=== PATIENT | female | born 1960 | race Caucasian/White ===

== ENCOUNTER 2020-07-04 00:05 | Emergency (ER) | payer OTHER ==
[2020-07-04 00:21] VITALS: BP 130/71
[2020-07-04] MEDS ORDERED: LIDOCAINE 1% 2 ML VIAL MC ONE (01:27)
[2020-07-04] MEDS ORDERED: cefTRIAXone 1 GM VIAL IM STA (01:27)
--- NOTE | 2020-07-04 01:41 | ED Physician Documentation ---
PD HPI URI - Stated complaint Stated Complaint: BACK PX/COUGH - Chief complaint Chief Complaint: Heent - History obtained from History obtained from: Patient, Family - History of Present Illness Timing - onset: How many days ago (10) Timing duration: Days (10) Timing details: Gradual onset, Still present Associated symptoms: Dry cough, Chest pain. No: Fever, Dyspnea Contributing factors: No: Sick contact Improves by: Rest Worsened by: Activity, Breathing, Position Similar symptoms before: Has not had sx before Recently seen: Not recently seen - Additional information Additional information: Previously well 60-year-old female with a history of Crohn's disease with an ileostomy in place has developed a cough for the past 10 days. She has now developed some pain in her right scapular area that is much worse with coughing and has led to some spasm of the area where she has had pain for hours. She does not feel particularly ill by her description. She states that she is been hydrating adequately, as soon as she developed the muscle spasm, she began hydrating. Review of Systems Constitutional: denies: Fever, Chills Eyes: denies: Decreased vision Ears: denies: Ear pain Nose: denies: Congestion Throat: reports: Sore throat Cardiac: reports: Chest pain / pressure. denies: Palpitations, Pedal edema, Calf pain Respiratory: reports: Cough. 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 : None HEENT: None Psych: None Musculoskeletal: None Derm: None - Past Surgical History Past Surgical History: Yes General: Bowel surgery /FLOWER PLANTER: section Derm: Other - Present Medications Home Medications: Ambulatory Orders Medication Instructions Recorded Confirmed Ascorbic Acid/Multivit-Min 1 packet PO DAILY 03/30/16 03/30/16 [Emergen-C Immune Plus Packet] Hydrocodone/Acetaminophen [[place] 1 each PO Q6H PRN #20 tablet 04/28/16 5-325 Tablet] Ondansetron HCl [Zofran] 4 mg PO Q6H PRN #20 tablet 04/28/16 Azithromycin [Zithromax] 250 mg PO DAILY #6 tablet 07/04/20 - Allergies Allergies/Adverse Reactions: Allergies Allergy/AdvReac Type Severity Reaction Status Date / Time Penicillins Allergy Anaphylaxis Verified 07/04/20 00:21 - Social History Does the pt smoke?: No Smoking Status: Never smoker Does the pt drink ETOH?: Yes Does the pt have substance abuse?: No - Immunizations Immunizations are current?: No Immunizations: TDAP >10years/unknown - POLST Patient has POLST: No PD ED PE NORMAL - Vitals Vital signs reviewed: Yes (Normal) - General General: Alert and oriented X 3, No acute distress, Well developed/nourished - HEENT HEENT: Atraumatic, PERRL, EOMI, Ears normal, Moist mucous membranes, Other (Petechiae to the soft palate) - Neck Neck: Supple, no meningeal sign, No bony TTP - Cardiac Cardiac: RRR, No murmur - Respiratory Respiratory: No respiratory distress, Clear bilaterally - Abdomen Abdomen: Soft, Non tender, Other (There is an ostomy in place and no tenderness to the abdomen) - Back Back: No CVA TTP, No spinal TTP - Derm Derm: Normal color, Warm and dry - Extremities Extremities: No deformity, No edema - Neuro Neuro: Alert and oriented X 3, material checker 2-12 intact, No motor deficit, No sensory deficit, Normal speech Eye Opening: Spontaneous Motor: Obeys Commands Verbal: Oriented GCS Score: 15 - Psych Psych: Normal mood, Normal affect Results - Vitals Vitals: Vital Signs - 24 hr 07/04/20 07/04/20 07/04/20 00:19 01:07 01:15 Temperature 37.5 C Heart Rate 95 Respiratory 17 17 16 Rate Blood Pressure 130/71 O2 Saturation 97 07/04/20 02:07 Temperature Heart Rate Respiratory 16 Rate Blood Pressure O2 Saturation Oxygen O2 Source Room air - Rads (name of study) 2 view chest Radiology: Prelim report reviewed (Impression: Dense consolidation right middle lobe consistent with pneumonia.), EMP read indepedently, See rad report PD MEDICAL DECISION MAKING - ED course Complexity details: reviewed old records, reviewed results, re-evaluated patient, considered differential, d/w patient, d/w family ED course: 60-year-old female with history of Crohn's has pneumonia in the right middle lobe and has pain in her back as well. Her lung exam did not indicate the extent of consolidation seen on the x-ray. She is administered Rocephin 1 g IM and we will place her on a course of azithromycin. She is instructed to return to the emergency department if she has worsening of her symptoms. She will otherwise follow-up with her primary care doctor in the coming week for interval history.She is sent home with a prepack of Vicodin for exacerbation of pain in the rhomboid area.She is not currently in pain. Departure - Departure Disposition: 01 Home, Self Care Clinical Impression: Rhomboid muscle pain Pneumonia Qualifiers: Pneumonia type: due to unspecified organism Laterality: right Lung location: middle lobe of lung Qualified Code(s): J18.9 - Pneumonia, unspecified organism Condition: Stable Instructions: ED Spasm Back No Trauma, ED Pneumonia Adult Follow-Up: Amy Yancey ARNP [Primary Care Provider] - Prescriptions: Azithromycin [Zithromax] 250 mg PO DAILY #6 tablet Discharge Date/Time: 07/04/20 02:24
[2020-07-04] MEDS ORDERED: HYDROcod/ACET 5/325 Prepack 4 PO STA (01:46)
--- NOTE | 2020-07-04 07:51 | XRAY Report ---
PROCEDURE: Chest 2 View X-Ray INDICATIONS: cough right sided chest pain TECHNIQUE: 2 view(s) of the chest. COMPARISON: None. FINDINGS: Surgical changes and devices: None. Lungs and pleura: No definite pleural effusions or pneumothorax. Lungs are abnormal with the relati vely dense pneumonia right lower lobe. The right hemidiaphragm appears elevated, versus subpulmonic p leural effusion.. Mediastinum: Mediastinal contours are normal. Heart size is normal. Bones and chest wall: No suspicious bony abnormalities. Soft tissues appear unremarkable. IMPRESSION: Dense right lower lobe pneumonia with either elevation of the right hemidiaphragm or a s ubpulmonic right pleural effusion. CT scanning could be utilized to assess for pleural effusion as co uld decubitus plain films (right and left side down). CT scanning would provide a more accurate asses sment. Reviewed by: Gilbert Amaya MD on 07/04/2020 7:50 AM PDT Approved by: Gilbert Amaya MD on 07/04/2020 7:50 AM PDT Station ID: [id number]
== END 2020-07-04 02:24 | disposition home or self-care (01) ==
LOC: ED 00:05
DX: J18.9 Pneumonia, unspecified organism (principal); M79.18 Myalgia, other site; Z87.19 Personal history of other diseases of the digestive system; Z93.2 Ileostomy status
CPT/HCPCS: 71046; 96372; 99283; 99284

== ENCOUNTER 2020-07-10 15:05 | Outpatient (CLI) | payer OTHER ==
--- NOTE | 2020-07-10 16:08 | XRAY Report ---
PROCEDURE: Chest 2 View X-Ray INDICATIONS: DYSPNEA, UNSPECIFIED TECHNIQUE: 2 view(s) of the chest. COMPARISON: None. FINDINGS: Surgical changes and devices: None. Lungs and pleura: There has been a significant interval worsening in appearance of the chest. An area of dense airspace consolidation at the anterior right lower lung has become cavitary with secondary air-fluid level within the cavity. This is best seen on the lateral view. Additional alveolar infiltr ation is seen elsewhere within the right lung to a mild degree, and there is elevation of the right h emidiaphragm.. Mediastinum: Mediastinal contours are normal. Heart size is normal. Bones and chest wall: No suspicious bony abnormalities. Soft tissues appear unremarkable. IMPRESSION: Cavitary mass or pneumonia anterior right lower lung, with air fluid level within, worri some for representing a possible cavitary malignancy. Contrast-enhanced CT scanning is recommended at this time. Reviewed by: Gilbert Amaya MD on 07/10/2020 4:07 PM PDT Approved by: Gilbert Amaya MD on 07/10/2020 4:07 PM PDT Station ID: [id number]
== END 2020-07-10 15:06 | disposition home or self-care (01) ==
LOC: DI.S 15:05
PROVIDERS: ATTEND Physician Assistant
DX: R91.8 Other nonspecific abnormal finding of lung field (principal)
CPT/HCPCS: 71046

== ENCOUNTER 2020-07-10 17:21 | Emergency (ER) | payer OTHER ==
--- NOTE | 2020-07-10 17:51 | ED Physician Documentation ---
PD HPI DYSPNEA - Stated complaint Stated Complaint: SOA - Chief complaint Chief Complaint: Resp - History obtained from History obtained from: Patient - Additional information Additional information: 60-year-old woman, never a smoker. She had been having some cough and shortness of breath and was seen here a week ago. Diagnosed with pneumonia and given Zithromax. She was getting better on the Zithromax, which stopped a few days ago and now has worse shortness of breath and cough. She is feeling kind of out of it. She also notes about a 5 pound weight loss. 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 Derm: Other - Present Medications Home Medications: Ambulatory Orders Medication Instructions Recorded Confirmed Ascorbic Acid/Multivit-Min 1 packet PO DAILY 03/30/16 03/30/16 [Emergen-C Immune Plus Packet] Hydrocodone/Acetaminophen [[place] 1 each PO Q6H PRN #20 tablet 04/28/16 5-325 Tablet] Ondansetron HCl [Zofran] 4 mg PO Q6H PRN #20 tablet 04/28/16 Azithromycin [Zithromax] 250 mg PO DAILY #6 tablet 07/04/20 - Allergies Allergies/Adverse Reactions: Allergies Allergy/AdvReac Type Severity Reaction Status Date / Time Penicillins Allergy Anaphylaxis Verified 07/04/20 00:21 - Social History Does the pt smoke?: No Smoking Status: Never smoker Does the pt drink ETOH?: Yes Does the pt have substance abuse?: No - Immunizations Immunizations are current?: No Immunizations: TDAP >10years/unknown - POLST Patient has POLST: No PD ED PE NORMAL - Vitals Vital signs reviewed: Yes - General General: Alert and oriented X 3, No acute distress - HEENT HEENT: PERRL, EOMI - Neck Neck: Supple, no meningeal sign, No bony TTP - Cardiac Cardiac: RRR, No murmur - Respiratory Respiratory: No respiratory distress, Other (Crackles and Diminished at the right base) - Abdomen Abdomen: Soft, Non tender - Derm Derm: No rash - Neuro Neuro: Alert and oriented X 3, Normal speech Results - Vitals Vitals: Vital Signs - 24 hr 07/10/20 07/10/20 07/10/20 17:26 18:18 19:00 Temperature 36.3 C L Heart Rate 78 82 82 Respiratory 22 20 16 Rate Blood Pressure 85/54 L 85/74 L O2 Saturation 98 97 94 07/10/20 07/10/20 07/10/20 19:30 19:41 20:15 Temperature 36.3 C L Heart Rate 81 79 72 Respiratory 17 15 16 Rate Blood Pressure 104/64 100/58 L O2 Saturation 96 95 96 07/10/20 07/10/20 21:16 21:23 Temperature 37.4 C 37.4 C Heart Rate 84 84 Respiratory 17 17 Rate Blood Pressure 101/61 101/61 O2 Saturation 96 96 Oxygen O2 Source Room air - Labs Labs: Laboratory Tests 07/10/20 07/10/20 07/10/20 17:49 17:49 17:49 WBC 22.6 H RBC 3.59 L Hgb 9.6 L Hct 30.3 L MCV 84.4 MCH 26.7 L MCHC 31.7 L RDW 16.6 H Plt Count 501 H MPV 8.6 Neut # (Auto) Not Reportable Lymph # (Auto) Not Reportable [place] # (Auto) Not Reportable Eos # (Auto) Not Reportable Baso # (Auto) Not Reportable Absolute Nucleated RBC Not Reportable Total Counted 100 Band Neuts % (Manual) 19 H Reactive Lymphs % (Man) 1 Abnorm Lymph % (Manual) 0 Nucleated RBC % Not Reportable Neutrophils # (Manual) 21.2 H Lymphocytes # (Manual) 0.5 L Monocytes # (Manual) 0.7 Eosinophils # (Manual) 0.2 Basophils # (Manual) 0.0 Differential Comment MANUAL DIFFERENTIAL Platelet Estimate INCREASED (>450,000) Platelet Morphology NORMAL APPEARANCE RBC Morph Micro Appear NORMAL APPEARANCE Sodium 140 Potassium 3.7 Chloride 105 Carbon Dioxide 17 L Anion Gap 18.0 H BUN 13 Creatinine 0.8 Estimated GFR (MDRD) 73 L Glucose 82 Lactic Acid 0.7 Calcium 9.1 Total Bilirubin 0.4 AST 17 ALT 22 Alkaline Phosphatase 364 H Total Protein 7.1 Albumin 2.4 L Globulin 4.7 H Albumin/Globulin Ratio 0.5 L Lipase 15 L - Rads (name of study) Ct Chest Radiology: EMP read contemporaneously (Gas containing empyema of the right anterior and mid lower lung with associated pneumonia and negative). Sendy and abdominal bowel containing parastomal hernia.) PD MEDICAL DECISION MAKING - ED course ED course: Chart reViewed, she had a subsequent outpatient chest x-ray done today, ordered I presume in follow-up by her primary care physician. This demonstrated a cavitary mass or pneumonia in the anterior right lower lung with an air-fluid level within worrisome for a possible cavitary malignancy and CT was recommended and subsequently ordered. Blood pressure was on the low side and sepsis time of onset as per orders (1830), normal lactate was noted. Administered large volume IV fluids 30 mils per kilo and broad-spectrum IV antibiotics including cefepime, Flagyl, vancomycin. CT results as shown and will need transfer to a facility capable of thoracic surgery consultation and [facility] was called at approximately 7:25 PM for same. Working with Dr Coco Berrios at [facility], could not do an inpatient to inpatient transfer without a rapid COVID test which I do not have available to me and we a greed it would be reasonable to trial an ER to ER transport such that rapid COVID testing could be done at [facility]. Accepted by Dr. Ruiz to [facility] at 9:25 PM and cobras were completed. - Sepsis Event Current Stage of Sepsis: Sepsis Initial Hypotension: SBP less than 90 mmHg Possible source of Sepsis: Pulmonary Mental/Cognitive Status: Alert/Oriented X3, Normal for patient Capillary refill: Less than 2 seconds Peripheral Pulse Strength: 3+ Normal Peripheral Pulse Location: Radial Departure - Departure Disposition: 02 Transfer Acute Care Hosp Clinical Impression: Empyema lung Pneumonia Qualifiers: Pneumonia type: due to unspecified organism Laterality: right Lung location: lower lobe of lung Qualified Code(s): J18.9 - Pneumonia, unspecified organism Sepsis Qualifiers: Sepsis type: sepsis due to unspecified organism Sepsis acute organ dysfunction status: without acute organ dysfunction Qualified Code(s): A41.9 - Sepsis, unspecified organism Condition: Serious
[2020-07-10] MEDS ORDERED: IOVERSOL 320 100 ML VIAL IVP ONE ×2 (17:58→18:46)
[2020-07-10 18:01] LABS: BASOPHILS % (AUTO) 0.7 %; MEAN CORPUSCULAR VOLUME 84.4 fL (81.0-99.0); MEAN PLATELET VOLUME 8.6 fL (7.9-10.8)
[2020-07-10 18:08] LABS: EOSINOPHILS % (AUTO) 1.6 %; HGB - HEMOGLOBIN 9.6 g/dL (12.0-16.0); LYMPHOCYTES % (AUTO) 3.2 %; MEAN CORPUSCULAR HEMOGLOBIN 26.7 pg (27.0-31.0); MEAN CORPUSCULAR HGB CONC 31.7 g/dL (32.0-36.0); MONOCYTES % (AUTO) 3.4 %; NEUTROPHILS % (AUTO) 84.9 %; PLT - PLATELET COUNT 501 10^3/uL (130-450); RED BLOOD COUNT 3.59 10^6/uL (4.20-5.40); RED CELL DISTRIBUTION WIDTH 16.6 % (12.0-15.0); WHITE BLOOD COUNT 22.6 x10^3/uL (4.8-10.8)
[2020-07-10 18:14] LABS: ALBUMIN 2.4 g/dL (3.2-5.5); ALBUMIN/GLOBULIN RATIO 0.5 (1.0-2.2); BILIRUBIN,TOTAL 0.4 mg/dL (0.2-1.0); CALCIUM 9.1 mg/dL (8.5-10.3); CREATININE 0.8 mg/dL (0.4-1.0); TOTAL PROTEIN 7.1 g/dL (6.7-8.2)
[2020-07-10 18:18] LABS: ABNORMAL LYMPHS % (MANUAL) 0 %
[2020-07-10] MEDS ORDERED: metroNIDAZOLE 500 MG/100 ML 500 MG/100 ML BAG IV STA (18:24)
[2020-07-10] MEDS ORDERED: LACTATED RINGERS IV STA (18:24)
[2020-07-10] MEDS ORDERED: CEFEPIME 2 GM in SODIUM CHLORIDE 0.9% MINIBAG 100 ML IV STA (18:24)
[2020-07-10 18:45] LABS: BAND NEUTROPHILS % (MANUAL) 19 %; EOSINOPHILS # (MANUAL) 0.2 10^3/uL (0-0.7); LYMPHOCYTES # (MANUAL) 0.5 10^3/uL (1.5-3.5); LYMPHOCYTES % (MANUAL) 1 %; MONOCYTES # (MANUAL) 0.7 10^3/uL (0.0-1.0)
[2020-07-10 18:46] LABS: DIFFERENTIAL COMMENT MANUAL DIFFERENTIAL; PLATELET ESTIMATE, MANUAL INCREASED (>450,000) (NORMAL); PLATELET MORPHOLOGY NORMAL APPEARANCE (NORMAL); RBC MORPHOLOGY (MULTIPLE) NORMAL APPEARANCE (NORMAL)
[2020-07-10] MEDS ORDERED: VANCOMYCIN INJ 1 GM in SODIUM CHLORIDE 0.9% 500 ML IV STA (18:51)
--- NOTE | 2020-07-10 19:09 | CT Report ---
PROCEDURE: CHEST W INDICATIONS: abd cxr CONTRAST: IV CONTRAST: Optiray 320 ml: 100 PO CONTRAST: *NO PO CONTRAST TECHNIQUE: After the administration of intravenous contrast, 5 mm thick sections acquired from the pulmonary api lupe to the posterior costophrenic angles. 7 mm thick coronal MIP reformats were acquired. For radia tion dose reduction, the following was used: automated exposure control, adjustment of mA and/or kV according to patient size. COMPARISON: None. FINDINGS: Image quality: Excellent. Lungs and pleura: There is a peripherally enhancing, loculated pleural fluid collection anteriorly in the right mid and lower lung as well as fluid distending the right major fissure. There are numerous foci of gas within this fluid collection. There is associated consolidation of the right middle lobe and patchy alveolar opacity in the right lower lobe. A small amount of pleural fluid is present post eriorly and medially in the right hemithorax. Trace atelectasis at the extreme left lung base. Left l dennys is otherwise clear. Mediastinum: Heart size is normal. No pericardial effusion. There is subcarinal and right hilar ryan nopathy. Thoracic aorta and central pulmonary arteries are normal in size. Esophagus is normal in c aliber. No hiatal hernia. Bones and chest wall: No suspicious bony lesions. No vertebral body compression fractures. No axil ezequiel or supraclavicular adenopathy by size criteria. Thyroid gland is normal. Abdomen: Visualized upper abdomen demonstrates possible, partially visualized right abdominal parast omal hernia containing bowel. Upper abdominal organs are otherwise normal. IMPRESSION: 1. There is a loculated, gas containing empyema in the right anterior mid and lower lung with associa pedro pneumonia. 2. Reactive mediastinal and right hilar adenopathy. 3. Partially imaged possible right abdominal bowel containing parastomal hernia. Correlate clinically Reviewed by: Tasha Kirk MD on 07/10/2020 7:08 PM PDT Approved by: Tasha Kirk MD on 07/10/2020 7:08 PM PDT Station ID: [id number]
[2020-07-10] MEDS ORDERED: VANCOMYCIN 1 GM VIAL ONE (19:33)
[2020-07-10] MEDS ORDERED: ACETAMINOPHEN 325 MG TABLET PO STA (21:40)
[2020-07-10 22:56] VITALS: BP 110/67
== END 2020-07-10 22:57 | disposition short-term general hospital (02) ==
LOC: ED 17:21
DX: J43.9 Emphysema, unspecified (principal); J18.9 Pneumonia, unspecified organism; A41.9 Sepsis, unspecified organism; K43.5 Parastomal hernia without obstruction or gangrene; R91.8 Other nonspecific abnormal finding of lung field
CPT/HCPCS: 36415; 71046; 71260; 80053; 83605; 83690; 85025; 87040; 96365; 96366; 96375; 99285; A9270; J3370; J7120; Q9967

== ENCOUNTER 2021-12-09 13:50 | Outpatient (CLI) | payer OTHER ==
[2021-12-09] MEDS ORDERED: IOVERSOL 320 100 ML VIAL IVP ONE ×2 (14:12→15:39)
[2021-12-09] MEDS ORDERED: IOPAMIDOL-300 50 ML VIAL ONE (14:12)
[2021-12-09 14:22] LABS: CREATININE 0.6 mg/dL (0.4-1.0)
[2021-12-09] MEDS ORDERED: IOPAMIDOL-300 50 ML VIAL PO ONE (15:39)
--- NOTE | 2021-12-09 19:04 | CT Report ---
PROCEDURE: CT abdomen and pelvis with contrast INDICATIONS: Stomal pain TECHNIQUE: After the administration of intravenous contrast, 5 mm thick sections acquired from the diaphragms to the symphysis. 5 mm thick coronal and sagittal reformats were acquired. For radiation dose reducti on, the following was used: automated exposure control, adjustment of mA and/or kV according to karen ent size. COMPARISON: 04/28/2016 FINDINGS: Image quality: Excellent. ABDOMEN: Lung bases: Lung bases are clear. Heart size is normal. Right middle lobe linear atelectasis or sca rring is a new from 2016. Solid organs: Liver is diffusely decreased attenuation reflecting fatty infiltration. Interpretation pancreas noted as well. Gallbladder unremarkable Biliary system is non dilated. Hodgson creas enhances normally. No adrenal nodules. Kidneys demonstrate normal size and enhancement, witho ut hydronephrosis. Peritoneum and bowel: There is a right lower quadrant ileostomy present with parastomal hernia contai pascale bowel. Bowel just proximal to the ostomy shows bowel wall thickening, similar to prior exam. No evidence of abscess or obstruction. There is been a prior colectomy. Rectal stump unremarkable. Nodes and vessels: No retroperitoneal or mesenteric adenopathy by size criteria. Aorta and inferior vena cava are normal in size. Miscellaneous: No ventral hernias. PELVIS: Genitourinary: Bladder wall thickness is normal. Miscellaneous: No inguinal hernias or adenopathy. Bones: No suspicious bony lesions. No vertebral body compression fractures. IMPRESSION: 1. Right parastomal hernia, increased in size in prior exam. The bowel wall thickening of the distalm ost bowel in the hernia sac may reflect enteritis. No abscess or obstruction. 2. Colectomy. Rectal stump unchanged 3. Hepatic and pancreatic fatty infiltration Reviewed by: Jermaine Bishop MD on 12/09/2021 6:03 PM AKST Approved by: Jermaine Bishop MD on 12/09/2021 6:03 PM AKST Station ID: [id number]
== END 2021-12-09 13:51 | disposition home or self-care (01) ==
LOC: DI 13:50
PROVIDERS: ATTEND Registered Nurse
DX: K43.5 Parastomal hernia without obstruction or gangrene (principal); K76.0 Fatty (change of) liver, not elsewhere classified; K90.3 Pancreatic steatorrhea; Z90.49 Acquired absence of other specified parts of digestive tract
CPT/HCPCS: 36415; 74177; 82565; Q9967

== ENCOUNTER 2022-01-01 18:42 | Emergency (ER) | payer OTHER ==
[2022-01-01] MEDS ORDERED: HYDROmorphone 1 MG/ML CARPUJECT IVP STA ×2 (19:06→22:11)
[2022-01-01] MEDS ORDERED: ONDANSETRON 4 MG/2 ML VIAL IVP STA (19:06)
[2022-01-01] MEDS ORDERED: SODIUM CHLORIDE 0.9% 1,000 ML IV STA (19:06)
--- NOTE | 2022-01-01 19:07 | ED Physician Documentation ---
PD HPI ABD PAIN - Stated complaint Stated Complaint: N/V/D - Chief complaint Chief Complaint: Abd Pain - History obtained from History obtained from: Patient - Additional information Additional information: 61-year-old woman with longstanding history of Crohn's, initial ileostomy at the age of 13 and has had some reconstructive surgeries and also since. She has a known internal hernia based on a CT done last month and was actually scheduled to see a surgeon in [place] this week for evaluation but yesterday morning developed severe abdominal cramping and pain associated with vomiting a nd increased ileostomy output. No fevers. Pain is severe. No blood in the vomit. Review of Systems Ten Systems: 10 systems reviewed and negative Constitutional: reports: Reviewed and negative Eyes: reports: Reviewed and negative Nose: reports: Reviewed and negative Throat: reports: Reviewed and negative Cardiac: reports: Reviewed and negative PD PAST MEDICAL HISTORY - Past Medical History Cardiovascular: None Respiratory: None Neuro: None Endocrine/Autoimmune: None GI: Crohn's disease [place] ALDERMAN: None : None HEENT: None Psych: None Musculoskeletal: None Derm: None - Past Surgical History Past Surgical History: Yes General: Bowel surgery /CITY ALDERMAN: section Derm: Other - Present Medications Home Medications: Ambulatory Orders Medication Instructions Recorded Confirmed Ascorbic Acid/Multivit-Min 1 packet PO DAILY 03/30/16 03/30/16 [Emergen-C Immune Plus Packet] Hydrocodone/Acetaminophen [[place] 1 each PO Q6H PRN #20 tablet 04/28/16 5-325 Tablet] ondansetron HCL [Zofran] 4 mg PO Q6H PRN #20 tablet 04/28/16 Azithromycin [Zithromax] 250 mg PO DAILY #6 tablet 07/04/20 - Allergies Allergies/Adverse Reactions: Allergies Allergy/AdvReac Type Severity Reaction Status Date / Time Penicillins Allergy Anaphylaxis Verified 01/01/22 18:51 - Social History Does the pt smoke?: No Smoking Status: Never smoker Does the pt drink ETOH?: Yes Does the pt have substance abuse?: No - Immunizations Immunizations are current?: No Immunizations: TDAP >10years/unknown - POLST Patient has POLST: No PD ED PE NORMAL - Vitals Vital signs reviewed: Yes - General General: Alert and oriented X 3, Other (She appears uncomfortable due to pain, she is of short stature and generally thin.) - HEENT HEENT: PERRL, EOMI - Neck Neck: Supple, no meningeal sign, No bony TTP - Cardiac Cardiac: RRR, No murmur - Respiratory Respiratory: No respiratory distress, Clear bilaterally - Abdomen Abdomen: Other (Extensive abdominal healed incisions with right-sided ileostomy. Absent bowel tones and mild distended. Moderate diffuse tenderness without surgical signs.) - Derm Derm: Normal color, Warm and dry - Extremities Extremities: No edema, No calf tenderness / cord - Neuro Neuro: Alert and oriented X 3, Normal speech Results - Vitals Vitals: Vital Signs - 24 hr 01/01/22 01/01/22 01/01/22 18:46 19:23 20:26 Temperature 36.3 C L Heart Rate 91 73 Respiratory 20 18 16 Rate Blood Pressure 161/103 H 120/70 137/86 H O2 Saturation 99 98 95 01/01/22 01/02/22 22:00 00:49 Temperature Heart Rate 79 86 Respiratory 18 18 Rate Blood Pressure 157/75 H 99/66 O2 Saturation 96 97 Oxygen O2 Source Room air - Labs Labs: Laboratory Tests 01/01/22 01/01/22 01/01/22 19:21 19:21 19:21 WBC 5.8 RBC 4.26 Hgb 13.2 Hct 38.8 MCV 91.1 MCH 31.0 MCHC 34.0 RDW 13.4 Plt Count 289 MPV 8.9 Neut # (Auto) Not Reportable Lymph # (Auto) Not Reportable [place] # (Auto) Not Reportable Eos # (Auto) Not Reportable Baso # (Auto) Not Reportable Absolute Nucleated RBC Not Reportable Total Counted 100 Band Neuts % (Manual) 66 H Abnorm Lymph % (Manual) 0 Metamyelocytes % 1 H Nucleated RBC % Not Reportable Neutrophils # (Manual) 5.3 Lymphocytes # (Manual) 0.1 L Monocytes # (Manual) 0.3 Eosinophils # (Manual) 0.1 Basophils # (Manual) 0.0 Differential Comment MANUAL DIFFERENTIAL Platelet Estimate NORMAL (130-450,000) Platelet Morphology NORMAL APPEARANCE RBC Morph Micro Appear NORMAL APPEARANCE Sodium 137 Potassium 3.6 Chloride 98 L Carbon Dioxide 25 Anion Gap 14.0 H BUN 16 Creatinine 0.5 Estimated GFR (MDRD) 125 Glucose 134 H Lactic Acid 0.8 Calcium 9.0 Total Bilirubin 1.3 H AST 34 ALT 38 Alkaline Phosphatase 97 Total Protein 7.2 Albumin 3.8 Globulin 3.4 Albumin/Globulin Ratio 1.1 Lipase 21 L SARS-CoV-2 (PCR) 01/01/22 21:10 WBC RBC Hgb Hct MCV MCH MCHC RDW Plt Count MPV Neut # (Auto) Lymph # (Auto) [place] # (Auto) Eos # (Auto) Baso # (Auto) Absolute Nucleated RBC Total Counted Band Neuts % (Manual) Abnorm Lymph % (Manual) Metamyelocytes % Nucleated RBC % Neutrophils # (Manual) Lymphocytes # (Manual) Monocytes # (Manual) Eosinophils # (Manual) Basophils # (Manual) Differential Comment Platelet Estimate Platelet Morphology RBC Morph Micro Appear Sodium Potassium Chloride Carbon Dioxide Anion Gap BUN Creatinine Estimated GFR (MDRD) Glucose Lactic Acid Calcium Total Bilirubin AST ALT Alkaline Phosphatase Total Protein Albumin Globulin Albumin/Globulin Ratio Lipase SARS-CoV-2 (PCR) NOT DETECTED PD MEDICAL DECISION MAKING - ED course ED course: 61-year-old woman with Crohn's status post remote ileostomy has a known hernia and now presents with severe abdominal pain starting yesterday with vomiting. She was sent over for CT and on my "wet read" it looks like the peristomal hernia is incarcerated with a subsequent bowel obstruction. Labs are notable for a white count of 5.8 but with 66% bands. Generally otherwise unremarkable. I spoke with our on-call surgeon but noting that our operating room is closed due to staffing shortage is and he agrees she probably needs transfer. An NG tube was ordered. Noted and discussed her white count which is normal but significant bandemia with Dr. Gutierrez, would hold off on antibiotics per him for now. She was unable to tolerate NG tube placement I spoke with Dr. Arnoldo Patel at [place] who said that [facility] was fine from a insurance/network standpoint, and sounds like they may have an open bed. I spoke with Dr. Rodriguez, on-call general surgeon in [facility], she will see the patient but given the CT read, which formally does not necessarily show a bowel obstruction, defers to medicine for admission. Care to overnight EDMD at shift change pending acceptance for xfer. Departure - Departure Disposition: 02 Transfer Acute Care Hosp Clinical Impression: Acute Crohn's disease, Vomiting Condition: Serious Discharge Date/Time: 01/02/22 01:48
[2022-01-01] MEDS ORDERED: IOVERSOL 320 100 ML VIAL IVP ONE ×2 (19:27→20:56)
[2022-01-01] MEDS ORDERED: IOVERSOL 320 50 ML VIAL ONE (19:27)
[2022-01-01 19:33] LABS: BASOPHILS % (AUTO) 0.7 %; EOSINOPHILS % (AUTO) 0.3 %; HCT - HEMATOCRIT 38.8 % (37.0-47.0); HGB - HEMOGLOBIN 13.2 g/dL (12.0-16.0); LYMPHOCYTES % (AUTO) 3.3 %; MEAN CORPUSCULAR VOLUME 91.1 fL (81.0-99.0); MEAN PLATELET VOLUME 8.9 fL (7.9-10.8); MONOCYTES % (AUTO) 7.8 %; NEUTROPHILS % (AUTO) 87.6 %; PLT - PLATELET COUNT 289 10^3/uL (130-450); RED BLOOD COUNT 4.26 10^6/uL (4.20-5.40); RED CELL DISTRIBUTION WIDTH 13.4 % (12.0-15.0); WHITE BLOOD COUNT 5.8 x10^3/uL (4.8-10.8)
[2022-01-01 19:36] LABS: ABNORMAL LYMPHS % (MANUAL) 0 %
[2022-01-01 19:40] LABS: ALBUMIN 3.8 g/dL (3.2-5.5); ALBUMIN/GLOBULIN RATIO 1.1 (1.0-2.2); BILIRUBIN,TOTAL 1.3 mg/dL (0.2-1.0); CREATININE 0.5 mg/dL (0.4-1.0); POTASSIUM 3.6 mmol/L (3.5-5.0); TOTAL PROTEIN 7.2 g/dL (6.7-8.2)
[2022-01-01 20:09] LABS: BAND NEUTROPHILS % (MANUAL) 66 %; DIFFERENTIAL COMMENT MANUAL DIFFERENTIAL; EOSINOPHILS # (MANUAL) 0.1 10^3/uL (0-0.7); LYMPHOCYTES # (MANUAL) 0.1 10^3/uL (1.5-3.5); LYMPHOCYTES % (MANUAL) 2 %; METAMYELOCYTES % (MANUAL) 1 %; MONOCYTES # (MANUAL) 0.3 10^3/uL (0.0-1.0); NEUTROPHILS # (MANUAL) 5.3 10^3/uL (1.5-6.6); PLATELET ESTIMATE, MANUAL NORMAL (130-450,000) (NORMAL); PLATELET MORPHOLOGY NORMAL APPEARANCE (NORMAL); RBC MORPHOLOGY (MULTIPLE) NORMAL APPEARANCE (NORMAL)
[2022-01-01] MEDS ORDERED: METOCLOPRAMIDE 10 MG/2 ML VIAL IVP STA (20:28)
[2022-01-01] MEDS ORDERED: PROCHLORPERAZINE 10 MG/2 ML VIAL IVP STA (20:55)
[2022-01-01] MEDS ORDERED: IOVERSOL 320 50 ML VIAL PO ONE (20:57)
--- NOTE | 2022-01-01 21:14 | CT Report ---
PROCEDURE: Abdomen/Pelvis W INDICATIONS: IV an PO, abd pain, crohns, CONTRAST: IV CONTRAST: Optiray 320 ml: 100 PO CONTRAST: Optiray 320 ml50 TECHNIQUE: After the administration of contrast, 5 mm thick sections acquired from the diaphragms to the sym physis. 5 mm thick coronal and sagittal reformats were acquired. For radiation dose reduction, the following was used: automated exposure control, adjustment of mA and/or kV according to patient size . COMPARISON: Prior CT abdomen/pelvis 12/09/2021 and 04/28/2016. FINDINGS: Image quality: Excellent. ABDOMEN: Lung bases: Lung bases are clear. Heart size is normal. There is a [id number] sized hiatal hernia with esophageal oral contrast present to a greater degree than is generally seen. Solid organs: Liver and spleen are normal in size and enhancement. Gallbladder appears normal Bili mackenzie system is non dilated. Pancreas enhances normally. No adrenal nodules. Kidneys demonstrate nor mal size and enhancement, without hydronephrosis. Peritoneum and bowel: Bowel loops demonstrate normal wall thickness and caliber over much of the abd omen and pelvis, and there is a right potentially a manifestation of mild Crohn's disease involving t he distal small bowel to the skin surface.. No free fluid or air. Nodes and vessels: No retroperitoneal or mesenteric adenopathy by size criteria. Aorta and inferior vena cava are normal in size. Miscellaneous: No ventral hernias. PELVIS: Genitourinary: Bladder wall thickness is normal. Miscellaneous: No inguinal hernias or adenopathy. Mild small bowel fluid prominence is present exte nding from the abdomen into the pelvis. Bones: No suspicious bony lesions. No vertebral body compression fractures. IMPRESSION: 1. Mild to moderate hiatal hernia. Oral contrast within the esophagus is somewhat greater than is gen erally seen. This can reflect reflux, or poor antegrade flow of ingested oral material into the small bowel. 2. The small bowel appears somewhat prominent in its fluid content, and is mildly prominent in overal l caliber, measuring up to 2.9-3.1 cm in maximal axial dimension. At the right mid abdomen there is a bowel ostomy site which demonstrates distal mural thickening of the bowel, presumably small bowel, i ndicating potential for Crohn's disease active inflammation in that distal segment of the bowel in th is clinical circumstance. A mechanical obstruction at this time is not seen. No sign of bowel perfora tion. No abscess or fistula seen. Reviewed by: Gilbert Amaya MD on 01/01/2022 9:13 PM PST Approved by: Gilbert Amaya MD on 01/01/2022 9:13 PM PST Station ID: [id number]
--- NOTE | 2022-01-01 22:39 | ED Physician Documentation ---
ED Addendum - Addendum Addendum: [id number]: Juni CEDENO called back. [facility] does not have any medical beds available. It is agreed that the patient still requires admission although does not appear she needs emergent surgical intervention. Juni will continue to call other facilities. 01/01/22 22:38 01/01/22 23:47 Patient has been accepted to [facility] by Dr. Sabas Lomeli. Patient is agreeable to transfer to this facility. Her pain and nausea have improved. She does have mild tenderness on exam to her right abdomen. 01/02/22 01:32 Transport here for patient. Patient appears stable for Transport to [place].
[2022-01-02 00:50] VITALS: BP 99/66
== END 2022-01-02 01:48 | disposition short-term general hospital (02) ==
LOC: ED 18:42
DX: K46.0 Unspecified abdominal hernia with obstruction, without gangrene (principal); K50.90 Crohn's disease, unspecified, without complications
CPT/HCPCS: 36415; 74177; 80053; 83605; 83690; 85025; 87635; 96361; 96374; 96375; 99284; 99285; J1170; J2765; Q9967

== ENCOUNTER 2022-02-21 14:48 | Outpatient (CLI) | payer OTHER ==
[2022-02-23 09:42] LABS: HEPATITIS B SURFACE ANTIGEN NON-REACTIVE (NON-REACTIVE)
== END 2022-02-21 14:49 | disposition home or self-care (01) ==
LOC: LAB.S 14:48
PROVIDERS: ATTEND Internal Medicine Gastroenterology
DX: K50.00 Crohn's disease of small intestine without complications (principal)
CPT/HCPCS: 36415; 81335; 81599; 86317; 86480; 86704; 87340

== ENCOUNTER 2022-02-22 14:49 | Outpatient (CLI) | payer OTHER ==
--- NOTE | 2022-02-22 19:27 | XRAY Report ---
PROCEDURE: Chest 2 View X-Ray INDICATIONS: COUGH TECHNIQUE: 2 view(s) of the chest. COMPARISON: Prior chest radiograph dated 07/10/2020. FINDINGS: Surgical changes and devices: None. Lungs and pleura: No pleural effusions or pneumothorax. Lungs are clear. Elevation right hemidiaphr agm. Mediastinum: Mediastinal contours are normal. Heart size is normal. Bones and chest wall: No suspicious bony abnormalities. Soft tissues appear unremarkable. IMPRESSION: Chronic elevation right hemidiaphragm; otherwise no acute cardiopulmonary disease. Reviewed by: AUGUSTINE Noel on 02/22/2022 7:25 PM PDT Approved by: Vidhya Zelaya MD on 02/22/2022 7:25 PM PDT Station ID: [id number]
== END 2022-02-22 14:50 | disposition home or self-care (01) ==
LOC: DI.S 14:49
PROVIDERS: ATTEND Physician Assistant
DX: R05.9 Cough, unspecified (principal); J98.6 Disorders of diaphragm

== ENCOUNTER 2022-02-22 14:51 | Outpatient (CLI) | payer OTHER ==
[2022-02-25 13:36] LABS: NIL 0.04 IU/mL; TB2-NIL <0.00 IU/mL
== END 2022-02-22 14:52 | disposition home or self-care (01) ==
LOC: LAB.S 14:51
PROVIDERS: ATTEND Physician Assistant
DX: K50.00 Crohn's disease of small intestine without complications (principal)
CPT/HCPCS: 36415; 86480

== ENCOUNTER 2022-03-07 13:27 | Outpatient (CLI) | payer OTHER | END 2022-03-07 13:28 | disposition home or self-care (01) | LOC: LAB 13:27 | PROVIDERS: ATTEND Internal Medicine Gastroenterology | DX: K50.00 Crohn's disease of small intestine without complications (principal) | CPT/HCPCS: 81599; 82657 ==

== ENCOUNTER 2022-07-07 11:16 | Outpatient (CLI) | payer OTHER ==
[2022-07-07 15:34] LABS: BASOPHILS # (AUTO) 0.1 10^3/uL (0.0-0.1); BASOPHILS % (AUTO) 1.4 %; EOSINOPHILS # (AUTO) 0.1 10^3/uL (0.0-0.7); EOSINOPHILS % (AUTO) 1.2 %; HCT - HEMATOCRIT 39.4 % (37.0-47.0); HGB - HEMOGLOBIN 13.2 g/dL (12.0-16.0); LYMPHOCYTES # (AUTO) 1.1 10^3/uL (1.5-3.5); LYMPHOCYTES % (AUTO) 23.3 %; MEAN CORPUSCULAR HEMOGLOBIN 31.1 pg (27.0-31.0); MEAN CORPUSCULAR HGB CONC 33.5 g/dL (32.0-36.0); MEAN CORPUSCULAR VOLUME 92.7 fL (81.0-99.0); MONOCYTES # (AUTO) 0.3 10^3/uL (0.0-1.0); MONOCYTES % (AUTO) 6.2 %; NEUTROPHILS # (AUTO) 3.3 10^3/uL (1.5-6.6); NEUTROPHILS % (AUTO) 67.7 %; PLT - PLATELET COUNT 318 10^3/uL (130-450); RED BLOOD COUNT 4.25 10^6/uL (4.20-5.40); WHITE BLOOD COUNT 4.8 x10^3/uL (4.8-10.8)
[2022-07-07 17:08] LABS: ALBUMIN 4.1 g/dL (3.2-5.5); ALBUMIN/GLOBULIN RATIO 1.2 (1.0-2.2); ALKALINE PHOSPHATASE 74 IU/L (42-121); ALT ALANINE AMINOTRANSFERASE 24 IU/L (10-60); AST ASPARTATE AMINOTRANSFERASE 23 IU/L (10-42); BILIRUBIN,TOTAL 0.5 mg/dL (0.2-1.0); BUN - BLOOD UREA NITROGEN 17 mg/dL (6-20); CALCIUM 10.6 mg/dL (8.5-10.3); CARBON DIOXIDE - CO2 22 mmol/L (21-32); CHLORIDE 105 mmol/L (101-111); CREATININE 0.8 mg/dL (0.4-1.0); GFR - MDRD 73 (>89); GLUCOSE 103 mg/dL (70-100); POTASSIUM 4.3 mmol/L (3.5-5.0); SODIUM 139 mmol/L (135-145); TOTAL PROTEIN 7.4 g/dL (6.7-8.2)
[2022-07-07 17:09] LABS: CRP - C-REACTIVE PROTEIN < 1.0 mg/dL (0-1.0)
== END 2022-07-07 11:17 | disposition home or self-care (01) ==
LOC: LAB.S 11:16
PROVIDERS: ATTEND Internal Medicine Gastroenterology
DX: K50.00 Crohn's disease of small intestine without complications (principal)
CPT/HCPCS: 36415; 80053; 85025; 86140

== ENCOUNTER 2022-08-21 16:29 | Emergency (ER) | payer OTHER ==
[2022-08-21] MEDS ORDERED: ONDANSETRON 4 MG/2 ML VIAL IVP STA (16:53)
[2022-08-21] MEDS ORDERED: MORPHINE 2 MG/ML CARPUJECT IVP STA (16:53)
--- NOTE | 2022-08-21 16:57 | ED Physician Documentation ---
PD HPI ABD PAIN - Stated complaint Stated Complaint: ABD PX/NAUSEA/VOMITING/COLD - Chief complaint Chief Complaint: Abd Pain - History obtained from History obtained from: Patient, Family - History of Present Illness Quality: Cramping, Aching, Pain Location: All over / everywhere Associated symptoms: Nausea, Vomiting. No: Fever, Melena, Hematochezia, Dysuria - Additional information Additional information: 62-year-old female presents to the emergency department complaining of abdominal pain and vomiting today. She has a longstanding history of Crohn's disease. Has a history of an ileostomy since age 13. She states that she had an infusion for her Crohn's disease yesterday and then began vomiting today. No fevers but has felt chilled. No change in her ileostomy output. She does have a known parastomal hernia. She states that it feels like her intestines are "twisting". She is also on azathioprine and dicyclomine at home. No cough, congestion. She states the last time she was on steroids for her Crohn's disease was about a month ago. Nothing makes it better or worse. 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 : None HEENT: None Psych: None Musculoskeletal: None Derm: None - Past Surgical History Past Surgical History: Yes General: Bowel surgery /CLOTHING AND TEXTILES TEACHER: section Derm: Other - Present Medications Home Medications: Ambulatory Orders Medication Instructions Recorded Confirmed Ascorbic Acid/Multivit-Min 1 packet PO DAILY 03/30/16 03/30/16 [Emergen-C Immune Plus Packet] Hydrocodone/Acetaminophen [[place]mes 1 each PO Q6H PRN #20 tablet 04/28/16 5-325 Tablet] ondansetron HCL [Zofran] 4 mg PO Q6H PRN #20 tablet 04/28/16 Azithromycin [Zithromax] 250 mg PO DAILY #6 tablet 07/04/20 Ondansetron Odt [Zofran] 4 mg TL Q6H PRN #10 tablet 08/21/22 Oxycodone HCl [Roxicodone] 5 - 10 mg PO Q6H PRN #14 tablet 08/21/22 predniSONE [Deltasone] 10 mg PO [id number] #42 tab 08/21/22 - Allergies Allergies/Adverse Reactions: Allergies Allergy/AdvReac Type Severity Reaction Status Date / Time Penicillins Allergy Anaphylaxis Verified 08/21/22 16:41 - Social History Does the pt smoke?: No Smoking Status: Never smoker Does the pt drink ETOH?: Yes Does the pt have substance abuse?: No - Immunizations Immunizations are current?: No Immunizations: TDAP >10years/unknown - POLST Patient has POLST: No PD ED PE NORMAL - Vitals Vital signs reviewed: Yes - General General: Alert and oriented X 3, No acute distress - HEENT HEENT: Moist mucous membranes - Neck Neck: Supple, no meningeal sign - Cardiac Cardiac: RRR, Strong equal pulses - Respiratory Respiratory: No respiratory distress, Clear bilaterally - Abdomen Abdomen: Soft, Non distended, Other (Mild diffuse tenderness without peritoneal sign. Ileostomy in the right lower quadrant) - Derm Derm: Warm and dry - Extremities Extremities: No edema - Neuro Neuro: Alert and oriented X 3 - Psych Psych: Normal mood, Normal affect Results - Vitals Vitals: Vital Signs - 24 hr 08/21/22 08/21/22 08/21/22 16:41 17:33 18:52 Temperature 36.4 C L Heart Rate 72 56 L 78 Respiratory 24 14 18 Rate Blood Pressure 153/102 H 106/68 129/86 H O2 Saturation 97 99 100 08/21/22 19:37 Temperature Heart Rate 79 Respiratory 16 Rate Blood Pressure 148/83 H O2 Saturation 100 Oxygen O2 Source Room air - Labs Labs: Laboratory Tests 08/21/22 08/21/22 08/21/22 16:54 16:54 17:26 WBC 7.3 RBC 4.06 L Hgb 12.5 Hct 37.5 MCV 92.4 MCH 30.8 MCHC 33.3 RDW 13.3 Plt Count 314 MPV 9.0 Neut # (Auto) 6.3 Lymph # (Auto) 0.4 L [place] # (Auto) 0.4 Eos # (Auto) 0.1 Baso # (Auto) 0.1 Absolute Nucleated RBC 0.00 Nucleated RBC % 0.0 Sodium 135 Potassium 3.5 Chloride 101 Carbon Dioxide 23 Anion Gap 11.0 BUN 13 Creatinine 0.6 Estimated GFR (MDRD) 101 Glucose 99 Calcium 9.2 Total Bilirubin 0.5 AST 27 ALT 29 Alkaline Phosphatase 70 Total Protein 6.9 Albumin 3.7 Globulin 3.2 Albumin/Globulin Ratio 1.2 Lipase 24 Urine Color YELLOW Urine Clarity CLEAR Urine pH 5.5 Ur Specific [place] >=1.030 H Urine Protein NEGATIVE Urine Glucose (UA) NEGATIVE Urine Ketones NEGATIVE Urine Occult Blood NEGATIVE Urine Nitrite NEGATIVE Urine Bilirubin NEGATIVE Urine Urobilinogen 0.2 (NORMAL) Ur Leukocyte Esterase NEGATIVE Ur Microscopic Review NOT INDICATED Urine Culture Comments NOT INDICATED - Rads (name of study) CT abdomen pelvis Radiology: Final report received, EMP read contemporaneously, See rad report PD MEDICAL DECISION MAKING - ED course Complexity details: reviewed results, re-evaluated patient, considered differential, d/w patient, d/w family ED course: CT abdomen pelvis does appear to have bowel wall thickening in the parastomal hernia, but no signs of obstruction. Patient feels better after pain medications, antiemetics. Tolerating p.o. without difficulty. Given Solu- Medrol as well. We will treat as a Crohn's flare. Will place on steroids for home as well as pain medication and nausea medication. We will have her follow- up with her doctor for further care. Patient is well-appearing, nontoxic. Patient counseled regarding signs and symptoms for which I believe and urgent re-evaluation would be necessary. Patient with good understanding of and agreement to plan and is comfortable going home at this time This document was made in part using voice recognition software. While efforts are made to proofread this document, sound alike and grammatical errors may occur. Departure - Departure Disposition: 01 Home, Self Care Clinical Impression: Crohn's disease Qualifiers: Gastrointestinal tract location: unspecified location Digestive disease complication type: unspecified complication Qualified Code(s): K50.919 - Crohn's disease, unspecified, with unspecified complications Condition: Good Instructions: ED Inflam Bowel Disease Crohn Follow-Up: Amy Yancey ARNP [Primary Care Provider] - Within 1 week Prescriptions: predniSONE [Deltasone] 10 mg PO [id number] #42 tab Oxycodone HCl [Roxicodone] 5 - 10 mg PO Q6H PRN #14 tablet PRN Reason: Pain Ondansetron Odt [Zofran] 4 mg TL Q6H PRN #10 tablet PRN Reason: Nausea / Vomiting Comments: Your prescriptions were sent to [facility] in [place]. Please follow-up with your doctor for further care. Please return if you worsen. Make sure you are drinking plenty of fluids. Take all steroids until gone. Please follow-up with your doctor to discuss your Crohn's flare. Your CT scan results are below. I am prescribing a short course of narcotic pain medication for you. These are potentially dangerous and addictive medications that should be used carefully. These medications may constipate you. Take an pzuf-fbm-majzdme stool softener (docusate) twice daily with plenty of water while taking these medications. If you go 24 hours without a bowel movement, take [id number] miralax, per package instructions. Do not drink or drive while taking these medications. If you received narcotic or sedating medications while in the emergency department, do not drive for 24 hours. Store this medication in a safe, secure place and out of reach of children. It is a violation of federal law to give or sell this medication to another person or to use in a manner other than prescribed. The ED will not refill narcotic prescriptions, including prescriptions lost or stolen. To dispose of unwanted medications: 1. [facility] [address] in [place] has a medication drop box. They accept prescription medications (in pill form) Monday through Monday 9:00 a.m. to 5:00 p.m. 2. The [facility] [employer] accepts prescription medications (in pill form only) for disposal year round. Call for more information. 3. Contact the [facility] for the next [facility] sponsored prescription drug collection event. , [phone], or [phone]; ABDOMEN: Lung bases: Lung bases are clear. Heart size is normal. Eventration of the right hemidiaphragm. Solid organs: Liver and spleen are normal in size and enhancement. Gallbladder is unremarkable. Biliary system is non dilated. Diffuse fatty atrophy of the pancreas. No adrenal nodules. Kidneys demonstrate normal size and enhancement, without hydronephrosis. Peritoneum and bowel: Again noted is the presence of an ileostomy. The loop of ileum which travels through the abdominal wall defect to the stoma is more abnormal than on the previous study, with diffuse wall thickening, most notably as it enters the stoma. Small bowel is otherwise unremarkable. Subtotal colectomy. Nodes and vessels: No retroperitoneal or mesenteric adenopathy by size criteria. Aorta and inferior vena cava are normal in size. Miscellaneous: No ventral hernias. PELVIS: Genitourinary: Bladder wall thickness is normal. Miscellaneous: No inguinal hernias or adenopathy. Bones: No suspicious bony lesions. No vertebral body compression fractures. IMPRESSION: 1. Remote subtotal colectomy and ileostomy. 2. The loop of ileum which has herniated through the ileostomy defect in the abdominal wall has increased abnormal appearance compared to previously. This may simply be secondary to Crohn's involvement with this segment of bowel. The remainder of the small bowel is unremarkable Discharge Date/Time: 08/21/22 19:39
[2022-08-21 17:14] LABS: ALBUMIN 3.7 g/dL (3.2-5.5); ALBUMIN/GLOBULIN RATIO 1.2 (1.0-2.2); BILIRUBIN,TOTAL 0.5 mg/dL (0.2-1.0); CALCIUM 9.2 mg/dL (8.5-10.3); CREATININE 0.6 mg/dL (0.4-1.0); POTASSIUM 3.5 mmol/L (3.5-5.0); TOTAL PROTEIN 6.9 g/dL (6.7-8.2)
[2022-08-21 17:18] LABS: BASOPHILS # (AUTO) 0.1 10^3/uL (0.0-0.1); BASOPHILS % (AUTO) 0.7 %; EOSINOPHILS # (AUTO) 0.1 10^3/uL (0.0-0.7); EOSINOPHILS % (AUTO) 0.8 %; HCT - HEMATOCRIT 37.5 % (37.0-47.0); HGB - HEMOGLOBIN 12.5 g/dL (12.0-16.0); LYMPHOCYTES # (AUTO) 0.4 10^3/uL (1.5-3.5); LYMPHOCYTES % (AUTO) 5.9 %; MEAN CORPUSCULAR HEMOGLOBIN 30.8 pg (27.0-31.0); MEAN CORPUSCULAR HGB CONC 33.3 g/dL (32.0-36.0); MEAN CORPUSCULAR VOLUME 92.4 fL (81.0-99.0); MONOCYTES # (AUTO) 0.4 10^3/uL (0.0-1.0); NEUTROPHILS # (AUTO) 6.3 10^3/uL (1.5-6.6); NEUTROPHILS % (AUTO) 86.2 %; PLT - PLATELET COUNT 314 10^3/uL (130-450); RED BLOOD COUNT 4.06 10^6/uL (4.20-5.40); RED CELL DISTRIBUTION WIDTH 13.3 % (12.0-15.0); WHITE BLOOD COUNT 7.3 x10^3/uL (4.8-10.8)
[2022-08-21 17:40] LABS: BILIRUBIN,URINE NEGATIVE (NEGATIVE); GLUCOSE, URINE (UA) NEGATIVE (NEGATIVE); KETONES,URINE (UA) NEGATIVE (NEGATIVE); LEUKOCYTE ESTERASE, URINE NEGATIVE (NEGATIVE); NITRITE,URINE NEGATIVE (NEGATIVE); OCCULT BLOOD,URINE NEGATIVE (NEGATIVE); PH,URINE 5.5 PH (5.0-7.5); PROTEIN,URINE NEGATIVE (NEGATIVE); UROBILINOGEN,URINE 0.2 (NORMAL) E.U./dL (NORMAL)
[2022-08-21 17:45] LABS: CLARITY,URINE CLEAR (CLEAR)
[2022-08-21] MEDS ORDERED: iohexoL-300 100 ML VIAL ONE (17:54)
[2022-08-21] MEDS ORDERED: iohexoL-300 100 ML VIAL IVP ONE (18:19)
--- NOTE | 2022-08-21 18:31 | CT Report ---
PROCEDURE: ABDOMEN/PELVIS W INDICATIONS: diffuse abd pain, vomiting, h/o crohn's, ileostomy CONTRAST: 90ml omni 300 TECHNIQUE: After the administration of intravenous contrast, 5 mm thick sections acquired from the diaphragms to the symphysis. 5 mm thick coronal and sagittal reformats were acquired. For radiation dose reducti on, the following was used: automated exposure control, adjustment of mA and/or kV according to karen ent size. COMPARISON: 01/01/2022 FINDINGS: Image quality: Excellent. ABDOMEN: Lung bases: Lung bases are clear. Heart size is normal. Eventration of the right hemidiaphragm. Solid organs: Liver and spleen are normal in size and enhancement. Gallbladder is unremarkable. Bi liary system is non dilated. Diffuse fatty atrophy of the pancreas. No adrenal nodules. Kidneys demo nstrate normal size and enhancement, without hydronephrosis. Peritoneum and bowel: Again noted is the presence of an ileostomy. The loop of ileum which travels th rough the abdominal wall defect to the stoma is more abnormal than on the previous study, with diffus e wall thickening, most notably as it enters the stoma. Small bowel is otherwise unremarkable. Subtot al colectomy. Nodes and vessels: No retroperitoneal or mesenteric adenopathy by size criteria. Aorta and inferior vena cava are normal in size. Miscellaneous: No ventral hernias. PELVIS: Genitourinary: Bladder wall thickness is normal. Miscellaneous: No inguinal hernias or adenopathy. Bones: No suspicious bony lesions. No vertebral body compression fractures. IMPRESSION: 1. Remote subtotal colectomy and ileostomy. 2. The loop of ileum which has herniated through the ileostomy defect in the abdominal wall has incre ased abnormal appearance compared to previously. This may simply be secondary to Crohn's involvement with this segment of bowel. The remainder of the small bowel is unremarkable. Reviewed by: Jose Chavez MD on 08/21/2022 6:30 PM PDT Approved by: Jose Chavez MD on 08/21/2022 6:30 PM PDT Station ID: [id number]
[2022-08-21] MEDS ORDERED: methylPREDNISolone SUCCINATE 125 MG/2 ML VIAL IVP STA (18:35)
[2022-08-21] MEDS ORDERED: oxyCODONE/ACET 5/325 Prepack 4 PO STA (19:21)
[2022-08-21] MEDS ORDERED: ONDANSETRON ODT 4 MG Prepack 2 TL PRN (19:21)
[2022-08-21 19:39] VITALS: BP 148/83
== END 2022-08-21 19:39 | disposition home or self-care (01) ==
LOC: ED 16:29
DX: K43.5 Parastomal hernia without obstruction or gangrene (principal); K50.919 Crohn's disease, unspecified, with unspecified complications
CPT/HCPCS: 36415; 74177; 80053; 81003; 83690; 85025; 96374; 96375; 99284; Q9967; 81001; 87086

== ENCOUNTER 2023-01-06 08:47 | Emergency (ER) | payer OTHER ==
--- OUTSIDE RECORDS SUMMARY | 2023-01-06 09:09 | EXTERNAL MEDICAL SUMMARY RPT | Continuity of Care Document ---
:1960 Author Organization [facility] Address [address] [place] [address] Phone Care Team Providers Name Role Phone Unavailable Unavailable Unavailable Kervin Benedict, Nanci Unavailable Unavailable Allergies No information. Encounters No information. Functional Status No information. Immunizations No information. Medications date description facility 2022-10-24 00:00 [email or web address] [facility] 2022-10-25 00:00 dicyclomine [facility] 2022-10-24 00:00 azithromycin [facility] 2022-10-24 00:00 azathioprine [facility] 2022-10-25 00:00 azathioprine [facility] 2022-10-24 00:00 [id number] [facility] 2022-10-24 00:00 azathioprine [facility] 2022-10-25 00:00 azathioprine [facility] 2022-10-24 00:00 hydrocortisone [facility] 2022-10-25 00:00 hydrocortisone [facility] 2022-10-24 00:00 azithromycin [facility] 2022-10-24 00:00 [id number] [facility] 2022-10-24 00:00 hydrocortisone [facility] 2022-10-25 00:00 hydrocortisone [facility] 2022-10-24 00:00 dicyclomine [facility] 2022-10-25 00:00 dicyclomine [facility] 2022-10-24 00:00 azithromycin [facility] 2022-10-24 00:00 azithromycin [facility] 2022-10-24 00:00 hydrocortisone [facility] 2022-10-25 00:00 hydrocortisone [facility] 2022-10-24 00:00 dicyclomine [facility] 2022-10-25 00:00 dicyclomine [facility] 2022-10-24 00:00 [id number]-ih [facility] 2022-10-24 00:00 azathioprine [facility] 2022-10-25 00:00 azathioprine [facility] 2022-10-24 00:00 pygdaczg-syxpsgilw-ae [facility] [place] 2022-10-24 00:00 hydrocortisone [facility] 2022-10-25 00:00 hydrocortisone [facility] 2022-10-24 00:00 dicyclomine [facility] [place] 2022-10-25 00:00 dicyclomine [facility] [place] 2022-10-24 00:00 azathioprine [facility] [place] 2022-10-25 00:00 azathioprine [facility] [place] Problems date description facility 2022-10-24 00:00 Acute suppurative otitis media [facility] 2022-10-24 00:00 Acute otitis externa [facility] 2022-10-24 00:00 Acute swimmers' ear Walk[facility]In Clinic [facility] C beatrice 2022-10-24 00:00 Acute suppurative otitis media [facility] Care & without spontaneous rupture of ear [facility] [place] 2022-10-24 00:00 Unspecified acute noninfective [facility] Primary Care & otitis externa, right ear [facility] 2022-10-24 00:00 Acute suppurative otitis media [facility] & without spontaneous rupture of ear [facility] [place] drum, right ear Procedures date description facility 2022-10-24 00:00 Visit Code Hold [facility] Results/Labs No information. Social History date description facility 2022-10-24 00:00 Never smoker [facility] [place] Vital Signs date measurement value units 2022-10-24 00:00 BMI 20.07 kg/m2 2022-10-24 00:00 BP_diastolic 80 mmHg 2022-10-24 00:00 BP_systolic 165 mmHg 2022-10-24 00:00 heart_rate 68 /min 2022-10-24 00:00 height_metric 149.86 cm 2022-10-24 00:00 height_standard 59 in 2022-10-24 00:00 respiration_rate 14 /min 2022-10-24 00:00 temperature_metric 36.44 C 2022-10-24 00:00 temperature_standard 97.6 F 2022-10-24 00:00 weight_metric 44.91 kg 2022-10-24 00:00 weight_standard 99 lb
--- NOTE | 2023-01-06 09:14 | ED Physician Documentation ---
PD HPI NVD - Stated complaint Stated Complaint: COLD CHILLS/VOMITING - Chief complaint Chief Complaint: Abd Pain - History obtained from History obtained from: Patient - History of Present Illness Timing - onset: Last night (The patient had onset of nausea and vomiting repetitively last evening/last night that has continued into today. She has a feeling of abdominal bloating. She is 10 days post laparoscopic [facility] ileostomy hernia repair. No fevers.), Yesterday Timing - duration: Hours (12) Timing - details: Abrupt onset, Still present Associated symptoms: Abdominal pain (generalized with some bloating. She states was having normal ileostomy output post-op until last night, with much less out overnight.), Loss of appetite. No: Fever Contributing factors: No: Sick contact, Recent antibiotics Recently seen: Surgery (12/27 for hernia repair around ileostomy, done lap aroscopically.) Review of Systems Constitutional: denies: Fever, Chills Nose: denies: Rhinorrhea / runny nose, Congestion Throat: denies: Sore throat Respiratory: denies: Cough GI: reports: Abdominal Pain, Abdominal Swelling, Nausea, Vomiting. 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 : None HEENT: None Psych: None Musculoskeletal: None Derm: None - Past Surgical History Past Surgical History: Yes General: Bowel surgery /ENVIRONMENTAL ENGINEER SCIENTIST: section Derm: Other - Present Medications Home Medications: Ambulatory Orders Medication Instructions Recorded Confirmed Ascorbic Acid/Multivit-Min 1 packet PO DAILY 03/30/16 03/30/16 [Emergen-C Immune Plus Packet] Hydrocodone/Acetaminophen [[place] 1 each PO Q6H PRN #20 tablet 04/28/16 5-325 Tablet] ondansetron HCL [Zofran] 4 mg PO Q6H PRN #20 tablet 04/28/16 Azithromycin [Zithromax] 250 mg PO DAILY #6 tablet 07/04/20 Ondansetron Odt [Zofran] 4 mg TL Q6H PRN #10 tablet 08/21/22 Oxycodone HCl [Roxicodone] 5 - 10 mg PO Q6H PRN #14 tablet 08/21/22 predniSONE [Deltasone] 10 mg PO [id number] #42 tab 10/23/22 - Allergies Allergies/Adverse Reactions: Allergies Allergy/AdvReac Type Severity Reaction Status Date / Time Penicillins Allergy Anaphylaxis Verified 01/06/23 08:57 - Social History Does the pt smoke?: No Smoking Status: Never smoker Does the pt drink ETOH?: Yes Does the pt have substance abuse?: No - Immunizations Immunizations are current?: No Immunizations: TDAP >10years/unknown - POLST Patient has POLST: No PD ED PE NORMAL - Vitals Vital signs reviewed: Yes - General General: Alert and oriented X 3, Other (She appears uncomfortable with abdominal pain and holding an emesis bag with nausea.). No: Well developed/nourished (frail appearing) - Neck Neck: Supple, no meningeal sign, No adenopathy - Cardiac Cardiac: RRR, No murmur - Respiratory Respiratory: Clear bilaterally - Abdomen Abdomen: Other (She has a ileostomy bag right of center in the abdomen. No output in it right now but she states she changed it just 1 or 2 hours ago. There had been small amount in there. Tender with distention in the lower half of the abdomen in particular.) - Derm Derm: Normal color, Warm and dry - Extremities Extremities: No calf tenderness / cord - Neuro Neuro: Alert and oriented X 3, No motor deficit, Normal speech Results - Vitals Vitals: Vital Signs - 24 hr 01/06/23 01/06/23 01/06/23 08:54 08:57 10:30 Temperature 36.6 C Heart Rate 111 H 84 91 Respiratory 17 16 16 Rate Blood Pressure 164/99 H 171/102 H 138/88 H O2 Saturation 100 100 100 If not protocol 2 : Oxygen Flow, liters/minute 01/06/23 01/06/23 12:00 13:15 Temperature Heart Rate 86 84 Respiratory 16 16 Rate Blood Pressure 158/106 H 152/101 H O2 Saturation 100 100 If not protocol 2 2 : Oxygen Flow, liters/minute Oxygen O2 Source Nasal cannula - Labs Labs: Laboratory Tests 01/06/23 01/06/23 09:05 09:05 WBC 8.9 RBC 4.37 Hgb 14.2 Hct 41.1 MCV 94.1 MCH 32.5 H MCHC 34.5 RDW 12.3 Plt Count 528 H MPV 9.1 Neut # (Auto) 7.5 H Lymph # (Auto) 0.5 L [place] # (Auto) 0.6 Eos # (Auto) 0.0 Baso # (Auto) 0.1 Absolute Nucleated RBC 0.00 Nucleated RBC % 0.0 Sodium 137 Potassium 4.5 Chloride 97 L Carbon Dioxide 25 Anion Gap 15.0 H BUN 19 Creatinine 0.6 Estimated GFR (MDRD) 101 Glucose 150 H Calcium 9.6 Magnesium 1.4 L Total Bilirubin 1.0 AST 22 ALT 19 Alkaline Phosphatase 90 Total Protein 7.0 Albumin 3.5 Globulin 3.5 Albumin/Globulin Ratio 1.0 Lipase 30 - Rads (name of study) abd/pelvic cT Relevant Findings:: Prelim report reviewed, EMP independent interpretation of test (ostomy is noted. there is larger amount of stool just inward of the ostomy. general distended small bowel loops and scattered a/f levels c/w obstru ction. ), See rad report PD Medical Decision Making - ED course Complexity details: reviewed results, considered differential (Abrupt onset nausea and vomiting with abdominal pain and distention last night. Consider flareup of her Crohn's versus viral gastroenteritis versus postoperative ileus or bowel obstruction.), d/w patient, d/w personal consultant (s/w her surgeon at [facility], who would like to care for the patient and will talk with their transfer center to arrange transfer. ) Reviewed Lab Results: CT showing what looks like SBO versus ileus. Clinically this would be SBO. She is still distended and tender on recheck after meds. But not vomiting. Presume she will need fluids/meds/time to try to resolve. though it does appear somewhat tight near the ostomy opening. Consider if mechanical obstruction from tightness/edema around the surgical site. Drug Therapy Requiring Monitoring for Toxicity: The patient had an IV started and was given IV Zofran fluids and morphine to help with her symptoms. Departure - Departure Disposition: 02 Transfer Acute Care Hosp Clinical Impression: Status post laparoscopic hernia repair, Small bowel obstruction, Acute vomiting, Abdominal pain, Crohn's disease Condition: Stable Discharge Date/Time: 01/06/23 13:17
[2023-01-06] MEDS ORDERED: SODIUM CHLORIDE 0.9% 1,000 ML IV STA (09:22)
[2023-01-06] MEDS ORDERED: ONDANSETRON 4 MG/2 ML VIAL IVP STA (09:22)
[2023-01-06] MEDS ORDERED: MORPHINE 10 MG/ML VIAL IVP STA (09:22)
[2023-01-06 09:28] LABS: BASOPHILS # (AUTO) 0.1 10^3/uL (0.0-0.1); EOSINOPHILS % (AUTO) 0.2 %; HCT - HEMATOCRIT 41.1 % (37.0-47.0); HGB - HEMOGLOBIN 14.2 g/dL (12.0-16.0); LYMPHOCYTES # (AUTO) 0.5 10^3/uL (1.5-3.5); MEAN CORPUSCULAR HEMOGLOBIN 32.5 pg (27.0-31.0); MEAN CORPUSCULAR HGB CONC 34.5 g/dL (32.0-36.0); MEAN CORPUSCULAR VOLUME 94.1 fL (81.0-99.0); MEAN PLATELET VOLUME 9.1 fL (7.9-10.8); MONOCYTES # (AUTO) 0.6 10^3/uL (0.0-1.0); MONOCYTES % (AUTO) 6.7 %; NEUTROPHILS # (AUTO) 7.5 10^3/uL (1.5-6.6); NEUTROPHILS % (AUTO) 84.4 %; PLT - PLATELET COUNT 528 10^3/uL (130-450); RED BLOOD COUNT 4.37 10^6/uL (4.20-5.40); RED CELL DISTRIBUTION WIDTH 12.3 % (12.0-15.0); WHITE BLOOD COUNT 8.9 x10^3/uL (4.8-10.8)
[2023-01-06 09:48] LABS: ALBUMIN 3.5 g/dL (3.2-5.5); CALCIUM 9.6 mg/dL (8.5-10.3); CREATININE 0.6 mg/dL (0.4-1.0); MAGNESIUM 1.4 mg/dL (1.7-2.8)
[2023-01-06 09:49] LABS: POTASSIUM 4.5 mmol/L (3.5-5.0)
[2023-01-06] MEDS ORDERED: iohexoL-300 100 ML VIAL ONE (09:56)
[2023-01-06] MEDS ORDERED: iohexoL-300 100 ML VIAL IVP ONE (10:39)
--- NOTE | 2023-01-06 10:52 | CT Report ---
PROCEDURE: ABDOMEN/PELVIS W INDICATIONS: recent abd surgeryy 12/27, bloated and vomiting 1 d CONTRAST: 100ml omni 300 100ml TECHNIQUE: After the administration of intravenous contrast, 5 mm thick sections acquired from the diaphragms to the symphysis. 5 mm thick coronal and sagittal reformats were acquired. For radiation dose reducti on, the following was used: automated exposure control, adjustment of mA and/or kV according to karen ent size. COMPARISON: CT abdomen and pelvis, 08/21/2022, 01/01/2022 and 12/09/2021. FINDINGS: Image quality: Excellent. ABDOMEN: Lung bases: Right hemidiaphragmatic elevation. There is discoid atelectasis in right middle lobe and lower lobe. Heart size is normal. There is a moderate-sized hiatal hernia. Solid organs: Liver and spleen are normal in size and enhancement. Gallbladder is normal Biliary s ystem is non dilated. Pancreas enhances normally. No adrenal nodules. Kidneys demonstrate normal s ize and enhancement, without hydronephrosis. Peritoneum and bowel: There are postsurgical changes related to total colectomy. There is a ileostom y in the right lower quadrant. There is parastomal hernia with ileal loops within the ostomy site, un changed from the last exam. Mild focal narrowing and thickening are noted just proximal to the ostomy . Bowel loops dilated measuring up to 3.5 cm. There is mildly increased mucosal thickening at the di stal ileum. Jejunal loops are nondilated. Stomach is nondilated. No free fluid or air. Nodes and vessels: No retroperitoneal or mesenteric adenopathy by size criteria. Aorta and inferior vena cava are normal in size. Miscellaneous: No ventral hernias. PELVIS: Genitourinary: Bladder wall thickness is normal. Miscellaneous: No inguinal hernias or adenopathy. Bones: No suspicious bony lesions. No vertebral body compression fractures. IMPRESSION: 1. Total colectomy and right sided ileostomy. There is peristomal hernia, unchanged from the last exa m. There is focal narrowing and mild thickening as to small bowel entering the ostomy site. Small bow el loops are mildly dilated just behind the ileostomy measuring up to 3.5 cm. There is slight increas ed enhancement after small bowel mucosa. Stomach and proximal small bowel are nondilated. The CT find ings may represent partial small bowel obstruction or ileus. 2. Moderate sized hiatal hernia. 3. Right hemidiaphragm elevation and right basilar atelectasis. Reviewed by: Monae Gonzales MD on 01/06/2023 10:51 AM [facility] Approved by: Monae Gonzales MD on 01/06/2023 10:51 AM [facility] Station ID: [id number]
[2023-01-06] MEDS ORDERED: LACTATED RINGERS 1,000 ML IV STA (12:24)
[2023-01-06 13:16] VITALS: BP 152/101
== END 2023-01-06 13:17 | disposition short-term general hospital (02) ==
LOC: ED 08:47
DX: K56.609 Unspecified intestinal obstruction, unspecified as to partial versus complete obstruction (principal); R11.10 Vomiting, unspecified; Z98.890 Other specified postprocedural states; K50.90 Crohn's disease, unspecified, without complications
CPT/HCPCS: 36415; 74177; 80053; 83690; 83735; 85025; 96374; 99285; J7120; Q9967

== ENCOUNTER 2023-01-06 13:15 | Outpatient (CLI) | payer OTHER | END 2023-01-06 13:16 | disposition short-term general hospital (02) | LOC: EMS 13:15 | PROVIDERS: ATTEND Emergency Medicine | DX: K91.30 Postprocedural intestinal obstruction, unspecified as to partial versus complete (principal) | CPT/HCPCS: A0425; A0426 ==

== ENCOUNTER 2023-01-20 18:22 | Emergency (ER) | payer SELFPAY ==
[2023-01-20 18:48] LABS: BASOPHILS # (AUTO) 0.1 10^3/uL (0.0-0.1); BASOPHILS % (AUTO) 2.2 %; EOSINOPHILS # (AUTO) 0.4 10^3/uL (0.0-0.7); EOSINOPHILS % (AUTO) 10.6 %; HCT - HEMATOCRIT 36.7 % (37.0-47.0); HGB - HEMOGLOBIN 11.9 g/dL (12.0-16.0); LYMPHOCYTES # (AUTO) 0.6 10^3/uL (1.5-3.5); LYMPHOCYTES % (AUTO) 15.2 %; MEAN CORPUSCULAR HEMOGLOBIN 32.1 pg (27.0-31.0); MEAN CORPUSCULAR HGB CONC 32.4 g/dL (32.0-36.0); MEAN CORPUSCULAR VOLUME 98.9 fL (81.0-99.0); MEAN PLATELET VOLUME 8.8 fL (7.9-10.8); MONOCYTES # (AUTO) 0.3 10^3/uL (0.0-1.0); MONOCYTES % (AUTO) 6.9 %; NEUTROPHILS # (AUTO) 2.6 10^3/uL (1.5-6.6); NEUTROPHILS % (AUTO) 64.9 %; PLT - PLATELET COUNT 346 10^3/uL (130-450); RED BLOOD COUNT 3.71 10^6/uL (4.20-5.40); RED CELL DISTRIBUTION WIDTH 12.5 % (12.0-15.0); WHITE BLOOD COUNT 4.1 x10^3/uL (4.8-10.8)
--- OUTSIDE RECORDS SUMMARY | 2023-01-20 18:56 | EXTERNAL MEDICAL SUMMARY RPT | Continuity of Care Document ---
:1960 Author Organization [facility] Address [address] [place] [address] Phone Care Team Providers Name Role Phone Unavailable Unavailable Unavailable Nanci Galeana Pa-C Unavailable Unavailable Allergies No information. Encounters No [...] [facility] 2022-10-24 00:00 [id number] [facility] [...] [facility] 2022-10-24 00:00 [id number] [facility] [...] [facility] 2022-10-24 00:00 [id number]-is [facility] [place] 2022-10-24 00:00 azathioprine [facility] [place] 2022-10-25 00:00 azathioprine [facility] [place] 2022-10-24 00:00 [id number]-[id number] [facility] [...] [facility] [place] 2022-10-25 00:00 azathioprine [facility] [place] Problems date description facility 2022-10-24 00:00 Acute suppurative otitis media [facility] 2022-10-24 00:00 Acute otitis externa [facility] 2022-10-24 00:00 Acute swimmers' ear Walk-In Clinic [facility] Services C [...] 2022-10-24 00:00 Visit Code Hold [facility] [place] Results/Labs No information. Social History date description facility 2022-10-24 00:00 Never smoker Walk[facility] Clinic [facility] [place] [...]
[2023-01-20 18:59] LABS: ALBUMIN 3.6 g/dL (3.2-5.5); BILIRUBIN,TOTAL 0.3 mg/dL (0.2-1.0); CALCIUM 9.5 mg/dL (8.5-10.3); CREATININE 0.8 mg/dL (0.4-1.0); POTASSIUM 4.1 mmol/L (3.5-5.0); TOTAL PROTEIN 7.2 g/dL (6.7-8.2)
[2023-01-20] MEDS ORDERED: HYDROmorphone 1 MG/ML CARPUJECT IVP STA ×2 (19:36→23:30)
--- NOTE | 2023-01-20 19:41 | ED Physician Documentation ---
PD HPI ABD PAIN - Stated complaint Stated Complaint: ABD PX - Chief complaint Chief Complaint: Abd Pain - History obtained from History obtained from: Patient - Additional information Additional information: 63-year-old woman diagnosed with Crohn's in her early teens and had a colectomy with ileostomy at that time. About a month ago had a parastomal hernia repair at [place]. 3 days ago developed left-sided abdominal pain with slightly decreased ileostomy output but noting that her appetite is down. It is not associate with fevers or nausea. No blood in her ostomy. She was seen at the walk-in clinic and referred here for further evaluation and treatment. 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 : None HEENT: None Psych: None Musculoskeletal: None Derm: None - Past Surgical History Past Surgical History: Yes General: Bowel surgery /AIRCRAFT MECHANIC ELECTRICAL AND RADIO: section Derm: Other - Present Medications Home Medications: Ambulatory Orders Medication Instructions Recorded Confirmed Ascorbic Acid/Multivit-Min 1 packet PO DAILY 03/30/16 03/30/16 [Emergen-C Immune Plus Packet] Hydrocodone/Acetaminophen [[place] 1 each PO Q6H PRN #20 tablet 04/28/16 5-325 Tablet] ondansetron HCL [Zofran] 4 mg PO Q6H PRN #20 tablet 04/28/16 Azithromycin [Zithromax] 250 mg PO DAILY #6 tablet 07/04/20 Ondansetron Odt [Zofran] 4 mg TL Q6H PRN #10 tablet 08/21/22 Oxycodone HCl [Roxicodone] 5 - 10 mg PO Q6H PRN #14 tablet 08/21/22 predniSONE [Deltasone] 10 mg PO [id number] #42 tab 08/21/22 Ciprofloxacin HCl [Cipro] 500 mg PO BID #14 tablet 01/20/23 - Allergies Allergies/Adverse Reactions: Allergies Allergy/AdvReac Type Severity Reaction Status Date / Time Penicillins Allergy Anaphylaxis Verified 01/20/23 18:50 - Social History Does the pt smoke?: No Smoking Status: Never smoker Does the pt drink ETOH?: Yes Does the pt have substance abuse?: No - Immunizations Immunizations are current?: No Immunizations: TDAP >10years/unknown - POLST Patient has POLST: No PD ED PE NORMAL - Vitals Vital signs reviewed: Yes - General General: Alert and oriented X 3, No acute distress - HEENT HEENT: PERRL, EOMI - Neck Neck: Supple, no meningeal sign, No bony TTP - Cardiac Cardiac: RRR, No murmur - Respiratory Respiratory: No respiratory distress, Clear bilaterally - Abdomen Abdomen: Other (She has an ileostomy in the right lower quadrant. In that area she is nontender. Diffusely she has diminished but not absent bowel sounds with mild left-sided abdominal tenderness but no surgical signs.) - Neuro Neuro: Alert and oriented X 3, Normal speech - Psych Psych: Normal mood, Normal affect Results - Vitals Vitals: Vital Signs - 24 hr 01/20/23 01/20/23 01/20/23 18:42 20:48 22:00 Temperature 36.5 C Heart Rate 66 64 56 L Respiratory 18 14 14 Rate Blood Pressure 173/98 H 142/93 H 162/85 H O2 Saturation 99 96 99 01/20/23 01/21/23 23:09 00:40 Temperature 37.0 C Heart Rate 61 59 L Respiratory 15 16 Rate Blood Pressure 121/101 H 122/86 H O2 Saturation 97 100 Oxygen O2 Source Room air - Labs Labs: Laboratory Tests 01/20/23 01/20/23 01/20/23 18:39 18:39 19:45 WBC 4.1 L RBC 3.71 L Hgb 11.9 L Hct 36.7 L MCV 98.9 MCH 32.1 H MCHC 32.4 RDW 12.5 Plt Count 346 MPV 8.8 Neut # (Auto) 2.6 Lymph # (Auto) 0.6 L [place] # (Auto) 0.3 Eos # (Auto) 0.4 Baso # (Auto) 0.1 Absolute Nucleated RBC 0.00 Nucleated RBC % 0.0 Sodium 140 Potassium 4.1 Chloride 107 Carbon Dioxide 24 Anion Gap 9.0 BUN 11 Creatinine 0.8 Estimated GFR (MDRD) 72 L Glucose 83 Calcium 9.5 Total Bilirubin 0.3 AST 18 ALT 21 Alkaline Phosphatase 82 Total Protein 7.2 Albumin 3.6 Globulin 3.6 Albumin/Globulin Ratio 1.0 Lipase 30 Urine Color YELLOW Urine Clarity HAZY Urine pH 6.0 Ur Specific [place] 1.020 Urine Protein NEGATIVE Urine Glucose (UA) NEGATIVE Urine Ketones NEGATIVE Urine Occult Blood TRACE-INTA Urine Nitrite NEGATIVE Urine Bilirubin NEGATIVE Urine Urobilinogen 0.2 (NORMAL) Ur Leukocyte Esterase SMALL H Urine RBC 0-5 Urine WBC 6-10 H Ur Squamous Epith Cells FEW Squamous Urine Bacteria Few Ur Microscopic Review INDICATED Urine Culture Comments INDICATED Procedures - General procedure General procedure: She was difficult for IV access, couple of the nurses that are very experienced to tried and failed. I personally placed a long 22-gauge IV in the right cephalic vein after ChloraPrep which priscilla and flushed well. PD Medical Decision Making - ED course ED course: Care to Dr Schroeder at [facility] pending diagnostic testing. Departure - Departure Disposition: Home, Self Care Clinical Impression: Urinary tract infection Condition: Stable Instructions: ED UTI Cystitis Female Follow-Up: Amy Yancey ARNP [Primary Care Provider] - Prescriptions: Ciprofloxacin HCl [Cipro] 500 mg PO BID #14 tablet Comments: Ana M, today we did not find abnormalities on your CT scan to account for the left-sided abdominal pain. We did find evidence of infection in the urine specimen we obtained. Urine is being cultured. Today we have started treatment with Cipro and I have E scribed additional medication to the [facility] in [place]. The expectation is improvement in your pain over the next several days. If you have worsening of the pain or new symptoms follow-up with your primary care doctor, here, or with your surgeon. Discharge Date/Time: 01/21/23 00:44
[2023-01-20 19:52] LABS: BILIRUBIN,URINE NEGATIVE (NEGATIVE); GLUCOSE, URINE (UA) NEGATIVE (NEGATIVE); KETONES,URINE (UA) NEGATIVE (NEGATIVE); LEUKOCYTE ESTERASE, URINE SMALL (NEGATIVE); NITRITE,URINE NEGATIVE (NEGATIVE); OCCULT BLOOD,URINE TRACE-INTA (NEGATIVE); PROTEIN,URINE NEGATIVE (NEGATIVE); UROBILINOGEN,URINE 0.2 (NORMAL) E.U./dL (NORMAL)
[2023-01-20 19:54] LABS: CLARITY,URINE HAZY (CLEAR)
[2023-01-20] MEDS ORDERED: DIATR MEGLU/DIATRIZOATE SODIUM 120 ML BOTTLE ONE (20:06)
[2023-01-20 20:08] LABS: BACTERIA,URINE Few /HPF (None Seen); RBC,URINE 0-5 /HPF (0-5); SQUAMOUS EPITHELIAL CELL,UR FEW Squamous (<= Few)
[2023-01-20] MEDS ORDERED: DIATRIZOATE MEGLU/DIATRIZO SOD 30 ML BOTTLE PO ONE (21:04)
[2023-01-20] MEDS ORDERED: iohexoL-300 100 ML VIAL ONE (21:14)
[2023-01-20] MEDS ORDERED: iohexoL-300 100 ML VIAL IVP ONE (21:53)
--- NOTE | 2023-01-20 22:53 | CT Report ---
PROCEDURE: ABDOMEN/PELVIS W INDICATIONS: IV and p.o., left abdominal pain, multiple CONTRAST: 100 ML OMNI 300 TECHNIQUE: After the administration of oral and intravenous contrast, 5 mm thick sections acquired from the diap hragms to the symphysis. 5 mm thick coronal and sagittal reformats were acquired. For radiation dos e reduction, the following was used: automated exposure control, adjustment of mA and/or kV accordin g to patient size. COMPARISON: CT abdomen pelvis 01/06/2023, 08/21/2022, 01/01/2022. FINDINGS: Image quality: Excellent. Lung bases:There is mild atelectasis and scarring the lung bases. Heart: Heart is normal in size. There is a small hiatal hernia. ABDOMEN: Liver: No mass lesion. Gallbladder: Within normal limits without calcified gallstones. Biliary ducts: No biliary ductal dilatation. Pancreas:There is severe fatty atrophy of the pancreas. No discrete pancreatic mass or pancreatic du ct dilatation. Spleen: Normal in size. Adrenal Glands: No adrenal nodules. Kidneys and Ureters: No hydronephrosis. Stomach and Bowel:Postsurgical changes are redemonstrated status post colectomy with a right lower q uadrant ileostomy. A rectal stump is also redemonstrated within the pelvis. Stomach and small bowel l oops are normal in overall caliber. There is mild segmental wall thickening at the ileostomy suggesti ve of a mild enteritis. Peritoneum:Small enhancing intracranial free fluid is redemonstrated within the pelvis. No free air. Ventral Wall: No hernia. Abdominal Nodes: No retroperitoneal or mesenteric adenopathy by size criteria. Vessels: Aorta and inferior vena cava are normal in size. PELVIS: Pelvic Organs:Uterus is not well seen and is likely surgically absent. Bladder: Unremarkable. Pelvic Nodes: No enlarged lymph nodes. Miscellaneous: No inguinal hernias. Bones: Visualized osseous structures demonstrate no suspicious lesions. IMPRESSION: 1. Postsurgical changes redemonstrated status post subtotal colectomy with a right lower quadrant ile ostomy. Mild segmental wall thickening of the small bowel distally at the ileostomy site is suggestiv e of a mild enteritis. 2. No evidence of bowel obstruction. Reviewed by: Vance Calderon MD on 01/20/2023 10:52 PM PDT Approved by: Vance Calderon MD on 01/20/2023 10:52 PM PDT Station ID: [id number]
--- NOTE | 2023-01-20 23:10 | ED Physician Documentation ---
ED Addendum - Addendum Addendum: 01/20/23 23:08 63-year-old female with a history of Crohn's disease has left-sided abdominal pain 2 weeks after surgery on her stoma. A CT scan was without evidence of abnormality to explain left-sided abdominal pain. The patient does have urinalysis demonstrating evidence of pathologic infection. She does not have specific symptoms with the exception of the pain. On exam her pain is in the left upper quadrant. We have elected to treat the urinary tract infection. She is treated with Cipro 500 twice daily for 1 week. Impression: Urinary tract infection disposition: Dispositioned to home under the care of her with follow-up with her primary Lucian Stokes
[2023-01-20] MEDS ORDERED: CIPROFLOXACIN 250 MG TABLET PO STA (23:30)
[2023-01-20] MEDS ORDERED: HYDROmorphone 1 MG/ML CARPUJECT IM STA (23:49)
[2023-01-21] MEDS ORDERED: HYDROmorphone 1 MG/ML CARPUJECT ONE (00:15)
[2023-01-21] MEDS ORDERED: CIPROFLOXACIN 250 MG TABLET ONE (00:16)
[2023-01-21 00:45] VITALS: BP 122/86
== END 2023-01-21 00:44 | disposition home or self-care (01) ==
LOC: ED 18:22
DX: N39.0 Urinary tract infection, site not specified (principal); K50.90 Crohn's disease, unspecified, without complications; Z88.0 Allergy status to penicillin
CPT/HCPCS: 36415; 74177; 80053; 81001; 83690; 85025; 87086; 96372; 96374; 99283; 99284; A9270; J1170; Q9963; Q9967; 81003

== ENCOUNTER 2023-06-29 19:49 | Inpatient (IN) | payer OTHER ==
[2023-06-29] MEDS ORDERED: SODIUM CHLORIDE 0.9% 1,000 ML IV STA ×2 (20:12→23:52)
[2023-06-29 20:15] LABS: BASOPHILS # (AUTO) 0.1 10^3/uL (0.0-0.1); BASOPHILS % (AUTO) 1.9 %; EOSINOPHILS # (AUTO) 0.1 10^3/uL (0.0-0.7); EOSINOPHILS % (AUTO) 1.3 %; HCT - HEMATOCRIT 37.8 % (37.0-47.0); LYMPHOCYTES # (AUTO) 0.6 10^3/uL (1.5-3.5); LYMPHOCYTES % (AUTO) 16.1 %; MEAN CORPUSCULAR HGB CONC 31.7 g/dL (32.0-36.0); MEAN CORPUSCULAR VOLUME 94.5 fL (81.0-99.0); MEAN PLATELET VOLUME 8.9 fL (7.9-10.8); MONOCYTES # (AUTO) 0.2 10^3/uL (0.0-1.0); MONOCYTES % (AUTO) 6.3 %; NEUTROPHILS # (AUTO) 2.8 10^3/uL (1.5-6.6); NEUTROPHILS % (AUTO) 74.1 %; PLT - PLATELET COUNT 300 10^3/uL (130-450); RED CELL DISTRIBUTION WIDTH 13.2 % (12.0-15.0); WHITE BLOOD COUNT 3.8 x10^3/uL (4.8-10.8)
[2023-06-29] MEDS ORDERED: HYDROmorphone 1 MG/ML CARPUJECT IVP STA ×3 (20:18→23:36)
[2023-06-29] MEDS ORDERED: MIN OIL/DIMETHICON/COCONUT OIL 92 GM TUBE TOP STA (20:22)
--- NOTE | 2023-06-29 20:22 | ED Physician Documentation ---
History of Present Illness - Stated complaint Stated Complaint: DIARRHEA/NAUSEA - Chief complaint Chief Complaint: Abd Pain - Additonal information Additional information: 63-year-old female who has a longstanding history of Crohn's with a diverting ileostomy that she has had since she was 13 presents the emergency department for evaluation of 3 days diarrhea. She typically reports that her ileostomy puts out soft stool and she changes it 3-4 times a day. Over the last 3 days she has had such copious leaking that the skin around her stoma and on her abdomen has become inflamed. No fevers. Nonbloody output. No vomiting. No recent antibiotics. no travel. In order to manage the Crohn's she gets Inflectra infusions every 8 weeks. Last infusion 6 weeks ago. Followed by GI at [place]. Review of Systems Constitutional: denies: Fever Cardiac: reports: Reviewed and negative Respiratory: reports: Reviewed and negative GI: reports: Abdominal Pain, Diarrhea. 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: section Derm: Other - Present Medications Home Medications: Ambulatory Orders Medication Instructions Recorded Confirmed Ascorbic Acid/Multivit-Min 1 packet PO DAILY 03/30/16 03/30/16 [Emergen-C Immune Plus Packet] Hydrocodone/Acetaminophen [[place] 1 each PO Q6H PRN #20 tablet 04/28/16 5-325 Tablet] ondansetron HCL [Zofran] 4 mg PO Q6H PRN #20 tablet 04/28/16 Azithromycin [Zithromax] 250 mg PO DAILY #6 tablet 07/04/20 Ondansetron Odt [Zofran] 4 mg TL Q6H PRN #10 tablet 08/21/22 Oxycodone HCl [Roxicodone] 5 - 10 mg PO Q6H PRN #14 tablet 08/21/22 predniSONE [Deltasone] 10 mg PO [id number] #42 tab 08/21/22 Ciprofloxacin HCl [Cipro] 500 mg PO BID #14 tablet 01/20/23 - Allergies Allergies/Adverse Reactions: Allergies Allergy/AdvReac Type Severity Reaction Status Date / Time Penicillins Allergy Anaphylaxis Verified 06/29/23 19:52 - Social History Does the pt smoke?: No Smoking Status: Never smoker Does the pt drink ETOH?: Yes Does the pt have substance abuse?: No - Immunizations Immunizations are current?: No Immunizations: TDAP >10years/unknown - POLST Patient has POLST: No PD ED PE NORMAL - General General: Alert and oriented X 3, No acute distress, Well developed/nourished - HEENT HEENT: Atraumatic - Neck Neck: Supple, no meningeal sign - Cardiac Cardiac: RRR, No murmur - Respiratory Respiratory: No respiratory distress, Clear bilaterally - Abdomen Abdomen: No: Other (Large left vertical incision extending from the symphysis pubis up to the rib cage well-healed. Ileostomy right mid abdomen with copious yellow output. Mild tenderness to palpation without guarding or rebound. What was the issue) Results - Vitals Vitals: Vital Signs - 24 hr 06/29/23 19:52 Temperature 36.5 C Heart Rate 78 Respiratory 16 Rate Blood Pressure 150/84 H O2 Saturation 96 Oxygen O2 Source Room air - Labs Labs: Laboratory Tests 06/29/23 06/29/23 06/29/23 20:08 20:08 20:48 WBC 3.8 L RBC 4.00 L Hgb 12.0 Hct 37.8 MCV 94.5 MCH 30.0 MCHC 31.7 L RDW 13.2 Plt Count 300 MPV 8.9 Neut # (Auto) 2.8 Lymph # (Auto) 0.6 L [place] # (Auto) 0.2 Eos # (Auto) 0.1 Baso # (Auto) 0.1 Absolute Nucleated RBC 0.00 Nucleated RBC % 0.0 Sodium 139 Potassium 4.0 Chloride 105 Carbon Dioxide 23 Anion Gap 11.0 BUN 14 Creatinine 0.7 Estimated GFR (MDRD) 85 L Glucose 121 H Calcium 9.6 Total Bilirubin 0.2 AST 24 ALT 25 Alkaline Phosphatase 99 Total Protein 6.9 Albumin 3.8 Globulin 3.1 Albumin/Globulin Ratio 1.2 Lipase 19 Urine Color YELLOW Urine Clarity CLEAR Urine pH 5.0 Ur Specific [place] <=1.005 Urine Protein NEGATIVE Urine Glucose (UA) NEGATIVE Urine Ketones NEGATIVE Urine Occult Blood TRACE-INTA Urine Nitrite NEGATIVE Urine Bilirubin NEGATIVE Urine Urobilinogen 0.2 (NORMAL) Ur Leukocyte Esterase TRACE H Urine RBC 0-5 Urine WBC 0-3 Ur Squamous Epith Cells FEW Squamous Urine Bacteria Rare Ur Microscopic Review INDICATED Urine Culture Comments INDICATED PD Medical Decision Making - ED course Complexity details: reviewed results, re-evaluated patient, considered differential, d/w patient ED course: 63-year-old female who has a history of Crohn's disorder with a diverting ileostomy when she was 13 years of age presents emergency department for evaluation of 3 days copious watery diarrhea. She has found that the ostomy is now leaking causing a rash around her abdomen. She is also reporting some left- sided abdominal pain and cramping. No fevers or vomiting. No bloody output. No recent antibiotics, travel or hospitalizations. Presentation the emergency department she does appear rather well. No fevers, tachycardia or hypotension. Abdominal exam reveals extensive scarring on the abdomen. Ileostomy stoma is pink. There is surrounding dermatitis and rash from leaking of stool. Output was yellow in color. Did obtain CBC, electrolytes and urinalysis. Per my interpretation no acute worrisome abnormalities or significant electrolyte derangement. No urinary tract infection. C. difficile and stool culture are pending. However given the history of colitis as well as previous small bowel obstruction she will be sent to the CT scanner for further evaluation and management. I have initially prescribed the patient a milligram of Dilaudid as well as a liter of IV fluid. On reevaluation her pain was improved. Patient will be signed out to my nighttime colleague to follow-up on CT results and formal disposition pending. Departure - Departure Forms: PCP List
[2023-06-29 20:30] LABS: ALBUMIN 3.8 g/dL (3.2-5.5); ALBUMIN/GLOBULIN RATIO 1.2 (1.0-2.2); BILIRUBIN,TOTAL 0.2 mg/dL (0.2-1.0); CALCIUM 9.6 mg/dL (8.5-10.3); CREATININE 0.7 mg/dL (0.6-1.3); TOTAL PROTEIN 6.9 g/dL (6.4-8.9)
[2023-06-29 20:54] LABS: BILIRUBIN,URINE NEGATIVE (NEGATIVE); GLUCOSE, URINE (UA) NEGATIVE (NEGATIVE); KETONES,URINE (UA) NEGATIVE (NEGATIVE); LEUKOCYTE ESTERASE, URINE TRACE (NEGATIVE); NITRITE,URINE NEGATIVE (NEGATIVE); OCCULT BLOOD,URINE TRACE-INTA (NEGATIVE); PROTEIN,URINE NEGATIVE (NEGATIVE); UROBILINOGEN,URINE 0.2 (NORMAL) E.U./dL (NORMAL)
[2023-06-29 20:55] LABS: CLARITY,URINE CLEAR (CLEAR)
[2023-06-29 21:06] LABS: BACTERIA,URINE Rare /HPF (None Seen); RBC,URINE 0-5 /HPF (0-5); SQUAMOUS EPITHELIAL CELL,UR FEW Squamous (<= Few); WBC,URINE 0-3 /HPF (0-5)
--- NOTE | 2023-06-29 22:58 | ED Physician Documentation ---
ED Addendum - Addendum Addendum: 06/29/23 22:57 No changes during my shift, the patient is signed out to Dr. Roca pending CT scan, C. difficile results and reevaluation.
--- NOTE | 2023-06-29 23:19 | ED Physician Documentation ---
ED Addendum - Addendum Addendum: 06/29/23 23:18 Patient endorsed to me by Dr. Otto awaiting C. difficile and CT results. Briefly, patient has longstanding history of Crohn's disease with ileostomy and presents with increased ileostomy output of watery diarrhea for the past 3 days without any blood. Patient is well-appearing here in the emergency department and has benign blood work. Her urine showed positive leukocyte esterase however she is asymptomatic therefore this is asymptomatic and will not be treated as UTI. CT report states patient has enteric hyperemia concerning for crohns flare. I suspect possible superimposed viral enteritis. Patient is requiring multiple doses of IV pain medicine (third dose of 1mg dilaudid provided at 11:50pm) and also had large volume nonbloody emesis when I went to discuss her CT results. Therefore plan to admit telehealth. Impression 1. nausea and vomiting 2. intractable abdominal pain 3. diarrhea 4. crohns flare 06/29/23 23:52 Disposition admit Condition fair 06/29/23 23:56 Note patient declined IV decadron, stating she is already taking 40mg daily prednisone.
--- NOTE | 2023-06-29 23:26 | CT Report ---
PROCEDURE: ABDOMEN/PELVIS W INDICATIONS: diarrhea; Diverting ileostomy. History of Crohn's CONTRAST: 100mL Omni 300 TECHNIQUE: After the administration of intravenous contrast, 5 mm thick sections acquired from the diaphragms to the symphysis. 5 mm thick coronal and sagittal reformats were acquired. For radiation dose reducti on, the following was used: automated exposure control, adjustment of mA and/or kV according to karen ent size. COMPARISON: CT 01/20/2023 FINDINGS: Image quality: Excellent. Lung bases and heart: Small hiatal hernia with perceived mucosal hyperemia. Reflux within the lower e sophagus. Liver: No solid mass. Gallbladder and biliary tree: No radiopaque stones or wall thickening. No biliary dilation. No intrah epatic biliary dilation to suggest PSC. Spleen: No splenomegaly. Pancreas: No pancreatic ductal dilation. Adrenals: No adrenal nodule. Kidneys and ureters: No hydronephrosis. No renal cystic lesion which requires follow up. No solid mas s. Bowel and peritoneum: Prior colectomy with right lower quadrant ileostomy. There is perceived hyperem ia and enhancement with wall stratification of the loops of bowel within the parastomal hernia of the right lower quadrant. Lymph nodes: No central or retroperitoneal adenopathy. Vessels: No infrarenal aortic aneurysm. PELVIS Reproductive organs: Unremarkable. Bladder: No abnormal wall thickening, accounting for underdistension. Pelvic lymph nodes: No pelvic adenopathy by size criteria. Bones: No aggressive osseous abnormality. No avascular necrosis of the femoral heads. No sacroiliitis . Other: No significant ventral or inguinal hernia. 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 There is perceived hyperenhancement of the bowel with a parastomal hernia with wall thickening , as well as hyperemia and thickening of the distal esophagus. Findings are concerning for acute exac erbation of Crohn's disease. Reviewed by: Tommy Diaz on 06/29/2023 11:24 PM PDT Approved by: Tommy Diaz on 06/29/2023 11:24 PM PDT Station ID: [id number]
[2023-06-29] MEDS ORDERED: DEXAMETHASONE 10 MG/ML VIAL IVP STA (23:51)
[2023-06-29] MEDS ORDERED: ONDANSETRON 4 MG/2 ML VIAL IVP STA (23:52)
[2023-06-29] MEDS ORDERED: ONDANSETRON 4 MG/2 ML VIAL IVP PRN (23:59)
[2023-06-29] MEDS ORDERED: ACETAMINOPHEN 325 MG TABLET PO PRN (23:59)
[2023-06-30] MEDS ORDERED: PANTOPRAZOLE 40 MG VIAL IV STA (00:03)
--- NOTE | 2023-06-30 00:29 | HISTORY & PHYSICAL EXAMINATION ---
History and Physical - History and Physical Chief Complaint: - Abdominal pain, nausea, vomiting, and diarrhea. History of Present Illness: - Age/Sex: 63-year-old female. - Duration of Symptoms: Last 4 days with progressive worsening. - Previous Medical History: Crohn's disease, ileostomy in the past. - Symptoms: Increased ileostomy output, chills (no fever), no shortness of breath, chest pain, lower extremity edema, or dysuria. - Medication Taken: 40 mg of prednisone orally this morning. - Treatment: Immunotherapy every 8 weeks. - Exclusions: No hematemesis, melena, or hematochezia. - Alcohol: Occasionally drinks wine. - Smoking: None. - Family Medical History: No inflammatory bowel disease or GI cancers. - Weight: No recent weight loss. Past Medical History: - Crohn's disease. Review of Systems: - A 12-point review system was conducted. Results were negative except as per the history of the present illness. Past Surgical History: - Ileostomy and . Allergies: - Reviewed. Home Medications: - Reviewed. Social History: - Alcohol: Occasionally drinks wine. - Smoking and Drugs: No history of smoking or illicit drug use. Family History: - No history of inflammatory bowel disease or GI cancers. Physical Examination: - Vital Signs: Reviewed. - Head: Atraumatic, normocephalic. - Eyes: Pupils round, react to light and accommodation. - Neck: No JVD observed. - Cardiovascular System: Regular rate and rhythm. - Respiratory System: Equal air entry bilaterally. - Abdomen: Mild periumbilical tenderness, Right lower quadrant ileostomy present with edematous skin around it, no rebound or guarding. - Extremities: No clubbing, cyanosis, or edema. - Central Nervous System: No focal deficits; patient alert and oriented to time, place, and person. - Musculoskeletal: No calf tenderness. Labs: - Reviewed. CT Scan (Abdomen & Pelvis): - Reviewed. Assessment: 1. Gastroenteritisexacerbation of Crohn's disease. 2. Dehydration. 3. Abdominal pain. Plan: - Admit to [facility] for the following: - IV Ringer lactate infusion. - Continue Dilaudid as needed for pain. - IV Protonix 40 mg now. - Zofran as needed. - Daily Solu-Medrol IV. - C. difficile test ordered; monitor results. - Check procalcitonin and CRP levels. - Monitor daily input and output. CODE STATUS: - Full code. Consultation Duration: - 60 minutes. Telemedicine Details: - Conducted using a bedside telemedicine audiovisual cart. - Location: [place], [place] (provider) and [facility] on [place], [place] (patient). - Consent: Verbal consent taken from the patient. - Assistance: Bedside nurse assisted in patient examination.
[2023-06-30] MEDS: LACTATED RINGERS 1,000 ML IV SCH ×2 (00:53→11:09)
[2023-06-30] MEDS: SODIUM CHLORIDE FLUSH 0.9% 10 ML SYRINGE IVP SCH ×3 (01:05→16:11)
[2023-06-30] MEDS ORDERED: iohexoL-300 100 ML VIAL IVP ONE (02:42)
[2023-06-30] MEDS: HYDROmorphone 0.5 MG/0.5 ML SYRINGE IVP PRN ×3 (05:18→19:56)
[2023-06-30] MEDS: methylPREDNISolone SUCCINATE 40 MG/ML VIAL IVP SCH (08:18)
--- NOTE | 2023-06-30 11:25 | PHARMACY PROGRESS NOTE ---
- Best Possible Medication History Admit Date and Time: 06/29/23 9437 Processed by: Pharmacy Medication History completed: Yes Patient Interview: Completed Secondary Source(s): Pharmacy records, Insurance records PATIENT RECENTLY PRESCRIBED PREDNISONE AND HAS NOT BEGAN TAKING BECAUSE SHE DOES NOT LIKE THE SIDE EFFECTS As the person ultimately responsible for medication therapy, providers are able to order a medication from an existing home medication list in [facility] via the "Reconcile Routine" prior to Confirmation of that medication by direct support specialist. Such practice is discouraged except when the physician, in their clinical judgment, deems that a medical need exists for a medication without regard to previous use.
--- NOTE | 2023-06-30 16:12 | PROVIDER PROGRESS NOTE ---
Assessment/Plan - Problem List (1) Crohn's colitis Assessment/Plan: She has loose stool, not liquidy today Plan: We will keep her on Ceftriaxone and Flagyl empirically and will continue the IV steroid started by admitting [facility] telemedicine doctor We will advance her diet as tolerated I reviewed this plan with the patient today (2) Bacteriuria Assessment/Plan: Patient had several days of diarrhea. Her UA was not very remarkable with very few WBC and she did not describe dysuria However her UA was abnormal and "culture was indicated". The culture is growing strep Plan: This is probably contaminant but empiric antibiotic that covers strep should cover this organism, as it was not tested for sensitivity Cont ceftriaxone - Current Meds Current Meds: Current Medications Generic Name Dose Route Start Last Admin Trade Name Freq PRN Reason Stop Dose Admin Hydromorphone HCl 0.5 mg 06/29/23 23:59 06/30/23 13:16 Hydromorphone 0.5 Mg/0.5 Ml Syringe IVP 0.5 mg Q3H PRN Administration Pain 8 to 10 Lactated Ringer's 1,000 mls @ 100 mls/hr 06/29/23 23:45 06/30/23 11:09 Lr IV 100 mls/hr .Q10H FRANK Administration Methylprednisolone 40 mg 06/30/23 09:00 06/30/23 08:18 Methylprednisolone Succinate 40 Mg/Ml Vial IVP 40 mg DAILY FRANK Administration Ondansetron HCl 4 mg 06/29/23 23:59 06/30/23 05:18 Ondansetron 4 Mg/2 Ml Vial IVP 4 mg Q6HR PRN Administration Nausea / Vomiting Sodium Chloride 10 ml 06/30/23 01:00 06/30/23 05:18 Sodium Chloride Flush 0.9% 10 Ml Syringe IVP 10 ml 0100,0900,1700 FRANK Administration - Lab Result Fish Bone Diagrams: 06/29/23 20:08 06/29/23 20:08 - Additional Planning My Orders: My Active Orders 06/30/23 Lunch DIET [Soft (Low Fiber) Diet] [DIET] 06/30/23 17:00 Ciprofloxacin/D5W 400 mg/200 ml q12h Ciprofloxacin 400 mg/200 ml [Cipro 400 mg/200 ml] 400 mg in 200 ml IV Q12H metroNIDAZOLE/NS 500 mg/100 mL Q8H metroNIDAZOLE 500 MG/100 ML [Flagyl 500 mg/100 ml] 500 mg in 100 ml IV Q8H 07/01/23 05:00 BMP - BASIC METABOLIC PANEL [CHEM] DAILYLAB CBC - COMP BLD CT W/AUTO DIFF [HEME] DAILYLAB VITAMIN B12 [CHEM] DAILYLAB VITAMIN D 25-HYDROXY [REFLAB] DAILYLAB Subjective - Subjective Patient Reports: Feeling Better (Her stools are not as liquidy she reports.) Objective Vital Signs: Vital Signs - 24 hr 06/29/23 06/29/23 06/29/23 19:52 21:39 23:45 Temperature 36.5 C Heart Rate 78 61 63 Heart Rate [ Brachial] Respiratory 16 16 16 Rate Blood Pressure 150/84 H 157/84 H Blood Pressure [Left Brachial artery] Blood Pressure [Right Brachial artery] O2 Saturation 96 94 95 06/30/23 06/30/23 06/30/23 00:45 05:09 08:44 Temperature 35.2 C L 35.6 C L 36.3 C L Heart Rate Heart Rate [ 57 L 56 L 60 Brachial] Respiratory 16 18 20 Rate Blood Pressure Blood Pressure 162/88 H [Left Brachial artery] Blood Pressure 150/89 H 130/73 167/87 H [Right Brachial artery] O2 Saturation 99 100 98 06/30/23 12:18 Temperature 36.4 C L Heart Rate Heart Rate [ 71 Brachial] Respiratory 18 Rate Blood Pressure Blood Pressure [Left Brachial artery] Blood Pressure 153/94 H [Right Brachial artery] O2 Saturation 97 Oxygen O2 Source Room air I&O (Last 24 Hrs): Intake and Output Totals x24h 06/28/23 06/29/23 06/30/23 23:59 23:59 23:59 Intake Total 1000 1905 Output Total 450 Balance 1000 1455 General: Alert, Oriented x3 HEENT: Mucous membr. moist/pink Neck: Supple Cardiovascular: Regular rate Respiratory: No respiratory distress Abdomen: Soft, No tenderness Extremities: No clubbing, No edema, No tenderness/swelling - Results Results: Laboratory Results WBC 3.8 x10^3/uL (4.8-10.8) L 06/29/23 20:08 RBC 4.00 10^6/uL (4.20-5.40) L 06/29/23 20:08 Hgb 12.0 g/dL (12.0-16.0) 06/29/23 20:08 Hct 37.8 % (37.0-47.0) 06/29/23 20:08 MCV 94.5 fL (81.0-99.0) 06/29/23 20:08 MCH 30.0 pg (27.0-31.0) 06/29/23 20:08 MCHC 31.7 g/dL (32.0-36.0) L 06/29/23 20:08 RDW 13.2 % (12.0-15.0) 06/29/23 20:08 Plt Count 300 10^3/uL (130-450) 06/29/23 20:08 MPV 8.9 fL (7.9-10.8) 06/29/23 20:08 Neut # (Auto) 2.8 10^3/uL (1.5-6.6) 06/29/23 20:08 Lymph # (Auto) 0.6 10^3/uL (1.5-3.5) L 06/29/23 20:08 [place] # (Auto) 0.2 10^3/uL (0.0-1.0) 06/29/23 20:08 Eos # (Auto) 0.1 10^3/uL (0.0-0.7) 06/29/23 20:08 Baso # (Auto) 0.1 10^3/uL (0.0-0.1) 06/29/23 20:08 Absolute Nucleated RBC 0.00 x10^3/uL 06/29/23 20:08 Nucleated RBC % 0.0 /100WBC 06/29/23 20:08 Sodium 139 mmol/L (135-145) 06/29/23 20:08 Potassium 4.0 mmol/L (3.5-4.5) 06/29/23 20:08 Chloride 105 mmol/L (101-111) 06/29/23 20:08 Carbon Dioxide 23 mmol/L (21-32) 06/29/23 20:08 Anion Gap 11.0 (6-13) 06/29/23 20:08 BUN 14 mg/dL (6-20) 06/29/23 20:08 Creatinine 0.7 mg/dL (0.6-1.3) 06/29/23 20:08 Estimated GFR (MDRD) 85 (>89) L 06/29/23 20:08 Glucose 121 mg/dL (74-104) H 06/29/23 20:08 Calcium 9.6 mg/dL (8.5-10.3) 06/29/23 20:08 Total Bilirubin 0.2 mg/dL (0.2-1.0) 06/29/23 20:08 AST 24 IU/L (10-42) 06/29/23 20:08 ALT 25 IU/L (10-60) 06/29/23 20:08 Alkaline Phosphatase 99 IU/L (42-121) 06/29/23 20:08 C-React Prot High Sens 2.42 mg/L 06/29/23 20:08 Total Protein 6.9 g/dL (6.4-8.9) 06/29/23 20:08 Albumin 3.8 g/dL (3.2-5.5) 06/29/23 20:08 Globulin 3.1 g/dL (2.1-4.2) 06/29/23 20:08 Albumin/Globulin Ratio 1.2 (1.0-2.2) 06/29/23 20:08 Lipase 19 U/L (11-82) 06/29/23 20:08 Urine Color YELLOW 06/29/23 20:48 Urine Clarity CLEAR (CLEAR) 06/29/23 20:48 Urine pH 5.0 PH (5.0-7.5) 06/29/23 20:48 Ur Specific [place] <=1.005 (1.002-1.030) 06/29/23 20:48 Urine Protein NEGATIVE mg/dL (NEGATIVE) 06/29/23 20:48 Urine Glucose (UA) NEGATIVE mg/dL (NEGATIVE) 06/29/23 20:48 Urine Ketones NEGATIVE mg/dL (NEGATIVE) 06/29/23 20:48 Urine Occult Blood TRACE-INTA (NEGATIVE) 06/29/23 20:48 Urine Nitrite NEGATIVE (NEGATIVE) 06/29/23 20:48 Urine Bilirubin NEGATIVE (NEGATIVE) 06/29/23 20:48 Urine Urobilinogen 0.2 (NORMAL) E.U./dL (NORMAL) 06/29/23 20:48 Ur Leukocyte Esterase TRACE (NEGATIVE) H 06/29/23 20:48 Urine RBC 0-5 /HPF (0-5) 06/29/23 20:48 Urine WBC 0-3 /HPF (0-5) 06/29/23 20:48 Ur Squamous Epith Cells FEW Squamous (<= Few) 06/29/23 20:48 Urine Bacteria Rare /HPF (None Seen) 06/29/23 20:48 Ur Microscopic Review INDICATED 06/29/23 20:48 Urine Culture Comments INDICATED 06/29/23 20:48 Stl C. diff Tox B Gene NEGATIVE (NEGATIVE) 06/29/23 21:10
[2023-06-30] MEDS: cefTRIAXone 1 GM in SODIUM CHLORIDE 0.9% MINIBAG 100 ML IV SCH (16:35)
[2023-06-30] MEDS ORDERED: CIPROFLOXACIN 400 MG/200 ML 400 MG/200 ML BAG IV SCH (17:00)
[2023-06-30] MEDS: metroNIDAZOLE 500 MG/100 ML 500 MG/100 ML BAG IV SCH (17:12)
[2023-06-30] MEDS: SODIUM CHLORIDE FLUSH 0.9% 10 ML SYRINGE IVP PRN ×3 (17:12→19:56)
[2023-06-30] MEDS: HYDROcod/ACETAM 5/325 MG TABLET PO PRN (19:04)
[2023-07-01] MEDS: HYDROcod/ACETAM 5/325 MG TABLET PO PRN ×5 (00:02→20:57)
[2023-07-01] MEDS: SODIUM CHLORIDE FLUSH 0.9% 10 ML SYRINGE IVP SCH ×3 (00:03→17:02)
[2023-07-01] MEDS ORDERED: diphenhydrAMINE INJ 50 MG/ML VIAL IVP PRN (00:43)
[2023-07-01] MEDS: metroNIDAZOLE 500 MG/100 ML 500 MG/100 ML BAG IV SCH ×3 (01:02→17:02)
[2023-07-01] MEDS: LACTATED RINGERS 1,000 ML IV SCH ×3 (01:02→13:01)
[2023-07-01] MEDS: cefTRIAXone 1 GM in SODIUM CHLORIDE 0.9% MINIBAG 100 ML IV SCH (09:08)
[2023-07-01] MEDS: methylPREDNISolone SUCCINATE 40 MG/ML VIAL IVP SCH (09:08)
[2023-07-01 10:56] LABS: EOSINOPHILS % (AUTO) 0.7 %; HCT - HEMATOCRIT 32.7 % (37.0-47.0); HGB - HEMOGLOBIN 10.6 g/dL (12.0-16.0); LYMPHOCYTES # (AUTO) 0.5 10^3/uL (1.5-3.5); LYMPHOCYTES % (AUTO) 13.2 %; MEAN CORPUSCULAR HEMOGLOBIN 30.3 pg (27.0-31.0); MEAN CORPUSCULAR HGB CONC 32.4 g/dL (32.0-36.0); MEAN CORPUSCULAR VOLUME 93.4 fL (81.0-99.0); MEAN PLATELET VOLUME 8.9 fL (7.9-10.8); MONOCYTES # (AUTO) 0.2 10^3/uL (0.0-1.0); MONOCYTES % (AUTO) 4.9 %; NEUTROPHILS # (AUTO) 3.3 10^3/uL (1.5-6.6); NEUTROPHILS % (AUTO) 79.7 %; PLT - PLATELET COUNT 254 10^3/uL (130-450); RED CELL DISTRIBUTION WIDTH 13.5 % (12.0-15.0); WHITE BLOOD COUNT 4.1 x10^3/uL (4.8-10.8)
[2023-07-01 11:09] LABS: CALCIUM 8.7 mg/dL (8.5-10.3); CREATININE 0.6 mg/dL (0.6-1.3); POTASSIUM 3.2 mmol/L (3.5-4.5)
--- NOTE | 2023-07-01 12:07 | PROVIDER PROGRESS NOTE ---
Assessment/Plan - Problem List (1) Crohn's colitis Assessment/Plan: She had another large loose stool today. She does admit to having cranping. With the at bedside, she admitted she does not use the oral prednisone the way she is supposed to because "she does not like steroids". Her last po Prednisone use was this past Spring. She is on the IV infusions of immunosuppressants, these initially were every 4 weeks then every 6 weeks, and now are every 8 weeks but states she gets breakthrough diarrhea in the seventh and eighth weeks currently. Her pain is controlled here with the [place] that I started yesterday Plan: We will keep her on Flagyl empirically and will continue the IV steroid started by admitting night telemedicine doctor. Will stop Ceftriaxone and add Cipro We will advance her diet as tolerated I reviewed this plan with the patient and her at bedside, today (2) Group B streptococcal UTI Assessment/Plan: Patient had several days of diarrhea. Her UA was not very remarkable with very few WBC and she did not describe dysuria, but had pelvic discomfort/cramping Her UA was abnormal and culture was indicated. The culture is growing Beta hemolytic Strep. It is not riutinely tested for sensitivity Plan: Cont empiric antibiotic that covers strep, iv ceftriaxone - Current Meds Current Meds: Current Medications Generic Name Dose Route Start Last Admin Trade Name Freq PRN Reason Stop Dose Admin Hydrocodone Bitart/Acetaminophen 1 tab 06/30/23 18:33 07/01/23 09:11 Hydrocod/Acetam 5/325 Mg Tablet PO 1 tab Q4HR PRN Administration Moderate Pain (Level 4-6) Diphenhydramine HCl 25 mg 07/01/23 00:43 07/01/23 00:57 Diphenhydramine Inj 50 Mg/Ml Vial IVP 25 mg Q6H PRN Administration Allergy Symptoms Hydromorphone HCl 0.5 mg 06/29/23 23:59 06/30/23 19:56 Hydromorphone 0.5 Mg/0.5 Ml Syringe IVP 0.5 mg Q3H PRN Administration Pain 8 to 10 Lactated Ringer's 1,000 mls @ 100 mls/hr 06/29/23 23:45 07/01/23 11:40 Lr IV Not Given .Q10H FRANK Metronidazole 500 mg in 100 mls @ 100 mls/hr 06/30/23 17:00 07/01/23 10:45 Flagyl 500 Mg/100 Ml IV Infused Q8H FRANK Infusion Ceftriaxone Sodium 1 gm/ 100 mls @ 200 mls/hr 06/30/23 16:13 07/01/23 09:45 Sodium Chloride IV Infused DAILY FRANK Infusion Methylprednisolone 40 mg 06/30/23 09:00 07/01/23 09:08 Methylprednisolone Succinate 40 Mg/Ml Vial IVP 40 mg DAILY FRANK Administration Ondansetron HCl 4 mg 06/29/23 23:59 06/30/23 05:18 Ondansetron 4 Mg/2 Ml Vial IVP 4 mg Q6HR PRN Administration Nausea / Vomiting Sodium Chloride 10 ml 06/29/23 23:59 06/30/23 19:56 Sodium Chloride Flush 0.9% 10 Ml Syringe IVP 10 ml PRN PRN Administration NEEDED PER PROVIDER ORDERS Sodium Chloride 10 ml 06/30/23 01:00 07/01/23 09:09 Sodium Chloride Flush 0.9% 10 Ml Syringe IVP 10 ml 0100,0900,1700 FRANK Administration - Lab Result [place] Diagrams: 07/01/23 10:50 07/01/23 10:50 - Additional Planning My Orders: My Active Orders 06/30/23 16:13 cefTRIAXone [Rocephin] 1 gm Sodium Chloride 0.9% Minibag [Normal Saline 0.9% Minibag] 100 ml IV DAILY 06/30/23 17:00 metroNIDAZOLE 500 MG/100 ML [Flagyl 500 mg/100 ml] 500 mg in 100 ml IV Q8H 06/30/23 18:33 HYDROcod/ACETAM 5/325 [[place] 5/325] 1 tab PO Q4HR PRN 07/01/23 10:50 VITAMIN D 25-HYDROXY [REFLAB] DAILYLAB 07/01/23 Lunch DIET [Soft (Low Fiber) Diet] [DIET] Subjective - Subjective Patient Reports: Feeling Better (Decreased stool output through her colostomy since yesterday. Has an appetite) Objective Vital Signs: Vital Signs - 24 hr 06/30/23 06/30/23 06/30/23 12:18 16:24 20:40 Temperature 36.4 C L 36.2 C L 36.1 C L Heart Rate [ 71 81 67 Brachial] Respiratory 18 18 16 Rate Blood Pressure 154/96 H 126/94 H [Left Brachial artery] Blood Pressure 153/94 H [Right Brachial artery] O2 Saturation 97 100 100 07/01/23 07/01/23 07/01/23 01:00 05:43 09:00 Temperature 36.4 C L 36.3 C L 36.0 C L Heart Rate [ 59 L 51 L 64 Brachial] Respiratory 16 16 16 Rate Blood Pressure 139/79 H 142/71 H [Left Brachial artery] Blood Pressure 143/78 H [Right Brachial artery] O2 Saturation 100 99 100 Oxygen O2 Source Room air I&O (Last 24 Hrs): Intake and Output Totals x24h 06/29/23 06/30/23 07/01/23 23:59 23:59 23:59 Intake Total 1000 3728.333 1370.000 Output Total 450 Balance 1000 3278.333 1370.000 General: Alert, Oriented x3 HEENT: Mucous membr. moist/pink, Other (Appears very fatigued) Neck: Supple, No JVD Neuro: Alert, Non Focal Cardiovascular: Regular rate, No murmurs Respiratory: No respiratory distress Abdomen: Normal bowel sounds, Soft, No tenderness Extremities: No clubbing, No edema, No tenderness/swelling - Results Results: Laboratory Results WBC 4.1 x10^3/uL (4.8-10.8) L 07/01/23 10:50 RBC 3.50 10^6/uL (4.20-5.40) L 07/01/23 10:50 Hgb 10.6 g/dL (12.0-16.0) L 07/01/23 10:50 Hct 32.7 % (37.0-47.0) L 07/01/23 10:50 MCV 93.4 fL (81.0-99.0) 07/01/23 10:50 MCH 30.3 pg (27.0-31.0) 07/01/23 10:50 MCHC 32.4 g/dL (32.0-36.0) 07/01/23 10:50 RDW 13.5 % (12.0-15.0) 07/01/23 10:50 Plt Count 254 10^3/uL (130-450) 07/01/23 10:50 MPV 8.9 fL (7.9-10.8) 07/01/23 10:50 Neut # (Auto) 3.3 10^3/uL (1.5-6.6) 07/01/23 10:50 Lymph # (Auto) 0.5 10^3/uL (1.5-3.5) L 07/01/23 10:50 [place] # (Auto) 0.2 10^3/uL (0.0-1.0) 07/01/23 10:50 Eos # (Auto) 0.0 10^3/uL (0.0-0.7) 07/01/23 10:50 Baso # (Auto) 0.0 10^3/uL (0.0-0.1) 07/01/23 10:50 Absolute Nucleated RBC 0.00 x10^3/uL 07/01/23 10:50 Nucleated RBC % 0.0 /100WBC 07/01/23 10:50 Sodium 137 mmol/L (135-145) 07/01/23 10:50 Potassium 3.2 mmol/L (3.5-4.5) L 07/01/23 10:50 Chloride 105 mmol/L (101-111) 07/01/23 10:50 Carbon Dioxide 25 mmol/L (21-32) 07/01/23 10:50 Anion Gap 7.0 (6-13) 07/01/23 10:50 BUN 7 mg/dL (6-20) 07/01/23 10:50 Creatinine 0.6 mg/dL (0.6-1.3) 07/01/23 10:50 Estimated GFR (MDRD) 101 (>89) 07/01/23 10:50 Glucose 169 mg/dL (74-104) H 07/01/23 10:50 Calcium 8.7 mg/dL (8.5-10.3) 07/01/23 10:50 Total Bilirubin 0.2 mg/dL (0.2-1.0) 06/29/23 20:08 AST 24 IU/L (10-42) 06/29/23 20:08 ALT 25 IU/L (10-60) 06/29/23 20:08 Alkaline Phosphatase 99 IU/L (42-121) 06/29/23 20:08 C-React Prot High Sens 2.42 mg/L 06/29/23 20:08 Total Protein 6.9 g/dL (6.4-8.9) 06/29/23 20:08 Albumin 3.8 g/dL (3.2-5.5) 06/29/23 20:08 Globulin 3.1 g/dL (2.1-4.2) 06/29/23 20:08 Albumin/Globulin Ratio 1.2 (1.0-2.2) 06/29/23 20:08 Lipase 19 U/L (11-82) 06/29/23 20:08 Vitamin B12 744 pg/mL (180-914) 07/01/23 10:50 Urine Color YELLOW 06/29/23 20:48 Urine Clarity CLEAR (CLEAR) 06/29/23 20:48 Urine pH 5.0 PH (5.0-7.5) 06/29/23 20:48 Ur Specific [place] <=1.005 (1.002-1.030) 06/29/23 20:48 Urine Protein NEGATIVE mg/dL (NEGATIVE) 06/29/23 20:48 Urine Glucose (UA) NEGATIVE mg/dL (NEGATIVE) 06/29/23 20:48 Urine Ketones NEGATIVE mg/dL (NEGATIVE) 06/29/23 20:48 Urine Occult Blood TRACE-INTA (NEGATIVE) 06/29/23 20:48 Urine Nitrite NEGATIVE (NEGATIVE) 06/29/23 20:48 Urine Bilirubin NEGATIVE (NEGATIVE) 06/29/23 20:48 Urine Urobilinogen 0.2 (NORMAL) E.U./dL (NORMAL) 06/29/23 20:48 Ur Leukocyte Esterase TRACE (NEGATIVE) H 06/29/23 20:48 Urine RBC 0-5 /HPF (0-5) 06/29/23 20:48 Urine WBC 0-3 /HPF (0-5) 06/29/23 20:48 Ur Squamous Epith Cells FEW Squamous (<= Few) 06/29/23 20:48 Urine Bacteria Rare /HPF (None Seen) 06/29/23 20:48 Ur Microscopic Review INDICATED 06/29/23 20:48 Urine Culture Comments INDICATED 06/29/23 20:48 Stl C. diff Tox B Gene NEGATIVE (NEGATIVE) 06/29/23 21:10
[2023-07-01] MEDS: HYDROmorphone 0.5 MG/0.5 ML SYRINGE IVP PRN (16:12)
[2023-07-01] MEDS: POTASSIUM CHLOR 10 MEQ/100 ML 10 MEQ/100 ML BAG IV SCH ×3 (19:23→21:30)
[2023-07-01] MEDS: diphenhydrAMINE INJ 50 MG/ML VIAL IVP PRN (20:58)
[2023-07-01] MEDS ORDERED: ZOLPIDEM 5 MG TABLET PO PRN (23:31)
[2023-07-02] MEDS: metroNIDAZOLE 500 MG/100 ML 500 MG/100 ML BAG IV SCH ×3 (00:05→17:29)
[2023-07-02] MEDS: LACTATED RINGERS 1,000 ML IV SCH (00:05)
[2023-07-02] MEDS: SODIUM CHLORIDE FLUSH 0.9% 10 ML SYRINGE IVP SCH ×3 (00:05→17:30)
[2023-07-02] MEDS: HYDROcod/ACETAM 5/325 MG TABLET PO PRN ×4 (01:02→22:32)
[2023-07-02 06:27] LABS: CALCIUM 9.2 mg/dL (8.5-10.3); CREATININE 0.6 mg/dL (0.6-1.3); POTASSIUM 3.8 mmol/L (3.5-4.5)
[2023-07-02] MEDS: methylPREDNISolone SUCCINATE 40 MG/ML VIAL IVP SCH (09:30)
[2023-07-02] MEDS: cefTRIAXone 1 GM in SODIUM CHLORIDE 0.9% MINIBAG 100 ML IV SCH (10:48)
[2023-07-02 11:02] LABS: BASOPHILS % (AUTO) 1.1 %; EOSINOPHILS % (AUTO) 0.5 %; HCT - HEMATOCRIT 35.7 % (37.0-47.0); HGB - HEMOGLOBIN 11.5 g/dL (12.0-16.0); LYMPHOCYTES # (AUTO) 0.9 10^3/uL (1.5-3.5); LYMPHOCYTES % (AUTO) 24.6 %; MEAN CORPUSCULAR HEMOGLOBIN 29.9 pg (27.0-31.0); MEAN CORPUSCULAR HGB CONC 32.2 g/dL (32.0-36.0); MEAN PLATELET VOLUME 8.9 fL (7.9-10.8); MONOCYTES # (AUTO) 0.3 10^3/uL (0.0-1.0); MONOCYTES % (AUTO) 7.6 %; NEUTROPHILS # (AUTO) 2.4 10^3/uL (1.5-6.6); NEUTROPHILS % (AUTO) 65.7 %; PLT - PLATELET COUNT 284 10^3/uL (130-450); RED BLOOD COUNT 3.84 10^6/uL (4.20-5.40); RED CELL DISTRIBUTION WIDTH 13.7 % (12.0-15.0); WHITE BLOOD COUNT 3.7 x10^3/uL (4.8-10.8)
--- NOTE | 2023-07-02 14:39 | PROVIDER PROGRESS NOTE ---
Assessment/Plan - Problem List (1) Crohn's colitis Assessment/Plan: She had another large loose stool today. She does admit to having mild cramping. Today there is leaking around the colostomy bag and she thinks it is because of IV fluid Yesterday with the at bedside, she admitted she does not use the oral prednisone the way she is supposed to because "she does not like steroids". Her last po Prednisone use was this past Spring. She is on the IV infusions of immunosuppressants, these initially were every 4 weeks then every 6 weeks, and now are every 8 weeks but stated she gets breakthrough diarrhea in the seventh and eighth weeks currently. Her pain is controlled here with the [place] that I started Plan: I will stop her IV fluids We will cont to advance her diet as tolerated. We will keep her on Cipro and Flagyl empirically and the IV steroids If she only has 1 diarrheal BM per day, I will transition her IV antibiotics to oral antibiotics and anticipate discharge soon I reviewed this plan with the patient and her at bedside, today (2) Low vitamin D level Assessment/Plan: Vitamin D level came back at 15 (normal is 30 and above). This is probably due to poor absorption from her having had colon surgery and has a colostomy Plan: We will give vitamin D replacement (3) Group B streptococcal UTI Assessment/Plan: Patient had several days of diarrhea. Her UA had few WBC and she did not descri be dysuria, but had pelvic discomfort/cramping Her UA was abnormal and culture was indicated. The culture is growing Beta hemolytic Strep, which is not routinely tested for sensitivities Plan: Cont empiric antibiotic that covers strep, iv Cipro (4) HTN Assessment/Plan: The patient has reported insomnia the past 2 nights. She and I thought it was from being woken up through the middle of the night. The first night she got Benadryl, last night she got Benadryl and Ambien. Today she told me she was "too sleepy with Ambien". For the last 2 days when awake she feels anxious and jittery. She requests that her steroid dose be decreased. Today her blood pressure has risen to 187/114 and the nurse confirmed that she does drink wine. Plan: I will decrease the Solu-Medrol from 40 mg daily to 20 mg daily Will order CIWA protocol and as needed Ativan iv. If giving iv Ativan does not improve the hypertension, will give IV Hydralazine push as needed Will stop Ambien - Current Meds Current Meds: Current Medications Generic Name Dose Route Start Last Admin Trade Name Freq PRN Reason Stop Dose Admin Hydrocodone Bitart/Acetaminophen 1 tab 06/30/23 18:33 07/02/23 10:24 Hydrocod/Acetam 5/325 Mg Tablet PO 1 tab Q4HR PRN Administration Moderate Pain (Level 4-6) Diphenhydramine HCl 25 mg 07/01/23 18:48 07/01/23 20:58 Diphenhydramine Inj 50 Mg/Ml Vial IVP 25 mg QPM PRN Administration Insomnia Hydromorphone HCl 0.5 mg 06/29/23 23:59 07/01/23 16:12 Hydromorphone 0.5 Mg/0.5 Ml Syringe IVP 0.5 mg Q3H PRN Administration Pain 8 to 10 Metronidazole 500 mg in 100 mls @ 100 mls/hr 06/30/23 17:00 07/02/23 12:11 Flagyl 500 Mg/100 Ml IV Infused Q8H FRANK Infusion Ceftriaxone Sodium 1 gm/ 100 mls @ 200 mls/hr 06/30/23 16:13 07/02/23 11:42 Sodium Chloride IV Infused DAILY FRANK Infusion Methylprednisolone 40 mg 06/30/23 09:00 07/02/23 09:30 Methylprednisolone Succinate 40 Mg/Ml Vial IVP 40 mg DAILY FRANK Administration Ondansetron HCl 4 mg 06/29/23 23:59 06/30/23 05:18 Ondansetron 4 Mg/2 Ml Vial IVP 4 mg Q6HR PRN Administration Nausea / Vomiting Sodium Chloride 10 ml 06/29/23 23:59 06/30/23 19:56 Sodium Chloride Flush 0.9% 10 Ml Syringe IVP 10 ml PRN PRN Administration NEEDED PER PROVIDER ORDERS Sodium Chloride 10 ml 06/30/23 01:00 07/02/23 10:47 Sodium Chloride Flush 0.9% 10 Ml Syringe IVP 10 ml 0100,0900,1700 FRANK Administration Zolpidem Tartrate 5 mg 07/01/23 23:31 07/02/23 00:03 Zolpidem 5 Mg Tablet PO 5 mg QPM PRN Administration Insomnia - Lab Result Fish Bone Diagrams: 07/02/23 10:40 07/02/23 05:45 - Additional Planning My Orders: My Active Orders 07/01/23 18:48 diphenhydrAMINE INJ [Benadryl Inj] 25 mg IVP QPM PRN 07/01/23 18:50 Vital Signs- Do Not Awaken For [RC] HS 07/02/23 Lunch DIET [Soft (Low Fiber) Diet] [DIET] Subjective - Subjective Patient Reports: Other (Feels jittery, has incomnia but "Ambien was too strong".) Objective Vital Signs: Vital Signs - 24 hr 07/01/23 07/01/23 07/01/23 15:56 17:53 18:54 Temperature 36.4 C L Heart Rate [ 56 L 65 66 Brachial] Respiratory 20 Rate Blood Pressure 191/99 H 173/90 H [Left Brachial artery] Blood Pressure 168/85 H 185/97 H [Right Brachial artery] O2 Saturation 97 07/02/23 07/02/23 00:24 08:25 Temperature 36.4 C L 35.7 C L Heart Rate [ 54 L 59 L Brachial] Respiratory 16 18 Rate Blood Pressure 159/77 H 171/94 H [Left Brachial artery] Blood Pressure [Right Brachial artery] O2 Saturation 96 99 Oxygen O2 Source Room air I&O (Last 24 Hrs): Intake and Output Totals x24h 06/30/23 07/01/23 07/02/23 23:59 23:59 23:59 Intake Total 3728.333 4516.667 645 Output Total 450 Balance 3278.333 4516.667 645 General: Alert, Oriented x3 HEENT: Mucous membr. moist/pink Neck: Supple, No JVD Neuro: Alert, Non Focal, Other (No tremor, no nystagmus) Cardiovascular: Regular rate Respiratory: No respiratory distress Abdomen: Soft, No tenderness, Other (R colostomy bag) Extremities: No clubbing, No edema, No tenderness/swelling - Results Results: Laboratory Results WBC 3.7 x10^3/uL (4.8-10.8) L 07/02/23 10:40 RBC 3.84 10^6/uL (4.20-5.40) L 07/02/23 10:40 Hgb 11.5 g/dL (12.0-16.0) L 07/02/23 10:40 Hct 35.7 % (37.0-47.0) L 07/02/23 10:40 MCV 93.0 fL (81.0-99.0) 07/02/23 10:40 MCH 29.9 pg (27.0-31.0) 07/02/23 10:40 MCHC 32.2 g/dL (32.0-36.0) 07/02/23 10:40 RDW 13.7 % (12.0-15.0) 07/02/23 10:40 Plt Count 284 10^3/uL (130-450) 07/02/23 10:40 MPV 8.9 fL (7.9-10.8) 07/02/23 10:40 Neut # (Auto) 2.4 10^3/uL (1.5-6.6) 07/02/23 10:40 Lymph # (Auto) 0.9 10^3/uL (1.5-3.5) L 07/02/23 10:40 [place] # (Auto) 0.3 10^3/uL (0.0-1.0) 07/02/23 10:40 Eos # (Auto) 0.0 10^3/uL (0.0-0.7) 07/02/23 10:40 Baso # (Auto) 0.0 10^3/uL (0.0-0.1) 07/02/23 10:40 Absolute Nucleated RBC 0.00 x10^3/uL 07/02/23 10:40 Nucleated RBC % 0.0 /100WBC 07/02/23 10:40 Sodium 141 mmol/L (135-145) 07/02/23 05:45 Potassium 3.8 mmol/L (3.5-4.5) 07/02/23 05:45 Chloride 109 mmol/L (101-111) 07/02/23 05:45 Carbon Dioxide 26 mmol/L (21-32) 07/02/23 05:45 Anion Gap 6.0 (6-13) 07/02/23 05:45 BUN 5 mg/dL (6-20) L 07/02/23 05:45 Creatinine 0.6 mg/dL (0.6-1.3) 07/02/23 05:45 Estimated GFR (MDRD) 101 (>89) 07/02/23 05:45 Glucose 84 mg/dL (74-104) 07/02/23 05:45 Calcium 9.2 mg/dL (8.5-10.3) 07/02/23 05:45 Total Bilirubin 0.2 mg/dL (0.2-1.0) 06/29/23 20:08 AST 24 IU/L (10-42) 06/29/23 20:08 ALT 25 IU/L (10-60) 06/29/23 20:08 Alkaline Phosphatase 99 IU/L (42-121) 06/29/23 20:08 C-React Prot High Sens 2.42 mg/L 06/29/23 20:08 Total Protein 6.9 g/dL (6.4-8.9) 06/29/23 20:08 Albumin 3.8 g/dL (3.2-5.5) 06/29/23 20:08 Globulin 3.1 g/dL (2.1-4.2) 06/29/23 20:08 Albumin/Globulin Ratio 1.2 (1.0-2.2) 06/29/23 20:08 Lipase 19 U/L (11-82) 06/29/23 20:08 Vitamin B12 744 pg/mL (180-914) 07/01/23 10:50 Vitamin D 25-Hydroxy 15.6 ng/mL (30.0-100.0) L 07/01/23 10:50 Urine Color YELLOW 06/29/23 20:48 Urine Clarity CLEAR (CLEAR) 06/29/23 20:48 Urine pH 5.0 PH (5.0-7.5) 06/29/23 20:48 Ur Specific [place] <=1.005 (1.002-1.030) 06/29/23 20:48 Urine Protein NEGATIVE mg/dL (NEGATIVE) 06/29/23 20:48 Urine Glucose (UA) NEGATIVE mg/dL (NEGATIVE) 06/29/23 20:48 Urine Ketones NEGATIVE mg/dL (NEGATIVE) 06/29/23 20:48 Urine Occult Blood TRACE-INTA (NEGATIVE) 06/29/23 20:48 Urine Nitrite NEGATIVE (NEGATIVE) 06/29/23 20:48 Urine Bilirubin NEGATIVE (NEGATIVE) 06/29/23 20:48 Urine Urobilinogen 0.2 (NORMAL) E.U./dL (NORMAL) 06/29/23 20:48 Ur Leukocyte Esterase TRACE (NEGATIVE) H 06/29/23 20:48 Urine RBC 0-5 /HPF (0-5) 06/29/23 20:48 Urine WBC 0-3 /HPF (0-5) 06/29/23 20:48 Ur Squamous Epith Cells FEW Squamous (<= Few) 06/29/23 20:48 Urine Bacteria Rare /HPF (None Seen) 06/29/23 20:48 Ur Microscopic Review INDICATED 06/29/23 20:48 Urine Culture Comments INDICATED 06/29/23 20:48 Stl C. diff Tox B Gene NEGATIVE (NEGATIVE) 06/29/23 21:10
[2023-07-02] MEDS ORDERED: LORazepam 2 MG/ML VIAL IVP PRN (16:44)
[2023-07-02] MEDS ORDERED: hydrALAZINE INJ 20 MG/ML VIAL IVP PRN (17:04)
[2023-07-02] MEDS: CHOLECALCIFEROL 400 UNIT TABLET PO SCH (17:30)
[2023-07-02] MEDS: diphenhydrAMINE INJ 50 MG/ML VIAL IVP PRN (22:32)
[2023-07-03] MEDS: metroNIDAZOLE 500 MG/100 ML 500 MG/100 ML BAG IV SCH ×2 (00:04→09:18)
[2023-07-03] MEDS: SODIUM CHLORIDE FLUSH 0.9% 10 ML SYRINGE IVP SCH ×2 (01:09→08:44)
[2023-07-03] MEDS: HYDROcod/ACETAM 5/325 MG TABLET PO PRN (03:26)
[2023-07-03 05:34] VITALS: O2SAT 95
[2023-07-03] MEDS: HYDROmorphone 0.5 MG/0.5 ML SYRINGE IVP PRN (05:51)
[2023-07-03 05:55] LABS: CALCIUM 9.1 mg/dL (8.5-10.3); CREATININE 0.6 mg/dL (0.6-1.3); POTASSIUM 3.5 mmol/L (3.5-4.5)
[2023-07-03 07:59] VITALS: BP 135/78
[2023-07-03] MEDS: CHOLECALCIFEROL 400 UNIT TABLET PO SCH (08:22)
[2023-07-03] MEDS: cefTRIAXone 1 GM in SODIUM CHLORIDE 0.9% MINIBAG 100 ML IV SCH (08:24)
[2023-07-03] MEDS ORDERED: methylPREDNISolone SUCCINATE 40 MG/ML VIAL IVP SCH (09:00)
--- NOTE | 2023-07-03 11:13 | Discharge Plan ---
Discharge Plan Problem Reviewed?: Yes Disposition: Home, Self Care Condition: Fair Prescriptions: Sulfamethox/Trimeth 800/160 [Bactrim Ds] 1 tablet PO BID 7 Days #14 tablet Ergocalciferol (Vitamin D2) [Drisdol] 1,250 mcg PO DAILY #30 cap metroNIDAZOLE [Flagyl] 250 mg PO TID #21 tablet Loperamide [Imodium] 2 mg PO TID PRN #15 cap PRN Reason: Diarrhea HYDROcod/ACETAM 5/325 [[place] 5/325] 1 tab PO Q8H PRN #8 tablet PRN Reason: Severe Pain (Level 7-10) Diet: Soft (Easily digestable, low fiber diet advised) Activity Restrictions: Activity as Tolerated Shower Restrictions: No Driving Restrictions: No Instruction Topics: Colitis Ulcerative Dc Health Concerns: You were hospitalized to treat a flareup of Crohn's colitis and a urinary tract infection. You received several days of IV antibiotics. We tested you for C. difficile and it is negative. Your diet was adjusted, to make it easily digestible. You are being discharged home today with prescriptions to take orally to keep treating the colitis and urinary tract infection. There is also a prescription for Imodium to help decrease the diarrhea. We also found you to be very vitamin D deficient, so a new prescription for vitamin D was also sent. You received IV steroids here. It is advised that you now take your 20 mg oral Prednisone steroid for the next 1 week, at least, then taper it down to off, decreasing the dose weekly, as you have done in the past. You may resume your other pre- hospital treatments. Remember to talk to your primary care provider or your [facility] Manager about the diarrhea that comes on weeks 7 and 8 before you get the Infliximab injections, every 8 weeks. Lastly, several tablets of [place] have been prescribed for you, to use for severe pain. You should see your primary care provider or [facility] Manager in the next several weeks for hospital follow-up visit. Plan of Treatment: As above. Care Goals: Improvement in symptoms and stabilization are the goals. Assessment: The patient understands and is agreeable with the plan. Additional Instructions or Follow Up instructions: If you have new or worsening symptoms, call your PCP or your [facility] Manager for advice, or come to the ER. No Smoking: If you smoke, Please STOP! Call for help. Follow-up with: Amy Yancey ARNP [Primary Care Provider] -
--- NOTE | 2023-07-03 11:24 | DISCHARGE SUMMARY ---
Discharge Summary Admit Date: 06/30/23 Discharge Date: 07/03/23 Discharging Provider: Dr Tejal Luis Primary Care Provider: BARBARA Yancey Condition at Discharge: Fair Discharge Disposition: 01 Home, Self Care - HPI History of Present Illness: Chief Complaint: - Abdominal pain, nausea, vomiting, and diarrhea. History of Present Illness: - Age/Sex: 63-year-old female. - Duration of Symptoms: Last 4 days with progressive worsening. - Previous Medical History: Crohn's disease, ileostomy in the past. - Symptoms: Increased ileostomy output, chills (no fever), no shortness of breath, chest pain, lower extremity edema, or dysuria. - Medication Taken: None, she has not been taking Prednisone for 3 mos. - Treatment: Immunotherapy every 8 weeks. - Exclusions: No hematemesis, melena, or hematochezia. - Alcohol: Occasionally drinks wine. - Smoking: None. - Family Medical History: No inflammatory bowel disease or GI cancers. - Weight: No recent weight loss. Exam remarkable for mild periumbilical tenderness, Right lower quadrant ileostomy present with edematous skin around it, no rebound or guarding. Labs remarkable for WBC 3.8, CT abd shows changes of colitis, U/A: (+) Leukocyte Esterase, and 0-3 WBC, and rare bacteria, cx indicated Patient will be admitted for managing a Crohn's disease flare and she probably also has a UTI from her work up. - HOSPITAL COURSE Hospital Course: (1) Crohn's colitis She had diarrhea leaking around the colostomy bag. We had her on clear liquids, iv hydration, and empiric IV Cipro and Flagyl. IV Solumedrol was also ordered. She admitted she does not use the oral prednisone the way she is supposed to because "she does not like steroids". Her last po Prednisone use was in the Spring. She described getting the IV infusions of immunosuppressants, these initially were every 4 weeks then every 6 weeks, and now are every 8 weeks but stated she gets breakthrough diarrhea in the seventh and eighth weeks currently. Her pain was controlled here with [place]. Eventually her diet was advanced and she was able to be discharged to take several more days of oral antibiotics. (2) Group B streptococcal UTI Her UA did have WBC, and she did not describe dysuria, but had pelvic discomfort/cramping. She likely got a UTI from several days of diarrhea. She was on empiric iv Cipro. The culture grew Beta hemolytic Strep, which is not rout inely tested for sensitivities. She was discharged home to take several days of po Bactrim. (3) HTN The patient had HTN on her last day and felt anxious and jittery and requested that her steroid dose be decreased. (4) Low vitamin D level Vitamin D level came back at 15 (normal is 30 and above). This was likely from poor absorption after colon surgery and colostomy. She was prescribed vitamin D3 suppl here and at discharge. - ALLERGIES Allergies/Adverse Reactions: Allergies Allergy/AdvReac Type Severity Reaction Status Date / Time Penicillins Allergy Anaphylaxis Verified 07/03/23 20:19 - MEDICATIONS Home Medications: Ambulatory Orders Medication Instructions Recorded Confirmed Infliximab-Dyyb [Inflectra] 100 mg IV ONCE 06/29/23 07/04/23 Acetaminophen [Tylenol] 650 mg PO Q4HR PRN tab 07/03/23 07/04/23 Ergocalciferol (Vitamin D2) 1,250 mcg PO DAILY #30 cap 07/03/23 07/04/23 [Drisdol] HYDROcod/ACETAM 5/325 [[place] 5/325] 1 tab PO Q8H PRN #8 tablet 07/03/23 07/04/23 Loperamide [Imodium] 2 mg PO TID PRN #15 cap 07/03/23 07/04/23 Sulfamethox/Trimeth 800/160 1 tablet PO BID 7 Days #14 tablet 07/03/23 07/04/23 [Bactrim Ds] metroNIDAZOLE [Flagyl] 250 mg PO TID #21 tablet 07/03/23 07/04/23 predniSONE [Deltasone] 20 mg PO DAILY #30 tab 07/03/23 07/04/23 LORazepam [Ativan] 1 mg PO DAILY PRN #5 tablet 07/06/23 Magnesium Oxide [Mag-Oxide] 200 mg PO DAILY #5 tablet 07/06/23 Thiamine [Vitamin B-1] 100 mg PO DAILY #30 tab 07/06/23 - PHYSICAL EXAM AT DISCHARGE General Appearance: positive: No acute distress, Alert, Other (Short female (4 foot 10), average weight) Eyes Bilateral: positive: Normal inspection, EOMI ENT: positive: ENT inspection nml, No signs of dehydration Neck: positive: Nml inspection, No JVD Respiratory: positive: No respiratory distress, Breath sounds nml Cardiovascular: positive: Regular rate & rhythm, No murmur Abdomen: positive: Non-tender, Nml bowel sounds, No distention, Other (colostomy bag R side) Skin: positive: Warm, Dry Extremities: positive: Non-tender, No pedal edema Neurologic/Psychiatric: positive: Oriented x3, Motor nml - LABS Result Diagrams: 07/02/23 10:40 07/03/23 05:38 - DIAGNOSTIC IMAGING Diagnostic Imaging Results: Final report reviewed - FOLLOW UP Follow Up: See PCP in 1 to 2 weeks for a hospital follow-up visit. - TIME SPENT Time Spent in Discharge (Minutes): 40
== END 2023-07-03 13:05 | disposition home or self-care (01) | DRG 386 ==
LOC: ED 19:49 → MS2 23:59
PROVIDERS: ADMIT Internal Medicine; ATTEND Internal Medicine
DX: K50.10 Crohn's disease of large intestine without complications (principal); N39.0 Urinary tract infection, site not specified; B95.1 Streptococcus, group B, as the cause of diseases classified elsewhere; I10 Essential (primary) hypertension; E55.9 Vitamin D deficiency, unspecified; E86.0 Dehydration; G47.00 Insomnia, unspecified; T42.6X5A Adverse effect of other antiepileptic and sedative-hypnotic drugs, initial encounter; Y92.239 Unspecified place in hospital as the place of occurrence of the external cause; R40.0 Somnolence; Z79.52 Long term (current) use of systemic steroids; Z88.0 Allergy status to penicillin; Z93.2 Ileostomy status
CPT/HCPCS: 36415; 74177; 80048; 80053; 81001; 82306; 82607; 83690; 85025; 86141; 87045; 87046; 87077; 87086; 87427; 87493; 96361; 96374; 96375; 96376; 99284; 99285; A6250; A9270; J1170; J1200; J2060; J7120; Q9967; 81003

== ENCOUNTER 2023-07-03 19:56 | Inpatient (IN) | payer OTHER ==
[2023-07-03 21:12] LABS: BASOPHILS % (AUTO) 0.3 %; HCT - HEMATOCRIT 39.6 % (37.0-47.0); HGB - HEMOGLOBIN 12.9 g/dL (12.0-16.0); LYMPHOCYTES # (AUTO) 0.8 10^3/uL (1.5-3.5); LYMPHOCYTES % (AUTO) 9.7 %; MEAN CORPUSCULAR HEMOGLOBIN 30.2 pg (27.0-31.0); MEAN CORPUSCULAR HGB CONC 32.6 g/dL (32.0-36.0); MEAN CORPUSCULAR VOLUME 92.7 fL (81.0-99.0); MEAN PLATELET VOLUME 8.9 fL (7.9-10.8); MONOCYTES # (AUTO) 0.4 10^3/uL (0.0-1.0); MONOCYTES % (AUTO) 4.9 %; NEUTROPHILS # (AUTO) 6.6 10^3/uL (1.5-6.6); NEUTROPHILS % (AUTO) 84.7 %; PLT - PLATELET COUNT 316 10^3/uL (130-450); RED BLOOD COUNT 4.27 10^6/uL (4.20-5.40); RED CELL DISTRIBUTION WIDTH 13.5 % (12.0-15.0); WHITE BLOOD COUNT 7.7 x10^3/uL (4.8-10.8)
[2023-07-03 21:26] LABS: ALBUMIN 4.2 g/dL (3.2-5.5); ALBUMIN/GLOBULIN RATIO 1.3 (1.0-2.2); BILIRUBIN,TOTAL 0.3 mg/dL (0.2-1.0); CALCIUM 9.4 mg/dL (8.5-10.3); CREATININE 0.7 mg/dL (0.4-1.0); MAGNESIUM 1.5 mg/dL (1.7-2.8); POTASSIUM 3.1 mmol/L (3.5-5.0); TOTAL PROTEIN 7.5 g/dL (6.7-8.2)
[2023-07-03] MEDS ORDERED: LORazepam 2 MG/ML VIAL IVP STA (22:00)
[2023-07-03] MEDS ORDERED: LORazepam 2 MG/ML VIAL ONE (22:06)
[2023-07-03 22:39] LABS: MUDS CUTOFF CONCENTRATIONS CUTOFF CONC BELOW:
[2023-07-03 22:39] LABS: VBG PH 7.418 (7.31-7.41)
[2023-07-03 22:40] LABS: BASOPHILS % (AUTO) 0.3 %; HCT - HEMATOCRIT 36.4 % (37.0-47.0); HGB - HEMOGLOBIN 11.9 g/dL (12.0-16.0); LYMPHOCYTES # (AUTO) 0.8 10^3/uL (1.5-3.5); LYMPHOCYTES % (AUTO) 12.4 %; MEAN CORPUSCULAR HEMOGLOBIN 30.2 pg (27.0-31.0); MEAN CORPUSCULAR HGB CONC 32.7 g/dL (32.0-36.0); MEAN CORPUSCULAR VOLUME 92.4 fL (81.0-99.0); MEAN PLATELET VOLUME 8.8 fL (7.9-10.8); MONOCYTES # (AUTO) 0.4 10^3/uL (0.0-1.0); NEUTROPHILS # (AUTO) 5.1 10^3/uL (1.5-6.6); NEUTROPHILS % (AUTO) 80.7 %; PLT - PLATELET COUNT 286 10^3/uL (130-450); RED BLOOD COUNT 3.94 10^6/uL (4.20-5.40); RED CELL DISTRIBUTION WIDTH 13.5 % (12.0-15.0); VBG HCO3 20.6 mmol/L (23-28); VBG OXYGEN SATURATION 97.7 % (60-80); VBG PCO2 32.7 mmHg (41-51); VBG TOTAL CO2 21.6 mmol/L (24-29); WHITE BLOOD COUNT 6.3 x10^3/uL (4.8-10.8)
[2023-07-03 22:48] LABS: INR 1.1 (0.8-1.2); PT - PROTHROMBIN TIME 11.7 secs (9.9-12.6)
[2023-07-03 22:51] LABS: AMPHETAMINE SCREEN,URINE NEGATIVE (NEGATIVE); BARBITURATE SCREEN,UR NEGATIVE (NEGATIVE); BENZODIAZEPINES SCREEN, URINE NEGATIVE (NEGATIVE); COCAINE SCREEN URINE NEGATIVE (NEGATIVE); METHADONE SCREEN, URINE NEGATIVE (NEGATIVE); METHAMPHETAMINES SCREEN, URINE NEGATIVE (NEGATIVE); OPIATE SCREEN, URINE POSITIVE (NEGATIVE); OXYCODONE SCREEN, URINE NEGATIVE (NEGATIVE); PROPOXYPHENE SCREEN, URINE NEGATIVE (NEGATIVE); THC CANNABINOID SCREEN, URINE NEGATIVE (NEGATIVE); TRICYCLIC ANTIDEPRESSANT,URINE NEGATIVE (NEGATIVE)
[2023-07-03 23:10] LABS: ACETAMINOPHEN 1.1 ug/mL; BUN - BLOOD UREA NITROGEN 7 mg/dL (6-20)
[2023-07-03 23:17] LABS: ALBUMIN 3.8 g/dL (3.2-5.5); ALBUMIN/GLOBULIN RATIO 1.2 (1.0-2.2); ALKALINE PHOSPHATASE 75 IU/L (42-121); ALT ALANINE AMINOTRANSFERASE 30 IU/L (10-60); AST ASPARTATE AMINOTRANSFERASE 35 IU/L (10-42); BILIRUBIN,TOTAL 0.3 mg/dL (0.2-1.0); CALCIUM 9.2 mg/dL (8.5-10.3); CARBON DIOXIDE - CO2 21 mmol/L (21-32); CHLORIDE 105 mmol/L (101-111); CREATININE 0.8 mg/dL (0.4-1.0); ETOH - ETHANOL < 10.0 mg/dL; GFR - MDRD 72 (>89); GLUCOSE 160 mg/dL (70-100); LIPASE 22 U/L (22-51); MAGNESIUM 1.7 mg/dL (1.7-2.8); POTASSIUM 2.8 mmol/L (3.5-5.0); SODIUM 140 mmol/L (135-145)
[2023-07-03 23:18] LABS: SALICYLATE < 1.5 mg/dL
--- NOTE | 2023-07-04 00:03 | CT Report ---
PROCEDURE: HEAD WO INDICATIONS: Seizure TECHNIQUE: Noncontrast 4.5 mm thick angled axial sections acquired from the foramen magnum to the vertex. For r adiation dose reduction, the following was used: automated exposure control, adjustment of mA and/or kV according to patient size. COMPARISON: None. FINDINGS: Image quality: Excellent. CSF spaces: Basal cisterns are patent. No extra-axial fluid collections. Ventricles are normal in size and shape. Brain: No intracranial hemorrhage, mass, or mass effect. [place]-white matter interface appears preser romeo. Skull and face: Calvarium and visualized facial bones are intact, without suspicious lesions. Sinuses: Visualized sinuses and mastoids are clear. IMPRESSION: 1. No acute intracranial abnormality. Reviewed by: Vance Calderon MD on 07/04/2023 12:02 AM PDT Approved by: Vance Calderon MD on 07/04/2023 12:02 AM PDT Station ID: [id number]
[2023-07-04] MEDS ORDERED: THIAMINE 100 MG TABLET PO STA (00:55)
[2023-07-04] MEDS ORDERED: oxyCODONE 5 MG TABLET PO STA (00:59)
--- NOTE | 2023-07-04 01:12 | ED Physician Documentation ---
History of Present Illness - Stated complaint Stated Complaint: MED REACTION - Chief complaint Chief Complaint: General - Additonal information Additional information: Presents to the emergency department with tremulousness, agitation, concern for medication reaction. Past medical significant for Crohn's disease. Recent hospitalization with discharge earlier today for Crohn's flare. Treated with prednisone, and discharged on loperamide, Bactrim, Flagyl, Vicodin. Review of past medical record patient was on a intermittent CIWA protocol for agitation and insomnia during her previous hospitalization. She and her endorse for every day drinking although they state "not that much" and "usually just a few beers and some wine". Denies any history of alcohol withdrawal in the past. Today at home had increasing agitation and tremulousness as well as racing heart. Stated that this happened shortly after she took all 4 of her medications. He denied any alcohol since discharge from the hospital. Denies any fever, chills, chest pain, shortness of breath. 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 : None HEENT: None Psych: None Musculoskeletal: None Derm: None - Past Surgical History Past Surgical History: Yes General: Bowel surgery /SEMICONDUCTOR WAFERS MARKER: section Derm: Other - Present Medications Home Medications: Ambulatory Orders Medication Instructions Recorded Confirmed Infliximab-Dyyb [Inflectra] 100 mg IV ONCE 06/29/23 06/29/23 Acetaminophen [Tylenol] 650 mg PO Q4HR PRN tab 07/03/23 Ergocalciferol (Vitamin D2) 1,250 mcg PO DAILY #30 cap 07/03/23 [Drisdol] HYDROcod/ACETAM 5/325 [[place] 5/325] 1 tab PO Q8H PRN #8 tablet 07/03/23 Loperamide [Imodium] 2 mg PO TID PRN #15 cap 07/03/23 Sulfamethox/Trimeth 800/160 1 tablet PO BID 7 Days #14 tablet 07/03/23 [Bactrim Ds] metroNIDAZOLE [Flagyl] 250 mg PO TID #21 tablet 07/03/23 predniSONE [Deltasone] 20 mg PO DAILY #30 tab 07/03/23 06/30/23 - Allergies Allergies/Adverse Reactions: Allergies Allergy/AdvReac Type Severity Reaction Status Date / Time Penicillins Allergy Anaphylaxis Verified 07/03/23 20:19 - Social History Does the pt smoke?: No Smoking Status: Never smoker Does the pt drink ETOH?: Yes Does the pt have substance abuse?: No - Immunizations Immunizations are current?: No Immunizations: TDAP >10years/unknown - POLST Patient has POLST: No PD ED PE NORMAL - Vitals Vital signs reviewed: Yes (Patient tachycardic, hypertensive) - General General: Alert and oriented X 3, Other (Patient diaphoretic, tremulous) - HEENT HEENT: Atraumatic, PERRL - Neck Neck: Supple, no meningeal sign, No bony TTP, No adenopathy, Thyroid normal, No JVD, No bruit, C-Spine cleared by NEXUS criteria - Cardiac Cardiac: RRR, No murmur, No gallop, No rub, Strong equal pulses - Respiratory Respiratory: No respiratory distress, Clear bilaterally - Abdomen Abdomen: Normal bowel sounds, Soft, Non tender, Other (Ostomy in place, light brown stool in ostomy bag) - Female Female : Deferred - Rectal Rectal: Deferred - Back Back: No CVA TTP - Derm Derm: Normal color - Extremities Extremities: No deformity - Neuro Neuro: Alert and oriented X 3, various exceptionalities teacher 2-12 intact, No motor deficit, No sensory deficit, Other (Tremulousness, tongue fasciculations.) Results - Vitals Vitals: Vital Signs - 24 hr 07/03/23 07/03/23 07/03/23 20:09 20:53 22:25 Temperature 36.6 C Heart Rate 125 H 79 93 Respiratory 15 16 19 Rate Blood Pressure 158/125 H 168/143 H O2 Saturation 99 98 98 07/03/23 07/03/23 07/04/23 22:46 23:38 00:50 Temperature Heart Rate 93 102 H 103 H Respiratory 16 18 20 Rate Blood Pressure 143/86 H 133/89 H 163/82 H O2 Saturation 97 95 96 07/04/23 07/04/23 01:42 02:00 Temperature Heart Rate 94 71 Respiratory 20 18 Rate Blood Pressure 180/102 H 135/90 H O2 Saturation 99 94 Oxygen O2 Source Room air - EKG (time done) 2023 EKG releavant findings:: EKG personally interpreted by author of this note. Relevant findings are: Sinus rhythm with rate 89 bpm. Normal axis. Normal MI, QRS intervals. Border line QTc at [address]-T wave abnormalities. 2235 EKG releavant findings:: EKG personally interpreted by author of this note. Relevant findings are: Sinus rhythm with rate 89 bpm. Normal axis. Normal MI, QRS intervals. QTc borderline at [address] segment elevations. Nonspecific ST-T wave abnormalities. - Labs Labs: Laboratory Tests 07/03/23 07/03/23 07/03/23 21:05 21:05 22:02 WBC 7.7 RBC 4.27 Hgb 12.9 Hct 39.6 MCV 92.7 MCH 30.2 MCHC 32.6 RDW 13.5 Plt Count 316 MPV 8.9 Neut # (Auto) 6.6 Lymph # (Auto) 0.8 L [place] # (Auto) 0.4 Eos # (Auto) 0.0 Baso # (Auto) 0.0 Absolute Nucleated RBC 0.00 Nucleated RBC % 0.0 PT INR VBG pH VBG pCO2 VBG pO2 VBG HCO3 VBG Total CO2 VBG O2 Saturation VBG Base Excess Sodium 138 Potassium 3.1 L Chloride 101 Carbon Dioxide 24 Anion Gap 13.0 BUN 8 Creatinine 0.7 Estimated GFR (MDRD) 85 L Glucose 138 H POC Whole Bld Glucose 139 H Lactic Acid Calcium 9.4 Magnesium 1.5 L Total Bilirubin 0.3 AST 30 ALT 31 Alkaline Phosphatase 79 Total Protein 7.5 Albumin 4.2 Globulin 3.3 Albumin/Globulin Ratio 1.3 Lipase 23 Salicylates Urine Opiates Screen Ur Oxycodone Screen Urine Methadone Screen Ur Propoxyphene Screen Acetaminophen Ur Barbiturates Screen Ur Tricyclics Screen Ur Phencyclidine Scrn Ur Amphetamine Screen U Methamphetamines Scrn U Benzodiazepines Scrn Urine Cocaine Screen U Cannabinoids Screen Ethyl Alcohol 07/03/23 07/03/23 07/03/23 22:22 22:31 22:31 WBC 6.3 RBC 3.94 L Hgb 11.9 L Hct 36.4 L MCV 92.4 MCH 30.2 MCHC 32.7 RDW 13.5 Plt Count 286 MPV 8.8 Neut # (Auto) 5.1 Lymph # (Auto) 0.8 L [place] # (Auto) 0.4 Eos # (Auto) 0.0 Baso # (Auto) 0.0 Absolute Nucleated RBC 0.00 Nucleated RBC % 0.0 PT 11.7 INR 1.1 VBG pH VBG pCO2 VBG pO2 VBG HCO3 VBG Total CO2 VBG O2 Saturation VBG Base Excess Sodium Potassium Chloride Carbon Dioxide Anion Gap BUN Creatinine Estimated GFR (MDRD) Glucose POC Whole Bld Glucose Lactic Acid Calcium Magnesium Total Bilirubin AST ALT Alkaline Phosphatase Total Protein Albumin Globulin Albumin/Globulin Ratio Lipase Salicylates Urine Opiates Screen POSITIVE H Ur Oxycodone Screen NEGATIVE Urine Methadone Screen NEGATIVE Ur Propoxyphene Screen NEGATIVE Acetaminophen Ur Barbiturates Screen NEGATIVE Ur Tricyclics Screen NEGATIVE Ur Phencyclidine Scrn NEGATIVE Ur Amphetamine Screen NEGATIVE U Methamphetamines Scrn NEGATIVE U Benzodiazepines Scrn NEGATIVE Urine Cocaine Screen NEGATIVE U Cannabinoids Screen NEGATIVE Ethyl Alcohol 07/03/23 07/03/23 07/03/23 22:31 22:31 22:31 WBC RBC Hgb Hct MCV MCH MCHC RDW Plt Count MPV Neut # (Auto) Lymph # (Auto) [place] # (Auto) Eos # (Auto) Baso # (Auto) Absolute Nucleated RBC Nucleated RBC % PT INR VBG pH 7.418 H VBG pCO2 32.7 L VBG pO2 107.0 H VBG HCO3 20.6 L VBG Total CO2 21.6 L VBG O2 Saturation 97.7 H VBG Base Excess -3.0 L Sodium 140 Potassium 2.8 L Chloride 105 Carbon Dioxide 21 Anion Gap 14.0 H BUN 7 Creatinine 0.8 Estimated GFR (MDRD) 72 L Glucose 160 H POC Whole Bld Glucose Lactic Acid 5.9 H* Calcium 9.2 Magnesium 1.7 Total Bilirubin 0.3 AST 35 ALT 30 Alkaline Phosphatase 75 Total Protein 7.0 Albumin 3.8 Globulin 3.2 Albumin/Globulin Ratio 1.2 Lipase 22 Salicylates < 1.5 Urine Opiates Screen Ur Oxycodone Screen Urine Methadone Screen Ur Propoxyphene Screen Acetaminophen 1.1 Ur Barbiturates Screen Ur Tricyclics Screen Ur Phencyclidine Scrn Ur Amphetamine Screen U Methamphetamines Scrn U Benzodiazepines Scrn Urine Cocaine Screen U Cannabinoids Screen Ethyl Alcohol < 10.0 PD Medical Decision Making - ED course Complexity details: reviewed old records, reviewed results, re-evaluated patient, considered differential, d/w patient, d/w family ED course: Patient 63-year-old female presenting to the emergency department with tremulousness, tachycardia, concern for medication reaction. Recently hospitalized for Crohn's colitis flare. Was discharged from the emergency department on Flagyl, Bactrim, Vicodin, loperamide. Additionally has history of daily drinking. No previous history of alcohol withdrawal. During her previous hospitalization she was on CIWA protocol for insomnia and agitation. Arrives to the emergency department today reporting that her symptoms began shortly after taking her medications however she denied any shortness of breath, wheeze, rash or lightheadedness that would typically be associated with an Allergic reaction. She had labs that were protocoled which were generally reassuring However during my interview with her she had notable tremulousness in her upper extremities, tongue fasciculations and had a clear tonic-clonic seizure event with tongue bite resulting in superficial laceration to the left side of her tongue and loss of bladder control. She was given 2 mg IM Ativan with slow but steady return back to baseline mentation. After this event I repeated lab work which demonstrated worsening slight hyponatremia and she was given potassium repletion in the emergency department. A CT of the head was obtained which was negative for bleed or mass effect. Further history from the patient as well as review of her records did demonstrate the findings concerning for developing alcohol withdrawal and she did have a CIWA protocol which was 10 or greater here in the emergency department. As needed orders for Ativan were given and she was given thiamine and folate repletion. Her care was discussed with the telemetry hospitalist service who graciously agreed to hospitalize for further evaluation and treatment. Addendum: The patient demonstrated some persistent and worsening agitation despite IV lorazepam in the emergency department. Was given 1 single 65 mg IM dose phenobarbital with significant improvement in symptoms. Departure - Departure Disposition: [address] [facility] DC/Xfer Clinical Impression: Alcohol withdrawal seizure Qualifiers: Complication of substance-induced condition: uncomplicated Qualified Code(s): F10.930 - Alcohol use, unspecified with withdrawal, uncomplicated
[2023-07-04] MEDS: LORazepam 2 MG/ML VIAL IVP PRN ×8 (01:14→22:59)
[2023-07-04] MEDS: POTASSIUM CHLOR 10 MEQ/100 ML 10 MEQ/100 ML BAG IV SCH ×6 (01:15→11:04)
[2023-07-04] MEDS ORDERED: PHENobarbital 65 MG/ML VIAL IM STA (01:48)
[2023-07-04] MEDS ORDERED: LOPERAMIDE 2 MG CAPSULE PO PRN (01:55)
--- NOTE | 2023-07-04 01:58 | HISTORY & PHYSICAL EXAMINATION ---
Chief Complaint - Chief Complaint Chief Complaint: Tremors History of Present Illness - Admitted From Admitted From:: ER - History Obtained From Records Reviewed: Yes History obtained from: Staff, chart Exam Limitations: Virtual exam, pt condition - History of Present Illness HPI Comment/Other: H&P was conducted via video remotely, using Access Cart. Patient is in [place]. Physician is in [place]. RN is at bedside. Unable to obtain history from pt d/t sedation. History obtained from staff, chart. 63 yo F with h/o Crohn's Dz s/p partial colectomy and Ileostomy placement, HTN and recent hospitalization for Crohn's Colitis and UTI presented to the ER for c/o 1 day h/o tremors. Pt was hospitalized at [facility] from 06/30-07/03/23 for Crohn's Colitis and UTI and discharged on Prednisone, Flagyl, Bactrim. During her hospitalization, she was also on CIWA protocol and receiving Ativan PRN d/t her alcohol history. Pt drinks 2 beers + 1 glass of wine/day prior to this hospitalization. No alcohol use s/p discharge. After pt was discharged home yesterday, she began to feel agitated and had tremors. No CP/SOB/cough/F/C. She thought she might be having a reaction to her medications. No rash. In the ER, BP 158/125, HR 125, K 2.8, LA 5.9, Glc 160, Hgb 1..9, UDS: opiate+ Pt had a witnessed tonic-clonic seizure in the ER. She was given Ativan 2 mg IM and seizure stopped. Pt was also given Phenobarbital, KCl 40 mEq IV in the ER. 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 : reports: None HEENT: reports: None Psych: reports: None Musculoskeletal: reports: None Derm: reports: None MRSA Hx?: No - Past Surgical History General: reports: Bowel surgery /TECHNICIAN HELPER INSTRUMENT: reports: section Derm: reports: Other - POLST Patient has POLST: No Meds/Allgy - Home Medications Home Medications: Ambulatory Orders Medication Instructions Recorded Confirmed Infliximab-Dyyb [Inflectra] 100 mg IV ONCE 06/29/23 06/29/23 Acetaminophen [Tylenol] 650 mg PO Q4HR PRN tab 07/03/23 Ergocalciferol (Vitamin D2) 1,250 mcg PO DAILY #30 cap 07/03/23 [Drisdol] HYDROcod/ACETAM 5/325 [[place] 5/325] 1 tab PO Q8H PRN #8 tablet 07/03/23 Loperamide [Imodium] 2 mg PO TID PRN #15 cap 07/03/23 Sulfamethox/Trimeth 800/160 1 tablet PO BID 7 Days #14 tablet 07/03/23 [Bactrim Ds] metroNIDAZOLE [Flagyl] 250 mg PO TID #21 tablet 07/03/23 predniSONE [Deltasone] 20 mg PO DAILY #30 tab 07/03/23 06/30/23 - Allergies Allergies/Adverse Reactions: Allergies Allergy/AdvReac Type Severity Reaction Status Date / Time Penicillins Allergy Anaphylaxis Verified 07/03/23 20:19 Review of Systems - All Other Systems All Other Systems: reports: Other (Unable to obtain d/t patient's clinical condition) Exam - Vital Signs Reviewed Vital Signs: Yes Vital Signs: Vital Signs x48h Temp Pulse Resp BP Pulse Ox 07/04/23 01:42 94 20 180/102 H 99 07/04/23 00:50 103 H 20 163/82 H 96 07/03/23 23:38 102 H 18 133/89 H 95 07/03/23 22:46 93 16 143/86 H 97 07/03/23 22:25 93 19 98 07/03/23 20:53 79 16 168/143 H 98 07/03/23 20:09 36.6 C 125 H 15 158/125 H 99 - Physical Exam General Appearance: positive: No acute distress, Other (Sedated) Eyes Bilateral: positive: No scleral icterus, Other (per ER Provider: PERRL, EOMI) Respiratory: positive: Other (Access cart stethoscope not working; per ER Provi vik: CTA B/L) Cardiovascular: positive: Other (Access cart stethoscope not working; per ER Provider: RR, Tachycardia, no murmurs) Abdomen: positive: Other ( per ER Provider: non-distended, NT, Soft) Extremities: positive: Nml appearance Neurologic/Psychiatric: positive: Other (Sedated, unable to do Neuro exam) Conclusion/Plan - Problem List (1) Alcohol withdrawal seizure Conclusion/Plan: Alcohol Withdrawals with Seizure Alcohol Dependence Agitation Tremors Tachycardia Elevated BP -during recent hospitalization, pt was on CIWA protocol and receiving Ativan PRN -BP 158/125, HR 125 -Pt had a witnessed tonic-clonic seizure in the ER. She was given Ativan 2 mg IM and seizure stopped. -Pt was also given Phenobarbital 65 mg IM in the ER. -admit to ICU -CIWA protocol ordered with Ativan PRN -SW consult ordered Crohn's Dz s/p partial colectomy and Ileostomy placement Crohn's Colitis Hypokalemia Lactic Acidosis Pt was hospitalized at [facility] from 06/30-07/03/23 for Crohn's Colitis and UTI and discharged on Prednisone, Flagyl, Bactrim. During her hospitalization, -K 2.8, LA 5.9 -Pt was also given KCl 40 mEq IV in the ER. -recheck LA in AM -supplement K PRN -continue home medications: Prednisone, Flagyl, Vicodin, Loperamide, Inflectra UTI -continue home medications: Bactrim -recheck U/A HTN -no home meds listed -Hydralazine PRN Hyperglycemia -Glc 160 -check Hgba1c -possibly d/t steroids VTE Prophylaxis: Hep SQ Code Status: Full Code ~Anupama Bush MD Hospitalist Qualifiers: Complication of substance-induced condition: uncomplicated Qualified Code(s ): F10.930 - Alcohol use, unspecified with withdrawal, uncomplicated; R56.9 - Unspecified convulsions - Lab Results Lab results reviewed: Yes Fish Bones: 07/03/23 22:31 07/03/23 22:31
[2023-07-04] MEDS ORDERED: SODIUM CHLORIDE FLUSH 0.9% 10 ML SYRINGE IVP PRN (02:00)
[2023-07-04] MEDS ORDERED: INFLIXIMAB DYYB 100 MG IV SCH (02:00)
[2023-07-04] MEDS ORDERED: ONDANSETRON 4 MG/2 ML VIAL IVP PRN (02:00)
[2023-07-04] MEDS ORDERED: MAGNESIUM SULFATE 2 GRAM 2 GM/50 ML BAG IV ONE (02:00)
[2023-07-04 02:49] LABS: INR 1.1 (0.8-1.2); PT - PROTHROMBIN TIME 11.7 secs (9.9-12.6)
[2023-07-04] MEDS: DEXTROSE 5%-0.9% NACL 1,000 ML IV SCH ×2 (03:25→14:21)
[2023-07-04] MEDS ORDERED: hydrALAZINE INJ 20 MG/ML VIAL IVP PRN (04:55)
[2023-07-04 05:42] LABS: CALCIUM, IONIZED 1.15 mmol/L (1.15-1.33); VBG PH 7.445 (7.31-7.41)
[2023-07-04] MEDS ORDERED: metroNIDAZOLE 250 MG TABLET PO SCH (06:00)
[2023-07-04 06:08] LABS: BILIRUBIN,URINE NEGATIVE (NEGATIVE); GLUCOSE, URINE (UA) NEGATIVE (NEGATIVE); KETONES,URINE (UA) NEGATIVE (NEGATIVE); LEUKOCYTE ESTERASE, URINE SMALL (NEGATIVE); NITRITE,URINE NEGATIVE (NEGATIVE); OCCULT BLOOD,URINE NEGATIVE (NEGATIVE); PROTEIN,URINE NEGATIVE (NEGATIVE); UROBILINOGEN,URINE 0.2 (NORMAL) E.U./dL (NORMAL)
[2023-07-04 06:13] LABS: BACTERIA,URINE Rare /HPF (None Seen); CLARITY,URINE CLEAR (CLEAR); RBC,URINE 0-5 /HPF (0-5); SQUAMOUS EPITHELIAL CELL,UR FEW Squamous (<= Few); WBC,URINE 0-3 /HPF (0-5)
[2023-07-04 07:56] LABS: BASOPHILS % (AUTO) 0.7 %; EOSINOPHILS % (AUTO) 0.7 %; HCT - HEMATOCRIT 34.1 % (37.0-47.0); LYMPHOCYTES % (AUTO) 16.8 %; MEAN CORPUSCULAR HEMOGLOBIN 30.1 pg (27.0-31.0); MEAN CORPUSCULAR HGB CONC 32.3 g/dL (32.0-36.0); MEAN CORPUSCULAR VOLUME 93.2 fL (81.0-99.0); MEAN PLATELET VOLUME 9.1 fL (7.9-10.8); MONOCYTES # (AUTO) 0.6 10^3/uL (0.0-1.0); MONOCYTES % (AUTO) 9.5 %; NEUTROPHILS # (AUTO) 4.2 10^3/uL (1.5-6.6); NEUTROPHILS % (AUTO) 71.8 %; PLT - PLATELET COUNT 263 10^3/uL (130-450); RED BLOOD COUNT 3.66 10^6/uL (4.20-5.40); RED CELL DISTRIBUTION WIDTH 13.6 % (12.0-15.0); WHITE BLOOD COUNT 5.8 x10^3/uL (4.8-10.8)
[2023-07-04 08:06] LABS: CALCIUM 8.7 mg/dL (8.5-10.3); CREATININE 0.7 mg/dL (0.6-1.3); POTASSIUM 3.6 mmol/L (3.5-4.5)
[2023-07-04] MEDS ORDERED: cefTRIAXone 1 GM in SODIUM CHLORIDE 0.9% MINIBAG 100 ML IV STA (08:41)
--- NOTE | 2023-07-04 08:48 | PROVIDER PROGRESS NOTE ---
Subjective - Subjective Subjective: She is asleep after getting iv Ativan 3 hours ago Objective - Vital Signs/Intake & Output Vital Signs: Vital Signs Pulse Resp BP Pulse Ox 07/04/23 08:00 63 10 L 107/70 93 07/04/23 07:00 66 18 94/68 95 07/04/23 06:00 69 11 L 142/86 H 96 07/04/23 05:35 65 10 L 125/75 93 Intake & Output: Intake & Output 07/01/23 07/02/23 07/03/23 07/04/23 23:59 23:59 23:59 23:59 Intake Total 895 Output Total 250 Balance 645 - Objective General Appearance: positive: Other (Asleep) Eyes Bilateral: positive: No lid inflammation Neck: positive: Nml inspection Respiratory: positive: No respiratory distress Cardiovascular: positive: Regular rate & rhythm Abdomen: positive: Other (colostomy bag) Skin: positive: Warm, Dry Extremities: positive: No pedal edema - Lab Results Fish Bones: 07/04/23 07:47 07/04/23 07:47 Other Labs: Lab Results x24hrs 07/04/23 07/04/23 07/04/23 Range/Units 07:47 07:47 07:47 WBC (4.8-10.8) x10^3/uL RBC (4.20-5.40) 10^6/uL Hgb (12.0-16.0) g/dL Hct (37.0-47.0) % MCV (81.0-99.0) fL MCH (27.0-31.0) pg MCHC (32.0-36.0) g/dL RDW (12.0-15.0) % Plt Count (130-450) 10^3/uL MPV (7.9-10.8) fL Neut # (Auto) (1.5-6.6) 10^3/uL Lymph # (Auto) (1.5-3.5) 10^3/uL Kendall # (Auto) (0.0-1.0) 10^3/uL Eos # (Auto) (0.0-0.7) 10^3/uL Baso # (Auto) (0.0-0.1) 10^3/uL Absolute Nucleated RBC x10^3/uL Nucleated RBC % /100WBC PT (9.9-12.6) secs INR (0.8-1.2) VBG pH (7.31-7.41) VBG pCO2 (41-51) mmHg VBG pO2 (25-47) mmHg VBG HCO3 (23-28) mmol/L VBG Total CO2 (24-29) mmol/L VBG O2 Saturation (60-80) % VBG Base Excess (-2 - +2) mmol/L Ionized Calcium (1.15-1.33) mmol/L Sodium 141 (135-145) mmol/L Potassium 3.6 (3.5-5.0) mmol/L Chloride 109 (101-111) mmol/L Carbon Dioxide 28 (21-32) mmol/L Anion Gap 4.0 L (6-13) BUN 6 (6-20) mg/dL Creatinine 0.7 (0.4-1.0) mg/dL Estimated GFR (MDRD) 85 L (>89) Glucose 99 (70-100) mg/dL POC Whole Bld Glucose (70 - 100) mg/dL Lactic Acid 1.2 (0.5-2.2) mmol/L Calcium 8.7 (8.5-10.3) mg/dL Phosphorus 3.1 (2.5-5.0) mg/dL Magnesium 2.0 (1.7-2.8) mg/dL Total Bilirubin (0.2-1.0) mg/dL AST (10-42) IU/L ALT (10-60) IU/L Alkaline Phosphatase (42-121) IU/L Total Protein (6.7-8.2) g/dL Albumin (3.2-5.5) g/dL Globulin (2.1-4.2) g/dL Albumin/Globulin Ratio (1.0-2.2) Lipase (22-51) U/L Urine Color Urine Clarity (CLEAR) Urine pH (5.0-7.5) PH Ur Specific Gar[place] (1.002-1.030) Urine Protein (NEGATIVE) mg/dL Urine Glucose (UA) (NEGATIVE) mg/dL Urine Ketones (NEGATIVE) mg/dL Urine Occult Blood (NEGATIVE) Urine Nitrite (NEGATIVE) Urine Bilirubin (NEGATIVE) Urine Urobilinogen (NORMAL) E.U./dL Ur Leukocyte Esterase (NEGATIVE) Urine RBC (0-5) /HPF Urine WBC (0-5) /HPF Ur Squamous Epith Cells (<= Few) Urine Bacteria (None Seen) /HPF Urine Culture Comments Nasal Screen MRSA (PCR) (NEGATIVE) Salicylates mg/dL Urine Opiates Screen (NEGATIVE) Ur Oxycodone Screen (NEGATIVE) Urine Methadone Screen (NEGATIVE) Ur Propoxyphene Screen (NEGATIVE) Acetaminophen ug/mL Ur Barbiturates Screen (NEGATIVE) Ur Tricyclics Screen (NEGATIVE) Ur Phencyclidine Scrn (NEGATIVE) Ur Amphetamine Screen (NEGATIVE) U Methamphetamines Scrn (NEGATIVE) U Benzodiazepines Scrn (NEGATIVE) Urine Cocaine Screen (NEGATIVE) U Cannabinoids Screen (NEGATIVE) Ethyl Alcohol mg/dL 07/04/23 07/04/23 07/04/23 Range/Units 07:47 05:55 04:26 WBC 5.8 (4.8-10.8) x10^3/uL RBC 3.66 L (4.20-5.40) 10^6/uL Hgb 11.0 L (12.0-16.0) g/dL Hct 34.1 L (37.0-47.0) % MCV 93.2 (81.0-99.0) fL MCH 30.1 (27.0-31.0) pg MCHC 32.3 (32.0-36.0) g/dL RDW 13.6 (12.0-15.0) % Plt Count 263 (130-450) 10^3/uL MPV 9.1 (7.9-10.8) fL Neut # (Auto) 4.2 (1.5-6.6) 10^3/uL Lymph # (Auto) 1.0 L (1.5-3.5) 10^3/uL Kendall # (Auto) 0.6 (0.0-1.0) 10^3/uL Eos # (Auto) 0.0 (0.0-0.7) 10^3/uL Baso # (Auto) 0.0 (0.0-0.1) 10^3/uL Absolute Nucleated RBC 0.00 x10^3/uL Nucleated RBC % 0.0 /100WBC PT (9.9-12.6) secs INR (0.8-1.2) VBG pH 7.445 H (7.31-7.41) VBG pCO2 (41-51) mmHg VBG pO2 (25-47) mmHg VBG HCO3 (23-28) mmol/L VBG Total CO2 (24-29) mmol/L VBG O2 Saturation (60-80) % VBG Base Excess (-2 - +2) mmol/L Ionized Calcium 1.15 (1.15-1.33) mmol/L Sodium (135-145) mmol/L Potassium (3.5-5.0) mmol/L Chloride (101-111) mmol/L Carbon Dioxide (21-32) mmol/L Anion Gap (6-13) BUN (6-20) mg/dL Creatinine (0.4-1.0) mg/dL Estimated GFR (MDRD) (>89) Glucose (70-100) mg/dL POC Whole Bld Glucose (70 - 100) mg/dL Lactic Acid (0.5-2.2) mmol/L Calcium (8.5-10.3) mg/dL Phosphorus (2.5-5.0) mg/dL Magnesium (1.7-2.8) mg/dL Total Bilirubin (0.2-1.0) mg/dL AST (10-42) IU/L ALT (10-60) IU/L Alkaline Phosphatase (42-121) IU/L Total Protein (6.7-8.2) g/dL Albumin (3.2-5.5) g/dL Globulin (2.1-4.2) g/dL Albumin/Globulin Ratio (1.0-2.2) Lipase (22-51) U/L Urine Color YELLOW Urine Clarity CLEAR (CLEAR) Urine pH 7.0 (5.0-7.5) PH Ur Specific Garland <=1.005 (1.002-1.030) Urine Protein NEGATIVE (NEGATIVE) mg/dL Urine Glucose (UA) NEGATIVE (NEGATIVE) mg/dL Urine Ketones NEGATIVE (NEGATIVE) mg/dL Urine Occult Blood NEGATIVE (NEGATIVE) Urine Nitrite NEGATIVE (NEGATIVE) Urine Bilirubin NEGATIVE (NEGATIVE) Urine Urobilinogen 0.2 (NORMAL) (NORMAL) E.U./dL Ur Leukocyte Esterase SMALL H (NEGATIVE) Urine RBC 0-5 (0-5) /HPF Urine WBC 0-3 (0-5) /HPF Ur Squamous Epith Cells FEW Squamous (<= Few) Urine Bacteria Rare (None Seen) /HPF Urine Culture Comments INDICATED Nasal Screen MRSA (PCR) (NEGATIVE) Salicylates mg/dL Urine Opiates Screen (NEGATIVE) Ur Oxycodone Screen (NEGATIVE) Urine Methadone Screen (NEGATIVE) Ur Propoxyphene Screen (NEGATIVE) Acetaminophen ug/mL Ur Barbiturates Screen (NEGATIVE) Ur Tricyclics Screen (NEGATIVE) Ur Phencyclidine Scrn (NEGATIVE) Ur Amphetamine Screen (NEGATIVE) U Methamphetamines Scrn (NEGATIVE) U Benzodiazepines Scrn (NEGATIVE) Urine Cocaine Screen (NEGATIVE) U Cannabinoids Screen (NEGATIVE) Ethyl Alcohol mg/dL 07/04/23 07/04/23 07/03/23 Range/Units 03:23 02:21 22:31 WBC (4.8-10.8) x10^3/uL RBC (4.20-5.40) 10^6/uL Hgb (12.0-16.0) g/dL Hct (37.0-47.0) % MCV (81.0-99.0) fL MCH (27.0-31.0) pg MCHC (32.0-36.0) g/dL RDW (12.0-15.0) % Plt Count (130-450) 10^3/uL MPV (7.9-10.8) fL Neut # (Auto) (1.5-6.6) 10^3/uL Lymph # (Auto) (1.5-3.5) 10^3/uL Kendall # (Auto) (0.0-1.0) 10^3/uL Eos # (Auto) (0.0-0.7) 10^3/uL Baso # (Auto) (0.0-0.1) 10^3/uL Absolute Nucleated RBC x10^3/uL Nucleated RBC % /100WBC PT 11.7 (9.9-12.6) secs INR 1.1 (0.8-1.2) VBG pH 7.418 H (7.31-7.41) VBG pCO2 32.7 L (41-51) mmHg VBG pO2 107.0 H (25-47) mmHg VBG HCO3 20.6 L (23-28) mmol/L VBG Total CO2 21.6 L (24-29) mmol/L VBG O2 Saturation 97.7 H (60-80) % VBG Base Excess -3.0 L (-2 - +2) mmol/L Ionized Calcium (1.15-1.33) mmol/L Sodium (135-145) mmol/L Potassium (3.5-5.0) mmol/L Chloride (101-111) mmol/L Carbon Dioxide (21-32) mmol/L Anion Gap (6-13) BUN (6-20) mg/dL Creatinine (0.4-1.0) mg/dL Estimated GFR (MDRD) (>89) Glucose (70-100) mg/dL POC Whole Bld Glucose (70 - 100) mg/dL Lactic Acid (0.5-2.2) mmol/L Calcium (8.5-10.3) mg/dL Phosphorus (2.5-5.0) mg/dL Magnesium (1.7-2.8) mg/dL Total Bilirubin (0.2-1.0) mg/dL AST (10-42) IU/L ALT (10-60) IU/L Alkaline Phosphatase (42-121) IU/L Total Protein (6.7-8.2) g/dL Albumin (3.2-5.5) g/dL Globulin (2.1-4.2) g/dL Albumin/Globulin Ratio (1.0-2.2) Lipase (22-51) U/L Urine Color Urine Clarity (CLEAR) Urine pH (5.0-7.5) PH Ur Specific Gar[place] (1.002-1.030) Urine Protein (NEGATIVE) mg/dL Urine Glucose (UA) (NEGATIVE) mg/dL Urine Ketones (NEGATIVE) mg/dL Urine Occult Blood (NEGATIVE) Urine Nitrite (NEGATIVE) Urine Bilirubin (NEGATIVE) Urine Urobilinogen (NORMAL) E.U./dL Ur Leukocyte Esterase (NEGATIVE) Urine RBC (0-5) /HPF Urine WBC (0-5) /HPF Ur Squamous Epith Cells (<= Few) Urine Bacteria (None Seen) /HPF Urine Culture Comments Nasal Screen MRSA (PCR) NEGATIVE (NEGATIVE) Salicylates mg/dL Urine Opiates Screen (NEGATIVE) Ur Oxycodone Screen (NEGATIVE) Urine Methadone Screen (NEGATIVE) Ur Propoxyphene Screen (NEGATIVE) Acetaminophen ug/mL Ur Barbiturates Screen (NEGATIVE) Ur Tricyclics Screen (NEGATIVE) Ur Phencyclidine Scrn (NEGATIVE) Ur Amphetamine Screen (NEGATIVE) U Methamphetamines Scrn (NEGATIVE) U Benzodiazepines Scrn (NEGATIVE) Urine Cocaine Screen (NEGATIVE) U Cannabinoids Screen (NEGATIVE) Ethyl Alcohol mg/dL 07/03/23 07/03/23 07/03/23 Range/Units 22:31 22:31 22:31 WBC (4.8-10.8) x10^3/uL RBC (4.20-5.40) 10^6/uL Hgb (12.0-16.0) g/dL Hct (37.0-47.0) % MCV (81.0-99.0) fL MCH (27.0-31.0) pg MCHC (32.0-36.0) g/dL RDW (12.0-15.0) % Plt Count (130-450) 10^3/uL MPV (7.9-10.8) fL Neut # (Auto) (1.5-6.6) 10^3/uL Lymph # (Auto) (1.5-3.5) 10^3/uL Kendall # (Auto) (0.0-1.0) 10^3/uL Eos # (Auto) (0.0-0.7) 10^3/uL Baso # (Auto) (0.0-0.1) 10^3/uL Absolute Nucleated RBC x10^3/uL Nucleated RBC % /100WBC PT 11.7 (9.9-12.6) secs INR 1.1 (0.8-1.2) VBG pH (7.31-7.41) VBG pCO2 (41-51) mmHg VBG pO2 (25-47) mmHg VBG HCO3 (23-28) mmol/L VBG Total CO2 (24-29) mmol/L VBG O2 Saturation (60-80) % VBG Base Excess (-2 - +2) mmol/L Ionized Calcium (1.15-1.33) mmol/L Sodium 140 (135-145) mmol/L Potassium 2.8 L (3.5-5.0) mmol/L Chloride 105 (101-111) mmol/L Carbon Dioxide 21 (21-32) mmol/L Anion Gap 14.0 H (6-13) BUN 7 (6-20) mg/dL Creatinine 0.8 (0.4-1.0) mg/dL Estimated GFR (MDRD) 72 L (>89) Glucose 160 H (70-100) mg/dL POC Whole Bld Glucose (70 - 100) mg/dL Lactic Acid 5.9 H* (0.5-2.2) mmol/L Calcium 9.2 (8.5-10.3) mg/dL Phosphorus (2.5-5.0) mg/dL Magnesium 1.7 (1.7-2.8) mg/dL Total Bilirubin 0.3 (0.2-1.0) mg/dL AST 35 (10-42) IU/L ALT 30 (10-60) IU/L Alkaline Phosphatase 75 (42-121) IU/L Total Protein 7.0 (6.7-8.2) g/dL Albumin 3.8 (3.2-5.5) g/dL Globulin 3.2 (2.1-4.2) g/dL Albumin/Globulin Ratio 1.2 (1.0-2.2) Lipase 22 (22-51) U/L Urine Color Urine Clarity (CLEAR) Urine pH (5.0-7.5) PH Ur Specific Gar[place] (1.002-1.030) Urine Protein (NEGATIVE) mg/dL Urine Glucose (UA) (NEGATIVE) mg/dL Urine Ketones (NEGATIVE) mg/dL Urine Occult Blood (NEGATIVE) Urine Nitrite (NEGATIVE) Urine Bilirubin (NEGATIVE) Urine Urobilinogen (NORMAL) E.U./dL Ur Leukocyte Esterase (NEGATIVE) Urine RBC (0-5) /HPF Urine WBC (0-5) /HPF Ur Squamous Epith Cells (<= Few) Urine Bacteria (None Seen) /HPF Urine Culture Comments Nasal Screen MRSA (PCR) (NEGATIVE) Salicylates < 1.5 mg/dL Urine Opiates Screen (NEGATIVE) Ur Oxycodone Screen (NEGATIVE) Urine Methadone Screen (NEGATIVE) Ur Propoxyphene Screen (NEGATIVE) Acetaminophen 1.1 ug/mL Ur Barbiturates Screen (NEGATIVE) Ur Tricyclics Screen (NEGATIVE) Ur Phencyclidine Scrn (NEGATIVE) Ur Amphetamine Screen (NEGATIVE) U Methamphetamines Scrn (NEGATIVE) U Benzodiazepines Scrn (NEGATIVE) Urine Cocaine Screen (NEGATIVE) U Cannabinoids Screen (NEGATIVE) Ethyl Alcohol < 10.0 mg/dL 07/03/23 07/03/23 07/03/23 Range/Units 22:31 22:22 22:02 WBC 6.3 (4.8-10.8) x10^3/uL RBC 3.94 L (4.20-5.40) 10^6/uL Hgb 11.9 L (12.0-16.0) g/dL Hct 36.4 L (37.0-47.0) % MCV 92.4 (81.0-99.0) fL MCH 30.2 (27.0-31.0) pg MCHC 32.7 (32.0-36.0) g/dL RDW 13.5 (12.0-15.0) % Plt Count 286 (130-450) 10^3/uL MPV 8.8 (7.9-10.8) fL Neut # (Auto) 5.1 (1.5-6.6) 10^3/uL Lymph # (Auto) 0.8 L (1.5-3.5) 10^3/uL Kendall # (Auto) 0.4 (0.0-1.0) 10^3/uL Eos # (Auto) 0.0 (0.0-0.7) 10^3/uL Baso # (Auto) 0.0 (0.0-0.1) 10^3/uL Absolute Nucleated RBC 0.00 x10^3/uL Nucleated RBC % 0.0 /100WBC PT (9.9-12.6) secs INR (0.8-1.2) VBG pH (7.31-7.41) VBG pCO2 (41-51) mmHg VBG pO2 (25-47) mmHg VBG HCO3 (23-28) mmol/L VBG Total CO2 (24-29) mmol/L VBG O2 Saturation (60-80) % VBG Base Excess (-2 - +2) mmol/L Ionized Calcium (1.15-1.33) mmol/L Sodium (135-145) mmol/L Potassium (3.5-5.0) mmol/L Chloride (101-111) mmol/L Carbon Dioxide (21-32) mmol/L Anion Gap (6-13) BUN (6-20) mg/dL Creatinine (0.4-1.0) mg/dL Estimated GFR (MDRD) (>89) Glucose (70-100) mg/dL POC Whole Bld Glucose 139 H (70 - 100) mg/dL Lactic Acid (0.5-2.2) mmol/L Calcium (8.5-10.3) mg/dL Phosphorus (2.5-5.0) mg/dL Magnesium (1.7-2.8) mg/dL Total Bilirubin (0.2-1.0) mg/dL AST (10-42) IU/L ALT (10-60) IU/L Alkaline Phosphatase (42-121) IU/L Total Protein (6.7-8.2) g/dL Albumin (3.2-5.5) g/dL Globulin (2.1-4.2) g/dL Albumin/Globulin Ratio (1.0-2.2) Lipase (22-51) U/L Urine Color Urine Clarity (CLEAR) Urine pH (5.0-7.5) PH Ur Specific [place] (1.002-1.030) Urine Protein (NEGATIVE) mg/dL Urine Glucose (UA) (NEGATIVE) mg/dL Urine Ketones (NEGATIVE) mg/dL Urine Occult Blood (NEGATIVE) Urine Nitrite (NEGATIVE) Urine Bilirubin (NEGATIVE) Urine Urobilinogen (NORMAL) E.U./dL Ur Leukocyte Esterase (NEGATIVE) Urine RBC (0-5) /HPF Urine WBC (0-5) /HPF Ur Squamous Epith Cells (<= Few) Urine Bacteria (None Seen) /HPF Urine Culture Comments Nasal Screen MRSA (PCR) (NEGATIVE) Salicylates mg/dL Urine Opiates Screen POSITIVE H (NEGATIVE) Ur Oxycodone Screen NEGATIVE (NEGATIVE) Urine Methadone Screen NEGATIVE (NEGATIVE) Ur Propoxyphene Screen NEGATIVE (NEGATIVE) Acetaminophen ug/mL Ur Barbiturates Screen NEGATIVE (NEGATIVE) Ur Tricyclics Screen NEGATIVE (NEGATIVE) Ur Phencyclidine Scrn NEGATIVE (NEGATIVE) Ur Amphetamine Screen NEGATIVE (NEGATIVE) U Methamphetamines Scrn NEGATIVE (NEGATIVE) U Benzodiazepines Scrn NEGATIVE (NEGATIVE) Urine Cocaine Screen NEGATIVE (NEGATIVE) U Cannabinoids Screen NEGATIVE (NEGATIVE) Ethyl Alcohol mg/dL 07/03/23 07/03/23 Range/Units 21:05 21:05 WBC 7.7 (4.8-10.8) x10^3/uL RBC 4.27 (4.20-5.40) 10^6/uL Hgb 12.9 (12.0-16.0) g/dL Hct 39.6 (37.0-47.0) % MCV 92.7 (81.0-99.0) fL MCH 30.2 (27.0-31.0) pg MCHC 32.6 (32.0-36.0) g/dL RDW 13.5 (12.0-15.0) % Plt Count 316 (130-450) 10^3/uL MPV 8.9 (7.9-10.8) fL Neut # (Auto) 6.6 (1.5-6.6) 10^3/uL Lymph # (Auto) 0.8 L (1.5-3.5) 10^3/uL Kendall # (Auto) 0.4 (0.0-1.0) 10^3/uL Eos # (Auto) 0.0 (0.0-0.7) 10^3/uL Baso # (Auto) 0.0 (0.0-0.1) 10^3/uL Absolute Nucleated RBC 0.00 x10^3/uL Nucleated RBC % 0.0 /100WBC PT (9.9-12.6) secs INR (0.8-1.2) VBG pH (7.31-7.41) VBG pCO2 (41-51) mmHg VBG pO2 (25-47) mmHg VBG HCO3 (23-28) mmol/L VBG Total CO2 (24-29) mmol/L VBG O2 Saturation (60-80) % VBG Base Excess (-2 - +2) mmol/L Ionized Calcium (1.15-1.33) mmol/L Sodium 138 (135-145) mmol/L Potassium 3.1 L (3.5-5.0) mmol/L Chloride 101 (101-111) mmol/L Carbon Dioxide 24 (21-32) mmol/L Anion Gap 13.0 (6-13) BUN 8 (6-20) mg/dL Creatinine 0.7 (0.4-1.0) mg/dL Estimated GFR (MDRD) 85 L (>89) Glucose 138 H (70-100) mg/dL POC Whole Bld Glucose (70 - 100) mg/dL Lactic Acid (0.5-2.2) mmol/L Calcium 9.4 (8.5-10.3) mg/dL Phosphorus (2.5-5.0) mg/dL Magnesium 1.5 L (1.7-2.8) mg/dL Total Bilirubin 0.3 (0.2-1.0) mg/dL AST 30 (10-42) IU/L ALT 31 (10-60) IU/L Alkaline Phosphatase 79 (42-121) IU/L Total Protein 7.5 (6.7-8.2) g/dL Albumin 4.2 (3.2-5.5) g/dL Globulin 3.3 (2.1-4.2) g/dL Albumin/Globulin Ratio 1.3 (1.0-2.2) Lipase 23 (22-51) U/L Urine Color Urine Clarity (CLEAR) Urine pH (5.0-7.5) PH Ur Specific [place] (1.002-1.030) Urine Protein (NEGATIVE) mg/dL Urine Glucose (UA) (NEGATIVE) mg/dL Urine Ketones (NEGATIVE) mg/dL Urine Occult Blood (NEGATIVE) Urine Nitrite (NEGATIVE) Urine Bilirubin (NEGATIVE) Urine Urobilinogen (NORMAL) E.U./dL Ur Leukocyte Esterase (NEGATIVE) Urine RBC (0-5) /HPF Urine WBC (0-5) /HPF Ur Squamous Epith Cells (<= Few) Urine Bacteria (None Seen) /HPF Urine Culture Comments Nasal Screen MRSA (PCR) (NEGATIVE) Salicylates mg/dL Urine Opiates Screen (NEGATIVE) Ur Oxycodone Screen (NEGATIVE) Urine Methadone Screen (NEGATIVE) Ur Propoxyphene Screen (NEGATIVE) Acetaminophen ug/mL Ur Barbiturates Screen (NEGATIVE) Ur Tricyclics Screen (NEGATIVE) Ur Phencyclidine Scrn (NEGATIVE) Ur Amphetamine Screen (NEGATIVE) U Methamphetamines Scrn (NEGATIVE) U Benzodiazepines Scrn (NEGATIVE) Urine Cocaine Screen (NEGATIVE) U Cannabinoids Screen (NEGATIVE) Ethyl Alcohol mg/dL Assessment/Plan - Problem List (1) Alcohol withdrawal seizure Impression: The patient was just discharged home yesterday afternoon then presented back yesterday at night with tremors. She had a witnessed seizure in the ER. She has been admitted to the ICU on a CIWA protocol. Plan: The patient is excessively sedated and cannot take p.o. meds today. I will change her po Prednisone to IV Solu-Medrol 20 mg iv, Flagyl p.o. 3 times daily to Flagyl IV every 8 hours, no TMP sulfa was ordered therefore today I will give iv Ceftriaxone for the UTI, she cannot take thiamine orally or folate orally, I will have her get a banana bag today w/ iv hydration. Continue CIWA protocol and prn Ativan dosing When she is alert and awake, I will have social work see her in consult regarding alcohol abuse. I suspect she was minimizing her report of alcohol intake during the last recent admission and during this ER presentation. Qualifiers: Complication of substance-induced condition: uncomplicated Qualified Code(s): F10.930 - Alcohol use, unspecified with withdrawal, uncomplicated; R56.9 - Unspecified convulsions (2) Crohn's colitis Impression: The patient was just discharged yesterday afternoon and was still to take several more days of oral antibiotics and oral prednisone for the Crohn's colitis flare. Plan: I will change everything to IV dosing today Her diet was supposed to be soft and easily digestible. Today she is too somnolent to take in solids, thus I will change her to a pured diet (3) Group B streptococcal UTI Impression: The patient was just discharged yesterday in order to take oral TMP sulfa for several days for the UTI Plan: I will change her po med to IV ceftriaxone today, restart p.o. antibiotic tomorrow
[2023-07-04] MEDS ORDERED: predniSONE 20 MG TABLET PO SCH (09:00)
[2023-07-04] MEDS ORDERED: ERGOCALCIFEROL 50,000 UNIT CAPSULE PO SCH (09:00)
[2023-07-04] MEDS ORDERED: FOLIC ACID 1 MG TABLET PO SCH (09:00)
[2023-07-04] MEDS ORDERED: THIAMINE 100 MG TABLET PO SCH (09:00)
[2023-07-04] MEDS ORDERED: MULTIVITAMIN 10 ML, THIAMINE INJ 100 MG, FOLIC ACID INJ 1 MG in SODIUM CHLORIDE 0.9% 1,... IV SCH (09:00)
[2023-07-04] MEDS: HEPARIN 5,000 UNIT/ML VIAL SUBQ SCH ×2 (09:14→20:42)
[2023-07-04] MEDS: FAMOTIDINE 20 MG/2 ML VIAL IVP SCH ×2 (09:14→20:35)
[2023-07-04] MEDS: SODIUM CHLORIDE FLUSH 0.9% 10 ML SYRINGE IVP SCH ×2 (09:17→16:19)
[2023-07-04 09:29] LABS: ALBUMIN 3.2 g/dL (3.2-5.5); ALBUMIN/GLOBULIN RATIO 1.5 (1.0-2.2); BILIRUBIN,TOTAL 0.3 mg/dL (0.2-1.0); CALCIUM 8.9 mg/dL (8.5-10.3); CREATININE 0.7 mg/dL (0.6-1.3); POTASSIUM 3.7 mmol/L (3.5-4.5); TOTAL PROTEIN 5.3 g/dL (6.4-8.9)
[2023-07-04] MEDS: metroNIDAZOLE 500 MG/100 ML 500 MG/100 ML BAG IV SCH ×2 (09:56→16:06)
[2023-07-04] MEDS: SULFAMETH/TRIMETH DS 800/160 MG TABLET PO SCH ×2 (10:00→21:54)
[2023-07-04] MEDS: PRENATAL VITAMIN TABLET PO SCH (10:00)
[2023-07-04 11:22] LABS: ESTIMATED AVERAGE GLUCOSE 105 mg/dL (70-100); HEMOGLOBIN A1c% 5.3 % (4.27-6.07)
[2023-07-04] MEDS ORDERED: methylPREDNISolone SUCCINATE 40 MG/ML VIAL IVP ONE (12:00)
--- NOTE | 2023-07-04 14:24 | PHARMACY PROGRESS NOTE ---
- Best Possible Medication History Admit Date and Time: 07/04/23 0201 Processed by: Pharmacy Medication History completed: Yes Patient Interview: Pt unable to participate Secondary Source(s): Prescription bottles, Pharmacy records, Insurance records As the person ultimately responsible for medication therapy, providers are able to order a medication from an existing home medication list in [facility] via the "Reconcile Routine" prior to Confirmation of that medication by postal support employee. Such practice is discouraged except when the physician, in their clinical judgment, deems that a medical need exists for a medication without regard to previous use.
[2023-07-05] MEDS: LORazepam 2 MG/ML VIAL IVP PRN (00:38)
[2023-07-05] MEDS: DEXTROSE 5%-0.9% NACL 1,000 ML IV SCH (02:21)
[2023-07-05] MEDS: SODIUM CHLORIDE FLUSH 0.9% 10 ML SYRINGE IVP SCH ×3 (02:22→17:15)
[2023-07-05] MEDS: PRENATAL VITAMIN TABLET PO SCH (09:00)
[2023-07-05] MEDS ORDERED: FOLIC ACID 1 MG TABLET PO SCH (09:00)
[2023-07-05] MEDS: metroNIDAZOLE 250 MG TABLET PO SCH ×3 (09:02→22:15)
[2023-07-05] MEDS: predniSONE 20 MG TABLET PO SCH (09:03)
[2023-07-05] MEDS: THIAMINE 100 MG TABLET PO SCH (09:05)
[2023-07-05] MEDS: SULFAMETH/TRIMETH DS 800/160 MG TABLET PO SCH ×2 (09:05→21:32)
[2023-07-05 09:39] LABS: BASOPHILS % (AUTO) 0.6 %; CALCIUM, IONIZED 1.14 mmol/L (1.15-1.33); EOSINOPHILS # (AUTO) 0.1 10^3/uL (0.0-0.7); EOSINOPHILS % (AUTO) 1.8 %; HCT - HEMATOCRIT 34.2 % (37.0-47.0); HGB - HEMOGLOBIN 10.9 g/dL (12.0-16.0); LYMPHOCYTES # (AUTO) 0.8 10^3/uL (1.5-3.5); LYMPHOCYTES % (AUTO) 22.8 %; MEAN CORPUSCULAR HEMOGLOBIN 29.6 pg (27.0-31.0); MEAN CORPUSCULAR HGB CONC 31.9 g/dL (32.0-36.0); MEAN CORPUSCULAR VOLUME 92.9 fL (81.0-99.0); MEAN PLATELET VOLUME 8.9 fL (7.9-10.8); MONOCYTES # (AUTO) 0.3 10^3/uL (0.0-1.0); NEUTROPHILS # (AUTO) 2.3 10^3/uL (1.5-6.6); NEUTROPHILS % (AUTO) 66.5 %; PLT - PLATELET COUNT 233 10^3/uL (130-450); RED BLOOD COUNT 3.68 10^6/uL (4.20-5.40); RED CELL DISTRIBUTION WIDTH 13.7 % (12.0-15.0); VBG PH 7.439 (7.31-7.41); WHITE BLOOD COUNT 3.4 x10^3/uL (4.8-10.8)
[2023-07-05 09:59] LABS: ALBUMIN 3.2 g/dL (3.2-5.5); ALBUMIN/GLOBULIN RATIO 1.5 (1.0-2.2); BILIRUBIN,TOTAL 0.3 mg/dL (0.2-1.0); CALCIUM 8.4 mg/dL (8.5-10.3); CREATININE 0.5 mg/dL (0.6-1.3); MAGNESIUM 1.6 mg/dL (1.7-2.3); PHOSPHORUS 2.5 mg/dL (2.5-5.0); TOTAL PROTEIN 5.4 g/dL (6.4-8.9)
[2023-07-05] MEDS: HEPARIN 5,000 UNIT/ML VIAL SUBQ SCH ×2 (10:05→20:57)
[2023-07-05] MEDS: FAMOTIDINE 20 MG/2 ML VIAL IVP SCH (10:07)
[2023-07-05] MEDS: HYDROcod/ACETAM 5/325 MG TABLET PO PRN ×2 (10:19→19:51)
[2023-07-05] MEDS: POTASSIUM CHLORIDE 20 MEQ TABLET PO SCH ×2 (11:18→14:15)
[2023-07-05] MEDS: MAGNESIUM OXIDE 400 MG TABLET PO SCH ×2 (11:18→17:15)
[2023-07-05] MEDS: ACETAMINOPHEN 325 MG TABLET PO PRN (15:24)
--- NOTE | 2023-07-05 16:07 | PROVIDER PROGRESS NOTE ---
Assessment/Plan - Problem List (1) Alcohol withdrawal seizure Qualifiers: Complication of substance-induced condition: uncomplicated Qualified Code(s): F10.930 - Alcohol use, unspecified with withdrawal, uncomplicated; R56.9 - Unspecified convulsions Assessment/Plan: The patient was just discharged home 2 days ago, then presented back later that night with tremors. Then she had a witnessed seizure in the ER. She was admitted to the ICU on a CIWA protocol. The patient was excessively sedated and I changed her po Prednisone to IV Solu- Medrol 20 mg iv, Flagyl p.o. 3 times daily to Flagyl IV every 8 hours, no TMP sulfa was ordered, instead I ordere iv Ceftriaxone for the UTI, and thiamine was in a banana bag w/ iv hydration. Plan: Today she is awake and able to swallow her breakfast. We will change IV meds back to p.o. Continue CIWA protocol and prn Ativan dosing Qualifiers: Complication of substance-induced condition: uncomplicated Qualified Code(s): F10.930 - Alcohol use, unspecified with withdrawal, uncomplicated; R56.9 - Unspecified convulsions (2) Alcohol abuse Today I asked the patient to be brutally honest with me and tell me how much alcohol she takes. Today she said she has 4 glasses of wine a day. Therefore, I suspect she was minimizing her amount of alcohol intake, when she and I spoke during the entire last recent admission, when I took care of her, since her answer was "some wine, about 4 times a week". Plan: Since she is alert and awake, I will have social work see her in consult today regarding alcohol abuse and offer resources. Continue with daily thiamine, changed from IV to p.o. today I discussed importance of decreasing or stopping alcohol use (3) Hypothermia Unclear etiology, but I am most concerned that this could be a sign of Addisonian disease from being off steroids Plan: I will order Amari logan for warming Watch for signs of sepsis, follow her WBC daily (4) Crohn's colitis Impression: The patient was just discharged 2 days ago and was still was to take several more days of oral antibiotics and oral prednisone for the Crohn's colitis flare. Yesterday, when hypersomnolent, I had her on IV dosing Today she is awake, somnolent, closing her eyes and midsentence but is tolerating soft solid food and denies any diarrhea whatsoever Plan: PO meds all resumed Resume diet of soft and easily digestible. (5) Group B streptococcal UTI Impression: The patient was just discharged 2 days ago and was to take oral TMP sulfa for several days for the UTI. Since she was hypersomnolent, I had her on IV ceftriaxone yesterday Plan: I will change her back to po antibiotic today - Current Meds Current Meds: Current Medications Generic Name Dose Route Start Last Admin Trade Name Freq PRN Reason Stop Dose Admin Acetaminophen 650 mg 07/04/23 01:55 07/05/23 15:24 Acetaminophen 325 Mg Tablet PO 650 mg Q4HR PRN Administration Pain 1 to 4, or Fever Hydrocodone Bitart/Acetaminophen 1 tab 07/04/23 01:55 07/05/23 10:19 Hydrocod/Acetam 5/325 Mg Tablet PO 1 tab Q8H PRN Administration Severe Pain (Level 7-10) Heparin Sodium (Porcine) 5,000 unit 07/04/23 09:00 07/05/23 10:05 Heparin 5,000 Unit/Ml Vial SUBQ 5,000 unit BID FRANK Administration Lorazepam 1 - 2 mg 07/04/23 00:54 07/04/23 15:32 Lorazepam 2 Mg/Ml Vial IVP 2 mg PRN PRN Administration Alcohol Withdrawal Lorazepam 2 mg 07/04/23 02:00 07/05/23 00:38 Lorazepam 2 Mg/Ml Vial IVP 2 mg Q30M PRN Administration CIWA >8 Protocol Magnesium Oxide 400 mg 07/05/23 11:00 07/05/23 11:18 Magnesium Oxide 400 Mg Tablet PO 07/05/23 17:01 400 mg Q6H FRANK Administration Protocol Metronidazole 250 mg 07/05/23 08:00 07/05/23 14:15 Metronidazole 250 Mg Tablet PO 250 mg TID FRANK Administration Prednisone 20 mg 07/05/23 09:00 07/05/23 09:03 Prednisone 20 Mg Tablet PO 20 mg DAILY FRANK Administration Multivit/Folic Acid/Iron 1 tab 07/04/23 09:00 07/05/23 09:00 Vitamin Tablet PO 1 tab DAILY FRANK Administration Sodium Chloride 10 ml 07/04/23 09:00 07/05/23 09:11 Sodium Chloride Flush 0.9% 10 Ml Syringe IVP 20 ml 0100,0900,1700 FRANK Administration Thiamine HCl 100 mg 07/05/23 09:00 07/05/23 09:05 Thiamine 100 Mg Tablet PO 100 mg DAILY FRANK Administration Trimethoprim/Sulfamethoxazole 1 tab 07/04/23 09:00 07/05/23 11:10 Sulfameth/Trimeth Ds 800/160 Mg Tablet PO 07/10/23 21:01 1 tab BID FRANK Administration - Lab Result Fish Bone Diagrams: 07/05/23 09:31 07/05/23 09:31 - Additional Planning My Orders: My Active Orders 07/05/23 08:00 metroNIDAZOLE [Flagyl] 250 mg PO TID 07/05/23 09:00 Thiamine [Vitamin B-1] 100 mg PO DAILY predniSONE [Deltasone] 20 mg PO DAILY 07/05/23 11:00 Magnesium Oxide [Mag Ox] 400 mg PO Q6H 07/05/23 11:08 Miscellaenous Nursing Order [RC] QSHIFT 07/05/23 Lunch DIET [Soft (Low Fiber) Diet] [DIET] Subjective - Subjective Patient Reports: Resting Comfortably (Able to speak to me without flight of ideas (like she was on the day of discharge 2 days ago), but her eyes are closing in midsentence) Objective Vital Signs: Vital Signs - 24 hr 07/04/23 07/04/23 07/04/23 17:00 18:00 19:00 Temperature 35.6 C L Heart Rate [ 57 L 57 L 56 L Monitoring electrodes] Respiratory 12 9 L 12 Rate Blood Pressure Blood Pressure 133/85 H 100/76 123/80 [Left Brachial artery] O2 Saturation 92 95 95 07/04/23 07/04/23 07/04/23 20:00 21:00 22:00 Temperature 35.5 C L Heart Rate [ 71 80 74 Monitoring electrodes] Respiratory 23 19 16 Rate Blood Pressure Blood Pressure 119/83 H 165/95 H 170/111 H [Left Brachial artery] O2 Saturation 100 94 96 07/04/23 07/04/23 07/04/23 22:10 22:45 23:00 Temperature 36.0 C L Heart Rate [ 98 Monitoring electrodes] Respiratory 22 Rate Blood Pressure 170/111 H 141/91 H Blood Pressure 133/91 H [Left Brachial artery] O2 Saturation 97 07/05/23 07/05/2323 00:00 01:00 02:00 Temperature Heart Rate [ 78 63 56 L Monitoring electrodes] Respiratory 13 10 L 18 Rate Blood Pressure Blood Pressure 133/91 H 119/67 94/73 [Left Brachial artery] O2 Saturation 97 93 94 07/05/23 07/05/23 07/05/23 03:00 04:00 05:00 Temperature Heart Rate [ 52 L 53 L 51 L Monitoring electrodes] Respiratory 17 11 L 9 L Rate Blood Pressure Blood Pressure 95/66 97/63 98/65 [Left Brachial artery] O2 Saturation 95 94 96 07/05/23 07/05/23 07/05/23 06:00 07:00 08:00 Temperature Heart Rate [ 52 L 72 84 Monitoring electrodes] Respiratory 9 L 16 25 H Rate Blood Pressure Blood Pressure 109/71 126/87 H 154/96 H [Left Brachial artery] O2 Saturation 99 100 98 07/05/23 07/05/23 07/05/23 09:00 10:00 11:00 Temperature 35.6 C L Heart Rate [ 70 66 78 Monitoring electrodes] Respiratory 15 14 16 Rate Blood Pressure Blood Pressure 145/89 H 152/90 H 150/101 H [Left Brachial artery] O2 Saturation 99 98 98 07/05/23 07/05/23 15:15 15:53 Temperature 35.4 C L 32.8 C L Heart Rate [ Monitoring electrodes] Respiratory Rate Blood Pressure Blood Pressure [Left Brachial artery] O2 Saturation Oxygen O2 Source Room air I&O (Last 24 Hrs): Intake and Output Totals x24h 07/03/23 07/04/23 07/05/23 23:59 23:59 23:59 Intake Total 3281.200 2125 Output Total 1730 850 Balance 4871.833 3945 General: Alert (But falls asleep in midsentence) HEENT: Mucous membr. moist/pink, Other (No nystagmus) Neck: Supple Neuro: Other (Lethargic) Cardiovascular: Regular rate Respiratory: No respiratory distress Abdomen: Soft Extremities: No clubbing, No edema, No tenderness/swelling - Results Results: Laboratory Results WBC 3.4 x10^3/uL (4.8-10.8) L 07/05/23 09:31 RBC 3.68 10^6/uL (4.20-5.40) L 07/05/23 09:31 Hgb 10.9 g/dL (12.0-16.0) L 07/05/23 09: Hct 34.2 % (37.0-47.0) L 07/05/23: MCV 92.9 fL (81.0-99.0) 07/05/23: MCH 29.6 pg (27.0-31.0) 07/05/23: MCHC 31.9 g/dL (32.0-36.0) L 07/05/23 09: RDW 13.7 % (12.0-15.0) 07/05/23 09: Plt Count 233 10^3/uL (130-450) 07/05/23: MPV 8.9 fL (7.9-10.8) 07/05/23 09: Neut # (Auto) 2.3 10^3/uL (1.5-6.6) 07/05/23: Lymph # (Auto) 0.8 10^3/uL (1.5-3.5) L 07/05/23 09: [place] # (Auto) 0.3 10^3/uL (0.0-1.0) 07/05/23: Eos # (Auto) 0.1 10^3/uL (0.0-0.7) 07/05/23 09: Baso # (Auto) 0.0 10^3/uL (0.0-0.1) 07/05/23: Absolute Nucleated RBC 0.00 x10^3/uL 07/05/23: Nucleated RBC % 0.0 /100WBC 07/05/23 09: PT 11.7 secs (9.9-12.6) 07/04/23 02:21 INR 1.1 (0.8-1.2) 07/04/23 02:21 VBG pH 7.439 (7.31-7.41) H 07/05/23 09:31 VBG pCO2 32.7 mmHg (41-51) L 07/03/23 22:31 VBG pO2 107.0 mmHg (25-47) H 07/03/23 22:31 VBG HCO3 20.6 mmol/L (23-28) L 07/03/23 22:31 VBG Total CO2 21.6 mmol/L (24-29) L 07/03/23 22:31 VBG O2 Saturation 97.7 % (60-80) H 07/03/23 22:31 VBG Base Excess -3.0 mmol/L (-2 - +2) L 07/03/23 22:31 Ionized Calcium 1.14 mmol/L (1.15-1.33) L 07/05/23 09:31 Sodium 142 mmol/L (135-145) 07/05/23 09:31 Potassium 3.0 mmol/L (3.5-4.5) L 07/05/23 09:31 Chloride 114 mmol/L (101-111) H 07/05/23 09:31 Carbon Dioxide 22 mmol/L (21-32) 07/05/23 09:31 Anion Gap 6.0 (6-13) 07/05/23 09:31 BUN 4 mg/dL (6-20) L 07/05/23 09:31 Creatinine 0.5 mg/dL (0.6-1.3) L 07/05/23 09:31 Estimated GFR (MDRD) 125 (>89) 07/05/23 09:31 Glucose 121 mg/dL (74-104) H 07/05/23 09:31 POC Whole Bld Glucose 139 mg/dL (70 - 100) H 07/03/23 22:02 Estimat Average Glucose 105 mg/dL (70-100) H 07/04/23 07:47 Hemoglobin A1c % 5.3 % (4.27-6.07) 07/04/23 07:47 Lactic Acid 1.2 mmol/L (0.5-2.2) 07/04/23 07:47 Calcium 8.4 mg/dL (8.5-10.3) L 07/05/23 09:31 Phosphorus 2.5 mg/dL (2.5-5.0) 07/05/23 09:31 Magnesium 1.6 mg/dL (1.7-2.3) L 07/05/23 09:31 Total Bilirubin 0.3 mg/dL (0.2-1.0) 07/05/23 09:31 AST 22 IU/L (10-42) 07/05/23 09:31 ALT 22 IU/L (10-60) 07/05/23 09:31 Alkaline Phosphatase 63 IU/L (42-121) 07/05/23 09:31 Total Protein 5.4 g/dL (6.4-8.9) L 07/05/23 09:31 Albumin 3.2 g/dL (3.2-5.5) 07/05/23 09:31 Globulin 2.2 g/dL (2.1-4.2) 07/05/23 09:31 Albumin/Globulin Ratio 1.5 (1.0-2.2) 07/05/23 09:31 Lipase 22 U/L (22-51) 07/03/23 22:31 Urine Color YELLOW 07/04/23 05:55 Urine Clarity CLEAR (CLEAR) 07/04/23 05:55 Urine pH 7.0 PH (5.0-7.5) 07/04/23 05:55 Ur Specific [place] <=1.005 (1.002-1.030) 07/04/23 05:55 Urine Protein NEGATIVE mg/dL (NEGATIVE) 07/04/23 05:55 Urine Glucose (UA) NEGATIVE mg/dL (NEGATIVE) 07/04/23 05:55 Urine Ketones NEGATIVE mg/dL (NEGATIVE) 07/04/23 05:55 Urine Occult Blood NEGATIVE (NEGATIVE) 07/04/23 05:55 Urine Nitrite NEGATIVE (NEGATIVE) 07/04/23 05:55 Urine Bilirubin NEGATIVE (NEGATIVE) 07/04/23 05:55 Urine Urobilinogen 0.2 (NORMAL) E.U./dL (NORMAL) 07/04/23 05:55 Ur Leukocyte Esterase SMALL (NEGATIVE) H 07/04/23 05:55 Urine RBC 0-5 /HPF (0-5) 07/04/23 05:55 Urine WBC 0-3 /HPF (0-5) 07/04/23 05:55 Ur Squamous Epith Cells FEW Squamous (<= Few) 07/04/23 05:55 Urine Bacteria Rare /HPF (None Seen) 07/04/23 05:55 Urine Culture Comments INDICATED 07/04/23 05:55 Nasal Screen MRSA (PCR) NEGATIVE (NEGATIVE) 07/04/23 03:23 Salicylates < 1.5 mg/dL 07/03/23 22:31 Urine Opiates Screen POSITIVE (NEGATIVE) H 07/03/23 22:22 Ur Oxycodone Screen NEGATIVE (NEGATIVE) 07/03/23 22:22 Urine Methadone Screen NEGATIVE (NEGATIVE) 07/03/23 22:22 Ur Propoxyphene Screen NEGATIVE (NEGATIVE) 07/03/23 22:22 Acetaminophen 1.1 ug/mL 07/03/23 22:31 Ur Barbiturates Screen NEGATIVE (NEGATIVE) 07/03/23 22:22 Ur Tricyclics Screen NEGATIVE (NEGATIVE) 07/03/23 22:22 Ur Phencyclidine Scrn NEGATIVE (NEGATIVE) 07/03/23 22:22 Ur Amphetamine Screen NEGATIVE (NEGATIVE) 07/03/23 22:22 U Methamphetamines Scrn NEGATIVE (NEGATIVE) 07/03/23 22:22 U Benzodiazepines Scrn NEGATIVE (NEGATIVE) 07/03/23 22:22 Urine Cocaine Screen NEGATIVE (NEGATIVE) 07/03/23 22:22 U Cannabinoids Screen NEGATIVE (NEGATIVE) 07/03/23 22:22 Ethyl Alcohol < 10.0 mg/dL 07/03/23 22:31
[2023-07-06] MEDS: ACETAMINOPHEN 325 MG TABLET PO PRN (00:20)
[2023-07-06] MEDS: SODIUM CHLORIDE FLUSH 0.9% 10 ML SYRINGE IVP SCH ×2 (00:20→08:25)
[2023-07-06] MEDS: metroNIDAZOLE 250 MG TABLET PO SCH (05:37)
[2023-07-06] MEDS: PRENATAL VITAMIN TABLET PO SCH (08:25)
[2023-07-06] MEDS: predniSONE 20 MG TABLET PO SCH (08:25)
[2023-07-06] MEDS: HEPARIN 5,000 UNIT/ML VIAL SUBQ SCH (08:25)
[2023-07-06] MEDS: SULFAMETH/TRIMETH DS 800/160 MG TABLET PO SCH (08:25)
[2023-07-06] MEDS: THIAMINE 100 MG TABLET PO SCH (08:25)
[2023-07-06 09:29] LABS: ALBUMIN 3.6 g/dL (3.2-5.5)
[2023-07-06 09:37] VITALS: BP 166/92; O2SAT 95
[2023-07-06 09:37] LABS: POTASSIUM 3.7 mmol/L (3.5-4.5)
[2023-07-06 09:59] LABS: BASOPHILS % (AUTO) 0.9 %; EOSINOPHILS % (AUTO) 0.9 %; HCT - HEMATOCRIT 38.1 % (37.0-47.0); HGB - HEMOGLOBIN 12.1 g/dL (12.0-16.0); LYMPHOCYTES % (AUTO) 22.7 %; MEAN CORPUSCULAR HEMOGLOBIN 29.6 pg (27.0-31.0); MEAN CORPUSCULAR HGB CONC 31.8 g/dL (32.0-36.0); MEAN CORPUSCULAR VOLUME 93.2 fL (81.0-99.0); MEAN PLATELET VOLUME 9.1 fL (7.9-10.8); MONOCYTES # (AUTO) 0.3 10^3/uL (0.0-1.0); NEUTROPHILS % (AUTO) 67.8 %; PLT - PLATELET COUNT 294 10^3/uL (130-450); RED BLOOD COUNT 4.09 10^6/uL (4.20-5.40); RED CELL DISTRIBUTION WIDTH 13.7 % (12.0-15.0); WHITE BLOOD COUNT 4.4 x10^3/uL (4.8-10.8)
[2023-07-06 12:30] LABS: ALBUMIN/GLOBULIN RATIO 1.3 (1.0-2.2); BILIRUBIN,TOTAL 0.3 mg/dL (0.2-1.0); CALCIUM 9.4 mg/dL (8.5-10.3); CREATININE 0.7 mg/dL (0.6-1.3); TOTAL PROTEIN 6.3 g/dL (6.4-8.9)
--- NOTE | 2023-07-06 12:58 | Discharge Plan ---
Discharge Plan Problem Reviewed?: Yes Disposition: Home, Self Care Condition: Fair Prescriptions: LORazepam [Ativan] 1 mg PO DAILY PRN #5 tablet PRN Reason: As Needed Per Provider Orders Magnesium Oxide [Mag-Oxide] 200 mg PO DAILY #5 tablet Thiamine [Vitamin B-1] 100 mg PO DAILY #30 tab Diet: Soft Activity Restrictions: Activity as Tolerated Shower Restrictions: No Driving Restrictions: Yes (No driving if you are dizzy or sleepy) Instruction Topics: Withdrawal Alcohol What Expect, ED Seizure Alcohol Withdrawal, ED Withdrawal Alcohol Health Concerns: You were hospitalized because you went through DTs and had an alcohol withdrawal seizure. This means that your alcohol use is too much. This is dangerous for you and could add to liver damage. It is advised that you decrease your alcohol intake or stop it. You required Lorazepam medicine given here to safely get through the alcohol withdrawal. Several tablets of Lorazepam are prescribed for you to use at home, if you feel like you are going through tremors (DTs). Also you are low in magnesium and thiamine and new prescriptions for those have also been sent to your [facility] in [place]. You were also seen by our social science teacher who gave you resources for stopping excessive alcohol intake. While you were here, you were also treated for the recent colitis and urinary tract infection. As you go home, you only have 4 more days of antibiotics to take, which were previously prescribed for the colitis and urinary tract infection. Also remember to restart your prednisone 20 mg daily with a tapering schedule down, that you were given previously. Please see your primary care provider in the next 1 to 2 weeks for hospital follow-up visit for all these issues. Plan of Treatment: As above. Care Goals: Improvement in symptoms and stabilization are the goals. Assessment: The patient understands and is agreeable with the plan. Additional Instructions or Follow Up instructions: If you have new or worsening symptoms, call your PCP or your Stock Car Driver for advice, or come to the ER. No Smoking: If you smoke, Please STOP! Call for help. Follow-up with: Amy Yancey ARNP [Primary Care Provider] -
--- NOTE | 2023-07-06 13:37 | DISCHARGE SUMMARY ---
Discharge Summary Admit Date: 07/04/23 Discharge Date: 07/06/23 Discharging Provider: Tejal Luis MD Primary Care Provider: Amy Yancey NP Condition at Discharge: Fair Discharge Disposition: 01 Home, Self Care - HPI History of Present Illness: Unable to obtain history from pt d/t sedation. History obtained from staff, chart. 63 yo F with h/o Crohn's Dz s/p partial colectomy and Ileostomy placement, HTN and recent hospitalization for Crohn's Colitis and UTI presented to the ER for c/o 1 day h/o tremors. Pt was hospitalized at [facility] from 06/30-07/03/23 for Crohn's Colitis and UTI and discharged on Prednisone, Flagyl, Bactrim. During her hospitalization, she was also on CIME protocol and receiving Ativan PRN d/t her alcohol history. Pt drinks 2 beers + 1 glass of wine/day prior to this hospitalization. No alcohol use s/p discharge. After pt was discharged home yesterday, she began to feel agitated and had tremors. No CP/SOB/cough/F/C. She thought she might be having a reaction to her medications. No rash. In the ER, BP 158/125, HR 125, K 2.8, LA 5.9, Glc 160, Hgb 1..9, UDS: opiate+ Pt had a witnessed tonic-clonic seizure in the ER. She was given Ativan 2 mg IM and seizure stopped. Pt was also given Phenobarbital, KCl 40 mEq IV in the ER. - HOSPITAL COURSE Hospital Course: (1) Alcohol withdrawal seizure It had been 4 days of her recent inpatient stay, that she had not had any alcohol, and during that admission she did not disclose how much she really drank. She had a witnessed seizure in the ER, and was admitted to the ICU on a CIME protocol. She needed iv Ativan and a Banana bag. She was excessively sedated for a day. After going through withdrawal, then awakening, at discharge she was prescribed 4 tablets of Lorazepam. (2) Alcohol abuse She admitted to drinking 4 glasses of wine a day. Therefore, I suspect she was minimizing her amount of alcohol intake, when she and I spoke during the entire last recent admission, when I took care of her, since her answer then was "some wine, about 4 times a week". Our director of social work saw her in consult regarding alcohol abuse and to offer resources. She said she did not need any help. I discussed with her the importance of decreasing or stopping alcohol use. She was discharged with a prescription for daily Thiamine and Magnesium. (4) Crohn's colitis The patient was just discharged and was to take oral Flagyl for several days and resume Prednisone 20 mg daily for treating the colitis. While she was hypersomnolent, from getting Lorazepam, I had her on IV Solumedrol and IV Flagyl, then she was changed her back to po antibiotic and po Prednsone and she resumed a soft and easily digestible diet. Her diarrhea stopped while she was here during this admission. (5) Group B streptococcal UTI The patient was just discharged and was to take oral TMP sulfa for several days for treating the UTI. While she was hypersomnolent, from gettimng Lorazepam, I had her on IV ceftriaxone, then she was changed her back to po antibiotic - ALLERGIES Allergies/Adverse Reactions: Allergies Allergy/AdvReac Type Severity Reaction Status Date / Time Penicillins Allergy Anaphylaxis Verified 07/03/23 20:19 - MEDICATIONS Home Medications: Ambulatory Orders Medication Instructions Recorded Confirmed Infliximab-Dyyb [Inflectra] 100 mg IV ONCE 06/29/23 07/04/23 Acetaminophen [Tylenol] 650 mg PO Q4HR PRN tab 07/03/23 07/04/23 Ergocalciferol (Vitamin D2) 1,250 mcg PO DAILY #30 cap 07/03/23 07/04/23 [Drisdol] HYDROcod/ACETAM 5/325 [Lipan 5/325] 1 tab PO Q8H PRN #8 tablet 07/03/23 07/04/23 Loperamide [Imodium] 2 mg PO TID PRN #15 cap 07/03/23 07/04/23 Sulfamethox/Trimeth 800/160 1 tablet PO BID 7 Days #14 tablet 07/03/23 07/04/23 [Bactrim Ds] metroNIDAZOLE [Flagyl] 250 mg PO TID #21 tablet 07/03/23 07/04/23 predniSONE [Deltasone] 20 mg PO DAILY #30 tab 07/03/23 07/04/23 LORazepam [Ativan] 1 mg PO DAILY PRN #5 tablet 09/07/23 Magnesium Oxide [Mag-Oxide] 200 mg PO DAILY #5 tablet 07/06/23 Thiamine [Vitamin B-1] 100 mg PO DAILY #30 tab 07/06/23 - PHYSICAL EXAM AT DISCHARGE General Appearance: positive: No acute distress, Alert Eyes Bilateral: positive: Normal inspection, EOMI ENT: positive: ENT inspection nml, No signs of dehydration Neck: positive: Nml inspection, No JVD Respiratory: positive: No respiratory distress, Breath sounds nml Cardiovascular: positive: Regular rate & rhythm, No murmur Abdomen: positive: Non-tender, No distention, Other (colostomy bag on R) Skin: positive: Warm, Dry Extremities: positive: Non-tender, No pedal edema Neurologic/Psychiatric: positive: Oriented x3, Motor nml - LABS Result Diagrams: 07/06/23 09:55 07/06/23 09:11 - FOLLOW UP Follow Up: See PCP in 1 to 2 weeks for a hospital follow-up visit regarding the UTI and colitis admission and regarding this alcohol withdrawal admission. - TIME SPENT Time Spent in Discharge (Minutes): 40
== END 2023-07-06 14:23 | disposition home or self-care (01) | DRG 897 ==
LOC: ED 19:56 → ICU 07-04 02:01 → MS2 07-05 19:23
PROVIDERS: ADMIT Internal Medicine; ATTEND Internal Medicine
DX: F10.239 Alcohol dependence with withdrawal, unspecified (principal); K50.10 Crohn's disease of large intestine without complications; N39.0 Urinary tract infection, site not specified; E87.20 Acidosis, unspecified; I10 Essential (primary) hypertension; B95.1 Streptococcus, group B, as the cause of diseases classified elsewhere; E87.6 Hypokalemia; R40.0 Somnolence; R68.0 Hypothermia, not associated with low environmental temperature; R73.9 Hyperglycemia, unspecified; R94.31 Abnormal electrocardiogram [ECG] [EKG]; Z88.0 Allergy status to penicillin; Z90.49 Acquired absence of other specified parts of digestive tract; Z93.2 Ileostomy status
CPT/HCPCS: 36415; 70450; 80048; 80053; 80306; 80307; 80320; 80329; 81001; 82330; 82803; 83036; 83605; 83690; 83735; 84100; 84132; 85025; 85610; 87086; 87150; 93005; 96365; 96375; 96376; 99285; A9270; J2060; J3411; J7512

== ENCOUNTER 2023-08-17 13:45 | Outpatient (CLI) | payer OTHER ==
--- NOTE | 2023-08-17 19:40 | XRAY Report ---
PROCEDURE: Foot 3 View RT INDICATIONS: NODULE OF SKIN OF FOOT TECHNIQUE: 3 views of the foot were obtained. COMPARISON: None FINDINGS: Bones: No fractures or dislocations. No suspicious bony lesions. First interphalangeal joint as wel l as intratarsal degenerative changes Soft tissues: Unremarkable. No radiopaque foreign body. IMPRESSION: Osteoarthritic degenerative changes. Reviewed by: Jermaine Bishop MD on 08/17/2023 6:39 PM AKDT Approved by: Jermaine Bishop MD on 08/17/2023 6:39 PM AKDT Station ID: [id number]
== END 2023-08-17 13:46 | disposition home or self-care (01) ==
LOC: DI.S 13:45
PROVIDERS: ATTEND Registered Nurse
DX: R22.41 Localized swelling, mass and lump, right lower limb (principal); M19.071 Primary osteoarthritis, right ankle and foot

== ENCOUNTER 2023-08-22 08:55 | Emergency (ER) | payer OTHER ==
--- NOTE | 2023-08-22 09:40 | ED Physician Documentation ---
PD HPI URI - Stated complaint Stated Complaint: N/V NECK/BACK PX - Chief complaint Chief Complaint: General - History obtained from History obtained from: Patient - History of Present Illness Timing - onset: How many days ago (2) Timing duration: Days (2) Timing details: Gradual onset, Still present Associated symptoms: Fever, Chills, Nasal congestion, Dry cough, Other (back aching) Contributing factors: No: Sick contact Similar symptoms before: Has not had sx before Recently seen: Clinic (gets injections every 8 weeks for crohns.) Review of Systems Constitutional: reports: Fever, Chills Nose: reports: Rhinorrhea / runny nose Throat: denies: Sore throat Respiratory: reports: Cough GI: reports: Nausea, Diarrhea (states ostomy output is watery.). denies: Vomiting : denies: Dysuria Skin: denies: Rash, Lesions PD PAST MEDICAL HISTORY - Past Medical History Cardiovascular: None Respiratory: None Neuro: None Endocrine/Autoimmune: None GI: Crohn's disease PAYMENT ANALYST: None : None HEENT: None Psych: None Musculoskeletal: None Derm: None - Past Surgical History Past Surgical History: Yes General: Bowel surgery /PAYMENT ANALYST: section Derm: Other - Present Medications Home Medications: Ambulatory Orders Medication Instructions Recorded Confirmed HYDROcod/ACETAM 5/325 [Langlois 5/325] 1 ea PO Q6H PRN #12 tablet 08/22/23 08/23/23 Ondansetron Odt [Zofran] 4 mg TL Q6H PRN #10 tablet 08/22/23 08/23/23 - Allergies Allergies/Adverse Reactions: Allergies Allergy/AdvReac Type Severity Reaction Status Date / Time Penicillins Allergy Anaphylaxis Verified 08/23/23 00:41 - Social History Does the pt smoke?: No Smoking Status: Never smoker Does the pt drink ETOH?: Yes Does the pt have substance abuse?: No - Immunizations Immunizations are current?: No Immunizations: TDAP >10years/unknown - POLST Patient has POLST: No PD ED PE NORMAL - Vitals Vital signs reviewed: Yes (tachycardic initially) - General General: Alert and oriented X 3, Well developed/nourished - HEENT HEENT: Pharynx benign - Neck Neck: Supple, no meningeal sign, No adenopathy - Cardiac Cardiac: No murmur - Respiratory Respiratory: No respiratory distress, Clear bilaterally - Abdomen Abdomen: Normal bowel sounds, Soft, Non tender, Non distended - Derm Derm: Normal color, Warm and dry - Neuro Neuro: Alert and oriented X 3, No motor deficit, Normal speech Results - Vitals Vitals: Vital Signs - 24 hr 08/22/23 08/22/23 08/22/23 09:08 10:37 13:35 Temperature 37.1 C Heart Rate 114 H 96 98 Respiratory 20 18 18 Rate Blood Pressure 119/91 H 99/58 L 99/64 O2 Saturation 98 96 97 Oxygen O2 Source Room air - Labs Labs: Microbiology 08/22/23 11:21 Blood Culture - Preliminary Blood - Left Hand 08/22/23 11:05 Blood Culture (PCR) - Final Blood - Right Arm 08/22/23 11:30 Blood Culture - Preliminary Blood - Right Arm Laboratory Tests 08/22/23 08/22/23 08/22/23 09:35 10:20 10:20 WBC 5.5 RBC 4.32 Hgb 12.2 Hct 38.2 MCV 88.4 MCH 28.2 MCHC 31.9 L RDW 14.2 Plt Count 240 MPV 9.9 Neut # (Auto) RHIC SYSTEMS SAFETY ENGINEER Lymph # (Auto) RHIC SYSTEMS SAFETY ENGINEER Clay # (Auto) RHIC SYSTEMS SAFETY ENGINEER Eos # (Auto) RHIC SYSTEMS SAFETY ENGINEER Baso # (Auto) RHIC SYSTEMS SAFETY ENGINEER Absolute Nucleated RBC RHIC SYSTEMS SAFETY ENGINEER Total Counted 100 Band Neuts % (Manual) 46 H Abnorm Lymph % (Manual) 0 Metamyelocytes % 3 H Myelocytes % 3 H Nucleated RBC % RHIC SYSTEMS SAFETY ENGINEER Neutrophils # (Manual) 4.7 Lymphocytes # (Manual) 0.0 L Monocytes # (Manual) 0.2 Eosinophils # (Manual) 0.2 Basophils # (Manual) 0.1 Nucleated RBCs 1 Differential Comment MANUAL DIFFERENTIAL RBC Morph Micro Appear 2+ ANISOCYTOSIS Sodium 135 Potassium 5.7 H Chloride 108 Carbon Dioxide 20 L Anion Gap 7.0 BUN 18 Creatinine 1.1 Estimated GFR (MDRD) 50 L Glucose 100 Lactic Acid Calcium 9.3 Total Bilirubin 1.8 H AST 61 H ALT 76 H Alkaline Phosphatase 165 H Total Protein 6.3 L Albumin 3.6 Globulin 2.7 Albumin/Globulin Ratio 1.3 Lipase 15 Nasal Adenovirus (PCR) NOT DETECTED Nasal B. parapertussis DNA (PCR) NOT DETECTED Nasal Coronavir 229E PCR NOT DETECTED Nasal Coronavir HKU1 PCR NOT DETECTED Nasal Coronavir NL63 PCR NOT DETECTED Nasal Coronavir OC43 PCR NOT DETECTED Nasal Enterovir/Rhinovir PCR NOT DETECTED Nasal Influenza B PCR NOT DETECTED Nasal Influenza A PCR NOT DETECTED Nasal Parainfluen 1 PCR NOT DETECTED Nasal Parainfluen 2 PCR NOT DETECTED Nasal Parainfluen 3 PCR NOT DETECTED Nasal Parainfluen 4 PCR NOT DETECTED Nasal RSV (PCR) NOT DETECTED Nasal B.pertussis DNA PCR NOT DETECTED Nasal C.pneumoniae (PCR) NOT DETECTED Daniel Human Metapneumo PCR NOT DETECTED Nasal M.pneumoniae (PCR) NOT DETECTED Nasal SARS-CoV-2 (PCR) NOT DETECTED 08/22/23 11:30 WBC RBC Hgb Hct MCV MCH MCHC RDW Plt Count MPV Neut # (Auto) Lymph # (Auto) Clay # (Auto) Eos # (Auto) Baso # (Auto) Absolute Nucleated RBC Total Counted Band Neuts % (Manual) Abnorm Lymph % (Manual) Metamyelocytes % Myelocytes % Nucleated RBC % Neutrophils # (Manual) Lymphocytes # (Manual) Monocytes # (Manual) Eosinophils # (Manual) Basophils # (Manual) Nucleated RBCs Differential Comment RBC Morph Micro Appear Sodium Potassium Chloride Carbon Dioxide Anion Gap BUN Creatinine Estimated GFR (MDRD) Glucose Lactic Acid 1.5 Calcium Total Bilirubin AST ALT Alkaline Phosphatase Total Protein Albumin Globulin Albumin/Globulin Ratio Lipase Nasal Adenovirus (PCR) Nasal B. parapertussis DNA (PCR) Nasal Coronavir 229E PCR Nasal Coronavir HKU1 PCR Nasal Coronavir NL63 PCR Nasal Coronavir OC43 PCR Nasal Enterovir/Rhinovir PCR Nasal Influenza B PCR Nasal Influenza A PCR Nasal Parainfluen 1 PCR Nasal Parainfluen 2 PCR Nasal Parainfluen 3 PCR Nasal Parainfluen 4 PCR Nasal RSV (PCR) Nasal B.pertussis DNA PCR Nasal C.pneumoniae (PCR) Daniel Human Metapneumo PCR Nasal M.pneumoniae (PCR) Nasal SARS-CoV-2 (PCR) PD Medical Decision Making - ED course Complexity details: considered differential, d/w patient ED course: The patient presents with flulike symptoms with some sore throat and cough body aches and chills. She was having nausea with some vomiting but mostly decreased oral intake. She has a ileostomy from Crohn's and states the output was looser than usual. No noted blood. She does have a history of Crohn's and gets Humira injections every 2 months. History of alcohol use in the past but denies any in the last month. She had been admitted a month ago for alcohol withdrawal and states she had been sober since that time. The patient had a slightly low blood pressure initially at 98/48. Heart rate was mildly tachycardic. This did improve with IV fluids though her blood pressure is still on the lower side. Her viral respiratory panel is negative. Her white count is normal at 5.5 but does have a significant bandemia of 46%. In evaluating prior CBCs however it does look like she has a bandemia on all prior CBCs. She denies any history of blood dyscrasias. Her lactate is negative. LFTs are slightly elevated but comparable to prior levels. Kidney function is good. I did do blood cultures given that there was not an identified source of infection per se. She did not have any urinary symptoms and had not given a urine sample as yet. At this point the patient appears improved and is feeling well and would like to be discharged. I did have pause when I saw the differential on her CBC but him reassured that its pretty much consistent with all prior blood counts. She appears well and does not appear septic. I feel comfortable discharging at this point. She is to return if worsening again. Departure - Departure Disposition: Home, Self Care Clinical Impression: Nausea, Flu-like symptoms, Dehydration Condition: Stable Record reviewed to determine appropriate education?: Yes Follow-Up: Amy Yancey ARNP [Primary Care Provider] - Prescriptions: HYDROcod/ACETAM 5/325 [Langlois 5/325] 1 ea PO Q6H PRN #12 tablet PRN Reason: Pain Ondansetron Odt [Zofran] 4 mg TL Q6H PRN #10 tablet PRN Reason: Nausea / Vomiting Comments: Your viral PCR nose test is negative for COVID, flu, RSV and other several viruses. It does not include all viruses so he may still have a "flulike" illness going on. At this point there does not appear to be other localized infections. You did seem under hydrated and were given some IV fluids as well as medication to help with nausea. You do appear a bit better. Small frequent fluids through the day and food as tolerated. Ondansetron every 6 hours if needed for nausea. Tylenol 500 mg 4 times daily if needed for fevers or pains. Add pain medicine if needed. I would anticipate improvement over the next couple of days or so if this is a viral type illness. Recheck if not improved or if you have worsening general symptoms, repetitive vomiting, localized pains or other concerns. [email or web address] [place]. Forms: PCP List Discharge Date/Time: 08/22/23 13:36
[2023-08-22] MEDS ORDERED: ONDANSETRON 4 MG/2 ML VIAL IVP STA (09:53)
[2023-08-22] MEDS ORDERED: SODIUM CHLORIDE 0.9% 1,000 ML IV STA ×2 (09:53→11:04)
[2023-08-22] MEDS ORDERED: MORPHINE 2 MG/ML CARPUJECT IVP STA (09:53)
[2023-08-22] MEDS ORDERED: KETOROLAC 15 MG/ML VIAL IVP STA (09:53)
[2023-08-22 10:24] LABS: BASOPHILS % (AUTO) 0.4 %; EOSINOPHILS % (AUTO) 2.2 %; HCT - HEMATOCRIT 38.2 % (37.0-47.0); HGB - HEMOGLOBIN 12.2 g/dL (12.0-16.0); LYMPHOCYTES % (AUTO) 0.9 %; MEAN CORPUSCULAR HEMOGLOBIN 28.2 pg (27.0-31.0); MEAN CORPUSCULAR HGB CONC 31.9 g/dL (32.0-36.0); MEAN CORPUSCULAR VOLUME 88.4 fL (81.0-99.0); MEAN PLATELET VOLUME 9.9 fL (7.9-10.8); MONOCYTES % (AUTO) 1.7 %; NEUTROPHILS % (AUTO) 94.6 %; PLT - PLATELET COUNT 240 10^3/uL (130-450); RED BLOOD COUNT 4.32 10^6/uL (4.20-5.40); RED CELL DISTRIBUTION WIDTH 14.2 % (12.0-15.0); WHITE BLOOD COUNT 5.5 x10^3/uL (4.8-10.8)
[2023-08-22 10:31] LABS: ABNORMAL LYMPHS % (MANUAL) 0 %; LYMPHOCYTES % (MANUAL) 0 %
[2023-08-22 10:37] LABS: ALBUMIN 3.6 g/dL (3.2-5.5); ALBUMIN/GLOBULIN RATIO 1.3 (1.0-2.2); BILIRUBIN,TOTAL 1.8 mg/dL (0.2-1.0); CALCIUM 9.3 mg/dL (8.5-10.3); CREATININE 1.1 mg/dL (0.6-1.3); POTASSIUM 5.7 mmol/L (3.5-4.5); TOTAL PROTEIN 6.3 g/dL (6.4-8.9)
[2023-08-22 10:38] LABS: B. PARAPERTUSSIS- RESP PCR PAN NOT DETECTED; B. PERTUSSIS- RESP PCR PANEL NOT DETECTED; CORONAVIRUS 229E-RESP PCR NOT DETECTED; CORONAVIRUS HKU1-RESP PCR NOT DETECTED; CORONAVIRUS NL63-RESP PCR NOT DETECTED; CORONAVIRUS OC43-RESP PCR NOT DETECTED; HUMAN METAPNEUMOVIRUS NOT DETECTED; INFLUENZA A- RESP PCR PANEL NOT DETECTED; INFLUENZA B - RESP PCR PANEL NOT DETECTED; PARAINFLUENZA VIRUS 1 NOT DETECTED; PARAINFLUENZA VIRUS 2 NOT DETECTED; PARAINFLUENZA VIRUS 3 NOT DETECTED; PARAINFLUENZA VIRUS 4 NOT DETECTED; RHINOVIRUS/ENTEROVIRUS NOT DETECTED; RSV- RESP PCR PANEL NOT DETECTED; SARS-CoV-2 -RESP PCR PANEL NOT DETECTED
[2023-08-22 10:39] LABS: C. PNEUMONIAE- RESP PCR PANEL NOT DETECTED; M. PNEUMONIAE- RESP PCR PANEL NOT DETECTED
[2023-08-22 10:58] LABS: BAND NEUTROPHILS % (MANUAL) 46 %; BASOPHILS # (MANUAL) 0.1 10^3/uL (0-0.1); BASOPHILS % (MANUAL) 1 %; DIFFERENTIAL COMMENT MANUAL DIFFERENTIAL; EOSINOPHILS # (MANUAL) 0.2 10^3/uL (0-0.7); METAMYELOCYTES % (MANUAL) 3 %; MONOCYTES # (MANUAL) 0.2 10^3/uL (0.0-1.0); MYELOCYTES % (MANUAL) 3 %; NEUTROPHILS # (MANUAL) 4.7 10^3/uL (1.5-6.6); NUCLEATED RBC (MANUAL) 1 %; RBC MORPHOLOGY (MULTIPLE) 2+ ANISOCYTOSIS (NORMAL)
[2023-08-22 13:36] VITALS: BP 99/64; O2SAT 97
[2023-08-23] MEDS ORDERED: HYDROcod/ACETAM 10 MG/325 MG TABLET PO PRN (07:46)
[2023-08-23] MEDS ORDERED: SODIUM CHLORIDE FLUSH 0.9% 10 ML SYRINGE IVP PRN (07:46)
[2023-08-23] MEDS ORDERED: oxyCODONE 5 MG TABLET PO PRN (07:46)
[2023-08-23] MEDS ORDERED: PROCHLORPERAZINE 10 MG/2 ML VIAL IVP PRN (07:46)
[2023-08-23] MEDS ORDERED: ONDANSETRON 4 MG/2 ML VIAL IVP PRN (07:46)
[2023-08-23] MEDS ORDERED: ACETAMINOPHEN 325 MG TABLET PO PRN (07:46)
--- NOTE | 2023-08-23 07:51 | HISTORY & PHYSICAL EXAMINATION ---
Chief Complaint - Chief Complaint Chief Complaint: fever, chill, cough, unwell feeling History of Present Illness - History of Present Illness HPI Comment/Other: Please see H&P on the 08/23/2023 encounter This patient had two visits in the ED, one is on 08/22, second one is on 08/23 Patient was called for admission on the 08/23/2023 encounter All the orders and document from hospitalist service should all being placed under the 08/23/2023 encounter. 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
[2023-08-23] MEDS ORDERED: ENOXAPARIN 40 MG/0.4 ML SYRINGE SUBQ SCH (09:00)
[2023-08-23] MEDS ORDERED: SODIUM CHLORIDE FLUSH 0.9% 10 ML SYRINGE IVP SCH (09:00)
[2023-08-23] MEDS ORDERED: FAMOTIDINE 20 MG/2 ML VIAL IVP SCH (09:00)
[2023-08-24 05:14] LABS: EOSINOPHILS % (AUTO) 2.1 %; HCT - HEMATOCRIT 30.4 % (37.0-47.0); HGB - HEMOGLOBIN 10.1 g/dL (12.0-16.0); MEAN CORPUSCULAR HEMOGLOBIN 28.5 pg (27.0-31.0); MEAN CORPUSCULAR HGB CONC 33.2 g/dL (32.0-36.0); MEAN CORPUSCULAR VOLUME 85.9 fL (81.0-99.0); MEAN PLATELET VOLUME 11.1 fL (7.9-10.8); MONOCYTES % (AUTO) 1.2 %; NEUTROPHILS % (AUTO) 87.4 %; PLT - PLATELET COUNT 99 10^3/uL (130-450); RED BLOOD COUNT 3.54 10^6/uL (4.20-5.40); WHITE BLOOD COUNT 11.2 x10^3/uL (4.8-10.8)
[2023-08-24 05:24] LABS: ABNORMAL LYMPHS % (MANUAL) 0 %
[2023-08-24 06:38] LABS: BAND NEUTROPHILS % (MANUAL) 41 %; EOSINOPHILS # (MANUAL) 0.4 10^3/uL (0-0.7); LYMPHOCYTES # (MANUAL) 0.2 10^3/uL (1.5-3.5); LYMPHOCYTES % (MANUAL) 2 %; METAMYELOCYTES % (MANUAL) 2 %; MONOCYTES # (MANUAL) 0.1 10^3/uL (0.0-1.0); MYELOCYTES % (MANUAL) 2 %; RBC MORPHOLOGY (MULTIPLE) NORMAL APPEARANCE (NORMAL)
[2023-08-24 06:39] LABS: DIFFERENTIAL COMMENT MANUAL DIFFERENTIAL; PLATELET ESTIMATE, MANUAL DECREASED (<130,000) (NORMAL); WBC MORPHOLOGY (MULTIPLE) 1+ TOXIC GRANULATION (NORMAL)
== END 2023-08-22 13:36 | disposition home or self-care (01) ==
LOC: ED 08:55
DX: E86.0 Dehydration (principal); R11.2 Nausea with vomiting, unspecified; Z20.822 Contact with and (suspected) exposure to COVID-19
CPT/HCPCS: 36415; 80053; 83605; 83690; 85025; 87040; 87150; 87181; 87633; 96361; 96374; 96375; 99284

== ENCOUNTER 2023-08-23 00:21 | Inpatient (IN) | payer OTHER ==
[~2023-08-23 00:21] MED LIST: VANCOMYCIN INJ 500 MG in SODIUM CHLORIDE 0.9% 100ML 100 ML IV SCH
[2023-08-23] MEDS ORDERED: cefTRIAXone 2 GM in SODIUM CHLORIDE 0.9% MINIBAG 100 ML IV STA (00:31)
[2023-08-23] MEDS ORDERED: SODIUM CHLORIDE 0.9% 1,000 ML IV STA ×7 (00:31→04:51)
[2023-08-23] MEDS ORDERED: VANCOMYCIN INJ 1 GM in SODIUM CHLORIDE 0.9% 500 ML IV STA (00:34)
--- NOTE | 2023-08-23 00:48 | ED Physician Documentation ---
History of Present Illness - Stated complaint Stated Complaint: NAUSEA - Chief complaint Chief Complaint: General - History obtained from History obtained from: Patient, Family - Additonal information Additional information: The patient returns to the emergency department after being seen here less than 24 hours ago for fever and upper respiratory symptoms. She had a full laboratory work-up performed at that time, which showed a normal white blood cell count, negative chest x-ray, normal urinalysis, and normal lactic acid level. She was found to have bandemia comparable to previous CBCs. She was mildly hypotensive with a systolic blood pressure of 98 on arrival, but responded well to fluids and as above, had a normal lactic acid level. Her respiratory PCR panel was negative. Blood cultures had been drawn and sent, and I was notified that her blood cultures were positive for Staph aureus. I did have nursing staff call the patient and sending her back to the emergency department immediately. The patient states she has been nauseated all day but has not vomited. states he is concerned because she normally has a lot of energy and she is just been laying around. He feels that she has been deteriorating throughout the course of the day and night. She has seemed a little bit less mentally clear than usual, agitated and confused. The patient thinks she may might feel better, she says, but then cannot finish explaining why she might feel better. She does not know if she has had a fever at home because she has not been able to measure. No other complaints at this time. PD PAST MEDICAL HISTORY - Past Medical History Cardiovascular: None Respiratory: None Neuro: None Endocrine/Autoimmune: None GI: Crohn's disease CHEMICAL WEIGHER: None : None HEENT: None Psych: None Musculoskeletal: None Derm: None - Past Surgical History Past Surgical History: Yes General: Bowel surgery /CHEMICAL WEIGHER: section Derm: Other - Present Medications Home Medications: Ambulatory Orders Medication Instructions Recorded Confirmed HYDROcod/ACETAM 5/325 [[place] 5/325] 1 ea PO Q6H PRN #12 tablet 08/22/23 08/23/23 Ondansetron Odt [Zofran] 4 mg TL Q6H PRN #10 tablet 08/22/23 08/23/23 - Allergies Allergies/Adverse Reactions: Allergies Allergy/AdvReac Type Severity Reaction Status Date / Time Penicillins Allergy Anaphylaxis Verified 08/23/23 00:41 - Social History Does the pt smoke?: No Smoking Status: Never smoker Does the pt drink ETOH?: Yes Does the pt have substance abuse?: No - Immunizations Immunizations are current?: No Immunizations: TDAP >10years/unknown - POLST Patient has POLST: No PD ED PE NORMAL - Vitals Vital signs reviewed: Yes - General General: No acute distress, Well developed/nourished, Other (Somewhat drowsy, ill-appearing patient.) - HEENT HEENT: Atraumatic, PERRL, EOMI, Moist mucous membranes - Neck Neck: Supple, no meningeal sign - Cardiac Cardiac: No murmur, Other (Tachycardic rate regular rhythm no murmurs) - Respiratory Respiratory: No respiratory distress, Clear bilaterally - Abdomen Abdomen: Soft, Non distended, Other (Tender upper abdomen, no rebound or guarding.) - Derm Derm: No rash, Other (Cool hands, somewhat sluggish cap refill, with purplish discoloration of hands.) - Extremities Extremities: No deformity, No edema - Neuro Neuro: Other (Drowsy but arouses to answer questions, articulates clearly. No gross deficits.) - Psych Psych: Normal mood, Normal affect Results - Vitals Vitals: Vital Signs - 24 hr 08/23/23 08/23/23 08/23/23 00:36 00:45 01:02 Temperature 37.5 C Heart Rate 119 H 119 H 125 H Respiratory 21 21 21 Rate Blood Pressure 82/54 L 100/89 H 73/60 L O2 Saturation 100 99 97 08/23/23 08/23/23 08/23/23 01:30 01:36 01:45 Temperature Heart Rate 120 H 122 H 125 H Respiratory 19 20 21 Rate Blood Pressure 140/104 H 84/64 L 70/34 L O2 Saturation 99 98 08/23/23 08/23/23 08/23/23 01:53 01:56 01:58 Temperature Heart Rate 114 H 115 H 117 H Respiratory 18 23 23 Rate Blood Pressure 70/34 L 78/49 L 66/49 L O2 Saturation 100 99 99 08/23/23 08/23/23 08/23/23 02:00 02:10 02:40 Temperature 39.2 C H 38.8 C H Heart Rate 114 H 108 H 114 H Respiratory 23 15 21 Rate Blood Pressure 87/57 L 85/50 L 124/88 H O2 Saturation 97 92 100 08/23/23 08/23/23 08/23/23 03:03 03:13 03:20 Temperature Heart Rate 109 H 113 H Respiratory 18 24 Rate Blood Pressure 145/117 H 147/132 H 75/54 L O2 Saturation 91 L 08/23/23 08/23/23 08/23/23 03:23 03:26 03:28 Temperature Heart Rate 112 H 113 H 110 H Respiratory 18 23 16 Rate Blood Pressure 82/52 L 74/39 L 58/46 L O2 Saturation 92 90 L 91 L 08/23/23 08/23/23 08/23/23 03:30 03:33 03:35 Temperature Heart Rate 101 H 110 H 112 H Respiratory 19 26 H 25 H Rate Blood Pressure 90/60 74/64 L O2 Saturation 98 08/23/23 08/23/23 08/23/23 03:39 03:40 03:50 Temperature 36.5 C Heart Rate 114 H 105 H Respiratory 24 17 Rate Blood Pressure 103/74 118/87 H 83/53 L O2 Saturation 93 08/23/23 08/23/23 08/23/23 04:00 04:12 04:22 Temperature 36.3 C L Heart Rate 107 H 110 H 112 H Respiratory 20 20 29 H Rate Blood Pressure 73/57 L 104/80 113/73 O2 Saturation 95 100 95 08/23/23 08/23/23 08/23/23 04:43 04:52 05:05 Temperature 36.2 C L 36.2 C L Heart Rate 108 H 106 H 108 H Respiratory 24 24 24 Rate Blood Pressure 130/95 H 91/72 84/68 L O2 Saturation 98 98 99 08/23/23 08/23/23 08/23/23 05:11 05:20 05:26 Temperature Heart Rate 108 H 104 H 103 H Respiratory Rate Blood Pressure 88/48 L 53/37 L 72/60 L O2 Saturation 99 100 100 08/23/23 08/23/23 08/23/23 05:31 05:40 05:50 Temperature 36.1 C L 36.1 C L Heart Rate 105 H 103 H 101 H Respiratory 19 19 Rate Blood Pressure 84/65 L 88/65 L 92/72 O2 Saturation 100 99 100 08/23/23 08/23/23 08/23/23 06:00 06:11 06:14 Temperature Heart Rate 101 H 104 H 104 H Respiratory 19 21 18 Rate Blood Pressure 108/69 153/98 H O2 Saturation 99 98 08/23/23 08/23/23 08/23/23 06:20 06:34 06:40 Temperature Heart Rate 104 H 106 H Respiratory 24 24 Rate Blood Pressure 139/101 H 107/81 H 108/94 H O2 Saturation 99 100 08/23/23 08/23/23 08/23/23 06:50 07:00 07:10 Temperature 35.7 C L Heart Rate 102 H 100 102 H Respiratory 25 H 29 H 20 Rate Blood Pressure 88/57 L 75/53 L 95/58 L O2 Saturation 96 94 100 08/23/23 08/23/23 08/23/23 07:30 08:00 08:30 Temperature 35.7 C L 35.7 C L 35.8 C L Heart Rate 102 H 97 101 H Respiratory 17 19 15 Rate Blood Pressure 104/80 98/57 L 84/64 L O2 Saturation 100 96 98 08/23/23 08/23/23 08/23/23 09:00 09:30 10:00 Temperature 35.7 C L 35.8 C L 35.9 C L Heart Rate 104 H 101 H 102 H Respiratory 19 18 18 Rate Blood Pressure 87/64 L 86/57 L 92/64 O2 Saturation 97 96 99 08/23/23 10:30 Temperature 35.8 C L Heart Rate 98 Respiratory 18 Rate Blood Pressure 126/82 H O2 Saturation 99 Oxygen O2 Source Room air - EKG (time done) 0109 EKG releavant findings:: EKG personally interpreted by author of this note. Relevant findings are: Rate: Rate (enter#) (129) Rhythm: Sinus tachycardia Hollis: Normal Intervals: Normal AK QRS: LVH (consider) Ischemia: Normal ST segments Compare to prior EKG: Old EKG unavailable Computer interpretation: Agree with computer - Labs Labs: Laboratory Tests 08/23/23 08/23/23 08/23/23 00:45 00:45 01:18 WBC 4.1 L RBC 4.14 L Hgb 11.7 L Hct 37.1 MCV 89.6 MCH 28.3 MCHC 31.5 L RDW 14.3 Plt Count 216 MPV 10.0 Neut # (Auto) Not Reportable Lymph # (Auto) Not Reportable [place] # (Auto) Not Reportable Eos # (Auto) Not Reportable Baso # (Auto) Not Reportable Absolute Nucleated RBC Not Reportable Total Counted 100 Band Neuts % (Manual) 31 H Abnorm Lymph % (Manual) 0 Metamyelocytes % 2 H Myelocytes % Nucleated RBC % Not Reportable Neutrophils # (Manual) 3.5 Lymphocytes # (Manual) 0.2 L Monocytes # (Manual) 0.1 Eosinophils # (Manual) 0.2 Basophils # (Manual) 0.0 Differential Comment MANUAL DIFFERENTIAL WBC Morphology 1+ TOXIC GRANULATION Platelet Estimate NORMAL (130-450,000) Platelet Morphology NORMAL APPEARANCE RBC Morph Micro Appear NORMAL APPEARANCE Sodium 129 L Potassium 5.6 H Chloride 104 Carbon Dioxide 14 L Anion Gap 11.0 BUN 35 H Creatinine 2.8 H Estimated GFR (MDRD) 17 L Glucose 73 L Lactic Acid 3.5 H* Calcium 8.1 L Magnesium Total Bilirubin 2.6 H AST 51 H ALT 72 H Alkaline Phosphatase 126 H Total Protein 5.5 L Albumin 3.0 L Globulin 2.5 Albumin/Globulin Ratio 1.2 Lipase < 10 L Urine Color Urine Clarity Urine pH Ur Specific Stanton Urine Protein Urine Glucose (UA) Urine Ketones Urine Occult Blood Urine Nitrite Urine Bilirubin Urine Urobilinogen Ur Leukocyte Esterase Urine RBC Urine WBC Ur Squamous Epith Cells Urine Bacteria Urine Casts Ur Microscopic Review Urine Culture Comments 08/23/23 08/23/23 08/23/23 01:50 08:15 08:15 WBC RBC Hgb Hct MCV MCH MCHC RDW Plt Count MPV Neut # (Auto) Lymph # (Auto) [place] # (Auto) Eos # (Auto) Baso # (Auto) Absolute Nucleated RBC Total Counted Band Neuts % (Manual) Abnorm Lymph % (Manual) Metamyelocytes % Myelocytes % Nucleated RBC % Neutrophils # (Manual) Lymphocytes # (Manual) Monocytes # (Manual) Eosinophils # (Manual) Basophils # (Manual) Differential Comment WBC Morphology Platelet Estimate Platelet Morphology RBC Morph Micro Appear Sodium 134 L Potassium 4.6 H Chloride 116 H Carbon Dioxide 11 L* Anion Gap 7.0 BUN 31 H Creatinine 2.1 H Estimated GFR (MDRD) 24 L Glucose 68 L Lactic Acid 1.8 Calcium 5.9 L* Magnesium 0.7 L* Total Bilirubin AST ALT Alkaline Phosphatase Total Protein Albumin Globulin Albumin/Globulin Ratio Lipase Urine Color DARK YELLOW Urine Clarity HAZY Urine pH 5.5 Ur Specific Stanton 1.020 Urine Protein 30 H Urine Glucose (UA) NEGATIVE Urine Ketones NEGATIVE Urine Occult Blood NEGATIVE Urine Nitrite NEGATIVE Urine Bilirubin MODERATE H Urine Urobilinogen 0.2 (NORMAL) Ur Leukocyte Esterase NEGATIVE Urine RBC 0-5 Urine WBC 0-3 Ur Squamous Epith Cells FEW Squamous Urine Bacteria Rare Urine Casts 0-2 WBC Casts Ur Microscopic Review INDICATED Urine Culture Comments NOT INDICATED 08/23/23 08/23/23 08/23/23 08:15 09:30 09:30 WBC 1.9 L* 2.1 L RBC 3.57 L 3.70 L Hgb 10.2 L 10.6 L Hct 31.3 L 32.5 L MCV 87.7 87.8 MCH 28.6 28.6 MCHC 32.6 32.6 RDW 14.3 14.4 Plt Count 145 143 MPV 10.4 10.3 Neut # (Auto) Not Reportable Not Reportable Lymph # (Auto) Not Reportable Not Reportable [place] # (Auto) Not Reportable Not Reportable Eos # (Auto) Not Reportable Not Reportable Baso # (Auto) Not Reportable Not Reportable Absolute Nucleated RBC Not Reportable Not Reportable Total Counted 100 100 Band Neuts % (Manual) 24 H 31 H Abnorm Lymph % (Manual) 0 0 Metamyelocytes % 2 H 2 H Myelocytes % 8 H 2 H Nucleated RBC % Not Reportable Not Reportable Neutrophils # (Manual) 1.5 1.9 Lymphocytes # (Manual) 0.0 L 0.0 L Monocytes # (Manual) 0.1 0.0 Eosinophils # (Manual) 0.1 0.1 Basophils # (Manual) 0.0 0.0 Differential Comment MANUAL DIFFERENTIAL MANUAL DIFFERENTIAL WBC Morphology Platelet Estimate Platelet Morphology NORMAL APPEARANCE NORMAL APPEARANCE RBC Morph Micro Appear 2+ ANISOCYTOSIS 1+ ANISOCYTOSIS Sodium 134 L Potassium 4.7 H Chloride 115 H Carbon Dioxide 11 L* Anion Gap 8.0 BUN 32 H Creatinine 2.1 H Estimated GFR (MDRD) 24 L Glucose 64 L Lactic Acid Calcium 6.0 L* Magnesium 0.7 L* Total Bilirubin AST ALT Alkaline Phosphatase Total Protein Albumin Globulin Albumin/Globulin Ratio Lipase Urine Color Urine Clarity Urine pH Ur Specific Stanton Urine Protein Urine Glucose (UA) Urine Ketones Urine Occult Blood Urine Nitrite Urine Bilirubin Urine Urobilinogen Ur Leukocyte Esterase Urine RBC Urine WBC Ur Squamous Epith Cells Urine Bacteria Urine Casts Ur Microscopic Review Urine Culture Comments 08/23/23 09:30 WBC RBC Hgb Hct MCV MCH MCHC RDW Plt Count MPV Neut # (Auto) Lymph # (Auto) [place] # (Auto) Eos # (Auto) Baso # (Auto) Absolute Nucleated RBC Total Counted Band Neuts % (Manual) Abnorm Lymph % (Manual) Metamyelocytes % Myelocytes % Nucleated RBC % Neutrophils # (Manual) Lymphocytes # (Manual) Monocytes # (Manual) Eosinophils # (Manual) Basophils # (Manual) Differential Comment WBC Morphology Platelet Estimate Platelet Morphology RBC Morph Micro Appear Sodium Potassium Chloride Carbon Dioxide Anion Gap BUN Creatinine Estimated GFR (MDRD) Glucose Lactic Acid < 0.2 L Calcium Magnesium Total Bilirubin AST ALT Alkaline Phosphatase Total Protein Albumin Globulin Albumin/Globulin Ratio Lipase Urine Color Urine Clarity Urine pH Ur Specific Stanton Urine Protein Urine Glucose (UA) Urine Ketones Urine Occult Blood Urine Nitrite Urine Bilirubin Urine Urobilinogen Ur Leukocyte Esterase Urine RBC Urine WBC Ur Squamous Epith Cells Urine Bacteria Urine Casts Ur Microscopic Review Urine Culture Comments - Rads (name of study) CXR Relevant Findings:: Final report received, See rad report (No distinctly infect ious findings.) CT abd/pelvis Relevant Findings:: Final report received, See rad report (enteritis, bilateral perinephric stranding, nonspecific. No distinctly infectious findings.) Procedures - Central Line - Major Central Line Preparation: Unable to obtain consent, Sterile prep and drape Central line location: Right Femoral Central line type: Triple lumen Central line aftercare: Chlorhexidine disc placed, Secured, No complications, Pt tolerated well PD Medical Decision Making - ED course Complexity details: reviewed old records, reviewed results, re-evaluated patient, considered differential, d/w patient, d/w family ED course: The patient was evaluated immediately upon arrival in the emergency department. She was hypotensive with a systolic pressure in the low 80s and was tachycardic despite a normal temperature measured in triage. I was concerned about development of sepsis, given the patient's blood culture results from earlier. I immediately ordered Rocephin and vancomycin for the patient. Orders for repeat CBC, lactic acid level, and ER abdominal panel were also entered. The patient was started on a normal saline bolus, and ultimately, received 5 full liters in the emergency department. She was on liters 6 and 7 at the time of this dictation. Shortly after being brought to her room in the emergency dept, she was found to have developed a fever, with oral temperature of 39.3. She was given Tylenol and Toradol for this. The patient was found to have a slightly low white blood cell count at 4.1 (mildly decreased from yesterday's level), lactic acid level significantly elevated above her last level at 3.5, and kidney functions worsened since yesterday, with a BUN of 35 and a creatinine of 2.8. The patient had a Ocasio catheter placed and I did also place a triple-lumen catheter, secondary to the patient having extremely poor peripheral access. The patient was quite agitated and anxious upon arrival and was moving about quite a bit in the bed. Because of her persistent hypotension, I could not sedate her, and I was concerned that if I attempted a central line in the subclavian or Internal jugular veins, that the patient may end up with a pneumothorax due to the amount of movement. As such, I opted to place a femoral catheter instead. This was done as above without complication. The patient had highly fluctuating blood pressures with runs of normotensive readings and runs of hypotensive readings. She was started after a couple of liters of IV fluids Levophed, due to concern over persistent hypotension. This was titrated up and down throughout the patient's stay, depending on her blood pressures. Arterial line placement was attempted, but unsuccessful. CT scan of the abdomen and pelvis was obtained, secondary to the patient's elevated LFTs, abdominal pain, fever, and sepsis. This showed some stranding around the kidneys but no obstructing calculus. Bibasilar interstitial disease was noted., As were findings consistent with small bowel enteritis. Chest x-ray was unremarkable, as was the urinalysis. Once I got the work-up results back, I did place a consult for the telehospitalist for ICU admission at approximately 420 in the morning. I had not received a return call after 1 hour so we did call the telehospitalist service and were told that they had a high volume of patients and had relief coming in who would be giving a call back soon. However, I did not receive a call back until nearly an hour after that at just past 6:00. I discussed the case with Dr. Brower, who did acknowledge the pt's need of admission, but seemed to indicate that he would pass the admission off to the day hospitalist. As at this point in time, Dr. Brower has not written admission orders, but for now, I anticipate the patient will be admitted to the intensive care unit as planned. Overall, she has improved in her clinical appearance though she does still appear significantly ill. She has had very slow urine output with a total of 150 cc of dark yellow urine in her Ocasio since arrival. However, despite the aggressive fluid hydration she has received parenterally in the emergency department, she has not developed pulmonary edema, hypoxia, or rales on exam. She is not swelling and there is no urine in her bladder on scanning. We will continue to hydrate for now and patient will receive pressors as needed. She is signed out to Dr. aC at change of shift for further care in the emergency department until she is transferred to the ICU. - Critical Care Time(min): 150 Comments: Critical care time was necessary, due to high probability of imminent decline and , secondary to severe septic shock and S. aureus bacteremia. Time Includes: Direct patient care, Review records, Reassess patient, Document care, Coordinate care, Medical consult, Family consult for tx dec, See progress note Data interpretation: Labs, Pulse ox, CXR, Cardiac output, See progress note Procedures excluded from critical care time: Central IV, EKG Departure - Departure Disposition: 66 [facility] DC/Xfer Clinical Impression: Staphylococcus aureus bacteremia with sepsis Condition: Critical Discharge Date/Time: 08/23/23 12:07
[2023-08-23] MEDS ORDERED: ONDANSETRON 4 MG/2 ML VIAL IVP STA (00:53)
[2023-08-23] MEDS ORDERED: ACETAMINOPHEN 325 MG TABLET PO STA ×2 (00:53→07:34)
[2023-08-23] MEDS ORDERED: cefTRIAXone 2 GM VIAL ONE (00:53)
[2023-08-23] MEDS ORDERED: KETOROLAC 30 MG/ML VIAL IVP STA ×2 (00:55→04:33)
[2023-08-23 00:59] LABS: BASOPHILS % (AUTO) 0.7 %; EOSINOPHILS % (AUTO) 2.7 %; HCT - HEMATOCRIT 37.1 % (37.0-47.0); HGB - HEMOGLOBIN 11.7 g/dL (12.0-16.0); MEAN CORPUSCULAR HEMOGLOBIN 28.3 pg (27.0-31.0); MEAN CORPUSCULAR HGB CONC 31.5 g/dL (32.0-36.0); MEAN CORPUSCULAR VOLUME 89.6 fL (81.0-99.0); MONOCYTES % (AUTO) 4.6 %; PLT - PLATELET COUNT 216 10^3/uL (130-450); RED BLOOD COUNT 4.14 10^6/uL (4.20-5.40); RED CELL DISTRIBUTION WIDTH 14.3 % (12.0-15.0); WHITE BLOOD COUNT 4.1 x10^3/uL (4.8-10.8)
[2023-08-23 01:05] LABS: ABNORMAL LYMPHS % (MANUAL) 0 %
[2023-08-23] MEDS ORDERED: VANCOMYCIN 1 GM VIAL ONE (01:08)
[2023-08-23] MEDS ORDERED: ONDANSETRON 4 MG/2 ML VIAL ONE (01:09)
[2023-08-23 01:24] LABS: BAND NEUTROPHILS % (MANUAL) 31 %; DIFFERENTIAL COMMENT MANUAL DIFFERENTIAL; EOSINOPHILS # (MANUAL) 0.2 10^3/uL (0-0.7); LYMPHOCYTES # (MANUAL) 0.2 10^3/uL (1.5-3.5); LYMPHOCYTES % (MANUAL) 5 %; METAMYELOCYTES % (MANUAL) 2 %; MONOCYTES # (MANUAL) 0.1 10^3/uL (0.0-1.0); NEUTROPHILS # (MANUAL) 3.5 10^3/uL (1.5-6.6); PLATELET ESTIMATE, MANUAL NORMAL (130-450,000) (NORMAL); PLATELET MORPHOLOGY NORMAL APPEARANCE (NORMAL); RBC MORPHOLOGY (MULTIPLE) NORMAL APPEARANCE (NORMAL); WBC MORPHOLOGY (MULTIPLE) 1+ TOXIC GRANULATION (NORMAL)
[2023-08-23 01:36] LABS: ALBUMIN/GLOBULIN RATIO 1.2 (1.0-2.2); ALKALINE PHOSPHATASE 126 IU/L (42-121); ALT ALANINE AMINOTRANSFERASE 72 IU/L (10-60); AST ASPARTATE AMINOTRANSFERASE 51 IU/L (10-42); BILIRUBIN,TOTAL 2.6 mg/dL (0.2-1.0); BUN - BLOOD UREA NITROGEN 35 mg/dL (6-20); CALCIUM 8.1 mg/dL (8.5-10.3); CARBON DIOXIDE - CO2 14 mmol/L (21-32); CHLORIDE 104 mmol/L (101-111); CREATININE 2.8 mg/dL (0.6-1.3); GFR - MDRD 17 (>89); GLUCOSE 73 mg/dL (74-104); POTASSIUM 5.6 mmol/L (3.5-4.5); SODIUM 129 mmol/L (135-145); TOTAL PROTEIN 5.5 g/dL (6.4-8.9)
[2023-08-23 01:39] LABS: LIPASE < 10 U/L (11-82)
[2023-08-23 02:03] LABS: GLUCOSE, URINE (UA) NEGATIVE (NEGATIVE); KETONES,URINE (UA) NEGATIVE (NEGATIVE); LEUKOCYTE ESTERASE, URINE NEGATIVE (NEGATIVE); NITRITE,URINE NEGATIVE (NEGATIVE); OCCULT BLOOD,URINE NEGATIVE (NEGATIVE); PH,URINE 5.5 PH (5.0-7.5); PROTEIN,URINE 30 mg/dL (NEGATIVE); UROBILINOGEN,URINE 0.2 (NORMAL) E.U./dL (NORMAL)
[2023-08-23 02:14] LABS: BACTERIA,URINE Rare /HPF (None Seen); BILIRUBIN,URINE MODERATE (NEGATIVE); CLARITY,URINE HAZY (CLEAR); ICTOTEST,URINE POSITIVE; RBC,URINE 0-5 /HPF (0-5); SQUAMOUS EPITHELIAL CELL,UR FEW Squamous (<= Few); WBC,URINE 0-3 /HPF (0-5)
--- NOTE | 2023-08-23 02:18 | XRAY Report ---
PROCEDURE: Chest 1 View X-Ray INDICATIONS: chest pain TECHNIQUE: One view of the chest was acquired. COMPARISON: 02/22/2022 FINDINGS: Surgical changes and devices: Overlying monitoring wires. Lungs and pleura: Asymmetric right hemidiaphragm elevation. Diffuse thickening of the interstitial m arkings, chronic. There is probably compressive atelectasis in the right infrahilar region. No dense consolidation, significant effusion, or pneumothorax. Mediastinum: Mediastinal contours appear normal. Heart size is normal. Bones and chest wall: No suspicious bony lesions. Overlying soft tissues appear unremarkable. IMPRESSION: 1. Since the prior study, there is been worsening of the chronic right hemidiaphragm elevation. This may indicate underlying liver enlargement or possibly right hemidiaphragm paralysis. 2. There is likely right base atelectasis and underlying pneumonia cannot be entirely excluded. 3. Diffuse thickening of the interstitial markings is chronic and may indicate interstitial lung dise ase. Reviewed by: Tasha Kirk MD on 08/23/2023 2:17 AM PDT Approved by: Tasha Kirk MD on 08/23/2023 2:17 AM PDT Station ID: [id number]
[2023-08-23] MEDS: NOREPINEPHRINE/0.9 % NS 8 MG/250 ML BAG IV SCH ×3 (02:31→20:41)
[2023-08-23] MEDS ORDERED: fentaNYL 100 MCG/2 ML VIAL IVP STA ×2 (07:33→11:38)
[2023-08-23] MEDS ORDERED: DEXAMETHASONE 10 MG/ML VIAL IVP STA (07:35)
--- NOTE | 2023-08-23 07:45 | ED Physician Documentation ---
ED Addendum - Addendum Addendum: 08/23/23 07:[address] Cedeno the daytime hospitalist at 740. She had a small note from sound overnight physician that briefly stated patient and the ER on fluids and concern for sepsis. I gave report of the patient to the hospitalist and Dr. Cedeno will write orders. No orders have been written for admission as yet by the overnight providers.
[2023-08-23 08:23] LABS: BASOPHILS % (AUTO) 0.5 %; EOSINOPHILS % (AUTO) 4.3 %; HCT - HEMATOCRIT 31.3 % (37.0-47.0); HGB - HEMOGLOBIN 10.2 g/dL (12.0-16.0); LYMPHOCYTES % (AUTO) 2.7 %; MEAN CORPUSCULAR HEMOGLOBIN 28.6 pg (27.0-31.0); MEAN CORPUSCULAR HGB CONC 32.6 g/dL (32.0-36.0); MEAN CORPUSCULAR VOLUME 87.7 fL (81.0-99.0); MEAN PLATELET VOLUME 10.4 fL (7.9-10.8); MONOCYTES % (AUTO) 3.2 %; PLT - PLATELET COUNT 145 10^3/uL (130-450); RED BLOOD COUNT 3.57 10^6/uL (4.20-5.40); RED CELL DISTRIBUTION WIDTH 14.3 % (12.0-15.0)
[2023-08-23 08:32] LABS: WHITE BLOOD COUNT 1.9 x10^3/uL (4.8-10.8)
[2023-08-23 08:33] LABS: ABNORMAL LYMPHS % (MANUAL) 0 %
[2023-08-23 08:46] LABS: CALCIUM 5.9 mg/dL (8.5-10.3); CREATININE 2.1 mg/dL (0.6-1.3); MAGNESIUM 0.7 mg/dL (1.7-2.3); POTASSIUM 4.6 mmol/L (3.5-4.5)
[2023-08-23 08:56] LABS: BAND NEUTROPHILS % (MANUAL) 24 %; EOSINOPHILS # (MANUAL) 0.1 10^3/uL (0-0.7); LYMPHOCYTES % (MANUAL) 2 %; METAMYELOCYTES % (MANUAL) 2 %; MONOCYTES # (MANUAL) 0.1 10^3/uL (0.0-1.0); MYELOCYTES % (MANUAL) 8 %; NEUTROPHILS # (MANUAL) 1.5 10^3/uL (1.5-6.6)
[2023-08-23 08:57] LABS: DIFFERENTIAL COMMENT MANUAL DIFFERENTIAL; PLATELET MORPHOLOGY NORMAL APPEARANCE (NORMAL); RBC MORPHOLOGY (MULTIPLE) 2+ ANISOCYTOSIS (NORMAL)
[2023-08-23] MEDS ORDERED: MAGNESIUM SULFATE 2 GRAM 2 GM/50 ML BAG IV ONE ×3 (09:11→18:35)
[2023-08-23] MEDS ORDERED: CALCIUM GLUC 1,000MG/50ML-NACL 1,000 MG/50 ML BAG IV STA (09:11)
[2023-08-23 09:38] LABS: EOSINOPHILS % (AUTO) 7.7 %; HCT - HEMATOCRIT 32.5 % (37.0-47.0); HGB - HEMOGLOBIN 10.6 g/dL (12.0-16.0); LYMPHOCYTES % (AUTO) 2.9 %; MEAN CORPUSCULAR HEMOGLOBIN 28.6 pg (27.0-31.0); MEAN CORPUSCULAR HGB CONC 32.6 g/dL (32.0-36.0); MEAN CORPUSCULAR VOLUME 87.8 fL (81.0-99.0); MEAN PLATELET VOLUME 10.3 fL (7.9-10.8); MONOCYTES % (AUTO) 2.9 %; NEUTROPHILS % (AUTO) 74.9 %; PLT - PLATELET COUNT 143 10^3/uL (130-450); RED CELL DISTRIBUTION WIDTH 14.4 % (12.0-15.0); WHITE BLOOD COUNT 2.1 x10^3/uL (4.8-10.8)
[2023-08-23 09:41] LABS: ABNORMAL LYMPHS % (MANUAL) 0 %; LYMPHOCYTES % (MANUAL) 0 %
--- NOTE | 2023-08-23 09:43 | CT Report ---
PROCEDURE: ABDOMEN/PELVIS WO INDICATIONS: upper abd pain, sepsis,elev LFTs, US not available TECHNIQUE: A CT scan of the abdomen and pelvis was performed without the use of intravenous contrast. Images we re recorded and evaluated at appropriate window settings. Reformats: coronal and sagittal. For radiat ion dose reduction, the following was used: automated exposure control, adjustment of mA and/or kV ac cording to patient size. COMPARISON: CT abdomen and pelvis, 06/29/2023. CT chest, 07/10/2020 FINDINGS: Image quality: Excellent. Lung bases and heart: Bibasilar atelectasis. There is a 2.1 cm soft tissue density in the left breast (series 2 image 11), which was present on 07/10/2020 and appears unchanged in size. Liver: No solid mass. Gallbladder and biliary tree: No gallstones. No biliary dilation. Spleen: No splenomegaly. Pancreas: No pancreatic ductal dilation. Adrenals: No adrenal nodule. Kidneys and ureters: Mild perinephric stranding bilaterally. No hydronephrosis. No renal cystic lesio n which requires follow up. No solid mass. Bowel and peritoneum: Postsurgical changes with colectomy and a right lower quadrant ileostomy. Stoma ch is mildly distended with an air-fluid level. There is mild distention of proximal small intestine measure up to 2.9 cm in caliber. No transitional point to suggest small bowel obstruction. No patholo gic free fluid. Lymph nodes: No central or retroperitoneal adenopathy. Vessels: No infrarenal aortic aneurysm. PELVIS Reproductive organs: Unremarkable. Bladder: There is contracted with a Ocasio catheter. Pelvic lymph nodes: No pelvic adenopathy by size criteria. Bones: No aggressive osseous abnormality. Other: No significant ventral or inguinal hernia. IMPRESSION: 1. Mild perinephric stranding bilaterally. No renal stones or hydronephrosis. The CT findings nonspec ific. Please correlate with urinalysis. 2. Postsurgical changes with colectomy and a right lower quadrant ileostomy. Fluid-filled stomach and small intestine small bowel are noted. No findings to suggest bowel obstruction. Consider enteritis. 3. Bibasilar atelectasis. 4. A 2.1 cm soft tissue nodule in the left breast, unchanged since 07/10/2020. Recommend correlation w ith findings on breast exam and mammography. No significant discrepancy with the preliminary interpretation. Reviewed by: Monae Gonzales MD on 08/23/2023 9:42 AM PDT Approved by: Monae Gonzales MD on 08/23/2023 9:42 AM PDT Station ID: [id number]
[2023-08-23 10:03] LABS: BAND NEUTROPHILS % (MANUAL) 31 %; DIFFERENTIAL COMMENT MANUAL DIFFERENTIAL; EOSINOPHILS # (MANUAL) 0.1 10^3/uL (0-0.7); METAMYELOCYTES % (MANUAL) 2 %; MYELOCYTES % (MANUAL) 2 %; NEUTROPHILS # (MANUAL) 1.9 10^3/uL (1.5-6.6); PLATELET MORPHOLOGY NORMAL APPEARANCE (NORMAL); RBC MORPHOLOGY (MULTIPLE) 1+ ANISOCYTOSIS (NORMAL)
[2023-08-23 10:04] LABS: CREATININE 2.1 mg/dL (0.6-1.3); MAGNESIUM 0.7 mg/dL (1.7-2.3); POTASSIUM 4.7 mmol/L (3.5-4.5)
[2023-08-23] MEDS ORDERED: PROCHLORPERAZINE 10 MG/2 ML VIAL IVP PRN (10:53)
[2023-08-23] MEDS ORDERED: ONDANSETRON ODT 4 MG TABLET TL PRN (10:53)
[2023-08-23] MEDS ORDERED: DEXTROSE 10% 250 ML IV STA (11:34)
[2023-08-23] MEDS: ENOXAPARIN 40 MG/0.4 ML SYRINGE SUBQ SCH (11:38)
[2023-08-23] MEDS: FAMOTIDINE 20 MG/2 ML VIAL IVP SCH ×2 (11:38→20:59)
[2023-08-23] MEDS: SODIUM CHLORIDE FLUSH 0.9% 10 ML SYRINGE IVP PRN ×2 (12:40→17:40)
[2023-08-23 12:52] LABS: CALCIUM, IONIZED 1.01 mmol/L (1.15-1.33)
[2023-08-23 12:53] LABS: VBG PH 7.069 (7.31-7.41)
[2023-08-23] MEDS: FUROSEMIDE 40 MG/4 ML VIAL IVP SCH (12:58)
[2023-08-23 13:11] LABS: MAGNESIUM 1.4 mg/dL (1.7-2.3); PHOSPHORUS 3.6 mg/dL (2.5-5.0)
[2023-08-23 13:30] LABS: CALCIUM 6.5 mg/dL (8.5-10.3); CREATININE 2.1 mg/dL (0.6-1.3); POTASSIUM 4.3 mmol/L (3.5-4.5)
--- NOTE | 2023-08-23 13:32 | HISTORY & PHYSICAL EXAMINATION ---
Chief Complaint - Chief Complaint Chief Complaint: fever, chill, unwell feeling, cough History of Present Illness - Admitted From Admitted From:: Home - History Obtained From Records Reviewed: Yes History obtained from: patient and , ED sign out - History of Present Illness HPI Comment/Other: A 63 years old female with history of UC Humira. History of staph Monika bacteremia in 2014, presented to the ED with complaining of fever, chill and a cough. Patient was seen in the ER on 08/22/2023, had a fall laboratory work-up showed normal WBC, negative chest x-ray, normal urine analysis and a normal lactic acid level. With chronic bandemia similar to her baseline. She was hypotensive with systolic blood pressure of 98 on arrival, but improved well with IV fluid. Her respiratory PCR panel was negative blood culture was obtained. Patient was sent home after improvement of her blood pressure. Patient was called back back to the emergency room again on 08/23/2023 midnight due to positive blood culture report shows staph aureus on both blood samples. Patient reports she has been nauseated, but no vomiting. Also feels very weak, less coherent. Patient reports feeling cold and unwell, otherwise she reports she feels okay. Denies headache, chest pain, no abdominal pain no diarrhea or bloody stool. In the ED, patient is tachycardic with heart rate 110, blood pressure 86/56, afebrile, on room air. Blood pressure has no improvement on IV fluid, patient was put on Levophed for blood pressure support. Patient was started on IV Vanco in the ED. Labs shows significant with neutropenia WBC 2.1, anemic hemoglobin 10.6. Bands 31% as baseline. Platelet 143, bicarb 11, anion gap 8. BUN 32, creatinine 2.1. Glucose 64. Lactic acid was 3.5, improved to less than 0.2. Calcium 6, magnesium 0.7. Patient is admitted to ICU for further management History - Past Medical History Cardiovascular: reports: None Respiratory: reports: None Neuro: reports: None Endocrine/Autoimmune: reports: None GI: reports: Crohn's disease ACTING PROFESSOR: reports: None : reports: None HEENT: reports: None Psych: reports: None Musculoskeletal: reports: None Derm: reports: None MRSA Hx?: No - Past Surgical History General: reports: Bowel surgery /ACTING PROFESSOR: reports: section Derm: reports: Other - POLST Patient has POLST: No Meds/Allgy - Home Medications Home Medications: Ambulatory Orders Medication Instructions Recorded Confirmed HYDROcod/ACETAM 5/325 [Louisa 5/325] 1 ea PO Q6H PRN #12 tablet 08/22/23 08/23/23 Ondansetron Odt [Zofran] 4 mg TL Q6H PRN #10 tablet 08/22/23 08/23/23 - Allergies Allergies/Adverse Reactions: Allergies Allergy/AdvReac Type Severity Reaction Status Date / Time Penicillins Allergy Anaphylaxis Verified 08/23/23 00:41 Review of Systems - Constitutional Constitutional: reports: Fatigue, Fever, Chills, Malaise - Eyes Eyes: denies: Pain, Blurred vision, Vision loss - Ears, Nose & Throat Ears, Nose & Throat: denies: Nasal pain, Nasal discharge, Nasal obstruction, Sore throat - Cardiovascular Cariovascular: denies: Palpitations, Chest pain - Respiratory Respiratory: reports: Cough. denies: Wheezing, Hemoptysis, Orthopnea - Gastrointestinal Gastrointestinal: reports: Nausea. denies: Abdominal pain, Vomiting - Genitourinary Genitourinary: denies: Dysuria, Flank pain - Musculoskeletal Musculoskeletal: denies: Muscle pain, Joint pain - Neurological Neurological: reports: General weakness. denies: Focal weakness - Endocrine Endocrine: denies: Polyuria, Polydypsia, Polyphagia - Hematologic/Lymphatic Hematologic/Lymphatic: denies: Blood clots Prior Level of Functionality: Independent ADLs Exam - Vital Signs Reviewed Vital Signs: Yes Vital Signs: Vital Signs x48h Temp Pulse Resp BP Pulse Ox 08/23/23 11:00 35.8 C L 98 19 99/66 99 08/23/23 10:30 35.8 C L 98 18 126/82 H 99 08/23/23 10:00 35.9 C L 102 H 18 92/64 99 08/23/23 09:30 35.8 C L 101 H 18 86/57 L 96 08/23/23 09:00 35.7 C L 104 H 19 87/64 L 97 08/23/23 08:30 35.8 C L 101 H 15 84/64 L 98 08/23/23 08:00 35.7 C L 97 19 98/57 L 96 08/23/23 07:30 35.7 C L 102 H 17 104/80 100 08/23/23 07:10 35.7 C L 102 H 20 95/58 L 100 08/23/23 07:00 100 29 H 75/53 L 94 08/23/23 06:50 102 H 25 H 88/57 L 96 08/23/23 06:40 106 H 24 108/94 H 100 08/23/23 06:34 104 H 24 107/81 H 99 08/23/23 06:20 139/101 H 08/23/23 06:14 104 H 18 153/98 H 08/23/23 06:11 104 H 21 98 08/23/23 06:00 101 H 19 108/69 99 08/23/23 05:50 36.1 C L 101 H 19 92/72 100 08/23/23 05:40 36.1 C L 103 H 19 88/65 L 99 08/23/23 05:31 105 H 84/65 L 100 - Physical Exam General Appearance: positive: Alert, Mild distress, Other (Sign of fluid overload) Eyes Bilateral: positive: Other (Watery conjunctiva) ENT: positive: ENT inspection nml Neck: positive: Nml inspection, No JVD Respiratory: positive: Chest non-tender, No respiratory distress, Rales. negative: Wheezes Cardiovascular: positive: Regular rate & rhythm, No murmur Abdomen: positive: Non-tender, No distention Skin: positive: Other (Cold extremities). negative: Diaphoresis Extremities: positive: Full ROM Neurologic/Psychiatric: positive: Oriented x3 Sepsis Event Note (H) - Evaluation Current Stage of Sepsis: Septic shock Possible source of Sepsis: positive: Other Sepsis Associated Organ Dysfunction: Transient encephalopathy Conclusion/Plan - Problem List (1) Staphylococcus aureus bacteremia with sepsis Conclusion/Plan: Critical ICU level care Continue with IV vancomycin, pharmacy consult for dosing Continue with Levophed, weaning down if possible Correct electrolytes abnormality, correct metabolic acidosis Oxygen treatment as needed Monitoring volume status (2) Metabolic acidosis Conclusion/Plan: Severe, Venous pH 7.06, Bicarb 11, Anion gap 9 Continue correct septic shock Give bicarb drip 150 mEq Recheck pH in 4 hours (3) Disorder of electrolytes Conclusion/Plan: Severe next hypomagnesia, hypocalcemia On ICU protocol for electrolytes correction High risk for cardiac arrhythmia Telemetry monitoring (4) Fluid overload Conclusion/Plan: Weight gain of 15 pounds in the past 2 days, secondary to the received IV fluid for septic shock BNP 500s Now on pressor support, can give Lasix to remove the third space fluid overload Monitoring fluid status closely (5) Neutropenia Conclusion/Plan: Sign of severe sepsis Can related to chronic immune suppressant condition for using Humira for her UC Chronic bandemia High risk for severe infection, intractable bacteremia Continue aggressively treating septic shock Monitoring CBC (6) Anemia Conclusion/Plan: Chronic, worsening due to acute infection Hemoglobin 11 at time of admission, worsened to hemoglobin of 10, can be part of the dilutional status No indication for transfusion at this point If hemoglobin less than 8, will need blood transfusion - Lab Results Fish Bones: 08/23/23 09:30 08/23/23 09:30
[2023-08-23] MEDS ORDERED: CALCIUM GLUCONATE IN NS 0.9% 2,000 MG/100 ML BAG IV ONE ×2 (14:04→18:34)
[2023-08-23] MEDS: oxyCODONE 5 MG TABLET PO PRN ×2 (14:48→18:49)
[2023-08-23] MEDS: SODIUM BICARBONATE 150 MEQ in DEXTROSE 5% 1,000 ML IV SCH (15:33)
[2023-08-23 17:55] LABS: CALCIUM, IONIZED 1.09 mmol/L (1.15-1.33)
[2023-08-23 17:57] LABS: HCT - HEMATOCRIT 34.6 % (37.0-47.0); HGB - HEMOGLOBIN 11.3 g/dL (12.0-16.0); MEAN CORPUSCULAR HEMOGLOBIN 28.3 pg (27.0-31.0); MEAN CORPUSCULAR HGB CONC 32.7 g/dL (32.0-36.0); MEAN CORPUSCULAR VOLUME 86.7 fL (81.0-99.0); MEAN PLATELET VOLUME 10.4 fL (7.9-10.8); RED BLOOD COUNT 3.99 10^6/uL (4.20-5.40); RED CELL DISTRIBUTION WIDTH 14.2 % (12.0-15.0); VBG PH 7.136 (7.31-7.41)
[2023-08-23 18:09] LABS: CALCIUM 7.4 mg/dL (8.5-10.3); CREATININE 2.2 mg/dL (0.6-1.3); MAGNESIUM 1.6 mg/dL (1.7-2.3); POTASSIUM 4.2 mmol/L (3.5-4.5)
[2023-08-23] MEDS: MIN OIL/DIMETHICON/COCONUT OIL 92 GM TUBE TOP PRN ×2 (18:35→21:01)
[2023-08-23] MEDS: SODIUM CHLORIDE FLUSH 0.9% 10 ML SYRINGE IVP SCH ×3 (18:35→22:22)
[2023-08-23] MEDS ORDERED: FUROSEMIDE 40 MG/4 ML VIAL IVP ONE (19:00)
[2023-08-23] MEDS: ZINC OXIDE 20% OINT 30 GM TUBE TOP PRN (22:21)
[2023-08-23] MEDS: traZODone 50 MG TABLET PO PRN (22:21)
[2023-08-23] MEDS: BENZOCAINE/MENTHOL LOZENGE MM PRN (22:21)
[2023-08-24] MEDS: oxyCODONE 5 MG TABLET PO PRN ×4 (00:12→21:11)
[2023-08-24] MEDS ORDERED: VANCOMYCIN INJ 500 MG in SODIUM CHLORIDE 0.9% 100ML 100 ML IV SCH (02:00)
[2023-08-24] MEDS: SODIUM BICARBONATE 150 MEQ in DEXTROSE 5% 1,000 ML IV SCH ×2 (02:35→14:14)
[2023-08-24] MEDS: SODIUM CHLORIDE FLUSH 0.9% 10 ML SYRINGE IVP PRN ×3 (04:38→21:51)
[2023-08-24] MEDS: NOREPINEPHRINE/0.9 % NS 8 MG/250 ML BAG IV SCH ×2 (04:46→10:17)
[2023-08-24 05:46] LABS: CALCIUM 7.3 mg/dL (8.5-10.3); CREATININE 2.1 mg/dL (0.6-1.3); PHOSPHORUS 5.2 mg/dL (2.5-5.0); POTASSIUM 3.6 mmol/L (3.5-4.5)
[2023-08-24 05:58] LABS: CALCIUM, IONIZED 1.09 mmol/L (1.15-1.33)
[2023-08-24 06:04] LABS: VBG PH 7.179 (7.31-7.41)
[2023-08-24] MEDS ORDERED: CALCIUM GLUCONATE IN NS 0.9% 2,000 MG/100 ML BAG IV ONE (07:44)
--- NOTE | 2023-08-24 07:47 | PROVIDER PROGRESS NOTE ---
Subjective - Prog Note Date Prog Note Date: 08/24/23 - Subjective Pt reports feeling: Improved (Patient feels better, however she reports that she has a skin rash on her chest and on the back, it can be very itchy. Patient reports the rash was started after she was given antibiotics in the ED. Patient does have a penicillin allergy) Current Medications - Current Medications Current Medications: Active Medications Diphenhydramine HCl (Diphenhydramine Inj 50 Mg/Ml Vial) 25 mg IVP Q6H PRN PRN Reason: Allergy Symptoms Enoxaparin Sodium (Enoxaparin 40 Mg/0.4 Ml Syringe) 40 mg SUBQ DAILY [facility] Last Admin: 08/24/23 09:43 Dose: 40 mg Famotidine (Famotidine 20 Mg/2 Ml Vial) 20 mg IVP BID [facility] Last Admin: 08/24/23 09:26 Dose: 20 mg Furosemide (Furosemide 40 Mg/4 Ml Vial) 40 mg IVP DAILY [facility] Last Admin: 08/24/23 08:33 Dose: 40 mg Sodium Bicarbonate 150 meq/ (Dextrose) 1,150 mls @ 100 mls/hr IV .[id number] [facility] Last Admin: 08/24/23 14:14 Dose: 100 mls/hr Cefepime HCl 1 gm/ Sodium (Chloride) 100 mls @ 200 mls/hr IV TID [facility] Last Infusion: 08/24/23 15:00 Dose: Infused Norepinephrine Bitartrate 8 mg (/ Dextrose) 250 mls @ 15 mls/hr IV .[id number] [facility]; Protocol Ciprofloxacin (Cipro 400 Mg/200 Ml) 400 mg in 200 mls @ 200 mls/hr IV Q12H [facility] Mineral Oil (Min Oil/Dimethicon/Coconut Oil 92 Gm Tube) 1 applic TOP PRN PRN PRN Reason: Skin Care Last Admin: 08/23/23 21:01 Dose: 1 applic Multi-Ingredient Ointment (Zinc Oxide 20% Oint 30 Gm Tube) 1 applic TOP PRN PRN PRN Reason: Skin Care Last Admin: 08/23/23 22:21 Dose: 1 applic Ondansetron HCl (Ondansetron Odt 4 Mg Tablet) 4 mg TL Q6HR PRN PRN Reason: Nausea / Vomiting Oxycodone HCl (Oxycodone 5 Mg Tablet) 5 mg PO Q4HR PRN PRN Reason: Moderate Pain (Level 4-6) Last Admin: 08/24/23 08:29 Dose: 5 mg Potassium Chloride (Potassium Chloride 20 Meq Tablet) 20 meq PO DAILYWM [facility] Last Admin: 08/24/23 08:25 Dose: 20 meq Prochlorperazine Edisylate (Prochlorperazine 10 Mg/2 Ml Vial) 10 mg IVP Q6HR PRN PRN Reason: Nausea / Vomiting Last Admin: 08/23/23 22:21 Dose: 10 mg Sodium Chloride (Sodium Chloride Flush 0.9% 10 Ml Syringe) 10 ml IVP 0100,0900,1700 [facility] Last Admin: 08/24/23 17:15 Dose: 10 ml Sodium Chloride (Sodium Chloride Flush 0.9% 10 Ml Syringe) 10 ml IVP PRN PRN PRN Reason: NEEDED PER PROVIDER ORDERS Last Admin: 08/24/23 05:22 Dose: 10 ml Sodium Chloride (Sodium Chloride Flush 0.9% 10 Ml Syringe) 20 ml IVP PRN PRN PRN Reason: After Blood Draw Last Admin: 08/24/23 04:38 Dose: 30 ml Throat Lozenges (Benzocaine/Menthol Lozenge) 1 lozenge MM Q2HR PRN PRN Reason: Throat pain Last Admin: 08/23/23 22:21 Dose: 1 lozenge Trazodone HCl (Trazodone 50 Mg Tablet) 100 mg PO QPM PRN PRN Reason: Insomnia Last Admin: 08/23/23 22:21 Dose: 100 mg Objective - Vital Signs/Intake & Output Reviewed Vital Signs: Yes Vital Signs: Vital Signs Temp Pulse Resp BP Pulse Ox 08/24/23 07:00 36.7 C 91 10 L 91/60 95 08/24/23 06:00 36.7 C 96 8 L 93/61 97 08/24/23 05:30 36.6 C 90 8 L 105/74 97 08/24/23 05:00 36.6 C 101 H 18 119/76 100 08/24/23 04:00 36.6 C 91 14 91/66 97 Intake & Output: Intake & Output 08/21/23 08/22/23 08/23/23 08/24/23 23:59 23:59 23:59 23:59 Intake Total 9287.835 1255.104 Output Total 3458 564 Balance 5829.835 691.104 - Objective General Appearance: positive: Alert, Mild distress Eyes Bilateral: positive: PERRL, EOMI, Other (Watery conjunctiva) ENT: positive: ENT inspection nml Neck: positive: Nml inspection. negative: Stiff neck Respiratory: positive: Chest non-tender. negative: Wheezes, Rales, Rhonchi Cardiovascular: positive: Regular rate & rhythm Abdomen: positive: Non-tender, No distention Skin: positive: Skin rash (Diffused small red pimple-like rash on her chest and all over her back) Extremities: positive: Non-tender, No pedal edema, Other (mottled skin appears better than yesterday) Neurologic/Psychiatric: positive: CN's nml (2-12), Weakness - Lab Results Fish Bones: 08/23/23 17:47 08/24/23 12:00 Other Labs: Lab Results x24hrs 08/24/23 08/24/23 08/24/23 Range/Units 06:05 04:21 04:21 WBC (4.8-10.8) x10^3/uL RBC (4.20-5.40) 10^6/uL Hgb (12.0-16.0) g/dL Hct (37.0-47.0) % MCV (81.0-99.0) fL MCH (27.0-31.0) pg MCHC (32.0-36.0) g/dL RDW (12.0-15.0) % Plt Count (130-450) 10^3/uL MPV (7.9-10.8) fL Neut # (Auto) Lymph # (Auto) Sunflower # (Auto) Eos # (Auto) Baso # (Auto) Absolute Nucleated RBC Total Counted Band Neuts % (Manual) (0 - 10) % Abnorm Lymph % (Manual) % Metamyelocytes % ( - 0) % Myelocytes % ( - 0) % Nucleated RBC % Neutrophils # (Manual) (1.5-6.6) 10^3/uL Lymphocytes # (Manual) (1.5-3.5) 10^3/uL Monocytes # (Manual) (0.0-1.0) 10^3/uL Eosinophils # (Manual) (0-0.7) 10^3/uL Basophils # (Manual) (0-0.1) 10^3/uL Differential Comment Platelet Morphology (NORMAL) RBC Morph Micro Appear (NORMAL) VBG pH 7.179 L* (7.31-7.41) Ionized Calcium 1.09 L (1.15-1.33) mmol/L Sodium (135-145) mmol/L Potassium (3.5-4.5) mmol/L Chloride (101-111) mmol/L Carbon Dioxide (21-32) mmol/L Anion Gap (6-13) BUN (6-20) mg/dL Creatinine (0.6-1.3) mg/dL Estimated GFR (MDRD) (>89) Glucose (74-104) mg/dL POC Whole Bld Glucose 142 H (70 - 100) mg/dL Lactic Acid (0.5-2.2) mmol/L Calcium (8.5-10.3) mg/dL Phosphorus (2.5-5.0) mg/dL Magnesium (1.7-2.3) mg/dL B-Natriuretic Peptide (5-100) pg/mL Nasal Screen MRSA (PCR) (NEGATIVE) Last Dose Date 08/24/2023 Last Dose Time 0300 Vancomycin Peak 24.1 (20.0-40.0) ug/mL 08/24/23 08/23/23 08/23/23 Range/Units 04:21 23:57 20:39 WBC (4.8-10.8) x10^3/uL RBC (4.20-5.40) 10^6/uL Hgb (12.0-16.0) g/dL Hct (37.0-47.0) % MCV (81.0-99.0) fL MCH (27.0-31.0) pg MCHC (32.0-36.0) g/dL RDW (12.0-15.0) % Plt Count (130-450) 10^3/uL MPV (7.9-10.8) fL Neut # (Auto) Lymph # (Auto) Sunflower # (Auto) Eos # (Auto) Baso # (Auto) Absolute Nucleated RBC Total Counted Band Neuts % (Manual) (0 - 10) % Abnorm Lymph % (Manual) % Metamyelocytes % ( - 0) % Myelocytes % ( - 0) % Nucleated RBC % Neutrophils # (Manual) (1.5-6.6) 10^3/uL Lymphocytes # (Manual) (1.5-3.5) 10^3/uL Monocytes # (Manual) (0.0-1.0) 10^3/uL Eosinophils # (Manual) (0-0.7) 10^3/uL Basophils # (Manual) (0-0.1) 10^3/uL Differential Comment Platelet Morphology (NORMAL) RBC Morph Micro Appear (NORMAL) VBG pH (7.31-7.41) Ionized Calcium (1.15-1.33) mmol/L Sodium 137 (135-145) mmol/L Potassium 3.6 (3.5-4.5) mmol/L Chloride 110 (101-111) mmol/L Carbon Dioxide 16 L (21-32) mmol/L Anion Gap 11.0 (6-13) BUN 38 H (6-20) mg/dL Creatinine 2.1 H (0.6-1.3) mg/dL Estimated GFR (MDRD) 24 L (>89) Glucose 147 H (74-104) mg/dL POC Whole Bld Glucose 119 H 97 (70 - 100) mg/dL Lactic Acid (0.5-2.2) mmol/L Calcium 7.3 L (8.5-10.3) mg/dL Phosphorus 5.2 H (2.5-5.0) mg/dL Magnesium 2.0 (1.7-2.3) mg/dL B-Natriuretic Peptide (5-100) pg/mL Nasal Screen MRSA (PCR) (NEGATIVE) Last Dose Date Last Dose Time Vancomycin Peak (20.0-40.0) ug/mL 08/23/23 08/23/23 08/23/23 Range/Units 17:47 17:47 17:47 WBC 6.0 (4.8-10.8) x10^3/uL RBC 3.99 L (4.20-5.40) 10^6/uL Hgb 11.3 L (12.0-16.0) g/dL Hct 34.6 L (37.0-47.0) % MCV 86.7 (81.0-99.0) fL MCH 28.3 (27.0-31.0) pg MCHC 32.7 (32.0-36.0) g/dL RDW 14.2 (12.0-15.0) % Plt Count 140 (130-450) 10^3/uL MPV 10.4 (7.9-10.8) fL Neut # (Auto) Lymph # (Auto) Sunflower # (Auto) Eos # (Auto) Baso # (Auto) Absolute Nucleated RBC Total Counted Band Neuts % (Manual) (0 - 10) % Abnorm Lymph % (Manual) % Metamyelocytes % ( - 0) % Myelocytes % ( - 0) % Nucleated RBC % Neutrophils # (Manual) (1.5-6.6) 10^3/uL Lymphocytes # (Manual) (1.5-3.5) 10^3/uL Monocytes # (Manual) (0.0-1.0) 10^3/uL Eosinophils # (Manual) (0-0.7) 10^3/uL Basophils # (Manual) (0-0.1) 10^3/uL Differential Comment Platelet Morphology (NORMAL) RBC Morph Micro Appear (NORMAL) VBG pH 7.136 L* (7.31-7.41) Ionized Calcium 1.09 L (1.15-1.33) mmol/L Sodium 134 L (135-145) mmol/L Potassium 4.2 (3.5-4.5) mmol/L Chloride 112 H (101-111) mmol/L Carbon Dioxide 13 L (21-32) mmol/L Anion Gap 9.0 (6-13) BUN 34 H (6-20) mg/dL Creatinine 2.2 H (0.6-1.3) mg/dL Estimated GFR (MDRD) 23 L (>89) Glucose 104 (74-104) mg/dL POC Whole Bld Glucose (70 - 100) mg/dL Lactic Acid (0.5-2.2) mmol/L Calcium 7.4 L (8.5-10.3) mg/dL Phosphorus (2.5-5.0) mg/dL Magnesium 1.6 L (1.7-2.3) mg/dL B-Natriuretic Peptide (5-100) pg/mL Nasal Screen MRSA (PCR) (NEGATIVE) Last Dose Date Last Dose Time Vancomycin Peak (20.0-40.0) ug/mL 08/23/23 08/23/23 08/23/23 Range/Units 17:18 13:09 12:40 WBC (4.8-10.8) x10^3/uL RBC (4.20-5.40) 10^6/uL Hgb (12.0-16.0) g/dL Hct (37.0-47.0) % MCV (81.0-99.0) fL MCH (27.0-31.0) pg MCHC (32.0-36.0) g/dL RDW (12.0-15.0) % Plt Count (130-450) 10^3/uL MPV (7.9-10.8) fL Neut # (Auto) Lymph # (Auto) Sunflower # (Auto) Eos # (Auto) Baso # (Auto) Absolute Nucleated RBC Total Counted Band Neuts % (Manual) (0 - 10) % Abnorm Lymph % (Manual) % Metamyelocytes % ( - 0) % Myelocytes % ( - 0) % Nucleated RBC % Neutrophils # (Manual) (1.5-6.6) 10^3/uL Lymphocytes # (Manual) (1.5-3.5) 10^3/uL Monocytes # (Manual) (0.0-1.0) 10^3/uL Eosinophils # (Manual) (0-0.7) 10^3/uL Basophils # (Manual) (0-0.1) 10^3/uL Differential Comment Platelet Morphology (NORMAL) RBC Morph Micro Appear (NORMAL) VBG pH (7.31-7.41) Ionized Calcium (1.15-1.33) mmol/L Sodium 133 L (135-145) mmol/L Potassium 4.3 (3.5-4.5) mmol/L Chloride 114 H (101-111) mmol/L Carbon Dioxide 10 L* (21-32) mmol/L Anion Gap 9.0 (6-13) BUN 33 H (6-20) mg/dL Creatinine 2.1 H (0.6-1.3) mg/dL Estimated GFR (MDRD) 24 L (>89) Glucose 141 H (74-104) mg/dL POC Whole Bld Glucose 99 (70 - 100) mg/dL Lactic Acid (0.5-2.2) mmol/L Calcium 6.5 L* (8.5-10.3) mg/dL Phosphorus (2.5-5.0) mg/dL Magnesium (1.7-2.3) mg/dL B-Natriuretic Peptide 594 H (5-100) pg/mL Nasal Screen MRSA (PCR) (NEGATIVE) Last Dose Date Last Dose Time Vancomycin Peak (20.0-40.0) ug/mL 08/23/23 08/23/23 08/23/23 Range/Units 12:40 12:40 12:40 WBC (4.8-10.8) x10^3/uL RBC (4.20-5.40) 10^6/uL Hgb (12.0-16.0) g/dL Hct (37.0-47.0) % MCV (81.0-99.0) fL MCH (27.0-31.0) pg MCHC (32.0-36.0) g/dL RDW (12.0-15.0) % Plt Count (130-450) 10^3/uL MPV (7.9-10.8) fL Neut # (Auto) Lymph # (Auto) Sunflower # (Auto) Eos # (Auto) Baso # (Auto) Absolute Nucleated RBC Total Counted Band Neuts % (Manual) (0 - 10) % Abnorm Lymph % (Manual) % Metamyelocytes % ( - 0) % Myelocytes % ( - 0) % Nucleated RBC % Neutrophils # (Manual) (1.5-6.6) 10^3/uL Lymphocytes # (Manual) (1.5-3.5) 10^3/uL Monocytes # (Manual) (0.0-1.0) 10^3/uL Eosinophils # (Manual) (0-0.7) 10^3/uL Basophils # (Manual) (0-0.1) 10^3/uL Differential Comment Platelet Morphology (NORMAL) RBC Morph Micro Appear (NORMAL) VBG pH 7.069 L* (7.31-7.41) Ionized Calcium 1.01 L (1.15-1.33) mmol/L Sodium (135-145) mmol/L Potassium (3.5-4.5) mmol/L Chloride (101-111) mmol/L Carbon Dioxide (21-32) mmol/L Anion Gap (6-13) BUN (6-20) mg/dL Creatinine (0.6-1.3) mg/dL Estimated GFR (MDRD) (>89) Glucose (74-104) mg/dL POC Whole Bld Glucose (70 - 100) mg/dL Lactic Acid (0.5-2.2) mmol/L Calcium (8.5-10.3) mg/dL Phosphorus 3.6 (2.5-5.0) mg/dL Magnesium 1.4 L (1.7-2.3) mg/dL B-Natriuretic Peptide (5-100) pg/mL Nasal Screen MRSA (PCR) NEGATIVE (NEGATIVE) Last Dose Date Last Dose Time Vancomycin Peak (20.0-40.0) ug/mL 08/23/23 08/23/23 08/23/23 Range/Units 12:22 11:25 09:30 WBC (4.8-10.8) x10^3/uL RBC (4.20-5.40) 10^6/uL Hgb (12.0-16.0) g/dL Hct (37.0-47.0) % MCV (81.0-99.0) fL MCH (27.0-31.0) pg MCHC (32.0-36.0) g/dL RDW (12.0-15.0) % Plt Count (130-450) 10^3/uL MPV (7.9-10.8) fL Neut # (Auto) Lymph # (Auto) Sunflower # (Auto) Eos # (Auto) Baso # (Auto) Absolute Nucleated RBC Total Counted Band Neuts % (Manual) (0 - 10) % Abnorm Lymph % (Manual) % Metamyelocytes % ( - 0) % Myelocytes % ( - 0) % Nucleated RBC % Neutrophils # (Manual) (1.5-6.6) 10^3/uL Lymphocytes # (Manual) (1.5-3.5) 10^3/uL Monocytes # (Manual) (0.0-1.0) 10^3/uL Eosinophils # (Manual) (0-0.7) 10^3/uL Basophils # (Manual) (0-0.1) 10^3/uL Differential Comment Platelet Morphology (NORMAL) RBC Morph Micro Appear (NORMAL) VBG pH (7.31-7.41) Ionized Calcium (1.15-1.33) mmol/L Sodium (135-145) mmol/L Potassium (3.5-4.5) mmol/L Chloride (101-111) mmol/L Carbon Dioxide (21-32) mmol/L Anion Gap (6-13) BUN (6-20) mg/dL Creatinine (0.6-1.3) mg/dL Estimated GFR (MDRD) (>89) Glucose (74-104) mg/dL POC Whole Bld Glucose 157 H 55 L* (70 - 100) mg/dL Lactic Acid < 0.2 L (0.5-2.2) mmol/L Calcium (8.5-10.3) mg/dL Phosphorus (2.5-5.0) mg/dL Magnesium (1.7-2.3) mg/dL B-Natriuretic Peptide (5-100) pg/mL Nasal Screen MRSA (PCR) (NEGATIVE) Last Dose Date Last Dose Time Vancomycin Peak (20.0-40.0) ug/mL 08/23/23 08/23/23 08/23/23 Range/Units 09:30 09:30 08:15 WBC 2.1 L 1.9 L* (4.8-10.8) x10^3/uL RBC 3.70 L 3.57 L (4.20-5.40) 10^6/uL Hgb 10.6 L 10.2 L (12.0-16.0) g/dL Hct 32.5 L 31.3 L (37.0-47.0) % MCV 87.8 87.7 (81.0-99.0) fL MCH 28.6 28.6 (27.0-31.0) pg MCHC 32.6 32.6 (32.0-36.0) g/dL RDW 14.4 14.3 (12.0-15.0) % Plt Count 143 145 (130-450) 10^3/uL MPV 10.3 10.4 (7.9-10.8) fL Neut # (Auto) Not Reportable Not Reportable Lymph # (Auto) Not Reportable Not Reportable Sunflower # (Auto) Not Reportable Not Reportable Eos # (Auto) Not Reportable Not Reportable Baso # (Auto) Not Reportable Not Reportable Absolute Nucleated RBC Not Reportable Not Reportable Total Counted 100 100 Band Neuts % (Manual) 31 H 24 H (0 - 10) % Abnorm Lymph % (Manual) 0 0 % Metamyelocytes % 2 H 2 H ( - 0) % Myelocytes % 2 H 8 H ( - 0) % Nucleated RBC % Not Reportable Not Reportable Neutrophils # (Manual) 1.9 1.5 (1.5-6.6) 10^3/uL Lymphocytes # (Manual) 0.0 L 0.0 L (1.5-3.5) 10^3/uL Monocytes # (Manual) 0.0 0.1 (0.0-1.0) 10^3/uL Eosinophils # (Manual) 0.1 0.1 (0-0.7) 10^3/uL Basophils # (Manual) 0.0 0.0 (0-0.1) 10^3/uL Differential Comment MANUAL DIFFERENTIAL MANUAL DIFFERENTIAL Platelet Morphology NORMAL APPEARANCE NORMAL APPEARANCE (NORMAL) RBC Morph Micro Appear 1+ ANISOCYTOSIS 2+ ANISOCYTOSIS (NORMAL) VBG pH (7.31-7.41) Ionized Calcium (1.15-1.33) mmol/L Sodium 134 L (135-145) mmol/L Potassium 4.7 H (3.5-4.5) mmol/L Chloride 115 H (101-111) mmol/L Carbon Dioxide 11 L* (21-32) mmol/L Anion Gap 8.0 (6-13) BUN 32 H (6-20) mg/dL Creatinine 2.1 H (0.6-1.3) mg/dL Estimated GFR (MDRD) 24 L (>89) Glucose 64 L (74-104) mg/dL POC Whole Bld Glucose (70 - 100) mg/dL Lactic Acid (0.5-2.2) mmol/L Calcium 6.0 L* (8.5-10.3) mg/dL Phosphorus (2.5-5.0) mg/dL Magnesium 0.7 L* (1.7-2.3) mg/dL B-Natriuretic Peptide (5-100) pg/mL Nasal Screen MRSA (PCR) (NEGATIVE) Last Dose Date Last Dose Time Vancomycin Peak (20.0-40.0) ug/mL 08/23/23 08/23/23 Range/Units 08:15 08:15 WBC (4.8-10.8) x10^3/uL RBC (4.20-5.40) 10^6/uL Hgb (12.0-16.0) g/dL Hct (37.0-47.0) % MCV (81.0-99.0) fL MCH (27.0-31.0) pg MCHC (32.0-36.0) g/dL RDW (12.0-15.0) % Plt Count (130-450) 10^3/uL MPV (7.9-10.8) fL Neut # (Auto) Lymph # (Auto) Sunflower # (Auto) Eos # (Auto) Baso # (Auto) Absolute Nucleated RBC Total Counted Band Neuts % (Manual) (0 - 10) % Abnorm Lymph % (Manual) % Metamyelocytes % ( - 0) % Myelocytes % ( - 0) % Nucleated RBC % Neutrophils # (Manual) (1.5-6.6) 10^3/uL Lymphocytes # (Manual) (1.5-3.5) 10^3/uL Monocytes # (Manual) (0.0-1.0) 10^3/uL Eosinophils # (Manual) (0-0.7) 10^3/uL Basophils # (Manual) (0-0.1) 10^3/uL Differential Comment Platelet Morphology (NORMAL) RBC Morph Micro Appear (NORMAL) VBG pH (7.31-7.41) Ionized Calcium (1.15-1.33) mmol/L Sodium 134 L (135-145) mmol/L Potassium 4.6 H (3.5-4.5) mmol/L Chloride 116 H (101-111) mmol/L Carbon Dioxide 11 L* (21-32) mmol/L Anion Gap 7.0 (6-13) BUN 31 H (6-20) mg/dL Creatinine 2.1 H (0.6-1.3) mg/dL Estimated GFR (MDRD) 24 L (>89) Glucose 68 L (74-104) mg/dL POC Whole Bld Glucose (70 - 100) mg/dL Lactic Acid 1.8 (0.5-2.2) mmol/L Calcium 5.9 L* (8.5-10.3) mg/dL Phosphorus (2.5-5.0) mg/dL Magnesium 0.7 L* (1.7-2.3) mg/dL B-Natriuretic Peptide (5-100) pg/mL Nasal Screen MRSA (PCR) (NEGATIVE) Last Dose Date Last Dose Time Vancomycin Peak (20.0-40.0) ug/mL - Diagnostic Imaging Diagnostic Imaging Results: positive: Final report reviewed Sepsis Event Note (H) - Evaluation Current Stage of Sepsis: Septic shock Possible source of Sepsis: positive: Other Assessment/Plan - Problem List (1) Staphylococcus aureus bacteremia with sepsis Impression: Improving Appears to be MSSA bacteremia With skin rash after Vanco was given, discontinued vancomycin, switched to Cipro Due to immunosuppressant condition and need of high dose of Levophed, give cefepime to cover any possible gram-negative including Pseudomonas infection. Consider of 3 days of cefepime Continue effort of tapering down Levophed (2) Metabolic acidosis Impression: Improving, Bicarb 20 Following up with BMP and adjust bicarb drip (4) Fluid overload Impression: Improving Conjunctiva still watering, upper arms are still swollen but improved Continue with Lasix 40 mg daily Strict ins and O (5) Neutropenia Impression: Patient is a immune suppressed condition, at presentation WBC at 2K. Currently at 7K Continue with IV antibiotics monitoring CBC (6) Anemia Impression: Chronic, stable No sign of bleeding No indication for blood transfusion at this point (7) Drug rash Impression: Diffuse upper chest and back small red rash, patient reports itchy and after the vancomycin use Give Benadryl as needed for itching Switch antibiotics and monitoring clinically
[2023-08-24] MEDS: CEFEPIME 1 GM in SODIUM CHLORIDE 0.9% MINIBAG 100 ML IV SCH ×3 (08:02→21:51)
[2023-08-24] MEDS: POTASSIUM CHLORIDE 20 MEQ TABLET PO SCH (08:25)
[2023-08-24] MEDS: FUROSEMIDE 40 MG/4 ML VIAL IVP SCH (08:33)
[2023-08-24] MEDS: FAMOTIDINE 20 MG/2 ML VIAL IVP SCH ×2 (09:26→20:59)
[2023-08-24] MEDS: SODIUM CHLORIDE FLUSH 0.9% 10 ML SYRINGE IVP SCH ×2 (09:26→17:15)
[2023-08-24] MEDS: ENOXAPARIN 40 MG/0.4 ML SYRINGE SUBQ SCH (09:43)
--- NOTE | 2023-08-24 11:16 | PHARMACY PROGRESS NOTE ---
- Best Possible Medication History Admit Date and Time: 08/23/23 1053 Processed by: Pharmacy Medication History completed: Yes Patient Interview: Completed Secondary Source(s): Physician records, Pharmacy records, Insurance records, Previous admit records As the person ultimately responsible for medication therapy, providers are able to order a medication from an existing home medication list in [facility] via the "Reconcile Routine" prior to Confirmation of that medication by high school learning support teacher. Such practice is discouraged except when the physician, in their clinical judgment, deems that a medical need exists for a medication without regard to previous use.
[2023-08-24 12:11] LABS: VBG PH 7.27 (7.31-7.41)
[2023-08-24 12:12] LABS: CALCIUM, IONIZED 1.14 mmol/L (1.15-1.33)
[2023-08-24 12:19] LABS: CALCIUM 7.8 mg/dL (8.5-10.3); CREATININE 2.1 mg/dL (0.6-1.3); POTASSIUM 3.4 mmol/L (3.5-4.5)
[2023-08-24] MEDS ORDERED: POTASSIUM CHLOR 20 MEQ/100 ML 20 MEQ/100 ML BAG IV ONE (14:44)
[2023-08-24] MEDS: NORepinephrine 8 MG in DEXTROSE 5% 250ML IV SCH (18:49)
[2023-08-24 18:55] LABS: CALCIUM 7.7 mg/dL (8.5-10.3); POTASSIUM 3.6 mmol/L (3.5-4.5)
[2023-08-24] MEDS: MIN OIL/DIMETHICON/COCONUT OIL 92 GM TUBE TOP PRN (18:55)
[2023-08-24] MEDS: CIPROFLOXACIN 400 MG/200 ML 400 MG/200 ML BAG IV SCH (18:55)
[2023-08-24 18:56] LABS: CALCIUM, IONIZED 1.11 mmol/L (1.15-1.33); VBG PH 7.33 (7.31-7.41)
[2023-08-24] MEDS: diphenhydrAMINE INJ 50 MG/ML VIAL IVP PRN (18:57)
[2023-08-24] MEDS ORDERED: POTASSIUM CHLORIDE 20 MEQ TABLET PO ONE (20:31)
[2023-08-25] MEDS: SODIUM CHLORIDE FLUSH 0.9% 10 ML SYRINGE IVP SCH ×3 (00:14→18:48)
[2023-08-25] MEDS: diphenhydrAMINE INJ 50 MG/ML VIAL IVP PRN ×3 (01:15→08:55)
[2023-08-25] MEDS: oxyCODONE 5 MG TABLET PO PRN ×2 (01:19→14:33)
--- NOTE | 2023-08-25 04:22 | PROVIDER PROGRESS NOTE ---
Animal Impersonator Note - Animal Impersonator Note Animal Impersonator Note: Blood culture - Effie tropicalis Initiated on fluconazole, monitor closely for drug interactions (cipro). Avoid amphotericin given elevated creatinine. Continue to monitor closely, follow up lab for sensitivities.
[2023-08-25] MEDS: SODIUM CHLORIDE FLUSH 0.9% 10 ML SYRINGE IVP PRN ×3 (04:49→21:16)
[2023-08-25 04:56] LABS: CALCIUM, IONIZED 1.12 mmol/L (1.15-1.33); VBG PH 7.322 (7.31-7.41)
[2023-08-25 04:57] LABS: BASOPHILS % (AUTO) 0.1 %; EOSINOPHILS % (AUTO) 2.2 %; HCT - HEMATOCRIT 27.9 % (37.0-47.0); HGB - HEMOGLOBIN 9.6 g/dL (12.0-16.0); LYMPHOCYTES % (AUTO) 3.6 %; MEAN CORPUSCULAR HEMOGLOBIN 28.7 pg (27.0-31.0); MEAN CORPUSCULAR HGB CONC 34.4 g/dL (32.0-36.0); MEAN CORPUSCULAR VOLUME 83.5 fL (81.0-99.0); MEAN PLATELET VOLUME 12.4 fL (7.9-10.8); MONOCYTES % (AUTO) 3.2 %; NEUTROPHILS % (AUTO) 90.7 %; RED BLOOD COUNT 3.34 10^6/uL (4.20-5.40); RED CELL DISTRIBUTION WIDTH 14.2 % (12.0-15.0); WHITE BLOOD COUNT 11.1 x10^3/uL (4.8-10.8)
[2023-08-25 05:07] LABS: PLT - PLATELET COUNT 29 10^3/uL (130-450)
[2023-08-25 05:08] LABS: ABNORMAL LYMPHS % (MANUAL) 0 %; CALCIUM 7.9 mg/dL (8.5-10.3); MAGNESIUM 1.6 mg/dL (1.7-2.3); PHOSPHORUS 3.3 mg/dL (2.5-5.0); POTASSIUM 3.6 mmol/L (3.5-4.5)
[2023-08-25] MEDS ORDERED: MAGNESIUM OXIDE 400 MG TABLET PO ONE (05:25)
[2023-08-25] MEDS ORDERED: POTASSIUM CHLORIDE 20 MEQ TABLET PO ONE (05:25)
[2023-08-25 05:32] LABS: BAND NEUTROPHILS % (MANUAL) 19 %; DIFFERENTIAL COMMENT MANUAL DIFFERENTIAL; EOSINOPHILS # (MANUAL) 0.1 10^3/uL (0-0.7); LYMPHOCYTES # (MANUAL) 0.6 10^3/uL (1.5-3.5); LYMPHOCYTES % (MANUAL) 5 %; METAMYELOCYTES % (MANUAL) 2 %; MONOCYTES # (MANUAL) 0.1 10^3/uL (0.0-1.0); MYELOCYTES % (MANUAL) 1 %; PLATELET ESTIMATE, MANUAL DECREASED (<130,000) (NORMAL); RBC MORPHOLOGY (MULTIPLE) NORMAL APPEARANCE (NORMAL); WBC MORPHOLOGY (MULTIPLE) 1+ TOXIC GRANULATION (NORMAL)
[2023-08-25] MEDS: CEFEPIME 1 GM in SODIUM CHLORIDE 0.9% MINIBAG 100 ML IV SCH (05:48)
[2023-08-25] MEDS ORDERED: DEXTROSE 40% GEL 37.5 GM TUBE PO STA (06:35)
[2023-08-25] MEDS: ZINC OXIDE 20% OINT 30 GM TUBE TOP PRN (06:47)
[2023-08-25] MEDS: CIPROFLOXACIN 400 MG/200 ML 400 MG/200 ML BAG IV SCH ×2 (07:00→18:15)
--- NOTE | 2023-08-25 07:30 | PROVIDER PROGRESS NOTE ---
Subjective - Prog Note Date Prog Note Date: 08/25/23 - Subjective Pt reports feeling: Improved (However patient has drug-induced rash and drug- induced thrombocytopenia) Objective - Vital Signs/Intake & Output Vital Signs: Vital Signs Temp Pulse Resp BP Pulse Ox 08/25/23 07:00 35.8 C L 97 21 97/75 97 08/25/23 06:00 35.7 C L 84 14 96/72 98 08/25/23 05:00 35.6 C L 101 H 21 104/79 100 08/25/23 04:00 36.0 C L 85 15 101/66 98 Intake & Output: Intake & Output 08/22/23 08/23/23 08/24/23 08/25/23 23:59 23:59 23:59 23:59 Intake Total 9287.835 4647.437 340 Output Total 3458 2834 865 Balance 5829.835 1813.437 -525 - Lab Results Fish Bones: 08/25/23 11:00 08/25/23 15:00 Other Labs: Lab Results x24hrs 08/25/23 08/25/23 08/25/23 Range/Units 07:01 06:34 06:13 WBC (4.8-10.8) x10^3/uL RBC (4.20-5.40) 10^6/uL Hgb (12.0-16.0) g/dL Hct (37.0-47.0) % MCV (81.0-99.0) fL MCH (27.0-31.0) pg MCHC (32.0-36.0) g/dL RDW (12.0-15.0) % Plt Count (130-450) 10^3/uL MPV (7.9-10.8) fL Neut # (Auto) Lymph # (Auto) [place] # (Auto) Eos # (Auto) Baso # (Auto) Absolute Nucleated RBC Total Counted Band Neuts % (Manual) (0 - 10) % Abnorm Lymph % (Manual) % Metamyelocytes % ( - 0) % Myelocytes % ( - 0) % Nucleated RBC % Neutrophils # (Manual) (1.5-6.6) 10^3/uL Lymphocytes # (Manual) (1.5-3.5) 10^3/uL Monocytes # (Manual) (0.0-1.0) 10^3/uL Eosinophils # (Manual) (0-0.7) 10^3/uL Basophils # (Manual) (0-0.1) 10^3/uL Differential Comment WBC Morphology (NORMAL) Platelet Estimate (NORMAL) RBC Morph Micro Appear (NORMAL) VBG pH (7.31-7.41) Ionized Calcium (1.15-1.33) mmol/L Sodium (135-145) mmol/L Potassium (3.5-4.5) mmol/L Chloride (101-111) mmol/L Carbon Dioxide (21-32) mmol/L Anion Gap (6-13) BUN (6-20) mg/dL Creatinine (0.6-1.3) mg/dL Estimated GFR (MDRD) (>89) Glucose (74-104) mg/dL POC Whole Bld Glucose 62 L 60 L* 63 L (70 - 100) mg/dL Calcium (8.5-10.3) mg/dL Phosphorus (2.5-5.0) mg/dL Magnesium (1.7-2.3) mg/dL B-Natriuretic Peptide (5-100) pg/mL 08/25/23 08/25/23 08/25/23 Range/Units 04:45 04:45 04:45 WBC 11.1 H (4.8-10.8) x10^3/uL RBC 3.34 L (4.20-5.40) 10^6/uL Hgb 9.6 L (12.0-16.0) g/dL Hct 27.9 L (37.0-47.0) % MCV 83.5 (81.0-99.0) fL MCH 28.7 (27.0-31.0) pg MCHC 34.4 (32.0-36.0) g/dL RDW 14.2 (12.0-15.0) % Plt Count 29 L* (130-450) 10^3/uL MPV 12.4 H (7.9-10.8) fL Neut # (Auto) Not Reportable Lymph # (Auto) Not Reportable [place] # (Auto) Not Reportable Eos # (Auto) Not Reportable Baso # (Auto) Not Reportable Absolute Nucleated RBC Not Reportable Total Counted 100 Band Neuts % (Manual) 19 H (0 - 10) % Abnorm Lymph % (Manual) 0 % Metamyelocytes % 2 H ( - 0) % Myelocytes % 1 H ( - 0) % Nucleated RBC % Not Reportable Neutrophils # (Manual) 10.0 H (1.5-6.6) 10^3/uL Lymphocytes # (Manual) 0.6 L (1.5-3.5) 10^3/uL Monocytes # (Manual) 0.1 (0.0-1.0) 10^3/uL Eosinophils # (Manual) 0.1 (0-0.7) 10^3/uL Basophils # (Manual) 0.0 (0-0.1) 10^3/uL Differential Comment MANUAL DIFFERENTIAL WBC Morphology 1+ TOXIC GRANULATION (NORMAL) Platelet Estimate DECREASED (<130,000) (NORMAL) RBC Morph Micro Appear NORMAL APPEARANCE (NORMAL) VBG pH 7.322 (7.31-7.41) Ionized Calcium 1.12 L (1.15-1.33) mmol/L Sodium 138 (135-145) mmol/L Potassium 3.6 (3.5-4.5) mmol/L Chloride 108 (101-111) mmol/L Carbon Dioxide 23 (21-32) mmol/L Anion Gap 7.0 (6-13) BUN 42 H (6-20) mg/dL Creatinine 2.0 H (0.6-1.3) mg/dL Estimated GFR (MDRD) 25 L (>89) Glucose 72 L (74-104) mg/dL POC Whole Bld Glucose (70 - 100) mg/dL Calcium 7.9 L (8.5-10.3) mg/dL Phosphorus 3.3 (2.5-5.0) mg/dL Magnesium 1.6 L (1.7-2.3) mg/dL B-Natriuretic Peptide (5-100) pg/mL 08/24/23 08/24/23 08/24/23 Range/Units 23:59 18:40 18:20 WBC (4.8-10.8) x10^3/uL RBC (4.20-5.40) 10^6/uL Hgb (12.0-16.0) g/dL Hct (37.0-47.0) % MCV (81.0-99.0) fL MCH (27.0-31.0) pg MCHC (32.0-36.0) g/dL RDW (12.0-15.0) % Plt Count (130-450) 10^3/uL MPV (7.9-10.8) fL Neut # (Auto) Lymph # (Auto) [place] # (Auto) Eos # (Auto) Baso # (Auto) Absolute Nucleated RBC Total Counted Band Neuts % (Manual) (0 - 10) % Abnorm Lymph % (Manual) % Metamyelocytes % ( - 0) % Myelocytes % ( - 0) % Nucleated RBC % Neutrophils # (Manual) (1.5-6.6) 10^3/uL Lymphocytes # (Manual) (1.5-3.5) 10^3/uL Monocytes # (Manual) (0.0-1.0) 10^3/uL Eosinophils # (Manual) (0-0.7) 10^3/uL Basophils # (Manual) (0-0.1) 10^3/uL Differential Comment WBC Morphology (NORMAL) Platelet Estimate (NORMAL) RBC Morph Micro Appear (NORMAL) VBG pH 7.330 (7.31-7.41) Ionized Calcium 1.11 L (1.15-1.33) mmol/L Sodium 138 (135-145) mmol/L Potassium 3.6 (3.5-4.5) mmol/L Chloride 107 (101-111) mmol/L Carbon Dioxide 22 (21-32) mmol/L Anion Gap 9.0 (6-13) BUN 42 H (6-20) mg/dL Creatinine 2.0 H (0.6-1.3) mg/dL Estimated GFR (MDRD) 25 L (>89) Glucose 111 H (74-104) mg/dL POC Whole Bld Glucose 73 (70 - 100) mg/dL Calcium 7.7 L (8.5-10.3) mg/dL Phosphorus (2.5-5.0) mg/dL Magnesium (1.7-2.3) mg/dL B-Natriuretic Peptide (5-100) pg/mL 08/24/23 08/24/23 08/24/23 Range/Units 17:09 12:00 12:00 WBC (4.8-10.8) x10^3/uL RBC (4.20-5.40) 10^6/uL Hgb (12.0-16.0) g/dL Hct (37.0-47.0) % MCV (81.0-99.0) fL MCH (27.0-31.0) pg MCHC (32.0-36.0) g/dL RDW (12.0-15.0) % Plt Count (130-450) 10^3/uL MPV (7.9-10.8) fL Neut # (Auto) Lymph # (Auto) [place] # (Auto) Eos # (Auto) Baso # (Auto) Absolute Nucleated RBC Total Counted Band Neuts % (Manual) (0 - 10) % Abnorm Lymph % (Manual) % Metamyelocytes % ( - 0) % Myelocytes % ( - 0) % Nucleated RBC % Neutrophils # (Manual) (1.5-6.6) 10^3/uL Lymphocytes # (Manual) (1.5-3.5) 10^3/uL Monocytes # (Manual) (0.0-1.0) 10^3/uL Eosinophils # (Manual) (0-0.7) 10^3/uL Basophils # (Manual) (0-0.1) 10^3/uL Differential Comment WBC Morphology (NORMAL) Platelet Estimate (NORMAL) RBC Morph Micro Appear (NORMAL) VBG pH 7.270 L (7.31-7.41) Ionized Calcium 1.14 L (1.15-1.33) mmol/L Sodium 138 (135-145) mmol/L Potassium 3.4 L (3.5-4.5) mmol/L Chloride 108 (101-111) mmol/L Carbon Dioxide 20 L (21-32) mmol/L Anion Gap 10.0 (6-13) BUN 40 H (6-20) mg/dL Creatinine 2.1 H (0.6-1.3) mg/dL Estimated GFR (MDRD) 24 L (>89) Glucose 138 H (74-104) mg/dL POC Whole Bld Glucose 97 (70 - 100) mg/dL Calcium 7.8 L (8.5-10.3) mg/dL Phosphorus (2.5-5.0) mg/dL Magnesium (1.7-2.3) mg/dL B-Natriuretic Peptide (5-100) pg/mL 08/24/23 08/24/23 Range/Units 11:52 05:00 WBC (4.8-10.8) x10^3/uL RBC (4.20-5.40) 10^6/uL Hgb (12.0-16.0) g/dL Hct (37.0-47.0) % MCV (81.0-99.0) fL MCH (27.0-31.0) pg MCHC (32.0-36.0) g/dL RDW (12.0-15.0) % Plt Count (130-450) 10^3/uL MPV (7.9-10.8) fL Neut # (Auto) Lymph # (Auto) [place] # (Auto) Eos # (Auto) Baso # (Auto) Absolute Nucleated RBC Total Counted Band Neuts % (Manual) (0 - 10) % Abnorm Lymph % (Manual) % Metamyelocytes % ( - 0) % Myelocytes % ( - 0) % Nucleated RBC % Neutrophils # (Manual) (1.5-6.6) 10^3/uL Lymphocytes # (Manual) (1.5-3.5) 10^3/uL Monocytes # (Manual) (0.0-1.0) 10^3/uL Eosinophils # (Manual) (0-0.7) 10^3/uL Basophils # (Manual) (0-0.1) 10^3/uL Differential Comment WBC Morphology (NORMAL) Platelet Estimate (NORMAL) RBC Morph Micro Appear (NORMAL) VBG pH (7.31-7.41) Ionized Calcium (1.15-1.33) mmol/L Sodium (135-145) mmol/L Potassium (3.5-4.5) mmol/L Chloride (101-111) mmol/L Carbon Dioxide (21-32) mmol/L Anion Gap (6-13) BUN (6-20) mg/dL Creatinine (0.6-1.3) mg/dL Estimated GFR (MDRD) (>89) Glucose (74-104) mg/dL POC Whole Bld Glucose 84 (70 - 100) mg/dL Calcium (8.5-10.3) mg/dL Phosphorus (2.5-5.0) mg/dL Magnesium (1.7-2.3) mg/dL B-Natriuretic Peptide 557 H (5-100) pg/mL Sepsis Event Note (H) - Evaluation Current Stage of Sepsis: Septic shock Possible source of Sepsis: positive: Other Assessment/Plan - Problem List (1) Staphylococcus aureus bacteremia with sepsis Impression: Based on sensitivity and drug-induced thrombocytopenia and rash switched antibiotic to Cipro Shock status resolved, patient is off Levophed today around noon (2) Drug-induced immune thrombocytopenia Impression: Platelet went down to 29, confirmed repeat at 24. Patient platelet was 140 yesterday. Apparently this is a drug-induced immune thrombocytopenia. Gave dexamethasone 4 mg iv once Consulting with sock turner Dr. Flores, who agrees that DIIT is likely the cause, but recommends to rule out life threatening condition for example DIC Recommends to monitoring platelet counts twice a day, if <10, transfuse; if febrile, transfuse when <20 (3) Metabolic acidosis Impression: Resolved, pH 7.36 (4) Disorder of electrolytes Impression: Resolved (5) Fluid overload Impression: Improved, Lasix as needed (6) Neutropenia Impression: Was neutropenia at time of admission, Resolved (7) Anemia Impression: Stable, monitoring CBC (8) Drug rash Impression: Likely is due to vancomycin Give Benadryl and dexamethasone, improved
[2023-08-25 07:45] LABS: EOSINOPHILS % (AUTO) 1.9 %; HCT - HEMATOCRIT 27.9 % (37.0-47.0); HGB - HEMOGLOBIN 9.6 g/dL (12.0-16.0); MEAN CORPUSCULAR HEMOGLOBIN 28.7 pg (27.0-31.0); MEAN CORPUSCULAR HGB CONC 34.4 g/dL (32.0-36.0); MEAN CORPUSCULAR VOLUME 83.3 fL (81.0-99.0); MEAN PLATELET VOLUME 12.6 fL (7.9-10.8); MONOCYTES % (AUTO) 2.6 %; NEUTROPHILS % (AUTO) 93.2 %; RED BLOOD COUNT 3.35 10^6/uL (4.20-5.40); RED CELL DISTRIBUTION WIDTH 14.4 % (12.0-15.0); WHITE BLOOD COUNT 11.2 x10^3/uL (4.8-10.8)
[2023-08-25] MEDS: POTASSIUM CHLORIDE 20 MEQ TABLET PO SCH (07:50)
[2023-08-25 07:57] LABS: PLT - PLATELET COUNT 24 10^3/uL (130-450)
[2023-08-25 07:58] LABS: ABNORMAL LYMPHS % (MANUAL) 0 %
[2023-08-25 08:20] LABS: BAND NEUTROPHILS % (MANUAL) 7 %; EOSINOPHILS # (MANUAL) 0.1 10^3/uL (0-0.7); LYMPHOCYTES # (MANUAL) 0.4 10^3/uL (1.5-3.5); LYMPHOCYTES % (MANUAL) 2 %; METAMYELOCYTES % (MANUAL) 3 %; MONOCYTES # (MANUAL) 0.7 10^3/uL (0.0-1.0); NEUTROPHILS # (MANUAL) 9.6 10^3/uL (1.5-6.6); RBC MORPHOLOGY (MULTIPLE) 1+ ANISOCYTOSIS (NORMAL); REACTIVE LYMPHS % (MANUAL) 2 %
[2023-08-25 08:22] LABS: DIFFERENTIAL COMMENT MANUAL DIFFERENTIAL
[2023-08-25] MEDS ORDERED: DEXAMETHASONE 4 MG/ML VIAL IVP ONE (08:39)
[2023-08-25] MEDS: FAMOTIDINE 20 MG/2 ML VIAL IVP SCH ×2 (08:55→21:12)
[2023-08-25] MEDS: FUROSEMIDE 40 MG/4 ML VIAL IVP SCH (08:55)
[2023-08-25] MEDS ORDERED: AMPHOTERICIN B IV SCH (09:00)
[2023-08-25] MEDS ORDERED: FLUCONAZOLE 200 MG/100 ML 100 ML IV SCH (09:00)
[2023-08-25] MEDS ORDERED: DEXTROSE 5% IV SCH (09:00)
[2023-08-25] MEDS: BENZOCAINE/MENTHOL LOZENGE MM PRN (10:44)
[2023-08-25] MEDS: CHOLECALCIFEROL 5,000 UNIT CAPSULE PO SCH (10:44)
[2023-08-25 11:21] LABS: CALCIUM, IONIZED 1.12 mmol/L (1.15-1.33); VBG PH 7.353 (7.31-7.41)
[2023-08-25 11:31] LABS: BASOPHILS % (AUTO) 0.1 %; EOSINOPHILS % (AUTO) 1.6 %; HGB - HEMOGLOBIN 9.6 g/dL (12.0-16.0); LYMPHOCYTES % (AUTO) 2.5 %; MEAN CORPUSCULAR HEMOGLOBIN 28.7 pg (27.0-31.0); MEAN CORPUSCULAR HGB CONC 34.3 g/dL (32.0-36.0); MEAN CORPUSCULAR VOLUME 83.6 fL (81.0-99.0); MONOCYTES % (AUTO) 3.7 %; NEUTROPHILS % (AUTO) 91.5 %; RED BLOOD COUNT 3.35 10^6/uL (4.20-5.40); RED CELL DISTRIBUTION WIDTH 14.4 % (12.0-15.0); WHITE BLOOD COUNT 11.8 x10^3/uL (4.8-10.8)
[2023-08-25 11:34] LABS: PLT - PLATELET COUNT 20 10^3/uL (130-450)
[2023-08-25 11:35] LABS: ABNORMAL LYMPHS % (MANUAL) 0 %
[2023-08-25 11:36] LABS: CREATININE 1.8 mg/dL (0.6-1.3); POTASSIUM 3.7 mmol/L (3.5-4.5)
[2023-08-25] MEDS ORDERED: POTASSIUM CHLOR 20 MEQ/100 ML 20 MEQ/100 ML BAG IV ONE (11:46)
[2023-08-25 11:47] LABS: MAGNESIUM 1.6 mg/dL (1.7-2.3); PHOSPHORUS 2.9 mg/dL (2.5-5.0)
[2023-08-25 11:49] LABS: BAND NEUTROPHILS % (MANUAL) 6 %; DIFFERENTIAL COMMENT MANUAL DIFFERENTIAL; EOSINOPHILS # (MANUAL) 0.6 10^3/uL (0-0.7); LYMPHOCYTES # (MANUAL) 0.2 10^3/uL (1.5-3.5); LYMPHOCYTES % (MANUAL) 2 %; MONOCYTES # (MANUAL) 0.2 10^3/uL (0.0-1.0); NEUTROPHILS # (MANUAL) 10.7 10^3/uL (1.5-6.6); RBC MORPHOLOGY (MULTIPLE) 1+ ANISOCYTOSIS (NORMAL)
[2023-08-25] MEDS ORDERED: MAGNESIUM SULFATE 2 GRAM 2 GM/50 ML BAG IV ONE (12:03)
[2023-08-25 15:33] LABS: MAGNESIUM 2.2 mg/dL (1.7-2.3)
[2023-08-25] MEDS ORDERED: NOREPINEPHRINE/D5W 8 MG/250 ML BAG IV SCH (16:00)
[2023-08-25 18:40] LABS: BASOPHILS % (AUTO) 0.1 %; EOSINOPHILS % (AUTO) 0.5 %; HCT - HEMATOCRIT 28.8 % (37.0-47.0); HGB - HEMOGLOBIN 9.8 g/dL (12.0-16.0); LYMPHOCYTES % (AUTO) 6.6 %; MEAN CORPUSCULAR HEMOGLOBIN 28.3 pg (27.0-31.0); MEAN CORPUSCULAR VOLUME 83.2 fL (81.0-99.0); MONOCYTES % (AUTO) 2.5 %; NEUTROPHILS % (AUTO) 89.5 %; RED BLOOD COUNT 3.46 10^6/uL (4.20-5.40); RED CELL DISTRIBUTION WIDTH 14.4 % (12.0-15.0); WHITE BLOOD COUNT 11.8 x10^3/uL (4.8-10.8)
[2023-08-25 18:45] LABS: PT - PROTHROMBIN TIME 10.5 secs (9.9-12.6)
[2023-08-25 18:56] LABS: CALCIUM 8.2 mg/dL (8.5-10.3); CREATININE 1.7 mg/dL (0.6-1.3); POTASSIUM 4.3 mmol/L (3.5-4.5)
--- NOTE | 2023-08-25 18:59 | PROVIDER PROGRESS NOTE ---
Progress Note per microbiology lab, the PCR mechiane has error, needs calibriontion, the previous candidas positive report was an lab error. patient does not have bertha growth in his blood culture
[2023-08-25 19:01] LABS: PLT - PLATELET COUNT 16 10^3/uL (130-450)
[2023-08-25 19:03] LABS: ABNORMAL LYMPHS % (MANUAL) 0 %
[2023-08-25 19:15] LABS: BAND NEUTROPHILS % (MANUAL) 6 %; LYMPHOCYTES # (MANUAL) 0.6 10^3/uL (1.5-3.5); LYMPHOCYTES % (MANUAL) 5 %; MONOCYTES # (MANUAL) 0.4 10^3/uL (0.0-1.0); NEUTROPHILS # (MANUAL) 10.9 10^3/uL (1.5-6.6)
[2023-08-25 19:16] LABS: PLATELET ESTIMATE, MANUAL DECREASED (<130,000) (NORMAL); PLATELET MORPHOLOGY NORMAL APPEARANCE (NORMAL)
[2023-08-25 19:21] LABS: DIFFERENTIAL COMMENT MANUAL DIFFERENTIAL
[2023-08-25] MEDS: NORepinephrine 8 MG in DEXTROSE 5% 250ML IV SCH (19:29)
[2023-08-25] MEDS: traZODone 50 MG TABLET PO PRN (21:12)
[2023-08-26] MEDS: SODIUM CHLORIDE FLUSH 0.9% 10 ML SYRINGE IVP SCH ×2 (00:23→09:10)
[2023-08-26] MEDS: NORepinephrine 8 MG in DEXTROSE 5% 250ML IV SCH (02:41)
[2023-08-26] MEDS: SODIUM CHLORIDE FLUSH 0.9% 10 ML SYRINGE IVP PRN ×2 (04:32)
[2023-08-26 05:26] LABS: BASOPHILS % (AUTO) 0.1 %; EOSINOPHILS % (AUTO) 0.1 %; HCT - HEMATOCRIT 26.5 % (37.0-47.0); HGB - HEMOGLOBIN 9.1 g/dL (12.0-16.0); MEAN CORPUSCULAR HEMOGLOBIN 28.6 pg (27.0-31.0); MEAN CORPUSCULAR HGB CONC 34.3 g/dL (32.0-36.0); MEAN CORPUSCULAR VOLUME 83.3 fL (81.0-99.0); MONOCYTES % (AUTO) 3.4 %; NEUTROPHILS % (AUTO) 87.2 %; RED BLOOD COUNT 3.18 10^6/uL (4.20-5.40); RED CELL DISTRIBUTION WIDTH 14.4 % (12.0-15.0); WHITE BLOOD COUNT 13.8 x10^3/uL (4.8-10.8)
[2023-08-26] MEDS: CIPROFLOXACIN 400 MG/200 ML 400 MG/200 ML BAG IV SCH (05:51)
[2023-08-26 05:57] LABS: CALCIUM 7.9 mg/dL (8.5-10.3); CREATININE 1.4 mg/dL (0.6-1.3); MAGNESIUM 1.8 mg/dL (1.7-2.3); PHOSPHORUS 2.9 mg/dL (2.5-5.0); POTASSIUM 3.6 mmol/L (3.5-4.5)
[2023-08-26 06:20] LABS: VBG PH 7.306 (7.31-7.41)
[2023-08-26 06:21] LABS: CALCIUM, IONIZED 1.15 mmol/L (1.15-1.33)
[2023-08-26 06:52] LABS: PLT - PLATELET COUNT 11 10^3/uL (130-450)
[2023-08-26 06:55] LABS: ABNORMAL LYMPHS % (MANUAL) 0 %
[2023-08-26] MEDS ORDERED: DEXAMETHASONE 4 MG/ML VIAL IVP ONE (07:09)
[2023-08-26 07:21] LABS: BAND NEUTROPHILS % (MANUAL) 1 %; LYMPHOCYTES # (MANUAL) 2.6 10^3/uL (1.5-3.5); LYMPHOCYTES % (MANUAL) 1 %; MONOCYTES # (MANUAL) 0.6 10^3/uL (0.0-1.0); NEUTROPHILS # (MANUAL) 10.6 10^3/uL (1.5-6.6); REACTIVE LYMPHS % (MANUAL) 18 %
[2023-08-26 07:23] LABS: PLATELET ESTIMATE, MANUAL DECREASED (<130,000) (NORMAL); PLATELET MORPHOLOGY NORMAL APP (NORMAL); RBC MORPHOLOGY (MULTIPLE) NORMAL APPEARANCE (NORMAL)
[2023-08-26 07:24] LABS: WBC MORPHOLOGY (MULTIPLE) 2+ REACTIVE LYMPHS (NORMAL)
[2023-08-26 07:25] LABS: DIFFERENTIAL COMMENT MANUAL DIFFERENTIAL
[2023-08-26] MEDS: diphenhydrAMINE INJ 50 MG/ML VIAL IVP PRN (08:27)
[2023-08-26] MEDS ORDERED: FAMOTIDINE 20 MG TABLET PO SCH (09:00)
[2023-08-26] MEDS: MAGNESIUM OXIDE 400 MG TABLET PO SCH ×2 (09:09→14:37)
[2023-08-26] MEDS: CHOLECALCIFEROL 5,000 UNIT CAPSULE PO SCH (09:09)
[2023-08-26] MEDS: POTASSIUM CHLORIDE 20 MEQ TABLET PO ONE (09:10)
--- NOTE | 2023-08-26 09:11 | CT Report ---
PROCEDURE: Head W/O Stroke Protocol INDICATIONS: rule out intracranal hemorrhage, AMS, 11K platelet TECHNIQUE: Noncontrast 4.5 mm thick angled axial sections acquired from the foramen magnum to the vertex, with c oronal reformats. For radiation dose reduction, the following was used: automated exposure control, adjustment of mA and/or kV according to patient size. COMPARISON: None. FINDINGS: Note radiologist was not notified of stroke protocol. Image quality: Excellent. CSF spaces: Basal cisterns are patent. No extra-axial fluid collections. Ventricles are normal in size and shape. Brain: No midline shift. No intracranial masses or hemorrhage. Gilmore-white matter interface is norm al. Skull and face: Calvarium and visualized facial bones are intact, without suspicious lesions. Sinuses: Visualized sinuses and mastoids are clear. IMPRESSION: No intracranial hemorrhage or acute findings. This study fulfills neurological imaging criteria for inclusion or exclusion of acute stroke therapie s based on available published neurological imaging guidelines. Reviewed by: Will Schmid MD on 08/26/2023 8:09 AM VONNIE Approved by: Will Schmid MD on 08/26/2023 8:09 AM VONNIE Station ID: [id number]
--- NOTE | 2023-08-26 11:09 | DISCHARGE SUMMARY ---
"Discharge Summary Admit Date: 08/23/23 Discharge Date: 08/26/23 Discharging Provider: Nasim Cedeno Code Status: Attempt Resuscitation Condition at Discharge: Critical Discharge Disposition: 02 Transfer Acute Care Hosp Discharge Facility Name: [facility] - DIAGNOSES Admission Diagnoses: Septic shock, staph on rare bacteremia Neutropenia Anemia Discharge Diagnoses with Status of Each Condition: Drug induced thrombocytopenia, likely related to vancomycin versus cefepime use, critical condition, with mucous membrane bleeding, altered mental status Ruled out intracranial bleeding Need to rule out TTP Septic shock, shock status resolved Staph Monika bacteremia, improved, repeat culture on 08/24/2023 no growth to date - HPI History of Present Illness: 63 years old female with history of ulcerative colitis on Humira, ostomy bag in place, history of staph Monika bacteremia in 2014, Presented to the ED 08/22/2023 with fever chills and a cough. She had a fall lab work-up showed normal WBC, negative chest x-ray, normal urine analysis and a normal lactic acid. She has chronic bandemia similar to her baseline. She was hypotensive with systolic blood pressure of 98 on arrival, but improved well with IV fluid. Her respiratory PCR panel was negative, blood culture was obtai uriah. Patient was sent home after improvement of her blood pressure. Patient was called back from ED on 08/23/2023 midnight due to positive blood culture reports shows staph Monika on both blood samples. Patient reports she has been nauseated but no vomiting after she was discharged to the ED the day before. She felt very weak. Patient is admitted on 08/23/2023. Patient was tachycardic with heart rate 110, blood pressure 86/56, patient has low temperature of 35C, on room air. Blood pressure has no improvement on IV fluid, patient was put on Levophed for blood pressure support. Patient was started on IV Vanco in the ED. Labs show significant with neutropenia WBC 2.1, anemia hemoglobin 10.6. Bands 31% as baseline. Platelet 143, bicarb 11, anion gap 8. BUN 32, creatinine 2.1 glucose 64. Lactate acid was 3.5. Improved to less than 0.2 calcium 6 magnesium 0.7 and patient is admitted to ICU for further management. - CONSULTS | PROCEDURES Consultations: Hematology Dr. Flores - HOSPITAL COURSE Hospital Course: Patient was continue vancomycin after admission, cefepime was added 08/24 with concerning of neutropenia status skin rash was first noted noted on 08/24/2023, appears mostly upper chest and back, small red patient complains of itchy. Patient has history of penicillin allergy. With concerns of drug rash, vancomycin and cefepime was discontinued. Started on Cipro IV based on sensitivity. On 08/24/2023 night, patient blood culture reported positive with Effie's, patient was started on fluconazole IV. Received 1 dose. Then microbiology lab report equipment error, corrected report to no candidiasis growth. Fluconazole was discontinued right away on 08/25/2020 AM. Patient was able to weaned off from Levophed on 08/25/2023 At noon. However skin rash becomes more prominent down to her whole body. Also platelet was reported 29K critical. Repeat shows 24K. Gave Benadryl and dexamethasone 4 milligram IV once on 08/25/2023. Patient skin rash improved, states feels improved. Consulted with hematology Dr. Flores, who agrees that likely patient has reactive thrombocytopenia, it can be from the severe infection versus drug-induced. Recommend continue monitoring, transfuse platelet if patient is febrile or has sign of bleeding. Rule out DIC. On 08/26/2023, patient platelet down to 11 K, also with oral mucosal bleeding. Confused and altered. 4 mg dexamethasone was given once again on 08/26/2023. Stat CT head ruled out intracranial bleeding. 3 units of platelet has been ordered, await for being transported to [facility] which can be late in the day. So far patient hemoglobin 9.1. WBC went up to 13.8. Neutrophil 10.6, lymphocyte 2.6, eosinophils 0.0. LDH 449. Peripheral smear pending. INR 1.0, PT 10.5, fibrinogen 392. Creatinine 1.4 other electrolytes were within normal limits. With concerning life-threatening thrombocytopenia, it can be from other etiologies including TTP. Patient is transferred to higher level care. Patient Rashad has been updated at bedside, daughter were updated via phone. Families are very supportive, agrees with the transfer - ALLERGIES Allergies/Adverse Reactions: Allergies Allergy/AdvReac Type Severity Reaction Status Date / Time Penicillins Allergy Anaphylaxis Verified 08/23/23 00:41 vancomycin Allergy Rash Verified 08/25/23 07:42 - MEDICATIONS Home Medications: Ambulatory Orders Medication Instructions Recorded Confirmed HYDROcod/ACETAM 5/325 [[place] 5/325] 1 ea PO Q6H PRN #12 tablet 08/22/23 08/23/23 Ondansetron Odt [Zofran] 4 mg TL Q6H PRN #10 tablet 08/22/23 08/23/23 - PHYSICAL EXAM AT DISCHARGE General Appearance: positive: Alert, Other (Confused) ENT: positive: Other (Bleeding appears stopped still has residual blood staining cover her lips) Neck: positive: No JVD Cardiovascular: positive: Regular rate & rhythm Peripheral Pulses: positive: 2+ Abdomen: positive: No distention, Other (Ostomy bag in place) Extremities: positive: Other (Central line in right groin was placed on 08/23/2023) Physical Exam Other/Comments: Ocasio is in place, central line right femoral - LABS Result Diagrams: 08/26/23 04:30 08/26/23 04:30 - DIAGNOSTIC IMAGING Diagnostic Imaging Results: Final report reviewed Diagnostic Imaging Results Comments: CT head on 08/26/2023 no acute intracranial findings - SEPSIS Current Stage of Sepsis: Septic shock Possible source of Sepsis: Other - TIME SPENT Time Spent in Discharge (Minutes): 60"
--- NOTE | 2023-08-26 11:42 | Discharge Plan ---
Discharge Plan Problem Reviewed?: Yes Disposition: 02 Transfer Acute Care Hosp Condition: Critical Diet: Regular Activity Restrictions: Activity as Tolerated Shower Restrictions: Yes Driving Restrictions: Yes Weight Bearing: critical ill Health Concerns: needs higher level care Assessment: stable for transfer No Smoking: If you smoke, Please STOP! Call for help.
[2023-08-26] MEDS: oxyCODONE 5 MG TABLET PO PRN (12:23)
[2023-08-26] MEDS: POTASSIUM CHLORIDE 20 MEQ TABLET PO SCH (12:25)
[2023-08-26 13:38] LABS: HCT - HEMATOCRIT 26.2 % (37.0-47.0); MEAN CORPUSCULAR HEMOGLOBIN 28.4 pg (27.0-31.0); MEAN CORPUSCULAR HGB CONC 34.4 g/dL (32.0-36.0); MEAN CORPUSCULAR VOLUME 82.6 fL (81.0-99.0); MEAN PLATELET VOLUME 12.3 fL (7.9-10.8); RED BLOOD COUNT 3.17 10^6/uL (4.20-5.40); RED CELL DISTRIBUTION WIDTH 14.3 % (12.0-15.0); WHITE BLOOD COUNT 17.1 x10^3/uL (4.8-10.8)
[2023-08-26 14:30] VITALS: BP 104/80; O2SAT 97
== END 2023-08-26 14:15 | disposition short-term general hospital (02) | DRG 871 ==
LOC: ED 00:21 → ICU 10:53
PROVIDERS: ADMIT Internal Medicine; ATTEND Internal Medicine
PROC: 30233R1 Transfusion of Nonautologous Platelets into Peripheral Vein, Percutaneous Approach (ICD-10-PCS; principal; 2023-08-26)
DX: A41.01 Sepsis due to Methicillin susceptible Staphylococcus aureus (principal); R65.21 Severe sepsis with septic shock; E87.20 Acidosis, unspecified; J84.9 Interstitial pulmonary disease, unspecified; K51.90 Ulcerative colitis, unspecified, without complications; G93.40 Encephalopathy, unspecified; E83.42 Hypomagnesemia; E83.51 Hypocalcemia; E87.79 Other fluid overload; D70.9 Neutropenia, unspecified; D64.9 Anemia, unspecified; D69.59 Other secondary thrombocytopenia; L27.0 Generalized skin eruption due to drugs and medicaments taken internally; T36.8X5A Adverse effect of other systemic antibiotics, initial encounter; F41.9 Anxiety disorder, unspecified; R41.82 Altered mental status, unspecified; Z88.0 Allergy status to penicillin; K13.79 Other lesions of oral mucosa
CPT/HCPCS: 36415; 36556; 36620; 51702; 70450; 71045; 74176; 80048; 80053; 80202; 81001; 82330; 83605; 83615; 83690; 83735; 83880; 84100; 84132; 85025; 85027; 85384; 85610; 86850; 86900; 86901; 87040; 87150; 87181; 93005; 93306; 96361; 96365; 96366; 96368; 96375; 96376; 99285; A6250; A9270; J1200; J1650; J3370; J3490; P9037; 81003; 87086

== ENCOUNTER 2023-12-15 11:19 | Outpatient (CLI) | payer OTHER ==
[2023-12-15 11:27] LABS: BILIRUBIN,URINE NEGATIVE (NEGATIVE); GLUCOSE, URINE (UA) NEGATIVE (NEGATIVE); KETONES,URINE (UA) NEGATIVE (NEGATIVE); LEUKOCYTE ESTERASE, URINE NEGATIVE (NEGATIVE); NITRITE,URINE NEGATIVE (NEGATIVE); OCCULT BLOOD,URINE NEGATIVE (NEGATIVE); PROTEIN,URINE NEGATIVE (NEGATIVE); UROBILINOGEN,URINE 0.2 (NORMAL) E.U./dL (NORMAL)
[2023-12-15 11:41] LABS: BACTERIA,URINE None Seen /HPF (None Seen); CLARITY,URINE CLEAR (CLEAR); RBC,URINE None Seen /HPF (0-5); SQUAMOUS EPITHELIAL CELL,UR NONE SEEN (<= Few); WBC,URINE 0-3 /HPF (0-5)
== END 2023-12-15 11:20 | disposition home or self-care (01) ==
LOC: LAB 11:19
PROVIDERS: ATTEND Emergency Medicine
DX: R10.9 Unspecified abdominal pain (principal); R30.0 Dysuria
CPT/HCPCS: 81001; 87086

== ENCOUNTER 2023-12-16 04:24 | Observation (INO) | payer OTHER ==
--- NOTE | 2023-12-16 05:05 | ED Physician Documentation ---
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 He states it's been very difficult taking care of her and he's worried about her. Patient is AOX4 albeit with unusual affect and is not forthcoming with information. she was seen in walk in clinic and had negative u/a yesterday. Review of Systems Constitutional: reports: Other (decreased appetite). denies: Fever, Chills Cardiac: denies: Chest pain / pressure Respiratory: denies: Dyspnea GI: denies: Abdominal Pain, Nausea, Vomiting Neurologic: reports: Other (psychomotor agitation) Psychiatric: reports: Insomnia PD PAST MEDICAL HISTORY - Past Medical History Cardiovascular: None Respiratory: None Neuro: None Endocrine/Autoimmune: None GI: Crohn's disease UNIT RECEPTIONIST: None : None HEENT: None Psych: None Musculoskeletal: None Derm: None - Past Surgical History Past Surgical History: Yes General: Bowel surgery /UNIT RECEPTIONIST: section Derm: Other - Present Medications Home Medications: Ambulatory Orders Medication Instructions Recorded Confirmed Ondansetron Odt [Zofran] 4 mg TL Q6H PRN #10 tablet 08/22/23 12/16/23 Gabapentin [Neurontin] 300 mg PO DAILY PM 12/16/23 12/16/23 Losartan/Hydrochlorothiazide 100 mg PO DAILY 12/16/23 12/16/23 [Losartan-Hctz 100-12.5 mg Tab] QUEtiapine [SEROquel] 25 mg PO QPM #20 tablet 12/16/23 cephALEXin [Keflex] 500 mg PO Q6HR 12/16/23 12/16/23 hydrALAZINE [Apresoline] 10 mg PO BID 12/16/23 12/16/23 - Allergies Allergies/Adverse Reactions: Allergies Allergy/AdvReac Type Severity Reaction Status Date / Time Penicillins Allergy Anaphylaxis Verified 08/23/23 00:41 vancomycin Allergy Rash Verified 08/25/23 07:42 - Social History Does the pt smoke?: No Smoking Status: Never smoker Does the pt drink ETOH?: Yes Does the pt have substance abuse?: No - Immunizations Immunizations are current?: No Immunizations: TDAP >10years/unknown - POLST Patient has POLST: No PD ED PE NORMAL - Vitals Vital signs reviewed: Yes - General General: Alert and oriented X 3, No acute distress, Other (small body habitus. neck brace in place) - HEENT HEENT: Atraumatic, PERRL, EOMI - Neck Neck: Supple, no meningeal sign - Cardiac Cardiac: RRR - Respiratory Respiratory: No respiratory distress, Clear bilaterally - Abdomen Abdomen: Non tender, Non distended - Derm Derm: Normal color, Warm and dry Results - Vitals Vitals: Vital Signs - 24 hr 12/16/23 12/16/23 12/16/23 04:46 04:51 06:28 Temperature 36 C L Heart Rate 90 88 100 Respiratory 20 18 20 Rate Blood Pressure 174/100 H 168/99 H 146/118 H O2 Saturation 100 100 100 Oxygen O2 Source Room air - Labs Labs: Laboratory Tests 12/16/23 12/16/23 12/16/23 04:44 05:27 05:27 WBC 2.7 L RBC 3.55 L Hgb 10.9 L Hct 31.5 L MCV 88.7 MCH 30.7 MCHC 34.6 RDW 15.9 H Plt Count 323 MPV 9.0 Neut # (Auto) 1.9 Lymph # (Auto) 0.6 L [place] # (Auto) 0.2 Eos # (Auto) 0.0 Baso # (Auto) 0.0 Absolute Nucleated RBC 0.00 Nucleated RBC % 0.0 Manual Slide Review Indicated Platelet Estimate NORMAL (130-450,000) Platelet Morphology NORMAL APPEARANCE Sodium 122 L Potassium 4.2 Chloride 90 L Carbon Dioxide 21 Anion Gap 11.0 BUN 18 Creatinine 0.6 Estimated GFR (MDRD) 101 Glucose 90 POC Whole Bld Glucose 97 Calcium 11.0 H Magnesium 1.4 L Total Bilirubin 0.5 AST 47 H ALT 61 H Alkaline Phosphatase 214 H Ammonia Total Creatine Kinase 308 H Total Protein 7.9 Albumin 3.8 Globulin 4.1 Albumin/Globulin Ratio 0.9 L Lipase < 10 L TSH 3.79 Salicylates < 1.5 Urine Opiates Screen Ur Buprenorphine Scrn Ur Oxycodone Screen Urine Methadone Screen Acetaminophen 2.2 Ur Barbiturates Screen Ur Tricyclics Screen Ur Phencyclidine Scrn Ur Amphetamine Screen U Methamphetamines Scrn U Benzodiazepines Scrn Urine Cocaine Screen U Cannabinoids Screen Ur Drug Screen Comment Ethyl Alcohol < 10.0 12/16/23 12/16/23 12/16/23 05:27 05:56 06:53 WBC RBC Hgb Hct MCV MCH MCHC RDW Plt Count MPV Neut # (Auto) Lymph # (Auto) [place] # (Auto) Eos # (Auto) Baso # (Auto) Absolute Nucleated RBC Nucleated RBC % Manual Slide Review Platelet Estimate Platelet Morphology Sodium 124 L Potassium Chloride Carbon Dioxide Anion Gap BUN Creatinine Estimated GFR (MDRD) Glucose POC Whole Bld Glucose Calcium Magnesium Total Bilirubin AST ALT Alkaline Phosphatase Ammonia 24.6 Total Creatine Kinase Total Protein Albumin Globulin Albumin/Globulin Ratio Lipase TSH Salicylates Urine Opiates Screen NEGATIVE Ur Buprenorphine Scrn NEGATIVE Ur Oxycodone Screen NEGATIVE Urine Methadone Screen NEGATIVE Acetaminophen Ur Barbiturates Screen NEGATIVE Ur Tricyclics Screen NEGATIVE Ur Phencyclidine Scrn NEGATIVE Ur Amphetamine Screen NEGATIVE U Methamphetamines Scrn NEGATIVE U Benzodiazepines Scrn NEGATIVE Urine Cocaine Screen NEGATIVE U Cannabinoids Screen NEGATIVE Ur Drug Screen Comment CUTOFF CONC BELOW: Ethyl Alcohol PD Medical Decision Making - ED course ED course: 63yF with recent 4 month hospitalization p/w decreased appetite and insomnia X 1 week since discharge from hospital. Also with some psychomotor agitation/fidgeting behavior. Screening labs obtained including cbc, abdominal panel, ammonia, magnesium, ck, tsh, etoh, apap, asa, mudds screen. Patient's labwork was significant for hyponatremia with Na 122. This is new from previous labs and could explain her AMS. also with hb 10.9 which is stable from previous. ordered bolus 100cc of 3% saline in treatment of severe hyponatremia with AMS. d/w Dr. Wheeler, [facility] for admission. He will place the patient on list for admission and the day hospitalist will call back in AM. d/w Dr. Schroeder at 7am shift change. Departure - Departure Disposition: 66 [facility] DC/Xfer Clinical Impression: Psychomotor agitation, Insomnia, Decreased appetite, Hyponatremia, Altered mental status Condition: Serious Prescriptions: QUEtiapine [SEROquel] 25 mg PO QPM #20 tablet
[2023-12-16] MEDS: QUEtiapine 25 MG TABLET PO STA (05:36)
[2023-12-16 05:38] LABS: BASOPHILS % (AUTO) 0.4 %; EOSINOPHILS % (AUTO) 0.7 %; HCT - HEMATOCRIT 31.5 % (37.0-47.0); HGB - HEMOGLOBIN 10.9 g/dL (12.0-16.0); LYMPHOCYTES # (AUTO) 0.6 10^3/uL (1.5-3.5); LYMPHOCYTES % (AUTO) 22.7 %; MEAN CORPUSCULAR HEMOGLOBIN 30.7 pg (27.0-31.0); MEAN CORPUSCULAR HGB CONC 34.6 g/dL (32.0-36.0); MEAN CORPUSCULAR VOLUME 88.7 fL (81.0-99.0); MONOCYTES # (AUTO) 0.2 10^3/uL (0.0-1.0); MONOCYTES % (AUTO) 7.7 %; NEUTROPHILS # (AUTO) 1.9 10^3/uL (1.5-6.6); NEUTROPHILS % (AUTO) 68.1 %; PLT - PLATELET COUNT 323 10^3/uL (130-450); RED BLOOD COUNT 3.55 10^6/uL (4.20-5.40); RED CELL DISTRIBUTION WIDTH 15.9 % (12.0-15.0); WHITE BLOOD COUNT 2.7 x10^3/uL (4.8-10.8)
[2023-12-16 05:51] LABS: ACETAMINOPHEN 2.2 ug/mL; ALBUMIN 3.8 g/dL (3.2-5.5); ALBUMIN/GLOBULIN RATIO 0.9 (1.0-2.2); ALKALINE PHOSPHATASE 214 IU/L (42-121); ALT ALANINE AMINOTRANSFERASE 61 IU/L (10-60); AST ASPARTATE AMINOTRANSFERASE 47 IU/L (10-42); BILIRUBIN,TOTAL 0.5 mg/dL (0.2-1.0); BUN - BLOOD UREA NITROGEN 18 mg/dL (6-20); CARBON DIOXIDE - CO2 21 mmol/L (21-32); CHLORIDE 90 mmol/L (101-111); CK- CREATINE KINASE 308 IU/L (30-223); CREATININE 0.6 mg/dL (0.6-1.3); ETOH - ETHANOL < 10.0 mg/dL; GFR - MDRD 101 (>89); GLUCOSE 90 mg/dL (74-104); MAGNESIUM 1.4 mg/dL (1.7-2.3); POTASSIUM 4.2 mmol/L (3.5-4.5); SODIUM 122 mmol/L (135-145); TOTAL PROTEIN 7.9 g/dL (6.4-8.9)
[2023-12-16 05:53] LABS: LIPASE < 10 U/L (11-82)
[2023-12-16 05:54] LABS: SLIDE REVIEW? Indicated
[2023-12-16 05:57] LABS: SALICYLATE < 1.5 mg/dL
[2023-12-16 06:05] LABS: THYROID STIMULATING HORMONE 3.79 uIU/mL (0.34-5.60)
[2023-12-16 06:19] LABS: AMPHETAMINE SCREEN,URINE NEGATIVE (NEGATIVE); BARBITURATE SCREEN,UR NEGATIVE (NEGATIVE); BENZODIAZEPINES SCREEN, URINE NEGATIVE (NEGATIVE); BUPRENORPHINE SCREEN, URINE NEGATIVE (NEGATIVE); COCAINE SCREEN URINE NEGATIVE (NEGATIVE); METHADONE SCREEN, URINE NEGATIVE (NEGATIVE); METHAMPHETAMINES SCREEN, URINE NEGATIVE (NEGATIVE); OPIATE SCREEN, URINE NEGATIVE (NEGATIVE); OXYCODONE SCREEN, URINE NEGATIVE (NEGATIVE); THC CANNABINOID SCREEN, URINE NEGATIVE (NEGATIVE); TRICYCLIC ANTIDEPRESSANT,URINE NEGATIVE (NEGATIVE)
[2023-12-16] MEDS: SODIUM CHLORIDE 3% HYPERTONIC 100 ML IV SCH (06:20)
[2023-12-16 06:42] LABS: PLATELET MORPHOLOGY NORMAL APPEARANCE (NORMAL)
[2023-12-16 06:43] LABS: PLATELET ESTIMATE, MANUAL NORMAL (130-450,000) (NORMAL)
[2023-12-16] MEDS: ACETAMINOPHEN 325 MG TABLET PO STA (07:01)
[2023-12-16] MEDS: DEXAMETHASONE 10 MG/ML VIAL IVP STA (07:22)
[2023-12-16 07:50] LABS: THYROID STIMULATING HORMONE 3.67 uIU/mL (0.34-5.60)
[2023-12-16] MEDS: ONDANSETRON 4 MG/2 ML VIAL IVP STA (07:54)
[2023-12-16] MEDS: HYDROmorphone 1 MG/ML CARPUJECT IVP STA (07:55)
[2023-12-16] MEDS: SODIUM CHLORIDE 0.9% 1,000 ML IV STA (08:04)
--- NOTE | 2023-12-16 08:04 | ED Physician Documentation ---
ED Addendum - Addendum Addendum: 12/16/23 08:01 Ana M Wynn is left in my care at shift change awaiting admission to the hospital for hyponatremia and altered mental status. This morning I find the patient is akathetic appears to have some generalized pain and is requesting pain medication. Her indicates to me that she has had these episodes of akathisia prior to becoming comatose during prolonged hospitalizations and this was usually resolved with nutrition supported through an NG tube. The patient has a history of Crohn's disease she is found to be hyponatremic and has had prior doses of steroid over years. She is administered a dose of dexamethasone this morning for the potential of [place]'s causing her hyponatremia. I evaluated the patient at the bedside found her to have dry mucous membranes and she was very restless indicating she cannot stand the pain anymore. I evaluated the patient for volume depletion by interrogating the inferior vena cava with POCUS and found her to have a vessel of 1.2 cm indicating a deficit of 1 L. I felt compelled to replace this fluid. She is administered a liter of saline. She has been treated overnight with 2 boluses of hypertonic saline. We have administered 1/2 mg of Dilaudid and Zofran for pain control as well. 12/16/23 17:40 Impression: hyponatremia, altered LOC and dehydration. Plan : admission after treatment in the ED
[2023-12-16] MEDS ORDERED: MORPHINE 2 MG/ML CARPUJECT IVP PRN (11:03)
[2023-12-16] MEDS ORDERED: ONDANSETRON ODT 4 MG TABLET TL PRN (11:03)
[2023-12-16] MEDS ORDERED: ONDANSETRON 4 MG/2 ML VIAL IVP PRN (11:03)
[2023-12-16] MEDS ORDERED: SODIUM CHLORIDE FLUSH 0.9% 10 ML SYRINGE IVP PRN (11:03)
[2023-12-16] MEDS: SODIUM CHLORIDE 0.9% 1,000 ML IV SCH (12:16)
[2023-12-16] MEDS: SODIUM CHLORIDE FLUSH 0.9% 10 ML SYRINGE IVP SCH (12:17)
[2023-12-16] MEDS: ENOXAPARIN 40 MG/0.4 ML SYRINGE SUBQ SCH (12:25)
--- NOTE | 2023-12-16 13:23 | HISTORY & PHYSICAL EXAMINATION ---
Chief Complaint - Chief Complaint Chief Complaint: Hyponatremia, AMS, Insomnia. History of Present Illness - Admitted From Admitted From:: ER - History Obtained From Records Reviewed: ER records, [facility] History obtained from: Pt, Exam Limitations: None - History of Present Illness HPI Comment/Other: 63 YOF with a Hx of crohn's disease, colostomy bag, recent sepsis hospitalization in Jul 2023 presents with one week of decreased appetite, akathisia and insomnia. states pt is really picky with food and has not been eating very well for the past couple of days, thinks she may even suffer from an eating disorder. She has not slept for more than one hour the past couple of nights, has had a lot of akathisia. She wont stay still, has a lot of leg pain at night. indicates that she has had these episodes of akathisia prior to becoming comatose during prolonged hospitalizations and this was usually resolved with nutrition supported through NG tube feedings. is having a difficult time taking care of her at home. Most of the 's history is cursory and he feels that she is without major medical problems. He also downplays her history of alcohol abuse and she hasn't drank since 05/2023 after a seizure. With this episode there is no cough, sob, sore throat. Abd pain in the ER is not present now. No change in BM habits and denies urinary symptoms. Colostomy has been producing stool, no blood. In the ER today pt's blood work was found to show hyponatremia at 122, was given bolus 100cc of 3% saline in treatment and 1L of 0.9% saline fluid. She is administered a dose of dexamethasone this morning for the potential of [place]'s causing her hyponatremia. Pt was evaluated for volume depletion getting POCUS of inferior vena cava and found her to have a vessel of 1.2 cm indicating a deficit of 1 L per ER doc. She has also been given 1/2 mg of Dilaudid and Zofran for abd pain control as well. Pt was hospitalized in Jul for cervical spinal osteomyelitis, epidural abcess and sepsis 08/21 with Staph bacteremia, and then subsequent rehab. All took place over 4 months after blood cultures had tested positive for staph. She went from [facility] to [place] then from [facility] to [facility] since osteo and abcess progressed and had surgery there. Then went to SNF. DC delayed due to delirium requirng zyrexas. Discharged a week ago from [facility] in [place]. Has not had any fever, chills, N/V recently. History - Past Medical History Cardiovascular: reports: Hypertension (labile and meds dc'd after hypotension in hospital. now on losartan and amlodipine. ) Respiratory: reports: None. denies: Shortness of breath Neuro: reports: Peripheral neuropathy (thiamine def. ), Seizure disorder (w/alcohol withdrawal 2022. EEG 08/21 done for enceph w diffuse cerebral dysfunction), Other (warnicke's encephalopathy) Endocrine/Autoimmune: reports: None GI: reports: Chronic constipation, Crohn's disease (s/p colectomy and end ileostomy 1972, on humira x for while in hospital (last one 07/22). To connor Diaz MD 12/20 for next dose. 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 To see [facility] for urgent audiogram) Psych: reports: None Musculoskeletal: reports: None Derm: reports: None MRSA Hx?: Yes Other Past Medical History: alcohol abuse. chronic anemia, on ferrous sulfate and thiamine - Past Surgical History General: reports: Bowel surgery (colostomy bag ) /GENERAL DENTIST/OWNER: reports: section Derm: reports: Other - Family & Social History Family History Comment/Other: father prostate ca. mom alive, 93, has dementia. siblings with crohn's (2) Living arrangement: At home Living Situation: With spouse/s.o. Social History Notes: nonsmoker. chronic alcohol abuse until 05/2023. no recreational substances. now home w spouse in their own home - Substance History Use: Uses substance without health or social issues: NONE Use Issues: Other Abuse: Recurrent use of substance despite neg consequences: NONE Dependence: Experiences withdrawal or developed tolerances: NONE - POLST Patient has POLST: No POLST Status: Full Code Meds/Allgy - Home Medications Home Medications: Ambulatory Orders Medication Instructions Recorded Confirmed Ondansetron Odt [Zofran] 4 mg TL Q6H PRN #10 tablet 08/22/23 12/16/23 Ascorbic Acid [Vitamin C] 500 mg PO DAILY 12/16/23 12/16/23 Ferrous Sulfate [Feosol] 325 mg PO DAILY 12/16/23 12/16/23 Gabapentin [Neurontin] 300 mg PO DAILY PM 12/16/23 12/16/23 Losartan/Hydrochlorothiazide 0.5 tab PO BID 12/16/23 12/16/23 [Losartan-Hctz 100-12.5 mg Tab] QUEtiapine [SEROquel] 25 mg PO QPM #20 tablet 12/16/23 cephALEXin [Keflex] 500 mg PO Q6HR 12/16/23 12/16/23 hydrALAZINE [Apresoline] 10 mg PO BID 12/16/23 12/16/23 - Allergies Allergies/Adverse Reactions: Allergies Allergy/AdvReac Type Severity Reaction Status Date / Time Penicillins Allergy Anaphylaxis Verified 08/23/23 00:41 vancomycin Allergy Rash Verified 08/25/23 07:42 Review of Systems - Constitutional Constitutional: reports: Weakness, Poor appetite. denies: Fever, Chills - Eyes Eyes: denies: Blurred vision - Cardiovascular Cariovascular: denies: Chest pain - Respiratory Respiratory: denies: Cough, SOB at rest - Gastrointestinal Gastrointestinal: denies: Abdominal pain, Constipation, Nausea, Vomiting - Genitourinary Genitourinary: denies: Dysuria, Frequency, Urgency - Musculoskeletal Musculoskeletal: reports: Muscle pain (bilat legs) - Integumentary Integumentary: denies: Rash - Neurological Neurological: denies: Headache, Dizziness - Psychiatric Psychiatric: reports: Other (agitation). denies: Depression, Anxiety Prior Level of Functionality: walking with a walker. Right hand can now be used to feed herself. Left hand curled and not able to be used. Able to get up to BR w SBA using walker. Needs help w dressing. Exam - Vital Signs Reviewed Vital Signs: Yes Vital Signs: Vital Signs x48h Temp Pulse Pulse Resp BP BP Pulse Ox 12/16/23 11:52 36.3 C L 71 12 123/69 99 12/16/23 10:00 73 16 123/70 100 12/16/23 08:00 62 16 97/62 100 12/16/23 06:28 100 20 146/118 H 100 - Physical Exam General Appearance: positive: No acute distress Eyes Bilateral: positive: PERRL, EOMI. negative: Conjunctivae nml (mildly pale) ENT: positive: ENT inspection nml, Pharynx nml Neck: positive: Nml inspection Respiratory: positive: Chest non-tender, No respiratory distress, Breath sounds nml Cardiovascular: positive: Regular rate & rhythm, No murmur Peripheral Pulses: positive: 2+ Abdomen: positive: Non-tender, No organomegaly, No distention, Other (colostomy bag right abd) Back: negative: CVA tenderness (R), CVA tenderness (L) Skin: positive: Warm, Dry, Pallor. negative: Cyanosis Extremities: positive: Non-tender, No pedal edema, Other (Left hand curled and retracted at fingers.) Neurologic/Psychiatric: positive: Oriented x3, Motor nml (no fascicultions), Sensation nml, Mood/affect nml, Other (able to do conversation, cooperative, no agitation) Conclusion/Plan - Problem List (1) Hyponatremia Conclusion/Plan: Pt presented with insomnia, akathisea, decreased appetite. In ER pt had Na of 122, treated with 100cc bolus of 3% hypertonic X2 in the ER and 1L of nml 0.9% saline given as well. At this time seems to be less agitated. Plan: -1L of saline started. -Monitor NA levels and avoid quick increase. Check in 6 hours. -Nml diet. -Request records from [facility] from recent hospitalization. (2) Akathisia Conclusion/Plan: reports pt having akathisia for the past couple days, will not sit still, having difficult time sleeping at night. Pt had similar episodes during recent hospitalization that resolved with NG tube feedings. Pt today is not having any sx, is eating dinner comfortably. She states she has some deficits from recent neck infection that affect her ambulation, requires walker. (3) Decreased appetite Conclusion/Plan: Has not been wanting to eat for the past couple of days, and no clear reason as to why. No infection, no obstruction. thinks she may have a long standing eating disorder, she is having difficulty finding foods the pt will eat , she will nibble with food, yesterday for dinner pt was able to eat some soup. No N/V, fever, chills. Plan: -Order nml diet. -Monitor hyponatremia (see above). (4) Crohn disease Conclusion/Plan: Hx of crohns, has colostomy bag in place to RUQ, bag changed today by nurse. Abd exam is benign. Will reiterate need for connor Diaz MD for resuming her humira. Plan: -Monitor feedings and bag. Qualifiers: Gastrointestinal tract location: unspecified location (5) Chronic anemia Conclusion/Plan: from crohn's, from folate def, and we will continue thiamine and iron here. - Lab Results Lab results reviewed: Yes Fish Bones: 12/16/23 05:27 12/16/23 12:55 - Diagnostic Imaging Results Diagnostic Imaging Results: positive: Other (none done) Core Measures - Anticipated LOS I expect patient to be DC'd or transferred within 96 hours.: Yes - DVT/VTE - Prophylaxis VTE/DVT Prophylaxis med ordered at admit?: Yes
--- NOTE | 2023-12-16 14:39 | PHARMACY PROGRESS NOTE ---
- Best Possible Medication History Admit Date and Time: 12/16/23 1103 Processed by: Nursing Medications reviewed in ED?: Yes As the person ultimately responsible for medication therapy, providers are able to order a medication from an existing home medication list in [facility] via the "Reconcile Routine" prior to Confirmation of that medication by system support administrator. Such practice is discouraged except when the physician, in their clinical judgment, deems that a medical need exists for a medication without regard to previous use.
[2023-12-16] MEDS: oxyCODONE 5 MG TABLET PO PRN (16:55)
[2023-12-16] MEDS: GABAPENTIN 300 MG CAPSULE PO SCH (21:37)
[2023-12-16] MEDS: LOSARTAN 50 MG TABLET PO SCH (21:42)
[2023-12-16] MEDS: hydrALAZINE 10 MG TABLET PO SCH (21:42)
[2023-12-17 06:04] LABS: BASOPHILS % (AUTO) 0.5 %; EOSINOPHILS % (AUTO) 0.3 %; HCT - HEMATOCRIT 27.7 % (37.0-47.0); HGB - HEMOGLOBIN 8.8 g/dL (12.0-16.0); LYMPHOCYTES # (AUTO) 1.1 10^3/uL (1.5-3.5); LYMPHOCYTES % (AUTO) 26.4 %; MEAN CORPUSCULAR HEMOGLOBIN 30.3 pg (27.0-31.0); MEAN CORPUSCULAR HGB CONC 31.8 g/dL (32.0-36.0); MEAN CORPUSCULAR VOLUME 95.5 fL (81.0-99.0); MEAN PLATELET VOLUME 9.2 fL (7.9-10.8); MONOCYTES % (AUTO) 24.2 %; NEUTROPHILS # (AUTO) 1.9 10^3/uL (1.5-6.6); NEUTROPHILS % (AUTO) 48.3 %; PLT - PLATELET COUNT 279 10^3/uL (130-450); RED CELL DISTRIBUTION WIDTH 17.2 % (12.0-15.0)
[2023-12-17 06:40] LABS: ALBUMIN 3.1 g/dL (3.2-5.5); BILIRUBIN,TOTAL 0.3 mg/dL (0.2-1.0); CALCIUM 9.3 mg/dL (8.5-10.3); CREATININE 0.7 mg/dL (0.6-1.3); POTASSIUM 4.1 mmol/L (3.5-4.5); TOTAL PROTEIN 6.1 g/dL (6.4-8.9)
[2023-12-17] MEDS: FERROUS SULFATE 325 MG TABLET PO SCH (08:47)
[2023-12-17] MEDS: hydroCHLOROthiazide 12.5 MG CAPSULE PO SCH (08:47)
[2023-12-17 08:51] VITALS: BP 137/60; O2SAT 94
[2023-12-17] MEDS: ACETAMINOPHEN 325 MG TABLET PO PRN (09:49)
--- NOTE | 2023-12-17 10:32 | Discharge Plan ---
Discharge Plan Problem Reviewed?: Yes Disposition: Home, Self Care Condition: Fair Diet: Regular Activity Restrictions: Activity as Tolerated Shower Restrictions: No Driving Restrictions: No Health Concerns: You have had a very difficult year. You quit drinking in May and unfortunately had withdrawals resulting in seizures. Then in July you became very ill with a serious life-threatening infection that caused bone deterioration in your neck bones, renal failure, coma, and severe deterioration in your physical strength. You then went to a [facility] and have only been home a week. You are very picky about your diet. You and your think that you may have an eating disorder and that really interferes with your ability to eat well. Unfortunately that resulted in a low salt level in your bloodstream. That low salt level resulted in irritability, uncontrollable movement, insomnia, and some confusion. It was a very good thing you came to the emergency room and we were able to give you salt water into your veins to bring up the salt levels. You have now recovered. Plan of Treatment: Please see Diamante Yancey, your primary care provider, and follow-up to get blood work done to make sure that your salt level/sodium level stays normal. Please ask Ms Yancey to refer you to a therapist to discuss eating disorders. I am encouraging you to liberalize your salt intake. Although I respect your decision to not take too much caloric intake because you are afraid of overeating, do allow yourself to eat a normal amount of salt. Care Goals: You have only been home for a week. I think your current goal is to just enjoy being home with your , kids and grandkids. Continue to do therapy to get stronger. Please make sure you see a therapist to help you with your eating disorder. Assessment: Patient is alert, oriented to person place and time, no akathisia, normal speech patterns, lucid. Has been at the bedside is a strong advocate No Smoking: If you smoke, Please STOP! Call for help. Follow-up with: Amy Yancey ARNP [Primary Care Provider] -
--- NOTE | 2023-12-17 10:34 | DISCHARGE SUMMARY ---
Discharge Summary Admit Date: 12/16/23 Discharge Date: 12/17/23 Discharging Provider: Dr. Bobbi Awad Primary Care Provider: Diamante Yancey Code Status: Attempt Resuscitation Condition at Discharge: Fair Discharge Disposition: 01 Home, Self Care Discharge Facility Name: Home - DIAGNOSES Admission Diagnoses: Hyponatremia Conclusion: Pt presented with insomnia, akathisea, decreased appetite. Hyponatremic in the ER 122, treated with hypertonic solution, admitted for cont IV fluids and monito ring. Pt was able to eat full meals while admitted. Na now 139 after treatment. Pt is asymptomatic, no pain, SOB, N/V/D, A&O X3. Educated pt on consumption of NA at home, she has been avoiding salt due to concerns about negative health effects. This in combination with possible eating disorder has likely resulted in pt's hyponatremia. Akathisia Conclusion: reports pt having akathisia for the past couple days, will not sit still, having difficult time sleeping at night. Had similar episodes during recent hospitalization that resolved with NG tube feedings. She did not have any signs of akathisia while admitted, no restlessness or abnormal movements noted, slept well overnight, ate full meals. states she looks much improved now than how she presented. Feels comfortable taking her home. Decreased appetite Conclusion: Pt has not been wanting to eat for the past couple of days, no clear reason as to why. No signs of infection, no bowel changes, had abd pain in ER but none while admitted. thinks she may have a long standing eating disorder, pt exercises too much at home and does not consume enough calories, she is having difficulty finding foods she likes, per only nibbles at food. BMI here 19.6kg. Pt was able to eat full meals during stay, no N/V, abd pain. Feels that seeing a therapist will likely help with her eating disorder. Crohn disease Conclusion: Hx of crohns, has colostomy bag in place, bag changed here. Abd exam is benign. Will reiterate need for f/u w Joe CEDENO for resuming her humira. No complications with bag during stay. Chronic anemia Conclusion: Possibly from Crohn's disease, likely having folate deficiency, will continue thiamine and iron here. - HPI History of Present Illness: HPI Comment/Other: 63 YOF w/ Hx of crohn's, colostmy bag, recent hospitalization in jul 2023, with a couple days of decreased appetite, akathisia, insomnia was found to be hyponatremic in ER at 122, given bolus of hypertonic solution in ER and admitted for continuing IV fluids and monitoring. - HOSPITAL COURSE Hospital Course: Pt had a Na of 122 in ER, treated with 100cc bolus of 3% hypertonic solution X2 and 1L of nml 0.9% saline fluid. Continued IV fluids during admission. Na 12-17-23 is 139. Pt is asymptomatic during stay, no pain, SOB, N/V/D, A&O X3. Low sodium consumption and eating disorder likely contributing to hyponatremia. - ALLERGIES Allergies/Adverse Reactions: Allergies Allergy/AdvReac Type Severity Reaction Status Date / Time Penicillins Allergy Anaphylaxis Verified 08/23/23 00:41 vancomycin Allergy Rash Verified 08/25/23 07:42 - MEDICATIONS Home Medications: Ambulatory Orders Medication Instructions Recorded Confirmed Ondansetron Odt [Zofran Odt] 4 mg TL Q6H PRN #10 tablet 08/22/23 12/16/23 Ascorbic Acid [Vitamin C] 500 mg PO DAILY 12/16/23 12/16/23 Ferrous Sulfate [Feosol] 325 mg PO DAILY 12/16/23 12/16/23 Gabapentin [Neurontin] 300 mg PO DAILY PM 12/16/23 12/16/23 Losartan/Hydrochlorothiazide 0.5 tab PO BID 12/16/23 12/16/23 [Losartan-Hctz 100-12.5 mg Tab] cephALEXin [Keflex] 500 mg PO Q6HR 12/16/23 12/16/23 hydrALAZINE [Apresoline] 10 mg PO BID 12/16/23 12/16/23 - PHYSICAL EXAM AT DISCHARGE General Appearance: positive: No acute distress, Alert Eyes Bilateral: positive: EOMI ENT: positive: ENT inspection nml Neck: positive: Nml inspection Respiratory: positive: Chest non-tender, No respiratory distress, Breath sounds nml Cardiovascular: positive: Regular rate & rhythm, No murmur Peripheral Pulses: positive: 2+ Abdomen: positive: Non-tender, No organomegaly, No distention, Other (Colostomy bag in place ) Skin: positive: Color nml, Warm, Dry. negative: Cyanosis Extremities: positive: Non-tender, No pedal edema Neurologic/Psychiatric: positive: Oriented x3, Mood/affect nml - LABS Result Diagrams: 12/17/23 05:38 12/17/23 05:38 - SEPSIS Current Stage of Sepsis: Ruled out - TIME SPENT Time Spent in Discharge (Minutes): 45
[2023-12-17] MEDS ORDERED: MAGNESIUM OXIDE 400 MG TABLET PO SCH (11:00)
== END 2023-12-17 11:49 | disposition home or self-care (01) ==
LOC: ED 04:24 → MS2 11:03
PROVIDERS: ADMIT Specialist; ATTEND Specialist
DX: E87.1 Hypo-osmolality and hyponatremia (principal); G47.00 Insomnia, unspecified; R63.0 Anorexia; R45.1 Restlessness and agitation; K50.90 Crohn's disease, unspecified, without complications; E86.0 Dehydration; G25.71 Drug induced akathisia; T50.905A Adverse effect of unspecified drugs, medicaments and biological substances, initial encounter; I10 Essential (primary) hypertension; G62.9 Polyneuropathy, unspecified; M79.10 Myalgia, unspecified site; D63.8 Anemia in other chronic diseases classified elsewhere; D52.9 Folate deficiency anemia, unspecified; Z79.899 Other long term (current) drug therapy; Z80.42 Family history of malignant neoplasm of prostate; Z81.8 Family history of other mental and behavioral disorders; Z83.79 Family history of other diseases of the digestive system; Z90.49 Acquired absence of other specified parts of digestive tract; Z93.3 Colostomy status
CPT/HCPCS: 36415; 80053; 80143; 80179; 80306; 82077; 82140; 82310; 82533; 82550; 83690; 83735; 84295; 84443; 85025; 96361; 96372; 96374; 96375; 99285; A9270; G0378; J1170; J1650

== ENCOUNTER 2024-05-07 11:36 | Outpatient (CLI) | payer BC, OTHER ==
--- NOTE | 2024-05-07 18:22 | XRAY Report ---
PROCEDURE: Lumbar Spine 2-3V INDICATIONS: LUMBAR RADICULOPATHY TECHNIQUE: 3 views of the lumbar spine were acquired. COMPARISON: CT of abdomen and pelvis dated 08/23/2023. FINDINGS: Surgical change: None. Bones: 5 myb-yfo-asbewad vertebrae are present. There is 4 mm anterolisthesis of L4 on L5. No verteb ral body compression fractures. Degenerative endplate changes and bilateral facet arthrosis througho ut lower thoracic spine and lumbar spine is seen most notably at L5-S1 level. No suspicious bony lesi ons. Soft tissues: Overlying bowel gas pattern is normal. No suspicious soft tissue calcifications. IMPRESSION: Degenerative disc disease throughout visualized lower thoracic spine and lumbar spine. No acute compr ession fracture. 4 mm anterolisthesis of L5 on S1. Reviewed by: John Brown MD on 05/07/2024 6:20 PM PDT Approved by: John Brown MD on 05/07/2024 6:20 PM PDT Station ID: [id number]
== END 2024-05-07 11:37 | disposition home or self-care (01) ==
LOC: DI 11:36
DX: M51.16 Intervertebral disc disorders with radiculopathy, lumbar region (principal); M43.16 Spondylolisthesis, lumbar region

== ENCOUNTER 2024-05-12 22:03 | Inpatient (IN) | payer BC, OTHER ==
[2024-05-12 22:36] LABS: BASOPHILS % (AUTO) 0.5 %; EOSINOPHILS # (AUTO) 0.1 10^3/uL (0.0-0.7); EOSINOPHILS % (AUTO) 1.4 %; HCT - HEMATOCRIT 30.4 % (37.0-47.0); HGB - HEMOGLOBIN 10.8 g/dL (12.0-16.0); LYMPHOCYTES # (AUTO) 0.7 10^3/uL (1.5-3.5); LYMPHOCYTES % (AUTO) 12.2 %; MEAN CORPUSCULAR HEMOGLOBIN 29.4 pg (27.0-31.0); MEAN CORPUSCULAR HGB CONC 35.5 g/dL (32.0-36.0); MEAN CORPUSCULAR VOLUME 82.8 fL (81.0-99.0); MEAN PLATELET VOLUME 8.8 fL (7.9-10.8); MONOCYTES # (AUTO) 0.3 10^3/uL (0.0-1.0); MONOCYTES % (AUTO) 5.9 %; NEUTROPHILS # (AUTO) 4.4 10^3/uL (1.5-6.6); NEUTROPHILS % (AUTO) 79.8 %; PLT - PLATELET COUNT 201 10^3/uL (130-450); RED BLOOD COUNT 3.67 10^6/uL (4.20-5.40); RED CELL DISTRIBUTION WIDTH 11.4 % (12.0-15.0); WHITE BLOOD COUNT 5.6 x10^3/uL (4.8-10.8)
[2024-05-12 22:58] LABS: ALBUMIN 3.8 g/dL (3.2-5.5); ALBUMIN/GLOBULIN RATIO 1.3 (1.0-2.2); BILIRUBIN,TOTAL 0.3 mg/dL (0.2-1.0); CALCIUM 9.2 mg/dL (8.5-10.3); CREATININE 0.6 mg/dL (0.6-1.3); POTASSIUM 4.4 mmol/L (3.5-4.5); TOTAL PROTEIN 6.7 g/dL (6.4-8.9)
[2024-05-12] MEDS: SODIUM CHLORIDE 0.9% 1,000 ML IV STA (23:51)
--- NOTE | 2024-05-13 00:13 | ED Physician Documentation ---
History of Present Illness - Stated complaint Stated Complaint: AMS - Chief complaint Chief Complaint: General - History obtained from History obtained from: Family - Additonal information Additional information: The patient comes to the emergency department for chief complaint of altered mental status. The patient is accompanied by her who gives all the information as the patient is unable to even say her name. states that the patient has been becoming increasingly confused over the last several days but seem to get worse today. The patient has a history of staff aureus sepsis which resulted in a prolonged inpatient stay at [facility]. The patient went to rehab for a month afterward and has been home with her since. is sole caregiver. He states the patient ever since coming home does not have much of an appetite. He makes her pancake and 3 eggs every day and sometimes she eats and sometimes she does not. He states she is very picky and will only eat the pancake and eggs when she is hungry. He states that over the last few days, the patient has not really wanted to eat anything. She also has not been drinking much. The states that the patient came nearly back to her mental baseline after her prolonged ICU stay, but not entirely. It is hard to pin down exactly what changed after the ICU stay, however. The patient has been admitted previously for similar presentation in the setting of hyponatremia. She is not able to give any information. denies any falls. The patient was previously an alcoholic, but has not had any alcohol since returning home from her rehabilitation. PD PAST MEDICAL HISTORY - Past Medical History Past Medical History: Yes Cardiovascular: Hypertension Respiratory: None Neuro: Peripheral neuropathy, Seizure disorder, Other Endocrine/Autoimmune: None GI: Chronic constipation, Crohn's disease, Other STAPLE LASTER: None : None HEENT: Other Psych: None Musculoskeletal: None Derm: None - Past Surgical History Past Surgical History: Yes General: Bowel surgery /STAPLE LASTER: section Derm: Other - Present Medications Home Medications: Ambulatory Orders Medication Instructions Recorded Confirmed Ondansetron Odt [Zofran Odt] 4 mg TL Q6H PRN #10 tablet 08/22/23 12/16/23 Ascorbic Acid [Vitamin C] 500 mg PO DAILY 12/16/23 12/16/23 Ferrous Sulfate [Feosol] 325 mg PO DAILY 12/16/23 12/16/23 Gabapentin [Neurontin] 300 mg PO DAILY PM 12/16/23 12/16/23 Losartan/Hydrochlorothiazide 0.5 tab PO BID 12/16/23 12/16/23 [Losartan-Hctz 100-12.5 mg Tab] cephALEXin [Keflex] 500 mg PO Q6HR 12/16/23 12/16/23 hydrALAZINE [Apresoline] 10 mg PO BID 12/16/23 12/16/23 - Allergies Allergies/Adverse Reactions: Allergies Allergy/AdvReac Type Severity Reaction Status Date / Time Penicillins Allergy Anaphylaxis Verified 05/12/24 22:07 vancomycin Allergy Rash Verified 05/12/24 22:07 - Social History Does the pt smoke?: No Smoking Status: Never smoker Does the pt drink ETOH?: Yes Does the pt have substance abuse?: No - Immunizations Immunizations are current?: No Immunizations: TDAP >10years/unknown - POLST Patient has POLST: No POLST Status: Full Code PD ED PE NORMAL - Vitals Vital signs reviewed: Yes - General General: Well developed/nourished, Other (Awake, somewhat agitated but agreeable. Follows occasional commands.) - HEENT HEENT: Atraumatic, PERRL, EOMI, Moist mucous membranes - Neck Neck: Supple, no meningeal sign - Cardiac Cardiac: RRR, No murmur - Respiratory Respiratory: No respiratory distress, Clear bilaterally - Abdomen Abdomen: Soft, Non tender, Non distended - Derm Derm: Normal color, Warm and dry, No rash - Extremities Extremities: No deformity - Neuro Neuro: Other (Alert, no gross deficits except oriented x 0.) - Psych Psych: Normal mood, Normal affect Results - Vitals Vitals: Vital Signs - 24 hr 05/12/24 05/12/24 05/13/24 22:08 23:59 00:02 Temperature 36.8 C Heart Rate 64 76 73 Respiratory 16 16 18 Rate Blood Pressure 160/100 H 172/100 H O2 Saturation 100 96 97 05/13/24 00:44 Temperature Heart Rate 73 Respiratory 24 Rate Blood Pressure 154/100 H O2 Saturation 96 Oxygen O2 Source Room air - Labs Labs: Laboratory Tests 05/12/24 05/12/24 05/13/24 22:26 22:26 00:30 WBC 5.6 RBC 3.67 L Hgb 10.8 L Hct 30.4 L MCV 82.8 MCH 29.4 MCHC 35.5 RDW 11.4 L Plt Count 201 MPV 8.8 Neut # (Auto) 4.4 Lymph # (Auto) 0.7 L [place] # (Auto) 0.3 Eos # (Auto) 0.1 Baso # (Auto) 0.0 Absolute Nucleated RBC 0.00 Nucleated RBC % 0.0 Sodium 117 L* Potassium 4.4 Chloride 90 L Carbon Dioxide 21 Anion Gap 6.0 BUN 14 Creatinine 0.6 Estimated GFR (MDRD) 101 Glucose 100 Calcium 9.2 Total Bilirubin 0.3 AST 28 ALT 29 Alkaline Phosphatase 82 Total Protein 6.7 Albumin 3.8 Globulin 2.9 Albumin/Globulin Ratio 1.3 Lipase 16 Ethyl Alcohol < 10.0 PD Medical Decision Making - ED course Complexity details: reviewed old records, reviewed results, re-evaluated patient, considered differential, d/w family ED course: The patient was worked up with labs and treated with IV fluids. She was found to have a sodium of 117. Departure - Departure Disposition: 66 [facility] DC/Xfer Clinical Impression: Hyponatremia, Delirium Condition: Serious Forms: PCP List
[2024-05-13] MEDS: SODIUM CHLORIDE 3% HYPERTONIC 100 ML IV SCH (01:08)
[2024-05-13] MEDS: ONDANSETRON ODT 4 MG TABLET TL PRN (01:09)
[2024-05-13] MEDS: SODIUM CHLORIDE 0.9% 1,000 ML IV STA (01:13)
[2024-05-13] MEDS ORDERED: ONDANSETRON ODT 4 MG TABLET TL PRN (02:03)
[2024-05-13] MEDS ORDERED: ACETAMINOPHEN 325 MG TABLET PO PRN (02:03)
--- NOTE | 2024-05-13 02:28 | HISTORY & PHYSICAL EXAMINATION ---
Chief Complaint - Chief Complaint Chief Complaint: ams per History of Present Illness - History of Present Illness HPI Comment/Other: pt with ams over past several days without inciting factors. states pt has not been eating much at home. h/o same with hospitalization and has had prolonged hospitalization of several months d/t sepsis and had to be in rehab. no recent fevers reported. no falls. 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 mom alive, 93, has dementia. siblings with crohn's (2) Living Situation: With spouse/s.o. Social History Notes: nonsmoker. chronic alcohol abuse until 05/2023. no recreational substances. now home w spouse in their own home - Substance History Use: Uses substance without health or social issues: NONE - POLST Patient has POLST: No POLST Status: Full Code Meds/Allgy - Home Medications Home Medications: Ambulatory Orders Medication Instructions Recorded Confirmed Ondansetron Odt [Zofran Odt] 4 mg TL Q6H PRN #10 tablet 08/22/23 12/16/23 Ascorbic Acid [Vitamin C] 500 mg PO DAILY 12/16/23 12/16/23 Ferrous Sulfate [Feosol] 325 mg PO DAILY 12/16/23 12/16/23 Gabapentin [Neurontin] 300 mg PO DAILY PM 12/16/23 12/16/23 Losartan/Hydrochlorothiazide 0.5 tab PO BID 12/16/23 12/16/23 [Losartan-Hctz 100-12.5 mg Tab] cephALEXin [Keflex] 500 mg PO Q6HR 12/16/23 12/16/23 hydrALAZINE [Apresoline] 10 mg PO BID 12/16/23 12/16/23 - Allergies Allergies/Adverse Reactions: Allergies Allergy/AdvReac Type Severity Reaction Status Date / Time Penicillins Allergy Anaphylaxis Verified 05/12/24 22:07 vancomycin Allergy Rash Verified 05/12/24 22:07 Review of Systems - Other Findings Other Findings: unable to obtain d/t ams Exam - Vital Signs Vital Signs: Vital Signs x48h Temp Pulse Resp BP Pulse Ox 05/13/24 02:13 65 20 155/92 H 97 05/13/24 00:44 73 24 154/100 H 96 05/13/24 00:02 73 18 172/100 H 97 05/12/24 23:59 76 16 96 05/12/24 22:08 36.8 C 64 16 160/100 H 100 - Physical Exam Comments/Other: gen - awake, alert, disoriented, at bedside heent - eomi, nc/at heart - per ed charting lungs - per ed charting abd - per ed charting msk - no acute trauma neuro - disoriented, no focal deficits, restless Conclusion/Plan - Lab Results Fish Bones: 05/12/24 22:26 05/12/24 22:26 - Other Other Results/Comments: pt with - - toxic metabolic encephalopathy likely d/t hyponatremia (below) monitor Na levels UA pending no focal neuro deficits may need to consider head CT once pt is more calm (currently fidgety and restless) - hyponatremia with h/o same pt has had decreased po intake and is overall weak s/p dose of 3% saline monitor, avoid rapid correction aim for 4-6 mEq/L correction in 24 h - generalized weakness in setting of and d/t above fall precautions pt may need rehab eval f/u labs, neuro status further orders per clinical course
[2024-05-13 03:18] LABS: BASOPHILS % (AUTO) 0.4 %; EOSINOPHILS # (AUTO) 0.1 10^3/uL (0.0-0.7); EOSINOPHILS % (AUTO) 1.5 %; HCT - HEMATOCRIT 29.8 % (37.0-47.0); HGB - HEMOGLOBIN 10.1 g/dL (12.0-16.0); LYMPHOCYTES # (AUTO) 0.6 10^3/uL (1.5-3.5); LYMPHOCYTES % (AUTO) 11.3 %; MEAN CORPUSCULAR HEMOGLOBIN 28.2 pg (27.0-31.0); MEAN CORPUSCULAR HGB CONC 33.9 g/dL (32.0-36.0); MEAN CORPUSCULAR VOLUME 83.2 fL (81.0-99.0); MEAN PLATELET VOLUME 8.7 fL (7.9-10.8); MONOCYTES # (AUTO) 0.3 10^3/uL (0.0-1.0); MONOCYTES % (AUTO) 4.8 %; NEUTROPHILS # (AUTO) 4.3 10^3/uL (1.5-6.6); NEUTROPHILS % (AUTO) 81.8 %; PLT - PLATELET COUNT 204 10^3/uL (130-450); RED BLOOD COUNT 3.58 10^6/uL (4.20-5.40); RED CELL DISTRIBUTION WIDTH 11.3 % (12.0-15.0); WHITE BLOOD COUNT 5.2 x10^3/uL (4.8-10.8)
[2024-05-13] MEDS: oxyCODONE 5 MG TABLET PO PRN (03:33)
[2024-05-13] MEDS: SODIUM CHLORIDE FLUSH 0.9% 10 ML SYRINGE IVP PRN (03:34)
[2024-05-13 03:42] LABS: PHOSPHORUS 2.3 mg/dL (2.5-5.0)
[2024-05-13 03:43] LABS: CHOL/HDL RATIO 2.8 (<4.4); CHOLESTEROL 151 mg/dL; HDL CHOLESTEROL 54 mg/dL; LDL CHOLESTEROL,CALCULATED 44 mg/dL; LDL/HDL RATIO 0.8 (<4.4); TRIGLYCERIDES 264 mg/dL; VLDL CHOLESTEROL 53 mg/dL
[2024-05-13 03:58] LABS: CALCIUM, IONIZED 1.09 mmol/L (1.15-1.33); VBG PH 7.408 (7.31-7.41)
[2024-05-13 03:59] LABS: ALBUMIN 3.6 g/dL (3.2-5.5); ALBUMIN/GLOBULIN RATIO 1.3 (1.0-2.2); BILIRUBIN,TOTAL 0.4 mg/dL (0.2-1.0); CALCIUM 8.8 mg/dL (8.5-10.3); CREATININE 0.5 mg/dL (0.6-1.3); POTASSIUM 3.7 mmol/L (3.5-4.5); TOTAL PROTEIN 6.3 g/dL (6.4-8.9)
[2024-05-13 04:20] LABS: BILIRUBIN,URINE NEGATIVE (NEGATIVE); GLUCOSE, URINE (UA) NEGATIVE (NEGATIVE); KETONES,URINE (UA) TRACE mg/dL (NEGATIVE); LEUKOCYTE ESTERASE, URINE NEGATIVE (NEGATIVE); NITRITE,URINE NEGATIVE (NEGATIVE); OCCULT BLOOD,URINE NEGATIVE (NEGATIVE); PROTEIN,URINE NEGATIVE (NEGATIVE); UROBILINOGEN,URINE 0.2 (NORMAL) E.U./dL (NORMAL)
[2024-05-13 04:25] LABS: CLARITY,URINE CLEAR (CLEAR)
[2024-05-13] MEDS: MAGNESIUM SULFATE 2 GRAM 2 GM/50 ML BAG IV SCH (04:36)
[2024-05-13] MEDS: POTASSIUM CHLORIDE 20 MEQ TABLET PO ONE (04:36)
[2024-05-13] MEDS: NEUTRA-PHOS 250 MG TABLET PO SCH (04:36)
[2024-05-13] MEDS: MORPHINE 2 MG/ML CARPUJECT IVP PRN (04:37)
[2024-05-13] MEDS: HALOPERIDOL 5 MG/ML VIAL IVP ONE (06:08)
[2024-05-13] MEDS: oxyCODONE 5 MG TABLET PO STA (06:09)
[2024-05-13] MEDS: PANTOPRAZOLE 40 MG TABLET PO SCH (06:09)
[2024-05-13] MEDS: CALCIUM CARBONATE CHEW 500 MG TABLET PO SCH (07:04)
[2024-05-13] MEDS: LORazepam 2 MG/ML VIAL IVP PRN (07:53)
[2024-05-13] MEDS ORDERED: iohexoL-300 100 ML VIAL ONE (08:02)
[2024-05-13 08:18] LABS: ESTIMATED AVERAGE GLUCOSE 117 mg/dL (70-100); HEMOGLOBIN A1c% 5.7 % (4.27-6.07)
[2024-05-13] MEDS: HALOPERIDOL 5 MG/ML VIAL IM ONE (08:55)
--- NOTE | 2024-05-13 09:21 | XRAY Report ---
PROCEDURE: Chest 1V INDICATIONS: pna TECHNIQUE: One view of the chest was acquired. COMPARISON: 02/22/2022 FINDINGS: Surgical changes and devices: None. Lungs and pleura: No pleural effusions or pneumothorax. Lungs are clear. Stable elevation right h emidiaphragm with associated volume loss. Mediastinum: Mediastinal contours appear normal. Heart size is normal. Bones and chest wall: No suspicious bony lesions. Overlying soft tissues appear unremarkable. IMPRESSION: No acute cardiopulmonary process. Findings are concordant with preliminary interpretation provided by [facility]. Reviewed by: Tommy Diaz MD on 05/13/2024 8:20 AM VONNIE Approved by: Tommy Diaz MD on 05/13/2024 8:20 AM VONNIE Station ID: [id number]
[2024-05-13] MEDS: ASCORBIC ACID 500 MG TABLET PO SCH (10:30)
[2024-05-13] MEDS: hydrALAZINE 10 MG TABLET PO SCH (10:31)
[2024-05-13] MEDS: FERROUS SULFATE 325 MG TABLET PO SCH (10:31)
[2024-05-13] MEDS: SODIUM CHLORIDE FLUSH 0.9% 10 ML SYRINGE IVP SCH (10:31)
--- NOTE | 2024-05-13 11:13 | PHARMACY PROGRESS NOTE ---
- Best Possible Medication History Admit Date and Time: 05/13/24 0204 Processed by: Pharmacy Medications reviewed in ED?: No Medication History completed: Yes Patient Interview: Pt unable to participate Secondary Source(s): Prescription bottles, Spouse/Significant other (Patient's interviewed by pharmacy technician assistantWm), Insurance records As the person ultimately responsible for medication therapy, providers are able to order a medication from an existing home medication list in [facility] via the "Reconcile Routine" prior to Confirmation of that medication by client support consultant. Such practice is discouraged except when the physician, in their clinical judgment, deems that a medical need exists for a medication without regard to previous use.
--- NOTE | 2024-05-13 12:39 | PROVIDER PROGRESS NOTE ---
Assessment/Plan - Problem List (1) Acute metabolic encephalopathy Assessment/Plan: Unclear of etiology, however after speaking to appears to have had similar presentation in November of this year. Most likely relate to hyponatremia which is new vs new medication of methocarbamol vs opioid use. Ac cording to patient has had decreased po intake for the past several days, in addition having increased output from ostomy. Patient does have history of cervical osteomyelitis and epidural abscess. According to patient is not complaining of back pains, neck pains, in addition patient does not have elevated WBC and elevated temp. However with history will check CT head and CT spine, chest, abdomen and pelvis. Empirically started on levaquin, f/u cultures and trend temp. (2) Hyponatremia Assessment/Plan: Na 117 on admit, increased to 119, given bolus of hypertonic saline overnight, Na 129 approximately 15 hours later. No Uosm, Nathalie checked in ED. Patient started on DDAVP and free water. Will continue to monitor Na level later today and continue free water restriction. (3) Crohn disease Qualifiers: Gastrointestinal tract location: unspecified location (4) Chronic anemia Assessment/Plan: Most likely related to ACD from Crohn's disease. H/H has been stable from 1 year wo signs of GI bleed. Will check B12, folate and Fe studies, though do ubtful as anemia is normocytic. (5) Akathisia Assessment/Plan: Patient does have history of as documented in Nov 2023 visit. According to , symptoms resolved with NG tube and feedings however due to altered mental status will hold NG for now and f/u CT head. (6) Decreased appetite Assessment/Plan: Have confirmed with , similar presentation to that in Nov of this year. Most likely due to encephalopathy, will check CT head wo contrast. - Current Meds Current Meds: Current Medications Generic Name Dose Route Start Last Admin Trade Name Freq PRN Reason Stop Dose Admin Ascorbic Acid 500 mg 05/13/24 09:00 05/13/24 10:30 Ascorbic Acid 500 Mg Tablet PO Not Given DAILY FRANK Ferrous Sulfate 325 mg 05/13/24 09:00 05/13/24 10:31 Ferrous Sulfate 325 Mg Tablet PO Not Given DAILY FRANK Hydralazine HCl 10 mg 05/13/24 09:00 05/13/24 10:31 Hydralazine 10 Mg Tablet PO Not Given BID FRANK Lorazepam 0.5 mg 05/13/24 07:45 05/13/24 10:45 Lorazepam 2 Mg/Ml Vial IVP 0.5 mg Q2H PRN Administration Anxiety Morphine Sulfate 1 mg 05/13/24 02:03 05/13/24 10:10 Morphine 2 Mg/Ml Carpuject IVP 1 mg Q2HR PRN Administration Pain 8 to 10 Ondansetron HCl 4 mg 05/13/24 00:51 05/13/24 01:09 Ondansetron Odt 4 Mg Tablet TL 4 mg Q6H PRN Administration Nausea / Vomiting Oxycodone HCl 5 mg 05/13/24 02:03 05/13/24 03:33 Oxycodone 5 Mg Tablet PO 5 mg Q4HR PRN Administration Pain 5 to 7 Pantoprazole Sodium 40 mg 05/13/24 07:00 05/13/24 06:09 Pantoprazole 40 Mg Tablet PO 40 mg QDAC FRANK Administration Sodium Chloride 10 ml 05/13/24 09:00 05/13/24 10:31 Sodium Chloride Flush 0.9% 10 Ml Syringe IVP 10 ml 0100,0900,1700 FRANK Administration Sodium Chloride 10 ml 05/13/24 02:03 05/13/24 03:34 Sodium Chloride Flush 0.9% 10 Ml Syringe IVP 10 ml PRN PRN Administration NEEDED PER PROVIDER ORDERS - Lab Result Fish Bone Diagrams: 05/13/24 03:09 05/13/24 12:10 - Additional Planning Condition/Complexity: Improved Plan Discussed with:: Patient Time Spent: 31-60 minutes Objective Vital Signs: Vital Signs - 24 hr 05/12/24 05/12/24 05/13/24 22:08 23:59 00:02 Temperature 36.8 C Heart Rate 64 76 73 Heart Rate [ Monitoring electrodes] Respiratory 16 16 18 Rate Blood Pressure 160/100 H 172/100 H Blood Pressure [Right Brachial artery] O2 Saturation 100 96 97 05/13/24 05/13/24 05/13/24 00:44 02:13 02:52 Temperature Heart Rate 73 65 Heart Rate [ Monitoring electrodes] Respiratory 24 20 Rate Blood Pressure 154/100 H 155/92 H Blood Pressure 152/99 H [Right Brachial artery] O2 Saturation 96 97 05/13/24 05/13/24 05/13/24 03:56 04:00 05:00 Temperature 36.4 C L Heart Rate Heart Rate [ 63 63 62 Monitoring electrodes] Respiratory 18 19 21 Rate Blood Pressure Blood Pressure 154/104 H 166/99 H 175/112 H [Right Brachial artery] O2 Saturation 100 100 98 05/13/24 05/13/24 05/13/24 05:39 07:00 08:00 Temperature 35.9 C L Heart Rate Heart Rate [ 69 72 Monitoring electrodes] Respiratory 93 H 15 Rate Blood Pressure Blood Pressure 165/95 H 165/95 H 115/72 [Right Brachial artery] O2 Saturation 93 115 H 05/13/24 05/13/24 05/13/24 09:00 10:00 11:00 Temperature 36.2 C L 36.4 C L 36.4 C L Heart Rate Heart Rate [ 74 77 70 Monitoring electrodes] Respiratory 10 L 13 12 Rate Blood Pressure Blood Pressure 111/78 106/83 H 101/77 [Right Brachial artery] O2 Saturation 92 100 93 05/13/24 12:00 Temperature 36.2 C L Heart Rate Heart Rate [ 63 Monitoring electrodes] Respiratory 12 Rate Blood Pressure Blood Pressure 100/66 [Right Brachial artery] O2 Saturation 94 Oxygen O2 Source Room air I&O (Last 24 Hrs): Intake and Output Totals x24h 05/11/24 05/12/24 05/13/24 23:59 23:59 23:59 Intake Total 1350.000 Output Total 2560 Balance -1210 - Results Results: Laboratory Results WBC 5.2 x10^3/uL (4.8-10.8) 05/13/24 03:09 RBC 3.58 10^6/uL (4.20-5.40) L 05/13/24 03:09 Hgb 10.1 g/dL (12.0-16.0) L 05/13/24 03:09 Hct 29.8 % (37.0-47.0) L 05/13/24 03:09 MCV 83.2 fL (81.0-99.0) 05/13/24 03:09 MCH 28.2 pg (27.0-31.0) 05/13/24 03:09 MCHC 33.9 g/dL (32.0-36.0) 05/13/24 03:09 RDW 11.3 % (12.0-15.0) L 05/13/24 03:09 Plt Count 204 10^3/uL (130-450) 05/13/24 03:09 MPV 8.7 fL (7.9-10.8) 05/13/24 03:09 Neut # (Auto) 4.3 10^3/uL (1.5-6.6) 05/13/24 03:09 Lymph # (Auto) 0.6 10^3/uL (1.5-3.5) L 05/13/24 03:09 Lewis # (Auto) 0.3 10^3/uL (0.0-1.0) 05/13/24 03:09 Eos # (Auto) 0.1 10^3/uL (0.0-0.7) 05/13/24 03:09 Baso # (Auto) 0.0 10^3/uL (0.0-0.1) 05/13/24 03:09 Absolute Nucleated RBC 0.00 x10^3/uL 05/13/24 03:09 Nucleated RBC % 0.0 /100WBC 05/13/24 03:09 VBG pH 7.408 (7.31-7.41) 05/13/24 03:09 Ionized Calcium 1.09 mmol/L (1.15-1.33) L 05/13/24 03:09 Sodium 129 mmol/L (135-145) L 05/13/24 12:10 Potassium 3.7 mmol/L (3.5-4.5) 05/13/24 03:09 Chloride 91 mmol/L (101-111) L 05/13/24 03:09 Carbon Dioxide 21 mmol/L (21-32) 05/13/24 03:09 Anion Gap 7.0 (6-13) 05/13/24 03:09 BUN 11 mg/dL (6-20) 05/13/24 03:09 Creatinine 0.5 mg/dL (0.6-1.3) L 05/13/24 03:09 Estimated GFR (MDRD) 124 (>89) 05/13/24 03:09 Glucose 95 mg/dL (74-104) 05/13/24 03:09 Estimat Average Glucose 117 mg/dL (70-100) H 05/13/24 03:09 Hemoglobin A1c % 5.7 % (4.27-6.07) 05/13/24 03:09 Lactic Acid < 0.2 mmol/L (0.5-2.2) L 05/13/24 03:09 Calcium 8.8 mg/dL (8.5-10.3) 05/13/24 03:09 Phosphorus 2.3 mg/dL (2.5-5.0) L 05/13/24 03:09 Magnesium 1.0 mg/dL (1.7-2.3) L* 05/13/24 03:09 Total Bilirubin 0.4 mg/dL (0.2-1.0) 05/13/24 03:09 AST 25 IU/L (10-42) 05/13/24 03:09 ALT 25 IU/L (10-60) 05/13/24 03:09 Alkaline Phosphatase 76 IU/L (42-121) 05/13/24 03:09 Ammonia 32.6 umol/L (18-72) 05/13/24 03:09 Total Protein 6.3 g/dL (6.4-8.9) L 05/13/24 03:09 Albumin 3.6 g/dL (3.2-5.5) 05/13/24 03:09 Globulin 2.7 g/dL (2.1-4.2) 05/13/24 03:09 Albumin/Globulin Ratio 1.3 (1.0-2.2) 05/13/24 03:09 Triglycerides 264 mg/dL 05/13/24 03:09 Cholesterol 151 mg/dL (-200) 05/13/24 03:09 LDL Cholesterol, Calc 44 mg/dL (-129) 05/13/24 03:09 VLDL Cholesterol 53 mg/dL 05/13/24 03:09 HDL Cholesterol 54 mg/dL (60-) L 05/13/24 03:09 LDL/HDL Ratio 0.8 (<4.4) 05/13/24 03:09 Cholesterol/HDL Ratio 2.8 (<4.4) 05/13/24 03:09 Lipase 16 U/L (11-82) 05/12/24 22:26 Procalcitonin Immunoas < 0.05 ng/mL (<0.5) 05/13/24 03:09 TSH 4.90 uIU/mL (0.34-5.60) 05/13/24 03:09 Urine Color YELLOW 05/13/24 03:40 Urine Clarity CLEAR (CLEAR) 05/13/24 03:40 Urine pH 6.0 PH (5.0-7.5) 05/13/24 03:40 Ur Specific [place] 1.010 (1.002-1.030) 05/13/24 03:40 Urine Protein NEGATIVE mg/dL (NEGATIVE) 05/13/24 03:40 Urine Glucose (UA) NEGATIVE mg/dL (NEGATIVE) 05/13/24 03:40 Urine Ketones TRACE mg/dL (NEGATIVE) 05/13/24 03:40 Urine Occult Blood NEGATIVE (NEGATIVE) 05/13/24 03:40 Urine Nitrite NEGATIVE (NEGATIVE) 05/13/24 03:40 Urine Bilirubin NEGATIVE (NEGATIVE) 05/13/24 03:40 Urine Urobilinogen 0.2 (NORMAL) E.U./dL (NORMAL) 05/13/24 03:40 Ur Leukocyte Esterase NEGATIVE (NEGATIVE) 05/13/24 03:40 Ur Microscopic Review NOT INDICATED 05/13/24 03:40 Urine Culture Comments NOT INDICATED 05/13/24 03:40 Nasal Screen MRSA (PCR) NEGATIVE (NEGATIVE) 05/13/24 03:40 Ethyl Alcohol < 10.0 mg/dL 05/13/24 00:30 - Procedures Procedures: Procedures TRANSFUSE NONAUT PLATELETS IN PERIPH VEIN, PERC (08/23/23)
[2024-05-13] MEDS: DEXMEDETOMIDINE 400 MCG/100 ML 100 ML IV SCH (12:41)
[2024-05-13] MEDS: ENOXAPARIN 40 MG/0.4 ML SYRINGE SUBQ SCH (12:43)
[2024-05-13] MEDS: DEXTROSE 5% 1,000 ML IV SCH ×2 (12:48→21:35)
[2024-05-13] MEDS: DESMOPRESSIN 4 MCG/ML AMP IVP SCH (13:27)
[2024-05-13] MEDS: levoFLOXacin 750 MG/150 ML 750 MG/150 ML BAG IV SCH (15:27)
[2024-05-13] MEDS ORDERED: SODIUM CHLORIDE 0.9% 1,000 ML ONE (16:36)
[2024-05-13] MEDS: SODIUM CHLORIDE 0.9% 1,000 ML IV ONE (16:40)
[2024-05-13] MEDS ORDERED: HALOPERIDOL 5 MG/ML VIAL ONE (17:34)
[2024-05-13] MEDS: GABAPENTIN 100 MG CAPSULE PO SCH (17:47)
[2024-05-13 20:19] LABS: MAGNESIUM 1.8 mg/dL (1.7-2.3)
[2024-05-13 20:25] LABS: PHOSPHORUS 2.9 mg/dL (2.5-5.0)
[2024-05-13] MEDS ORDERED: ZINC OXIDE 20% OINT 30 GM TUBE TOP PRN (20:43)
[2024-05-13] MEDS: MAGNESIUM SULFATE 2 GRAM 2 GM/50 ML BAG IV ONE (21:28)
[2024-05-13] MEDS: HALOPERIDOL 5 MG/ML VIAL IM PRN (22:37)
[2024-05-14 06:03] LABS: CALCIUM, IONIZED 1.17 mmol/L (1.15-1.33); VBG PH 7.352 (7.31-7.41)
[2024-05-14 06:07] LABS: CALCIUM 8.3 mg/dL (8.5-10.3); CREATININE 0.5 mg/dL (0.6-1.3); PHOSPHORUS 2.1 mg/dL (2.5-5.0); POTASSIUM 3.3 mmol/L (3.5-4.5)
[2024-05-14 06:19] LABS: BASOPHILS % (AUTO) 0.5 %; HCT - HEMATOCRIT 21.6 % (37.0-47.0); HGB - HEMOGLOBIN 7.3 g/dL (12.0-16.0); MEAN CORPUSCULAR HEMOGLOBIN 28.6 pg (27.0-31.0); MEAN CORPUSCULAR HGB CONC 33.8 g/dL (32.0-36.0); MEAN CORPUSCULAR VOLUME 84.7 fL (81.0-99.0); MEAN PLATELET VOLUME 9.2 fL (7.9-10.8); MONOCYTES % (AUTO) 12.9 %; NEUTROPHILS % (AUTO) 74.6 %; PLT - PLATELET COUNT 155 10^3/uL (130-450); RED BLOOD COUNT 2.55 10^6/uL (4.20-5.40); RED CELL DISTRIBUTION WIDTH 11.6 % (12.0-15.0)
[2024-05-14 06:25] LABS: ABNORMAL LYMPHS % (MANUAL) 0 %
[2024-05-14] MEDS: MAGNESIUM SULFATE 2 GRAM 2 GM/50 ML BAG IV ONE (06:27)
[2024-05-14 06:45] LABS: BAND NEUTROPHILS % (MANUAL) 5 %; DIFFERENTIAL COMMENT MANUAL DIFFERENTIAL; LYMPHOCYTES # (MANUAL) 0.3 10^3/uL (1.5-3.5); LYMPHOCYTES % (MANUAL) 15 %; MONOCYTES # (MANUAL) 0.1 10^3/uL (0.0-1.0); NEUTROPHILS # (MANUAL) 1.6 10^3/uL (1.5-6.6); PLATELET ESTIMATE, MANUAL NORMAL (130-450,000) (NORMAL); RBC MORPHOLOGY (MULTIPLE) NORMAL APPEARANCE (NORMAL)
[2024-05-14 07:47] LABS: BASOPHILS % (AUTO) 0.4 %; EOSINOPHILS % (AUTO) 1.2 %; HCT - HEMATOCRIT 24.8 % (37.0-47.0); HGB - HEMOGLOBIN 8.5 g/dL (12.0-16.0); LYMPHOCYTES # (AUTO) 0.3 10^3/uL (1.5-3.5); LYMPHOCYTES % (AUTO) 11.3 %; MEAN CORPUSCULAR HEMOGLOBIN 29.4 pg (27.0-31.0); MEAN CORPUSCULAR HGB CONC 34.3 g/dL (32.0-36.0); MEAN CORPUSCULAR VOLUME 85.8 fL (81.0-99.0); MEAN PLATELET VOLUME 9.2 fL (7.9-10.8); MONOCYTES # (AUTO) 0.3 10^3/uL (0.0-1.0); MONOCYTES % (AUTO) 10.5 %; NEUTROPHILS % (AUTO) 76.6 %; PLT - PLATELET COUNT 149 10^3/uL (130-450); RED BLOOD COUNT 2.89 10^6/uL (4.20-5.40); RED CELL DISTRIBUTION WIDTH 11.9 % (12.0-15.0); WHITE BLOOD COUNT 2.6 x10^3/uL (4.8-10.8)
[2024-05-14 07:50] LABS: RBC MORPHOLOGY (MULTIPLE) 1+ ANISOCYTOSIS (NORMAL); SLIDE REVIEW? Indicated
[2024-05-14] MEDS: SODIUM PHOSPHATE 15 MMOL in SODIUM CHLORIDE 0.9% 250 ML IV ONE (09:06)
[2024-05-14] MEDS: POTASSIUM CHLOR 10 MEQ/100 ML 10 MEQ/100 ML BAG IV SCH (09:14)
--- NOTE | 2024-05-14 11:18 | PROVIDER PROGRESS NOTE ---
Assessment/Plan - Problem List (2) Hyponatremia Assessment/Plan: (1) Acute metabolic encephalopathy Assessment/Plan: Unclear of etiology, however after speaking to appears to have had similar presentation in November of this year. Today mentation is slightly improved however patient continues to want to get out of bed and requires a 1-1 sitter. Etiology most likely relate to hyponatremia but with improvement in Na patient continues to be confused. According to patient has had decreased po intake for the past several days, in addition having increased o utput from ostomy. Patient does have history of cervical osteomyelitis and epidural abscess but doubtful of infectious etiology as blood cultures have been negative, afebrile and WBC normal to low normal. According to patient is not complaining of back pains, neck pains, in addition patient does not have elevated WBC and elevated temp. However with history will check CT head and CT spine, chest, abdomen and pelvis. Continue empiric Levaquin and f/u cultures. Have placed a call for possible transfer to [facility]. Was informed that she is a [facility] patient and will have [facility] call when free. Also I have given out my cell phone for [facility] to call for possible transfer. (2) Hyponatremia Assessment/Plan: Na 119 on admit, increased to 129 after bolus of hypertonic saline overnight, given DDAVP and free water and this am Na 129. Continue free water restriction, trend Na (3) Crohn disease Qualifiers: Gastrointestinal tract location: unspecified location (4) Chronic anemia Assessment/Plan: Most likely related to ACD from Crohn's disease. H/H has been stable from 1 year wo signs of GI bleed. Will check B12, folate and Fe studies, though doubtful as anemia is normocytic. (5) Akathisia Assessment/Plan: Patient does have history of as documented in Nov 2023 visit. According to , symptoms resolved with NG tube and feedings however due to altered mental status will hold NG for now and f/u CT head. (6) Decreased appetite Assessment/Plan: Have confirmed with , similar presentation to that in Nov of this year. Most likely due to encephalopathy, will check CT head wo contrast. (3) Crohn disease Qualifiers: Gastrointestinal tract location: unspecified location - Current Meds Current Meds: Current Medications Generic Name Dose Route Start Last Admin Trade Name Freq PRN Reason Stop Dose Admin Ascorbic Acid 500 mg 05/13/24 09:00 05/14/24 08:59 Ascorbic Acid 500 Mg Tablet PO Not Given DAILY FRANK Desmopressin Acetate 2 mcg 05/13/24 13:00 05/14/24 05:23 Desmopressin 4 Mcg/Ml Amp IVP 2 mcg Q8H FRANK Administration Enoxaparin Sodium 40 mg 05/13/24 09:00 05/14/24 09:14 Enoxaparin 40 Mg/0.4 Ml Syringe SUBQ 40 mg DAILY FRANK Administration Ferrous Sulfate 325 mg 05/13/24 09:00 05/14/24 08:59 Ferrous Sulfate 325 Mg Tablet PO Not Given DAILY FRANK Haloperidol 5 mg 05/13/24 20:27 05/13/24 22:37 Haloperidol 5 Mg/Ml Vial IM 5 mg Q6H PRN Administration Agitation Hydralazine HCl 10 mg 05/13/24 09:00 05/14/24 08:59 Hydralazine 10 Mg Tablet PO Not Given BID FRANK Dexmedetomidine/Sodium Chloride 100 mls @ 2.5 mls/hr 05/13/24 13:00 05/14/24 08:30 Precedex Premix IV 0 mcg/kg/hr .Q40H FRANK 0 mls/hr Titration Protocol 0.2 MCG/KG/HR Levofloxacin 750 mg in 150 mls @ 100 mls/hr 05/13/24 15:00 05/13/24 17:00 Levaquin 750 Mg/150 Ml IV Infused Q24H FRANK Infusion Potassium Chloride 10 meq in 100 mls @ 100 mls/hr 05/14/24 08:00 05/14/24 10:12 Potassium Chloride IV 05/14/24 11:59 100 mls/hr Q1H FRANK Administration Protocol Sodium Phosphate 15 mmol/ 255 mls @ 63.75 mls/hr 05/14/24 10:00 05/14/24 09:06 Sodium Chloride IV 05/14/24 13:59 63.75 mls/hr ONCE ONE Administration Protocol Lorazepam 0.5 mg 05/13/24 07:45 05/14/24 03:25 Lorazepam 2 Mg/Ml Vial IVP 0.5 mg Q2H PRN Administration Anxiety Morphine Sulfate 1 mg 05/13/24 02:03 05/14/24 09:25 Morphine 2 Mg/Ml Carpuject IVP 1 mg Q2HR PRN Administration Pain 8 to 10 Pantoprazole Sodium 40 mg 05/13/24 07:00 05/14/24 06:19 Pantoprazole 40 Mg Tablet PO Not Given QDAC FRANK Sodium Chloride 10 ml 05/13/24 09:00 05/14/24 09:14 Sodium Chloride Flush 0.9% 10 Ml Syringe IVP 10 ml 0100,0900,1700 FRANK Administration Sodium Chloride 10 ml 05/13/24 02:03 05/13/24 03:34 Sodium Chloride Flush 0.9% 10 Ml Syringe IVP 10 ml PRN PRN Administration NEEDED PER PROVIDER ORDERS - Lab Result Fish Bone Diagrams: 05/14/24 07:41 05/14/24 05:33 - Additional Planning My Orders: My Active Orders 05/14/24 08:53 VITAMIN D 25-HYDROXY [REFLAB] Routine 05/15/24 16:00 BMP - BASIC METABOLIC PANEL [CHEM] Routine Objective Vital Signs: Vital Signs - 24 hr 05/13/24 05/13/24 05/13/24 12:00 13:00 14:00 Temperature 36.2 C L 35.7 C L 36.5 C Heart Rate [ 63 77 82 Monitoring electrodes] Respiratory 12 16 15 Rate Blood Pressure [Left Brachial artery] Blood Pressure [Right Ankle] Blood Pressure 100/66 97/67 100/50 L [Right Brachial artery] O2 Saturation 94 95 96 05/13/24 05/13/24 05/13/24 15:00 16:00 17:00 Temperature 36.7 C 37.0 C Heart Rate [ 79 75 91 Monitoring electrodes] Respiratory 12 16 18 Rate Blood Pressure [Left Brachial artery] Blood Pressure [Right Ankle] Blood Pressure 109/49 L 91/51 L 106/73 [Right Brachial artery] O2 Saturation 97 96 05/13/24 05/13/24 05/13/24 18:00 19:00 19:59 Temperature 36.8 C 36.6 C 37 C Heart Rate [ 65 67 69 Monitoring electrodes] Respiratory 10 L 9 L 9 L Rate Blood Pressure [Left Brachial artery] Blood Pressure 91/41 L [Right Ankle] Blood Pressure 114/75 [Right Brachial artery] O2 Saturation 94 95 98 05/13/24 05/13/24 05/13/24 20:59 21:05 21:49 Temperature 36 C L Heart Rate [ 56 L Monitoring electrodes] Respiratory 8 L Rate Blood Pressure 79/58 L 75/49 L 79/58 L [Left Brachial artery] Blood Pressure [Right Ankle] Blood Pressure [Right Brachial artery] O2 Saturation 97 05/13/24 05/13/24 05/13/24 21:59 22:32 23:00 Temperature 35.7 C L 36.3 C L Heart Rate [ 55 L 81 Monitoring electrodes] Respiratory 8 L 13 Rate Blood Pressure 74/42 L [Left Brachial artery] Blood Pressure [Right Ankle] Blood Pressure 121/90 H 135/70 H [Right Brachial artery] O2 Saturation 96 96 05/13/24 05/14/24 05/14/24 23:59 01:00 01:38 Temperature 36.2 C L 34.5 C L Heart Rate [ 64 53 L Monitoring electrodes] Respiratory 8 L 10 L Rate Blood Pressure [Left Brachial artery] Blood Pressure [Right Ankle] Blood Pressure 90/45 L 72/40 L 78/62 L [Right Brachial artery] O2 Saturation 96 97 05/14/24 05/14/24 05/14/24 02:00 02:59 04:00 Temperature 34.7 C L Heart Rate [ 50 L 70 49 L Monitoring electrodes] Respiratory 8 L 15 7 L Rate Blood Pressure [Left Brachial artery] Blood Pressure [Right Ankle] Blood Pressure 100/56 L 94/77 75/47 L [Right Brachial artery] O2 Saturation 97 96 96 05/14/24 05/14/24 05/14/24 04:59 05:16 06:00 Temperature 33.4 C L Heart Rate [ 48 L 54 L Monitoring electrodes] Respiratory 10 L 10 L Rate Blood Pressure [Left Brachial artery] Blood Pressure [Right Ankle] Blood Pressure 76/43 L 81/59 L 80/57 L [Right Brachial artery] O2 Saturation 96 95 05/14/24 05/14/24 05/14/24 06:58 08:00 09:00 Temperature 34.1 C L Heart Rate [ 51 L 52 L 72 Monitoring electrodes] Respiratory 8 L 12 16 Rate Blood Pressure 123/63 [Left Brachial artery] Blood Pressure [Right Ankle] Blood Pressure 91/48 L 112/60 [Right Brachial artery] O2 Saturation 96 94 99 05/14/24 10:00 Temperature Heart Rate [ 64 Monitoring electrodes] Respiratory 11 L Rate Blood Pressure 105/88 H [Left Brachial artery] Blood Pressure [Right Ankle] Blood Pressure [Right Brachial artery] O2 Saturation 98 Oxygen O2 Source Room air I&O (Last Hrs): Intake and Output Totals x24h 05/12/24 05/13/24 05/14/24 23:59 23:59 23:59 Intake Total 3272.521 1131.000 Output Total 4733 564 Balance -1460.479 567.000 - Results Results: Laboratory Results WBC 2.6 x10^3/uL (4.8-10.8) L 05/14/24 07:41 RBC 2.89 10^6/uL (4.20-5.40) L 05/14/24 07:41 Hgb 8.5 g/dL (12.0-16.0) L 05/14/24 07:41 Hct 24.8 % (37.0-47.0) L 05/14/24 07:41 MCV 85.8 fL (81.0-99.0) 05/14/24 07:41 MCH 29.4 pg (27.0-31.0) 05/14/24 07:41 MCHC 34.3 g/dL (32.0-36.0) 05/14/24 07:41 RDW 11.9 % (12.0-15.0) L 05/14/24 07:41 Plt Count 149 10^3/uL (130-450) 05/14/24 07:41 MPV 9.2 fL (7.9-10.8) 05/14/24 07:41 Neut # (Auto) 2.0 10^3/uL (1.5-6.6) 05/14/24 07:41 Lymph # (Auto) 0.3 10^3/uL (1.5-3.5) L 05/14/24 07:41 [place] # (Auto) 0.3 10^3/uL (0.0-1.0) 05/14/24 07:41 Eos # (Auto) 0.0 10^3/uL (0.0-0.7) 05/14/24 07:41 Baso # (Auto) 0.0 10^3/uL (0.0-0.1) 05/14/24 07:41 Absolute Nucleated RBC 0.00 x10^3/uL 05/14/24 07:41 Total Counted 100 05/14/24 05:33 Band Neuts % (Manual) 5 % (0-10) 05/14/24 05:33 Abnorm Lymph % (Manual) 0 % 05/14/24 05:33 Nucleated RBC % 0.0 /100WBC 05/14/24 07:41 Neutrophils # (Manual) 1.6 10^3/uL (1.5-6.6) 05/14/24 05:33 Lymphocytes # (Manual) 0.3 10^3/uL (1.5-3.5) L 05/14/24 05:33 Monocytes # (Manual) 0.1 10^3/uL (0.0-1.0) 05/14/24 05:33 Eosinophils # (Manual) 0.0 10^3/uL (0-0.7) 05/14/24 05:33 Basophils # (Manual) 0.0 10^3/uL (0-0.1) 05/14/24 05:33 Differential Comment MANUAL DIFFERENTIAL 05/14/24 05:33 Manual Slide Review Indicated 05/14/24 07:41 Platelet Estimate NORMAL (130-450,000) (NORMAL) 05/14/24 05:33 RBC Morph Micro Appear 1+ ANISOCYTOSIS (NORMAL) 05/14/24 07:41 VBG pH 7.352 (7.31-7.41) 05/14/24 05:33 Ionized Calcium 1.17 mmol/L (1.15-1.33) 05/14/24 05:33 Sodium 129 mmol/L (135-145) L 05/14/24 05:33 Potassium 3.3 mmol/L (3.5-4.5) L 05/14/24 05:33 Chloride 101 mmol/L (101-111) 05/14/24 05:33 Carbon Dioxide 24 mmol/L (21-32) 05/14/24 05:33 Anion Gap 4.0 (6-13) L 05/14/24 05:33 BUN 12 mg/dL (6-20) 05/14/24 05:33 Creatinine 0.5 mg/dL (0.6-1.3) L 05/14/24 05:33 Estimated GFR (MDRD) 124 (>89) 05/14/24 05:33 Glucose 102 mg/dL (74-104) 05/14/24 05:33 Estimat Average Glucose 117 mg/dL (70-100) H 05/13/24 03:09 Hemoglobin A1c % 5.7 % (4.27-6.07) 05/13/24 03:09 Lactic Acid < 0.2 mmol/L (0.5-2.2) L 05/13/24 03:09 Calcium 8.3 mg/dL (8.5-10.3) L 05/14/24 05:33 Phosphorus 2.1 mg/dL (2.5-5.0) L 05/14/24 05:33 Magnesium 2.0 mg/dL (1.7-2.3) 05/14/24 05:33 Total Bilirubin 0.4 mg/dL (0.2-1.0) 05/13/24 03:09 AST 25 IU/L (10-42) 05/13/24 03:09 ALT 25 IU/L (10-60) 05/13/24 03:09 Alkaline Phosphatase 76 IU/L (42-121) 05/13/24 03:09 Ammonia 32.6 umol/L (18-72) 05/13/24 03:09 Total Protein 6.3 g/dL (6.4-8.9) L 05/13/24 03:09 Albumin 3.6 g/dL (3.2-5.5) 05/13/24 03:09 Globulin 2.7 g/dL (2.1-4.2) 05/13/24 03:09 Albumin/Globulin Ratio 1.3 (1.0-2.2) 05/13/24 03:09 Triglycerides 264 mg/dL 05/13/24 03:09 Cholesterol 151 mg/dL (-200) 05/13/24 03:09 LDL Cholesterol, Calc 44 mg/dL (-129) 05/13/24 03:09 VLDL Cholesterol 53 mg/dL 05/13/24 03:09 HDL Cholesterol 54 mg/dL (60-) L 05/13/24 03:09 LDL/HDL Ratio 0.8 (<4.4) 05/13/24 03:09 Cholesterol/HDL Ratio 2.8 (<4.4) 05/13/24 03:09 Lipase 16 U/L (11-82) 05/12/24 22:26 Vitamin B12 354 pg/mL (180-914) 05/14/24 05:33 Folate 16.6 ng/mL (5.90 - >24.8) 05/14/24 05:33 Procalcitonin Immunoas < 0.05 ng/mL (<0.5) 05/13/24 03:09 TSH 4.90 uIU/mL (0.34-5.60) 05/13/24 03:09 Urine Color YELLOW 05/13/24 03:40 Urine Clarity CLEAR (CLEAR) 05/13/24 03:40 Urine pH 6.0 PH (5.0-7.5) 05/13/24 03:40 Ur Specific [place] 1.010 (1.002-1.030) 05/13/24 03:40 Urine Protein NEGATIVE mg/dL (NEGATIVE) 05/13/24 03:40 Urine Glucose (UA) NEGATIVE mg/dL (NEGATIVE) 05/13/24 03:40 Urine Ketones TRACE mg/dL (NEGATIVE) 05/13/24 03:40 Urine Occult Blood NEGATIVE (NEGATIVE) 05/13/24 03:40 Urine Nitrite NEGATIVE (NEGATIVE) 05/13/24 03:40 Urine Bilirubin NEGATIVE (NEGATIVE) 05/13/24 03:40 Urine Urobilinogen 0.2 (NORMAL) E.U./dL (NORMAL) 05/13/24 03:40 Ur Leukocyte Esterase NEGATIVE (NEGATIVE) 05/13/24 03:40 Ur Microscopic Review NOT INDICATED 05/13/24 03:40 Urine Culture Comments NOT INDICATED 05/13/24 03:40 Nasal Screen MRSA (PCR) NEGATIVE (NEGATIVE) 05/13/24 03:40 Ethyl Alcohol < 10.0 mg/dL 05/13/24 00:30 - Procedures Procedures: Procedures TRANSFUSE NONAUT PLATELETS IN PERIPH VEIN, PERC (08/23/23)
[2024-05-14] MEDS: KETOROLAC 30 MG/ML VIAL IVP PRN (14:49)
[2024-05-14 14:56] LABS: ALBUMIN 3.4 g/dL (3.2-5.5); ALBUMIN/GLOBULIN RATIO 1.4 (1.0-2.2); BILIRUBIN,TOTAL 0.3 mg/dL (0.2-1.0); CALCIUM 8.9 mg/dL (8.5-10.3); CREATININE 0.4 mg/dL (0.6-1.3); POTASSIUM 4.2 mmol/L (3.5-4.5); TOTAL PROTEIN 5.9 g/dL (6.4-8.9)
[2024-05-14] MEDS: cefTRIAXone 2 GM in SODIUM CHLORIDE 0.9% MINIBAG 100 ML IV SCH (16:07)
[2024-05-14] MEDS: LINEZOLID 600 MG/300 ML 600 MG/300 ML BAG IV SCH (16:18)
[2024-05-14] MEDS: ACYCLOVIR IV SCH (18:04)
[2024-05-14] MEDS: SODIUM CHLORIDE 0.9% IV SCH (18:04)
[2024-05-14] MEDS: THIAMINE INJ 500 MG in SODIUM CHLORIDE 0.9% 50 ML IV SCH (18:11)
[2024-05-14 20:38] VITALS: O2SAT 96
[2024-05-14] MEDS ORDERED: THIAMINE INJ 500 MG in SODIUM CHLORIDE 0.9% 50 ML IV SCH (22:00)
[2024-05-14 22:17] VITALS: BP 132/89
--- NOTE | 2024-05-15 07:05 | DISCHARGE SUMMARY ---
Discharge Summary Discharge Date: 05/14/24 Condition at Discharge: Serious Discharge Disposition: 02 Transfer Acute Care Hosp - DIAGNOSES Admission Diagnoses: acute metabolic enecphalopathy with delirium hyponatremia crohn's disease chornic anemia Discharge Diagnoses with Status of Each Condition: Hyponatremia Conclusion: Na 119 on admit, increased to 129 after bolus of hypertonic saline overnight, given DDAVP and free water. Na 129 at the time of transfer. Akathisia Conclusion: Uncertain of etiology, possibly due to medications. Patient unable to cooperate for any type of imaging. Needing restrains during hospitalization. Decreased appetite Conclusion: Pt has not been wanting to eat for the past couple of days, no clear reason as to why. No signs of infection, no bowel changes, had abd pain in ER but none while admitted. thinks she may have a long standing eating disorder, pt exercises too much at home and does not consume enough calories, she is having difficulty finding foods she likes, per only nibbles at food. BMI here 19.6kg. Pt was able to eat full meals during stay, no N/V, abd pain. Feels that seeing a therapist will likely help with her eating disorder. Crohn disease Conclusion: Hx of crohns, has colostomy bag in place. Stable, fu with GI to resume biologic when stable. Chronic anemia Conclusion: Possibly from Crohn's disease, H/H stable. - HPI History of Present Illness: pt with ams over past several days without inciting factors. states pt has not been eating much at home. h/o same with hospitalization and has had prolonged hospitalization of several months d/t sepsis and had to be in rehab. no recent fevers reported. no falls. - HOSPITAL COURSE Hospital Course: Patient initially admitted to the ICU due to hyponatremia and acute metabolic encephalopathy. Started on 3% hypertonic saline with improvement in Na however due to overcorrection given DDAVP and free water by hospitalist prior to seeing the patient. Na eventually remained stable at 129 however patient continued to have confusion and was unable to follow commands and kept trying to get out of bed. At times she was able to converse, state her name and state she was not having any headaches, neck stiffness. Low suspicion for infectious etiology as she remained afebrile, normal to low WBC, preliminary blood cultures had been negative. Empirically started on levaquin and switched to CFTX, linezolid and acyclovir for meningitis. Again no LP done and no imaging due to patient not being able to follow commands. Ultimately the patient was transfered out to [facility] due to lack of consultants and ICU at facility. - ALLERGIES Allergies/Adverse Reactions: Allergies Allergy/AdvReac Type Severity Reaction Status Date / Time Penicillins Allergy Anaphylaxis Verified 05/12/24 22:07 vancomycin Allergy Rash Verified 05/12/24 22:07 - MEDICATIONS Home Medications: Ambulatory Orders Medication Instructions Recorded Confirmed Ascorbic Acid [Vitamin C] 500 mg PO DAILY 12/16/23 05/13/24 Ferrous Sulfate [Feosol] 325 mg PO DAILY 12/16/23 05/13/24 Gabapentin [Neurontin] 300 mg PO 2200 12/16/23 05/13/24 Gabapentin [Neurontin] 100 mg PO 0600,1200,1800 05/13/24 05/13/24 Ibuprofen 400 mg PO DAILY PRN 05/13/24 05/13/24 methocarbamoL [Methocarbamol] 500 mg PO TID PRN 05/13/24 05/13/24 traMADol [Ultram] 50 mg PO DAILY PRN 05/13/24 05/13/24 - PHYSICAL EXAM AT DISCHARGE General Appearance: positive: Moderate distress Eyes Bilateral: positive: Normal inspection ENT: positive: ENT inspection nml Respiratory: positive: Chest non-tender, No respiratory distress Cardiovascular: positive: Regular rate & rhythm Abdomen: positive: Non-tender, Other (ostomy with stool) Extremities: positive: Non-tender Neurologic/Psychiatric: positive: Disoriented to person, Disoriented to place, Disoriented to time - LABS Result Diagrams: 05/14/24 07:41 05/14/24 14:31 - TIME SPENT Time Spent in Discharge (Minutes): 45
== END 2024-05-14 22:10 | disposition short-term general hospital (02) | DRG 640 ==
LOC: ED 22:03 → ICU 05-13 02:04
PROVIDERS: ADMIT Student in an Organized Health Care Education/Training Program; ATTEND Internal Medicine
DX: E87.1 Hypo-osmolality and hyponatremia (principal); G92.8 Other toxic encephalopathy; K50.90 Crohn's disease, unspecified, without complications; Z68.1 Body mass index [BMI] 19.9 or less, adult; G25.71 Drug induced akathisia; T50.915A Adverse effect of multiple unspecified drugs, medicaments and biological substances, initial encounter; D63.8 Anemia in other chronic diseases classified elsewhere; R63.0 Anorexia; R53.1 Weakness; I95.89 Other hypotension; Z78.1 Physical restraint status; T50.3X5A Adverse effect of electrolytic, caloric and water-balance agents, initial encounter; Y92.230 Patient room in hospital as the place of occurrence of the external cause; I10 Essential (primary) hypertension
CPT/HCPCS: 36415; 71045; 80048; 80053; 80061; 81003; 82077; 82140; 82306; 82330; 82607; 82746; 83036; 83605; 83690; 83735; 84100; 84132; 84145; 84295; 84443; 85025; 87040; 87150; A9270; J0133; J1650; J2020; J2060; J2597; Q0162; Q9967; 81001; 83721; 87086

== ENCOUNTER 2024-06-01 20:14 | Emergency (ER) | payer BC, OTHER ==
--- NOTE | 2024-06-01 20:31 | ED Physician Documentation ---
PD HPI DYSPNEA - Stated complaint Stated Complaint: BILAT LEG SWELLING - Chief complaint Chief Complaint: General - History obtained from History obtained from: Patient - History of Present Illness Timing - onset: How many days ago (has had increasing edema in both lower legs for past few days. No dyspnea, orthopnea, skin sores nor rash.) Timing - duration: Days Timing - details: Gradual onset, Still present Inciting event(s): Immobilization/travel (has been hospitalized for few weeks over the course of past couple months. Seen in office a week ago and Rx BP med of Losartan/HCTZ and noted edema start day or so after that. Has been less active and ambulatory at home as well.), Other. No: Out of meds Improved by: No: Sitting up Worsened by: No: Laying flat Associated symptoms: Bilateral edema. No: Wheezing Similar symptoms before: Has not had sx before Recently seen: Clinic (office about a week ago and started on losartan/HCTZ. previously had been on losartan in past few months.) Review of Systems Cardiac: reports: Pedal edema. 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 : None HEENT: Other Psych: None Musculoskeletal: None Derm: None - Past Surgical History Past Surgical History: Yes General: Bowel surgery /BREAKFAST AND ROOM ATTENDANT: section Derm: Other - Present Medications Home Medications: Ambulatory Orders Medication Instructions Recorded Confirmed Ascorbic Acid [Vitamin C] 500 mg PO DAILY 12/16/23 05/13/24 Ferrous Sulfate [Feosol] 325 mg PO DAILY 12/16/23 05/13/24 Gabapentin [Neurontin] 300 mg PO 2200 12/16/23 05/13/24 Gabapentin [Neurontin] 100 mg PO 0600,1200,1800 05/13/24 05/13/24 Ibuprofen 400 mg PO DAILY PRN 05/13/24 05/13/24 methocarbamoL [Methocarbamol] 500 mg PO TID PRN 05/13/24 05/13/24 traMADol [Ultram] 50 mg PO DAILY PRN 05/13/24 05/13/24 - Allergies Allergies/Adverse Reactions: Allergies Allergy/AdvReac Type Severity Reaction Status Date / Time Penicillins Allergy Anaphylaxis Verified 06/01/24 20:24 vancomycin Allergy Rash Verified 06/01/24 20:24 methocarbamol AdvReac Dizziness Verified 06/01/24 20:24 - Social History Does the pt smoke?: No Smoking Status: Never smoker Does the pt drink ETOH?: Yes Does the pt have substance abuse?: No - Immunizations Immunizations are current?: No Immunizations: TDAP >10years/unknown - POLST Patient has POLST: No POLST Status: Full Code PD ED PE NORMAL - Vitals Vital signs reviewed: Yes (normal sats. BP elevated initially) - General General: Alert and oriented X 3, No acute distress, Well developed/nourished - Neck Neck: Supple, no meningeal sign, No adenopathy, No JVD - Cardiac Cardiac: RRR, No murmur - Respiratory Respiratory: No respiratory distress, Clear bilaterally (no crackles nor wet sounds. ) - Abdomen Abdomen: Soft, Non tender - Derm Derm: Normal color, Warm and dry - Extremities Extremities: No calf tenderness / cord, Other (1-2+ edema in both lower legs, right slightly more, going up to the knees both sides. No calf tenderness. ) Results - Vitals Vitals: Oxygen O2 Source Room air - Labs Labs: Laboratory Tests 06/01/24 06/01/24 06/01/24 21:14 21:14 21:14 WBC 3.6 L RBC 2.99 L Hgb 8.5 L Hct 27.1 L MCV 90.6 MCH 28.4 MCHC 31.4 L RDW 14.7 Plt Count 343 MPV 8.8 Neut # (Auto) 2.4 Lymph # (Auto) 0.8 L [place] # (Auto) 0.3 Eos # (Auto) 0.1 Baso # (Auto) 0.1 Absolute Nucleated RBC 0.00 Nucleated RBC % 0.0 Sodium 131 L Potassium 4.5 Chloride 104 Carbon Dioxide 20 L Anion Gap 7.0 BUN 21 H Creatinine 0.6 Estimated GFR (MDRD) 101 Glucose 83 Calcium 9.9 Phosphorus 3.8 Magnesium 1.3 L Total Bilirubin 0.3 AST 27 ALT 30 Alkaline Phosphatase 75 B-Natriuretic Peptide 23 Total Protein 6.3 L Albumin 3.9 Globulin 2.4 Albumin/Globulin Ratio 1.6 Lipase 11 - Rads (name of study) duplex US legs Relevant Findings:: Prelim report reviewed (no DVTs. Bilateral small fluid collections periarticular c/w small Bakers cysts. ), EMP independent interp retation of test chest xray Relevant Findings:: Prelim report reviewed (no CHF; normal heart size. ), EMP independent interpretation of test PD Medical Decision Making - ED course Complexity details: reviewed results, considered differential (bilateral leg edema. Comorbidities and recent hospitalizations necessitate evaluation for heart failure, kidney failure, DVTs, anemia, elecrolyte problems in addition to just usual considerations of dependent edema and less leg muscle activity. ), d/w patient Reviewed Lab Results: renal function is good as is BNP. baseline anemia unchanged recently with Hgb 8.5. CXR clear and lung sounds, without signs of CHF/right heart failure. US showing no DVTs. Serum protein and albumin are normal (6.3 vs normal range starts 6.4 on protein). would not be c/w nephrotic syndrome (did not get UA). Presume is dependent edema and she has not been very active the past month or more. ENcouraged to do foot and lower leg exercises, up more for short walks, elevate legs, and compressive socks. BP elevated for EMS and intially here and has gone down to 171/99. She states BP was good in office recently at 140s ssytolic and was normal in recent hospitalization. Started med of Losartan /HCTZ a week ago. Would be unusual for these to cause edema (unlike calcium blockers for example), but still timing is coincidental. Can have her hold the new med. Script log from [email or web address] shows Amlodipine 5 mg daily Rx in February, but that was not in patient's bag of meds she brought with her. \This might have been suspect as a calcium di, but apparently is not taking it currently. Given the patient typically has good BP, even recently in office of 140s systolic per pt, I don't feel there will be a problem holding her BP med for a week or so to see how symptoms and trend do. Departure - Departure Disposition: 01 Home, Self Care Clinical Impression: Leg edema Condition: Stable Record reviewed to determine appropriate education?: Yes Comments: Your kidney function is good and your electrolytes are fairly normal. Your sodium is slightly low but much better than it was last week. Other electrolytes are good. No signs of heart failure based on x-ray and blood test. Your ultrasound did not show any signs of blood clots. At this point no obvious more serious cause for the swelling. It may be just a gravity effect and the return circulation may be slightly impaired. I would be sure to elevate and rest your legs often and try some compression socks or wraps. Given the starting of the blood pressure medicine just prior to the swelling, you could consider side effect of the blood pressure medicine. The losartan and hydrochlorothiazide is not a common medication to be causing swelling in the legs unlike some other classes of blood pressure medicine. However the timing is suspicious and so I would hold your losartan/HCTZ for now. If you are able to check your blood pressure at home daily or twice daily over the next week. Follow-up with your primary care as planned we could even call and talk to them on Monday to update on how you are doing. If your blood pressure more to be somewhat elevated, your primary may consider resuming the losartan without the hydrochlorothiazide and just see if it is that medication or not. It seems less likely since he had been on it just a few months ago but your metabolism may be changed. Tylenol if needed for pains. Continue your other usual medicines. Forms: PCP List Discharge Date/Time: 06/01/24 23:26
[2024-06-01 20:34] VITALS: O2SAT 100
[2024-06-01 21:19] LABS: BASOPHILS # (AUTO) 0.1 10^3/uL (0.0-0.1); BASOPHILS % (AUTO) 1.4 %; EOSINOPHILS # (AUTO) 0.1 10^3/uL (0.0-0.7); EOSINOPHILS % (AUTO) 3.6 %; HCT - HEMATOCRIT 27.1 % (37.0-47.0); HGB - HEMOGLOBIN 8.5 g/dL (12.0-16.0); LYMPHOCYTES # (AUTO) 0.8 10^3/uL (1.5-3.5); LYMPHOCYTES % (AUTO) 21.8 %; MEAN CORPUSCULAR HEMOGLOBIN 28.4 pg (27.0-31.0); MEAN CORPUSCULAR HGB CONC 31.4 g/dL (32.0-36.0); MEAN CORPUSCULAR VOLUME 90.6 fL (81.0-99.0); MEAN PLATELET VOLUME 8.8 fL (7.9-10.8); MONOCYTES # (AUTO) 0.3 10^3/uL (0.0-1.0); MONOCYTES % (AUTO) 6.9 %; NEUTROPHILS # (AUTO) 2.4 10^3/uL (1.5-6.6); PLT - PLATELET COUNT 343 10^3/uL (130-450); RED BLOOD COUNT 2.99 10^6/uL (4.20-5.40); RED CELL DISTRIBUTION WIDTH 14.7 % (12.0-15.0); WHITE BLOOD COUNT 3.6 x10^3/uL (4.8-10.8)
[2024-06-01 21:37] LABS: ALBUMIN 3.9 g/dL (3.2-5.5); ALBUMIN/GLOBULIN RATIO 1.6 (1.0-2.2); BILIRUBIN,TOTAL 0.3 mg/dL (0.2-1.0); CALCIUM 9.9 mg/dL (8.5-10.3); CREATININE 0.6 mg/dL (0.6-1.3); MAGNESIUM 1.3 mg/dL (1.7-2.3); PHOSPHORUS 3.8 mg/dL (2.5-5.0); POTASSIUM 4.5 mmol/L (3.5-4.5); TOTAL PROTEIN 6.3 g/dL (6.4-8.9)
--- NOTE | 2024-06-01 21:45 | XRAY Report ---
PROCEDURE: Chest 1V INDICATIONS: bilat leg edema TECHNIQUE: One view of the chest was acquired. COMPARISON: 05/13/2024 FINDINGS: Surgical changes and devices: None. Lungs and pleura: No pleural effusions or pneumothorax. Lungs are clear. Mediastinum: Mediastinal contours appear normal. Heart size is normal. Bones and chest wall: No suspicious bony lesions. Overlying soft tissues appear unremarkable. IMPRESSION: No acute cardiopulmonary findings Reviewed by: Jermaine Bishop MD on 06/01/2024 8:43 PM AKDT Approved by: Jermaine Bishop MD on 06/01/2024 8:43 PM AKDT Station ID: [id number]
--- NOTE | 2024-06-01 22:10 | Ultrasound Report ---
PROCEDURE: Duplex Ext Veins Bilateral INDICATIONS: recent hospitalization; klever lower edema TECHNIQUE: Real-time imaging, as well as color and pulse Doppler interrogation, were performed of the deep veins of both legs from the inguinal ligament to the popliteal fossa. Attempted visualization of the calf veins was performed. COMPARISON: None FINDINGS: The deep veins are normally compressible, and free of intraluminal thrombus. Color and pu lse Doppler demonstrate normal phasic intravascular flow. There is normal augmentation response to d istal compression maneuver. The study is limited by patient's inability to cooperate with the exam IMPRESSION: No deep venous thrombosis of the visualized lower extremities. 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
[2024-06-01 23:31] VITALS: BP 170/111
== END 2024-06-01 23:26 | disposition home or self-care (01) ==
LOC: ED 20:14
DX: R60.0 Localized edema (principal); I10 Essential (primary) hypertension; G62.9 Polyneuropathy, unspecified; K50.90 Crohn's disease, unspecified, without complications; Z79.899 Other long term (current) drug therapy
CPT/HCPCS: 36415; 80053; 83690; 83735; 83880; 84100; 85025; 93970; 99284

== ENCOUNTER 2024-06-06 19:40 | Emergency (ER) | payer BC ==
[2024-06-06 20:04] VITALS: O2SAT 99
--- NOTE | 2024-06-06 20:27 | ED Physician Documentation ---
History of Present Illness - Stated complaint Stated Complaint: LT HAND LAC - Chief complaint Chief Complaint: Laceration - Additonal information Additional information: Patient is a 64-year-old female who presents to the emergency department with abrasion to left distal index finger. Patient cut her hand on some scissors a few days ago. She is washed her hands today and thought she saw pus come out of it. Patient denies any fevers chills redness swelling no difficulty flexing her finger. She is left-handed. Patient has no history of immunocompromise. She is not on any steroids no history of diabetes. 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 : None HEENT: Other Psych: None Musculoskeletal: None Derm: None - Past Surgical History Past Surgical History: Yes General: Bowel surgery /ADMINISTRATIVE NURSING SUPERVISOR: section Derm: Other - Present Medications Home Medications: Ambulatory Orders Medication Instructions Recorded Confirmed Ascorbic Acid [Vitamin C] 500 mg PO DAILY 12/16/23 05/13/24 Ferrous Sulfate [Feosol] 325 mg PO DAILY 12/16/23 05/13/24 Gabapentin [Neurontin] 300 mg PO 2200 12/16/23 05/13/24 Gabapentin [Neurontin] 100 mg PO 0600,1200,1800 05/13/24 05/13/24 traMADol [Ultram] 50 mg PO DAILY PRN 05/13/24 05/13/24 Bacitracin Zinc Oint 1 applic TOP BID #1 each 06/06/24 - Allergies Allergies/Adverse Reactions: Allergies Allergy/AdvReac Type Severity Reaction Status Date / Time Penicillins Allergy Anaphylaxis Verified 06/06/24 19:54 vancomycin Allergy Rash Verified 06/06/24 19:54 methocarbamol AdvReac Dizziness Verified 06/06/24 19:54 - Social History Does the pt smoke?: No Smoking Status: Never smoker Does the pt drink ETOH?: Yes Does the pt have substance abuse?: No - Immunizations Immunizations are current?: No Immunizations: TDAP >10years/unknown - POLST Patient has POLST: No POLST Status: Full Code PD ED PE NORMAL - Vitals Vital signs reviewed: Yes - General General: Alert and oriented X 3 - HEENT HEENT: Atraumatic - Neck Neck: Supple, no meningeal sign - Cardiac Cardiac: RRR, No murmur, No gallop - Respiratory Respiratory: No respiratory distress, Clear bilaterally - Derm Derm: Other (Less than 1 mm abrasion noted to middle phalanx of left index finger. No active bleeding no swelling no discharge no erythema full range of motion and sensation intact to distal digit.) Results - Vitals Vitals: Oxygen O2 Source Room air PD Medical Decision Making - ED course Complexity details: reviewed results, re-evaluated patient ED course: Discussed with patient who presents to the emergency department with past medical history and symptoms as listed above presents with left index less than 1 mm abrasion to middle phalanx. Patient had concern for small amount of pus that was discharged when she was washing his today. She notes she cut her finger with scissors a few days ago. Discussed with patient no significant depth to wound wound appears to have been scabbed over less than 1 mm no acute intervention needed at this time. Patient can place topical antibiotic and will send bacitracin cream to her pharmacy for further treatment. Instructed patient to watch for any difficulty bending or flexing finger watch for any redness swelling fevers discharge. Patient understands and is agreeable with this plan. Departure - Departure Disposition: 01 Home, Self Care Clinical Impression: Abrasion of left index finger Condition: Good Prescriptions: Bacitracin Zinc Oint 1 applic TOP BID #1 each Comments: Your workup here was reassuring I have sent topical antibiotic to your pharmacy you need to watch for any worsening discharge any difficulty moving your finger any severe redness or streaking or along your finger return to the emergency department.Keep wound clean dry change dressing tomorrow. Forms: PCP List Discharge Date/Time: 06/06/24 20:39
[2024-06-06] MEDS: lidocaine 1% 20 ML MDV SUBQ ONE (20:31)
[2024-06-06] MEDS: BACITRACIN ZINC OINT 1 PACKET TOP STA (20:31)
[2024-06-06 20:46] VITALS: BP 191/90
== END 2024-06-06 20:39 | disposition home or self-care (01) ==
LOC: ED 19:40
DX: S60.411A Abrasion of left index finger, initial encounter (principal); W27.2XXA Contact with scissors, initial encounter; I10 Essential (primary) hypertension; K50.90 Crohn's disease, unspecified, without complications; G62.9 Polyneuropathy, unspecified; Z79.899 Other long term (current) drug therapy
CPT/HCPCS: 99283; A9270

== ENCOUNTER 2024-06-10 18:28 | Emergency (ER) | payer BC ==
--- NOTE | 2024-06-10 21:03 | ED Physician Documentation ---
History of Present Illness - Stated complaint Stated Complaint: HIGH BP/MATUTE - Chief complaint Chief Complaint: Neuro - History obtained from History obtained from: Patient - History of Present Illness Timing: How many years ago - Additonal information Additional information: HPI from patient. Patient's chief concern is "really high blood pressure" (per patient); she checks her BP on a daily basis and says her baseline is around 140's/80's but today was as high as 210/121. However, she then indicates she has had blood pressures above her baseline for few weeks for which she was recently prescribed losartan (this past ). She was admitted to [facility] 05/13/24 for AMS and hyponatremia. She says she increased her sodium intake since then, but that when she recently followed up with PCP, she was told (by PCP) that she was taking far too much sodium and advised to decrease her sodium intake. Patient also has several other c/o: BLE swelling and bilateral hand/finger swelling x few days, generalized headache x today, episode of chest pain this morning but resolved, generalized abdominal pain which she says feels like a Crohn's flare, episodic palpitations and dizziness x 1-2 days, back pain c/w her sciatica. PD PAST MEDICAL HISTORY - Past Medical History Cardiovascular: Hypertension Respiratory: None Neuro: Peripheral neuropathy, Seizure disorder, Other Endocrine/Autoimmune: None GI: Chronic constipation, Crohn's disease, Other QA INTERN: None : None HEENT: Other Psych: None Musculoskeletal: None Derm: None - Past Surgical History Past Surgical History: Yes General: Bowel surgery /QA INTERN: section Derm: Other - Present Medications Home Medications: Ambulatory Orders Medication Instructions Recorded Confirmed Ascorbic Acid [Vitamin C] 500 mg PO DAILY 12/16/23 05/13/24 Ferrous Sulfate [Feosol] 325 mg PO DAILY 12/16/23 05/13/24 Gabapentin [Neurontin] 300 mg PO 2200 12/16/23 05/13/24 Gabapentin [Neurontin] 100 mg PO 0600,1200,1800 05/13/24 05/13/24 traMADol [Ultram] 50 mg PO DAILY PRN 05/13/24 05/13/24 Bacitracin Zinc Oint 1 applic TOP BID #1 each 06/06/24 Furosemide [Lasix] 40 mg PO DAILY #5 tablet 06/11/24 - Allergies Allergies/Adverse Reactions: Allergies Allergy/AdvReac Type Severity Reaction Status Date / Time Penicillins Allergy Anaphylaxis Verified 06/10/24 18:37 vancomycin Allergy Rash Verified 06/10/24 18:37 methocarbamol AdvReac Dizziness Verified 06/10/24 18:37 - Social History Does the pt smoke?: No Smoking Status: Never smoker Does the pt drink ETOH?: Yes Does the pt have substance abuse?: No - Immunizations Immunizations are current?: No Immunizations: TDAP >10years/unknown - POLST Patient has POLST: No POLST Status: Full Code PD ED PE NORMAL - Vitals Vital signs reviewed: Yes - General General: Alert and oriented X 3, No acute distress, Well developed/nourished - Neck Neck: Supple, no meningeal sign - Cardiac Cardiac: RRR, No murmur - Respiratory Respiratory: No respiratory distress, Clear bilaterally - Abdomen Abdomen: Normal bowel sounds, Soft, Non tender ( ) - Derm Derm: Normal color, Warm and dry - Extremities Extremities: Other (mild (1+) bilateral foot/ankle pitting edema, no overt swelling of hands/fingers) - Neuro Neuro: Alert and oriented X 3 Eye Opening: Spontaneous Motor: Obeys Commands Verbal: Oriented GCS Score: 15 Results - Vitals Vitals: Oxygen O2 Source Room air - EKG (time done) No standard instances EKG releavant findings:: EKG personally interpreted by author of this note. Relevant findings are: Rate: Rate (enter#) (59) Rhythm: NSR [place]: LAD Intervals: Other (late R transition) QRS: LVH Ischemia: Normal ST segments - Labs Labs: Laboratory Tests 06/10/24 06/10/24 06/10/24 21:00 21:00 21:00 WBC 6.7 RBC 3.40 L Hgb 10.0 L Hct 30.6 L MCV 90.0 MCH 29.4 MCHC 32.7 RDW 15.7 H Plt Count 360 MPV 9.7 Neut # (Auto) 5.6 Lymph # (Auto) 0.9 L [place] # (Auto) 0.2 Eos # (Auto) 0.0 Baso # (Auto) 0.0 Absolute Nucleated RBC 0.00 Nucleated RBC % 0.0 Sodium 129 L Potassium 4.1 Chloride 100 L Carbon Dioxide 22 Anion Gap 7.0 BUN 18 Creatinine 0.6 Estimated GFR (MDRD) 101 Glucose 110 H Calcium 10.2 Total Bilirubin 0.2 AST 39 ALT 32 Alkaline Phosphatase 80 Troponin I High Sens 5.5 Total Protein 6.7 Albumin 3.8 Globulin 2.9 Albumin/Globulin Ratio 1.3 Lipase < 10 L TSH 3.30 - Rads (name of study) chest xray Relevant Findings:: Prelim report reviewed, See rad report PD Medical Decision Making - ED course Complexity details: reviewed old records, reviewed results, re-evaluated patient, considered differential, d/w patient ED course: Patient's chief concerns are HTN and symmetric extremity swelling. Mildly low hgb (10) on otherwise unremarkable cbc, mild hyponatremia (129) on otherwise unremarkable ER abdominal panel. Normal hs-cTn, normal TSH. Normal abdominal and neurologic exam. Given 50mg PO tramadol for her MATUTE and she subsequently reports good symptom relief with this. BPs during ED stay 160s-170s systolic, but without intervention diastolic BP improved from initial 110s down to 80s. No elements of HPI, exam, test results to support hypertensive crisis/emergency. She is given 40mg PO lasix with rx for 5 days (QD) 40mg Lasix; this is to help reduce the peripheral edema. Results d/w patient, return precautions reviewed, and advised to f/u with PCP next available appointment for follow-up/reevaluation Departure - Departure Disposition: 01 Home, Self Care Clinical Impression: Peripheral edema, Hyponatremia Condition: Good Instructions: ED Edema Legs Bilateral, ED Hyponatremia Prescriptions: Furosemide [Lasix] 40 mg PO DAILY #5 tablet Comments: I have electronically submitted a prescription for furosemide (diuretic, "water pill") to the right [facility] in [place]. I am only providing a 5-day course of this medication; hopefully this will take some of the swelling down from your hands and legs. Contact your primary care provider later this morning when the office opens to arrange for the next available appointment for reevaluation/follow-up. Discharge Date/Time: 06/11/24 02:33
[2024-06-10 21:08] LABS: BASOPHILS % (AUTO) 0.1 %; EOSINOPHILS % (AUTO) 0.1 %; HCT - HEMATOCRIT 30.6 % (37.0-47.0); LYMPHOCYTES # (AUTO) 0.9 10^3/uL (1.5-3.5); LYMPHOCYTES % (AUTO) 13.6 %; MEAN CORPUSCULAR HEMOGLOBIN 29.4 pg (27.0-31.0); MEAN CORPUSCULAR HGB CONC 32.7 g/dL (32.0-36.0); MEAN PLATELET VOLUME 9.7 fL (7.9-10.8); MONOCYTES # (AUTO) 0.2 10^3/uL (0.0-1.0); MONOCYTES % (AUTO) 3.6 %; NEUTROPHILS # (AUTO) 5.6 10^3/uL (1.5-6.6); NEUTROPHILS % (AUTO) 82.5 %; PLT - PLATELET COUNT 360 10^3/uL (130-450); RED CELL DISTRIBUTION WIDTH 15.7 % (12.0-15.0); WHITE BLOOD COUNT 6.7 x10^3/uL (4.8-10.8)
[2024-06-10 21:29] LABS: ALBUMIN 3.8 g/dL (3.2-5.5); ALBUMIN/GLOBULIN RATIO 1.3 (1.0-2.2); ALKALINE PHOSPHATASE 80 IU/L (42-121); ALT ALANINE AMINOTRANSFERASE 32 IU/L (10-60); AST ASPARTATE AMINOTRANSFERASE 39 IU/L (10-42); BILIRUBIN,TOTAL 0.2 mg/dL (0.2-1.0); BUN - BLOOD UREA NITROGEN 18 mg/dL (6-20); CALCIUM 10.2 mg/dL (8.5-10.3); CARBON DIOXIDE - CO2 22 mmol/L (21-32); CHLORIDE 100 mmol/L (101-111); CREATININE 0.6 mg/dL (0.6-1.3); GFR - MDRD 101 (>89); GLUCOSE 110 mg/dL (74-104); POTASSIUM 4.1 mmol/L (3.5-4.5); SODIUM 129 mmol/L (135-145); TOTAL PROTEIN 6.7 g/dL (6.4-8.9)
[2024-06-10 21:31] LABS: LIPASE < 10 U/L (11-82)
[2024-06-10 21:34] LABS: TROPONIN I HIGH SENSITIVITY 5.5 ng/L (2.3-14.8)
[2024-06-10] MEDS: traMADol 50 MG TABLET PO STA (21:40)
--- NOTE | 2024-06-10 21:54 | XRAY Report ---
PROCEDURE: Chest 1V INDICATIONS: Chest pain TECHNIQUE: One view of the chest was acquired. COMPARISON: 06/01/2024 FINDINGS: Surgical changes and devices: Surgical fusion of the cervicothoracic spine. Lungs and pleura: No pleural effusions or pneumothorax. Lungs are clear. Mediastinum: Mediastinal contours appear normal. Heart size is normal. Bones and chest wall: No suspicious bony lesions. Overlying soft tissues appear unremarkable. IMPRESSION: No acute cardiopulmonary process. Reviewed by: Tommy Diaz MD on 06/10/2024 9:52 PM PDT Approved by: Tommy Diaz MD on 06/10/2024 9:52 PM PDT Station ID: [id number]
[2024-06-11] MEDS: FUROSEMIDE 20 MG TABLET PO STA (02:22)
[2024-06-11 02:42] VITALS: BP 171/88; O2SAT 96
== END 2024-06-11 02:33 | disposition home or self-care (01) ==
LOC: ED 18:28
DX: R60.9 Edema, unspecified (principal); E87.1 Hypo-osmolality and hyponatremia; I10 Essential (primary) hypertension; G62.9 Polyneuropathy, unspecified; K50.90 Crohn's disease, unspecified, without complications; Z79.899 Other long term (current) drug therapy
CPT/HCPCS: 36415; 71045; 80053; 83690; 84443; 84484; 85025; 93005; 99284; A9270

== ENCOUNTER 2024-06-16 23:05 | Emergency (ER) | payer BC ==
[2024-06-17] MEDS: cloNIDine 0.1 MG TABLET PO STA (00:05)
[2024-06-17] MEDS: HYDROcod/ACETAM 5/325 MG TABLET PO STA (00:07)
[2024-06-17] MEDS: cloNIDine 0.2 MG PATCH TOP STA (00:25)
--- NOTE | 2024-06-17 00:51 | ED Physician Documentation ---
History of Present Illness - Stated complaint Stated Complaint: HIGH BP - Chief complaint Chief Complaint: Heent - History obtained from History obtained from: Patient, Family - Additonal information Additional information: The patient comes to the emergency department with chief complaint of "I was told to come here by my primary for my high blood pressure." The patient states that her blood pressure has been running high for "some time" but neither she nor her can be exactly clear on exactly how long that is. They think that it started sometime before the patient was admitted to the hospital in October of this year, maybe around June. However, the does not think that the patient was started on blood pressure medication until October. It is difficult to get a sense of how high the blood pressure has normally been running because the same question is answered differently at different times; however, as best as I can gather, the patient has had some fluctuating pressures with systolics that have gone close to or around 200 on and off since last June. However, the high readings seem to be more consistent over these last couple of months. The patient has seen her primary PA, who recently switched her from Lasix to spironolactone and losartan. These were started a few weeks ago and patient states she has not noticed much change in the blood pressure. She denies any chest pain, shortness of breath, or strokelike symptoms. She does get a headache and ringing in her ear sometimes. She states she called her primary today, and her primary told her to take an extra spironolactone go to the emergency department. She states that her primary did not set up a follow-up appointment with her. No other complaints at this time. 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: None : None HEENT: Other Psych: None Musculoskeletal: None Derm: None - Past Surgical History Past Surgical History: Yes General: Bowel surgery /J2EE ARCHITECT: section Derm: Other - Present Medications Home Medications: Ambulatory Orders Medication Instructions Recorded Confirmed Ascorbic Acid [Vitamin C] 500 mg PO DAILY 12/16/23 06/16/24 Gabapentin [Neurontin] 300 mg PO 2200 12/16/23 06/16/24 Gabapentin [Neurontin] 100 mg PO 0600,1200,1800 05/13/24 06/16/24 traMADol [Ultram] 50 mg PO DAILY PRN 05/13/24 06/16/24 Bacitracin Zinc Oint 1 applic TOP BID #1 each 06/06/24 06/16/24 Spironolactone [Aldactone] 25 mg PO DAILY 06/16/24 06/16/24 - Allergies Allergies/Adverse Reactions: Allergies Allergy/AdvReac Type Severity Reaction Status Date / Time Penicillins Allergy Anaphylaxis Verified 06/16/24 23:08 vancomycin Allergy Rash Verified 06/16/24 23:08 methocarbamol AdvReac Dizziness Verified 06/16/24 23:08 - Social History Does the pt smoke?: No Smoking Status: Never smoker Does the pt drink ETOH?: Yes Does the pt have substance abuse?: No - Immunizations Immunizations are current?: No Immunizations: TDAP >10years/unknown - POLST Patient has POLST: No POLST Status: Full Code PD ED PE NORMAL - Vitals Vital signs reviewed: Yes - General General: Alert and oriented X 3, No acute distress, Well developed/nourished - HEENT HEENT: Atraumatic, PERRL, EOMI, Moist mucous membranes - Neck Neck: Supple, no meningeal sign - Cardiac Cardiac: RRR, No murmur, Strong equal pulses - Respiratory Respiratory: No respiratory distress, Clear bilaterally - Abdomen Abdomen: Soft, Non tender, Non distended - Derm Derm: Normal color, Warm and dry, No rash - Extremities Extremities: No deformity, No edema - Neuro Neuro: Alert and oriented X 3, Other (Grossly intact) - Psych Psych: Normal mood, Normal affect Results - Vitals Vitals: Vital Signs - 24 hr 06/16/24 06/16/24 06/16/24 23:08 23:30 23:42 Temperature 36.8 C Heart Rate 76 77 58 L Respiratory 16 16 16 Rate Blood Pressure 200/100 H 210/109 H 197/80 H O2 Saturation 100 99 99 Oxygen O2 Source Room air PD Medical Decision Making - ED course Complexity details: reviewed old records, considered differential, d/w patient, d/w family ED course: The patient did not have any symptoms of endorgan damage and this was clearly a chronic problem which had been going on for some time. It did not seem that the patient's blood pressure had been very aggressively managed, at least based on the information that I could gather from the patient and her . I discussed with them that the patient is not in hypertensive emergency at this point in time. She does have systolics here in the ED that are ranging from around 192 around 200 with diastolics in the 80s. I discussed with the patient that this is an issue mainly of need for More aggressive blood pressure management on a chronic basis. I have given the patient a dose of clonidine here and the patient has also complained of her chronic left-sided sciatica hurting, so she has gotten a dose of Vicodin. I have advised the patient and her that we will not be able to fix her chronically elevated blood pressure in 1 night in the emergency department, and that the goal is to adjust the patient's blood pressure medications to try to work toward better control until she can see her primary again. I have advised her that she should call first thing in the morning to set up an appointment for follow-up. I will double both her losartan and her spironolactone. We have discussed the symptoms of hypertensive emergency which should prompt immediate return to the emergency department. Departure - Departure Disposition: 01 Home, Self Care Clinical Impression: Hypertension Qualifiers: Hypertension type: primary hypertension Qualified Code(s): I10 - Essential (primary) hypertension Condition: Stable Instructions: ED Hypertension Conf Out Of Control Comments: You are not having a high blood pressure emergency today, but your blood pressur e is out of control. It is very important that you work with your primary to more aggressively control your blood pressure. You are on the maximum dose of losartan, so you will need to discontinue that when as you have been. However, you can go up on your spironolactone and since you are taking 25 mg a day right now, we will have you go up to 50 mg each day instead of 25. You can take the 50 mg all at once at the same time of day that you have been taking the 25. Please call first thing in the morning to make an appointment with your primary for follow-up. We have given you some blood pressure medication here in the emergency department which will take effect in the coming hours, but really, this is a chronic management issue that needs to be handled by your primary. Please also continue your home pain medications and continue to work with your primary on adjustment of your pain medicines if necessary. Forms: PCP List
[2024-06-17 01:14] VITALS: BP 182/95; O2SAT 100
== END 2024-06-17 01:24 | disposition home or self-care (01) ==
LOC: ED 23:05
DX: I10 Essential (primary) hypertension (principal); Z79.899 Other long term (current) drug therapy
CPT/HCPCS: 99283; A9270

== ENCOUNTER 2024-06-24 03:16 | Outpatient (CLI) | payer BC | END 2024-06-24 21:52 | disposition critical access hospital (66) | LOC: EMS 03:16 | DX: R40.0 Somnolence (principal); T50.995A Adverse effect of other drugs, medicaments and biological substances, initial encounter | CPT/HCPCS: A0425; A0429 ==

== ENCOUNTER 2024-06-24 03:45 | Emergency (ER) | payer BC ==
[2024-06-24 04:04] LABS: BASOPHILS % (AUTO) 0.4 %; EOSINOPHILS # (AUTO) 0.1 10^3/uL (0.0-0.7); EOSINOPHILS % (AUTO) 1.7 %; HCT - HEMATOCRIT 31.6 % (37.0-47.0); HGB - HEMOGLOBIN 10.9 g/dL (12.0-16.0); LYMPHOCYTES # (AUTO) 0.4 10^3/uL (1.5-3.5); LYMPHOCYTES % (AUTO) 5.9 %; MEAN CORPUSCULAR HEMOGLOBIN 29.7 pg (27.0-31.0); MEAN CORPUSCULAR HGB CONC 34.5 g/dL (32.0-36.0); MEAN CORPUSCULAR VOLUME 86.1 fL (81.0-99.0); MEAN PLATELET VOLUME 8.7 fL (7.9-10.8); MONOCYTES # (AUTO) 0.6 10^3/uL (0.0-1.0); MONOCYTES % (AUTO) 7.9 %; NEUTROPHILS # (AUTO) 5.9 10^3/uL (1.5-6.6); NEUTROPHILS % (AUTO) 83.8 %; PLT - PLATELET COUNT 232 10^3/uL (130-450); RED BLOOD COUNT 3.67 10^6/uL (4.20-5.40); RED CELL DISTRIBUTION WIDTH 13.8 % (12.0-15.0); WHITE BLOOD COUNT 7.1 x10^3/uL (4.8-10.8)
[2024-06-24 04:30] LABS: ALBUMIN 3.7 g/dL (3.2-5.5); ALBUMIN/GLOBULIN RATIO 1.2 (1.0-2.2); BILIRUBIN,TOTAL 0.3 mg/dL (0.2-1.0); CALCIUM 9.5 mg/dL (8.5-10.3); CREATININE 0.7 mg/dL (0.6-1.3); POTASSIUM 4.2 mmol/L (3.5-4.5); TOTAL PROTEIN 6.7 g/dL (6.4-8.9)
--- NOTE | 2024-06-24 04:43 | ED Physician Documentation ---
History of Present Illness - Stated complaint Stated Complaint: AMS - Chief complaint Chief Complaint: General - History obtained from History obtained from: Family - Additonal information Additional information: HPI from EMS, patient's . The patient is exhibiting altered mental status to an extent that precludes obtaining any pertinent HPI/ROS. called 911 due to patient exhibiting altered mental status. says that patient was at her baseline mental status for most of the day yesterday, but gradually seemed more confused and agitated in the evening. He says she was tossing and turning while he was in bed trying to sleep. Eventually he realized that she was no longer in bed next to him. He went to check on where she was, finding her in another room, crouched on floor hunched over but not on ground. He found her to be very confused; he was gradually able to get her back into bed with much convincing and coaxing, but she continually has been getting back up, confused, and not following his instruction to stay in bed. He says she had similar confusion last month when she was admitted to [facility] for hyponatremia. No witnessed fall. 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 : None HEENT: Other Psych: None Musculoskeletal: None Derm: None - Past Surgical History Past Surgical History: Yes General: Bowel surgery /BIODIESEL PROCESS CONTROL TECHNICIAN: section Derm: Other - Present Medications Home Medications: Ambulatory Orders Medication Instructions Recorded Confirmed Ascorbic Acid [Vitamin C] 500 mg PO DAILY 12/16/23 06/24/24 Gabapentin [Neurontin] 300 mg PO 2200 12/16/23 06/24/24 Gabapentin [Neurontin] 100 mg PO 0600,1200,1800 05/13/24 06/24/24 traMADol [Ultram] 50 mg PO DAILY PRN 05/13/24 06/24/24 Spironolactone [Aldactone] 25 mg PO DAILY 06/16/24 06/24/24 Losartan Potassium 100 mg PO DAILY 06/24/24 06/24/24 amLODIPine [Norvasc] 5 mg PO DAILY 06/24/24 06/24/24 - Allergies Allergies/Adverse Reactions: Allergies Allergy/AdvReac Type Severity Reaction Status Date / Time Penicillins Allergy Anaphylaxis Verified 06/24/24 03:53 vancomycin Allergy Rash Verified 06/24/24 03:53 methocarbamol AdvReac Dizziness Verified 06/24/24 03:53 - Social History Does the pt smoke?: No Smoking Status: Never smoker Does the pt drink ETOH?: Yes Does the pt have substance abuse?: No - Immunizations Immunizations are current?: No Immunizations: TDAP >10years/unknown - POLST Patient has POLST: No POLST Status: Full Code PD ED PE NORMAL - Vitals Vital signs reviewed: Yes - General General: Well developed/nourished, Other (anxious, poor eye contact, fidgety and frequently requesting side rail down so she can get up. ) - HEENT HEENT: Atraumatic, PERRL, EOMI, Moist mucous membranes - Neck Neck: Supple, no meningeal sign - Cardiac Cardiac: RRR, No murmur - Respiratory Respiratory: No respiratory distress, Clear bilaterally - Abdomen Abdomen: Soft, Non tender, Other (colostomy bag with small amount firm stool ) - Neuro Eye Opening: Spontaneous Motor: Localizes to Pain Verbal: Confused GCS Score: 13 Results - Vitals Vitals: Vital Signs - 24 hr 06/24/24 06/24/24 06/24/24 03:53 04:33 05:46 Temperature 36.2 C L Heart Rate 84 79 76 Respiratory 16 18 18 Rate Blood Pressure 135/84 H 147/100 H 182/116 H O2 Saturation 99 99 99 06/24/24 06/24/24 06/24/24 07:00 09:00 11:00 Temperature Heart Rate 79 75 95 Respiratory 16 10 L 18 Rate Blood Pressure 127/90 H 122/89 H 128/92 H O2 Saturation 100 100 100 06/24/24 06/24/24 13:00 14:44 Temperature Heart Rate 83 80 Respiratory 16 18 Rate Blood Pressure 128/90 H 161/109 H O2 Saturation 100 100 Oxygen O2 Source Room air - Labs Labs: Laboratory Tests 06/24/24 06/24/24 06/24/24 04:00 04:00 04:01 WBC 7.1 RBC 3.67 L Hgb 10.9 L Hct 31.6 L MCV 86.1 MCH 29.7 MCHC 34.5 RDW 13.8 Plt Count 232 MPV 8.7 Neut # (Auto) 5.9 Lymph # (Auto) 0.4 L [place] # (Auto) 0.6 Eos # (Auto) 0.1 Baso # (Auto) 0.0 Absolute Nucleated RBC 0.00 Nucleated RBC % 0.0 Sodium 117 L* Potassium 4.2 Chloride 87 L Carbon Dioxide 22 Anion Gap 8.0 BUN 12 Creatinine 0.7 Estimated GFR (MDRD) 84 L Glucose 87 Calcium 9.5 Total Bilirubin 0.3 AST 24 ALT 28 Alkaline Phosphatase 86 Total Protein 6.7 Albumin 3.7 Globulin 3.0 Albumin/Globulin Ratio 1.2 Lipase 11 Urine Color Urine Clarity Urine pH Ur Specific [place] Urine Protein Urine Glucose (UA) Urine Ketones Urine Occult Blood Urine Nitrite Urine Bilirubin Urine Urobilinogen Ur Leukocyte Esterase Ur Microscopic Review Urine Culture Comments Urine Opiates Screen Ur Buprenorphine Scrn Ur Oxycodone Screen Urine Methadone Screen Ur Barbiturates Screen Ur Tricyclics Screen Ur Phencyclidine Scrn Ur Amphetamine Screen U Methamphetamines Scrn U Benzodiazepines Scrn Urine Cocaine Screen U Cannabinoids Screen Ur Drug Screen Comment Ethyl Alcohol < 10.0 06/24/24 06/24/24 06/24/24 04:29 04:29 12:00 WBC RBC Hgb Hct MCV MCH MCHC RDW Plt Count MPV Neut # (Auto) Lymph # (Auto) [place] # (Auto) Eos # (Auto) Baso # (Auto) Absolute Nucleated RBC Nucleated RBC % Sodium 119 L* Potassium 4.5 Chloride 89 L Carbon Dioxide 21 Anion Gap 9.0 BUN 10 Creatinine 0.5 L Estimated GFR (MDRD) 124 Glucose 85 Calcium 9.1 Total Bilirubin AST ALT Alkaline Phosphatase Total Protein Albumin Globulin Albumin/Globulin Ratio Lipase Urine Color YELLOW Urine Clarity CLEAR Urine pH 7.0 Ur Specific [place] 1.010 Urine Protein NEGATIVE Urine Glucose (UA) NEGATIVE Urine Ketones NEGATIVE Urine Occult Blood NEGATIVE Urine Nitrite NEGATIVE Urine Bilirubin NEGATIVE Urine Urobilinogen 0.2 (NORMAL) Ur Leukocyte Esterase NEGATIVE Ur Microscopic Review NOT INDICATED Urine Culture Comments NOT INDICATED Urine Opiates Screen NEGATIVE Ur Buprenorphine Scrn NEGATIVE Ur Oxycodone Screen NEGATIVE Urine Methadone Screen NEGATIVE Ur Barbiturates Screen NEGATIVE Ur Tricyclics Screen NEGATIVE Ur Phencyclidine Scrn NEGATIVE Ur Amphetamine Screen NEGATIVE U Methamphetamines Scrn NEGATIVE U Benzodiazepines Scrn NEGATIVE Urine Cocaine Screen NEGATIVE U Cannabinoids Screen NEGATIVE Ur Drug Screen Comment CUTOFF CONC BELOW: Ethyl Alcohol PD Medical Decision Making - ED course Complexity details: reviewed old records, reviewed results, re-evaluated patient, considered differential, d/w family ED course: Most relevant finding on blood test is hyponatremia (117); also noted is hypochloremia (87). Otherwise, unremarkable workup includes CBC (mildly low hemoglobin at 10.9). Normal urinalysis. I have ordered IV normal saline at 150 cc/h. I then discussed this [facility]. She requests further testing be undertaken before consideration for admission to [facility]; specifically, CT head, serum ethanol level, and urine drug screen. The serum ethanol level is undetectable and UDS negative for the drugs tested on this panel. Unsurprisingly, the patient would not lie still nearly long enough to accomplish the CT of unfortunately, not surprisingly the patient would not lie still nearly long enough to undertake the CT head. I subsequently spoke to [facility] last and he recommends considering transfer this patient to higher level of care, specifically hospital services including nephrology. On further review of her records, I do not see any record of CTH being undertaken on her previous inpatient stay last month (nor on the notes that I am able to access through [facility] from her stay at [facility]). Thus, we will endeavor to undertake CT head. Patient will likely require sedation for this. The care of this patient is turned over the oncoming ED physician (Dr. Huerta) at end of my shift, as workup is ongoing. Departure - Departure Disposition: 02 Transfer Acute Care Hosp Clinical Impression: Hyponatremia Condition: Stable Forms: PCP List Discharge Date/Time: 06/24/24 14:46
[2024-06-24 05:01] LABS: BILIRUBIN,URINE NEGATIVE (NEGATIVE); GLUCOSE, URINE (UA) NEGATIVE (NEGATIVE); KETONES,URINE (UA) NEGATIVE (NEGATIVE); LEUKOCYTE ESTERASE, URINE NEGATIVE (NEGATIVE); NITRITE,URINE NEGATIVE (NEGATIVE); OCCULT BLOOD,URINE NEGATIVE (NEGATIVE); PROTEIN,URINE NEGATIVE (NEGATIVE); UROBILINOGEN,URINE 0.2 (NORMAL) E.U./dL (NORMAL)
[2024-06-24 05:06] LABS: CLARITY,URINE CLEAR (CLEAR)
[2024-06-24] MEDS: SODIUM CHLORIDE 0.9% 1,000 ML IV STA (05:44)
[2024-06-24 06:39] LABS: AMPHETAMINE SCREEN,URINE NEGATIVE (NEGATIVE); BARBITURATE SCREEN,UR NEGATIVE (NEGATIVE); BENZODIAZEPINES SCREEN, URINE NEGATIVE (NEGATIVE); BUPRENORPHINE SCREEN, URINE NEGATIVE (NEGATIVE); COCAINE SCREEN URINE NEGATIVE (NEGATIVE); METHADONE SCREEN, URINE NEGATIVE (NEGATIVE); METHAMPHETAMINES SCREEN, URINE NEGATIVE (NEGATIVE); OPIATE SCREEN, URINE NEGATIVE (NEGATIVE); OXYCODONE SCREEN, URINE NEGATIVE (NEGATIVE); THC CANNABINOID SCREEN, URINE NEGATIVE (NEGATIVE); TRICYCLIC ANTIDEPRESSANT,URINE NEGATIVE (NEGATIVE)
--- NOTE | 2024-06-24 07:32 | ED Physician Documentation ---
ED Addendum - Addendum Addendum: 06/24/24 07:[address] Garvey at 7 AM shift change. Briefly 64-year-old woman with hyponatremia and altered mental status. He had presented the case to our hospitalist who recommends transfer as we do not have nephrology. The [facility] community [facility] is starting that search. 06/24/24 07:49 Seen and examined at the bedside. is with her. She is alert and oriented x 2. Slightly agitated. Currently moving around too much probably to get a CAT scan of the head so we will medicate for anxiety with Haldol to try to get that done. 06/24/24 09:32 Accepted at this time by Dr. Babin to [facility] who requests repeat BMP which is ordered. Disposition: Transferred to [facility] for higher level of care Condition: Stable Diagnosis: 1. Hyponatremia 2. Confusion 06/24/24 10:15 CT of the head independently viewed by me and final report received was normal. 06/24/24 11:53 Unfortunately due to a glitch in the EMR I discovered now that the BMP that I ordered 2 hours ago did not go through and have reordered it on paper as the EMR is down now. 06/24/24 12:51 On recheck at this time sodium up to 119 which is of course improved but not too rapidly.
[2024-06-24] MEDS: HALOPERIDOL 5 MG/ML VIAL IVP STA (08:13)
[2024-06-24] MEDS: LORazepam 2 MG/ML VIAL IVP STA (08:55)
[2024-06-24 09:07] VITALS: O2SAT 100
--- NOTE | 2024-06-24 09:56 | CT Report ---
PROCEDURE: Head WO INDICATIONS: AMS TECHNIQUE: Noncontrast 4.5 mm thick angled axial sections acquired from the foramen magnum to the vertex. For r adiation dose reduction, the following was used: automated exposure control, adjustment of mA and/or kV according to patient size. COMPARISON: 08/26/2023. FINDINGS: Image quality: Excellent. CSF spaces: Basal cisterns are patent. No extra-axial fluid collections. Ventricles are normal in size and shape. Brain: No midline shift. No intracranial masses or hemorrhage. [place]-white matter interface is norm al. Skull and face: Calvarium and visualized facial bones are intact, without suspicious lesions. Sinuses: Visualized sinuses and mastoids are clear. IMPRESSION: No acute intracranial pathology. Reviewed by: Jose Chavez MD on 06/24/2024 9:55 AM PDT Approved by: Jose Chavez MD on 06/24/2024 9:55 AM PDT Station ID: [id number]
[2024-06-24] MEDS ORDERED: LORazepam 2 MG/ML VIAL ONE (14:21)
[2024-06-24 14:50] VITALS: BP 161/109
[2024-06-24 15:38] LABS: CALCIUM 9.1 mg/dL (8.5-10.3); CREATININE 0.5 mg/dL (0.6-1.3); POTASSIUM 4.5 mmol/L (3.5-4.5)
== END 2024-06-24 14:46 | disposition short-term general hospital (02) ==
LOC: EDUNIT# → ED 03:45
DX: E87.1 Hypo-osmolality and hyponatremia (principal); I10 Essential (primary) hypertension; R41.0 Disorientation, unspecified; Z79.899 Other long term (current) drug therapy
CPT/HCPCS: 36415; 70450; 80048; 80053; 80306; 81003; 82077; 83690; 85025; 96374; 96375; 99285; J2060; 81001; 87086

== ENCOUNTER 2024-07-04 14:49 | Outpatient (CLI) | payer BC ==
[2024-07-04 15:08] LABS: BASOPHILS % (AUTO) 0.9 %; EOSINOPHILS # (AUTO) 0.1 10^3/uL (0.0-0.7); EOSINOPHILS % (AUTO) 2.2 %; HGB - HEMOGLOBIN 9.9 g/dL (12.0-16.0); LYMPHOCYTES # (AUTO) 0.8 10^3/uL (1.5-3.5); LYMPHOCYTES % (AUTO) 17.7 %; MEAN CORPUSCULAR HEMOGLOBIN 29.8 pg (27.0-31.0); MEAN CORPUSCULAR VOLUME 90.4 fL (81.0-99.0); MEAN PLATELET VOLUME 8.3 fL (7.9-10.8); MONOCYTES # (AUTO) 0.3 10^3/uL (0.0-1.0); MONOCYTES % (AUTO) 6.6 %; NEUTROPHILS # (AUTO) 3.3 10^3/uL (1.5-6.6); NEUTROPHILS % (AUTO) 72.2 %; PLT - PLATELET COUNT 348 10^3/uL (130-450); RED BLOOD COUNT 3.32 10^6/uL (4.20-5.40); RED CELL DISTRIBUTION WIDTH 14.4 % (12.0-15.0); WHITE BLOOD COUNT 4.5 x10^3/uL (4.8-10.8)
[2024-07-04 15:37] LABS: ALBUMIN 3.8 g/dL (3.2-5.5); ALBUMIN/GLOBULIN RATIO 1.3 (1.0-2.2); BILIRUBIN,TOTAL 0.3 mg/dL (0.2-1.0); CALCIUM 9.8 mg/dL (8.5-10.3); CREATININE 0.6 mg/dL (0.6-1.3); MAGNESIUM 1.4 mg/dL (1.7-2.3); PHOSPHORUS 3.5 mg/dL (2.5-5.0); POTASSIUM 4.5 mmol/L (3.5-4.5); TOTAL PROTEIN 6.8 g/dL (6.4-8.9)
[2024-07-04 15:43] LABS: FERRITIN 131.3 ng/mL (11.0-306.8)
== END 2024-07-04 14:50 | disposition home or self-care (01) ==
LOC: LAB 14:49
PROVIDERS: ATTEND Registered Nurse
DX: E87.1 Hypo-osmolality and hyponatremia (principal); D64.9 Anemia, unspecified
CPT/HCPCS: 36415; 80053; 82607; 82728; 82746; 83540; 83735; 84100; 84466; 85025

== ENCOUNTER 2024-07-10 09:30 | Outpatient (CLI) | payer BC ==
--- NOTE | 2024-07-10 11:32 | MRI Report ---
PROCEDURE: Lumbar Spine WO INDICATIONS: LUMBAR SPONDYLOSIS TECHNIQUE: Noncontrast sagittal T1 spin echo and T2 fast echo, sagittal STIR, axial T1 and T2 fast spin echo thr ough the lumbar spine. In cases with scoliosis, additional coronal T2 fast spin echo may be performe d. COMPARISON: Plain films dated 05/07/2024 FINDINGS: Image quality: Excellent. Alignment and Curvature: 5 lumbar type vertebral bodies are present by plain film. 3 mm of retrolisth esis of T11 on T12. 3 mm of anterolisthesis of L4 on L5. Bone Marrow: Marrow is of normal overall signal. No acute vertebral body compression fractures. Mo derate reactive signal within the endplates adjacent to the T11-T12 and L5-S1 intervertebral discs. M ild reactive signal throughout the remaining lumbar and lower thoracic endplates Spinal Cord: Conus medullaris terminates at the L1-L2 disc space level. Visualized cord demonstrate s normal signal and size. Paraspinous Soft Tissues: No paravertebral masses. T11-T12: Moderate disc height loss and desiccation. Mild diffuse disc bulge. Mild canal stenosis. Mil d bilateral foraminal stenosis. T12-L1: Mild disc desiccation and diffuse disc bulge. Minimal canal stenosis. No foraminal stenosis. L1-L2: Mild bilateral facet hypertrophy. No significant canal nor foraminal stenosis. L2-L3: Mild disc desiccation and diffuse disc bulge. Mild facet and ligament flavum hypertrophy. M ild canal stenosis. Mild bilateral foraminal stenosis. L3-L4: Mild disc desiccation and diffuse disc bulge. Mild facet and ligament flavum hypertrophy. Mi ld canal stenosis. Mild bilateral foraminal stenosis. L4-L5: Mild disc desiccation and diffuse disc bulge. Mild facet and ligament flavum hypertrophy. Mi ld canal stenosis. Mild bilateral foraminal stenosis. L5-S1: Moderate disc desiccation. Mild diffuse disc bulge. Mild bilateral facet hypertrophy. Mild c anal stenosis. Mild bilateral foraminal stenosis. IMPRESSION: 1. Multilevel degenerative disc and facet disease, in addition to epidural lipomatosis and ligamentum flavum hypertrophy. Next line 2. Mild multilevel canal and foraminal stenoses. No neural impingement. . Reviewed by: Leidy Yap MD on 07/10/2024 11:30 AM PDT Approved by: Leidy Yap MD on 07/10/2024 11:30 AM PDT Station ID: [id number]
== END 2024-07-10 09:31 | disposition home or self-care (01) ==
LOC: DI 09:30
PROVIDERS: ATTEND Registered Nurse
DX: M47.26 Other spondylosis with radiculopathy, lumbar region (principal); M51.34 Other intervertebral disc degeneration, thoracic region; M48.04 Spinal stenosis, thoracic region; M51.16 Intervertebral disc disorders with radiculopathy, lumbar region; M48.061 Spinal stenosis, lumbar region without neurogenic claudication; M51.17 Intervertebral disc disorders with radiculopathy, lumbosacral region; M48.07 Spinal stenosis, lumbosacral region; M46.04 Spinal enthesopathy, thoracic region; E88.2 Lipomatosis, not elsewhere classified

== ENCOUNTER 2024-10-19 19:47 | Inpatient (IN) ==
[2024-10-19 20:50] LABS: BASOPHILS % (AUTO) 0.6 %; EOSINOPHILS # (AUTO) 0.1 10^3/uL (0.0-0.7); EOSINOPHILS % (AUTO) 1.4 %; HCT - HEMATOCRIT 33.2 % (37.0-47.0); HGB - HEMOGLOBIN 10.9 g/dL (12.0-16.0); LYMPHOCYTES # (AUTO) 0.3 10^3/uL (1.5-3.5); MEAN CORPUSCULAR HEMOGLOBIN 29.9 pg (27.0-31.0); MEAN CORPUSCULAR HGB CONC 32.8 g/dL (32.0-36.0); MEAN PLATELET VOLUME 10.7 fL (7.9-10.8); MONOCYTES # (AUTO) 0.3 10^3/uL (0.0-1.0); MONOCYTES % (AUTO) 7.2 %; NEUTROPHILS # (AUTO) 2.8 10^3/uL (1.5-6.6); NEUTROPHILS % (AUTO) 81.5 %; NRBC ABSOLUTE COUNT (AUTO) 0.02 x10^3/uL; NUCLEATED RED BLOOD CELLS AUTO 0.6 /100WBC; PLT - PLATELET COUNT 106 10^3/uL (130-450); RED BLOOD COUNT 3.65 10^6/uL (4.20-5.40); RED CELL DISTRIBUTION WIDTH 14.6 % (12.0-15.0); WHITE BLOOD COUNT 3.5 x10^3/uL (4.8-10.8)
[2024-10-19 21:01] LABS: ALBUMIN 3.6 g/dL (3.2-5.5); ALBUMIN/GLOBULIN RATIO 1.2 (1.0-2.2); BILIRUBIN,TOTAL 0.3 mg/dL (0.2-1.0); CALCIUM 10.2 mg/dL (8.5-10.3); CREATININE 0.8 mg/dL (0.6-1.3); POTASSIUM 4.8 mmol/L (3.5-4.5); TOTAL PROTEIN 6.6 g/dL (6.4-8.9)
[2024-10-19 21:50] LABS: BILIRUBIN,URINE NEGATIVE (NEGATIVE); GLUCOSE, URINE (UA) NEGATIVE (NEGATIVE); KETONES,URINE (UA) NEGATIVE (NEGATIVE); LEUKOCYTE ESTERASE, URINE NEGATIVE (NEGATIVE); NITRITE,URINE NEGATIVE (NEGATIVE); OCCULT BLOOD,URINE NEGATIVE (NEGATIVE); PROTEIN,URINE NEGATIVE (NEGATIVE); UROBILINOGEN,URINE 0.2 (NORMAL) E.U./dL (NORMAL)
[2024-10-19 21:51] LABS: CLARITY,URINE CLEAR (CLEAR)
--- NOTE | 2024-10-19 21:56 | ED Physician Documentation ---
History of Present Illness Stated complaint Stated Complaint: UTI Chief complaint Chief Complaint: Neuro History obtained from History obtained from: Patient and Family (Spouse) History of Present Illness Timing: Prior to arrival Additonal information Additional information: Patient has ahistory of alcoholism in remission, and history of bactermia after being hospitalized one year ago. Ellie most recently was admitted for hyponatremia. yesenia was seen here yesterday with decreased activity and increased confusion. Spouse noted he was offered admission but he felt he could take care of pateint at home, however over the last day he is concerned cataeint has become more confused and worsening encephalopathy. ellie was diagnosed with a UTI about 3 dasy ago when symptoms started oshe was started on ciprofloxacin after being seen in [facility] e[facility] yesterday and has taken 2 doses but continues to have persistent symptoms. Meds/Allgy Home Medications Ambulatory Orders Medication Instructions Recorded Confirmed gabapentin 300 mg capsule 300 mg PO 2200 12/16/23 10/20/24 gabapentin 100 mg capsule 100 mg PO 0600,1200,1800 05/13/24 10/20/24 tramadol 50 mg tablet 50 mg PO DAILY PRN Pain 5-7 05/13/24 10/20/24 amlodipine 5 mg tablet 5 mg PO DAILY 06/24/24 10/20/24 magnesium 250 mg tablet 250 mg PO QDAY 08/26/24 10/20/24 ciprofloxacin HCl 500 mg tablet 500 mg PO BID #20 tabs 10/18/24 10/20/24 naproxen sodium 220 mg tablet 220 mg PO Q8H PRN pain 10/20/24 10/20/24 (Aleve) Allergies Allergies Allergy/AdvReac Type Severity Reaction Status Date / Time Penicillins Allergy Anaphylaxis Verified 10/19/24 20:08 vancomycin Allergy Rash Verified 10/19/24 20:08 methocarbamol AdvReac Dizziness Verified 10/19/24 20:08 PFS Surgical History Surgical History (Updated 10/20/24 @ 10:30 by Mirella Little MD) History of colostomy Social History Social History Smoking Status: Never smoker Second hand tobacco smoke exposure: No Do you dip or chew tobacco?: No Do you vape?: No Patient requests smoking cessation consult: No Initiate information on smoking cessation: No Living arrangement: At home Living Condition: With spouse/s.o. Relationship: Level: Assisted Home Mobility Equipment: Walker Do you feel safe in your home environment?: Yes Suffered physical, verbal, emotional, or financial abuse?: No History of Abuse: No ETOH Use: Other Frequency: Occasional Are you sexually active?: No POLST Patient has POLST: No POLST Status: Full Code Exam Constitutional normal general appearance HENMT normocephalic and head/scalp atraumatic Eyes PERRL, EOMs intact bilaterally and conjunctivae normal Neck/C-Spine visual inspection normal Lymph no lymphadenopathy noted Chest inspection of chest normal, palpation of chest normal and inspection of breasts normal Respiratory breath sounds equal bilaterally Genitourinary no CVA tenderness Back/Pelvis spine normal to inspection Extremities normal to inspection Skin skin color normal, no rash and no lesions Results Vitals Vitals: Vital Signs - 24 hr 10/22/24 00:08 10/22/24 03:28 10/22/24 04:07 Temperature 36.3 C L 36.4 C L Temperature Source Skin Skin Pulse Rate [Brachial] 66 63 Respiratory Rate 16 12 17 Blood Pressure [Brachial artery] 138/82 H Blood Pressure [Left Brachial artery] 91/67 159/90 H Blood Pressure [Right Brachial artery] O2 Saturation 99 98 O2 Source Room air Room air Sedation scale 2-Arouses with tactile 2-Arouses with tactile 10/22/24 08:43 10/22/24 10:00 Temperature 36.1 C L 36.2 C L Temperature Source Temporal Artery Scan Temporal Artery Scan Pulse Rate [Brachial] 51 L 53 L Respiratory Rate 16 16 Blood Pressure [Brachial artery] 112/61 Blood Pressure [Left Brachial artery] Blood Pressure [Right Brachial artery] 94/51 L O2 Saturation 98 97 O2 Source Room air Room air Sedation scale 1-Arouses easily 2-Arouses with tactile Oxygen O2 Source Room air Labs Labs: Microbiology 10/20/24 15:19 Blood Culture - Preliminary Blood - Left Hand NO GROWTH AFTER 2 DAYS 10/20/24 14:55 Blood Culture - Preliminary Blood - Left Hand NO GROWTH AFTER 2 DAYS Laboratory Tests 10/19/24 10/19/24 10/20/24 20:43 21:34 03:00 WBC 3.5 L RBC 3.65 L Hgb 10.9 L Hct 33.2 L MCV 91.0 MCH 29.9 MCHC 32.8 RDW 14.6 Plt Count 106 L MPV 10.7 Neut # (Auto) 2.8 Lymph # (Auto) 0.3 L [place] # (Auto) 0.3 Eos # (Auto) 0.1 Baso # (Auto) 0.0 Absolute Nucleated RBC 0.02 Band Neuts % (Manual) Abnorm Lymph % (Manual) Nucleated RBC % 0.6 Neutrophils # (Manual) Lymphocytes # (Manual) Monocytes # (Manual) Eosinophils # (Manual) Basophils # (Manual) Differential Comment WBC Morphology Platelet Estimate Platelet Morphology RBC Morph Micro Appear Sodium 142 Potassium 4.8 H Chloride 111 Carbon Dioxide 25 Anion Gap 6.0 BUN 27 H Creatinine 0.8 Estimated GFR (MDRD) 72 L Glucose 67 L POC Whole Bld Glucose 63 Estimat Average Glucose 105 H Hemoglobin A1c % 5.3 Calcium 10.2 Magnesium Iron TIBC % Saturation Transferrin Total Bilirubin 0.3 AST 35 ALT 34 Alkaline Phosphatase 114 Ammonia Troponin I High Sens Total Protein 6.6 Albumin 3.6 Globulin 3.0 Albumin/Globulin Ratio 1.2 Triglycerides 139 Cholesterol 162 LDL Cholesterol, Calc 62 VLDL Cholesterol 28 HDL Cholesterol 72 LDL/HDL Ratio 0.9 Cholesterol/HDL Ratio 2.3 TSH 12.03 H Free T4 Direct Thyroxine (T4) Free T3 pg/mL Total T3 Urine Color YELLOW Urine Clarity CLEAR Urine pH 6.0 Ur Specific [place] 1.020 Urine Protein NEGATIVE Urine Glucose (UA) NEGATIVE Urine Ketones NEGATIVE Urine Occult Blood NEGATIVE Urine Nitrite NEGATIVE Urine Bilirubin NEGATIVE Urine Urobilinogen 0.2 (NORMAL) Ur Leukocyte Esterase NEGATIVE Ur Microscopic Review NOT INDICATED Urine Culture Comments NOT INDICATED 10/20/24 10/20/24 10/20/24 03:23 03:33 03:48 WBC 2.9 L RBC 3.47 L Hgb 10.3 L Hct 31.2 L MCV 89.9 MCH 29.7 MCHC 33.0 RDW 14.6 Plt Count 99 L MPV 10.2 Neut # (Auto) 2.3 Lymph # (Auto) 0.3 L [place] # (Auto) 0.2 Eos # (Auto) 0.1 Baso # (Auto) 0.0 Absolute Nucleated RBC 0.00 Band Neuts % (Manual) Not Reportable Abnorm Lymph % (Manual) Not Reportable Nucleated RBC % 0.0 Neutrophils # (Manual) Not Reportable Lymphocytes # (Manual) Not Reportable Monocytes # (Manual) Not Reportable Eosinophils # (Manual) Not Reportable Basophils # (Manual) Not Reportable Differential Comment MANUAL=AUTO DIFF WBC Morphology 1+ TOXIC GRANULATION Platelet Estimate DECREASED (<130,000) Platelet Morphology NORMAL APPEARANCE RBC Morph Micro Appear NORMAL APPEARANCE Sodium 141 Potassium 4.9 H Chloride 111 Carbon Dioxide 26 Anion Gap 4.0 L BUN 24 H Creatinine 0.7 Estimated GFR (MDRD) 84 L Glucose 88 POC Whole Bld Glucose 68 124 Estimat Average Glucose Hemoglobin A1c % Calcium 9.9 Magnesium 1.9 Iron 117 TIBC 269 % Saturation 44 Transferrin 192 L Total Bilirubin 0.2 AST 28 ALT 30 Alkaline Phosphatase 99 Ammonia Troponin I High Sens 9.4 Total Protein 6.4 Albumin 3.4 Globulin 3.0 Albumin/Globulin Ratio 1.1 Triglycerides Cholesterol LDL Cholesterol, Calc VLDL Cholesterol HDL Cholesterol LDL/HDL Ratio Cholesterol/HDL Ratio TSH Free T4 Direct 0.97 Thyroxine (T4) 10.0 Free T3 pg/mL 2.82 Total T3 0.78 L Urine Color Urine Clarity Urine pH Ur Specific [place] Urine Protein Urine Glucose (UA) Urine Ketones Urine Occult Blood Urine Nitrite Urine Bilirubin Urine Urobilinogen Ur Leukocyte Esterase Ur Microscopic Review Urine Culture Comments 10/20/24 10/20/24 10/20/24 11:46 13:11 16:37 WBC RBC Hgb Hct MCV MCH MCHC RDW Plt Count MPV Neut # (Auto) Lymph # (Auto) [place] # (Auto) Eos # (Auto) Baso # (Auto) Absolute Nucleated RBC Band Neuts % (Manual) Abnorm Lymph % (Manual) Nucleated RBC % Neutrophils # (Manual) Lymphocytes # (Manual) Monocytes # (Manual) Eosinophils # (Manual) Basophils # (Manual) Differential Comment WBC Morphology Platelet Estimate Platelet Morphology RBC Morph Micro Appear Sodium 140 Potassium 4.5 Chloride 107 Carbon Dioxide 26 Anion Gap 7.0 BUN 22 H Creatinine 0.8 Estimated GFR (MDRD) 72 L Glucose 76 POC Whole Bld Glucose 113 105 Estimat Average Glucose Hemoglobin A1c % Calcium 8.7 Magnesium Iron TIBC % Saturation Transferrin Total Bilirubin AST ALT Alkaline Phosphatase Ammonia Troponin I High Sens Total Protein Albumin Globulin Albumin/Globulin Ratio Triglycerides Cholesterol LDL Cholesterol, Calc VLDL Cholesterol HDL Cholesterol LDL/HDL Ratio Cholesterol/HDL Ratio TSH Free T4 Direct Thyroxine (T4) Free T3 pg/mL Total T3 Urine Color Urine Clarity Urine pH Ur Specific [place] Urine Protein Urine Glucose (UA) Urine Ketones Urine Occult Blood Urine Nitrite Urine Bilirubin Urine Urobilinogen Ur Leukocyte Esterase Ur Microscopic Review Urine Culture Comments 10/20/24 10/20/24 10/21/24 20:55 23:44 01:57 WBC RBC Hgb Hct MCV MCH MCHC RDW Plt Count MPV Neut # (Auto) Lymph # (Auto) [place] # (Auto) Eos # (Auto) Baso # (Auto) Absolute Nucleated RBC Band Neuts % (Manual) Abnorm Lymph % (Manual) Nucleated RBC % Neutrophils # (Manual) Lymphocytes # (Manual) Monocytes # (Manual) Eosinophils # (Manual) Basophils # (Manual) Differential Comment WBC Morphology Platelet Estimate Platelet Morphology RBC Morph Micro Appear Sodium Potassium Chloride Carbon Dioxide Anion Gap BUN Creatinine Estimated GFR (MDRD) Glucose POC Whole Bld Glucose 96 79 101 Estimat Average Glucose Hemoglobin A1c % Calcium Magnesium Iron TIBC % Saturation Transferrin Total Bilirubin AST ALT Alkaline Phosphatase Ammonia Troponin I High Sens Total Protein Albumin Globulin Albumin/Globulin Ratio Triglycerides Cholesterol LDL Cholesterol, Calc VLDL Cholesterol HDL Cholesterol LDL/HDL Ratio Cholesterol/HDL Ratio TSH Free T4 Direct Thyroxine (T4) Free T3 pg/mL Total T3 Urine Color Urine Clarity Urine pH Ur Specific [place] Urine Protein Urine Glucose (UA) Urine Ketones Urine Occult Blood Urine Nitrite Urine Bilirubin Urine Urobilinogen Ur Leukocyte Esterase Ur Microscopic Review Urine Culture Comments 10/21/24 10/21/24 10/21/24 05:28 05:33 11:18 WBC 3.4 L RBC 3.24 L Hgb 9.5 L Hct 29.9 L MCV 92.3 MCH 29.3 MCHC 31.8 L RDW 14.8 Plt Count 99 L MPV 10.5 Neut # (Auto) Lymph # (Auto) [place] # (Auto) Eos # (Auto) Baso # (Auto) Absolute Nucleated RBC Band Neuts % (Manual) Abnorm Lymph % (Manual) Nucleated RBC % Neutrophils # (Manual) Lymphocytes # (Manual) Monocytes # (Manual) Eosinophils # (Manual) Basophils # (Manual) Differential Comment WBC Morphology Platelet Estimate Platelet Morphology RBC Morph Micro Appear Sodium 141 Potassium 5.0 H Chloride 113 H Carbon Dioxide 25 Anion Gap 3.0 L BUN 16 Creatinine 0.7 Estimated GFR (MDRD) 84 L Glucose 88 POC Whole Bld Glucose 87 87 Estimat Average Glucose Hemoglobin A1c % Calcium 9.2 Magnesium Iron TIBC % Saturation Transferrin Total Bilirubin AST ALT Alkaline Phosphatase Ammonia Troponin I High Sens Total Protein Albumin Globulin Albumin/Globulin Ratio Triglycerides Cholesterol LDL Cholesterol, Calc VLDL Cholesterol HDL Cholesterol LDL/HDL Ratio Cholesterol/HDL Ratio TSH Free T4 Direct Thyroxine (T4) Free T3 pg/mL Total T3 Urine Color Urine Clarity Urine pH Ur Specific [place] Urine Protein Urine Glucose (UA) Urine Ketones Urine Occult Blood Urine Nitrite Urine Bilirubin Urine Urobilinogen Ur Leukocyte Esterase Ur Microscopic Review Urine Culture Comments 10/21/24 10/21/24 10/21/24 12:52 15:19 16:54 WBC RBC Hgb Hct MCV MCH MCHC RDW Plt Count MPV Neut # (Auto) Lymph # (Auto) [place] # (Auto) Eos # (Auto) Baso # (Auto) Absolute Nucleated RBC Band Neuts % (Manual) Abnorm Lymph % (Manual) Nucleated RBC % Neutrophils # (Manual) Lymphocytes # (Manual) Monocytes # (Manual) Eosinophils # (Manual) Basophils # (Manual) Differential Comment WBC Morphology Platelet Estimate Platelet Morphology RBC Morph Micro Appear Sodium Potassium 4.8 H Chloride Carbon Dioxide Anion Gap BUN Creatinine Estimated GFR (MDRD) Glucose POC Whole Bld Glucose 128 83 Estimat Average Glucose Hemoglobin A1c % Calcium Magnesium Iron TIBC % Saturation Transferrin Total Bilirubin AST ALT Alkaline Phosphatase Ammonia Troponin I High Sens Total Protein Albumin Globulin Albumin/Globulin Ratio Triglycerides Cholesterol LDL Cholesterol, Calc VLDL Cholesterol HDL Cholesterol LDL/HDL Ratio Cholesterol/HDL Ratio TSH Free T4 Direct Thyroxine (T4) Free T3 pg/mL Total T3 Urine Color Urine Clarity Urine pH Ur Specific [place] Urine Protein Urine Glucose (UA) Urine Ketones Urine Occult Blood Urine Nitrite Urine Bilirubin Urine Urobilinogen Ur Leukocyte Esterase Ur Microscopic Review Urine Culture Comments 10/21/24 10/22/24 10/22/24 20:02 00:05 03:13 WBC RBC Hgb Hct MCV MCH MCHC RDW Plt Count MPV Neut # (Auto) Lymph # (Auto) [place] # (Auto) Eos # (Auto) Baso # (Auto) Absolute Nucleated RBC Band Neuts % (Manual) Abnorm Lymph % (Manual) Nucleated RBC % Neutrophils # (Manual) Lymphocytes # (Manual) Monocytes # (Manual) Eosinophils # (Manual) Basophils # (Manual) Differential Comment WBC Morphology Platelet Estimate Platelet Morphology RBC Morph Micro Appear Sodium Potassium Chloride Carbon Dioxide Anion Gap BUN Creatinine Estimated GFR (MDRD) Glucose POC Whole Bld Glucose 106 74 135 Estimat Average Glucose Hemoglobin A1c % Calcium Magnesium Iron TIBC % Saturation Transferrin Total Bilirubin AST ALT Alkaline Phosphatase Ammonia Troponin I High Sens Total Protein Albumin Globulin Albumin/Globulin Ratio Triglycerides Cholesterol LDL Cholesterol, Calc VLDL Cholesterol HDL Cholesterol LDL/HDL Ratio Cholesterol/HDL Ratio TSH Free T4 Direct Thyroxine (T4) Free T3 pg/mL Total T3 Urine Color Urine Clarity Urine pH Ur Specific [place] Urine Protein Urine Glucose (UA) Urine Ketones Urine Occult Blood Urine Nitrite Urine Bilirubin Urine Urobilinogen Ur Leukocyte Esterase Ur Microscopic Review Urine Culture Comments 10/22/24 10/22/24 10/22/24 05:17 05:55 07:38 WBC 6.0 RBC 3.41 L Hgb 9.9 L Hct 30.7 L MCV 90.0 MCH 29.0 MCHC 32.2 RDW 14.8 Plt Count 96 L MPV 10.8 Neut # (Auto) Lymph # (Auto) [place] # (Auto) Eos # (Auto) Baso # (Auto) Absolute Nucleated RBC Band Neuts % (Manual) Abnorm Lymph % (Manual) Nucleated RBC % Neutrophils # (Manual) Lymphocytes # (Manual) Monocytes # (Manual) Eosinophils # (Manual) Basophils # (Manual) Differential Comment WBC Morphology Platelet Estimate Platelet Morphology RBC Morph Micro Appear Sodium 140 Potassium 5.0 H Chloride 113 H Carbon Dioxide 26 Anion Gap 1.0 L BUN 16 Creatinine 0.7 Estimated GFR (MDRD) 84 L Glucose 86 POC Whole Bld Glucose 87 75 Estimat Average Glucose Hemoglobin A1c % Calcium 9.3 Magnesium 1.5 L Iron TIBC % Saturation Transferrin Total Bilirubin AST ALT Alkaline Phosphatase Ammonia Troponin I High Sens Total Protein Albumin Globulin Albumin/Globulin Ratio Triglycerides Cholesterol LDL Cholesterol, Calc VLDL Cholesterol HDL Cholesterol LDL/HDL Ratio Cholesterol/HDL Ratio TSH Free T4 Direct Thyroxine (T4) Free T3 pg/mL Total T3 Urine Color Urine Clarity Urine pH Ur Specific [place] Urine Protein Urine Glucose (UA) Urine Ketones Urine Occult Blood Urine Nitrite Urine Bilirubin Urine Urobilinogen Ur Leukocyte Esterase Ur Microscopic Review Urine Culture Comments 10/22/24 10/22/24 09:35 11:08 WBC RBC Hgb Hct MCV MCH MCHC RDW Plt Count MPV Neut # (Auto) Lymph # (Auto) [place] # (Auto) Eos # (Auto) Baso # (Auto) Absolute Nucleated RBC Band Neuts % (Manual) Abnorm Lymph % (Manual) Nucleated RBC % Neutrophils # (Manual) Lymphocytes # (Manual) Monocytes # (Manual) Eosinophils # (Manual) Basophils # (Manual) Differential Comment WBC Morphology Platelet Estimate Platelet Morphology RBC Morph Micro Appear Sodium Potassium Chloride Carbon Dioxide Anion Gap BUN Creatinine Estimated GFR (MDRD) Glucose POC Whole Bld Glucose 89 Estimat Average Glucose Hemoglobin A1c % Calcium Magnesium Iron TIBC % Saturation Transferrin Total Bilirubin AST ALT Alkaline Phosphatase Ammonia 22.8 Troponin I High Sens Total Protein Albumin Globulin Albumin/Globulin Ratio Triglycerides Cholesterol LDL Cholesterol, Calc VLDL Cholesterol HDL Cholesterol LDL/HDL Ratio Cholesterol/HDL Ratio TSH 10.59 H Free T4 Direct 0.95 Thyroxine (T4) Free T3 pg/mL Total T3 Urine Color Urine Clarity Urine pH Ur Specific [place] Urine Protein Urine Glucose (UA) Urine Ketones Urine Occult Blood Urine Nitrite Urine Bilirubin Urine Urobilinogen Ur Leukocyte Esterase Ur Microscopic Review Urine Culture Comments PD Medical Decision Making ED course Complexity details: reviewed old records ED course: Pateint is a 64 yo female with history of alcoholism, crohns wiht colostomy presents to the ED with for persistent encephalopathy. He notes she has been diagnosed with a UTI she was seen here yesterday but brought home on a new ABX for UTI but continues to have persistent symptoms. Vitals on arrival are stable Physical exam, pateint is A& O x 3 but per has been unable to perform normal activities of daily living. patient in no acute distress, normal cardiac and lung sounds on arrival. PLabs here in the ED did show mild hypoglycemia but pateint was given juice s hortly after and improved here in the ED. Urine is clear and labs other kaba are reassuring. No luekocytosis noted and pateint in no acute distress. Patient admitted for persistent encephalopathy she was hypoglycemic on arrival this improved after patient was able to eat and drink. Patient admitted to the hospitalist who is agreeable with this plan. Patient did take her ciprofloxacin this afternoon. Discharge Plan Discharge Patient Disposition: [facility] DC/Xfer Interventions: ED Admission Assessment Last Done: 10/20/24 01:25
[2024-10-19] MEDS ORDERED: MORPHINE 10 MG/ML VIAL IVP PRN (22:46)
[2024-10-19] MEDS ORDERED: ONDANSETRON 4 MG/2 ML VIAL IVP PRN (22:46)
[2024-10-19] MEDS ORDERED: BENZONATATE 100 MG CAPSULE PO PRN (22:46)
--- NOTE | 2024-10-19 22:51 | HISTORY & PHYSICAL EXAMINATION ---
Chief Complaint Chief Complaint Chief Complaint: ams, low blood sugar, weakness History of Present Illness History of Present Illness HPI Comment/Other: pt with waxing and waning confusion and weakness over past 3 days. no focal deficits. h/o etoh abuse in remission, along with sepsis / bacteremia from uti. was seen in clinic and given course of macrobid but presented to ed in last 24 hours with continued confusion / encephalopathy but declined admission. given rx for cipro. returns again as states pt is looking and feeling weaker. no chest pain, falls, seizures, n/v/d. pt denies flank pain but has some suprapubic discomfort. no dysuria or hematuria. Review of Systems Status of ROS: 10 or more systems reviewed and unremarkable except as noted in history and below PFSH Social History Social History Smoking Status: Never smoker Do you dip or chew tobacco?: No Do you vape?: No Patient requests smoking cessation consult: No Initiate information on smoking cessation: No Living arrangement: At home Living Condition: With spouse/s.o. Relationship: Spouse Level: Assisted Home Mobility Equipment: Walker and Wheelchair Do you feel safe in your home environment?: Yes Suffered physical, verbal, emotional, or financial abuse?: No History of Abuse: No ETOH Use: Other Frequency: Occasional Are you sexually active?: No POLST Patient has POLST: No POLST Status: Full Code Meds/Allgy Home Medications Ambulatory Orders Medication Instructions Recorded Confirmed ascorbic acid (vitamin C) 500 mg 500 mg PO DAILY 12/16/23 08/26/24 capsule gabapentin 300 mg capsule 300 mg PO 2200 12/16/23 08/26/24 gabapentin 100 mg capsule 100 mg PO 0600,1200,1800 05/13/24 08/26/24 tramadol 50 mg tablet 50 mg PO DAILY PRN Pain 5-7 05/13/24 08/26/24 amlodipine 5 mg tablet 5 mg PO DAILY 06/24/24 08/26/24 losartan 100 mg tablet 50 mg PO DAILY 08/26/24 08/26/24 magnesium 250 mg tablet 250 mg PO QDAY 08/26/24 08/26/24 polymyxin B sulfate 10,000 1 drp ophthalmic (eye) Q3H 7 days 08/26/24 08/26/24 unit-trimethoprim 1 mg/mL eye drops #10 mL ciprofloxacin HCl 500 mg tablet 500 mg PO BID #20 tabs 10/18/24 Allergies Allergies Allergy/AdvReac Type Severity Reaction Status Date / Time Penicillins Allergy Anaphylaxis Verified 10/19/24 20:08 vancomycin Allergy Rash Verified 10/19/24 20:08 methocarbamol AdvReac Dizziness Verified 10/19/24 20:08 Exam Constitutional normal general appearance and no apparent distress HENMT normocephalic, head/scalp atraumatic and hearing grossly normal bilaterally Eyes EOMs intact bilaterally Neck/C-Spine visual inspection normal Chest inspection of chest normal Respiratory no use of accessory muscles rest of details per ed charting Cardiovascular no edema rest of details per ed charting Gastrointestinal abdomen normal to inspection and nondistended Extremities normal to inspection Conclusion/Plan Problem List (1) Encephalopathy acute: Plan pt with - - toxic, metabolic encephalopathy no focal deficits waxing / waning, currently aaox3 likely d/t uti (below) with h/o bacteremia from same neuro checks, continue cipro, follow urine cultures - uti likely contributory to above h/o same with pyelonephritis + sepsis ua performed, with cultures pending continue cipro - elevated bun / uremia in setting of and contributory to above check renal us, continue IVF - hypoglycemia d/t decreased po intake in setting of above encourage po intake here, cardiac diet hypoglycemia protocol f/u labs, cultures, glucose levels, replete electrolytes further orders per clinical course Lab Results 10/19/24 20:43 10/19/24 20:43
[2024-10-19 23:09] LABS: CHOL/HDL RATIO 2.3 (<4.4); CHOLESTEROL 162 mg/dL; HDL CHOLESTEROL 72 mg/dL; LDL CHOLESTEROL,CALCULATED 62 mg/dL; LDL/HDL RATIO 0.9 (<4.4); TRIGLYCERIDES 139 mg/dL; VLDL CHOLESTEROL 28 mg/dL
[2024-10-19 23:19] LABS: THYROID STIMULATING HORMONE 12.03 uIU/mL (0.34-5.60)
[2024-10-20] MEDS: ACETAMINOPHEN 325 MG TABLET PO PRN (01:50)
[2024-10-20] MEDS: MELATONIN 3 MG TABLET PO PRN (01:50)
[2024-10-20] MEDS: LACTATED RINGERS 1,000 ML IV SCH (01:53)
--- NOTE | 2024-10-20 03:16 | PROVIDER PROGRESS NOTE ---
Production Counter Note Production Counter Note Production Counter Note: pt with fatigue + bradycardia with HR in 30s to 50s, likely d/t current presentation + hypoglycemia tsh noted to be >12, which would contribute to bradycardia and current symptoms of fatigue + ams prior tsh wnl will check full thyroid panel and iron panel am labs pending echo also ordered
--- NOTE | 2024-10-20 03:29 | PROVIDER PROGRESS NOTE ---
[employer] Salesperson Note [employer] Salesperson Note [employer] Sales[employer] Note: pt with continued hypoglycemia ivf changed to d5 1/2ns with kcl
[2024-10-20 03:42] LABS: BASOPHILS % (AUTO) 0.3 %; EOSINOPHILS # (AUTO) 0.1 10^3/uL (0.0-0.7); EOSINOPHILS % (AUTO) 2.1 %; HCT - HEMATOCRIT 31.2 % (37.0-47.0); HGB - HEMOGLOBIN 10.3 g/dL (12.0-16.0); LYMPHOCYTES # (AUTO) 0.3 10^3/uL (1.5-3.5); LYMPHOCYTES % (AUTO) 11.3 %; MEAN CORPUSCULAR HEMOGLOBIN 29.7 pg (27.0-31.0); MEAN CORPUSCULAR VOLUME 89.9 fL (81.0-99.0); MEAN PLATELET VOLUME 10.2 fL (7.9-10.8); MONOCYTES # (AUTO) 0.2 10^3/uL (0.0-1.0); MONOCYTES % (AUTO) 5.8 %; NEUTROPHILS # (AUTO) 2.3 10^3/uL (1.5-6.6); NEUTROPHILS % (AUTO) 79.8 %; PLT - PLATELET COUNT 99 10^3/uL (130-450); RED BLOOD COUNT 3.47 10^6/uL (4.20-5.40); RED CELL DISTRIBUTION WIDTH 14.6 % (12.0-15.0); WHITE BLOOD COUNT 2.9 x10^3/uL (4.8-10.8)
[2024-10-20] MEDS: D5.45NS W/20 MEQ KCL 1,000 ML IV SCH (03:45)
[2024-10-20 03:52] LABS: MAGNESIUM 1.9 mg/dL (1.7-2.3)
[2024-10-20 03:58] LABS: ALBUMIN 3.4 g/dL (3.2-5.5); ALBUMIN/GLOBULIN RATIO 1.1 (1.0-2.2); BILIRUBIN,TOTAL 0.2 mg/dL (0.2-1.0); CALCIUM 9.9 mg/dL (8.5-10.3); CREATININE 0.7 mg/dL (0.6-1.3); POTASSIUM 4.9 mmol/L (3.5-4.5); TOTAL PROTEIN 6.4 g/dL (6.4-8.9)
[2024-10-20 04:01] LABS: TROPONIN I HIGH SENSITIVITY 9.4 ng/L (2.3-14.8)
[2024-10-20 04:08] LABS: DIFFERENTIAL COMMENT MANUAL=AUTO DIFF; PLATELET ESTIMATE, MANUAL DECREASED (<130,000) (NORMAL); PLATELET MORPHOLOGY NORMAL APPEARANCE (NORMAL); RBC MORPHOLOGY (MULTIPLE) NORMAL APPEARANCE (NORMAL); WBC MORPHOLOGY (MULTIPLE) 1+ TOXIC GRANULATION (NORMAL)
[2024-10-20] MEDS: DEXTROSE 5%-0.45% NACL 1,000 ML IV SCH (04:56)
[2024-10-20] MEDS ORDERED: LACTATED RINGERS 1,000 ML IV SCH (05:00)
[2024-10-20] MEDS: GABAPENTIN 100 MG CAPSULE PO SCH (05:01)
[2024-10-20] MEDS ORDERED: POTASSIUM CHLOR 10 MEQ/100 ML 10 MEQ/100 ML BAG IV SCH (08:00)
[2024-10-20] MEDS ORDERED: amLODIPine 5 MG TABLET PO SCH (09:00)
[2024-10-20] MEDS ORDERED: CIPROFLOXACIN 250 MG TABLET PO SCH (09:00)
[2024-10-20] MEDS ORDERED: LOSARTAN 50 MG TABLET PO SCH (09:00)
[2024-10-20] MEDS: MAGNESIUM OXIDE 400 MG TABLET PO SCH (09:01)
[2024-10-20] MEDS: ENOXAPARIN 40 MG/0.4 ML SYRINGE SUBQ SCH (09:01)
[2024-10-20] MEDS: ASCORBIC ACID 500 MG TABLET PO SCH (09:01)
[2024-10-20] MEDS: cefTRIAXone 1 GM VIAL IVP SCH (09:01)
[2024-10-20] MEDS: LACTOBACILLUS RHAMNOSUS GG CAPSULE PO SCH (09:01)
--- NOTE | 2024-10-20 09:25 | PROVIDER PROGRESS NOTE ---
Subjective Subjective Subjective: Patient is a 64-year-old female with a history of ulcerative colitis on Humira, ostomy bag in place, MSSA bacteremia with sepsis and 07/2023, former alcohol use, currently in remission, who presents with altered mentation and weakness. Patient states that she was confused at home, and her got worried, and brought her in. ED documentation is reviewedshe was seen in clinic on Monday, and started on Macrobid. Despite that, she was becoming more weak and confused. She has been eating and drinking less at home. Her colostomy output has been largely the same. In the ED, she was found to be leukopenic with white count of 2.9, platelets were low at 99, potassium was mildly elevated at 4.9, sodium was 141. She was persistently hypoglycemic with sugars in the 60s. She was started on D5 normal saline overnight. UA was negative for leukocyte esterase, nitrites, etc. however, patient was taking antibiotics at home already, so this may be falsely sterilized. Urine culture was done at the clinic she went to on Monday, and this is not resulted yet. This morning, she is feeling much better. She is eating and drinking well. She is alert and oriented x 4. She has no focal deficits. She does endorse some dysuria still. Overnight, she was retaining urine, so they did place a Ocasio. Current Medications Current Medications Current Medications: Current Medications Generic Name Dose Route Start Last Admin Trade Name Freq PRN Reason Stop Dose Admin Acetaminophen 650 mg 10/19/24 22:46 10/20/24 01:50 Acetaminophen 325 Mg Tablet PO 650 mg Q6H PRN Administration pain, fever Ascorbic Acid 500 mg 10/20/24 09:00 10/20/24 09:01 Ascorbic Acid 500 Mg Tablet PO 500 mg DAILY FRANK Administration Benzonatate 100 mg 10/19/24 22:46 Benzonatate 100 Mg Capsule PO TID PRN Cough Ceftriaxone Sodium 1 gm 10/20/24 09:00 10/20/24 09:01 Ceftriaxone 1 Gm Vial IVP 1 gm DAILY FRANK Administration Enoxaparin Sodium 40 mg 10/20/24 09:00 10/20/24 09:01 Enoxaparin 40 Mg/0.4 Ml Syringe SUBQ 40 mg DAILY FRANK Administration Gabapentin 100 mg 10/20/24 06:00 10/20/24 05:01 Gabapentin 100 Mg Capsule PO 100 mg 0600,1200,1800 FRANK Administration Dextrose/Sodium Chloride 1,000 mls @ 75 mls/hr 10/20/24 05:00 10/20/24 04:56 D5.45ns IV 75 mls/hr .[id number] FRANK Administration Lactobacillus Rhamnosus 1 cap 10/20/24 09:00 10/20/24 09:01 Lactobacillus Rhamnosus Gg Capsule PO 1 cap DAILY FRANK Administration Magnesium Oxide 400 mg 10/20/24 08:00 10/20/24 09:01 Magnesium Oxide 400 Mg Tablet PO 400 mg DAILYWM FRANK Administration Melatonin 3 mg 10/19/24 22:46 10/20/24 01:50 Melatonin 3 Mg Tablet PO 3 mg QPM PRN Administration sleep Ondansetron HCl 4 mg 10/19/24 22:46 Ondansetron 4 Mg/2 Ml Vial IVP Q8H PRN Nausea / Vomiting Objective Vital Signs/Intake & Output Reviewed Vital Signs: Yes Vital Signs: Vital Signs x48h Temp Pulse Resp BP Pulse Ox 10/20/24 09:02 96.8 F L 50 L 16 110/68 97 10/20/24 05:52 96.6 F L 52 L 16 107/69 97 Intake & Output: Intake & Output 10/17/24 10/18/24 10/19/24 10/20/24 23:59 23:59 23:59 23:59 Intake Total 707 / 707 Output Total 550 / 550 Balance 157 / 157 Weight (kg) 41.73 kg 40 kg Objective General Appearance: positive No acute distress, Alert and Other (appears older than stated age, underweight) Eyes Bilateral: positive Normal inspection, PERRL, EOMI and Conjunctivae nml ENT: positive ENT inspection nml, Pharynx nml and No signs of dehydration Neck: positive Nml inspection, Thyroid nml and No JVD Respiratory: positive Chest non-tender, No respiratory distress and Breath sounds nml; negative Wheezes, Rales or Rhonchi Cardiovascular: positive Regular rate & rhythm, No murmur and Bradycardia; negative Systolic murmur Abdomen: positive Non-tender, No organomegaly and Other (ostomy bag in place; only 200cc of stool output ); negative Guarding, Hepatomegaly or Splenomegaly Back: positive Nml inspection; negative CVA tenderness (R) or CVA tenderness (L) Skin: positive Color nml, No rash, Warm and Dry Extremities: positive Non-tender, Full ROM, Nml appearance and No pedal edema Neurologic/Psychiatric: positive Oriented x3, Mood/affect nml and Other (slow to respond) Lab Results 10/20/24 03:33 10/20/24 03:33 Other Labs: Lab Results x24hrs 10/20/24 10/20/24 10/20/24 Range/Units 03:48 03:33 03:23 WBC 2.9 L (4.8-10.8) x10^3/uL RBC 3.47 L (4.20-5.40) 10^6/uL Hgb 10.3 L (12.0-16.0) g/dL Hct 31.2 L (37.0-47.0) % MCV 89.9 (81.0-99.0) fL MCH 29.7 (27.0-31.0) pg MCHC 33.0 (32.0-36.0) g/dL RDW 14.6 (12.0-15.0) % Plt Count 99 L (130-450) 10^3/uL MPV 10.2 (7.9-10.8) fL Neut # (Auto) 2.3 (1.5-6.6) 10^3/uL Lymph # (Auto) 0.3 L (1.5-3.5) 10^3/uL [place] # (Auto) 0.2 (0.0-1.0) 10^3/uL Eos # (Auto) 0.1 (0.0-0.7) 10^3/uL Baso # (Auto) 0.0 (0.0-0.1) 10^3/uL Absolute Nucleated RBC 0.00 x10^3/uL Band Neuts % (Manual) Not Reportable Abnorm Lymph % (Manual) Not Reportable Nucleated RBC % 0.0 /100WBC Neutrophils # (Manual) Not Reportable Lymphocytes # (Manual) Not Reportable Monocytes # (Manual) Not Reportable Eosinophils # (Manual) Not Reportable Basophils # (Manual) Not Reportable Differential Comment MANUAL=AUTO DIFF WBC Morphology 1+ TOXIC GRANULATION (NORMAL) Platelet Estimate DECREASED (<130,000) (NORMAL) Platelet Morphology NORMAL APPEARANCE (NORMAL) RBC Morph Micro Appear NORMAL APPEARANCE (NORMAL) Sodium 141 (135-145) mmol/L Potassium 4.9 H (3.5-4.5) mmol/L Chloride 111 (101-111) mmol/L Carbon Dioxide 26 (21-32) mmol/L Anion Gap 4.0 L (6-13) BUN 24 H (6-20) mg/dL Creatinine 0.7 (0.6-1.3) mg/dL Estimated GFR (MDRD) 84 L (>89) Glucose 88 (74-104) mg/dL POC Whole Bld Glucose 124 68 (70-100) mg/dL Calcium 9.9 (8.5-10.3) mg/dL Magnesium 1.9 (1.7-2.3) mg/dL Iron 117 (50-212) ug/dL TIBC 269 (250-450) ug/dL % Saturation 44 (20-50) % Transferrin 192 L (203-362) mg/dL Total Bilirubin 0.2 (0.2-1.0) mg/dL AST 28 (10-42) IU/L ALT 30 (10-60) IU/L Alkaline Phosphatase 99 (42-121) IU/L Troponin I High Sens 9.4 (2.3-14.8) ng/L Total Protein 6.4 (6.4-8.9) g/dL Albumin 3.4 (3.2-5.5) g/dL Globulin 3.0 (2.1-4.2) g/dL Albumin/Globulin Ratio 1.1 (1.0-2.2) Triglycerides mg/dL Cholesterol ( - 200) mg/dL LDL Cholesterol, Calc ( - 129) mg/dL VLDL Cholesterol mg/dL HDL Cholesterol (60 - ) mg/dL LDL/HDL Ratio (<4.4) Cholesterol/HDL Ratio (<4.4) TSH (0.34-5.60) uIU/mL Free T4 Direct 0.97 (0.58-1.64) ng/dL Thyroxine (T4) 10.0 (6.1-12.2) ug/dL Free T3 pg/mL 2.82 (2.5-3.9) pg/mL Total T3 0.78 L (0.87-1.78) ng/mL Urine Color Urine Clarity (CLEAR) Urine pH (5.0-7.5) PH Ur Specific [place] (1.002-1.030) Urine Protein (NEGATIVE) mg/dL Urine Glucose (UA) (NEGATIVE) mg/dL Urine Ketones (NEGATIVE) mg/dL Urine Occult Blood (NEGATIVE) Urine Nitrite (NEGATIVE) Urine Bilirubin (NEGATIVE) Urine Urobilinogen (NORMAL) E.U./dL Ur Leukocyte Esterase (NEGATIVE) Ur Microscopic Review Urine Culture Comments 10/20/24 10/19/24 10/19/24 Range/Units 03:00 21:34 20:43 WBC 3.5 L (4.8-10.8) x10^3/uL RBC 3.65 L (4.20-5.40) 10^6/uL Hgb 10.9 L (12.0-16.0) g/dL Hct 33.2 L (37.0-47.0) % MCV 91.0 (81.0-99.0) fL MCH 29.9 (27.0-31.0) pg MCHC 32.8 (32.0-36.0) g/dL RDW 14.6 (12.0-15.0) % Plt Count 106 L (130-450) 10^3/uL MPV 10.7 (7.9-10.8) fL Neut # (Auto) 2.8 (1.5-6.6) 10^3/uL Lymph # (Auto) 0.3 L (1.5-3.5) 10^3/uL [place] # (Auto) 0.3 (0.0-1.0) 10^3/uL Eos # (Auto) 0.1 (0.0-0.7) 10^3/uL Baso # (Auto) 0.0 (0.0-0.1) 10^3/uL Absolute Nucleated RBC 0.02 x10^3/uL Band Neuts % (Manual) Abnorm Lymph % (Manual) Nucleated RBC % 0.6 /100WBC Neutrophils # (Manual) Lymphocytes # (Manual) Monocytes # (Manual) Eosinophils # (Manual) Basophils # (Manual) Differential Comment WBC Morphology (NORMAL) Platelet Estimate (NORMAL) Platelet Morphology (NORMAL) RBC Morph Micro Appear (NORMAL) Sodium 142 (135-145) mmol/L Potassium 4.8 H (3.5-4.5) mmol/L Chloride 111 (101-111) mmol/L Carbon Dioxide 25 (21-32) mmol/L Anion Gap 6.0 (6-13) BUN 27 H (6-20) mg/dL Creatinine 0.8 (0.6-1.3) mg/dL Estimated GFR (MDRD) 72 L (>89) Glucose 67 L (74-104) mg/dL POC Whole Bld Glucose 63 (70-100) mg/dL Calcium 10.2 (8.5-10.3) mg/dL Magnesium (1.7-2.3) mg/dL Iron (50-212) ug/dL TIBC (250-450) ug/dL % Saturation (20-50) % Transferrin (203-362) mg/dL Total Bilirubin 0.3 (0.2-1.0) mg/dL AST 35 (10-42) IU/L ALT 34 (10-60) IU/L Alkaline Phosphatase 114 (42-121) IU/L Troponin I High Sens (2.3-14.8) ng/L Total Protein 6.6 (6.4-8.9) g/dL Albumin 3.6 (3.2-5.5) g/dL Globulin 3.0 (2.1-4.2) g/dL Albumin/Globulin Ratio 1.2 (1.0-2.2) Triglycerides 139 mg/dL Cholesterol 162 ( - 200) mg/dL LDL Cholesterol, Calc 62 ( - 129) mg/dL VLDL Cholesterol 28 mg/dL HDL Cholesterol 72 (60 - ) mg/dL LDL/HDL Ratio 0.9 (<4.4) Cholesterol/HDL Ratio 2.3 (<4.4) TSH 12.03 H (0.34-5.60) uIU/mL Free T4 Direct (0.58-1.64) ng/dL Thyroxine (T4) (6.1-12.2) ug/dL Free T3 pg/mL (2.5-3.9) pg/mL Total T3 (0.87-1.78) ng/mL Urine Color YELLOW Urine Clarity CLEAR (CLEAR) Urine pH 6.0 (5.0-7.5) PH Ur Specific [place] 1.020 (1.002-1.030) Urine Protein NEGATIVE (NEGATIVE) mg/dL Urine Glucose (UA) NEGATIVE (NEGATIVE) mg/dL Urine Ketones NEGATIVE (NEGATIVE) mg/dL Urine Occult Blood NEGATIVE (NEGATIVE) Urine Nitrite NEGATIVE (NEGATIVE) Urine Bilirubin NEGATIVE (NEGATIVE) Urine Urobilinogen 0.2 (NORMAL) (NORMAL) E.U./dL Ur Leukocyte Esterase NEGATIVE (NEGATIVE) Ur Microscopic Review NOT INDICATED Urine Culture Comments NOT INDICATED Diagnostic Imaging Diagnostic Imaging Results: positive Final report reviewed Assessment/Plan Problem List (1) Encephalopathy acute: Impression: Patient presented due to worsening confusion, lethargy. This is improvedcurrently she is alert and oriented x 4, responsive to commands, answering questions appropriately. Likely due to hypoglycemia as well as urinary tract infection. Outpatient, she was receiving Macrobid for it. Here, we switched her to Rocephin. Continue D5 fluids today, continue to monitor glucose closely. Patient is eating more; will likely DC this tomorrow. (2) UTI (urinary tract infection): Impression: Continue Rocephin. Qualifiers: Hematuria presence: without hematuria Urinary tract infection type: a cute cystitis Qualified Code(s): N30.00 - Acute cystitis without hematuria (3) Hypoglycemia: Impression: Continue D5 at this time. Patient is eating more, will likely try to wean this off by tomorrow. (4) Ulcerative colitis, chronic: Impression: Patient with ulcerative colitis on Humira per notes. Has a colostomy in place on the right side. Current output is minimal, 200 cc since shift change. Continue to monitor. Qualifiers: Digestive disease complication type: without complication Ulcerative colitis location: unspecified ulcerative colitis location Qualified Code(s): K 51.90 - Ulcerative colitis, unspecified, without complications (5) History of colostomy: Impression: Patient with ulcerative colitis on Humira per notes. Has a colostomy in place on the right side. Current output is minimal, 200 cc since shift change. Continue to monitor. (6) Thrombocytopenia: Impression: Likely due to direct bone marrow suppression in setting of former chronic alcohol use. No active bleeding noted, continue to monitor. (7) Alcohol use: Impression: Former history of chronic alcohol use. Currently in remission. Not actively drinking. Continue multivitamin, thiamine, folic acid. (8) Hypertension: Impression: On amlodipine and losartan at home. Currently borderline low blood pressures; will hold. Qualifiers: Hypertension type: primary hypertension Qualified Code(s): I10 - Essential (primary) hypertension
[2024-10-20 10:11] LABS: ESTIMATED AVERAGE GLUCOSE 105 mg/dL (70-100); HEMOGLOBIN A1c% 5.3 % (4.27-6.07)
[2024-10-20] MEDS: PRENATAL VITAMIN TABLET PO SCH (11:55)
[2024-10-20] MEDS: THIAMINE 100 MG TABLET PO SCH (11:55)
--- NOTE | 2024-10-20 12:26 | PHARMACY PROGRESS NOTE ---
Best Possible Medication History Admit Date and Time: 10/19/24 312108 Home Medications Medication Instructions Recorded Confirmed Type gabapentin 300 mg capsule 300 mg PO 2200 12/16/23 10/20/24 History gabapentin 100 mg capsule 100 mg PO 0600,1200,1800 05/13/24 10/20/24 History tramadol 50 mg tablet 50 mg PO DAILY PRN Pain 5-7 05/13/24 10/20/24 History amlodipine 5 mg tablet 5 mg PO DAILY 06/24/24 10/20/24 History magnesium 250 mg tablet 250 mg PO QDAY 08/26/24 10/20/24 History ciprofloxacin HCl 500 mg tablet 500 mg PO BID #20 tabs 10/18/24 10/20/24 Rx naproxen sodium 220 mg tablet 220 mg PO Q8H PRN pain 10/20/24 10/20/24 History (Amanda) Processed by: Pharmacy Medications reviewed in ED?: No Medication History completed: Yes Patient Interview: Pt unable to participate Secondary Source(s): Prescription bottles, Spouse/Significant other, Pharmacy records and Insurance records [facility] Statement: As the person ultimately responsible for medication therapy, providers are able to order a medication from an existing home medication list in [facility] via the "Reconcile Routine" prior to Confirmation of that medication by sales support assistant. Such practice is discouraged except when the physician, in their clinical judgment, deems that a medical need exists for a medication without regard to previous use.
[2024-10-20 13:49] LABS: CALCIUM 8.7 mg/dL (8.5-10.3); CREATININE 0.8 mg/dL (0.6-1.3); POTASSIUM 4.5 mmol/L (3.5-4.5)
--- NOTE | 2024-10-20 19:24 | Ultrasound Report ---
PROCEDURE: US Renal (Retroperitoneal) INDICATIONS: fortunato, elevated bun TECHNIQUE: Real-time scanning was performed of the retroperitoneal organs, with image documentation. COMPARISON: CT abdomen pelvis without contrast 08/23/2023 FINDINGS: Please note that the examination was truncated due to limited patient cooperation. Kidneys: Kidneys are normal in size. Right kidney measures 8.3 cm long; left kidney measures 8.0 cm long. Right renal cortical thickness is 0.5 cm; left renal cortical thickness is 0.8 cm. No solid masses, hydronephrosis, or nephrolithiasis. Bladder: Not imaged Miscellaneous: No free abdominal fluid. IMPRESSION: Bilateral renal atrophy without hydronephrosis or obstructive urolithiasis. Reviewed by: Marcio Wise MD on 10/20/2024 7:23 PM PST Approved by: Marcio Wise MD on 10/20/2024 7:23 PM PST Station ID: [id number]
[2024-10-21 05:54] LABS: HCT - HEMATOCRIT 29.9 % (37.0-47.0); HGB - HEMOGLOBIN 9.5 g/dL (12.0-16.0); MEAN CORPUSCULAR HEMOGLOBIN 29.3 pg (27.0-31.0); MEAN CORPUSCULAR HGB CONC 31.8 g/dL (32.0-36.0); MEAN CORPUSCULAR VOLUME 92.3 fL (81.0-99.0); MEAN PLATELET VOLUME 10.5 fL (7.9-10.8); RED BLOOD COUNT 3.24 10^6/uL (4.20-5.40); RED CELL DISTRIBUTION WIDTH 14.8 % (12.0-15.0); WHITE BLOOD COUNT 3.4 x10^3/uL (4.8-10.8)
[2024-10-21 06:05] LABS: CALCIUM 9.2 mg/dL (8.5-10.3); CREATININE 0.7 mg/dL (0.6-1.3)
--- NOTE | 2024-10-21 08:31 | PROVIDER PROGRESS NOTE ---
Subjective Subjective Subjective: Patient is a 64-year-old female with a history of Chrons disease previously on Humira, ostomy bag in place, MSSA bacteremia with sepsis in 07/2023, former alcohol use, currently in remission, who presents with altered mentation and weakness. Patient states that she was confused at home, and her got worried, and brought her in. ED documentation is reviewedshe was seen in clinic on Monday, and started on Macrobid. Despite that, she was becoming more weak and confused. She has been eating and drinking less at home. Her colostomy output has been largely the same. In the ED, she was found to be leukopenic with white count of 2.9, platelets were low at 99, potassium was mildly elevated at 4.9, sodium was 141. She was persistently hypoglycemic with sugars in the 60s. She was started on D5 normal saline overnight. UA was negative for leukocyte esterase, nitrites, etc. however, patient was taking antibiotics at home already, so this may be falsely sterilized. Urine culture was done at the clinic she went to on Monday, and this is not resulted yet. This morning, she is doing better. She is eating and drinking well. She is alert and oriented x 4. She is lethargic and tired though. She has not been able to get out of bed. She has no focal deficits. She does endorse some dysuria still. She was retaining urine, so they did place a Ocasio overnight. Current Medications Current Medications Current Medications: Current Medications Generic Name Dose Route Start Last Admin Trade Name Freq PRN Reason Stop Dose Admin Acetaminophen 650 mg 10/19/24 22:46 10/20/24 01:50 Acetaminophen 325 Mg Tablet PO 650 mg Q6H PRN Administration pain, fever Ascorbic Acid 500 mg 10/20/24 09:00 10/21/24 08:09 Ascorbic Acid 500 Mg Tablet PO 500 mg DAILY FRANK Administration Benzonatate 100 mg 10/19/24 22:46 Benzonatate 100 Mg Capsule PO TID PRN Cough Ceftriaxone Sodium 1 gm 10/20/24 09:00 10/21/24 08:09 Ceftriaxone 1 Gm Vial IVP 1 gm DAILY FRANK Administration Enoxaparin Sodium 40 mg 10/20/24 09:00 10/21/24 08:09 Enoxaparin 40 Mg/0.4 Ml Syringe SUBQ 40 mg DAILY FRANK Administration Gabapentin 100 mg 10/20/24 06:00 10/21/24 05:43 Gabapentin 100 Mg Capsule PO 100 mg 0600,1200,1800 FRANK Administration Lactobacillus Rhamnosus 1 cap 10/20/24 09:00 10/21/24 08:09 Lactobacillus Rhamnosus Gg Capsule PO 1 cap DAILY FRANK Administration Magnesium Oxide 400 mg 10/20/24 08:00 10/21/24 08:09 Magnesium Oxide 400 Mg Tablet PO 400 mg DAILYWM FRANK Administration Melatonin 3 mg 10/19/24 22:46 10/20/24 01:50 Melatonin 3 Mg Tablet PO 3 mg QPM PRN Administration sleep Ondansetron HCl 4 mg 10/19/24 22:46 Ondansetron 4 Mg/2 Ml Vial IVP Q8H PRN Nausea / Vomiting Multivit/Folic Acid/Iron 1 tab 10/20/24 11:00 10/21/24 08:09 Vitamin Tablet PO 1 tab DAILYWM FRANK Administration Thiamine HCl 100 mg 10/20/24 11:00 10/21/24 08:09 Thiamine 100 Mg Tablet PO 100 mg DAILY FRANK Administration Objective Vital Signs/Intake & Output Reviewed Vital Signs: Yes Vital Signs: Vital Signs x48h Temp Pulse Resp BP Pulse Ox 10/21/24 04:30 97.2 F L 58 L 16 116/75 97 Intake & Output: Intake & Output 10/18/24 10/19/24 10/20/24 10/21/24 23:59 23:59 23:59 23:59 Intake Total 2955 / 2955 340 / 340 Output Total 1875 / 1875 850 / 850 Balance 1080 / 1080 -510 / -510 Weight (kg) 41.73 kg 40 kg Objective General Appearance: positive No acute distress, Alert and Other (appears older than stated age, underweight) Eyes Bilateral: positive Normal inspection, PERRL, EOMI and Conjunctivae nml ENT: positive ENT inspection nml, Pharynx nml and No signs of dehydration Neck: positive Nml inspection, Thyroid nml and No JVD Respiratory: positive Chest non-tender, No respiratory distress and Breath sounds nml; negative Wheezes, Rales or Rhonchi Cardiovascular: positive Regular rate & rhythm, No murmur and Bradycardia; negative Systolic murmur Abdomen: positive Non-tender, No organomegaly and Other (ostomy bag in place; only 200cc of stool output ); negative Guarding, Hepatomegaly or Splenomegaly Back: positive Nml inspection; negative CVA tenderness (R) or CVA tenderness (L) Skin: positive Color nml, No rash, Warm and Dry Extremities: positive Non-tender, Full ROM, Nml appearance and No pedal edema Neurologic/Psychiatric: positive Oriented x3, Mood/affect nml and Other (slow to respond) Lab Results 10/21/24 05:33 10/21/24 05:33 Other Labs: Lab Results x24hrs 10/21/24 10/21/24 10/20/24 Range/Units 05:33 01:57 23:44 WBC 3.4 L (4.8-10.8) x10^3/uL RBC 3.24 L (4.20-5.40) 10^6/uL Hgb 9.5 L (12.0-16.0) g/dL Hct 29.9 L (37.0-47.0) % MCV 92.3 (81.0-99.0) fL MCH 29.3 (27.0-31.0) pg MCHC 31.8 L (32.0-36.0) g/dL RDW 14.8 (12.0-15.0) % Plt Count 99 L (130-450) 10^3/uL MPV 10.5 (7.9-10.8) fL Sodium 141 (135-145) mmol/L Potassium 5.0 H (3.5-4.5) mmol/L Chloride 113 H (101-111) mmol/L Carbon Dioxide 25 (21-32) mmol/L Anion Gap 3.0 L (6-13) BUN 16 (6-20) mg/dL Creatinine 0.7 (0.6-1.3) mg/dL Estimated GFR (MDRD) 84 L (>89) Glucose 88 (74-104) mg/dL POC Whole Bld Glucose 101 79 (70-100) mg/dL Estimat Average Glucose (70-100) mg/dL Hemoglobin A1c % (4.27-6.07) % Calcium 9.2 (8.5-10.3) mg/dL 10/20/24 10/20/24 10/20/24 Range/Units 20:55 16:37 13:11 WBC (4.8-10.8) x10^3/uL RBC (4.20-5.40) 10^6/uL Hgb (12.0-16.0) g/dL Hct (37.0-47.0) % MCV (81.0-99.0) fL MCH (27.0-31.0) pg MCHC (32.0-36.0) g/dL RDW (12.0-15.0) % Plt Count (130-450) 10^3/uL MPV (7.9-10.8) fL Sodium 140 (135-145) mmol/L Potassium 4.5 (3.5-4.5) mmol/L Chloride 107 (101-111) mmol/L Carbon Dioxide 26 (21-32) mmol/L Anion Gap 7.0 (6-13) BUN 22 H (6-20) mg/dL Creatinine 0.8 (0.6-1.3) mg/dL Estimated GFR (MDRD) 72 L (>89) Glucose 76 (74-104) mg/dL POC Whole Bld Glucose 96 105 (70-100) mg/dL Estimat Average Glucose (70-100) mg/dL Hemoglobin A1c % (4.27-6.07) % Calcium 8.7 (8.5-10.3) mg/dL 10/20/24 10/19/24 Range/Units 11:46 20:43 WBC (4.8-10.8) x10^3/uL RBC (4.20-5.40) 10^6/uL Hgb (12.0-16.0) g/dL Hct (37.0-47.0) % MCV (81.0-99.0) fL MCH (27.0-31.0) pg MCHC (32.0-36.0) g/dL RDW (12.0-15.0) % Plt Count (130-450) 10^3/uL MPV (7.9-10.8) fL Sodium (135-145) mmol/L Potassium (3.5-4.5) mmol/L Chloride (101-111) mmol/L Carbon Dioxide (21-32) mmol/L Anion Gap (6-13) BUN (6-20) mg/dL Creatinine (0.6-1.3) mg/dL Estimated GFR (MDRD) (>89) Glucose (74-104) mg/dL POC Whole Bld Glucose 113 (70-100) mg/dL Estimat Average Glucose 105 H (70-100) mg/dL Hemoglobin A1c % 5.3 (4.27-6.07) % Calcium (8.5-10.3) mg/dL Diagnostic Imaging Diagnostic Imaging Results: positive Final report reviewed Assessment/Plan Problem List (1) Encephalopathy acute: Impression: Patient presented due to worsening confusion, lethargy. This is improvedcurrently she is alert and oriented x 4, responsive to commands, answering questions appropriately. Remains lethargic and weak; may need rehab on discharge. PT/OT to evaluate tomorrow. Likely due to hypoglycemia as well as urinary tract infection. Outpatient, she was receiving Macrobid for it. Here, we switched her to Rocephin. Eating more today, hold D5 fluids today, continue to monitor glucose closely. (2) UTI (urinary tract infection): Impression: Continue Rocephin. Qualifiers: Hematuria presence: without hematuria Urinary tract infection type: a cute cystitis Qualified Code(s): N30.00 - Acute cystitis without hematuria (3) Hypoglycemia: Impression: Eating more today, hold D5 fluids today, continue to monitor glucose closely. (4) History of colostomy: Impression: Patient with Chron's. Required colostomy. Previously on Isabella. Has a colostomy in place on the right side. Current output is minimal. Continue to monitor. (5) Thrombocytopenia: Impression: Likely due to direct bone marrow suppression in setting of former chronic alcohol use. No active bleeding noted, continue to monitor. (6) Alcohol use: Impression: Former history of chronic alcohol use. Currently in remission. Not actively drinking. Continue multivitamin, thiamine, folic acid. (7) Hypertension: Impression: On amlodipine and losartan at home. Currently borderline low blood pressures; will hold. Qualifiers: Hypertension type: primary hypertension Qualified Code(s): I10 - Essential (primary) hypertension (8) Crohn's disease: Impression: Patient with Chron's. Required colostomy. Previously on Isabella. Has a colostomy in place on the right side. Current output is minimal. Continue to monitor. Qualifiers: Digestive disease complication type: unspecified complication G astrointestinal tract location: unspecified location Qualified Code(s): K50.919 - Crohn's disease, unspecified, with unspecified complications
[2024-10-21] MEDS: CHOLECALCIFEROL 25 MCG TABLET PO SCH (12:11)
--- NOTE | 2024-10-22 00:37 | PROVIDER PROGRESS NOTE ---
Engineering And Scientific Programmer Note Engineering And Scientific Programmer Note Engineering And Scientific Programmer Note: pt with weakness and ams blood sugar in 70s d50 amp now start d5-1/2ns @ 100/hr continue monitoring
[2024-10-22] MEDS: DEXTROSE 5%-0.45% NACL 1,000 ML IV SCH (00:56)
[2024-10-22] MEDS: DEXTROSE 50% ABBOJECT 25 GM/50 ML SYRINGE IVP ONE (00:57)
[2024-10-22 05:33] LABS: HCT - HEMATOCRIT 30.7 % (37.0-47.0); HGB - HEMOGLOBIN 9.9 g/dL (12.0-16.0); MEAN CORPUSCULAR HGB CONC 32.2 g/dL (32.0-36.0); MEAN PLATELET VOLUME 10.8 fL (7.9-10.8); RED BLOOD COUNT 3.41 10^6/uL (4.20-5.40); RED CELL DISTRIBUTION WIDTH 14.8 % (12.0-15.0)
[2024-10-22 05:47] LABS: MAGNESIUM 1.5 mg/dL (1.7-2.3)
[2024-10-22 05:52] LABS: CALCIUM 9.3 mg/dL (8.5-10.3); CREATININE 0.7 mg/dL (0.6-1.3)
[2024-10-22] MEDS ORDERED: MAGNESIUM SULFATE 1 GM in SODIUM CHLORIDE 0.9% 50 ML IV ONE (09:13)
--- NOTE | 2024-10-22 09:16 | PROVIDER PROGRESS NOTE ---
Subjective Prog Note Date Prog Note Date: 10/22/24 Prog Note Time: 09:15 Subjective Subjective: Patient is a 64-year-old female with a history of Chrons disease previously on Humira, ostomy bag in place, MSSA bacteremia with sepsis in 07/2023, former alcohol use, currently in remission, who presents with altered mentation and weakness. Patient states that she was confused at home, and her got worried, and brought her in. ED documentation is reviewedshe was seen in clinic on Monday, and started on Macrobid. Despite that, she was becoming more weak and confused. She has been eating and drinking less at home. Her colostomy output has been largely the same. In the ED, she was found to be leukopenic with white count of 2.9, platelets were low at 99, potassium was mildly elevated at 4.9, sodium was 141. She was persistently hypoglycemic with sugars in the 60s. She was started on D5 normal saline overnight. UA was negative for leukocyte esterase, nitrites, etc. however, patient was taking antibiotics at home already, so this may be falsely sterilized. Urine culture was done at the clinic she went to on Monday, and this is not resulted yet. This morning, she is doing better. She is eating and drinking well. She is alert and oriented x 4. She is lethargic and tired though. She has not been able to get out of bed. She has no focal deficits. She does endorse some dysuria still. She was retaining urine, so they did place a Ocasio overnight. 10/22/2024: Patient is quite lethargic But alert and oriented x 4.Patient has no complaints. at bedside who confirms Patient's weakness and confusion over the last few days Current Medications Current Medications Current Medications: Current Medications Generic Name Dose Route Start Last Admin Trade Name Freq PRN Reason Stop Dose Admin Acetaminophen 650 mg 10/19/24 22:46 10/20/24 01:50 Acetaminophen 325 Mg Tablet PO 650 mg Q6H PRN Administration pain, fever Ascorbic Acid 500 mg 10/20/24 09:00 10/21/24 08:09 Ascorbic Acid 500 Mg Tablet PO 500 mg DAILY FRANK Administration Benzonatate 100 mg 10/19/24 22:46 Benzonatate 100 Mg Capsule PO TID PRN Cough Ceftriaxone Sodium 1 gm 10/20/24 09:00 10/22/24 08:12 Ceftriaxone 1 Gm Vial IVP 1 gm DAILY FRANK Administration Cholecalciferol 50 mcg 10/21/24 10:00 10/21/24 12:11 Cholecalciferol 25 Mcg Tablet PO 50 mcg DAILY FRANK Administration Enoxaparin Sodium 40 mg 10/20/24 09:00 10/21/24 08:09 Enoxaparin 40 Mg/0.4 Ml Syringe SUBQ 40 mg DAILY FRANK Administration Gabapentin 100 mg 10/20/24 06:00 10/22/24 06:08 Gabapentin 100 Mg Capsule PO Not Given 0600,1200,1800 FRANK Dextrose/Sodium Chloride 1,000 mls @ 100 mls/hr 10/22/24 01:00 10/22/24 00:56 D5.45ns IV 100 mls/hr .Q10H FRANK Administration Magnesium Sulfate 1 gm/ Sodium 52 mls @ 54 mls/hr 10/22/24 09:13 Chloride IV 10/22/24 10:10 ONCE ONE Lactobacillus Rhamnosus 1 cap 10/20/24 09:00 10/21/24 08:09 Lactobacillus Rhamnosus Gg Capsule PO 1 cap DAILY FRANK Administration Magnesium Oxide 400 mg 10/20/24 08:00 10/21/24 08:09 Magnesium Oxide 400 Mg Tablet PO 400 mg DAILYWM FRANK Administration Melatonin 3 mg 10/19/24 22:46 10/20/24 01:50 Melatonin 3 Mg Tablet PO 3 mg QPM PRN Administration sleep Ondansetron HCl 4 mg 10/19/24 22:46 Ondansetron 4 Mg/2 Ml Vial IVP Q8H PRN Nausea / Vomiting Multivit/Folic Acid/Iron 1 tab 10/20/24 11:00 10/21/24 08:09 Vitamin Tablet PO 1 tab DAILYWM FRANK Administration Thiamine HCl 100 mg 10/20/24 11:00 10/21/24 08:09 Thiamine 100 Mg Tablet PO 100 mg DAILY FRANK Administration Objective Vital Signs/Intake & Output Vital Signs: Vital Signs x48h Temp Pulse Resp BP BP Pulse Ox 10/22/24 08:43 36.1 C L 51 L 16 112/61 98 10/22/24 04:07 17 159/90 H 10/22/24 03:28 36.4 C L 63 12 91/67 98 Intake & Output: Intake & Output 10/19/24 10/20/24 10/21/24 10/22/24 23:59 23:59 23:59 23:59 Intake Total 2955 / 2955 1700 / 1700 120 / 120 Output Total 1875 / 1875 1725 / 1725 900 / 900 Balance 1080 / 1080 -25 / -25 -780 / -780 Weight (kg) 41.73 kg 40 kg Objective General Appearance: positive No acute distress, Alert and Lethargic Eyes Bilateral: positive Normal inspection and PERRL ENT: positive ENT inspection nml Neck: positive Nml inspection and Trachea midline Respiratory: positive Chest non-tender and No respiratory distress Cardiovascular: positive Regular rate & rhythm and No murmur Skin: positive Color nml and No rash Extremities: positive Non-tender and Full ROM Neurologic/Psychiatric: positive Oriented x3 and CN's nml (2-12) Lab Results 10/22/24 05:17 10/22/24 05:17 Other Labs: Lab Results x24hrs 10/22/24 10/22/24 10/22/24 Range/Units 07:38 05:55 05:17 WBC 6.0 (4.8-10.8) x10^3/uL RBC 3.41 L (4.20-5.40) 10^6/uL Hgb 9.9 L (12.0-16.0) g/dL Hct 30.7 L (37.0-47.0) % MCV 90.0 (81.0-99.0) fL MCH 29.0 (27.0-31.0) pg MCHC 32.2 (32.0-36.0) g/dL RDW 14.8 (12.0-15.0) % Plt Count 96 L (130-450) 10^3/uL MPV 10.8 (7.9-10.8) fL Sodium 140 (135-145) mmol/L Potassium 5.0 H (3.5-4.5) mmol/L Chloride 113 H (101-111) mmol/L Carbon Dioxide 26 (21-32) mmol/L Anion Gap 1.0 L (6-13) BUN 16 (6-20) mg/dL Creatinine 0.7 (0.6-1.3) mg/dL Estimated GFR (MDRD) 84 L (>89) Glucose 86 (74-104) mg/dL POC Whole Bld Glucose 75 87 (70-100) mg/dL Calcium 9.3 (8.5-10.3) mg/dL Magnesium 1.5 L (1.7-2.3) mg/dL 10/22/24 10/22/24 10/21/24 Range/Units 03:13 00:05 20:02 WBC (4.8-10.8) x10^3/uL RBC (4.20-5.40) 10^6/uL Hgb (12.0-16.0) g/dL Hct (37.0-47.0) % MCV (81.0-99.0) fL MCH (27.0-31.0) pg MCHC (32.0-36.0) g/dL RDW (12.0-15.0) % Plt Count (130-450) 10^3/uL MPV (7.9-10.8) fL Sodium (135-145) mmol/L Potassium (3.5-4.5) mmol/L Chloride (101-111) mmol/L Carbon Dioxide (21-32) mmol/L Anion Gap (6-13) BUN (6-20) mg/dL Creatinine (0.6-1.3) mg/dL Estimated GFR (MDRD) (>89) Glucose (74-104) mg/dL POC Whole Bld Glucose 135 74 106 (70-100) mg/dL Calcium (8.5-10.3) mg/dL Magnesium (1.7-2.3) mg/dL 10/21/24 10/21/24 10/21/24 Range/Units 16:54 15:19 12:52 WBC (4.8-10.8) x10^3/uL RBC (4.20-5.40) 10^6/uL Hgb (12.0-16.0) g/dL Hct (37.0-47.0) % MCV (81.0-99.0) fL MCH (27.0-31.0) pg MCHC (32.0-36.0) g/dL RDW (12.0-15.0) % Plt Count (130-450) 10^3/uL MPV (7.9-10.8) fL Sodium (135-145) mmol/L Potassium 4.8 H (3.5-4.5) mmol/L Chloride (101-111) mmol/L Carbon Dioxide (21-32) mmol/L Anion Gap (6-13) BUN (6-20) mg/dL Creatinine (0.6-1.3) mg/dL Estimated GFR (MDRD) (>89) Glucose (74-104) mg/dL POC Whole Bld Glucose 83 128 (70-100) mg/dL Calcium (8.5-10.3) mg/dL Magnesium (1.7-2.3) mg/dL 10/21/24 10/21/24 Range/Units 11:18 05:28 WBC (4.8-10.8) x10^3/uL RBC (4.20-5.40) 10^6/uL Hgb (12.0-16.0) g/dL Hct (37.0-47.0) % MCV (81.0-99.0) fL MCH (27.0-31.0) pg MCHC (32.0-36.0) g/dL RDW (12.0-15.0) % Plt Count (130-450) 10^3/uL MPV (7.9-10.8) fL Sodium (135-145) mmol/L Potassium (3.5-4.5) mmol/L Chloride (101-111) mmol/L Carbon Dioxide (21-32) mmol/L Anion Gap (6-13) BUN (6-20) mg/dL Creatinine (0.6-1.3) mg/dL Estimated GFR (MDRD) (>89) Glucose (74-104) mg/dL POC Whole Bld Glucose 87 87 (70-100) mg/dL Calcium (8.5-10.3) mg/dL Magnesium (1.7-2.3) mg/dL Diagnostic Imaging Diagnostic Imaging Results: positive Final report reviewed Assessment/Plan Problem List (1) Encephalopathy acute: Impression: Etiology most likely multifactorial, including weakness, UTI, episode of hypoglycemia and poor nutritional absorption. Patient is now n.p.o. due to increased lethargy. CT on admission was negative for any acute brain pathology. Obtain ammonia level, TSH, follow resolution of UTI. (2) UTI (urinary tract infection): Impression: Continue Rocephin day 3/5 Qualifiers: Hematuria presence: without hematuria Urinary tract infection type: a cute cystitis Qualified Code(s): N30.00 - Acute cystitis without hematuria (3) Hypoglycemia: Impression: Resolved Continue D5 half-normal. Obtain dietitian consult due to patient's malabsorption secondary to Crohn's disease. Patient may need NG tube For nutritional support if patient continues to be NPO. (4) History of colostomy: Impression: Patient with Chron's. Required colostomy. Previously on Isabella. Has a colostomy in place on the right side. Current output is minimal. Continue to monitor. (5) Thrombocytopenia: Impression: Chronic, most likely secondary to History of alcohol use disorder and Chronic poor nutrition In the background of Crohn's disease. No active bleeding noted, continue to monitor. (6) Alcohol use: Impression: No current alcohol use, continue folic acid, multivitamin and thiamine (7) Hypertension: Impression: Hydralazine as needed for SBP greater than 160 Hold patient's p.o. Antihypertensive medications Qualifiers: Hypertension type: primary hypertension Qualified Code(s): I10 - Essential (primary) hypertension (8) Crohn's disease: Impression: Patient with Chron's. Required colostomy. Previously on Isabella. Has a colostomy in place on the right side. Current output is minimal. Continue to monitor. Patient is now n.p.o. in the background of malabsorption. Consider NG placement If n.p.o. for more than 2 days Qualifiers: Digestive disease complication type: unspecified complication G astrointestinal tract location: unspecified location Qualified Code(s): K50.919 - Crohn's disease, unspecified, with unspecified complications
[2024-10-22] MEDS: MAGNESIUM SULFATE 2 GRAM 2 GM/50 ML BAG IV ONE (09:59)
[2024-10-22 10:10] LABS: THYROID STIMULATING HORMONE 10.59 uIU/mL (0.34-5.60)
[2024-10-23 05:12] LABS: BASOPHILS % (AUTO) 0.3 %; EOSINOPHILS % (AUTO) 1.3 %; HCT - HEMATOCRIT 31.4 % (37.0-47.0); HGB - HEMOGLOBIN 10.6 g/dL (12.0-16.0); LYMPHOCYTES # (AUTO) 0.3 10^3/uL (1.5-3.5); LYMPHOCYTES % (AUTO) 10.8 %; MEAN CORPUSCULAR HEMOGLOBIN 29.7 pg (27.0-31.0); MEAN CORPUSCULAR HGB CONC 33.8 g/dL (32.0-36.0); MEAN PLATELET VOLUME 10.6 fL (7.9-10.8); MONOCYTES # (AUTO) 0.2 10^3/uL (0.0-1.0); MONOCYTES % (AUTO) 5.1 %; NEUTROPHILS # (AUTO) 2.6 10^3/uL (1.5-6.6); NEUTROPHILS % (AUTO) 81.9 %; PLT - PLATELET COUNT 111 10^3/uL (130-450); RED BLOOD COUNT 3.57 10^6/uL (4.20-5.40); RED CELL DISTRIBUTION WIDTH 14.5 % (12.0-15.0); WHITE BLOOD COUNT 3.2 x10^3/uL (4.8-10.8)
[2024-10-23 05:17] LABS: CALCIUM 9.3 mg/dL (8.5-10.3); CREATININE 0.6 mg/dL (0.6-1.3); POTASSIUM 4.7 mmol/L (3.5-4.5)
--- NOTE | 2024-10-23 08:52 | PROVIDER PROGRESS NOTE ---
Subjective Prog Note Date Prog Note Date: 10/23/24 Prog Note Time: 08:41 Subjective Subjective: Patient is a 64-year-old female with a history of Chrons disease previously on Humira, ostomy bag in place, MSSA bacteremia with sepsis in 07/2023, former alcohol use, currently in remission, who presents with altered mentation and weakness. Patient states that she was confused at home, and her got worried, and brought her in. ED documentation is reviewedshe was seen in clinic on Monday, and started on Macrobid. Despite that, she was becoming more weak and confused. She has been eating and drinking less at home. Her colostomy output has been largely the same. In the ED, she was found to be leukopenic with white count of 2.9, platelets were low at 99, potassium was mildly elevated at 4.9, sodium was 141. She was persistently hypoglycemic with sugars in the 60s. She was started on D5 normal saline overnight. UA was negative for leukocyte esterase, nitrites, etc. however, patient was taking antibiotics at home already, so this may be falsely sterilized. Urine culture was done at the clinic she went to on Monday, and this is not resulted yet. This morning, she is doing better. She is eating and drinking well. She is alert and oriented x 4. She is lethargic and tired though. She has not been able to get out of bed. She has no focal deficits. She does endorse some dysuria still. She was retaining urine, so they did place a Ocasio overnight. 10/22/2024: Patient is quite lethargic But alert and oriented x 4.Patient has no complaints. at bedside who confirms Patient's weakness and confusion over the last few days 10/23/2024: Patient is still very lethargic. But oriented and alert x 4 when waking up. Patient has no complaints. is at bedside who would like patient to be transferred for possible feeding tube placement vs some other nutritional support Current Medications Current Medications Current Medications: Current Medications Generic Name Dose Route Start Last Admin Trade Name Freq PRN Reason Stop Dose Admin Acetaminophen 650 mg 10/19/24 22:46 10/20/24 01:50 Acetaminophen 325 Mg Tablet PO 650 mg Q6H PRN Administration pain, fever Ascorbic Acid 500 mg 10/20/24 09:00 10/22/24 19:31 Ascorbic Acid 500 Mg Tablet PO Not Given DAILY [facility] Benzonatate 100 mg 10/19/24 22:46 Benzonatate 100 Mg Capsule PO TID PRN Cough Ceftriaxone Sodium 1 gm 10/20/24 09:00 10/22/24 08:12 Ceftriaxone 1 Gm Vial IVP 1 gm DAILY FRANK Administration Cholecalciferol 50 mcg 10/21/24 10:00 10/22/24 19:32 Cholecalciferol 25 Mcg Tablet PO Not Given DAILY [facility] Enoxaparin Sodium 40 mg 10/20/24 09:00 10/22/24 19:32 Enoxaparin 40 Mg/0.4 Ml Syringe SUBQ Not Given DAILY [facility] Gabapentin 100 mg 10/20/24 06:00 10/23/24 06:00 Gabapentin 100 Mg Capsule PO Not Given 0600,1200,1800 [facility] Dextrose/Sodium Chloride 1,000 mls @ 125 mls/hr 10/22/24 01:00 10/23/24 06:00 D5.45ns IV 100 mls/hr .Q8H FRANK Administration Lactobacillus Rhamnosus 1 cap 10/20/24 09:00 10/22/24 19:33 Lactobacillus Rhamnosus Gg Capsule PO Not Given DAILY [facility] Magnesium Oxide 400 mg 10/20/24 08:00 10/22/24 19:31 Magnesium Oxide 400 Mg Tablet PO Not Given DAILYWM [facility] Melatonin 3 mg 10/19/24 22:46 10/20/24 01:50 Melatonin 3 Mg Tablet PO 3 mg QPM PRN Administration sleep Ondansetron HCl 4 mg 10/19/24 22:46 Ondansetron 4 Mg/2 Ml Vial IVP Q8H PRN Nausea / Vomiting Multivit/Folic Acid/Iron 1 tab 10/20/24 11:00 10/22/24 19:31 Vitamin Tablet PO Not Given DAILYWM [facility] Thiamine HCl 100 mg 10/20/24 11:00 10/22/24 19:33 Thiamine 100 Mg Tablet PO Not Given DAILY [facility] Objective Vital Signs/Intake & Output Vital Signs: Vital Signs x48h Temp Pulse Resp BP Pulse Ox 10/23/24 06:02 36.1 C L 56 L 16 175/76 H 98 Intake & Output: Intake & Output 10/20/24 10/21/24 10/22/24 10/23/24 23:59 23:59 23:59 23:59 Intake Total 2955 / 2955 1700 / 1700 2170 / 2170 818 / 818 Output Total 1875 / 1875 1725 / 1725 2125 / 2125 1550 / 1550 Balance 1080 / 1080 -25 / -25 45 / 45 -732 / -732 Weight (kg) 40 kg Objective General Appearance: positive No acute distress, Alert and Lethargic Eyes Bilateral: positive Normal inspection and PERRL ENT: positive ENT inspection nml Neck: positive Nml inspection and Trachea midline Respiratory: positive Chest non-tender and No respiratory distress Cardiovascular: positive Regular rate & rhythm and No murmur Skin: positive Color nml and No rash Extremities: positive Non-tender and Full ROM Neurologic/Psychiatric: positive Oriented x3 and CN's nml (2-12) Lab Results 10/23/24 04:30 10/23/24 04:30 Other Labs: Lab Results x24hrs 10/23/24 10/23/24 10/23/24 Range/Units 05:50 04:30 03:26 WBC 3.2 L (4.8-10.8) x10^3/uL RBC 3.57 L (4.20-5.40) 10^6/uL Hgb 10.6 L (12.0-16.0) g/dL Hct 31.4 L (37.0-47.0) % MCV 88.0 (81.0-99.0) fL MCH 29.7 (27.0-31.0) pg MCHC 33.8 (32.0-36.0) g/dL RDW 14.5 (12.0-15.0) % Plt Count 111 L (130-450) 10^3/uL MPV 10.6 (7.9-10.8) fL Neut # (Auto) 2.6 (1.5-6.6) 10^3/uL Lymph # (Auto) 0.3 L (1.5-3.5) 10^3/uL [place] # (Auto) 0.2 (0.0-1.0) 10^3/uL Eos # (Auto) 0.0 (0.0-0.7) 10^3/uL Baso # (Auto) 0.0 (0.0-0.1) 10^3/uL Absolute Nucleated RBC 0.00 x10^3/uL Nucleated RBC % 0.0 /100WBC Sodium 138 (135-145) mmol/L Potassium 4.7 H (3.5-4.5) mmol/L Chloride 110 (101-111) mmol/L Carbon Dioxide 26 (21-32) mmol/L Anion Gap 2.0 L (6-13) BUN 11 (6-20) mg/dL Creatinine 0.6 (0.6-1.3) mg/dL Estimated GFR (MDRD) 101 (>89) Glucose 105 H (74-104) mg/dL POC Whole Bld Glucose 93 103 (70-100) mg/dL Calcium 9.3 (8.5-10.3) mg/dL Ammonia (18-72) umol/L TSH (0.34-5.60) uIU/mL Free T4 Direct (0.58-1.64) ng/dL 10/23/24 10/22/24 10/22/24 Range/Units 00:13 21:32 18:02 WBC (4.8-10.8) x10^3/uL RBC (4.20-5.40) 10^6/uL Hgb (12.0-16.0) g/dL Hct (37.0-47.0) % MCV (81.0-99.0) fL MCH (27.0-31.0) pg MCHC (32.0-36.0) g/dL RDW (12.0-15.0) % Plt Count (130-450) 10^3/uL MPV (7.9-10.8) fL Neut # (Auto) (1.5-6.6) 10^3/uL Lymph # (Auto) (1.5-3.5) 10^3/uL [place] # (Auto) (0.0-1.0) 10^3/uL Eos # (Auto) (0.0-0.7) 10^3/uL Baso # (Auto) (0.0-0.1) 10^3/uL Absolute Nucleated RBC x10^3/uL Nucleated RBC % /100WBC Sodium (135-145) mmol/L Potassium (3.5-4.5) mmol/L Chloride (101-111) mmol/L Carbon Dioxide (21-32) mmol/L Anion Gap (6-13) BUN (6-20) mg/dL Creatinine (0.6-1.3) mg/dL Estimated GFR (MDRD) (>89) Glucose (74-104) mg/dL POC Whole Bld Glucose 83 79 109 (70-100) mg/dL Calcium (8.5-10.3) mg/dL Ammonia (18-72) umol/L TSH (0.34-5.60) uIU/mL Free T4 Direct (0.58-1.64) ng/dL 10/22/24 10/22/24 10/22/24 Range/Units 14:56 11:08 09:35 WBC (4.8-10.8) x10^3/uL RBC (4.20-5.40) 10^6/uL Hgb (12.0-16.0) g/dL Hct (37.0-47.0) % MCV (81.0-99.0) fL MCH (27.0-31.0) pg MCHC (32.0-36.0) g/dL RDW (12.0-15.0) % Plt Count (130-450) 10^3/uL MPV (7.9-10.8) fL Neut # (Auto) (1.5-6.6) 10^3/uL Lymph # (Auto) (1.5-3.5) 10^3/uL [place] # (Auto) (0.0-1.0) 10^3/uL Eos # (Auto) (0.0-0.7) 10^3/uL Baso # (Auto) (0.0-0.1) 10^3/uL Absolute Nucleated RBC x10^3/uL Nucleated RBC % /100WBC Sodium (135-145) mmol/L Potassium (3.5-4.5) mmol/L Chloride (101-111) mmol/L Carbon Dioxide (21-32) mmol/L Anion Gap (6-13) BUN (6-20) mg/dL Creatinine (0.6-1.3) mg/dL Estimated GFR (MDRD) (>89) Glucose (74-104) mg/dL POC Whole Bld Glucose 98 89 (70-100) mg/dL Calcium (8.5-10.3) mg/dL Ammonia 22.8 (18-72) umol/L TSH 10.59 H (0.34-5.60) uIU/mL Free T4 Direct 0.95 (0.58-1.64) ng/dL Diagnostic Imaging Diagnostic Imaging Results: positive Final report reviewed Assessment/Plan Problem List (1) Encephalopathy acute: Impression: Resolved Etiology most likely multifactorial, including weakness, UTI, episode of hypoglycemia and poor nutritional absorption. CT on admission was negative for any acute brain pathology. ammonia level, TSH Are within normal limits. Start patient on low-dose antidepressant Citalopram. Consider psych consult for possible Undiagnosed depression. (2) UTI (urinary tract infection): Impression: Continue Rocephin day 4/5 Qualifiers: Hematuria presence: without hematuria Urinary tract infection type: a cute cystitis Qualified Code(s): N30.00 - Acute cystitis without hematuria (3) Hypoglycemia: Impression: Resolved Continue D5 half-normal. Obtain dietitian consult due to patient's malabsorption secondary to Crohn's disease Consulted surgery for recommendation for possible feeding tube placement. (4) History of colostomy: Impression: Patient with Crohn's disease Required colostomy. Previously on Isabella. Has a colostomy in place on the right side. Current output is minimal. Continue to monitor. (5) Thrombocytopenia: Impression: Chronic, most likely secondary to History of alcohol use disorder and Chronic poor nutrition In the background of Crohn's disease. No active bleeding noted, continue to monitor. (6) Alcohol use: Impression: No current alcohol use, continue folic acid, multivitamin and thiamine (7) Hypertension: Impression: Hydralazine as needed for SBP greater than 160 Hold patient's p.o. Antihypertensive medications Qualifiers: Hypertension type: primary hypertension Qualified Code(s): I10 - Essential (primary) hypertension (8) Crohn's disease: Impression: Patient with Chron's. Required colostomy. Previously on Isabella. Has a colostomy in place on the right side. Current output is minimal. Continue to monitor. Patient is now n.p.o. in the background of malabsorption. Consider NG placement If n.p.o. for more than 2 days Qualifiers: Digestive disease complication type: unspecified complication G astrointestinal tract location: unspecified location Qualified Code(s): K50.919 - Crohn's disease, unspecified, with unspecified complications (9) Weakness: Impression: Patient is quite lethargic But oriented x 4. Etiology is unclear at this time. But differential includes depression, nutritional deficit. Start patient on low-dose antidepressant, patient would probably benefit from psych consult. Patient has Difficult time eating which is worrisome in the background of Crohn's disease. Consulted surgery for possible feeding tube placement for chronic nutritional support. Ammonia level and T4 are within normal limits
[2024-10-23] MEDS: CITALOPRAM HYDROBROMIDE 20 MG TABLET PO SCH (10:35)
--- NOTE | 2024-10-23 10:57 | CONSULTATION NOTE ---
Chief Complaint Chief Complaint Chief Complaint: is concerned about her nutrition. he currently is not present History of Present Illness History Obtained From Records Reviewed: yes History obtained from: chart review and hospitalist Exam Limitations: she is not speaking much. does answer yes and no questions appropriately. History of Present Illness HPI Comment/Other: history of crohns and ileostomy since age 14. recently multiple hospitalizations for altered mental status. poor po and was asking about a feeding tube. Meds/Allgy Home Medications Ambulatory Orders Medication Instructions Recorded Confirmed gabapentin 300 mg capsule 300 mg PO 2200 12/16/23 10/20/24 gabapentin 100 mg capsule 100 mg PO 0600,1200,1800 05/13/24 10/20/24 tramadol 50 mg tablet 50 mg PO DAILY PRN Pain 5-7 05/13/24 10/20/24 amlodipine 5 mg tablet 5 mg PO DAILY 06/24/24 10/20/24 magnesium 250 mg tablet 250 mg PO QDAY 08/26/24 10/20/24 ciprofloxacin HCl 500 mg tablet 500 mg PO BID #20 tabs 10/18/24 10/20/24 naproxen sodium 220 mg tablet 220 mg PO Q8H PRN pain 10/20/24 10/20/24 (Aleve) Allergies Allergies Allergy/AdvReac Type Severity Reaction Status Date / Time Penicillins Allergy Anaphylaxis Verified 10/19/24 20:08 vancomycin Allergy Rash Verified 10/19/24 20:08 methocarbamol AdvReac Dizziness Verified 10/19/24 20:08 PFSH Surgical History Surgical History (Updated 10/20/24 @ 10:30 by Mirella Little MD) History of colostomy Social History Social History Smoking Status: Never smoker Second hand tobacco smoke exposure: No Do you dip or chew tobacco?: No Do you vape?: No Patient requests smoking cessation consult: No Initiate information on smoking cessation: No Living arrangement: At home Living Condition: With spouse/s.o. Relationship: Level: Assisted Home Mobility Equipment: Walker Do you feel safe in your home environment?: Yes Suffered physical, verbal, emotional, or financial abuse?: No History of Abuse: No ETOH Use: Other Frequency: Occasional Are you sexually active?: No POLST Patient has POLST: No POLST Status: Full Code Results Lab Results Lab results reviewed: Yes 10/23/24 04:30 10/23/24 04:30 Other Lab Results: Lab Results x24hrs 10/23/24 10/23/24 10/23/24 Range/Units 05:50 04:30 03:26 WBC 3.2 L (4.8-10.8) x10^3/uL RBC 3.57 L (4.20-5.40) 10^6/uL Hgb 10.6 L (12.0-16.0) g/dL Hct 31.4 L (37.0-47.0) % MCV 88.0 (81.0-99.0) fL MCH 29.7 (27.0-31.0) pg MCHC 33.8 (32.0-36.0) g/dL RDW 14.5 (12.0-15.0) % Plt Count 111 L (130-450) 10^3/uL MPV 10.6 (7.9-10.8) fL Neut # (Auto) 2.6 (1.5-6.6) 10^3/uL Lymph # (Auto) 0.3 L (1.5-3.5) 10^3/uL Frederick # (Auto) 0.2 (0.0-1.0) 10^3/uL Eos # (Auto) 0.0 (0.0-0.7) 10^3/uL Baso # (Auto) 0.0 (0.0-0.1) 10^3/uL Absolute Nucleated RBC 0.00 x10^3/uL Nucleated RBC % 0.0 /100WBC Sodium 138 (135-145) mmol/L Potassium 4.7 H (3.5-4.5) mmol/L Chloride 110 (101-111) mmol/L Carbon Dioxide 26 (21-32) mmol/L Anion Gap 2.0 L (6-13) BUN 11 (6-20) mg/dL Creatinine 0.6 (0.6-1.3) mg/dL Estimated GFR (MDRD) 101 (>89) Glucose 105 H (74-104) mg/dL POC Whole Bld Glucose 93 103 (70-100) mg/dL Calcium 9.3 (8.5-10.3) mg/dL Free T4 Direct (0.58-1.64) ng/dL 10/23/24 10/22/24 10/22/24 Range/Units 00:13 21:32 18:02 WBC (4.8-10.8) x10^3/uL RBC (4.20-5.40) 10^6/uL Hgb (12.0-16.0) g/dL Hct (37.0-47.0) % MCV (81.0-99.0) fL MCH (27.0-31.0) pg MCHC (32.0-36.0) g/dL RDW (12.0-15.0) % Plt Count (130-450) 10^3/uL MPV (7.9-10.8) fL Neut # (Auto) (1.5-6.6) 10^3/uL Lymph # (Auto) (1.5-3.5) 10^3/uL Frederick # (Auto) (0.0-1.0) 10^3/uL Eos # (Auto) (0.0-0.7) 10^3/uL Baso # (Auto) (0.0-0.1) 10^3/uL Absolute Nucleated RBC x10^3/uL Nucleated RBC % /100WBC Sodium (135-145) mmol/L Potassium (3.5-4.5) mmol/L Chloride (101-111) mmol/L Carbon Dioxide (21-32) mmol/L Anion Gap (6-13) BUN (6-20) mg/dL Creatinine (0.6-1.3) mg/dL Estimated GFR (MDRD) (>89) Glucose (74-104) mg/dL POC Whole Bld Glucose 83 79 109 (70-100) mg/dL Calcium (8.5-10.3) mg/dL Free T4 Direct (0.58-1.64) ng/dL 10/22/24 10/22/24 10/22/24 Range/Units 14:56 11:08 09:35 WBC (4.8-10.8) x10^3/uL RBC (4.20-5.40) 10^6/uL Hgb (12.0-16.0) g/dL Hct (37.0-47.0) % MCV (81.0-99.0) fL MCH (27.0-31.0) pg MCHC (32.0-36.0) g/dL RDW (12.0-15.0) % Plt Count (130-450) 10^3/uL MPV (7.9-10.8) fL Neut # (Auto) (1.5-6.6) 10^3/uL Lymph # (Auto) (1.5-3.5) 10^3/uL Frederick # (Auto) (0.0-1.0) 10^3/uL Eos # (Auto) (0.0-0.7) 10^3/uL Baso # (Auto) (0.0-0.1) 10^3/uL Absolute Nucleated RBC x10^3/uL Nucleated RBC % /100WBC Sodium (135-145) mmol/L Potassium (3.5-4.5) mmol/L Chloride (101-111) mmol/L Carbon Dioxide (21-32) mmol/L Anion Gap (6-13) BUN (6-20) mg/dL Creatinine (0.6-1.3) mg/dL Estimated GFR (MDRD) (>89) Glucose (74-104) mg/dL POC Whole Bld Glucose 98 89 (70-100) mg/dL Calcium (8.5-10.3) mg/dL Free T4 Direct 0.95 (0.58-1.64) ng/dL Diagnostic Imaging Results Diagnostic Imaging Results: positive Read independently Review of Systems Status of ROS: 10 or more systems reviewed and unremarkable except as noted in history and below Exam Constitutional normal general appearance and no apparent distress HENMT normocephalic and head/scalp atraumatic Eyes PERRL, EOMs intact bilaterally and no scleral icterus Neck/C-Spine trachea midline Respiratory normal respiratory effort Gastrointestinal nondistended she does not want to be examined at this time. I asked if it is ok I examine her belly and she said no. later I asked is it correct you do not want be to examine your belly and she said yes. Conclusion/Plan Problem List (1) Encephalopathy acute: (2) UTI (urinary tract infection): Qualifiers: Hematuria presence: without hematuria Urinary tract infection type: a cute cystitis Qualified Code(s): N30.00 - Acute cystitis without hematuria (3) Hypoglycemia: (4) History of colostomy: (5) Thrombocytopenia: (6) Alcohol use: (7) Hypertension: Qualifiers: Hypertension type: primary hypertension Qualified Code(s): I10 - Essential (primary) hypertension (8) Crohn's disease: Plan: history crohns and ileostomy since age 14. poor po and consult for feeding tube. by report history esophageal stricture. unfortunately no outside records or records from her crohns doctor are available. the last 3 ct scans are reviewed. ct scan 12/2022 small bowel thickening consistent with crohns without obstruction. ct scan 05/2023 distal esophageal thickening and acute crohns without obstruction. ct scan 07/2023 fluid filled stomach and small bowel without obstruction. 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 she is not a candidate for a peg tube if she has esophageal narrowing. [facility] does not offer minimally invasive feeding tube placement otherwise. she currently does not look malnourished or uncomfortable or dehydrated. recent albumin 3.4. recommend she have out patient work up at a hospital that can offer a higher level of care for poor gastric motility and possible feeding tube access. she may be a candidate for IR or laparoscopic gastric feeding tube, gastrojejunostomy tube, or jejunostomy tube which is not offered on [facility]. given her current health I do not recommend and I do not believe it is her best interest to have an open laparotomy with feeding tube placement at [facility]. Qualifiers: Digestive disease complication type: unspecified complication G astrointestinal tract location: unspecified location Qualified Code(s): K50.919 - Crohn's disease, unspecified, with unspecified complications (9) Weakness: Lab Results Lab results reviewed: Yes 10/23/24 04:30 10/23/24 04:30 Diagnostic Imaging Results Diagnostic Imaging Results: positive Read independently
--- NOTE | 2024-10-23 11:45 | PT Plan of Care ---
PT Inpatient Plan of Care DIAGNOSIS Diagnosis: AMS Diagnosis: UTI Referring Provider: Mirella Little Patient Status: Inpatient CHIEF COMPLAINT Chief Complaint: weakness, limited mobility Onset of Chief Complaint: WOMEN SPECIALIST MEDICAL/SURGICAL HISTORY Surgical History (Updated 10/20/24 @ 10:30 by Mirella Little MD) History of colostomy BALANCE/FUNCTIONAL RESULTS Sitting Balance: Good Standing Balance: Fair ASSESSMENT Assessment: Pt is a 64yo F referred for PT eval d/t limited mobility and fall risk. Pt admitted with AMS secondary to UTI. Lives at home with who is present but sleeping. Pt is primarily nonverbal during PT eval so home environment and PLOF unknown. Per chart review and SW report, pt was recently at SNF then dc'd home with HH therapy and had "graduated" to OPPT. Upon PT eval tod ay, pt is able to follow cueing and participates well but requires additional time to complete tasks and benefits from 1-2 step cueing. Pt responds to her own name and nods or states "yes" on 1-2 occasions but does not respond to orientation or more complex questions. Pt presents with confusion and lethargy but able to transfer with minAx1 and short distance amb with FWW and minAx2. Pt may benefit from PT in acute setting to address deficits and maximize functional indep. When medically clear, PT rec dc to SNF as pt appears unsafe for home mobility at this time. GOALS Improve supine to sit to:: Modified Independent Improve sit to stand to:: Modified Independent Improve sit to supine to:: Modified Independent Improve gait ability to:: Min A Advance Assistive Device to:: Front Wheeled Walker Increase distance walked to (in feet):: 50 PLAN Frequency: 1-2x/day Duration: Until goals are met DISCHARGE RECOMMENDATIONS Discharge Location: [facility] Facility Support/Services Needed: With assist DC Equipment Recommended: Front wheeled walker Transport Needs at Discharge: B.L.S Other: BLS d/t confusion. May tolerate [facility] van for short distance
[2024-10-24 05:36] LABS: BASOPHILS % (AUTO) 0.3 %; EOSINOPHILS # (AUTO) 0.1 10^3/uL (0.0-0.7); EOSINOPHILS % (AUTO) 1.6 %; HCT - HEMATOCRIT 31.3 % (37.0-47.0); HGB - HEMOGLOBIN 10.2 g/dL (12.0-16.0); LYMPHOCYTES # (AUTO) 0.3 10^3/uL (1.5-3.5); LYMPHOCYTES % (AUTO) 8.3 %; MEAN CORPUSCULAR HEMOGLOBIN 29.1 pg (27.0-31.0); MEAN CORPUSCULAR HGB CONC 32.6 g/dL (32.0-36.0); MEAN CORPUSCULAR VOLUME 89.4 fL (81.0-99.0); MEAN PLATELET VOLUME 10.4 fL (7.9-10.8); MONOCYTES # (AUTO) 0.2 10^3/uL (0.0-1.0); NEUTROPHILS # (AUTO) 3.2 10^3/uL (1.5-6.6); NEUTROPHILS % (AUTO) 83.3 %; PLT - PLATELET COUNT 115 10^3/uL (130-450); RED CELL DISTRIBUTION WIDTH 14.3 % (12.0-15.0); WHITE BLOOD COUNT 3.9 x10^3/uL (4.8-10.8)
[2024-10-24 05:49] LABS: CALCIUM 9.1 mg/dL (8.5-10.3); CREATININE 0.5 mg/dL (0.6-1.3); POTASSIUM 4.4 mmol/L (3.5-4.5)
--- NOTE | 2024-10-24 09:17 | PROVIDER PROGRESS NOTE ---
Subjective Prog Note Date Prog Note Date: 10/24/24 Prog Note Time: 09:06 Subjective Subjective: Patient is a 64-year-old female with a history of Chrons disease previously on Humira, ostomy bag in place, MSSA bacteremia with sepsis in 07/2023, former alcohol use, currently in remission, who presents with altered mentation and weakness. Patient states that she was confused at home, and her got worried, and brought her in. ED documentation is reviewedshe was seen in clinic on Monday, and started on Macrobid. Despite that, she was becoming more weak and confused. She has been eating and drinking less at home. Her colostomy output has been largely the same. In the ED, she was found to be leukopenic with white count of 2.9, platelets were low at 99, potassium was mildly elevated at 4.9, sodium was 141. She was persistently hypoglycemic with sugars in the 60s. She was started on D5 normal saline overnight. UA was negative for leukocyte esterase, nitrites, etc. however, patient was taking antibiotics at home already, so this may be falsely sterilized. Urine culture was done at the clinic she went to on Monday, and this is not resulted yet. This morning, she is doing better. She is eating and drinking well. She is alert and oriented x 4. She is lethargic and tired though. She has not been able to get out of bed. She has no focal deficits. She does endorse some dysuria still. She was retaining urine, so they did place a Ocasio overnight. 10/22/2024: Patient is quite lethargic But alert and oriented x 4.Patient has no complaints. at bedside who confirms Patient's weakness and confusion over the last few days 10/23/2024: Patient is still very lethargic. But oriented and alert x 4 when waking up. Patient has no complaints. is at bedside who would like patient to be transferred for possible feeding tube placement vs some other nutritional support 10/24/2024. Patient is much more interactive today. Patient states she has no complaints, no pain no distress.Patient refused oral medications yesterday. Current Medications Current Medications Current Medications: Current Medications Generic Name Dose Route Start Last Admin Trade Name Freq PRN Reason Stop Dose Admin Acetaminophen 650 mg 10/19/24 22:46 10/23/24 17:18 Acetaminophen 325 Mg Tablet PO 650 mg Q6H PRN Administration pain, fever Ascorbic Acid 500 mg 10/20/24 09:00 10/24/24 08:32 Ascorbic Acid 500 Mg Tablet PO 500 mg DAILY FRANK Administration Benzonatate 100 mg 10/19/24 22:46 Benzonatate 100 Mg Capsule PO TID PRN Cough Cholecalciferol 50 mcg 10/21/24 10:00 10/24/24 08:32 Cholecalciferol 25 Mcg Tablet PO 50 mcg DAILY FRANK Administration Citalopram Hydrobromide 20 mg 10/23/24 10:00 10/24/24 08:32 Citalopram Hydrobromide 20 Mg Tablet PO 20 mg DAILY FRANK Administration Enoxaparin Sodium 40 mg 10/20/24 09:00 10/24/24 08:31 Enoxaparin 40 Mg/0.4 Ml Syringe SUBQ 40 mg DAILY FRANK Administration Gabapentin 100 mg 10/20/24 06:00 10/24/24 06:16 Gabapentin 100 Mg Capsule PO Not Given 0600,1200,1800 [facility] Dextrose/Sodium Chloride 1,000 mls @ 125 mls/hr 10/22/24 01:00 10/24/24 09:00 D5.45ns IV Infused .Q8H FRANK Infusion Lactobacillus Rhamnosus 1 cap 10/20/24 09:00 10/24/24 08:32 Lactobacillus Rhamnosus Gg Capsule PO 1 cap DAILY FRANK Administration Magnesium Oxide 400 mg 10/20/24 08:00 10/24/24 08:32 Magnesium Oxide 400 Mg Tablet PO 400 mg DAILYWM FRANK Administration Melatonin 3 mg 10/19/24 22:46 10/20/24 01:50 Melatonin 3 Mg Tablet PO 3 mg QPM PRN Administration sleep Ondansetron HCl 4 mg 10/19/24 22:46 Ondansetron 4 Mg/2 Ml Vial IVP Q8H PRN Nausea / Vomiting Multivit/Folic Acid/Iron 1 tab 10/20/24 11:00 10/24/24 08:32 Vitamin Tablet PO 1 tab DAILYWM FRANK Administration Thiamine HCl 100 mg 10/20/24 11:00 10/24/24 08:32 Thiamine 100 Mg Tablet PO 100 mg DAILY FRANK Administration Objective Vital Signs/Intake & Output Vital Signs: Vital Signs x48h Temp Pulse Resp BP Pulse Ox O2 Flow Rate 10/24/24 08:01 36.2 C L 63 19 137/90 H 99 0 10/24/24 04:51 36.2 C L 65 20 160/86 H 98 Intake & Output: Intake & Output 10/21/24 10/22/24 10/23/24 10/24/24 23:59 23:59 23:59 23:59 Intake Total 1700 / 1700 2170 / 2170 1801 / 1801 2240 / 2240 Output Total 1725 / 1725 2125 / 2125 2750 / 2750 1750 / 1750 Balance - / 25 45 / 45 -949 / -949 490 / 490 Objective General Appearance: positive No acute distress, Alert and Lethargic Eyes Bilateral: positive Normal inspection and PERRL ENT: positive ENT inspection nml Neck: positive Nml inspection and Trachea midline Respiratory: positive Chest non-tender and No respiratory distress Cardiovascular: positive Regular rate & rhythm and No murmur Skin: positive Color nml and No rash Extremities: positive Non-tender and Full ROM Neurologic/Psychiatric: positive Oriented x3 and CN's nml (2-12) Lab Results 10/24/24 05:25 10/24/24 05:25 Other Labs: Lab Results x24hrs 10/24/24 10/24/24 10/24/24 Range/Units 08:36 05:53 05:25 WBC 3.9 L (4.8-10.8) x10^3/uL RBC 3.50 L (4.20-5.40) 10^6/uL Hgb 10.2 L (12.0-16.0) g/dL Hct 31.3 L (37.0-47.0) % MCV 89.4 (81.0-99.0) fL MCH 29.1 (27.0-31.0) pg MCHC 32.6 (32.0-36.0) g/dL RDW 14.3 (12.0-15.0) % Plt Count 115 L (130-450) 10^3/uL MPV 10.4 (7.9-10.8) fL Neut # (Auto) 3.2 (1.5-6.6) 10^3/uL Lymph # (Auto) 0.3 L (1.5-3.5) 10^3/uL Reagan # (Auto) 0.2 (0.0-1.0) 10^3/uL Eos # (Auto) 0.1 (0.0-0.7) 10^3/uL Baso # (Auto) 0.0 (0.0-0.1) 10^3/uL Absolute Nucleated RBC 0.00 x10^3/uL Nucleated RBC % 0.0 /100WBC Sodium 136 (135-145) mmol/L Potassium 4.4 (3.5-4.5) mmol/L Chloride 110 (101-111) mmol/L Carbon Dioxide 23 (21-32) mmol/L Anion Gap 3.0 L (6-13) BUN 15 (6-20) mg/dL Creatinine 0.5 L (0.6-1.3) mg/dL Estimated GFR (MDRD) 124 (>89) Glucose 109 H (74-104) mg/dL POC Whole Bld Glucose 149 103 (70-100) mg/dL Calcium 9.1 (8.5-10.3) mg/dL 10/24/24 10/23/24 10/23/24 Range/Units 03:29 23:44 20:50 WBC (4.8-10.8) x10^3/uL RBC (4.20-5.40) 10^6/uL Hgb (12.0-16.0) g/dL Hct (37.0-47.0) % MCV (81.0-99.0) fL MCH (27.0-31.0) pg MCHC (32.0-36.0) g/dL RDW (12.0-15.0) % Plt Count (130-450) 10^3/uL MPV (7.9-10.8) fL Neut # (Auto) (1.5-6.6) 10^3/uL Lymph # (Auto) (1.5-3.5) 10^3/uL Reagan # (Auto) (0.0-1.0) 10^3/uL Eos # (Auto) (0.0-0.7) 10^3/uL Baso # (Auto) (0.0-0.1) 10^3/uL Absolute Nucleated RBC x10^3/uL Nucleated RBC % /100WBC Sodium (135-145) mmol/L Potassium (3.5-4.5) mmol/L Chloride (101-111) mmol/L Carbon Dioxide (21-32) mmol/L Anion Gap (6-13) BUN (6-20) mg/dL Creatinine (0.6-1.3) mg/dL Estimated GFR (MDRD) (>89) Glucose (74-104) mg/dL POC Whole Bld Glucose 95 96 93 (70-100) mg/dL Calcium (8.5-10.3) mg/dL 10/23/24 10/23/24 10/23/24 Range/Units 17:58 14:53 11:40 WBC (4.8-10.8) x10^3/uL RBC (4.20-5.40) 10^6/uL Hgb (12.0-16.0) g/dL Hct (37.0-47.0) % MCV (81.0-99.0) fL MCH (27.0-31.0) pg MCHC (32.0-36.0) g/dL RDW (12.0-15.0) % Plt Count (130-450) 10^3/uL MPV (7.9-10.8) fL Neut # (Auto) (1.5-6.6) 10^3/uL Lymph # (Auto) (1.5-3.5) 10^3/uL Reagan # (Auto) (0.0-1.0) 10^3/uL Eos # (Auto) (0.0-0.7) 10^3/uL Baso # (Auto) (0.0-0.1) 10^3/uL Absolute Nucleated RBC x10^3/uL Nucleated RBC % /100WBC Sodium (135-145) mmol/L Potassium (3.5-4.5) mmol/L Chloride (101-111) mmol/L Carbon Dioxide (21-32) mmol/L Anion Gap (6-13) BUN (6-20) mg/dL Creatinine (0.6-1.3) mg/dL Estimated GFR (MDRD) (>89) Glucose (74-104) mg/dL POC Whole Bld Glucose 123 128 118 (70-100) mg/dL Calcium (8.5-10.3) mg/dL 10/23/24 Range/Units 08:44 WBC (4.8-10.8) x10^3/uL RBC (4.20-5.40) 10^6/uL Hgb (12.0-16.0) g/dL Hct (37.0-47.0) % MCV (81.0-99.0) fL MCH (27.0-31.0) pg MCHC (32.0-36.0) g/dL RDW (12.0-15.0) % Plt Count (130-450) 10^3/uL MPV (7.9-10.8) fL Neut # (Auto) (1.5-6.6) 10^3/uL Lymph # (Auto) (1.5-3.5) 10^3/uL Reagan # (Auto) (0.0-1.0) 10^3/uL Eos # (Auto) (0.0-0.7) 10^3/uL Baso # (Auto) (0.0-0.1) 10^3/uL Absolute Nucleated RBC x10^3/uL Nucleated RBC % /100WBC Sodium (135-145) mmol/L Potassium (3.5-4.5) mmol/L Chloride (101-111) mmol/L Carbon Dioxide (21-32) mmol/L Anion Gap (6-13) BUN (6-20) mg/dL Creatinine (0.6-1.3) mg/dL Estimated GFR (MDRD) (>89) Glucose (74-104) mg/dL POC Whole Bld Glucose 104 (70-100) mg/dL Calcium (8.5-10.3) mg/dL Diagnostic Imaging Diagnostic Imaging Results: positive Final report reviewed Assessment/Plan Problem List (1) Encephalopathy acute: Impression: Resolved Patient is oriented to x 4, today patient is more interactive. Etiology of her episodic encephalopathy includes depression, sepsis secondary UTI which has resolved, episodes of hypoglycemia) nutritional status. CT on admission was negative for any acute brain pathology. ammonia level, TSH Are within normal limits. Patient refused oral antidepressant Citalopram. Consider psych consult for possible Undiagnosed depression. (2) UTI (urinary tract infection): Impression: Continue Rocephin day 5/5 Stop Rocephin today Qualifiers: Hematuria presence: without hematuria Urinary tract infection type: a cute cystitis Qualified Code(s): N30.00 - Acute cystitis without hematuria (3) Hypoglycemia: Impression: Resolved Continue D5 half-normal. Obtain dietitian consult due to patient's malabsorption secondary to Crohn's disease Consulted surgery for recommendation for possible feeding tube placement. If feeding tube placement is required, surgery recommended that patient should be transferred to a hospital with GI expertise due to her Crohns flare ups. . (4) History of colostomy: Impression: Patient with Crohn's disease Required colostomy. Previously on Isabella. Has a colostomy in place on the right side. Current output is minimal. Continue to monitor. (5) Thrombocytopenia: Impression: Chronic, most likely secondary to History of alcohol use disorder and Chronic poor nutrition In the background of Crohn's disease. No active bleeding noted, continue to monitor. (6) Alcohol use: Impression: No current alcohol use, continue folic acid, multivitamin and thiamine (7) Hypertension: Impression: Hydralazine as needed for SBP greater than 160 Hold patient's p.o. Antihypertensive medications Qualifiers: Hypertension type: primary hypertension Qualified Code(s): I10 - Essential (primary) hypertension (8) Crohn's disease: Impression: Patient with Chron's. Required colostomy. Previously on Isabella. Has a colostomy in place on the right side. Current output is minimal. Continue to monitor. Patient back on normal Pured diet. Qualifiers: Digestive disease complication type: unspecified complication G astrointestinal tract location: unspecified location Qualified Code(s): K50.919 - Crohn's disease, unspecified, with unspecified complications (9) Weakness: Impression: Patient is quite lethargic But oriented x 4. Patient would benefit from aggressive PT OT. Pt recommends DC to SNF as patient appears unsafe for home PT at this time
[2024-10-24] MEDS: MAG HYDROX/AL HYDROX/SIMETH 30 ML UDC PO PRN (17:58)
[2024-10-24] MEDS ORDERED: ZINC OXIDE 20% OINT 30 GM TUBE TOP PRN (18:18)
[2024-10-25 05:57] LABS: BASOPHILS % (AUTO) 0.4 %; EOSINOPHILS % (AUTO) 2.7 %; HCT - HEMATOCRIT 27.1 % (37.0-47.0); HGB - HEMOGLOBIN 8.9 g/dL (12.0-16.0); LYMPHOCYTES % (AUTO) 14.8 %; MEAN CORPUSCULAR HEMOGLOBIN 29.6 pg (27.0-31.0); MEAN CORPUSCULAR HGB CONC 32.8 g/dL (32.0-36.0); MEAN PLATELET VOLUME 10.4 fL (7.9-10.8); MONOCYTES % (AUTO) 7.2 %; NEUTROPHILS % (AUTO) 74.5 %; PLT - PLATELET COUNT 111 10^3/uL (130-450); RED BLOOD COUNT 3.01 10^6/uL (4.20-5.40); RED CELL DISTRIBUTION WIDTH 14.3 % (12.0-15.0); WHITE BLOOD COUNT 2.6 x10^3/uL (4.8-10.8)
[2024-10-25 06:08] LABS: ABNORMAL LYMPHS % (MANUAL) 0 %; BAND NEUTROPHILS % (MANUAL) 0 %
[2024-10-25 06:18] LABS: CALCIUM 9.1 mg/dL (8.5-10.3); CREATININE 0.5 mg/dL (0.6-1.3); POTASSIUM 4.8 mmol/L (3.5-4.5)
[2024-10-25 06:25] LABS: BASOPHILS % (MANUAL) 1 %; DIFFERENTIAL COMMENT MANUAL DIFFERENTIAL; EOSINOPHILS # (MANUAL) 0.1 10^3/uL (0-0.7); LYMPHOCYTES # (MANUAL) 0.4 10^3/uL (1.5-3.5); LYMPHOCYTES % (MANUAL) 16 %; MONOCYTES # (MANUAL) 0.2 10^3/uL (0.0-1.0); PLATELET ESTIMATE, MANUAL DECREASED (<130,000) (NORMAL); PLATELET MORPHOLOGY NORMAL APPEARANCE (NORMAL); RBC MORPHOLOGY (MULTIPLE) NORMAL APPEARANCE (NORMAL)
--- NOTE | 2024-10-25 10:31 | PROVIDER PROGRESS NOTE ---
Subjective Prog Note Date Prog Note Date: 10/25/24 Prog Note Time: 10:30 Subjective Subjective: Patient is a 64-year-old female with a history of Chrons disease previously on Humira, ostomy bag in place, MSSA bacteremia with sepsis in 07/2023, former alcohol use, currently in remission, who presents with altered mentation and weakness. Patient states that she was confused at home, and her got worried, and brought her in. ED documentation is reviewedshe was seen in clinic on Monday, and started on Macrobid. Despite that, she was becoming more weak and confused. She has been eating and drinking less at home. Her colostomy output has been largely the same. In the ED, she was found to be leukopenic with white count of 2.9, platelets were low at 99, potassium was mildly elevated at 4.9, sodium was 141. She was persistently hypoglycemic with sugars in the 60s. She was started on D5 normal saline overnight. UA was negative for leukocyte esterase, nitrites, etc. however, patient was taking antibiotics at home already, so this may be falsely sterilized. Urine culture was done at the clinic she went to on Monday, and this is not resulted yet. This morning, she is doing better. She is eating and drinking well. She is alert and oriented x 4. She is lethargic and tired though. She has not been able to get out of bed. She has no focal deficits. She does endorse some dysuria still. She was retaining urine, so they did place a Ocasio overnight. 10/22/2024: Patient is quite lethargic But alert and oriented x 4.Patient has no complaints. at bedside who confirms Patient's weakness and confusion over the last few days 10/23/2024: Patient is still very lethargic. But oriented and alert x 4 when waking up. Patient has no complaints. is at bedside who would like patient to be transferred for possible feeding tube placement vs some other nutritional support 10/24/2024. Patient is much more interactive today. Patient states she has no complaints, no pain no distress.Patient refused oral medications yesterday. 10/25/2024:Patient is awake, states she feels fine, denies any pain. Pt states that she is taking part in PT and has been walking around. at bedside who would like patient to be discharged to a rehab facility Current Medications Current Medications Current Medications: Current Medications Generic Name Dose Route Start Last Admin Trade Name Freq PRN Reason Stop Dose Admin Acetaminophen 650 mg 10/19/24 22:46 10/25/24 07:18 Acetaminophen 325 Mg Tablet PO 650 mg Q6H PRN Administration pain, fever Al Hydroxide/Mg Hydroxide 30 ml 10/24/24 17:33 10/24/24 17:58 Mag Hydrox/Al Hydrox/Simeth 30 Ml Udc PO 30 ml Q4HR PRN Administration INDIGESTION Ascorbic Acid 500 mg 10/20/24 09:00 10/25/24 08:28 Ascorbic Acid 500 Mg Tablet PO 500 mg DAILY FRANK Administration Benzonatate 100 mg 10/19/24 22:46 Benzonatate 100 Mg Capsule PO TID PRN Cough Cholecalciferol 50 mcg 10/21/24 10:00 10/25/24 08:28 Cholecalciferol 25 Mcg Tablet PO 50 mcg DAILY FRANK Administration Citalopram Hydrobromide 20 mg 10/23/24 10:00 10/25/24 08:28 Citalopram Hydrobromide 20 Mg Tablet PO 20 mg DAILY FRANK Administration Enoxaparin Sodium 40 mg 10/20/24 09:00 10/25/24 08:29 Enoxaparin 40 Mg/0.4 Ml Syringe SUBQ 40 mg DAILY FRANK Administration Gabapentin 100 mg 10/20/24 06:00 10/25/24 07:03 Gabapentin 100 Mg Capsule PO Not Given 0600,1200,1800 FRANK Lactobacillus Rhamnosus 1 cap 10/20/24 09:00 10/25/24 08:31 Lactobacillus Rhamnosus Gg Capsule PO 1 cap DAILY FRANK Administration Magnesium Oxide 400 mg 10/20/24 08:00 10/25/24 08:28 Magnesium Oxide 400 Mg Tablet PO 400 mg DAILYWM FRANK Administration Melatonin 3 mg 10/19/24 22:46 10/20/24 01:50 Melatonin 3 Mg Tablet PO 3 mg QPM PRN Administration sleep Multi-Ingredient Ointment 1 applic 10/24/24 18:18 Zinc Oxide 20% Oint 30 Gm Tube TOP PRN PRN Skin Care Ondansetron HCl 4 mg 10/19/24 22:46 Ondansetron 4 Mg/2 Ml Vial IVP Q8H PRN Nausea / Vomiting Multivit/Folic Acid/Iron 1 tab 10/20/24 11:00 10/25/24 08:29 Vitamin Tablet PO 1 tab DAILYWM FRANK Administration Thiamine HCl 100 mg 10/20/24 11:00 10/25/24 08:29 Thiamine 100 Mg Tablet PO 100 mg DAILY FRANK Administration Objective Vital Signs/Intake & Output Vital Signs: Vital Signs x48h Temp Pulse Resp BP BP Pulse Ox 10/25/24 07:49 36.1 C L 43 L 18 119/75 96 10/25/24 05:50 36.4 C L 52 L 52 H 136/98 H 100 Intake & Output: Intake & Output 10/22/24 10/23/24 10/24/24 10/25/24 23:59 23:59 23:59 23:59 Intake Total 2170 / 2170 1801 / 1801 3315 / 3315 893 / 893 Output Total 2125 / 2125 2750 / 2750 3300 / 3300 1500 / 1500 Balance 45 / 45 -949 / -949 15 / 15 -607 / -607 Objective General Appearance: positive No acute distress, Alert and Lethargic Eyes Bilateral: positive Normal inspection and PERRL ENT: positive ENT inspection nml Neck: positive Nml inspection and Trachea midline Respiratory: positive Chest non-tender and No respiratory distress Cardiovascular: positive Regular rate & rhythm and No murmur Skin: positive Color nml and No rash Extremities: positive Non-tender and Full ROM Neurologic/Psychiatric: positive Oriented x3 and CN's nml (2-12) Lab Results 10/25/24 05:38 10/25/24 05:38 Other Labs: Lab Results x24hrs 10/25/24 10/25/24 10/25/24 Range/Units 09:05 06:12 05:38 WBC 2.6 L (4.8-10.8) x10^3/uL RBC 3.01 L (4.20-5.40) 10^6/uL Hgb 8.9 L (12.0-16.0) g/dL Hct 27.1 L (37.0-47.0) % MCV 90.0 (81.0-99.0) fL MCH 29.6 (27.0-31.0) pg MCHC 32.8 (32.0-36.0) g/dL RDW 14.3 (12.0-15.0) % Plt Count 111 L (130-450) 10^3/uL MPV 10.4 (7.9-10.8) fL Neut # (Auto) Not Reportable Lymph # (Auto) Not Reportable [place] # (Auto) Not Reportable Eos # (Auto) Not Reportable Baso # (Auto) Not Reportable Absolute Nucleated RBC Not Reportable Total Counted 100 Band Neuts % (Manual) 0 (0 - 10) % Abnorm Lymph % (Manual) 0 % Nucleated RBC % Not Reportable Neutrophils # (Manual) 2.0 (1.5-6.6) 10^3/uL Lymphocytes # (Manual) 0.4 L (1.5-3.5) 10^3/uL Monocytes # (Manual) 0.2 (0.0-1.0) 10^3/uL Eosinophils # (Manual) 0.1 (0-0.7) 10^3/uL Basophils # (Manual) 0.0 (0-0.1) 10^3/uL Differential Comment MANUAL DIFFERENTIAL Platelet Estimate DECREASED (<130,000) (NORMAL) Platelet Morphology NORMAL APPEARANCE (NORMAL) RBC Morph Micro Appear NORMAL APPEARANCE (NORMAL) Sodium 136 (135-145) mmol/L Potassium 4.8 H (3.5-4.5) mmol/L Chloride 110 (101-111) mmol/L Carbon Dioxide 23 (21-32) mmol/L Anion Gap 3.0 L (6-13) BUN 19 (6-20) mg/dL Creatinine 0.5 L (0.6-1.3) mg/dL Estimated GFR (MDRD) 124 (>89) Glucose 94 (74-104) mg/dL POC Whole Bld Glucose 139 82 (70-100) mg/dL Calcium 9.1 (8.5-10.3) mg/dL 10/25/24 10/25/24 10/24/24 Range/Units 03:02 00:41 21:04 WBC (4.8-10.8) x10^3/uL RBC (4.20-5.40) 10^6/uL Hgb (12.0-16.0) g/dL Hct (37.0-47.0) % MCV (81.0-99.0) fL MCH (27.0-31.0) pg MCHC (32.0-36.0) g/dL RDW (12.0-15.0) % Plt Count (130-450) 10^3/uL MPV (7.9-10.8) fL Neut # (Auto) Lymph # (Auto) [place] # (Auto) Eos # (Auto) Baso # (Auto) Absolute Nucleated RBC Total Counted Band Neuts % (Manual) (0 - 10) % Abnorm Lymph % (Manual) % Nucleated RBC % Neutrophils # (Manual) (1.5-6.6) 10^3/uL Lymphocytes # (Manual) (1.5-3.5) 10^3/uL Monocytes # (Manual) (0.0-1.0) 10^3/uL Eosinophils # (Manual) (0-0.7) 10^3/uL Basophils # (Manual) (0-0.1) 10^3/uL Differential Comment Platelet Estimate (NORMAL) Platelet Morphology (NORMAL) RBC Morph Micro Appear (NORMAL) Sodium (135-145) mmol/L Potassium (3.5-4.5) mmol/L Chloride (101-111) mmol/L Carbon Dioxide (21-32) mmol/L Anion Gap (6-13) BUN (6-20) mg/dL Creatinine (0.6-1.3) mg/dL Estimated GFR (MDRD) (>89) Glucose (74-104) mg/dL POC Whole Bld Glucose 83 98 103 (70-100) mg/dL Calcium (8.5-10.3) mg/dL 10/24/24 10/24/24 10/24/24 Range/Units 18:21 15:29 11:58 WBC (4.8-10.8) x10^3/uL RBC (4.20-5.40) 10^6/uL Hgb (12.0-16.0) g/dL Hct (37.0-47.0) % MCV (81.0-99.0) fL MCH (27.0-31.0) pg MCHC (32.0-36.0) g/dL RDW (12.0-15.0) % Plt Count (130-450) 10^3/uL MPV (7.9-10.8) fL Neut # (Auto) Lymph # (Auto) [place] # (Auto) Eos # (Auto) Baso # (Auto) Absolute Nucleated RBC Total Counted Band Neuts % (Manual) (0 - 10) % Abnorm Lymph % (Manual) % Nucleated RBC % Neutrophils # (Manual) (1.5-6.6) 10^3/uL Lymphocytes # (Manual) (1.5-3.5) 10^3/uL Monocytes # (Manual) (0.0-1.0) 10^3/uL Eosinophils # (Manual) (0-0.7) 10^3/uL Basophils # (Manual) (0-0.1) 10^3/uL Differential Comment Platelet Estimate (NORMAL) Platelet Morphology (NORMAL) RBC Morph Micro Appear (NORMAL) Sodium (135-145) mmol/L Potassium (3.5-4.5) mmol/L Chloride (101-111) mmol/L Carbon Dioxide (21-32) mmol/L Anion Gap (6-13) BUN (6-20) mg/dL Creatinine (0.6-1.3) mg/dL Estimated GFR (MDRD) (>89) Glucose (74-104) mg/dL POC Whole Bld Glucose 119 131 101 (70-100) mg/dL Calcium (8.5-10.3) mg/dL Diagnostic Imaging Diagnostic Imaging Results: positive Final report reviewed Assessment/Plan Problem List (1) Encephalopathy acute: Impression: Resolved Patient is oriented to x 4, today patient is more interactive. Etiology of her episodic encephalopathy includes depression, sepsis secondary UTI which has resolved, episodes of hypoglycemia) nutritional status. CT on admission was negative for any acute brain pathology. ammonia level, TSH Are within normal limits. Patient refused oral antidepressant Citalopram. Consider psych consult for possible Undiagnosed depression. (2) UTI (urinary tract infection): Impression: Patient completed full course of Rocephin for UTI. Ocasio catheter was removed on 10/24/2024, patient had episodes of urinary retention, straight cath as needed for volume greater than 400 mL. Qualifiers: Hematuria presence: without hematuria Urinary tract infection type: a cute cystitis Qualified Code(s): N30.00 - Acute cystitis without hematuria (3) Hypoglycemia: Impression: Resolved Discontinue D5 half-normal today, continue to monitor blood glucose. Consulted surgery for recommendation for possible feeding tube placement. If feeding tube placement is required, surgery recommended that patient should be transferred to a hospital with GI expertise due to her Crohns flare ups. . (4) History of colostomy: Impression: Patient with Crohn's disease Required colostomy. Previously on Isabella. Has a colostomy in place on the right side. Current output is minimal. Continue to monitor. (5) Thrombocytopenia: Impression: Chronic, most likely secondary to History of alcohol use disorder and Chronic poor nutrition In the background of Crohn's disease. No active bleeding noted, continue to monitor. (6) Alcohol use: Impression: No current alcohol use, continue folic acid, multivitamin and thiamine (7) Hypertension: Impression: Hydralazine as needed for SBP greater than 160 Hold patient's p.o. Antihypertensive medications Qualifiers: Hypertension type: primary hypertension Qualified Code(s): I10 - Essential (primary) hypertension (8) Crohn's disease: Impression: Patient with Chron's. Required colostomy. Previously on Isabella. Has a colostomy in place on the right side. Current output is minimal. Continue to monitor. Patient back on normal Pured diet. Qualifiers: Digestive disease complication type: unspecified complication G astrointestinal tract location: unspecified location Qualified Code(s): K50.919 - Crohn's disease, unspecified, with unspecified complications (9) Weakness: Impression: Patient is quite lethargic But oriented x 4. PT/OT has been working with her and she has been walking the halls lately. Pt recommends DC to SNF as patient appears unsafe for home PT at this time
[2024-10-25] MEDS ORDERED: SODIUM CHLORIDE FLUSH 0.9% 10 ML SYRINGE IVP PRN (17:22)
--- NOTE | 2024-10-26 00:41 | PROVIDER PROGRESS NOTE ---
Production Operations Inspector Note Production Operations Inspector Note Production Operations Inspector Note: Pending admission. Discussed with ER provider. Patient is clinically stable, presents with nausea/vomiting, family requests admission given recent hospitalization for sepsis/bacteremia. Noted recent ESBL UTI, patient with signs of pyelo on CT scan, ordered IV meropenem. Home med rec verification is pending.
[2024-10-26] MEDS: SODIUM CHLORIDE 0.9% 500 ML IV ONE (00:56)
[2024-10-26] MEDS: SODIUM CHLORIDE FLUSH 0.9% 10 ML SYRINGE IVP SCH (00:56)
--- NOTE | 2024-10-26 03:57 | PROVIDER PROGRESS NOTE ---
Tare Worker Note Tare Worker Note Tare Worker Note: pt drowsy and not taking much po blood sugar in 60s-80s will start d5lr @ 75/h continue monitoring
[2024-10-26] MEDS: DEXTROSE 5%-LACTATED RINGERS 1,000 ML IV SCH (04:14)
[2024-10-26 05:26] LABS: BASOPHILS % (AUTO) 0.3 %; EOSINOPHILS # (AUTO) 0.1 10^3/uL (0.0-0.7); EOSINOPHILS % (AUTO) 1.8 %; HCT - HEMATOCRIT 26.3 % (37.0-47.0); HGB - HEMOGLOBIN 8.5 g/dL (12.0-16.0); LYMPHOCYTES # (AUTO) 0.4 10^3/uL (1.5-3.5); LYMPHOCYTES % (AUTO) 12.2 %; MEAN CORPUSCULAR HEMOGLOBIN 29.2 pg (27.0-31.0); MEAN CORPUSCULAR HGB CONC 32.3 g/dL (32.0-36.0); MEAN CORPUSCULAR VOLUME 90.4 fL (81.0-99.0); MEAN PLATELET VOLUME 10.8 fL (7.9-10.8); MONOCYTES # (AUTO) 0.2 10^3/uL (0.0-1.0); MONOCYTES % (AUTO) 6.4 %; NEUTROPHILS # (AUTO) 2.6 10^3/uL (1.5-6.6); NEUTROPHILS % (AUTO) 78.7 %; PLT - PLATELET COUNT 116 10^3/uL (130-450); RED BLOOD COUNT 2.91 10^6/uL (4.20-5.40); RED CELL DISTRIBUTION WIDTH 14.5 % (12.0-15.0); WHITE BLOOD COUNT 3.3 x10^3/uL (4.8-10.8)
[2024-10-26 05:41] LABS: CALCIUM 9.3 mg/dL (8.5-10.3); CREATININE 0.6 mg/dL (0.6-1.3); POTASSIUM 5.2 mmol/L (3.5-4.5)
--- NOTE | 2024-10-26 08:23 | PROVIDER PROGRESS NOTE ---
Subjective Prog Note Date Prog Note Date: 10/26/24 Prog Note Time: 08:10 Subjective Subjective: Patient is a 64-year-old female with a history of Chrons disease previously on Humira, ostomy bag in place, MSSA bacteremia with sepsis in 07/2023, former alcohol use, currently in remission, who presents with altered mentation and weakness. Patient states that she was confused at home, and her got worried, and brought her in. ED documentation is reviewedshe was seen in clinic on Monday, and started on Macrobid. Despite that, she was becoming more weak and confused. She has been eating and drinking less at home. Her colostomy output has been largely the same. In the ED, she was found to be leukopenic with white count of 2.9, platelets were low at 99, potassium was mildly elevated at 4.9, sodium was 141. She was persistently hypoglycemic with sugars in the 60s. She was started on D5 normal saline overnight. UA was negative for leukocyte esterase, nitrites, etc. however, patient was taking antibiotics at home already, so this may be falsely sterilized. Urine culture was done at the clinic she went to on Monday, and this is not resulted yet. This morning, she is doing better. She is eating and drinking well. She is alert and oriented x 4. She is lethargic and tired though. She has not been able to get out of bed. She has no focal deficits. She does endorse some dysuria still. She was retaining urine, so they did place a Ocasio overnight. 10/22/2024: Patient is quite lethargic But alert and oriented x 4.Patient has no complaints. at bedside who confirms Patient's weakness and confusion over the last few days 10/23/2024: Patient is still very lethargic. But oriented and alert x 4 when waking up. Patient has no complaints. is at bedside who would like patient to be transferred for possible feeding tube placement vs some other nutritional support 10/24/2024. Patient is much more interactive today. Patient states she has no complaints, no pain no distress.Patient refused oral medications yesterday. 10/25/2024:Patient is awake, states she feels fine, denies any pain. Pt states that she is taking part in PT and has been walking around. at bedside who would like patient to be discharged to a rehab facility 10/26/2024: Today patient is quite lethargic, only answers in one-word syllables. Overnight patient had an Episode of border line low glucose of 67 and borderline low heart rate around 40. Patient remained asymptomatic during these episodes. Current Medications Current Medications Current Medications: Current Medications Generic Name Dose Route Start Last Admin Trade Name Freq PRN Reason Stop Dose Admin Acetaminophen 650 mg 10/19/24 22:46 10/25/24 07:18 Acetaminophen 325 Mg Tablet PO 650 mg Q6H PRN Administration pain, fever Al Hydroxide/Mg Hydroxide 30 ml 10/24/24 17:33 10/24/24 17:58 Mag Hydrox/Al Hydrox/Simeth 30 Ml Udc PO 30 ml Q4HR PRN Administration INDIGESTION Ascorbic Acid 500 mg 10/20/24 09:00 10/25/24 08:28 Ascorbic Acid 500 Mg Tablet PO 500 mg DAILY FRANK Administration Benzonatate 100 mg 10/19/24 22:46 Benzonatate 100 Mg Capsule PO TID PRN Cough Cholecalciferol 50 mcg 10/21/24 10:00 10/25/24 08:28 Cholecalciferol 25 Mcg Tablet PO 50 mcg DAILY FRANK Administration Citalopram Hydrobromide 20 mg 10/23/24 10:00 10/25/24 08:28 Citalopram Hydrobromide 20 Mg Tablet PO 20 mg DAILY FRANK Administration Enoxaparin Sodium 40 mg 10/20/24 09:00 10/25/24 08:29 Enoxaparin 40 Mg/0.4 Ml Syringe SUBQ 40 mg DAILY FRANK Administration Dextrose/Lactated Ringer's 1,000 mls @ 75 mls/hr 10/26/24 04:00 10/26/24 07:22 D5lr IV 0 mls/hr .[id number] FRANK Infusion Lactobacillus Rhamnosus 1 cap 10/20/24 09:00 10/25/24 08:31 Lactobacillus Rhamnosus Gg Capsule PO 1 cap DAILY FRANK Administration Magnesium Oxide 400 mg 10/20/24 08:00 10/25/24 08:28 Magnesium Oxide 400 Mg Tablet PO 400 mg DAILYWM FRANK Administration Melatonin 3 mg 10/19/24 22:46 10/20/24 01:50 Melatonin 3 Mg Tablet PO 3 mg QPM PRN Administration sleep Multi-Ingredient Ointment 1 applic 10/24/24 18:18 Zinc Oxide 20% Oint 30 Gm Tube TOP PRN PRN Skin Care Ondansetron HCl 4 mg 10/19/24 22:46 Ondansetron 4 Mg/2 Ml Vial IVP Q8H PRN Nausea / Vomiting Multivit/Folic Acid/Iron 1 tab 10/20/24 11:00 10/25/24 08:29 Vitamin Tablet PO 1 tab DAILYWM FRANK Administration Sodium Chloride 10 ml 10/26/24 01:00 10/26/24 00:56 Sodium Chloride Flush 0.9% 10 Ml Syringe IVP 10 ml 0100,0900,1700 FRANK Administration Sodium Chloride 10 ml 10/25/24 17:22 Sodium Chloride Flush 0.9% 10 Ml Syringe IVP PRN PRN Per Line Care protocol Sodium Zirconium Cyclosilicate 10 gm 10/26/24 09:00 Sodium Zirconium Cyclosilicate 5 Gm Packet PO 10/26/24 21:01 Q8HR FRANK Thiamine HCl 100 mg 10/20/24 11:00 10/25/24 08:29 Thiamine 100 Mg Tablet PO 100 mg DAILY FRANK Administration Objective Vital Signs/Intake & Output Vital Signs: Vital Signs x48h Temp Pulse Resp BP Pulse Ox 10/26/24 08:00 36.2 C L 46 L 14 125/69 98 Intake & Output: Intake & Output 10/23/24 10/24/24 10/25/24 10/26/24 23:59 23:59 23:59 23:59 Intake Total 1801 / 1801 3315 / 3315 1783 / 1783 1055 / 1055 Output Total 2750 / 2750 3300 / 3300 3125 / 3125 150 / 150 Balance -949 / -949 15 / 15 -1342 / -1342 905 / 905 Weight (kg) 38 kg Objective General Appearance: positive No acute distress, Alert and Lethargic Eyes Bilateral: positive Normal inspection and PERRL ENT: positive ENT inspection nml Neck: positive Nml inspection and Trachea midline Respiratory: positive Chest non-tender and No respiratory distress Cardiovascular: positive Regular rate & rhythm and No murmur Skin: positive Color nml and No rash Extremities: positive Non-tender and Full ROM Neurologic/Psychiatric: positive Oriented x3 and CN's nml (2-12) Lab Results 10/26/24 05:15 10/26/24 05:15 Other Labs: Lab Results x24hrs 10/26/24 10/26/24 10/26/24 Range/Units 05:59 05:15 04:33 WBC 3.3 L (4.8-10.8) x10^3/uL RBC 2.91 L (4.20-5.40) 10^6/uL Hgb 8.5 L (12.0-16.0) g/dL Hct 26.3 L (37.0-47.0) % MCV 90.4 (81.0-99.0) fL MCH 29.2 (27.0-31.0) pg MCHC 32.3 (32.0-36.0) g/dL RDW 14.5 (12.0-15.0) % Plt Count 116 L (130-450) 10^3/uL MPV 10.8 (7.9-10.8) fL Neut # (Auto) 2.6 (1.5-6.6) 10^3/uL Lymph # (Auto) 0.4 L (1.5-3.5) 10^3/uL Hawkins # (Auto) 0.2 (0.0-1.0) 10^3/uL Eos # (Auto) 0.1 (0.0-0.7) 10^3/uL Baso # (Auto) 0.0 (0.0-0.1) 10^3/uL Absolute Nucleated RBC 0.00 x10^3/uL Nucleated RBC % 0.0 /100WBC Sodium 132 L (135-145) mmol/L Potassium 5.2 H (3.5-4.5) mmol/L Chloride 108 (101-111) mmol/L Carbon Dioxide 21 (21-32) mmol/L Anion Gap 3.0 L (6-13) BUN 22 H (6-20) mg/dL Creatinine 0.6 (0.6-1.3) mg/dL Estimated GFR (MDRD) 101 (>89) Glucose 97 (74-104) mg/dL POC Whole Bld Glucose 115 89 (70-100) mg/dL Calcium 9.3 (8.5-10.3) mg/dL 10/26/24 10/26/24 10/25/24 Range/Units 04:02 03:13 23:46 WBC (4.8-10.8) x10^3/uL RBC (4.20-5.40) 10^6/uL Hgb (12.0-16.0) g/dL Hct (37.0-47.0) % MCV (81.0-99.0) fL MCH (27.0-31.0) pg MCHC (32.0-36.0) g/dL RDW (12.0-15.0) % Plt Count (130-450) 10^3/uL MPV (7.9-10.8) fL Neut # (Auto) (1.5-6.6) 10^3/uL Lymph # (Auto) (1.5-3.5) 10^3/uL Hawkins # (Auto) (0.0-1.0) 10^3/uL Eos # (Auto) (0.0-0.7) 10^3/uL Baso # (Auto) (0.0-0.1) 10^3/uL Absolute Nucleated RBC x10^3/uL Nucleated RBC % /100WBC Sodium (135-145) mmol/L Potassium (3.5-4.5) mmol/L Chloride (101-111) mmol/L Carbon Dioxide (21-32) mmol/L Anion Gap (6-13) BUN (6-20) mg/dL Creatinine (0.6-1.3) mg/dL Estimated GFR (MDRD) (>89) Glucose (74-104) mg/dL POC Whole Bld Glucose 70 67 88 (70-100) mg/dL Calcium (8.5-10.3) mg/dL 10/25/24 10/25/24 10/25/24 Range/Units 21:45 21:02 18:13 WBC (4.8-10.8) x10^3/uL RBC (4.20-5.40) 10^6/uL Hgb (12.0-16.0) g/dL Hct (37.0-47.0) % MCV (81.0-99.0) fL MCH (27.0-31.0) pg MCHC (32.0-36.0) g/dL RDW (12.0-15.0) % Plt Count (130-450) 10^3/uL MPV (7.9-10.8) fL Neut # (Auto) (1.5-6.6) 10^3/uL Lymph # (Auto) (1.5-3.5) 10^3/uL Hawkins # (Auto) (0.0-1.0) 10^3/uL Eos # (Auto) (0.0-0.7) 10^3/uL Baso # (Auto) (0.0-0.1) 10^3/uL Absolute Nucleated RBC x10^3/uL Nucleated RBC % /100WBC Sodium (135-145) mmol/L Potassium (3.5-4.5) mmol/L Chloride (101-111) mmol/L Carbon Dioxide (21-32) mmol/L Anion Gap (6-13) BUN (6-20) mg/dL Creatinine (0.6-1.3) mg/dL Estimated GFR (MDRD) (>89) Glucose (74-104) mg/dL POC Whole Bld Glucose 87 73 85 (70-100) mg/dL Calcium (8.5-10.3) mg/dL 10/25/24 10/25/24 10/25/24 Range/Units 14:31 11:32 09:05 WBC (4.8-10.8) x10^3/uL RBC (4.20-5.40) 10^6/uL Hgb (12.0-16.0) g/dL Hct (37.0-47.0) % MCV (81.0-99.0) fL MCH (27.0-31.0) pg MCHC (32.0-36.0) g/dL RDW (12.0-15.0) % Plt Count (130-450) 10^3/uL MPV (7.9-10.8) fL Neut # (Auto) (1.5-6.6) 10^3/uL Lymph # (Auto) (1.5-3.5) 10^3/uL Hawkins # (Auto) (0.0-1.0) 10^3/uL Eos # (Auto) (0.0-0.7) 10^3/uL Baso # (Auto) (0.0-0.1) 10^3/uL Absolute Nucleated RBC x10^3/uL Nucleated RBC % /100WBC Sodium (135-145) mmol/L Potassium (3.5-4.5) mmol/L Chloride (101-111) mmol/L Carbon Dioxide (21-32) mmol/L Anion Gap (6-13) BUN (6-20) mg/dL Creatinine (0.6-1.3) mg/dL Estimated GFR (MDRD) (>89) Glucose (74-104) mg/dL POC Whole Bld Glucose 81 101 139 (70-100) mg/dL Calcium (8.5-10.3) mg/dL Diagnostic Imaging Diagnostic Imaging Results: positive Final report reviewed Assessment/Plan Problem List (1) Encephalopathy acute: Impression: Resolved Pt's energy state and interactions are unpredicatable, it waxes and wanes. However, at any level pt is oriented and aware x 4. DC gabapentin due to increased drowsiness Continue citalopram. (2) UTI (urinary tract infection): Impression: resolved Patient completed full course of Rocephin for UTI. Ocasio catheter was removed on 10/24/2024, patient had episodes of urinary retention, straight cath as needed for volume greater than 400 mL. Qualifiers: Hematuria presence: without hematuria Urinary tract infection type: a cute cystitis Qualified Code(s): N30.00 - Acute cystitis without hematuria (3) Hypoglycemia: Impression: Resolved Discontinue D5 half-normal today, continue to monitor blood glucose. Pt has episodes of low blood glucose in the mid 60s. Pt is asymptomatic during these episodes. Consulted surgery for recommendation for possible feeding tube placement. If feeding tube placement is required, surgery recommended that patient should be transferred to a hospital with GI expertise due to her Crohns flare ups. . (4) History of colostomy: Impression: Patient with Crohn's disease Required colostomy. Previously on Isabella. Has a colostomy in place on the right side. Current output is minimal. Continue to monitor. (5) Thrombocytopenia: Impression: Chronic, most likely secondary to History of alcohol use disorder and Chronic poor nutrition In the background of Crohn's disease. No active bleeding noted, continue to monitor. (6) Alcohol use: Impression: No current alcohol use, continue folic acid, multivitamin and thiamine (7) Hypertension: Impression: Pt bp is well controlled. Sofar pt has not needed bp meds. Hydralazine as needed for SBP greater than 160 Hold patient's p.o. Antihypertensive medications Qualifiers: Hypertension type: primary hypertension Qualified Code(s): I10 - Essential (primary) hypertension (8) Crohn's disease: Impression: Patient with Chron's. Required colostomy. Previously on Isabella. Has a colostomy in place on the right side. Current output is minimal. Continue to monitor. Patient back on normal Pured diet. Qualifiers: Digestive disease complication type: unspecified complication G astrointestinal tract location: unspecified location Qualified Code(s): K50.919 - Crohn's disease, unspecified, with unspecified complications (9) Weakness: Impression: Patient is quite lethargic But oriented x 4. PT/OT has been working with her and she has been walking the halls lately. Pt recommends DC to SNF as patient appears unsafe for home PT at this time (10) Hyperkalemia: Impression: Patient's Crohn disease most likely contributes to her hypokalemia, currently states known to reduce absorption of sodium chloride and calcium while increased accretion of potassium. Lokelma every 8 hours x 3. Monitor potassium
[2024-10-26] MEDS: SODIUM ZIRCONIUM CYCLOSILICATE 5 GM PACKET PO SCH (08:32)
[2024-10-27 05:30] LABS: BASOPHILS % (AUTO) 0.3 %; EOSINOPHILS # (AUTO) 0.1 10^3/uL (0.0-0.7); EOSINOPHILS % (AUTO) 1.2 %; HCT - HEMATOCRIT 25.3 % (37.0-47.0); HGB - HEMOGLOBIN 8.2 g/dL (12.0-16.0); LYMPHOCYTES # (AUTO) 0.4 10^3/uL (1.5-3.5); LYMPHOCYTES % (AUTO) 5.1 %; MEAN CORPUSCULAR HEMOGLOBIN 29.3 pg (27.0-31.0); MEAN CORPUSCULAR HGB CONC 32.4 g/dL (32.0-36.0); MEAN CORPUSCULAR VOLUME 90.4 fL (81.0-99.0); MONOCYTES # (AUTO) 0.3 10^3/uL (0.0-1.0); MONOCYTES % (AUTO) 4.1 %; NEUTROPHILS # (AUTO) 6.6 10^3/uL (1.5-6.6); NEUTROPHILS % (AUTO) 88.8 %; PLT - PLATELET COUNT 123 10^3/uL (130-450); RED CELL DISTRIBUTION WIDTH 14.5 % (12.0-15.0); WHITE BLOOD COUNT 7.4 x10^3/uL (4.8-10.8)
[2024-10-27 06:21] LABS: CALCIUM 9.3 mg/dL (8.5-10.3); CREATININE 0.7 mg/dL (0.6-1.3)
[2024-10-27 07:32] VITALS: TEMP 97.9
[2024-10-27 09:39] VITALS: BP 127/85; O2SAT 98
--- NOTE | 2024-10-27 11:40 | Discharge Summary ---
"Discharge Summary Admit Date: 10/20/24 Discharge Date: 10/27/24 Discharging Provider: Dr. Meng Code Status: Attempt Resuscitation DIAGNOSES Admission Diagnoses: Metabolic encephalopathy UTI Hypoglycemia Uremia Discharge Diagnoses with Status of Each Condition: Metabolic encephalopathy: Resolved UTI: Treated with 5 days of Cipro, resolved Hypoglycemia: Patient now on a regular diet, still persistent episodes of Mild, asymptomatic hypoglycemia in the background of Crohn's disease. Uremia: Resolved Depression: Patient was started on low-dose citalopram to follow-up with primary care physician Hyperkalemia: Patient on low kalemia of as outpatient daily HPI History of Present Illness: Patient is a 64-year-old female with a history of Chrons disease previously on Humira, ostomy bag in place, MSSA bacteremia with sepsis in 07/2023, former alcohol use, currently in remission, who presents with altered mentation and weakness. Patient states that she was confused at home, and her got worried, and brought her in. ED documentation is reviewedshe was seen in clinic on Monday, and started on Macrobid. Despite that, she was becoming more weak and confused. She has been eating and drinking less at home. Her colostomy output has been largely the same. In the ED, she was found to be leukopenic with white count of 2.9, platelets were low at 99, potassium was mildly elevated at 4.9, sodium was 141. She was persistently hypoglycemic with sugars in the 60s. She was started on D5 normal saline overnight. UA was negative for leukocyte esterase, nitrites, etc. however, patient was taking antibiotics at home already, so this may be falsely sterilized. Urine culture was done at the clinic she went to on Monday, and this is not resulted yet. This morning, she is doing better. She is eating and drinking well. She is alert and oriented x 4. She is lethargic and tired though. She has not been able to get out of bed. She has no focal deficits. She does endorse some dysuria still. She was retaining urine, so they did place a Ocasio overnight. CONSULTS | PROCEDURES Consultations: Surgery HOSPITAL COURSE Hospital Course: 10/22/2024: Patient is quite lethargic But alert and oriented x 4.Patient has no complaints. at bedside who confirms Patient's weakness and confusion over the last few days 10/23/2024: Patient is still very lethargic. But oriented and alert x 4 when waking up. Patient has no complaints. is at bedside who would like patient to be transferred for possible feeding tube placement vs some other nutritional support 10/24/2024. Patient is much more interactive today. Patient states she has no complaints, no pain no distress.Patient refused oral medications yesterday. 10/25/2024:Patient is awake, states she feels fine, denies any pain. Pt states that she is taking part in PT and has been walking around. at bedside who would like patient to be discharged to a rehab facility 10/26/2024: Today patient is quite lethargic, only answers in one-word syllables. Overnight patient had an Episode of border line low glucose of 67 and borderline low heart rate around 40. Patient remained asymptomatic during these episodes. (1) Encephalopathy acute: Impression: Resolved Pt's energy state and interactions are unpredicatable, it waxes and wanes. However, at any level pt is oriented and aware x 4. DC gabapentin due to increased drowsiness Continue citalopram. (2) UTI (urinary tract infection): Impression: resolved Patient completed full course of Rocephin for UTI. Ocasio catheter was removed on 10/24/2024, patient had episodes of urinary retention, straight cath as needed for volume greater than 400 mL. (3) Hypoglycemia: Impression: Resolved Discontinue D5 half-normal today, continue to monitor blood glucose. Pt has episodes of low blood glucose in the mid 60s. Pt is asymptomatic during these episodes. Consulted surgery for recommendation for possible feeding tube placement. If feeding tube placement is required, surgery recommended that patient should be transferred to a hospital with GI expertise due to her Crohns flare ups. . (4) History of colostomy: Impression: Patient with Crohn's disease Required colostomy. Previously on Isabella. Has a colostomy in place on the right side. Current output is minimal. Continue to monitor. (5) Thrombocytopenia: Impression: Chronic, most likely secondary to History of alcohol use disorder and Chronic poor nutrition In the background of Crohn's disease. No active bleeding noted, continue to monitor. (6) Alcohol use: Impression: No current alcohol use, continue folic acid, multivitamin and thiamine (7) Hypertension: Impression: Pt bp is well controlled. Sofar pt has not needed bp meds. Hydralazine as needed for SBP greater than 160 Hold patient's p.o. Antihypertensive medications Amlodipine was restarted on 10/26/2024 (8) Crohn's disease: Impression: Patient with Chron's. Required colostomy. Previously on Isabella. Has a colostomy in place on the right side. Current output is minimal. Continue to monitor. Patient's diet was advanced to regular diet on 10/26/2024 patient tolerated diet well. (9) Weakness: Impression: Patient is quite lethargic But oriented x 4. PT/OT has been working with her and she has been walking the halls lately. Pt recommends DC to SNF as patient appears unsafe for home PT at this time (10) Hyperkalemia: Impression: Patient's Crohn disease most likely contributes to her hypokalemia, currently states known to reduce absorption of sodium chloride and calcium while increased accretion of potassium. Lokelma every 8 hours x 3. Monitor potassium ALLERGIES Allergies Allergy/AdvReac Type Severity Reaction Status Date / Time Penicillins Allergy Anaphylaxis Verified 10/19/24 20:08 vancomycin Allergy Rash Verified 10/19/24 20:08 methocarbamol AdvReac Dizziness Verified 10/19/24 20:08 MEDICATIONS Ambulatory Orders Medication Instructions Recorded Confirmed tramadol 50 mg tablet 50 mg PO DAILY PRN Pain 5-7 05/13/24 10/20/24 amlodipine 5 mg tablet 5 mg PO DAILY 06/24/24 10/20/24 magnesium 250 mg tablet 250 mg PO QDAY 08/26/24 10/20/24 naproxen sodium 220 mg tablet 220 mg PO Q8H PRN pain 10/20/24 10/20/24 (Aleve) citalopram 20 mg tablet 20 mg PO DAILY #60 tabs 10/27/24 sodium zirconium cyclosilicate 10 10 g PO DAILY #30 ea 10/27/24 gram oral powder packet (Lokelma) PHYSICAL EXAM AT DISCHARGE General Appearance: positive No acute distress and Alert ENT: positive ENT inspection nml Neck: positive Nml inspection and Trachea midline Respiratory: positive Chest non-tender and No respiratory distress Cardiovascular: positive Regular rate & rhythm and No murmur Abdomen: positive Non-tender, No organomegaly and Other (Colostomy present) Skin: positive Color nml and No rash Extremities: positive Non-tender and Full ROM Neurologic/Psychiatric: positive Oriented x3 and CN's nml (2-12) LABS 10/27/24 05:13 10/27/24 05:13 DIAGNOSTIC IMAGING Diagnostic Imaging Results: Final report reviewed FOLLOW UP Follow Up: Primary care physician with in 7 days TIME SPENT Time Spent in Discharge (Minutes): 30 Discharge Plan Discharge Patient Disposition: 06 Home Health Service Condition: Good Prescriptions: New citalopram 20 mg Tablet 20 mg PO DAILY Qty: 60 2RF Lokelma 10 gram powder in packet 10 g PO DAILY Qty: 30 2RF Continued tramadol 50 MG tablet 50 mg PO DAILY PRN (Reason: Pain 5-7) Patient Comments: take 1 tablet by mouth twice a day NEEDED FOR PAIN NOT TO EXCEED 100MG/DAY amlodipine 5 MG tablet 5 mg PO DAILY Patient Comments: take 1 tablet by mouth once daily naproxen sodium [Aleve] 220 mg tablet 220 mg PO Q8H PRN (Reason: pain) magnesium 250 mg tablet 250 mg PO QDAY Discontinued gabapentin 300 MG capsule 300 mg PO 2200 gabapentin 100 MG capsule 100 mg PO 0600,1200,1800 ciprofloxacin HCl 500 mg tablet 500 mg PO BID Qty: 20 0RF Activity Restrictions: Activity as Tolerated Diet: Regular Health Concerns: Please drink 1 glass of orange juice 3 times a day to prevent Low blood sugar Please take low kalemia once a day to prevent elevated potassium Continue with physical rehab Plan of Treatment: Please see your primary care physician within 1 week and obtain a chemistry panel to check for your potassium level. Please discuss with your primary care physician your new antidepressant medication citalopram Print Language: Libyan Patient Instructions: Potassium, Crohn Disease, Adjustment Disorder, Blood Sugar Low Ch Stand Alone Forms: PCP List"
== END 2024-10-27 12:01 | disposition home health service (06) | DRG 689 ==
LOC: MS2 19:47 → ED 19:47 → MS2 10-20 01:00
PROVIDERS: ADMIT Internal Medicine; ATTEND Internal Medicine
DX: Z93.3 Colostomy status; E87.5 Hyperkalemia; Z88.8 Allergy status to other drugs, medicaments and biological substances; Z88.1 Allergy status to other antibiotic agents; Z79.899 Other long term (current) drug therapy; F32.A Depression, unspecified; E16.2 Hypoglycemia, unspecified; N19 Unspecified kidney failure; K50.919 Crohn's disease, unspecified, with unspecified complications; G92.8 Other toxic encephalopathy; R33.9 Retention of urine, unspecified; Z88.0 Allergy status to penicillin; R30.0 Dysuria; F10.11 Alcohol abuse, in remission; D72.819 Decreased white blood cell count, unspecified; I10 Essential (primary) hypertension; Z91.148 Patient's other noncompliance with medication regimen for other reason; R53.1 Weakness; N30.00 Acute cystitis without hematuria; R00.1 Bradycardia, unspecified; D69.6 Thrombocytopenia, unspecified

== ENCOUNTER 2024-11-27 16:14 | Observation (INO) ==
[2024-11-27 20:00] LABS: BASOPHILS # (AUTO) 0.1 10^3/uL (0.0-0.1); BASOPHILS % (AUTO) 0.7 %; EOSINOPHILS % (AUTO) 0.5 %; HCT - HEMATOCRIT 26.8 % (37.0-47.0); HGB - HEMOGLOBIN 9.1 g/dL (12.0-16.0); LYMPHOCYTES # (AUTO) 0.2 10^3/uL (1.5-3.5); LYMPHOCYTES % (AUTO) 3.2 %; MEAN CORPUSCULAR HEMOGLOBIN 30.2 pg (27.0-31.0); MEAN PLATELET VOLUME 9.4 fL (7.9-10.8); MONOCYTES # (AUTO) 0.2 10^3/uL (0.0-1.0); MONOCYTES % (AUTO) 2.4 %; NEUTROPHILS % (AUTO) 92.9 %; NRBC ABSOLUTE COUNT (AUTO) 0.02 x10^3/uL; NUCLEATED RED BLOOD CELLS AUTO 0.3 /100WBC; PLT - PLATELET COUNT 140 10^3/uL (130-450); RED BLOOD COUNT 3.01 10^6/uL (4.20-5.40); RED CELL DISTRIBUTION WIDTH 16.3 % (12.0-15.0); WHITE BLOOD COUNT 7.6 x10^3/uL (4.8-10.8)
[2024-11-27 20:11] LABS: ALBUMIN 3.4 g/dL (3.2-5.5); ALBUMIN/GLOBULIN RATIO 1.1 (1.0-2.2); ALKALINE PHOSPHATASE 82 IU/L (42-121); ALT ALANINE AMINOTRANSFERASE 21 IU/L (10-60); AST ASPARTATE AMINOTRANSFERASE 25 IU/L (10-42); BILIRUBIN,TOTAL 0.3 mg/dL (0.2-1.0); BUN - BLOOD UREA NITROGEN 17 mg/dL (6-20); CALCIUM 9.3 mg/dL (8.5-10.3); CARBON DIOXIDE - CO2 23 mmol/L (21-32); CHLORIDE 99 mmol/L (101-111); CREATININE 0.5 mg/dL (0.6-1.3); ETOH - ETHANOL < 10.0 mg/dL; GFR - MDRD 124 (>89); GLUCOSE 67 mg/dL (74-104); LIPASE 110 U/L (11-82); POTASSIUM 4.3 mmol/L (3.5-4.5); SODIUM 128 mmol/L (135-145); TOTAL PROTEIN 6.4 g/dL (6.4-8.9)
--- NOTE | 2024-11-27 20:28 | ED Physician Documentation ---
History of Present Illness Stated complaint Stated Complaint: AMS Chief complaint Chief Complaint: Neuro History obtained from History obtained from: Patient and Family (spouse) Additonal information Additional information: 64yF presents with ams, found earlier today to have hyponatremia, worse than her usual but alert and oriented at that time. She was provided with normal saline and sent home but then had worsening confusion per and brought back in. they deny fever, pain, fnd, or other symptoms Meds/Allgy Home Medications Ambulatory Orders Medication Instructions Recorded Confirmed tramadol 50 mg tablet 50 mg PO DAILY PRN Pain 5-7 05/13/24 11/27/24 amlodipine 5 mg tablet 5 mg PO DAILY 06/24/24 11/27/24 magnesium 250 mg tablet 250 mg PO QDAY 08/26/24 11/27/24 naproxen sodium 220 mg tablet 220 mg PO Q8H PRN pain 10/20/24 11/27/24 (Aleve) citalopram 20 mg tablet 20 mg PO DAILY #60 tabs 10/27/24 11/27/24 sodium zirconium cyclosilicate 10 10 g PO DAILY #30 ea 10/27/24 11/27/24 gram oral powder packet (Lokelma) nystatin 100,000 unit/gram topical topical 11/27/24 cream Allergies Allergies Allergy/AdvReac Type Severity Reaction Status Date / Time Penicillins Allergy Anaphylaxis Verified 11/27/24 16:23 vancomycin Allergy Rash Verified 11/27/24 16:23 methocarbamol AdvReac Dizziness Verified 11/27/24 16:23 PFSH Surgical History Surgical History (Updated 10/20/24 @ 10:30 by Mirella Little MD) History of colostomy Social History Social History Smoking Status: Never smoker Second hand tobacco smoke exposure: No Do you dip or chew tobacco?: No Do you vape?: No Patient requests smoking cessation consult: No Initiate information on smoking cessation: No Living arrangement: At home Living Condition: With spouse/s.o. Relationship: Spouse Level: Assisted Home Mobility Equipment: Walker Do you feel safe in your home environment?: Yes Suffered physical, verbal, emotional, or financial abuse?: No History of Abuse: No ETOH Use: Other Frequency: Occasional Are you sexually active?: No POLST Patient has POLST: No POLST Status: Full Code Exam Constitutional normal general appearance, no apparent distress and average body habitus HENKS normocephalic, head/scalp atraumatic, hearing grossly normal bilaterally and oropharynx normal Eyes PERRL and EOMs intact bilaterally Neck/C-Spine visual inspection normal Chest inspection of chest normal Respiratory breath sounds equal bilaterally, normal respiratory effort and clear to auscultation bilaterally Cardiovascular normal heart rate noted and regular rhythm noted Gastrointestinal abdomen normal to inspection, abdomen soft to palpation and nontender to palpation Extremities normal to inspection and normal to palpation 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, speech normal, coordination normal and no pronator drift noted GCS 14 (confused speech) Psychiatry AOX2 (unable to accurately state week, month or year but can ID location and her name) Skin skin color normal Results Vitals Vitals: Vital Signs - 24 hr 11/27/24 11:00 11/27/24 16:23 11/27/24 18:45 Temperature 34.1 C L 35.8 C L Temperature Source Oral Temporal Artery Scan Pulse Rate 66 78 Respiratory Rate 14 16 Blood Pressure 159/94 H 168/59 H O2 Saturation 97 90 L O2 Source Room air Room air Room air Pain Intensity 0 0 11/27/24 19:31 Temperature 36.2 C L Temperature Source Temporal Artery Scan Pulse Rate 65 Respiratory Rate 21 Blood Pressure 144/100 H O2 Saturation 98 O2 Source Room air Pain Intensity 3 Oxygen O2 Source Room air Labs Labs: Laboratory Tests 11/27/24 19:53 WBC 7.6 RBC 3.01 L Hgb 9.1 L Hct 26.8 L MCV 89.0 MCH 30.2 MCHC 34.0 RDW 16.3 H Plt Count 140 MPV 9.4 Neut # (Auto) 7.0 H Lymph # (Auto) 0.2 L Rooks # (Auto) 0.2 Eos # (Auto) 0.0 Baso # (Auto) 0.1 Absolute Nucleated RBC 0.02 Nucleated RBC % 0.3 Sodium 128 L Potassium 4.3 Chloride 99 L Carbon Dioxide 23 Anion Gap 6.0 BUN 17 Creatinine 0.5 L Estimated GFR (MDRD) 124 Glucose 67 L Calcium 9.3 Total Bilirubin 0.3 AST 25 ALT 21 Alkaline Phosphatase 82 Total Protein 6.4 Albumin 3.4 Globulin 3.0 Albumin/Globulin Ratio 1.1 Lipase 110 H Ethyl Alcohol < 10.0 PD Medical Decision Making ED course ED course: 64yF p/w ams and hyponatremia, found to have this previously but worsening today . Sodium 128. mildly hypoglycemic as well. d5ns ordered. d/w hospitalist for admission. Discharge Plan Discharge Patient Disposition: 66 [facility] DC/Xfer Condition: Stable Clinical Impression: Acute hyponatremia, AMS (altered mental status) Prescriptions: No Action tramadol 50 MG tablet 50 mg PO DAILY PRN (Reason: Pain 5-7) Patient Comments: take 1 tablet by mouth twice a day NEEDED FOR PAIN NOT TO EXCEED 100MG/DAY amlodipine 5 MG tablet 5 mg PO DAILY Patient Comments: take 1 tablet by mouth once daily naproxen sodium [Aleve] 220 mg tablet 220 mg PO Q8H PRN (Reason: pain) citalopram 20 mg Tablet 20 mg PO DAILY Qty: 60 2RF Lokelma 10 gram powder in packet 10 g PO DAILY Qty: 30 2RF nystatin 100,000 unit/gram cream TOPICAL Patient Comments: apply to affected area twice a day for 2 to 3 weeks magnesium 250 mg tablet 250 mg PO QDAY Print Language: Thai Stand Alone Forms: PCP List
[2024-11-27 20:29] LABS: BILIRUBIN,URINE NEGATIVE (NEGATIVE); GLUCOSE, URINE (UA) NEGATIVE (NEGATIVE); KETONES,URINE (UA) NEGATIVE (NEGATIVE); LEUKOCYTE ESTERASE, URINE TRACE (NEGATIVE); NITRITE,URINE NEGATIVE (NEGATIVE); OCCULT BLOOD,URINE NEGATIVE (NEGATIVE); PROTEIN,URINE NEGATIVE (NEGATIVE); UROBILINOGEN,URINE 0.2 (NORMAL) E.U./dL (NORMAL)
[2024-11-27 20:36] LABS: CLARITY,URINE CLEAR (CLEAR)
[2024-11-27] MEDS: DEXTROSE 5%-0.9% NACL 1,000 ML IV STA (20:39)
[2024-11-27 20:43] LABS: AMPHETAMINE SCREEN,URINE NEGATIVE (NEGATIVE); BACTERIA,URINE Rare /HPF (None Seen); BARBITURATE SCREEN,UR NEGATIVE (NEGATIVE); BENZODIAZEPINES SCREEN, URINE NEGATIVE (NEGATIVE); BUPRENORPHINE SCREEN, URINE NEGATIVE (NEGATIVE); COCAINE SCREEN URINE NEGATIVE (NEGATIVE); METHADONE SCREEN, URINE NEGATIVE (NEGATIVE); METHAMPHETAMINES SCREEN, URINE NEGATIVE (NEGATIVE); OPIATE SCREEN, URINE NEGATIVE (NEGATIVE); OXYCODONE SCREEN, URINE NEGATIVE (NEGATIVE); RBC,URINE None Seen /HPF (0-5); SQUAMOUS EPITHELIAL CELL,UR RARE Squamous (<= Few); THC CANNABINOID SCREEN, URINE NEGATIVE (NEGATIVE); TRICYCLIC ANTIDEPRESSANT,URINE NEGATIVE (NEGATIVE); WBC,URINE 0-3 /HPF (0-5)
--- NOTE | 2024-11-27 20:50 | HISTORY & PHYSICAL EXAMINATION ---
Chief Complaint Chief Complaint Chief Complaint: Confusion History of Present Illness Admitted From Admitted From:: Home with asthma History Obtained From History obtained from: Patient interview, at bedside Exam Limitations: Patient is slow with responses History of Present Illness HPI Comment/Other: 64-year-old female with previous admissions for alcohol withdrawal, UTI who presents with confusion. She presented earlier today and was found to be hyponatremic. She was given normal saline and sent home. Her confusion worsen, so her brought her back and. Denies fever, chills, pain, dyspnea, urine/bowel abnormalities. In the ER, she was again noted to be hyponatremic. It went from 127 this morning to 128 tonight. UA was checked and found to be clear. Hospitalist was contacted for admission for acute hyponatremia causing altered mental status Meds/Allgy Home Medications Ambulatory Orders Medication Instructions Recorded Confirmed tramadol 50 mg tablet 50 mg PO DAILY PRN Pain 5-7 05/13/24 11/27/24 amlodipine 5 mg tablet 5 mg PO DAILY 06/24/24 11/27/24 magnesium 250 mg tablet 250 mg PO QDAY 08/26/24 11/27/24 naproxen sodium 220 mg tablet 220 mg PO Q8H PRN pain 10/20/24 11/27/24 (Aleve) citalopram 20 mg tablet 20 mg PO DAILY #60 tabs 10/27/24 11/27/24 sodium zirconium cyclosilicate 10 10 g PO DAILY #30 ea 10/27/24 11/27/24 gram oral powder packet (Lokelma) nystatin 100,000 unit/gram topical topical 11/27/24 cream Allergies Allergies Allergy/AdvReac Type Severity Reaction Status Date / Time Penicillins Allergy Anaphylaxis Verified 11/27/24 16:23 vancomycin Allergy Rash Verified 11/27/24 16:23 methocarbamol AdvReac Dizziness Verified 11/27/24 16:23 PFSH Surgical History Surgical History (Updated 10/20/24 @ 10:30 by Mirella Little MD) History of colostomy Social History Social History Smoking Status: Never smoker Second hand tobacco smoke exposure: No Do you dip or chew tobacco?: No Do you vape?: No Patient requests smoking cessation consult: No Initiate information on smoking cessation: No Living arrangement: At home Living Condition: With spouse/s.o. Relationship: Spouse Level: Assisted Home Mobility Equipment: Walker Do you feel safe in your home environment?: Yes Suffered physical, verbal, emotional, or financial abuse?: No History of Abuse: No ETOH Use: Other Frequency: Occasional Are you sexually active?: No POLST Patient has POLST: No POLST Status: Full Code Review of Systems Status of ROS: 10 or more systems reviewed and unremarkable except as noted in history and below Constitutional Denies: Fever or Chills Cardiovascular Reports: edema (Edema in her hands after fluid bolus); Denies: Irregular heart rate, chest pain, palpitations or shortness of breath with exertion Respiratory Denies: Shortness of breath or Cough Gastrointestinal Denies: Abdominal pain or Abdominal distention Genitourinary Denies: Painful urination Musculoskeletal Denies: Back pain Integumentary/Breast Denies: Rash Neurological Reports: General weakness and Confusion Exam Constitutional normal general appearance and no apparent distress HENMT normocephalic and head/scalp atraumatic Eyes PERRL Chest inspection of chest normal Respiratory breath sounds equal bilaterally Cardiovascular normal heart rate noted Gastrointestinal abdomen normal to inspection Ileostomy in place on right side Extremities Trace edema in both hands Neurology GCS 15 Psychiatry oriented x3 Responses are delayed, occasional slurring of speech Skin Redness with edema in hands Conclusion/Plan Problem List (1) Acute hyponatremia: Plan: reports that she has not been drinking EtOH since discharge, has decent oral intake Sodium chloride tablet 2 g twice daily Sodium checks every 4 hours Will be cautious with fluid repletion as she Has some peripheral edema after saline bolus earlier She has Celexa on her home med list, this could be a factor (2) Encephalopathy acute: Plan: Likely secondary to hyponatremia UA clear Denies alcohol use (3) Ulcerative colitis, chronic: Plan: Ileostomy in place No acute flare On Humira at home per chart review Qualifiers: Ulcerative colitis location: unspecified ulcerative colitis location D igestive disease complication type: without complication Qualified Code(s): K 51.90 - Ulcerative colitis, unspecified, without complications (4) Hypoglycemia: Plan: D50 IV once Glucose checks ACHS BMP in a.m. Plan Placed in observation Full code is her surrogate decision-maker Lab Results Lab results reviewed: Yes 11/27/24 19:53 11/27/24 19:53
[2024-11-27] MEDS: DEXTROSE 50% ABBOJECT 25 GM/50 ML SYRINGE IVP ONE (21:09)
[2024-11-27] MEDS: SODIUM CHLORIDE 1 GM TABLET PO SCH (21:26)
[2024-11-27] MEDS ORDERED: ONDANSETRON ODT 4 MG TABLET TL PRN (21:59)
[2024-11-27] MEDS ORDERED: SODIUM CHLORIDE FLUSH 0.9% 10 ML SYRINGE IVP PRN (21:59)
[2024-11-27] MEDS ORDERED: ONDANSETRON 4 MG/2 ML VIAL IVP PRN (21:59)
[2024-11-27] MEDS: ACETAMINOPHEN 325 MG TABLET PO PRN (23:53)
[2024-11-27] MEDS: SODIUM CHLORIDE FLUSH 0.9% 10 ML SYRINGE IVP SCH (23:53)
[2024-11-28 04:34] VITALS: TEMP 97.3; O2SAT 97
[2024-11-28 06:12] LABS: BASOPHILS % (AUTO) 0.5 %; EOSINOPHILS # (AUTO) 0.1 10^3/uL (0.0-0.7); EOSINOPHILS % (AUTO) 1.3 %; HCT - HEMATOCRIT 25.9 % (37.0-47.0); HGB - HEMOGLOBIN 8.6 g/dL (12.0-16.0); LYMPHOCYTES # (AUTO) 0.3 10^3/uL (1.5-3.5); LYMPHOCYTES % (AUTO) 5.4 %; MEAN CORPUSCULAR HGB CONC 33.2 g/dL (32.0-36.0); MEAN CORPUSCULAR VOLUME 90.2 fL (81.0-99.0); MEAN PLATELET VOLUME 9.9 fL (7.9-10.8); MONOCYTES # (AUTO) 0.2 10^3/uL (0.0-1.0); MONOCYTES % (AUTO) 4.3 %; NEUTROPHILS % (AUTO) 88.3 %; PLT - PLATELET COUNT 131 10^3/uL (130-450); RED BLOOD COUNT 2.87 10^6/uL (4.20-5.40); RED CELL DISTRIBUTION WIDTH 16.6 % (12.0-15.0); WHITE BLOOD COUNT 5.6 x10^3/uL (4.8-10.8)
[2024-11-28 06:18] LABS: CALCIUM 9.3 mg/dL (8.5-10.3); CREATININE 0.6 mg/dL (0.6-1.3)
[2024-11-28 08:16] VITALS: BP 108/65
[2024-11-28] MEDS: ENOXAPARIN 40 MG/0.4 ML SYRINGE SUBQ SCH (08:43)
--- NOTE | 2024-11-28 11:36 | Discharge Summary ---
Discharge Summary Admit Date: 11/27/24 Discharge Date: 11/28/24 Discharging Provider: Beto Price Primary Care Provider: Naye Reyes Code Status: Attempt Resuscitation DIAGNOSES Admission Diagnoses: Acute hyponatremia Acute metabolic encephalopathy History of chronic ulcerative colitis Hypoglycemia Discharge Diagnoses with Status of Each Condition: Acute hyponatremiaimproved, stable for DC Acute metabolic encephalopathyresolved History of chronic ulcerative colitischronic Hypoglycemiaresolved HPI History of Present Illness: 64-year-old female with previous admissions for alcohol withdrawal, UTI who presents with confusion. She presented earlier today and was found to be hyponatremic. She was given normal saline and sent home. Her confusion worsen, so her brought her back and. Denies fever, chills, pain, dyspnea, urine/bowel abnormalities. In the ER, she was again noted to be hyponatremic. It went from 127 this morning to 128 tonight. UA was checked and found to be clear. Hospitalist was contacted for admission for acute hyponatremia causing altered mental status HOSPITAL COURSE Hospital Course: She was held in observation and started on oral sodium replacement. Sodium was trended every 4 until he came above 130. This morning, her confusion has resolved, and her sodium is stable for discharge. She will follow-up with her primary care provider regarding ongoing management including SSRIs, which could be the cause of her hyponatremia. She was also given a written prescription for glucometer supplies. I instructed her to check her sugar before meals and nightly and to keep a log of these to present to her PCP ALLERGIES Allergies Allergy/AdvReac Type Severity Reaction Status Date / Time Penicillins Allergy Anaphylaxis Verified 11/27/24 16:23 vancomycin Allergy Rash Verified 11/27/24 16:23 methocarbamol AdvReac Dizziness Verified 11/27/24 16:23 MEDICATIONS Ambulatory Orders Medication Instructions Recorded Confirmed tramadol 50 mg tablet 50 mg PO DAILY PRN Pain 5-7 05/13/24 11/28/24 amlodipine 5 mg tablet 5 mg PO DAILY 06/24/24 11/28/24 magnesium 250 mg tablet 250 mg PO DAILY 08/26/24 11/28/24 naproxen sodium 220 mg tablet 220 mg PO Q8H PRN pain 10/20/24 11/28/24 (Aleve) sodium zirconium cyclosilicate 10 10 g PO DAILY #30 ea 10/27/24 11/28/24 gram oral powder packet (Lokelma) nystatin 100,000 unit/gram topical 1 applic topical BID 11/27/24 11/28/24 cream citalopram 10 mg tablet 10 mg PO DAILY 11/28/24 11/28/24 sodium chloride 1,000 mg soluble 2,000 mg (2 x 1,000 mg) PO BID 10 11/28/24 tablet days #40 tabs PHYSICAL EXAM AT DISCHARGE General Appearance: positive No acute distress and Alert Eyes Bilateral: positive Normal inspection and PERRL ENT: positive No signs of dehydration Neck: positive No JVD Respiratory: positive Breath sounds nml Cardiovascular: positive Regular rate & rhythm Peripheral Pulses: positive 2+ Abdomen: positive Non-tender Skin: positive Color nml Extremities: positive Non-tender Neurologic/Psychiatric: positive Oriented x3 LABS 11/28/24 05:25 11/28/24 09:00 FOLLOW UP Follow Up: With PCP TIME SPENT Time Spent in Discharge (Minutes): 35 Discharge Plan Discharge Patient Disposition: Home, Self Care Condition: Stable Medically Cleared Date:: 11/28/24 Prescriptions: New sodium chloride 1,000 mg Tablet,Soluble 2,000 mg PO BID 10 Days Qty: 40 0RF Continued tramadol 50 MG tablet 50 mg PO DAILY PRN (Reason: Pain 5-7) Patient Comments: take 1 tablet by mouth twice a day NEEDED FOR PAIN NOT TO EXCEED 100MG/DAY amlodipine 5 MG tablet 5 mg PO DAILY Patient Comments: take 1 tablet by mouth once daily naproxen sodium [Aleve] 220 mg tablet 220 mg PO Q8H PRN (Reason: pain) Lokelma 10 gram powder in packet 10 g PO DAILY Qty: 30 2RF nystatin 100,000 unit/gram cream 1 applic TOPICAL BID Patient Comments: apply to affected area twice a day for 2 to 3 weeks magnesium 250 mg tablet 250 mg PO DAILY No Action citalopram 10 mg tablet 10 mg PO DAILY Patient Comments: take 1 tablet by mouth once daily Diet: Regular Interventions: Discharge Last Done: 11/28/24 13:09 Discharge Checklist - Nursing Last Done: 11/28/24 13:09 Health Concerns: You came into the emergency department for confusion. You were initially given a dose of IV saline, and discharge. Your confusion did not resolve, so you came back and were Placed in observation overnight while I gave you salt pills and watch her sodium come back up to a safe range. Your mentation has improved greatly, and you are stable for discharge today. I would like for you to remain active within the house, and try to eat as much as possible. I would encourage you to make sure your food is well salted, and I am also sending you home with a 10-day supply of sodium chloride tablets for you to take twice daily. I would like for you to follow-up with your primary care provider within 1 to 2 weeks, and discuss with them whether or not your Celexa should be continued as it could be contributing to your low sodium levels. Print Language: German Patient Instructions: Hyponatremia Dc Stand Alone Forms: PCP List Follow-up Care: Amy Yancey ARNP [Primary Care Provider] -
--- NOTE | 2024-11-28 12:40 | PHARMACY PROGRESS NOTE ---
Best Possible Medication History Admit Date and Time: 11/27/242046 Home Medications Medication Instructions Recorded Confirmed Type tramadol 50 mg tablet 50 mg PO DAILY PRN Pain 5-7 05/13/24 11/28/24 History amlodipine 5 mg tablet 5 mg PO DAILY 06/24/24 11/28/24 History magnesium 250 mg tablet 250 mg PO DAILY 08/26/24 11/28/24 History naproxen sodium 220 mg tablet 220 mg PO Q8H PRN pain 10/20/24 11/28/24 History (Aleve) sodium zirconium cyclosilicate 10 10 g PO DAILY #30 ea 10/27/24 11/28/24 Rx gram oral powder packet (Lokelma) nystatin 100,000 unit/gram topical 1 applic topical BID 11/27/24 11/28/24 History cream citalopram 10 mg tablet 10 mg PO DAILY 11/28/24 11/28/24 History sodium chloride 1,000 mg soluble 2,000 mg (2 x 1,000 mg) PO BID 11/28/24 Rx tablet days #40 tabs Processed by: Pharmacy Medications reviewed in ED?: No Medication History completed: Yes Patient Interview: Completed (by compounding pharmacy technicianWm) Secondary Source(s): Insurance records [facility] Statement: As the person ultimately responsible for medication therapy, providers are able to order a medication from an existing home medication list in [facility] via the "Reconcile Routine" prior to Confirmation of that medication by product support engineer. Such practice is discouraged except when the physician, in their clinical judgment, deems that a medical need exists for a medication without regard to previous use.
== END 2024-11-28 12:55 | disposition home or self-care (01) ==
LOC: ED 16:14 → MS2 16:14
PROVIDERS: ADMIT Nurse Practitioner Acute Care; ATTEND Nurse Practitioner Acute Care
DX: K51.90 Ulcerative colitis, unspecified, without complications; E87.1 Hypo-osmolality and hyponatremia; E16.2 Hypoglycemia, unspecified; E86.0 Dehydration; Z93.2 Ileostomy status; G93.41 Metabolic encephalopathy

== ENCOUNTER 2025-01-08 12:58 | Observation (INO) ==
[2025-01-08 13:33] LABS: BASOPHILS % (AUTO) 0.1 %; EOSINOPHILS # (AUTO) 0.1 10^3/uL (0.0-0.7); EOSINOPHILS % (AUTO) 0.7 %; HCT - HEMATOCRIT 39.9 % (37.0-47.0); HGB - HEMOGLOBIN 13.8 g/dL (12.0-16.0); LYMPHOCYTES # (AUTO) 0.4 10^3/uL (1.5-3.5); LYMPHOCYTES % (AUTO) 4.1 %; MEAN CORPUSCULAR HEMOGLOBIN 29.4 pg (27.0-31.0); MEAN CORPUSCULAR HGB CONC 34.6 g/dL (32.0-36.0); MEAN CORPUSCULAR VOLUME 85.1 fL (81.0-99.0); MEAN PLATELET VOLUME 10.6 fL (7.9-10.8); MONOCYTES # (AUTO) 0.4 10^3/uL (0.0-1.0); MONOCYTES % (AUTO) 4.2 %; NEUTROPHILS % (AUTO) 90.5 %; PLT - PLATELET COUNT 89 10^3/uL (130-450); RED BLOOD COUNT 4.69 10^6/uL (4.20-5.40); RED CELL DISTRIBUTION WIDTH 13.7 % (12.0-15.0)
[2025-01-08 13:48] LABS: ALBUMIN 3.5 g/dL (3.2-5.5); ALBUMIN/GLOBULIN RATIO 1.2 (1.0-2.2); BILIRUBIN,TOTAL 0.3 mg/dL (0.2-1.0); CALCIUM 9.4 mg/dL (8.5-10.3); CREATININE 0.5 mg/dL (0.6-1.3); MAGNESIUM 1.3 mg/dL (1.7-2.3); POTASSIUM 4.6 mmol/L (3.5-4.5); TOTAL PROTEIN 6.5 g/dL (6.4-8.9)
[2025-01-08] MEDS: MAGNESIUM SULFATE 2 GRAM 2 GM/50 ML BAG IV ONE (14:58)
--- NOTE | 2025-01-08 15:52 | ED Physician Documentation ---
History of Present Illness Stated complaint Stated Complaint: CONFUSED Chief complaint Chief Complaint: Neuro History obtained from History obtained from: Patient and Family ( who is present and helps provide history) History of Present Illness Timing: Prior to arrival Additonal information Additional information: Patient is a 64-year-old female presenting to the emergency department with hypertension, hyperlipidemia, history of Crohn's, history of alcohol abuse. Patient presents to the ED with increased confusion has not been reports she has extensive health issues with recently having encephalopathy and UTI with bacteremia which she was hospitalized with at an outside facility since then she has been admitted for visiting the ER for recurrent episodes of confusion 6 times within the last 2 months. Patient has history of hyponatremia and hyperkalemia, with hypotension as well. Patient most recently was seen 3 days ago for hypotension and was discharged home. has been trying to monitor her blood sugars and blood pressures at home. Meds/Allgy Home Medications Ambulatory Orders Medication Instructions Recorded Confirmed amlodipine 5 mg tablet 5 mg PO DAILY 06/24/24 01/08/25 magnesium 250 mg tablet 250 mg PO DAILY 08/26/24 01/08/25 naproxen sodium 220 mg tablet 220 mg PO Q8H PRN pain 10/20/24 01/08/25 (Aleve) sodium zirconium cyclosilicate 10 10 g PO DAILY #30 ea 10/27/24 01/08/25 gram oral powder packet (Lokelma) citalopram 10 mg tablet 10 mg PO DAILY 11/28/24 01/08/25 sodium chloride 1,000 mg soluble 2,000 mg (2 x 1,000 mg) PO BID 10 11/28/24 01/08/25 tablet days #40 tabs carvedilol 6.25 mg tablet 6.25 mg PO BID 01/08/25 01/08/25 cholecalciferol (vitamin D3) 25 25 mcg PO DAILY 01/08/25 01/08/25 mcg (1,000 unit) capsule (Vitamin D3) levothyroxine 25 mcg tablet 25 mcg PO DAILY 01/08/25 01/08/25 thiamine mononitrate (vit B1) 100 100 mg PO DAILY 01/08/25 01/08/25 mg tablet Allergies Allergies Allergy/AdvReac Type Severity Reaction Status Date / Time Penicillins Allergy Anaphylaxis Verified 01/04/25 18:12 vancomycin Allergy Rash Verified 01/04/25 18:12 methocarbamol AdvReac Dizziness Verified 01/04/25 18:12 PFS Active Problems All Active Problems (Updated 01/08/25 @ 23:04 by Suzie Alejandra PA-C) Hypertension (Acute) Hyperkalemia (Acute) Crohn disease (Acute) Malabsorption (Acute) Witnessed seizure-like activity (Acute) AMS (altered mental status) (Acute) Hypoglycemia (Acute) Chronic hyponatremia (Acute) Dehydration (Acute) Chronic hyperkalemia (Acute) Depression (Acute) Hyperkalemia (Acute) Hypokalemia (Acute) Weakness (Acute) Alcohol use (Acute) Thrombocytopenia (Acute) UTI (urinary tract infection) (Acute) Acute conjunctivitis (Acute) Medical History Medical History (Updated 01/08/25 @ 23:04 by Suzie Alejandra PA-C) Hypoglycemia Ulcerative colitis, chronic Encephalopathy acute Surgical History Surgical History History of colostomy Social History Social History (Updated 01/08/25 @ 13:19 by Hao Bourne RN) Smoking Status: Never smoker Second hand tobacco smoke exposure: No Do you dip or chew tobacco?: No Do you vape?: No Patient requests smoking cessation consult: No Initiate information on smoking cessation: No Living arrangement: At home Living Condition: With spouse/s.o. Relationship: Spouse Level: Assisted Home Mobility Equipment: Walker Do you feel safe in your home environment?: Yes Suffered physical, verbal, emotional, or financial abuse?: No History of Abuse: No ETOH Use: Other Frequency: Occasional Substance Use: denies use Are you sexually active?: No POLST Patient has POLST: No POLST Status: Full Code Exam Constitutional normal general appearance HENMT normocephalic and head/scalp atraumatic Eyes PERRL, EOMs intact bilaterally and conjunctivae normal Neck/C-Spine visual inspection normal Lymph no lymphadenopathy noted Chest inspection of chest normal Respiratory breath sounds equal bilaterally, normal respiratory effort and clear to auscultation bilaterally Cardiovascular normal heart rate noted, regular rhythm noted and no gallop Back/Pelvis spine normal to inspection Extremities normal to inspection No significant pitting edema. Neurology Patient ANO x 2 on arrival according to this is abnormal she is usually ANO x 3 GCS 14 on arrival she is answering questions with clear speech no slurred speech ,m she has no focal motor deficits moving all extremities with strength intact in upper and lower extremities here in the ED. Skin skin color normal Results Vitals Vitals: Vital Signs - 24 hr 01/08/25 13:03 01/08/25 13:29 01/08/25 15:19 Temperature 35.8 C L Temperature Source Temporal Artery Scan Pulse Rate 74 62 59 L Respiratory Rate 18 17 20 Blood Pressure 185/117 H 159/103 H 120/76 O2 Saturation 98 98 97 O2 Source Room air Room air Room air Pain Intensity 0 0 6 01/08/25 16:11 01/08/25 16:23 01/08/25 18:00 Temperature Temperature Source Pulse Rate 60 Respiratory Rate 17 14 Blood Pressure O2 Saturation 96 O2 Source Room air Room air Pain Intensity 7 0 3 01/08/25 18:41 01/08/25 20:00 Temperature Temperature Source Pulse Rate 58 L 64 Respiratory Rate 19 19 Blood Pressure 136/90 H 153/99 H O2 Saturation 96 96 O2 Source Room air Room air Pain Intensity 4 0 Oxygen O2 Source Room air Labs Labs: Laboratory Tests 01/08/25 01/08/25 01/08/25 13:27 15:51 15:53 WBC 10.0 RBC 4.69 Hgb 13.8 Hct 39.9 MCV 85.1 MCH 29.4 MCHC 34.6 RDW 13.7 Plt Count 89 L MPV 10.6 Neut # (Auto) 9.0 H Lymph # (Auto) 0.4 L Rogers # (Auto) 0.4 Eos # (Auto) 0.1 Baso # (Auto) 0.0 Absolute Nucleated RBC 0.00 Nucleated RBC % 0.0 Sodium 131 L Potassium 4.6 H Chloride 101 Carbon Dioxide 26 Anion Gap 4.0 L BUN 25 H Creatinine 0.5 L Estimated GFR (MDRD) 124 Glucose 69 L POC Whole Bld Glucose 128 Calcium 9.4 Magnesium 1.3 L Total Bilirubin 0.3 AST 25 ALT 28 Alkaline Phosphatase 120 Total Protein 6.5 Albumin 3.5 Globulin 3.0 Albumin/Globulin Ratio 1.2 Urine Color Urine Clarity Urine pH Ur Specific [place] Urine Protein Urine Glucose (UA) Urine Ketones Urine Occult Blood Urine Nitrite Urine Bilirubin Urine Urobilinogen Ur Leukocyte Esterase Ur Microscopic Review Urine Culture Comments Ethyl Alcohol < 10.0 01/08/25 01/08/25 18:17 19:35 WBC RBC Hgb Hct MCV MCH MCHC RDW Plt Count MPV Neut # (Auto) Lymph # (Auto) Rogers # (Auto) Eos # (Auto) Baso # (Auto) Absolute Nucleated RBC Nucleated RBC % Sodium Potassium Chloride Carbon Dioxide Anion Gap BUN Creatinine Estimated GFR (MDRD) Glucose POC Whole Bld Glucose 92 Calcium Magnesium Total Bilirubin AST ALT Alkaline Phosphatase Total Protein Albumin Globulin Albumin/Globulin Ratio Urine Color YELLOW Urine Clarity CLEAR Urine pH 6.0 Ur Specific [place] 1.020 Urine Protein TRACE Urine Glucose (UA) NEGATIVE Urine Ketones NEGATIVE Urine Occult Blood NEGATIVE Urine Nitrite NEGATIVE Urine Bilirubin NEGATIVE Urine Urobilinogen 0.2 (NORMAL) Ur Leukocyte Esterase NEGATIVE Ur Microscopic Review NOT INDICATED Urine Culture Comments NOT INDICATED Ethyl Alcohol PD Medical Decision Making ED course Complexity details: reviewed old records and reviewed results ED course: Patient 64-year-old female well-known to the emergency department for occasional confusion usually associated with hypotension or hypoglycemia he has been seen here in the ED multiple times for this and discharged home. Today patient presents with similar symptoms she is ANO x 2 but confused to day date and situation. is a poor historian but reports they were not a grocery store when patient was unable to answer regular questions that he normally asks her. Her blood sugar on arrival was 67 she was given apple juice and it up trended to 128. Patient's blood sugar was checked every 4 hours and remained stable here in the ED while here in the emergency department CT head attempted to be obtained but patient was irritable and confused and trying to get off the CT scan bed. Patient does have a history of dementia but according to it has never been this severe and only change within the last [address] head: No acute intracranial pathology. Urine is negative and labs are otherwise reassuring no significant hyponatremia no significant hypokalemia or BENSON patient was eating and drinking continuously and blood sugar remained stable but she continues to be confused crying in the room questioning what is going on. does not feel comfortable taking patient home he notes this is not her baseline she has never been symptomatic like this. I discussed with the hospitalist Beto JIMENEZ who agrees to admit to the hospital for obs for persistent confusion. Patient and are agreeable with this plan. Discharge Plan Discharge Patient Disposition: 66 [facility] DC/Xfer Condition: Stable Clinical Impression: Hypoglycemia AMS (altered mental status) Qualifiers: Altered mental status type: delirium Qualified Code(s): R41.0 - Disorientation, unspecified Interventions: ED Admission Assessment Last Done: 01/08/25 21:54
[2025-01-08] MEDS: ACETAMINOPHEN 500 MG TABLET PO STA (16:11)
[2025-01-08] MEDS: hydrOXYzine PAMOATE 25 MG CAPSULE PO STA (17:52)
[2025-01-08 18:21] LABS: BILIRUBIN,URINE NEGATIVE (NEGATIVE); GLUCOSE, URINE (UA) NEGATIVE (NEGATIVE); KETONES,URINE (UA) NEGATIVE (NEGATIVE); LEUKOCYTE ESTERASE, URINE NEGATIVE (NEGATIVE); NITRITE,URINE NEGATIVE (NEGATIVE); OCCULT BLOOD,URINE NEGATIVE (NEGATIVE); PROTEIN,URINE TRACE mg/dL (NEGATIVE); UROBILINOGEN,URINE 0.2 (NORMAL) E.U./dL (NORMAL)
[2025-01-08 18:24] LABS: CLARITY,URINE CLEAR (CLEAR)
--- NOTE | 2025-01-08 18:41 | CT Report ---
PROCEDURE: CT Head WO INDICATIONS: ams TECHNIQUE: Noncontrast 4.5 mm thick angled axial sections acquired from the foramen magnum to the vertex. For r adiation dose reduction, the following was used: automated exposure control, adjustment of mA and/or kV according to patient size. COMPARISON: 12/26/2024. FINDINGS: Image quality: Excellent. CSF spaces: Basal cisterns are patent. No extra-axial fluid collections. Ventricles are normal in size and shape. Brain: No midline shift. No intracranial masses or hemorrhage. Gilmore-white matter interface is norm al. Skull and face: Calvarium and visualized facial bones are intact, without suspicious lesions. Sinuses: Visualized sinuses and mastoids are clear. IMPRESSION: No acute intracranial pathology. Reviewed by: Jose Chavez MD on 01/08/2025 6:06 PM PDT Approved by: Jose Chavez MD on 01/08/2025 6:06 PM PDT Station ID: [id number]
--- NOTE | 2025-01-08 20:28 | HISTORY & PHYSICAL EXAMINATION ---
Chief Complaint Chief Complaint Chief Complaint: Confusion History of Present Illness Admitted From Admitted From:: Home with History Obtained From History obtained from: Interview with patient and at bedside History of Present Illness HPI Comment/Other: 64-year-old female H significant for hypertension, hyperlipidemia, Crohn's, alcohol abuse, multiple ER presentations for confusion came in with increased confusion today. Has been reports that he helped her get into the bath but then she was so confused that he had to pick her up and get her back out to bring her into the ER. She has been admitted before for multiple electrolyte abnormalities and confusion. She has been to the ER for confusion 6 times within the past 2 months. In the ER, CT head was performed which was negative. Her sodium was 131. Creatinine at baseline. UA clear. She was noted to have a sugar of 69, which was repleted. She had some improvement in her mentation after this, but was still not at her baseline. Hospitalist was contacted for Observation for delirium Meds/Allgy Home Medications Ambulatory Orders Medication Instructions Recorded Confirmed amlodipine 5 mg tablet 5 mg PO DAILY 06/24/24 01/08/25 magnesium 250 mg tablet 250 mg PO DAILY 08/26/24 01/08/25 naproxen sodium 220 mg tablet 220 mg PO Q8H PRN pain 10/20/24 01/08/25 (Aleve) sodium zirconium cyclosilicate 10 10 g PO DAILY #30 ea 10/27/24 01/08/25 gram oral powder packet (Lokelma) citalopram 10 mg tablet 10 mg PO DAILY 11/28/24 01/08/25 sodium chloride 1,000 mg soluble 2,000 mg (2 x 1,000 mg) PO BID 10 11/28/24 01/08/25 tablet days #40 tabs carvedilol 6.25 mg tablet 6.25 mg PO BID 01/08/25 01/08/25 cholecalciferol (vitamin D3) 25 25 mcg PO DAILY 01/08/25 01/08/25 mcg (1,000 unit) capsule (Vitamin D3) levothyroxine 25 mcg tablet 25 mcg PO DAILY 01/08/25 01/08/25 thiamine mononitrate (vit B1) 100 100 mg PO DAILY 01/08/25 01/08/25 mg tablet Allergies Allergies Allergy/AdvReac Type Severity Reaction Status Date / Time Penicillins Allergy Anaphylaxis Verified 01/04/25 18:12 vancomycin Allergy Rash Verified 01/04/25 18:12 methocarbamol AdvReac Dizziness Verified 01/04/25 18:12 PFS Active Problems All Active Problems (Updated 01/08/25 @ 21:15 by Beto Price DNP) Hypertension (Acute) Hyperkalemia (Acute) Crohn disease (Acute) Malabsorption (Acute) Witnessed seizure-like activity (Acute) AMS (altered mental status) (Acute) Hypoglycemia (Acute) Chronic hyponatremia (Acute) Dehydration (Acute) Chronic hyperkalemia (Acute) Depression (Acute) Hyperkalemia (Acute) Hypokalemia (Acute) Weakness (Acute) Alcohol use (Acute) Thrombocytopenia (Acute) UTI (urinary tract infection) (Acute) Acute conjunctivitis (Acute) Medical History Medical History (Updated 01/08/25 @ 21:15 by Beto Price DNP) Hypoglycemia Ulcerative colitis, chronic Encephalopathy acute Surgical History Surgical History History of colostomy Social History Social History (Updated 01/08/25 @ 13:19 by Hao Bourne RN) Smoking Status: Never smoker Second hand tobacco smoke exposure: No Do you dip or chew tobacco?: No Do you vape?: No Patient requests smoking cessation consult: No Initiate information on smoking cessation: No Living arrangement: At home Living Condition: With spouse/s.o. Relationship: Spouse Level: Assisted Home Mobility Equipment: Walker Do you feel safe in your home environment?: Yes Suffered physical, verbal, emotional, or financial abuse?: No History of Abuse: No ETOH Use: Other Frequency: Occasional Substance Use: denies use Are you sexually active?: No POLST Patient has POLST: No POLST Status: Full Code Review of Systems Status of ROS: 10 or more systems reviewed and unremarkable except as noted in history and below Constitutional Denies: Fever or Chills Cardiovascular Denies: Irregular heart rate, chest pain, palpitations or shortness of breath with exertion Respiratory Denies: Shortness of breath or Cough Gastrointestinal Denies: Abdominal pain or Abdominal distention Genitourinary Denies: Painful urination Neurological Reports: Confusion; Denies: Headache or General weakness Exam Constitutional normal general appearance and no apparent distress HENMT head/scalp atraumatic Eyes PERRL Neck/C-Spine visual inspection normal Chest inspection of chest normal Respiratory breath sounds equal bilaterally Cardiovascular normal heart rate noted Gastrointestinal abdomen normal to inspection Genitourinary bladder normal to palpation Extremities normal to inspection Neurology GCS 15 Psychiatry orientation abnormal (disoriented to time) Skin skin color normal Conclusion/Plan Problem List (1) AMS (altered mental status): Plan: Her AMS improved somewhat with correction of her glucose but she is still disoriented to time which is not her baseline. She has had multiple presentations to the ER for altered mental status. I suspect she may have a developing dementia. CT head was performed and found to have no acute abnormality. I am bringing her in as observation for her delirium and if this does not resolve overnight then we will consider a more detailed workup including MRI. No lateralizing deficits, so stroke not likely. UA clear Qualifiers: Altered mental status type: delirium Qualified Code(s): R41.0 - Disorientation, unspecified (2) Hypertension: Plan: Continue home dose amlodipine 5 mg p.o. daily and carvedilol 6.25 mg p.o. twice daily (3) Hypoglycemia: Plan: This is improved, and patient has eaten solid food since her lowest glucose. BMP in a.m. Plan Placed in observation Full code Her is her surrogate decision-maker Lab Results Lab results reviewed: Yes 01/08/25 13:27 01/08/25 13:27 Diagnostic Imaging Results Diagnostic Imaging Results: positive Final report reviewed Diagnostic Imaging Results Comments: CT head Core Measures Anticipated LOS I expect patient to be DC'd or transferred within 96 hours.: Yes DVT/VTE - Prophylaxis VTE/DVT Device ordered at admit?: Yes
[2025-01-08] MEDS ORDERED: ONDANSETRON ODT 4 MG TABLET TL PRN (21:59)
[2025-01-08] MEDS ORDERED: ONDANSETRON 4 MG/2 ML VIAL IVP PRN (21:59)
[2025-01-08] MEDS ORDERED: ACETAMINOPHEN 325 MG TABLET PO PRN (21:59)
[2025-01-08] MEDS ORDERED: SODIUM CHLORIDE FLUSH 0.9% 10 ML SYRINGE IVP PRN (21:59)
[2025-01-08] MEDS: carvediloL 3.125 MG TABLET PO SCH (22:45)
[2025-01-08] MEDS: SODIUM CHLORIDE 1 GM TABLET PO SCH (22:45)
[2025-01-09] MEDS: SODIUM CHLORIDE FLUSH 0.9% 10 ML SYRINGE IVP SCH (01:07)
[2025-01-09 05:45] LABS: BASOPHILS % (AUTO) 0.3 %; EOSINOPHILS # (AUTO) 0.1 10^3/uL (0.0-0.7); EOSINOPHILS % (AUTO) 1.5 %; HCT - HEMATOCRIT 36.9 % (37.0-47.0); HGB - HEMOGLOBIN 13.3 g/dL (12.0-16.0); LYMPHOCYTES # (AUTO) 0.6 10^3/uL (1.5-3.5); LYMPHOCYTES % (AUTO) 9.8 %; MEAN CORPUSCULAR HEMOGLOBIN 30.9 pg (27.0-31.0); MEAN CORPUSCULAR VOLUME 85.8 fL (81.0-99.0); MEAN PLATELET VOLUME 10.9 fL (7.9-10.8); MONOCYTES # (AUTO) 0.3 10^3/uL (0.0-1.0); NEUTROPHILS % (AUTO) 83.2 %; PLT - PLATELET COUNT 88 10^3/uL (130-450)
[2025-01-09 05:55] LABS: CALCIUM 9.3 mg/dL (8.5-10.3); CREATININE 0.7 mg/dL (0.6-1.3); POTASSIUM 4.4 mmol/L (3.5-4.5)
[2025-01-09] MEDS: LEVOTHYROXINE 25 MCG TABLET PO SCH (06:42)
[2025-01-09 07:54] VITALS: O2SAT 95
[2025-01-09] MEDS ORDERED: SODIUM ZIRCONIUM CYCLOSILICATE PO SCH (09:00)
[2025-01-09] MEDS ORDERED: ENOXAPARIN 40 MG/0.4 ML SYRINGE SUBQ SCH (09:00)
[2025-01-09] MEDS ORDERED: CHOLECALCIFEROL PO SCH (09:00)
[2025-01-09] MEDS ORDERED: [UNRECOGNIZED DRUG - OTHER] PO SCH (09:00)
[2025-01-09] MEDS: THIAMINE 100 MG TABLET PO SCH (09:05)
[2025-01-09] MEDS: amLODIPine 5 MG TABLET PO SCH (09:05)
[2025-01-09] MEDS: MAGNESIUM OXIDE 400 MG TABLET PO SCH (09:05)
[2025-01-09] MEDS: CHOLECALCIFEROL 25 MCG TABLET PO SCH (09:06)
[2025-01-09] MEDS: CITALOPRAM 10 MG TABLET PO SCH (09:06)
[2025-01-09] MEDS: SODIUM ZIRCONIUM CYCLOSILICATE 5 GM PACKET PO SCH (09:06)
--- NOTE | 2025-01-09 12:23 | Discharge Summary ---
"Discharge Summary Admit Date: 01/08/25 Discharge Date: 01/09/25 Discharging Provider: Dr. Mirella Little Primary Care Provider: Unclear of name - but seeing her tomorrow Code Status: Attempt Resuscitation Discharge Facility Name: Home with Home [facility] DIAGNOSES Admission Diagnoses: Altered mental status Hypertension Hypoglycemia Discharge Diagnoses with Status of Each Condition: Acute metabolic encephalopathylikely due to hypoglycemia. Resolved. Patient eating on her own. Dietitian put on continuous glucose monitor for patient as well. Hypoglycemiaresolved, as outlined above. Hypertensioncontinue home Coreg and amlodipine. HPI History of Present Illness: Per Beto Price, PERSONNEL COORDINATOR: 64-year-old female PMH significant for hypertension, hyperlipidemia, Crohn's, alcohol abuse, multiple ER presentations for confusion came in with increased confusion today. Has been reports that he helped her get into the bath but then she was so confused that he had to pick her up and get her back out to bring her into the ER. She has been admitted before for multiple electrolyte abnormalities and confusion. She has been to the ER for confusion 6 times within the past 2 months. In the ER, CT head was performed which was negative. Her sodium was 131. Creatinine at baseline. UA clear. She was noted to have a sugar of 69, which was repleted. She had some improvement in her mentation after this, but was still not at her baseline. Hospitalist was contacted for Observation for delirium CONSULTS | PROCEDURES Consultations: Nutrition Procedures: Head CT HOSPITAL COURSE Hospital Course: Patient is a 64-year-old female with a history of Crohn's, former alcohol use who presents with altered mentation. She was found to be hypoglycemic. She received some glucose. She is encouraged to eat. This morning, she ate her whole breakfast herself. Dietitian also saw the patient, and was able to put the continuous glucose monitor on her. Her glucose levels have been stable. Patient and has been spoken with at length about next steps including following up with the primary care provider as well as a neurologist for further neurocognitive testing. Overall, patient is back at her baseline, and is deemed stable for discharge home. ALLERGIES Allergies Allergy/AdvReac Type Severity Reaction Status Date / Time Penicillins Allergy Anaphylaxis Verified 01/04/25 18:12 vancomycin Allergy Rash Verified 01/04/25 18:12 methocarbamol AdvReac Dizziness Verified 01/04/25 18:12 MEDICATIONS Ambulatory Orders Medication Instructions Recorded Confirmed amlodipine 5 mg tablet 5 mg PO DAILY 06/24/24 01/08/25 naproxen sodium 220 mg tablet 220 mg PO Q8H PRN pain 10/20/24 01/08/25 (Aleve) sodium zirconium cyclosilicate 10 10 g PO DAILY #30 ea 10/27/24 01/08/25 gram oral powder packet (Lokelma) carvedilol 6.25 mg tablet 3.125 mg PO BID 01/08/25 01/09/25 cholecalciferol (vitamin D3) 25 25 mcg PO DAILY 01/08/25 01/08/25 mcg (1,000 unit) capsule (Vitamin D3) levothyroxine 25 mcg tablet 25 mcg PO DAILY 01/08/25 01/08/25 thiamine mononitrate (vit B1) 100 100 mg PO DAILY 01/08/25 01/08/25 mg tablet sodium chloride 1,000 mg soluble 1,000 mg PO BID 01/09/25 01/09/25 tablet PHYSICAL EXAM AT DISCHARGE General Appearance: positive No acute distress and Alert; negative Anxious Eyes Bilateral: positive Normal inspection, PERRL and EOMI ENT: positive ENT inspection nml, Pharynx nml and No signs of dehydration Neck: positive Nml inspection, Thyroid nml and No JVD Respiratory: positive Chest non-tender, No respiratory distress and Breath sounds nml; negative Wheezes, Rales or Rhonchi Cardiovascular: positive Regular rate & rhythm, No murmur and No gallop Peripheral Pulses: positive 2+ Abdomen: positive Non-tender, No distention and Other (ostomy bag in place); negative Rebound, Hepatomegaly or Splenomegaly Back: positive Nml inspection; negative CVA tenderness (R) or CVA tenderness (L) Skin: positive Color nml, No rash, Warm and Dry Extremities: positive Non-tender, Full ROM and Nml appearance Neurologic/Psychiatric: positive Oriented x3, Motor nml and Mood/affect nml LABS 01/09/25 05:09 01/09/25 05:09 DIAGNOSTIC IMAGING Diagnostic Imaging Results: Final report reviewed FOLLOW UP Follow Up: Follow up with PCP on discharge. TIME SPENT Time Spent in Discharge (Minutes): 35 Discharge Plan Discharge Patient Disposition: 06 Home Health Service Condition: Stable Prescriptions: Continued amlodipine 5 MG tablet 5 mg PO DAILY Patient Comments: take 1 tablet by mouth once daily naproxen sodium [Aleve] 220 mg tablet 220 mg PO Q8H PRN (Reason: pain) Lokelma 10 gram powder in packet 10 g PO DAILY Qty: 30 2RF thiamine mononitrate (vit B1) 100 mg tablet 100 mg PO DAILY cholecalciferol (vitamin D3) [Vitamin D3] 25 mcg (1,000 unit) capsule 25 mcg PO DAILY carvedilol 6.25 mg tablet 3.125 mg PO BID Patient Comments: unsure on dose Rx Instructions: must administer with a meal/food levothyroxine 25 mcg tablet 25 mcg PO DAILY Patient Comments: take 1 tablet by mouth every morning ON AN EMPTY STOMACH *WAIT 1 ... (REFER TO PRESCRIPTION NOTES). sodium chloride 1,000 mg Tablet,Soluble 1,000 mg PO BID Diet: Regular Interventions: Discharge Last Done: 01/09/25 13:22 Discharge Checklist - Nursing Last Done: 01/09/25 13:25 Health Concerns: You came in because you are confused. You are found to have a low sodium of 131, which is resolved to 136 this morning. He also had a high potassium of 4.6, which is now 4.4 today. These are all within normal limits. Finally, your sugars were on the lower side. Our dietitian helped set up your continuous glucose monitor, which should alert you when your sugars are lower. At that time, please eat something or drink some juice. I am glad you have a primary care provider appointment tomorrow so you can follow-up very closely with the physician. Thank you for allowing us to take care of you, we are glad you are feeling better. Print Language: Kyrgyz Patient Instructions: Hypoglycemia Stand Alone Forms: PCP List Follow-up Care: GORDY NORRIS ARNP [Primary Care Provider] -"
--- NOTE | 2025-01-09 12:29 | PHARMACY PROGRESS NOTE ---
Best Possible Medication History Admit Date and Time: 01/08/252056 Home Medications Medication Instructions Recorded Confirmed Type amlodipine 5 mg tablet 5 mg PO DAILY 06/24/24 01/08/25 History naproxen sodium 220 mg tablet 220 mg PO Q8H PRN pain 10/20/24 01/08/25 History (Aleve) sodium zirconium cyclosilicate 10 10 g PO DAILY #30 ea 10/27/24 01/08/25 Rx gram oral powder packet (Lokelma) carvedilol 6.25 mg tablet 3.125 mg PO BID 01/08/25 01/09/25 History cholecalciferol (vitamin D3) 25 25 mcg PO DAILY 01/08/25 01/08/25 History mcg (1,000 unit) capsule (Vitamin D3) levothyroxine 25 mcg tablet 25 mcg PO DAILY 01/08/25 01/08/25 History thiamine mononitrate (vit B1) 100 100 mg PO DAILY 01/08/25 01/08/25 History mg tablet sodium chloride 1,000 mg soluble 1,000 mg PO BID 01/09/25 01/09/25 History tablet Processed by: Pharmacy Medications reviewed in ED?: No Medication History completed: Yes Patient Interview: Pt unable to participate Secondary Source(s): Spouse/Significant other, Pharmacy records and Insurance records [facility] Statement: As the person ultimately responsible for medication therapy, providers are able to order a medication from an existing home medication list in [facility] via the "Reconcile Routine" prior to Confirmation of that medication by print support specialist. Such practice is discouraged except when the physician, in their clinical judgment, deems that a medical need exists for a medication without regard to previous use.
[2025-01-09 12:43] VITALS: BP 124/72; TEMP 97.3
== END 2025-01-09 13:28 | disposition home health service (06) ==
LOC: ED 12:58 → MS2 12:58
PROVIDERS: ADMIT Nurse Practitioner Acute Care; ATTEND Nurse Practitioner Acute Care
DX: K50.90 Crohn's disease, unspecified, without complications; E87.1 Hypo-osmolality and hyponatremia; I10 Essential (primary) hypertension; F03.90 Unspecified dementia, unspecified severity, without behavioral disturbance, psychotic disturbance, mood disturbance, and anxiety; F10.11 Alcohol abuse, in remission; E16.2 Hypoglycemia, unspecified; E78.5 Hyperlipidemia, unspecified; G93.41 Metabolic encephalopathy

== ENCOUNTER 2025-01-20 14:57 | Inpatient (IN) ==
--- NOTE | 2025-01-20 15:07 | ED Physician Documentation ---
History of Present Illness Stated complaint Stated Complaint: GENERAL WEAKNESS Chief complaint Chief Complaint: Neuro History obtained from History obtained from: Patient and EMS Additonal information Additional information: This is a 65-year-old woman with history of ulcerative colitis on Humira with an ostomy in place. She has a history of alcoholism in remission, MSSA bacteremia, deconditioning, low sodium, and recurrent delirium with frequent hospital admissions for same. She reportedly went to the [place] [facility] today for abdominal pain and was noted to be altered so was referred here for further allie luation and treatment. For EMS her blood sugar was in the 1 teens, but she did have some significant episodes of bradycardia prehospital with heart rates down into the low 30s in A-fib. On arrival she is confused and unable to significantly participate in history. Her blood pressures were good prehospital without hypotension. With regard to the bradycardia, she is on carvedilol does have a history of hypothyroidism. She did vomit prior to arrival. [place] Coma Scale Assess Eye opening: Spontaneous Verbal response: Confused Motor response: Obeys Commands Total score: 14 Meds/Allgy Home Medications Ambulatory Orders Medication Instructions Recorded Confirmed amlodipine 5 mg tablet 5 mg PO DAILY 06/24/24 01/08/25 naproxen sodium 220 mg tablet 220 mg PO Q8H PRN pain 10/20/24 01/08/25 (Aleve) sodium zirconium cyclosilicate 10 10 g PO DAILY #30 ea 10/27/24 01/08/25 gram oral powder packet (Lokelma) carvedilol 6.25 mg tablet 3.125 mg PO BID 01/08/25 01/09/25 cholecalciferol (vitamin D3) 25 25 mcg PO DAILY 01/08/25 01/08/25 mcg (1,000 unit) capsule (Vitamin D3) levothyroxine 25 mcg tablet 25 mcg PO DAILY 01/08/25 01/08/25 thiamine mononitrate (vit B1) 100 100 mg PO DAILY 01/08/25 01/08/25 mg tablet sodium chloride 1,000 mg soluble 1,000 mg PO BID 01/09/25 01/09/25 tablet Allergies Allergies Allergy/AdvReac Type Severity Reaction Status Date / Time Penicillins Allergy Anaphylaxis Verified 01/20/25 15:17 vancomycin Allergy Rash Verified 01/20/25 15:17 methocarbamol AdvReac Dizziness Verified 01/20/25 15:17 PFSH Active Problems All Active Problems (Updated 01/20/25 @ 18:02 by Donn Huerta MD) Shock (Acute) Acute delirium (Acute) Acute hyperkalemia (Acute) Hypertension (Acute) Hyperkalemia (Acute) Crohn disease (Acute) Malabsorption (Acute) Witnessed seizure-like activity (Acute) Chronic hyponatremia (Acute) Dehydration (Acute) Chronic hyperkalemia (Acute) Depression (Acute) Hyperkalemia (Acute) Hypokalemia (Acute) Weakness (Acute) Alcohol use (Acute) Thrombocytopenia (Acute) UTI (urinary tract infection) (Acute) Acute conjunctivitis (Acute) Medical History Medical History (Updated 01/20/25 @ 18:02 by Donn Huerta MD) Hypoglycemia Ulcerative colitis, chronic Encephalopathy acute Surgical History Surgical History History of colostomy Social History Social History (Updated 01/08/25 @ 13:19 by Hao Bourne, RN) Smoking Status: Unknown if ever smoked Second hand tobacco smoke exposure: No Do you dip or chew tobacco?: No Do you vape?: No Patient requests smoking cessation consult: No Initiate information on smoking cessation: No Living arrangement: At home Living Condition: With spouse/s.o. Relationship: Level: Dependent Home Mobility Equipment: Walker Do you feel safe in your home environment?: Yes Suffered physical, verbal, emotional, or financial abuse?: No History of Abuse: No ETOH Use: Other Frequency: Occasional Substance Use: denies use Are you sexually active?: No POLST Patient has POLST: No POLST Status: Full Code Exam Constitutional She appears ill, altered. She can say her name but is otherwise disoriented. She has vomit on her chin. Respiratory breath sounds equal bilaterally, normal respiratory effort and clear to auscultation bilaterally Cardiovascular normal heart rate noted and regular rhythm noted Modest bradycardia but now in sinus rhythm on the monitor with rates of about 50, no murmur. Gastrointestinal Ostomy right side with normal appearing liquid stool in it. Does not seem to be tender. Neurology GCS calculation - Eye opening: Spontaneous Verbal response: Confused Motor response: Obeys Commands [place] Coma Scale total score: 14 Results Vitals Vitals: Vital Signs - 24 hr 01/20/25 15:17 01/20/25 15:21 01/20/25 15:37 Temperature 34.4 C L Temperature Source Axillary Pulse Rate 53 L 71 42 L Respiratory Rate 16 13 18 Blood Pressure 142/40 H 68/41 L 90/27 L O2 Saturation 95 97 97 O2 Source Room air Room air Room air Pain Intensity 3 01/20/25 16:05 01/20/25 16:30 01/20/25 16:45 Temperature Temperature Source Pulse Rate 46 L 73 75 Respiratory Rate 14 12 12 Blood Pressure 87/41 L 74/43 L 62/42 L O2 Saturation 96 95 96 O2 Source Room air Room air Room air Pain Intensity 7 0 01/20/25 17:00 01/20/25 17:15 01/20/25 17:30 Temperature Temperature Source Pulse Rate 71 73 76 Respiratory Rate 15 12 12 Blood Pressure 67/46 L 75/45 L 60/39 L O2 Saturation 98 96 96 O2 Source Room air Room air Room air Pain Intensity 0 0 0 Oxygen O2 Source Room air EKG (time done) 1533: EKG releavant findings:: EKG personally interpreted by author of this note. Relevant findings are: Sinus bradycardia with a rate of [address] elevation or depression. Labs Labs: Laboratory Tests 01/20/25 15:17 WBC 4.8 RBC 3.32 L Hgb 9.9 L Hct 29.5 L MCV 88.9 MCH 29.8 MCHC 33.6 RDW 14.6 Plt Count 82 L MPV 10.6 Neut # (Auto) Not Reportable Lymph # (Auto) Not Reportable Wilkinson # (Auto) Not Reportable Eos # (Auto) Not Reportable Baso # (Auto) Not Reportable Absolute Nucleated RBC Not Reportable Total Counted 100 Band Neuts % (Manual) 14 H Reactive Lymphs % (Man) 1 Abnorm Lymph % (Manual) 2 Metamyelocytes % 11 H Nucleated RBC % Not Reportable Neutrophils # (Manual) 3.3 Lymphocytes # (Manual) 0.4 L Monocytes # (Manual) 0.4 Eosinophils # (Manual) 0.1 Basophils # (Manual) 0.0 Differential Comment MANUAL DIFFERENTIAL Manual Slide Review Indicated Platelet Estimate DECREASED (<130,000) Platelet Morphology NORMAL APPEARANCE RBC Morph Micro Appear 1+ HYPOCHROMASIA VBG pH 7.320 VBG pCO2 29.5 L VBG pO2 44.8 VBG HCO3 15.4 L VBG Total CO2 16.3 L VBG O2 Saturation 77.0 VBG Base Excess -10.9 L Sodium 134 L Potassium 5.2 H Chloride 110 Carbon Dioxide 18 L Anion Gap 6.0 BUN 29 H Creatinine 0.9 Estimated GFR (MDRD) 63 L Glucose 100 Calcium 9.3 Magnesium 1.6 L Total Bilirubin 0.5 AST 39 ALT 60 Alkaline Phosphatase 125 H Total Protein 5.2 L Albumin 2.6 L Globulin 2.6 Albumin/Globulin Ratio 1.0 Lipase 30 TSH 7.08 H Free T4 Direct 0.82 Free T3 pg/mL 2.43 L Ethyl Alcohol < 10.0 Procedures Central Line - Major Central Line Preparation: Unable to obtain consent (She is delirious, I tried to call the with no answer immediately.), Time out completed, Ultrasound used and Sterile prep and drape Central line location: Right IJ Central line type: Triple lumen Central line aftercare: Chlorhexidine disc placed, Secured, Placement confirmed, No pneumothorax, No complications, Bundle checklist complete and Pt tolerated well PD Medical Decision Making ED course ED course: This is a 65-year-old medically complex woman who comes in with delirium. Seems to be kind of a recurrent process with unclear etiology. She is admitted several times a year for similar. She is hypothermic and during the course of her ED stay she became progressively hypotensive down to the 60/30 range despite crystalloid resuscitation. Workup demonstrates anemia on CBC but she has been in similar range in the past, venous blood gas was unremarkable. Chemistry panel notable for acidosis, low sodium, high potassium, none of which were alarming. CT of the head was negative. CT of the abdomen showed no acute findings. Given the progressive hypotension a central line was placed and she is started on Levophed with a septic workup and presumptive cefepime and vancomycin even though I do not have a particular source Or particular signs of sepsis per se. Spoke with KENNY Terrazas for admission to the ICU at 5:57 PM. I have ordered cefepime and vancomycin, she had a listed allergy to vancomycin which I discussed with the pharmacist and it just had a rash. At that point I felt it was probably safe to give vancomycin, that said I discussed it with the as the reaction was actually severe drug-induced thrombocytopenia. As such switched her to linezolid Critical Care Critical Care Provided: Yes Time(min): 45 Time Includes: Direct patient care, Review records, Reassess patient, Document care and Family consult for tx dec Data interpretation: Labs and Pulse ox Procedures included in critical care time: Peripheral IV Procedures excluded from critical care time: Central IV Discharge Plan Discharge Patient Disposition: 66 [facility] DC/Xfer Condition: Critical Clinical Impression: Acute delirium, Shock Prescriptions: No Action amlodipine 5 MG tablet 5 mg PO DAILY Patient Comments: take 1 tablet by mouth once daily naproxen sodium [Aleve] 220 mg tablet 220 mg PO Q8H PRN (Reason: pain) Lokelma 10 gram powder in packet 10 g PO DAILY Qty: 30 2RF thiamine mononitrate (vit B1) 100 mg tablet 100 mg PO DAILY cholecalciferol (vitamin D3) [Vitamin D3] 25 mcg (1,000 unit) capsule 25 mcg PO DAILY carvedilol 6.25 mg tablet 3.125 mg PO BID Patient Comments: unsure on dose Rx Instructions: must administer with a meal/food levothyroxine 25 mcg tablet 25 mcg PO DAILY Patient Comments: take 1 tablet by mouth every morning ON AN EMPTY STOMACH *WAIT 1 ... (REFER TO PRESCRIPTION NOTES). sodium chloride 1,000 mg Tablet,Soluble 1,000 mg PO BID Print Language: Lao
[2025-01-20] MEDS: SODIUM CHLORIDE 0.9% 1,000 ML IV STA ×2 (15:22→16:47)
[2025-01-20 15:27] LABS: VBG BASE EXCESS -10.9 mmol/L (-2 - +2); VBG PCO2 29.5 mmHg (41-51); VBG PO2 44.8 mmHg (25-47); VBG TOTAL CO2 16.3 mmol/L (24-29)
[2025-01-20 15:30] LABS: BASOPHILS % (AUTO) 0.8 %; EOSINOPHILS % (AUTO) 0.8 %; HCT - HEMATOCRIT 29.5 % (37.0-47.0); HGB - HEMOGLOBIN 9.9 g/dL (12.0-16.0); LYMPHOCYTES % (AUTO) 1.7 %; MEAN CORPUSCULAR HEMOGLOBIN 29.8 pg (27.0-31.0); MEAN CORPUSCULAR HGB CONC 33.6 g/dL (32.0-36.0); MEAN CORPUSCULAR VOLUME 88.9 fL (81.0-99.0); MEAN PLATELET VOLUME 10.6 fL (7.9-10.8); MONOCYTES % (AUTO) 3.5 %; NEUTROPHILS % (AUTO) 92.2 %; PLT - PLATELET COUNT 82 10^3/uL (130-450); RED BLOOD COUNT 3.32 10^6/uL (4.20-5.40); RED CELL DISTRIBUTION WIDTH 14.6 % (12.0-15.0); WHITE BLOOD COUNT 4.8 x10^3/uL (4.8-10.8)
[2025-01-20 15:37] LABS: SLIDE REVIEW? Indicated
[2025-01-20] MEDS ORDERED: iohexoL-300 100 ML VIAL ONE (15:42)
[2025-01-20 15:54] LABS: ALBUMIN 2.6 g/dL (3.2-5.5); ALKALINE PHOSPHATASE 125 IU/L (42-121); ALT ALANINE AMINOTRANSFERASE 60 IU/L (10-60); AST ASPARTATE AMINOTRANSFERASE 39 IU/L (10-42); BILIRUBIN,TOTAL 0.5 mg/dL (0.2-1.0); BUN - BLOOD UREA NITROGEN 29 mg/dL (6-20); CALCIUM 9.3 mg/dL (8.5-10.3); CARBON DIOXIDE - CO2 18 mmol/L (21-32); CHLORIDE 110 mmol/L (101-111); CREATININE 0.9 mg/dL (0.6-1.3); ETOH - ETHANOL < 10.0 mg/dL; GFR - MDRD 63 (>89); GLUCOSE 100 mg/dL (74-104); LIPASE 30 U/L (11-82); MAGNESIUM 1.6 mg/dL (1.7-2.3); POTASSIUM 5.2 mmol/L (3.5-4.5); SODIUM 134 mmol/L (135-145); THYROID STIMULATING HORMONE 7.08 uIU/mL (0.34-5.60); TOTAL PROTEIN 5.2 g/dL (6.4-8.9)
[2025-01-20 16:14] LABS: ABNORMAL LYMPHS % (MANUAL) 2 %; BAND NEUTROPHILS % (MANUAL) 14 %; BASOPHILS % (MANUAL) 1 %; EOSINOPHILS # (MANUAL) 0.1 10^3/uL (0-0.7); LYMPHOCYTES # (MANUAL) 0.4 10^3/uL (1.5-3.5); LYMPHOCYTES % (MANUAL) 5 %; METAMYELOCYTES % (MANUAL) 11 %; MONOCYTES # (MANUAL) 0.4 10^3/uL (0.0-1.0); NEUTROPHILS # (MANUAL) 3.3 10^3/uL (1.5-6.6); REACTIVE LYMPHS % (MANUAL) 1 %
[2025-01-20 16:17] LABS: DIFFERENTIAL COMMENT MANUAL DIFFERENTIAL; PLATELET ESTIMATE, MANUAL DECREASED (<130,000) (NORMAL); PLATELET MORPHOLOGY NORMAL APPEARANCE (NORMAL); RBC MORPHOLOGY (MULTIPLE) 1+ HYPOCHROMASIA (NORMAL)
[2025-01-20] MEDS: iohexoL-300 100 ML VIAL IVP ONE (16:26)
--- NOTE | 2025-01-20 16:37 | CT Report ---
PROCEDURE: CT Head WO INDICATIONS: ams TECHNIQUE: Noncontrast 4.5 mm thick angled axial sections acquired from the foramen magnum to the vertex. For r adiation dose reduction, the following was used: automated exposure control, adjustment of mA and/or kV according to patient size. COMPARISON: 01/08/2025 and 12/26/2024. FINDINGS: Image quality: Excellent. CSF spaces: Basal cisterns are patent. No extra-axial fluid collections. Ventricles are normal in size and shape. Brain: No midline shift. No intracranial masses or hemorrhage. Gilmore-white matter interface is norm al. Skull and face: Calvarium and visualized facial bones are intact, without suspicious lesions. Sinuses: Visualized sinuses and mastoids are clear. IMPRESSION: No acute intracranial pathology. If indicated, MRI of brain can be done for further evaluation. Reviewed by: John Brown MD on 01/20/2025 4:35 PM PDT Approved by: John Brown MD on 01/20/2025 4:35 PM PDT Station ID: [id number]
--- NOTE | 2025-01-20 17:11 | CT Report ---
PROCEDURE: CT Abdomen/Pelvis W INDICATIONS: IV only abd pain CONTRAST: 100 ML OMNI TECHNIQUE: After the administration of intravenous contrast, a CT scan of the abdomen and pelvis was performed. Images were recorded and evaluated at appropriate window settings. Reformats: coronal and sagittal. F or radiation dose reduction, the following was used: automated exposure control, adjustment of mA and /or kV according to patient size. COMPARISON: Renal ultrasound dated 10/20/2024. MRI lumbar spine dated 07/10/2024. CT of abdomen and p mona dated 08/23/2020. FINDINGS: Image quality: Diagnostic. Lower chest: Unremarkable. Liver: No solid mass. Gallbladder: No radiopaque stones or wall thickening. Biliary tree: No intrahepatic or extrahepatic dilation, accounting for age. Spleen: No splenomegaly. Pancreas: No pancreatic ductal dilation. Adrenals: No adrenal nodule. Kidneys and ureters: No hydronephrosis. No renal cystic lesion which requires follow up. No solid mas s. Stomach, bowel and peritoneum: Postsurgical changes are again seen with partial colectomy and right l ower quadrant ostomy unchanged from prior study. There is no bowel obstruction. No abnormal bowel wal l thickening or mesenteric fat stranding. No significant fecal burden. No abscess collection. No free fluid of free air. Lymph nodes: No central or retroperitoneal adenopathy. Vessels: No infrarenal aortic aneurysm. Patent portal vein. PELVIS Reproductive organs: Unremarkable. Bladder: No abnormal wall thickening. Pelvic lymph nodes: No pelvic adenopathy by size criteria. Bones: No aggressive osseous abnormality. Other: Right parastomal hernia is seen containing a segment of colon loop. No evidence of incarcerati on. No significant inguinal hernia. IMPRESSION: 1. No acute inflammatory process is seen in abdomen or pelvis. Postsurgical changes in right lower qu adrant. No evidence of bowel obstruction. No free fluid of free air. 2. No obstructing renal stones or hydronephrosis. 3. Right parastomal hernia containing a segment of colon lobe without evidence of incarceration. Reviewed by: John Brown MD on 01/20/2025 5:10 PM PDT Approved by: John Brown MD on 01/20/2025 5:10 PM PDT Station ID: [id number]
[2025-01-20] MEDS: NOREPINEPHRINE/0.9 % NS 8 MG/250 ML BAG IV SCH (18:18)
[2025-01-20] MEDS: CEFEPIME 2 GM VIAL IVP STA (18:24)
--- NOTE | 2025-01-20 18:28 | HISTORY & PHYSICAL EXAMINATION ---
Chief Complaint Chief Complaint Chief Complaint: AMS History of Present Illness Admitted From Admitted From:: Home History Obtained From Records Reviewed: past hospitalizations, including [place] chart. History obtained from: and record review. History of Present Illness HPI Comment/Other: 65-year-old female who presents to the emergency department with complaints of altered mental status. Apparently went in to see her primary care in [place] today and was told to come to the emergency department due to altered mental status. She has a history of ulcerative colitis and has an ostomy in place. Her noted for several days decreased ostomy output and abdominal swelling. She did have some episodes of nausea and vomiting but this is since resolved and she has had good ostomy output today. Recent admission to [facility] with transfer to [place] neuro ICU for delirium which resulted in seizure and intubation. I have been able to review the records and she was not discharged home on any antiseizure medication. Since that time she has had an admission with some hypoglycemia and it seems that she has frequent episodes of hypoglycemia at home. Her is trying to combat this with oral glucose which seems to work most of the time. Apparently, on the way to the hospital she had some episodes of bradycardia with heart rate into the low 30s with a rhythm of atrial fibrillation. Since she has been here she has had heart rates briefly into the high 40s but overall normal with some hypotension. Central line has been placed in the emergency department and as I am seeing her she is on Levophed. She has not had any hypoxia. Her denies any fever cold or cough at home. She is not having any pain or burning on urination according to her . She is unable to participate in history. For imaging she has had a chest x-ray which shows some mild pulmonary congestion but no focal infiltrate. A CT of her abdomen pelvis is essentially negative. Head CT also negative. Her urine does not show any signs of infection and her lactate is negative at 0.8. Meds/Allgy Home Medications Ambulatory Orders Medication Instructions Recorded Confirmed amlodipine 5 mg tablet 5 mg PO DAILY 06/24/24 01/08/25 naproxen sodium 220 mg tablet 220 mg PO Q8H PRN pain 10/20/24 01/08/25 (Aleve) sodium zirconium cyclosilicate 10 10 g PO DAILY #30 ea 10/27/24 01/08/25 gram oral powder packet (Lokelma) carvedilol 6.25 mg tablet 3.125 mg PO BID 01/08/25 01/09/25 cholecalciferol (vitamin D3) 25 25 mcg PO DAILY 01/08/25 01/08/25 mcg (1,000 unit) capsule (Vitamin D3) levothyroxine 25 mcg tablet 25 mcg PO DAILY 01/08/25 01/08/25 thiamine mononitrate (vit B1) 100 100 mg PO DAILY 01/08/25 01/08/25 mg tablet sodium chloride 1,000 mg soluble 1,000 mg PO BID 01/09/25 01/09/25 tablet Allergies Allergies Allergy/AdvReac Type Severity Reaction Status Date / Time Penicillins Allergy Anaphylaxis Verified 01/20/25 15:17 vancomycin Allergy Rash Verified 01/20/25 15:17 methocarbamol AdvReac Dizziness Verified 01/20/25 15:17 PFS Active Problems All Active Problems (Updated 01/20/25 @ 18:27 by KENNY Anderson) Hypoglycemia (Acute) Shock (Acute) Acute delirium (Acute) Acute hyperkalemia (Acute) Hypertension (Acute) Hyperkalemia (Acute) Crohn disease (Acute) Malabsorption (Acute) Witnessed seizure-like activity (Acute) Chronic hyponatremia (Acute) Dehydration (Acute) Chronic hyperkalemia (Acute) Depression (Acute) Hyperkalemia (Acute) Hypokalemia (Acute) Weakness (Acute) Alcohol use (Acute) Thrombocytopenia (Acute) UTI (urinary tract infection) (Acute) Acute conjunctivitis (Acute) Medical History Medical History (Updated 01/20/25 @ 18:27 by KENNY Anderson) Ulcerative colitis, chronic Encephalopathy acute Surgical History Surgical History History of colostomy Social History Social History (Updated 01/08/25 @ 13:19 by Hao Bourne RN) Smoking Status: Never smoker Second hand tobacco smoke exposure: No Do you dip or chew tobacco?: No Do you vape?: No Patient requests smoking cessation consult: No Initiate information on smoking cessation: No Living arrangement: At home Living Condition: With spouse/s.o. Relationship: Spouse Level: Independent Home Mobility Equipment: Wheeled walker Do you feel safe in your home environment?: Yes Suffered physical, verbal, emotional, or financial abuse?: No History of Abuse: No ETOH Use: Other Frequency: Occasional Substance Use: denies use Substance Use Details: Pt. used to be alcoholic but quit drinking 2 yrs. ago Are you sexually active?: No POLST Patient has POLST: No POLST Status: Full Code Review of Systems Status of ROS: unobtainable due to medical condition Prior Level of Functionality: Chronically ill, dependent on her for all care. Exam Constitutional appears chronically ill. Does not respond to me. Does mumble, her eyes are open HENMT normocephalic and head/scalp atraumatic mucous membranes dry Eyes conjunctivae normal, no scleral icterus and periorbital findings normal Neck/C-Spine visual inspection normal, trachea midline and cervical spine nontender Lymph no lymphadenopathy noted Chest inspection of chest normal Respiratory breath sounds equal bilaterally, normal respiratory effort, clear to auscultation bilaterally, no wheezes and no rales Cardiovascular normal heart rate noted and no murmur Gastrointestinal stoma at RUQ w large amount of stool in the bag. tenderness on the left side of the abdomen. multiple surgical scars. Genitourinary rivera placed while I was at bedside. intertriginous rash, but otherwise urine is clear and dilute Extremities right knee with bruising and abrasion. no joint effusion and non tender to palpation(no grimace). Neurology moves all extremities equally. eyes are open, unintelligible speech, does not follow commands, but localizes pain. Psychiatry unable to examine. not oriented. Skin skin color normal Sepsis Event Note (H) Evaluation Current Stage of Sepsis: Septic shock Possible source of Sepsis: positive Unknown Sepsis Criteria Sepsis Criteria: Recorded Temperature greater than 38.3C or Less than 36C, VICE PRESIDENT AND [employer]GER: altered consciousness (unrelated to primary neuro pathology) and MAP less than 65 mmHg Conclusion/Plan Problem List (1) Shock: Plan: Patient with hypothermia, admission temperature 33.4 C, hypoglycemic in the outpatient environment, and hypotensive with altered mental status. Infectious workup today is negative with blood cultures pending no elevated white blood cell count no evidence of urinary tract infection no evidence of pneumonia on chest x-ray. EKG today shows sinus bradycardia with a rate of 42. Last echocardiogram did done 3 months ago shows normal ventricular size and function normal valve structure and function and normal pulmonary pressures.I have requested troponin measurement. However with no EKG abnormalities aside from bradycardia I doubt this is cardiogenic shock. I believe this is likely septic shockBlood cultures are pending. She is being treated with empiric abx. allergy to vancomycin, therefore will receive Zyvox and cefepime. Discussed with Dr. Green in the emergency department decision was made to admit this patient to inpatient status for further workup of her delirium and shock and supportive treatment in the ICU with vasopressors fluids and electrolyte monitoring. (2) Acute delirium: Plan: Probably due to shock of unknown cause. Patient has recent history of seizure for which she was intubated and transferred to [facility] she was not discharged home on any antiepileptic medications. Her reports no recurrent seizures although he does report periods of delirium that has been increasing at home. She has a history of hypoglycemia. I am infusing dextrose containing fluids overnight. She is unable to take any p.o. at this time due to her mental status. I will request MRI of the brain in the morning. (3) Acute hyperkalemia: Plan: Potassium is 5.2 on admission. She received Lokelma 10 mg a day at home. I have ordered Lokelma this evening in the event that she can wake up and swallow. We will check potassium again this evening and if it continues to rise will treat with hyperkalemia protocol using insulin D50 and albuterol. (4) Crohn disease: Plan: Long history of Crohn's disease. This is causing her malabsorption issues with her hyperkalemia. Her stoma appears functional. Plan I have spent 90 minutes in the care of this patient today. This includes time [id number], review and ordering of diagnostic imaging and laboratory studies and consultation with other providers. Monitoring the patient's signs symptoms, evaluation of medication effectiveness and patient's response to treatment. Lab Results Lab results reviewed: Yes 01/20/25 15:17 01/20/25 15:17 Diagnostic Imaging Results Diagnostic Imaging Results: positive Final report reviewed EKG Results EKG Interpreted Independently: Yes Core Measures Anticipated LOS I expect patient to be DC'd or transferred within 96 hours.: Yes Issues Hospital Issues and Management Plan: sepsis of unknown origin and AMS. Supportive care, further dx and treatment. DVT/VTE - Prophylaxis VTE/DVT Device ordered at admit?: Yes VTE/DVT Prophylaxis med ordered at admit?: No Not Ordered - Medical Reason: Contraindicated (platelets 82k)
[2025-01-20] MEDS: VANCOMYCIN INJ 0.75 GM in SODIUM CHLORIDE 0.9% 250 ML IV STA (18:30)
--- NOTE | 2025-01-20 18:34 | XRAY Report ---
PROCEDURE: XR Chest for Line Placement INDICATIONS: rij cvc TECHNIQUE: One view of the chest was acquired. COMPARISON: 12/26/2024. FINDINGS: Surgical changes and devices: Postsurgical changes are seen in cervical spine. Right-sided internal jugular central venous catheter tip is in SVC.. Lungs and pleura: No pleural effusions or pneumothorax. Emphysematous changes are noted in bilateral lung wright. Increased interstitial lung markings are again seen. No definite focal infiltrate. Pulm onary vascular congestion. Mediastinum: Mediastinal contours appear normal. Heart size is enlarged. Bones and chest wall: No suspicious bony lesions. Overlying soft tissues appear unremarkable. IMPRESSION: Right internal jugular central venous catheter tip is in SVC. Mild pulmonary vascular con gestion and suggestion of mild pulmonary edema. No definite focal infiltrate. No gross pneumothorax. No significant pleural effusion. Reviewed by: John Brown MD on 01/20/2025 6:33 PM PDT Approved by: John Brown MD on 01/20/2025 6:33 PM PDT Station ID: [id number]
[2025-01-20 18:50] LABS: BILIRUBIN,URINE NEGATIVE (NEGATIVE); GLUCOSE, URINE (UA) NEGATIVE (NEGATIVE); KETONES,URINE (UA) NEGATIVE (NEGATIVE); LEUKOCYTE ESTERASE, URINE NEGATIVE (NEGATIVE); NITRITE,URINE NEGATIVE (NEGATIVE); OCCULT BLOOD,URINE NEGATIVE (NEGATIVE); PH,URINE 5.5 PH (5.0-7.5); PROTEIN,URINE TRACE mg/dL (NEGATIVE); UROBILINOGEN,URINE 0.2 (NORMAL) E.U./dL (NORMAL)
[2025-01-20] MEDS ORDERED: LINEZOLID 600 MG/300 ML 600 MG/300 ML BAG IV SCH (19:00)
[2025-01-20 19:03] LABS: CLARITY,URINE CLEAR (CLEAR)
[2025-01-20] MEDS: SODIUM ZIRCONIUM CYCLOSILICATE 5 GM PACKET PO SCH (19:23)
[2025-01-20] MEDS: DEXTROSE 5%-0.9% NACL 1,000 ML IV SCH (19:23)
[2025-01-20] MEDS: LINEZOLID 600 MG/300 ML 600 MG/300 ML BAG IV SCH (19:26)
[2025-01-20] MEDS: ACETAMINOPHEN 325 MG TABLET PO PRN (19:53)
[2025-01-20] MEDS: SODIUM CHLORIDE FLUSH 0.9% 10 ML SYRINGE IVP PRN (21:07)
[2025-01-20 21:38] LABS: TROPONIN I HIGH SENSITIVITY 11.5 ng/L (2.3-14.8)
[2025-01-20 21:49] LABS: CALCIUM 8.6 mg/dL (8.5-10.3); CREATININE 0.8 mg/dL (0.6-1.3); POTASSIUM 5.4 mmol/L (3.5-4.5)
[2025-01-20] MEDS: INSULIN REGULAR, HUMAN 300 UNIT/3 ML PEN IVP ONE (22:24)
[2025-01-20] MEDS: DEXTROSE 50% ABBOJECT 25 GM/50 ML SYRINGE IVP ONE (22:25)
[2025-01-20] MEDS: CONCENTRATED ALBUTEROL NEB 2.5 MG/0.5 ML INH STA (22:36)
[2025-01-21] MEDS: SODIUM CHLORIDE FLUSH 0.9% 10 ML SYRINGE IVP SCH (01:08)
[2025-01-21] MEDS: CEFEPIME 1 GM in SODIUM CHLORIDE 0.9% MINIBAG 100 ML IV SCH (02:03)
[2025-01-21 04:45] LABS: BASOPHILS % (AUTO) 1.1 %; EOSINOPHILS % (AUTO) 0.9 %; HCT - HEMATOCRIT 27.1 % (37.0-47.0); HGB - HEMOGLOBIN 9.1 g/dL (12.0-16.0); LYMPHOCYTES % (AUTO) 2.4 %; MEAN CORPUSCULAR HEMOGLOBIN 29.5 pg (27.0-31.0); MEAN CORPUSCULAR HGB CONC 33.6 g/dL (32.0-36.0); MEAN PLATELET VOLUME 10.4 fL (7.9-10.8); MONOCYTES % (AUTO) 4.2 %; NEUTROPHILS % (AUTO) 90.7 %; PLT - PLATELET COUNT 130 10^3/uL (130-450); RED BLOOD COUNT 3.08 10^6/uL (4.20-5.40); RED CELL DISTRIBUTION WIDTH 14.7 % (12.0-15.0); WHITE BLOOD COUNT 7.6 x10^3/uL (4.8-10.8)
[2025-01-21 04:57] LABS: ABNORMAL LYMPHS % (MANUAL) 0 %
[2025-01-21 04:59] LABS: CALCIUM 8.5 mg/dL (8.5-10.3); CREATININE 0.9 mg/dL (0.6-1.3); MAGNESIUM 1.5 mg/dL (1.7-2.3); POTASSIUM 4.9 mmol/L (3.5-4.5)
[2025-01-21 06:24] LABS: BAND NEUTROPHILS % (MANUAL) 58 %; DIFFERENTIAL COMMENT MANUAL DIFFERENTIAL; LYMPHOCYTES # (MANUAL) 0.2 10^3/uL (1.5-3.5); LYMPHOCYTES % (MANUAL) 2 %; MONOCYTES # (MANUAL) 0.3 10^3/uL (0.0-1.0); NEUTROPHILS # (MANUAL) 7.1 10^3/uL (1.5-6.6); PLATELET ESTIMATE, MANUAL NORMAL (130-450,000) (NORMAL); PLATELET MORPHOLOGY NORMAL APPEARANCE (NORMAL); RBC MORPHOLOGY (MULTIPLE) NORMAL APPEARANCE (NORMAL)
[2025-01-21] MEDS: SODIUM CHLORIDE 0.9% 1,000 ML IV ONE (08:56)
--- NOTE | 2025-01-21 12:15 | PHARMACY PROGRESS NOTE ---
Best Possible Medication History Admit Date and Time: 01/20/25 1840 Home Medications Medication Instructions Recorded Confirmed Type amlodipine 5 mg tablet 5 mg PO DAILY 06/24/24 01/21/25 History sodium zirconium cyclosilicate 10 10 g PO DAILY #30 ea 10/27/24 01/21/25 Rx gram oral powder packet (Lokelma) carvedilol 6.25 mg tablet 3.125 mg PO BID 01/08/25 01/21/25 History cholecalciferol (vitamin D3) 25 25 mcg PO DAILY 01/08/25 01/21/25 History mcg (1,000 unit) capsule (Vitamin D3) levothyroxine 25 mcg tablet 25 mcg PO DAILY 01/08/25 01/21/25 History thiamine mononitrate (vit B1) 100 100 mg PO DAILY 01/08/25 01/21/25 History mg tablet sodium chloride 1,000 mg soluble 1,000 mg PO BID 01/09/25 01/21/25 History tablet Processed by: Pharmacy Medications reviewed in ED?: No Medication History completed: Yes Patient Interview: Pt unable to participate Secondary Source(s): Written medication list, Other family member and Insurance records [facility] Statement: Pharmacist interview with at bedside, reviewed medication list, provided home med list, reviewed [employer] records. As the person ultimately responsible for medication therapy, providers are able to order a medication from an existing home medication list in [facility] via the "Reconcile Routine" prior to Confirmation of that medication by forestry support specialist. Such practice is discouraged except when the physician, in their clinical judgment, deems that a medical need exists for a medication without regard to previous use.
--- NOTE | 2025-01-21 12:23 | PROVIDER PROGRESS NOTE ---
Subjective Subjective Subjective: Patient is a 64-year-old female with a history of ulcerative colitis s/p ostomy bag in place, former alcohol use, currently in remission, who presents with altered mentation and weakness. Patient has had multiple visits for hyponatremia and hypoglycemia in the past. She was just admitted on 01/08 for altered mentation, and was found to be hypoglycemic. Continuous glucose monitor was placed, and patient's has been watching it diligently to ensure that he gives her snack every time she drops below 50. She has had similar episodes of confusionshe was also admitted on 11/27 for for hypoglycemia and hyponatremia. This morning, she does awaken to voice. She is able to open her eyes, and tell me she feels good. She then goes back to sleep. She is very lethargic. Per , Rashad, at bedside, she has been having decreased p.o. intake for the last few days. Just a couple days ago, she had some nausea, and episodes of emesis. Current Medications Current Medications Current Medications: Current Medications Generic Name Dose Route Start Last Admin Trade Name Freq PRN Reason Stop Dose Admin Acetaminophen 650 mg 01/20/25 18:58 01/20/25 19:53 Acetaminophen 325 Mg Tablet PO 650 mg Q4HR PRN Administration Pain 1 to 4, or Fever Norepinephrine/Sodium Chloride 8 mg in 250 mls @ 15 mls/hr 01/20/25 18:00 01/21/25 08:40 Levophed 8 Mg/250-0.9% Nacl IV 8 mcg/min .[id number] FRANK 15 mls/hr Titration Protocol 8 MCG/MIN Linezolid 600 mg in 300 mls @ 300 mls/hr 01/20/25 19:00 01/21/25 07:45 Zyvox 600 Mg/300 Ml IV Infused Q12H FRANK Infusion Dextrose/Sodium Chloride 1,000 mls @ 100 mls/hr 01/20/25 19:00 01/21/25 06:03 D5ns IV 100 mls/hr .Q10H FRANK Administration Cefepime HCl 1 gm/ Sodium 100 mls @ 200 mls/hr 01/21/25 02:00 01/21/25 12:11 Chloride IV Infused Q8H FRANK Infusion Ondansetron HCl 4 mg 01/20/25 18:58 Ondansetron 4 Mg/2 Ml Vial IVP Q6HR PRN Nausea / Vomiting Sodium Chloride 10 ml 01/20/25 18:58 01/21/25 04:08 Sodium Chloride Flush 0.9% 10 Ml Syringe IVP 10 ml PRN PRN Administration NEEDED PER PROVIDER ORDERS Sodium Chloride 10 ml 01/21/25 01:00 01/21/25 08:56 Sodium Chloride Flush 0.9% 10 Ml Syringe IVP 10 ml 0100,0900,1700 FRANK Administration Sodium Zirconium Cyclosilicate 10 gm 01/21/25 12:00 Sodium Zirconium Cyclosilicate 5 Gm Packet PO DAILY FRANK Objective Vital Signs/Intake & Output Reviewed Vital Signs: Yes Vital Signs: Vital Signs x48h Temp Pulse Resp BP BP Pulse Ox 01/21/25 12:00 97.2 F L 73 19 117/71 95 01/21/25 11:00 97.2 F L 65 16 97/53 L 97/53 L 98 01/21/25 10:00 61 11 L 83/46 L 97 01/21/25 09:00 70 7 L 106/57 L 96 01/21/25 08:00 98.4 F 60 12 97/50 L 98 01/21/25 07:08 70 114/47 L 01/21/25 07:00 62 10 L 97/48 L 97 01/21/25 06:00 99.0 F 65 12 103/52 L 98 01/21/25 05:00 98.8 F 64 13 99/60 97 Intake & Output: Intake & Output 01/18/25 01/19/25 01/20/25 01/21/25 23:59 23:59 23:59 23:59 Intake Total 2351 / 2351 2703 / 2703 Output Total 415 / 415 1185 / 1185 Balance 1936 / 193 1518 / 1518 Weight (kg) 45 kg Objective General Appearance: positive No acute distress, Lethargic and Other (appears older than stated age, underweight) Eyes Bilateral: positive Normal inspection, PERRL, EOMI and Conjunctivae nml ENT: positive ENT inspection nml, Pharynx nml and No signs of dehydration Neck: positive Nml inspection, Thyroid nml and No JVD Respiratory: positive Chest non-tender, No respiratory distress and Breath sounds nml; negative Wheezes, Rales or Rhonchi Cardiovascular: positive Regular rate & rhythm and No murmur; negative Systolic murmur Abdomen: positive Non-tender, No organomegaly and Other (ostomy bag in place; only 200cc of stool output ); negative Guarding, Hepatomegaly or Splenomegaly Back: positive Nml inspection; negative CVA tenderness (R) or CVA tenderness (L) Skin: positive Color nml, No rash, Warm and Dry Extremities: positive Non-tender, Full ROM, Nml appearance and No pedal edema Neurologic/Psychiatric: positive Mood/affect nml, Disoriented to person, Disoriented to place, Disoriented to time and Other (slow to respond) Lab Results 01/21/25 04:10 01/21/25 04:10 Other Labs: Lab Results x24hrs 01/21/25 01/21/25 01/20/25 Range/Units 08:44 04:10 21:10 WBC 7.6 (4.8-10.8) x10^3/uL RBC 3.08 L (4.20-5.40) 10^6/uL Hgb 9.1 L (12.0-16.0) g/dL Hct 27.1 L (37.0-47.0) % MCV 88.0 (81.0-99.0) fL MCH 29.5 (27.0-31.0) pg MCHC 33.6 (32.0-36.0) g/dL RDW 14.7 (12.0-15.0) % Plt Count 130 (130-450) 10^3/uL MPV 10.4 (7.9-10.8) fL Neut # (Auto) Not Reportable Lymph # (Auto) Not Reportable [place] # (Auto) Not Reportable Eos # (Auto) Not Reportable Baso # (Auto) Not Reportable Absolute Nucleated RBC Not Reportable Total Counted 100 Band Neuts % (Manual) 58 H (0 - 10) % Reactive Lymphs % (Man) % Abnorm Lymph % (Manual) 0 % Metamyelocytes % ( - 0) % Nucleated RBC % Not Reportable Neutrophils # (Manual) 7.1 H (1.5-6.6) 10^3/uL Lymphocytes # (Manual) 0.2 L (1.5-3.5) 10^3/uL Monocytes # (Manual) 0.3 (0.0-1.0) 10^3/uL Eosinophils # (Manual) 0.0 (0-0.7) 10^3/uL Basophils # (Manual) 0.0 (0-0.1) 10^3/uL Differential Comment MANUAL DIFFERENTIAL Manual Slide Review Platelet Estimate NORMAL (130-450,000) (NORMAL) Platelet Morphology NORMAL APPEARANCE (NORMAL) RBC Morph Micro Appear NORMAL APPEARANCE (NORMAL) VBG pH (7.31-7.41) VBG pCO2 (41-51) mmHg VBG pO2 (25-47) mmHg VBG HCO3 (23-28) mmol/L VBG Total CO2 (24-29) mmol/L VBG O2 Saturation (60-80) % VBG Base Excess (-2 - +2) mmol/L Sodium 135 131 L (135-145) mmol/L Potassium 4.9 H 5.4 H (3.5-4.5) mmol/L Chloride 112 H 108 (101-111) mmol/L Carbon Dioxide 18 L 18 L (21-32) mmol/L Anion Gap 5.0 L 5.0 L (6-13) BUN 24 H 26 H (6-20) mg/dL Creatinine 0.9 0.8 (0.6-1.3) mg/dL Estimated GFR (MDRD) 63 L 72 L (>89) Glucose 126 H 232 H (74-104) mg/dL POC Whole Bld Glucose 121 (70-100) mg/dL Lactic Acid (0.5-2.2) mmol/L Calcium 8.5 8.6 (8.5-10.3) mg/dL Magnesium 1.5 L (1.7-2.3) mg/dL Total Bilirubin (0.2-1.0) mg/dL AST (10-42) IU/L ALT (10-60) IU/L Alkaline Phosphatase (42-121) IU/L Troponin I High Sens 11.5 (2.3-14.8) ng/L Total Protein (6.4-8.9) g/dL Albumin (3.2-5.5) g/dL Globulin (2.1-4.2) g/dL Albumin/Globulin Ratio (1.0-2.2) Lipase (11-82) U/L TSH (0.34-5.60) uIU/mL Free T4 Direct (0.58-1.64) ng/dL Free T3 pg/mL (2.5-3.9) pg/mL Urine Color Urine Clarity (CLEAR) Urine pH (5.0-7.5) PH Ur Specific [place] (1.002-1.030) Urine Protein (NEGATIVE) mg/dL Urine Glucose (UA) (NEGATIVE) mg/dL Urine Ketones (NEGATIVE) mg/dL Urine Occult Blood (NEGATIVE) Urine Nitrite (NEGATIVE) Urine Bilirubin (NEGATIVE) Urine Urobilinogen (NORMAL) E.U./dL Ur Leukocyte Esterase (NEGATIVE) Ur Microscopic Review Urine Culture Comments Nasal Screen MRSA (PCR) (NEGATIVE) Ethyl Alcohol mg/dL 01/20/25 01/20/25 01/20/25 Range/Units 19:10 18:30 18:10 WBC (4.8-10.8) x10^3/uL RBC (4.20-5.40) 10^6/uL Hgb (12.0-16.0) g/dL Hct (37.0-47.0) % MCV (81.0-99.0) fL MCH (27.0-31.0) pg MCHC (32.0-36.0) g/dL RDW (12.0-15.0) % Plt Count (130-450) 10^3/uL MPV (7.9-10.8) fL Neut # (Auto) Lymph # (Auto) [place] # (Auto) Eos # (Auto) Baso # (Auto) Absolute Nucleated RBC Total Counted Band Neuts % (Manual) (0 - 10) % Reactive Lymphs % (Man) % Abnorm Lymph % (Manual) % Metamyelocytes % ( - 0) % Nucleated RBC % Neutrophils # (Manual) (1.5-6.6) 10^3/uL Lymphocytes # (Manual) (1.5-3.5) 10^3/uL Monocytes # (Manual) (0.0-1.0) 10^3/uL Eosinophils # (Manual) (0-0.7) 10^3/uL Basophils # (Manual) (0-0.1) 10^3/uL Differential Comment Manual Slide Review Platelet Estimate (NORMAL) Platelet Morphology (NORMAL) RBC Morph Micro Appear (NORMAL) VBG pH (7.31-7.41) VBG pCO2 (41-51) mmHg VBG pO2 (25-47) mmHg VBG HCO3 (23-28) mmol/L VBG Total CO2 (24-29) mmol/L VBG O2 Saturation (60-80) % VBG Base Excess (-2 - +2) mmol/L Sodium (135-145) mmol/L Potassium (3.5-4.5) mmol/L Chloride (101-111) mmol/L Carbon Dioxide (21-32) mmol/L Anion Gap (6-13) BUN (6-20) mg/dL Creatinine (0.6-1.3) mg/dL Estimated GFR (MDRD) (>89) Glucose (74-104) mg/dL POC Whole Bld Glucose (70-100) mg/dL Lactic Acid 0.8 (0.5-2.2) mmol/L Calcium (8.5-10.3) mg/dL Magnesium (1.7-2.3) mg/dL Total Bilirubin (0.2-1.0) mg/dL AST (10-42) IU/L ALT (10-60) IU/L Alkaline Phosphatase (42-121) IU/L Troponin I High Sens (2.3-14.8) ng/L Total Protein (6.4-8.9) g/dL Albumin (3.2-5.5) g/dL Globulin (2.1-4.2) g/dL Albumin/Globulin Ratio (1.0-2.2) Lipase (11-82) U/L TSH (0.34-5.60) uIU/mL Free T4 Direct (0.58-1.64) ng/dL Free T3 pg/mL (2.5-3.9) pg/mL Urine Color YELLOW Urine Clarity CLEAR (CLEAR) Urine pH 5.5 (5.0-7.5) PH Ur Specific [place] 1.015 (1.002-1.030) Urine Protein TRACE (NEGATIVE) mg/dL Urine Glucose (UA) NEGATIVE (NEGATIVE) mg/dL Urine Ketones NEGATIVE (NEGATIVE) mg/dL Urine Occult Blood NEGATIVE (NEGATIVE) Urine Nitrite NEGATIVE (NEGATIVE) Urine Bilirubin NEGATIVE (NEGATIVE) Urine Urobilinogen 0.2 (NORMAL) (NORMAL) E.U./dL Ur Leukocyte Esterase NEGATIVE (NEGATIVE) Ur Microscopic Review NOT INDICATED Urine Culture Comments NOT INDICATED Nasal Screen MRSA (PCR) NEGATIVE (NEGATIVE) Ethyl Alcohol mg/dL 01/20/25 Range/Units 15:17 WBC 4.8 (4.8-10.8) x10^3/uL RBC 3.32 L (4.20-5.40) 10^6/uL Hgb 9.9 L (12.0-16.0) g/dL Hct 29.5 L (37.0-47.0) % MCV 88.9 (81.0-99.0) fL MCH 29.8 (27.0-31.0) pg MCHC 33.6 (32.0-36.0) g/dL RDW 14.6 (12.0-15.0) % Plt Count 82 L (130-450) 10^3/uL MPV 10.6 (7.9-10.8) fL Neut # (Auto) Not Reportable Lymph # (Auto) Not Reportable [place] # (Auto) Not Reportable Eos # (Auto) Not Reportable Baso # (Auto) Not Reportable Absolute Nucleated RBC Not Reportable Total Counted 100 Band Neuts % (Manual) 14 H (0 - 10) % Reactive Lymphs % (Man) 1 % Abnorm Lymph % (Manual) 2 % Metamyelocytes % 11 H ( - 0) % Nucleated RBC % Not Reportable Neutrophils # (Manual) 3.3 (1.5-6.6) 10^3/uL Lymphocytes # (Manual) 0.4 L (1.5-3.5) 10^3/uL Monocytes # (Manual) 0.4 (0.0-1.0) 10^3/uL Eosinophils # (Manual) 0.1 (0-0.7) 10^3/uL Basophils # (Manual) 0.0 (0-0.1) 10^3/uL Differential Comment MANUAL DIFFERENTIAL Manual Slide Review Indicated Platelet Estimate DECREASED (<130,000) (NORMAL) Platelet Morphology NORMAL APPEARANCE (NORMAL) RBC Morph Micro Appear 1+ HYPOCHROMASIA (NORMAL) VBG pH 7.320 (7.31-7.41) VBG pCO2 29.5 L (41-51) mmHg VBG pO2 44.8 (25-47) mmHg VBG HCO3 15.4 L (23-28) mmol/L VBG Total CO2 16.3 L (24-29) mmol/L VBG O2 Saturation 77.0 (60-80) % VBG Base Excess -10.9 L (-2 - +2) mmol/L Sodium 134 L (135-145) mmol/L Potassium 5.2 H (3.5-4.5) mmol/L Chloride 110 (101-111) mmol/L Carbon Dioxide 18 L (21-32) mmol/L Anion Gap 6.0 (6-13) BUN 29 H (6-20) mg/dL Creatinine 0.9 (0.6-1.3) mg/dL Estimated GFR (MDRD) 63 L (>89) Glucose 100 (74-104) mg/dL POC Whole Bld Glucose (70-100) mg/dL Lactic Acid (0.5-2.2) mmol/L Calcium 9.3 (8.5-10.3) mg/dL Magnesium 1.6 L (1.7-2.3) mg/dL Total Bilirubin 0.5 (0.2-1.0) mg/dL AST 39 (10-42) IU/L ALT 60 (10-60) IU/L Alkaline Phosphatase 125 H (42-121) IU/L Troponin I High Sens (2.3-14.8) ng/L Total Protein 5.2 L (6.4-8.9) g/dL Albumin 2.6 L (3.2-5.5) g/dL Globulin 2.6 (2.1-4.2) g/dL Albumin/Globulin Ratio 1.0 (1.0-2.2) Lipase 30 (11-82) U/L TSH 7.08 H (0.34-5.60) uIU/mL Free T4 Direct 0.82 (0.58-1.64) ng/dL Free T3 pg/mL 2.43 L (2.5-3.9) pg/mL Urine Color Urine Clarity (CLEAR) Urine pH (5.0-7.5) PH Ur Specific [place] (1.002-1.030) Urine Protein (NEGATIVE) mg/dL Urine Glucose (UA) (NEGATIVE) mg/dL Urine Ketones (NEGATIVE) mg/dL Urine Occult Blood (NEGATIVE) Urine Nitrite (NEGATIVE) Urine Bilirubin (NEGATIVE) Urine Urobilinogen (NORMAL) E.U./dL Ur Leukocyte Esterase (NEGATIVE) Ur Microscopic Review Urine Culture Comments Nasal Screen MRSA (PCR) (NEGATIVE) Ethyl Alcohol < 10.0 mg/dL Diagnostic Imaging Diagnostic Imaging Results: positive Final report reviewed Sepsis Event Note (H) Evaluation Current Stage of Sepsis: Septic shock Possible source of Sepsis: positive Unknown Sepsis Criteria Sepsis Criteria: Recorded Temperature greater than 38.3C or Less than 36C, SNOWSP[employer] INSTRUCTOR: altered consciousness (unrelated to primary neuro pathology) and MAP less than 65 mmHg Assessment/Plan Problem List (1) Encephalopathy acute: Impression: Patient presented due to worsening confusion, lethargy. Likely due to hypoglycemia, hypovolemic shock due to decreased P.O. intake as well as repeated episodes of nausea/emesis at home. Abdomen/pelvis CT done on admission shows no acute inflammatory process, no bowel obstruction. 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 Likely hypovolemic shock in setting of decreased p.o. intake, as well as GI losses. Currently requiring Levophed to maintain MAPs greater than 65. Weaning down. Was started on linezolid, as well as cefepime to rule out any septic causes. Will DC at this time. White count within normal limits, patient is afebrile. Chest x-ray shows mild pulmonary vascular congestion, but no pneumonia. Abdomen/pelvis CT shows no signs of infection. Urine is negative for any infection as well. MRI brain ordered, pending. (2) Hypoglycemia: Impression: Continue D5 fluids at this time. (3) Shock: Impression: Likely hypovolemic shock due to GI losses and decreased P.O. intake. Continue IVF at this time. May require Dobhoff placement, tube feeds to supplement nutritional status in acute setting until patient is more alert. (4) Acute hyperkalemia: Impression: Chronic issue for patient; on Lokelma. Continued. (5) History of colostomy: Impression: Has a colostomy in place on the right side. Current output is minimal. Continue to monitor. (6) Hypertension: Impression: Was previously on amlodipine and losartan at home. Currently borderline low blood pressures; will hold at this time. Qualifiers: Hypertension type: primary hypertension Qualified Code(s): I10 - Essential (primary) hypertension (7) Ulcerative colitis, chronic: Impression: Stable, not in acute flare at this time. Qualifiers: Digestive disease complication type: without complication Ulcerative colitis location: unspecified ulcerative colitis location Qualified Code(s): K 51.90 - Ulcerative colitis, unspecified, without complications
[2025-01-21] MEDS: SODIUM ZIRCONIUM CYCLOSILICATE 5 GM PACKET PO SCH (12:52)
[2025-01-21] MEDS ORDERED: OLANZapine ODT 5 MG TABLET TL PRN (20:03)
[2025-01-22 04:48] LABS: BASOPHILS % (AUTO) 1.7 %; EOSINOPHILS % (AUTO) 5.9 %; HCT - HEMATOCRIT 23.3 % (37.0-47.0); HGB - HEMOGLOBIN 7.7 g/dL (12.0-16.0); LYMPHOCYTES % (AUTO) 8.4 %; MEAN CORPUSCULAR HEMOGLOBIN 29.4 pg (27.0-31.0); MEAN CORPUSCULAR VOLUME 88.9 fL (81.0-99.0); MEAN PLATELET VOLUME 9.6 fL (7.9-10.8); MONOCYTES % (AUTO) 7.7 %; PLT - PLATELET COUNT 95 10^3/uL (130-450); RED BLOOD COUNT 2.62 10^6/uL (4.20-5.40); RED CELL DISTRIBUTION WIDTH 15.3 % (12.0-15.0); WHITE BLOOD COUNT 2.9 x10^3/uL (4.8-10.8)
[2025-01-22 04:51] LABS: ABNORMAL LYMPHS % (MANUAL) 0 %
[2025-01-22 05:04] LABS: CALCIUM 8.6 mg/dL (8.5-10.3); CREATININE 0.7 mg/dL (0.6-1.3); MAGNESIUM 1.6 mg/dL (1.7-2.3); POTASSIUM 3.7 mmol/L (3.5-4.5)
[2025-01-22 06:31] LABS: BAND NEUTROPHILS % (MANUAL) 26 %; DIFFERENTIAL COMMENT MANUAL DIFFERENTIAL; EOSINOPHILS # (MANUAL) 0.2 10^3/uL (0-0.7); LYMPHOCYTES # (MANUAL) 0.5 10^3/uL (1.5-3.5); LYMPHOCYTES % (MANUAL) 18 %; METAMYELOCYTES % (MANUAL) 1 %; MONOCYTES # (MANUAL) 0.1 10^3/uL (0.0-1.0); MYELOCYTES % (MANUAL) 1 %; NEUTROPHILS # (MANUAL) 2.1 10^3/uL (1.5-6.6); PLATELET ESTIMATE, MANUAL DECREASED (<130,000) (NORMAL); PLATELET MORPHOLOGY NORMAL APPEARANCE (NORMAL); RBC MORPHOLOGY (MULTIPLE) NORMAL APPEARANCE (NORMAL); WBC MORPHOLOGY (MULTIPLE) 1+ TOXIC GRANULATION (NORMAL)
[2025-01-22] MEDS: POTASSIUM CHLORIDE 20 MEQ TABLET PO ONE (08:35)
[2025-01-22] MEDS: MAGNESIUM OXIDE 400 MG TABLET PO ONE ×2 (08:35→17:41)
[2025-01-22] MEDS: NEUTRA-PHOS 250 MG TABLET PO SCH (08:35)
--- NOTE | 2025-01-22 11:26 | MRI Report ---
PROCEDURE: MRI Brain WO INDICATIONS: encephalopathy TECHNIQUE: Multiplanar multisequential MR images of the brain were obtained without contrast COMPARISON: MR brain 10/18/2024, 01/20/2025 FINDINGS: CSF Spaces: Basal cisterns are patent. No extra-axial fluid collections. Ventricles are normal in size and shape. Brain: No intracranial masses or hemorrhage. [place]/white matter interface is normal. Brainstem appe ars normal. Diffusion-weighted images shows no evidence of acute infarct. Normal intravascular flow voids are present. Minimal right frontal white matter chronic ischemic change Skull and face: Calvarium has normal marrow signal. Orbits appear normal. Sinuses: Sinuses and mastoids are clear. IMPRESSION: Mild white matter chronic ischemic change without acute infarct, hemorrhage or mass lesion Reviewed by: Jermaine Bishop MD on 01/22/2025 10:25 AM VONNIE Approved by: Jermaine Bishop MD on 01/22/2025 10:25 AM VONNIE Station ID: [id number]
[2025-01-22] MEDS: DEXTROSE 5%-LACTATED RINGERS 1,000 ML IV SCH (11:28)
[2025-01-22] MEDS: LEVOTHYROXINE 25 MCG TABLET PO SCH (12:05)
[2025-01-22] MEDS: CHOLECALCIFEROL 25 MCG TABLET PO SCH (12:05)
[2025-01-22] MEDS: INSULIN LISPRO 300 UNIT/3 ML PEN SUBQ SCH (12:05)
--- NOTE | 2025-01-22 13:43 | PROVIDER PROGRESS NOTE ---
Subjective Prog Note Date Prog Note Date: 01/22/25 Subjective Pt reports feeling: Improved Current Medications Current Medications Current Medications: Current Medications Generic Name Dose Route Start Last Admin Trade Name Freq PRN Reason Stop Dose Admin Acetaminophen 650 mg 01/20/25 18:58 01/22/25 08:35 Acetaminophen 325 Mg Tablet PO 650 mg Q4HR PRN Administration Pain 1 to 4, or Fever Carboxymethylcellulose 1 drops 01/21/25 21:03 Carboxymethylcellulose Ophth Drops EACHEYE PRN PRN Dry Eye Cholecalciferol 25 mcg 01/22/25 12:00 01/22/25 12:05 Cholecalciferol 25 Mcg Tablet PO 25 mcg DAILY FRANK Administration Norepinephrine/Sodium Chloride 8 mg in 250 mls @ 15 mls/hr 01/20/25 18:00 01/22/25 11:54 Levophed 8 Mg/250-0.9% Nacl IV 0 mcg/min .[id number] FRANK 0 mls/hr Titration Protocol 8 MCG/MIN Dextrose/Lactated Ringer's 1,000 mls @ 75 mls/hr 01/22/25 12:00 01/22/25 11:28 D5lr IV 75 mls/hr .[id number] FRANK Administration Insulin Human Lispro 1 - 5 unit 01/22/25 12:00 01/22/25 12:05 Insulin Lispro 300 Unit/3 Ml Pen SUBQ Not Given 0800,1200,1700,2100 [facility] Protocol Levothyroxine Sodium 25 mcg 01/22/25 12:00 01/22/25 12:05 Levothyroxine 25 Mcg Tablet PO 25 mcg QDAC FRANK Administration Olanzapine 2.5 mg 01/21/25 20:03 Olanzapine Odt 5 Mg Tablet TL HS PRN Agitation Ondansetron HCl 4 mg 01/20/25 18:58 Ondansetron 4 Mg/2 Ml Vial IVP Q6HR PRN Nausea / Vomiting Sodium Chloride 10 ml 01/20/25 18:58 01/21/25 04:08 Sodium Chloride Flush 0.9% 10 Ml Syringe IVP 10 ml PRN PRN Administration NEEDED PER PROVIDER ORDERS Sodium Chloride 10 ml 01/21/25 01:00 01/22/25 08:36 Sodium Chloride Flush 0.9% 10 Ml Syringe IVP 10 ml 0100,0900,1700 FRANK Administration Sodium Zirconium Cyclosilicate 10 gm 01/21/25 12:00 01/22/25 08:36 Sodium Zirconium Cyclosilicate 5 Gm Packet PO Not Given DAILY [facility] Thiamine HCl 100 mg 01/23/25 09:00 Thiamine 100 Mg Tablet PO DAILY [facility] Objective Vital Signs/Intake & Output Reviewed Vital Signs: Yes Vital Signs: Vital Signs x48h Temp Pulse Resp BP Pulse Ox 01/22/25 13:00 34.7 C L 64 13 114/67 97 01/22/25 12:25 35.0 C L 64 17 116/60 96 01/22/25 11:15 91/57 L 01/22/25 11:00 34.9 C L 53 L 10 L 76/44 L 98 01/22/25 10:00 34.9 C L 66 14 111/65 94 01/22/25 09:00 73 13 100/69 95 01/22/25 08:00 36.6 C 77 18 119/59 L 97 01/22/25 07:00 36.8 C 83 12 128/68 97 01/22/25 06:00 36.5 C 79 10 L 112/63 96 Intake & Output: Intake & Output 01/19/25 01/20/25 01/21/25 01/22/25 23:59 23:59 23:59 23:59 Intake Total 2351 / 2351 4940 / 4940 2529 / 2529 Output Total 415 / 415 2640 / 2640 1128 / 1128 Balance 1936 / 193 2300 / 2300 1401 / 1401 Weight (kg) 45 kg 44 kg Objective General Appearance: positive No acute distress, Lethargic and Other (appears older than stated age, underweight) Eyes Bilateral: positive Normal inspection, PERRL, EOMI and Conjunctivae nml ENT: positive ENT inspection nml, Pharynx nml and No signs of dehydration Neck: positive Nml inspection, Thyroid nml and No JVD Respiratory: positive Chest non-tender, No respiratory distress and Breath sounds nml; negative Wheezes, Rales or Rhonchi Cardiovascular: positive Regular rate & rhythm, No murmur and Other (Has episodes of bradycardia when she sleeps); negative Systolic murmur Abdomen: positive Non-tender, No organomegaly and Other (ostomy bag in place; only 200cc of stool output ); negative Guarding, Hepatomegaly or Splenomegaly Back: positive Nml inspection Skin: positive Color nml, No rash, Warm and Dry Extremities: positive Non-tender, Full ROM, Nml appearance and No pedal edema Neurologic/Psychiatric: positive Oriented x3, Mood/affect nml and Other (slow to respond) Lab Results 01/22/25 04:20 01/22/25 04:20 Other Labs: Lab Results x24hrs 01/22/25 01/22/25 01/22/25 Range/Units 11:52 08:24 04:20 WBC 2.9 L (4.8-10.8) x10^3/uL RBC 2.62 L (4.20-5.40) 10^6/uL Hgb 7.7 L (12.0-16.0) g/dL Hct 23.3 L (37.0-47.0) % MCV 88.9 (81.0-99.0) fL MCH 29.4 (27.0-31.0) pg MCHC 33.0 (32.0-36.0) g/dL RDW 15.3 H (12.0-15.0) % Plt Count 95 L (130-450) 10^3/uL MPV 9.6 (7.9-10.8) fL Neut # (Auto) Not Reportable Lymph # (Auto) Not Reportable Caldwell # (Auto) Not Reportable Eos # (Auto) Not Reportable Baso # (Auto) Not Reportable Absolute Nucleated RBC Not Reportable Total Counted 100 Band Neuts % (Manual) 26 H (0 - 10) % Abnorm Lymph % (Manual) 0 % Metamyelocytes % 1 H ( - 0) % Myelocytes % 1 H ( - 0) % Nucleated RBC % Not Reportable Neutrophils # (Manual) 2.1 (1.5-6.6) 10^3/uL Lymphocytes # (Manual) 0.5 L (1.5-3.5) 10^3/uL Monocytes # (Manual) 0.1 (0.0-1.0) 10^3/uL Eosinophils # (Manual) 0.2 (0-0.7) 10^3/uL Basophils # (Manual) 0.0 (0-0.1) 10^3/uL Differential Comment MANUAL DIFFERENTIAL WBC Morphology 1+ TOXIC GRANULATION (NORMAL) Platelet Estimate DECREASED (<130,000) (NORMAL) Platelet Morphology NORMAL APPEARANCE (NORMAL) RBC Morph Micro Appear NORMAL APPEARANCE (NORMAL) Sodium 141 (135-145) mmol/L Potassium 3.7 (3.5-4.5) mmol/L Chloride 118 H (101-111) mmol/L Carbon Dioxide 19 L (21-32) mmol/L Anion Gap 4.0 L (6-13) BUN 16 (6-20) mg/dL Creatinine 0.7 (0.6-1.3) mg/dL Estimated GFR (MDRD) 84 L (>89) Glucose 72 L (74-104) mg/dL POC Whole Bld Glucose 73 80 (70-100) mg/dL Calcium 8.6 (8.5-10.3) mg/dL Phosphorus 2.0 L (2.5-5.0) mg/dL Magnesium 1.6 L (1.7-2.3) mg/dL Prealbumin 14 L (17-34) mg/dL 03/25/25 Range/Units 15:30 WBC (4.8-10.8) x10^3/uL RBC (4.20-5.40) 10^6/uL Hgb (12.0-16.0) g/dL Hct (37.0-47.0) % MCV (81.0-99.0) fL MCH (27.0-31.0) pg MCHC (32.0-36.0) g/dL RDW (12.0-15.0) % Plt Count (130-450) 10^3/uL MPV (7.9-10.8) fL Neut # (Auto) Lymph # (Auto) Caldwell # (Auto) Eos # (Auto) Baso # (Auto) Absolute Nucleated RBC Total Counted Band Neuts % (Manual) (0 - 10) % Abnorm Lymph % (Manual) % Metamyelocytes % ( - 0) % Myelocytes % ( - 0) % Nucleated RBC % Neutrophils # (Manual) (1.5-6.6) 10^3/uL Lymphocytes # (Manual) (1.5-3.5) 10^3/uL Monocytes # (Manual) (0.0-1.0) 10^3/uL Eosinophils # (Manual) (0-0.7) 10^3/uL Basophils # (Manual) (0-0.1) 10^3/uL Differential Comment WBC Morphology (NORMAL) Platelet Estimate (NORMAL) Platelet Morphology (NORMAL) RBC Morph Micro Appear (NORMAL) Sodium (135-145) mmol/L Potassium (3.5-4.5) mmol/L Chloride (101-111) mmol/L Carbon Dioxide (21-32) mmol/L Anion Gap (6-13) BUN (6-20) mg/dL Creatinine (0.6-1.3) mg/dL Estimated GFR (MDRD) (>89) Glucose (74-104) mg/dL POC Whole Bld Glucose 111 (70-100) mg/dL Calcium (8.5-10.3) mg/dL Phosphorus (2.5-5.0) mg/dL Magnesium (1.7-2.3) mg/dL Prealbumin (17-34) mg/dL Sepsis Event Note (H) Evaluation Current Stage of Sepsis: Septic shock Possible source of Sepsis: positive Unknown Sepsis Criteria Sepsis Criteria: Recorded Temperature greater than 38.3C or Less than 36C, [employer]: altered consciousness (unrelated to primary neuro pathology) and MAP less than 65 mmHg Assessment/Plan Problem List (1) Encephalopathy acute: Impression: Patient presented due to worsening confusion, lethargy. Likely due to hypoglycemia, hypovolemic shock due to decreased P.O. intake as well as repeated episodes of nausea/emesis at home. Abdomen/pelvis CT done on admission shows no acute inflammatory process, no bowel obstruction. 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 Likely hypovolemic shock in setting of decreased p.o. intake, as well as GI losses. Currently requiring Levophed to maintain MAPs greater than 65. Weaning down. Was started on linezolid, as well as cefepime to rule out any septic causes. Will DC at this time. White count within normal limits, patient is afebrile. Chest x-ray shows mild pulmonary vascular congestion, but no pneumonia. Abdomen/pelvis CT shows no signs of infection. Urine is negative for any infection as well. 01/22/2025: MRI brain with no acute changes. She continues to require low doses of Levophed, is off intermittently. I believe this is still hypovolemia. I have changed her fluids to D5 LR to combat her rising chloride level and to help with her NAGMA. Her reported to nursing staff that he is home with severe diarrhea, so I ordered a stool PCR panel (2) Hypoglycemia: Impression: Hypoglycemia has improved somewhat but is still volatile. Glucose was 72 on a.m. labs. I am continuing IV fluids with dextrose as described above (3) Shock: Impression: Likely hypovolemic shock due to GI losses and decreased P.O. intake. Continue IVF at this time. Her mentation improved before Dobbhoff could be placed. Encouraging p.o. intake. I am continuing Levophed. If she does not wean off of Levophed by tomorrow, will start midodrine (4) Acute hyperkalemia: Impression: Potassium 3.7 today (5) History of colostomy: Impression: Right-sided colostomy. Nursing reports change in color/consistency today as well as reporting diarrhea. I have ordered a stool panel (6) Hypertension: Impression: I am continuing to hold her amlodipine and losartan as she is on Levophed now Qualifiers: Hypertension type: primary hypertension Qualified Code(s): I10 - Essential (primary) hypertension (7) Ulcerative colitis, chronic: Impression: Stable, not in acute flare at this time. Qualifiers: Ulcerative colitis location: unspecified ulcerative colitis location D igestive disease complication type: without complication Qualified Code(s): K 51.90 - Ulcerative colitis, unspecified, without complications
[2025-01-22 15:51] LABS: MAGNESIUM 1.5 mg/dL (1.7-2.3)
[2025-01-22 15:56] LABS: PHOSPHORUS 2.5 mg/dL (2.5-5.0)
[2025-01-22] MEDS: ONDANSETRON 4 MG/2 ML VIAL IVP PRN (17:41)
[2025-01-22] MEDS: DICYCLOMINE 10 MG CAPSULE PO STA (18:38)
[2025-01-22] MEDS: CARBOXYMETHYLCELLULOSE OPHTH DROPS EACHEYE PRN (20:01)
[2025-01-22] MEDS: MAG HYDROX/AL HYDROX/SIMETH 30 ML UDC PO PRN (20:26)
[2025-01-22] MEDS: DICYCLOMINE 10 MG CAPSULE PO PRN (20:26)
[2025-01-22] MEDS: ZINC OXIDE 20% OINT 30 GM TUBE TOP SCH (20:27)
[2025-01-22] MEDS ORDERED: PROMETHAZINE 25 MG TABLET PO PRN (20:34)
[2025-01-22] MEDS ORDERED: SODIUM CHLORIDE 1 GM TABLET PO SCH (21:00)
[2025-01-22] MEDS: traMADol 50 MG TABLET PO PRN (22:15)
[2025-01-22] MEDS: MELATONIN 3 MG TABLET PO SCH (22:16)
[2025-01-23] MEDS: MAGNESIUM SULFATE 2 GRAM 2 GM/50 ML BAG IV SCH (00:19)
[2025-01-23 04:38] LABS: BASOPHILS % (AUTO) 1.5 %; EOSINOPHILS % (AUTO) 4.4 %; HCT - HEMATOCRIT 21.2 % (37.0-47.0); LYMPHOCYTES % (AUTO) 12.3 %; MEAN CORPUSCULAR HEMOGLOBIN 29.8 pg (27.0-31.0); MEAN CORPUSCULAR VOLUME 90.2 fL (81.0-99.0); MEAN PLATELET VOLUME 9.9 fL (7.9-10.8); NEUTROPHILS % (AUTO) 75.6 %; PLT - PLATELET COUNT 87 10^3/uL (130-450); RED BLOOD COUNT 2.35 10^6/uL (4.20-5.40); RED CELL DISTRIBUTION WIDTH 15.6 % (12.0-15.0); WHITE BLOOD COUNT 3.4 x10^3/uL (4.8-10.8)
[2025-01-23 04:43] LABS: ABNORMAL LYMPHS % (MANUAL) 0 %
[2025-01-23 04:51] LABS: MAGNESIUM 3.3 mg/dL (1.7-2.3)
[2025-01-23 04:55] LABS: CALCIUM, IONIZED 1.34 mmol/L (1.09-1.30); VBG PH 7.351 (7.31-7.41)
[2025-01-23 04:56] LABS: CALCIUM 8.7 mg/dL (8.5-10.3); CREATININE 0.8 mg/dL (0.6-1.3); POTASSIUM 3.7 mmol/L (3.5-4.5)
[2025-01-23 05:33] LABS: BAND NEUTROPHILS % (MANUAL) 14 %; DIFFERENTIAL COMMENT MANUAL DIFFERENTIAL; EOSINOPHILS # (MANUAL) 0.2 10^3/uL (0-0.7); LYMPHOCYTES # (MANUAL) 0.4 10^3/uL (1.5-3.5); LYMPHOCYTES % (MANUAL) 12 %; NEUTROPHILS # (MANUAL) 2.8 10^3/uL (1.5-6.6); PLATELET ESTIMATE, MANUAL DECREASED (<130,000) (NORMAL); PLATELET MORPHOLOGY NORMAL APPEARANCE (NORMAL); RBC MORPHOLOGY (MULTIPLE) NORMAL APPEARANCE (NORMAL)
[2025-01-23 06:09] LABS: ADENOVIRUS F 40/41 Not Detected (Not Detected); ASTROVIRUS Not Detected (Not Detected); C DIFFICILE TOXIN A/B Not Detected (Not Detected); CAMPYLOBACTER Not Detected (Not Detected); CRYPTOSPORIDIUM Not Detected (Not Detected); CYCLOSPORA CAYETANENSIS Not Detected (Not Detected); ENTAMOEBA HISTOLYTICA Not Detected (Not Detected); ENTEROAGGREGATIVE E COLI Not Detected (Not Detected); ENTEROPATHOGENIC E COLI Not Detected (Not Detected); ENTEROTOXIGENIC E COLI Not Detected (Not Detected); GIARDIA LAMBLIA Not Detected (Not Detected); NOROVIRUS GI/GII Detected (Not Detected); PLESIOMONAS SHIGELLOIDES Not Detected (Not Detected); ROTAVIRUS A Not Detected (Not Detected); SALMONELLA Not Detected (Not Detected); SAPOVIRUS Not Detected (Not Detected); SHIGA-TOXIN-PRODUCING E COLI Not Detected (Not Detected); SHIGELLA/ENTEROINVASIVE E COLI Not Detected (Not Detected); VIBRIO Not Detected (Not Detected); VIBRIO CHOLERAE Not Detected (Not Detected); YERSINIA ENTEROCOLITICA Not Detected (Not Detected)
[2025-01-23] MEDS: NEUTRA-PHOS 250 MG TABLET PO SCH (06:17)
[2025-01-23 08:27] LABS: ESTIMATED AVERAGE GLUCOSE 131 mg/dL (70-100); HEMOGLOBIN A1c% 6.2 % (4.27-6.07)
[2025-01-23] MEDS: THIAMINE 100 MG TABLET PO SCH (08:47)
[2025-01-23 11:59] LABS: ABSOLUTE RETICS # AUTO 0.017 10^6/uL (0.020-0.110); RED BLOOD COUNT 2.45 10^6/uL (4.20-5.40); RETICULOCYTE COUNT % (AUTO) 0.71 % (0.5-2.3)
[2025-01-23 12:01] LABS: HCT - HEMATOCRIT 22.1 % (37.0-47.0); HGB - HEMOGLOBIN 7.5 g/dL (12.0-16.0)
[2025-01-23 12:34] LABS: FERRITIN 584.4 ng/mL (11.0-306.8)
--- NOTE | 2025-01-23 16:43 | PROVIDER PROGRESS NOTE ---
Subjective Prog Note Date Prog Note Date: 01/23/25 Subjective Pt reports feeling: No change Current Medications Current Medications Current Medications: Current Medications Generic Name Dose Route Start Last Admin Trade Name Shine PRN Reason Stop Dose Admin Acetaminophen 650 mg 01/20/25 18:58 01/22/25 19:55 Acetaminophen 325 Mg Tablet PO 650 mg Q4HR PRN Administration Pain 1 to 4, or Fever Al Hydroxide/Mg Hydroxide 30 ml 01/22/25 19:50 01/22/25 20:26 Mag Hydrox/Al Hydrox/Simeth 30 Ml Udc PO 30 ml Q4HR PRN Administration INDIGESTION Carboxymethylcellulose 1 drops 01/21/25 21:03 01/23/25 06:18 Carboxymethylcellulose Ophth Drops EACHEYE 1 drops PRN PRN Administration Dry Eye Cholecalciferol 25 mcg 01/22/25 12:00 01/23/25 08:47 Cholecalciferol 25 Mcg Tablet PO 25 mcg DAILY FRANK Administration Dicyclomine HCl 10 mg 01/22/25 19:50 01/22/25 20:26 Dicyclomine 10 Mg Capsule PO 10 mg QID PRN Administration Abdominal Pain Insulin Human Lispro 1 - 5 unit 01/22/25 12:00 01/23/25 12:24 Insulin Lispro 300 Unit/3 Ml Pen SUBQ Not Given 0800,1200,1700,2100 [facility] Protocol Levothyroxine Sodium 25 mcg 01/22/25 12:00 01/23/25 06:17 Levothyroxine 25 Mcg Tablet PO 25 mcg QDAC FRANK Administration Melatonin 3 mg 01/22/25 21:00 01/22/25 22:16 Melatonin 3 Mg Tablet PO 3 mg QPM FRANK Administration Multi-Ingredient Ointment 1 applic 01/22/25 21:00 01/23/25 08:47 Zinc Oxide 20% Oint 30 Gm Tube TOP 1 applic BID FRANK Administration Olanzapine 2.5 mg 01/21/25 20:03 Olanzapine Odt 5 Mg Tablet TL HS PRN Agitation Ondansetron HCl 4 mg 01/20/25 18:58 01/23/25 09:58 Ondansetron 4 Mg/2 Ml Vial IVP 4 mg Q6HR PRN Administration Nausea / Vomiting Promethazine HCl 25 mg 01/22/25 20:34 Promethazine 25 Mg Tablet PO Q6HR PRN Nausea / Vomiting Sodium Chloride 10 ml 01/20/25 18:58 01/21/25 04:08 Sodium Chloride Flush 0.9% 10 Ml Syringe IVP 10 ml PRN PRN Administration NEEDED PER PROVIDER ORDERS Sodium Chloride 10 ml 01/21/25 01:00 01/23/25 08:47 Sodium Chloride Flush 0.9% 10 Ml Syringe IVP 10 ml 0100,0900,1700 FRANK Administration Sodium Zirconium Cyclosilicate 10 gm 01/21/25 12:00 01/23/25 08:46 Sodium Zirconium Cyclosilicate 5 Gm Packet PO 10 gm DAILY FRANK Administration Thiamine HCl 100 mg 01/23/25 09:00 01/23/25 08:47 Thiamine 100 Mg Tablet PO 100 mg DAILY FRANK Administration Tramadol HCl 50 mg 01/22/25 20:34 01/23/25 09:58 Tramadol 50 Mg Tablet PO 50 mg Q4HR PRN Administration Moderate Pain (Level 4-6) Objective Vital Signs/Intake & Output Reviewed Vital Signs: Yes Vital Signs: Vital Signs x48h Temp Pulse Resp BP Pulse Ox 01/23/25 14:00 55 L 9 L 99/61 97 01/23/25 13:00 60 13 107/69 95 01/23/25 12:00 35.2 C L 64 24 117/74 97 01/23/25 11:00 64 13 117/74 95 01/23/25 10:00 62 10 L 107/65 95 01/23/25 09:00 69 13 106/64 95 Intake & Output: Intake & Output 01/20/25 01/21/25 01/22/25 01/23/25 23:59 23:59 23:59 23:59 Intake Total 2351 / 2351 4940 / 4940 3051 / 3051 2774 / 2774 Output Total 415 / 415 2640 / 2640 2263 / 2263 1223 / 1223 Balance 1936 / 1936 2300 / 2300 788 / 788 1551 / 1551 Weight (kg) 45 kg 44 kg 43 kg Objective General Appearance: positive No acute distress, Alert and Other (appears older than stated age, underweight) Eyes Bilateral: positive Normal inspection, PERRL, EOMI and Conjunctivae nml ENT: positive ENT inspection nml, Pharynx nml and No signs of dehydration Neck: positive Nml inspection, Thyroid nml and No JVD Respiratory: positive Chest non-tender, No respiratory distress and Breath sounds nml Cardiovascular: positive Regular rate & rhythm, No murmur and Other (Has episodes of bradycardia when she sleeps) Abdomen: positive Non-tender, No organomegaly and Other (ostomy bag in place) Back: positive Nml inspection Skin: positive Color nml, No rash, Warm and Dry Extremities: positive Non-tender, Full ROM, Nml appearance and No pedal edema Neurologic/Psychiatric: positive Oriented x3, Mood/affect nml and Other (slow to respond) Lab Results 01/23/25 11:50 01/23/25 04:20 Other Labs: Lab Results x24hrs 01/23/25 01/23/25 01/23/25 Range/Units 11:57 11:50 09:02 WBC (4.8-10.8) x10^3/uL RBC 2.45 L (4.20-5.40) 10^6/uL Hgb 7.5 L (12.0-16.0) g/dL Hct 22.1 L (37.0-47.0) % MCV (81.0-99.0) fL MCH (27.0-31.0) pg MCHC (32.0-36.0) g/dL RDW (12.0-15.0) % Plt Count (130-450) 10^3/uL MPV (7.9-10.8) fL Reticulocyte % (Auto) 0.71 (0.5-2.3) % Neut # (Auto) Lymph # (Auto) [place] # (Auto) Eos # (Auto) Baso # (Auto) Absolute Nucleated RBC Total Counted Band Neuts % (Manual) (0 - 10) % Abnorm Lymph % (Manual) % Nucleated RBC % Neutrophils # (Manual) (1.5-6.6) 10^3/uL Lymphocytes # (Manual) (1.5-3.5) 10^3/uL Monocytes # (Manual) (0.0-1.0) 10^3/uL Eosinophils # (Manual) (0-0.7) 10^3/uL Basophils # (Manual) (0-0.1) 10^3/uL Differential Comment Platelet Estimate (NORMAL) Platelet Morphology (NORMAL) RBC Morph Micro Appear (NORMAL) Absolute Retic 0.017 L (0.020-0.110) 10^6/uL VBG pH (7.31-7.41) Ionized Calcium (1.09-1.30) mmol/L Sodium (135-145) mmol/L Potassium (3.5-4.5) mmol/L Chloride (101-111) mmol/L Carbon Dioxide (21-32) mmol/L Anion Gap (6-13) BUN (6-20) mg/dL Creatinine (0.6-1.3) mg/dL Estimated GFR (MDRD) (>89) Glucose (74-104) mg/dL POC Whole Bld Glucose 82 (70-100) mg/dL Estimat Average Glucose (70-100) mg/dL Hemoglobin A1c % (4.27-6.07) % Calcium (8.5-10.3) mg/dL Phosphorus (2.5-5.0) mg/dL Magnesium (1.7-2.3) mg/dL Iron 106 (50-212) ug/dL TIBC 155 L (250-450) ug/dL % Saturation 68 H (20-50) % Transferrin 111 L (203-362) mg/dL Ferritin 584.4 H (11.0-306.8) ng/mL Lactate Dehydrogenase 118 L (140-271) IU/L Vitamin B12 1769 H (180-914) pg/mL Random Cortisol 19.7 ug/dL Stl C. cayetanensis PCR (Not Detected) Stool Rotavirus A PCR (Not Detected) Stl Adenov F 40/41 PCR (Not Detected) Stool Astrovirus (PCR) (Not Detected) Stool Campylobacter PCR (Not Detected) Stl C. diff Tox A/B PCR (Not Detected) Stool Cryptosporidium PCR (Not Detected) Stl Sh Tox Pr E STEC PCR (Not Detected) Stool E coli O157 PCR (Not Detected) Stl Enterotoxigenic E PCR (Not Detected) Stool EPEC (PCR) (Not Detected) Stl E. histolytica PCR (Not Detected) Stool Giardia Lamblia PCR (Not Detected) Stl P. shigelloides PCR (Not Detected) Stool Salmonella PCR (Not Detected) Stool Sapovirus (PCR) (Not Detected) Stl Shigella/EIEC PCR (Not Detected) St Y.enterocolitica PCR (Not Detected) Stool Vibrio (PCR) (Not Detected) Stl Vibrio cholerae PCR (Not Detected) Stl Enteroaggr Ecoli PCR (Not Detected) Stl Norovirus GI/GII PCR (Not Detected) 01/23/25 01/23/25 01/22/25 Range/Units 08:51 04:20 Unknown WBC 3.4 L (4.8-10.8) x10^3/uL RBC 2.35 L (4.20-5.40) 10^6/uL Hgb 7.0 L* (12.0-16.0) g/dL Hct 21.2 L (37.0-47.0) % MCV 90.2 (81.0-99.0) fL MCH 29.8 (27.0-31.0) pg MCHC 33.0 (32.0-36.0) g/dL RDW 15.6 H (12.0-15.0) % Plt Count 87 L (130-450) 10^3/uL MPV 9.9 (7.9-10.8) fL Reticulocyte % (Auto) (0.5-2.3) % Neut # (Auto) Not Reportable Lymph # (Auto) Not Reportable [place] # (Auto) Not Reportable Eos # (Auto) Not Reportable Baso # (Auto) Not Reportable Absolute Nucleated RBC Not Reportable Total Counted 100 Band Neuts % (Manual) 14 H (0 - 10) % Abnorm Lymph % (Manual) 0 % Nucleated RBC % Not Reportable Neutrophils # (Manual) 2.8 (1.5-6.6) 10^3/uL Lymphocytes # (Manual) 0.4 L (1.5-3.5) 10^3/uL Monocytes # (Manual) 0.0 (0.0-1.0) 10^3/uL Eosinophils # (Manual) 0.2 (0-0.7) 10^3/uL Basophils # (Manual) 0.0 (0-0.1) 10^3/uL Differential Comment MANUAL DIFFERENTIAL Platelet Estimate DECREASED (<130,000) (NORMAL) Platelet Morphology NORMAL APPEARANCE (NORMAL) RBC Morph Micro Appear NORMAL APPEARANCE (NORMAL) Absolute Retic (0.020-0.110) 10^6/uL VBG pH 7.351 (7.31-7.41) Ionized Calcium 1.34 H (1.09-1.30) mmol/L Sodium 139 (135-145) mmol/L Potassium 3.7 (3.5-4.5) mmol/L Chloride 115 H (101-111) mmol/L Carbon Dioxide 21 (21-32) mmol/L Anion Gap 3.0 L (6-13) BUN 11 (6-20) mg/dL Creatinine 0.8 (0.6-1.3) mg/dL Estimated GFR (MDRD) 72 L (>89) Glucose 85 (74-104) mg/dL POC Whole Bld Glucose 68 (70-100) mg/dL Estimat Average Glucose 131 H (70-100) mg/dL Hemoglobin A1c % 6.2 H (4.27-6.07) % Calcium 8.7 (8.5-10.3) mg/dL Phosphorus 1.9 L (2.5-5.0) mg/dL Magnesium 3.3 H (1.7-2.3) mg/dL Iron (50-212) ug/dL TIBC (250-450) ug/dL % Saturation (20-50) % Transferrin (203-362) mg/dL Ferritin (11.0-306.8) ng/mL Lactate Dehydrogenase (140-271) IU/L Vitamin B12 (180-914) pg/mL Random Cortisol ug/dL Stl C. cayetanensis PCR Not Detected (Not Detected) Stool Rotavirus A PCR Not Detected (Not Detected) Stl Adenov F 40/41 PCR Not Detected (Not Detected) Stool Astrovirus (PCR) Not Detected (Not Detected) Stool Campylobacter PCR Not Detected (Not Detected) Stl C. diff Tox A/B PCR Not Detected (Not Detected) Stool Cryptosporidium PCR Not Detected (Not Detected) Stl Sh Tox Pr E STEC PCR Not Detected (Not Detected) Stool E coli O157 PCR Not applicable (Not Detected) Stl Enterotoxigenic E PCR Not Detected (Not Detected) Stool EPEC (PCR) Not Detected (Not Detected) Stl E. histolytica PCR Not Detected (Not Detected) Stool Giardia Lamblia PCR Not Detected (Not Detected) Stl P. shigelloides PCR Not Detected (Not Detected) Stool Salmonella PCR Not Detected (Not Detected) Stool Sapovirus (PCR) Not Detected (Not Detected) Stl Shigella/EIEC PCR Not Detected (Not Detected) St Y.enterocolitica PCR Not Detected (Not Detected) Stool Vibrio (PCR) Not Detected (Not Detected) Stl Vibrio cholerae PCR Not Detected (Not Detected) Stl Enteroaggr Ecoli PCR Not Detected (Not Detected) Stl Norovirus GI/GII PCR Detected A (Not Detected) 01/22/25 01/22/25 01/22/25 Range/Units 22:10 20:19 16:45 WBC (4.8-10.8) x10^3/uL RBC (4.20-5.40) 10^6/uL Hgb (12.0-16.0) g/dL Hct (37.0-47.0) % MCV (81.0-99.0) fL MCH (27.0-31.0) pg MCHC (32.0-36.0) g/dL RDW (12.0-15.0) % Plt Count (130-450) 10^3/uL MPV (7.9-10.8) fL Reticulocyte % (Auto) (0.5-2.3) % Neut # (Auto) Lymph # (Auto) [place] # (Auto) Eos # (Auto) Baso # (Auto) Absolute Nucleated RBC Total Counted Band Neuts % (Manual) (0 - 10) % Abnorm Lymph % (Manual) % Nucleated RBC % Neutrophils # (Manual) (1.5-6.6) 10^3/uL Lymphocytes # (Manual) (1.5-3.5) 10^3/uL Monocytes # (Manual) (0.0-1.0) 10^3/uL Eosinophils # (Manual) (0-0.7) 10^3/uL Basophils # (Manual) (0-0.1) 10^3/uL Differential Comment Platelet Estimate (NORMAL) Platelet Morphology (NORMAL) RBC Morph Micro Appear (NORMAL) Absolute Retic (0.020-0.110) 10^6/uL VBG pH (7.31-7.41) Ionized Calcium (1.09-1.30) mmol/L Sodium (135-145) mmol/L Potassium (3.5-4.5) mmol/L Chloride (101-111) mmol/L Carbon Dioxide (21-32) mmol/L Anion Gap (6-13) BUN (6-20) mg/dL Creatinine (0.6-1.3) mg/dL Estimated GFR (MDRD) (>89) Glucose (74-104) mg/dL POC Whole Bld Glucose 84 73 (70-100) mg/dL Estimat Average Glucose (70-100) mg/dL Hemoglobin A1c % (4.27-6.07) % Calcium (8.5-10.3) mg/dL Phosphorus (2.5-5.0) mg/dL Magnesium 1.4 L (1.7-2.3) mg/dL Iron (50-212) ug/dL TIBC (250-450) ug/dL % Saturation (20-50) % Transferrin (203-362) mg/dL Ferritin (11.0-306.8) ng/mL Lactate Dehydrogenase (140-271) IU/L Vitamin B12 (180-914) pg/mL Random Cortisol ug/dL Stl C. cayetanensis PCR (Not Detected) Stool Rotavirus A PCR (Not Detected) Stl Adenov F 40/41 PCR (Not Detected) Stool Astrovirus (PCR) (Not Detected) Stool Campylobacter PCR (Not Detected) Stl C. diff Tox A/B PCR (Not Detected) Stool Cryptosporidium PCR (Not Detected) Stl Sh Tox Pr E STEC PCR (Not Detected) Stool E coli O157 PCR (Not Detected) Stl Enterotoxigenic E PCR (Not Detected) Stool EPEC (PCR) (Not Detected) Stl E. histolytica PCR (Not Detected) Stool Giardia Lamblia PCR (Not Detected) Stl P. shigelloides PCR (Not Detected) Stool Salmonella PCR (Not Detected) Stool Sapovirus (PCR) (Not Detected) Stl Shigella/EIEC PCR (Not Detected) St Y.enterocolitica PCR (Not Detected) Stool Vibrio (PCR) (Not Detected) Stl Vibrio cholerae PCR (Not Detected) Stl Enteroaggr Ecoli PCR (Not Detected) Stl Norovirus GI/GII PCR (Not Detected) Sepsis Event Note (H) Evaluation Current Stage of Sepsis: Septic shock Possible source of Sepsis: positive Unknown Sepsis Criteria Sepsis Criteria: Recorded Temperature greater than 38.3C or Less than 36C, BIOENGINEER: altered consciousness (unrelated to primary neuro pathology) and MAP less than 65 mmHg Assessment/Plan Problem List (1) Encephalopathy acute: Impression: Patient presented due to worsening confusion, lethargy. Likely due to hypoglycemia, hypovolemic shock due to decreased P.O. intake as well as repeated episodes of nausea/emesis at home. Abdomen/pelvis CT done on admission shows no acute inflammatory process, no bowel obstruction. 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 Likely hypovolemic shock in setting of decreased p.o. intake, as well as GI losses. Currently requiring Levophed to maintain MAPs greater than 65. Weaning down. Was started on linezolid, as well as cefepime to rule out any septic causes. Will DC at this time. White count within normal limits, patient is afebrile. Chest x-ray shows mild pulmonary vascular congestion, but no pneumonia. Abdomen/pelvis CT shows no signs of infection. Urine is negative for any infection as well. 01/22/2025: MRI brain with no acute changes. She continues to require low doses of Levophed, is off intermittently. I believe this is still hypovolemia. I have changed her fluids to D5 LR to combat her rising chloride level and to help with her NAGMA. Her reported to nursing staff that he is home with severe diarrhea, so I ordered a stool PCR panel 01/23/2025: Resolved (2) Hypoglycemia: Impression: Hypoglycemia has improved somewhat but is still volatile. Glucose was 72 on a.m. labs. I am continuing IV fluids with dextrose as described above (3) Shock: Impression: Likely hypovolemic shock due to GI losses and decreased P.O. intake. Continue IVF at this time. Her mentation improved before Dobbhoff could be placed. Encouraging p.o. intake. I am continuing Levophed. If she does not wean off of Levophed by tomorrow, will start midodrine 01/23/2025: Her Levophed was stopped overnight. She continues to have soft blood pressures. Given her soft blood pressures in setting of viral diarrhea requiring IV fluid replacement, on top of her overall brittle health with frequent readmissions, I will be keeping her 1 more night to ensure that she can have adequate oral intake. Her hypovolemia was likely secondary to norovirus infection exacerbating and already poor p.o. intake. I will be starting Megace 400 mg p.o. daily For appetite stimulation (4) Acute hyperkalemia: Impression: Potassium 3.7 today (5) History of colostomy: Impression: Right-sided colostomy. Nursing reports change in color/consistency today as well as reporting diarrhea. Her stool panel came back positive for norovirus (6) Hypertension: Impression: I am continuing to hold her amlodipine and losartan as she is on Levophed now Qualifiers: Hypertension type: primary hypertension Qualified Code(s): I10 - Essential (primary) hypertension (7) Ulcerative colitis, chronic: Impression: Stable, not in acute flare at this time. Qualifiers: Ulcerative colitis location: unspecified ulcerative colitis location D igestive disease complication type: without complication Qualified Code(s): K 51.90 - Ulcerative colitis, unspecified, without complications
[2025-01-23 17:05] LABS: POTASSIUM 3.7 mmol/L (3.5-4.5)
[2025-01-23 17:10] LABS: PHOSPHORUS 2.7 mg/dL (2.5-5.0)
[2025-01-23] MEDS: MEGESTROL 400 MG/10 ML UDC PO SCH (17:41)
[2025-01-24 07:32] LABS: BASOPHILS % (AUTO) 1.1 %; EOSINOPHILS % (AUTO) 4.6 %; HGB - HEMOGLOBIN 7.7 g/dL (12.0-16.0); MEAN CORPUSCULAR HGB CONC 33.5 g/dL (32.0-36.0); MEAN CORPUSCULAR VOLUME 89.5 fL (81.0-99.0); MEAN PLATELET VOLUME 10.1 fL (7.9-10.8); NEUTROPHILS % (AUTO) 68.6 %; PLT - PLATELET COUNT 97 10^3/uL (130-450); RED BLOOD COUNT 2.57 10^6/uL (4.20-5.40); RED CELL DISTRIBUTION WIDTH 15.6 % (12.0-15.0); WHITE BLOOD COUNT 3.5 x10^3/uL (4.8-10.8)
[2025-01-24 07:34] LABS: CALCIUM, IONIZED 1.33 mmol/L (1.09-1.30); VBG PH 7.352 (7.31-7.41)
[2025-01-24 07:36] LABS: ABNORMAL LYMPHS % (MANUAL) 0 %
[2025-01-24 07:42] VITALS: TEMP 97.2
[2025-01-24 07:42] LABS: CALCIUM 8.8 mg/dL (8.5-10.3); CREATININE 0.7 mg/dL (0.6-1.3); MAGNESIUM 1.7 mg/dL (1.7-2.3); PHOSPHORUS 2.6 mg/dL (2.5-5.0)
[2025-01-24 08:04] LABS: BAND NEUTROPHILS % (MANUAL) 6 %; DIFFERENTIAL COMMENT MANUAL DIFFERENTIAL; EOSINOPHILS # (MANUAL) 0.1 10^3/uL (0-0.7); LYMPHOCYTES # (MANUAL) 0.6 10^3/uL (1.5-3.5); LYMPHOCYTES % (MANUAL) 18 %; MONOCYTES # (MANUAL) 0.1 10^3/uL (0.0-1.0); NEUTROPHILS # (MANUAL) 2.7 10^3/uL (1.5-6.6); PLATELET ESTIMATE, MANUAL DECREASED (<130,000) (NORMAL); PLATELET MORPHOLOGY NORMAL APPEARANCE (NORMAL); RBC MORPHOLOGY (MULTIPLE) NORMAL APPEARANCE (NORMAL); WBC MORPHOLOGY (MULTIPLE) NORMAL APPEARANCE (NORMAL)
[2025-01-24] MEDS ORDERED: cefTRIAXone 1 GM VIAL IVP STA (11:21)
[2025-01-24 11:29] VITALS: BP 140/76; O2SAT 99
[2025-01-24] MEDS: cephALEXin 500 MG CAPSULE PO STA (12:34)
--- NOTE | 2025-01-24 14:08 | Discharge Summary ---
Discharge Summary Admit Date: 01/20/25 Discharge Date: 01/24/25 Discharging Provider: Beto Price Primary Care Provider: Naye Reyes Code Status: Attempt Resuscitation DIAGNOSES Admission Diagnoses: Shock, septic Acute delirium Acute hyperkalemia Crohn's disease Discharge Diagnoses with Status of Each Condition: Acute metabolic encephalopathyresolved Hypoglycemiaresolved Hypovolemic shockresolved Acute deliriumresolved Acute hyperkalemiaresolved Crohn diseasechronic Colostomy in placechronic Hypertensionchronic Ulcerative colitis, chronicchronic HPI History of Present Illness: 65-year-old female who presents to the emergency department with complaints of altered mental status. Apparently went in to see her primary care in [place] today and was told to come to the emergency department due to altered mental status. She has a history of ulcerative colitis and has an ostomy in place. Her noted for several days decreased ostomy output and abdominal swelling. She did have some episodes of nausea and vomiting but this is since resolved and she has had good ostomy output today. Recent admission to [facility] with transfer to [facility] neuro ICU for delirium which resulted in seizure and intubation. I have been able to review the records and she was not discharged home on any antiseizure medication. Since that time she has had an admission with some hypoglycemia and it seems that she has frequent episodes of hypoglycemia at home. Her is trying to combat this with oral glucose which seems to work most of the time. Apparently, on the way to the hospital she had some episodes of bradycardia with heart rate into the low 30s with a rhythm of atrial fibrillation. Since she has been here she has had heart rates briefly into the high 40s but overall normal with some hypotension. Central line has been placed in the emergency department and as I am seeing her she is on Levophed. She has not had any hypoxia. Her denies any fever cold or cough at home. She is not having any pain or burning on urination according to her . She is unable to participate in history. For imaging she has had a chest x-ray which shows some mild pulmonary congestion but no focal infiltrate. A CT of her abdomen pelvis is essentially negative. Head CT also negative. Her urine does not show any signs of infection and her lactate is negative at 0.8. HOSPITAL COURSE Hospital Course: She was started on aggressive IV fluid resuscitation with improvement in her mentation. Due to lack of obvious infectious source, antibiotics were discontinued and she was treated for dehydration and electrolyte derangements. She continued to improve with IV fluid resuscitation only and weaned off of Levophed. She reported changes in her stool characteristics, so stool PCR was sent off which was positive for norovirus. She was held overnight last night to ensure that she could maintain adequate oral intake. She is being discharged home with her , and encouraged to follow-up with her primary care provider regarding ongoing management. At time of discharge, a rash was noted on her right rice. Negative Homans' sign, but rice was warm to the touch. I am sending her home with 5-day course of Keflex She experienced episodes of bradycardia while asleep, so I have discontinued her carvedilol ALLERGIES Allergies Allergy/AdvReac Type Severity Reaction Status Date / Time Penicillins Allergy Anaphylaxis Verified 01/20/25 15:17 vancomycin Allergy Rash Verified 01/20/25 15:17 methocarbamol AdvReac Dizziness Verified 01/20/25 15:17 MEDICATIONS Ambulatory Orders Medication Instructions Recorded Confirmed amlodipine 5 mg tablet 5 mg PO DAILY 06/24/24 01/21/25 sodium zirconium cyclosilicate 10 10 g PO DAILY #30 ea 10/27/24 01/21/25 gram oral powder packet (Lokelma) cholecalciferol (vitamin D3) 25 25 mcg PO DAILY 01/08/25 01/21/25 mcg (1,000 unit) capsule (Vitamin D3) levothyroxine 25 mcg tablet 25 mcg PO DAILY 01/08/25 01/21/25 thiamine mononitrate (vit B1) 100 100 mg PO DAILY 01/08/25 01/21/25 mg tablet sodium chloride 1,000 mg soluble 1,000 mg PO BID 01/09/25 01/21/25 tablet cephalexin 500 mg capsule 500 mg PO QID 5 days #20 caps 01/24/25 megestrol 400 mg/10 mL (10 mL) 400 mg (10 mL) PO DAILY 30 days 01/24/25 oral suspension #300 mL PHYSICAL EXAM AT DISCHARGE General Appearance: positive No acute distress and Alert Eyes Bilateral: positive Normal inspection and PERRL ENT: positive ENT inspection nml Neck: positive Nml inspection Respiratory: positive Chest non-tender Cardiovascular: positive Regular rate & rhythm Peripheral Pulses: positive 2+ Abdomen: positive Non-tender Back: positive Nml inspection Skin: positive Other (Redness and warmth over right chin without fluctuance) Extremities: positive Non-tender Neurologic/Psychiatric: positive Oriented x3 LABS 01/24/25 07:18 01/24/25 07:18 SEPSIS Current Stage of Sepsis: Septic shock Possible source of Sepsis: Unknown Sepsis Criteria: Recorded Temperature greater than 38.3C or Less than 36C, PROJECT MANAGEMENT DIRECTOR: altered consciousness (unrelated to primary neuro pathology) and MAP less than 65 mmHg FOLLOW UP Follow Up: With PCP TIME SPENT Time Spent in Discharge (Minutes): 25 Discharge Plan Discharge Patient Disposition: 01 Home, Self Care Condition: Poor Medically Cleared Date:: 01/24/25 Prescriptions: New megestrol 400 mg/10 mL (10 mL) Suspension 400 mg PO DAILY 30 Days Qty: 300 0RF cephalexin 500 mg capsule 500 mg PO QID 5 Days Qty: 20 0RF Continued Lokelma 10 gram powder in packet 10 g PO DAILY Qty: 30 2RF thiamine mononitrate (vit B1) 100 mg tablet 100 mg PO DAILY cholecalciferol (vitamin D3) [Vitamin D3] 25 mcg (1,000 unit) capsule 25 mcg PO DAILY levothyroxine 25 mcg tablet 25 mcg PO DAILY Patient Comments: take 1 tablet by mouth every morning ON AN EMPTY STOMACH *WAIT 1 ... (REFER TO PRESCRIPTION NOTES). sodium chloride 1,000 mg Tablet,Soluble 1,000 mg PO BID Held amlodipine 5 MG tablet 5 mg PO DAILY Hold Instructions: Resume on 01/31/25. Please keep a record of blood pressure, hold blood pressure meds until blood pressure sustains higher than 140/90 Patient Comments: take 1 tablet by mouth once daily Discontinued carvedilol 6.25 mg tablet 3.125 mg PO BID Patient Comments: unsure on dose Rx Instructions: must administer with a meal/food Activity Restrictions: No Restrictions Diet: Regular Health Concerns: You came into the hospital with altered mental status and a very low blood pressure. You were found to have norovirus, which caused an increase in fluid loss in your stool. The treatment for norovirus is largely supportive care, so you did improve after IV fluid resuscitation. I held you for an additional day just to make sure your blood pressure was stable on oral intake only. Today, he reported a rash on your leg. There was warmth and pain on the top of your leg, so I am not concerned about blood clot. I am sending you home with a 5-day course of an antibiotic called Keflex. This is in the same drug family as the cefepime you were on when you came into the hospital. I would like for you to take that 4 times a day until the bottle is empty. I am also ordering a medication called Werner Doyle. This has been shown in some patients to increase appetite. Please take it until otherwise directed by your primary care provider. I would like for you to hold your blood pressure medicines. Please take your blood pressure daily and keep a record of it. When it sustains greater than 140/90, you can restart your amlodipine. You had some low heart rates while you were in the hospital, so I would recommend stopping your carvedilol until otherwise directed by your primary care provider. I would recommend that you have rapid follow-up with your PCP to determine further care Print Language: Peruvian Patient Instructions: Norovirus Stand Alone Forms: PCP List
== END 2025-01-24 13:00 | disposition home or self-care (01) | DRG 871 ==
LOC: ED 14:57 → ICU 18:40 → MS2 01-23 17:59
PROVIDERS: ADMIT Physician Assistant Medical; ATTEND Physician Assistant Medical
DX: E87.20 Acidosis, unspecified; R21 Rash and other nonspecific skin eruption; R65.21 Severe sepsis with septic shock; R57.1 Hypovolemic shock; R00.1 Bradycardia, unspecified; E16.2 Hypoglycemia, unspecified; K51.90 Ulcerative colitis, unspecified, without complications; E87.1 Hypo-osmolality and hyponatremia; G93.41 Metabolic encephalopathy; A41.9 Sepsis, unspecified organism; Z79.890 Hormone replacement therapy; Z79.899 Other long term (current) drug therapy; I95.9 Hypotension, unspecified; E87.5 Hyperkalemia; I10 Essential (primary) hypertension; Z93.3 Colostomy status; A08.11 Acute gastroenteropathy due to Norwalk agent

== ENCOUNTER 2025-02-17 19:15 | Inpatient (IN) ==
[2025-02-17] MEDS ORDERED: iohexoL-300 100 ML VIAL ONE (19:22)
[2025-02-17] MEDS: SODIUM CHLORIDE 0.9% 1,000 ML IV STA (19:42)
[2025-02-17 19:45] LABS: BASOPHILS % (AUTO) 0.7 %; EOSINOPHILS % (AUTO) 1.5 %; HCT - HEMATOCRIT 27.7 % (37.0-47.0); HGB - HEMOGLOBIN 9.1 g/dL (12.0-16.0); LYMPHOCYTES # (AUTO) 0.5 10^3/uL (1.5-3.5); LYMPHOCYTES % (AUTO) 19.9 %; MEAN CORPUSCULAR HEMOGLOBIN 30.4 pg (27.0-31.0); MEAN CORPUSCULAR HGB CONC 32.9 g/dL (32.0-36.0); MEAN CORPUSCULAR VOLUME 92.6 fL (81.0-99.0); MEAN PLATELET VOLUME 10.1 fL (7.9-10.8); MONOCYTES # (AUTO) 0.1 10^3/uL (0.0-1.0); MONOCYTES % (AUTO) 5.2 %; NEUTROPHILS # (AUTO) 1.9 10^3/uL (1.5-6.6); NEUTROPHILS % (AUTO) 72.3 %; NRBC ABSOLUTE COUNT (AUTO) 0.02 x10^3/uL; NUCLEATED RED BLOOD CELLS AUTO 0.7 /100WBC; PLT - PLATELET COUNT 198 10^3/uL (130-450); RED BLOOD COUNT 2.99 10^6/uL (4.20-5.40); RED CELL DISTRIBUTION WIDTH 20.4 % (12.0-15.0); WHITE BLOOD COUNT 2.7 x10^3/uL (4.8-10.8)
[2025-02-17 19:48] LABS: SLIDE REVIEW? Indicated
--- OUTSIDE RECORDS SUMMARY | 2025-02-17 19:52 | EXTERNAL MEDICAL SUMMARY RPT | Continuity of Care Document ---
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 Name Role Phone Unavailable Unavailable Unavailable Rui Chaves Unavailable Unavailable Allergies and Intolerances date description facility reaction severity 2024-11-30 01:06:34 [facility] (no reactio n) Severe 2024-11-30 01:06:19 [facility] (no reactio n) (no severity) 2024-11-30 01:06:50 [facility] (no reactio n) (no severity) Medications date description facility 2024-11-30 00:00 Amlodipine 2024-11-30 00:00 Citalopram 2024-11-30 00:00 Sodium Chloride 2024-11-30 00:00 Tramadol 2024-11-30 00:00 Naproxen Sodium Problems date description facility 2024-11-22 12:25 Spinal stenosis, lum bar region with neurogenic claudication [facility] 2024-11-25 13:18 Spinal stenosis, lum bar region with neurogenic claudication [facility] 2024-11-27 23:04 Hypoglycemia, unspecified [facility] 2024-11-27 23:04 Hypo-osmolality and hyponatremi a [facility] 2024-11-27 23:04 Encephalopathy, unspecified [facility] 2024-11-27 23:04 Ulcerative colitis, unspecified, without complications [facility] 2024-11-28 11:31 [facility]ogly[facility], [facility] 2024-11-28 11:31 Hypo-osmolality and hyponatremi a [facility] 2024-11-28 11:31 Encephalopathy, unspecified [facility] 2024-11-28 11:31 Ulcerative colitis, unspecified, without complications [facility] 2024-11-28 11:36 Hypoglycemia, unspecified [facility] 2024-11-28 11:36 Hypo-osmolality and hyponatremi a [facility] 2024-11-28 11:36 Encephalopathy, unspecified [facility] 2024-11-28 11:36 Ulcerative colitis, unspecified, without complications [facility] 2024-11-28 11:44 Hypoglycemia, unspecified [facility] 2024-11-28 11:44 Hypo-osmolality and hyponatremi a [facility] 2024-11-28 11:44 Encephalopathy, unspecified [facility] 2024-11-28 11:44 Ulcerative colitis, unspecified, without complications [facility] 2024-11-28 13:11 Hypoglycemia, unspecified [facility] 2024-11-28 13:11 Hypo-osmolality and hyponatremi a [facility] 2024-11-28 13:11 Encephalopathy, unspecified [facility] 2024-11-28 13:11 Ulcerative colitis, unspecified, without complications [facility] 2024-11-29 09:51 Altered mental status, unspecif ied [facility] 2024-11-29 09:51 Weakness [facility] 2024-11-30 00:00 Hyponatremia 2024-11-30 00:00 Altered mental status [facility] 2024-12-02 11:53 Spinal stenosis, lum bar region with neurogenic claudication [facility] 2024-12-04 07:18 Hypoglycemia, unspecified [facility] 2024-12-04 07:18 Hypo-osmolality and hyponatremi a [facility] 2024-12-04 07:18 Encephalopathy, unspecified [facility] 2024-12-04 07:18 Ulcerative colitis, unspecified, without complications [facility] 2024-12-04 07:18 Disorientation, unspecified [facility] 2024-12-19 15:17 Spinal stenosis, lum bar region with neurogenic claudication [facility] 2024-12-24 10:49 Other generalized ep ilepsy and epileptic syndromes, not [facility] 2024-12-30 09:53 Hypoglycemia, unspecified [facility] 2024-12-30 09:53 Unspecified convulsions [facility] 2025-01-01 10:37 Type 2 diabetes abimbola itus with hypoglycemia without coma [facility] 2025-01-01 11:31 Spinal stenosis, lum bar region with neurogenic claudication [facility] 2025-01-01 14:50 Altered mental status, unspecif ied [facility] 2025-01-01 14:51 Altered mental status, unspecif ied [facility] 2025-01-03 06:59 Type 2 diabetes abimbola itus with hypoglycemia without coma [facility] 2025-01-03 06:59 Disorientation, unspecified [facility] 2025-01-06 10:02 Essential (primary) hypertensio n [facility] 2025-01-06 10:20 Essential (primary) hypertensio n [facility] 2025-01-07 12:10 Type 2 diabetes abimbola itus with hypoglycemia without coma [facility] 2025-01-07 12:10 Disorientation, unspecified [facility] 2025-01-07 12:11 Hypoglycemia, unspecified [facility] 2025-01-07 12:11 Unspecified convulsions [facility] 2025-01-07 12:13 Altered mental status, unspecif ied [facility] 2025-01-07 12:14 Hypoglycemia, unspecified [facility] 2025-01-07 12:14 Hypo-osmolality and hyponatremi a [facility] 2025-01-07 12:14 Encephalopathy, unspecified [facility] 2025-01-07 12:14 Ulcerative colitis, unspecified, without complications [facility] 2025-01-07 12:14 Disorientation, unspecified [facility] 2025-01-07 12:16 Spinal stenosis, lum bar region with neurogenic claudication [facility] 2025-01-07 14:42 Spinal stenosis, lum bar region with neurogenic claudication [facility] [employer] 2025-01-08 07:06 Radiculopathy, lumbar region [facility] 2025-01-08 07:25 Hyperkalemia [facility] 2025-01-08 07:34 Hyperkalemia [facility] 2025-01-08 07:44 Altered mental status, unspecif ied [email or web address] [facility] 2025-01-08 07:44 Weakness [facility] 2025-01-08 07:48 Hypoglycemia, unspecified [facility] 2025-01-08 07:48 Hypo-osmolality and hyponatremi a [facility] 2025-01-08 07:48 Encephalopathy, unspecified [facility] 2025-01-08 07:48 Ulcerative colitis, unspecified, without complications [facility] 2025-01-08 07:48 Disorientation, unspecified [facility] 2025-01-08 07:53 Hypoglycemia, unspecified [facility] 2025-01-08 07:53 Unspecified convulsions [facility] 2025-01-08 07:54 Type 2 diabetes abimbola itus with hypoglycemia without coma [facility] 2025-01-08 07:54 Disorientation, unspecified [facility] 2025-01-08 07:55 Type 2 diabetes abimbola itus with hypoglycemia without coma [facility] 2025-01-08 07:55 Disorientation, unspecified [facility] 2025-01-08 07:56 Hypoglycemia, unspecified [facility] 2025-01-08 07:56 Unspecified convulsions [facility] 2025-01-08 07:57 Hypoglycemia, unspecified [facility] 2025-01-08 07:57 Hypo-osmolality and hyponatremi a [facility] 2025-01-08 07:57 Encephalopathy, unspecified [facility] 2025-01-08 07:57 Ulcerative colitis, unspecified, without complications [facility] 2025-01-08 07:57 Disorientation, unspecified [facility] 2025-01-08 11:28 Essential (primary) hypertensio [facility] 2025-01-08 23:51 Hypoglycemia, unspecified [facility] 2025-01-08 23:51 Essential (primary) hypertensio [facility] 2025-01-08 23:51 Disorientation, unspecified [facility] 2025-01-09 07:02 Hypoglycemia, unspecified [facility] 2025-01-09 07:02 Essential (primary) hypertensio n [facility] 2025-01-09 07:02 Disorientation, unspecified [facility] 2025-01-09 12:23 Hypoglycemia, unspecified [facility] 2025-01-09 12:23 Essential (primary) hypertensio n [facility] 2025-01-09 12:23 Disorientation, unspecified [facility] 2025-01-09 12:26 Hypoglycemia, unspecified [facility] 2025-01-09 12:26 Essential (primary) hypertensio n [facility] 2025-01-09 12:26 Disorientation, unspecified [facility] 2025-01-09 12:51 Hypoglycemia, unspecified [facility] 2025-01-09 12:51 Essential (primary) hypertensio n [facility] 2025-01-09 12:51 Disorientation, unspecified [facility] 2025-01-09 13:28 Hypoglycemia, unspecified [facility] 2025-01-09 13:28 Essential (primary) hypertensio n [facility] 2025-01-09 13:28 Disorientation, unspecified [facility] 2025-01-10 07:08 Radiculopathy, lumbar region [facility] 2025-01-10 07:09 Radiculopathy, lumbar region [facility] 2025-01-10 07:10 Hyperkalemia [facility] 2025-01-10 08:21 Hypoglycemia, unspecified [facility] 2025-01-10 08:21 Essential (primary) hypertensio n [facility] 2025-01-10 08:21 Disorientation, unspecified [facility] 2025-01-21 08:30 Hyperkalemia [facility] 2025-01-21 08:30 Crohn's disease, unspecified, w ithout complications [facility] 2025-01-21 08:30 Disorientation, unspecified [facility] 2025-01-21 08:30 Shock, unspecified [facility] 2025-01-21 08:34 Hyperkalemia [facility] 2025-01-21 08:34 Crohn's disease, unspecified, w ithout complications [facility] 2025-01-21 08:34 Disorientation, unspecified [facility] 2025-01-21 08:34 [facility], [facility] 2025-01-21 15:39 Thrombocytopenia, unspecified [facility] 2025-01-21 15:39 Type 2 diabetes abimbola itus with hypoglycemia without coma [facility] 2025-01-21 15:39 Hypoglycemia, unspecified [facility] 2025-01-21 15:39 Hyperkalemia [facility] 2025-01-21 15:39 Alcohol dependence with withdra wal, unspecified [facility] 2025-01-21 15:39 Alcohol use, unspecified, uncom plicated [facility] 2025-01-21 15:39 Encephalopathy, unspecified [facility] 2025-01-21 15:39 Essential (primary) hypertensio n [facility] 2025-01-21 15:39 Crohn's disease of l arge intestine without complications [facility] [employer] 2025-01-21 15:39 Crohn's disease, unspecified, w ithout complications [facility] 2025-01-21 15:39 Crohn's disease, uns pecified, with unspecified complications [facility] [employer] 2025-01-21 15:39 Ulcerative colitis, unspecified, without complications [facility] [employer] 2025-01-21 15:39 Intestinal malabsorption, unspe cified [facility] 2025-01-21 15:39 Acute cystitis without hematuri a [facility] [employer] 2025-01-21 15:39 Urinary tract infection, site n ot specified [facility] 2025-01-21 15:39 Generalized abdominal pain [facility] [employer] 2025-01-21 15:39 Nausea with vomiting, unspecifi ed [facility] [employer] 2025-01-21 15:39 Abdominal distension (gaseous) [facility] [employer] 2025-01-21 15:39 Disorientation, unspecified [facility] 2025-01-21 15:39 Altered mental status, unspecif ied [facility] [employer] 2025-01-21 15:39 Weakness [facility]21 15:39 Unspecified convulsions [facility] [employer] 2025-01-21 15:39 Shock, unspecified [facility] 2025-01-21 17:30 Hyperkalemia [facility] 2025-01-22 06:46 Hypoglycemia, unspecified [facility] 2025-01-22 06:46 Hyperkalemia [facility] 2025-01-22 06:46 Encephalopathy, unspecified [facility] 2025-01-22 06:46 Essential (primary) hypertensio n [facility] 2025-01-22 06:46 Crohn's disease, unspecified, w ithout complications [facility] 2025-01-22 06:46 Ulcerative colitis, unspecified, without complications [facility] 2025-01-22 06:46 Intestinal malabsorption, unspe cified [facility] 2025-01-22 06:46 Disorientation, unspecified [facility] 2025-01-22 06:46 Shock, unspecified [facility] 2025-01-23 06:07 Hypoglycemia, unspecified [facility] 2025-01-23 06:07 Hyperkalemia [facility] 2025-01-23 06:07 Encephalopathy, unspecified [facility] 2025-01-23 06:07 Essential (primary) hypertensio n [facility] 2025-01-23 06:07 Crohn's disease, unspecified, w ithout complications [facility] 2025-01-23 06:07 Ulcerative colitis, unspecified, without complications [facility] 2025-01-23 06:07 Intestinal malabsorption, unspe cified [facility] 2025-01-23 06:07 Disorientation, unspecified [facility] 2025-01-23 06:07 Shock, unspecified [facility] 2025-01-23 10:37 Altered mental status, unspecif ied [facility] 2025-01-23 10:43 Spinal stenosis, lum bar region with neurogenic claudication [facility] 2025-01-23 10:45 Spinal stenosis, lum bar region with neurogenic claudication [facility] 2025-01-23 18:00 Hypoglycemia, unspecified [facility] 2025-01-23 18:00 Hyperkalemia [facility] 2025-01-23 18:00 Encephalopathy, unspecified [facility] 2025-01-23 18:00 Essential (primary) hypertensio n [facility] 2025-01-23 18:00 Crohn's disease, unspecified, w ithout complications [facility] 2025-01-23 18:00 Ulcerative colitis, unspecified, without complications [facility] 2025-01-23 18:00 Intestinal malabsorption, unspe cified [facility] 2025-01-23 18:00 Disorientation, unspecified i [facility] 2025-01-23 18:00 Shock, unspecified [facility] 2025-01-24 11:24 Hypoglycemia, unspecified [facility] 2025-01-24 11:24 Hyperkalemia [facility] 2025-01-24 11:24 Encephalopathy, unspecified i [facility] 2025-01-24 11:24 Essential (primary) hypertensio n [facility] 2025-01-24 11:24 Crohn's disease, unspecified, w ithout complications [facility] 2025-01-24 11:24 Ulcerative colitis, unspecified, without complications [facility] 2025-01-24 11:24 Intestinal malabsorption, unspe cified [facility] 2025-01-24 11:24 Disorientation, unspecified [facility] 2025-01-24 11:24 Shock, unspecified [facility] 2025-01-24 11:45 Hypoglycemia, unspecified [facility] 2025-01-24 11:45 Hyperkalemia [facility] 2025-01-24 11:45 Encephalopathy, unspecified [facility] 2025-01-24 11:45 Essential (primary) hypertensio n [facility] 2025-01-24 11:45 Crohn's disease, unspecified, w ithout complications [facility] 2025-01-24 11:45 Ulcerative colitis, unspecified, without complications [facility] 2025-01-24 11:45 Intestinal malabsorption, unspe cified [facility] 2025-01-24 11:45 Disorientation, unspecified [facility] 2025-01-24 11:45 Shock, unspecified [facility] 2025-01-24 12:27 Hypoglycemia, unspecified [facility] 2025-01-24 12:27 Hyperkalemia [facility] 2025-01-24 12:27 Encephalopathy, unspecified [facility] 2025-01-24 12:27 Essential (primary) hypertensio n [facility] 2025-01-24 12:27 Crohn's disease, unspecified, w ithout complications [facility] 2025-01-24 12:27 Ulcerative colitis, unspecified, without complications [facility] 2025-01-24 12:27 Intestinal malabsorption, unspe cified [facility] 2025-01-24 12:27 Disorientation, unspecified [facility] 2025-01-24 12:27 Shock, unspecified [facility] 2025-01-24 13:27 Hypoglycemia, unspecified [facility] 2025-01-24 13:27 Hyperkalemia [facility] 2025-01-24 13:27 Encephalopathy, unspecified [facility] 2025-01-24 13[facility]27 [facility] 13[facility]27 Crohn's disease, unspecified, w ithout complications [facility] 2025-01-24 13:27 Ulcerative colitis, unspecified, without complications [facility] 2025-01-24 13:27 Intestinal malabsorption, unspe cified [facility] 2025-01-24 13:27 Disorientation, unspecified [facility] 2025-01-24 13:27 Shock, unspecified [facility] 2025-01-27 09:39 Periumbilical pain [facility] 2025-01-27 13:13 Sepsis, unspecified organism [facility] 2025-01-27 13:13 Hypoglycemia, unspecified [facility] 2025-01-27 13:13 Hyperkalemia [facility] 2025-01-27 13:13 Encephalopathy, unspecified [facility] 2025-01-27 13:13 Essential (primary) hypertensio n [facility] 2025-01-27 13:13 Crohn's disease, unspecified, w ithout complications [facility] 2025-01-27 13:13 Ulcerative colitis, unspecified, without complications [facility] 2025-01-27 13:13 Intestinal malabsorption, unspe cified [facility] 2025-01-27 13:13 Disorientation, unspecified [facility] 2025-01-27 13:13 Shock, unspecified [facility] 2025-01-28 10:48 Spinal stenosis, lum bar region with neurogenic claudication [facility] 2025-01-28 15:11 Cellulitis of right lower limb [facility] 2025-02-04 11:22 Cellulitis of unspecified part of limb [facility] 2025-02-04 11:33 Cellulitis of unspecified part of limb [facility] 2025-02-11 09:15 Hyperkalemia [facility] 2025-02-11 09:15 Cellulitis of unspecified part of limb [facility] 2025-02-17 07:34 Cellulitis of right lower limb [facility] Procedures date description facility 2024-11-29 00:00 Computed tomography of head or brain without contrast 2024-11-30 00:00 Computed tomography of head or brain without contrast 2024-11-29 00:00 X-ray of chest, single [facility] 2024-11-30 00:00 X-ray of chest, single view [facility] 2024-11-30 00:00 Complete Doppler echocardiograp [facility] 2024-11-30 00:00 PICC line placement [facility] 2024-11-29 00:00 US Abdomen limited [facility] Results/Labs test date facility value unit notes Result panel 1 UROBILINOGEN,URINE 2024-11-27 08:04 [facility] 0.2 (NORMAL) e.u./dl (missing) SPECIFIC GRAVITY,URINE 2024-11-27 08:04 [facility] 1.010 (missing) (missing) PH,URINE 2024-11-27 08:04 [facility] 6.0 ph (missing) CLARITY,URINE 2024-11-27 08:04 [facility] CLEAR (missing) (missing) COLOR,URINE 2024-11-27 08:04 [facility] LIGHT YELLOW (missing) URINE CATHETERIZED LEUKOCYTE ESTERASE, URINE 2024-11-27 08:04 [facility] NEGATIVE (missing) (missing) NITRITE,URINE 2024-11-27 08:04 [facility] NEGATIVE (missing) (missing) OCCULT BLOOD,URINE 2024-11-27 08:04 [facility] NEGATIVE (missing) (missing) BILIRUBIN,URINE 2024-11-27 08:04 [facility] NEGATIVE (missing) Bilirubin can be influenced by color interference. Please correlate positive results with clinical presentation GLUCOSE, URINE (UA) 2024-11-27 08:04 [facility] NEGATIVE mg/dl (missing) KETONES,URINE (UA) 2024-11-27 08:04 [facility] NEGATIVE mg/dl (missing) PROTEIN,URINE 2024-11-27 08:04 [facility] NEGATIVE mg/dl (missing) UR CULTURE IF IND 2024-11-27 08:04 [facility] NOT INDICATED (missing) (missing) URINE MICROSCOPIC INDICATED? 2024-11-27 08:04 [facility] NOT INDICATED (missing) (missing) Result panel 2 ABNORMAL LYMPHS % (MANUAL) 2024-11-27 08:34 [facility] 0 % (missing) BASOPHILS # (MANUAL) 2024-11-27 08:34 [facility] 0.0 10 3/ul (missing) EOSINOPHILS # (MANUAL) 2024-11-27 08:34 [facility] 0.2 10 3/ul (missing) MONOCYTES # (MANUAL) 2024-11-27 08:34 [facility] 0.2 10 3/ul (missing) LYMPHOCYTES # (MANUAL) 2024-11-27 08:34 [facility] 0.2 10 3/ul (missing) BILIRUBIN,TOTAL 2024-11-27 08:34 [facility] 0.4 mg/dl As of April 2023 testing method has changed, this may include reference ranges. CREATININE 2024-11-27 08:34 [facility] 0.5 mg/dl As of April 2023 testing method has changed, this may include reference ranges. RBC MORPHOLOGY (MULTIPLE) 2024-11-27 08:34 [facility] 1+ MICROCYTOSIS (missing ) (missing) ALBUMIN/GLOBULIN RATIO 2024-11-27 08:34 [facility] (missing) BAND NEUTROPHILS % (MANUAL) 2024-11-27 08:34 [facility] 10 % (missing) CALCIUM 2024-11-27 08:34 [facility] 10.0 mg/dl As of April 2023 testing method has changed, this may include reference ranges. TOTAL CELLS COUNTED 2024-11-27 08:34 [facility] 100 (missing ) (missing) GFR - MDRD 2024-11-27 08:34 [facility] 124 (missing ) Social History date description facility 2024-11-30 00:00 Unknown if ever smoked [facility] Vital Signs date measurement value units 2024-11-29 00:00 BMI 17.6 kg/m2 2024-11-29 00:00 height_metric 152.4 cm 2024-11-29 00:00 height_standard 60 in 2024-11-29 00:00 temperature_metric 37.17 C 2024-11-29 00:00 temperature_standard 98.9 F 2024-11-29 00:00 weight_metric 40.82 kg 2024-11-29 00:00 weight_standard 89.99 lb 2024-11-30 00:00 BP_diastolic 108 mmHg 2024-11-30 00:00 BP_diastolic 59 mmHg 2024-11-30 00:00 BP_systolic 122 mmHg 2024-11-30 00:00 BP_systolic 172 mmHg 2024-11-30 00:00 heart_rate 58 /min 2024-11-30 00:00 heart_rate 67 /min 2024-11-30 00:00 o2_saturation 97 % 2024-11-30 00:00 o2_saturation 99 % 2024-11-30 00:00 respiration_rate 19 /min 2024-11-30 00:00 respiration_rate 20 /min 2024-11-30 00:00 temperature_metric 36.44 C 2024-11-30 00:00 temperature_standard 97.6 F
[2025-02-17] MEDS: ONDANSETRON 4 MG/2 ML VIAL IVP STA (20:00)
[2025-02-17 20:01] LABS: ETOH - ETHANOL < 10.0 mg/dL; LIPASE 29 U/L (11-82)
[2025-02-17] MEDS: HYDROmorphone 1 MG/ML CARPUJECT IVP STA (20:02)
[2025-02-17 20:09] LABS: ALBUMIN 3.6 g/dL (3.2-5.5); ALBUMIN/GLOBULIN RATIO 1.1 (1.0-2.2); ALKALINE PHOSPHATASE 108 IU/L (42-121); ALT ALANINE AMINOTRANSFERASE 51 IU/L (10-60); AST ASPARTATE AMINOTRANSFERASE 34 IU/L (10-42); BILIRUBIN,TOTAL 0.3 mg/dL (0.2-1.0); BUN - BLOOD UREA NITROGEN 27 mg/dL (6-20); CALCIUM 9.5 mg/dL (8.5-10.3); CARBON DIOXIDE - CO2 22 mmol/L (21-32); CHLORIDE 103 mmol/L (101-111); CREATININE 0.5 mg/dL (0.6-1.3); GFR - MDRD 124 (>89); GLUCOSE 166 mg/dL (74-104); SODIUM 132 mmol/L (135-145); TOTAL PROTEIN 6.9 g/dL (6.4-8.9)
[2025-02-17 20:16] LABS: THYROID STIMULATING HORMONE 6.67 uIU/mL (0.34-5.60)
[2025-02-17 20:18] LABS: PLATELET ESTIMATE, MANUAL NORMAL (130-450,000) (NORMAL); PLATELET MORPHOLOGY NORMAL APPEARANCE (NORMAL)
[2025-02-17] MEDS: iohexoL-300 100 ML VIAL IVP ONE (20:55)
--- NOTE | 2025-02-17 21:13 | CT Report ---
PROCEDURE: CT Abdomen/Pelvis W INDICATIONS: IV only, abd pain CONTRAST: 100 ML OMNI TECHNIQUE: After the administration of intravenous contrast, a CT scan of the abdomen and pelvis was performed. Images were recorded and evaluated at appropriate window settings. Reformats: coronal and sagittal. F or radiation dose reduction, the following was used: automated exposure control, adjustment of mA and /or kV according to patient size. COMPARISON: 01/20/2025 FINDINGS: Image quality: Diagnostic. Lower chest: Patchy groundglass nodules and linear volume loss in the lung bases. Findings are likely post infectious/inflammatory. Liver: No solid mass. Gallbladder: No radiopaque stones or wall thickening. Biliary tree: No intrahepatic or extrahepatic dilation, accounting for age. Spleen: No splenomegaly. Pancreas: No pancreatic ductal dilation. Adrenals: No adrenal nodule. Kidneys and ureters: No hydronephrosis. No renal cystic lesion which requires follow up. No solid mas s. Stomach, bowel and peritoneum: No gastric or small bowel dilation. No abnormal wall thickening. No pa thologic free fluid. Ileostomy with right lower quadrant ileostomy. Small parastomal hernia containin g a short segment of small bowel. At the distal end of the ileostomy, there is a 5.6 cm segment of mo derate small bowel wall thickening with wall calcification. Wall thickness measures 5 mm. No evidence of penetrating disease. Lymph nodes: No central or retroperitoneal adenopathy. Vessels: No infrarenal aortic aneurysm. Patent portal vein. PELVIS Reproductive organs: Unremarkable. Bladder: No abnormal wall thickening. Pelvic lymph nodes: No pelvic adenopathy by size criteria. Bones: No aggressive osseous abnormality. Other: No significant ventral or inguinal hernia. 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 There is a short segment of ileal wall thickenin g just proximal to the ileostomy, located within a parastomal hernia. Moderate wall thickening with w all stratification but no evidence of penetrating disease. Post infectious/inflammatory process of the lung bases. Reviewed by: Tommy Diaz MD on 02/17/2025 9:12 PM PDT Approved by: Tommy Diaz MD on 02/17/2025 9:12 PM PDT Station ID: [id number]
--- NOTE | 2025-02-17 21:22 | ED Physician Documentation ---
History of Present Illness Stated complaint Stated Complaint: ABD PX Chief complaint Chief Complaint: Abd Pain History obtained from History obtained from: Patient and EMS Meds/Allgy Home Medications Ambulatory Orders Medication Instructions Recorded Confirmed amlodipine 5 mg tablet 5 mg PO DAILY 06/24/24 02/04/25 sodium zirconium cyclosilicate 10 10 g PO DAILY #30 ea 10/27/24 02/04/25 gram oral powder packet (Lokelma) cholecalciferol (vitamin D3) 25 25 mcg PO DAILY 01/08/25 02/04/25 mcg (1,000 unit) capsule (Vitamin D3) levothyroxine 25 mcg tablet 25 mcg PO DAILY 01/08/25 02/04/25 thiamine mononitrate (vit B1) 100 100 mg PO DAILY 01/08/25 02/04/25 mg tablet sodium chloride 1,000 mg soluble 1,000 mg PO BID 01/09/25 02/04/25 tablet megestrol 400 mg/10 mL (10 mL) 400 mg (10 mL) PO DAILY 30 days 01/24/25 02/04/25 oral suspension #300 mL cefuroxime axetil 250 mg tablet 250 mg PO BID #10 tabs 02/04/25 cefuroxime axetil 500 mg tablet 500 mg PO BID 02/04/25 02/04/25 multivitamin (Multiple Vitamins 1 tab PO DAILY 02/04/25 02/04/25 tablet) mupirocin 2 % topical ointment 1 applic topical BID #15 grams 02/04/25 (Centany) naproxen sodium 220 mg tablet 220 mg PO BID PRN pain 02/04/25 02/04/25 (Aleve) Allergies Allergies Allergy/AdvReac Type Severity Reaction Status Date / Time Penicillins Allergy Anaphylaxis Verified 01/20/25 15:17 vancomycin Allergy Rash Verified 01/20/25 15:17 methocarbamol AdvReac Dizziness Verified 01/20/25 15:17 PFS Active Problems All Active Problems (Updated 02/04/25 @ 11:21 by Leonardo Ca MD) Cellulitis, leg (Acute) Hyperkalemia (Acute) Cellulitis of right leg (Acute) Cellulitis (Acute) Hypoglycemia (Acute) Hypertension (Acute) Hyperkalemia (Acute) Malabsorption (Acute) Witnessed seizure-like activity (Acute) Chronic hyponatremia (Acute) Dehydration (Acute) Chronic hyperkalemia (Acute) Depression (Acute) Hyperkalemia (Acute) Hypokalemia (Acute) Weakness (Acute) Alcohol use (Acute) Thrombocytopenia (Acute) UTI (urinary tract infection) (Acute) Acute conjunctivitis (Acute) Medical History Medical History (Updated 02/04/25 @ 11:21 by Leonardo Ca MD) Crohn disease Ulcerative colitis, chronic Encephalopathy acute Surgical History Surgical History History of colostomy Social History Social History Smoking Status: Never smoker Second hand tobacco smoke exposure: No Do you dip or chew tobacco?: No Do you vape?: No Patient requests smoking cessation consult: No Initiate information on smoking cessation: No Living arrangement: At home Living Condition: With spouse/s.o. Relationship: Level: Independent Do you feel safe in your home environment?: Yes Suffered physical, verbal, emotional, or financial abuse?: No History of Abuse: No ETOH Use: Other Frequency: Occasional Substance Use: denies use Substance Use Details: Pt. used to be alcoholic but quit drinking 2 yrs. ago Are you sexually active?: No POLST Patient has POLST: No POLST Status: Full Code Exam Exam Vital Signs: Vital Signs x48h Temp Pulse Resp BP Pulse Ox 02/17/25 19:21 31.3 C L 57 L 20 145/100 H 99 02/17/25 19:17 88.4 C H 56 L 17 171/91 H 99 Results Vitals Vitals: Vital Signs - 24 hr 02/17/25 19:17 02/17/25 19:21 02/17/25 19:24 Temperature 88.4 C H 31.3 C L Temperature Source Rectal Rectal Pulse Rate 56 L 57 L Respiratory Rate 17 20 Blood Pressure 171/91 H 145/100 H O2 Saturation 99 99 Oxygen Delivery Method Room Air O2 Source Room air Room air Pain Intensity 6 02/17/25 20:02 Temperature Temperature Source Pulse Rate Respiratory Rate Blood Pressure O2 Saturation Oxygen Delivery Method O2 Source Pain Intensity 7 Oxygen O2 Source Room air Labs Labs: Laboratory Tests 02/17/25 02/17/25 19:36 19:36 WBC 2.7 L RBC 2.99 L Hgb 9.1 L Hct 27.7 L MCV 92.6 MCH 30.4 MCHC 32.9 RDW 20.4 H Plt Count 198 MPV 10.1 Neut # (Auto) 1.9 Lymph # (Auto) 0.5 L [place] # (Auto) 0.1 Eos # (Auto) 0.0 Baso # (Auto) 0.0 Absolute Nucleated RBC 0.02 Nucleated RBC % 0.7 Manual Slide Review Indicated Platelet Estimate NORMAL (130-450,000) Platelet Morphology NORMAL APPEARANCE RBC Morph Micro Appear 2+ ANISOCYTOSIS 1+ POIKILOCYTOSIS Sodium 132 L Potassium 5.0 H Chloride 103 Carbon Dioxide 22 Anion Gap 7.0 BUN 27 H Creatinine 0.5 L Estimated GFR (MDRD) 124 Glucose 166 H Lactic Acid 2.8 H Calcium 9.5 Total Bilirubin 0.3 AST 34 ALT 51 Alkaline Phosphatase 108 Total Protein 6.9 Albumin 3.6 Globulin 3.3 Albumin/Globulin Ratio 1.1 Lipase 29 TSH 6.67 H Free T4 Direct 0.83 Free T3 pg/mL 3.10 Ethyl Alcohol < 10.0 Discharge Plan Discharge Prescriptions: No Action amlodipine 5 MG tablet 5 mg PO DAILY Patient Comments: take 1 tablet by mouth once daily Lokelma 10 gram powder in packet 10 g PO DAILY Qty: 30 2RF thiamine mononitrate (vit B1) 100 mg tablet 100 mg PO DAILY cholecalciferol (vitamin D3) [Vitamin D3] 25 mcg (1,000 unit) capsule 25 mcg PO DAILY levothyroxine 25 mcg tablet 25 mcg PO DAILY Patient Comments: take 1 tablet by mouth every morning ON AN EMPTY STOMACH *WAIT 1 ... (REFER TO PRESCRIPTION NOTES). sodium chloride 1,000 mg Tablet,Soluble 1,000 mg PO BID megestrol 400 mg/10 mL (10 mL) Suspension 400 mg PO DAILY 30 Days Qty: 300 0RF cefuroxime axetil 500 mg tablet 500 mg PO BID Patient Comments: take 1 tablet by mouth twice a day for 7 days multivitamin [Multiple Vitamins] Tablet 1 tab PO DAILY naproxen sodium [Aleve] 220 mg tablet 220 mg PO BID PRN (Reason: pain) cefuroxime axetil 250 mg tablet 250 mg PO BID Qty: 10 0RF mupirocin [Centany] 2 % ointment 1 applic topical BID Qty: 15 0RF Print Language: [place] Stand Alone Forms: PCP List
[2025-02-17] MEDS: ceFAZolin 1 GM VIAL IVP STA (21:37)
--- NOTE | 2025-02-17 21:49 | ED Physician Documentation ---
History of Present Illness Stated complaint Stated Complaint: ABD PX Chief complaint Chief Complaint: Abd Pain History obtained from History obtained from: Patient and EMS Additonal information Additional information: This is a 65-year-old woman with history of ulcerative colitis on Humira with an ostomy in place. Alcoholism in remission, MSSA bacteremia, deconditioning, hyponatremia, recurrent delirium, and more recently she has been having problems with hyperkalemia with preserved renal function. She presents by ambulance with complaints of lower abdominal pain starting today associated with nausea but no vomiting. She also complains of right leg swelling, and she did have an ultrasound of that 4 days ago which was negative for DVT. Meds/Allgy Home Medications Ambulatory Orders Medication Instructions Recorded Confirmed amlodipine 5 mg tablet 5 mg PO DAILY 06/24/24 02/04/25 sodium zirconium cyclosilicate 10 10 g PO DAILY #30 ea 10/27/24 02/04/25 gram oral powder packet (Lokelma) cholecalciferol (vitamin D3) 25 25 mcg PO DAILY 01/08/25 02/04/25 mcg (1,000 unit) capsule (Vitamin D3) levothyroxine 25 mcg tablet 25 mcg PO DAILY 01/08/25 02/04/25 thiamine mononitrate (vit B1) 100 100 mg PO DAILY 01/08/25 02/04/25 mg tablet sodium chloride 1,000 mg soluble 1,000 mg PO BID 01/09/25 02/04/25 tablet megestrol 400 mg/10 mL (10 mL) 400 mg (10 mL) PO DAILY 30 days 01/24/25 02/04/25 oral suspension #300 mL cefuroxime axetil 250 mg tablet 250 mg PO BID #10 tabs 02/04/25 cefuroxime axetil 500 mg tablet 500 mg PO BID 02/04/25 02/04/25 multivitamin (Multiple Vitamins 1 tab PO DAILY 02/04/25 02/04/25 tablet) mupirocin 2 % topical ointment 1 applic topical BID #15 grams 02/04/25 (Centany) naproxen sodium 220 mg tablet 220 mg PO BID PRN pain 02/04/25 02/04/25 (Aleve) Allergies Allergies Allergy/AdvReac Type Severity Reaction Status Date / Time Penicillins Allergy Anaphylaxis Verified 01/20/25 15:17 vancomycin Allergy Rash Verified 01/20/25 15:17 methocarbamol AdvReac Dizziness Verified 01/20/25 15:17 PFSH Active Problems All Active Problems (Updated 02/17/25 @ 21:51 by Donn Huerta MD) Hypothermia (Acute) Abdominal pain (Acute) Hypothermia (Acute) Cellulitis of leg, right (Acute) Cellulitis, leg (Acute) Cellulitis of right leg (Acute) Cellulitis (Acute) Hypoglycemia (Acute) Hypertension (Acute) Hyperkalemia (Acute) Malabsorption (Acute) Witnessed seizure-like activity (Acute) Chronic hyponatremia (Acute) Dehydration (Acute) Chronic hyperkalemia (Acute) Depression (Acute) Hyperkalemia (Acute) Hypokalemia (Acute) Weakness (Acute) Alcohol use (Acute) Thrombocytopenia (Acute) UTI (urinary tract infection) (Acute) Acute conjunctivitis (Acute) Medical History Medical History (Updated 02/17/25 @ 21:51 by Donn Huerta MD) Crohn disease Ulcerative colitis, chronic Encephalopathy acute Surgical History Surgical History History of colostomy Social History Social History Smoking Status: Never smoker Second hand tobacco smoke exposure: No Do you dip or chew tobacco?: No Do you vape?: No Patient requests smoking cessation consult: No Initiate information on smoking cessation: No Living arrangement: At home Living Condition: With spouse/s.o. Relationship: Level: Independent Do you feel safe in your home environment?: Yes Suffered physical, verbal, emotional, or financial abuse?: No History of Abuse: No ETOH Use: Other Frequency: Occasional Substance Use: denies use Substance Use Details: Pt. used to be alcoholic but quit drinking 2 yrs. ago Are you sexually active?: No POLST Patient has POLST: No POLST Status: Full Code Exam Exam Vital Signs: Vital Signs x48h Temp Pulse Resp BP Pulse Ox 02/17/25 19:24 85 22 152/83 H 95 02/17/25 19:21 31.3 C L 57 L 20 145/100 H 99 02/17/25 19:17 88.4 C H 56 L 17 171/91 H 99 xam Constitutional normal general appearance Kind of a slow stuttering speech but a good historian, I have seen her much worse than this with respect to her delirium. Gastrointestinal There is stool in her right sided ostomy bag, no real tenderness. No surgical signs. Extremities Significant right sided pedal edema which is pitting. Results Vitals Vitals: Vital Signs - 24 hr 02/17/25 19:17 02/17/25 19:21 02/17/25 19:24 Temperature 88.4 C H 31.3 C L Temperature Source Rectal Rectal Pulse Rate 56 L 57 L Respiratory Rate 17 20 Blood Pressure 171/91 H 145/100 H O2 Saturation 99 99 Oxygen Delivery Method Room Air O2 Source Room air Room air Pain Intensity 6 02/17/25 19:24 02/17/25 20:02 02/17/25 21:27 Temperature Temperature Source Pulse Rate 85 Respiratory Rate 22 Blood Pressure 152/83 H O2 Saturation 95 Oxygen Delivery Method O2 Source Pain Intensity 7 2 Oxygen O2 Source Room air Labs Labs: Laboratory Tests 02/17/25 02/17/25 19:36 19:36 WBC 2.7 L RBC 2.99 L Hgb 9.1 L Hct 27.7 L MCV 92.6 MCH 30.4 MCHC 32.9 RDW 20.4 H Plt Count 198 MPV 10.1 Neut # (Auto) 1.9 Lymph # (Auto) 0.5 L [place] # (Auto) 0.1 Eos # (Auto) 0.0 Baso # (Auto) 0.0 Absolute Nucleated RBC 0.02 Nucleated RBC % 0.7 Manual Slide Review Indicated Platelet Estimate NORMAL (130-450,000) Platelet Morphology NORMAL APPEARANCE RBC Morph Micro Appear 2+ ANISOCYTOSIS 1+ POIKILOCYTOSIS Sodium 132 L Potassium 5.0 H Chloride 103 Carbon Dioxide 22 Anion Gap 7.0 BUN 27 H Creatinine 0.5 L Estimated GFR (MDRD) 124 Glucose 166 H Lactic Acid 2.8 H Calcium 9.5 Total Bilirubin 0.3 AST 34 ALT 51 Alkaline Phosphatase 108 Total Protein 6.9 Albumin 3.6 Globulin 3.3 Albumin/Globulin Ratio 1.1 Lipase 29 TSH 6.67 H Free T4 Direct 0.83 Free T3 pg/mL 3.10 Ethyl Alcohol < 10.0 PD Medical Decision Making ED course ED course: Rads (name of study) CT A/P: Relevant Findings:: Final report received and EMP independent interpretation of test (No SBO) Interpretation: IMPRESSION: Total colectomy with right lower quadrant ileostomy. There is a short segment of ileal wall thickening just proximal to the ileostomy, located within a parastomal hernia. Moderate wall thicken ing with wall stratification but no evidence of penetrating disease. Post infectious/inflammatory process of the lung bases. PD Medical Decision Making ED course ED course: This is a 65-year-old woman with ulcerative colitis and recurrent episodes of delirium who presents with abdominal pain. She has a pretty significant cellulitis of the right leg with negative ultrasonography a few days ago. Her tells me they changed antibiotics yesterday and she got sicker today. Given the hypothermia she could be septic and she was cultured up. Workup demonstrates a low white count, and she was put on a Amari hugger. She is given IV Ancef. Given the hypothermia we will admit her. Given the CT findings, I did query our on-call surgeon Dr. Bernal about this and she felt that it was a nonissue. And Dr. Cameron who was consulted for admission. After admission orders were written but before transfer to the floor, the RN checked her blood sugar and it was dropping down to 37 and amp of D50 was ordered. Discharge Plan Discharge Patient Disposition: 66 [facility] DC/Xfer Condition: Serious Clinical Impression: Cellulitis of right leg, Cellulitis, leg, Hypothermia, Abdominal pain
--- NOTE | 2025-02-17 22:11 | HISTORY & PHYSICAL EXAMINATION ---
Chief Complaint Chief Complaint Chief Complaint: leg swelling History of Present Illness Admitted From Admitted From:: Home History Obtained From Records Reviewed: yes History obtained from: ED physician, records Exam Limitations: telemedicine visit History of Present Illness HPI Comment/Other: This is a 65-year-old woman with history of ulcerative colitis on Humira with an ostomy in place, hypertension, hyponatremia, recurrent delirium, and hyperkalemia with preserved renal function. She presents by ambulance with complaints of right leg swelling of a week duration. She had an ultrasound of her leg 4 days ago which was negative for DVT. She was started on oral antibiotics during that time, but swelling and redness continued to worsen. In the ED, she was hypothermic, lethargic. She had an elevated lactic acid and low WBC. She met Sepsis criteria. Due to worsening cellulitis and the development of sepsis, I will admit for further management. [facility] Active Problems All Active Problems (Updated 02/17/25 @ 22:43 by Mile Cameron MD) Sepsis (Acute) Hypothermia (Acute) Abdominal pain (Acute) Hypothermia (Acute) Cellulitis of leg, right (Acute) Cellulitis, leg (Acute) Cellulitis of right leg (Acute) Cellulitis (Acute) Hypoglycemia (Acute) Hypertension (Acute) Hyperkalemia (Acute) Malabsorption (Acute) Witnessed seizure-like activity (Acute) Chronic hyponatremia (Acute) Dehydration (Acute) Chronic hyperkalemia (Acute) Depression (Acute) Hyperkalemia (Acute) Hypokalemia (Acute) Weakness (Acute) Alcohol use (Acute) Thrombocytopenia (Acute) UTI (urinary tract infection) (Acute) Acute conjunctivitis (Acute) Medical History Medical History (Updated 02/17/25 @ 22:43 by Mile Cameron MD) Crohn disease Ulcerative colitis, chronic Encephalopathy acute Surgical History Surgical History History of colostomy Social History Social History Smoking Status: Never smoker Second hand tobacco smoke exposure: No Do you dip or chew tobacco?: No Do you vape?: No Patient requests smoking cessation consult: No Initiate information on smoking cessation: No Living arrangement: At home Living Condition: With spouse/s.o. Relationship: Level: Independent Do you feel safe in your home environment?: Yes Suffered physical, verbal, emotional, or financial abuse?: No History of Abuse: No ETOH Use: Other Frequency: Occasional Substance Use: denies use Substance Use Details: Pt. used to be alcoholic but quit drinking 2 yrs. ago Are you sexually active?: No POLST Patient has POLST: No POLST Status: Full Code Meds/Allgy Home Medications Ambulatory Orders Medication Instructions Recorded Confirmed amlodipine 5 mg tablet 5 mg PO DAILY 06/24/24 02/04/25 sodium zirconium cyclosilicate 10 10 g PO DAILY #30 ea 10/27/24 02/04/25 gram oral powder packet (Lokelma) cholecalciferol (vitamin D3) 25 25 mcg PO DAILY 01/08/25 02/04/25 mcg (1,000 unit) capsule (Vitamin D3) levothyroxine 25 mcg tablet 25 mcg PO DAILY 01/08/25 02/04/25 thiamine mononitrate (vit B1) 100 100 mg PO DAILY 01/08/25 02/04/25 mg tablet sodium chloride 1,000 mg soluble 1,000 mg PO BID 01/09/25 02/04/25 tablet megestrol 400 mg/10 mL (10 mL) 400 mg (10 mL) PO DAILY 30 days 01/24/25 02/04/25 oral suspension #300 mL cefuroxime axetil 250 mg tablet 250 mg PO BID #10 tabs 02/04/25 cefuroxime axetil 500 mg tablet 500 mg PO BID 02/04/25 02/04/25 multivitamin (Multiple Vitamins 1 tab PO DAILY 02/04/25 02/04/25 tablet) mupirocin 2 % topical ointment 1 applic topical BID #15 grams 02/04/25 (Centany) naproxen sodium 220 mg tablet 220 mg PO BID PRN pain 02/04/25 02/04/25 (Aleve) Allergies Allergies Allergy/AdvReac Type Severity Reaction Status Date / Time Penicillins Allergy Anaphylaxis Verified 01/20/25 15:17 vancomycin Allergy Rash Verified 01/20/25 15:17 methocarbamol AdvReac Dizziness Verified 01/20/25 15:17 Exam Exam Vital Signs: Vital Signs x48h Temp Pulse Resp BP Pulse Ox 02/17/25 19:21 31.3 C L 57 L 20 145/100 H 99 02/17/25 19:17 88.4 C H 56 L 17 171/91 H 99 Examination as recorded, was obtained from onsite faculty, patient, and/or through peripheral observation. Constitutional no apparent distress Eyes PERRL and EOMs intact bilaterally Respiratory normal respiratory effort Cardiovascular normal heart rate noted and regular rhythm noted Gastrointestinal abdomen normal to inspection, tender to palpation (moderate) and nondistended Skin rash noted (RLE) Sepsis Event Note (H) Evaluation Current Stage of Sepsis: Sepsis Possible source of Sepsis: positive Skin/soft tissue Sepsis Criteria Sepsis Criteria: Recorded Temperature greater than 38.3C or Less than 36C and WBC count greater than 12,000 or less than 4000 Conclusion/Plan Problem List (1) Cellulitis of leg, right: Plan: Progressive swelling and redness of right lower extremity, failed outpatient management with oral antibiotics. will manage as follows - initiate broadened antibiotic coverage vancomycin and cefepime, monitor drug levels and clinical response to optimize therapy and avoid toxicity -blood cultures obtained, follow and tailor antibiotic for appropriate coverage -leg elevation -monitoring for improvement (2) Hypertension: Plan: I reviewed home medications -will resume amlodipine -provide as needed additional coverage with IV antihypertensive, goal SBP less than 180, DBP less 100 (3) Hyperkalemia: Plan: chronic. No acute EKG changes -home medications reviewed, will resume lokelma as tolerated -continue to monitor potassium levels daily (4) Chronic hyponatremia: Plan: home medications reviewed -eloy resume oral salt tablets as tolerated (5) Abdominal pain: Plan: acute on chronic, h/o ulerative colitis. -I have reviewed CT abdomen, no acute findings, no evidence of SBO -will continue with conservative management of pain and bowel regimen Qualifiers: Abdominal location: generalized Qualified Code(s): R10.84 - Generalized abdominal pain (6) Sepsis: Plan: presented with cellulitis,hypothermia, lactic acidosis, leukopenia. will continue to manage as follows -continue with IV antibiotics, tailor based on cultures -optimize temperature control with barehugger and rewarm slowly -gentle IV fluids, normal saline 100cc/hr, monitor UOP - trend inflammatory markers -monitor vitals Qualifiers: Sepsis acute organ dysfunction status: without acute organ dysfunction Sepsis type: sepsis due to unspecified organism Qualified Code(s): A41.9 - Sepsis, unspecified organism Lab Results 02/17/25 19:36 02/17/25 19:36 Core Measures Anticipated LOS I expect patient to be DC'd or transferred within 96 hours.: Yes DVT/VTE - Prophylaxis VTE/DVT Device ordered at admit?: Yes VTE/DVT Prophylaxis med ordered at admit?: Yes
[2025-02-17] MEDS ORDERED: DEXTROSE 50% ABBOJECT 25 GM/50 ML SYRINGE ONE (22:29)
[2025-02-17] MEDS: DEXTROSE 50% ABBOJECT 25 GM/50 ML SYRINGE IVP ONE (22:42)
[2025-02-17] MEDS: HYDROmorphone 1 MG/ML SYRINGE IVP STA (23:02)
[2025-02-17 23:25] LABS: BILIRUBIN,URINE NEGATIVE (NEGATIVE); GLUCOSE, URINE (UA) NEGATIVE (NEGATIVE); KETONES,URINE (UA) NEGATIVE (NEGATIVE); LEUKOCYTE ESTERASE, URINE NEGATIVE (NEGATIVE); NITRITE,URINE NEGATIVE (NEGATIVE); OCCULT BLOOD,URINE NEGATIVE (NEGATIVE); PH,URINE 6.5 PH (5.0-7.5); PROTEIN,URINE NEGATIVE (NEGATIVE); UROBILINOGEN,URINE 0.2 (NORMAL) E.U./dL (NORMAL)
[2025-02-17 23:26] LABS: CLARITY,URINE CLEAR (CLEAR)
[2025-02-17] MEDS ORDERED: SODIUM CHLORIDE FLUSH 0.9% 10 ML SYRINGE IVP PRN (23:35)
[2025-02-17] MEDS ORDERED: ONDANSETRON 4 MG/2 ML VIAL IVP PRN (23:35)
[2025-02-17] MEDS: SODIUM CHLORIDE FLUSH 0.9% 10 ML SYRINGE IVP SCH (23:59)
[2025-02-18] MEDS: SODIUM CHLORIDE 0.9% 1,000 ML IV SCH (04:41)
[2025-02-18 04:58] LABS: BASOPHILS % (AUTO) 0.6 %; EOSINOPHILS % (AUTO) 0.8 %; HCT - HEMATOCRIT 22.4 % (37.0-47.0); HGB - HEMOGLOBIN 7.5 g/dL (12.0-16.0); LYMPHOCYTES # (AUTO) 0.4 10^3/uL (1.5-3.5); LYMPHOCYTES % (AUTO) 11.6 %; MEAN CORPUSCULAR HEMOGLOBIN 31.1 pg (27.0-31.0); MEAN CORPUSCULAR HGB CONC 33.5 g/dL (32.0-36.0); MEAN CORPUSCULAR VOLUME 92.9 fL (81.0-99.0); MEAN PLATELET VOLUME 10.4 fL (7.9-10.8); MONOCYTES # (AUTO) 0.4 10^3/uL (0.0-1.0); NEUTROPHILS # (AUTO) 2.7 10^3/uL (1.5-6.6); NEUTROPHILS % (AUTO) 75.4 %; NRBC ABSOLUTE COUNT (AUTO) 0.04 x10^3/uL; NUCLEATED RED BLOOD CELLS AUTO 1.1 /100WBC; PLT - PLATELET COUNT 188 10^3/uL (130-450); RED BLOOD COUNT 2.41 10^6/uL (4.20-5.40); RED CELL DISTRIBUTION WIDTH 20.4 % (12.0-15.0); WHITE BLOOD COUNT 3.6 x10^3/uL (4.8-10.8)
[2025-02-18 05:06] LABS: SLIDE REVIEW? Indicated
[2025-02-18 05:12] LABS: ALBUMIN 3.1 g/dL (3.2-5.5); ALBUMIN/GLOBULIN RATIO 1.2 (1.0-2.2); BILIRUBIN,TOTAL 0.2 mg/dL (0.2-1.0); CREATININE 0.6 mg/dL (0.6-1.3); POTASSIUM 5.3 mmol/L (3.5-4.5); TOTAL PROTEIN 5.7 g/dL (6.4-8.9)
[2025-02-18 05:43] LABS: PLATELET ESTIMATE, MANUAL NORMAL (130-450,000) (NORMAL); PLATELET MORPHOLOGY NORMAL APPEARANCE (NORMAL); RBC MORPHOLOGY (MULTIPLE) 1+ HYPOCHROMASIA (NORMAL)
[2025-02-18] MEDS: CEFEPIME 1 GM VIAL IVP SCH (09:30)
[2025-02-18] MEDS: SODIUM CHLORIDE 1 GM TABLET PO SCH (09:33)
[2025-02-18] MEDS: LEVOTHYROXINE 25 MCG TABLET PO SCH (09:33)
[2025-02-18] MEDS: amLODIPine 5 MG TABLET PO SCH (09:33)
[2025-02-18] MEDS: HEPARIN 5,000 UNIT/ML VIAL SUBQ SCH (09:37)
[2025-02-18] MEDS: DEXTROSE 5%-0.9% NACL 1,000 ML IV SCH (12:37)
[2025-02-18] MEDS: DEXTROSE 50% ABBOJECT 25 GM/50 ML SYRINGE IVP ONE (12:37)
--- NOTE | 2025-02-18 13:26 | PROVIDER PROGRESS NOTE ---
Subjective Prog Note Date Prog Note Date: 02/18/25 Subjective Subjective: She has not been awake and alert. She seemed to wake up more after one attempt at Dobhoff placement. She has hypoglycemia all AM, or close to low blood sugars. After placement attempt, continues to refuse food and drink. One dose of D50 given, and she continues to refuse to eat, therefore tube was placed. Current Medications Current Medications Current Medications: Current Medications Generic Name Dose Route Start Last Admin Trade Name Freq PRN Reason Stop Dose Admin Acetaminophen 650 mg 02/17/25 23:35 Acetaminophen 325 Mg Tablet PO Q4HR PRN Pain 1 to 4, or Fever Amlodipine Besylate 5 mg 02/18/25 09:00 02/18/25 09:33 Amlodipine 5 Mg Tablet PO 5 mg DAILY FRANK Administration Cefepime HCl 1 gm 02/18/25 09:00 02/18/25 09:30 Cefepime 1 Gm Vial IVP 1 gm DAILY FRANK Administration Heparin Sodium (Porcine) 5,000 unit 02/18/25 09:00 02/18/25 09:37 Heparin 5,000 Unit/Ml Vial SUBQ 5,000 unit BID FRANK Administration Sodium Chloride 1,000 mls @ 100 mls/hr 02/18/25 03:00 02/18/25 04:41 Normal Saline 0.9% IV 100 mls/hr .Q10H FRANK Administration Dextrose/Sodium Chloride 1,000 mls @ 100 mls/hr 02/18/25 13:00 02/18/25 12:37 D5ns IV 100 mls/hr .Q10H FRANK Administration Levothyroxine Sodium 25 mcg 02/18/25 09:00 02/18/25 09:33 Levothyroxine 25 Mcg Tablet PO 25 mcg DAILY FRANK Administration Ondansetron HCl 4 mg 02/17/25 23:35 Ondansetron 4 Mg/2 Ml Vial IVP Q6HR PRN Nausea / Vomiting Oxycodone HCl 5 mg 02/17/25 23:35 Oxycodone 5 Mg Tablet PO Q4HR PRN Pain 5 to 7 Sodium Chloride 1 gm 02/18/25 09:00 02/18/25 09:33 Sodium Chloride 1 Gm Tablet PO 1 gm BID FRANK Administration Sodium Chloride 10 ml 02/17/25 23:35 Sodium Chloride Flush 0.9% 10 Ml Syringe IVP PRN PRN NEEDED PER PROVIDER ORDERS Sodium Chloride 10 ml 02/18/25 01:00 02/18/25 09:37 Sodium Chloride Flush 0.9% 10 Ml Syringe IVP 10 ml 0100,0900,1700 FRANK Administration Sodium Zirconium Cyclosilicate 10 gm 02/18/25 09:00 Sodium Zirconium Cyclosilicate 5 Gm Packet PO DAILY FRANK Objective Vital Signs/Intake & Output Reviewed Vital Signs: Yes Vital Signs: Vital Signs x48h Temp Pulse Resp BP Pulse Ox 02/18/25 08:21 36.8 C 73 16 107/66 98 Intake & Output: Intake & Output 02/15/25 02/16/25 02/17/25 02/18/25 23:59 23:59 23:59 23:59 Intake Total 1000 / 1000 120 / 120 Output Total 465 / 465 1310 / 1310 Balance 535 / 535 -1190 / -1190 Weight (kg) 41.5 kg Objective General Appearance: positive No acute distress and Other (opens eyes to noxious stimuli) Eyes Bilateral: positive PERRL and Conjunctivae nml ENT: positive ENT inspection nml and Pharynx nml; negative Dry mucous membranes Neck: positive Nml inspection Respiratory: positive Chest non-tender Cardiovascular: positive Regular rate & rhythm Abdomen: positive Non-tender and No distention Skin: positive Other (erythema left lower extremity) Extremities: positive Other (LLE swelling) Neurologic/Psychiatric: positive Other (moves all 4 extremities, non verbal. ) Lab Results 02/18/25 04:28 02/18/25 04:28 Other Labs: Lab Results x24hrs 02/18/25 02/18/25 02/18/25 Range/Units 11:38 10:29 07:48 WBC (4.8-10.8) x10^3/uL RBC (4.20-5.40) 10^6/uL Hgb (12.0-16.0) g/dL Hct (37.0-47.0) % MCV (81.0-99.0) fL MCH (27.0-31.0) pg MCHC (32.0-36.0) g/dL RDW (12.0-15.0) % Plt Count (130-450) 10^3/uL MPV (7.9-10.8) fL Neut # (Auto) (1.5-6.6) 10^3/uL Lymph # (Auto) (1.5-3.5) 10^3/uL [place] # (Auto) (0.0-1.0) 10^3/uL Eos # (Auto) (0.0-0.7) 10^3/uL Baso # (Auto) (0.0-0.1) 10^3/uL Absolute Nucleated RBC x10^3/uL Nucleated RBC % /100WBC Manual Slide Review Platelet Estimate (NORMAL) Platelet Morphology (NORMAL) RBC Morph Micro Appear (NORMAL) Sodium (135-145) mmol/L Potassium (3.5-4.5) mmol/L Chloride (101-111) mmol/L Carbon Dioxide (21-32) mmol/L Anion Gap (6-13) BUN (6-20) mg/dL Creatinine (0.6-1.3) mg/dL Estimated GFR (MDRD) (>89) Glucose (74-104) mg/dL POC Whole Bld Glucose 65 60 67 (70-100) mg/dL Lactic Acid (0.5-2.2) mmol/L Calcium (8.5-10.3) mg/dL Total Bilirubin (0.2-1.0) mg/dL AST (10-42) IU/L ALT (10-60) IU/L Alkaline Phosphatase (42-121) IU/L Total Protein (6.4-8.9) g/dL Albumin (3.2-5.5) g/dL Globulin (2.1-4.2) g/dL Albumin/Globulin Ratio (1.0-2.2) Lipase (11-82) U/L TSH (0.34-5.60) uIU/mL Free T4 Direct (0.58-1.64) ng/dL Free T3 pg/mL (2.5-3.9) pg/mL Urine Color Urine Clarity (CLEAR) Urine pH (5.0-7.5) PH Ur Specific [place] (1.002-1.030) Urine Protein (NEGATIVE) mg/dL Urine Glucose (UA) (NEGATIVE) mg/dL Urine Ketones (NEGATIVE) mg/dL Urine Occult Blood (NEGATIVE) Urine Nitrite (NEGATIVE) Urine Bilirubin (NEGATIVE) Urine Urobilinogen (NORMAL) E.U./dL Ur Leukocyte Esterase (NEGATIVE) Ur Microscopic Review Urine Culture Comments Ethyl Alcohol mg/dL 02/18/25 02/18/25 02/18/25 Range/Units 04:28 01:42 00:43 WBC 3.6 L (4.8-10.8) x10^3/uL RBC 2.41 L (4.20-5.40) 10^6/uL Hgb 7.5 L (12.0-16.0) g/dL Hct 22.4 L (37.0-47.0) % MCV 92.9 (81.0-99.0) fL MCH 31.1 H (27.0-31.0) pg MCHC 33.5 (32.0-36.0) g/dL RDW 20.4 H (12.0-15.0) % Plt Count 188 (130-450) 10^3/uL MPV 10.4 (7.9-10.8) fL Neut # (Auto) 2.7 (1.5-6.6) 10^3/uL Lymph # (Auto) 0.4 L (1.5-3.5) 10^3/uL [place] # (Auto) 0.4 (0.0-1.0) 10^3/uL Eos # (Auto) 0.0 (0.0-0.7) 10^3/uL Baso # (Auto) 0.0 (0.0-0.1) 10^3/uL Absolute Nucleated RBC 0.04 x10^3/uL Nucleated RBC % 1.1 /100WBC Manual Slide Review Indicated Platelet Estimate NORMAL (130-450,000) (NORMAL) Platelet Morphology NORMAL APPEARANCE (NORMAL) RBC Morph Micro Appear 1+ HYPOCHROMASIA (NORMAL) Sodium 136 (135-145) mmol/L Potassium 5.3 H (3.5-4.5) mmol/L Chloride 109 (101-111) mmol/L Carbon Dioxide 24 (21-32) mmol/L Anion Gap 3.0 L (6-13) BUN 26 H (6-20) mg/dL Creatinine 0.6 (0.6-1.3) mg/dL Estimated GFR (MDRD) 100 (>89) Glucose 78 (74-104) mg/dL POC Whole Bld Glucose 114 86 (70-100) mg/dL Lactic Acid (0.5-2.2) mmol/L Calcium 9.0 (8.5-10.3) mg/dL Total Bilirubin 0.2 (0.2-1.0) mg/dL AST 25 (10-42) IU/L ALT 38 (10-60) IU/L Alkaline Phosphatase 89 (42-121) IU/L Total Protein 5.7 L (6.4-8.9) g/dL Albumin 3.1 L (3.2-5.5) g/dL Globulin 2.6 (2.1-4.2) g/dL Albumin/Globulin Ratio 1.2 (1.0-2.2) Lipase (11-82) U/L TSH (0.34-5.60) uIU/mL Free T4 Direct (0.58-1.64) ng/dL Free T3 pg/mL (2.5-3.9) pg/mL Urine Color Urine Clarity (CLEAR) Urine pH (5.0-7.5) PH Ur Specific [place] (1.002-1.030) Urine Protein (NEGATIVE) mg/dL Urine Glucose (UA) (NEGATIVE) mg/dL Urine Ketones (NEGATIVE) mg/dL Urine Occult Blood (NEGATIVE) Urine Nitrite (NEGATIVE) Urine Bilirubin (NEGATIVE) Urine Urobilinogen (NORMAL) E.U./dL Ur Leukocyte Esterase (NEGATIVE) Ur Microscopic Review Urine Culture Comments Ethyl Alcohol mg/dL 02/18/25 02/17/25 02/17/25 Range/Units 00:15 23:52 23:20 WBC (4.8-10.8) x10^3/uL RBC (4.20-5.40) 10^6/uL Hgb (12.0-16.0) g/dL Hct (37.0-47.0) % MCV (81.0-99.0) fL MCH (27.0-31.0) pg MCHC (32.0-36.0) g/dL RDW (12.0-15.0) % Plt Count (130-450) 10^3/uL MPV (7.9-10.8) fL Neut # (Auto) (1.5-6.6) 10^3/uL Lymph # (Auto) (1.5-3.5) 10^3/uL [place] # (Auto) (0.0-1.0) 10^3/uL Eos # (Auto) (0.0-0.7) 10^3/uL Baso # (Auto) (0.0-0.1) 10^3/uL Absolute Nucleated RBC x10^3/uL Nucleated RBC % /100WBC Manual Slide Review Platelet Estimate (NORMAL) Platelet Morphology (NORMAL) RBC Morph Micro Appear (NORMAL) Sodium (135-145) mmol/L Potassium (3.5-4.5) mmol/L Chloride (101-111) mmol/L Carbon Dioxide (21-32) mmol/L Anion Gap (6-13) BUN (6-20) mg/dL Creatinine (0.6-1.3) mg/dL Estimated GFR (MDRD) (>89) Glucose (74-104) mg/dL POC Whole Bld Glucose 61 35 (70-100) mg/dL Lactic Acid (0.5-2.2) mmol/L Calcium (8.5-10.3) mg/dL Total Bilirubin (0.2-1.0) mg/dL AST (10-42) IU/L ALT (10-60) IU/L Alkaline Phosphatase (42-121) IU/L Total Protein (6.4-8.9) g/dL Albumin (3.2-5.5) g/dL Globulin (2.1-4.2) g/dL Albumin/Globulin Ratio (1.0-2.2) Lipase (11-82) U/L TSH (0.34-5.60) uIU/mL Free T4 Direct (0.58-1.64) ng/dL Free T3 pg/mL (2.5-3.9) pg/mL Urine Color YELLOW Urine Clarity CLEAR (CLEAR) Urine pH 6.5 (5.0-7.5) PH Ur Specific [place] <=1.005 (1.002-1.030) Urine Protein NEGATIVE (NEGATIVE) mg/dL Urine Glucose (UA) NEGATIVE (NEGATIVE) mg/dL Urine Ketones NEGATIVE (NEGATIVE) mg/dL Urine Occult Blood NEGATIVE (NEGATIVE) Urine Nitrite NEGATIVE (NEGATIVE) Urine Bilirubin NEGATIVE (NEGATIVE) Urine Urobilinogen 0.2 (NORMAL) (NORMAL) E.U./dL Ur Leukocyte Esterase NEGATIVE (NEGATIVE) Ur Microscopic Review NOT INDICATED Urine Culture Comments NOT INDICATED Ethyl Alcohol mg/dL 04/21/25 04/21/25 04/21/25 Range/Units 22:45 22:30 19:36 WBC (4.8-10.8) x10^3/uL RBC (4.20-5.40) 10^6/uL Hgb (12.0-16.0) g/dL Hct (37.0-47.0) % MCV (81.0-99.0) fL MCH (27.0-31.0) pg MCHC (32.0-36.0) g/dL RDW (12.0-15.0) % Plt Count (130-450) 10^3/uL MPV (7.9-10.8) fL Neut # (Auto) (1.5-6.6) 10^3/uL Lymph # (Auto) (1.5-3.5) 10^3/uL [place] # (Auto) (0.0-1.0) 10^3/uL Eos # (Auto) (0.0-0.7) 10^3/uL Baso # (Auto) (0.0-0.1) 10^3/uL Absolute Nucleated RBC x10^3/uL Nucleated RBC % /100WBC Manual Slide Review Platelet Estimate (NORMAL) Platelet Morphology (NORMAL) RBC Morph Micro Appear 1+ POIKILOCYTOSIS (NORMAL) Sodium 132 L (135-145) mmol/L Potassium 5.0 H (3.5-4.5) mmol/L Chloride 103 (101-111) mmol/L Carbon Dioxide 22 (21-32) mmol/L Anion Gap 7.0 (6-13) BUN 27 H (6-20) mg/dL Creatinine 0.5 L (0.6-1.3) mg/dL Estimated GFR (MDRD) 124 (>89) Glucose 166 H (74-104) mg/dL POC Whole Bld Glucose 202 37 (70-100) mg/dL Lactic Acid 2.8 H (0.5-2.2) mmol/L Calcium 9.5 (8.5-10.3) mg/dL Total Bilirubin 0.3 (0.2-1.0) mg/dL AST 34 (10-42) IU/L ALT 51 (10-60) IU/L Alkaline Phosphatase 108 (42-121) IU/L Total Protein 6.9 (6.4-8.9) g/dL Albumin 3.6 (3.2-5.5) g/dL Globulin 3.3 (2.1-4.2) g/dL Albumin/Globulin Ratio 1.1 (1.0-2.2) Lipase 29 (11-82) U/L TSH 6.67 H (0.34-5.60) uIU/mL Free T4 Direct 0.83 (0.58-1.64) ng/dL Free T3 pg/mL 3.10 (2.5-3.9) pg/mL Urine Color Urine Clarity (CLEAR) Urine pH (5.0-7.5) PH Ur Specific [place] (1.002-1.030) Urine Protein (NEGATIVE) mg/dL Urine Glucose (UA) (NEGATIVE) mg/dL Urine Ketones (NEGATIVE) mg/dL Urine Occult Blood (NEGATIVE) Urine Nitrite (NEGATIVE) Urine Bilirubin (NEGATIVE) Urine Urobilinogen (NORMAL) E.U./dL Ur Leukocyte Esterase (NEGATIVE) Ur Microscopic Review Urine Culture Comments Ethyl Alcohol < 10.0 mg/dL 02/17/25 Range/Units 19:36 WBC 2.7 L (4.8-10.8) x10^3/uL RBC 2.99 L (4.20-5.40) 10^6/uL Hgb 9.1 L (12.0-16.0) g/dL Hct 27.7 L (37.0-47.0) % MCV 92.6 (81.0-99.0) fL MCH 30.4 (27.0-31.0) pg MCHC 32.9 (32.0-36.0) g/dL RDW 20.4 H (12.0-15.0) % Plt Count 198 (130-450) 10^3/uL MPV 10.1 (7.9-10.8) fL Neut # (Auto) 1.9 (1.5-6.6) 10^3/uL Lymph # (Auto) 0.5 L (1.5-3.5) 10^3/uL [place] # (Auto) 0.1 (0.0-1.0) 10^3/uL Eos # (Auto) 0.0 (0.0-0.7) 10^3/uL Baso # (Auto) 0.0 (0.0-0.1) 10^3/uL Absolute Nucleated RBC 0.02 x10^3/uL Nucleated RBC % 0.7 /100WBC Manual Slide Review Indicated Platelet Estimate NORMAL (130-450,000) (NORMAL) Platelet Morphology NORMAL APPEARANCE (NORMAL) RBC Morph Micro Appear 2+ ANISOCYTOSIS (NORMAL) Sodium (135-145) mmol/L Potassium (3.5-4.5) mmol/L Chloride (101-111) mmol/L Carbon Dioxide (21-32) mmol/L Anion Gap (6-13) BUN (6-20) mg/dL Creatinine (0.6-1.3) mg/dL Estimated GFR (MDRD) (>89) Glucose (74-104) mg/dL POC Whole Bld Glucose (70-100) mg/dL Lactic Acid (0.5-2.2) mmol/L Calcium (8.5-10.3) mg/dL Total Bilirubin (0.2-1.0) mg/dL AST (10-42) IU/L ALT (10-60) IU/L Alkaline Phosphatase (42-121) IU/L Total Protein (6.4-8.9) g/dL Albumin (3.2-5.5) g/dL Globulin (2.1-4.2) g/dL Albumin/Globulin Ratio (1.0-2.2) Lipase (11-82) U/L TSH (0.34-5.60) uIU/mL Free T4 Direct (0.58-1.64) ng/dL Free T3 pg/mL (2.5-3.9) pg/mL Urine Color Urine Clarity (CLEAR) Urine pH (5.0-7.5) PH Ur Specific [place] (1.002-1.030) Urine Protein (NEGATIVE) mg/dL Urine Glucose (UA) (NEGATIVE) mg/dL Urine Ketones (NEGATIVE) mg/dL Urine Occult Blood (NEGATIVE) Urine Nitrite (NEGATIVE) Urine Bilirubin (NEGATIVE) Urine Urobilinogen (NORMAL) E.U./dL Ur Leukocyte Esterase (NEGATIVE) Ur Microscopic Review Urine Culture Comments Ethyl Alcohol mg/dL Sepsis Event Note (H) Evaluation Current Stage of Sepsis: Sepsis Possible source of Sepsis: positive Skin/soft tissue Sepsis Criteria Sepsis Criteria: Recorded Temperature greater than 38.3C or Less than 36C and WBC count greater than 12,000 or less than 4000 Assessment/Plan Problem List (1) Sepsis: Impression: she comes in last night, confused, with leukopenia, hypothermia, elevated lactate. She was admitted under sepsis criteria. She is getting cefepime, blood cutures are pending. Lactate needs to be rechecked (normal 0.6). I will order a MRSA screen and start Vancomycin if it is positive (it is negative.). Qualifiers: Sepsis acute organ dysfunction status: without acute organ dysfunction Sepsis type: sepsis due to unspecified organism Qualified Code(s): A41.9 - Sepsis, unspecified organism (2) Cellulitis of leg, right: Impression: there is erythema and edema of the right lower extremity below the knee, no weeping wounds. She was treated with Cefuroxime and flagyl for 7 days on 01/28- I am unclear if duration of abx was extended or what her course of improvement was. further clarifies that abx course was extended by PCP after initial 7d. She is getting Cefepime, initially ordered 1gm daily. Dosing for skin/skin structure infections is 2g IV BID. She has normal renal function. I will adjust dosing. (3) Hypoglycemia: Impression: this has been a continual issue for this patient. her struggles to keep her blood sugar up at home. She is on a CGM. Auto Brake Technician is working to get them one that alarms when glucose is low. She is getting IVF with glucose in them, and got an amp of D50 today. She needs a source of complex carbohydrates, and she refuses to wake up and eat. Dobhoff was attempted once, and she was very non compliant. She was awake and we offered to her to feed her. She refused to take food from us. Therefore, I did place a dobhoff feeding tube in this patient. I confirmed placement at bedside with X ray then pulled stylet. This tube was placed in the usual fashion without XR guidance. I confirmed placement myself and cleared tube for use. CPT 64754. (4) Hyperkalemia: Impression: resume lokelma 1o mg daily.. no toxicity syndrome at this time. repeat BMP in the AM. Laboratory Tests 02/17/25 02/18/25 19:36 04:28 Potassium 5.0 H 5.3 H (5) Chronic hyponatremia: Impression: Seems to be much improved on one gram of NaCl BID. I will continue this and recheck Na in the AM. Laboratory Tests 02/17/25 02/18/25 19:36 04:28 Sodium 132 L 136 (6) Abdominal pain: Impression: no complaints today of pain. There is gas in her stoma bag, her abdomen is not distended or tender. Qualifiers: Abdominal location: generalized Qualified Code(s): R10.84 - Generalized abdominal pain (7) Hypertension: Impression: home meds resumed. continue to monitor. I have spent 55 minutes in the care of this patient today. This includes time [id number], review and ordering of diagnostic imaging and laboratory studies and consultation with other providers, and is exclusive of time spent placing dobhoff.. Monitoring the patient's signs symptoms, evaluation of medication effectiveness and patient's response to treatment. non billable rounding Also of note, palliative care note reviewed from 02/17. Patient does have full code/full care POLST at home. has not yet been reviewed with patient and her , but this was briefly affirmed by Palliative care provider. Qualifiers: Hypertension type: primary hypertension Qualified Code(s): I10 - Essential (primary) hypertension
--- NOTE | 2025-02-18 13:31 | XRAY Report ---
PROCEDURE: XR Chest for Line Placement INDICATIONS: dobhoff placeement TECHNIQUE: One view of the chest was acquired. COMPARISON: 01/20/2025. FINDINGS: Surgical changes and devices: Enteric tube tip projecting over the expected location stomach. Desireea latasha visualized ACDF hardware. Lungs and pleura: No pleural effusions or pneumothorax. No consolidation. Mediastinum: Mediastinal contours appear normal. Heart size is normal. Bones and chest wall: No suspicious bony lesions. Overlying soft tissues appear unremarkable. IMPRESSION: No acute cardiopulmonary process. Enteric tube with tip projecting over the expected location of the stomach. Reviewed by: Ayaan Doty MD on 02/18/2025 1:30 PM PDT Approved by: Ayaan Doty MD on 02/18/2025 1:30 PM PDT Station ID: [id number]
--- NOTE | 2025-02-18 13:55 | PHARMACY PROGRESS NOTE ---
Best Possible Medication History Admit Date and Time: 02/17/25 [id number] Home Medications Medication Instructions Recorded Confirmed Type amlodipine 5 mg tablet 5 mg PO DAILY 06/24/24 02/18/25 History sodium zirconium cyclosilicate 10 10 g PO DAILY #30 ea 10/27/24 02/18/25 Rx gram oral powder packet (Lokelma) cholecalciferol (vitamin D3) 25 25 mcg PO DAILY 01/08/25 02/18/25 History mcg (1,000 unit) capsule (Vitamin D3) levothyroxine 25 mcg tablet 25 mcg PO DAILY 01/08/25 02/18/25 History thiamine mononitrate (vit B1) 100 100 mg PO DAILY 01/08/25 02/18/25 History mg tablet blood-glucose sensor (FreeStyle 02/18/25 02/18/25 History Beba 2 Plus Sensor device) carvedilol 3.125 mg tablet 3.125 mg PO ONCE 02/18/25 02/18/25 History mirtazapine 7.5 mg tablet 3.75 mg (1/2 x 7.5 mg) PO .[facility] #45 02/18/25 02/18/25 Rx tabs sodium chloride 1,000 mg soluble mg 02/18/25 History tablet Processed by: Pharmacy Medications reviewed in ED?: No Medication History completed: Yes Patient Interview: Pt unable to participate Secondary Source(s): Insurance records [facility] Statement: Per [facility] interview with patient and spouse. [employer] Rx records also reviewed. As the person ultimately responsible for medication therapy, providers are able to order a medication from an existing home medication list in [facility] via the "Reconcile Routine" prior to Confirmation of that medication by network support analyst. Such practice is discouraged except when the physician, in their clinical judgment, deems that a medical need exists for a medication without regard to previous use.
[2025-02-18] MEDS: SODIUM ZIRCONIUM CYCLOSILICATE 5 GM PACKET PO SCH (14:03)
[2025-02-18] MEDS: LORazepam 2 MG/ML VIAL IVP PRN (14:29)
[2025-02-18] MEDS: SODIUM ZIRCONIUM CYCLOSILICATE 5 GM PACKET PO ONE (17:53)
[2025-02-18] MEDS: MIRTAZAPINE 15 MG TABLET NG SCH (21:55)
[2025-02-19 05:49] LABS: BASOPHILS % (AUTO) 0.5 %; EOSINOPHILS # (AUTO) 0.1 10^3/uL (0.0-0.7); EOSINOPHILS % (AUTO) 0.8 %; HCT - HEMATOCRIT 28.4 % (37.0-47.0); HGB - HEMOGLOBIN 8.6 g/dL (12.0-16.0); LYMPHOCYTES # (AUTO) 0.6 10^3/uL (1.5-3.5); LYMPHOCYTES % (AUTO) 8.9 %; MEAN CORPUSCULAR HGB CONC 30.3 g/dL (32.0-36.0); MEAN PLATELET VOLUME 10.3 fL (7.9-10.8); MONOCYTES # (AUTO) 0.4 10^3/uL (0.0-1.0); MONOCYTES % (AUTO) 5.8 %; NEUTROPHILS # (AUTO) 5.5 10^3/uL (1.5-6.6); NEUTROPHILS % (AUTO) 83.7 %; NRBC ABSOLUTE COUNT (AUTO) 0.02 x10^3/uL; NUCLEATED RED BLOOD CELLS AUTO 0.3 /100WBC; PLT - PLATELET COUNT 162 10^3/uL (130-450); RED BLOOD COUNT 2.87 10^6/uL (4.20-5.40); RED CELL DISTRIBUTION WIDTH 22.3 % (12.0-15.0); WHITE BLOOD COUNT 6.6 x10^3/uL (4.8-10.8)
[2025-02-19 05:56] LABS: SLIDE REVIEW? Indicated
[2025-02-19 06:03] LABS: ALBUMIN 2.9 g/dL (3.2-5.5); BILIRUBIN,TOTAL 0.2 mg/dL (0.2-1.0); CALCIUM 8.8 mg/dL (8.5-10.3); CREATININE 0.6 mg/dL (0.6-1.3); TOTAL PROTEIN 5.8 g/dL (6.4-8.9)
[2025-02-19 06:17] LABS: MAGNESIUM 1.4 mg/dL (1.7-2.3); PHOSPHORUS 2.9 mg/dL (2.5-5.0)
[2025-02-19] MEDS: oxyCODONE 5 MG TABLET PO PRN (06:23)
[2025-02-19 06:29] LABS: PLATELET ESTIMATE, MANUAL NORMAL (130-450,000) (NORMAL); PLATELET MORPHOLOGY NORMAL APPEARANCE (NORMAL)
[2025-02-19] MEDS: ACETAMINOPHEN 325 MG TABLET PO PRN (07:49)
[2025-02-19] MEDS: CEFEPIME 1 GM VIAL IVP SCH (09:12)
[2025-02-19] MEDS: CEFEPIME 1 GM VIAL IVP ONE (11:56)
--- NOTE | 2025-02-19 15:12 | PROVIDER PROGRESS NOTE ---
Subjective Prog Note Date Prog Note Date: 02/19/25 Subjective Pt reports feeling: Improved Current Medications Current Medications Current Medications: Current Medications Generic Name Dose Route Start Last Admin Trade Name Freq PRN Reason Stop Dose Admin Acetaminophen 650 mg 02/17/25 23:35 02/19/25 07:49 Acetaminophen 325 Mg Tablet PO 650 mg Q4HR PRN Administration Pain 1 to 4, or Fever Amlodipine Besylate 5 mg 02/18/25 09:00 02/19/25 09:15 Amlodipine 5 Mg Tablet PO 5 mg DAILY FRANK Administration Cefepime HCl 2 gm 02/19/25 21:00 Cefepime 2 Gm Vial IV BID FRANK Heparin Sodium (Porcine) 5,000 unit 02/18/25 09:00 02/19/25 09:56 Heparin 5,000 Unit/Ml Vial SUBQ 5,000 unit BID FRANK Administration Dextrose/Sodium Chloride 1,000 mls @ 100 mls/hr 02/18/25 13:00 02/19/25 09:08 D5ns IV 100 mls/hr .Q10H FRANK Administration Levothyroxine Sodium 25 mcg 02/20/25 07:00 Levothyroxine 25 Mcg Tablet PO QDAC FRANK Lorazepam 0.5 mg 02/18/25 13:56 02/18/25 14:29 Lorazepam 2 Mg/Ml Vial IVP 0.5 mg Q2H PRN Administration Anxiety Mirtazapine 7.5 mg 02/18/25 21:00 02/18/25 21:55 Mirtazapine 15 Mg Tablet NG 7.5 mg HS FRANK Administration Ondansetron HCl 4 mg 02/17/25 23:35 Ondansetron 4 Mg/2 Ml Vial IVP Q6HR PRN Nausea / Vomiting Oxycodone HCl 5 mg 02/17/25 23:35 02/19/25 06:23 Oxycodone 5 Mg Tablet PO 5 mg Q4HR PRN Administration Pain 5 to 7 Sodium Chloride 1 gm 02/18/25 09:00 02/19/25 09:15 Sodium Chloride 1 Gm Tablet PO 1 gm BID FRANK Administration Sodium Chloride 10 ml 02/17/25 23:35 Sodium Chloride Flush 0.9% 10 Ml Syringe IVP PRN PRN NEEDED PER PROVIDER ORDERS Sodium Chloride 10 ml 02/18/25 01:00 02/19/25 09:16 Sodium Chloride Flush 0.9% 10 Ml Syringe IVP 10 ml 0100,0900,1700 FRANK Administration Sodium Zirconium Cyclosilicate 10 gm 02/18/25 09:00 02/19/25 09:20 Sodium Zirconium Cyclosilicate 5 Gm Packet PO 10 gm DAILY FRANK Administration Sterile Water 30 ml 02/19/25 21:00 Water For Injection,Sterile 10 Ml Vial MC BID FRANK Objective Vital Signs/Intake & Output Reviewed Vital Signs: Yes Vital Signs: Vital Signs x48h Temp Pulse Resp BP Pulse Ox 02/19/25 08:08 36.6 C 61 14 106/56 L 96 Intake & Output: Intake & Output 02/16/25 02/17/25 02/18/25 02/19/25 23:59 23:59 23:59 23:59 Intake Total 1000 / 1000 2384 / 2384 2494 / 2494 Output Total 465 / 465 2910 / 2910 2500 / 2500 Balance 535 / 535 -526 / -526 -6 / -6 Weight (kg) 41.5 kg 41 kg Objective General Appearance: positive No acute distress and Alert Eyes Bilateral: positive PERRL and Conjunctivae nml ENT: positive ENT inspection nml and Pharynx nml; negative Dry mucous membranes Neck: positive Nml inspection Respiratory: positive Chest non-tender Cardiovascular: positive Regular rate & rhythm Abdomen: positive Non-tender and No distention Skin: positive Other (erythema left lower extremity) Extremities: positive Other (LLE swelling) Neurologic/Psychiatric: positive Oriented x3 and Depressed mood/affect (Has lost a few friends recently. Now paranoid about dying and worried about her mother's health) Lab Results 02/19/25 05:40 02/19/25 05:40 Other Labs: Lab Results x24hrs 02/19/25 02/19/25 02/19/25 Range/Units 11:40 07:37 05:40 WBC (4.8-10.8) x10^3/uL RBC (4.20-5.40) 10^6/uL Hgb (12.0-16.0) g/dL Hct (37.0-47.0) % MCV (81.0-99.0) fL MCH (27.0-31.0) pg MCHC (32.0-36.0) g/dL RDW (12.0-15.0) % Plt Count (130-450) 10^3/uL MPV (7.9-10.8) fL Neut # (Auto) (1.5-6.6) 10^3/uL Lymph # (Auto) (1.5-3.5) 10^3/uL [place] # (Auto) (0.0-1.0) 10^3/uL Eos # (Auto) (0.0-0.7) 10^3/uL Baso # (Auto) (0.0-0.1) 10^3/uL Absolute Nucleated RBC x10^3/uL Nucleated RBC % /100WBC Manual Slide Review Platelet Estimate (NORMAL) Platelet Morphology (NORMAL) RBC Morph Micro Appear 2+ HYPOCHROMASIA (NORMAL) Sodium 142 (135-145) mmol/L Potassium 5.0 H (3.5-4.5) mmol/L Chloride 116 H (101-111) mmol/L Carbon Dioxide 23 (21-32) mmol/L Anion Gap 3.0 L (6-13) BUN 16 (6-20) mg/dL Creatinine 0.6 (0.6-1.3) mg/dL Estimated GFR (MDRD) 100 (>89) Glucose 102 (74-104) mg/dL POC Whole Bld Glucose 127 111 (70-100) mg/dL Calcium 8.8 (8.5-10.3) mg/dL Phosphorus 2.9 (2.5-5.0) mg/dL Magnesium 1.4 L (1.7-2.3) mg/dL Total Bilirubin 0.2 (0.2-1.0) mg/dL AST 23 (10-42) IU/L ALT 34 (10-60) IU/L Alkaline Phosphatase 93 (42-121) IU/L Total Protein 5.8 L (6.4-8.9) g/dL Albumin 2.9 L (3.2-5.5) g/dL Globulin 2.9 (2.1-4.2) g/dL Albumin/Globulin Ratio 1.0 (1.0-2.2) Prealbumin 28 (17-34) mg/dL Nasal Screen MRSA (PCR) (NEGATIVE) 02/19/25 02/18/25 02/18/25 Range/Units 05:40 20:44 16:47 WBC 6.6 (4.8-10.8) x10^3/uL RBC 2.87 L (4.20-5.40) 10^6/uL Hgb 8.6 L (12.0-16.0) g/dL Hct 28.4 L (37.0-47.0) % MCV 99.0 (81.0-99.0) fL MCH 30.0 (27.0-31.0) pg MCHC 30.3 L (32.0-36.0) g/dL RDW 22.3 H (12.0-15.0) % Plt Count 162 (130-450) 10^3/uL MPV 10.3 (7.9-10.8) fL Neut # (Auto) 5.5 (1.5-6.6) 10^3/uL Lymph # (Auto) 0.6 L (1.5-3.5) 10^3/uL [place] # (Auto) 0.4 (0.0-1.0) 10^3/uL Eos # (Auto) 0.1 (0.0-0.7) 10^3/uL Baso # (Auto) 0.0 (0.0-0.1) 10^3/uL Absolute Nucleated RBC 0.02 x10^3/uL Nucleated RBC % 0.3 /100WBC Manual Slide Review Indicated Platelet Estimate NORMAL (130-450,000) (NORMAL) Platelet Morphology NORMAL APPEARANCE (NORMAL) RBC Morph Micro Appear 2+ ANISOCYTOSIS (NORMAL) Sodium (135-145) mmol/L Potassium (3.5-4.5) mmol/L Chloride (101-111) mmol/L Carbon Dioxide (21-32) mmol/L Anion Gap (6-13) BUN (6-20) mg/dL Creatinine (0.6-1.3) mg/dL Estimated GFR (MDRD) (>89) Glucose (74-104) mg/dL POC Whole Bld Glucose 84 91 (70-100) mg/dL Calcium (8.5-10.3) mg/dL Phosphorus (2.5-5.0) mg/dL Magnesium (1.7-2.3) mg/dL Total Bilirubin (0.2-1.0) mg/dL AST (10-42) IU/L ALT (10-60) IU/L Alkaline Phosphatase (42-121) IU/L Total Protein (6.4-8.9) g/dL Albumin (3.2-5.5) g/dL Globulin (2.1-4.2) g/dL Albumin/Globulin Ratio (1.0-2.2) Prealbumin (17-34) mg/dL Nasal Screen MRSA (PCR) (NEGATIVE) 02/18/25 Range/Units 16:20 WBC (4.8-10.8) x10^3/uL RBC (4.20-5.40) 10^6/uL Hgb (12.0-16.0) g/dL Hct (37.0-47.0) % MCV (81.0-99.0) fL MCH (27.0-31.0) pg MCHC (32.0-36.0) g/dL RDW (12.0-15.0) % Plt Count (130-450) 10^3/uL MPV (7.9-10.8) fL Neut # (Auto) (1.5-6.6) 10^3/uL Lymph # (Auto) (1.5-3.5) 10^3/uL [place] # (Auto) (0.0-1.0) 10^3/uL Eos # (Auto) (0.0-0.7) 10^3/uL Baso # (Auto) (0.0-0.1) 10^3/uL Absolute Nucleated RBC x10^3/uL Nucleated RBC % /100WBC Manual Slide Review Platelet Estimate (NORMAL) Platelet Morphology (NORMAL) RBC Morph Micro Appear (NORMAL) Sodium (135-145) mmol/L Potassium (3.5-4.5) mmol/L Chloride (101-111) mmol/L Carbon Dioxide (21-32) mmol/L Anion Gap (6-13) BUN (6-20) mg/dL Creatinine (0.6-1.3) mg/dL Estimated GFR (MDRD) (>89) Glucose (74-104) mg/dL POC Whole Bld Glucose (70-100) mg/dL Calcium (8.5-10.3) mg/dL Phosphorus (2.5-5.0) mg/dL Magnesium (1.7-2.3) mg/dL Total Bilirubin (0.2-1.0) mg/dL AST (10-42) IU/L ALT (10-60) IU/L Alkaline Phosphatase (42-121) IU/L Total Protein (6.4-8.9) g/dL Albumin (3.2-5.5) g/dL Globulin (2.1-4.2) g/dL Albumin/Globulin Ratio (1.0-2.2) Prealbumin (17-34) mg/dL Nasal Screen MRSA (PCR) NEGATIVE (NEGATIVE) Sepsis Event Note (H) Evaluation Current Stage of Sepsis: Sepsis Possible source of Sepsis: positive Skin/soft tissue Sepsis Criteria Sepsis Criteria: Recorded Temperature greater than 38.3C or Less than 36C and WBC count greater than 12,000 or less than 4000 Assessment/Plan Problem List (1) Sepsis: Impression: she comes in last night, confused, with leukopenia, hypothermia, elevated lactate. She was admitted under sepsis criteria. She is getting cefepime, blood cutures are pending. Lactate needs to be rechecked (normal 0.6). I will order a MRSA screen and start Vancomycin if it is positive (it is negative.). 02/19/2025: Continuing cefepime, dosed for skin infection. Monitor renal function with daily BMP to watch for nephrotoxicity She had a recent failure of cefuroxime and Flagyl for the same cellulitis. WBC has improved to 6.6 today. VSS, NAD Qualifiers: Sepsis type: sepsis due to unspecified organism Sepsis acute organ dysfunction status: without acute organ dysfunction Qualified Code(s): A41.9 - Sepsis, unspecified organism (2) Cellulitis of leg, right: Impression: there is erythema and edema of the right lower extremity below the knee, no weeping wounds. She was treated with Cefuroxime and flagyl for 7 days on 01/28- I am unclear if duration of abx was extended or what her course of improvement was. further clarifies that abx course was extended by PCP after initial 7d. (3) Hypoglycemia: Impression: this has been a continual issue for this patient. her struggles to keep her blood sugar up at home. She is on a CGM. [employer] is working to get them one that alarms when glucose is low. She is getting IVF with glucose in them, and got an amp of D50 today. She needs a source of complex carbohydrates, and she refuses to wake up and eat. Dobhoff was attempted once, and she was very non compliant. She was awake and we offered to her to feed her. She refused to take food from us. 02/19/2025: Good effect with Dobbhoff tube and tube feed. She is much more alert today. I am not sure if she is seen an sorter/assay tech. I asked her, but she was unsure. I am checking a morning cortisol level on her to assess for adrenal insufficiency. She will likely need fasting hypoglycemia studies, I believe these would be more appropriately performed in the outpatient setting in an endocrinology office. If her oral intake is good, we will discontinue the Dobbhoff tube (4) Hyperkalemia: Impression: She takes Lokelma at home for this. It was restarted yesterday. Her potassium is 5 today, continue Lokelma, recheck BMP in a.m. (5) Chronic hyponatremia: Impression: Repleted and resolved. Continue 1 g sodium tabs twice daily and daily BMP (6) Abdominal pain: Impression: no complaints today of pain. There is gas in her stoma bag, her abdomen is not distended or tender. Qualifiers: Abdominal location: generalized Qualified Code(s): R10.84 - Generalized abdominal pain (7) Hypertension: Impression: home meds resumed. continue to monitor. Qualifiers: Hypertension type: primary hypertension Qualified Code(s): I10 - Essential (primary) hypertension
[2025-02-19] MEDS: CEFEPIME 2 GM VIAL IV SCH (21:46)
[2025-02-20] MEDS: LEVOTHYROXINE 25 MCG TABLET PO SCH (06:03)
[2025-02-20 08:30] LABS: HCT - HEMATOCRIT 26.9 % (37.0-47.0); HGB - HEMOGLOBIN 8.5 g/dL (12.0-16.0); MEAN CORPUSCULAR HEMOGLOBIN 30.9 pg (27.0-31.0); MEAN CORPUSCULAR HGB CONC 31.6 g/dL (32.0-36.0); MEAN CORPUSCULAR VOLUME 97.8 fL (81.0-99.0); MEAN PLATELET VOLUME 10.1 fL (7.9-10.8); RED BLOOD COUNT 2.75 10^6/uL (4.20-5.40); RED CELL DISTRIBUTION WIDTH 21.9 % (12.0-15.0); WHITE BLOOD COUNT 3.4 x10^3/uL (4.8-10.8)
[2025-02-20 08:46] LABS: CALCIUM 9.4 mg/dL (8.5-10.3); CREATININE 0.6 mg/dL (0.6-1.3)
--- NOTE | 2025-02-20 12:47 | PROVIDER PROGRESS NOTE ---
Subjective Subjective Subjective: Patient is feeling much better today. She is eating and drinking well. She is able to eat about 100% of her breakfast. She states her appetite has returned. She has no pain in her right lower leg. She thinks that the redness and swelling is improving. Current Medications Current Medications Current Medications: Current Medications Generic Name Dose Route Start Last Admin Trade Name Freq PRN Reason Stop Dose Admin Acetaminophen 650 mg 02/17/25 23:35 02/20/25 00:19 Acetaminophen 325 Mg Tablet PO 650 mg Q4HR PRN Administration Pain 1 to 4, or Fever Amlodipine Besylate 5 mg 02/18/25 09:00 02/20/25 09:20 Amlodipine 5 Mg Tablet PO 5 mg DAILY FRANK Administration Cefepime HCl 2 gm 02/19/25 21:00 02/20/25 09:20 Cefepime 2 Gm Vial IV 2 gm BID FRANK Administration Heparin Sodium (Porcine) 5,000 unit 02/18/25 09:00 02/20/25 09:20 Heparin 5,000 Unit/Ml Vial SUBQ 5,000 unit BID FRANK Administration Levothyroxine Sodium 25 mcg 02/20/25 07:00 02/20/25 06:03 Levothyroxine 25 Mcg Tablet PO 25 mcg QDAC FRANK Administration Mirtazapine 7.5 mg 02/18/25 21:00 02/19/25 21:46 Mirtazapine 15 Mg Tablet NG 7.5 mg HS FRANK Administration Ondansetron HCl 4 mg 02/17/25 23:35 Ondansetron 4 Mg/2 Ml Vial IVP Q6HR PRN Nausea / Vomiting Oxycodone HCl 5 mg 02/17/25 23:35 02/19/25 06:23 Oxycodone 5 Mg Tablet PO 5 mg Q4HR PRN Administration Pain 5 to 7 Saccharomyces Boulardii 250 mg 02/20/25 17:00 Saccharomyces Boulardii 250 Mg Capsule PO BIDWM FRANK Sodium Chloride 1 gm 02/18/25 09:00 02/20/25 09:20 Sodium Chloride 1 Gm Tablet PO 1 gm BID FRANK Administration Sodium Chloride 10 ml 02/17/25 23:35 Sodium Chloride Flush 0.9% 10 Ml Syringe IVP PRN PRN NEEDED PER PROVIDER ORDERS Sodium Chloride 10 ml 02/18/25 01:00 02/20/25 09:21 Sodium Chloride Flush 0.9% 10 Ml Syringe IVP 10 ml 0100,0900,1700 FRANK Administration Sodium Zirconium Cyclosilicate 10 gm 02/18/25 09:00 02/20/25 09:21 Sodium Zirconium Cyclosilicate 5 Gm Packet PO 10 gm DAILY FRANK Administration Sterile Water 30 ml 02/19/25 21:00 02/20/25 09:21 Water For Injection,Sterile 10 Ml Vial MC 30 ml BID FRANK Administration Objective Vital Signs/Intake & Output Reviewed Vital Signs: Yes Vital Signs: Vital Signs x48h Temp Pulse Resp BP Pulse Ox 02/20/25 11:44 97.7 F 72 16 155/94 H 96 02/20/25 07:45 98.2 F 68 18 149/81 H 97 Intake & Output: Intake & Output 02/17/25 02/18/25 02/19/25 02/20/25 23:59 23:59 23:59 23:59 Intake Total 1000 / 1000 2384 / 2384 4193 / 4193 1927 / 1927 Output Total 465 / 465 2910 / 2910 5650 / 5650 1325 / 1325 Balance 535 / 535 -526 / -526 -1457 / -1457 602 / 602 Weight (kg) 41.5 kg 41 kg 43.5 kg Objective General Appearance: positive No acute distress and Alert Eyes Bilateral: positive PERRL and Conjunctivae nml ENT: positive ENT inspection nml and Pharynx nml; negative Dry mucous membranes Neck: positive Nml inspection Respiratory: positive Chest non-tender and No respiratory distress; negative Wheezes, Rales or Rhonchi Cardiovascular: positive Regular rate & rhythm, No murmur and No gallop Abdomen: positive Non-tender, No distention and Other (ileostomy in place with no apparent drainage noted) Back: positive Nml inspection; negative CVA tenderness (R) or CVA tenderness (L) Skin: positive Skin rash and Other (erythema right lower extremity, some excoriation noted on right rice, no fluctuance noted) Extremities: positive Other (RLE swelling) Neurologic/Psychiatric: positive Oriented x3 and Depressed mood/affect (Has lost a few friends recently. Now paranoid about dying and worried about her mother's health) Lab Results 02/20/25 08:24 02/20/25 08:24 Other Labs: Lab Results x24hrs 02/20/25 02/20/25 02/19/25 Range/Units 08:24 05:49 23:59 WBC 3.4 L (4.8-10.8) x10^3/uL RBC 2.75 L (4.20-5.40) 10^6/uL Hgb 8.5 L (12.0-16.0) g/dL Hct 26.9 L (37.0-47.0) % MCV 97.8 (81.0-99.0) fL MCH 30.9 (27.0-31.0) pg MCHC 31.6 L (32.0-36.0) g/dL RDW 21.9 H (12.0-15.0) % Plt Count 181 (130-450) 10^3/uL MPV 10.1 (7.9-10.8) fL Sodium 143 (135-145) mmol/L Potassium 5.0 H (3.5-4.5) mmol/L Chloride 119 H (101-111) mmol/L Carbon Dioxide 19 L (21-32) mmol/L Anion Gap 5.0 L (6-13) BUN 18 (6-20) mg/dL Creatinine 0.6 (0.6-1.3) mg/dL Estimated GFR (MDRD) 100 (>89) Glucose 118 H (74-104) mg/dL POC Whole Bld Glucose 87 112 (70-100) mg/dL Calcium 9.4 (8.5-10.3) mg/dL Cortisol AM Sample 12.4 ug/dL 02/19/25 02/19/25 Range/Units 20:45 16:44 WBC (4.8-10.8) x10^3/uL RBC (4.20-5.40) 10^6/uL Hgb (12.0-16.0) g/dL Hct (37.0-47.0) % MCV (81.0-99.0) fL MCH (27.0-31.0) pg MCHC (32.0-36.0) g/dL RDW (12.0-15.0) % Plt Count (130-450) 10^3/uL MPV (7.9-10.8) fL Sodium (135-145) mmol/L Potassium (3.5-4.5) mmol/L Chloride (101-111) mmol/L Carbon Dioxide (21-32) mmol/L Anion Gap (6-13) BUN (6-20) mg/dL Creatinine (0.6-1.3) mg/dL Estimated GFR (MDRD) (>89) Glucose (74-104) mg/dL POC Whole Bld Glucose 109 122 (70-100) mg/dL Calcium (8.5-10.3) mg/dL Cortisol AM Sample ug/dL Sepsis Event Note (H) Evaluation Current Stage of Sepsis: Sepsis Possible source of Sepsis: positive Skin/soft tissue Sepsis Criteria Sepsis Criteria: Recorded Temperature greater than 38.3C or Less than 36C and WBC count greater than 12,000 or less than 4000 Assessment/Plan Problem List (1) Sepsis: Impression: Patient presented with leukopenia, hypothermia. Source was cellulitis of right lower extremity. Failed outpatient oral antibiotics. Today is day 2 of cefepime. Patient responding well to antibiotics, will likely switch to oral antibiotics tomorrow. Blood cultures no growth to date. No fluctuence or abscess noted. Qualifiers: Sepsis acute organ dysfunction status: without acute organ dysfunction Sepsis type: sepsis due to unspecified organism Qualified Code(s): A41.9 - Sepsis, unspecified organism (2) Cellulitis of leg, right: Impression: See above. (3) Hypoglycemia: Impression: Patient with repeated episodes of hypoglycemia at home. She does have a continuous glucose monitor. Her provides her with glucose tablets when her sugars are low. When she presented, she was altered due to sepsis, and as such a Dobbhoff tube was placed. She received tube feeds for about a day. She is now eating and drinking well, and is awake. She was also started on D5 IV fluids. Will stop both D5 fluids and tube feeds today. Continue to monitor glucose every 6 hours. She likely needs good and close follow-up with endocrinology for further testing. (4) Hyperkalemia: Impression: Continue home Lokelma. (5) Chronic hyponatremia: Impression: Resolved. Continue 1 g sodium tabs twice daily. (6) Hypertension: Impression: Continue amlodpine. Qualifiers: Hypertension type: primary hypertension Qualified Code(s): I10 - Essential (primary) hypertension
[2025-02-20] MEDS: SACCHAROMYCES BOULARDII 250 MG CAPSULE PO SCH (17:02)
[2025-02-20] MEDS: diphenhydrAMINE 25 MG CAPSULE PO PRN (21:41)
[2025-02-21 01:29] VITALS: O2SAT 96
[2025-02-21 05:55] LABS: HCT - HEMATOCRIT 25.1 % (37.0-47.0); HGB - HEMOGLOBIN 7.9 g/dL (12.0-16.0); MEAN CORPUSCULAR HEMOGLOBIN 30.9 pg (27.0-31.0); MEAN CORPUSCULAR HGB CONC 31.5 g/dL (32.0-36.0); RED BLOOD COUNT 2.56 10^6/uL (4.20-5.40); RED CELL DISTRIBUTION WIDTH 22.2 % (12.0-15.0); WHITE BLOOD COUNT 5.5 x10^3/uL (4.8-10.8)
[2025-02-21 06:21] LABS: MAGNESIUM 1.2 mg/dL (1.7-2.3); PHOSPHORUS 3.7 mg/dL (2.5-5.0)
[2025-02-21 06:24] LABS: CALCIUM 9.4 mg/dL (8.5-10.3); CREATININE 0.8 mg/dL (0.6-1.3); POTASSIUM 5.6 mmol/L (3.5-4.5)
[2025-02-21 08:22] VITALS: BP 105/73; TEMP 97.5
[2025-02-21] MEDS ORDERED: CONCENTRATED ALBUTEROL NEB 2.5 MG/0.5 ML INH STA (11:45)
[2025-02-21] MEDS: DEXTROSE 50% ABBOJECT 25 GM/50 ML SYRINGE IVP ONE (12:24)
[2025-02-21] MEDS: INSULIN REGULAR, HUMAN 300 UNIT/3 ML PEN IVP ONE (12:24)
[2025-02-21 14:28] LABS: CALCIUM 9.5 mg/dL (8.5-10.3); CREATININE 0.9 mg/dL (0.6-1.3); POTASSIUM 4.5 mmol/L (3.5-4.5)
--- NOTE | 2025-02-21 14:32 | Discharge Summary ---
"Discharge Summary Admit Date: 02/17/25 Discharge Date: 02/21/25 Discharging Provider: Dr. Mirella Little Primary Care Provider: Diamante Yancey Code Status: Attempt Resuscitation Discharge Facility Name: Home DIAGNOSES Admission Diagnoses: Cellulitis of right leg Hypertension Hypokalemia Chronic hyponatremia Abdominal pain Sepsis Discharge Diagnoses with Status of Each Condition: Sepsisresolved. Patient's leukopenia has resolved as has her hypothermia. She failed outpatient oral antibiotics and completed 5-day course of cefepime. Blood cultures with no growth to date. Her leg looks improved. She needs close follow-up with primary care provider. Cellulitis of right legresolved. Hypoglycemiathis has been an ongoing issue for this patient. She simply has no reserves. Her takes very good care of her, and is continue to be advised to give her small frequent meals throughout the day. She should also follow-up with wood lather to see if there is any further hormonal testing that needs to be done in the outpatient setting to get to the underlying cause of her persistent hypoglycemia. Hyperkalemiaresolved. Continue her Lokelma twice a day. Chronic hyponatremiaresolved. In fact, advised to decrease her salt tab to once a day. Hypertensioncontinue amlodipine. HPI History of Present Illness: Avery Cameron: This is a 65-year-old woman with history of ulcerative colitis on Humira with an ostomy in place, hypertension, hyponatremia, recurrent delirium, and hyperkalemia with preserved renal function. She presents by ambulance with complaints of right leg swelling of a week duration. She had an ultrasound of her leg 4 days ago which was negative for DVT. She was started on oral antibiotics during that time, but swelling and redness continued to worsen. In the ED, she was hypothermic, lethargic. She had an elevated lactic acid and low WBC. She met Sepsis criteria. Due to worsening cellulitis and the development of sepsis, I will admit for further management. CONSULTS | PROCEDURES Consultations: - Procedures: Abdomen/pelvis CT, chest x-ray HOSPITAL COURSE Hospital Course: Patient is a 65-year-old female with a history of inflammatory bowel disease s/p ileostomy who presented with fatigue, lethargy, and was found to be hypothermic as well as leukopenic. She had cellulitis of her right lower leg. She was prescribed antibiotics by her primary care doctor without relief. When she came in, she was septic as described above. She was started on cefepime and vancomycin. Her symptoms improved. During her stay here, she was also very lethargic, and was unable to eat an adequate amount. An NG tube was placed for tube feeds for short amount time, and she was placed on D5 drip as well. As her sepsis resolved, she started to wake up again. She is now able to eat appropriately. is been at bedside the whole stay, and he has been updated regularly. He is advised to continue feeding her small regular meals to keep her sugars up. He was also advised to follow-up with the primary care provider very closely, and possibly follow-up with an wood lather as well. He demonstrated understanding, and patient was deemed stable for discharge home. ALLERGIES Allergies Allergy/AdvReac Type Severity Reaction Status Date / Time Penicillins Allergy Anaphylaxis Verified 01/20/25 15:17 vancomycin Allergy Rash Verified 01/20/25 15:17 methocarbamol AdvReac Dizziness Verified 01/20/25 15:17 MEDICATIONS Ambulatory Orders Medication Instructions Recorded Confirmed amlodipine 5 mg tablet 5 mg PO DAILY 06/24/24 02/18/25 sodium zirconium cyclosilicate 10 10 g PO DAILY #30 ea 10/27/24 02/18/25 gram oral powder packet (Lokelma) cholecalciferol (vitamin D3) 25 25 mcg PO DAILY 01/08/25 02/18/25 mcg (1,000 unit) capsule (Vitamin D3) levothyroxine 25 mcg tablet 25 mcg PO DAILY 01/08/25 02/18/25 thiamine mononitrate (vit B1) 100 100 mg PO DAILY 01/08/25 02/18/25 mg tablet blood-glucose sensor (FreeStyle 02/18/25 02/18/25 Ebba 2 Plus Sensor device) mirtazapine 7.5 mg tablet 3.75 mg (1/2 x 7.5 mg) PO .QHS #45 02/18/25 02/18/25 tabs sodium chloride 1,000 mg soluble mg 02/18/25 tablet Saccharomyces boulardii 250 mg 250 mg PO BIDWM #14 caps 02/21/25 capsule sodium zirconium cyclosilicate 5 10 g PO BID #30 ea 02/21/25 gram oral powder packet (Lokelma) PHYSICAL EXAM AT DISCHARGE Vital Signs: Vital Signs x48h Temp Pulse Resp BP Pulse Ox 02/21/25 08:22 97.5 F L 81 18 105/73 96 General Appearance: positive No acute distress and Alert; negative Anxious Eyes Bilateral: positive Normal inspection, PERRL and EOMI ENT: positive ENT inspection nml, Pharynx nml and No signs of dehydration Neck: positive Nml inspection, Thyroid nml and No JVD Respiratory: positive Chest non-tender, No respiratory distress and Breath sounds nml; negative Wheezes, Rales or Rhonchi Cardiovascular: positive Regular rate & rhythm, No murmur and No gallop Peripheral Pulses: positive 2+ Abdomen: positive Non-tender, No organomegaly, No distention and Other (ileostomy in place) Back: positive Nml inspection; negative CVA tenderness (R) or CVA tenderness (L) Skin: positive Color nml, No rash, Warm and Dry Extremities: positive Non-tender, Full ROM, Nml appearance and No pedal edema Neurologic/Psychiatric: positive Oriented x3, Motor nml and Mood/affect nml LABS 02/21/25 05:47 02/21/25 13:56 SEPSIS Current Stage of Sepsis: Resolved (Treated during hospital stay) Possible source of Sepsis: Skin/soft tissue Sepsis Criteria: Recorded Temperature greater than 38.3C or Less than 36C and WBC count greater than 12,000 or less than 4000 FOLLOW UP Follow Up: Follow up with primary care provider. Follow up with wood lather. TIME SPENT Time Spent in Discharge (Minutes): 35 Discharge Plan Discharge Patient Disposition: Home, Self Care Condition: Fair Prescriptions: New Saccharomyces boulardii 250 mg Capsule 250 mg PO BIDWM Qty: 14 0RF Lokelma 5 gram Powder In Packet 10 g PO BID Qty: 30 0RF Continued amlodipine 5 MG tablet 5 mg PO DAILY Patient Comments: take 1 tablet by mouth once daily Lokelma 10 gram powder in packet 10 g PO DAILY Qty: 30 2RF thiamine mononitrate (vit B1) 100 mg tablet 100 mg PO DAILY cholecalciferol (vitamin D3) [Vitamin D3] 25 mcg (1,000 unit) capsule 25 mcg PO DAILY levothyroxine 25 mcg tablet 25 mcg PO DAILY sodium chloride 1,000 mg tablet,soluble Patient Comments: take 2 tablets by mouth twice a day (DME) [employer] Beba 2 Plus Sensor Device See Rx Instructions .ROUTE Rx Instructions: As directed mirtazapine 7.5 mg tablet 3.75 mg PO .QHS Qty: 45 2RF Rx Instructions: Take 1/2 tablet PO at bedtime Discontinued carvedilol 3.125 mg tablet 3.125 mg PO ONCE Patient Comments: take 1 tablet by mouth every morning for HEART RATE CONTROL Activity Restrictions: Activity as Tolerated Diet: Regular Health Concerns: You came in because you were confused, low in temperature, and had swelling and redness in your right leg. We treated you for an infection of the skin, and you started waking up. You required some tube feedings to help with your sugars, but now they are back to normal. In terms of medication changesplease take your Lokelma twice a day if you can to keep your potassium at a normal level. I have decreased your salt tabs to just once a day as your sodium has been normal or high while you have been here. I would like you to follow-up with a wood lather, or a sugar and hormone doctor, when you are discharged. Your primary care provider can provide you with this referral. This is very important to get a check of your hormones and hopefully prevent frequent emergency room visits. Please continue to eat small and frequent meals during the day, and snack frequently as you have been doing with the help of your . You have completed your IV antibiotic course. We are glad you are feeling better, thanks for letting us take care of you. Print Language: German Patient Instructions: Blood Sugar Low Ch Stand Alone Forms: PCP List Follow-up Care: Amy Yancey ARNP, MSN [Primary Care Provider] -"
[2025-02-21] MEDS ORDERED: SODIUM ZIRCONIUM CYCLOSILICATE 5 GM PACKET PO SCH (21:00)
[2025-02-22] MEDS ORDERED: SODIUM CHLORIDE 1 GM TABLET PO SCH (09:00)
== END 2025-02-21 18:00 | disposition home or self-care (01) | DRG 872 ==
LOC: MS3 19:15 → ED 19:15 → MS3 02-18 00:15
PROVIDERS: ADMIT Hospitalist; ATTEND Hospitalist

== ENCOUNTER 2025-03-02 01:02 | Observation (INO) ==
--- OUTSIDE RECORDS SUMMARY | 2025-03-02 01:44 | EXTERNAL MEDICAL SUMMARY RPT | Continuity of Care Document ---
Author Organization [facility] Address [address] [place] [id number] Phone Problems date description facility 2024-12-02 11:53 Spinal stenosis, lum bar region with [facility]genic [facility]audication [facility]24-12-04 07:18 Hypoglycemia, unspecified [facility] 2024-12-04 07:18 Hypo-osmolality and [facility]onatremi a [facility] 2024-12-04 07:18 Encephalopathy, unspecified [facility] 2024-12-04 07:18 Ulcerative colitis, unspecified, without complications [facility] 2024-12-04 07:18 Disorientation, [facility] 2024-12-19 15:17 Spinal stenosis, lum bar region with neurogenic claudication [facility] 2024-12-24 10:49 Other generalized ep ilepsy and epileptic syndromes, [facility] 2024-12-30 09:53 Hypoglycemia, unspecified On license of [facility] 2024-12-30 09:53 Unspecified convulsions [facility] 2025-01-01 10:37 Type 2 diabetes abimbola itus with hypoglycemia without coma [facility] 2025-01-01 11:31 Spinal stenosis, lum bar region with neurogenic claudication [facility] 2025-01-01 14:50 Altered mental status, unspecif ied [facility] 2025-01-01 14:51 Altered mental status, unspecif d [facility] 2025-01-03 06:59 Type 2 diabetes abimbola itus with hypoglycemia without coma [facility] 2025-01-03 06:59 Disorientation, unspecified [facility] 2025-01-06 10:02 Essential (primary) hypertensio n [facility] 2025-01-06 10:20 Essential (primary) hypertensio n [facility] 2025-01-07 12:10 Type 2 diabetes abimbola itus with hypoglycemia without coma [facility] 2025-01-07 12:10 Disorientation, unspecified [facility] 2025-01-07 12:11 Hypoglycemia, unspecified On license of [facility] 2025-01-07 12:11 Unspecified convulsions [facility] 2025-01-07 12:13 Altered mental status, unspecif ied [facility] 2025-01-07 12:14 Hypoglycemia, unspecified On license of [facility] 2025-01-07 12:14 Hypo-osmolality and hyponatremi a Counts Include [facility] 2025-01-07 12:14 Encephalopathy, unspecified [facility] 2025-01-07 12:14 Ulcerative colitis, unspecified, without complications [facility] 2025-01-07 12:14 Disorientation, unspecified [facility] 2025-01-07 12:16 Spinal stenosis, lum bar region with neurogenic claudication [facility] 2025-01-07 14:42 Spinal stenosis, lum bar region with neurogenic claudication Counts Include [facility] 2025-01-08 07:06 Radiculopathy, lumbar region [facility] 2025-01-08 07:25 Hyperkalemia Counts Include [facility] 2025-01-08 07:34 Hyperkalemia Counts Include [facility] 2025-01-08 07:44 [facility], [facility] 07:44 Weakness Counts Include [facility] 2025-01-08 07:48 Hypoglycemia, unspecified On license of [facility] 2025-01-08 07:48 Hypo-osmolality and hyponatremi a Counts Include [facility] 2025-01-08 07:48 Encephalopathy, unspecified [facility] 2025-01-08 07:48 Ulcerative colitis, unspecified, without complications Counts Include [facility] 2025-01-08 07:48 Disorientation, unspecified [facility] 2025-01-08 07:53 Hypoglycemia, unspecified On license of [facility] 2025-01-08 07:53 Unspecified convulsions Counts [facility] 2025-01-08 07:54 Type 2 diabetes abimbola itus with hypoglycemia without coma Counts Include [facility] 2025-01-08 07:54 Disorientation, unspecified [facility] 2025-01-08 07:55 Type 2 diabetes abimbola itus with hypoglycemia without coma Counts Include [facility] 2025-01-08 07:55 Disorientation, unspecified [facility] 2025-01-08 07:56 Hypoglycemia, unspecified On license of [facility] 2025-01-08 07:56 Unspecified convulsions Counts [facility] 2025-01-08 07:57 Hypoglycemia, unspecified On license of [facility] 2025-01-08 07:57 Hypo-osmolality and hyponatremi a Counts Include [facility] 2025-01-08 07:57 Encephalopathy, unspecified [facility] 2025-01-08 07:57 Ulcerative colitis, unspecified, without complications Counts Include [facility] 2025-01-08 07:57 Disorientation, unspecified [facility] 2025-01-08 11:28 Essential (primary) hypertensio [facility] 2025-01-08 23:51 Hypoglycemia, unspecified On license of [facility] 2025-01-08 23:51 Essential (primary) hypertensio [facility] 2025-01-08 23:51 Disorientation, unspecified [facility] 2025-01-09 07:02 Hypoglycemia, unspecified On license of [facility] 2025-01-09 07:02 Essential (primary) hypertensio [facility] 2025-01-09 07:02 Disorientation, unspecified [facility] 2025-01-09 12:23 Hypoglycemia, unspecified On license of [facility] 2025-01-09 12:23 Essential (primary) hypertensio [facility] 2025-01-09 12:23 Disorientation, unspecified [facility] 2025-01-09 12:26 Hypoglycemia, unspecified On license of [facility] 2025-01-09 12:26 Essential (primary) hypertensio [facility] 2025-01-09 12:26 Disorientation, unspecified [facility] 2025-01-09 12:51 Hypoglycemia, unspecified On license of [facility] 2025-01-09 12:51 Essential (primary) hypertensio [facility] 2025-01-09 12:51 Disorientation, unspecified [facility] 2025-01-09 13:28 Hypoglycemia, unspecified On license of [facility] 2025-01-09 13:28 Essential (primary) hypertensio n Counts Include [facility] 2025-01-09 13:28 Disorientation, unspecified [facility] 2025-01-10 07:08 Radiculopathy, lumbar region [facility] 2025-01-10 07:09 Radiculopathy, lumbar region [facility] 2025-01-10 07:10 Hyperkalemia Counts Include [facility] 2025-01-10 08:21 Hypoglycemia, unspecified On license of [facility] 2025-01-10 08:21 [facility]10 08:21 Disorientation, unspecified [facility] 2025-01-21 08:30 Hyperkalemia Counts Include [facility] 2025-01-21 08:30 Crohn's disease, unspecified, w ithout complications Counts Include [facility] 2025-01-21 08:30 Disorientation, unspecified [facility] 2025-01-21 08:30 Shock, unspecified [facility] 2025-01-21 08:34 Hyperkalemia Counts Include [facility] 2025-01-21 08:34 Crohn's disease, unspecified, w ithout complications Counts Include [facility] 2025-01-21 08:34 Disorientation, unspecified [facility] 2025-01-21 08:34 Shock, unspecified [facility] 2025-01-21 15:39 Thrombocytopenia, unspecified [facility] 2025-01-21 15:39 Type 2 diabetes abimbola itus with hypoglycemia without coma Counts Include [facility] 2025-01-21 15:39 Hypoglycemia, unspecified On license of [facility] 2025-01-21 15:39 Hyperkalemia Counts Include [facility] 2025-01-21 15:39 Alcohol dependence with withdra wal, unspecified Counts Include [facility] 2025-01-21 15:39 Alcohol use, unspecified, uncom plicated Counts Include [facility] 2025-01-21 15:39 Encephalopathy, unspecified [facility] 2025-01-21 15:39 [facility]ential [facility] 2025-01-21 15:39 Crohn's disease of l arge intestine without complications Counts Include [facility] 2025-01-21 15:39 Crohn's disease, unspecified, w ithout complications Counts Include [facility] 2025-01-21 15:39 Crohn's disease, uns pecified, with unspecified complications Counts Include [facility] 2025-01-21 15:39 Ulcerative colitis, unspecified, without complications Counts Include [facility] 2025-01-21 15:39 Intestinal malabsorption, unspe cified Counts Include [facility] 2025-01-21 15:39 Acute cystitis without hematuri a Counts Include [facility] 2025-01-21 15:39 Urinary tract infection, site n ot specified Counts Include [facility] 2025-01-21 15:39 Generalized abdominal pain Critical access hospital 2025-01-21 15:39 Nausea with vomiting, unspecifi ed Counts Include [facility] 2025-01-21 15:39 Abdominal distension (gaseous) Counts Include [facility] 2025-01-21 15:39 Disorientation, unspecified [facility] 2025-01-21 15:39 Altered mental status, unspecif ied Counts Include [facility] 2025-01-21 15:39 Weakness Counts Include [facility] 2025-01-21 15:39 Unspecified convulsions Counts Include [facility] 2025-01-21 15:39 Shock, unspecified [facility] 2025-01-21 17:30 Hyperkalemia Counts Include [facility] 2025-01-22 06:46 Hypoglycemia, unspecified On license of [facility] 2025-01-22 06:46 Hyperkalemia Counts Include [facility] 2025-01-22 06:46 Encephalopathy, unspecified [facility] 2025-01-22 06:46 Essential (primary) hypertensio n Counts Include [facility] 2025-01-22 06:46 Crohn's disease, unspecified, w ithout complications Counts Include [facility] 2025-01-22 06:46 Ulcerative colitis, unspecified, without complications Counts Include [facility] 2025-01-22 06:46 Intestinal malabsorption, unspe cified Counts Include [facility] 2025-01-22 06:46 Disorientation, unspecified [facility] 2025-01-22 06:46 Shock, unspecified [facility] 2025-01-23 06:07 Hypoglycemia, unspecified On license of [facility] 2025-01-23 06:07 Hyperkalemia Counts Include [facility] 2025-01-23 06:07 Encephalopathy, unspecified [facility] 2025-01-23 06:07 Essential (primary) hypertensio n Counts Include [facility] 2025-01-23 06:07 Crohn's disease, unspecified, w ithout complications Counts Include [facility] 2025-01-23 06:07 Ulcerative colitis, unspecified, without complications Counts Include [facility] 2025-01-23 06:07 Intestinal malabsorption, unspe cified Counts Include [facility] 2025-01-23 06:07 Disorientation, unspecified [facility] 2025-01-23 06:07 Shock, unspecified [facility] 2025-01-23 10:37 Altered mental status, unspecif ied Counts Include [facility] 2025-01-23 10:43 Spinal stenosis, lum bar region with neurogenic claudication Counts Include [facility] 2025-01-23 10:45 Spinal stenosis, lum bar region with neurogenic claudication Counts Include [facility] 2025-01-23 18:00 Hypoglycemia, unspecified On license of [facility] 2025-01-23 18:00 Hyperkalemia Counts Include [facility] 2025-01-23 18:00 Encephalopathy, unspecified [facility] 2025-01-23 18:00 Essential (primary) hypertensio n Counts Include [facility] 2025-01-23 18:00 Crohn's disease, unspecified, w ithout complications Counts Include [facility] 2025-01-23 18:00 Ulcerative colitis, unspecified, without complications Counts Include [facility] 2025-01-23 18:00 Intestinal malabsorption, unspe cified Counts Include [facility] 2025-01-23 18:00 Disorientation, unspecified [facility] 2025-01-23 18:00 Shock, unspecified [facility] 2025-01-24 11:24 Hypoglycemia, unspecified On license of [facility] 2025-01-24 11:24 Hyperkalemia Counts Include [facility] 2025-01-24 11:24 Encephalopathy, unspecified [facility] 2025-01-24 11:24 Essential (primary) hypertensio n Counts Include [facility] 2025-01-24 11:24 Crohn's disease, unspecified, w ithout complications Counts Include [facility] 2025-01-24 11:24 Ulcerative colitis, unspecified, without complications Counts Include [facility] 2025-01-24 11:24 Intestinal malabsorption, unspe cified Counts Include [facility] 2025-01-24 11:24 Disorientation, unspecified i [facility] 2025-01-24 11:24 Shock, unspecified [facility] 2025-01-24 11:45 Hypoglycemia, unspecified [facility] 2025-01-24 11:45 Hyperkalemia Counts Include [facility] 2025-01-24 11:45 Encephalopathy, unspecified [facility] 2025-01-24 11:45 Essential (primary) hypertensio n Counts Include [facility] 2025-01-24 11:45 Crohn's disease, unspecified, w ithout complications Counts Include [facility] 2025-01-24 11:45 Ulcerative colitis, unspecified, without complications Counts Include [facility] 2025-01-24 11:45 Intestinal malabsorption, unspe cified Counts Include [facility] 2025-01-24 11:45 Disorientation, unspecified [facility] 2025-01-24 11:45 Shock, unspecified [facility] 2025-01-24 12:27 Hypoglycemia, unspecified [facility] 2025-01-24 12:27 Hyperkalemia Counts Include [facility] 2025-01-24 12:27 Encephalopathy, unspecified i [facility] 2025-01-24 12:27 Essential (primary) hypertensio n Counts Include [facility] 2025-01-24 12:27 Crohn's disease, unspecified, w ithout complications Counts Include [facility] 2025-01-24 12:27 Ulcerative colitis, unspecified, without complications Counts Include [facility] 2025-01-24 12:27 Intestinal malabsorption, unspe cified Counts Include [facility] 2025-01-24 12:27 Disorientation, unspecified i [facility] 2025-01-24 12:27 Shock, unspecified [facility] 2025-01-24 13:27 Hypoglycemia, unspecified On license of [facility] 2025-01-24 13:27 Hyperkalemia Counts Include [facility] 2025-01-24 13:27 Encephalopathy, unspecified [facility] 2025-01-24 13:27 Essential (primary) hypertensio n Counts Include [facility] 2025-01-24 13:27 Crohn's disease, unspecified, w ithout complications Counts Include [facility] 2025-01-24 13:27 Ulcerative colitis, unspecified, without complications Counts Include [facility] 2025-01-24 13:27 Intestinal malabsorption, unspe cified Counts Include [facility] 2025-01-24 13:27 Disorientation, unspecified [facility] 2025-01-24 13:27 Shock, unspecified [facility] 2025-01-27 09:39 Periumbilical pain [facility] 2025-01-27 13:13 Sepsis, unspecified organism [facility] 2025-01-27 13:13 Hypoglycemia, unspecified On license of [facility] 2025-01-27 13:13 Hyperkalemia Counts Include [facility] 2025-01-27 13:13 Encephalopathy, unspecified [facility] 2025-01-27 13:13 Essential (primary) hypertensio n Counts Include [facility] 2025-01-27 13:13 Crohn's disease, unspecified, w ithout complications Counts Include [facility] 2025-01-27 13:13 Ulcerative colitis, unspecified, without complications Counts Include [facility] 2025-01-27 13:13 [facility] 13:13 Disorientation, unspecified [facility] 2025-01-27 13:13 Shock, unspecified [facility] 2025-01-28 10:48 Spinal stenosis, lum bar region with neurogenic claudication Counts Include [facility] 2025-01-28 15:11 Cellulitis of right lower limb Counts Include [facility] 2025-02-04 11:22 Cellulitis of unspecified part of limb Counts Include [facility] 2025-02-04 11:33 Cellulitis of unspecified part of limb Counts Include [facility] 2025-02-11 09:15 Hyperkalemia Counts Include [facility] 2025-02-11 09:15 Cellulitis of unspecified part of limb Counts Include [facility] 2025-02-17 07:34 Cellulitis of right lower limb Counts Include [facility] 2025-02-17 21:27 Hyperkalemia Counts Include [facility] 2025-02-17 21:27 Cellulitis of unspecified part of limb Counts Include [facility] 2025-02-18 00:24 Sepsis, unspecified organism [facility] 2025-02-18 00:24 Hypo-osmolality and hyponatremi a Counts Include [facility] 2025-02-18 00:24 Hyperkalemia Counts Include [facility] 2025-02-18 00:24 Essential (primary) hypertensio n Counts Include [facility] 2025-02-18 00:24 Cellulitis of right lower limb Counts Include [facility] 2025-02-18 00:24 Generalized abdominal pain Critical [facility] hospital 2025-02-18 09:06 Hypoglycemia, unspecified On license of [facility] 2025-02-18 09:06 Hypo-osmolality and hyponatremi a Counts Include [facility] 2025-02-18 09:06 Encephalopathy, unspecified [facility] 2025-02-18 09:06 Ulcerative colitis, unspecified, without complications Counts Include [facility] 2025-02-18 09:06 Disorientation, unspecified [facility] 2025-02-18 10:33 Sepsis, unspecified organism [facility] 2025-02-18 10:33 Hypo-osmolality and hyponatremi a Counts Include [facility] 2025-02-18 10:33 Hyperkalemia Counts Include [facility] 2025-02-18 10:33 Essential (primary) hypertensio n Counts Include [facility] 2025-02-18 10:33 Cellulitis of right lower limb Counts Include [facility] 2025-02-18 10:33 Generalized abdominal pain Critical [facility] hospital 2025-02-18 11:09 Sepsis, unspecified organism [facility] 2025-02-18 11:09 Hypo-osmolality and hyponatremi a Counts Include [facility] 2025-02-18 11:09 Hyperkalemia Counts Include [facility] 2025-02-18 11:09 Essential (primary) hypertensio n Counts Include [facility] 2025-02-18 11:09 Cellulitis of right lower limb Counts Include [facility] 2025-02-18 11:09 Generalized abdominal pain Critical [facility] hospital 2025-02-18 11:11 Cellulitis of right lower limb Counts Include [facility] 2025-02-18 21:03 Sepsis, unspecified organism [facility] 2025-02-18 21:03 Hypoglycemia, unspecified On license of [facility] 2025-02-18 21:03 Hypo-osmolality and hyponatremi a Counts Include [facility] 2025-02-18 21:03 Hyperkalemia Counts Include [facility] 2025-02-18 21:03 Essential (primary) hypertensio n Counts Include [facility] 2025-02-18 21:03 Cellulitis of right lower limb Counts Include [facility] 2025-02-18 21:03 Generalized abdominal pain Critical [facility] hospital 2025-02-19 05:46 Sepsis, unspecified organism [facility] 2025-02-19 05:46 Hypoglycemia, unspecified On license of [facility] 2025-02-19 05:46 Hypo-osmolality and hyponatremi a Counts Include [facility] 2025-02-19 05:46 Hyperkalemia Counts Include [facility] 2025-02-19 05:46 Essential (primary) hypertensio [facility] 2025-02-19 05:46 Cellulitis of right lower limb Counts Include [facility] 2025-02-19 05:46 Generalized abdominal pain Critical access hospital 2025-02-19 08:48 Sepsis, unspecified organism [facility] 2025-02-19 08:48 Hypoglycemia, unspecified On license of [facility] 2025-02-19 08:48 Hypo-osmolality and hyponatremi a Counts Include [facility] 2025-02-19 08:48 Hyperkalemia Counts Include [facility] 2025-02-19 08:48 Essential (primary) hypertensio [facility] 2025-02-19 08:48 Cellulitis of right lower limb Counts Include [facility] 2025-02-19 08:48 Generalized abdominal pain Critical access hospital 2025-02-20 05:39 Sepsis, unspecified organism [facility] 2025-02-20 05:39 Hypoglycemia, unspecified On license of [facility] 2025-02-20 05:39 Hypo-osmolality and hyponatremi a Counts Include [facility] 2025-02-20 05:39 Hyperkalemia Counts Include [facility] 2025-02-20 05:39 Essential (primary) hypertensio n Counts Include [facility] 2025-02-20 05:39 Cellulitis of right lower limb Counts Include [facility] 2025-02-20 05:39 Generalized abdominal pain Critical access hospital 2025-02-20 08:36 Sepsis, unspecified organism [facility] 2025-02-20 08:36 Hypoglycemia, unspecified On license of [facility] 2025-02-20 08:36 Hypo-osmolality and hyponatremi a Counts Include [facility] 2025-02-20 08:36 Hyperkalemia Counts Include [facility] 2025-02-20 08:36 [facility]ential (primary[facility]20 08:36 Cellulitis of right lower limb Counts Include [facility] 2025-02-20 08:36 Generalized abdominal pain Critical access [facility] 2025-02-20 09:51 Encounter for palliative care [facility] 2025-02-20 09:52 Hypoglycemia, unspecified On license of [facility] 2025-02-20 09:52 Hypo-osmolality and hyponatremi a Counts Include [facility] 2025-02-20 09:52 Hyperkalemia Counts Include [facility] 2025-02-20 09:52 Depression, unspecified Counts Include [facility] 2025-02-20 09:52 Major depressive disorder, recu rrent, moderate Counts Include [facility] 2025-02-20 09:52 Adjustment insomnia [facility] 2025-02-20 09:52 Essential (primary) hypertensio n Counts Include [facility] 2025-02-20 09:52 Other specified soft tissue dis orders Counts Include 234 [facility] 2025-02-21 10:55 Sepsis, unspecified organism [facility] 2025-02-21 10:55 Thrombocytopenia, unspecified [facility] 2025-02-21 10:55 Type 2 diabetes abimbola itus with hypoglycemia without coma Counts Include [facility] 2025-02-21 10:55 Hypoglycemia, unspecified On license of [facility] 2025-02-21 10:55 Hypo-osmolality and [facility]onatremi a [facility]21 10:55 [facility]kalemia [facility] 2025-02-21 10:55 Alcohol dependence with withdra wal, unspecified [facility]25-02-21 10:55 Alcohol use, unspecified, uncom plicated [facility] 2025-02-21 10:55 Encephalopathy, unspecified [facility] 2025-02-21 10:55 Essential (primary) hypertensio n [facility] 2025-02-21 10:55 Crohn's disease of l arge intestine without complications [facility] 2025-02-21 10:55 Crohn's disease, unspecified, w ithout complications [facility] 2025-02-21 10:55 Crohn's disease, uns pecified, with unspecified complications [facility] 2025-02-21 10:55 Ulcerative colitis, unspecified, without complications [facility] 2025-02-21 10:55 Intestinal malabsorption, unspe cified [facility] 2025-02-21 10:55 Cellulitis of right lower limb [facility] 2025-02-21 10:55 Cellulitis of unspecified part of limb [facility] 2025-02-21 10:55 Acute cystitis without hematuri a [facility]25-02-21 10:55 Urinary tract infection, site n ot specified [facility] 2025-02-21 10:55 Generalized abdominal pain [facility] 2025-02-21 10:55 Nausea with vomiting, unspecifi ed [facility] 2025-02-21 10:55 Abdominal distension (gaseous) [facility]25-02-21 10:55 Disorientation, unspecified [facility] 2025-02-21 10:55 Altered mental status, unspecif ied [facility]25-02-21 10:55 Weakness [facility] 2025-02-21 10:55 Unspecified convulsions [facility] 2025-02-21 10:55 Shock, unspecified [facility] 2025-02-21 10:56 [facility]ocytopenia, [facility]25-[facility]-21 10:56 Hypoglycemia, unspecified On license of [facility] 2025-02-21 10:56 Alcohol use, unspecified, uncom plicated Counts Include 234 [facility] 2025-02-21 10:56 Encephalopathy, unspecified [facility] 2025-02-21 10:56 Essential (primary) hypertensio n Counts Include 234 [facility] 2025-02-21 10:56 Crohn's disease, uns pecified, with unspecified complications Counts Include 234 [facility] 2025-02-21 10:56 Ulcerative colitis, unspecified, without complications Counts Include 234 [facility] 2025-02-21 10:56 Acute cystitis without hematuri a Counts Include 234 [facility] 2025-02-21 10:56 Weakness Counts Include 234 [facility] 2025-02-21 14:32 Sepsis, unspecified organism [facility] 2025-02-21 14:32 Hypoglycemia, unspecified On license of [facility] 2025-02-21 14:32 Hypo-osmolality and hyponatremi a Counts Include 234 [facility] 2025-02-21 14:32 Hyperkalemia Counts Include 234 [facility] 2025-02-21 14:32 Essential (primary) hypertensio n Counts Include 234 [facility] 2025-02-21 14:32 Cellulitis of right lower limb Counts Include 234 [facility] 2025-02-21 14:32 Generalized abdominal pain [facility] 2025-02-21 14:35 Sepsis, unspecified organism [facility] 2025-02-21 14:35 Hypoglycemia, unspecified On license of [facility] 2025-02-21 14:35 Hypo-osmolality and hyponatremi a Counts Include 234 [facility] 2025-02-21 14:35 Hyperkalemia Counts Include 234 [facility] 2025-02-21 14:35 Essential (primary) hypertensio n Counts Include 234 [facility] 2025-02-21 14:35 Cellulitis of right lower limb Counts Include 234 [facility] 2025-02-21 14:35 Generalized abdominal pain [facility] 2025-02-21 15:28 Sepsis, unspecified organism [facility] 2025-02-21 15:28 Hypoglycemia, unspecified On license of [facility] 2025-02-21 15:28 Hypo-osmolality and hyponatremi a Counts Include 234 [facility] 2025-02-21 15:28 Hyperkalemia Counts Include 234 [facility] 2025-02-21 15:28 Essential (primary) hypertensio n Counts Include 234 [facility] 2025-02-21 15:28 Cellulitis of right lower limb Counts Include 234 [facility] 2025-02-21 15:28 Generalized abdominal pain [facility] 2025-02-21 16:21 Sepsis, unspecified organism [facility] 2025-02-21 16:21 Hypoglycemia, unspecified On license of [facility] 2025-02-21 16:21 Hypo-osmolality and hyponatremi a Counts Include 234 [facility] 2025-02-21 16:21 Hyperkalemia Counts Include 234 [facility] 2025-02-21 16:21 Essential (primary) hypertensio n Counts Include 234 [facility] 2025-02-21 16:21 Cellulitis of right lower limb Counts Include 234 [facility] 2025-02-21 16:21 Generalized abdominal pain [facility] 2025-02-21 19:08 Sepsis, unspecified organism [facility] 2025-02-21 19:08 Hypoglycemia, unspecified On license of [facility] 2025-02-21 19:08 Hypo-osmolality and hyponatremi [facility] 2025-02-21 19:08 Hyperkalemia Counts Include 234 [facility] 2025-02-21 19:08 Essential (primary) hypertensio n Counts Include 234 [facility] 2025-02-21 19:08 Cellulitis of right lower limb Counts Include 234 [facility] 2025-02-21 19:08 Generalized abdominal pain [facility] 2025-02-25 09:48 Spinal stenosis, lum bar region with neurogenic claudication Counts Include 234 [facility] 2025-02-25 10:48 Right lower quadrant pain On license of [facility] 2025-02-25 11:37 Sepsis, unspecified organism [facility] 2025-02-25 11:37 Hypoglycemia, unspecified On license of [facility] 2025-02-25 11:37 Hypo-osmolality and hyponatremi a Counts Include 234 [facility] 2025-02-25 11:37 Hyperkalemia Counts Include 234 [facility] 2025-02-25 11:37 Essential (primary) hypertensio n Counts Include 234 [facility] 2025-02-25 11:37 Cellulitis of right lower limb Counts Include 234 [facility] 2025-02-25 11:37 Other specified soft tissue dis orders [facility]25-[facility]-25 11:37 Lower abdominal pain, unspecifi ed [facility] 2025-02-25 11:37 Generalized abdominal pain [facility] 2025-02-25 11:37 Nausea [facility] 2025-02-27 16:59 Spinal stenosis, lum bar region with neurogenic claudication [facility] Results/Labs test date facility value unit notes Result panel 1 GLUCOSE, WHOLE BLOOD 2024-12-26 10:08 [facility] 76 (missing) (missing) Result panel 2 NUCLEATED RED BLOOD CELLS AUTO 2024-12-26 10:25 [facility] 0.0 /100wbc (missing) NRBC ABSOLUTE COUNT (AUTO) 2024-12-26 10:25 [facility] 0.00 x10 3/ul (missing) BASOPHILS # (AUTO) 2024-12-26 10:25 [facility] 0.1 10 3/ul (missing) EOSINOPHILS # (AUTO) 2024-12-26 10:25 [facility] 0.1 10 3/ul (missing) MONOCYTES # (AUTO) 2024-12-26 10:25 [facility] 0.2 10 3/ul (missing) BILIRUBIN,TOTAL 2024-12-26 10:25 [facility] 0.3 mg /dl As of April 2023 testing method has changed, this may include reference ranges. LYMPHOCYTES # (AUTO) 2024-12-26 10:25 [facility] 0.4 10 3/ul (missing) CREATININE 2024-12-26 10:25 [facility] 0.5 mg/dl As of April 2023 testing method has changed, this may include reference ranges. ALBUMIN/GLOBULIN RATIO 2024-12-26 10:25 [facility] 1.2 (missing) (missing) MAGNESIUM 2024-12-26 10:25 [facility] 1.3 mg/dl As of April 2023 testing method has changed, this may include reference ranges. CHLORIDE 2024-12-26 10:25 [facility] 111 mmol/l As of April 2023 testing method has changed, this may include reference ranges. GFR - MDRD 2024-12-26 10:25 Counts Include [facility] 124 (missin g) Social History date description facility
[2025-03-02 03:18] LABS: BASOPHILS % (AUTO) 1.1 %; EOSINOPHILS # (AUTO) 0.1 10^3/uL (0.0-0.7); EOSINOPHILS % (AUTO) 5.7 %; HCT - HEMATOCRIT 26.5 % (37.0-47.0); HGB - HEMOGLOBIN 8.4 g/dL (12.0-16.0); LYMPHOCYTES # (AUTO) 0.5 10^3/uL (1.5-3.5); MEAN CORPUSCULAR HGB CONC 31.7 g/dL (32.0-36.0); MEAN CORPUSCULAR VOLUME 97.8 fL (81.0-99.0); MEAN PLATELET VOLUME 9.8 fL (7.9-10.8); MONOCYTES # (AUTO) 0.2 10^3/uL (0.0-1.0); MONOCYTES % (AUTO) 12.1 %; NEUTROPHILS # (AUTO) 0.9 10^3/uL (1.5-6.6); NEUTROPHILS % (AUTO) 50.1 %; PLT - PLATELET COUNT 157 10^3/uL (130-450); RED BLOOD COUNT 2.71 10^6/uL (4.20-5.40); RED CELL DISTRIBUTION WIDTH 21.7 % (12.0-15.0)
[2025-03-02 03:28] LABS: SLIDE REVIEW? Indicated
[2025-03-02 03:29] LABS: WHITE BLOOD COUNT 1.7 x10^3/uL (4.8-10.8)
[2025-03-02 03:31] LABS: MAGNESIUM 1.4 mg/dL (1.7-2.3)
[2025-03-02 03:37] LABS: ALBUMIN 3.6 g/dL (3.2-5.5); ALBUMIN/GLOBULIN RATIO 1.2 (1.0-2.2); ALKALINE PHOSPHATASE 110 IU/L (42-121); ALT ALANINE AMINOTRANSFERASE 40 IU/L (10-60); AST ASPARTATE AMINOTRANSFERASE 28 IU/L (10-42); BILIRUBIN,TOTAL 0.2 mg/dL (0.2-1.0); BUN - BLOOD UREA NITROGEN 34 mg/dL (6-20); CALCIUM 9.7 mg/dL (8.5-10.3); CARBON DIOXIDE - CO2 23 mmol/L (21-32); CHLORIDE 112 mmol/L (101-111); CREATININE 0.6 mg/dL (0.6-1.3); ETOH - ETHANOL < 10.0 mg/dL; GFR - MDRD 100 (>89); GLUCOSE 99 mg/dL (74-104); POTASSIUM 5.7 mmol/L (3.5-4.5); SODIUM 138 mmol/L (135-145); TOTAL PROTEIN 6.6 g/dL (6.4-8.9)
[2025-03-02 04:05] LABS: DIFFERENTIAL COMMENT MANUAL=AUTO DIFF; PLATELET ESTIMATE, MANUAL NORMAL (130-450,000) (NORMAL); PLATELET MORPHOLOGY NORMAL APP (NORMAL); WBC MORPHOLOGY (MULTIPLE) NORMAL APPEARANCE (NORMAL)
[2025-03-02 04:18] LABS: THYROID STIMULATING HORMONE 6.39 uIU/mL (0.34-5.60)
--- NOTE | 2025-03-02 07:23 | ED Physician Documentation ---
History of Present Illness Stated complaint Stated Complaint: HIGH BPM Chief complaint Chief Complaint: General Additonal information Additional information: 65-year-old female with known history of Crohn's disease, hemicolectomy with ostomy, chronic hyperkalemia, thrombocytopenia, recent treatment for cellulitis of the right lower extremity presents to the emergency department with chief complaint elevated blood pressure and slow heart rate. Reports compliance with all of her medications. Does report she takes [place] that allow for management of blood pressure. Noted that her blood pressure was elevated and that her heart rate was in the low 40s. Denies any associated chest pain, shortness of breath, cough, fever. Does report that she has had mild persistent fatigue and some discomfort with urination. [place] Coma Scale Assess Eye opening: Spontaneous Verbal response: Oriented Motor response: Obeys Commands Total score: 15 Review of Systems Status of ROS: 10 or more systems reviewed and unremarkable except as noted in history and below Meds/Allgy Home Medications Ambulatory Orders Medication Instructions Recorded Confirmed amlodipine 5 mg tablet 5 mg PO DAILY 06/24/2403/03 sodium zirconium cyclosilicate 10 10 g PO DAILY #30 ea 10/27/24 03/03/25 gram oral powder packet (Lokelma) cholecalciferol (vitamin D3) 25 25 mcg PO DAILY 03/03/25 mcg (1,000 unit) capsule (Vitamin D3) levothyroxine 25 mcg tablet 25 mcg PO DAILY 01/08/25 0 03/03/25 thiamine mononitrate (vit B1) 100 100 mg PO DAILY 12/2803/03/25 mg tablet blood-glucose sensor (FreeStyle 02/18/25 02/18/25 Beba 2 Plus Sensor device) sodium chloride 1,000 mg soluble 1,000 mg PO BID 02/1803/03/25 tablet blood-glucose sensor (FreeStyle #1 ea 02/24/25 Beba 3 Sensor device) blood-glucose,first officer,cont #1 ea 02/24/25 (FreeStyle Beba 3 [place]) magnesium oxide 400 mg PO BID 03/03/2503/03 Allergies Allergies Allergy/AdvReac Type Severity Reaction Status Date / Time Penicillins Allergy Anaphylaxis Verified 03/02/25 01:31 vancomycin Allergy Rash Verified 03/02/25 01:31 methocarbamol AdvReac Dizziness Verified 03/02/25 01:31 PFSH Active Problems All Active Problems (Updated 03/04/25 @ 00:01 by ) Insomnia (Chronic) Swelling of right lower extremity (Acute) Cellulitis of right leg (Acute) Hypothermia (Acute) Malabsorption (Acute) Weakness (Acute) Medical History Medical History Hyperkalemia Leukopenia Hypothermia Hypoglycemia Thrombocytopenia Depression Chronic hyperkalemia History of seizure Crohn disease Parastomal hernia Colostomy in place Alcohol dependence in remission UTI (urinary tract infection) Alcohol use Surgical History Surgical History History of colostomy Family History Family History (Updated 02/18/25 @ 05:39 by YOKASTA Ames, MSN) Mother Dementia Sister Cancer Social History Social History (Updated 02/18/25 @ 05:40 by YOKASTA Ames, MSN) Smoking Status: Unknown if ever smoked Second hand tobacco smoke exposure: No Do you dip or chew tobacco?: No Do you vape?: No Patient requests smoking cessation consult: No Initiate information on smoking cessation: No Living arrangement: At home Living Condition: With spouse/s.o. Relationship: Spouse Level: Assisted Home Mobility Equipment: Walker Do you feel safe in your home environment?: Yes Suffered physical, verbal, emotional, or financial abuse?: No History of Abuse: No ETOH Use: Other Frequency: Occasional Substance Use: denies use Substance Use Details: Pt. used to be alcoholic but quit drinking 2 yrs. 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 POLST Patient has POLST: No POLST Status: Full Code Exam Exam Vital Signs: Vital Signs x48h Temp Pulse Resp BP Pulse Ox 03/02/25 07:00 42 L 18 157/94 H 100 03/02/25 05:54 48 L 16 154/94 H 100 03/02/25 04:15 46 L 18 154/94 H 99 03/02/25 01:20 31.3 C L 46 L 16 165/79 H 98 Constitutional Ill-appearing HENMT normocephalic, head/scalp atraumatic, hearing grossly normal bilaterally, external ears normal, EACs normal and nasal mucous membranes normal Eyes PERRL, EOMs intact bilaterally, conjunctivae normal, no scleral icterus and no papilledema Neck/C-Spine visual inspection normal, trachea midline and cervical spine nontender Lymph no lymphadenopathy noted Chest inspection of chest normal, palpation of chest normal and inspection of breasts normal Respiratory breath sounds equal bilaterally, normal respiratory effort, clear to auscultation bilaterally, no wheezes and no rales Cardiovascular normal heart rate noted, regular rhythm noted, no gallop, no rub and no murmur Gastrointestinal abdomen normal to inspection, abdomen soft to palpation, nontender to palpation, nontender to percussion and no hepatosplenomegaly Genitourinary no CVA tenderness and bladder normal to palpation Back/Pelvis spine normal to inspection, no thoracic spine tenderness and no lumbar spine tenderness Extremities normal to inspection, normal to palpation and no tenderness Neurology tire inspector II-XII intact, no movement abnormality noted, no focal motor deficit noted and no sensory deficits noted Skin skin color normal Results Vitals Vitals: Oxygen O2 Source Room air Labs Labs: Microbiology 03/02/25 04:25 Blood Culture - Preliminary Blood - Right Hand NO GROWTH AFTER 2 DAYS Laboratory Tests 03/02/25 03/02/25 03/02/25 03:14 03:14 03:14 WBC 1.7 L* RBC 2.71 L Hgb 8.4 L Hct 26.5 L MCV 97.8 MCH 31.0 MCHC 31.7 L RDW 21.7 H Plt Count 157 MPV 9.8 Neut # (Auto) 0.9 L Lymph # (Auto) 0.5 L [place] # (Auto) 0.2 Eos # (Auto) 0.1 Baso # (Auto) 0.0 Absolute Nucleated RBC 0.00 Total Counted BACK GRAY CLOTH WASHER Band Neuts % (Manual) Not Reportable Abnorm Lymph % (Manual) Not Reportable Nucleated RBC % 0.0 Neutrophils # (Manual) Not Reportable Lymphocytes # (Manual) Not Reportable Monocytes # (Manual) Not Reportable Eosinophils # (Manual) Not Reportable Basophils # (Manual) Not Reportable Differential Comment MANUAL=AUTO DIFF Manual Slide Review Indicated WBC Morphology NORMAL APPEARANCE Platelet Estimate NORMAL (130-450,000) Platelet Morphology NORMAL PATRICE RBC Morph Micro Appear 2+ ANISOCYTOSIS 1+ SPHEROCYTES 1+ TEARDROP CELLS Sodium Potassium Chloride Carbon Dioxide Anion Gap BUN Creatinine Estimated GFR (MDRD) Glucose POC Whole Bld Glucose Lactic Acid Calcium Magnesium Total Bilirubin AST ALT Alkaline Phosphatase Total Protein Albumin Globulin Albumin/Globulin Ratio TSH Free T4 Direct Urine Color Urine Clarity Urine pH Ur Specific [place] Urine Protein Urine Glucose (UA) Urine Ketones Urine Occult Blood Urine Nitrite Urine Bilirubin Urine Urobilinogen Ur Leukocyte Esterase Urine RBC Urine WBC Ur Squamous Epith Cells Urine Bacteria Ur Microscopic Review Urine Culture Comments Nasal Adenovirus (PCR) Nasal B. parapertussis DNA (PCR) Nasal Coronavir 229E PCR Nasal Coronavir HKU1 PCR Nasal Coronavir NL63 PCR Nasal Coronavir OC43 PCR Nasal Enterovir/Rhinovir PCR Nasal Influenza B PCR Nasal Influenza A PCR Nasal Parainfluen 1 PCR Nasal Parainfluen 2 PCR Nasal Parainfluen 3 PCR Nasal Parainfluen 4 PCR Nasal RSV (PCR) Nasal B.pertussis DNA PCR Nasal C.pneumoniae (PCR) Daniel Human Metapneumo PCR Nasal M.pneumoniae (PCR) Nasal SARS-CoV-2 (PCR) Urine Opiates Screen Ur Buprenorphine Scrn Ur Oxycodone Screen Urine Methadone Screen Ur Barbiturates Screen Ur Tricyclics Screen Ur Phencyclidine Scrn Ur Amphetamine Screen U Methamphetamines Scrn U Benzodiazepines Scrn Urine Cocaine Screen U Cannabinoids Screen Ur Drug Screen Comment Ethyl Alcohol 03/02/25 03/02/25 03/02/25 03:14 06:30 07:25 WBC RBC Hgb Hct MCV MCH MCHC RDW Plt Count MPV Neut # (Auto) Lymph # (Auto) [place] # (Auto) Eos # (Auto) Baso # (Auto) Absolute Nucleated RBC Total Counted Band Neuts % (Manual) Abnorm Lymph % (Manual) Nucleated RBC % Neutrophils # (Manual) Lymphocytes # (Manual) Monocytes # (Manual) Eosinophils # (Manual) Basophils # (Manual) Differential Comment Manual Slide Review WBC Morphology Platelet Estimate Platelet Morphology RBC Morph Micro Appear 1+ OVALOCYTES Sodium 138 Potassium 5.7 H Chloride 112 H Carbon Dioxide 23 Anion Gap 3.0 L BUN 34 H Creatinine 0.6 Estimated GFR (MDRD) 100 Glucose 99 POC Whole Bld Glucose Lactic Acid 1.0 Calcium 9.7 Magnesium 1.4 L Total Bilirubin 0.2 AST 28 ALT 40 Alkaline Phosphatase 110 Total Protein 6.6 Albumin 3.6 Globulin 3.0 Albumin/Globulin Ratio 1.2 TSH 6.39 H Free T4 Direct 0.75 Urine Color Urine Clarity Urine pH Ur Specific [place] Urine Protein Urine Glucose (UA) Urine Ketones Urine Occult Blood Urine Nitrite Urine Bilirubin Urine Urobilinogen Ur Leukocyte Esterase Urine RBC Urine WBC Ur Squamous Epith Cells Urine Bacteria Ur Microscopic Review Urine Culture Comments Nasal Adenovirus (PCR) NOT DETECTED Nasal B. parapertussis DNA (PCR) NOT DETECTED Nasal Coronavir 229E PCR NOT DETECTED Nasal Coronavir HKU1 PCR NOT DETECTED Nasal Coronavir NL63 PCR NOT DETECTED Nasal Coronavir OC43 PCR NOT DETECTED Nasal Enterovir/Rhinovir PCR NOT DETECTED Nasal Influenza B PCR NOT DETECTED Nasal Influenza A PCR NOT DETECTED Nasal Parainfluen 1 PCR NOT DETECTED Nasal Parainfluen 2 PCR NOT DETECTED Nasal Parainfluen 3 PCR NOT DETECTED Nasal Parainfluen 4 PCR NOT DETECTED Nasal RSV (PCR) NOT DETECTED Nasal B.pertussis DNA PCR NOT DETECTED Nasal C.pneumoniae (PCR) NOT DETECTED Daniel Human Metapneumo PCR NOT DETECTED Nasal M.pneumoniae (PCR) NOT DETECTED Nasal SARS-CoV-2 (PCR) NOT DETECTED Urine Opiates Screen Ur Buprenorphine Scrn Ur Oxycodone Screen Urine Methadone Screen Ur Barbiturates Screen Ur Tricyclics Screen Ur Phencyclidine Scrn Ur Amphetamine Screen U Methamphetamines Scrn U Benzodiazepines Scrn Urine Cocaine Screen U Cannabinoids Screen Ur Drug Screen Comment Ethyl Alcohol < 10.0 03/02/25 03/02/25 07:47 08:20 WBC RBC Hgb Hct MCV MCH MCHC RDW Plt Count MPV Neut # (Auto) Lymph # (Auto) [place] # (Auto) Eos # (Auto) Baso # (Auto) Absolute Nucleated RBC Total Counted Band Neuts % (Manual) Abnorm Lymph % (Manual) Nucleated RBC % Neutrophils # (Manual) Lymphocytes # (Manual) Monocytes # (Manual) Eosinophils # (Manual) Basophils # (Manual) Differential Comment Manual Slide Review WBC Morphology Platelet Estimate Platelet Morphology RBC Morph Micro Appear Sodium Potassium Chloride Carbon Dioxide Anion Gap BUN Creatinine Estimated GFR (MDRD) Glucose POC Whole Bld Glucose 59 Lactic Acid Calcium Magnesium Total Bilirubin AST ALT Alkaline Phosphatase Total Protein Albumin Globulin Albumin/Globulin Ratio TSH Free T4 Direct Urine Color YELLOW Urine Clarity CLEAR Urine pH 6.0 Ur Specific [place] 1.015 Urine Protein NEGATIVE Urine Glucose (UA) NEGATIVE Urine Ketones NEGATIVE Urine Occult Blood SMALL H Urine Nitrite NEGATIVE Urine Bilirubin NEGATIVE Urine Urobilinogen 0.2 (NORMAL) Ur Leukocyte Esterase NEGATIVE Urine RBC 6-10 H Urine WBC 0-3 Ur Squamous Epith Cells FEW Squamous Urine Bacteria Rare Ur Microscopic Review INDICATED Urine Culture Comments NOT INDICATED Nasal Adenovirus (PCR) Nasal B. parapertussis DNA (PCR) Nasal Coronavir 229E PCR Nasal Coronavir HKU1 PCR Nasal Coronavir NL63 PCR Nasal Coronavir OC43 PCR Nasal Enterovir/Rhinovir PCR Nasal Influenza B PCR Nasal Influenza A PCR Nasal Parainfluen 1 PCR Nasal Parainfluen 2 PCR Nasal Parainfluen 3 PCR Nasal Parainfluen 4 PCR Nasal RSV (PCR) Nasal B.pertussis DNA PCR Nasal C.pneumoniae (PCR) Daniel Human Metapneumo PCR Nasal M.pneumoniae (PCR) Nasal SARS-CoV-2 (PCR) Urine Opiates Screen NEGATIVE Ur Buprenorphine Scrn NEGATIVE Ur Oxycodone Screen NEGATIVE Urine Methadone Screen NEGATIVE Ur Barbiturates Screen NEGATIVE Ur Tricyclics Screen NEGATIVE Ur Phencyclidine Scrn NEGATIVE Ur Amphetamine Screen NEGATIVE U Methamphetamines Scrn NEGATIVE U Benzodiazepines Scrn NEGATIVE Urine Cocaine Screen NEGATIVE U Cannabinoids Screen NEGATIVE Ur Drug Screen Comment CUTOFF CONC BELOW: Ethyl Alcohol Procedures Central Line - Major Central Line Preparation: Consent Obtained, Time out completed, Ultrasound used and Sterile prep and drape Central line location: Right Femoral Central line type: Triple lumen Central line aftercare: Chlorhexidine disc placed, Secured and No complications PD Medical Decision Making ED course Complexity details: reviewed old records, reviewed results, re-evaluated patient, considered differential, d/w patient and d/w family ED course: 65 with IBD on Humaria presents with slow HR. Bradycardic and hypothermic on arrival althoug patient dose no complain of any other symptoms. Leukopenia and mild neurotopenia as well as mild hyperkalemia on lab work. Pt chronicly edemitous in all extermities. central line placed by my self for vascular access. Urine and imaging sudies pending. signing out to oncoming physician. see their documentation for detail. Discharge Plan Discharge Patient Disposition: 66 [facility] DC/Xfer Condition: Fair Clinical Impression: Hypothermia, Leukopenia Interventions: ED Admission Assessment Last Done: 03/02/25 09:33
[2025-03-02] MEDS: LORazepam 2 MG/ML VIAL IVP STA (07:32)
[2025-03-02 08:25] LABS: B. PARAPERTUSSIS- RESP PCR PAN NOT DETECTED; B. PERTUSSIS- RESP PCR PANEL NOT DETECTED; C. PNEUMONIAE- RESP PCR PANEL NOT DETECTED; CORONAVIRUS 229E-RESP PCR NOT DETECTED; CORONAVIRUS HKU1-RESP PCR NOT DETECTED; CORONAVIRUS NL63-RESP PCR NOT DETECTED; CORONAVIRUS OC43-RESP PCR NOT DETECTED; HUMAN METAPNEUMOVIRUS NOT DETECTED; INFLUENZA A- RESP PCR PANEL NOT DETECTED; INFLUENZA B - RESP PCR PANEL NOT DETECTED; M. PNEUMONIAE- RESP PCR PANEL NOT DETECTED; PARAINFLUENZA VIRUS 1 NOT DETECTED; PARAINFLUENZA VIRUS 2 NOT DETECTED; PARAINFLUENZA VIRUS 4 NOT DETECTED; RHINOVIRUS/ENTEROVIRUS NOT DETECTED; RSV- RESP PCR PANEL NOT DETECTED; SARS-CoV-2 -RESP PCR PANEL NOT DETECTED
[2025-03-02] MEDS: levoFLOXacin 750 MG/150 ML 750 MG/150 ML BAG IV STA (08:25)
[2025-03-02 08:28] LABS: BILIRUBIN,URINE NEGATIVE (NEGATIVE); GLUCOSE, URINE (UA) NEGATIVE (NEGATIVE); KETONES,URINE (UA) NEGATIVE (NEGATIVE); LEUKOCYTE ESTERASE, URINE NEGATIVE (NEGATIVE); NITRITE,URINE NEGATIVE (NEGATIVE); OCCULT BLOOD,URINE SMALL (NEGATIVE); PROTEIN,URINE NEGATIVE (NEGATIVE); UROBILINOGEN,URINE 0.2 (NORMAL) E.U./dL (NORMAL)
[2025-03-02 08:30] LABS: CLARITY,URINE CLEAR (CLEAR)
--- NOTE | 2025-03-02 08:38 | ED Physician Documentation ---
ED Addendum Addendum Addendum: I received signout on this patient from overnight Dr. Dr. Hernandez. She has a history of Crohn's with ostomy and not on immunotherapy presenting initially for bradycardia. Found to be leukopenic and hypothermic. We have concerns for infection of unknown source. The patient reportedly has gone up on her carvedilol dose due to hypertension. She initially presented to the emergency department due to bradycardia and continues to be bradycardic in the 40s. We were unable to obtain a rectal temperature due to her not having a rectum, and she was amenable to a Ocasio catheter placement with temp probe. Initial temperature 29C. Patient placed on active rewarming with italo hugger. She was given levofloxacin for empiric sepsis coverage. Blood cultures already been drawn. Urinalysis without evidence of infection. Chest radiograph interpreted me as no acute cardiopulmonary disease. She is denying any other specific pain to necessitate further imaging for infection. Patient will be admitted for hypothermia and leukopenia for observation. Discharge Plan Discharge Patient Disposition: [facility] DC/Xfer Clinical Impression: Hypothermia, Leukopenia Prescriptions: No Action (DME) FreeStyle Beba 3 [place] Misc See Rx Instructions .Route Qty: 1 0RF Rx Instructions: Use as directed to monitor for low blood sugar (DME) FreeStyle Beba 3 Sensor Device See Rx Instructions .Route Qty: 1 11RF Rx Instructions: Use as directed to monitor for low blood sugar amlodipine 5 MG tablet 5 mg PO DAILY Patient Comments: take 1 tablet by mouth once daily Lokelma 10 gram powder in packet 10 g PO DAILY Qty: 30 2RF thiamine mononitrate (vit B1) 100 mg tablet 100 mg PO DAILY cholecalciferol (vitamin D3) [Vitamin D3] 25 mcg (1,000 unit) capsule 25 mcg PO DAILY levothyroxine 25 mcg tablet 25 mcg PO DAILY sodium chloride 1,000 mg tablet,soluble Patient Comments: take 2 tablets by mouth twice a day Saccharomyces boulardii 250 mg Capsule 250 mg PO BIDWM Qty: 14 0RF Lokelma 5 gram Powder In Packet 10 g PO BID Qty: 30 0RF (DME) FreeStyle Beba 2 Plus Sensor Device See Rx Instructions .ROUTE Rx Instructions: As directed mirtazapine 7.5 mg tablet 3.75 mg PO .QHS Qty: 45 2RF Rx Instructions: Take 1/2 tablet PO at bedtime Print Language: [place] Leonean
[2025-03-02 08:39] LABS: AMPHETAMINE SCREEN,URINE NEGATIVE (NEGATIVE); BARBITURATE SCREEN,UR NEGATIVE (NEGATIVE); BENZODIAZEPINES SCREEN, URINE NEGATIVE (NEGATIVE); BUPRENORPHINE SCREEN, URINE NEGATIVE (NEGATIVE); COCAINE SCREEN URINE NEGATIVE (NEGATIVE); METHADONE SCREEN, URINE NEGATIVE (NEGATIVE); METHAMPHETAMINES SCREEN, URINE NEGATIVE (NEGATIVE); OPIATE SCREEN, URINE NEGATIVE (NEGATIVE); OXYCODONE SCREEN, URINE NEGATIVE (NEGATIVE); THC CANNABINOID SCREEN, URINE NEGATIVE (NEGATIVE); TRICYCLIC ANTIDEPRESSANT,URINE NEGATIVE (NEGATIVE)
--- NOTE | 2025-03-02 08:43 | HISTORY & PHYSICAL EXAMINATION ---
Chief Complaint Chief Complaint Chief Complaint: low heart rate History of Present Illness Admitted From Admitted From:: home History Obtained From Records Reviewed: [facility] [place] History obtained from: patient and ER provider Exam Limitations: none History of Present Illness HPI Comment/Other: 65-year-old female who takes carvedilol for blood pressure. But I am not seeing it on her med list. Her shared this infor with the ER MD. She was brought in by her because her heart rate has been too low for the last day and her blood pressure has been "high" in the 150-170s systolic. No chest pain, palpitations, shortness of breath. She is fatigued. In the ER they found her to have bradycardia to the 40s. Mild hypertension at 157/83. But she was hypothermic to 29 degrees. They initially could not get temperature orally and they ended up doing a rectal probe. They queried her with regards to sepsis or infection and her review of systems was negative. She is hyperkalemic at 5.7. She has been hyperkalemic in the past and no diagnoses been attributed to that. Anion gap is low, BUN is 34, lactic acid 1. Magnesium low at 1.4. TSH slightly high at 6.39. Glucose is low at 99. When she was admitted February 21 she was as low as 54. When I review her records she was 62 in December 2024. In October she was 63. 67 in September 2024. 64 in July 2023.She is neutropenic with a white cell count of 1.7. She has been intermittently neutropenic since 2022. This alternates with a high white cell count with a high of 17,000. She does have normal white cell counts in between. Her neutropenia is usually 2.7-3.7. Her last severely low white cell count was in July 2023 when she was 1.9. Sources of infection including chest x-ray and urinalysis were investigated for this encounter in the ER. Urine has a small occult blood, 6-10 red cells, but negative leukocyte esterase, negative nitrites. Chest x-ray interpreted by radiology as a preliminary report has no acute cardiopulmonary findings. The ER provider has started empiric treatment with Levaquin after obtaining the urinalysis, and blood cultures. He has contacted me and asked if we could please place her in observation. He is concerned that she has sepsis with hypothermia. Unknown cause. And will need to do an observation for the bradycardia in the 40s. I believe that is a prudent plan. And I will be ordering observation status. Once she was transferred to [facility], I examined the patient. She is asleep and easily awakens. She is underneath a bear hugger that I have ordered to warm her up. She initially did not know she was in the hospital and was startled. At the end of my exam I asked her where she was and she remembered that she was in the hospital. I had explained to her why she was here but she could not remember that. Speech is normal, sentence structure intact. Sleepy. She feels like she was stable at home without new issues. She walks with a walker. Sometimes she goes takes a walk outside. Not daily but several times a week. That was unchanged. She denied fever, chills. Her ears, throat, abdomen, chest do not hurt. She has no postnasal drip. No sore throat. She says she has been taking her medications. She remembers Monday and Monday. But somewhere Monday afternoon into the evening everything is "hazy". She does not really remember getting here, and she is waking up right now startled that she is in the hospital. She states that she is eating normally in spite of her hx of Crohn's, colectomy and taking Humira.She denies diarrhea or change in pattern of her BM these last few days. No cough, no sob. No weight changes. Her weight was as low as 36 kg January 08. January 20 she was 45 kg. At discharge February 21 she was 43.5 kg. Today she is 42.5 kg. Has a history of chronic intermittent altered mental status. In the past has been attributed to low sodium. She presented as altered mental status and weakness in September 2024 to our hospital. She was confused at home. She was leukopenic. Platelets 99. Over the next 5 days she was lethargic. Answering in one-word syllables. She had an episode of hypoglycemia to 67. Her energy state interactions waxed and waned. This would alternate with the person who would be walking in the hallways with PT and OT. PT recommended SNF discharge. There is no note as to why she ended up going home with home health. She has been admitted at [facility] in October 2024 for altered mental status. Sodium was 125. They reached out to nephrology at [facility] and [facility] nephrology felt that this was not the cause of her altered mental status. CT of the brain was negative then. Ultrasound of the abdomen showed hepatic steatosis without ascites. Ammonia level was normal. TSH was 7.5. She has a history of alcohol abuse with her last alcohol use in 2022. Confusion and delusional thought process started happening in 2023. She then was witnessed as having a tonic-clonic seizure that did not respond to IV Ativan and she had to be intubated. On the monitor she had a heart rate of 55. No peripheral pulses were palpated and they realized that the patient was in PEA arrest and CPR initiated. After 10 minutes of CPR, epinephrine and bicarb the patient had ROSC. Complication was left lower lobe aspiration. In the end they felt it was a primary neurologic event with anoxic encephalopathy due to cardiac arrest. She was transferred to [facility]. then discharged. She was not discharged home on any antiseizure medication. November 27 she returned again confusion. She was found to be hyponatremic, given normal saline and sent home. Her confusion worsens her brought her back. She was again hyponatremic to 128. UA clear. She was kept overnight and treated with normal saline and sent home. January 08 again with increased confusion. was helping her get into the bath but he was so confused that he had to pick her up and get her back out of the tub and brought her to the ER. CT negative. Sodium 131. Glucose 69. She was given glucose and had some improvement. She was discharged the next day. January 20 was seen by her PCP in [place]. And was told to come to the emergency room because of altered mental status. For several days she had decreased ostomy output and abdominal swelling. Episodes of nausea and vomiting. With this admission, she had episodes of bradycardia with a heart rate into the low 30s with a rhythm of atrial fibrillation. In the ER she had a heart rate briefly into the high 40s but still bradycardic and hypotensive. Central line was placed in the emergency room and she was started on Levophed. CT of the abdomen negative. CT of the head negative. She was discharged January 24. Antibiotics had initially been started for possible infection but they were discontinued and she was treated for dehydration and electrolyte derangement. She was weaned off the Levophed. She returned February 17. She presented by ambulance with complaints of right leg swelling of 1 week duration. She had been seen in the outpatient clinic 4 days prior and was negative for DVT but started on oral antibiotics for that leg pain. In the ER she was hypothermic and lethargic. Elevated lactic acid and low white cell count. She was admitted for further management of cellulitis and possible sepsis. The infection resolved with antibiotics. Hyperkalemia resolved on Lokelma. And she was discharged on Lokelma and Florastor. Carvedilol was discontinued. Her primary care provider is YOKASTA Laboy at [facility]. She is a full code. Meds/Allgy Home Medications Ambulatory Orders Medication Instructions Recorded Confirmed amlodipine 5 mg tablet 5 mg PO DAILY 06/24/24 02/18/25 sodium zirconium cyclosilicate 10 10 g PO DAILY #30 ea 10/27/24 02/18/25 gram oral powder packet (Lokelma) cholecalciferol (vitamin D3) 25 25 mcg PO DAILY 01/08/25 02/18/25 mcg (1,000 unit) capsule (Vitamin D3) levothyroxine 25 mcg tablet 25 mcg PO DAILY 01/08/25 02/18/25 thiamine mononitrate (vit B1) 100 100 mg PO DAILY 01/08/25 02/18/25 mg tablet blood-glucose sensor (FreeStyle 02/18/25 02/18/25 Beba 2 Plus Sensor device) mirtazapine 7.5 mg tablet 3.75 mg (1/2 x 7.5 mg) PO .QHS #45 02/18/25 02/18/25 tabs sodium chloride 1,000 mg soluble mg 02/18/25 tablet Saccharomyces boulardii 250 mg 250 mg PO BIDWM #14 caps 02/21/25 capsule sodium zirconium cyclosilicate 5 10 g PO BID #30 ea 02/21/25 gram oral powder packet (Lokelma) blood-glucose sensor (FreeStyle #1 ea 02/24/25 Beba 3 Sensor device) blood-glucose,media associate,cont #1 ea 02/24/25 (FreeStyle Beba 3 [place]) Allergies Allergies Allergy/AdvReac Type Severity Reaction Status Date / Time Penicillins Allergy Anaphylaxis Verified 03/02/25 01:31 vancomycin Allergy Rash Verified 03/02/25 01:31 methocarbamol AdvReac Dizziness Verified 03/02/25 01:31 PFSH Active Problems All Active Problems (Updated 03/02/25 @ 17:32 by Bobbi Awad MD) Hyperkalemia (Acute) Leukopenia (Acute) Hypothermia (Acute) Insomnia (Chronic) Swelling of right lower extremity (Acute) Cellulitis of right leg (Acute) Hypothermia (Acute) Hypoglycemia (Acute) Malabsorption (Acute) Weakness (Acute) Medical History Medical History Thrombocytopenia Depression Chronic hyperkalemia History of seizure Crohn disease Parastomal hernia Colostomy in place Alcohol dependence in remission UTI (urinary tract infection) Alcohol use Surgical History Surgical History History of colostomy Family History Family History (Updated 02/18/25 @ 05:39 by YOKASTA Ames, MSN) Mother Dementia Sister Cancer Social History Social History (Updated 02/18/25 @ 05:40 by YOKASTA Ames, MSN) Smoking Status: Unknown if ever smoked Second hand tobacco smoke exposure: No Do you dip or chew tobacco?: No Do you vape?: No Patient requests smoking cessation consult: No Initiate information on smoking cessation: No Living arrangement: At home Living Condition: With spouse/s.o. Relationship: Spouse Level: Assisted Home Mobility Equipment: Walker Do you feel safe in your home environment?: Yes Suffered physical, verbal, emotional, or financial abuse?: No History of Abuse: No ETOH Use: Other Frequency: Occasional Substance Use: denies use Substance Use Details: Pt. used to be alcoholic but quit drinking 2 yrs. 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 She tells me that she feeds her self, dresses herself. She is able to go to the bathroom by herself. Lives with her . Exam Exam Vital Signs: Vital Signs x48h Temp Pulse Resp BP Pulse Ox 03/02/25 14:41 36.2 C L 03/02/25 14:06 36.2 C L 57 L 14 114/80 100 03/02/25 13:28 36.1 C L 50 L 12 96/59 L 100 03/02/25 12:59 36.0 C L 43 L 109/63 99 03/02/25 12:43 35.2 C L 45 L 12 90/57 L 100 03/02/25 12:25 35.8 C L 45 L 12 100/61 100 03/02/25 12:03 35.8 C L 44 L 12 109/66 98 03/02/25 11:39 35.1 C L 43 L 10 L 95/61 99 03/02/25 10:20 34.5 C L 46 L 16 112/57 L 99 03/02/25 09:49 35.8 C L 46 L 16 95/59 L 97 Seen earlier this morning where she was lethargic and unresponsive except to sternal rub. After bear hugger and temperature rise and improvement in pulse rate she was asleep but woke easily to my voice. Constitutional normal general appearance and no apparent distress HENMT head/scalp atraumatic and hearing grossly normal bilaterally Eyes PERRL Conclusion/Plan Problem List (1) Hypothermia: Plan: With bradycardia, and hypoglycemia. Differential diagnosis for this constellation of symptoms includes sepsis, hypothyroidism, adrenal insufficiency, severe malnutrition and hypoglycemia in and of itself. This lady has a remote history of alcoholism and could have glycogen-storage deficiency on the basis of chronic liver failure. Bradycardia is a common consequence of hypothermia. But her liver enzymes are normal and INR is 1.0 when last checked in 2022. Levels have been checked and they are negative or undetectable. The ER provider has already evaluated her for causes of infection. Were not finding any and I agree with his decision to start her on Levaquin for empiric therapy in case we are missing a cause. She is also being evaluated for hypothyroidism and her TSH is slightly high but not enough to be the cause of her symptomatology. It is under 7. Previous TSH was also normal when she was initially evaluated for this syndrome. Adrenal insufficiency is associated with fatigue, weakness, weight loss and low blood pressure. She does not have hyperpigmentation. She does have low sugar levels. Blood pressure is hypertensive not hypotensive. Sodium has not been low. Cortisol level was done February 20 of this year and was 12.4. That is considered normal since it is a level between 5.0 and 23.0. Less than 3 is considered diagnostic, and anything above 18 is consistent with intact adrenal function. this patient had severe seizures that required intubation and transfer to [facility] is early October. She has not had any recurrence of seizures, and she is not on a seizure medication. When the provider dictated a admit history and physical with one of her hospitalizations here, they refer to those [facility] records. But that provider has access to [facility] medical records. They are not part of our medical record. And trying to put all of this together, could this patient have a bradycardic syndrome. She may need a pacer. If she gets bradycardic often enough and long enough the bradycardia can result in altered mental status, as well as hypothermia. With this admission she will be placed in observation. She is already responding and her temp is up. Hopefully she will wake up enough to eat. And then I will evaluate her physically tomorrow with PT and OT. And in the outpatient setting she really is going to need a Holter monitor or some type of cardiac eval. Her carvedilol was discontinued with her last discharge. I will verify with the if he is giving it to her or not. (2) Leukopenia: Plan: Clear why this patient has leukopenia. She has had it off and on for several years now. In the outpatient setting I would recommend a possible bone marrow biopsy and then referral to oncology. (3) Hypoglycemia: Plan: Associated with the bradycardia. However she does have a history of liver failure. Could she have enough liver disease that she cannot make her own glucose? During this stay I will give IV fluids of D5.She will also be on telemetry. (4) Altered mental status: Plan: With previous admissions, this patient has waxing and waning altered mental status. This morning she was quite altered, but by this afternoon with the bear hugger and IV fluids she is appropriate and answering my questions. Does not have any recollection of what happened last night or early this morning. 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 Nevertheless, hopefully she will be able to get up later this afternoon and eat. And I will also get out of bed tomorrow morning. Differential diagnosis includes stroke, neurological event, infection, substance abuse, unknown ingestion, hepatic encephalopathy but the evaluations in the past showed normal ammonia levels, no true infections even though we treat empirically, no substance abuse with toxicology screens negative, and she did have a seizure in October. I will discuss with her and her tomorrow. When she is more alert. And see if she has been referred for neurological evaluation. (5) Hyperkalemia: Plan: Long-term problem. reports he has not been able to access Lokelma. I will give Kayexalate during the stay and we may have to switch her home medicine to Kayexalate. Known cause for the hyperkalemia. Again may need referral to specialty evaluation with nephrology. At this point she needs to be seen by oncology, neurology, and nephrology. Lab Results Lab results reviewed: Yes 03/02/25 03:14 03/02/25 03:14 Other Lab Results: Urine toxicology screen negative for all substances Diagnostic Imaging Results Diagnostic Imaging Results: positive Final report reviewed Diagnostic Imaging Results Comments: Chest x-ray without acute cardiopulmonary process. EKG Results EKG Interpreted Independently: No Core Measures Anticipated LOS I expect patient to be DC'd or transferred within 96 hours.: Yes DVT/VTE - Prophylaxis VTE/DVT Prophylaxis med ordered at admit?: Yes
[2025-03-02 08:44] LABS: BACTERIA,URINE Rare /HPF (None Seen); SQUAMOUS EPITHELIAL CELL,UR FEW Squamous (<= Few); WBC,URINE 0-3 /HPF (0-5)
--- NOTE | 2025-03-02 08:49 | XRAY Report ---
PROCEDURE: XR Chest 1V INDICATIONS: Sepsis evaluation TECHNIQUE: One view of the chest was acquired. COMPARISON: None. FINDINGS: Surgical changes and devices: None. Lungs and pleura: Elevation of the right hemidiaphragm No pleural effusions or pneumothorax. No cons olidation. Mediastinum: Mediastinal contours appear normal. Heart size is normal. Bones and chest wall: No suspicious bony lesions. Overlying soft tissues appear unremarkable. Cervi saeed thoracic fixation hardware is present IMPRESSION: No acute cardiopulmonary process. Findings are concordant with preliminary interpretation provided by [facility]. Reviewed by: Will Schmid MD on 03/02/2025 7:48 AM VONNIE Approved by: Will Schmid MD on 03/02/2025 7:48 AM VONNIE Station ID: [id number]
[2025-03-02] MEDS ORDERED: SODIUM CHLORIDE FLUSH 0.9% 10 ML SYRINGE IVP PRN (09:08)
[2025-03-02] MEDS ORDERED: ONDANSETRON ODT 4 MG TABLET TL PRN (09:08)
[2025-03-02] MEDS ORDERED: ACETAMINOPHEN 325 MG TABLET PO PRN (09:08)
[2025-03-02] MEDS ORDERED: ONDANSETRON 4 MG/2 ML VIAL IVP PRN (09:08)
[2025-03-02] MEDS: SODIUM CHLORIDE FLUSH 0.9% 10 ML SYRINGE IVP SCH (10:24)
[2025-03-02] MEDS: oxyCODONE 5 MG TABLET PO PRN (16:12)
[2025-03-02] MEDS: SODIUM ZIRCONIUM CYCLOSILICATE 5 GM PACKET PO SCH (20:06)
[2025-03-02] MEDS: NAPROXEN 250 MG TABLET PO PRN (20:06)
[2025-03-02] MEDS: DEXTROSE 5%-0.9% NACL 1,000 ML IV SCH (20:09)
[2025-03-03 06:25] LABS: BASOPHILS % (AUTO) 0.7 %; EOSINOPHILS % (AUTO) 2.2 %; HCT - HEMATOCRIT 24.5 % (37.0-47.0); HGB - HEMOGLOBIN 7.5 g/dL (12.0-16.0); LYMPHOCYTES % (AUTO) 20.3 %; MEAN CORPUSCULAR HGB CONC 30.6 g/dL (32.0-36.0); MEAN CORPUSCULAR VOLUME 101.2 fL (81.0-99.0); MEAN PLATELET VOLUME 10.1 fL (7.9-10.8); MONOCYTES % (AUTO) 8.9 %; NEUTROPHILS % (AUTO) 67.5 %; PLT - PLATELET COUNT 147 10^3/uL (130-450); RED BLOOD COUNT 2.42 10^6/uL (4.20-5.40); WHITE BLOOD COUNT 2.7 x10^3/uL (4.8-10.8)
[2025-03-03 06:31] LABS: ABNORMAL LYMPHS % (MANUAL) 0 %
[2025-03-03 06:59] LABS: CREATININE 0.7 mg/dL (0.6-1.3)
[2025-03-03 07:01] LABS: BAND NEUTROPHILS % (MANUAL) 2 %; EOSINOPHILS # (MANUAL) 0.1 10^3/uL (0-0.7); LYMPHOCYTES # (MANUAL) 0.7 10^3/uL (1.5-3.5); LYMPHOCYTES % (MANUAL) 27 %; MONOCYTES # (MANUAL) 0.1 10^3/uL (0.0-1.0); NEUTROPHILS # (MANUAL) 1.8 10^3/uL (1.5-6.6)
[2025-03-03 07:03] LABS: DIFFERENTIAL COMMENT MANUAL DIFFERENTIAL; PLATELET ESTIMATE, MANUAL NORMAL (130-450,000) (NORMAL); PLATELET MORPHOLOGY NORMAL APPEARANCE (NORMAL); WBC MORPHOLOGY (MULTIPLE) NORMAL APPEARANCE (NORMAL)
--- NOTE | 2025-03-03 08:23 | PROVIDER PROGRESS NOTE ---
Subjective Prog Note Date Prog Note Date: 03/03/25 Prog Note Time: 08:21 Subjective Subjective: I notified her primary care provider yesterday that the patient was in the hospital. And her primary care provider ORQUIDEA Laboy called this morning to update me on the outpatient part of her care. 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 The patient has run out of her Lokelma and the primary care provider is in the process of getting another authorization to get refill. Mr. Wynn says he should be able to pick it up today. Mr. Wynn says that they did get an appointment with an salesperson [employer]. But then they got a phone call saying that their case was "too complicated" and that salesperson [employer] asked that the patient be referred to . Mr. Wynn says that he is in the process of trying to make that phone call. He is overwhelmed and he is gotten "too busy taking care of his " to make that phone call yet. For the hypoglycemia ORQUIDEA Petit is looking for pancreatic tumor and an ultrasound has been ordered but has not been done yet. Apparently you had to be fasting 18 hours to do an MRI of the pancreas for insulinoma and the patient cannot tolerate fasting for 12 hours or/18 hours. She also has a history of an eating disorder. 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 She would work out 4 hours a day and only eat yogurt. She was seen for eating disorder at [facility] when she was transferred for her seizure. And they felt that her weight loss was "medical" not due to eating disorder. The provider does have a neurology consult requested but the patient has not been able to get an appointment yet. We discussed the use of Coreg. Her blood pressure had increased. The patient cannot use an ELINA inhibitor, an ARB or spironolactone. We discussed the fact that the Coreg had been stopped due to bradycardia with her last admission. I recommended the use of hydralazine or another alpha-di to control the BP. Provider also wanted me to know that the patient had had a mass transfusion protocol at [facility]. When she was transferred from [facility] to [facility], there was a sudden drop in her hemoglobin when [facility] repeated the H&H. She underwent massive transfusion protocol because of the "acute blood loss". It was later found out that it was an erroneous lab result. Current Medications Current Medications Current Medications: Current Medications Generic Name Dose Route Start Last Admin Trade Name Freq PRN Reason Stop Dose Admin Acetaminophen 650 mg 03/02/25 09:08 Acetaminophen 325 Mg Tablet PO Q4HR PRN Pain 1 to 4, or Fever Dextrose/Sodium Chloride 1,000 mls @ 83.333 mls/hr 03/02/25 20:00 03/02/25 20:09 D5ns IV 83.33 mls/hr .Q12H FRANK Administration Naproxen 250 mg 03/02/25 19:31 03/02/25 20:06 Naproxen 250 Mg Tablet PO 250 mg TID PRN Administration Moderate Pain (Level 4-6) Ondansetron HCl 4 mg 03/02/25 09:08 Ondansetron Odt 4 Mg Tablet TL Q6HR PRN Nausea / Vomiting Ondansetron HCl 4 mg 03/02/25 09:08 Ondansetron 4 Mg/2 Ml Vial IVP Q6HR PRN Nausea / Vomiting Oxycodone HCl 5 mg 03/02/25 09:08 03/03/25 08:15 Oxycodone 5 Mg Tablet PO 5 mg Q4HR PRN Administration Pain 5 to 7 Sodium Chloride 10 ml 03/02/25 09:08 Sodium Chloride Flush 0.9% 10 Ml Syringe IVP PRN PRN NEEDED PER PROVIDER ORDERS Sodium Chloride 10 ml 03/02/25 09:08 03/02/25 23:57 Sodium Chloride Flush 0.9% 10 Ml Syringe IVP 10 ml 0100,0900,1700 FRANK Administration Sodium Zirconium Cyclosilicate 10 gm 03/02/25 21:00 03/03/25 08:16 Sodium Zirconium Cyclosilicate 5 Gm Packet PO 10 gm BID FRANK Administration Objective Vital Signs/Intake & Output Vital Signs: Vital Signs x48h Temp Pulse Resp BP Pulse Ox 03/03/25 05:00 36.3 C L 51 L 18 124/73 99 Intake & Output: Intake & Output 02/28/25 03/01/25 03/02/25 03/03/25 23:59 23:59 23:59 23:59 Intake Total 690 / 690 75 / 75 Output Total 950 / 950 225 / 225 Balance -260 / -260 -150 / -150 Weight (kg) 42.5 kg Lab Results 03/03/25 05:00 03/03/25 05:00 Other Labs: Lab Results x24hrs 03/03/25 03/03/25 03/03/25 Range/Units 07:48 05:00 05:00 WBC (4.8-10.8) x10^3/uL RBC (4.20-5.40) 10^6/uL Hgb (12.0-16.0) g/dL Hct (37.0-47.0) % MCV (81.0-99.0) fL MCH (27.0-31.0) pg MCHC (32.0-36.0) g/dL RDW (12.0-15.0) % Plt Count (130-450) 10^3/uL MPV (7.9-10.8) fL Neut # (Auto) Lymph # (Auto) Miner # (Auto) Eos # (Auto) Baso # (Auto) Absolute Nucleated RBC Total Counted Band Neuts % (Manual) (0 - 10) % Abnorm Lymph % (Manual) % Nucleated RBC % Neutrophils # (Manual) (1.5-6.6) 10^3/uL Lymphocytes # (Manual) (1.5-3.5) 10^3/uL Monocytes # (Manual) (0.0-1.0) 10^3/uL Eosinophils # (Manual) (0-0.7) 10^3/uL Basophils # (Manual) (0-0.1) 10^3/uL Differential Comment WBC Morphology (NORMAL) Platelet Estimate (NORMAL) Platelet Morphology (NORMAL) RBC Morph Micro Appear 1+ OVALOCYTES 1+ HYPOCHROMASIA (NORMAL) Sodium 140 (135-145) mmol/L Potassium 5.0 H (3.5-4.5) mmol/L Chloride 114 H (101-111) mmol/L Carbon Dioxide 24 (21-32) mmol/L Anion Gap 2.0 L (6-13) BUN 29 H (6-20) mg/dL Creatinine 0.7 (0.6-1.3) mg/dL Estimated GFR (MDRD) 84 L (>89) Glucose 82 (74-104) mg/dL POC Whole Bld Glucose 113 (70-100) mg/dL Calcium 9.0 (8.5-10.3) mg/dL Troponin I High Sens (2.3-14.8) ng/L Urine Color Urine Clarity (CLEAR) Urine pH (5.0-7.5) PH Ur Specific [place] (1.002-1.030) Urine Protein (NEGATIVE) mg/dL Urine Glucose (UA) (NEGATIVE) mg/dL Urine Ketones (NEGATIVE) mg/dL Urine Occult Blood (NEGATIVE) Urine Nitrite (NEGATIVE) Urine Bilirubin (NEGATIVE) Urine Urobilinogen (NORMAL) E.U./dL Ur Leukocyte Esterase (NEGATIVE) Urine RBC (0-5) /HPF Urine WBC (0-5) /HPF Ur Squamous Epith Cells (<= Few) Urine Bacteria (None Seen) /HPF Ur Microscopic Review Urine Culture Comments Nasal Adenovirus (PCR) Nasal B. parapertussis DNA (PCR) Nasal Coronavir 229E PCR Nasal Coronavir HKU1 PCR Nasal Coronavir NL63 PCR Nasal Coronavir OC43 PCR Nasal Enterovir/Rhinovir PCR Nasal Influenza B PCR Nasal Influenza A PCR Nasal Parainfluen 1 PCR Nasal Parainfluen 2 PCR Nasal Parainfluen 3 PCR Nasal Parainfluen 4 PCR Nasal RSV (PCR) Nasal B.pertussis DNA PCR Nasal C.pneumoniae (PCR) Daniel Human Metapneumo PCR Nasal M.pneumoniae (PCR) Nasal SARS-CoV-2 (PCR) Urine Opiates Screen (NEGATIVE) Ur Buprenorphine Scrn (NEGATIVE) Ur Oxycodone Screen (NEGATIVE) Urine Methadone Screen (NEGATIVE) Ur Barbiturates Screen (NEGATIVE) Ur Tricyclics Screen (NEGATIVE) Ur Phencyclidine Scrn (NEGATIVE) Ur Amphetamine Screen (NEGATIVE) U Methamphetamines Scrn (NEGATIVE) U Benzodiazepines Scrn (NEGATIVE) Urine Cocaine Screen (NEGATIVE) U Cannabinoids Screen (NEGATIVE) Ur Drug Screen Comment 03/03/25 03/03/25 03/02/25 Range/Units 05:00 05:00 21:49 WBC 2.7 L (4.8-10.8) x10^3/uL RBC 2.42 L (4.20-5.40) 10^6/uL Hgb 7.5 L (12.0-16.0) g/dL Hct 24.5 L (37.0-47.0) % MCV 101.2 H (81.0-99.0) fL MCH 31.0 (27.0-31.0) pg MCHC 30.6 L (32.0-36.0) g/dL RDW 22.0 H (12.0-15.0) % Plt Count 147 (130-450) 10^3/uL MPV 10.1 (7.9-10.8) fL Neut # (Auto) Not Reportable Lymph # (Auto) Not Reportable Miner # (Auto) Not Reportable Eos # (Auto) Not Reportable Baso # (Auto) Not Reportable Absolute Nucleated RBC Not Reportable Total Counted 100 Band Neuts % (Manual) 2 (0 - 10) % Abnorm Lymph % (Manual) 0 % Nucleated RBC % Not Reportable Neutrophils # (Manual) 1.8 (1.5-6.6) 10^3/uL Lymphocytes # (Manual) 0.7 L (1.5-3.5) 10^3/uL Monocytes # (Manual) 0.1 (0.0-1.0) 10^3/uL Eosinophils # (Manual) 0.1 (0-0.7) 10^3/uL Basophils # (Manual) 0.0 (0-0.1) 10^3/uL Differential Comment MANUAL DIFFERENTIAL WBC Morphology NORMAL APPEARANCE (NORMAL) Platelet Estimate NORMAL (130-450,000) (NORMAL) Platelet Morphology NORMAL APPEARANCE (NORMAL) RBC Morph Micro Appear 1+ MACROCYTOSIS 1+ ANISOCYTOSIS (NORMAL) Sodium (135-145) mmol/L Potassium (3.5-4.5) mmol/L Chloride (101-111) mmol/L Carbon Dioxide (21-32) mmol/L Anion Gap (6-13) BUN (6-20) mg/dL Creatinine (0.6-1.3) mg/dL Estimated GFR (MDRD) (>89) Glucose (74-104) mg/dL POC Whole Bld Glucose (70-100) mg/dL Calcium (8.5-10.3) mg/dL Troponin I High Sens 4.0 (2.3-14.8) ng/L Urine Color Urine Clarity (CLEAR) Urine pH (5.0-7.5) PH Ur Specific [place] (1.002-1.030) Urine Protein (NEGATIVE) mg/dL Urine Glucose (UA) (NEGATIVE) mg/dL Urine Ketones (NEGATIVE) mg/dL Urine Occult Blood (NEGATIVE) Urine Nitrite (NEGATIVE) Urine Bilirubin (NEGATIVE) Urine Urobilinogen (NORMAL) E.U./dL Ur Leukocyte Esterase (NEGATIVE) Urine RBC (0-5) /HPF Urine WBC (0-5) /HPF Ur Squamous Epith Cells (<= Few) Urine Bacteria (None Seen) /HPF Ur Microscopic Review Urine Culture Comments Nasal Adenovirus (PCR) Nasal B. parapertussis DNA (PCR) Nasal Coronavir 229E PCR Nasal Coronavir HKU1 PCR Nasal Coronavir NL63 PCR Nasal Coronavir OC43 PCR Nasal Enterovir/Rhinovir PCR Nasal Influenza B PCR Nasal Influenza A PCR Nasal Parainfluen 1 PCR Nasal Parainfluen 2 PCR Nasal Parainfluen 3 PCR Nasal Parainfluen 4 PCR Nasal RSV (PCR) Nasal B.pertussis DNA PCR Nasal C.pneumoniae (PCR) Daniel Human Metapneumo PCR Nasal M.pneumoniae (PCR) Nasal SARS-CoV-2 (PCR) Urine Opiates Screen (NEGATIVE) Ur Buprenorphine Scrn (NEGATIVE) Ur Oxycodone Screen (NEGATIVE) Urine Methadone Screen (NEGATIVE) Ur Barbiturates Screen (NEGATIVE) Ur Tricyclics Screen (NEGATIVE) Ur Phencyclidine Scrn (NEGATIVE) Ur Amphetamine Screen (NEGATIVE) U Methamphetamines Scrn (NEGATIVE) U Benzodiazepines Scrn (NEGATIVE) Urine Cocaine Screen (NEGATIVE) U Cannabinoids Screen (NEGATIVE) Ur Drug Screen Comment 03/02/25 03/02/25 03/02/25 Range/Units 20:34 12:56 08:20 WBC (4.8-10.8) x10^3/uL RBC (4.20-5.40) 10^6/uL Hgb (12.0-16.0) g/dL Hct (37.0-47.0) % MCV (81.0-99.0) fL MCH (27.0-31.0) pg MCHC (32.0-36.0) g/dL RDW (12.0-15.0) % Plt Count (130-450) 10^3/uL MPV (7.9-10.8) fL Neut # (Auto) Lymph # (Auto) Miner # (Auto) Eos # (Auto) Baso # (Auto) Absolute Nucleated RBC Total Counted Band Neuts % (Manual) (0 - 10) % Abnorm Lymph % (Manual) % Nucleated RBC % Neutrophils # (Manual) (1.5-6.6) 10^3/uL Lymphocytes # (Manual) (1.5-3.5) 10^3/uL Monocytes # (Manual) (0.0-1.0) 10^3/uL Eosinophils # (Manual) (0-0.7) 10^3/uL Basophils # (Manual) (0-0.1) 10^3/uL Differential Comment WBC Morphology (NORMAL) Platelet Estimate (NORMAL) Platelet Morphology (NORMAL) RBC Morph Micro Appear (NORMAL) Sodium (135-145) mmol/L Potassium (3.5-4.5) mmol/L Chloride (101-111) mmol/L Carbon Dioxide (21-32) mmol/L Anion Gap (6-13) BUN (6-20) mg/dL Creatinine (0.6-1.3) mg/dL Estimated GFR (MDRD) (>89) Glucose (74-104) mg/dL POC Whole Bld Glucose 129 77 59 (70-100) mg/dL Calcium (8.5-10.3) mg/dL Troponin I High Sens (2.3-14.8) ng/L Urine Color Urine Clarity (CLEAR) Urine pH (5.0-7.5) PH Ur Specific [place] (1.002-1.030) Urine Protein (NEGATIVE) mg/dL Urine Glucose (UA) (NEGATIVE) mg/dL Urine Ketones (NEGATIVE) mg/dL Urine Occult Blood (NEGATIVE) Urine Nitrite (NEGATIVE) Urine Bilirubin (NEGATIVE) Urine Urobilinogen (NORMAL) E.U./dL Ur Leukocyte Esterase (NEGATIVE) Urine RBC (0-5) /HPF Urine WBC (0-5) /HPF Ur Squamous Epith Cells (<= Few) Urine Bacteria (None Seen) /HPF Ur Microscopic Review Urine Culture Comments Nasal Adenovirus (PCR) Nasal B. parapertussis DNA (PCR) Nasal Coronavir 229E PCR Nasal Coronavir HKU1 PCR Nasal Coronavir NL63 PCR Nasal Coronavir OC43 PCR Nasal Enterovir/Rhinovir PCR Nasal Influenza B PCR Nasal Influenza A PCR Nasal Parainfluen 1 PCR Nasal Parainfluen 2 PCR Nasal Parainfluen 3 PCR Nasal Parainfluen 4 PCR Nasal RSV (PCR) Nasal B.pertussis DNA PCR Nasal C.pneumoniae (PCR) Daniel Human Metapneumo PCR Nasal M.pneumoniae (PCR) Nasal SARS-CoV-2 (PCR) Urine Opiates Screen (NEGATIVE) Ur Buprenorphine Scrn (NEGATIVE) Ur Oxycodone Screen (NEGATIVE) Urine Methadone Screen (NEGATIVE) Ur Barbiturates Screen (NEGATIVE) Ur Tricyclics Screen (NEGATIVE) Ur Phencyclidine Scrn (NEGATIVE) Ur Amphetamine Screen (NEGATIVE) U Methamphetamines Scrn (NEGATIVE) U Benzodiazepines Scrn (NEGATIVE) Urine Cocaine Screen (NEGATIVE) U Cannabinoids Screen (NEGATIVE) Ur Drug Screen Comment 03/02/25 03/02/25 Range/Units 07:47 07:25 WBC (4.8-10.8) x10^3/uL RBC (4.20-5.40) 10^6/uL Hgb (12.0-16.0) g/dL Hct (37.0-47.0) % MCV (81.0-99.0) fL MCH (27.0-31.0) pg MCHC (32.0-36.0) g/dL RDW (12.0-15.0) % Plt Count (130-450) 10^3/uL MPV (7.9-10.8) fL Neut # (Auto) Lymph # (Auto) Miner # (Auto) Eos # (Auto) Baso # (Auto) Absolute Nucleated RBC Total Counted Band Neuts % (Manual) (0 - 10) % Abnorm Lymph % (Manual) % Nucleated RBC % Neutrophils # (Manual) (1.5-6.6) 10^3/uL Lymphocytes # (Manual) (1.5-3.5) 10^3/uL Monocytes # (Manual) (0.0-1.0) 10^3/uL Eosinophils # (Manual) (0-0.7) 10^3/uL Basophils # (Manual) (0-0.1) 10^3/uL Differential Comment WBC Morphology (NORMAL) Platelet Estimate (NORMAL) Platelet Morphology (NORMAL) RBC Morph Micro Appear (NORMAL) Sodium (135-145) mmol/L Potassium (3.5-4.5) mmol/L Chloride (101-111) mmol/L Carbon Dioxide (21-32) mmol/L Anion Gap (6-13) BUN (6-20) mg/dL Creatinine (0.6-1.3) mg/dL Estimated GFR (MDRD) (>89) Glucose (74-104) mg/dL POC Whole Bld Glucose (70-100) mg/dL Calcium (8.5-10.3) mg/dL Troponin I High Sens (2.3-14.8) ng/L Urine Color YELLOW Urine Clarity CLEAR (CLEAR) Urine pH 6.0 (5.0-7.5) PH Ur Specific [place] 1.015 (1.002-1.030) Urine Protein NEGATIVE (NEGATIVE) mg/dL Urine Glucose (UA) NEGATIVE (NEGATIVE) mg/dL Urine Ketones NEGATIVE (NEGATIVE) mg/dL Urine Occult Blood SMALL H (NEGATIVE) Urine Nitrite NEGATIVE (NEGATIVE) Urine Bilirubin NEGATIVE (NEGATIVE) Urine Urobilinogen 0.2 (NORMAL) (NORMAL) E.U./dL Ur Leukocyte Esterase NEGATIVE (NEGATIVE) Urine RBC 6-10 H (0-5) /HPF Urine WBC 0-3 (0-5) /HPF Ur Squamous Epith Cells FEW Squamous (<= Few) Urine Bacteria Rare (None Seen) /HPF Ur Microscopic Review INDICATED Urine Culture Comments NOT INDICATED Nasal Adenovirus (PCR) NOT DETECTED Nasal B. parapertussis DNA (PCR) NOT DETECTED Nasal Coronavir 229E PCR NOT DETECTED Nasal Coronavir HKU1 PCR NOT DETECTED Nasal Coronavir NL63 PCR NOT DETECTED Nasal Coronavir OC43 PCR NOT DETECTED Nasal Enterovir/Rhinovir PCR NOT DETECTED Nasal Influenza B PCR NOT DETECTED Nasal Influenza A PCR NOT DETECTED Nasal Parainfluen 1 PCR NOT DETECTED Nasal Parainfluen 2 PCR NOT DETECTED Nasal Parainfluen 3 PCR NOT DETECTED Nasal Parainfluen 4 PCR NOT DETECTED Nasal RSV (PCR) NOT DETECTED Nasal B.pertussis DNA PCR NOT DETECTED Nasal C.pneumoniae (PCR) NOT DETECTED Daniel Human Metapneumo PCR NOT DETECTED Nasal M.pneumoniae (PCR) NOT DETECTED Nasal SARS-CoV-2 (PCR) NOT DETECTED Urine Opiates Screen NEGATIVE (NEGATIVE) Ur Buprenorphine Scrn NEGATIVE (NEGATIVE) Ur Oxycodone Screen NEGATIVE (NEGATIVE) Urine Methadone Screen NEGATIVE (NEGATIVE) Ur Barbiturates Screen NEGATIVE (NEGATIVE) Ur Tricyclics Screen NEGATIVE (NEGATIVE) Ur Phencyclidine Scrn NEGATIVE (NEGATIVE) Ur Amphetamine Screen NEGATIVE (NEGATIVE) U Methamphetamines Scrn NEGATIVE (NEGATIVE) U Benzodiazepines Scrn NEGATIVE (NEGATIVE) Urine Cocaine Screen NEGATIVE (NEGATIVE) U Cannabinoids Screen NEGATIVE (NEGATIVE) Ur Drug Screen Comment CUTOFF CONC BELOW: Assessment/Plan Problem List (1) Hypothermia: (2) Leukopenia: (3) Hypoglycemia: (4) Altered mental status: (5) Hyperkalemia:
[2025-03-03] MEDS: MAGNESIUM SULFATE 2 GRAM 2 GM/50 ML BAG IV ONE (11:23)
--- NOTE | 2025-03-03 12:08 | PHARMACY PROGRESS NOTE ---
Best Possible Medication History Admit Date and Time: 03/02/25 [id number] Home Medications Medication Instructions Recorded Confirmed Type amlodipine 5 mg tablet 5 mg PO DAILY 06/24/24 03/03/25 History sodium zirconium cyclosilicate 10 10 g PO DAILY #30 ea 10/27/24 03/03/25 Rx gram oral powder packet (Lokelma) cholecalciferol (vitamin D3) 25 25 mcg PO DAILY 01/08/25 03/03/25 History mcg (1,000 unit) capsule (Vitamin D3) levothyroxine 25 mcg tablet 25 mcg PO DAILY 01/08/25 03/03/25 History thiamine mononitrate (vit B1) 100 100 mg PO DAILY 01/08/25 03/03/25 History mg tablet blood-glucose sensor (FreeStyle 02/18/25 02/18/25 History Beba 2 Plus Sensor device) sodium chloride 1,000 mg soluble 1,000 mg PO BID 02/18/25 03/03/25 History tablet blood-glucose sensor (FreeStyle #1 ea 02/24/25 Rx Beba 3 Sensor device) blood-glucose,bee raiser,cont #1 ea 02/24/25 Rx (FreeStyle Beba 3 [place]) carvedilol 3.125 mg tablet 3.125 mg PO DAILY PM 03/03/25 03/03/25 History magnesium oxide 400 mg PO BID 03/03/25 03/03/25 History Processed by: Pharmacy (Medication reconciliation completed by pharmacy technician per diemBrenda) Medications reviewed in ED?: No Medication History completed: Yes Patient Interview: Completed Secondary Source(s): Written medication list, Spouse/Significant other and Insurance records [facility] Statement: As the person ultimately responsible for medication therapy, providers are able to order a medication from an existing home medication list in [facility] via the "Reconcile Routine" prior to Confirmation of that medication by help desk support specialist. Such practice is discouraged except when the physician, in their clinical judgment, deems that a medical need exists for a medication without regard to previous use.
[2025-03-03] MEDS ORDERED: GADOTERATE MEGLUMINE 7.5 MMOL/15 ML VIAL ONE (12:42)
[2025-03-03] MEDS: LORazepam 2 MG/ML VIAL IVP ONE (17:13)
[2025-03-03] MEDS: LORazepam 2 MG/ML VIAL IVP STA (17:38)
--- NOTE | 2025-03-03 17:55 | Discharge Summary ---
Discharge Summary Admit Date: 03/02/25 Discharge Date: 03/03/25 Discharging Provider: Bobbi Awad MD Primary Care Provider: Wendy Petit MD Code Status: Attempt Resuscitation DIAGNOSES Discharge Diagnoses with Status of Each Condition: 1. Altered mental status secondary to #2, #3 2. Hypothermia 3. Hypoglycemia 4. Leukopenia 5. 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 But I am not seeing it on her med list. Her shared this infor with the ER MD. She was brought in by her because her heart rate has been too low for the last day and her blood pressure has been "high" in the 150-170s systolic. No chest pain, palpitations, shortness of breath. She is fatigued. In the ER they found her to have bradycardia to the 40s. Mild hypertension at 157/83. But she was hypothermic to 29 degrees. They initially could not get temperature orally and they ended up doing a rectal probe. They queried her with regards to sepsis or infection and her review of systems was negative. She is hyperkalemic at 5.7. She has been hyperkalemic in the past and no diagnoses been attributed to that. Anion gap is low, BUN is 34, lactic acid 1. Magnesium low at 1.4. TSH slightly high at 6.39. Glucose is low at 99. When she was admitted February 21 she was as low as 54. When I review her records she was 62 in December 2024. In October she was 63. 67 in September 2024. 64 in July 2023.She is neutropenic with a white cell count of 1.7. She has been intermittently neutropenic since 2022. This alternates with a high white cell count with a high of 17,000. She does have normal white cell counts in between. Her neutropenia is usually 2.7-3.7. Her last severely low white cell count was in July 2023 when she was 1.9. Sources of infection including chest x-ray and urinalysis were investigated for this encounter in the ER. Urine has a small occult blood, 6-10 red cells, but negative leukocyte esterase, negative nitrites. Chest x-ray interpreted by radiology as a preliminary report has no acute cardiopulmonary findings. The ER provider has started empiric treatment with Levaquin after obtaining the urinalysis, and blood cultures. He has contacted me and asked if we could please place her in observation. He is concerned that she has sepsis with hypothermia. Unknown cause. And will need to do an observation for the bradycardia in the 40s. I believe that is a prudent plan. And I will be ordering observation status. Once she was transferred to [facility], I examined the patient. She is asleep and easily awakens. She is underneath a bear hugger that I have ordered to warm her up. She initially did not know she was in the hospital and was startled. At the end of my exam I asked her where she was and she remembered that she was in the hospital. I had explained to her why she was here but she could not remember that. Speech is normal, sentence structure intact. Sleepy. She feels like she was stable at home without new issues. She walks with a walker. Sometimes she goes takes a walk outside. Not daily but several times a week. That was unchanged. She denied fever, chills. Her ears, throat, abdomen, chest do not hurt. She has no postnasal drip. No sore throat. She says she has been taking her medications. She remembers Monday and Monday. But somewhere Monday afternoon into the evening everything is "hazy". She does not really remember getting here, and she is waking up right now startled that she is in the hospital. She states that she is eating normally in spite of her hx of Crohn's, colectomy and taking Humira.She denies diarrhea or change in pattern of her BM these last few days. No cough, no sob. No weight changes. Her weight was as low as 36 kg January 08. January 20 she was 45 kg. At discharge February 21 she was 43.5 kg. Today she is 42.5 kg. Has a history of chronic intermittent altered mental status. In the past has been attributed to low sodium. She presented as altered mental status and weakness in September 2024 to our hospital. She was confused at home. She was leukopenic. Platelets 99. Over the next 5 days she was lethargic. Answering in one-word syllables. She had an episode of hypoglycemia to 67. Her energy state interactions waxed and waned. This would alternate with the person who would be walking in the hallways with PT and OT. PT recommended SNF discharge. There is no note as to why she ended up going home with home health. She has been admitted at [facility] in October 2024 for altered mental status. Sodium was 125. They reached out to nephrology at [facility] nephrology felt that this was not the cause of her altered mental status. CT of the brain was negative then. Ultrasound of the abdomen showed hepatic steatosis without ascites. Ammonia level was normal. TSH was 7.5. She has a history of alcohol abuse with her last alcohol use in 2022. Confusion and delusional thought process started happening in 2023. She then was witnessed as having a tonic-clonic seizure that did not respond to IV Ativan and she had to be intubated. On the monitor she had a heart rate of 55. No peripheral pulses were palpated and they realized that the patient was in PEA arrest and CPR initiated. After 10 minutes of CPR, epinephrine and bicarb the patient had ROSC. Complication was left lower lobe aspiration. In the end they felt it was a primary neurologic event with anoxic encephalopathy due to cardiac arrest. She was transferred to [facility]. then discharged. She was not discharged home on any antiseizure medication. November 27 she returned again confusion. She was found to be hyponatremic, given normal saline and sent home. Her confusion worsens her brought her back. She was again hyponatremic to 128. UA clear. She was kept overnight and treated with normal saline and sent home. January 08 again with increased confusion. was helping her get into the bath but he was so confused that he had to pick her up and get her back out of the tub and brought her to the ER. CT negative. Sodium 131. Glucose 69. She was given glucose and had some improvement. She was discharged the next day. January 20 was seen by her PCP in [place]. And was told to come to the emergency room because of altered mental status. For several days she had decreased ostomy output and abdominal swelling. Episodes of nausea and vomiting. With this admission, she had episodes of bradycardia with a heart rate into the low 30s with a rhythm of atrial fibrillation. In the ER she had a heart rate briefly into the high 40s but still bradycardic and hypotensive. Central line was placed in the emergency room and she was started on Levophed. CT of the abdomen negative. CT of the head negative. She was discharged January 24. Antibiotics had initially been started for possible infection but they were discontinued and she was treated for dehydration and electrolyte derangement. She was weaned off the Levophed. She returned February 17. She presented by ambulance with complaints of right leg swelling of 1 week duration. She had been seen in the outpatient clinic 4 days prior and was negative for DVT but started on oral antibiotics for that leg pain. In the ER she was hypothermic and lethargic. Elevated lactic acid and low white cell count. She was admitted for further management of cellulitis and possible sepsis. The infection resolved with antibiotics. Hyperkalemia resolved on Lokelma. And she was discharged on Lokelma and Florastor. Carvedilol was discontinued. Her primary care provider is YOKASTA Laboy at [facility]. She is a full code. CONSULTS | PROCEDURES Procedures: Chest x-ray without acute cardiopulmonary process. MRI of abdomen was done just before discharge and results are pending. Need to be reviewed by primary care provider. Blood cultures are without growth after 1 day Telemetry with sinus bradycardia HOSPITAL COURSE Hospital Course: her primary care provider ORQUIDEA Laboy called this morning to update me on the outpatient part of her care. She is felt to have renal tubular acidosis as the cause of her hyperkalemia and she has been referred to endocrinology.. The patient has run out of her Lokelma and the primary care provider is in the process of getting another authorization to get refill. Mr. Wynn says he should be able to pick it up today. He is overwhelmed and he is gotten "too busy taking care of his " to make that phone call yet. For the hypoglycemia ORQUIDEA Petit is looking for pancreatic tumor and an ultrasound has been ordered but has not been done yet. Apparently you had to be fasting 18 hours to do an MRI of the pancreas for insulinoma and the patient cannot tolerate fasting for 12 hours or/18 hours. She also has a history of an eating disorder. 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 She would work out 4 hours a day and only eat yogurt. She was seen for eating disorder at [facility] when she was transferred for her seizure. And they felt that her weight loss was "medical" not due to eating disorder. TELECOM COORDINATORCheri Petit and I discussed the use of Coreg. Her blood pressure had increased. The patient cannot use an ELINA inhibitor, an ARB or spironolactone. We discussed the fact that the Coreg had been stopped due to bradycardia with her last admission. I recommended the use of hydralazine or another alpha-di to control the BP. Provider also wanted me to know that the patient had had a mass transfusion protocol at [facility]. When she was transferred from [facility] to [facility], there was a sudden drop in her hemoglobin when [facility] repeated the H&H. She underwent massive transfusion protocol because of the "acute blood loss". It was later found out that it was an erroneous lab result.Patient was placed on a bear hugger and slowly rewarmed. She began waking up when her temperature was above 35.5. At discharge her temperature is 36.0. The patient was watched on telemetry and pulse continues to be in the 40s. Blood pressure is stable with this at 124/75. When she was initially admitted and hypothermic her blood pressure was as low as 90/57. In addition to warming her up, she was on a D5 drip temporarily for hypoglycemia. When she was able to eat, her D5 drip was stopped. The patient has a referral to endocrinology. The first endocrinology referral resulted in that policy adviser declining the referral because her case was too complicated. So the patient's has been trying to call endocrinology to schedule. He tried 3 times today, and let it ring 20 times with no recording or answering device there. She was also seen by get an ultrasound of her pancreas. An MRI was wanted to diagnosed for possible insulinoma but she has to be fasting for 18 hours according to the PCP. I explained that this patient is here, I can get an MRI without the fasting because I do not think she could survive fasting for 18 hours without a D5 drip. So she had an MRI right before discharge and the results are pending. I tried to get an MRI of the brain but, due to logistics, it could not be done today. She has an [facility] neurology appointment on March 25. This is on [facility]. She will be following up for cognitive deficit, possible anoxic brain injury. The states that his is seeing nephrology for her hyperkalemia. But he really did not like the culinary arts teacher. I explained that he needs to follow-up with this. It is very important for her health that she continue to see nephrology. He is a very loving . He states that he wants her to be around a long time. But I believe he may be struggling due to memory loss. He tries as hard as he can but has difficulty accomplishing tasks. He had forgotten that she had an appointment on March 25 until he called the neurology office today and they reminded him that he already has an appointment. I have asked him to please reach out to his children to see if they could help. He is frustrated. He just wishes he knew what was wrong with his and I sympathize. Bradycardia, hypothermia, hypoglycemia are present without a diagnosis to explain them. But I also explained that we are critical access hospital. While we can help his symptomatically, we are not specialist and she really needs to follow through with all of these appointments. She should also be evaluated for her leukopenia. Even it is a peripheral flow cytometry. At discharge this patient is alert and oriented to person, place and situation. Not necessarily to time. Temperature is 36 degrees. Heart rate is 49. She rarely gets above 54. Respirations are 14. O2 sat is 99% on room air and blood pressure is 124/75. She is 4 foot 10 inches tall, 42.5 kg. She looks older than her stated age. Neck is supple. Lungs are clear. Regular rate and rhythm. Abdomen is soft and nontender. No focal deficits but needs a standby assist to go from supine to sitting, sitting to standing. Greater than 30 minutes spent coordinating discharge especially with my phone call to . This document was made in part using voice recognition software. While efforts are made to proofread this document, sound alike and grammatical errors may occur. ALLERGIES Allergies Allergy/AdvReac Type Severity Reaction Status Date / Time Penicillins Allergy Anaphylaxis Verified 03/02/25 01:31 vancomycin Allergy Rash Verified 03/02/25 01:31 methocarbamol AdvReac Dizziness Verified 03/02/25 01:31 MEDICATIONS Ambulatory Orders Medication Instructions Recorded Confirmed amlodipine 5 mg tablet 5 mg PO DAILY 06/24/24 03/03/25 sodium zirconium cyclosilicate 10 10 g PO DAILY #30 ea 10/27/24 03/03/25 gram oral powder packet (Lokelma) cholecalciferol (vitamin D3) 25 25 mcg PO DAILY 01/08/25 03/03/25 mcg (1,000 unit) capsule (Vitamin D3) levothyroxine 25 mcg tablet 25 mcg PO DAILY 01/08/25 03/03/25 thiamine mononitrate (vit B1) 100 100 mg PO DAILY 01/08/25 03/03/25 mg tablet blood-glucose sensor (FreeStyle 02/18/25 02/18/25 Beba 2 Plus Sensor device) sodium chloride 1,000 mg soluble 1,000 mg PO BID 02/18/25 03/03/25 tablet blood-glucose sensor (FreeStyle #1 ea 02/24/25 Beba 3 Sensor device) blood-glucose,ux design manager,cont #1 ea 02/24/25 (FreeStyle Beba 3 Gray) magnesium oxide 400 mg PO BID 03/03/25 03/03/25 PHYSICAL EXAM AT DISCHARGE Vital Signs: Vital Signs x48h Temp Pulse Resp BP Pulse Ox 03/03/25 16:19 36.0 C L 49 L 14 124/75 99 03/03/25 12:34 36.0 C L 50 L 10 L 129/75 98 LABS 03/03/25 05:00 03/03/25 05:00 Discharge Plan Discharge Patient Disposition: Home, Self Care Condition: Fair Medically Cleared Date:: 03/03/25 Prescriptions: Continued (DME) FreeStyle Beba 3 Gray Misc See Rx Instructions .Route Qty: 1 0RF Rx Instructions: Use as directed to monitor for low blood sugar (DME) FreeStyle Beba 3 Sensor Device See Rx Instructions .Route Qty: 1 11RF Rx Instructions: Use as directed to monitor for low blood sugar amlodipine 5 MG tablet 5 mg PO DAILY Patient Comments: take 1 tablet by mouth once daily Lokelma 10 gram powder in packet 10 g PO DAILY Qty: 30 2RF thiamine mononitrate (vit B1) 100 mg tablet 100 mg PO DAILY cholecalciferol (vitamin D3) [Vitamin D3] 25 mcg (1,000 unit) capsule 25 mcg PO DAILY levothyroxine 25 mcg tablet 25 mcg PO DAILY sodium chloride 1,000 mg tablet,soluble 1,000 mg PO BID Patient Comments: take 1 tablet by mouth twice a day magnesium oxide 400 mg magnesium tablet 400 mg PO BID (DME) FreeStyle Beba 2 Plus Sensor Device See Rx Instructions .ROUTE Rx Instructions: As directed Discontinued carvedilol 3.125 mg tablet 3.125 mg PO DAILY PM Diet: Regular Interventions: Belongings Inventory Last Done: 03/02/25 10:06 Health Concerns: Unfortunately you are a patient that has been having a low blood glucose, low body temperature, and a low sodium off-and-on for several months now. No one has been able to figure out what is wrong with you and they have looked at you for adrenal gland problems, thyroid gland problems, stroke, infection, and they cannot find the answer. We had to use a machine that would warm you and elevate your body temperature. When you were first seen your body temperature was 29.8 celcius. Normal body temperature is 36.5. Your body temperature at discharge is 36.0. Your heart rate has continued to be low. Your heart rate is in the 40s. You blood pressure is normal with this. Do not take any Coreg or carvedilol ever again. With this hospital stay, you are working very closely with your primary care provider, Wendy Petit, and she has sent you to see a kidney specialist. You have renal tubular acidosis and thus why your potassium is high. You need to make sure you take your Lokelma. Your says that he is picking some up at the pharmacy today. She has sent you to a neurologist for evaluation of your brain function, especially after your heart stopped in October, and you have an appointment March 23. She has sent a referral to the [facility] endocrine division to find out why you have a low blood glucose. Your has been trying to get through and there has been no answer at [phone]. So I called the number and they have referred you to the endocrinology diabetic clinic at [facility]. They are the clinic that handles low blood sugars. I have sent them a copy of your admission note here. I also sent them your information with [employer] insurance and your phone numbers. That clinic should be calling you in the next few days to make an appointment. I asked them to make an urgent appointment. The new clinic phone number is [phone]. Instructions for you at home: 1. See your primary care provider in the next week for a blood pressure check and a pulse check 2. Stop Coreg and get rid of that medicine. that is the only change I made on your medicines. 3. Respond to the phone call from [facility] endocrinology clinic and make that appointment. They will call you. 4. Keep your neurology appointment in February 5. Keep on seeing the nephrology attending for your 's potassium. Even though you may not like that doctor, it is important that you keep on seeing him. 6. You and I spoke about your need for help. You keep on saying that you do not need any help and you do not want to ask your kids. I told her that you are making a mistake and you need to ask your kids for help. Print Language: Indonesian Patient Instructions: Hyperkalemia Dc Follow-up Care: WENDY PETIT ARNP [Physician No Access] -
[2025-03-03] MEDS: GADOTERATE MEGLUMINE 7.5 MMOL/15 ML VIAL IVP ONE (18:35)
[2025-03-03 20:51] VITALS: BP 124/78; TEMP 96.6; O2SAT 98
--- NOTE | 2025-03-04 08:35 | MRI Report ---
PROCEDURE: MRI Abdomen W/WO INDICATIONS: hypoglycemia CONTRAST: 8.4ml Clariscan TECHNIQUE: Multisequence, multiplanar MRI of the abdomen was performed, with and without intravenous contrast. COMPARISON: 02/07/2025 FINDINGS: Image quality: Motion degraded Lower chest: Right hemidiaphragm elevation. Scattered atelectasis is suspected in the lower lungs. No pleural effusions. Liver: Noncirrhotic liver contour. Indeterminate small lesion with high T2 signal (18/14) measuring 1 .7 cm in the right lobe, without suspicious imaging features on post contrast sequences. Gallbladder and biliary system: Unremarkable, nondilated. CBD measures about 6 mm. No definite obstru cting mass or stone. Pancreas: Significant atrophy of the pancreatic parenchyma, no hypervascular lesion identified. No si gnificant ductal dilation. Spleen: Nonenlarged Adrenals: No discrete nodules Kidneys: No hydronephrosis. No solid mass. Vessels and lymph nodes: No pathologic lymph nodes by size criteria. No abdominal aortic aneurysm. Th e main portal vein is patent. Bowel and peritoneum: No small bowel obstruction. Colectomy and right lower quadrant ileostomy, parti ally seen. Distal ileal wall thickening and inflammatory changes are slightly decreased. Significantly distended stomach. No drainable ascites. Body wall: Unremarkable Bones: No aggressive appearing osseous abnormality. IMPRESSION: Significant pancreatic parenchymal atrophy. No focal hypervascular lesion. No ductal dilation. CBD measures about 6 mm, upper limit of normal. No obstructing mass or stone identified on MRI. Colectomy and right lower quadrant ileostomy partially seen. Distal ileal inflammatory changes are sl ightly decreased from prior CT. Stomach is significantly distended. Indeterminate small right lobe liver lesion is present seen only on T2-weighted images, without postc ontrast correlate. This is felt to be a low suspicion finding, however follow-up could be pursued if there is a clinical history of liver disease or other malignancy. Other incidental findings above. Motion degraded MRI. Reviewed by: Beni Beverly MD on 03/04/2025 8:34 AM PDT Approved by: Beni Beverly MD on 03/04/2025 8:34 AM PDT Station ID: [id number]
== END 2025-03-03 21:17 | disposition home or self-care (01) ==
LOC: MS2 01:02 → ED 01:02 → MS2 09:33
PROVIDERS: ADMIT Specialist; ATTEND Specialist
DX: E87.5 Hyperkalemia; E86.0 Dehydration; D70.9 Neutropenia, unspecified; I48.91 Unspecified atrial fibrillation; I10 Essential (primary) hypertension; E16.2 Hypoglycemia, unspecified; K50.90 Crohn's disease, unspecified, without complications; R00.1 Bradycardia, unspecified; Z79.620 Long term (current) use of immunosuppressive biologic; Z90.49 Acquired absence of other specified parts of digestive tract; R41.82 Altered mental status, unspecified; N25.89 Other disorders resulting from impaired renal tubular function; T68.XXXA Hypothermia, initial encounter

== ENCOUNTER 2025-08-14 02:52 | Inpatient (IN) ==
--- OUTSIDE RECORDS SUMMARY | 2025-08-14 03:20 | EXTERNAL MEDICAL SUMMARY RPT | Continuity of Care Document ---
Author Organization [place] Address [address] [place] [id number] Phone Problems date description facility 2025-05-21 13:54 [facility]idi[facility]25-[facility] 13:54 Hypoglycemia, unspecified [facility] 2025-05-21 13:54 Major depressive dis order, recurrent severe without psychotic features [facility] 2025-05-21 13:54 Other chronic postprocedural pa in [facility] 2025-05-21 13:54 Pneumonia, unspecified organism [facility] 2025-05-21 13:54 Functional dyspepsia [facility] 2025-05-21 13:54 Parastomal hernia without obstr uction or gangrene [facility] 2025-05-21 13:54 Bradycardia, unspecified [facility] 2025-05-21 13:54 Cough, unspecified [facility] 2025-05-21 13:54 Encounter for palliative care [facility] 2025-05-28 08:57 Encounter for palliative care [facility] 2025-05-28 14:01 Sepsis due to Methic illin susceptible Staphylococcus aureus [facility] 2025-05-28 14:01 Sepsis, unspecified [facility] 2025-05-28 14:01 Type 2 diabetes abimbola itus with hypoglycemia without coma [facility] 2025-05-28 14:01 Hypoglycemia, unspecified [facility] 2025-05-28 14:01 Hypomagnesemia [facility] 2025-05-28 14:01 Hypo-osmolality and hyponatremi a [facility] 2025-05-28 14:01 Hyperkalemia [facility] 2025-05-28 14:01 Encephalopathy, unspecified [facility] 2025-05-28 14:01 Essential (primary) hypertensio n [facility] 2025-05-28 14:01 Pneumonia, unspecified organism [facility] 2025-05-28 14:01 Functional dyspepsia [facility] 2025-05-28 14:01 Parastomal hernia without obstr uction or gangrene [facility] 2025-05-28 14:01 Crohn's disease, unspecified, w ithout complications [facility] 2025-05-28 14:01 Crohn's disease, uns pecified, with unspecified complications [facility] 2025-05-28 14:01 Ulcerative colitis, unspecified, without complications [facility] 2025-05-28 14:01 Intestinal malabsorption, unspe cified [facility] 2025-05-28 14:01 Cellulitis of right lower limb [facility] 2025-05-28 14:01 Cellulitis of unspecified part of limb [facility] 2025-05-28 14:01 Other specified soft tissue dis orders [facility] 2025-05-28 14:01 Urinary tract infection, site n ot specified [facility] 2025-05-28 14:01 Dyspnea, unspecified [facility] 2025-05-28 14:01 Lower abdominal pain, unspecifi ed [facility] 2025-05-28 14:01 Left lower quadrant pain [facility] [facility] 2025-05-28 14:01 Generalized abdominal pain [facility] 2025-05-[address] [facility] 2025-05-28 14:01 Transient alteration of awarene ss [facility] 2025-05-28 14:01 Disorientation, unspecified i [facility] 2025-05-28 14:01 Altered mental status, unspecif ied [facility] 2025-05-28 14:01 Weakness [facility] 2025-05-28 14:01 Unspecified convulsions [facility] 2025-05-28 14:01 Shock, unspecified [facility] 2025-05-28 14:01 Severe sepsis with septic shock [facility] 2025-05-28 14:01 Abrasion of left index finger, initial encounter [facility] 2025-05-28 14:01 Encounter for attention to ileo stomy [facility] 2025-06-02 13:49 Encounter for attention to ileo stomy [facility] 2025-06-02 13:49 Encounter for palliative care [facility] 2025-06-02 15:22 Pneumonia, unspecified organism [facility] 2025-06-03 00:02 Pneumonia, unspecified organism [facility] 2025-06-03 15:31 Pneumonia, unspecified organism [facility] 2025-06-06 10:22 Unspecified abdominal pain [facility] 2025-06-06 10:37 Unspecified abdominal pain [facility] 2025-06-06 15:59 Acute cystitis without hematuri a [facility] 2025-06-09 10:47 Acute cystitis without hematuri a [facility] 2025-06-09 10:47 Nausea with vomiting, unspecifi ed [facility] 2025-06-10 10:41 Constipation, unspecified [facility] 2025-06-16 12:54 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 [facility] 2025-06-16 13:25 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 [facility] 2025-06-16 16:25 Other generalized ep ilepsy and epileptic syndromes, not [facility] 2025-06-16 16:26 Other generalized ep ilepsy and epileptic syndromes, not [facility] 2025-06-17 00:04 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 [facility] 2025-06-19 08:42 Sepsis due to Methic illin susceptible Staphylococcus aureus [facility] 2025-06-19 08:42 Sepsis, unspecified organism [facility] 2025-06-19 08:42 Type 2 diabetes abimbola itus with hypoglycemia without coma [facility]ated [facility] 2025-06-19 08:42 Hypoglycemia, unspecified [facility] 2025-06-19 08:42 Hypomagnesemia [facility] 2025-06-19 08:42 Hypo-osmolality and hyponatremi a [facility] 2025-06-19 08:42 Hyperkalemia [facility] 2025-06-19 08:42 Alcohol dependence with withdra wal, unspecified [facility] 2025-06-19 08:42 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) [facility] 2025-06-19 08:42 Major depressive dis order, recurrent severe without psychotic features [facility] 2025-06-19 08:42 Panic disorder [episodic paroxy smal anxiety] [facility] 2025-06-19 08:42 Adjustment disorder with depres sed mood [facility] 2025-06-19 08:42 Other chronic postprocedural pa in [facility] 2025-06-19 08:42 Encephalopathy, unspecified [facility] 2025-06-19 08:42 Essential (primary) hypertensio n [facility] 2025-06-19 08:42 Pneumonia, unspecified organism [facility] 2025-06-19 08:42 Functional dyspepsia [facility] 2025-06-19 08:42 Parastomal hernia without obstr uction or gangrene [facility] 2025-06-19 08:42 Crohn's disease, unspecified, w ithout complications [facility] 2025-06-19 08:42 Crohn's disease, uns pecified, with unspecified complications [facility] 2025-06-19 08:42 Ulcerative colitis, unspecified, without complications [facility] 2025-06-19 08:42 Constipation, unspecified [facility] 2025-06-19 08:42 Intestinal malabsorption, unspe cified [facility] 2025-06-19 08:42 Cellulitis of right lower limb [facility] 2025-06-19 08:42 Cellulitis of unspecified part of limb [facility] 2025-06-19 08:42 Other specified soft tissue dis orders [facility] 2025-06-19 08:42 Acute cystitis without hematuri a [facility] 2025-06-19 08:42 Urinary tract infection, site n ot specified [facility] 2025-06-19 08:42 Dyspnea, unspecified [facility] 2025-06-19 08:42 Lower abdominal pain, unspecifi ed [facility] 2025-06-19 08:42 Left lower quadrant pain [facility] 2025-06-19 08:42 Generalized abdominal pain [facility] 2025-06-19 08:42 Nausea [facility] 2025-06-19 08:42 Nausea with vomiting, unspecifi ed [facility] 2025-06-19 08:42 Transient alteration of awarene ss [facility] 2025-06-19 08:42 Disorientation, unspecified i [facility] 2025-06-19 08:42 Altered mental status, unspecif ied [facility] 2025-06-19 08:42 Weakness [facility] 2025-06-19 08:42 Unspecified convulsions [facility] 2025-06-19 08:42 Shock, unspecified [facility] 2025-06-19 08:42 Severe sepsis with septic shock [facility] 2025-06-19 08:42 Abrasion of left index finger, initial encounter [facility] 2025-06-20 12:35 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 [facility] 2025-06-20 14:30 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 [facility] 2025-06-21 00:04 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 [facility] 2025-06-24 09:57 Hypoglycemia, unspecified [facility] 2025-06-24 09:57 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) [facility] 2025-06-24 09:57 Major depressive dis order, recurrent severe without psychotic features [facility] 2025-06-24 09:57 Panic disorder [episodic paroxy smal anxiety] [facility] 2025-06-24 09:57 Adjustment disorder with depres sed mood [facility] 2025-06-24 09:57 Other chronic postprocedural pa in [facility] 2025-06-24 09:57 Functional dyspepsia [facility] 2025-06-24 09:57 Parastomal hernia without obstr uction or gangrene [facility] 2025-06-24 09:57 Encounter for palliative care [facility] 2025-06-24 14:50 Hypoglycemia, unspecified [facility] 2025-06-24 14:50 Hypo-osmolality and hyponatremi a [facility] 2025-06-24 14:50 Encephalopathy, unspecified [facility] 2025-06-24 14:50 Ulcerative colitis, unspecified, without complications [facility] 2025-06-24 14:50 Disorientation, unspecified [facility] 2025-06-24 14:51 Hypoglycemia, unspecified [facility] 2025-06-24 14:51 Hypo-osmolality and hyponatremi a [facility] 2025-06-24 14:51 Encephalopathy, unspecified [facility] 2025-06-24 14:51 Ulcerative colitis, unspecified, without complications [facility] 2025-06-24 14:51 Disorientation, unspecified [facility] 2025-06-24 14:52 Hypoglycemia, unspecified [facility] 2025-06-24 14:52 Hypo-osmolality and hyponatremi a [facility] 2025-06-24 14:52 Encephalopathy, unspecified [facility] 2025-06-24 14:52 Ulcerative colitis, unspecified, without complications [facility] 2025-06-24 14:52 Disorientation, unspecified [facility] 2025-06-24 14:53 Hypoglycemia, unspecified [facility] 2025-06-24 14:53 Hypo-osmolality and hyponatremi a [facility] 2025-06-24 14:53 Encephalopathy, unspecified [facility] 2025-06-24 14:53 Ulcerative colitis, unspecified, without complications [facility] 2025-06-24 14:53 Disorientation, unspecified [facility] 2025-06-24 14:54 Hypoglycemia, unspecified [facility] 2025-06-24 14:54 Hypo-osmolality and hyponatremi a [facility] 2025-06-24 14:54 Encephalopathy, unspecified [facility] 2025-06-24 14:54 Ulcerative colitis, unspecified, without complications [facility] 2025-06-24 14:54 Disorientation, unspecified [facility] 2025-06-24 14:56 Hypoglycemia, unspecified [facility] 2025-06-24 14:56 Hypo-osmolality and hyponatremi a [facility] 2025-06-24 14:56 Encephalopathy, unspecified [facility] 2025-06-24 14:56 Ulcerative colitis, unspecified, without complications [facility] 2025-06-24 14:56 Disorientation, unspecified [facility] 2025-06-27 11:58 Decreased white blood cell coun t, unspecified [facility] 2025-06-27 11:58 Hypoglycemia, unspecified [facility] 2025-06-27 11:58 Hyperkalemia [facility] 2025-06-27 11:58 Bradycardia, unspecified [facility] 2025-06-27 11:58 Elevated blood-press ure reading, without diagnosis of hypertension [facility] 2025-06-27 11:58 Altered mental status, unspecif ied [facility] 2025-06-27 11:58 Hypothermia, initial encounter [facility] 2025-06-27 13:30 Sepsis, unspecified organism [facility] 2025-06-27 13:30 Hypoglycemia, unspecified [facility] 2025-06-27 13:30 Hypo-osmolality and hyponatremi a [facility] 2025-06-27 13:30 Hyperkalemia [facility] 2025-06-27 13:30 Essential (primary) hypertensio n [facility] 2025-06-27 13:30 Cellulitis of right lower limb [facility] 2025-06-27 13:30 Other specified soft tissue dis orders [facility] 2025-06-27 13:30 Lower abdominal pain, unspecifi ed [facility] 2025-06-27 13:30 Generalized abdominal pain [facility] 2025-06-27 13:30 Nausea [facility] 2025-06-27 13:48 Hypoglycemia, unspecified [facility] 2025-06-27 13:48 Essential (primary) hypertensio n [facility] 2025-06-27 13:48 Disorientation, unspecified [facility] 2025-06-27 13:53 Hypoglycemia, unspecified [facility] 2025-06-27 13:53 Essential (primary) hypertensio n [facility] 2025-06-27 13:53 Disorientation, unspecified [facility] 2025-06-27 13:54 Hypoglycemia, unspecified [facility] 2025-06-27 13:54 Essential (primary) hypertensio n [facility] 2025-06-27 13:54 Disorientation, unspecified [facility] 2025-06-27 13:55 Hypoglycemia, unspecified [facility] 2025-06-27 13:55 Essential (primary) hypertensio n [facility] 2025-06-27 13:55 Disorientation, unspecified [facility] 2025-07-03 11:12 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 [facility] 2025-07-04 10:08 Hypoglycemia, unspecified [facility] 2025-07-04 10:08 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) [facility] 2025-07-04 10:08 Major depressive dis order, recurrent severe without psychotic features [facility] 2025-07-04 10:08 Panic disorder [episodic paroxy smal anxiety] [facility] 2025-07-04 10:08 Adjustment disorder with depres sed mood [facility] 2025-07-04 10:08 Other chronic postprocedural pa in [facility] 2025-07-04 10:08 Functional dyspepsia [facility] 2025-07-04 10:08 Parastomal hernia without obstr uction or gangrene [facility] 2025-07-04 10:09 Encounter for palliative care [facility] 2025-07-15 16:14 Other generalized ep ilepsy and epileptic syndromes, [facility] 2025-07-18 12:27 Encounter for attention to ileo stomy [facility] 2025-07-18 12:27 Encounter for palliative care [facility] 2025-07-21 14:14 Hypoglycemia, unspecified [facility] 2025-07-21 14:14 Hyperkalemia [facility] 2025-07-21 14:14 Major depressive dis order, recurrent severe without psychotic features [facility] 2025-07-21 14:14 Other chronic postprocedural pa in [facility] 2025-07-21 14:[address] [facility] 2025-07-21 14:14 Parastomal hernia without obstr uction or gangrene [facility] 2025-07-21 14:14 Weakness [facility] 2025-07-21 14:14 Encounter for palliative care [facility] 2025-07-22 13:12 Encounter for attention to ileo stomy [facility] 2025-07-22 13:12 Encounter for palliative care [facility] 2025-07-22 14:27 Encounter for attention to ileo stomy [facility] 2025-07-22 14:27 Encounter for palliative care [facility] 2025-07-22 15:21 Encounter for attention to ileo stomy [facility] 2025-07-22 15:21 Encounter for palliative care [facility] 2025-07-23 10:22 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 [facility] 2025-07-23 13:28 Encephalopathy, unspecified [facility] 2025-07-23 13:28 Essential (primary) hypertensio n [facility] 2025-07-23 13:28 Crohn's disease, unspecified, w ithout complications [facility] 2025-07-23 13:28 Ulcerative colitis, unspecified, without complications [facility] 2025-07-23 13:28 Intestinal malabsorption, unspe cified [facility] 2025-07-23 13:28 Disorientation, unspecified [facility] 2025-07-23 13:28 Shock, unspecified [facility] 2025-07-23 14:25 En[facility] for palliative care [facility] 2025-07-23 14:26 Hypoglycemia, unspecified [facility] 2025-07-23 14:26 Hypo-osmolality and hyponatremi a [facility] 2025-07-23 14:26 Hyperkalemia [facility] 2025-07-23 14:26 Depression, unspecified [facility] 2025-07-23 14:26 Major depressive disorder, recu rrent, moderate [facility] 2025-07-23 14:26 Adjustment insomnia [facility] 2025-07-23 14:26 Essential (primary) hypertensio n [facility] 2025-07-23 14:26 Other specified soft tissue dis orders [facility] 2025-07-23 14:27 Hypoglycemia, unspecified [facility] 2025-07-23 14:27 Hypo-osmolality and hyponatremi a [employer] 2025-07-23 14:27 Hyperkalemia [facility] 2025-07-23 14:27 Major depressive disorder, recu rrent, moderate [facility] 2025-07-23 14:27 Other chronic postprocedural pa in [employer] 2025-07-23 14:27 Essential (primary) hypertensio n [facility] 2025-07-23 14:27 Other specified soft tissue dis orders [facility] 2025-07-23 14:27 Hypothermia, subsequent encount er [facility] 2025-07-23 14:27 Encounter for palliative care [facility] 2025-07-23 14:29 Encounter for palliative care [facility] 2025-07-24 11:01 Hypoglycemia, unspecified [facility] 2025-07-24 11:01 Hyperkalemia [facility] 2025-07-24 11:01 Encephalopathy, unspecified i [facility] 2025-07-24 11:01 Essential (primary) hypertensio n [facility] 2025-07-24 11:01 Crohn's disease, unspecified, w ithout complications [facility] 2025-07-24 11:01 Ulcerative colitis, unspecified, without complications [facility] 2025-07-24 11:01 Intestinal malabsorption, unspe cified [facility] 2025-07-24 11:01 Unspecified abdominal pain [facility] 2025-07-24 11:01 Disorientation, unspecified i [facility] 2025-07-24 11:01 Altered mental status, unspecif ied [facility] 2025-07-24 11:01 Weakness [facility] 2025-07-24 11:01 Shock, unspecified [facility] 2025-07-24 11:20 Sepsis, unspecified organism [facility] 2025-07-24 11:20 Hypoglycemia, unspecified [facility] 2025-07-24 11:20 Hyperkalemia [facility] 2025-07-24 11:20 Encephalopathy, unspecified i [facility] 2025-07-24 11:20 Essential (primary) hypertensio n [facility] 2025-07-24 11:20 Crohn's disease, unspecified, w ithout complications [facility] 2025-07-24 11:20 Ulcerative colitis, unspecified, without complications [facility] 2025-07-24 11:20 Intestinal malabsorption, unspe cified [facility] 2025-07-24 11:20 Unspecified abdominal pain [facility] 2025-07-24 11:20 Disorientation, unspecified [facility] 2025-07-24 11:20 Altered mental status, unspecif ied [facility] 2025-07-24 11:20 Weakness [facility] 2025-07-24 11:20 Shock, unspecified [facility] 2025-07-25 15:23 Hyperkalemia [facility] 2025-07-25 15:23 Cellulitis of unspecified part of limb [facility] 2025-07-25 15:30 Right lower quadrant pain [facility] 2025-07-30 10:29 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 [facility] 2025-07-30 10:30 [facility] 2025-08-01 08:28 Localized edema [facility] 2025-08-01 09:58 Venous insufficiency (chronic) (peripheral) Located Within [facility] 2025-08-01 09:58 [facility] 09:58 Encounter for palliative care [facility] 2025-08-01 10:06 Encounter for attention to ileo stomy [facility] 2025-08-01 10:06 Encounter for palliative care [facility] 2025-08-01 11:13 Hypoglycemia, unspecified [facility] 2025-08-01 11:13 Hypo-osmolality and hyponatremi a [facility] 2025-08-01 11:13 Hyperkalemia [facility] 2025-08-01 11:13 Major depressive disorder, recu rrent, moderate [facility] 2025-08-01 11:13 Other chronic postprocedural pa in [facility] 2025-08-01 11:13 Essential (primary) hypertensio n [facility] 2025-08-01 11:13 Other specified soft tissue dis orders [facility] 2025-08-01 11:13 Hypothermia, subsequent encount er [facility] 2025-08-01 11:13 Encounter for palliative care [facility] 2025-08-06 10:51 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 2025-08-13 09:47 Hyperkalemia [facility] 2025-08-13 09:47 Major depressive dis order, recurrent severe without psychotic features [facility] 2025-08-13 09:47 Other chronic postprocedural pa in [facility] 2025-08-13 09:47 Functional dyspepsia [facility] 2025-08-13 09:47 Parastomal hernia without obstr uction or gangrene [facility] 2025-08-13 09:47 Weakness [facility] 2025-08-13 09:47 Encounter for palliative care [facility] 2025-08-13 12:58 Hypoglycemia, unspecified [employer] 2025-08-13 12:58 Hyperkalemia [facility] 2025-08-13 12:58 Major depressive dis order, recurrent severe without psychotic features [facility] 2025-08-13 12:58 Other chronic postprocedural pa in [facility] 2025-08-13 12:58 Functional dyspepsia [facility] 2025-08-13 12:58 Parastomal hernia without obstr uction or gangrene [facility] 2025-08-13 12:58 Weakness [facility] 2025-08-13 12:58 Encounter for palliative care [facility] Results/Labs test date facility value unit notes Result panel 1 LIPASE 2025-06-06 11:23 [facility] < 10 u/l As of April 2023 testing method has changed, this may include reference ranges. NUCLEATED RED BLOOD CELLS AUTO 2025-06-06 11:23 [facility] 0.0 /100wbc (missing) BASOPHILS # (AUTO) 2025-06-06 11:23 [facility] 0.0 10 3/ul (missing) EOSINOPHILS # (AUTO) 2025-06-06 11:23 [facility] 0.0 10 3/ul (missing) NRBC ABSOLUTE COUNT (AUTO) 2025-06-06 11:23 [facility] 0.00 x10 3/ul (missing) MONOCYTES # (AUTO) 2025-06-06 11:23 [facility] 0.4 10 3/ul (missing) LYMPHOCYTES # (AUTO) 2025-06-06 11:23 [facility] 0.4 10 3/ul (missing) BILIRUBIN,TOTAL 2025-06-06 11:23 [facility] 0.4 mg/dl As of April 2023 testing method has changed, this may include reference ranges. CREATININE 2025-06-06 11:23 [facility] 0.7 mg/dl As of April 2023 testing method has changed, this may include reference ranges. ALBUMIN/GLOBULIN RATIO 2025-06-06 11:23 [facility] 1.2 (missin g) (missing) NEUTROPHILS # (AUTO) 2025-06-06 11:23 [facility] 1.8 10 3/ul (missing) CALCIUM 2025-06-06 11:23 [facility] 10.1 mg/dl As of April 2023 testing method has changed, this may include reference ranges. ALKALINE PHOSPHATASE 2025-06-06 11:23 [facility] 100 iu/l As of April 2023 testing method has changed, this may include reference ranges. CHLORIDE 2025-06-06 11:23 [facility] 100 mmol/l As of April 2023 testing method has changed, this may include reference ranges. HGB - HEMOGLOBIN 2025-06-06 11:23 [facility] 11.9 g/dl (missing) SODI[facility]-06[facility] 136 mmol/l (missing) RED CELL DISTRIBUTION WIDTH 2025-06-06 11:23 [facility] 14.7 % (missing) PLT - PLATELET COUNT 2025-06-06 11:23 [facility] 143 10 3/ul (missing) RBC MORPHOLOGY (MULTIPLE) 2025-06-06 11:23 [facility] 2+ HYPOCHROMASIA (missin g) (missing) RBC MORPHOLOGY (MULTIPLE) 2025-06-06 11:23 [facility] 2+ STOMATOCYTES (missin g) (missing) WHITE BLOOD COUNT 2025-06-06 11:23 [facility] 2.7 x10 3/ul (missing) AST ASPARTATE AMINOTRANSFERASE 2025-06-06 11:23 [facility] 20 iu/l As of April 2023 testing method has changed, this may include reference ranges. ALT ALANINE AMINOTRANSFERASE 2025-06-06 11:23 [facility] 21 iu/l As of April 2023 testing method has changed, this may include reference ranges. BUN - BLOOD UREA NITROGEN 2025-06-06 11:23 [facility] 21 mg/dl As of April 2023 testing method has changed, this may include reference ranges. GLOBULIN 2025-06-06 11:23 [facility] 3.5 g/dl (missing) RED BLOOD COUNT 2025-06-06 11:23 [facility] 3.76 10 6/ul (missing) POTASSIUM 2025-06-06 11:23 [facility] 3.8 mmol/l As of April 2023 testing method has changed, this may include reference ranges. CARBON DIOXIDE - CO2 2025-06-06 11:23 [employer] [facility] 30 mmol/l As of April 2023 testing method has changed, this may include reference ranges. MEAN CORPUSCULAR HEMOGLOBIN 2025-06-06 11:23 [facility] 31.6 pg (missing) MEAN CORPUSCULAR HGB CONC 2025-06-06 11:23 [facility] 32.5 g/dl (missing) HCT - HEMATOCRIT 2025-06-06 11:23 [facility] 36.6 % (missing) ALBUMIN 2025-06-06 11:23 [facility] 4.1 g/dl As of April 2023 testing method has changed, this may include reference ranges. ANION GAP 2025-06-06 11: [facility] 6.0 (missin g) (missing) TOTAL PROTEIN 2025-06-06 11: [facility] 7.6 g/dl As of April 2023 testing method has changed, this may include reference ranges. GFR - MDRD 2025-06-06 11: [facility] 84 (missin g) The IDMS-traceable MDRD Study Equation has been validated extensively in and populations between the ages of 18 and 70 with impaired kidney function (eGFR < 60 mL/min/1.73m2) and has shown good performance for patients with all common causes of kidney disease. Although this equation has not been validated for patients older than 70, an MDRD-derived eGFR may still be a useful tool for providers caring for patients older than 70. References: http://www.nkde p.nih.gov/lab-e valuation/gfr/c reatinine-stand ardization, last updated December 2011. MEAN PLATELET VOLUME 2025-06-06: [facility] 9.6 fl (missing) GLUCOSE 2025-06-06 11: [facility] 94 mg/dl As of April 2023 testing method has changed, this may include reference ranges. MEAN CORPUSCULAR VOLUME 2025-06-06 11: [facility] 97.3 fl (missing) SLIDE REVIEW? 2025-06-06 11:23 [facility] Indicated (missin g) (missing) PLATELET ESTIMATE, MANUAL 2025-06-06 11:23 [facility] NORMAL (130-450,000) (missin g) (missing) PLATELET MORPHOLOGY 2025-06-06 11:23 [facility] NORMAL APPEARANCE (missin g) (missing) Result panel 2 RBC,URINE 2025-06-06 12:25 [facility] 0-5 /hpf (missing) UROBILINOGEN,U RINE 2025-06-06 12:25 [facility] 0.2 (NORMAL) e.u./d l (missing) SPECIFIC GRAVITY,URINE 2025-06-06 12:25 [facility] 1.020 (cinthya ng) (missing) CUL, URINE 2025-06-06 12:25 [facility] 100>100,000 CFU/mL (cinthya ng) (missing) WBC,URINE 2025-06-06 12:25 [facility] 6-10 /hpf (missing) PH,URINE 2025-06-06 12:25 [facility] 6.0 ph (missing) CLARITY,URINE 2025-06-06 12:25 [facility] CLEAR (cinthya ng) (missing) CUL, URINE 2025-06-06 12:25 [facility] CNSIDCOAGULASE-NEGATIVE STAYPHYLOCOCCUS TO BE FURTHER ID'd (cinthya ng) (missing) SQUAMOUS EPITHELIAL CELL,UR 2025-06-06 12:25 [facility] FEW Squamous (cinthya ng) (missing) BACTERIA,URINE 2025-06-06 12:25 [facility] Few /hpf (missing) CUL, URINE 2025-06-06 12:25 [facility] IDMICID/LATA COM* (cinthya ng) (missing) UR CULTURE IF IND 2025-06-06 12:25 [facility] INDICATED (cinthya ng) (missing) URINE MICROSCOPIC INDICATED? 2025-06-06 12:25 [facility] INDICATED (cinthya ng) (missing) LEUKOCYTE ESTERASE, URINE 2025-06-06 12:25 [facility] MODERATE (cinthya ng) (missing) NITRITE,URINE 2025-06-06 12:25 [facility] NEGATIVE (cinthya ng) (missing) OCCULT BLOOD,URINE 2025-06-06 12:25 [facility] NEGATIVE (cinthya ng) (missing) BILIRUBIN,URIN E 2025-06-06 12:25 [facility] NEGATIVE (cinthya ng) Bilirubin can be influenced by color interference. Please correlate positive results with clinical presentation GLUCOSE, URINE (UA) 2025-06-06 12:25 [facility] NEGATIVE mg/dl (missing) KETONES,URINE (UA) 2025-06-06 [facility]) CUL, URINE 2025-06-06 12:25 [facility] ORG.1PRELIM ORG ID* (on license of [facility]) (missing) CUL, URINE 2025-06-06 12:25 [facility] SENSNISENSITIVITIES NOT INDICATED FOR THIS ISOLATE (on license of [facility]) (missing) O:STAEPI 2025-06-06 12:25 [facility] STAEPISTAPHYLOCOCCUS EPIDERMIDISSTAPHYLOCOCCUS EPIDERMIDIS (on license of [facility]) (missing) PROTEIN,URINE 2025-06-06 12:25 [facility] TRACE mg/dl (missing) CUL, URINE 2025-06-06 12:25 [facility] UCC.1ORG 1 CC* (on license of [facility]) (missing) CUL, URINE 2025-06-06 12[facility] (missing) COLOR,URINE 2025-06-06 12:25 [facility] YELLOW (on license of [facility]) URINE CLEAN CATCH Result panel 3 LIPASE 2025-06-08 11:53 [facility] < 10 u/l As of April 2023 testing method has changed, this may include reference ranges. NUCLEATED RED BLOOD CELLS AUTO 2025-06-08 11:53 [facility] 0.0 /100wbc (missing) BASOPHILS # (AUTO) 2025-06-08 11:53 [facility] 0.0 10 3/ul (missing) NRBC ABSOLUTE COUNT (AUTO) 2025-06-08 11:53 [facility] 0.00 x10 3/ul (missing) EOSINOPHILS # (AUTO) 2025-06-08 11:53 [facility] 0.1 10 3/ul (missing) MONOCYTES # (AUTO) 2025-06-08 11:53 [facility] 0.4 10 3/ul (missing) LYMPHOCYTES # (AUTO) 2025-06-08 11:53 [facility] 0.4 10 3/ul (missing) BILIRUBIN,TOTAL 2025-06-08 11:53 [facility] 0.5 mg /dl As of April 2023 testing method has changed, this may include reference ranges. CREATININE 2025-06-08 11:53 [facility] 0.8 mg/dl As of April 2023 testing method has changed, this may include reference ranges. ALBUMIN/GLOBULIN RATIO 2025-06-08 11:53 [facility] 1.1 (missing) (missing) CALCIUM 2025-06-08 11:53 [facility] 10.1 mg/dl As of April 2023 testing method has changed, this may include reference ranges. HGB - HEMOGLOBIN 2025-06-08 11:53 [facility] 10.8 g /dl (missing) SODIUM 2025-06-08 11:53 [facility] 135 mmol/l (missing) RED CELL DISTRIBUTION WIDTH 2025-06-08 11:53 [facility] 14.7 % (missing) BUN - BLOOD UREA NITROGEN 2025-06-08 11:53 [facility] 15 mg/dl As of Apr testing method has changed, this may include reference ranges. PLT - PLATELET COUNT 2025-06-08 11:53 [facility] 165 10 3/ul (missing) ALT ALANINE AMINOTRANSFERASE 2025-06-08 11:53 [facility] 19 iu/l As of April 2023 testing method has changed, this may include reference ranges. NEUTROPHILS # (AUTO) 2025-06-08 11:53 [facility] 2.2 10 3/ul (missing) AST ASPARTATE AMINOTRANSFERASE 2025-06-08 11:53 [facility] 20 iu/l As of April 2023 testing method has changed, this may include reference ranges. WHITE BLOOD COUNT 2025-06-08 11:53 [facility] 3.0 x10 3/ul (missing) GLOBULIN 2025-06-08 11:53 [facility] 3.4 g/dl (missing) RED BLOOD COUNT 2025-06-08 11:53 [facility] 3.48 10 6/ul (missing) POTASSIUM 2025-06-08 11:53 [facility] 3.7 mmol/l As of April 2023 testing method has changed, this may include reference ranges. ALBUMIN 2025-06-08 11:53 [facility] 3.9 g/dl As of April 2023 testing method has changed, this may include reference ranges. MEAN CORPUSCULAR HEMOGLOBIN 2025-06-08 11:53 [facility] 31.0 pg (missing) MEAN CORPUSCULAR HGB CONC 2025-06-08 11:53 [facility] 31.8 g/dl (missing) CARBON DIOXIDE - CO2 2025-06-08 11:53 [facility] 33 mmol/l As of April 2023 testing method has changed, this may include reference ranges. HCT - HEMATOCRIT 2025-06-08 11:53 [facility] 34.0 % (missing) ANION GAP 2025-06-08 11:53 [facility] 6.0 (missing ) (missing) TOTAL PROTEIN 2025-06-08 11:53 [facility] 7.3 g/dl As of April 2023 testing method has changed, this may include reference ranges. GFR - MDRD 2025-06-08 11:53 [facility] 72 (missin g) The IDMS-traceable MDRD Study Equation has been validated extensively in and populations between the ages of 18 and 70 with impaired kidney function (eGFR < 60 mL/min/1.73m2) and has shown good performance for patients with all common causes of kidney disease. Although this equation has not been validated for patients older than 70, an MDRD-derived eGFR may still be a useful tool for providers caring for patients older than 70. References: http://www.nkdep. nih.gov/lab-evalu ation/gfr/creatin ine-stand ardization, last updated December 2011. ALKALINE PHOSPHATASE 2025-06-08 11:53 [facility] 83 iu/l As of April 2023 testing method has changed, this may include reference ranges. MEAN PLATELET VOLUME 2025-06-08 11:53 [facility] 9.9 fl (missing) GLUCOSE 2025-06-08 11:53 [facility] 90 mg/dl As of April 2023 testing method has changed, this may include reference ranges. CHLORIDE 2025-06-08 11:53 [facility] 96 mmol/l As of April 2023 testing method has changed, this may include reference ranges. MEAN CORPUSCULAR VOLUME 2025-06-08 11:53 [facility] 97.7 fl (missing) Result panel 4 UROBILINOGEN,URINE 2025-06-08 13:15 [facility] 0.2 (NORMAL) e.u./dl (missing) SPECIFIC GRAVITY,URINE 2025-06-08 13:15 [facility] 1.010 (missing) (missing) KETONES,URINE (UA) 2025-06-08 13:15 [facility] 15 mg/dl (missing) WBC,URINE 2025-06-08 13:15 [facility] 4-5 /hpf (missing) PH,URINE 2025-06-08 13:15 [facility] 6.0 ph (missing) CLARITY,URINE 2025-06-08 13:15 [facility] CLEAR (missing) (missing) UR CULTURE IF IND 2025-06-08:15 [facility] INDICATED (missing) (missing) URINE MICROSCOPIC INDICATED? 2025-06-08 13:15 [facility] INDICATED (missing) (missing) LEUKOCYTE ESTERASE, URINE 2025-06-08 13:15 [facility] MODERATE (missing) (missing) NITRITE,URINE 2025-06-08 13:15 [facility] NEGATIVE (missing) (missing) OCCULT BLOOD,URINE 2025-06-08 13:15 [facility] NEGATIVE (missing) (missing) BILIRUBIN,URINE 2025-06-08 13:15 [facility] NEGATIVE (missing) Bilirubin can be influenced by color interference. Please correlate positive results with clinical presentation GLUCOSE, URINE (UA) 2025-06-08 13:15 [facility] NEGATIVE mg/dl (missing) PROTEIN,URINE 2025-06-08 13:15 [facility] NEGATIVE mg/dl (missing) BACTERIA,URINE 2025-06-08 13:15 [facility] None Seen /hpf (missing) RBC,URINE 2025-06-08 13:15 [facility] None Seen /hpf (missing) CUL, URINE 2025-06-08 13:15 [facility] [id number] COLONIES/ML Polymicrobial growth including (missing) (missing) CUL, URINE 2025-06-08 13:15 [facility] [id number] on. (missing) (missing) CUL, URINE 2025-06-08 13:15 [facility] [id number] pathogens. This is suggestive of skin or other (missing) (missing) WBC CLUMPS,URINE 2025-06-08 13:15 [facility] PRESENT (missing) (missing) SQUAMOUS EPITHELIAL CELL,UR 2025-06-08 13:15 [facility] RARE Squamous (missing) (missing) COLOR,URINE 2025-06-08 13:15 [facility] YELLOW (missing) URINE CLEAN CATCH Result panel 5 BILIRUBIN,TOTAL 2025-06-16 13:12 [facility] 0.2 mg/dl As of April 2023 testing method has changed, this may include reference ranges. CREATININE 2025-06-16 13:12 [facility] 0.6 mg/dl As of April 2023 testing method has changed, this may include reference ranges. ALBUMIN/GLOBULIN RATIO 2025-06-16 13:12 [facility] 1.1 (missing) (missing) CALCIUM 2025-06-16 13:12 [facility] 10.1 mg/dl As of April 2023 testing method has changed, this may include reference ranges. GFR - MDRD 2025-06-16 13:12 [facility] 100 (missing) The IDMS-traceable MDRD Study Equation has been validated extensively in and populations between the ages of 18 and 70 with impaired kidney function (eGFR < 60 mL/min/1.73m2) and has shown good performance for patients with all common causes of kidney disease. Although this equation has not been validated for patients older than 70, an MDRD-derived eGFR may still be a useful tool for providers caring for patients older than 70. References: http://www.nkdep. nih.gov/lab-evalu ation/gfr/creatin ine-stand ardization, last updated December 2011. CHLORIDE 2025-06-16 13:12 [facility] 104 mmol/l As of April 2023 testing method has changed, this may include reference ranges. SODIUM 2025-06-16 13:12 [employer] 136 mmol/l Unknown ALT ALANINE AMINOTRANSFERASE 2025-06-16 13:12 [facility] 17 iu/l As of April 2023 testing method has changed, this may include reference ranges. AST ASPARTATE AMINOTRANSFERASE 2025-06-16 13:12 [facility] 18 iu/l As of April 2023 testing method has changed, this may include reference ranges. BUN - BLOOD UREA NITROGEN 2025-06-16 13:12 [facility] 18 mg/dl As of April 2023 testing method has changed, this may include reference ranges. CARBON DIOXIDE - CO2 2025-06-16 13:12 [facility] 27 mmol/l As of April 2023 testing method has changed, this may include reference ranges. GLOBULIN 2025-06-16 13:12 [facility] 3.6 g/dl (missing) ALBUMIN 2025-06-16 13:12 [facility] 4.1 g/dl As of April 2023 testing method has changed, this may include reference ranges. POTASSIUM 2025-06-16 13:12 [facility] 4.5 mmol/l As of April 2023 testing method has changed, this may include reference ranges. ANION GAP 2025-06-16 13:12 [facility] 5.0 (missing) (missing) TOTAL PROTEIN 2025-06-16 13:12 [facility] 7.7 g/dl As of April 2023 testing method has changed, this may include reference ranges. GLUCOSE 2025-06-16 13:12 [facility] 76 mg/dl As of April 2023 testing method has changed, this may include reference ranges. ALKALINE PHOSPHATASE 2025-06-16 13:12 [facility] 84 iu/l As of April 2023 testing method has changed, this may include reference ranges. Result panel 6 BILIRUBIN,TOTAL 2025-06-20 12:51 [facility] 0.3 mg/dl As of April 2023 testing method has changed, this may include reference ranges. CREATININE 2025-06-20 12:51 [facility] 0.5 mg/dl As of April 2023 testing method has changed, this may include reference ranges. ALBUMIN/GLOBULIN RATIO 2025-06-20 12:51 [facility] 1.2 (missing) (missing) CALCIUM 2025-06-20 12:51 [facility] 10.0 mg/dl As of April 2023 testing method has changed, this may include reference ranges. CHLORIDE 2025-06-20 12:51 [facility] 100 mmol/l As of April 2023 testing method has changed, this may include reference ranges. GFR - MDRD 2025-06-20 12:51 [facility] 124 (missing) The IDMS-traceable MDRD Study Equation has been validated extensively in and populations between the ages of 18 and 70 with impaired kidney function (eGFR < 60 mL/min/1.73m2) and has shown good performance for patients with all common causes of kidney disease. Although this equation has not been validated for patients older than 70, an MDRD-derived eGFR may still be a useful tool for providers caring for patients older than 70. References: http://www.nkdep. nih.gov/lab-evalu ation/gfr/creatin ine-stand ardization, last updated December 2011. SODIUM 2025-06-20 12:51 [facility] 130 mmol/l Unknown ALT ALANINE AMINOTRANSFERASE 2025-06-20 12:51 [facility] 21 iu/l As of April 2023 testing method has changed, this may include reference ranges. AST ASPARTATE AMINOTRANSFERASE 2025-06-20 12:51 [facility] 23 iu/l As of April 2023 testing method has changed, this may include reference ranges. CARBON DIOXIDE - CO2 2025-06-20 12:51 [facility] 25 mmol/l As of April 2023 testing method has changed, this may include reference ranges. BUN - BLOOD UREA NITROGEN 2025-06-20 12:51 [facility] 26 mg/dl As of April 2023 testing method has changed, this may include reference ranges. GLOBULIN 2025-06-20 12:51 [facility] 3.4 g/dl (missing) ALBUMIN 2025-06-20 12:51 [facility] 4.1 g/dl As of April 2023 testing method has changed, this may include reference ranges. ANION GAP 2025-06-20 12:51 [facility] 5.0 (missing) (missing) POTASSIUM 2025-06-20 12:51 [facility] 5.3 mmol/l As of April 2023 testing method has changed, this may include reference ranges. GLUCOSE 2025-06-20 12:51 [facility] 66 mg/dl As of April 2023 testing method has changed, this may include reference ranges. TOTAL PROTEIN 2025-06-20 12:51 [facility] 7.5 g/dl As of April 2023 testing method has changed, this may include reference ranges. ALKALINE PHOSPHATASE 2025-06-20 12:51 [facility] 83 iu/l As of April 2023 testing method has changed, this may include reference ranges. Result panel 7 BILIRUBIN,TOTAL 2025-07-01 10:55 [facility] 0.3 mg/dl As of April 2023 testing method has changed, this may include reference ranges. CREATININE 2025-07-01 10:55 [facility] 0.6 mg/dl As of April 2023 testing method has changed, this may include reference ranges. ALBUMIN/GLOBULIN RATIO 2025-07-01 10:55 [facility] 1.2 (missing) (missing) CALCIUM 2025-07-01 10:55 [facility] 10.0 mg/dl As of April 2023 testing method has changed, this may include reference ranges. GFR - MDRD 2025-07-01 10:55 [facility] 100 (missing) The IDMS-traceable MDRD Study Equation has been validated extensively in and populations between the ages of 18 and 70 with impaired kidney function (eGFR < 60 mL/min/1.73m2) and has shown good performance for patients with all common causes of kidney disease. Although this equation has not been validated for patients older than 70, an MDRD-derived eGFR may still be a useful tool for providers caring for patients older than 70. References: http://www.nkdep. nih.gov/lab-evalu ation/gfr/creatin ine-stand ardization, last updated December 2011. CHLORIDE 2025-07-01 10:55 [facility] 105 mmol/l As of April 2023 testing method has changed, this may include reference ranges. SODIUM 2025-07-01 10:55 [facility] 136 mmol/l Unknown BUN - BLOOD UREA NITROGEN 2025-07-01 10:55 [facility] 22 mg/dl As of April 2023 testing method has changed, this may include reference ranges. CARBON DIOXIDE - CO2 2025-07-01 10:55 [facility] 28 mmol/l As of April 2023 testing method has changed, this may include reference ranges. ANION GAP 2025-07-01 10:55 [facility] 3.0 (missing) (missing) GLOBULIN 2025-07-01 10:55 [facility] 3.5 g/dl (missing) AST ASPARTATE AMINOTRANSFERASE 2025-07-01 10:55 [facility] 31 iu/l As of April 2023 testing method has changed, this may include reference ranges. ALBUMIN 2025-07-01 10:55 [facility] 4.1 g/dl As of April 2023 testing method has changed, this may include reference ranges. POTASSIUM 2025-07-01 10:55 [facility] 4.8 mmol/l As of April 2023 testing method has changed, this may include reference ranges. ALT ALANINE AMINOTRANSFERASE 2025-07-01 10:55 [facility] 44 iu/l As of April 2023 testing method has changed, this may include reference ranges. TOTAL PROTEIN 2025-07-01 10:55 [facility] 7.6 g/dl As of April 2023 testing method has changed, this may include reference ranges. GLUCOSE 2025-07-01 10:55 [facility] 76 mg/dl As of April 2023 testing method has changed, this may include reference ranges. ALKALINE PHOSPHATASE 2025-07-01 10:55 [facility] 84 iu/l As of April 2023 testing method has changed, this may include reference ranges. Result panel 8 BILIRUBIN,TOTAL 2025-07-22 13:32 [facility] 0.3 mg/dl As of April 2023 testing method has changed, this may include reference ranges. CREATININE 2025-07-22 13:32 [facility] 0.6 mg/dl As of April 2023 testing method has changed, this may include reference ranges. ALBUMIN/GLOBULIN RATIO 2025-07-22 13:32 [facility] 1.2 (missing) (missing) CALCIUM 2025-07-22 13:32 [facility] 10.4 mg/dl As of April 2023 testing method has changed, this may include reference ranges. GFR - MDRD 2025-07-22 13:32 [facility] 100 (missing) The IDMS-traceable MDRD Study Equation has been validated extensively in and populations between the ages of 18 and 70 with impaired kidney function (eGFR < 60 mL/min/1.73m2) and has shown good performance for patients with all common causes of kidney disease. Although this equation has not been validated for patients older than 70, an MDRD-derived eGFR may still be a useful tool for providers caring for patients older than 70. References: http://www.nkdep. nih.gov/lab-evalu ation/gfr/creatin ine-stand ardization, last updated December 2011. CHLORIDE 2025-07-22 13:32 [facility] 103 mmol/l As of April 2023 testing method has changed, this may include reference ranges. SODIUM 2025-07-22 13:32 [facility] 133 mmol/l Unknown AST ASPARTATE AMINOTRANSFERASE 2025-07-22 13:32 [facility] 20 iu/l As of April 2023 testing method has changed, this may include reference ranges. BUN - BLOOD UREA NITROGEN 2025-07-22 13:32 [facility] 21 mg/dl As of April 2023 testing method has changed, this may include reference ranges. ALT ALANINE AMINOTRANSFERASE 2025-07-22 13:32 [facility] 27 iu/l As of April 2023 testing method has changed, this may include reference ranges. CARBON DIOXIDE - CO2 2025-07-22 13:32 [facility] 27 mmol/l As of April 2023 testing method has changed, this may include reference ranges. ANION GAP 2025-07-22 13:32 [facility] 3.0 (missing) (missing) GLOBULIN 2025-07-22 13:32 [facility] 3.4 g/dl (missing) ALBUMIN 2025-07-22 13:32 [facility] 4.1 g/dl As of April 2023 testing method has changed, this may include reference ranges. POTASSIUM 2025-07-22 13:32 [facility] 4.6 mmol/l As of April 2023 testing method has changed, this may include reference ranges. GLUCOSE 2025-07-22 13:32 [facility] 65 mg/dl As of April 2023 testing method has changed, this may include reference ranges. TOTAL PROTEIN 2025-07-22 13:32 [facility] 7.5 g/dl As of April 2023 testing method has changed, this may include reference ranges. ALKALINE PHOSPHATASE 2025-07-22 13:32 [facility] 97 iu/l As of April 2023 testing method has changed, this may include reference ranges. Result panel 9 CRP - C-REACTIVE PROTEIN 2025-07-31 13:42 [facility] 1.0 mg/dl As of Apr testing method has changed, this may include reference ranges. ESR- ERYTHROCYTE SEDIMENT RATE 2025-07-31 13:42 [facility] 40 mm/hr (missing ) Result panel 10 BILIRUBIN,TOTAL 2025-08-04 10:50 [facility] 0.3 mg/dl As of April 2023 testing method has changed, this may include reference ranges. CREATININE 2025-08-04 10:50 [facility] 0.7 mg/dl As of April 2023 testing method has changed, this may include reference ranges. ALBUMIN/GLOBULIN RATIO 2025-08-04 10:50 [facility] 1.2 (missing) (missing) CALCIUM 2025-08-04 10:50 [facility] 10.5 mg/dl As of April 2023 testing method has changed, this may include reference ranges. CHLORIDE 2025-08-04 10:50 [facility] 109 mmol/l As of April 2023 testing method has changed, this may include reference ranges. SODIUM 2025-08-04 10:50 [facility] 137 mmol/l Unknown BUN - BLOOD UREA NITROGEN 2025-08-04 10:50 [facility] 18 mg/dl As of April 2023 testing method has changed, this may include reference ranges. AST ASPARTATE AMINOTRANSFERASE 2025-08-04 10:50 [facility] 23 iu/l As of April 2023 testing method has changed, this may include reference ranges. CARBON DIOXIDE - CO2 2025-08-04 10:50 [facility] 24 mmol/l As of April 2023 testing method has changed, this may include reference ranges. ALT ALANINE AMINOTRANSFERASE 2025-08-04 10:50 [facility] 25 iu/l As of April 2023 testing method has changed, this may include reference ranges. GLOBULIN 2025-08-04 10:50 [facility] 3.4 g/dl (missing) ANION GAP 2025-08-04 10:50 [facility] 4.0 (missing) (missing) ALBUMIN 2025-08-04 10:50 [facility] 4.0 g/dl As of April 2023 testing method has changed, this may include reference ranges. POTASSIUM 2025-08-04 10:50 [facility] 5.0 mmol/l As of April 2023 testing method has changed, this may include reference ranges. TOTAL PROTEIN 2025-08-04 10:50 [facility] 7.4 g/dl As of April 2023 testing method has changed, this may include reference ranges. GLUCOSE 2025-08-04 10:50 [facility] 70 mg/dl As of April 2023 testing method has changed, this may include reference ranges. GFR - MDRD 2025-08-04 10:50 [facility] 84 (missing) The IDMS-traceable MDRD Study Equation has been validated extensively in and populations between the ages of 18 and 70 with impaired kidney function (eGFR < 60 mL/min/1.73m2) and has shown good performance for patients with all common causes of kidney disease. Although this equation has not been validated for patients older than 70, an MDRD-derived eGFR may still be a useful tool for providers caring for patients older than 70. References: http://www.nkdep. nih.gov/lab-evalu ation/gfr/creatin ine-stand ardization, last updated December 2011. ALKALINE PHOSPHATASE 2025-08-04 10:50 [facility] 98 iu/l As of April 2023 testing method has changed, this may include reference ranges. Social History date description facility
--- NOTE | 2025-08-14 03:22 | ED Physician Documentation ---
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 she always has some pain but it is worse tonight and a/w severe nausea. denies fever, cp soa urinary sx. Meds/Allgy Home Medications Ambulatory Orders Medication Instructions Recorded Confirmed amlodipine 5 mg tablet 5 mg PO DAILY 06/24/2408/14 levothyroxine 25 mcg tablet 25 mcg PO DAILY 01/08/25 1 thiamine mononitrate (vit B1) 100 100 mg PO DAILY 12/2808/14/25 mg tablet food supplemt, lactose-reduced 1 ea PO QID PRN low blo od sugar 03/06/25 08/14/25 (Ensure oral liquid) #237 mL glucose 2 gram chewable tablet 6 g (3 x 2 gram) PO QID PRN low 03/06/25 08/14/25 blood sugar #100 tabs doxazosin 1 mg tablet (Cardura) 1 mg PO QPM 03/14/25 1 hydrocodone 5 mg-acetaminophen 325 0.5 - 1 tab PO BID PRN severe pain 03/14/25 08/14/25 mg tablet #20 tabs magnesium oxide 400 mg (241.3 mg 400 mg PO BID #60 tab s 05/05/25 08/14/25 magnesium) tablet pantoprazole 40 mg tablet,delayed 40 mg PO QDAC #30 ta bs 05/05/25 08/14/25 release acetaminophen 500 mg tablet 500 - 1,000 mg PO BID PRN pain 05/13/25 08/14/25 cholecalciferol (vitamin D3) 25 50 mcg PO DAILY 08/14/25 mcg (1,000 unit) capsule (Vitamin D3) sodium chloride 1,000 mg soluble 1,000 mg PO TID 05/1308/14/25 tablet blood sugar diagnostic (FreeStyle #50 ea 07/09/2507/30 Precision Yoni Strips) blood-glucose sensor (FreeStyle #2 ea 08/12/25 5 Beba 2 Plus Sensor device) ketoconazole 2 % topical cream 1 applic topical BID #3 0 grams 08/12/25 08/14/25 sertraline 50 mg tablet 50 mg PO QDAY 08/12/2508/14 sodium zirconium cyclosilicate 10 10 g PO BID-TID #180 ea 08/12/25 08/14/25 gram oral powder packet (Lokelma) Allergies Allergies Allergy/AdvReac Type Severity Reaction Status Date / Time Penicillins Allergy Anaphylaxis Verified 08/14/25 03:07 vancomycin Allergy Rash Verified 08/14/25 03:07 ciprofloxacin (From Cipro) AdvReac Intermediate Dizziness Verified 08/14/25 03:07 methocarbamol AdvReac Dizziness Verified 08/14/25 03:07 PFSH Active Problems All Active Problems (Updated 08/14/25 @ 03:22 by Katie Roca MD) Abdominal pain (Acute) Contact dermatitis (Acute) Contact dermatitis due to feces (Acute) Grief (Acute) Ileostomy in place (Acute) Encounter for attention to ileostomy (Acute) Delayed gastric emptying (Acute) Hypomagnesemia (Acute) Flashbacks (Acute) Allergic conjunctivitis (Acute) Panic attack (Acute) Hypoglycemia (Acute) Hyperkalemia (Acute) Hypothermia (Acute) Chronic pain (Acute) Depression (Acute) Parastomal hernia (Acute) Swelling of right lower extremity (Acute) Malabsorption (Acute) Weakness (Acute) Medical History Medical History (Updated 08/14/25 @ 03:22 by Katie Roca MD) Insomnia Problem List clean-up per request of Phys. EHR Cmte Cellulitis of right leg Leukopenia Thrombocytopenia Chronic hyperkalemia History of seizure related to alcohol withdrawal Crohn disease Alcohol dependence in remission UTI (urinary tract infection) Surgical History Surgical History (Updated 04/18/25 @ 20:22 by Jana Bernal MD) H/O colectomy with end ileostomy at age 13 Hx of neck surgery for an epidural abscess Hx of hernia repair parastomal Family History Family History Mother Dementia Sister Cancer Social History Social History (Updated 06/18/25 @ 14:45 by YOKASTA Ames, MSN) Smoking Status: Smoker with current status unk Second hand tobacco smoke exposure: No Do you dip or chew tobacco?: No Do you vape?: No Patient requests smoking cessation consult: No Initiate information on smoking cessation: No Living arrangement: At home Living Condition: With spouse/s.o. 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 POLST Patient has POLST: Yes POLST CPR Status: Attempt Resuscitation (CPR) Level of Medical Intervention: Full Treatment Exam Exam Vital Signs: Vital Signs x48h Temp Pulse Resp BP Pulse Ox O2 Flow Rate 08/14/25 06:00 36.8 C 77 22 129/89 98 08/14/25 04:13 18 94 2 08/14/25 04:13 78 14 104/85 88 L 08/14/25 03:54 89 22 129/87 98 08/14/25 02:56 35.9 C L 68 20 149/86 H 98 Constitutional normal general appearance and no apparent distress HENMT normocephalic and head/scalp atraumatic Eyes PERRL and EOMs intact bilaterally Respiratory breath sounds equal bilaterally, normal respiratory effort and clear to auscultation bilaterally Cardiovascular normal heart rate noted and regular rhythm noted Gastrointestinal colostomy with good output. palpable hernia just inferior to colostomy Results Vitals Vitals: Vital Signs - 24 hr 08/14/25 02:56 08/14/25 03:49 08/14/25 03:53 Temperature 35.9 C L Temperature Source Tympanic Pulse Rate 68 Respiratory Rate 20 Blood Pressure 149/86 H O2 Saturation 98 Oxygen Delivery Method Room Air O2 Source Room air If not protocol: Oxygen Flow, liters/minute Pain Intensity 9 9 08/14/25 03:54 08/14/25 04:13 08/14/25 04:13 Temperature Temperature Source Pulse Rate 89 78 Respiratory Rate 22 14 18 Blood Pressure 129/87 104/85 O2 Saturation 98 88 L 94 Oxygen Delivery Method O2 Source Room air Room air Nasal cannula If not protocol: Oxygen Flow, liters/minute 2 Pain Intensity 08/14/25 05:25 08/14/25 06:00 Temperature 36.8 C Temperature Source Tympanic Pulse Rate 77 Respiratory Rate 22 Blood Pressure 129/89 O2 Saturation 98 Oxygen Delivery Method O2 Source Room air If not protocol: Oxygen Flow, liters/minute Pain Intensity 3 2 Oxygen O2 Source Room air Labs Labs: Laboratory Tests 08/14/25 08/14/25 03:41 05:23 WBC 5.0 RBC 3.35 L Hgb 10.1 L Hct 30.6 L MCV 91.3 MCH 30.1 MCHC 33.0 RDW 13.3 Plt Count 152 MPV 9.4 Neut # (Auto) 4.2 Lymph # (Auto) 0.4 L [place] # (Auto) 0.3 Eos # (Auto) 0.1 Baso # (Auto) 0.0 Absolute Nucleated RBC 0.00 Nucleated RBC % 0.0 Sodium 133 L Potassium 4.3 Chloride 103 Carbon Dioxide 25 Anion Gap 5.0 L BUN 17 Creatinine 0.5 L Estimated GFR (MDRD) 124 Glucose 73 L Calcium 10.0 Total Bilirubin 0.3 AST 19 ALT 21 Alkaline Phosphatase 88 Total Protein 6.8 Albumin 3.9 Globulin 2.9 Albumin/Globulin Ratio 1.3 Lipase 34 Urine Color YELLOW Urine Clarity CLEAR Urine pH 6.0 Ur Specific [place] 1.010 Urine Protein NEGATIVE Urine Glucose (UA) NEGATIVE Urine Ketones NEGATIVE Urine Occult Blood NEGATIVE Urine Nitrite NEGATIVE Urine Bilirubin NEGATIVE Urine Urobilinogen 0.2 (NORMAL) Ur Leukocyte Esterase SMALL H Urine RBC 0-5 Urine WBC 0-3 Ur Squamous Epith Cells FEW Squamous Urine Bacteria Rare Ur Microscopic Review INDICATED Urine Culture Comments INDICATED Procedures General procedure General procedure: Attempted to reduce her hernia which is located just inferolateral to the RUQ ostomy site, with success but then hernia popped back out spontaneously. Patient tolerated well. PD Medical Decision Making ED course ED course: 65yF p/w abdominal pain tonight. CT a/p with po contrast ordered as well as symptomatic meds. plan to reevaluate. CT report - R midabdomen ostomy with bowel obstruction with transition point at ostomy. d/w Dr. Pinto at 6:15am who will see the patient. Provided 2mg IV versed to relax the patient prior to hernia reduction. I reduced it successfully but then it just popped back out again. Likely need for operative repair. plan to endorse to incoming daytime ed md at 7am shift change. Discharge Plan Discharge Condition: Stable Clinical Impression: Abdominal pain Prescriptions: No Action amlodipine 5 MG tablet 5 mg PO DAILY Patient Comments: take 1 tablet by mouth once daily thiamine mononitrate (vit B1) 100 mg tablet 100 mg PO DAILY levothyroxine 25 mcg tablet 25 mcg PO DAILY cholecalciferol (vitamin D3) [Vitamin D3] 25 mcg (1,000 unit) capsule 50 mcg PO DAILY magnesium oxide 400 mg (241.3 mg magnesium) Tablet 400 mg PO BID Qty: 60 0RF pantoprazole 40 mg Tablet,Delayed Release (Dr/Ec) 40 mg PO QDAC Qty: 30 0RF acetaminophen 500 mg tablet 500 - 1,000 mg PO BID PRN (Reason: pain) Ensure Liquid 1 ea PO QID PRN (Reason: low blood sugar) Qty: 237 0RF glucose 2 gram tablet,chewable 6 g PO QID PRN (Reason: low blood sugar) Qty: 100 0RF doxazosin [Cardura] 1 mg tablet 1 mg PO QPM hydrocodone-acetaminophen 5-325 mg tablet 0.5 - 1 tab PO BID PRN (Reason: severe pain ) Qty: 20 0RF sodium chloride 1,000 mg tablet,soluble 1,000 mg PO TID (DME) FreeStyle Precision Yoni Strips Strip See Rx Instructions .Route Qty: 50 5RF Rx Instructions: Use as directed with Beba 2 meter to monitor blood sugar up to three times daily sertraline 50 mg tablet 50 mg PO QDAY Lokelma 10 gram powder in packet 10 g PO BID-TID Qty: 180 3RF Rx Instructions: Dissolve 1 packet into specified amount of liquid two to three times daily per provider. ketoconazole 2 % cream 1 applic topical BID Qty: 30 2RF (DME) FreeStyle Beba 2 Plus Sensor Device See Rx Instructions .Route Qty: 2 5RF Rx Instructions: As directed to monitor blood sugar. Replace every 14 days. Print Language: Guinean Stand Alone Forms: PCP List
[2025-08-14] MEDS ORDERED: DIATRIZOATE MEGLU/DIATRIZO SOD 30 ML BOTTLE ONE (03:24)
[2025-08-14 03:48] LABS: HCT - HEMATOCRIT 30.6 % (37.0-47.0); HGB - HEMOGLOBIN 10.1 g/dL (12.0-16.0); MEAN PLATELET VOLUME 9.4 fL (7.9-10.8); NRBC ABSOLUTE COUNT (AUTO) 0.00 x10^3/uL; NUCLEATED RED BLOOD CELLS AUTO 0.0 /100WBC; PLT - PLATELET COUNT 152 10^3/uL (130-450); RED CELL DISTRIBUTION WIDTH 13.3 % (12.0-15.0)
[2025-08-14] MEDS: SODIUM CHLORIDE 0.9% 1,000 ML IV STA (03:49)
[2025-08-14] MEDS: HYDROmorphone 1 MG/ML CARPUJECT IVP STA ×2 (03:49→06:42)
[2025-08-14] MEDS: ONDANSETRON 4 MG/2 ML VIAL IVP STA ×2 (03:49→09:53)
[2025-08-14 04:05] LABS: ALT ALANINE AMINOTRANSFERASE 21.0 IU/L (10-60); AST ASPARTATE AMINOTRANSFERASE 19.0 IU/L (10-42); BUN - BLOOD UREA NITROGEN 17.0 mg/dL (6-20); CARBON DIOXIDE - CO2 25.0 mmol/L (21-32); CREATININE 0.5 mg/dL (0.6-1.3); GFR - MDRD 124.0 (>89)
[2025-08-14] MEDS: DIATRIZOATE MEGLU/DIATRIZO SOD 30 ML BOTTLE PO ONE (05:24)
[2025-08-14 05:40] LABS: GLUCOSE, URINE (UA) NEGATIVE (NEGATIVE); KETONES,URINE (UA) NEGATIVE (NEGATIVE); OCCULT BLOOD,URINE NEGATIVE (NEGATIVE); SQUAMOUS EPITHELIAL CELL,UR FEW Squamous (<= Few)
[2025-08-14] MEDS: MIDAZOLAM 2 MG/2 ML VIAL IVP STA (06:42)
--- NOTE | 2025-08-14 08:21 | CT Report ---
PROCEDURE: CT Abdomen/Pelvis W INDICATIONS: Abdominal pain, acute, nonlocalized CONTRAST: 100cc [id number] TECHNIQUE: After the administration of intravenous contrast, a CT scan of the abdomen and pelvis was performed. Images were recorded and evaluated at appropriate window settings. Reformats: coronal and sagittal. For radiation dose reduction, the following was used: automated exposure control, adjustment of mA and/or kV according to patient size. COMPARISON: 06/06/2025 FINDINGS: Image quality: Diagnostic. Lower chest: Minimal right basilar atelectasis.. Liver: No solid mass. Gallbladder: No radiopaque stones or wall thickening. Biliary tree: No intrahepatic or extrahepatic dilation, accounting for age. Spleen: No splenomegaly. Pancreas: No pancreatic ductal dilation. Adrenals: No adrenal nodule. Kidneys and ureters: No hydronephrosis. No renal cystic lesion which requires follow up. No solid mass. Stomach, bowel and peritoneum: Again noted is remote colostomy. There is incarcerated herniated small distal small bowel herniated through the abdominal wall defect for the left lower quadrant ileostomy. This loop of bowel is wall thickening and edema and there is minimal fluid subjacent to the herniated incarcerated loop of bowel. This results in a high-grade small bowel obstruction. This is the site of previous obstruction. Lymph nodes: No central or retroperitoneal adenopathy. Vessels: No infrarenal aortic aneurysm. Patent portal vein. PELVIS Reproductive organs: Unremarkable. Bladder: No abnormal wall thickening. Pelvic lymph nodes: No pelvic adenopathy by size criteria. Bones: No aggressive osseous abnormality. Other: No significant ventral or inguinal hernia. IMPRESSION: 1. Remote colectomy and left lower quadrant ileostomy. 2. Recurrent high-grade distal small bowel obstruction secondary to herniation of a loop of distal ileum at the abdominal wall defect for the ileostomy. This loop of bowel is now incarcerated and appears significantly inflamed with associated subjacent fluid. Findings are concordant with preliminary interpretation provided by [facility]. Reviewed by: Jose Chavez MD on 08/14/2025 8:18 AM PDT Approved by: Jose Chavez MD on 08/14/2025 8:18 AM PDT Station ID: [id number]
--- NOTE | 2025-08-14 10:20 | HISTORY & PHYSICAL EXAMINATION ---
Chief Complaint Chief Complaint Chief Complaint: Abdominal Pain History of Present Illness Admitted From Admitted From:: ED History Obtained From Records Reviewed: [facility] History obtained from: Patient, EMR, Family History of Present Illness HPI Comment/Other: This is a 65-year-old female with past medical history of ulcerative colitis on Humira with ostomy in place and known parastomal hernia, hypertension, well- known to the medicine and surgical services here who came in with abdominal pain, nausea, vomiting. She reports this pain is worse than she typically has and she typically does not have as much nausea. She is found to have a small bowel obstruction with transition point in the mid abdomen on imaging. Of note this does not seem to be parastomal. She is scheduled for surgery with colorectal surgery in [place] on September 29. Patient denies any fevers or chills, no chest pain no dyspnea. Denies loose ostomy output. Labs reviewed. The patient has stable hemoglobin at 10.1. Typically ranging 10-12. No leukocytosis. Sodium 133. Creatinine 0.5. Remainder of her electrolytes are normal. UA was collected in the ED and is only remarkable for small amount of leukocyte esterase. Noninfectious. For some reason a culture was reflexed. Meds/Allgy Home Medications Ambulatory Orders Medication Instructions Recorded Confirmed amlodipine 5 mg tablet 5 mg PO DAILY 06/24/2408/14 levothyroxine 25 mcg tablet 25 mcg PO DAILY 01/08/25 1 thiamine mononitrate (vit B1) 100 100 mg PO DAILY 12/2808/14/25 mg tablet food supplemt, lactose-reduced 1 ea PO QID PRN low blo od sugar 03/06/25 08/14/25 (Ensure oral liquid) #237 mL glucose 2 gram chewable tablet 6 g (3 x 2 gram) PO QID PRN low 03/06/25 08/14/25 blood sugar #100 tabs doxazosin 1 mg tablet (Cardura) 1 mg PO QPM 03/14/25 1 hydrocodone 5 mg-acetaminophen 325 0.5 - 1 tab PO BID PRN severe pain 03/14/25 08/14/25 mg tablet #20 tabs magnesium oxide 400 mg (241.3 mg 400 mg PO BID #60 tab s 05/05/25 08/14/25 magnesium) tablet pantoprazole 40 mg tablet,delayed 40 mg PO QDAC #30 ta bs 05/05/25 08/14/25 release acetaminophen 500 mg tablet 500 - 1,000 mg PO BID PRN pain 05/13/25 08/14/25 cholecalciferol (vitamin D3) 25 50 mcg PO DAILY 08/14/25 mcg (1,000 unit) capsule (Vitamin D3) sodium chloride 1,000 mg soluble 1,000 mg PO TID 05/1308/14/25 tablet blood sugar diagnostic (FreeStyle #50 ea 07/09/2507/30 Precision Yoni Strips) blood-glucose sensor (FreeStyle #2 ea 08/12/25 5 Beba 2 Plus Sensor device) ketoconazole 2 % topical cream 1 applic topical BID #3 0 grams 08/12/25 08/14/25 sertraline 50 mg tablet 50 mg PO QDAY 08/12/2508/14 sodium zirconium cyclosilicate 10 10 g PO BID-TID #180 ea 08/12/25 08/14/25 gram oral powder packet (Lokelma) Allergies Allergies Allergy/AdvReac Type Severity Reaction Status Date / Time Penicillins Allergy Anaphylaxis Verified 08/14/25 03:07 vancomycin Allergy Rash Verified 08/14/25 03:07 ciprofloxacin (From Cipro) AdvReac Intermediate Dizziness Verified 08/14/25 03:07 methocarbamol AdvReac Dizziness Verified 08/14/25 03:07 PFSH Active Problems All Active Problems Crohn disease (Chronic) Small bowel obstruction (Acute) Abdominal pain (Acute) Contact dermatitis (Acute) Contact dermatitis due to feces (Acute) Grief (Acute) Ileostomy in place (Acute) Encounter for attention to ileostomy (Acute) Delayed gastric emptying (Acute) Hypomagnesemia (Acute) Flashbacks (Acute) Allergic conjunctivitis (Acute) Panic attack (Acute) Hypoglycemia (Acute) Hyperkalemia (Acute) Hypothermia (Acute) Chronic pain (Acute) Depression (Acute) Parastomal hernia (Acute) Swelling of right lower extremity (Acute) Malabsorption (Acute) Weakness (Acute) Medical History Medical History Insomnia Problem List clean-up per request of PhysMarii SAUCEDO Cmte Cellulitis of right leg Leukopenia Thrombocytopenia Chronic hyperkalemia History of seizure related to alcohol withdrawal Crohn disease Alcohol dependence in remission UTI (urinary tract infection) Surgical History Surgical History H/O colectomy with end ileostomy at age 13 Hx of neck surgery for an epidural abscess Hx of hernia repair parastomal Family History Family History (Updated 08/14/25 @ 12:20 by Adan eDng RN) Mother Dementia Cancer Sister Cancer Social History Social History (Updated 08/14/25 @ 12:20 by Aadn Deng RN) Smoking Status: Smoker with current status unk Second hand tobacco smoke exposure: No Do you dip or chew tobacco?: No Do you vape?: No Patient requests smoking cessation consult: No Initiate information on smoking cessation: No Living arrangement: At home Living Condition: With spouse/s.o. 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 Service: No POLST Patient has POLST: Yes POLST CPR Status: Attempt Resuscitation (CPR) Level of Medical Intervention: Full Treatment Exam Exam Vital Signs: Vital Signs x48h Temp Pulse Pulse Resp BP BP Pulse Ox 08/14/25 11:19 36.8 C 72 18 136/74 H 93 08/14/25 10:20 66 18 159/99 H 92 08/14/25 09:15 66 18 166/90 H 91 L 08/14/25 08:51 54 L 18 107/85 94 08/14/25 08:00 08/14/25 07:59 53 L 16 111/65 95 08/14/25 07:37 36.8 C 54 L 16 111/64 94 08/14/25 07:28 59 L 16 105/67 93 08/14/25 07:17 57 L 14 96/54 L 94 08/14/25 07:10 59 L 22 76/58 L 93 O2 Flow Rate 08/14/25 11:19 4 08/14/25 10:20 2 08/14/25 09:15 2 08/14/25 08:51 08/14/25 08:00 2 08/14/25 07:59 08/14/25 07:37 08/14/25 07:28 4 08/14/25 07:17 4 08/14/25 07:10 5 GEN: Patient is in pain on my initial exam. She is grimacing. Requesting pain medications. HEENT: NC/AT, normal appearance of external ears and nose. NGT in place. Hearing baseline. Cardiac: Regular rate and rhythm, no murmurs. Pulm: Lungs CTA bilaterally, no cough, no wheezes. Abdomen: Seemingly soft with voluntary guarding. Nondistended. No rebound tenderness. She has ostomy in the right abdomen that is filled with liquid contents. Extremities: Moves all 4 extremities equally. Normal tone. Neuro: Face symmetric, CN II through XII intact grossly. No focal neurologic deficits. Psych: Affect normal. Mood difficult to assess given extremis. Conclusion/Plan Problem List (1) Abdominal pain: Qualifiers: Abdominal location: epigastric Qualified Code(s): R10.13 - Epigastric pain (2) Ileostomy in place: (3) Encounter for attention to ileostomy: (4) Crohn disease: Qualifiers: Digestive disease complication type: other complication G astrointestinal tract location: unspecified location Qualified Code(s): K50.918 - Crohn's disease, unspecified, with other complication (5) Small bowel obstruction: Plan: Patient with chronic abdominal pain related to her Crohn's and abdominal surgeries. She has had an ileostomy in place for several years. She has had a peristomal hernia that has been repaired once before and is now recurrent. She is seeing surgery locally, and they are recommending that if she is to attempt revision she be seen by a colorectal specialist. She has a surgery apparently scheduled for early September with Dr. Arzola in [place]. Per her record, she underwent ileostomy at age 13 due to her Crohn's disease with total colectomy and gracilis flap procedure. Patient presented this admission after acute onset worsened abdominal pain consistent with her previous episodes of SBO. She was having nausea and vomiting that started a couple hours before she came to the hospital. Overall noticed that she had lack of output to her ostomy last evening around 2100. She has already began to improve. She has had an NG tube in place which is not putting out much. She has contents in her ostomy bag after receiving diatrizoate in the ED. - Continue NG to intermittent suction - Surgery following, appreciate their guidance - Likely nonoperative intervention at this time - Continue n.p.o. status, likely liberalize later this afternoon - Parenteral pain medications ordered, morphine discontinued as we on shortage - Started on D5 half-normal saline - Monitor electrolytes in a.m. - Monitor kidney function - Per CR surgery notes: Maintain MiraLAX daily, soft minced and moist diet (6) Hypoglycemia: Plan: Patient is not diabetic, but has had multiple episodes of hypoglycemia during her admissions here in the past. Unclear if she is ever had an endocrinologic workup. No records of such and notably records of the absence of such workup in her outpatient specialist visits. -Continue D5 half-normal saline as above -Before every meal, at bedtime blood glucose checks with hypoglycemic protocol Plan In addition to the above, patient is currently full code. She does require advance care planning given her multiple hospitalizations. She was an extremis on my initial visit. Her is returning later this afternoon, and I will attempt to have a conversation with them then. Please see anticipated ACP note. Lab Results 08/14/25 03:41 08/14/25 03:41
--- NOTE | 2025-08-14 10:28 | XRAY Report ---
PROCEDURE: XR Chest for Line Placement INDICATIONS: ngt placement TECHNIQUE: One view of the chest was acquired. COMPARISON: 06/02/2025 FINDINGS AND IMPRESSION: Enteric tube terminates in the gastric body. Low lung volumes. Right lower lung consolidation suspicious for airspace disease. Consider future imaging surveillance to assess for resolution. Heart size is at the upper limit of normal. Reviewed by: Beni Beverly MD on 08/14/2025 10:24 AM PDT Approved by: Beni Beverly MD on 08/14/2025 10:24 AM PDT Station ID: [id number]
[2025-08-14] MEDS ORDERED: SODIUM CHLORIDE FLUSH 0.9% 10 ML SYRINGE IVP PRN (11:18)
[2025-08-14] MEDS ORDERED: ONDANSETRON ODT 4 MG TABLET TL PRN (11:18)
[2025-08-14] MEDS ORDERED: PROCHLORPERAZINE 10 MG/2 ML VIAL IVP PRN (11:18)
[2025-08-14] MEDS: MORPHINE 2 MG/ML CARPUJECT IVP PRN (11:41)
[2025-08-14] MEDS: ONDANSETRON 4 MG/2 ML VIAL IVP PRN (11:41)
[2025-08-14] MEDS: DEXTROSE 5%-0.45% NACL 1,000 ML IV STA (12:25)
[2025-08-14] MEDS: PANTOPRAZOLE 40 MG VIAL IVP SCH (12:47)
[2025-08-14] MEDS: HYDROmorphone 0.5 MG/0.5 ML SYRINGE IVP PRN (16:13)
[2025-08-14] MEDS: SODIUM CHLORIDE FLUSH 0.9% 10 ML SYRINGE IVP SCH (16:14)
--- NOTE | 2025-08-14 18:14 | ADVANCE CARE PLANNING NOTE ---
Advance Care Planning Planning Encounter Date: 08/14/25 Time: 18:14 Diagnosis for Encounter (1) Abdominal pain: Qualifiers: Abdominal location: epigastric Qualified Code(s): R10.13 - Epigastric pain (2) Ileostomy in place: (3) Encounter for attention to ileostomy: (4) Crohn disease: Qualifiers: Digestive disease complication type: other complication Gastrointestinal tract location: unspecified location Qualified Code(s): K50.918 - Crohn's disease, unspecified, with other complication (5) Small bowel obstruction: (6) Hypoglycemia: Encounter Additional Discussion: Had brief conversation with the patient, she is intermittently in pain crisis followed by somnolence after receiving IV pain medications. She endorses that she would want to be a full CODE STATUS. I had a prolonged conversation with her and surrogate decision maker, Rashad. He shares much of their jaylyn course over the last 3 years. He shares that Ana M has been in and out of the hospital with multiple complications. She is had her ostomy in place since she was 13 years old. He is very perseverant understandably about complications of sepsis that she experienced from her immunosuppression. He relates that she experienced a cardiac arrest and for 20 minutes. Both the patient and her expressed inwards and through their actions of recurrently coming back to the hospital that they are not put out by ongoing medical workup and the burden that Ana M's medical complexity has placed on them. They believe, especially with her history of arrest, that they would want to pursue further resuscitative efforts if it were to come to that. They are understandably hopeful it does not. Rashad describes Ana M as an ambitious person. A "go-getter". He describes that she wakes early and works around her house for several hours in the morning. She walks around her neighborhood 3-4 times a day right in her shine. She does but she can to be active in his opinion. She does not find her quality of life poor. I reminded them that should that ever change, they are in control of their care. If they were choose to focus more on keeping Ana M comfortable, they can opt for more conservative care. They are not there yet. Ana M has 2 adult children aged 40 and 42. Both live locally into [facility]. They are close. Her , Rashad is her surrogate decision maker. He would be legal next of kin as well. They do not have DPOA paperwork. I have encouraged them to consider this when Ana M is able to participate in the conversation more readily. Code Status: Attempt Resuscitation Time spent on advance care plannin
--- NOTE | 2025-08-14 18:43 | CONSULTATION NOTE ---
History of Present Illness History of Present Illness HPI Comment/Other: 65F known to the general surgery service for her end ileostomy with parastomal hernia and recurrent SBO's. She has a history of crohns colitis not currently on treatment, s/p total proctocolectomy with end ileostomy in 2009 and a parastomal hernia repair with mesh in 2022, and multiple medical conditions that have been poorly optimized over the last few years. She has been seen by Dr. Arzola (colorectal) and is scheduled for a robotic vs open parastomal hernia repair/revision/reciting of her ileostomy. She returns to the ED today with Complaints of abdominal since last night, nausea but no emesis (she did vomit immediately after my interview with her), and decreased ostomy output. Her SBOs typically have resolved very quickly. PFSH Active Problems All Active Problems Abdominal pain (Acute) Contact dermatitis (Acute) Contact dermatitis due to feces (Acute) Grief (Acute) Encounter for attention to ileostomy (Acute) Ileostomy in place (Acute) Crohn disease (Chronic) Small bowel obstruction (Acute) Delayed gastric emptying (Acute) Hypomagnesemia (Acute) Flashbacks (Acute) Allergic conjunctivitis (Acute) Panic attack (Acute) Chronic pain (Acute) Hyperkalemia (Acute) Swelling of right lower extremity (Acute) Parastomal hernia (Acute) Hypothermia (Acute) Malabsorption (Acute) Depression (Acute) Weakness (Acute) Hypoglycemia (Acute) Medical History Medical History Insomnia Problem List clean-up per request of Phys. EHR Cmte Leukopenia Alcohol dependence in remission History of seizure related to alcohol withdrawal Cellulitis of right leg Crohn disease Chronic hyperkalemia Thrombocytopenia UTI (urinary tract infection) Surgical History Surgical History H/O colectomy with end ileostomy at age 13 Hx of neck surgery for an epidural abscess Hx of hernia repair parastomal Family History Family History (Updated 08/14/25 @ 12:20 by Adan Deng, JOSE) Mother Dementia Cancer Sister Cancer Social History Social History (Updated 08/14/25 @ 12:20 by Adan Deng, RN) Smoking Status: Smoker with current status unk Second hand tobacco smoke exposure: No Do you dip or chew tobacco?: No Do you vape?: No Patient requests smoking cessation consult: No Initiate information on smoking cessation: No Living arrangement: At home Living Condition: With spouse/s.o. 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 Service: No POLST Patient has POLST: Yes POLST CPR Status: Attempt Resuscitation (CPR) Level of Medical Intervention: Full Treatment Meds/Allgy Home Medications Ambulatory Orders Medication Instructions Recorded Confirmed amlodipine 5 mg tablet 5 mg PO DAILY 06/24/2408/14 levothyroxine 25 mcg tablet 25 mcg PO DAILY 01/08/25 1 thiamine mononitrate (vit B1) 100 100 mg PO DAILY 12/2808/14/25 mg tablet food supplemt, lactose-reduced 1 ea PO QID PRN low blo od sugar 03/06/25 08/14/25 (Ensure oral liquid) #237 mL glucose 2 gram chewable tablet 6 g (3 x 2 gram) PO QID PRN low 03/06/25 08/14/25 blood sugar #100 tabs doxazosin 1 mg tablet (Cardura) 1 mg PO QPM 03/14/25 1 hydrocodone 5 mg-acetaminophen 325 0.5 - 1 tab PO BID PRN severe pain 03/14/25 08/14/25 mg tablet #20 tabs magnesium oxide 400 mg (241.3 mg 400 mg PO BID #60 tab s 05/05/25 08/14/25 magnesium) tablet pantoprazole 40 mg tablet,delayed 40 mg PO QDAC #30 ta bs 05/05/25 08/14/25 release acetaminophen 500 mg tablet 500 - 1,000 mg PO BID PRN pain 05/13/25 08/14/25 cholecalciferol (vitamin D3) 25 50 mcg PO DAILY 08/14/25 mcg (1,000 unit) capsule (Vitamin D3) sodium chloride 1,000 mg soluble 1,000 mg PO TID 05/1308/14/25 tablet blood sugar diagnostic (FreeStyle #50 ea 07/09/2507/30 Precision Yoni Strips) blood-glucose sensor (FreeStyle #2 ea 08/12/25 5 Beba 2 Plus Sensor device) ketoconazole 2 % topical cream 1 applic topical BID #3 0 grams 08/12/25 08/14/25 sertraline 50 mg tablet 50 mg PO QDAY 08/12/2508/14 sodium zirconium cyclosilicate 10 10 g PO BID-TID #180 ea 08/12/25 08/14/25 gram oral powder packet (kelid) Allergies Allergies Allergy/AdvReac Type Severity Reaction Status Date / Time Penicillins Allergy Anaphylaxis Verified 08/14/25 03:07 vancomycin Allergy Rash Verified 08/14/25 03:07 ciprofloxacin (From Cipro) AdvReac Intermediate Dizziness Verified 08/14/25 03:07 methocarbamol AdvReac Dizziness Verified 08/14/25 03:07 Results Lab Results 08/14/25 03:41 08/14/25 03:41 Other Lab Results: Lab Results x24hrs 08/14/25 08/14/25 08/14/25 Range/Units 16:37 05:23 03:41 WBC 5.0 (4.8-10.8) x10^3/uL RBC 3.35 L (4.20-5.40) 10^6/uL Hgb 10.1 L (12.0-16.0) g/dL Hct 30.6 L (37.0-47.0) % MCV 91.3 (81.0-99.0) fL MCH 30.1 (27.0-31.0) pg MCHC 33.0 (32.0-36.0) g/dL RDW 13.3 (12.0-15.0) % Plt Count 152 (130-450) 10^3/uL MPV 9.4 (7.9-10.8) fL Neut # (Auto) 4.2 (1.5-6.6) 10^3/uL Lymph # (Auto) 0.4 L (1.5-3.5) 10^3/uL [place] # (Auto) 0.3 (0.0-1.0) 10^3/uL Eos # (Auto) 0.1 (0.0-0.7) 10^3/uL Baso # (Auto) 0.0 (0.0-0.1) 10^3/uL Absolute Nucleated RBC 0.00 x10^3/uL Nucleated RBC % 0.0 /100WBC Sodium 133 L (135-145) mmol/L Potassium 4.3 (3.5-4.5) mmol/L Chloride 103 (101-111) mmol/L Carbon Dioxide 25 (21-32) mmol/L Anion Gap 5.0 L (6-13) BUN 17 (6-20) mg/dL Creatinine 0.5 L (0.6-1.3) mg/dL Estimated GFR (MDRD) 124 (>89) Glucose 73 L (74-104) mg/dL POC Whole Bld Glucose 107 (70-100) mg/dL Calcium 10.0 (8.5-10.3) mg/dL Total Bilirubin 0.3 (0.2-1.0) mg/dL AST 19 (10-42) IU/L ALT 21 (10-60) IU/L Alkaline Phosphatase 88 (42-121) IU/L Total Protein 6.8 (6.4-8.9) g/dL Albumin 3.9 (3.2-5.5) g/dL Globulin 2.9 (2.1-4.2) g/dL Albumin/Globulin Ratio 1.3 (1.0-2.2) Lipase 34 (11-82) U/L Urine Color YELLOW Urine Clarity CLEAR (CLEAR) Urine pH 6.0 (5.0-7.5) PH Ur Specific [place] 1.010 (1.002-1.030) Urine Protein NEGATIVE (NEGATIVE) mg/dL Urine Glucose (UA) NEGATIVE (NEGATIVE) mg/dL Urine Ketones NEGATIVE (NEGATIVE) mg/dL Urine Occult Blood NEGATIVE (NEGATIVE) Urine Nitrite NEGATIVE (NEGATIVE) Urine Bilirubin NEGATIVE (NEGATIVE) Urine Urobilinogen 0.2 (NORMAL) (NORMAL) E.U./dL Ur Leukocyte Esterase SMALL H (NEGATIVE) Urine RBC 0-5 (0-5) /HPF Urine WBC 0-3 (0-5) /HPF Ur Squamous Epith Cells FEW Squamous (<= Few) Urine Bacteria Rare (None Seen) /HPF Ur Microscopic Review INDICATED Urine Culture Comments INDICATED Diagnostic Imaging Results Diagnostic Imaging Results: positive Read contemporaneously Diagnostic Imaging Results Comments: EXAM: [id number] CT/ABPEW ([id number]) PROCEDURE: CT Abdomen/Pelvis W INDICATIONS: Abdominal pain, acute, nonlocalized CONTRAST: 100cc [id number] TECHNIQUE: After the administration of intravenous contrast, a CT scan of the abdomen and pelvis was performed. Images were recorded and evaluated at appropriate window settings. Reformats: coronal and sagittal. For radiation dose reduction, the following was used: automated exposure control, adjustment of mA and/or kV according to patient size. COMPARISON: 06/06/2025 FINDINGS: Image quality: Diagnostic. Lower chest: Minimal right basilar atelectasis.. Liver: No solid mass. Gallbladder: No radiopaque stones or wall thickening. Biliary tree: No intrahepatic or extrahepatic dilation, accounting for age. Spleen: No splenomegaly. Pancreas: No pancreatic ductal dilation. Adrenals: No adrenal nodule. Kidneys and ureters: No hydronephrosis. No renal cystic lesion which requires follow up. No solid mass. Stomach, bowel and peritoneum: Again noted is remote colostomy. There is incarcerated herniated small distal small bowel herniated through the abdominal wall defect for the left lower quadrant ileostomy. This loop of bowel is wall thickening and edema and there is minimal fluid subjacent to the herniated incarcerated loop of bowel. This results in a high-grade small bowel obstruction. This is the site of previous obstruction. Lymph nodes: No central or retroperitoneal adenopathy. Vessels: No infrarenal aortic aneurysm. Patent portal vein. PELVIS Reproductive organs: Unremarkable. Bladder: No abnormal wall thickening. Pelvic lymph nodes: No pelvic adenopathy by size criteria. Bones: No aggressive osseous abnormality. Other: No significant ventral or inguinal hernia. IMPRESSION: 1. Remote colectomy and left lower quadrant ileostomy. 2. Recurrent high-grade distal small bowel obstruction secondary to herniation of a loop of distal ileum at the abdominal wall defect for the ileostomy. This loop of bowel is now incarcerated and appears significantly inflamed with associated subjacent fluid. Findings are concordant with preliminary interpretation provided by [facility]. Reviewed by: Jose Chavez MD on 08/14/2025 8:18 AM PDT Approved by: Jose Chavez MD on 08/14/2025 8:18 AM PDT Review of Systems Status of ROS: 10 or more systems reviewed and unremarkable except as noted in history and below Exam Exam Vital Signs: Vital Signs x48h Temp Pulse Pulse Resp BP Pulse Ox O2 Flow Rate 08/14/25 16:00 36.4 C L 95 21 134/77 H 92 2 08/14/25 11:19 36.8 C 72 18 136/74 H 93 4 Constitutional abnormal general appearance (chronically ill) and distress noted (mild) HENMT normocephalic Neck/C-Spine visual inspection normal Respiratory normal respiratory effort Cardiovascular normal heart rate noted Gastrointestinal abdomen soft to palpation, tender to palpation and distended Extremities normal to inspection Neurology no movement abnormality noted and GCS 15 Psychiatry mental status grossly normal and oriented x3 Skin skin color normal Conclusion/Plan Problem List (1) Small bowel obstruction: Plan: 65F with recurrent small bowel obstruction. On CT in the ED, transition point appears to be within the intraadbominal ileum, rather than in the terminal ileus that is chronically incarcerated within her known parastomal hernia. Initially hypotensive when presenting to the ED, but fluid responsive and nontachycardic. No leukocytosis, abdomen is distended and tender but nonperitoneal. Goal is NGT decompression and bridging patient to planned surgery on 09/29/2025. - NGT placed in ED and confirmed by XR in good position - NGT to LIWS - NPO/IVF - Admission to medicine service Surgery will follow. Hoa Pinto DO, VIRI General Surgeon, [facility] Lab Results 08/14/25 03:41 08/14/25 03:41 Diagnostic Imaging Results Diagnostic Imaging Results: positive Read contemporaneously
[2025-08-14] MEDS: NYSTATIN POWDER 15 GM TOP SCH (21:01)
[2025-08-15 06:07] LABS: HCT - HEMATOCRIT 29.0 % (37.0-47.0); HGB - HEMOGLOBIN 9.6 g/dL (12.0-16.0); MEAN PLATELET VOLUME 9.7 fL (7.9-10.8); PLT - PLATELET COUNT 158.0 10^3/uL (130-450); RED CELL DISTRIBUTION WIDTH 13.9 % (12.0-15.0)
[2025-08-15 06:22] LABS: BUN - BLOOD UREA NITROGEN 11.0 mg/dL (6-20); CARBON DIOXIDE - CO2 24.0 mmol/L (21-32); CREATININE 0.7 mg/dL (0.6-1.3); GFR - MDRD 84.0 (>89)
--- NOTE | 2025-08-15 07:14 | PROVIDER PROGRESS NOTE ---
Subjective General Admit Date: 08/15/25 Other Other Information/Narrative: Began having stoma output in the evening, Given full liquids. WBC still normal, HDN. Review of Systems Status of ROS: 10 or more systems reviewed and unremarkable except as noted in history and below Exam Exam Vital Signs: Vital Signs x48h Temp Pulse Resp BP Pulse Ox O2 Flow Rate 08/16/25 08:20 1 08/16/25 08:17 36.2 C L 68 12 99/65 92 1 Constitutional abnormal general appearance (chronically ill) and no apparent distress HENNC normocephalic Neck/C-Spine visual inspection normal Respiratory normal respiratory effort Cardiovascular normal heart rate noted Gastrointestinal abdomen soft to palpation, tender to palpation and distended mildly distended, mild ttp (nonfocal) Extremities normal to inspection Neurology no movement abnormality noted and GCS 15 Psychiatry mental status grossly normal and oriented x3 Skin skin color normal Impression/Plan Problem List (1) Small bowel obstruction: Plan: 65F with recurrent small bowel obstruction. On CT in the ED, transition point appeared to be within the intraadbominal ileum, rather than in the terminal ileus that is chronically incarcerated within her known parastomal hernia. Initially hypotensive when presenting to the ED, but fluid responsive and nontachycardic. No leukocytosis, abdomen is distended and tender but nonfocal/nonperitoneal. Stoma output already increasing. - Reomve NGT - ADAT - Patient has planned surgery on 09/29/[address] Arzola/colorectal. Surgery will follow. Hoa Pinto DO, FACS General Surgeon, [facility]
--- NOTE | 2025-08-15 08:24 | PROVIDER PROGRESS NOTE ---
Subjective Prog Note Date Prog Note Date: 08/15/25 Prog Note Time: 08:22 Subjective Subjective: Patient clinically stable overnight. Diet was advanced. She is not having any more significant emesis. She is having output into her ostomy. Hemoglobin stable at 9.6. No leukocytosis. Platelets are normal. Blood glucoses remained stable in the 70-1 10 range. No episodes of hypoglycemia. Kidney function is normal. Electrolytes are normal. With regard to her small bowel obstruction, the patient is free of this. She is very somnolent today. Not waking up. Not eating meal. Nursing came to me and were concerned about low blood pressure, MAP of 58. In the setting of her not eating, I suspect this is mostly hypovolemic. She has had ample ostomy output. Giving 1 L of fluid. When I went to evaluate the patient, she was sleeping again. She did wake to voice, though she appears weak and fatigued. She was able to answer when the nurse asked what kind of Ensure that she like to drink, she opened her eyes wide and said "strawberry". Current Medications Current Medications Current Medications: Current Medications Generic Name Dose Route Start Last Admin Trade Name Freq PRN Reason Stop Dose Admin Acetaminophen 650 mg 08/14/25 11:18 Acetaminophen 325 Mg Tablet PO Q4HR PRN Pain 1 to 4, or Fever Hydromorphone HCl 0.5 mg 08/14/25 15:54 08/14/25 16:13 Hydromorphone 0.5 Mg/0.5 Ml Syringe IVP 0.5 mg Q2H PRN Administration Severe Pain (Level 7-10) Nystatin 1 applic 08/14/25 21:00 08/14/25 21:01 Nystatin Powder 15 Gm TOP 1 applic BID FRANK Administration Ondansetron HCl 4 mg 08/14/25 11:18 Ondansetron Odt 4 Mg Tablet TL Q6HR PRN Nausea / Vomiting Ondansetron HCl 4 mg 08/14/25 11:18 08/14/25 11:41 Ondansetron 4 Mg/2 Ml Vial IVP 4 mg Q6HR PRN Administration Nausea / Vomiting Pantoprazole Sodium 40 mg 08/14/25 12:00 08/15/25 06:10 Pantoprazole 40 Mg Vial IVP 40 mg QDAC FRANK Administration Prochlorperazine Edisylate 10 mg 08/14/25 11:18 Prochlorperazine 10 Mg/2 Ml Vial IVP Q6HR PRN Nausea / Vomiting Sodium Chloride 10 ml 08/14/25 11:18 Sodium Chloride Flush 0.9% 10 Ml Syringe IVP PRN PRN NEEDED PER PROVIDER ORDERS Sodium Chloride 10 ml 08/14/25 17:00 08/15/25 01:10 Sodium Chloride Flush 0.9% 10 Ml Syringe IVP 10 ml 0100,0900,1700 FRANK Administration Objective Vital Signs/Intake & Output Vital Signs: Vital Signs x48h Temp Pulse Pulse Resp BP BP Pulse Ox 08/15/25 05:35 37.2 C 85 20 106/55 L 95 08/15/25 00:50 36.9 C 90 20 97/62 94 O2 Flow Rate 08/15/25 05:35 2 08/15/25 00:50 2 Intake & Output: Intake & Output 08/12/25 08/13/25 08/14/25 08/15/25 23:59 23:59 23:59 23:59 Intake Total 1805 / 1805 255 / 255 Output Total 101 / 101 150 / 150 Balance 1704 / 1704 105 / 105 Weight (kg) 48 kg Objective Comments/Other: GEN: Somnolent but easily rousable. Frail-appearing. HEENT: NC/AT, normal appearance of external ears and nose. NGT in place. Hearing baseline. Cardiac: Regular rate and rhythm, no murmurs. Pulm: Lungs CTA bilaterally, no cough, no wheezes. Abdomen: Soft, nontender. Nondistended. No rebound tenderness. Ostomy in place in the right abdomen with ample output. Extremities: Moves all 4 extremities equally. Normal tone. Neuro: Face symmetric, CN II through XII intact grossly. No focal neurologic deficits. Psych: Affect normal. Mood euthymic. Lab Results 08/15/25 05:28 08/15/25 05:28 Other Labs: Lab Results x24hrs 08/15/25 08/15/25 08/14/25 Range/Units 07:59 05:28 21:04 WBC 5.7 (4.8-10.8) x10^3/uL RBC 3.17 L (4.20-5.40) 10^6/uL Hgb 9.6 L (12.0-16.0) g/dL Hct 29.0 L (37.0-47.0) % MCV 91.5 (81.0-99.0) fL MCH 30.3 (27.0-31.0) pg MCHC 33.1 (32.0-36.0) g/dL RDW 13.9 (12.0-15.0) % Plt Count 158 (130-450) 10^3/uL MPV 9.7 (7.9-10.8) fL Sodium 135 (135-145) mmol/L Potassium 3.8 (3.5-4.5) mmol/L Chloride 105 (101-111) mmol/L Carbon Dioxide 24 (21-32) mmol/L Anion Gap 6.0 (6-13) BUN 11 (6-20) mg/dL Creatinine 0.7 (0.6-1.3) mg/dL Estimated GFR (MDRD) 84 L (>89) Glucose 79 (74-104) mg/dL POC Whole Bld Glucose 77 110 (70-100) mg/dL Calcium 8.6 (8.5-10.3) mg/dL 08/14/25 Range/Units 16:37 WBC (4.8-10.8) x10^3/uL RBC (4.20-5.40) 10^6/uL Hgb (12.0-16.0) g/dL Hct (37.0-47.0) % MCV (81.0-99.0) fL MCH (27.0-31.0) pg MCHC (32.0-36.0) g/dL RDW (12.0-15.0) % Plt Count (130-450) 10^3/uL MPV (7.9-10.8) fL Sodium (135-145) mmol/L Potassium (3.5-4.5) mmol/L Chloride (101-111) mmol/L Carbon Dioxide (21-32) mmol/L Anion Gap (6-13) BUN (6-20) mg/dL Creatinine (0.6-1.3) mg/dL Estimated GFR (MDRD) (>89) Glucose (74-104) mg/dL POC Whole Bld Glucose 107 (70-100) mg/dL Calcium (8.5-10.3) mg/dL Assessment/Plan Problem List (1) Small bowel obstruction: Impression: Resolved. Patient no longer having abdominal pain she is having ample ostomy output. Recall that she presented after having acute onset abdominal pain with no output from her ostomy. Became nauseous and threw up in the early hours before she came here. She was decompressed with the NG tube. NG tube is still in place. Recall that she has a history of ileostomy put in at age 13 due to Crohn's disease with total colectomy and gracilis flap procedure at that time. She has seen surgery locally for a peristomal hernia and they recommended her follow-up with a colorectal specialist. She has appointment scheduled for early September with Dr. Arzola in [place]. Patient has historically been very perseverant about her stomal hernia, but it is thought to be mainly cosmetic. - Patient has a diet order, needs to be minced and moist given history of bowel obstruction - Per her colorectal surgery notes, maintain MiraLAX daily - NG tube in place at this point not on suction, leaving until she is eating regularly, tolerating reasonably well. - Fluids as below - BMP a.m. - Surgery following - Given urinary retention and somnolence as below, likely med ready 08/16. Though she is ready once she is eating and ambulating. (2) Hypotension: (3) Somnolence: Impression: Patient is not encephalopathic. She is just sleepy. She wakes easily to voice. Patient's vital signs are otherwise stable. No evidence of sepsis. No leukocytosis this morning. She has a stable hemoglobin. Her shock index is less than 1. She does not have any dysuria. Her UA in the ED was reflexed for some reason to a culture but that grew polymicrobial growth less than 100,000 CFU - Discussed with nursing, encouraged them to get her up, get her to the chair. - Avoiding further narcotics at this time, patient reports no pain - As needed Tylenol added to her orders - Will give 1 L IV LR bolus - Monitor off antibiotics - Continue glucose checks with hypoglycemic protocol given history of symptomatic hypoglycemia. (4) Urinary retention: Impression: Of unclear etiology. Did not pee overnight, was bladder scan and straight cath this morning with greater than 1 L of urine out.Her renal function is normal on labs. Electrolytes normal. She is not moving. Suspect largely driven by inanition Encourage mobility as above - Fluids as above - Continue bladder protocol - Possibly discharge with [facility] if has persistent acute urinary retention of unclear etiology. - If she does not pee, will check creatinine in the a.m.
[2025-08-15] MEDS ORDERED: ACETAMINOPHEN 500 MG TABLET PO PRN (08:25)
[2025-08-15] MEDS: SERTRALINE 50 MG TABLET PO SCH (09:36)
[2025-08-15] MEDS: THIAMINE 100 MG TABLET PO SCH (09:38)
[2025-08-15] MEDS: CHOLECALCIFEROL 25 MCG TABLET PO SCH (09:38)
[2025-08-15] MEDS: KETOCONAZOLE 2% CREAM 15 GM TUBE TOP SCH (09:39)
[2025-08-15] MEDS: MAGNESIUM OXIDE 400 MG TABLET PO SCH (09:39)
[2025-08-15] MEDS: LEVOTHYROXINE 25 MCG TABLET PO SCH (09:46)
[2025-08-15] MEDS: ACETAMINOPHEN 325 MG TABLET PO PRN (09:46)
--- NOTE | 2025-08-15 09:52 | PHARMACY PROGRESS NOTE ---
Best Possible Medication History Admit Date and Time: 08/14/25 0950 Home Medications Medication Instructions Recorded Confirmed Type amlodipine 5 mg tablet 5 mg PO DAILY 06/24/2408/14 History levothyroxine 25 mcg tablet 25 mcg PO DAILY 01/08/25 1 History thiamine mononitrate (vit B1) 100 100 mg PO DAILY 12/2808/14/25 History mg tablet food supplemt, lactose-reduced 1 ea PO QID PRN low blo od sugar 03/06/25 08/14/25 Rx (Ensure oral liquid) #237 mL glucose 2 gram chewable tablet 6 g (3 x 2 gram) PO QID PRN low 03/06/25 08/14/25 Rx blood sugar #100 tabs doxazosin 1 mg tablet (Cardura) 1 mg PO QPM 03/14/25 1 History hydrocodone 5 mg-acetaminophen 325 0.5 - 1 tab PO BID PRN severe pain 03/14/25 08/14/25 Rx mg tablet #20 tabs magnesium oxide 400 mg (241.3 mg 400 mg PO BID #60 tab s 05/05/25 08/14/25 Rx magnesium) tablet pantoprazole 40 mg tablet,delayed 40 mg PO QDAC #30 ta bs 05/05/25 08/14/25 Rx release acetaminophen 500 mg tablet 500 - 1,000 mg PO BID PRN pain 05/13/25 08/14/25 History cholecalciferol (vitamin D3) 25 50 mcg PO DAILY 08/14/25 History mcg (1,000 unit) capsule (Vitamin D3) sodium chloride 1,000 mg soluble 1,000 mg PO TID 05/1308/14/25 History tablet blood sugar diagnostic (FreeStyle #50 ea 07/09/2507/30 Rx Precision Yoni Strips) blood-glucose sensor (FreeStyle #2 ea 08/12/25 5 Rx Beba 2 Plus Sensor device) ketoconazole 2 % topical cream 1 applic topical BID #3 0 grams 08/12/25 08/14/25 Rx sertraline 50 mg tablet 50 mg PO DAILY 08/12/2507/30 History sodium zirconium cyclosilicate 10 10 g PO BID-TID #180 ea 08/12/25 08/14/25 Rx gram oral powder packet (Lokelma) Processed by: Pharmacy Medications reviewed in ED?: Yes Medication History completed: Yes Patient Interview: Pt unable to participate Secondary Source(s): Spouse/Significant other [facility] Statement: As the person ultimately responsible for medication therapy, providers are able to order a medication from an existing home medication list in [facility] via the "Reconcile Routine" prior to Confirmation of that medication by [employer] intelligence support. Such practice is discouraged except when the physician, in their clinical judgment, deems that a medical need exists for a medication without regard to previous use.
[2025-08-15] MEDS: LACTATED RINGERS 500 ML IV ONE ×2 (12:20→15:05)
[2025-08-15 16:49] LABS: BUN - BLOOD UREA NITROGEN 17.0 mg/dL (6-20); CARBON DIOXIDE - CO2 24.0 mmol/L (21-32); CREATININE 0.9 mg/dL (0.6-1.3); GFR - MDRD 63.0 (>89)
[2025-08-15] MEDS: PHENOL THROAT SPRAY 177 ML MM PRN (17:41)
[2025-08-15] MEDS: DOXAZOSIN 1 MG TABLET PO SCH (22:23)
[2025-08-15] MEDS: HYDROcod/ACETAM 5/325 MG TABLET PO PRN (22:23)
[2025-08-16 06:20] LABS: BUN - BLOOD UREA NITROGEN 18.0 mg/dL (6-20); CARBON DIOXIDE - CO2 27.0 mmol/L (21-32); CREATININE 0.7 mg/dL (0.6-1.3); GFR - MDRD 84.0 (>89)
--- NOTE | 2025-08-16 08:22 | PROVIDER PROGRESS NOTE ---
Subjective Prog Note Date Prog Note Date: 08/16/25 Prog Note Time: 08:20 Subjective Subjective: Patient is doing well this morning. She required 1 dose of IV narcotic overnight for pain. Unclear what her pain was exactly. She is still having ostomy output. Her electrolytes have remained stable. Her blood glucoses remain stable. She is likely ready to discharge home today. I am adding on a TSH to her morning labs. Will BladderScan this morning, she does not exhibit any further retention, we will likely discharge today. Patient was quite somnolent this morning, fairly typical for her. We will have further discussion in the next couple hours. Current Medications Current Medications Current Medications: Current Medications Generic Name Dose Route Start Last Admin Trade Name Freq PRN Reason Stop Dose Admin Acetaminophen 650 mg 08/14/25 11:18 08/16/25 04:35 Acetaminophen 325 Mg Tablet PO 650 mg Q4HR PRN Administration Pain 1 to 4, or Fever Hydrocodone Bitart/Acetaminophen 1 tab 08/15/25 08:37 08/15/25 22:23 Hydrocod/Acetam 5/325 Mg Tablet PO 1 tab BID PRN Administration Moderate Pain (Level 4-6) Cholecalciferol 50 mcg 08/15/25 09:00 08/15/25 09:38 Cholecalciferol 25 Mcg Tablet PO 50 mcg DAILY FRANK Administration Doxazosin Mesylate 1 mg 08/15/25 21:00 08/15/25 22:23 Doxazosin 1 Mg Tablet PO 1 mg QPM FRANK Administration Ketoconazole 1 applic 08/15/25 09:00 08/15/25 22:24 Ketoconazole 2% Cream 15 Gm Tube TOP Not Given BID FRANK Levothyroxine Sodium 25 mcg 08/15/25 09:00 08/16/25 06:36 Levothyroxine 25 Mcg Tablet PO 25 mcg QDAC FRANK Administration Magnesium Oxide 400 mg 08/15/25 09:00 08/15/25 22:23 Magnesium Oxide 400 Mg Tablet PO 400 mg BID FRANK Administration Nystatin 1 applic 08/14/25 21:00 08/15/25 22:23 Nystatin Powder 15 Gm TOP 1 applic BID FRANK Administration Ondansetron HCl 4 mg 08/14/25 11:18 Ondansetron Odt 4 Mg Tablet TL Q6HR PRN Nausea / Vomiting Ondansetron HCl 4 mg 08/14/25 11:18 08/14/25 11:41 Ondansetron 4 Mg/2 Ml Vial IVP 4 mg Q6HR PRN Administration Nausea / Vomiting Pantoprazole Sodium 40 mg 08/14/25 12:00 08/16/25 06:35 Pantoprazole 40 Mg Vial IVP 40 mg QDAC FRANK Administration Phenol/Menthol 1 sprays 08/15/25 17:37 08/15/25 17:41 Phenol Throat Cameron 177 Ml MM 1 sprays Q4HR PRN Administration Mouth Sore Pain Polyethylene Glycol 17 gm 08/16/25 09:00 Polyethylene Glycol 3350 17 Gm Packet PO DAILY FRANK Prochlorperazine Edisylate 10 mg 08/14/25 11:18 Prochlorperazine 10 Mg/2 Ml Vial IVP Q6HR PRN Nausea / Vomiting Sertraline HCl 50 mg 08/15/25 09:00 08/15/25 09:36 Sertraline 50 Mg Tablet PO 50 mg DAILY FRANK Administration Sodium Chloride 10 ml 08/14/25 11:18 Sodium Chloride Flush 0.9% 10 Ml Syringe IVP PRN PRN NEEDED PER PROVIDER ORDERS Sodium Chloride 10 ml 08/14/25 17:00 08/15/25 23:50 Sodium Chloride Flush 0.9% 10 Ml Syringe IVP 10 ml 0100,0900,1700 FRANK Administration Thiamine HCl 100 mg 08/15/25 09:00 08/15/25 09:38 Thiamine 100 Mg Tablet PO 100 mg DAILY FRANK Administration Objective Vital Signs/Intake & Output Vital Signs: Vital Signs x48h Pulse Ox O2 Flow Rate 08/16/25 04:38 94 1 Intake & Output: Intake & Output 08/13/25 08/14/25 08/15/25 08/16/25 23:59 23:59 23:59 23:59 Intake Total 1805 / 1805 1535 / 1535 Output Total 101 / 101 2290 / 2290 370 / 370 Balance 1704 / 1704 -755 / -755 -370 / -370 Weight (kg) 48 kg Lab Results 08/15/25 05:28 08/16/25 05:54 Other Labs: Lab Results x24hrs 08/16/25 08/16/25 08/15/25 Range/Units 08:08 05:54 20:33 Sodium 137 (135-145) mmol/L Potassium 3.8 (3.5-4.5) mmol/L Chloride 106 (101-111) mmol/L Carbon Dioxide 27 (21-32) mmol/L Anion Gap 4.0 L (6-13) BUN 18 (6-20) mg/dL Creatinine 0.7 (0.6-1.3) mg/dL Estimated GFR (MDRD) 84 L (>89) Glucose 78 (74-104) mg/dL POC Whole Bld Glucose 70 89 (70-100) mg/dL Lactic Acid (0.5-2.2) mmol/L Calcium 10.2 (8.5-10.3) mg/dL 08/15/25 08/15/25 08/15/25 Range/Units 16:33 16:29 12:05 Sodium 134 L (135-145) mmol/L Potassium 3.7 (3.5-4.5) mmol/L Chloride 106 (101-111) mmol/L Carbon Dioxide 24 (21-32) mmol/L Anion Gap 4.0 L (6-13) BUN 17 (6-20) mg/dL Creatinine 0.9 (0.6-1.3) mg/dL Estimated GFR (MDRD) 63 L (>89) Glucose 97 (74-104) mg/dL POC Whole Bld Glucose 91 77 (70-100) mg/dL Lactic Acid 1.6 (0.5-2.2) mmol/L Calcium 9.2 (8.5-10.3) mg/dL 08/15/25 Range/Units 09:00 Sodium (135-145) mmol/L Potassium (3.5-4.5) mmol/L Chloride (101-111) mmol/L Carbon Dioxide (21-32) mmol/L Anion Gap (6-13) BUN (6-20) mg/dL Creatinine (0.6-1.3) mg/dL Estimated GFR (MDRD) (>89) Glucose (74-104) mg/dL POC Whole Bld Glucose 81 (70-100) mg/dL Lactic Acid (0.5-2.2) mmol/L Calcium (8.5-10.3) mg/dL Assessment/Plan Problem List (1) Small bowel obstruction: (2) Hypotension: (3) Somnolence: (4) Urinary retention:
[2025-08-16] MEDS: DICYCLOMINE 10 MG CAPSULE PO PRN (11:27)
--- NOTE | 2025-08-16 12:27 | Discharge Summary ---
"Discharge Summary Admit Date: 08/14/25 Discharge Date: 08/16/25 Discharging Provider: Ezequiel Bernal Primary Care Provider: Wendy Norris Code Status: Attempt Resuscitation Discharge Facility Name: Home DIAGNOSES Discharge Diagnoses with Status of Each Condition: Small bowel obstruction, resolved Ileostomy present, chronic Crohn's disease, chronic Patient presented with acute small bowel obstruction, transition point present on initial imaging. She received oral contrast in the ED, and by the time she mated to the floor, she had had resolution of her small bowel obstruction and was no longer having output from her NG tube. She had ample output into her ostomy tube. Remained hospitalized for the next 2 days as below, with no further recurrence of obstruction. - Continue daily MiraLAX per colorectal recommendations from their last note - Continue minced and moist diet - Ongoing follow-up with colorectal surgery - Discussed extensively return precautions for recurrent obstruction, especially if she is having no output through her ostomy. Abdominal pain, stable Patient had abdominal pain on initial arrival in setting of her SBO. She has had ongoing intermittent abdominal pain. This has been treatable with aspirin as well as her home [place]. She was seeking other options of known opiates. After discussion with general surgery, we will trial her on a as needed Bentyl. - Continue Tylenol, [place], dicyclomine Somnolence, improved History of hypoglycemia, not recurrent Patient was very somnolent on day one of her hospitalization. Her labs were normal. Kidney function was normal her potassium, sodium, blood glucose still remain normal. She has a history of getting encephalopathic with low blood sugars. Here, mich of her blood sugars was around 70. She required no dextrose rescue. She actually wakes easily every time I tried to wake her. She was interactive, mentating normally. She has no signs of infection. She remains hemodynamically stable. - Return to home environment - Recommend up to the table with meals - Tried to mobilize here is much as possible Acute urinary retention, resolved Of unclear etiology. Possibly in the setting of inanition. She had 1.5 L in her bladder on hospital day 1. She received straight cath. No recurrent episodes of retention. Bladder scan on day of discharge with PVR of 80 mL. - Counseled on return precautions for ongoing urinary retention HPI History of Present Illness: This is a 65-year-old female with past medical history of ulcerative colitis on Humira with ostomy in place and known parastomal hernia, hypertension, well- known to the medicine and surgical services here who came in with abdominal pain, nausea, vomiting. She reports this pain is worse than she typically has and she typically does not have as much nausea. She is found to have a small bowel obstruction with transition point in the mid abdomen on imaging. Of note this does not seem to be parastomal. She is scheduled for surgery with colorectal surgery in [place] on September 29. Patient denies any fevers or chills, no chest pain no dyspnea. Denies loose ostomy output. Labs reviewed. The patient has stable hemoglobin at 10.1. Typically ranging 10-12. No leukocytosis. Sodium 133. Creatinine 0.5. Remainder of her electrolytes are normal. UA was collected in the ED and is only remarkable for small amount of leukocyte esterase. Noninfectious. For some reason a culture was reflexed. CONSULTS | PROCEDURES Consultations: General surgery Procedures: Chest x-ray 08/14/2025 CT abdomen pelvis, 08/14/2025 HOSPITAL COURSE Hospital Course: Patient was admitted with typical symptoms of SBO, including abdominal pain, lack of ostomy output and nausea and vomiting. She received oral contrast in the ED, and her obstructive presentation quickly resolved. She passed the contrast and had ample amounts of liquid ostomy output over the first few hours of her hospitalization necessitating change of her ostomy bag. She is continue to have output to her ostomy. Her hospitalization was complicated by asymptomatic hypotension, with a MAP of 58. She received IV fluid boluses without any change. She awoke readily and mentating normally, continue to make urine, and had no other systemic signs of illness. She was well-perfused to her extremities. She did not demonstrate any symptoms of shock. She remained very somnolent during her 2 days of admission. She would readily go back to sleep when she was in bed. When up, she remained alert and was oriented. She was able to converse and state her wishes. Discussed her discharge with her on day of discharge and she agrees that she is safe to go home. She has not been eating much, but this has been a typical pattern when she has been hospitalized in the past. Her says he is able to get her eat at home. She uses ensures at home as well. Her labs remained stable her electrolytes are normal. - She will follow-up with colorectal surgery who apparently has ileoscopy planned for next week, she starts prep today - Return precautions discussed - Recommend she start on daily MiraLAX as recommended by her colorectal surgeon - I prescribe dicyclomine for her abdominal pain - Continue with minced and moist diet Of note she normally takes Lokelma for hyperkalemia. Her potassium has been between 3.8 and 4 through this hospitalization. I have advised them to hold off until they have outpatient labs checked on Monday which they have planned before resuming Lokelma. ALLERGIES Allergies Allergy/AdvReac Type Severity Reaction Status Date / Time Penicillins Allergy Anaphylaxis Verified 08/14/25 03:07 vancomycin Allergy Rash Verified 08/14/25 03:07 ciprofloxacin (From Cipro) AdvReac Intermediate Dizziness Verified 08/14/25 03:07 methocarbamol AdvReac Dizziness Verified 08/14/25 03:07 MEDICATIONS Ambulatory Orders Medication Instructions Recorded Confirmed amlodipine 5 mg tablet 5 mg PO DAILY 06/24/2408/14 levothyroxine 25 mcg tablet 25 mcg PO DAILY 01/08/25 1 thiamine mononitrate (vit B1) 100 100 mg PO DAILY 12/2808/14/25 mg tablet food supplemt, lactose-reduced 1 ea PO QID PRN low blo od sugar 03/06/25 08/14/25 (Ensure oral liquid) #237 mL glucose 2 gram chewable tablet 6 g (3 x 2 gram) PO QID PRN low 03/06/25 08/14/25 blood sugar #100 tabs doxazosin 1 mg tablet (Cardura) 1 mg PO QPM 03/14/25 1 hydrocodone 5 mg-acetaminophen 325 0.5 - 1 tab PO BID PRN severe pain 03/14/25 08/14/25 mg tablet #20 tabs magnesium oxide 400 mg (241.3 mg 400 mg PO BID #60 tab s 05/05/25 08/14/25 magnesium) tablet pantoprazole 40 mg tablet,delayed 40 mg PO QDAC #30 ta bs 05/05/25 08/14/25 release acetaminophen 500 mg tablet 500 - 1,000 mg PO BID PRN pain 05/13/25 08/14/25 cholecalciferol (vitamin D3) 25 50 mcg PO DAILY 08/14/25 mcg (1,000 unit) capsule (Vitamin D3) sodium chloride 1,000 mg soluble 1,000 mg PO TID 05/1308/14/25 tablet blood sugar diagnostic (FreeStyle #50 ea 07/09/2507/30 Precision Yoni Strips) blood-glucose sensor (FreeStyle #2 ea 08/12/25 5 Beba 2 Plus Sensor device) ketoconazole 2 % topical cream 1 applic topical BID #3 0 grams 08/12/25 08/14/25 sertraline 50 mg tablet 50 mg PO DAILY 08/12/2507/30 sodium zirconium cyclosilicate 10 10 g PO BID-TID #180 ea 08/12/25 08/14/25 gram oral powder packet (Lokelma) dicyclomine 10 mg capsule 10 mg PO QID PRN Abdominal P ain 08/16/25 #30 caps polyethylene glycol 3350 17 gram 17 g PO DAILY #30 ea 08/16/25 oral powder packet PHYSICAL EXAM AT DISCHARGE Vital Signs: Vital Signs x48h Temp Pulse Resp BP Pulse Ox O2 Flow Rate 08/16/25 08:20 1 08/16/25 08:17 36.2 C L 68 12 99/65 92 1 Physical Exam Other/Comments: CXR 08/14: Enteric tube in the gastric body, low lung volumes, right lower lung consolidative station concerning for airspace disease. Heart size upper limit of normal. CTAP 08/14 Remote colectomy and left lower quadrant ileostomy Recurrent high-grade distal small bowel obstruction secondary to herniation of loop of distal ileum with the abdominal wall defect of the ileostomy at this loop of bowel is now incarcerated and appears significantly inflamed associate with subjacent fluid. LABS 08/15/25 05:28 08/16/25 05:54 FOLLOW UP Follow Up: Patient has follow-up with her colorectal surgeon, Dr. Arzola Follow-up with general surgery here as needed Follow-up with primary care doctor in the next 1 to 2 weeks about her abdominal pain, nutrition TIME SPENT Time Spent in Discharge (Minutes): 52 Discharge Plan Discharge Patient Disposition: 01 Home, Self Care Condition: Stable Medically Cleared Date:: 08/16/25 Prescriptions: New polyethylene glycol 3350 17 gram Powder In Packet 17 g PO DAILY Qty: 30 0RF dicyclomine 10 mg Capsule 10 mg PO QID PRN (Reason: Abdominal Pain) Qty: 30 0RF Continued amlodipine 5 MG tablet 5 mg PO DAILY Patient Comments: take 1 tablet by mouth once daily thiamine mononitrate (vit B1) 100 mg tablet 100 mg PO DAILY levothyroxine 25 mcg tablet 25 mcg PO DAILY cholecalciferol (vitamin D3) [Vitamin D3] 25 mcg (1,000 unit) capsule 50 mcg PO DAILY magnesium oxide 400 mg (241.3 mg magnesium) Tablet 400 mg PO BID Qty: 60 0RF pantoprazole 40 mg Tablet,Delayed Release (Dr/Ec) 40 mg PO QDAC Qty: 30 0RF acetaminophen 500 mg tablet 500 - 1,000 mg PO BID PRN (Reason: pain) Ensure Liquid 1 ea PO QID PRN (Reason: low blood sugar) Qty: 237 0RF glucose 2 gram tablet,chewable 6 g PO QID PRN (Reason: low blood sugar) Qty: 100 0RF doxazosin [Cardura] 1 mg tablet 1 mg PO QPM hydrocodone-acetaminophen 5-325 mg tablet 0.5 - 1 tab PO BID PRN (Reason: severe pain ) Qty: 20 0RF sodium chloride 1,000 mg tablet,soluble 1,000 mg PO TID (DME) FreeStyle Precision Yoni Strips Strip See Rx Instructions .Route Qty: 50 5RF Rx Instructions: Use as directed with Beba 2 meter to monitor blood sugar up to three times daily sertraline 50 mg tablet 50 mg PO DAILY Lokelma 10 gram powder in packet 10 g PO BID-TID Qty: 180 3RF Rx Instructions: Dissolve 1 packet into specified amount of liquid two to three times daily per provider. ketoconazole 2 % cream 1 applic topical BID Qty: 30 2RF (DME) FreeStyle Beba 2 Plus Sensor Device See Rx Instructions .Route Qty: 2 5RF Rx Instructions: As directed to monitor blood sugar. Replace every 14 days. Activity Restrictions: No Restrictions Diet: Soft Health Concerns: You were admitted for a small bowel obstruction. You have an area of your colon that was not passing stool. You received medicines in the emergency department that actually got you moving and you had ample output into your ostomy bag by the time that you were admitted. You have had ongoing pain in your abdomen, that is likely unrelated to any obstructive processes you are still passing stool in your ostomy bag. Your pain in your abdomen can be treated with Tylenol, [place], and I am prescribing a medicine called Bentyl (dicyclomine). What I want you to look out for is if you are not having any output into your ostomy bag. * Gradually advance your diet as tolerated. Start with clear liquids, then progress to low-fiber, low-residue foods. Continue minced and moist foods, chop foods prior to eating. * Avoid foods known to cause blockage (e.g., raw vegetables, nuts, popcorn). It is actually fortuitous timing that you are starting your prep for ileoscopy this coming week. Please follow your surgeons instructions. * Drink plenty of fluids to prevent dehydration, especially with an ileostomy. Monitor for signs of dehydration such as dry mouth, decreased urine output, or dizziness. * Empty your ostomy pouch regularly and monitor output. High output (>1200 mL/day) may increase risk of dehydration and electrolyte imbalance. Contact your provider if output is persistently high or if you notice changes in stoma appearance (e.g., dark, dusky, or pale color). * Mild abdominal discomfort may persist. Use prescribed pain medications as directed. If pain worsens, becomes constant, or is associated with fever, vomiting, or abdominal distension, seek medical attention promptly. * Your colorectal surgeon has recommended you to be on daily MiraLAX, I have added this to your prescriptions. Return to the emergency department or contact your provider if you experience: * Severe or worsening abdominal pain * Fever, chills, or signs of infection * Persistent vomiting or inability to tolerate oral intake * No output from your ileostomy for more than 4-6 hours * Signs of dehydration (dry mouth, dizziness, decreased urine) * Blood in ostomy output or stool * Swelling, redness, or discharge around the stoma site Schedule a follow-up appointment with your surgical team within 1 week. Bring any questions or concerns about your recovery or ileostomy care. Print Language: Thai Patient Instructions: Small Bowel Obstruction, Ileostomy Dc Follow-up Care: WENDY NORRIS ARNP [Primary Care Provider, Nurse Practitioner] Vitals documented within 30 minutes of discharge?: Yes"
--- NOTE | 2025-08-16 13:21 | PROVIDER PROGRESS NOTE ---
Subjective General Admit Date: 08/15/25 Other Other Information/Narrative: Yesterday had nearly 1L of ileostomy output. Thick liquid stool in stoma back today. Denies nausea but having crampy abdominal pain. Lays in bed with eyes closed during exam/interview. Tolerating small volume meals. Review of Systems Status of ROS: 10 or more systems reviewed and unremarkable except as noted in history and below Exam Exam Vital Signs: Vital Signs x48h Temp Pulse Resp BP Pulse Ox O2 Flow Rate 08/16/25 08:20 1 08/16/25 08:17 36.2 C L 68 12 99/65 92 1 Constitutional abnormal general appearance (chronically ill) and no apparent distress [facility] normocephalic Neck/C-Spine visual inspection normal Respiratory normal respiratory effort Cardiovascular normal heart rate noted Gastrointestinal abdomen soft to palpation mildly distended, mild ttp (nonfocal) Soft/thick liquid stool in ileostomy bag Extremities normal to inspection Neurology no movement abnormality noted and GCS 15 Psychiatry mental status grossly normal and oriented x3 Skin skin color normal Impression/Plan Problem List (1) Small bowel obstruction: Plan: 65F admitted 08/14 with recurrent small bowel obstruction. On CT in the ED, transition point appeared to be within the intraadbominal ileum, rather than in the terminal ileus that is chronically incarcerated within her known parastomal hernia. Remains HDN/AF. Clinical resolution of SBO within 24hrs of admission. Ileostomy output over last 24hrs nearly 1L. No evidence of SBO at this time. - agree with trial of Bentyl for abdominal pain - Patient has planned surgery on 09/29/[address] Arzola/colorectal. Surgery to sign off, call with questions/concerns. Hoa Pinto DO, FACS General Surgeon, [facility]
[2025-08-16 14:58] VITALS: BP 112/72; TEMP 97.5; O2SAT 91
--- NOTE | 2025-08-26 09:27 | ED Physician Documentation ---
ED Addendum Addendum Addendum: Patient signed out to me at change of shift for possible obstruction at ileostomy site due to hernia, pending evaluation by surgeon on-call Dr. Pinto. Patient was evaluated by Dr. Culp who will admit the patient. The patient is agreeable to the plan. Final impression: 1. Ileostomy hernia 2. Ileostomy obstruction Disposition: Admit to surgical service in serious but stable condition. Discharge Plan Discharge Patient Disposition: 66 [facility] DC/Xfer Condition: Stable Clinical Impression: Abdominal pain Qualifiers: Abdominal location: epigastric Qualified Code(s): R10.13 - Epigastric pain Interventions: ED Admission Assessment Last Done: 08/14/25 11:30 Vitals documented within 30 minutes of discharge?: Yes
== END 2025-08-16 14:59 | disposition home or self-care (01) | DRG 389 ==
LOC: ED 02:52 → MS2 02:52
PROVIDERS: ADMIT Student in an Organized Health Care Education/Training Program; ATTEND Student in an Organized Health Care Education/Training Program
DX: I95.9 Hypotension, unspecified; Z80.9 Family history of malignant neoplasm, unspecified; I10 Essential (primary) hypertension; Z93.2 Ileostomy status; K50.90 Crohn's disease, unspecified, without complications; E16.2 Hypoglycemia, unspecified; K43.3 Parastomal hernia with obstruction, without gangrene; K56.609 Unspecified intestinal obstruction, unspecified as to partial versus complete obstruction; K43.5 Parastomal hernia without obstruction or gangrene; F10.21 Alcohol dependence, in remission; E87.5 Hyperkalemia; R40.0 Somnolence; R33.9 Retention of urine, unspecified; Z90.49 Acquired absence of other specified parts of digestive tract

== ENCOUNTER 2025-09-14 00:51 | Observation (INO) ==
--- OUTSIDE RECORDS SUMMARY | 2025-09-14 00:58 | EXTERNAL MEDICAL SUMMARY RPT | Continuity of Care Document ---
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 [facility] 2025-06-19 08:42 Sepsis due to Methic illin susceptible Staphylococcus aureus [facility] 2025-06-19 08:42 Sepsis, unspecified organism [facility] 2025-06-19 08:42 Type 2 diabetes abimbola itus with hypoglycemia without coma [facility] 2025-06-19 08:42 Hypoglycemia, unspecified [facility] 2025-06-19 08:42 Hypomagnesemia [facility] 2025-06-19 08:42 Hypo-osmolality and hyponatremi a [facility] 2025-06-19 08:42 Hyperkalemia [facility] 2025-06-19 08:42 Alcohol dependence with withdra wal, unspecified [facility] 2025-06-19 08:42 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) [facility] 2025-06-19 08:42 Major depressive dis order, recurrent severe without psychotic features [facility] 2025-06-19 08:42 Panic disorder [episodic paroxy smal anxiety] [facility] 2025-06-19 08:42 Adjustment disorder with depres sed mood [facility] 2025-06-19 08:42 Other chronic postprocedural pa in [facility] 2025-06-19 08:42 Encephalopathy, unspecified [facility] 2025-06-19 08:42 Essential (primary) hypertensio n [facility] 2025-06-19 08:42 Pneumonia, unspecified organism [facility] 2025-06-19 08:42 [facility] 2025-06-19 08:42 Parastomal hernia without obstr uction or gangrene [facility] 2025-06-19 08:42 Crohn's disease, unspecified, w ithout complications [facility] 2025-06-19 08:42 Crohn's disease, uns pecified, with unspecified complications [facility] 2025-06-19 08:42 Ulcerative colitis, unspecified, without complications [facility] 2025-06-19 08:42 Constipation, unspecified [facility] 2025-06-19 08:42 Intestinal malabsorption, unspe cified [facility] 2025-06-19 08:42 Cellulitis of right lower limb [facility] 2025-06-19 08:42 Cellulitis of unspecified part of limb [facility] 2025-06-19 08:42 Other specified soft tissue dis orders [facility] 2025-06-19 08:42 Acute cystitis without hematuri a [facility] 2025-06-19 08:42 Urinary tract infection, site n ot specified [facility] 2025-06-19 08:42 Dyspnea, unspecified [facility] 2025-06-19 08:42 Lower abdominal pain, unspecifi ed [facility] 2025-06-19 08:42 Left lower quadrant pain [facility] 2025-06-19 08:42 Generalized abdominal pain [facility] 2025-06-19 08:42 Nausea [facility] 2025-06-19 08:42 Nausea with vomiting, unspecifi ed [facility] 2025-06-19 08:42 Transient alteration of awarene ss [facility] 2025-06-19 08:42 Disorientation, unspecified i [facility] 2025-06-19 08:42 Altered mental status, unspecif ied [facility] 2025-06-19 08:42 Weakness [facility] 2025-06-19 08:42 Unspecified convulsions [facility] 2025-06-19 08:42 Shock, unspecified [facility] 2025-06-19 08:42 Severe sepsis with septic shock [facility] 2025-06-19 08:42 Abrasion of left index finger, initial encounter [facility] 2025-06-20 12:35 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 [facility] 2025-06-20 14:30 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 [facility] 2025-06-21 00:04 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 [facility] 2025-06-24 09:57 Hypoglycemia, unspecified [facility] 2025-06-24 09:57 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) [facility] 2025-06-24 09:57 Major depressive dis order, recurrent severe without psychotic features [facility] 2025-06-24 09:57 Panic disorder [episodic paroxy smal anxiety] [facility] 2025-06-24 09:57 Adjustment disorder with depres sed mood [facility] 2025-06-24 09:57 Other chronic postprocedural pa in [facility] 2025-06-24 09:57 [facility]pepsia [facility] 2025-06-24 09:57 Parastomal hernia without obstr uction or gangrene [facility] 2025-06-24 09:57 Encounter for palliative care [facility] 2025-06-24 14:50 Hypoglycemia, unspecified [facility] 2025-06-24 14:50 Hypo-osmolality and [facility]remi a [facility] 2025-06-24 14:50 Encephalopathy, unspecified [facility] 2025-06-24 14:50 Ulcerative colitis, unspecified, without complications [facility] 2025-06-24 14:50 Disorientation, unspecified [facility] 2025-06-24 14:51 Hypoglycemia, unspecified [facility] 2025-06-24 14:51 Hypo-osmolality and hyponatremi a [facility] 2025-06-24 14:51 Encephalopathy, unspecified [facility] 2025-06-24 14:51 Ulcerative colitis, unspecified, without complications [facility] 2025-06-24 14:51 Disorientation, unspecified [facility] 2025-06-24 14:52 Hypoglycemia, unspecified [facility] 2025-06-24 14:52 Hypo-osmolality and hyponatremi a [facility] 2025-06-24 14:52 Encephalopathy, unspecified [facility] 2025-06-24 14:52 Ulcerative colitis, unspecified, without complications [facility] 2025-06-24 14:52 Disorientation, unspecified [facility] 2025-06-24 14:53 [facility], [facility] 2025-06-24 14:53 Hypo-osmolality and hyponatremi a [facility] 2025-06-24 14:53 Encephalopathy, unspecified [facility] 2025-06-24 14:53 Ulcerative colitis, unspecified, without complications [facility] 2025-06-24 14:53 Disorientation, unspecified [facility] 2025-06-24 14:54 Hypoglycemia, unspecified [facility] 2025-06-24 14:54 Hypo-osmolality and hyponatremi a [facility] 2025-06-24 14:54 Encephalopathy, unspecified [facility] 2025-06-24 14:54 Ulcerative colitis, unspecified, without complications [facility] 2025-06-24 14:54 Disorientation, unspecified [facility] 2025-06-24 14:56 Hypoglycemia, unspecified [facility] 2025-06-24 14:56 Hypo-osmolality and hyponatremi a [facility] 2025-06-24 14:56 Encephalopathy, unspecified [facility] 2025-06-24 14:56 Ulcerative colitis, unspecified, without complications [facility] 2025-06-24 14:56 Disorientation, [facility] 2025-06-27 11:58 Decreased white blood cell coun t, unspecified [facility] 2025-06-27 11:58 Hypoglycemia, unspecified [facility] 2025-06-27 11:58 Hyperkalemia [facility] 2025-06-27 11:58 Bradycardia, unspecified [facility] 2025-06-27 11:58 Elevated blood-press ure reading, without diagnosis of hypertension [facility] 2025-06-27 11:58 Altered mental status, unspecif ied [facility] 2025-06-27 11:58 Hypothermia, initial encounter [facility] 2025-06-27 13:30 Sepsis, unspecified organism [facility] 2025-06-27 13:30 Hypoglycemia, unspecified [facility] 2025-06-27 13:30 Hypo-osmolality and hyponatremi a [facility] 2025-06-27 13:30 Hyperkalemia [facility] 2025-06-27 13:30 Essential (primary) hypertensio n [facility] 2025-06-27 13:30 Cellulitis of right lower limb [facility] 2025-06-27 13:30 Other specified soft tissue dis orders [facility] 2025-06-27 13:30 Lower abdominal pain, unspecifi ed [facility] 2025-06-27 13:30 Generalized abdominal pain [facility] 2025-06-27 13:30 Nausea [facility] 2025-06-27 13:48 Hypoglycemia, unspecified [facility] 2025-06-27 13:48 Essential (primary) hypertensio n [facility] 2025-06-27 13:48 Disorientation, unspecified [facility] 2025-06-27 13:53 Hypoglycemia, unspecified [facility] 2025-06-27 13:53 Essential (primary) hypertensio n [facility] 2025-06-27 13:53 Disorientation, unspecified [facility] 2025-06-27 13:54 Hypoglycemia, unspecified [facility] 2025-06-27 13:54 Essential (primary) hypertensio n [facility] 2025-06-27 13:54 Disorientation, unspecified [facility] 2025-06-27 13:55 Hypoglycemia, unspecified [facility] 2025-06-27 13:55 Essential (primary) hypertensio n [facility] 2025-06-27 13:55 Disorientation, unspecified [facility] 2025-07-03 11:12 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 [facility] 2025-07-04 10:08 Hypoglycemia, unspecified [facility] 2025-07-04 10:08 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) [facility] 2025-07-04 10:08 Major depressive dis order, recurrent severe without psychotic features [facility] 2025-07-04 10:08 Panic disorder [episodic paroxy smal anxiety] [facility] 2025-07-04 10:08 Adjustment disorder with depres sed mood [facility] 2025-07-04 10:08 Other chronic postprocedural pa in [facility] 2025-07-04 10:08 Functional dyspepsia [facility] 2025-07-04 10:08 Parastomal hernia without obstr uction or gangrene [facility] 2025-07-04 10:09 Encounter for palliative care [facility] 2025-07-15 16:14 Other generalized ep ilepsy and epileptic syndromes, [facility] 2025-07-18 12:27 Encounter for attention to ileo stomy [facility] 2025-07-18 12:27 Encounter for palliative care [facility] 2025-07-21 14:14 Hypoglycemia, unspecified [facility] 2025-07-21 14:14 Hyperkalemia [facility] 2025-07-21 14:14 Major depressive dis order, recurrent severe without psychotic features [facility] 2025-07-21 14:14 Other chronic postprocedural pa in [facility] 2025-07-21 14:14 Functional dyspepsia [facility] 2025-07-21 14:14 Parastomal hernia without obstr uction or gangrene [facility] 2025-07-21 14:14 Weakness [facility] 2025-07-21 14:14 Encounter for palliative care [facility] 2025-07-22 13:12 Encounter [facility] 2025-07-22 13:12 Encounter for palliative care [facility] 2025-07-22 14:27 Encounter for attention [facility] stomy [facility] 2025-07-22 14:27 Encounter for palliative care [facility]-22 15:21 Encounter for attention to ileo stomy [facility] 2025-07-22 15:21 Encounter for palliative care [employer] 2025-07-23 10:22 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 [facility]25-07-23 13:28 Sepsis, unspecified [facility]25-07-23 13:28 Hypoglycemia, unspecified [facility] 2025-07-23 13:28 Hyperkalemia [facility] 2025-07-23 13:28 Encephalopathy, unspecified [facility] 2025-07-23 13:28 Essential (primary) hypertensio n [facility] 2025-07-23 13:28 Crohn's disease, unspecified, w ithout complications [facility] 2025-07-23 13:28 Ulcerative colitis, unspecified, without complications [facility] 2025-07-23 13:28 Intestinal malabsorption, unspe cified [facility] 2025-07-23 13:28 Disorientation, unspecified [facility] [employer] [facility] 2025-07-23 13:28 Shock, unspecified [facility] 2025-07-23 14:25 Encounter for palliative care [facility] 2025-07-23 14:26 Hypoglycemia, unspecified [facility] [employer] [facility] 2025-07-23 14:26 Hypo-osmolality and hyponatremi a [facility] 2025-07-23 14:26 [facility]kalemia [facility] 2025-07-23 14:26 Depression, unspecified [facility] 2025-07-23 14:26 Major depressive disorder, recu rrent, moderate [facility] 2025-07-23 14:26 Adjustment insomnia [facility] 2025-07-23 14:26 Essential (primary) hypertensio n [employer] 2025-07-23 14:26 Other specified soft tissue dis orders [facility] 2025-07-23 14:27 Hypoglycemia, unspecified [facility] 2025-07-23 14:27 Hypo-osmolality and hyponatremi a [facility] 2025-07-23 14:27 Hyperkalemia [facility] 2025-07-23 14:27 Major depressive disorder, recu rrent, moderate [facility] 2025-07-23 14:27 Other chronic postprocedural pa in [facility] 2025-07-23 14:27 Essential (primary) hypertensio n [facility] 2025-07-23 14:27 Other specified soft tissue dis orders [facility] 2025-07-23 14:27 Hypothermia, subsequent encount er [facility] 2025-07-23 14:27 Encounter for palliative care [employer] [place] 2025-07-23 14:29 Encounter for palliative care [facility] 2025-07-24 11:01 Hypoglycemia, unspecified [facility] 2025-07-24 11:01 Hyperkalemia [facility] 2025-07-24 11:01 Encephalopathy, unspecified [facility] 2025-07-24 11:01 Essential (primary) hypertensio n [facility] 2025-07-24 11:01 Crohn's disease, unspecified, w ithout complications [facility] 2025-07-24 11:01 Ulcerative colitis, unspecified, without complications [facility] [place] 2025-07-24 11:01 Intestinal malabsorption, unspe cified [facility] 2025-07-24 11:01 Unspecified abdominal pain [facility] [place] 2025-07-24 11:01 Disorientation, unspecified [facility] 2025-07-24 11:01 Altered mental status, unspecif ied [facility] 2025-07-24 11:01 Weakness [facility] 2025-07-24 11:01 Shock, unspecified [facility] 2025-07-24 11:20 Sepsis, unspecified organism [facility] 2025-07-24 11:20 Hypoglycemia, unspecified [facility] 2025-07-24 11:20 Hyperkalemia [facility] 2025-07-24 11:20 Encephalopathy, unspecified [facility] 2025-07-24 11:20 Essential (primary) hypertensio n [facility] 2025-07-24 11:20 Crohn's disease, unspecified, w ithout complications [facility] 2025-07-24 11:20 Ulcerative colitis, unspecified, without complications [facility] 2025-07-24 11:20 Intestinal malabsorption, unspe cified [facility] 2025-07-24 11:20 Unspecified abdominal pain [facility] 2025-07-24 11:20 Disorientation, unspecified [facility] 2025-07-24 11:20 Altered mental status, unspecif ied [facility] 2025-07-24 11:20 Weakness [facility] 2025-07-24 11:20 Shock, unspecified [facility] 2025-07-25 15:23 Hyperkalemia [facility] 2025-07-25 15:23 Cellulitis of unspecified part of limb [facility] 2025-07-25 15:30 Right lower quadrant pain [facility] [place] 2025-07-30 10:29 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 [facility] 2025-07-30 10:30 Encounter for palliative care [facility] 2025-08-01 08:28 [facility]ized [facility] 20[facility]-01 09:58 Venous insufficiency (chronic) (peripheral) [facility] 2025-08-01 09:58 Encounter for attention to ileo stomy [facility] 2025-08-01 09:58 Encounter for palliative care [facility] 2025-08-01 10:06 Encounter for attention to ileo stomy [facility] 2025-08-01 10:06 Encounter for palliative care [facility] 2025-08-01 11:13 Hypoglycemia, unspecified [facility] 2025-08-01 11:13 Hypo-osmolality and hyponatremi a [facility] 2025-08-01 11:13 Hyperkalemia [facility] 2025-08-01 11:13 Major depressive disorder, recu rrent, moderate [facility] 2025-08-01 11:13 Other chronic postprocedural pa in [facility] 2025-08-01 11:13 Essential (primary) hypertensio n [facility] 2025-08-01 11:13 Other specified soft tissue dis orders [facility] 2025-08-01 11:13 Hypothermia, subsequent encount er [facility] 2025-08-01 11:13 Encounter for palliative care [employer] [facility] 2025-08-06 10:51 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 [facility] 2025-08-11 08:14 Localized edema [facility] 2025-08-13 09:47 Hypoglycemia, unspecified [facility] 2025-08-13 09:47 Hyperkalemia [facility] 2025-08-13 09:47 Major depressive dis order, recurrent severe without psychotic features [facility] 2025-08-13 09:47 Other chronic postprocedural pa in [facility] 2025-08-13 09:47 Functional dyspepsia [facility] 2025-08-13 09:47 Parastomal hernia without obstr uction or gangrene [facility] 2025-08-13 09:47 Weakness [facility] 2025-08-13 09:47 Encounter for palliative care [facility] 2025-08-13 12:58 Hypoglycemia, unspecified [facility] 2025-08-13 12:58 Hyperkalemia [facility] 2025-08-13 12:58 Major depressive dis order, recurrent severe without psychotic features [facility] 2025-08-13 12:58 Other chronic postprocedural pa in [facility] 2025-08-13 12:58 Functional dyspepsia [facility] 2025-08-13 12:58 Parastomal hernia without obstr uction or gangrene [facility] 2025-08-13 12:58 Weakness [facility] 2025-08-13 12:58 Encounter for palliative care [employer] [facility] 2025-08-14 11:05 Unspecified intestin al obstruction, unspecified as to partial versus complete obstruction [employer] 2025-08-14 11:18 Unspecified intestin al obstruction, unspecified as to partial versus complete obstruction [employer] 2025-08-14 11:19 Unspecified intestin al obstruction, unspecified as to partial versus complete obstruction [facility] 2025-08-14 12:39 Unspecified intestin al obstruction, unspecified as to partial versus complete obstruction [facility] 2025-08-15 17:07 Hypoglycemia, unspecified [facility] 2025-08-15 17:07 Hypotension, unspecified [employer] 2025-08-15 17:07 Crohn's disease, uns pecified, with other complication [facility] 2025-08-15 17:07 Unspecified intestin al obstruction, unspecified as to partial versus complete obstruction [facility] 2025-08-15 17:07 Epigastric pain [facility] 2025-08-15 17:07 Retention of urine, unspecified [employer] 2025-08-15 17:07 Somnolence [facility] 2025-08-15 17:07 Encounter for attention to ileo stomy [facility] 2025-08-15 17:07 Ileostomy status [facility] 2025-08-16 12:26 Hypoglycemia, unspecified [facility] 2025-08-16 12:26 Hypotension, unspecified [employer] 2025-08-16 12:26 Crohn's disease, uns pecified, with other complication [facility] 2025-08-16 12:26 Unspecified intestin al obstruction, unspecified as to partial versus complete obstruction [facility] 2025-08-16 12:26 Epigastric pain [facility] 2025-08-16 12:26 Retention of urine, unspecified [employer] 2025-08-16 12:26 Somnolence [facility] 2025-08-16 12:26 Encounter for attention to ileo stomy [facility] 2025-08-16 12:26 Ileostomy status [facility] 2025-08-16 12:32 Hypoglycemia, unspecified [employer] 2025-08-16 12:32 Hypotension, unspecified [employer] 2025-08-16 12:32 Crohn's disease, uns pecified, with other complication [employer] 2025-08-16 12:32 Unspecified intestin al obstruction, unspecified as to partial versus complete obstruction [employer] 2025-08-16 12:32 [facility] 2025-08-16 12:32 Retention of urine, unspecified [employer] 2025-08-16 12:32 Somnolence [facility] 2025-08-16 12:32 Encounter for attention to ileo stomy [facility] 2025-08-16 12:32 Ileostomy status [facility] 2025-08-16 12:42 Hypoglycemia, unspecified [facility] 2025-08-16 12:42 Hypotension, unspecified [facility] 2025-08-16 12:42 Crohn's disease, uns pecified, with other complication [facility] 2025-08-16 12:42 Unspecified intestin al obstruction, unspecified as to partial versus complete obstruction [facility] 2025-08-16 12:42 Epigastric pain [facility] 2025-08-16 12:42 Retention of urine, unspecified [facility] 2025-08-16 12:42 Somnolence [facility] 2025-08-16 12:42 Encounter for attention to ileo stomy [facility] 2025-08-16 12:42 Ileostomy status [facility] 2025-08-16 14:59 Hypoglycemia, unspecified [facility] 2025-08-16 14:59 Hypotension, unspecified [facility] 2025-08-16 14:59 Crohn's disease, uns pecified, with other complication [facility] 2025-08-16 14:59 Unspecified intestin al obstruction, unspecified as to partial versus complete obstruction [facility] 2025-08-16 14:59 Epigastric pain [facility] 2025-08-16 14:59 Retention of urine, unspecified [facility] 2025-08-16 14:59 Somnolence [facility] 2025-08-16 14:59 Encounter for attention to ileo stomy [employer] 2025-08-16 14:59 Ileostomy status [facility] 2025-08-16 15:00 Hypoglycemia, unspecified [facility] 2025-08-16 15:00 Hypotension, unspecified [facility] 2025-08-16 15:00 [facility]hn's disease, uns pecified, with other [facility] 15:00 Unspecified intestin al obstruction, unspecified as to partial versus complete obstruction [facility]25-08-16 15:00 [facility]25-08-16 15:00 Retention of urine, unspecified [facility] 2025-08-16 15:00 [facility]25-08-16 15:00 [facility]25-08-16 15:00 Ileostomy status [facility] 2025-08-18 09:35 Hypoglycemia, unspecified [facility] 2025-08-18 09:35 Hypotension, unspecified [employer] 2025-08-18 09:35 Crohn's disease, uns pecified, with other complication [facility] 2025-08-18 09:35 Unspecified intestin al obstruction, unspecified as to partial versus complete obstruction [facility] 2025-08-18 09:35 [facility] 2025-08-18 09:35 Retention of urine, unspecified [facility] 2025-08-18 09:35 [facility]nolence [facility] 2025-08-18 09:35 Encounter for attention to ileo stomy [facility] 2025-08-18 09:35 Ileostomy status [facility] 2025-08-20 13:11 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 [facility] 2025-08-20 16:31 Pneumonia, unspecified [facility] 2025-08-22 06:58 Hypoglycemia, unspecified [facility] 2025-08-22 06:58 [facility]kalemia [facility] 2025-08-22 06:58 Major depressive dis order, recurrent severe without psychotic features [facility] 2025-08-22 06:58 Other chronic [facility] pa [facility] 2025-08-22 06:58 [facility] 2025-08-22 06:58 Parastomal hernia without obstr uction or gangrene [facility] 2025-08-22 06:58 Irritant contact vik matitis due friction or contact with other specified body fluids [facility] 2025-08-22 06:58 Encounter for palliative care [facility] 2025-08-22 10:54 [facility]onia, [facility]25-08-22 10:56 Pneumonia, unspecified organism [facility] 2025-08-22 11:26 Hypoglycemia, unspecified [employer] [facility] 2025-08-22 11:26 [facility]otension, unspecified [facility] 2025-08-22 11:26 Crohn's disease, uns pecified, with other complication [facility] 2025-08-22 11:26 Unspecified intestin al obstruction, unspecified as to partial versus complete obstruction [facility] 2025-08-22 11:26 [facility]igastric [facility] 2025-08-22 11:26 Nausea with vomiting, unspecifi ed [facility] 2025-08-22 11:26 Retention of urine, unspecified [facility] 2025-08-22 11:26 [facility]ence [facility] 2025-08-22 11:26 Encounter for attention to ileo stomy [facility] 2025-08-22 11:26 [facility] status [facility] 2025-08-22 11:39 [facility]oglycemia, unspecified [facility] 2025-08-22 11:39 Hypotension, unspecified [facility] 2025-08-22 11:39 Crohn's disease, uns pecified, with other complication [facility] 2025-08-22 11:39 Unspecified intestin al obstruction, unspecified as to partial versus complete obstruction [facility] 2025-08-22 11:39 [facility]igastric pain [facility] 2025-08-22 11:39 Nausea with vomiting, unspecifi ed [facility] 2025-08-22 11:39 Retention of urine, unspecified [facility] 2025-08-22 11:39 Somnolence [facility] 2025-08-22 11:39 Encounter for attention to ileo stomy [facility] 2025-08-22 11:39 Ileostomy status [facility] 2025-08-23 00:02 Pneumonia, unspecified organism [facility] 2025-08-29 10:36 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 [facility] 2025-09-01 08:24 Unspecified abdominal pain [facility] 2025-09-01 08:24 Vomiting, unspecified [facility] 2025-09-01 14:34 Hypoglycemia, unspecified [facility] 2025-09-01 14:34 Hypo-osmolality and hyponatremi a [facility] 2025-09-01 14:34 Encephalopathy, unspecified [facility] 2025-09-01 14:34 Ulcerative colitis, unspecified, without complications [facility] 2025-09-01 14:34 Disorientation, unspecified [facility] 2025-09-02 15:39 Unspecified intestin al obstruction, unspecified as to partial versus complete obstruction [facility] 2025-09-03 16:15 Unspecified abdominal pain [facility] 2025-09-04 09:44 Unspecified abdominal pain [facility] 2025-09-04 09:44 Vomiting, unspecified [facility] 2025-09-04 09:45 Unspecified abdominal pain [facility] 2025-09-04 09:45 Vomiting, unspecified [facility] 2025-09-05 07:15 Hypoglycemia, unspecified [facility] 2025-09-05 07:15 Essential (primary) hypertensio n [facility] 2025-09-05 07:15 Disorientation, unspecified [facility] 2025-09-05 08:20 Hyperkalemia [facility] 2025-09-05 08:20 Tinnitus, bilateral formerly [facility] 2025-09-05 08:20 Essential (primary) hypertensio n [facility] 2025-09-05 08:20 Other spondylosis with radiculo luis carlos, lumbar region [facility] 2025-09-05 08:20 Acute cystitis without hematuri a [facility] 2025-09-05 08:20 Urinary tract infection, site n ot specified [facility] 2025-09-05 08:20 Chest pain, unspecified [facility] 2025-09-05 08:20 Nausea with vomiting, unspecifi ed [facility] 2025-09-05 08:20 Somnolence [facility] 2025-09-05 08:20 Disorientation, unspecified i [facility] 2025-09-05 08:20 Altered mental status, unspecif ied [facility] 2025-09-05 08:20 Restlessness and agitation [facility] 2025-09-05 08:20 [facility]ache, [facility] 08:20 Weakness [facility] 2025-09-05 08:20 Abrasion of left index finger, initial encounter [facility] 2025-09-05 08:24 Acute cystitis without hematuri a [facility] 2025-09-05 08:24 Nausea with vomiting, unspecifi ed [facility] 2025-09-05 13:51 Encounter for other preprocedur al examination [facility] 2025-09-08 08:37 Decreased white blood cell coun t, unspecified [facility] 2025-09-08 08:37 Hypoglycemia, unspecified [facility] 2025-09-08 08:37 [facility]kalemia [facility] 2025-09-08 08:37 Bradycardia, unspecified [facility] 2025-09-08 08:37 Elevated blood-press ure reading, without diagnosis of hypertension [facility] 2025-09-08 08:37 Altered mental status, unspecif ied [facility] 2025-[facility]-08 08:37 Hypothermia, initial encounter [facility] 2025-09-08 10:43 Acute cystitis without hematuri a [facility] 2025-09-08 10:43 Nausea with vomiting, unspecifi ed [facility] 2025-09-09 16:08 Pneumonia, unspecified organism [facility] 2025-09-10 13:23 Encounter for palliative care [facility] 2025-09-13 14:25 [facility]esemia [facility] 2025-09-13 14:25 Functional dyspepsia Mar[facility] 2025-09-13 14:25 Encounter for other preprocedur al examination [facility] 2025-09-13 14:26 [facility]agnesemia [facility] 2025-09-13 14:26 Functional dyspepsia jas [facility] 2025-09-13 14:26 Encounter for other preprocedur al examination [facility] 2025-09-14 00:02 Hypomagnesemia [facility] 2025-09-14 00:02 Functional dyspepsia jas [facility] 2025-09-14 00:02 Encounter for other preprocedur al examination [facility] Results/Labs test date facility value unit notes Result panel 1 BILIRUBIN,TOTAL 2025-06-16 13:12 [facility] 0.2 mg/dl As of April 2023 testing method has changed, this may include reference ranges. CREATININE 2025-06-16 13:12 [facility] 0.6 mg/dl As of April 2023 testing method has changed, this may include reference ranges. ALBUMIN/GLOBULIN RATIO 2025-06-16 13:12 [facility] 1.1 (missing) (missing) CALCIUM 2025-06-16 13:12 [facility] 10.1 mg/dl As of April 2023 testing method has changed, this may include reference ranges. GFR - MDRD 2025-06-16 13:12 [facility] 100 (missing) The IDMS-traceable MDRD Study Equation [...] last updated December 2011. CHLORIDE 2025-06-16 13:12 [facility] 104 mmol/l As of April 2023 testing method has changed, this may include reference ranges. SODIUM 2025-06-16 13:12 [facility] 136 mmol/l Unknown ALT ALANINE AMINOTRANSFERASE 2025-06-16 13:12 [facility] 17 iu/l As of April 2023 testing method has changed, this may include reference ranges. AST ASPARTATE AMINOTRANSFERASE 2025-06-16 13:12 [facility] 18 iu/l As of April 2023 testing method has changed, this may include reference ranges. BUN - BLOOD UREA NITROGEN 2025-06-16 13:12 [facility] 18 mg/dl As of April 2023 testing method has changed, this may include reference ranges. CARBON DIOXIDE - CO2 2025-06-16 13:12 [facility] [facility] 27 mmol/l As of April 2023 testing method has changed, this may include reference ranges. GLOBULIN 2025-06-16 13:12 [facility] 3.6 g/dl (missing) ALBUMIN 2025-06-16 13:12 [facility] 4.1 g/dl As of April 2023 testing method has changed, this may include reference ranges. POTASSIUM 2025-06-16 13:12 [facility] 4.5 mmol/l As of April 2023 testing method has changed, this may include reference ranges. ANION GAP 2025-06-16 13:12 [employer] 5.0 (missing) (missing) TOTAL PROTEIN 2025-06-16 13:12 [facility] 7.7 g/dl As of April 2023 testing method has changed, this may include reference ranges. GLUCOSE 2025-06-16 13:12 [facility] 76 mg/dl As of April 2023 testing method has changed, this may include reference ranges. ALKALINE PHOSPHATASE 2025-06-16 13:12 [facility] 84 iu/l As of April 2023 testing method has changed, this may include reference ranges. Result panel 2 BILIRUBIN,TOTAL 2025-06-20 12:51 [facility] 0.3 mg/dl As of April 2023 testing method has changed, this may include reference ranges. CREATININE 2025-06-20 12:51 [facility] 0.5 mg/dl As of April 2023 testing method has changed, this may include reference ranges. ALBUMIN/GLOBULIN RATIO 2025-06-20 12:51 [facility] 1.2 (missing) (missing) CALCIUM 2025-06-20 12:51 [facility] 10.0 mg/dl As of April 2023 testing method has changed, this may include reference ranges. CHLORIDE 2025-06-20 12:51 [facility] 100 mmol/l As of April 2023 testing method has changed, this may include reference ranges. GFR - MDRD 2025-06-20 12:51 [facility] 124 (missing) The IDMS-traceable MDRD Study Equation [...] last updated December 2011. SODIUM 2025-06-20 12:51 [facility] 130 mmol/l Unknown ALT ALANINE AMINOTRANSFERASE 2025-06-20 12:51 [facility] 21 iu/l As of April 2023 testing method has changed, this may include reference ranges. AST ASPARTATE AMINOTRANSFERASE 2025-06-20 12:51 [facility] 23 iu/l As of April 2023 testing method has changed, this may include reference ranges. CARBON DIOXIDE - CO2 2025-06-20 12:51 [facility] 25 mmol/l As of April 2023 testing method has changed, this may include reference ranges. BUN - BLOOD UREA NITROGEN 2025-06-20 12:51 [facility] 26 mg/dl As of April 2023 testing method has changed, this may include reference ranges. GLOBULIN 2025-06-20 12:51 [facility] [facility] 3.4 g/dl (missing) ALBUMIN 2025-06-20 12:51 [facility] 4.1 g/dl As of April 2023 testing method has changed, this may include reference ranges. ANION GAP 2025-06-20 12:51 [facility] 5.0 (missing) (missing) POTASSIUM 2025-06-20 12:51 [facility] 5.3 mmol/l As of April 2023 testing method has changed, this may include reference ranges. GLUCOSE 2025-06-20 12:51 [facility] 66 mg/dl As of April 2023 testing method has changed, this may include reference ranges. TOTAL PROTEIN 2025-06-20 12:51 [facility] 7.5 g/dl As of April 2023 testing method has changed, this may include reference ranges. ALKALINE PHOSPHATASE 2025-06-20 12:51 [facility] 83 iu/l As of April 2023 testing method has changed, this may include reference ranges. Result panel 3 BILIRUBIN,TOTAL 2025-07-01 10:55 [facility] 0.3 mg/dl As of April 2023 testing method has changed, this may include reference ranges. CREATININE 2025-07-01 10:55 [facility] 0.6 mg/dl As of April 2023 testing method has changed, this may include reference ranges. ALBUMIN/GLOBULIN RATIO 2025-07-01 10:55 [facility] 1.2 (missing) (missing) CALCIUM 2025-07-01 10:55 [facility] 10.0 mg/dl As of April 2023 testing method has changed, this may include reference ranges. GFR - MDRD 2025-07-01 10:55 [facility] 100 (missing) The IDMS-traceable MDRD Study Equation [...] last updated December 2011. CHLORIDE 2025-07-01 10:55 [facility] 105 mmol/l As of April 2023 testing method has changed, this may include reference ranges. SODIUM 2025-07-01 10:55 [facility] 136 mmol/l Unknown BUN - BLOOD UREA NITROGEN 2025-07-01 10:55 [facility] 22 mg/dl As of April 2023 testing method has changed, this may include reference ranges. CARBON DIOXIDE - CO2 2025-07-01 10:55 [facility] 28 mmol/l As of April 2023 testing method has changed, this may include reference ranges. ANION GAP 2025-07-01 10:55 [facility] 3.0 (missing) (missing) GLOBULIN 2025-07-01 10:55 [facility] 3.5 g/dl (missing) AST ASPARTATE AMINOTRANSFERASE 2025-07-01 10:55 [facility] 31 iu/l As of April 2023 testing method has changed, this may include reference ranges. ALBUMIN 2025-07-01 10:55 [facility] 4.1 g/dl As of April 2023 testing method has changed, this may include reference ranges. POTASSIUM 2025-07-01 10:55 [facility] 4.8 mmol/l As of April 2023 testing method has changed, this may include reference ranges. ALT ALANINE AMINOTRANSFERASE 2025-07-01 10:55 [facility] 44 iu/l As of April 2023 testing method has changed, this may include reference ranges. TOTAL PROTEIN 2025-07-01 10:55 [facility] 7.6 g/dl As of April 2023 testing method has changed, this may include reference ranges. GLUCOSE 2025-07-01 10: [facility] 76 mg/dl As of April 2023 testing method has changed, this may include reference ranges. ALKALINE PHOSPHATASE 2025-07-01 10:55 [facility] 84 iu/l As of April 2023 testing method has changed, this may include reference ranges. Result panel 4 BILIRUBIN,TOTAL 2025-07-22 13:32 [facility] 0.3 mg/dl As of April 2023 testing method has changed, this may include reference ranges. CREATININE 2025-07-22 13:32 [facility] 0.6 mg/dl As of April 2023 testing method has changed, this may include reference ranges. ALBUMIN/GLOBULIN RATIO 2025-07-22 13:32 [facility] [facility] 1.2 (missing) (missing) CALCIUM 2025-07-22 13:32 [facility] 10.4 mg/dl As of April 2023 testing method has changed, this may include reference ranges. GFR - MDRD 2025-07-22 13:32 [facility] 100 (missing) The IDMS-traceable MDRD Study [...] last updated December 2011. CHLORIDE 2025-07-22 13:32 [facility] 103 mmol/l As of April 2023 testing method has changed, this may include reference ranges. SODIUM 2025-07-22 13:32 [facility] 133 mmol/l Unknown AST ASPARTATE AMINOTRANSFERASE 2025-07-22 13:32 [facility] 20 iu/l As of April 2023 testing method has changed, this may include reference ranges. BUN - BLOOD UREA NITROGEN 2025-07-22 13:32 [facility] 21 mg/dl As of April 2023 testing method has changed, this may include reference ranges. ALT ALANINE AMINOTRANSFERASE 2025-07-22 13:32 [facility] 27 iu/l As of April 2023 testing method has changed, this may include reference ranges. CARBON DIOXIDE - CO2 2025-07-22 13:32 [facility] 27 mmol/l As of April 2023 testing method has changed, this may include reference ranges. ANION GAP 2025-07-22 13:32 [facility] 3.0 (missing) (missing) GLOBULIN 2025-07-22 13:32 [facility] 3.4 g/dl (missing) ALBUMIN 2025-07-22 13:32 [facility] 4.1 g/dl As of April 2023 testing method has changed, this may include reference ranges. POTASSIUM 2025-07-22 13:32 [facility] 4.6 mmol/l As of April 2023 testing method has changed, this may include reference ranges. GLUCOSE 2025-07-22 13:32 [facility] 65 mg/dl As of April 2023 testing method has changed, this may include reference ranges. TOTAL PROTEIN 2025-07-22 13:32 [facility] 7.5 g/dl As of April 2023 testing method has changed, this may include reference ranges. ALKALINE PHOSPHATASE 2025-07-22 13:32 [facility] 97 iu/l As of April 2023 testing method has changed, this may include reference ranges. Result panel 5 CRP - C-REACTIVE PROTEIN 2025-07-31 13:42 [facility] 1.0 mg/dl As of Apr testing method has changed, this may include reference ranges. ESR- ERYTHROCYTE SEDIMENT RATE 2025-07-31 13:42 [facility] 40 mm/hr (missing ) Result panel 6 BILIRUBIN,TOTAL 2025-08-04 10:50 [facility] 0.3 mg/dl As of April 2023 testing method has changed, this may include reference ranges. CREATININE 2025-08-04 10:50 [facility] 0.7 mg/dl As of April 2023 testing method has changed, this may include reference ranges. ALBUMIN/GLOBULIN RATIO 2025-08-04 10:50 [facility] 1.2 (missing) (missing) CALCIUM 2025-08-04 10:50 [facility] 10.5 mg/dl As of April 2023 testing method has changed, this may include reference ranges. CHLORIDE 2025-08-04 10:50 [facility] 109 mmol/l As of April 2023 testing method has changed, this may include reference ranges. SODIUM 2025-08-04 10:50 [facility] 137 mmol/l Unknown BUN - BLOOD UREA NITROGEN 2025-08-04 10:50 [facility] 18 mg/dl As of April 2023 testing method has changed, this may include reference ranges. AST ASPARTATE AMINOTRANSFERASE 2025-08-04 10:50 [facility] 23 iu/l As of April 2023 testing method has changed, this may include reference ranges. CARBON DIOXIDE - CO2 2025-08-04 10:50 [facility] 24 mmol/l As of April 2023 testing method has changed, this may include reference ranges. ALT ALANINE AMINOTRANSFERASE 2025-08-04 10:50 [facility] 25 iu/l As of April 2023 testing method has changed, this may include reference ranges. GLOBULIN 2025-08-04 10:50 [facility] 3.4 g/dl (missing) ANION GAP 2025-08-04 10:50 [facility] 4.0 (missing) (missing) ALBUMIN 2025-08-04 10:50 [facility] 4.0 g/dl As of April 2023 testing method has changed, this may include reference ranges. POTASSIUM 2025-08-04 10:50 [facility] 5.0 mmol/l As of April 2023 testing method has changed, this may include reference ranges. TOTAL PROTEIN 2025-08-04 10:50 [facility] 7.4 g/dl As of April 2023 testing method has changed, this may include reference ranges. GLUCOSE 2025-08-04 10:50 [facility] 70 mg/dl As of April 2023 testing method has changed, this may include reference ranges. GFR - MDRD 2025-08-04 10:50 [facility] 84 (missing) The IDMS-traceable MDRD Study Equation [...] updated December 2011. ALKALINE PHOSPHATASE 2025-08-04 10:50 [facility] 98 iu/l As of April 2023 testing method has changed, this may include reference ranges. Result panel 7 NUCLEATED RED BLOOD CELLS AUTO 2025-08-14 03:41 [facility] 0.0 /100wbc (missing) BASOPHILS # (AUTO) 2025-08-14 03:41 [facility] 0.0 10 3/ul (missing) NRBC ABSOLUTE COUNT (AUTO) 2025-08-14 03:41 [facility] 0.00 x10 3/ul (missing) EOSINOPHILS # (AUTO) 2025-08-14 03:41 [facility] 0.1 10 3/ul (missing) MONOCYTES # (AUTO) 2025-08-14 03:41 [facility] 0.3 10 3/ul (missing) BILIRUBIN,TOTAL 2025-08-14 03:41 [facility] 0.3 mg/dl As of April 2023 testing method has changed, this may include reference ranges. LYMPHOCYTES # (AUTO) 2025-08-14 03:41 [facility] 0.4 10 3/ul (missing) CREATININE 2025-08-14 03:41 [facility] 0.5 mg/dl As of April 2023 testing method has changed, this may include reference ranges. ALBUMIN/GLOBULIN RATIO 2025-08-14 03:41 [facility] 1.3 (missing) (missing) CALCIUM 2025-08-14 03:41 [facility] 10.0 mg/dl As of April 2023 testing method has changed, this may include reference ranges. HGB - HEMOGLOBIN 2025-08-14 03:41 [facility] 10.1 g/dl (missing) CHLORIDE 2025-08-14 03:41 [facility] 103 mmol/l As of April 2023 testing method has changed, this may include reference ranges. GFR - MDRD 2025-08-14 03:41 [facility] 124 (missing) The IDMS-traceable MDRD Study Equation [...] ation/gfr/creatin ine-stand ardization, last updated December 2011. RED CELL DISTRIBUTION WIDTH 2025-08-14 03:41 [facility] 13.3 % (missing) SODIUM 2025-08-14 03:41 [facility] 133 mmol/l (missing) PLT - PLATELET COUNT 2025-08-14 03:41 [facility] 152 10 3/ul (missing) BUN - BLOOD UREA NITROGEN 2025-08-14 03:41 [facility] 17 mg/dl As of April 2023 testing method has changed, this may include reference ranges. AST ASPARTATE AMINOTRANSFERASE 2025-08-14 03:41 [facility] 19 iu/l As of April 2023 testing method has changed, this may include reference ranges. GLOBULIN 2025-08-14 03:41 [facility] 2.9 g/dl (missing) ALT ALANINE AMINOTRANSFERASE 2025-08-14 03:41 [facility] 21 iu/l As of April 2023 testing method has changed, this may include reference ranges. CARBON DIOXIDE - CO2 2025-08-14 03:41 [facility] 25 mmol/l As of April 2023 testing method has changed, this may include reference ranges. RED BLOOD COUNT 2025-08-14 03:41 [facility] 3.35 10 6/ul (missing) ALBUMIN 2025-08-14 03:41 [facility] 3.9 g/dl As of April 2023 testing method has changed, this may include reference ranges. MEAN CORPUSCULAR HEMOGLOBIN 2025-08-14 03:41 [facility] 30.1 pg (missing) HCT - HEMATOCRIT 2025-08-14 03:41 [facility] 30.6 % (missing) MEAN CORPUSCULAR HGB CONC 2025-08-14 03:41 [facility] 33.0 g/dl (missing) LIPASE 2025-08-14 03:41 [facility] 34 u/l As of April 2023 testing method has changed, this may include reference ranges. NEUTROPHILS # (AUTO) 2025-08-14 03:41 [facility] 4.2 10 3/ul (missing) POTASSIUM 2025-08-14 03:41 [facility] 4.3 mmol/l As of April 2023 testing method has changed, this may include reference ranges. ANION GAP 2025-08-14 03:41 [facility] 5.0 (missing) (missing) WHITE BLOOD COUNT 2025-08-14 03:41 [facility] 5.0 x10 3/ul (missing) TOTAL PROTEIN 2025-08-14 03:41 [facility] 6.8 g/dl As of April 2023 testing method has changed, this may include reference ranges. GLUCOSE 2025-08-14 03:41 [facility] 73 mg/dl As of April 2023 testing method has changed, this may include reference ranges. ALKALINE PHOSPHATASE 2025-08-14 03:41 [facility] 88 iu/l As of April 2023 testing method has changed, this may include reference ranges. MEAN PLATELET VOLUME 2025-08-14 03:41 [facility] 9.4 fl (missing) MEAN CORPUSCULAR VOLUME 2025-08-14 03:41 [facility] 91.3 fl (missing) Result panel 8 WBC,URINE 2025-08-14 05:23 [facility] 0-3 /hpf (missing) RBC,URINE 2025-08-14 05:23 [facility] 0-5 /hpf (missing) UROBILINOGEN,URI NE 2025-08-14 05: [facility] 0.2 (NORMAL) e.u./dl (missing) SPECIFIC GRAVITY,URINE 2025-08-14 05: [facility] 1.010 (missing ) (missing) PH,URINE 2025-08-14 05:23 [facility] 6.0 ph (missing) CLARITY,URINE 2025-08-14 05:23 [facility] CLEAR (missing ) (missing) CUL, URINE 2025-08-14 05:23 [facility] CXPCULTURE IN PROGRESS. RESULTS TO FOLLOW. (missing ) (missing) SQUAMOUS EPITHELIAL CELL,UR 2025-08-14 05:23 [facility] FEW [place] (missing ) (missing) UR CULTURE IF IND 2025-08-14: [facility] INDICATED (missing ) (missing) URINE MICROSCOPIC INDICATED? 2025-08-14: [facility] INDICATED (missing ) (missing) NITRITE,URINE 2025-08-14:23 [facility] NEGATIVE (missing ) (missing) OCCULT BLOOD,URINE 2025-08-14: [facility] NEGATIVE (missing ) (missing) BILIRUBIN,URINE 2025-08-14 05:23 [facility] NEGATIVE (missing ) Bilirubin can be influenced by color interference. Please correlate positive results with clinical presentation GLUCOSE, URINE (UA) 2025-08-14:23 [facility] NEGATIVE mg/dl (missing) KETONES,URINE (UA) 2025-08-14 05:23 [facility] NEGATIVE mg/dl (missing) PROTEIN,URINE 2025-08-14 05:23 [facility] NEGATIVE mg/dl (missing) CUL, URINE 2025-08-14 05:23 [facility] [id number] COLONIES/ML Polymicrobial growth including (missing ) (missing) CUL, URINE 2025-08-14 05: [facility] [id number] . (missing ) (missing) CUL, URINE 2025-08-14: [facility] [id number] pathogens. This is suggestive of skin or other (missing ) (missing) BACTERIA,URINE 2025-08-14: [facility] Rare /hpf (missing) LEUKOCYTE ESTERASE, URINE 2025-08-14: [facility] SMALL (missing ) (missing) COLOR,URINE 2025-08-14: [facility] YELLOW (missing ) URINE CLEAN CATCH Result panel 9 GLUCOSE, WHOLE BLOOD 2025-08-14 16:37 [facility] 107 (missing) RN notified. Result panel 10 GLUCOSE, WHOLE BLOOD 2025-08-14 21:04 [facility] 110 (missing) (missing) Result panel 11 CREATININE 2025-08-15: [facility] 0.7 mg/dl As of April 2023 testing method has changed, this may include reference ranges. CHLORIDE 2025-08-15: [facility] 105 mmol/l As of April 2023 testing method has changed, this may include reference ranges. BUN - BLOOD UREA NITROGEN 2025-08-15: [facility] 11 mg/dl As of Apr testing method has changed, this may include reference ranges. RED CELL DISTRIBUTION WIDTH 2025-08-15:28 [facility] 13.9 % (mi ssing) SODIUM 2025-08-15:28 [facility] 135 mmol/l (missing) PLT - PLATELET COUNT 2025-08-15 05:28 [facility] 158 10 3/ul (missing) CARBON DIOXIDE - CO2 2025-08-15 05:28 [facility] 24 mmol/l As of April 2023 testing method has changed, this may include reference ranges. HCT - HEMATOCRIT 2025-08-15 05:28 [facility] 29.0 % (missing) RED BLOOD COUNT 2025-08-15 05:28 [facility] 3.17 10 6/ul (missing) POTASSIUM 2025-08-15 05:28 [facility] 3.8 mmol/l As of April 2023 testing method has changed, this may include reference ranges. MEAN CORPUSCULAR HEMOGLOBIN 2025-08-15 05:28 [facility] 30.3 pg (missing) MEAN CORPUSCULAR HGB CONC 2025-08-15 05:28 [facility] 33.1 g/dl (missing) WHITE BLOOD COUNT 2025-08-15 05:28 [facility] 5.7 x10 3/ul (missing) ANION GAP 2025-08-15 05:28 [facility] 6.0 (missing ) (missing) GLUCOSE 2025-08-15 05:28 [facility] 79 mg/dl As of April 2023 testing method has changed, this may include reference ranges. CALCIUM 2025-08-15 05:28 [facility] 8.6 mg/dl As of April 2023 testing method has changed, this may include reference ranges. GFR - MDRD 2025-08-15 05:28 [facility] 84 (missin g) The IDMS-traceable MDRD Study [...] caring for patients older than 70. References: http://www.nkdep.[place].gov/lab-evaluat ion/gfr/creatinine -stand ardization, last updated December 2011. HGB - HEMOGLOBIN 2025-08-15 05:28 [facility] 9.6 g /dl (missing) MEAN PLATELET VOLUME 2025-08-15 05:28 [facility] 9.7 fl (missing) MEAN CORPUSCULAR VOLUME 2025-08-15 05:28 [facility] 91.5 fl (missing) Result panel 12 GLUCOSE, WHOLE BLOOD 2025-08-15 07:59 [facility] 77 (missing) RN notified. Result panel 13 GLUCOSE, WHOLE BLOOD 2025-08-15 09:00 [facility] 81 (missing) (missing) Result panel 14 GLUCOSE, WHOLE BLOOD 2025-08-15 12:05 [facility] 77 (missing) RN notified. Result panel 15 CREATININE 2025-08-15 16:29 [facility] 0.9 mg/dl As of April 2023 testing method has changed, this may include reference ranges. LACTIC ACID, VENOUS 2025-08-15 16:29 [facility] 1.6 mmol/l N As of April 2023 testing method has changed, this may include reference ranges. CHLORIDE 2025-08-15 16:29 [facility] 106 mmol/l As of April 2023 testing method has changed, this may include reference ranges. SODIUM 2025-08-15 16:29 [facility] 134 mmol/l (missing) BUN - BLOOD UREA NITROGEN 2025-08-15 16:29 [facility] 17 mg/dl As of Apr testing method has changed, this may include reference ranges. CARBON DIOXIDE - CO2 2025-08-15 16:29 [facility] 24 mmol/l As of Apr testing method has changed, this may include reference ranges. POTASSIUM 2025-08-15 16:29 [facility] 3.7 mmol/l As of April 2023 testing method has changed, this may include reference ranges. ANION GAP 2025-08-15 16:29 [facility] 4.0 (missing ) (missing) GFR - MDRD 2025-08-15 16:29 [facility] 63 (missin g) The IDMS-traceable MDRD Study Equation [...] caring for patients older than 70. References: http://www.nkdep.nih .gov/lab-evaluation/ gfr/creatinine-stand ardization, last updated December 2011. CALCIUM 2025-08-15 16:29 [facility] 9.2 mg/dl As of April 2023 testing method has changed, this may include reference ranges. GLUCOSE 2025-08-15 16:29 [facility] 97 mg/dl As of April 2023 testing method has changed, this may include reference ranges. Result panel 16 GLUCOSE, WHOLE BLOOD 2025-08-15 16:33 [facility] 91 (missing) RN notified. Result panel 17 GLUCOSE, WHOLE BLOOD 2025-08-15 20:33 [facility] 89 (missing) RN notified. Result panel 18 CREATININE 2025-08-16 05:54 [facility] 0.7 mg/dl As of April 2023 testing method has changed, this may include reference ranges. CALCIUM 2025-08-16 05:54 [facility] 10.2 mg/dl As of April 2023 testing method has changed, this may include reference ranges. CHLORIDE 2025-08-16 05:54 [facility] 106 mmol/l As of April 2023 testing method has changed, this may include reference ranges. SODIUM 2025-08-16 05:54 [facility] 137 mmol/l (missing) BUN - BLOOD UREA NITROGEN 2025-08-16 05:54 [facility] 18 mg/dl As of Apr testing method has changed, this may include reference ranges. CARBON DIOXIDE - CO2 2025-08-16 05:54 [facility] 27 mmol/l As of Apr testing method has changed, this may include reference ranges. POTASSIUM 2025-08-16 05:54 [facility] 3.8 mmol/l As of April 2023 testing method has changed, this may include reference ranges. ANION GAP 2025-08-16 05:54 [facility] 4.0 (missing ) (missing) THYROID STIMULATING HORMONE 2025-08-16 05:54 [facility] 4.75 uiu/ml (missing) GLUCOSE 2025-08-16 05:54 [facility] 78 mg/dl As of April 2023 testing method has changed, this may include reference ranges. GFR - MDRD 2025-08-16 05:54 [facility] 84 (in g) The IDMS-traceable MDRD Study Equation has [...] caring for patients older than 70. References: http://www.nkdep.ni h.gov/lab-evaluatio n/gfr/creatinine-st and ardization, last updated December 2011. Result panel 19 GLUCOSE, WHOLE BLOOD 2025-08-16 08:08 [facility] 70 (missing) RN notified. Result panel 20 GLUCOSE, WHOLE BLOOD 2025-08-16 11:17 [facility] 88 (missing) (missing) Result panel 21 BILIRUBIN,TOTAL 2025-08-28 10:57 [facility] 0.2 mg/dl As of April 2023 testing method has changed, this may include reference ranges. CREATININE 2025-08-28 10:57 [facility] 0.5 mg/dl As of April 2023 testing method has changed, this may include reference ranges. ALBUMIN/GLOBULIN RATIO 2025-08-28 10:57 [facility] 1.0 (missing) (missing) CALCIUM 2025-08-28 10:57 [facility] 10.5 mg/dl As of April 2023 testing method has changed, this may include reference ranges. CHLORIDE 2025-08-28 10:57 [facility] 106 mmol/l As of April 2023 testing method has changed, this may include reference ranges. GFR - MDRD 2025-08-28 10:57 [facility] 124 (missing) The IDMS-traceable MDRD Study Equation [...] ine-stand ardization, last updated December 2011. SODIUM 2025-08-28 10:57 [facility] 136 mmol/l Unknown AST ASPARTATE AMINOTRANSFERASE 2025-08-28 10:57 [facility] 18 iu/l As of April 2023 testing method has changed, this may include reference ranges. BUN - BLOOD UREA NITROGEN 2025-08-28 10:57 [facility] 21 mg/dl As of April 2023 testing method has changed, this may include reference ranges. ALT ALANINE AMINOTRANSFERASE 2025-08-28 10:57 [facility] 22 iu/l As of April 2023 testing method has changed, this may include reference ranges. CARBON DIOXIDE - CO2 2025-08-28 10:57 [facility] 25 mmol/l As of April 2023 testing method has changed, this may include reference ranges. GLOBULIN 2025-08-28 10:57 [facility] 3.7 g/dl (missing) ALBUMIN 2025-08-28 10:57 [facility] 3.7 g/dl As of April 2023 testing method has changed, this may include reference ranges. POTASSIUM 2025-08-28 10:57 [facility] 4.6 mmol/l As of April 2023 testing method has changed, this may include reference ranges. ANION GAP 2025-08-28 10:57 [facility] 5.0 (missing) (missing) TOTAL PROTEIN 2025-08-28 10:57 [facility] 7.4 g/dl As of April 2023 testing method has changed, this may include reference ranges. GLUCOSE 2025-08-28 10:57 [facility] 82 mg/dl As of April 2023 testing method has changed, this may include reference ranges. ALKALINE PHOSPHATASE 2025-08-28 10:57 [facility] 97 iu/l As of April 2023 testing method has changed, this may include reference ranges. Result panel 22 GLUCOSE, WHOLE BLOOD 2025-08-28 23:26 [facility] 84 (missing) (missing) Result panel 23 NUCLEATED RED BLOOD CELLS AUTO 2025-08-28 23:53 [facility] 0.0 /100wbc (missing) BASOPHILS # (AUTO) 2025-08-28 23:53 [facility] 0.0 10 3/ul (missing) NRBC ABSOLUTE COUNT (AUTO) 2025-08-28 23:53 [facility] 0.00 x10 3/ul (missing) EOSINOPHILS # (AUTO) 2025-08-28 23:53 [facility] 0.1 10 3/ul (missing) MONOCYTES # (AUTO) 2025-08-28 23:53 [facility] 0.2 10 3/ul (missing) BILIRUBIN,TOTAL 2025-08-28 23:53 [facility] As of April 2023 testing method has changed, this may include reference ranges. LYMPHOCYTES # (AUTO) 2025-08-28 23:53 [facility] 0.4 10 3/ul (missing) CREATININE 2025-08-28 23:53 [facility] 0.5 mg/dl As of April 2023 testing method has changed, this may include reference ranges. ALBUMIN/GLOBULIN RATIO 2025-08-28 23:53 [facility] 1.1 (missing) (missing) CALCIUM 2025-08-28 23:53 [facility] 10.3 mg/dl As of April 2023 testing method has changed, this may include reference ranges. CHLORIDE 2025-08-28 23:53 [facility] 103 mmol/l As of April 2023 testing method has changed, this may include reference ranges. GFR - MDRD 2025-08-28 23:53 [facility] 124 (missing) The IDMS-traceable MDRD Study Equation [...] ation/gfr/creatin ine-stand ardization, last updated December 2011. RED CELL DISTRIBUTION WIDTH 2025-08-28 23:53 [facility] 13.8 % (missing) SODIUM 2025-08-28 23:53 [facility] 132 mmol/l (missing) LIPASE 2025-08-28 23:53 [facility] 15 u/l As of April 2023 testing method has changed, this may include reference ranges. AST ASPARTATE AMINOTRANSFERASE 2025-08-28 23:53 [facility] 16 iu/l As of April 2023 testing method has changed, this may include reference ranges. ALT ALANINE AMINOTRANSFERASE 2025-08-28 23:53 [facility] 20 iu/l As of April 2023 testing method has changed, this may include reference ranges. BUN - BLOOD UREA NITROGEN 2025-08-28 23:53 [facility] 20 mg/dl As of April 2023 testing method has changed, this may include reference ranges. CARBON DIOXIDE - CO2 2025-08-28 23:53 [facility] 23 mmol/l As of April 2023 testing method has changed, this may include reference ranges. PLT - PLATELET COUNT 2025-08-28 23:53 [facility] 255 10 3/ul (missing) RED BLOOD COUNT 2025-08-28 23:53 [facility] 3.19 10 6/ul (missing) GLOBULIN 2025-08-28 23:53 [facility] 3.2 g/dl (missing) ALBUMIN 2025-08-28 23:53 [facility] 3.6 g/dl As of April 2023 testing method has changed, this may include reference ranges. HCT - HEMATOCRIT 2025-08-28 23:53 [facility] 30.2 % (missing) MEAN CORPUSCULAR HEMOGLOBIN 2025-08-28 23:53 [facility] 30.7 pg (missing) MEAN CORPUSCULAR HGB CONC 2025-08-28 23:53 [facility] 32.5 g/dl (missing) NEUTROPHILS # (AUTO) 2025-08-28 23:53 [facility] 4.2 10 3/ul (missing) POTASSIUM 2025-08-28 23:53 [facility] 4.3 mmol/l As of April 2023 testing method has changed, this may include reference ranges. WHITE BLOOD COUNT 2025-08-28 23:53 [facility] 4.9 x10 3/ul (missing) ANION GAP 2025-08-28 23:53 [facility] 6.0 (missing) (missing) TOTAL PROTEIN 2025-08-28 23:53 [facility] 6.8 g/dl As of April 2023 testing method has changed, this may include reference ranges. MEAN PLATELET VOLUME 2025-08-28 23:53 [facility] 8.9 fl (missing) ALKALINE PHOSPHATASE 2025-08-28 23:53 [facility] 85 iu/l As of April 2023 testing method has changed, this may include reference ranges. GLUCOSE 2025-08-28 23:53 [facility] 89 mg/dl As of April 2023 testing method has changed, this may include reference ranges. HGB - HEMOGLOBIN 2025-08-28 23:53 [facility] 9.8 g/dl (missing) MEAN CORPUSCULAR VOLUME 2025-08-28 23:53 [facility] 94.7 fl (missing) Result panel 24 NUCLEATED RED BLOOD CELLS AUTO 2025-08-29 10:25 [facility] 0.0 /100wbc (missing) EOSINOPHILS # (AUTO) 2025-08-29 10:25 [facility] 0.0 10 3/ul (missing) NRBC ABSOLUTE COUNT (AUTO) 2025-08-29 10:25 [facility] 0.00 x10 3/ul (missing) BASOPHILS # (AUTO) 2025-08-29 10:25 [facility] 0.1 10 3/ul (missing) BILIRUBIN,TOTAL 2025-08-29 10:25 [facility] 0.2 mg/dl As of April 2023 testing method has changed, this may include reference ranges. LYMPHOCYTES # (AUTO) 2025-08-29 10:25 [facility] 0.3 10 3/ul (missing) MONOCYTES # (AUTO) 2025-08-29 10:25 [facility] 0.4 10 3/ul (missing) CREATININE 2025-08-29 10:25 [facility] 0.5 mg/dl As of April 2023 testing method has changed, this may include reference ranges. ALBUMIN/GLOBULIN RATIO 2025-08-29 10:25 [facility] 1.0 (missing) (missing) HGB - HEMOGLOBIN 2025-08-29 10:25 [facility] 10.0 g/dl (missing) CHLORIDE 2025-08-29 10:25 [facility] 107 mmol/l As of April 2023 testing method has changed, this may include reference ranges. GFR - MDRD 2025-08-29 10:25 [facility] 124 (missing) The IDMS-traceable MDRD Study Equation [...] ation/gfr/creatin ine-stand ardization, last updated December 2011. RED CELL DISTRIBUTION WIDTH 2025-08-29 10:25 [facility] 13.9 % (missing) SODIUM 2025-08-29 10:25 [facility] 136 mmol/l (missing) NEUTROPHILS # (AUTO) 2025-08-29 10:25 [facility] 14.1 10 3/ul (missing) AST ASPARTATE AMINOTRANSFERASE 2025-08-29 10:25 [facility] 15 iu/l As of April 2023 testing method has changed, this may include reference ranges. WHITE BLOOD COUNT 2025-08-29 10:25 [facility] 15.1 x10 3/ul (missing) BUN - BLOOD UREA NITROGEN 2025-08-29 10:25 [facility] 19 mg/dl As of April 2023 testing method has changed, this may include reference ranges. ALT ALANINE AMINOTRANSFERASE 2025-08-29 10:25 [facility] 20 iu/l As of April 2023 testing method has changed, this may include reference ranges. CARBON DIOXIDE - CO2 2025-08-29 10:25 [facility] 24 mmol/l As of April 2023 testing method has changed, this may include reference ranges. PLT - PLATELET COUNT 2025-08-29 10:25 [facility] 253 10 3/ul (missing) LIPASE 2025-08-29 10:25 [facility] 27 u/l As of April 2023 testing method has changed, this may include reference ranges. MEAN CORPUSCULAR HEMOGLOBIN 2025-08-29 10:25 [facility] 29.8 pg (missing) GLOBULIN 2025-08-29 10:25 [facility] 3.3 g/dl (missing) RED BLOOD COUNT 2025-08-29 10:25 [facility] 3.36 10 6/ul (missing) ALBUMIN 2025-08-29 10:25 [facility] 3.4 g/dl As of April 2023 testing method has changed, this may include reference ranges. POTASSIUM 2025-08-29 10:25 [facility] 3.8 mmol/l As of April 2023 testing method has changed, this may include reference ranges. MEAN CORPUSCULAR HGB CONC 2025-08-29 10:25 [facility] 31.5 g/dl (missing) HCT - HEMATOCRIT 2025-08-29 10:25 [facility] 31.7 % (missing) ANION GAP 2025-08-29 10:25 [facility] 5.0 (missing) (missing) TOTAL PROTEIN 2025-08-29 10:25 [facility] 6.7 g/dl As of April 2023 testing method has changed, this may include reference ranges. MEAN PLATELET VOLUME 2025-08-29 10:25 [facility] 8.7 fl (missing) CALCIUM 2025-08-29 10:25 [facility] 9.8 mg/dl As of April 2023 testing method has changed, this may include reference ranges. ALKALINE PHOSPHATASE 2025-08-29 10:25 [facility] 91 iu/l As of April 2023 testing method has changed, this may include reference ranges. MEAN CORPUSCULAR VOLUME 2025-08-29 10:25 [facility] 94.3 fl (missing) GLUCOSE 2025-08-29 10:25 [facility] 99 mg/dl As of April 2023 testing method has changed, this may include reference ranges. Result panel 25 UROBILINOGEN,URINE 2025-08-29 14:30 [facility] 0.2 (NORMAL) e.u./dl (missing) SPECIFIC GRAVITY,URINE 2025-08-29 14:30 [facility] 1.010 (missing) (missing) PH,URINE 2025-08-29 14:30 [facility] 6.0 ph (missing) CLARITY,URINE 2025-08-29 14:30 [facility] CLEAR (missing) (missing) LEUKOCYTE ESTERASE, URINE 2025-08-29 14:30 [facility] NEGATIVE (missing) (missing) NITRITE,URINE 2025-08-29 14:30 [facility] NEGATIVE (missing) (missing) OCCULT BLOOD,URINE 2025-08-29 14:30 [facility] NEGATIVE (missing) (missing) BILIRUBIN,URINE 2025-08-29 14:30 [facility] NEGATIVE (missing) Bilirubin can be influenced by color interference. Please correlate positive results with clinical presentation GLUCOSE, URINE (UA) 2025-08-29 14:30 [facility] NEGATIVE mg/dl (missing) KETONES,URINE (UA) 2025-08-29 14:30 [facility] NEGATIVE mg/dl (missing) PROTEIN,URINE 2025-08-29 14:30 [facility] NEGATIVE mg/dl (missing) UR CULTURE IF IND 2025-08-29 14:30 [facility] NOT INDICATED (missing) (missing) URINE MICROSCOPIC INDICATED? 2025-08-29 14:30 [facility] NOT INDICATED (missing) (missing) COLOR,URINE 2025-08-29 14:30 [facility] YELLOW (missing) URINE RANDOM Result panel 26 NUCLEATED RED BLOOD CELLS AUTO 2025-09-13 14:46 [facility] 0.0 /100wbc (missing) BASOPHILS # (AUTO) 2025-09-13 14:46 [facility] 0.0 10 3/ul (missing) NRBC ABSOLUTE COUNT (AUTO) 2025-09-13 14:46 [facility] 0.00 x10 3/ul (missing) EOSINOPHILS # (AUTO) 2025-09-13 14:46 [facility] 0.1 10 3/ul (missing) MONOCYTES # (AUTO) 2025-09-13 14:46 [facility] 0.1 10 3/ul (missing) LYMPHOCYTES # (AUTO) 2025-09-13 14:46 [facility] 0.5 10 3/ul (missing) FREE T4 (FREE THYROXINE) 2025-09-13 14:46 [facility] 0.71 ng/dl Biotin at >10 ng/mL concentration may cause significant interference. MAGNESIUM 2025-09-13 14:46 [facility] 1.3 mg/dl As of April 2023 testing method has changed, this may include reference ranges. NEUTROPHILS # (AUTO) 2025-09-13 14:46 [facility] 1.6 10 3/ul (missing) MEAN PLATELET VOLUME 2025-09-13 14:46 [facility] 10.1 fl (missing) HGB - HEMOGLOBIN 2025-09-13 14:46 [facility] 10.1 g/dl (missing) PLT - PLATELET COUNT 2025-09-13 14:46 [facility] 131 10 3/ul (missing) IRON 2025-09-13 14:46 [facility] 139 ug/dl As of April 2023 testing method has changed, this may include reference ranges. RED CELL DISTRIBUTION WIDTH 2025-09-13 14:46 [facility] 14.7 % (missing) WHITE BLOOD COUNT 2025-09-13 14:46 [facility] 2.4 x10 3/ul (missing) FERRITIN 2025-09-13 14:46 [facility] 202.9 ng/ml (missing) TRANSFERRIN 2025-09-13 14:46 [facility] 233 mg/dl As of April 2023 testing method has changed, this may include reference ranges. MEAN CORPUSCULAR HEMOGLOBIN 2025-09-13 14:46 [facility] 29.4 pg (missing) RED BLOOD COUNT 2025-09-13 14:46 [facility] 3.44 10 6/ul (missing) MEAN CORPUSCULAR HGB CONC 2025-09-13 14:46 [facility] 31.0 g/dl (missing) HCT - HEMATOCRIT 2025-09-13 14:46 [facility] 32.6 % (missing) TOTAL IRON BINDING CAPACITY 2025-09-13 14:46 [facility] 326 ug/dl (missing) % IRON SATURATION 2025-09-13 14:46 [facility] 43 % (missing) THYROID STIMULATING HORMONE 2025-09-13 14:46 [facility] 7.69 uiu/ml (missing) MEAN CORPUSCULAR VOLUME 2025-09-13 14:46 [facility] 94.8 fl (missing) SLIDE REVIEW? 2025-09-13 14:46 [facility] Indicated (missing) (missing) PLATELET ESTIMATE, MANUAL 2025-09-13 14:46 [facility] NORMAL ([id number],000) (missing) (missing) PLATELET MORPHOLOGY 2025-09-13 14:46 [facility] NORMAL APPEARANCE (missing) (missing) RBC MORPHOLOGY (MULTIPLE) 2025-09-13 14:46 [facility] NORMAL APPEARANCE (missing) (missing) [facility] MORPHOLOGY (MULTIPLE) 2025-09-13 14:46 [employer] NORMAL APPEARANCE (missing) (missing) Social History date description facility
--- NOTE | 2025-09-14 02:22 | ED Physician Documentation ---
History of Present Illness Stated complaint Stated Complaint: CONFUSED Chief complaint Chief Complaint: Neuro Additonal information Additional information: HPI from patient as well as her spouse. HPI/ROS limited by patient's altered mental status. Patient says to me "I am kind of confused". When asked to elaborate, the patient is unable to do so, including time of onset. Many of her attempted answers to my questions and with patient unable to provide meaningful content in her answers and frequently ending with patient getting up on trying to describe symptoms. Patient's says that since Monday morning (09/13), she has exhibited steadily progressive confusion, increasingly unsteady and slowing gait. Patient's gives examples of her putting their coffee pot and it appropriate place in the kitchen, subsequently was getting ready for bed and then was walking around the house without clothes; indicates this is not her baseline mental status which is AAOx3 without any confusion whatsoever. He says that he tried to reorient her and guided her back into the bedroom but she subsequently again was wandering around the house not wearing any clothes. Patient is also C/O generalized abdominal pain with nausea and vomiting; she is again unable to elaborate on other aspects such as severity, location, timing. PMHx includes Crohn's disease, ileostomy. Patient had outpatient blood tests yesterday; indicates these are un dertaken on weekly basis due to h/o hyperkalemia and yesterday's testing (CBC, TSH) were on this routine basis. [place] Coma Scale Assess Eye opening: Spontaneous Verbal response: Oriented Motor response: Obeys Commands Total score: 15 Meds/Allgy Home Medications Ambulatory Orders Medication Instructions Recorded Confirmed amlodipine 5 mg tablet 5 mg PO DAILY 06/24/2408/28 levothyroxine 25 mcg tablet 25 mcg PO DAILY 01/08/25 1 thiamine mononitrate (vit B1) 100 100 mg PO DAILY 12/2808/28/25 mg tablet food supplemt, lactose-reduced 1 ea PO QID PRN low blo od sugar 03/06/25 08/28/25 (Ensure oral liquid) #237 mL glucose 2 gram chewable tablet 6 g (3 x 2 gram) PO QID PRN low 03/06/25 08/28/25 blood sugar #100 tabs doxazosin 1 mg tablet (Cardura) 1 mg PO QPM 03/14/25 1 hydrocodone 5 mg-acetaminophen 325 0.5 - 1 tab PO BID PRN severe pain 03/14/25 08/28/25 mg tablet #20 tabs magnesium oxide 400 mg (241.3 mg 400 mg PO BID #60 tab s 05/05/25 08/28/25 magnesium) tablet pantoprazole 40 mg tablet,delayed 40 mg PO QDAC #30 ta bs 05/05/25 08/28/25 release acetaminophen 500 mg tablet 500 - 1,000 mg PO BID PRN pain 05/13/25 08/28/25 cholecalciferol (vitamin D3) 25 50 mcg PO DAILY 08/28/25 mcg (1,000 unit) capsule (Vitamin D3) sodium chloride 1,000 mg soluble 1,000 mg PO TID 05/1308/28/25 tablet blood sugar diagnostic (FreeStyle #50 ea 07/09/2508/01 Precision Yoni Strips) blood-glucose sensor (FreeStyle #2 ea 08/12/25 5 Beba 2 Plus Sensor device) ketoconazole 2 % topical cream 1 applic topical BID #3 0 grams 08/12/25 08/28/25 sertraline 50 mg tablet 50 mg PO DAILY 08/12/2508/01 dicyclomine 10 mg capsule 10 mg PO QID PRN Abdominal P ain 08/16/25 08/28/25 #30 caps polyethylene glycol 3350 17 gram 17 g PO DAILY #30 ea 08/16/25 08/28/25 oral powder packet Allergies Allergies Allergy/AdvReac Type Severity Reaction Status Date / Time Penicillins Allergy Anaphylaxis Verified 09/14/25 01:03 vancomycin Allergy Rash Verified 09/14/25 01:03 ciprofloxacin (From Cipro) AdvReac Intermediate Dizziness Verified 09/14/25 01:03 methocarbamol AdvReac Dizziness Verified 09/14/25 01:03 [facility] Active Problems All Active Problems (Updated 09/14/25 @ 08:10 by Donn Huerta MD) Altered mental status (Acute) Leukocytosis (Acute) Constipation (Chronic) Abdominal pain (Acute) Urinary retention (Acute) Hypotension (Acute) Somnolence (Acute) Crohn disease (Chronic) Abdominal pain (Acute) Contact dermatitis (Acute) Contact dermatitis due to feces (Acute) Grief (Acute) Ileostomy in place (Acute) Encounter for attention to ileostomy (Acute) Delayed gastric emptying (Acute) Hypomagnesemia (Acute) Flashbacks (Acute) Allergic conjunctivitis (Acute) Panic attack (Acute) Hyperkalemia (Acute) Hypothermia (Acute) Chronic pain (Acute) Depression (Acute) Parastomal hernia (Acute) Swelling of right lower extremity (Acute) Malabsorption (Acute) Weakness (Acute) Medical History Medical History (Updated 09/14/25 @ 08:10 by Donn Huerta MD) Insomnia Problem List clean-up per request of Phys. EHR Cmte Cellulitis of right leg Leukopenia Thrombocytopenia Chronic hyperkalemia History of seizure related to alcohol withdrawal Crohn disease Alcohol dependence in remission UTI (urinary tract infection) Surgical History Surgical History H/O colectomy with end ileostomy at age 13 Hx of neck surgery for an epidural abscess Hx of hernia repair parastomal Family History Family History (Updated 08/14/25 @ 12:20 by Adan Deng RN) Mother Dementia Cancer Sister Cancer Social History Social History (Updated 08/14/25 @ 12:20 by Adan Deng RN) Smoking Status: Smoker with current status unk Second hand tobacco smoke exposure: No Do you dip or chew tobacco?: No Do you vape?: No Patient requests smoking cessation consult: No Initiate information on smoking cessation: No Living arrangement: At home Living Condition: With spouse/s.o. 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 Service: No POLST Patient has POLST: Yes POLST CPR Status: Attempt Resuscitation (CPR) Level of Medical Intervention: Full Treatment Exam Exam Vital Signs: Vital Signs x48h Temp Pulse Resp BP Pulse Ox 09/14/25 00:53 36.1 C L 74 20 167/101 H 96 Constitutional normal general appearance, no apparent distress and alert AAOx3, difficulty with completing most thoughts/sentences Respiratory breath sounds equal bilaterally and clear to auscultation bilaterally Cardiovascular normal heart rate noted and regular rhythm noted Gastrointestinal abdomen soft to palpation, nontender to palpation, nondistended and normoactive bowel sounds ileostomy in place, non tender throughout abdomen. normal-appearing stool in ostomy bag, no grossly visible nor palpable hernia Neurology regular senior care provider II-XII intact, no movement abnormality noted, no focal motor deficit noted and GCS calculation - Eye opening: Spontaneous Verbal response: Oriented Motor response: Obeys Commands [place] Coma Scale total score: 15 clear speech, answers orientation questions correctly, difficulty with completing most sentences/thoughts Psychiatry oriented x3 and memory abnormal (short term memory loss) Skin skin color normal Results Vitals Vitals: Vital Signs - 24 hr 09/14/25 00:53 Temperature 36.1 C L Temperature Source Temporal Artery Scan Pulse Rate 74 Respiratory Rate 20 Blood Pressure 167/101 H O2 Saturation 96 Pain Intensity 0 Oxygen O2 Source Room air Labs Labs: Laboratory Tests 09/14/25 01:01 POC Whole Bld Glucose 77 Rads (name of study) CTH: Relevant Findings:: Prelim report reviewed and See rad report CT A/P with IV and PO contrast: Relevant Findings:: Prelim report reviewed and See rad report PD Medical Decision Making ED course Complexity details: reviewed old records, reviewed results, re-evaluated patient, considered differential, d/w patient and d/w family ED course: Pancytopenia on CBC with WBC 4.6, hemoglobin 9.9, platelets 123. Hyperkalemia (K5.6) with repeat potassium 5.4 without specific intervention. Mildly elevated lipase (118), normal LFTs. Blood sugar is normal (145). Reviewed the results of yesterday's outpatient testing, comparable CBC results (yesterday's WBC 2.4), hypomagnesemia (1.3), mildly elevated TSH but normal direct free T4. JESUS form reflects 23 ED visits to 3 different emergency departments over the past 12 months with multiple inpatient stays, as well. Wilbert form reflects a wide range of diagnoses (unclear if these were suspected, acute, or chronic diagnoses). Looking at previous results in [facility], She has had several previous episodes of hyperkalemia along with leukopenia. Tonight's CTH, CT A/P are unremarkable (including p.o. contrast following t hrough the small bowel into her ileostomy bag). Given 4mg IV morphine sulfate early in ED stay which resulted in resolution of her abdominal pain, although (consistent with her c/o AMS), she does not seem to recall having had abdominal pain when I reevaluate her later in ED stay. On multiple reevaluations during ED stay on my shift, patient is still able to answer orientation questions accurately, but persistent and significant difficulty with short-term memory, resulting in her again having difficulty completing most of her sentences/thoughts. Patient's indicates this is not her baseline mental status, that she has had similar episodes in the past, uncertain etiology per patient/. At the end of my shift, care patient is signed out to the oncoming ED physician (Dr. Huerta) pending [facility] results, and likely admit to [facility] once a bed becomes available (versus consider discharge if patient completely returns to baseline mental status without any other concerning significant symptoms (such as recurrence of abdominal pain). Discharge Plan Discharge Patient Disposition: ED Place in Observation Condition: Stable Clinical Impression: Altered mental status, Hyperkalemia Prescriptions: No Action amlodipine 5 MG tablet 5 mg PO DAILY Patient Comments: take 1 tablet by mouth once daily thiamine mononitrate (vit B1) 100 mg tablet 100 mg PO DAILY levothyroxine 25 mcg tablet 25 mcg PO DAILY cholecalciferol (vitamin D3) [Vitamin D3] 25 mcg (1,000 unit) capsule 50 mcg PO DAILY magnesium oxide 400 mg (241.3 mg magnesium) Tablet 400 mg PO BID Qty: 60 0RF pantoprazole 40 mg Tablet,Delayed Release (Dr/Ec) 40 mg PO QDAC Qty: 30 0RF acetaminophen 500 mg tablet 500 - 1,000 mg PO BID PRN (Reason: pain) polyethylene glycol 3350 17 gram Powder In Packet 17 g PO DAILY Qty: 30 0RF dicyclomine 10 mg Capsule 10 mg PO QID PRN (Reason: Abdominal Pain) Qty: 30 0RF Ensure Liquid 1 ea PO QID PRN (Reason: low blood sugar) Qty: 237 0RF glucose 2 gram tablet,chewable 6 g PO QID PRN (Reason: low blood sugar) Qty: 100 0RF doxazosin [Cardura] 1 mg tablet 1 mg PO QPM hydrocodone-acetaminophen 5-325 mg tablet 0.5 - 1 tab PO BID PRN (Reason: severe pain ) Qty: 20 0RF sodium chloride 1,000 mg tablet,soluble 1,000 mg PO TID (DME) FreeStyle Precision Yoni Strips Strip See Rx Instructions .Route Qty: 50 5RF Rx Instructions: Use as directed with Beba 2 meter to monitor blood sugar up to three times daily sertraline 50 mg tablet 50 mg PO DAILY ketoconazole 2 % cream 1 applic topical BID Qty: 30 2RF (DME) FreeStyle Beba 2 Plus Sensor Device See Rx Instructions .Route Qty: 2 5RF Rx Instructions: As directed to monitor blood sugar. Replace every 14 days. Print Language: Iranian Stand Alone Forms: PCP List
[2025-09-14 02:51] LABS: HCT - HEMATOCRIT 30.2 % (37.0-47.0); HGB - HEMOGLOBIN 9.9 g/dL (12.0-16.0); MEAN PLATELET VOLUME 9.3 fL (7.9-10.8); NRBC ABSOLUTE COUNT (AUTO) 0.00 x10^3/uL; NUCLEATED RED BLOOD CELLS AUTO 0.0 /100WBC; PLT - PLATELET COUNT 123 10^3/uL (130-450); RED CELL DISTRIBUTION WIDTH 14.6 % (12.0-15.0)
[2025-09-14] MEDS ORDERED: MORPHINE 10 MG/ML VIAL IVP STA (03:00)
[2025-09-14 03:12] LABS: ALT ALANINE AMINOTRANSFERASE 21.0 IU/L (10-60); AST ASPARTATE AMINOTRANSFERASE 24.0 IU/L (10-42); BUN - BLOOD UREA NITROGEN 22.0 mg/dL (6-20); CARBON DIOXIDE - CO2 19.0 mmol/L (21-32); CREATININE 0.6 mg/dL (0.6-1.3); GFR - MDRD 100.0 (>89)
[2025-09-14] MEDS ORDERED: DIATRIZOATE MEGLU/DIATRIZO SOD 30 ML BOTTLE ONE (03:13)
[2025-09-14] MEDS: MORPHINE 4 MG/ML VIAL IVP STA (03:15)
[2025-09-14] MEDS: ONDANSETRON 4 MG/2 ML VIAL IVP STA (03:15)
[2025-09-14] MEDS: SODIUM CHLORIDE 0.9% 1,000 ML IV STA (03:15)
[2025-09-14] MEDS: DIATRIZOATE MEGLU/DIATRIZO SOD 30 ML BOTTLE PO ONE (05:22)
--- NOTE | 2025-09-14 07:28 | ED Physician Documentation ---
ED Addendum Addendum Addendum: Care from Dr. Garvey at 7 AM shift change. Briefly this 65-year-old woman with recurrent unexplained encephalopathy who is encephalopathic since yesterday. Workup thus far has been unrevealing with negative cranial imaging, unchanged CT of the abdomen, moderate chronic anemia, mild acidosis and hyperkalemia improved, mild hyperglycemia. At shift change we are pending a urinalysis and I will reevaluate her at that time for consideration of admission. Her urinalysis is unremarkable. On reexamination at about 8 AM she remains encephalopathic and is desirous of an observation stay for same. Decision to admit at 8:10 AM, no bed available in the hospital currently so she is boarding in the emergency department. I was notified around 2:15 PM that a bed had opened up on the floor and spoke with Dr. Bernal for admission at that time. Discharge Plan Discharge Patient Disposition: ED Place in Observation Condition: Stable Clinical Impression: Altered mental status, Hyperkalemia Prescriptions: No Action amlodipine 5 MG tablet 5 mg PO DAILY Patient Comments: take 1 tablet by mouth once daily thiamine mononitrate (vit B1) 100 mg tablet 100 mg PO DAILY levothyroxine 25 mcg tablet 25 mcg PO DAILY cholecalciferol (vitamin D3) [Vitamin D3] 25 mcg (1,000 unit) capsule 50 mcg PO DAILY magnesium oxide 400 mg (241.3 mg magnesium) Tablet 400 mg PO BID Qty: 60 0RF pantoprazole 40 mg Tablet,Delayed Release (Dr/Ec) 40 mg PO QDAC Qty: 30 0RF acetaminophen 500 mg tablet 500 - 1,000 mg PO BID PRN (Reason: pain) polyethylene glycol 3350 17 gram Powder In Packet 17 g PO DAILY Qty: 30 0RF dicyclomine 10 mg Capsule 10 mg PO QID PRN (Reason: Abdominal Pain) Qty: 30 0RF cetirizine [24Hour Allergy] 10 mg tablet 10 mg PO DAILY PRN (Reason: allergy symptoms) Desitin 40 % paste 1 applic topical DAILY hydroxyzine pamoate [Vistaril] 25 mg capsule 25 mg PO Q8H PRN (Reason: itching) Lokelma 10 gram powder in packet 10 g PO DAILY polyethylene glycol 3350 [ClearLax] 17 gram/dose powder 4 g PO DAILY mupirocin [Centany] 2 % ointment 1 applic topical BID nystatin 100,000 unit/gram cream 1 applic topical BID terbinafine 1 % gel topical Ensure Liquid 1 ea PO QID PRN (Reason: low blood sugar) Qty: 237 0RF glucose 2 gram tablet,chewable 6 g PO QID PRN (Reason: low blood sugar) Qty: 100 0RF doxazosin [Cardura] 1 mg tablet 1 mg PO QPM hydrocodone-acetaminophen 5-325 mg tablet 0.5 - 1 tab PO BID PRN (Reason: severe pain ) Qty: 20 0RF sodium chloride 1,000 mg tablet,soluble 1,000 mg PO TID (DME) FreeStyle Precision Yoni Strips Strip See Rx Instructions .Route Qty: 50 5RF Rx Instructions: Use as directed with Beba 2 meter to monitor blood sugar up to three times daily sertraline 50 mg tablet 50 mg PO DAILY (DME) FreeStyle Beba 2 Plus Sensor Device See Rx Instructions .Route Qty: 2 5RF Rx Instructions: As directed to monitor blood sugar. Replace every 14 days. Print Language: [place] Citizen Stand Alone Forms: PCP List
[2025-09-14 07:49] LABS: GLUCOSE, URINE (UA) NEGATIVE (NEGATIVE); KETONES,URINE (UA) NEGATIVE (NEGATIVE); OCCULT BLOOD,URINE NEGATIVE (NEGATIVE)
[2025-09-14] MEDS ORDERED: ACETAMINOPHEN 500 MG TABLET PO PRN (08:12)
[2025-09-14] MEDS: THIAMINE 100 MG TABLET PO SCH (08:47)
[2025-09-14] MEDS: MULTIVITAMIN TABLET PO SCH (08:47)
[2025-09-14] MEDS: PANTOPRAZOLE 40 MG TABLET PO SCH (08:47)
[2025-09-14] MEDS: SODIUM ZIRCONIUM CYCLOSILICATE 5 GM PACKET PO SCH (08:47)
[2025-09-14] MEDS: LEVOTHYROXINE 25 MCG TABLET PO SCH (08:47)
[2025-09-14] MEDS: SODIUM CHLORIDE 1 GM TABLET PO SCH (08:48)
--- NOTE | 2025-09-14 09:45 | CT Report ---
PROCEDURE: CT Head WO INDICATIONS: AMS TECHNIQUE: CT of the head was performed, without intravenous contrast. Reformats: Coronal and sagittal. For radiation dose reduction, the following was used: automated exposure control, adjustment of mA and/or kV according to patient size. COMPARISON: None. FINDINGS: Image quality: Diagnostic. CSF spaces: Basal cisterns are patent. No extra-axial fluid collections. Ventricles are normal in size and shape. Brain: No midline shift. No intracranial mass effect or hemorrhage. Gilmore- white matter interface is normal. Skull and face: Calvarium and visualized facial bones are intact, without suspicious lesions. Sinuses: Visualized sinuses and mastoids are clear. IMPRESSION: No acute intracranial pathology. Findings are concordant with preliminary interpretation provided by [facility]. Reviewed by: Will Schmid MD on 09/14/2025 8:42 AM [facility] Approved by: Will Schmid MD on 09/14/2025 8:42 AM [facility] Station ID: [id number]
--- NOTE | 2025-09-14 10:12 | CT Report ---
PROCEDURE: CT Abdomen/Pelvis W INDICATIONS: abd. pain CONTRAST: Oral contrast was administered. 100 ML OMNI 300 TECHNIQUE: After the administration of intravenous contrast, a CT scan of the abdomen and pelvis was performed. Images were recorded and evaluated at appropriate window settings. Reformats: coronal and sagittal. For radiation dose reduction, the following was used: automated exposure control, adjustment of mA and/or kV according to patient size. COMPARISON: August 28, 2025 FINDINGS: Image quality: Diagnostic. Lower chest: Bibasilar tree-in-bud nodularity with slight right lower lobe atelectasis. Liver: No solid mass. Gallbladder: No radiopaque stones or wall thickening. Biliary tree: No intrahepatic or extrahepatic dilation, accounting for age. Spleen: No splenomegaly. Pancreas: Fatty atrophy of the pancreas. Adrenals: No adrenal nodule. Kidneys and ureters: No hydronephrosis. No renal cystic lesion which requires follow up. No solid mass. Stomach, bowel and peritoneum: Oral contrast is seen throughout the stomach and small bowel with passage into the ostomy bag. There is a small parastomal hernia containing loop of small bowel with questionable wall reduced from to comparison. The patient is status post colectomy Lymph nodes: No central or retroperitoneal adenopathy. Vessels: No infrarenal aortic aneurysm. Patent portal vein. PELVIS Reproductive organs: Unremarkable. Bladder: Dilated bladder. Pelvic lymph nodes: No pelvic adenopathy by size criteria. Bones: No aggressive osseous abnormality. Other: No significant ventral or inguinal hernia. IMPRESSION: No acute findings in the abdomen or pelvis to explain patient's symptoms. Bibasilar tree-in-bud opacities concerning for infection, slightly improved from comparison. Passage of contrast through to the ostomy bag without obstruction. Slightly thickened bowel wall within a parastomal hernia. Marked dilation of the bladder without wall thickening Findings are concordant with preliminary interpretation provided by [facility]. Reviewed by: Will Schmid MD on 09/14/2025 9:08 AM [facility] Approved by: Will Schmid MD on 09/14/2025 9:08 AM [facility] Station ID: [id number]
--- NOTE | 2025-09-14 14:31 | HISTORY & PHYSICAL EXAMINATION ---
Chief Complaint Chief Complaint Chief Complaint: Encephalopathy History of Present Illness Admitted From Admitted From:: ED History Obtained From Records Reviewed: [facility] History obtained from: , EMR Exam Limitations: Patient persistently encephalopathic History of Present Illness HPI Comment/Other: This is a 65-year-old female with past medical history notable for IBD with longstanding ostomy and known parastomal hernia, chronic hyperkalemia, recurrent hypoglycemia, anxiety, hypertension and frequent admissions over the last year. She presents after having acute encephalopathy. She has a history notable for recurrent abdominal pain and intermittent small bowel obstructions. The last time she was admitted, it was noted that she was scheduled for colorectal surgery in [place] in September. She was supposed to get a scope of her ostomy last month, but was unable to attend due to pneumonia she got prior to the procedure. Her fill record is consistent with antibiotics. She is still planning for procedure on September [address] Arzola. Since her last discharge in July, she was seen in the ED with decreased output from stoma on right abdominal pain on . She had not taken her MiraLAX that day. CT scan did not show an obstruction. She was instructed to resume her miralax and symptoms improved. She was brought in yesterday for increased confusion. reports steady progressive confusion since the AM of 09/13. Unsteady, slow gait. She had unusual behavior. She was putting things away weird in the kitchen. She later came out of the bedroom unclothed. Both are unusual behaviors for her. She is normally oriented x 3. Her shares that she has been a little bit off all day throughout Monday. Reportedly a normal night of sleep beforehand. She has been sleeping better since she was started on nightly magnesium with her primary care doctor. Mood has been better since starting on sertraline. She does not think she has used any cetirizine recently. Awaiting med rec. Regardless, by the time she reached the ED, she was normalizing somewhat. She still somewhat slow to respond to questions, but she is not behaving strangely. On my interview, she keeps her eyes mostly closed. She opens occasionally. She is able to answer all my questions, though her frequently interrupts her. Patient denies any fevers or chills, chest pain, dyspnea, nausea or vomiting. Ostomy output is more solid than typical, but present. Denies dysuria. In the ED nothing overtly abnormal on her workup so far. She has no leukocytosis. No other localizing signs of infection. Chloride of 19. Potassium 5.6 which improved to 5.3. Her blood glucose 145 in the ED. Lipase is elevated at 118 and her TSH is 7.7 with free T4 of 0.71. Patient is full code. Recent full code POLST reviewed. She follows with palliative care. Meds/Allgy Home Medications Ambulatory Orders Medication Instructions Recorded Confirmed amlodipine 5 mg tablet 5 mg PO DAILY 06/24/2409/14 levothyroxine 25 mcg tablet 25 mcg PO DAILY 01/08/25 1 11/14/24 thiamine mononitrate (vit B1) 100 100 mg PO DAILY 12/2809/14/25 mg tablet food supplemt, lactose-reduced 1 ea PO QID PRN low blo od sugar 03/06/25 09/14/25 (Ensure oral liquid) #237 mL glucose 2 gram chewable tablet 6 g (3 x 2 gram) PO QID PRN low 03/06/25 09/14/25 blood sugar #100 tabs doxazosin 1 mg tablet (Cardura) 1 mg PO QPM 03/14/25 1 11/14/24 hydrocodone 5 mg-acetaminophen 325 0.5 - 1 tab PO BID PRN severe pain 03/14/25 09/14/25 mg tablet #20 tabs magnesium oxide 400 mg (241.3 mg 400 mg PO BID #60 tab s 05/05/25 09/14/25 magnesium) tablet pantoprazole 40 mg tablet,delayed 40 mg PO QDAC #30 ta bs 05/05/25 09/14/25 release acetaminophen 500 mg tablet 500 - 1,000 mg PO BID PRN pain 05/13/25 09/14/25 cholecalciferol (vitamin D3) 25 50 mcg PO DAILY 09/14/25 mcg (1,000 unit) capsule (Vitamin D3) sodium chloride 1,000 mg soluble 1,000 mg PO TID 05/1309/14/25 tablet blood sugar diagnostic (FreeStyle #50 ea 07/09/25 10 Precision Yoni Strips) blood-glucose sensor (FreeStyle #2 ea 08/12/2508/28/ 5 Beba 2 Plus Sensor device) sertraline 50 mg tablet 50 mg PO DAILY 08/12/2508/30 dicyclomine 10 mg capsule 10 mg PO QID PRN Abdominal P ain 08/16/25 09/14/25 #30 caps polyethylene glycol 3350 17 gram 17 g PO DAILY #30 ea 08/16/25 09/14/25 oral powder packet cetirizine 10 mg tablet (24Hour 10 mg PO DAILY PRN all ergy symptoms 09/14/25 09/14/25 Allergy) hydroxyzine pamoate 25 mg capsule 25 mg PO Q8H PRN itc maureen 09/14/25 09/14/25 (Vistaril) mupirocin 2 % topical ointment 1 applic topical BID 09/14/25 (Centany) nystatin 100,000 unit/gram topical 1 applic topical BI D 09/14/25 09/14/25 cream polyethylene glycol 3350 17 4 g PO DAILY 09/14/2508/30 gram/dose oral powder (ClearLax) sodium zirconium cyclosilicate 10 10 g PO DAILY 09/14/25 gram oral powder packet (Lokelma) terbinafine 1 % topical gel ea topical 09/14/25 zinc oxide-cod liver oil 40 % 1 applic topical DAILY 1 11/14/24 09/14/25 topical paste (Desitin) Allergies Allergies Allergy/AdvReac Type Severity Reaction Status Date / Time Penicillins Allergy Anaphylaxis Verified 09/14/25 01:03 vancomycin Allergy Rash Verified 09/14/25 01:03 ciprofloxacin (From Cipro) AdvReac Intermediate Dizziness Verified 09/14/25 01:03 methocarbamol AdvReac Dizziness Verified 09/14/25 01:03 PFSH Active Problems All Active Problems (Updated 09/14/25 @ 17:39 by Ezequiel Bernal DO) Hypothyroid (Chronic) Toxic metabolic encephalopathy (Acute) Altered mental status (Acute) Leukocytosis (Acute) Constipation (Chronic) Abdominal pain (Acute) Urinary retention (Acute) Hypotension (Acute) Somnolence (Acute) Crohn disease (Chronic) Abdominal pain (Acute) Contact dermatitis (Acute) Contact dermatitis due to feces (Acute) Grief (Acute) Ileostomy in place (Acute) Encounter for attention to ileostomy (Acute) Delayed gastric emptying (Acute) Hypomagnesemia (Acute) Flashbacks (Acute) Allergic conjunctivitis (Acute) Panic attack (Acute) Hyperkalemia (Acute) Hypothermia (Acute) Chronic pain (Acute) Depression (Acute) Parastomal hernia (Acute) Swelling of right lower extremity (Acute) Malabsorption (Acute) Weakness (Acute) Medical History Medical History (Updated 09/14/25 @ 17:39 by Ezequiel Bernal DO) Insomnia Problem List clean-up per request of Phys. EHR Cmte Cellulitis of right leg Leukopenia Thrombocytopenia Chronic hyperkalemia History of seizure related to alcohol withdrawal Crohn disease Alcohol dependence in remission UTI (urinary tract infection) Surgical History Surgical History H/O colectomy with end ileostomy at age 13 Hx of neck surgery for an epidural abscess Hx of hernia repair parastomal Family History Family History (Updated 08/14/25 @ 12:20 by Adan Deng RN) Mother Dementia Cancer Sister Cancer Social History Social History (Updated 08/14/25 @ 12:20 by Adan Deng RN) Smoking Status: Smoker with current status unk Second hand tobacco smoke exposure: No Do you dip or chew tobacco?: No Do you vape?: No Patient requests smoking cessation consult: No Initiate information on smoking cessation: No Living arrangement: At home Living Condition: With spouse/s.o. 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 Resting, eyes closed in bed. Slow to respond to questions. HEENT: NC/AT, normal appearance of external ears and nose. Hearing baseline. Cardiac: Regular rate and rhythm, no murmurs. Pulm: Lungs CTA bilaterally, no cough, no wheezes. No adventitial lung sounds. Normal effort on room air. Abdomen: Soft, nontender, nondistended. No rebound or guarding. Ostomy in place in her right abdomen. Some solid stool at the stoma, parastomal hernia present. Neuro: Face symmetric, CN II through XII intact grossly. No dysarthria. She moves all extremities equally. Oriented to person, place, situation. Psych: Mood euthymic with congruent affect. Conclusion/Plan Problem List (1) Toxic metabolic encephalopathy: Plan: Patient presented with undefined encephalopathy, but would favor a definition of toxic metabolic encephalopathy. She presented after unusual behavior at home. She was putting inappropriate things in the cupboard (e.g. full coffee pot), and later when she went to change into her pajamas, she returned to the kitchen nude. Both behaviors are unlike her. She was saying things not coherently to her . Much of her history requires independent historian from her . Unfortunately, at this time she has been in the ED for almost 24 hours. Little utility in adding on new studies as she is likely metabolizing out any substance. Her labs on arrival are suggestive of a nongap acidosis, hyperkalemia (possibly mediated by acidosis), hypomagnesemia, subclinical hypothyroidism, and mildly elevated lipase. Notably has a negative leukocytosis, no elevated acute phase reactants. Ferritin, platelets normal. Cardiac markers were not obtained. Her vital signs are otherwise stable. She seems to be clearing. She is able to answer questions appropriately. She is slow to respond, but appropriate. Oriented x 3. Overall would favor toxic/metabolic encephalopathy, possibly attributable to a extra dose of her medicine. It is possible she took an extra sertraline, cetirizine, hydroxyzine which all may precipitate an encephalopathy. Other differentials would include subacute seizure, no focal deficits to suggest CVA, though TIA could be possible. - Discussed with Dr. Landrum, I will admit the patient to observation status - If her mentation remains clear, her vital signs remained stable, she likely can discharge in 24 hours. - will bring in her medications, await med rec - Reasonable to continue daily meds tonight and tomorrow morning - Monitor BMP, magnesium, Phos - Monitor CBC - Will give 1 L of D5 half-normal saline overnight - Will check an alcohol level and troponin now, Try and add on UDS to her previously collected urine (2) Crohn disease: Qualifiers: Digestive disease complication type: other complication G astrointestinal tract location: unspecified location Qualified Code(s): K50.918 - Crohn's disease, unspecified, with other complication (3) Ileostomy in place: Plan: Patient with history of Crohn's disease with ileostomy placed 50 years ago. Age 13. Total colectomy secondary to her IBD. Recurrent parastomal hernia with plans for surgical correction in September with Dr. Arzola in [place]. Patient has history of recurrent small bowel obstruction in the setting of this. She is having good output through her ostomy at this time. No signs of acute obstruction. Of note she has been on a regular nondysphagia diet since this morning - Minced and moist diet given history of bowel obstruction - Maintain daily MiraLAX - Monitor BMP (4) Hyponatremia: (5) Hypomagnesemia: Plan: Chronic history of hypomagnesemia. She is on magnesium replacement. Apparently taking two 500 mg tablets at night. This apparently helps her with sleep. - Will give 800 mg formulary magnesium nightly - Monitor magnesium - Await med rec (6) Hyperkalemia: Plan: History of recurrent hyperkalemia. She is on scheduled Lokelma. Her renal function is normal. She is not on any culprit medications. She has had a.m. cortisol checked multiple times early part of this year which were normal. A diagnosis of hypoaldosteronism would be consistent with her history of consistent hyponatremia, hyperkalemia and metabolic acidosis. - Will check a.m. cortisol, ACTH, renin and aldosterone levels - Reasonable to get Lokelma tonight - Would spot dose Lokelma though, moving forward though, pending a.m. labs - Consider cosyntropin stimulation test - Would hold off on further salt tabs (7) Depression: Plan: Patient's mood has improved significantly since she started on sertraline. She feels this med is helping her. Started about 1 month ago. - Continue sertraline 50 mg daily Qualifiers: Depression Type: major depressive disorder Major depression recurrence: recurrent Active/Remission status: currently active Major depression episode severity: severe Psychotic features: without psychotic features Qualified Code(s): F33.2 - Major depressive disorder, recurrent severe without psychotic features (8) Hypothyroid: Plan: Minimal subclinical hypothyroidism on levothyroxine. - Recommend recheck with PCP when not acutely ill - Will continue T4 at 25mcg, ensure given before food and other meds. Plan Plan as above. At least 3 independent tests were ordered, independent historian was interviewed, and decision was made to hospitalize. [id number] Lab Results 09/14/25 02:46 09/14/25 03:41
[2025-09-14] MEDS ORDERED: ONDANSETRON ODT 4 MG TABLET TL PRN (15:21)
[2025-09-14] MEDS ORDERED: ACETAMINOPHEN 325 MG TABLET PO PRN (15:21)
[2025-09-14] MEDS ORDERED: SODIUM CHLORIDE FLUSH 0.9% 10 ML SYRINGE IVP PRN (15:21)
[2025-09-14] MEDS: DEXTROSE 5%-0.45% NACL 1,000 ML IV SCH (15:34)
[2025-09-14] MEDS: SODIUM CHLORIDE FLUSH 0.9% 10 ML SYRINGE IVP SCH (15:42)
[2025-09-14] MEDS ORDERED: DICYCLOMINE 10 MG CAPSULE PO PRN (16:23)
[2025-09-14 17:22] LABS: AMPHETAMINE SCREEN,URINE NEGATIVE (NEGATIVE); BARBITURATE SCREEN,UR NEGATIVE (NEGATIVE); BENZODIAZEPINES SCREEN, URINE NEGATIVE (NEGATIVE); BUPRENORPHINE SCREEN, URINE NEGATIVE (NEGATIVE); COCAINE SCREEN URINE NEGATIVE (NEGATIVE); METHADONE SCREEN, URINE NEGATIVE (NEGATIVE); METHAMPHETAMINES SCREEN, URINE NEGATIVE (NEGATIVE); OPIATE SCREEN, URINE POSITIVE (NEGATIVE); THC CANNABINOID SCREEN, URINE NEGATIVE (NEGATIVE)
[2025-09-14] MEDS: oxyCODONE 5 MG TABLET PO PRN (17:53)
[2025-09-14 18:22] LABS: ETOH - ETHANOL < 10.0 mg/dL
[2025-09-14 18:28] LABS: TROPONIN I HIGH SENSITIVITY 4.5 ng/L (2.3-14.8)
[2025-09-14] MEDS: DOXAZOSIN 1 MG TABLET PO SCH (20:44)
[2025-09-14] MEDS: MAGNESIUM OXIDE 400 MG TABLET PO SCH (20:44)
[2025-09-14] MEDS ORDERED: DOXAZOSIN 1 MG TABLET PO SCH (21:00)
[2025-09-15] MEDS: ONDANSETRON 4 MG/2 ML VIAL IVP PRN (04:31)
[2025-09-15 06:04] LABS: HCT - HEMATOCRIT 28.4 % (37.0-47.0); HGB - HEMOGLOBIN 9.0 g/dL (12.0-16.0); MEAN PLATELET VOLUME 10.3 fL (7.9-10.8); NRBC ABSOLUTE COUNT (AUTO) 0.02 x10^3/uL; NUCLEATED RED BLOOD CELLS AUTO 0.7 /100WBC; PLT - PLATELET COUNT 120 10^3/uL (130-450); RED CELL DISTRIBUTION WIDTH 14.9 % (12.0-15.0)
[2025-09-15] MEDS: LEVOTHYROXINE 25 MCG TABLET PO SCH (06:17)
[2025-09-15 06:21] LABS: PHOSPHORUS 3.1 mg/dL (2.5-5.0)
[2025-09-15 06:32] LABS: BUN - BLOOD UREA NITROGEN 18.0 mg/dL (6-20); CARBON DIOXIDE - CO2 24.0 mmol/L (21-32); CREATININE 0.7 mg/dL (0.6-1.3); GFR - MDRD 84.0 (>89)
[2025-09-15 06:41] LABS: SLIDE REVIEW? Indicated
[2025-09-15 06:43] LABS: PLATELET ESTIMATE, MANUAL DECREASED (<130,000) (NORMAL); PLATELET MORPHOLOGY NORMAL APPEARANCE (NORMAL); RBC MORPHOLOGY (MULTIPLE) NORMAL APPEARANCE (NORMAL); WBC MORPHOLOGY (MULTIPLE) NORMAL APPEARANCE (NORMAL)
[2025-09-15] MEDS: COSYNTROPIN 0.25 MG VIAL IM ONE (08:12)
[2025-09-15] MEDS: COD LIVER OIL/ZINC OXIDE 113 GM TUBE TOP SCH (08:17)
[2025-09-15] MEDS: SODIUM ZIRCONIUM CYCLOSILICATE 5 GM PACKET PO SCH (09:33)
[2025-09-15] MEDS: THIAMINE 100 MG TABLET PO SCH (09:34)
[2025-09-15] MEDS: SERTRALINE 50 MG TABLET PO SCH (09:34)
[2025-09-15] MEDS: ENOXAPARIN 40 MG/0.4 ML SYRINGE SUBQ SCH (09:34)
--- NOTE | 2025-09-15 10:24 | Discharge Summary ---
"Discharge Summary Admit Date: 09/14/25 Discharge Date: 09/15/25 Discharging Provider: Dr. Mirella Little Primary Care Provider: Wendy Norris Discharge Facility Name: Home, self care DIAGNOSES Discharge Diagnoses with Status of Each Condition: Toxic metabolic encephalopathyresolved. Her lab work suggested non-anion gap metabolic acidosis, hyperkalemia, hyponatremia, hypomagnesemia. She may have actually taken an extra dose of her medication; sertraline, cetirizine, hydroxyzine. No focal deficits. Resolved with observation overnight. Consideration made for adrenal insufficiency. Her random cortisol level was within normal limits in the past. A.m. cortisol was 7, which was indeterminant. This was followed by cosyntropin stimulation test, which effectively ruled out adrenal insufficiency. Advised to continue close follow-up with primary care provider, continue twice weekly labs. Crohn's disease, ileostomystable. Continue outpatient follow-up with colorectal surgery, Dr. Arzola in [place]. Hyponatremia, hypomagnesemiacontinue supplementation in the outpatient. Hyperkalemiacontinue home Lokelma. Depressioncontinue sertraline. Hypothyroidismcontinue home medications. HPI History of Present Illness: Per Ezequiel Bernal: This is a 65-year-old female with past medical history notable for IBD with longstanding ostomy and known parastomal hernia, chronic hyperkalemia, recurrent hypoglycemia, anxiety, hypertension and frequent admissions over the last year. She presents after having acute encephalopathy. She has a history notable for recurrent abdominal pain and intermittent small bowel obstructions. The last time she was admitted, it was noted that she was scheduled for colorectal surgery in [place] in September. She was supposed to get a scope of her ostomy last month, but was unable to attend due to pneumonia she got prior to the procedure. Her fill record is consistent with antibiotics. She is still planning for procedure on September [address] Arzola. Since her last discharge in July, she was seen in the ED with decreased output from stoma on right abdominal pain on . She had not taken her MiraLAX that day. CT scan did not show an obstruction. She was instructed to resume her miralax and symptoms improved. She was brought in yesterday for increased confusion. reports steady progressive confusion since the AM of 09/13. Unsteady, slow gait. She had unusual behavior. She was putting things away weird in the kitchen. She later came out of the bedroom unclothed. Both are unusual behaviors for her. She is normally oriented x 3. Her shares that she has been a little bit off all day throughout Monday. Reportedly a normal night of sleep beforehand. She has been sleeping better since she was started on nightly magnesium with her primary care doctor. Mood has been better since starting on sertraline. She does not think she has used any cetirizine recently. Awaiting med rec. Regardless, by the time she reached the ED, she was normalizing somewhat. She still somewhat slow to respond to questions, but she is not behaving strangely. On my interview, she keeps her eyes mostly closed. She opens occasionally. She is able to answer all my questions, though her frequently interrupts her. Patient denies any fevers or chills, chest pain, dyspnea, nausea or vomiting. Ostomy output is more solid than typical, but present. Denies dysuria. In the ED nothing overtly abnormal on her workup so far. She has no leukocytosis. No other localizing signs of infection. Chloride of 19. Potassium 5.6 which improved to 5.3. Her blood glucose 145 in the ED. Lipase is elevated at 118 and her TSH is 7.7 with free T4 of 0.71. Patient is full code. Recent full code POLST reviewed. She follows with palliative care. CONSULTS | PROCEDURES Procedures: Abdomen/pelvis CT11/16no acute findings. Head CT11/16no acute intracranial pathology. HOSPITAL COURSE Hospital Course: Patient is a 65-year-old female with a history of IBD with longstanding ostomy, parastomal hernia, recurrent electrolyte disturbances including hyponatremia, hyperkalemia who presented with confusion. There was some concern that she may have taken an extra dose of her medications. She was monitored closely overnight. In the morning, she had returned back to her baseline mentation. Consideration was made for adrenal insufficiency with hyponatremia, hyperkalemia, as well as frequent episodes of hypoglycemia. A.m. cortisol was indeterminate, and so this was followed up with a cosyntropin test, which ruled out adrenal insufficiency. She was advised extensively to continue follow-up with her primary care provider, and continue her weekly lab draws to ensure appropriate electrolyte levels. Her sodium tablet was decreased to once a day. She was advised to continue her Lokelma and magnesium supplement. She was back to her baseline mentation and discharged home in stable condition with close follow-up with colorectal surgery as well as PCP. ALLERGIES Allergies Allergy/AdvReac Type Severity Reaction Status Date / Time Penicillins Allergy Anaphylaxis Verified 09/14/25 01:03 vancomycin Allergy Rash Verified 09/14/25 01:03 ciprofloxacin (From Cipro) AdvReac Intermediate Dizziness Verified 09/14/25 01:03 methocarbamol AdvReac Dizziness Verified 09/14/25 01:03 MEDICATIONS Ambulatory Orders Medication Instructions Recorded Confirmed amlodipine 5 mg tablet 5 mg PO DAILY 06/24/2409/14 levothyroxine 25 mcg tablet 25 mcg PO DAILY 01/08/25 1 11/14/24 thiamine mononitrate (vit B1) 100 100 mg PO DAILY 12/2809/14/25 mg tablet food supplemt, lactose-reduced 1 ea PO QID PRN low blo od sugar 03/06/25 09/14/25 (Ensure oral liquid) #237 mL glucose 2 gram chewable tablet 6 g (3 x 2 gram) PO QID PRN low 03/06/25 09/14/25 blood sugar #100 tabs doxazosin 1 mg tablet (Cardura) 1 mg PO QPM 03/14/25 1 11/14/24 hydrocodone 5 mg-acetaminophen 325 0.5 - 1 tab PO BID PRN severe pain 03/14/25 09/14/25 mg tablet #20 tabs magnesium oxide 400 mg (241.3 mg 400 mg PO BID #60 tab s 05/05/25 09/14/25 magnesium) tablet pantoprazole 40 mg tablet,delayed 40 mg PO QDAC #30 ta bs 05/05/25 09/14/25 release acetaminophen 500 mg tablet 500 - 1,000 mg PO BID PRN pain 05/13/25 09/14/25 cholecalciferol (vitamin D3) 25 50 mcg PO DAILY 09/14/25 mcg (1,000 unit) capsule (Vitamin D3) blood sugar diagnostic (FreeStyle #50 ea 07/09/25 10/3 0 Precision Yoni Strips) blood-glucose sensor (FreeStyle #2 ea 08/12/2508/28/ 5 Beba 2 Plus Sensor device) sertraline 50 mg tablet 50 mg PO DAILY 08/12/2508/30 dicyclomine 10 mg capsule 10 mg PO QID PRN Abdominal P ain 08/16/25 09/14/25 #30 caps polyethylene glycol 3350 17 gram 17 g PO DAILY #30 ea 08/16/25 09/14/25 oral powder packet cetirizine 10 mg tablet (24Hour 10 mg PO DAILY PRN all ergy symptoms 09/14/25 09/14/25 Allergy) hydroxyzine pamoate 25 mg capsule 25 mg PO Q8H PRN itc maureen 09/14/25 09/14/25 (Vistaril) mupirocin 2 % topical ointment 1 applic topical BID 09/14/25 (Centany) nystatin 100,000 unit/gram topical 1 applic topical BI D 09/14/25 09/14/25 cream polyethylene glycol 3350 17 4 g PO DAILY 09/14/2508/30 gram/dose oral powder (ClearLax) sodium zirconium cyclosilicate 10 10 g PO DAILY 09/14/25 gram oral powder packet (Lokelma) zinc oxide-cod liver oil 40 % 1 applic topical DAILY 1 11/14/24 09/14/25 topical paste (Desitin) sodium chloride 1,000 mg soluble 1,000 mg PO QDAY #30 tabs 09/15/25 09/14/25 tablet PHYSICAL EXAM AT DISCHARGE Vital Signs: Vital Signs x48h Temp Pulse Resp BP Pulse Ox 09/15/25 12:30 97.0 F L 49 L 16 131/72 H 98 09/15/25 12:30 97.0 F L 49 L 16 131/72 H 98 09/15/25 08:17 97.3 F L 49 L 16 141/88 H 97 GEN: No acute distress. HEENT: NC/AT, normal appearance of external ears and nose. Hearing baseline. Cardiac: Regular rate and rhythm, no murmurs. Pulm: Lungs CTA bilaterally, no cough, no wheezes. No adventitial lung sounds. Normal effort on room air. Abdomen: Soft, nontender, nondistended. No rebound or guarding. Ostomy in place in her right abdomen. Some solid stool at the stoma, parastomal hernia present. Neuro: Face symmetric, CN II through XII intact grossly. No dysarthria. She moves all extremities equally. Oriented to person, place, situation. Psych: Mood euthymic with congruent affect. LABS 09/15/25 05:53 09/15/25 05:53 FOLLOW UP Follow Up: Follow up with PCP. Follow up with colorectal surgeon. TIME SPENT Time Spent in Discharge (Minutes): 35 Discharge Plan Discharge Patient Disposition: Home, Self Care Condition: Stable Prescriptions: Continued amlodipine 5 MG tablet 5 mg PO DAILY Patient Comments: take 1 tablet by mouth once daily thiamine mononitrate (vit B1) 100 mg tablet 100 mg PO DAILY levothyroxine 25 mcg tablet 25 mcg PO DAILY cholecalciferol (vitamin D3) [Vitamin D3] 25 mcg (1,000 unit) capsule 50 mcg PO DAILY magnesium oxide 400 mg (241.3 mg magnesium) Tablet 400 mg PO BID Qty: 60 0RF pantoprazole 40 mg Tablet,Delayed Release (Dr/Ec) 40 mg PO QDAC Qty: 30 0RF acetaminophen 500 mg tablet 500 - 1,000 mg PO BID PRN (Reason: pain) polyethylene glycol 3350 17 gram Powder In Packet 17 g PO DAILY Qty: 30 0RF dicyclomine 10 mg Capsule 10 mg PO QID PRN (Reason: Abdominal Pain) Qty: 30 0RF cetirizine [24Hour Allergy] 10 mg tablet 10 mg PO DAILY PRN (Reason: allergy symptoms) Desitin 40 % paste 1 applic topical DAILY hydroxyzine pamoate [Vistaril] 25 mg capsule 25 mg PO Q8H PRN (Reason: itching) Lokelma 10 gram powder in packet 10 g PO DAILY polyethylene glycol 3350 [ClearLax] 17 gram/dose powder 4 g PO DAILY mupirocin [Centany] 2 % ointment 1 applic topical BID nystatin 100,000 unit/gram cream 1 applic topical BID Ensure Liquid 1 ea PO QID PRN (Reason: low blood sugar) Qty: 237 0RF glucose 2 gram tablet,chewable 6 g PO QID PRN (Reason: low blood sugar) Qty: 100 0RF doxazosin [Cardura] 1 mg tablet 1 mg PO QPM hydrocodone-acetaminophen 5-325 mg tablet 0.5 - 1 tab PO BID PRN (Reason: severe pain ) Qty: 20 0RF (DME) FreeStyle Precision Yoni Strips Strip See Rx Instructions .Route Qty: 50 5RF Rx Instructions: Use as directed with Beba 2 meter to monitor blood sugar up to three times daily sertraline 50 mg tablet 50 mg PO DAILY (DME) FreeStyle Beba 2 Plus Sensor Device See Rx Instructions .Route Qty: 2 5RF Rx Instructions: As directed to monitor blood sugar. Replace every 14 days. Changed sodium chloride 1,000 mg tablet,soluble 1,000 mg PO QDAY Qty: 30 0RF Diet: Regular Interventions: Discharge Last Done: 09/15/25 12:45 Discharge Checklist - Nursing Last Done: 09/15/25 12:30 Discharge Vital Signs (30 Minutes) Last Done: 09/15/25 12:30 Health Concerns: You came in for some confusion. While you were here, we did an extensive metabolic workup. Your electrolytes were low, your sodium and magnesium. Your potassium was high. This is consistent with how your labs usually are. We also did some testing to make sure that you did not have a condition called adrenal insufficiency. This was negative. Please continue taking your magnesium supplement. Your sodium was on the higher side, so please decrease your salt tabs at home to just once a day. Please continue your Lokelma as well. I understand that you follow-up very closely with your primary care provider, and get your labs checked twice weekly. Please have your primary care provider continue to closely monitor your electrolytes. Please continue to follow-up with your colorectal surgery as well. We are glad you are feeling better, thank you for allowing us to take care of you. Print Language: Luxembourgish Patient Instructions: Hypoglycemia Tx Steps Stand Alone Forms: PCP List Follow-up Care: WENDY NORRIS ARNP [Primary Care Provider, Nurse Practitioner] Vitals documented within 30 minutes of discharge?: Yes (see vitals)"
[2025-09-15 13:12] VITALS: BP 131/72; TEMP 97; O2SAT 98
[2025-09-15] MEDS ORDERED: SODIUM CHLORIDE 1 GM TABLET PO SCH (14:00)
== END 2025-09-15 12:45 | disposition home or self-care (01) ==
LOC: MS2 00:51 → ED 00:51 → MS2 15:05
PROVIDERS: ADMIT Student in an Organized Health Care Education/Training Program; ATTEND Student in an Organized Health Care Education/Training Program
DX: K43.5 Parastomal hernia without obstruction or gangrene; K50.90 Crohn's disease, unspecified, without complications; F41.9 Anxiety disorder, unspecified; F33.2 Major depressive disorder, recurrent severe without psychotic features; E87.5 Hyperkalemia; E83.42 Hypomagnesemia; E03.8 Other specified hypothyroidism; R26.89 Other abnormalities of gait and mobility; I10 Essential (primary) hypertension; G92.8 Other toxic encephalopathy; E87.1 Hypo-osmolality and hyponatremia; Z93.2 Ileostomy status

== ENCOUNTER 2025-09-26 07:07 | Observation (INO) ==
--- OUTSIDE RECORDS SUMMARY | 2025-09-26 07:28 | EXTERNAL MEDICAL SUMMARY RPT | Continuity of Care Document ---
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) [facility] 2025-07-04 10:08 Major depressive dis order, recurrent severe without psychotic features [facility] 2025-07-04 10:08 Panic disorder [episodic paroxy smal anxiety] [facility] 2025-07-04 10:08 Adjustment disorder with depres sed mood [facility] 2025-07-04 10:08 Other chronic postprocedural pa in [facility] 2025-07-04 10:08 Functional dyspepsia [facility] 2025-07-04 10:08 Parastomal hernia without obstr uction or gangrene [facility] 2025-07-04 10:09 Encounter for palliative care [facility] 2025-07-15 16:14 Other generalized ep ilepsy and epileptic syndromes, [facility] 2025-07-18 12:27 Encounter for attention to ileo stomy [facility] 2025-07-18 12:27 Encounter for palliative care [facility] 2025-07-21 14:14 Hypoglycemia, unspecified [facility] 2025-07-21 14:14 Hyperkalemia [facility] 2025-07-21 14:14 Major depressive dis order, recurrent severe without psychotic features [facility] 2025-07-21 14:14 Other chronic postprocedural pa in [facility] 2025-07-21 14:14 Functional dyspepsia [facility] 2025-07-21 14:14 Parastomal hernia without obstr uction or gangrene [facility] 2025-07-21 14:14 Weakness [facility] 2025-07-21 14:14 Encounter for palliative care [facility] 2025-07-22 13:12 Encounter for attention to ileo stomy [facility] 2025-07-22 13:12 Encounter for palliative care [facility] 2025-07-22 14:27 Encounter for attention to ileo stomy [facility] 2025-07-22 14:27 Encounter for palliative care [facility] 2025-07-22 15:21 Encounter for 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 2025-07-23 13:28 Hypoglycemia, unspecified [facility] 2025-07-23 13:28 Hyperkalemia [facility] 2025-07-23 13:28 Encephalopathy, unspecified [facility] 2025-07-23 13:28 Essential (primary) hypertensio n [facility] 2025-07-23 13:28 Crohn's disease, unspecified, w ithout complications [facility] 2025-07-23 13:28 Ulcerative colitis, unspecified, without [facility] 2025-07-23 13:28 Intestinal malabsorption, unspe cified [facility] 2025-07-23 13:28 Disorientation, unspecified [facility] 2025-07-23 13:28 Shock, unspecified [facility] 2025-07-23 14:25 Encounter for palliative care [facility] 2025-07-23 14:26 Hypoglycemia, unspecified [facility] 2025-07-23 14:26 Hypo-osmolality and hyponatremi a [facility] 2025-07-23 [address] [facility] 2025-07-23 14:26 Depression, [facility] 2025-07-23 14:26 Major depressive disorder, recu rrent, moderate [facility] 2025-07-23 14:26 Adjustment insomnia [facility] 2025-07-23 14:26 Essential (primary) [facility]ensio n [facility]25-07-[facility] 14:26 Other specified soft tissue dis orders [facility] 2025-07-23 14:27 Hypoglycemia, unspecified [facility] 2025-07-23 14:27 Hypo-osmolality and hyponatremi a [facility] 2025-07-23 14:27 Hyperkalemia [facility] 2025-07-23 14:27 Major depressive disorder, recu rrent, moderate [facility] 2025-07-23 14:27 Other chronic postprocedural pa in [facility] 2025-07-23 14:27 Essential (primary) hypertensio n [facility] 2025-07-23 14:27 Other specified soft tissue dis orders [facility] 2025-07-23 14:27 Hypothermia, subsequent encount er [facility] 2025-07-23 14:27 Encounter for palliative care [employer] 2025-07-23 14:29 [facility] for palliative [facility] [employer] 2025-07-24 11:01 Hypoglycemia, unspecified [facility] 2025-07-24 11:01 Hyperkalemia [facility] [employer] 2025-07-24 11:01 Encephalopathy, unspecified [facility] 2025-07-24 11:01 Essential (primary) hypertensio n [facility] 2025-07-24 11:01 Crohn's disease, unspecified, w ithout complications [facility] [employer] 2025-07-24 11:01 Ulcerative colitis, unspecified, without complications [facility] [employer] 2025-07-24 11:01 Intestinal malabsorption, unspe cified [facility] 2025-07-24 11:01 Unspecified abdominal pain [facility] [employer] 2025-07-24 11:01 Disorientation, unspecified [facility] 2025-07-24 11:01 Altered mental status, unspecif ied [facility] 2025-07-24 11:01 Weakness [facility] 2025-07-24 11:01 Shock, unspecified [facility] 2025-07-24 11:20 Sepsis, unspecified organism [facility] 2025-07-24 11:20 Hypoglycemia, unspecified [facility] 2025-07-24 11:20 Hyperkalemia [facility] 2025-07-24 11:20 Encephalopathy, unspecified [facility] 2025-07-24 11:20 Essential (primary) hypertensio n [facility] 2025-07-24 11:20 Crohn's disease, unspecified, w ithout complications [facility] 2025-07-24 11:20 Ulcerative colitis, unspecified, without complications [facility] 2025-07-24 11:20 Intestinal malabsorption, unspe cified [facility] 2025-07-24 11:20 Unspecified abdominal pain [facility] 2025-07-24 11:20 Disorientation, unspecified [facility] 2025-07-24 11:20 Altered mental status, unspecif ied [facility] 2025-07-24 11:20 Weakness [facility] 2025-07-24 11:20 Shock, unspecified [facility] 2025-07-25 15:23 Hyperkalemia [facility] 2025-07-25 15:23 Cellulitis of unspecified part of limb [facility] 2025-07-25 15:30 Right lower quadrant pain [facility] 2025-07-30 10:29 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 2025-08-01 08:28 Localized edema [facility] 2025-08-01 09:58 Venous insufficiency (chronic) (peripheral) [facility] 2025-08-01 09:58 Encounter for attention to ileo stomy [facility] 2025-08-01 09:58 Encounter for palliative care [employer] 2025-08-01 10:06 Encounter for attention to ileo stomy [facility] 2025-08-01 10:06 Encounter for palliative care [employer] 2025-08-01 11:13 Hypoglycemia, unspecified [employer] [facility] 2025-08-01 11:13 Hypo-osmolality and hyponatremi a [facility] 2025-08-01 11:13 Hyperkalemia [facility] 2025-08-01 11:13 Major depressive disorder, recu rrent, moderate [facility] 2025-08-01 11:13 Other chronic postprocedural pa in [facility] 2025-08-01 11:13 Essential (primary) hypertensio n [facility] 2025-08-01 11:13 Other specified soft tissue dis orders [facility] 2025-08-01 11:13 Hypothermia, subsequent encount er [facility] 2025-08-01 11:13 Encounter for palliative care [employer] 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 2025-08-13 09:47 Hyperkalemia [facility] 2025-08-13 09:47 Major depressive dis order, recurrent severe without psychotic features [facility] 2025-08-13 09:47 Other chronic postprocedural pa in [facility] 2025-08-13 09:[address] [facility] 2025-08-13 09:47 Parastomal hernia without obstr uction or gangrene [facility] 2025-08-13 09:[address] [facility] 2025-08-13 09:47 Encounter for palliative care [employer] [facility] 2025-08-13 12:58 Hypoglycemia, unspecified [employer] [facility] 2025-08-13 12:[address] [facility] 2025-08-13 12:58 Major depressive dis order, recurrent severe without psychotic features [facility] 2025-08-13 12:58 Other chronic postprocedural pa in [facility] 2025-08-13 12:[address] [facility] 2025-08-13 12:58 Parastomal hernia without obstr uction or gangrene [facility] 2025-08-13 12:58 Weakness [facility] 2025-08-13 12:58 En[facility] for palliative care [facility] 2025-08-14 11:05 Unspecified intestin al obstruction, unspecified as to partial versus complete obstruction [facility] 2025-08-14 11:18 Unspecified intestin al obstruction, unspecified as to partial versus complete obstruction [facility] 2025-08-14 11:19 Unspecified intestin al obstruction, unspecified as to partial versus complete obstruction [facility] 2025-08-14 12:39 Unspecified intestin al obstruction, unspecified as to partial versus complete obstruction [facility] 2025-08-15 17:07 Hypoglycemia, unspecified [facility] [employer] 2025-08-15 17:07 Hypotension, unspecified [employer] 2025-08-15 17:07 Crohn's disease, uns pecified, with other complication [facility] 2025-08-15 17:07 Unspecified intestin al obstruction, unspecified as to partial versus complete obstruction [facility] 2025-08-15 17:07 Epigastric pain [facility] 2025-08-15 17:07 Retention of urine, unspecified [facility] 2025-08-15 17:07 Somnolence [facility] 2025-08-15 17:07 Encounter for attention to ileo stomy [facility] 2025-08-15 17:07 Ileostomy status [facility] 2025-08-16 12:26 Hypoglycemia, unspecified [facility] [employer] 2025-08-16 12:26 Hypotension, unspecified [employer] 2025-08-16 12:26 Crohn's disease, uns pecified, with other complication [facility] 2025-08-16 12:26 Unspecified intestin al obstruction, unspecified as to partial versus complete obstruction [facility] 2025-08-16 12:26 Epigastric pain [facility] 2025-08-16 12:26 Retention of urine, unspecified [address] 2025-08-16 12:26 Somnolence [facility] 2025-08-16 12:26 Encounter for attention to ileo stomy [facility] 2025-08-16 12:26 Ileostomy status [facility] 2025-08-16 12:32 Hypoglycemia, unspecified [employer] 2025-08-16 12:32 Hypotension, unspecified [facility] 2025-08-16 12:32 Crohn's disease, uns pecified, with other complication [address] 2025-08-16 12:32 Unspecified intestin al obstruction, unspecified as to partial versus complete obstruction [facility] 2025-08-16 12:[address] 2025-08-16 12:32 Retention of urine, unspecified [facility] 2025-08-16 12:[address] 2025-08-16 12:32 Encounter for attention to ileo stomy [address] 2025-08-16 12:[address] 2025-08-16 12:42 Hypoglycemia, unspecified [employer] 2025-08-16 12:42 Hypotension, unspecified [employer] 2025-08-16 12:42 Crohn's disease, uns pecified, with other complication [address] 2025-08-16 12:42 Unspecified intestin al obstruction, unspecified as to partial versus complete obstruction [address] 2025-08-16 12:[address] 2025-08-16 12:42 Retention of urine, unspecified [facility] 2025-08-16 12:[address] 2025-08-16 12:42 Encounter for attention to ileo stomy [facility] 2025-08-16 12:42 Ileostomy status [facility] 2025-08-16 14:59 Hypoglycemia, unspecified [employer] 2025-08-16 14:59 Hypotension, unspecified [employer] 2025-08-16 14:59 Crohn's disease, uns pecified, with other complication [address] 2025-08-16 14:59 Unspecified intestin al obstruction, unspecified as to partial versus complete obstruction [facility] 2025-08-16 14:59 Epigastric pain [facility] 2025-08-16 14:59 Retention of urine, unspecified [facility] 2025-08-16 14:59 Somnolence [facility] 2025-08-16 14:59 Encounter for attention to ileo stomy [facility] 2025-08-16 14:59 Ileostomy status [facility] 2025-08-16 15:00 Hypoglycemia, unspecified [email or web address] [facility] 2025-08-16 15:00 Hypotension, unspecified [employer] 2025-08-16 15:00 Crohn's disease, uns pecified, with other complication [facility] 2025-08-16 15:00 Unspecified intestin al obstruction, unspecified as to partial versus complete obstruction [facility] 2025-08-16 15:00 Epigastric pain [facility] 2025-08-16 15:00 Retention of urine, unspecified [facility] 2025-08-16 15:00 Somnolence [facility] 2025-08-16 15:00 Encounter for attention to ileo stomy [facility] 2025-08-16 15:00 Ileostomy status [facility] 2025-08-18 09:35 Hypoglycemia, unspecified [facility] [employer] 2025-08-18 09:35 Hypotension, unspecified [employer] 2025-08-18 09:35 Crohn's disease, uns pecified, with other complication [facility] 2025-08-18 09:35 Unspecified intestin al obstruction, unspecified as to partial versus complete obstruction [facility] 2025-08-18 09:35 Epigastric pain [facility] 2025-08-18 09:35 Retention of urine, unspecified [address] 2025-08-18 09:35 Somnolence [facility] 2025-08-18 09:35 Encounter for attention to ileo stomy [address] 2025-08-18 09:[address] 2025-08-20 13:11 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 2025-08-22 06:58 Hyperkalemia [facility] 2025-08-22 06:58 Major depressive dis order, recurrent severe without psychotic features [facility] 2025-08-22 06:58 Other chronic postprocedural pa in [facility] 2025-08-22 06:[address] [facility] 2025-08-22 06:58 Parastomal hernia without obstr uction or gangrene [facility] 2025-08-22 06:58 Irritant contact vik matitis due friction or contact with other specified body fluids [facility] 2025-08-22 06:58 Encounter for palliative care [facility] 2025-08-22 10:54 Pneumonia, unspecified organism [facility] 2025-08-22 10:56 Pneumonia, unspecified organism [facility] 2025-08-22 11:26 Hypoglycemia, unspecified [facility] 2025-08-22 11:26 Hypotension, unspecified [facility] 2025-08-22 11:26 Crohn's disease, uns pecified, with other complication [facility] 2025-08-22 11:26 Unspecified intestin al obstruction, unspecified as to partial versus complete obstruction [facility] 2025-08-22 11:26 Epigastric pain [facility] 2025-08-22 11:26 Nausea with vomiting, unspecifi ed [facility] 2025-08-22 11:26 Retention of urine, unspecified [facility] 2025-08-22 11:26 Somnolence [facility] 2025-08-22 11:26 Encounter for attention to ileo stomy [facility] 2025-08-22 11:26 Ileostomy status [facility] 2025-08-22 11:39 Hypoglycemia, unspecified [employer] 2025-08-22 11:39 Hypotension, unspecified [facility] 2025-08-22 11:39 Crohn's disease, uns pecified, with other complication [facility] 2025-08-22 11:39 Unspecified intestin al obstruction, unspecified as to partial versus complete obstruction [facility] 2025-08-22 11:39 Epigastric pain [facility] 2025-08-22 11:39 Nausea with vomiting, unspecifi ed [facility] 2025-08-22 11:39 Retention of urine, unspecified [facility] 2025-08-22 11:39 Somnolence [facility] 2025-08-22 11:39 Encounter for attention to ileo stomy [facility] 2025-08-22 11:39 Ileostomy status [facility] 2025-08-23 00:02 Pneumonia, unspecified organism [facility] 2025-08-29 10:36 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 [facility] 2025-09-01 08:24 Unspecified abdominal pain [facility] 2025-09-01 08:24 Vomiting, unspecified [facility] 2025-09-01 14:34 Hypoglycemia, unspecified [facility] 2025-09-01 14:34 Hypo-osmolality and hyponatremi a [facility] 2025-09-01 14:34 Encephalopathy, unspecified [facility] 2025-09-01 14:34 Ulcerative colitis, unspecified, without complications [facility] 2025-09-01 14:34 Disorientation, unspecified [facility] 2025-09-02 15:39 Unspecified intestin al obstruction, unspecified as to partial versus complete obstruction [facility] 2025-09-03 16:15 Unspecified abdominal pain [facility] 2025-09-04 09:44 Unspecified abdominal pain [facility] 2025-09-04 09:44 Vomiting, unspecified [facility] 2025-09-04 09:45 Unspecified abdominal pain [facility] 2025-09-04 09:45 Vomiting, unspecified [facility] 2025-09-05 07:15 Hypoglycemia, unspecified [facility] 2025-09-05 07:15 Essential (primary) hypertensio n [facility] 2025-09-05 07:15 Disorientation, unspecified [facility] 2025-09-05 08:20 Hyperkalemia [facility] 2025-09-05 08:20 Tinnitus, bilateral [facility] 2025-09-05 08:20 Essential (primary) hypertensio n [facility] 2025-09-05 08:20 Other spondylosis with radiculo luis carlos, lumbar region [facility] 2025-09-05 08:20 Acute cystitis without hematuri a [facility] 2025-09-05 08:20 Urinary tract infection, site n ot specified [facility] 2025-09-05 08:20 Chest pain, unspecified [facility] 2025-09-05 08:20 Nausea with vomiting, unspecifi ed [facility] 2025-09-05 08:[address] [facility] 2025-09-05 08:20 Disorientation, unspecified [facility] 2025-09-05 08:20 Altered mental status, unspecif ied [facility] 2025-09-05 08:20 Restlessness and agitation [facility] [employer] 2025-09-05 08:20 Headache, unspecified [facility] 2025-09-05 08:[address] [facility] 2025-09-05 08:20 Abrasion of left index finger, initial encounter [facility] 2025-09-05 08:24 Acute cystitis without hematuri a [facility] 2025-09-05 08:24 Nausea with vomiting, unspecifi ed [facility] 2025-09-05 13:51 Encounter for other preprocedur al examination [facility] 2025-09-08 08:37 Decreased white blood cell coun t, unspecified [facility] 2025-09-08 08:37 Hypoglycemia, unspecified [facility] 2025-09-08 08:37 Hyperkalemia [facility] 2025-09-08 08:37 Bradycardia, unspecified [facility] 2025-09-08 08:37 Elevated blood-press ure reading, without diagnosis of hypertension [facility] 2025-09-08 08:37 Altered mental status, unspecif ied [facility] 2025-09-08 08:37 Hypothermia, initial encounter [facility] 2025-09-08 10:43 Acute cystitis without hematuri a [facility] 2025-09-08 10:43 Nausea with vomiting, unspecifi ed [facility] 2025-09-09 16:08 [address]neumonia, unspecified [facility] 2025-09-10 13:23 Encounter for palliative care [facility] 2025-09-13 14:25 Hypomagnesemia [facility] 2025-09-13 14:25 Functional dyspepsia [facility] 2025-09-13 14:25 Encounter for other preprocedur al examination [facility] 2025-09-13 14:26 Hypomagnesemia [facility] 2025-09-13 14:26 Functional dyspepsia [facility] 2025-09-13 14:26 Encounter for other preprocedur al examination [facility] 2025-09-14 00:[address] [facility] 2025-09-14 00:02 Functional dyspepsia [facility] 2025-09-14 00:02 Encounter for other preprocedur al examination [facility] 2025-09-14 01:[address] [facility] 2025-09-14 01:03 Functional dyspepsia [facility] 2025-09-14 01:03 Encounter for other preprocedur al examination [facility] 2025-09-14 14:50 Altered mental status, unspecif ied [facility] 2025-09-15 08:02 Encounter for other preprocedur al examination [facility] 2025-09-15 09:59 Hypothyroidism, unspecified [facility] 2025-09-15 09:[address] [facility] 2025-09-15 09:59 Hypo-osmolality and hyponatremi a [facility] 2025-09-15 09:[address] [facility] [address] [facility] 2025-09-15 09:59 Major depressive dis order, recurrent severe without psychotic features [facility]25-[facility]-15 09:59 Other toxic encephalopathy [facility] [employer] 2025-09-15 09:59 Crohn's disease, uns pecified, with other complication [facility] 2025-09-15 09:59 Altered mental status, unspecif ied [facility] 2025-09-15 09:59 Ileostomy status [facility] 2025-09-15 10:24 Hypothyroidism, unspecified [facility] 2025-09-15 10:24 Hypomagnesemia [facility] 2025-09-15 10:24 Hypo-osmolality and hyponatremi a [facility] [employer] 2025-09-15 10:24 Hyperkalemia [facility] 2025-09-15 10:24 Major depressive dis order, recurrent severe without psychotic features [facility] [employer] 2025-09-15 10:24 Other toxic encephalopathy [facility] [employer] 2025-09-15 10:24 Crohn's disease, uns pecified, with other complication [facility] 2025-09-15 10:24 [facility], [facility]24 Ileostomy status [facility] 2025-09-15 10:30 Hypothyroidism, unspecified [facility] 2025-09-15 10:30 Hypomagnesemia [facility] [employer] 2025-09-15 10:30 Hypo-osmolality and hyponatremi a [facility] [employer] 2025-09-15 10:30 Hyperkalemia [facility] [employer] 2025-09-15 10:30 Major depressive dis order, recurrent severe without psychotic features [facility] [employer] 2025-09-15 10:30 Other toxic encephalopathy [facility] [employer] 2025-09-15 10:30 Crohn's disease, uns pecified, with other complication [facility] [employer] 2025-09-15 10:30 [facility], [facility] [employer] 2025-09-15 10:30 Ileostomy status [facility] [employer] 2025-09-15 11:13 Hypothyroidism, unspecified [facility] [employer] 2025-09-15 11:13 Hypomagnesemia [facility] [employer] 2025-09-15 11:13 Hypo-osmolality and [facility]atremi a [facility] [facility]13 Major depressive dis order, recurrent severe without psychotic [facility] 11:13 Other toxic encephalopathy [facility] [employer] 2025-09-15 11:13 Crohn's disease, uns pecified, with other complication [facility] 2025-09-15 11:13 Altered mental status, unspecif ied [facility] 2025-09-15 11:13 Ileostomy status [facility] 2025-09-15 11:28 Hypothyroidism, unspecified [facility] 2025-09-15 11:28 Hypomagnesemia [facility] 2025-09-15 11:28 Hypo-osmolality and hyponatremi a [facility] [employer] 2025-09-15 11:28 Hyperkalemia [facility] [employer] 2025-09-15 11:28 Major depressive dis order, recurrent severe without psychotic features [facility] [employer] 2025-09-15 11:28 Other toxic encephalopathy [facility] [employer] 2025-09-15 11:28 Crohn's disease, uns pecified, with other complication [facility] 2025-09-15 11:28 Altered mental status, unspecif [facility] 2025-09-15 11:28 Ileostomy status [facility] 2025-09-15 12:12 Hypothyroidism, unspecified [facility] 2025-09-15 12:12 Hypomagnesemia [facility] [employer] 2025-09-15 12:12 Hypo-osmolality and hyponatremi a [facility] [employer] 2025-09-15 12:12 Hyperkalemia [facility] [employer] 2025-09-15 12:12 Major depressive dis order, recurrent severe without psychotic features [facility] [employer] 2025-09-15 12:12 Other toxic encephalopathy [facility] [employer] 2025-09-15 12:12 Crohn's disease, uns pecified, with other complication [facility] [employer] 2025-09-15 12:12 Altered mental status, unspecif [facility] [employer] 2025-09-15 12:12 Ileostomy status [facility] 2025-09-15 13:20 Hypothyroidism, unspecified [facility] 2025-09-15 13:[address] [facility] 13:20 Hypo-osmolality and [facility]onatremi a [facility] 13:20 Hyperkalemia [facility] 2025-09-15 13:20 Major depressive dis order, recurrent severe without psychotic features [facility] 2025-09-15 13:20 Other toxic encephalopathy [facility] 2025-09-15 13:20 Crohn's disease, uns pecified, with other complication [facility] 2025-09-15 13:20 Altered mental status, unspecif ied [facility] 2025-09-15 13:20 Ileostomy status [facility] 2025-09-15 16:53 Pneumonia, unspecified organism [facility] 2025-09-16 06:28 Hypothyroidism, unspecified [facility] 2025-09-16 06:28 Hypomagnesemia [facility] 2025-09-16 06:28 Hypo-osmolality and hyponatremi a [facility] 2025-09-16 06:28 Hyperkalemia [facility] 2025-09-16 06:28 Major depressive dis order, recurrent severe without psychotic features [facility] 2025-09-16 06:28 Other toxic encephalopathy [facility] 2025-09-16 06:28 Crohn's disease, uns pecified, with other complication [facility] 2025-09-16 06:28 Nausea with vomiting, unspecifi ed [facility] 2025-09-16 06:28 Other abnormalities of gait and mobility [facility] 2025-09-16 06:28 Disorientation, unspecified i [facility] 2025-09-16 06:28 Altered mental status, unspecif ied [facility] 2025-09-16 06:28 Ileostomy status [facility] 2025-09-17 08:46 Lymphocytopenia [facility] 2025-09-17 08:46 Hypomagnesemia [facility] 2025-09-17 08:46 Altered mental status, unspecif ied [facility] 2025-09-17 13:55 Lymphocytopenia [facility] 2025-09-17 13:55 Hypomagnesemia [facility] 2025-09-17 13:55 Altered mental status, unspecif ied [facility] 2025-09-17 13:[address] [facility] 2025-09-17 13:58 [facility]emia [facility]25-[facility] 13:58 Altered mental status, [facility]specif ied [facility] 2025-09-17 14:04 Pneumonia, unspecified organism [facility] 2025-09-17 14:07 Pneumonia, unspecified organism [facility] 2025-09-17 14:09 Pneumonia, unspecified organism [facility] 2025-09-17 14:10 Pneumonia, unspecified organism [facility] 2025-09-17 14:13 Pneumonia, unspecified organism [facility] 2025-09-18 00:04 Lymphocytopenia [facility] 2025-09-18 00:04 Hypomagnesemia [facility] 2025-09-18 00:04 Altered mental status, unspecif ied [facility] 2025-09-19 08:39 Major depressive dis order, recurrent severe without psychotic features [facility] 2025-09-[facility] 08:39 Other chronic postprocedural pa in [facility] 2025-09-19 08:39 Essential (primary) hypertensio n [facility] 2025-09-19 08:39 Parastomal hernia without obstr uction or gangrene [facility] 2025-09-19 08:39 Altered mental status, unspecif ied [facility] 2025-09-19 08:39 [facility] Other group [facility] (current) drug therapy [facility] 2025-09-19 10:52 Pneumonia, unspecified organism [facility] 2025-09-20 00:02 Pneumonia, unspecified organism [facility] 2025-09-22 09:38 Spinal stenosis, lum bar region with neurogenic claudication [facility] 2025-09-23 09:00 Pneumonia, unspecified 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 CREATININE 2025-07-01 10:55 [facility] 0.6 mg/dl As of April 2023 testing method has changed, this may include reference ranges. ALBUMIN/GLOBULIN RATIO 2025-07-01 10:55 [facility] 1.2 (missing) (missing) CALCIUM 2025-07-01 10:55 [facility] 10.0 mg/dl As of April 2023 testing method has changed, this may include reference ranges. GFR - MDRD 2025-07-01 10:55 [facility] 100 (missing) The IDMS-traceable MDRD Study [...] last updated December 2011. CHLORIDE 2025-07-01 10:55 [facility] 105 mmol/l As of April 2023 testing method has changed, this may include reference ranges. SODIUM 2025-07-01 10:55 [facility] 136 mmol/l Unknown BUN - BLOOD UREA NITROGEN 2025-07-01 10:55 [facility] 22 mg/dl As of April 2023 testing method has changed, this may include reference ranges. CARBON DIOXIDE - CO2 2025-07-01 10:55 [facility] 28 mmol/l As of April 2023 testing method has changed, this may include reference ranges. ANION GAP 2025-07-01 10:55 [facility] 3.0 (missing) (missing) GLOBULIN 2025-07-01 10:55 [facility] 3.5 g/dl (missing) AST ASPARTATE AMINOTRANSFERASE 2025-07-01 10:55 [facility] 31 iu/l As of April 2023 testing method has changed, this may include reference ranges. ALBUMIN 2025-07-01 10:55 [facility] 4.1 g/dl As of April 2023 testing method has changed, this may include reference ranges. POTASSIUM 2025-07-01 10:55 [facility] 4.8 mmol/l As of April 2023 testing method has changed, this may include reference ranges. ALT ALANINE AMINOTRANSFERASE 2025-07-01 10:55 [facility] 44 iu/l As of April 2023 testing method has changed, this may include reference ranges. TOTAL PROTEIN 2025-07-01 10:55 [facility] 7.6 g/dl As of April 2023 testing method has changed, this may include reference ranges. GLUCOSE 2025-07-01 10:55 [facility] 76 mg/dl As of April 2023 testing method has changed, this may include reference ranges. ALKALINE PHOSPHATASE 2025-07-01 10:55 [facility] 84 iu/l As of April 2023 testing method has changed, this may include reference ranges. Result panel 2 BILIRUBIN,TOTAL 2025-07-22 13:32 [facility] 0.3 mg/dl As of April 2023 testing method has changed, this may include reference ranges. CREATININE 2025-07-22 13:32 [facility] 0.6 mg/dl As of April 2023 testing method has changed, this may include reference ranges. ALBUMIN/GLOBULIN RATIO 2025-07-22 13:32 [facility] 1.2 (missing) (missing) CALCIUM 2025-07-22 13:32 [facility] 10.4 mg/dl As of April 2023 testing method has changed, this may include reference ranges. GFR - MDRD 2025-07-22 13:32 [facility] 100 (missing) The IDMS-traceable MDRD Study [...] last updated December 2011. CHLORIDE 2025-07-22 13:32 [facility] 103 mmol/l As of April 2023 testing method has changed, this may include reference ranges. SODIUM 2025-07-22 13:32 [facility] 133 mmol/l Unknown AST ASPARTATE AMINOTRANSFERASE 2025-07-22 13:32 [facility] 20 iu/l As of April 2023 testing method has changed, this may include reference ranges. BUN - BLOOD UREA NITROGEN 2025-07-22 13:32 [facility] 21 mg/dl As of April 2023 testing method has changed, this may include reference ranges. ALT ALANINE AMINOTRANSFERASE 2025-07-22 13:32 [facility] [employer] 27 iu/l As of April 2023 testing method has changed, this may include reference ranges. CARBON DIOXIDE - CO2 2025-07-22 13:32 [facility] 27 mmol/l As of April 2023 testing method has changed, this may include reference ranges. ANION GAP 2025-07-22 13:32 [facility] 3.0 (missing) (missing) GLOBULIN 2025-07-22 13:32 [facility] 3.4 g/dl (missing) ALBUMIN 2025-07-22 13:32 [facility] 4.1 g/dl As of April 2023 testing method has changed, this may include reference ranges. POTASSIUM 2025-07-22 13:32 [facility] [employer] 4.6 mmol/l As of April 2023 testing method has changed, this may include reference ranges. GLUCOSE 2025-07-22 13:32 [facility] [employer] 65 mg/dl As of April 2023 testing method has changed, this may include reference ranges. TOTAL PROTEIN 2025-07-22 13:32 [facility] 7.5 g/dl As of April 2023 testing method has changed, this may include reference ranges. ALKALINE PHOSPHATASE 2025-07-22 13:32 [facility] 97 iu/l As of April 2023 testing method has changed, this may include reference ranges. Result panel 3 CRP - C-REACTIVE PROTEIN 2025-07-31 13:42 [facility] 1.0 mg/dl As of Apr testing method has changed, this may include reference ranges. ESR- ERYTHROCYTE SEDIMENT RATE 2025-07-31 13:42 [facility] 40 mm/hr (missing ) Result panel 4 BILIRUBIN,TOTAL 2025-08-04 10:50 [facility] 0.3 mg/dl As of April 2023 testing method has changed, this may include reference ranges. CREATININE 2025-08-04 10:50 [facility] 0.7 mg/dl As of April 2023 testing method has changed, this may include reference ranges. ALBUMIN/GLOBULIN RATIO 2025-08-04 10:50 [facility] 1.2 (missing) (missing) CALCIUM 2025-08-04 10:50 [facility] 10.5 mg/dl As of April 2023 testing method has changed, this may include reference ranges. CHLORIDE 2025-08-04 10:50 [facility] 109 mmol/l As of April 2023 testing method has changed, this may include reference ranges. SODIUM 2025-08-04 10:50 [facility] 137 mmol/l Unknown BUN - BLOOD UREA NITROGEN 2025-08-04 10:50 [facility] 18 mg/dl As of April 2023 testing method has changed, this may include reference ranges. AST ASPARTATE AMINOTRANSFERASE 2025-08-04 10:50 [facility] 23 iu/l As of April 2023 testing method has changed, this may include reference ranges. CARBON DIOXIDE - CO2 2025-08-04 10:50 [facility] 24 mmol/l As of April 2023 testing method has changed, this may include reference ranges. ALT ALANINE AMINOTRANSFERASE 2025-08-04 10:50 [facility] 25 iu/l As of April 2023 testing method has changed, this may include reference ranges. GLOBULIN 2025-08-04 10:50 [facility] 3.4 g/dl (missing) ANION GAP 2025-08-04 10:50 [facility] 4.0 (missing) (missing) ALBUMIN 2025-08-04 10:50 [facility] 4.0 g/dl As of April 2023 testing method has changed, this may include reference ranges. POTASSIUM 2025-08-04 10:50 [facility] 5.0 mmol/l As of April 2023 testing method has changed, this may include reference ranges. TOTAL PROTEIN 2025-08-04 10:50 [facility] 7.4 g/dl As of April 2023 testing method has changed, this may include reference ranges. GLUCOSE 2025-08-04 10:50 [facility] 70 mg/dl As of April 2023 testing method has changed, this may include reference ranges. GFR - MDRD 2025-08-04 10:50 [facility] 84 (missing) The IDMS-traceable MDRD Study Equation [...] updated December 2011. ALKALINE PHOSPHATASE 2025-08-04 10:50 [facility] 98 iu/l As of April 2023 testing method has changed, this may include reference ranges. Result panel 5 NUCLEATED RED BLOOD CELLS AUTO 2025-08-14 03:41 [facility] 0.0 /100wbc (missing) BASOPHILS # (AUTO) 2025-08-14 03:41 [facility] 0.0 10 3/ul (missing) NRBC ABSOLUTE COUNT (AUTO) 2025-08-14 03:41 [facility] 0.00 x10 3/ul (missing) EOSINOPHILS # (AUTO) 2025-08-14 03:41 [facility] 0.1 10 3/ul (missing) MONOCYTES # (AUTO) 2025-08-14 03:41 [facility] 0.3 10 3/ul (missing) BILIRUBIN,TOTAL 2025-08-14 03:41 [facility] 0.3 mg/dl As of April 2023 testing method has changed, this may include reference ranges. LYMPHOCYTES # (AUTO) 2025-08-14 03:41 [facility] 0.4 10 3/ul (missing) CREATININE 2025-08-14 03:41 [facility] 0.5 mg/dl As of April 2023 testing method has changed, this may include reference ranges. ALBUMIN/GLOBULIN RATIO 2025-08-14 03:41 [facility] 1.3 (missing) (missing) CALCIUM 2025-08-14 03:41 [facility] 10.0 mg/dl As of April 2023 testing method has changed, this may include reference ranges. HGB - HEMOGLOBIN 2025-08-14 03:41 [facility] 10.1 g/dl (missing) CHLORIDE 2025-08-14 03:41 [facility] 103 mmol/l As of April 2023 testing method has changed, this may include reference ranges. GFR - MDRD 2025-08-14 03:41 [facility] 124 (missing) The IDMS-traceable MDRD Study Equation [...] 2011. RED CELL DISTRIBUTION WIDTH 2025-08-14 03:41 [facility] 13.3 % (missing) SODIUM 2025-08-14 03:41 [facility] 133 mmol/l (missing) PLT - PLATELET COUNT 2025-08-14 03:41 [facility] 152 10 3/ul (missing) BUN - BLOOD UREA NITROGEN 2025-08-14 03:41 [facility] 17 mg/dl As of April 2023 testing method has changed, this may include reference ranges. AST ASPARTATE AMINOTRANSFERASE 2025-08-14 03:41 [facility] 19 iu/l As of April 2023 testing method has changed, this may include reference ranges. GLOBULIN 2025-08-14 03:41 [facility] 2.9 g/dl (missing) ALT ALANINE AMINOTRANSFERASE 2025-08-14 03:41 [facility] 21 iu/l As of April 2023 testing method has changed, this may include reference ranges. CARBON DIOXIDE - CO2 2025-08-14 03:41 [facility] 25 mmol/l As of April 2023 testing method has changed, this may include reference ranges. RED BLOOD COUNT 2025-08-14 03:41 [facility] 3.35 10 6/ul (missing) ALBUMIN 2025-08-14 03:41 [facility] 3.9 g/dl As of April 2023 testing method has changed, this may include reference ranges. MEAN CORPUSCULAR HEMOGLOBIN 2025-08-14 03:41 [facility] 30.1 pg (missing) HCT - HEMATOCRIT 2025-08-14 03:41 [facility] 30.6 % (missing) MEAN CORPUSCULAR HGB CONC 2025-08-14 03:41 [facility] 33.0 g/dl (missing) LIPASE 2025-08-14 03:41 [facility] 34 u/l As of April 2023 testing method has changed, this may include reference ranges. NEUTROPHILS # (AUTO) 2025-08-14 03:41 [facility] 4.2 10 3/ul (missing) POTASSIUM 2025-08-14 03:41 [facility] 4.3 mmol/l As of April 2023 testing method has changed, this may include reference ranges. ANION GAP 2025-08-14 03:41 [facility] 5.0 (missing) (missing) WHITE BLOOD COUNT 2025-08-14 03:41 [facility] 5.0 x10 3/ul (missing) TOTAL PROTEIN 2025-08-14 03:41 [facility] 6.8 g/dl As of April 2023 testing method has changed, this may include reference ranges. GLUCOSE 2025-08-14 03:41 [facility] 73 mg/dl As of April 2023 testing method has changed, this may include reference ranges. ALKALINE PHOSPHATASE 2025-08-14 03:41 [facility] 88 iu/l As of April 2023 testing method has changed, this may include reference ranges. MEAN PLATELET VOLUME 2025-08-14 03:41 [facility] 9.4 fl (missing) MEAN CORPUSCULAR VOLUME 2025-08-14 03:41 [facility] 91.3 fl (missing) Result panel 6 WBC,URINE 2025-08-14 05:23 [facility] 0-3 /hpf (missing) RBC,URINE 2025-08-14 05:23 [facility] 0-5 /hpf (missing) UROBILINOGEN,URI NE 2025-08-14 05:23 [facility] 0.2 (NORMAL) e.u./dl (missing) SPECIFIC GRAVITY,URINE 2025-08-14 05: [facility] 1.010 (missing ) (missing) PH,URINE 2025-08-14: [facility] 6.0 ph (missing) CLARITY,URINE 2025-08-14:23 [facility] CLEAR (missing ) (missing) CUL, URINE 2025-08-14:23 [facility] CXPCULTURE IN PROGRESS. RESULTS TO FOLLOW. (missing ) (missing) SQUAMOUS EPITHELIAL CELL,UR 2025-08-14:23 [facility] FEW Squamous (missing ) (missing) UR CULTURE IF IND 2025-08-14: [facility] INDICATED (missing ) (missing) URINE MICROSCOPIC INDICATED? 2025-08-14:23 [facility] INDICATED (missing ) (missing) NITRITE,URINE 2025-08-14:23 [facility] NEGATIVE (missing ) (missing) OCCULT BLOOD,URINE 2025-08-14:23 [facility] NEGATIVE (missing ) (missing) BILIRUBIN,URINE 2025-08-14:23 [facility] NEGATIVE (missing ) Bilirubin can be influenced by color interference. Please correlate positive results with clinical presentation GLUCOSE, URINE (UA) 2025-08-14:23 [facility] NEGATIVE mg/dl (missing) KETONES,URINE (UA) 2025-08-14:23 [facility] NEGATIVE mg/dl (missing) PROTEIN,URINE 2025-08-14:23 [facility] NEGATIVE mg/dl (missing) CUL, URINE 2025-08-14 05:23 [facility] [id number] COLONIES/ML Polymicrobial growth including (missing ) (missing) CUL, URINE 2025-08-14 05:23 [facility] [id number] . (missing ) (missing) CUL, URINE 2025-08-14 05:23 [facility] [id number] pathogens. This is suggestive of skin or other (missing ) (missing) BACTERIA,URINE 2025-08-14 05:23 [facility] Rare /hpf (missing) LEUKOCYTE ESTERASE, URINE 2025-08-14 05:23 [facility] SMALL (missing ) (missing) COLOR,URINE 2025-08-14 05:23 [facility] YELLOW (missing ) URINE CLEAN CATCH Result panel 7 GLUCOSE, WHOLE BLOOD 2025-08-14 16:37 [facility] 107 (missing) RN notified. Result panel 8 GLUCOSE, WHOLE BLOOD 2025-08-14 21:04 [facility] 110 (missing) (missing) Result panel 9 CREATININE 2025-08-15 05: [facility] 0.7 mg/dl As of April 2023 testing method has changed, this may include reference ranges. CHLORIDE 2025-08-15: [facility] 105 mmol/l As of April 2023 testing method has changed, this may include reference ranges. BUN - BLOOD UREA NITROGEN 2025-08-15: [facility] 11 mg/dl As of Apr testing method has changed, this may include reference ranges. RED CELL DISTRIBUTION WIDTH 2025-08-15: [facility] 13.9 % (mi ssing) SODIUM 2025-08-15 05: [facility] 135 mmol/l (missing) PLT - PLATELET COUNT 2025-08-15: [facility] 158 10 3/ul (missing) CARBON DIOXIDE - CO2 2025-08-15: [facility] 24 mmol/l As of April 2023 testing method has changed, this may include reference ranges. HCT - HEMATOCRIT 2025-08-15 05:28 [facility] 29.0 % (missing) RED BLOOD COUNT 2025-08-15:28 [facility] 3.17 10 6/ul (missing) POTASSIUM 2025-08-15 05:28 [facility] 3.8 mmol/l As of April 2023 testing method has changed, this may include reference ranges. MEAN CORPUSCULAR HEMOGLOBIN 2025-08-15 05:28 [facility] 30.3 pg (missing) MEAN CORPUSCULAR HGB CONC 2025-08-15 05:28 [facility] 33.1 g/dl (missing) WHITE BLOOD COUNT 2025-08-15 05:28 [facility] 5.7 x10 3/ul (missing) ANION GAP 2025-08-15 05:28 [facility] 6.0 (missing ) (missing) GLUCOSE 2025-08-15: [facility] 79 mg/dl As of April 2023 testing method has changed, this may include reference ranges. CALCIUM 2025-08-15:28 [facility] 8.6 mg/dl As of April 2023 testing method has changed, this may include reference ranges. GFR - MDRD 2025-08-15 05:28 [facility] 84 (missin g) The IDMS-traceable MDRD Study [...] December 2011. HGB - HEMOGLOBIN 2025-08-15 05:28 [facility] 9.6 g /dl (missing) MEAN PLATELET VOLUME 2025-08-15 05:28 [facility] 9.7 fl (missing) MEAN CORPUSCULAR VOLUME 2025-08-15 05:28 [facility] 91.5 fl (missing) Result panel 10 GLUCOSE, WHOLE BLOOD 2025-08-15 07:59 [facility] 77 (missing) RN notified. Result panel 11 GLUCOSE, WHOLE BLOOD 2025-08-15 09:00 [facility] 81 (missing) (missing) Result panel 12 GLUCOSE, WHOLE BLOOD 2025-08-15 12:05 [facility] 77 (missing) RN notified. Result panel 13 CREATININE 2025-08-15 16:29 [facility] 0.9 mg/dl As of April 2023 testing method has changed, this may include reference ranges. LACTIC ACID, VENOUS 2025-08-15 16:29 [facility] 1.6 mmol/l N As of April 2023 testing method has changed, this may include reference ranges. CHLORIDE 2025-08-15 16:29 [facility] 106 mmol/l As of April 2023 testing method has changed, this may include reference ranges. SODIUM 2025-08-15 16:29 [facility] 134 mmol/l (missing) BUN - BLOOD UREA NITROGEN 2025-08-15 16:29 [facility] 17 mg/dl As of Apr testing method has changed, this may include reference ranges. CARBON DIOXIDE - CO2 2025-08-15 16:29 [facility] 24 mmol/l As of Apr testing method has changed, this may include reference ranges. POTASSIUM 2025-08-15 16:29 [facility] 3.7 mmol/l As of April 2023 testing method has changed, this may include reference ranges. ANION GAP 2025-08-15 16:29 [facility] 4.0 (missing ) (missing) GFR - MDRD 2025-08-15 16:29 [facility] 63 (in g) The IDMS-traceable MDRD Study Equation [...] last updated December 2011. CALCIUM 2025-08-15 16:29 [facility] 9.2 mg/dl As of April 2023 testing method has changed, this may include reference ranges. GLUCOSE 2025-08-15 16:29 [facility] 97 mg/dl As of April 2023 testing method has changed, this may include reference ranges. Result panel 14 GLUCOSE, WHOLE BLOOD 2025-08-15 16:33 [facility] 91 (missing) RN notified. Result panel 15 GLUCOSE, WHOLE BLOOD 2025-08-15 20:33 [facility] 89 (missing) RN notified. Result panel 16 CREATININE 2025-08-16 05:54 [facility] 0.7 mg/dl As of April 2023 testing method has changed, this may include reference ranges. CALCIUM 2025-08-16 05:54 [facility] 10.2 mg/dl As of April 2023 testing method has changed, this may include reference ranges. CHLORIDE 2025-08-16 05:54 [facility] 106 mmol/l As of April 2023 testing method has changed, this may include reference ranges. SODIUM 2025-08-16 05:54 [facility] 137 mmol/l (missing) BUN - BLOOD UREA NITROGEN 2025-08-16 05:54 [facility] 18 mg/dl As of Apr testing method has changed, this may include reference ranges. CARBON DIOXIDE - CO2 2025-08-16 05:54 [facility] 27 mmol/l As of Apr testing method has changed, this may include reference ranges. POTASSIUM 2025-08-16 05:54 [facility] 3.8 mmol/l As of April 2023 testing method has changed, this may include reference ranges. ANION GAP 2025-08-16 05:54 [facility] 4.0 (missing ) (missing) THYROID STIMULATING HORMONE 2025-08-16 05:54 [facility] 4.75 uiu/ml (missing) GLUCOSE 2025-08-16 05:54 [facility] 78 mg/dl As of April 2023 testing method has changed, this may include reference ranges. GFR - MDRD 2025-08-16 05:54 [facility] 84 (missin g) The IDMS-traceable MDRD Study [...] caring for patients older than 70. References: http://www.nkdep.[facility].gov/lab-evaluatio n/gfr/creatinine-st and ardization, last updated December 2011. Result panel 17 GLUCOSE, WHOLE BLOOD 2025-08-16 08:08 [facility] 70 (missing) RN notified. Result panel 18 GLUCOSE, WHOLE BLOOD 2025-08-16 11:17 [facility] 88 (missing) (missing) Result panel 19 BILIRUBIN,TOTAL 2025-08-28 10:57 [facility] 0.2 mg/dl As of April 2023 testing method has changed, this may include reference ranges. CREATININE 2025-08-28 10:57 [facility] [facility] 0.5 mg/dl As of April 2023 testing method has changed, this may include reference ranges. ALBUMIN/GLOBULIN RATIO 2025-08-28 10:57 [facility] 1.0 (missing) (missing) CALCIUM 2025-08-28 10:57 [facility] 10.5 mg/dl As of April 2023 testing method has changed, this may include reference ranges. CHLORIDE 2025-08-28 10:57 [facility] 106 mmol/l As of April 2023 testing method has changed, this may include reference ranges. GFR - MDRD 2025-08-28 10:57 [facility] 124 (missing) The IDMS-traceable MDRD Study Equation [...] for patients older than 70. References: http://www.nkdep. [place].gov/lab-evalu ation/gfr/creatin ine-stand ardization, last updated December 2011. SODIUM 2025-08-28 10:57 [facility] 136 mmol/l Unknown AST ASPARTATE AMINOTRANSFERASE 2025-08-28 10:57 [facility] As of April 2023 testing method has changed, this may include reference ranges. BUN - BLOOD UREA NITROGEN 2025-08-28 10:[address] 21 mg/dl As of April 2023 testing method has changed, this may include reference ranges. ALT ALANINE AMINOTRANSFERASE 2025-08-28 10:[address] 22 iu/l As of April 2023 testing method has changed, this may include reference ranges. CARBON DIOXIDE - CO2 2025-08-28 10:[address] 25 mmol/l As of April 2023 testing method has changed, this may include reference ranges. GLOBULIN 2025-08-28 10:57 [facility] 3.7 g/dl (missing) ALBUMIN 2025-08-28 10:[address] 3.7 g/dl As of April 2023 testing method has changed, this may include reference ranges. POTASSIUM 2025-08-28 10:[address] 4.6 mmol/l As of April 2023 testing method has changed, this may include reference ranges. ANION GAP 2025-08-28 10:57 [facility] 5.0 (missing) (missing) TOTAL PROTEIN 2025-08-28 10:[address] 7.4 g/dl As of April 2023 testing method has changed, this may include reference ranges. GLUCOSE 2025-08-28 10:[address] 82 mg/dl As of April 2023 testing method has changed, this may include reference ranges. ALKALINE PHOSPHATASE 2025-08-28 10:57 [facility] 97 iu/l As of April 2023 testing method has changed, this may include reference ranges. Result panel 20 GLUCOSE, WHOLE BLOOD 2025-08-28 23:26 [facility] 84 (missing) (missing) Result panel 21 NUCLEATED RED BLOOD CELLS AUTO 2025-08-28 23:53 [facility] 0.0 /100wbc (missing) BASOPHILS # (AUTO) 2025-08-28 23:[address] 0.0 10 3/ul (missing) NRBC ABSOLUTE COUNT (AUTO) 2025-08-28 23:53 [facility] 0.00 x10 3/ul (missing) EOSINOPHILS # (AUTO) 2025-08-28 23:53 [facility] 0.1 10 3/ul (missing) MONOCYTES # (AUTO) 2025-08-28 23:53 [facility] 0.2 10 3/ul (missing) BILIRUBIN,TOTAL 2025-08-28 23:[address] [facility] 0.2 mg/dl As of April 2023 testing method has changed, this may include reference ranges. LYMPHOCYTES # (AUTO) 2025-08-28 23:53 [facility] 0.4 10 3/ul (missing) CREATININE 2025-08-28 23:53 [facility] 0.5 mg/dl As of April 2023 testing method has changed, this may include reference ranges. ALBUMIN/GLOBULIN RATIO 2025-08-28 23:53 [facility] 1.1 (missing) (missing) CALCIUM 2025-08-28 23:53 [facility] 10.3 mg/dl As of April 2023 testing method has changed, this may include reference ranges. CHLORIDE 2025-08-28 23:53 [facility] 103 mmol/l As of April 2023 testing method has changed, this may include reference ranges. GFR - MDRD 2025-08-28 23:53 [facility] 124 (missing) The IDMS-traceable MDRD Study Equation [...] 2011. RED CELL DISTRIBUTION WIDTH 2025-08-28 23:53 [facility] 13.8 % (missing) SODIUM 2025-08-28 23:53 [facility] 132 mmol/l (missing) LIPASE 2025-08-28 23:53 [facility] 15 u/l As of April 2023 testing method has changed, this may include reference ranges. AST ASPARTATE AMINOTRANSFERASE 2025-08-28 23:53 [facility] 16 iu/l As of April 2023 testing method has changed, this may include reference ranges. ALT ALANINE AMINOTRANSFERASE 2025-08-28 23:53 [facility] 20 iu/l As of April 2023 testing method has changed, this may include reference ranges. BUN - BLOOD UREA NITROGEN 2025-08-28 23:53 [facility] 20 mg/dl As of April 2023 testing method has changed, this may include reference ranges. CARBON DIOXIDE - CO2 2025-08-28 23:53 [facility] 23 mmol/l As of April 2023 testing method has changed, this may include reference ranges. PLT - PLATELET COUNT 2025-08-28 23:53 [facility] 255 10 3/ul (missing) RED BLOOD COUNT 2025-08-28 23:53 [facility] 3.19 10 6/ul (missing) GLOBULIN 2025-08-28 23:53 [facility] 3.2 g/dl (missing) ALBUMIN 2025-08-28 23:53 [facility] 3.6 g/dl As of April 2023 testing method has changed, this may include reference ranges. HCT - HEMATOCRIT 2025-08-28 23:53 [facility] 30.2 % (missing) MEAN CORPUSCULAR HEMOGLOBIN 2025-08-28 23:53 [facility] 30.7 pg (missing) MEAN CORPUSCULAR HGB CONC 2025-08-28 23:53 [facility] 32.5 g/dl (missing) NEUTROPHILS # (AUTO) 2025-08-28 23:53 [facility] 4.2 10 3/ul (missing) POTASSIUM 2025-08-28 23:53 [facility] 4.3 mmol/l As of April 2023 testing method has changed, this may include reference ranges. WHITE BLOOD COUNT 2025-08-28 23:53 [facility] 4.9 x10 3/ul (missing) ANION GAP 2025-08-28 23:53 [facility] 6.0 (missing) (missing) TOTAL PROTEIN 2025-08-28 23:53 [facility] 6.8 g/dl As of April 2023 testing method has changed, this may include reference ranges. MEAN PLATELET VOLUME 2025-08-28 23:53 [facility] 8.9 fl (missing) ALKALINE PHOSPHATASE 2025-08-28 23:53 [facility] 85 iu/l As of April 2023 testing method has changed, this may include reference ranges. GLUCOSE 2025-08-28 23:53 [facility] 89 mg/dl As of April 2023 testing method has changed, this may include reference ranges. HGB - HEMOGLOBIN 2025-08-28 23:53 [facility] 9.8 g/dl (missing) MEAN CORPUSCULAR VOLUME 2025-08-28 23:53 [facility] 94.7 fl (missing) Result panel 22 NUCLEATED RED BLOOD CELLS AUTO 2025-08-29 10:25 [facility] 0.0 /100wbc (missing) EOSINOPHILS # (AUTO) 2025-08-29 10:25 [facility] 0.0 10 3/ul (missing) NRBC ABSOLUTE COUNT (AUTO) 2025-08-29 10:25 [facility] 0.00 x10 3/ul (missing) BASOPHILS # (AUTO) 2025-08-29 10:25 [facility] 0.1 10 3/ul (missing) BILIRUBIN,TOTAL 2025-08-29 10:25 [facility] [facility] 0.2 mg/dl As of April 2023 testing method has changed, this may include reference ranges. LYMPHOCYTES # (AUTO) 2025-08-29 10:25 [facility] 0.3 10 3/ul (missing) MONOCYTES # (AUTO) 2025-08-29 10:25 [facility] 0.4 10 3/ul (missing) CREATININE 2025-08-29 10:25 [facility] 0.5 mg/dl As of April 2023 testing method has changed, this may include reference ranges. ALBUMIN/GLOBULIN RATIO 2025-08-29 10:25 [facility] 1.0 (missing) (missing) HGB - HEMOGLOBIN 2025-08-29 10:25 [facility] 10.0 g/dl (missing) CHLORIDE 2025-08-29 10:25 [facility] 107 mmol/l As of April 2023 testing method has changed, this may include reference ranges. GFR - MDRD 2025-08-29 10:25 [facility] 124 (missing) The IDMS-traceable MDRD Study Equation [...] 2011. RED CELL DISTRIBUTION WIDTH 2025-08-29 10:25 [facility] 13.9 % (missing) SODIUM 2025-08-29 10:25 [facility] 136 mmol/l (missing) NEUTROPHILS # (AUTO) 2025-08-29 10:25 [facility] 14.1 10 3/ul (missing) AST ASPARTATE AMINOTRANSFERASE 2025-08-29 10:25 [facility] 15 iu/l As of April 2023 testing method has changed, this may include reference ranges. WHITE BLOOD COUNT 2025-08-29 10:25 [facility] 15.1 x10 3/ul (missing) BUN - BLOOD UREA NITROGEN 2025-08-29 10:25 [facility] 19 mg/dl As of April 2023 testing method has changed, this may include reference ranges. ALT ALANINE AMINOTRANSFERASE 2025-08-29 10:25 [facility] 20 iu/l As of April 2023 testing method has changed, this may include reference ranges. CARBON DIOXIDE - CO2 2025-08-29 10:25 [facility] 24 mmol/l As of April 2023 testing method has changed, this may include reference ranges. PLT - PLATELET COUNT 2025-08-29 10:25 [facility] 253 10 3/ul (missing) LIPASE 2025-08-29 10:25 [facility] 27 u/l As of April 2023 testing method has changed, this may include reference ranges. MEAN CORPUSCULAR HEMOGLOBIN 2025-08-29 10:25 [facility] 29.8 pg (missing) GLOBULIN 2025-08-29 10:25 [facility] 3.3 g/dl (missing) RED BLOOD COUNT 2025-08-29 10:25 [facility] 3.36 10 6/ul (missing) ALBUMIN 2025-08-29 10:25 [facility] 3.4 g/dl As of April 2023 testing method has changed, this may include reference ranges. POTASSIUM 2025-08-29 10:25 [facility] 3.8 mmol/l As of April 2023 testing method has changed, this may include reference ranges. MEAN CORPUSCULAR HGB CONC 2025-08-29 10:25 [facility] 31.5 g/dl (missing) HCT - HEMATOCRIT 2025-08-29 10:25 [facility] 31.7 % (missing) ANION GAP 2025-08-29 10:25 [facility] 5.0 (missing) (missing) TOTAL PROTEIN 2025-08-29 10:25 [facility] 6.7 g/dl As of April 2023 testing method has changed, this may include reference ranges. MEAN PLATELET VOLUME 2025-08-29 10:25 [facility] 8.7 fl (missing) CALCIUM 2025-08-29 10:25 [facility] 9.8 mg/dl As of April 2023 testing method has changed, this may include reference ranges. ALKALINE PHOSPHATASE 2025-08-29 10:25 [facility] 91 iu/l As of April 2023 testing method has changed, this may include reference ranges. MEAN CORPUSCULAR VOLUME 2025-08-29 10:25 [facility] 94.3 fl (missing) GLUCOSE 2025-08-29 10:25 [facility] 99 mg/dl As of April 2023 testing method has changed, this may include reference ranges. Result panel 23 UROBILINOGEN,URINE 2025-08-29 14:30 [facility] 0.2 (NORMAL) e.u./dl (missing) SPECIFIC GRAVITY,URINE 2025-08-29 14:30 [facility] 1.010 (missing) (missing) PH,URINE 2025-08-29 14:30 [facility] 6.0 ph (missing) CLARITY,URINE 2025-08-29 14:30 [...] Health YELLOW (missing) URINE RANDOM Result panel 24 NUCLEATED RED BLOOD CELLS AUTO 2025-09-13 14:46 [facility] 0.0 /100wbc (missing) BASOPHILS # (AUTO) 2025-09-13 14:46 [facility] 0.0 10 3/ul (missing) NRBC ABSOLUTE COUNT (AUTO) 2025-09-13 14:46 [facility] 0.00 x10 3/ul (missing) EOSINOPHILS # (AUTO) 2025-09-13 14:46 [facility] 0.1 10 3/ul (missing) MONOCYTES # (AUTO) 2025-09-13 14:46 [facility] 0.1 10 3/ul (missing) LYMPHOCYTES # (AUTO) 2025-09-13 14:46 [facility] 0.5 10 3/ul (missing) FREE T4 (FREE THYROXINE) 2025-09-13 14:46 [facility] 0.71 ng/dl Biotin at >10 ng/mL concentration may cause significant interference. MAGNESIUM 2025-09-13 14:46 [facility] 1.3 mg/dl As of April 2023 testing method has changed, this may include reference ranges. NEUTROPHILS # (AUTO) 2025-09-13 14:46 [facility] 1.6 10 3/ul (missing) MEAN PLATELET VOLUME 2025-09-13 14:46 [facility] 10.1 fl (missing) HGB - HEMOGLOBIN 2025-09-13 14:46 [facility] 10.1 g/dl (missing) PLT - PLATELET COUNT 2025-09-13 14:[address] [facility] 131 10 3/ul (missing) IRON 2025-09-13 14:46 [facility] 139 ug/dl As of April 2023 testing method has changed, this may include reference ranges. RED CELL DISTRIBUTION WIDTH 2025-09-13 14:46 [facility] 14.7 % (missing) WHITE BLOOD COUNT 2025-09-13 14:46 [facility] 2.4 x10 3/ul (missing) FERRITIN 2025-09-13 14:46 [facility] 202.9 ng/ml (missing) TRANSFERRIN 2025-09-13 14:46 [facility] 233 mg/dl As of April 2023 testing method has changed, this may include reference ranges. MEAN CORPUSCULAR HEMOGLOBIN 2025-09-13 14:46 [facility] 29.4 pg (missing) RED BLOOD COUNT 2025-09-13 14:46 [facility] 3.44 10 6/ul (missing) MEAN CORPUSCULAR HGB CONC 2025-09-13 14:46 [facility] 31.0 g/dl (missing) HCT - HEMATOCRIT 2025-09-13 14:46 [facility] 32.6 % (missing) TOTAL IRON BINDING CAPACITY 2025-09-13 14:46 [facility] 326 ug/dl (missing) % IRON SATURATION 2025-09-13 14:46 [facility] 43 % (missing) THYROID STIMULATING HORMONE 2025-09-13 14:46 [facility] 7.69 uiu/ml (missing) MEAN CORPUSCULAR VOLUME 2025-09-13 14:46 [facility] 94.8 fl (missing) SLIDE REVIEW? 2025-09-13 14:46 [facility] Indicated (missing) (missing) PLATELET ESTIMATE, MANUAL 2025-09-13 14:46 [facility] NORMAL ([id number]) (missing) (missing) PLATELET MORPHOLOGY 2025-09-13 14:46 [facility] NORMAL APPEARANCE (missing) (missing) RBC MORPHOLOGY (MULTIPLE) 2025-09-13 14:46 [facility] NORMAL APPEARANCE (missing) (missing) WBC MORPHOLOGY (MULTIPLE) 2025-09-13 14:46 [facility] NORMAL APPEARANCE (missing) (missing) Result panel 25 GLUCOSE, WHOLE BLOOD 2025-09-14 01:01 [facility] 77 (missing) (missing) Result panel 26 NUCLEATED RED BLOOD CELLS AUTO 2025-09-14 02:46 [facility] 0.0 /100wbc (missing) BASOPHILS # (AUTO) 2025-09-14 02:46 [facility] 0.0 10 3/ul (missing) NRBC ABSOLUTE COUNT (AUTO) 2025-09-14 02:46 [facility] 0.00 x10 3/ul (missing) EOSINOPHILS # (AUTO) 2025-09-14 02:46 [facility] 0.1 10 3/ul (missing) MONOCYTES # (AUTO) 2025-09-14 02:46 [facility] 0.1 10 3/ul (missing) BILIRUBIN,TOTAL 2025-09-14 02:46 [facility] 0.2 mg/dl As of April 2023 testing method has changed, this may include reference ranges. LYMPHOCYTES # (AUTO) 2025-09-14 02:46 [facility] 0.4 10 3/ul (missing) CREATININE 2025-09-14 02:46 [facility] 0.6 mg/dl As of April 2023 testing method has changed, this may include reference ranges. ALBUMIN/GLOBULIN RATIO 2025-09-14 02:46 [facility] 1.2 (missing) (missing) CALCIUM 2025-09-14 02:46 [facility] 10.0 mg/dl As of April 2023 testing method has changed, this may include reference ranges. GFR - MDRD 2025-09-14 02:46 [facility] 100 (missing) The IDMS-traceable MDRD Study [...] ine-stand ardization, last updated December 2011. CHLORIDE 2025-09-14 02:46 [facility] 111 mmol/l As of April 2023 testing method has changed, this may include reference ranges. LIPASE 2025-09-14 02:46 [facility] 118 u/l As of April 2023 testing method has changed, this may include reference ranges. PLT - PLATELET COUNT 2025-09-14 02:46 [facility] 123 10 3/ul (missing) SODIUM 2025-09-14 02:46 [facility] 136 mmol/l (missing) RED CELL DISTRIBUTION WIDTH 2025-09-14 02:46 [facility] 14.6 % (missing) GLUCOSE 2025-09-14 02:46 [facility] 145 mg/dl As of April 2023 testing method has changed, this may include reference ranges. CARBON DIOXIDE - CO2 2025-09-14 02:46 [facility] 19 mmol/l As of April 2023 testing method has changed, this may include reference ranges. ALT ALANINE AMINOTRANSFERASE 2025-09-14 02:46 [facility] 21 iu/l As of April 2023 testing method has changed, this may include reference ranges. BUN - BLOOD UREA NITROGEN 2025-09-14 02:46 [facility] 22 mg/dl As of April 2023 testing method has changed, this may include reference ranges. AST ASPARTATE AMINOTRANSFERASE 2025-09-14 02:46 [facility] 24 iu/l As of April 2023 testing method has changed, this may include reference ranges. RED BLOOD COUNT 2025-09-14 02:46 [facility] 3.26 10 6/ul (missing) GLOBULIN 2025-09-14 02:46 [facility] 3.3 g/dl (missing) ALBUMIN 2025-09-14 02:46 [facility] 3.8 g/dl As of April 2023 testing method has changed, this may include reference ranges. HCT - HEMATOCRIT 2025-09-14 02:46 [facility] 30.2 % (missing) MEAN CORPUSCULAR HEMOGLOBIN 2025-09-14 02:46 [facility] 30.4 pg (missing) MEAN CORPUSCULAR HGB CONC 2025-09-14 02:46 [facility] 32.8 g/dl (missing) NEUTROPHILS # (AUTO) 2025-09-14 02:46 [facility] 4.0 10 3/ul (missing) WHITE BLOOD COUNT 2025-09-14 02:46 [facility] 4.6 x10 3/ul (missing) POTASSIUM 2025-09-14 02:46 [facility] 5.6 mmol/l As of April 2023 testing method has changed, this may include reference ranges. ANION GAP 2025-09-14 02:46 [facility] 6.0 (missing) (missing) TOTAL PROTEIN 2025-09-14 02:46 [facility] 7.1 g/dl As of April 2023 testing method has changed, this may include reference ranges. ALKALINE PHOSPHATASE 2025-09-14 02:46 [facility] 85 iu/l As of April 2023 testing method has changed, this may include reference ranges. MEAN PLATELET VOLUME 2025-09-14 02:46 [facility] 9.3 fl (missing) HGB - HEMOGLOBIN 2025-09-14 02:46 [facility] 9.9 g/dl (missing) MEAN CORPUSCULAR VOLUME 2025-09-14 02:46 [facility] 92.6 fl (missing) Result panel 27 POTASSIUM 2025-09-14 03:41 [facility] 5.4 mmol/l As of April 2023 testing method has changed, this may include reference ranges. Result panel 28 UROBILINOGEN,URINE 2025-09-14 07:[address] 0.2 (NORMAL) e.u./dl (missing) SPECIFIC GRAVITY,URINE 2025-09-14 07:32 [facility] 1.005 (missing) (missing) PH,URINE 2025-09-14 07: [facility] [employer] 6.0 ph (missing) CLARITY,URINE 2025-09-14 07: [facility] CLEAR (missing) (missing) MUDS CUTOFF CONCENTRATIONS 2025-09-14 07: [facility] [employer] CUTOFF CONC BELOW: (missing) [facility] uses the PRO[employer] - [place] Drugs of Abuse Test System. It detects drug classes at the following cutoff concentrations: AMP Amphetamine (d-Amphetamine) 500 ng/mL BAR Barbiturates (Butalbital) 200 ng/mL BZO Benzodiazepines (Nordiazepam) 150 ng/mL BUP Buprenorphine (Buprenorphine) 10 ng/mL PAO Cocaine (Benzoylecgonine) 150 ng/mL MAMP Methamphetamine (d-Methamphetamine ) 500 ng/mL MTD Methadone (Methadone) 200 ng/mL OPI Opiates (Morphine) 100 ng/mL OXY Oxycodone (Oxycodone) 100 ng/mL PCP Phencyclidine (Phencyclidine) 25 ng/mL BUP Buprenorphine (Buprenorphine) 10 ng/mL THC Cannabinoids (21-cgr-8-carboxy- 9-THC) 50 ng/mL TCA Tricyclic Antidepressants (Desipramine) 300 ng/mL All drug screen results are unconfirmed. Results are to be used for medical (i.e. treatment) purposes only. Unconfirmed screening results must not be used for non-medical purposes (e.g., employment testing, legal testing). AMPHETAMINE SCREEN,URINE 2025-09-14 07:32 [facility] NE[facility]IVE (missing) (missing) BARBITURATE SCREEN,UR 2025-09-14 07: [address] NEGATIVE (missing) (missing) BENZODIAZEPINES SCREEN, URINE 2025-09-14 07: [facility] NEGATIVE (missing) (missing) BUPRENORPHINE SCREEN, URINE 2025-09-14: [facility] NEGATIVE (missing) (missing) COCAINE SCREEN URINE 2025-09-14 07:32 [facility] NEGATIVE (missing) (missing) LEUKOCYTE ESTERASE, URINE 2025-09-14 07:32 [facility] NEGATIVE (missing) (missing) METHADONE SCREEN, URINE 2025-09-14: [facility] NEGATIVE (missing) (missing) METHAMPHETAMINES SCREEN, URINE 2025-09-14 07:32 [facility] NEGATIVE (missing) (missing) NITRITE,URINE 2025-09-14 07:32 [facility] NEGATIVE (missing) (missing) OCCULT BLOOD,URINE 2025-09-14 07:32 [facility] NEGATIVE (missing) (missing) OXYCODONE SCREEN, URINE 2025-09-14 07:32 [facility] NEGATIVE (missing) (missing) PHENCYCLIDINE SCREEN, URINE 2025-09-14 07:32 [facility] NEGATIVE (missing) (missing) THC CANNABINOID SCREEN, URINE 2025-09-14 07:32 [facility] NEGATIVE (missing) (missing) TRICYCLIC ANTIDEPRESSANT,URINE 2025-09-14 07:32 [facility] NEGATIVE (missing) (missing) BILIRUBIN,URINE 2025-09-14 07:32 [facility] NEGATIVE (missing) Bilirubin can be influenced by color interference. Please correlate positive results with clinical presentation GLUCOSE, URINE (UA) 2025-09-14 07:32 [facility] NEGATIVE mg/dl (missing) KETONES,URINE (UA) 2025-09-14 07:32 [facility] NEGATIVE mg/dl (missing) PROTEIN,URINE 2025-09-14 07:32 [facility] NEGATIVE mg/dl (missing) UR CULTURE IF IND 2025-09-14 07:32 [facility] NOT INDICATED (missing) (missing) URINE MICROSCOPIC INDICATED? 2025-09-14 07:32 [facility] NOT INDICATED (missing) (missing) OPIATE SCREEN, URINE 2025-09-14 07:32 [facility] POSITIVE (missing) (missing) COLOR,URINE 2025-09-14 07:32 [facility] STRAW (missing) URINE CLEAN CATCH Result panel 29 FENTANYL SCREEN, URINE 2025-09-14 17:40 [facility] Negative (missing) [employer] uses [employer] ZI Fentanyl (Q) Enzyme Immunoassay. RESULT INTERPRETATION: This assay qualitatively detects norfentanyl in urine which is the major metabolite of fentanyl. A result greater than or equal to 5 ng/mL is considered presumptively positive for fentanyl exposure. CLINICAL SIGNIFICANCE: Presumptive positive results indicate norfentanyl concentrations above the assay cutoff. Due to possible cross-reactivity and potential interference, confirmatory testing by a definitive method (e.g., LC-MS/MS) is recommended for positive or unexpected findings. LIMITATIONS: This test is intended for qualitative screening and is unconfirmed. Concentrations below 5 ng/mL may not be reliably detected. False positives and false negatives are possible. Results are to be used for medical purposes only and can't be used for non-medical or legal purposes. Result panel 30 ETOH - ETHANOL 2025-09-14 18:[address] < 10.0 mg/dl Blood Alcohol Levels Level Sporadic Drinkers Chronic drinkers 100 mg/dL Legally intoxicated* Minimal signs 200-250 mg/dL Alertness lost, Effort needed to becoming lethargic maintain emotional and motor control 300-350 mg/dL Stupor to coma Drowsy and slow >500 mg/dL Possible Coma *The legal definition of intoxication varies. This assy is for medical decision making only. As of April 2023 testing method has changed, this may include reference ranges. TROPONIN I HIGH SENSITIVITY 2025-09-14 18:[address] 4.5 ng/l A HIGH SENSITIVITY TROPONIN result of >= 14.9 ng/L for females is considered POSITIVE. A HIGH SENSITIVITY TROPONIN result of >= 19.8 ng/L for males is considered POSITIVE. A HIGH SENSITIVITY TROPONIN result of >= 17.9 ng/L for unspecified is considered POSITIVE. Result panel 31 BASOPHILS # (AUTO) 2025-09-15 05:53 [facility] 0.0 10 3/ul (missing) NRBC ABSOLUTE COUNT (AUTO) 2025-09-15 05:53 [facility] 0.02 x10 3/ul (missing) EOSINOPHILS # (AUTO) 2025-09-15 05:53 [facility] 0.1 10 3/ul (missing) MONOCYTES # (AUTO) 2025-09-15 05:53 [facility] 0.2 10 3/ul (missing) LYMPHOCYTES # (AUTO) 2025-09-15 05:53 [facility] 0.4 10 3/ul (missing) NUCLEATED RED BLOOD CELLS AUTO 2025-09-15 05:53 [facility] 0.7 /100wbc (missing) CREATININE 2025-09-15 05:53 [facility] As of April 2023 testing method has changed, this may include reference ranges. MAGNESIUM 2025-09-15 05:53 [facility] 1.4 mg/dl As of April 2023 testing method has changed, this may include reference ranges. MEAN PLATELET VOLUME 2025-09-15 05:53 [facility] 10.3 fl (missing) ADRENOCORTICOTROPIC HORMONE 2025-09-15 05:53 [facility] 10.5 pg/ml ACTH reference interval for samples collected between 7 and 10 AM. Performed at: [facility] [address], [address], [place], [place] [id number] [employer] Repairer: Vance Garrett MD, Phone: [phone] CHLORIDE 2025-09-15 05:53 [facility] 116 mmol/l As of April 2023 testing method has changed, this may include reference ranges. PLT - PLATELET COUNT 2025-09-15 05:53 [facility] 120 10 3/ul (missing) RED CELL DISTRIBUTION WIDTH 2025-09-15 05:53 [facility] 14.9 % (missing) SODIUM 2025-09-15 05:[address] 142 mmol/l (missing) BUN - BLOOD UREA NITROGEN 2025-09-15 05:53 [facility] 18 mg/dl As of April 2023 testing method has changed, this may include reference ranges. ANION GAP 2025-09-15 05:53 [facility] 2.0 (missing ) (missing) NEUTROPHILS # (AUTO) 2025-09-15 05:53 [facility] 2.1 10 3/ul (missing) WHITE BLOOD COUNT 2025-09-15 05:53 [facility] 2.7 x10 3/ul (missing) CARBON DIOXIDE - CO2 2025-09-15 05:53 [facility] 24 mmol/l As of April 2023 testing method has changed, this may include reference ranges. HCT - HEMATOCRIT 2025-09-15 05:53 [facility] 28.4 % (missing) MEAN CORPUSCULAR HEMOGLOBIN 2025-09-15 05:53 [facility] 29.7 pg (missing) RED BLOOD COUNT 2025-09-15 05:53 [facility] 3.03 10 6/ul (missing) PHOSPHORUS 2025-09-15 05:53 [facility] 3.1 mg/dl As of April 2023 testing method has changed, this may include reference ranges. MEAN CORPUSCULAR HGB CONC 2025-09-15 05:53 [facility] 31.7 g/dl (missing) POTASSIUM 2025-09-15 05:53 [facility] 5.3 mmol/l As of April 2023 testing method has changed, this may include reference ranges. CORTISOL 2025-09-15 05:53 [facility] 7.3 ug/dl CORTISOL REFERENCE RANGES DETERMINED BY TIME OF SPECIMEN COLLECTION: 8AM 5.0-23.0 ug/dL 4PM 3.0-16.0 ug/dL AFTER 8PM <50% OF 8AM VALUE GLUCOSE 2025-09-15 05:53 [facility] 72 mg/dl As of April 2023 testing method has changed, this may include reference ranges. GFR - MDRD 2025-09-15 05:53 [facility] 84 (missing ) The IDMS-traceable MDRD Study Equation has been [...] valuation/gfr/c reatinine-stand ardization, last updated December 2011. HGB - HEMOGLOBIN 2025-09-15 05:53 [facility] 9.0 g/dl (missing) CALCIUM 2025-09-15 05:53 [facility] 9.2 mg/dl As of April 2023 testing method has changed, this may include reference ranges. MEAN CORPUSCULAR VOLUME 2025-09-15 05:53 [facility] 93.7 fl (missing) PLATELET ESTIMATE, MANUAL 2025-09-15 05:53 [facility] DECREASED (<130,000) (missing ) (missing) SLIDE REVIEW? 2025-09-15 05:53 [facility] Indicated (missing ) (missing) PLATELET MORPHOLOGY 2025-09-15 05:53 [facility] NORMAL APPEARANCE (missing ) (missing) RBC MORPHOLOGY (MULTIPLE) 2025-09-15 05:53 [facility] NORMAL APPEARANCE (missing ) (missing) WBC MORPHOLOGY (MULTIPLE) 2025-09-15 05:53 [facility] NORMAL APPEARANCE (missing ) (missing) Result panel 32 CORTISOL RESPONSE TO ACTH 2025-09-15 08:11 [facility] (missing) (missing) BASE 5.7 ug/dL Collection Time:0808 30MIN 17.2 ug/dL Collection Time:0848 60MIN 18.3 ug/dL Collection Time:0918 CORTISOL REFERENCE RANGES DETERMINED BY TIME OF SPECIMEN COLLECTION: 8AM 5.0-23.0 ug/dL 4PM 3.0-16.0 ug/dL AFTER 8PM <50% OF 8AM VALUE Result panel 33 NUCLEATED RED BLOOD CELLS AUTO 2025-09-17 14:22 [facility] 0.0 /100wbc (missing) BASOPHILS # (AUTO) 2025-09-17 14:22 [facility] 0.0 10 3/ul (missing) NRBC ABSOLUTE COUNT (AUTO) 2025-09-17 14:22 [facility] 0.00 x10 3/ul (missing) EOSINOPHILS # (AUTO) 2025-09-17 14:22 [facility] 0.1 10 3/ul (missing) MONOCYTES # (AUTO) 2025-09-17 14:22 [facility] 0.2 10 3/ul (missing) LYMPHOCYTES # (AUTO) 2025-09-17 14:22 [facility] 0.4 10 3/ul (missing) FREE T4 (FREE THYROXINE) 2025-09-17 14:22 [facility] 0.62 ng/dl Biotin at >10 ng/mL concentration may cause significant interference. MAGNESIUM 2025-09-17 14:22 [facility] 1.4 mg/dl As of April 2023 testing method has changed, this may include reference ranges. HGB - HEMOGLOBIN 2025-09-17 14:22 [facility] 10.0 g /dl (missing) PLT - PLATELET COUNT 2025-09-17 14:22 [facility] 116 10 3/ul (missing) RED CELL DISTRIBUTION WIDTH 2025-09-17 14:22 [facility] 14.6 % (nv ssing) NEUTROPHILS # (AUTO) 2025-09-17 14:22 [facility] 3.0 10 3/ul (missing) RED BLOOD COUNT 2025-09-17 14:22 [facility] 3.28 10 6/ul (missing) WHITE BLOOD COUNT 2025-09-17 14:22 [facility] 3.7 x10 3/ul (missing) MEAN CORPUSCULAR HEMOGLOBIN 2025-09-17 14:22 [facility] 30.5 pg (missing) HCT - HEMATOCRIT 2025-09-17 14:22 [facility] 30.9 % (missing) MEAN CORPUSCULAR HGB CONC 2025-09-17 14:22 [facility] 32.4 g/dl (missing) AMMONIA 2025-09-17 14:22 [facility] 53.4 umol/l As of April 2023 testing method has changed, this may include reference ranges. THYROID STIMULATING HORMONE 2025-09-17 14:22 [facility] 6.30 uiu/ml (missing) MEAN PLATELET VOLUME 2025-09-17 14:22 [facility] 9.5 fl (missing) MEAN CORPUSCULAR VOLUME 2025-09-17 14:22 [facility] 94.2 fl (missing) Result panel 34 BILIRUBIN,TOTAL 2025-09-23 15:11 [facility] 0.2 mg/dl As of April 2023 testing method has changed, this may include reference ranges. CREATININE 2025-09-23 15:11 [facility] 0.6 mg/dl As of April 2023 testing method has changed, this may include reference ranges. ALBUMIN/GLOBULIN RATIO 2025-09-23 15:11 [facility] 1.3 (missing) (missing) MAGNESIUM 2025-09-23 15:11 [facility] 1.3 mg/dl As of April 2023 testing method has changed, this may include reference ranges. CALCIUM 2025-09-23 15:11 [facility] 10.3 mg/dl As of April 2023 testing method has changed, this may include reference ranges. GFR - MDRD 2025-09-23 15:11 [facility] 100 (missing) The IDMS-traceable MDRD Study [...] ine-stand ardization, last updated December 2011. CHLORIDE 2025-09-23 15:11 [facility] 115 mmol/l As of April 2023 testing method has changed, this may include reference ranges. SODIUM 2025-09-23 15:11 [facility] 137 mmol/l Unknown CARBON DIOXIDE - CO2 2025-09-23 15:11 [facility] 19 mmol/l As of April 2023 testing method has changed, this may include reference ranges. BUN - BLOOD UREA NITROGEN 2025-09-23 15:11 [facility] 23 mg/dl As of April 2023 testing method has changed, this may include reference ranges. AST ASPARTATE AMINOTRANSFERASE 2025-09-23 15:11 [facility] 26 iu/l As of April 2023 testing method has changed, this may include reference ranges. ANION GAP 2025-09-23 15:11 [facility] 3.0 (missing) (missing) GLOBULIN 2025-09-23 15:11 [facility] 3.1 g/dl (missing) ALT ALANINE AMINOTRANSFERASE 2025-09-23 15:11 [facility] 38 iu/l As of April 2023 testing method has changed, this may include reference ranges. ALBUMIN 2025-09-23 15:11 [facility] 4.1 g/dl As of April 2023 testing method has changed, this may include reference ranges. POTASSIUM 2025-09-23 15:11 [facility] 5.8 mmol/l As of April 2023 testing method has changed, this may include reference ranges. TOTAL PROTEIN 2025-09-23 15:11 [facility] 7.2 g/dl As of April 2023 testing method has changed, this may include reference ranges. ALKALINE PHOSPHATASE 2025-09-23 15:11 [facility] 79 iu/l As of April 2023 testing method has changed, this may include reference ranges. GLUCOSE 2025-09-23 15:11 [facility] 85 mg/dl As of April 2023 testing method has changed, this may include reference ranges. Result panel 35 NUCLEATED RED BLOOD CELLS AUTO 2025-09-24 12:00 [facility] 0.0 /100wbc (missing) BASOPHILS # (AUTO) 2025-09-24 12:00 [facility] 0.0 10 3/ul (missing) NRBC ABSOLUTE COUNT (AUTO) 2025-09-24 12:00 [facility] 0.00 x10 3/ul (missing) EOSINOPHILS # (AUTO) 2025-09-24 12:00 [facility] 0.1 10 3/ul (missing) BILIRUBIN,TOTAL 2025-09-24 12:00 [facility] 0.2 mg/dl As of April 2023 testing method has changed, this may include reference ranges. MONOCYTES # (AUTO) 2025-09-24 12:00 [facility] 0.3 10 3/ul (missing) LYMPHOCYTES # (AUTO) 2025-09-24 12:00 [facility] 0.4 10 3/ul (missing) CREATININE 2025-09-24 12:00 [facility] 0.6 mg/dl As of April 2023 testing method has changed, this may include reference ranges. ALBUMIN/GLOBULIN RATIO 2025-09-24 12:00 [facility] 1.2 (missing) (missing) MAGNESIUM 2025-09-24 12:00 [facility] 1.3 mg/dl As of April 2023 testing method has changed, this may include reference ranges. GFR - MDRD 2025-09-24 12:00 [facility] 100 (missing) The IDMS-traceable MDRD Study [...] ation/gfr/creatin ine-stand ardization, last updated December 2011. MEAN PLATELET VOLUME 2025-09-24 12:00 [facility] 11.1 fl (missing) CHLORIDE 2025-09-24 12:00 [facility] 120 mmol/l Critical result CL 120 mmol/L called to and read back by URBAN Hastings RN/ED at 24-Sep-2025 13:08 by josie. As of April 2023 testing method has changed, this may include reference ranges. PLT - PLATELET COUNT 2025-09-24 12:00 [facility] 124 10 3/ul (missing) RED CELL DISTRIBUTION WIDTH 2025-09-24 12:00 [facility] 14.7 % (missing) SODIUM 2025-09-24 12:00 [facility] 143 mmol/l (missing) NEUTROPHILS # (AUTO) 2025-09-24 12:00 [facility] 2.4 10 3/ul (missing) RED BLOOD COUNT 2025-09-24 12:00 [facility] 2.94 10 6/ul (missing) CARBON DIOXIDE - CO2 2025-09-24 12:00 [facility] 20 mmol/l As of April 2023 testing method has changed, this may include reference ranges. AST ASPARTATE AMINOTRANSFERASE 2025-09-24 12:00 [facility] 22 iu/l As of April 2023 testing method has changed, this may include reference ranges. BUN - BLOOD UREA NITROGEN 2025-09-24 12:00 [facility] 22 mg/dl As of April 2023 testing method has changed, this may include reference ranges. HCT - HEMATOCRIT 2025-09-24 12:00 [facility] 27.9 % (missing) ANION GAP 2025-09-24 12:00 [facility] 3.0 (missing) (missing) GLOBULIN 2025-09-24 12:00 [facility] 3.0 g/dl (missing) WHITE BLOOD COUNT 2025-09-24 12:00 [facility] 3.2 x10 3/ul (missing) ALBUMIN 2025-09-24 12:00 [facility] 3.6 g/dl As of April 2023 testing method has changed, this may include reference ranges. MEAN CORPUSCULAR HEMOGLOBIN 2025-09-24 12:00 [facility] 30.6 pg (missing) MEAN CORPUSCULAR HGB CONC 2025-09-24 12:00 [facility] 32.3 g/dl (missing) ALT ALANINE AMINOTRANSFERASE 2025-09-24 12:00 [facility] 33 iu/l As of April 2023 testing method has changed, this may include reference ranges. POTASSIUM 2025-09-24 12:00 [facility] 5.6 mmol/l As of April 2023 testing method has changed, this may include reference ranges. TOTAL PROTEIN 2025-09-24 12:00 [facility] 6.6 g/dl As of April 2023 testing method has changed, this may include reference ranges. GLUCOSE 2025-09-24 12:00 [facility] 76 mg/dl As of April 2023 testing method has changed, this may include reference ranges. ALKALINE PHOSPHATASE 2025-09-24 12:00 [facility] 80 iu/l As of April 2023 testing method has changed, this may include reference ranges. HGB - HEMOGLOBIN 2025-09-24 12:00 [facility] 9.0 g/dl (missing) CALCIUM 2025-09-24 12:00 [facility] 9.7 mg/dl As of April 2023 testing method has changed, this may include reference ranges. MEAN CORPUSCULAR VOLUME 2025-09-24 12:00 [facility] 94.9 fl (missing) Result panel 36 GLUCOSE, WHOLE BLOOD 2025-09-25 01:45 [facility] 88 (missing) (missing) Result panel 37 ABNORMAL LYMPHS % (MANUAL) 2025-09-25 02:11 [facility] 0 % (missing) EOSINOPHILS # (MANUAL) 2025-09-25 02:11 [facility] 0.0 10 3/ul (missing) BASOPHILS # (AUTO) 2025-09-25 02:11 [facility] 0.0 10 3/ul (missing) NRBC ABSOLUTE COUNT (AUTO) 2025-09-25 02:11 [facility] 0.02 x10 3/ul (missing) BASOPHILS # (MANUAL) 2025-09-25 02:11 [facility] 0.1 10 3/ul (missing) EOSINOPHILS # (AUTO) 2025-09-25 02:11 [facility] 0.1 10 3/ul (missing) MONOCYTES # (MANUAL) 2025-09-25 02:11 [facility] 0.2 10 3/ul (missing) BILIRUBIN,TOTAL 2025-09-25 02:11 [facility] 0.2 mg/dl As of April 2023 testing method has changed, this may include reference ranges. MONOCYTES # (AUTO) 2025-09-25 02:11 [facility] 0.3 10 3/ul (missing) LYMPHOCYTES # (MANUAL) 2025-09-25 02:11 [facility] 0.3 10 3/ul (missing) LYMPHOCYTES # (AUTO) 2025-09-25 02:11 [facility] 0.4 10 3/ul (missing) CREATININE 2025-09-25 02:[facility] 0.6 mg/dl As of April 2023 testing method has changed, this may include reference ranges. NUCLEATED RED BLOOD CELLS AUTO 2025-09-25 02:11 [facility] 0.8 /100wb c (missing) NUCLEATED RBC (MANUAL) 2025-09-25 02:11 [facility] 1 % (missing) WBC MORPHOLOGY (MULTIPLE) 2025-09-25 02:11 [facility] 1+ TOXIC G (cinthya ng) (missing) MAGNESIUM 2025-09-25 02:11 [facility] 1.2 mg/dl As of April 2023 testing method has changed, this may include reference ranges. ALBUMIN/GLOBULIN RATIO 2025-09-25 02:11 [facility] 1.4 (cinthya ng) (missing) NEUTROPHILS # (AUTO) 2025-09-25 02:11 [facility] 1.7 10 3/ul (missing) NEUTROPHILS # (MANUAL) 2025-09-25 02:11 [facility] 1.9 10 3/ul (missing) CALCIUM 2025-09-25 02:11 [facility] 10.0 mg/dl As of April 2023 testing method has changed, this may include reference ranges. MEAN PLATELET VOLUME 2025-09-25 02:11 [facility] 10.4 fl (missing) TOTAL CELLS COUNTED 2025-09-25 02:11 [facility] 100 ([facility]) (missing) GFR - MDRD 2025-09-25 02:11 [facility] 100 ([facility]) The IDMS-traceable MDRD Study Equation has been [...] valuation/gfr/c reatinine-stand ardization, last updated December 2011. GLUCOSE 2025-09-25 02:11 [facility] 106 mg/dl As of April 2023 testing method has changed, this may include reference ranges. PLT - PLATELET COUNT 2025-09-25 02:11 [facility] 119 10 3/ul (missing) CHLORIDE 2025-09-25 02:11 [facility] 120 mmol/l Critical result CL 120 mmol/L called to and read back by GERALD Sepulveda ED RN at 25-Sep-2025 02:43 by trung. As of April 2023 testing method has changed, this may include reference ranges. RED CELL DISTRIBUTION WIDTH 2025-09-25 02:11 [facility] 14.9 % (missing) SODIUM 2025-09-25 02:11 [facility] 144 mmol/l (missing) AST ASPARTATE AMINOTRANSFERASE 2025-09-25 02:11 [facility] 19 iu/l As of April 2023 testing method has changed, this may include reference ranges. METAMYELOCYTES % (MANUAL) 2025-09-25 02:11 [facility] 2 % (missing) WHITE BLOOD COUNT 2025-09-25 02:11 [facility] 2.5 x10 3/ul (missing) GLOBULIN 2025-09-25 02:11 [facility] 2.7 g/dl (missing) CARBON DIOXIDE - CO2 2025-09-25 02:11 [facility] 21 mmol/l As of April 2023 testing method has changed, this may include reference ranges. BUN - BLOOD UREA NITROGEN 2025-09-25 02:11 [facility] 24 mg/dl As of April 2023 testing method has changed, this may include reference ranges. ANION GAP 2025-09-25 02:11 [facility] 3.0 (cinthya ng) (missing) RED BLOOD COUNT 2025-09-25 02:11 [facility] 3.20 10 6/ul (missing) ALBUMIN 2025-09-25 02:11 [facility] 3.7 g/dl As of April 2023 testing method has changed, this may include reference ranges. MEAN CORPUSCULAR HEMOGLOBIN 2025-09-25 02:11 [facility] 30.3 pg (missing) HCT - HEMATOCRIT 2025-09-25 02:11 [facility] 30.4 % (missing) MEAN CORPUSCULAR HGB CONC 2025-09-25 02:11 [facility] 31.9 g/dl (missing) ALT ALANINE AMINOTRANSFERASE 2025-09-25 02:11 [facility] 32 iu/l As of April 2023 testing method has changed, this may include reference ranges. BAND NEUTROPHILS % (MANUAL) 2025-09-25 02:11 [facility] 4 % (missing) POTASSIUM 2025-09-25 02:11 [facility] 5.6 mmol/l As of April 2023 testing method has changed, this may include reference ranges. TOTAL PROTEIN 2025-09-25 02:11 [facility] 6.4 g/dl As of April 2023 testing method has changed, this may include reference ranges. LIPASE 2025-09-25 02:11 [facility] 67 u/l As of April 2023 testing method has changed, this may include reference ranges. ALKALINE PHOSPHATASE 2025-09-25 02:11 [facility] 70 iu/l As of April 2023 testing method has changed, this may include reference ranges. HGB - HEMOGLOBIN 2025-09-25 02:11 [facility] 9.7 g/dl (missing) MEAN CORPUSCULAR VOLUME 2025-09-25 02:11 [facility] 95.0 fl (missing) PLATELET ESTIMATE, MANUAL 2025-09-25 02:11 [facility] DECREASED (<130,000) (cinthya ng) (missing) DIFFERENTIAL COMMENT 2025-09-25 02:11 [facility] MANUAL DIFFERENTIAL (cinthya ng) (missing) PLATELET MORPHOLOGY 2025-09-25 02:11 [facility] NORMAL APPEARANCE (cinthya ng) (missing) RBC MORPHOLOGY (MULTIPLE) 2025-09-25 02:11 [facility] NORMAL APPEARANCE (cinthya ng) (missing) Result panel 38 GLUCOSE, WHOLE BLOOD 2025-09-25 02:17 [facility] 107 (missing) (missing) Result panel 39 GLUCOSE, WHOLE BLOOD 2025-09-25 03:30 [facility] 89 (missing) (missing) Social History date description facility
[2025-09-26 08:54] LABS: HCT - HEMATOCRIT 33.2 % (37.0-47.0); HGB - HEMOGLOBIN 10.6 g/dL (12.0-16.0); MEAN PLATELET VOLUME 10.8 fL (7.9-10.8); NRBC ABSOLUTE COUNT (AUTO) 0.02 x10^3/uL; NUCLEATED RED BLOOD CELLS AUTO 0.4 /100WBC; PLT - PLATELET COUNT 128 10^3/uL (130-450); RED CELL DISTRIBUTION WIDTH 15.2 % (12.0-15.0)
[2025-09-26 09:08] LABS: PHOSPHORUS 3.1 mg/dL (2.5-5.0)
[2025-09-26 09:11] LABS: ALT ALANINE AMINOTRANSFERASE 33.0 IU/L (10-60); AST ASPARTATE AMINOTRANSFERASE 21.0 IU/L (10-42); BUN - BLOOD UREA NITROGEN 23.0 mg/dL (6-20); CARBON DIOXIDE - CO2 24.0 mmol/L (21-32); CREATININE 0.6 mg/dL (0.6-1.3); GFR - MDRD 100.0 (>89)
[2025-09-26] MEDS: SODIUM CHLORIDE 0.9% 1,000 ML IV STA ×2 (09:29→10:46)
[2025-09-26] MEDS: MAGNESIUM SULFATE 2 GRAM 2 GM/50 ML BAG IV ONE (09:29)
--- NOTE | 2025-09-26 11:31 | CT Report ---
PROCEDURE: CT Head WO INDICATIONS: somnolent, AMS TECHNIQUE: CT of the head was performed, without intravenous contrast. Reformats: Coronal and sagittal. For radiation dose reduction, the following was used: automated exposure control, adjustment of mA and/or kV according to patient size. COMPARISON: None. FINDINGS: Image quality: Diagnostic. CSF spaces: Basal cisterns are patent. No extra-axial fluid collections. Ventricles are normal in size and shape. Brain: No midline shift. No intracranial mass effect or hemorrhage. [place]- white matter interface is normal. No significant periventricular white matter hypoattenuation or volume loss. Skull and face: Calvarium and visualized facial bones are intact, without suspicious lesions. Sinuses: Visualized sinuses and mastoids are clear. IMPRESSION: No acute intracranial pathology. Reviewed by: Jose Chavez MD on 09/26/2025 11:28 AM [facility] Approved by: Jose Chavez MD on 09/26/2025 11:28 AM [facility] Station ID: [id number]
--- NOTE | 2025-09-26 11:48 | ED Physician Documentation ---
PD HPI ALTERED MENTAL STATUS Stated complaint Stated Complaint: GEN WEAKNESS Chief complaint Chief Complaint: Neuro History obtained from History obtained from: Patient and Family (Spouse) History of Present Illness Timing - onset: How many weeks ago (The patient's states she has been more somnolent and not eating as readily to the point of needing for him to spoon feed her particularly the past couple of weeks. General weakness. Has been here to the ER several times for electrolyte abnormalities and hydration.) Timing - duration: Weeks Timing - details: Gradual onset and Waxing and waning Quality / character: Less responsive Associated symptoms: NVD (Has loose stools often because of oral magnesium replacement. Has an ostomy with output.) and General weakness; No Fever, Headache, Dyspnea or Cough Contributing factors: No Diabetic, New medication (Most recent new medication was sertraline started in April. Other sedating prescription from February was for short-term hydroxyzine for anxiety. No other sedating medicines on her list.), Recent med change or Recent illness Basline status: Alert and oriented X 3 and Ambulatory; No Independent Recently seen: Emergency Dept Meds/Allgy Home Medications Ambulatory Orders Medication Instructions Recorded Confirmed amlodipine 5 mg tablet 5 mg PO DAILY 06/24/2409/17 levothyroxine 25 mcg tablet 25 mcg PO DAILY 01/08/25 1 11/17/24 thiamine mononitrate (vit B1) 100 100 mg PO DAILY 12/2809/17/25 mg tablet food supplemt, lactose-reduced 1 ea PO QID PRN low blo od sugar 03/06/25 09/17/25 (Ensure oral liquid) #237 mL glucose 2 gram chewable tablet 6 g (3 x 2 gram) PO QID PRN low 03/06/25 09/17/25 blood sugar #100 tabs doxazosin 1 mg tablet (Cardura) 1 mg PO QPM 03/14/25 1 11/17/24 hydrocodone 5 mg-acetaminophen 325 0.5 - 1 tab PO BID PRN severe pain 03/14/25 09/17/25 mg tablet #20 tabs magnesium oxide 400 mg (241.3 mg 400 mg PO BID #60 tab s 05/05/25 09/17/25 magnesium) tablet pantoprazole 40 mg tablet,delayed 40 mg PO QDAC #30 ta bs 05/05/25 09/17/25 release acetaminophen 500 mg tablet 500 - 1,000 mg PO BID PRN pain 05/13/25 09/17/25 cholecalciferol (vitamin D3) 25 50 mcg PO DAILY 09/17/25 mcg (1,000 unit) capsule (Vitamin D3) blood sugar diagnostic (FreeStyle #50 ea 07/09/2508/30 Precision Yoni Strips) blood-glucose sensor (FreeStyle #2 ea 08/12/25 5 Beba 2 Plus Sensor device) sertraline 50 mg tablet 50 mg PO DAILY 08/12/2508/30 polyethylene glycol 3350 17 gram 17 g PO DAILY #30 ea 08/16/25 09/17/25 oral powder packet mupirocin 2 % topical ointment 1 applic topical BID 09/17/25 (Centany) nystatin 100,000 unit/gram topical 1 applic topical BI D 09/14/25 09/17/25 cream sodium zirconium cyclosilicate 10 10 g PO DAILY 09/17/25 gram oral powder packet (Lokelma) zinc oxide-cod liver oil 40 % 1 applic topical DAILY 1 11/14/24 09/17/25 topical paste (Desitin) sodium chloride 1,000 mg soluble 1,000 mg PO QDAY #30 tabs 09/15/25 09/17/25 tablet Allergies Allergies Allergy/AdvReac Type Severity Reaction Status Date / Time Penicillins Allergy Anaphylaxis Verified 09/26/25 07:26 vancomycin Allergy Rash Verified 09/26/25 07:26 ciprofloxacin (From Cipro) AdvReac Intermediate Dizziness Verified 09/26/25 07:26 methocarbamol AdvReac Dizziness Verified 09/26/25 07:26 PFSH Active Problems All Active Problems (Updated 09/26/25 @ 11:48 by Leonardo Ca MD) Crohn's disease (Acute) Generalized weakness (Acute) Somnolence (Acute) Dehydration (Acute) Electrolyte and fluid disorder (Acute) Hypomagnesemia (Acute) Abnormal laboratory test (Acute) Medication management (Acute) Altered mental status (Acute) Hypertension (Chronic) Hypothyroid (Chronic) Leukocytosis (Acute) Constipation (Chronic) Somnolence (Acute) Crohn disease (Chronic) Abdominal pain (Acute) Contact dermatitis (Acute) Contact dermatitis due to feces (Acute) Grief (Acute) Ileostomy in place (Acute) Encounter for attention to ileostomy (Acute) Delayed gastric emptying (Acute) Hypomagnesemia (Acute) Flashbacks (Acute) Allergic conjunctivitis (Acute) Panic attack (Acute) Hyperkalemia (Acute) Hypothermia (Acute) Chronic pain (Acute) Depression (Acute) Parastomal hernia (Acute) Swelling of right lower extremity (Acute) Malabsorption (Acute) Weakness (Acute) Medical History Medical History (Updated 09/26/25 @ 11:48 by Leonardo Ca MD) History of lung abscess Urinary retention Insomnia Problem List clean-up per request of Phys. EHR Cmte Cellulitis of right leg Leukopenia Thrombocytopenia Chronic hyperkalemia History of seizure related to alcohol withdrawal Crohn disease Alcohol dependence in remission UTI (urinary tract infection) Surgical History Surgical History H/O colectomy with end ileostomy at age 13 Hx of neck surgery for an epidural abscess Hx of hernia repair parastomal Family History Family History (Updated 08/14/25 @ 12:20 by Adan Deng, JOSE) Mother Dementia Cancer Sister Cancer Social History Social History (Updated 08/14/25 @ 12:20 by Adan Deng RN) Smoking Status: Smoker with current status unk Second hand tobacco smoke exposure: No Do you dip or chew tobacco?: No Do you vape?: No Patient requests smoking cessation consult: No Initiate information on smoking cessation: No Living arrangement: At home Living Condition: With spouse/s.o. 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 Service: No POLST Patient has POLST: Yes POLST CPR Status: Attempt Resuscitation (CPR) Level of Medical Intervention: Full Treatment Exam Exam Vital Signs: Vital Signs x48h Temp Pulse Resp BP Pulse Ox 09/26/25 14:00 53 L 14 134/100 H 96 09/26/25 12:10 51 L 10 L 131/85 H 09/26/25 11:34 55 L 15 144/78 H 98 09/26/25 09:44 60 21 169/88 H 97 09/26/25 07:21 36.1 C L 60 23 156/92 H 97 Constitutional normal general appearance, no apparent distress and abnormal body habitus (thin) and (underweight) HENMT head/scalp atraumatic Eyes PERRL Respiratory normal respiratory effort and clear to auscultation bilaterally Cardiovascular normal heart rate noted, regular rhythm noted and no edema Gastrointestinal abdomen soft to palpation and nontender to palpation Ostomy bag with output. Neurology no focal motor deficit noted and no sensory deficits noted Psychiatry mental status abnormal (somnolent) (rouasable to tactile and verbal. Answers questions sluggishly. confused. ), cooperative and affect abnormality noted (flat) Skin skin color normal Results Vitals Vitals: Vital Signs - 24 hr 09/26/25 07:21 09/26/25 09:44 09/26/25 11:34 Temperature 36.1 C L Temperature Source Temporal Artery Scan Pulse Rate 60 60 55 L Respiratory Rate 23 21 15 Blood Pressure 156/92 H 169/88 H 144/78 H O2 Saturation 97 97 98 O2 Source Room air Room air Room air Pain Intensity 0 09/26/25 12:10 09/26/25 14:00 Temperature Temperature Source Pulse Rate 51 L 53 L Respiratory Rate 10 L 14 Blood Pressure 131/85 H 134/100 H O2 Saturation 96 O2 Source Room air Pain Intensity Oxygen O2 Source Room air Labs Labs: Laboratory Tests 09/26/25 09/26/25 09/26/25 07:20 08:47 14:01 WBC 4.9 RBC 3.55 L Hgb 10.6 L Hct 33.2 L MCV 93.5 MCH 29.9 MCHC 31.9 L RDW 15.2 H Plt Count 128 L MPV 10.8 Neut # (Auto) 4.0 Lymph # (Auto) 0.5 L [place] # (Auto) 0.3 Eos # (Auto) 0.1 Baso # (Auto) 0.0 Absolute Nucleated RBC 0.02 Nucleated RBC % 0.4 Sodium 142 Potassium 6.0 H* Chloride 113 H Carbon Dioxide 24 Anion Gap 5.0 L BUN 23 H Creatinine 0.6 Estimated GFR (MDRD) 100 Glucose 79 POC Whole Bld Glucose 81 Calcium 10.6 H Phosphorus 3.1 Magnesium 1.4 L Total Bilirubin 0.2 AST 21 ALT 33 Alkaline Phosphatase 87 Total Protein 7.6 Albumin 4.1 Globulin 3.5 Albumin/Globulin Ratio 1.2 Lipase 86 H TSH 10.20 H Free T4 Direct 0.56 L Urine Color LIGHT YELLOW Urine Clarity CLEAR Urine pH 6.0 Ur Specific [place] 1.020 Urine Protein NEGATIVE Urine Glucose (UA) NEGATIVE Urine Ketones NEGATIVE Urine Occult Blood NEGATIVE Urine Nitrite NEGATIVE Urine Bilirubin NEGATIVE Urine Urobilinogen 0.2 (NORMAL) Ur Leukocyte Esterase NEGATIVE Urine RBC 0-5 Urine WBC 0-3 Ur Squamous Epith Cells RARE Squamous Urine Bacteria Rare Urine Culture Comments NOT INDICATED Urine Opiates Screen POSITIVE H Ur Buprenorphine Scrn NEGATIVE Ur Oxycodone Screen NEGATIVE Urine Methadone Screen NEGATIVE Urine Fentanyl Screen Negative Ur Barbiturates Screen NEGATIVE Ur Tricyclics Screen NEGATIVE Ur Phencyclidine Scrn NEGATIVE Ur Amphetamine Screen NEGATIVE U Methamphetamines Scrn NEGATIVE U Benzodiazepines Scrn NEGATIVE Urine Cocaine Screen NEGATIVE U Cannabinoids Screen NEGATIVE Ur Drug Screen Comment CUTOFF CONC BELOW: 09/26/25 14:02 WBC RBC Hgb Hct MCV MCH MCHC RDW Plt Count MPV Neut # (Auto) Lymph # (Auto) [place] # (Auto) Eos # (Auto) Baso # (Auto) Absolute Nucleated RBC Nucleated RBC % Sodium Potassium Chloride Carbon Dioxide Anion Gap BUN Creatinine Estimated GFR (MDRD) Glucose POC Whole Bld Glucose 70 Calcium Phosphorus Magnesium Total Bilirubin AST ALT Alkaline Phosphatase Total Protein Albumin Globulin Albumin/Globulin Ratio Lipase TSH Free T4 Direct Urine Color Urine Clarity Urine pH Ur Specific [place] Urine Protein Urine Glucose (UA) Urine Ketones Urine Occult Blood Urine Nitrite Urine Bilirubin Urine Urobilinogen Ur Leukocyte Esterase Urine RBC Urine WBC Ur Squamous Epith Cells Urine Bacteria Urine Culture Comments Urine Opiates Screen Ur Buprenorphine Scrn Ur Oxycodone Screen Urine Methadone Screen Urine Fentanyl Screen Ur Barbiturates Screen Ur Tricyclics Screen Ur Phencyclidine Scrn Ur Amphetamine Screen U Methamphetamines Scrn U Benzodiazepines Scrn Urine Cocaine Screen U Cannabinoids Screen Ur Drug Screen Comment PD Medical Decision Making ED course Complexity details: re-evaluated patient (She is becoming a bit more responsive. Somnolent at rest with eyes closed but will now arouse to light tactile and sometimes verbal. She does confess that she has been taking some of the opiate pain medicines surreptitiously without her knowing. I think this has been the cause for her justine), considered differential (The patient is brought back to the ER by her because of somnolence and general weakness. She has had electrolyte abnormalities. He had been increasing her oral magnesium to twice normal at direction of ER providers. This has given her looser stools at her ostomy. generally weak. ) and d/w patient Reviewed Lab Results: Her magnesium level is below normal but increased from what it had been on the last few days. It is now 1.4. Her potassium is elevated at 6.0 which is interesting in the setting of a normal creatinine of 0.6. She does have output out of her ostomy. Presumption would be under hydration. She does take Lokelma regularly per her . I did check phosphorus as well and that is in the normal range. Sodium is okay. It is unclear the cause of her somnolence. I can do a CT scan to ensure no signs of subdural or mass effect. Refer you of her medication list shows only sedating meds prescribed were sertraline started in April with the same dose since then and also a prescription for hydroxyzine in February which was only a short-term limited number of medicines. Her denies her taking other sedating medicines. We did do a urine tox after a In-N-Out cath and was positive for opiates. The patient is still relatively sedate and not spontaneously eating and drinking readily. Her blood sugar did go down to 70 and we changed to a D5 half-normal saline. I feel the patient is not well stable at this point but the cause of her obtunded altered mental status is likely the surreptitious opioid use. I feel she would be best served by observation in the hospital to see that this clears without her having access to more and having increased oral intake to maintain hydration and blood sugar. I talked with the hospitalist who is in agreement. Discharge Plan Discharge Patient Disposition: ED Place in Observation Condition: Stable Clinical Impression: Electrolyte and fluid disorder, Dehydration, Somnolence, Generalized weakness, Crohn's disease Prescriptions: No Action amlodipine 5 MG tablet 5 mg PO DAILY Patient Comments: take 1 tablet by mouth once daily thiamine mononitrate (vit B1) 100 mg tablet 100 mg PO DAILY levothyroxine 25 mcg tablet 25 mcg PO DAILY cholecalciferol (vitamin D3) [Vitamin D3] 25 mcg (1,000 unit) capsule 50 mcg PO DAILY magnesium oxide 400 mg (241.3 mg magnesium) Tablet 400 mg PO BID Qty: 60 0RF pantoprazole 40 mg Tablet,Delayed Release (Dr/Ec) 40 mg PO QDAC Qty: 30 0RF acetaminophen 500 mg tablet 500 - 1,000 mg PO BID PRN (Reason: pain) polyethylene glycol 3350 17 gram Powder In Packet 17 g PO DAILY Qty: 30 0RF Desitin 40 % paste 1 applic topical DAILY Lokelma 10 gram powder in packet 10 g PO DAILY mupirocin [Centany] 2 % ointment 1 applic topical BID nystatin 100,000 unit/gram cream 1 applic topical BID sodium chloride 1,000 mg tablet,soluble 1,000 mg PO QDAY Qty: 30 0RF Ensure Liquid 1 ea PO QID PRN (Reason: low blood sugar) Qty: 237 0RF glucose 2 gram tablet,chewable 6 g PO QID PRN (Reason: low blood sugar) Qty: 100 0RF doxazosin [Cardura] 1 mg tablet 1 mg PO QPM hydrocodone-acetaminophen 5-325 mg tablet 0.5 - 1 tab PO BID PRN (Reason: severe pain ) Qty: 20 0RF (DME) FreeStyle Precision Yoni Strips Strip See Rx Instructions .Route Qty: 50 5RF Rx Instructions: Use as directed with Beba 2 meter to monitor blood sugar up to three times daily sertraline 50 mg tablet 50 mg PO DAILY (DME) FreeStyle Beba 2 Plus Sensor Device See Rx Instructions .Route Qty: 2 5RF Rx Instructions: As directed to monitor blood sugar. Replace every 14 days. Print Language: Frisian Stand Alone Forms: PCP List
[2025-09-26 14:18] LABS: AMPHETAMINE SCREEN,URINE NEGATIVE (NEGATIVE); BARBITURATE SCREEN,UR NEGATIVE (NEGATIVE); BENZODIAZEPINES SCREEN, URINE NEGATIVE (NEGATIVE); BUPRENORPHINE SCREEN, URINE NEGATIVE (NEGATIVE); COCAINE SCREEN URINE NEGATIVE (NEGATIVE); METHADONE SCREEN, URINE NEGATIVE (NEGATIVE); METHAMPHETAMINES SCREEN, URINE NEGATIVE (NEGATIVE); OPIATE SCREEN, URINE POSITIVE (NEGATIVE); THC CANNABINOID SCREEN, URINE NEGATIVE (NEGATIVE)
[2025-09-26 14:19] LABS: GLUCOSE, URINE (UA) NEGATIVE (NEGATIVE); KETONES,URINE (UA) NEGATIVE (NEGATIVE); OCCULT BLOOD,URINE NEGATIVE (NEGATIVE)
[2025-09-26 14:24] LABS: SQUAMOUS EPITHELIAL CELL,UR RARE Squamous (<= Few)
[2025-09-26] MEDS: DEXTROSE 5%-0.45% NACL 1,000 ML IV STA (14:48)
--- NOTE | 2025-09-26 15:02 | HISTORY & PHYSICAL EXAMINATION ---
Chief Complaint Chief Complaint Chief Complaint: AMS History of Present Illness Admitted From Admitted From:: ED History Obtained From Records Reviewed: [facility] History obtained from: EMR, Spouse, ED provider History of Present Illness HPI Comment/Other: This is a 65-year-old female well-known to our team. Last discharged from this institution 09/15. She has a history of IBD with longstanding ostomy and known parastomal hernia, chronic hyperkalemia, recurrent hypoglycemia, anxiety, hypertension, and frequent admissions over the past year. She has been seen in the ED 3 out of the last 3 days. She often presents for having acute encephalopathy. This hospitalization, she is had multiple electrolyte abnormalities over the past 3 days. She has been sleepy at home. In review of the ED records on 09/24, 09/25, and today, she has been getting her labs checked twice weekly by her primary care doctor. She has had hyperkalemia. They are treating with as needed Lokelma. She has inexplicably hypomagnesemia. She is on magnesium supplementation. Patient has been relatively asymptomatic other than that she has been more somnolent. Her is concerned that she is more weak. Has decreased responsiveness. She generally seems to be mentating normally here, somnolent but rousable. Her potassium is continue to increase. She has not gotten any intervention since she has been in the ED. She got IV fluids, IV mag. Her potassium has improved over the course the day today from 6.0-5.4. Her UDS is positive for opiates. She does take hydrocodone at home. Last filled July 28 for #120. Previously filled approximately 3 months earlier for #120 Meds/Allgy Home Medications Ambulatory Orders Medication Instructions Recorded Confirmed amlodipine 5 mg tablet 5 mg PO DAILY 06/24/2409/17 levothyroxine 25 mcg tablet 25 mcg PO DAILY 01/08/25 1 11/17/24 thiamine mononitrate (vit B1) 100 100 mg PO DAILY 12/2809/17/25 mg tablet food supplemt, lactose-reduced 1 ea PO QID PRN low blo od sugar 03/06/25 09/17/25 (Ensure oral liquid) #237 mL glucose 2 gram chewable tablet 6 g (3 x 2 gram) PO QID PRN low 03/06/25 09/17/25 blood sugar #100 tabs doxazosin 1 mg tablet (Cardura) 1 mg PO QPM 03/14/25 1 11/17/24 hydrocodone 5 mg-acetaminophen 325 0.5 - 1 tab PO BID PRN severe pain 03/14/25 09/17/25 mg tablet #20 tabs magnesium oxide 400 mg (241.3 mg 400 mg PO BID #60 tab s 05/05/25 09/17/25 magnesium) tablet pantoprazole 40 mg tablet,delayed 40 mg PO QDAC #30 ta bs 05/05/25 09/17/25 release acetaminophen 500 mg tablet 500 - 1,000 mg PO BID PRN pain 05/13/25 09/17/25 cholecalciferol (vitamin D3) 25 50 mcg PO DAILY 09/17/25 mcg (1,000 unit) capsule (Vitamin D3) blood sugar diagnostic (FreeStyle #50 ea 07/09/2508/30 Precision Yoni Strips) blood-glucose sensor (FreeStyle #2 ea 08/12/25 5 Beba 2 Plus Sensor device) sertraline 50 mg tablet 50 mg PO DAILY 08/12/2508/30 polyethylene glycol 3350 17 gram 17 g PO DAILY #30 ea 08/16/25 09/17/25 oral powder packet mupirocin 2 % topical ointment 1 applic topical BID 09/17/25 (Centany) nystatin 100,000 unit/gram topical 1 applic topical BI D 09/14/25 09/17/25 cream sodium zirconium cyclosilicate 10 10 g PO DAILY 09/17/25 gram oral powder packet (Lokelma) zinc oxide-cod liver oil 40 % 1 applic topical DAILY 1 11/14/24 09/17/25 topical paste (Desitin) sodium chloride 1,000 mg soluble 1,000 mg PO QDAY #30 tabs 09/15/25 09/17/25 tablet Allergies Allergies Allergy/AdvReac Type Severity Reaction Status Date / Time Penicillins Allergy Anaphylaxis Verified 09/26/25 07:26 vancomycin Allergy Rash Verified 09/26/25 07:26 ciprofloxacin (From Cipro) AdvReac Intermediate Dizziness Verified 09/26/25 07:26 methocarbamol AdvReac Dizziness Verified 09/26/25 07:26 PFSH Active Problems All Active Problems (Updated 09/26/25 @ 11:48 by Leonardo Ca MD) Crohn's disease (Acute) Generalized weakness (Acute) Somnolence (Acute) Dehydration (Acute) Electrolyte and fluid disorder (Acute) Hypomagnesemia (Acute) Abnormal laboratory test (Acute) Medication management (Acute) Altered mental status (Acute) Hypertension (Chronic) Hypothyroid (Chronic) Leukocytosis (Acute) Constipation (Chronic) Somnolence (Acute) Crohn disease (Chronic) Abdominal pain (Acute) Contact dermatitis (Acute) Contact dermatitis due to feces (Acute) Grief (Acute) Ileostomy in place (Acute) Encounter for attention to ileostomy (Acute) Delayed gastric emptying (Acute) Hypomagnesemia (Acute) Flashbacks (Acute) Allergic conjunctivitis (Acute) Panic attack (Acute) Hyperkalemia (Acute) Hypothermia (Acute) Chronic pain (Acute) Depression (Acute) Parastomal hernia (Acute) Swelling of right lower extremity (Acute) Malabsorption (Acute) Weakness (Acute) Medical History Medical History (Updated 09/26/25 @ 11:48 by Leonardo Ca MD) History of lung abscess Urinary retention Insomnia Problem List clean-up per request of Phys. EHR Cmte Cellulitis of right leg Leukopenia Thrombocytopenia Chronic hyperkalemia History of seizure related to alcohol withdrawal Crohn disease Alcohol dependence in remission UTI (urinary tract infection) Surgical History Surgical History H/O colectomy with end ileostomy at age 13 Hx of neck surgery for an epidural abscess Hx of hernia repair parastomal Family History Family History (Updated 08/14/25 @ 12:20 by Adan Deng RN) Mother Dementia Cancer Sister Cancer Social History Social History (Updated 08/14/25 @ 12:20 by Adan Deng RN) Smoking Status: Smoker with current status unk Second hand tobacco smoke exposure: No Do you dip or chew tobacco?: No Do you vape?: No Patient requests smoking cessation consult: No Initiate information on smoking cessation: No Living arrangement: At home Living Condition: With spouse/s.o. 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 NAD HEENT: NC/AT, normal appearance of external ears and nose. Hearing baseline. Cardiac: Regular rate and rhythm, no murmurs. Occasional skipped beats. Well- perfused extremities. Pulm: Lungs CTA bilaterally, no cough, no wheezes. No adventitial lung sounds. Normal effort on room air. Abdomen: Ostomy in place in the right abdomen, clear yellow output. Some surrounding erythema extending across the midline. Diffusely tender to palpation. Bowel tones present. Extremities: Moves all 4 extremities equally. Normal tone. Neuro: Face symmetric, CN II through XII intact grossly. No focal neurologic deficits. Speech is fluent. Gait exam deferred Psych: Mood anxious/depressed. Flattened affect. Reserved. Conclusion/Plan Problem List (1) Toxic metabolic encephalopathy: Plan: Patient a.m. presenting with a toxic metabolic encephalopathy. She presented with similar presentation 10 days ago. She is found of opiates on her UDS, and not supposed be taking them per her report and her 's report. She denies taking any recent opiates. Her behavior is such that she is somnolent, slow to respond. Apparently globally weak. Reportedly unable to ambulate. TSH is 10.5. Free T4 is low. No leukocytosis, hyperkalemia as below. Normal renal function. Normal BUN. Normal albumin. Normal protein. Calcium only mildly elevated at 10.6 on arrival. Liver enzymes normal. UA not indicative of infection. CT head in the ED with no acute abnormalities - Most of history was obtained through an independent historian. - Discussed with the ED provider, Dr. Ca. Given her electrolyte abnormalities, and her distance from baseline, we will admit to observation to see if she clears - Hypothyroidism as below - Hyperkalemia as below - Await med rec - Will treat her pain, as needed [place] ordered - Monitor CBC and electrolytes a.m. - Defer further fluids overnight, encourage oral hydration - PT to evaluate (2) Crohn disease: Qualifiers: Digestive disease complication type: other complication G astrointestinal tract location: unspecified location Qualified Code(s): K50.918 - Crohn's disease, unspecified, with other complication (3) Ileostomy in place: Plan: Patient with history of Crohn's disease with ileostomy placed 50 years ago. Age 13. Total colectomy secondary to her IBD. Recurrent parastomal hernia with plans for surgical correction in September with Dr. Arzola in [place]. Patient has history of recurrent small bowel obstruction in the setting of this. She is having good output through her ostomy at this time. No signs of acute obstruction. Of note she has been on a regular nondysphagia diet since this morning - Minced and moist diet given history of bowel obstruction - Maintain daily MiraLAX - Monitor BMP - Hopefully she can discharge before her surgery on 09/29 - will bring in the list of instructions she has preoperatively. (4) Hyponatremia: (5) Hypomagnesemia: Plan: Chronic history of hypomagnesemia. She is on magnesium replacement. Low initially on arrival, was corrected on repeat. shows me a 500 mg magnesium tablet that she reportedly takes 200 at night. This reportedly helps her sleep as well. She has been on salt tab replacement in the past for his history of hyponatremia. Her sodium is on the high end. Salt tabs are inappropriate for the strict replacement of sodium. Holding off and monitoring her labs. - Will give 800 mg formulary magnesium nightly - Monitor magnesium - Await med rec (6) Hyperkalemia: Plan: She reportedly takes scheduled Lokelma. They run out occasionally. The pharmacy does not stock this regularly at her retail pharmacy. Unclear etiology overall her renal function is normal. She is not on any medications that may be contributing. Last admission, we did evaluate for adrenal insufficiency and it was negative. Type IV RTA would contribute to this, but she is not particularly acidotic. - Will check urine potassium creatinine, calculate FEK - 1 dose Lokelma tonight - Monitor electrolytes as above, spot dose lokelma, moving forward (7) Hypothyroid: Plan: TSH last admission was 6.3, 7.7 prior to that. Now 10.2. She continues to have progressive untreated hypothyroidism. Her T4 dose at home is minimal even given her small stature. Normally takes levothyroxine 25 mcg. - Recommend recheck with PCP when not acutely ill - Will start T4 32.5 mcg - Will need to recheck TSH in 4 to 6 weeks (8) Depression: Plan: Patient started sertraline approximately 6 to 7 weeks ago. Per , her mood had improved since starting that. She has a flattened affect at this point in time. She subjectively reports that her mood is pretty good. PHQ 2 is 0. - Continue sertraline 50 mg daily Qualifiers: Depression Type: major depressive disorder Major depression recurrence: recurrent Active/Remission status: currently active Major depression episode severity: severe Psychotic features: without psychotic features Qualified Code(s): F33.2 - Major depressive disorder, recurrent severe without psychotic features Plan By problem as above. I spent a total of 68 minutes in the care of this patient today. This time was spent reviewing labs, vital signs, imaging, interviewing and examining the patient, and discussing plan of care with them and their other care providers. Prior notes were reviewed, prior results were reviewed. Tests ordered for the morning. Assessed using independent historian. Discussed her management with the ED provider. Decision was made to admit. [id number] Lab Results 09/26/25 08:47 09/26/25 14:55
[2025-09-26 15:14] LABS: BUN - BLOOD UREA NITROGEN 19.0 mg/dL (6-20); CARBON DIOXIDE - CO2 23.0 mmol/L (21-32); CREATININE 0.5 mg/dL (0.6-1.3); GFR - MDRD 124.0 (>89)
[2025-09-26] MEDS ORDERED: SODIUM CHLORIDE FLUSH 0.9% 10 ML SYRINGE IVP PRN (15:54)
[2025-09-26] MEDS ORDERED: ACETAMINOPHEN 325 MG TABLET PO PRN (15:54)
[2025-09-26] MEDS ORDERED: COD LIVER OIL/ZINC OXIDE 113 GM TUBE TOP PRN (16:32)
[2025-09-26] MEDS: SODIUM ZIRCONIUM CYCLOSILICATE 5 GM PACKET PO ONE (16:47)
[2025-09-26] MEDS: SODIUM CHLORIDE FLUSH 0.9% 10 ML SYRINGE IVP SCH (16:48)
[2025-09-26] MEDS: HYDROcod/ACETAM 5/325 MG TABLET PO PRN (16:51)
[2025-09-26] MEDS: MAGNESIUM OXIDE 400 MG TABLET PO SCH (17:00)
[2025-09-26] MEDS: DOXAZOSIN 1 MG TABLET PO SCH (21:37)
[2025-09-26] MEDS: NYSTATIN POWDER 15 GM TOP SCH (21:37)
[2025-09-26] MEDS: MAGNESIUM OXIDE 400 MG TABLET PO ONE (21:37)
[2025-09-27 05:38] LABS: HCT - HEMATOCRIT 27.7 % (37.0-47.0); HGB - HEMOGLOBIN 8.6 g/dL (12.0-16.0); MEAN PLATELET VOLUME 10.4 fL (7.9-10.8); NRBC ABSOLUTE COUNT (AUTO) 0.00 x10^3/uL; NUCLEATED RED BLOOD CELLS AUTO 0.0 /100WBC; PLT - PLATELET COUNT 99 10^3/uL (130-450); RED CELL DISTRIBUTION WIDTH 15.1 % (12.0-15.0)
[2025-09-27 05:53] LABS: ALT ALANINE AMINOTRANSFERASE 26.0 IU/L (10-60); AST ASPARTATE AMINOTRANSFERASE 18.0 IU/L (10-42); BUN - BLOOD UREA NITROGEN 16.0 mg/dL (6-20); CARBON DIOXIDE - CO2 22.0 mmol/L (21-32); CREATININE 0.5 mg/dL (0.6-1.3); GFR - MDRD 124.0 (>89)
[2025-09-27] MEDS: PANTOPRAZOLE 40 MG TABLET PO SCH (06:41)
[2025-09-27] MEDS: LEVOTHYROXINE 75 MCG TABLET PO SCH (06:41)
[2025-09-27] MEDS ORDERED: LEVOTHYROXINE 25 MCG TABLET PO SCH (07:00)
[2025-09-27] MEDS: SODIUM ZIRCONIUM CYCLOSILICATE 5 GM PACKET PO ONE (08:47)
[2025-09-27] MEDS: SERTRALINE 50 MG TABLET PO SCH (08:47)
[2025-09-27] MEDS: THIAMINE 100 MG TABLET PO SCH (08:48)
[2025-09-27] MEDS ORDERED: ENOXAPARIN 40 MG/0.4 ML SYRINGE SUBQ SCH (09:00)
--- NOTE | 2025-09-27 09:58 | PHARMACY PROGRESS NOTE ---
Best Possible Medication History Admit Date and Time: 09/26/25 8624 Home Medications Medication Instructions Recorded Confirmed Type amlodipine 5 mg tablet 5 mg PO DAILY 06/24/2409/27 History levothyroxine 25 mcg tablet 25 mcg PO DAILY 01/08/25 1 11/27/24 History thiamine mononitrate (vit B1) 100 100 mg PO DAILY 12/2809/27/25 History mg tablet food supplemt, lactose-reduced 1 ea PO QID PRN low blo od sugar 03/06/25 09/27/25 Rx (Ensure oral liquid) #237 mL glucose 2 gram chewable tablet 6 g (3 x 2 gram) PO QID PRN low 03/06/25 09/27/25 Rx blood sugar #100 tabs doxazosin 1 mg tablet (Cardura) 1 mg PO QPM 03/14/25 1 11/27/24 History hydrocodone 5 mg-acetaminophen 325 0.5 - 1 tab PO BID PRN severe pain 03/14/25 09/17/25 Rx mg tablet #20 tabs magnesium oxide 400 mg (241.3 mg 400 mg PO BID #60 tab s 05/05/25 09/27/25 Rx magnesium) tablet pantoprazole 40 mg tablet,delayed 40 mg PO QDAC #30 ta bs 05/05/25 09/27/25 Rx release acetaminophen 500 mg tablet 500 - 1,000 mg PO BID PRN pain 05/13/25 09/27/25 History cholecalciferol (vitamin D3) 25 50 mcg PO DAILY 09/27/25 History mcg (1,000 unit) capsule (Vitamin D3) blood sugar diagnostic (FreeStyle #50 ea 07/09/2508/31 Rx Precision Yoni Strips) blood-glucose sensor (FreeStyle #2 ea 08/12/25 5 Rx Beba 2 Plus Sensor device) sertraline 50 mg tablet 50 mg PO DAILY 08/12/2508/31 History polyethylene glycol 3350 17 gram 17 g PO DAILY #30 ea 08/16/25 09/27/25 Rx oral powder packet mupirocin 2 % topical ointment 1 applic topical BID 09/27/25 History (Centany) nystatin 100,000 unit/gram topical 1 applic topical BI D 09/14/25 09/27/25 History cream sodium zirconium cyclosilicate 10 10 g PO DAILY 09/27/25 History gram oral powder packet (Lokelma) zinc oxide-cod liver oil 40 % 1 applic topical DAILY 1 11/14/24 09/27/25 History topical paste (Desitin) sodium chloride 1,000 mg soluble 1,000 mg PO TID 09/2709/27/25 History tablet Processed by: Pharmacy Medications reviewed in ED?: Yes Medication History completed: Yes Patient Interview: Completed Secondary Source(s): Prescription bottles, Spouse/Significant other and Insurance records [facility] Statement: As the person ultimately responsible for medication therapy, providers are able to order a medication from an existing home medication list in [facility] via the "Reconcile Routine" prior to Confirmation of that medication by clinical support associate. Such practice is discouraged except when the physician, in their clinical judgment, deems that a medical need exists for a medication without regard to previous use.
[2025-09-27 13:27] VITALS: TEMP 97.3
--- NOTE | 2025-09-27 14:41 | Discharge Summary ---
"Discharge Summary Admit Date: 09/26/25 Discharge Date: 09/27/25 Discharging Provider: Ezequiel Bernal Primary Care Provider: Wendy Norris Code Status: Attempt Resuscitation Discharge Facility Name: Home with Home [facility] DIAGNOSES Discharge Diagnoses with Status of Each Condition: ## Acute toxic metabolic encephalopathy, resolved Recent multiple admissions with similar presentations. She has opiates on her UDS. Is reportedly not taking them per her . Patient denies any recent opiates. TSH 10.5, low free T4. No leukocytosis. Normal renal function, uremia, albumin, protein. Liver enzymes normal. UA not indicative of an infection. CT head with no acute abnormalities. Her encephalopathy was such that she was somnolent, slow to respond. Apparently globally weak. Unable to ambulate. By day of discharge, she was awake, alert, able to ambulate with the assistance of a cane which she does at home. Her electrolytes normalized without further IV repletion. - Home health orders placed - Hypothyroidism as below - She should continue treating her pain, [place] twice daily as needed ## Crohn disease ## Ileostomy in place Patient with history of Crohn disease with ileostomy placed 50 years ago. Age 13. Total colectomy secondary to her IBD. Recurrent parastomal hernia with plans for surgical correction in September with Dr. Arzola in [place]. Patient has history of recurrent small bowel obstruction in the setting of this. She is having good output through her ostomy at this time. No signs of acute obstruction. Of note she has been on a regular nondysphagia diet since this morning - Continue minced and moist diet. - Maintain daily MiraLAX - Plan for surgery still for 09/29, to call surgery center. - Patient has a list of preoperative instructions from her surgeon. ## Hyponatremia ## Hypomagnesemia Chronic history of hypomagnesemia. She is on magnesium replacement. Low initially on arrival, was corrected on repeat. She was reportedly on high levels of magnesium supplementation 1 g 3 times daily.This is causing her diarrhea. She has been on salt tab replacement in the past for his history of hyponatremia. Her sodium is on the high end. Salt tabs are inappropriate for the strict replacement of sodium. Holding off and monitoring her labs. - Magnesium at discharge 1.8, She is having diarrhea, transition to 500 mg magnesium twice daily - Continue to monitor electrolytes outpatient ## Hyperkalemia She reportedly takes scheduled Lokelma. They run out occasionally. The pharmacy does not stock this regularly at her retail pharmacy. Unclear etiology overall her renal function is normal. She is not on any medications that may be contributing. Last admission, we did evaluate for adrenal insufficiency and it was negative. Type IV RTA would contribute to this, but she is not particularly acidotic. Fractional excretion of potassium was 9, likely renal etiology of hyperkalemia. Transtubular potassium gradient would require send out labs from our lab. - Continue Lokelma - Recommend she follow-up with endocrinology versus nephrology regarding her multiple electrolyte derangements ## Hypothyroid TSH last admission was 6.3, 7.7 prior to that. Now 10.2. She continues to have progressive Undertreated hypothyroidism. Her T4 dose at home is minimal even given her small stature. Normally takes levothyroxine 25 mcg. - Increase T4 to 37.5, this was sent to her pharmacy - Will need to recheck TSH in 4 to 6 weeks ## Depression Patient started sertraline approximately 6 to 7 weeks ago. Per , her mood had improved since starting that. She has a flattened affect at this point in time. She subjectively reports that her mood is pretty good. PHQ 2 is 0. - Continue sertraline 50 mg daily HPI History of Present Illness: This is a 65-year-old female well-known to our team. Last discharged from this institution 09/15. She has a history of IBD with longstanding ostomy and known parastomal hernia, chronic hyperkalemia, recurrent hypoglycemia, anxiety, hypertension, and frequent admissions over the past year. She has been seen in the ED 3 out of the last 3 days. She often presents for having acute encephalopathy. This hospitalization, she is had multiple electrolyte abnormalities over the past 3 days. She has been sleepy at home. In review of the ED records on 09/24, 09/25, and today, she has been getting her labs checked twice weekly by her primary care doctor. She has had hyperkalemia. They are treating with as needed Lokelma. She has inexplicably hypomagnesemia. She is on magnesium supplementation. Patient has been relatively asymptomatic other than that she has been more somnolent. Her is concerned that she is more weak. Has decreased responsiveness. She generally seems to be mentating normally here, somnolent but rousable. Her potassium is continue to increase. She has not gotten any intervention since she has been in the ED. She got IV fluids, IV mag. Her potassium has improved over the course the day today from 6.0-5.4. Her UDS is positive for opiates. She does take hydrocodone at home. Last filled July 28 for #120. Previously filled approximately 3 months earlier for #120 Patient is full code with full code POLST on file. Continues to endorse this during this hospitalization. Her is her surrogate decision maker. He is at bedside during admission. CONSULTS | PROCEDURES Consultations: None Procedures: None HOSPITAL COURSE Hospital Course: Patient was admitted with acute toxic/metabolic encephalopathy. Progressed over the days preceding this admission. She was monitored in the hospital off of fluids. She normalized on her own. This supports likely polypharmacy. She had opiates on her UDS on admission, may not be tolerating them. Recommend caution moving forward, and the and patient are both agreeable. Further, her TSH is progressively elevated for past few admissions. I have opted to increase her dose to 37.5 mg. I recommend she follow-up with her primary care doctor to have this level checked in 4 to 6 weeks. Finally, she has multiple electrolyte derangements that are being adjusted piecemeal. She has hypomagnesemia on magnesium supplementation, hyperkalemia on Lokelma, hyponatremia on sodium tablets, hypoglycemia with a CGM at 1 point. Given all these multiple electrolyte derangements, I recommend she follow-up with either nephrology or endocrinology given that there is likely a renal or hormonal etiology driving this process. She has had negative workup for adrenal insufficiency at her last hospitalization. I discussed this with the patient and the family and they are agreeable to consultation. Given the patient's debilitated state, therapy recommended for home health with PT, group home. [facility] may be able to assist with troubleshooting her ostomy moving forward to Patient was seen and evaluated on the day of discharge. She is doing well. She was able to eat both breakfast and lunch. She was able to ambulate with nursing prior to discharge. She walked to the bathroom with a cane which she uses at home. Her was able to bring her walker so she could better ambulate out of the hospital. Prolonged discussion with her on day of discharge, his questions were answered. She is planning to attend to surgery on Saturday 09/29 for hopeful correction of her parastomal hernia. Medically safe to do so from my perspective. ALLERGIES Allergies Allergy/AdvReac Type Severity Reaction Status Date / Time Penicillins Allergy Anaphylaxis Verified 09/26/25 07:26 vancomycin Allergy Rash Verified 09/26/25 07:26 ciprofloxacin (From Cipro) AdvReac Intermediate Dizziness Verified 09/26/25 07:26 methocarbamol AdvReac Dizziness Verified 09/26/25 07:26 MEDICATIONS Ambulatory Orders Medication Instructions Recorded Confirmed amlodipine 5 mg tablet 5 mg PO DAILY 06/24/2409/27 thiamine mononitrate (vit B1) 100 100 mg PO DAILY 12/2809/27/25 mg tablet food supplemt, lactose-reduced 1 ea PO QID PRN low blo od sugar 03/06/25 09/27/25 (Ensure oral liquid) #237 mL glucose 2 gram chewable tablet 6 g (3 x 2 gram) PO QID PRN low 03/06/25 09/27/25 blood sugar #100 tabs doxazosin 1 mg tablet (Cardura) 1 mg PO QPM 03/14/25 1 11/27/24 hydrocodone 5 mg-acetaminophen 325 0.5 - 1 tab PO BID PRN severe pain 03/14/25 09/17/25 mg tablet #20 tabs pantoprazole 40 mg tablet,delayed 40 mg PO QDAC #30 ta bs 05/05/25 09/27/25 release acetaminophen 500 mg tablet 500 - 1,000 mg PO BID PRN pain 05/13/25 09/27/25 cholecalciferol (vitamin D3) 25 50 mcg PO DAILY 09/27/25 mcg (1,000 unit) capsule (Vitamin D3) blood sugar diagnostic (FreeStyle #50 ea 07/09/2508/31 Precision Yoni Strips) blood-glucose sensor (FreeStyle #2 ea 08/12/25 5 Beba 2 Plus Sensor device) sertraline 50 mg tablet 50 mg PO DAILY 08/12/2508/31 polyethylene glycol 3350 17 gram 17 g PO DAILY #30 ea 08/16/25 09/27/25 oral powder packet mupirocin 2 % topical ointment 1 applic topical BID 09/27/25 (Centany) nystatin 100,000 unit/gram topical 1 applic topical BI D 09/14/25 09/27/25 cream sodium zirconium cyclosilicate 10 10 g PO DAILY 09/27/25 gram oral powder packet (Lokelma) zinc oxide-cod liver oil 40 % 1 applic topical DAILY 1 11/14/24 09/27/25 topical paste (Desitin) levothyroxine 75 mcg tablet 37.5 mcg (1/2 x 75 mcg) PO QDAC 09/27/25 #30 tabs magnesium oxide 400 mg (241.3 mg 500 mg (1.25 x 400 mg (241.3 mg 09/27/25 09/27/25 magnesium) tablet magnesium)) PO BID #60 tabs sodium chloride 1,000 mg soluble 1,000 mg PO TID 09/2709/27/25 tablet PHYSICAL EXAM AT DISCHARGE Vital Signs: Vital Signs x48h Temp Pulse Resp BP Pulse Ox 09/27/25 15:45 36.3 C L 53 L 18 127/72 99 09/27/25 15:45 36.3 C L 53 L 18 127/72 99 09/27/25 13:00 36.3 C L 52 L 16 120/66 98 LABS 09/27/25 05:13 09/27/25 05:13 FOLLOW UP Follow Up: Follow-up with PCP within the next 4 weeks. Recommend TSH in 4 to 6 weeks Recommend referral to endocrinology given multiple electrolyte derangements. TIME SPENT Time Spent in Discharge (Minutes): 41 Discharge Plan Discharge Patient Disposition: 06 Home Health Service Condition: Stable Medically Cleared Date:: 09/27/25 Prescriptions: New levothyroxine 75 mcg Tablet 37.5 mcg PO QDAC Qty: 30 0RF Continued amlodipine 5 MG tablet 5 mg PO DAILY Patient Comments: take 1 tablet by mouth once daily thiamine mononitrate (vit B1) 100 mg tablet 100 mg PO DAILY cholecalciferol (vitamin D3) [Vitamin D3] 25 mcg (1,000 unit) capsule 50 mcg PO DAILY pantoprazole 40 mg Tablet,Delayed Release (Dr/Ec) 40 mg PO QDAC Qty: 30 0RF acetaminophen 500 mg tablet 500 - 1,000 mg PO BID PRN (Reason: pain) polyethylene glycol 3350 17 gram Powder In Packet 17 g PO DAILY Qty: 30 0RF Desitin 40 % paste 1 applic topical DAILY Lokelma 10 gram powder in packet 10 g PO DAILY mupirocin [Centany] 2 % ointment 1 applic topical BID nystatin 100,000 unit/gram cream 1 applic topical BID sodium chloride 1,000 mg tablet,soluble 1,000 mg PO TID Ensure Liquid 1 ea PO QID PRN (Reason: low blood sugar) Qty: 237 0RF glucose 2 gram tablet,chewable 6 g PO QID PRN (Reason: low blood sugar) Qty: 100 0RF doxazosin [Cardura] 1 mg tablet 1 mg PO QPM hydrocodone-acetaminophen 5-325 mg tablet 0.5 - 1 tab PO BID PRN (Reason: severe pain ) Qty: 20 0RF (DME) FreeStyle Precision Yoni Strips Strip See Rx Instructions .Route Qty: 50 5RF Rx Instructions: Use as directed with Beba 2 meter to monitor blood sugar up to three times daily sertraline 50 mg tablet 50 mg PO DAILY (DME) FreeStyle Beba 2 Plus Sensor Device See Rx Instructions .Route Qty: 2 5RF Rx Instructions: As directed to monitor blood sugar. Replace every 14 days. Changed magnesium oxide 400 mg (241.3 mg magnesium) Tablet 500 mg PO BID Qty: 60 0RF Discontinued levothyroxine 25 mcg tablet 25 mcg PO DAILY Diet: Soft Interventions: Belongings Inventory Last Done: 09/26/25 16:17 Discharge Last Done: 09/27/25 16:31 Discharge Checklist - Nursing Last Done: 09/27/25 16:37 Discharge Vital Signs (30 Minutes) Last Done: 09/27/25 15:45 Health Concerns: You admitted to the hospital with concerns for altered mentation. You had multiple electrolyte abnormalities. You were not eating and drinking, leading to dehydration. You received some IV fluids initially on arrival. This corrected most of your metabolic derangements. You are having significant output from your ostomy. I do recommend we cut back on your magnesium supplementation. Lets go back to 500 mg twice daily 1 in the morning and 1 at night. Additionally you are found to have low thyroid levels. You have had progressively lower thyroid levels over the last few months. I think we should go up on your dose of levothyroxine to 37.5 mg. You should have these levels checked by your primary care doctor in the next 4 to 6 weeks. In addition: Continue taking medications as prescribed Continue taking your presurgical regimen as recommended by your surgeon Attend your surgery on 09/29 You should follow-up with an pole peeling machine operator given your multiple electrolyte abnormalities and concern for hypoaldosteronism Call 911 or go to the emergency room immediately if you develop: * Confusion, extreme drowsiness, or difficulty waking up * Seizures * Severe weakness or inability to stand * Chest pain or difficulty breathing * Inability to keep down any fluids for more than 12 hours * No urination for more than 8-12 hours * Severe headache with vomiting Follow-Up Care Schedule a follow-up appointment with your doctor within 3-7 days You may need blood tests to recheck your electrolyte levels Bring a list of all medications you are taking to your appointment Print Language: Bengali Patient Instructions: Ileostomy Dc Follow-up Care: WENDY NORRIS ARNP [Primary Care Provider, Nurse Practitioner] Vitals documented within 30 minutes of discharge?: Yes"
[2025-09-27 16:21] VITALS: BP 127/72; O2SAT 99
[2025-09-27] MEDS ORDERED: MAGNESIUM OXIDE 400 MG TABLET PO SCH (21:00)
== END 2025-09-27 16:10 | disposition home health service (06) ==
LOC: ED 07:07 → MS2 07:07
PROVIDERS: ADMIT Student in an Organized Health Care Education/Training Program; ATTEND Student in an Organized Health Care Education/Training Program

== ENCOUNTER 2025-10-01 21:45 | Observation (INO) ==
--- OUTSIDE RECORDS SUMMARY | 2025-10-01 22:01 | EXTERNAL MEDICAL SUMMARY RPT | Continuity of Care Document ---
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) [facility] 2025-07-04 10:08 Major depressive dis order, recurrent severe without psychotic features [facility] 2025-07-04 10:08 Panic disorder [episodic paroxy smal anxiety] [facility] 2025-07-04 10:08 Adjustment disorder with depres sed mood [facility] 2025-07-04 10:08 Other chronic postprocedural pa in [facility] 2025-07-04 10:08 Functional dyspepsia Replaced by [facility] 2025-07-04 10:08 Parastomal hernia without obstr uction or gangrene [facility] 2025-07-04 10:09 Encounter for palliative care [facility] 2025-07-15 16:14 Other generalized ep ilepsy and epileptic syndromes, [facility] 2025-07-18 12:27 Encounter for attention to ileo stomy [facility] 2025-07-18 12:27 Encounter for palliative care [facility] 2025-07-21 14:14 Hypoglycemia, unspecified [facility] 2025-07-21 14:14 Hyperkalemia [facility] 2025-07-21 14:14 Major depressive dis order, recurrent severe without psychotic features [facility] 2025-07-21 14:14 Other chronic postprocedural pa in [facility] 2025-07-21 14:14 Functional dyspepsia Replaced by [facility] 2025-07-21 14:14 Parastomal hernia without obstr uction or gangrene [facility] 2025-07-21 14:14 Weakness [facility] 2025-07-21 14:14 Encounter for palliative care [facility] 2025-07-22 13:12 Encounter for attention to ileo stomy [facility] 2025-07-22 13:12 Encounter for palliative care [facility] 2025-07-22 14:27 Encounter for attention to ileo stomy [facility] 2025-07-22 14:27 Encounter for palliative care [facility] 2025-07-22 15:21 Encounter for attention to [facility]omy [facility] 2025-07-22 15:21 Encounter for palliative care [facility] 2025-07-23 10:22 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 [facility] 2025-07-23 13:28 Sepsis, unspecified [facility] 2025-07-23 13:28 Hypoglycemia, unspecified [facility] 2025-07-23 13:28 Hyperkalemia [facility] 2025-07-23 13:28 Encephalopathy, unspecified [facility] 2025-07-23 13:28 Essential (primary) hypertensio n [facility] 2025-07-23 13:28 Crohn's disease, unspecified, w ithout complications [facility] 2025-07-23 13:28 Ulcerative colitis, unspecified, without complications [facility] 2025-07-23 13:28 Intestinal malabsorption, unspe cified [facility] 2025-07-23 13:28 Disorientation, unspecified [facility] 2025-07-23 13:28 Shock, unspecified [facility] 2025-07-23 14:25 Encounter for palliative care [facility] 2025-07-23 14:26 Hypoglycemia, unspecified [facility] 2025-07-23 14:26 Hypo-osmolality and [facility]onatremi a [facility] 2025-07-23 14:26 Hyperkalemia [facility] 2025-07-23 14:26 Depression, unspecified [facility] 2025-07-23 14:26 Major depressive disorder, recu rrent, moderate [facility] 2025-07-23 14:26 Adjustment insomnia [facility] 2025-07-23 14:26 Essential (primary) hypertensio n [facility]25-07[facility]23 14:26 Other specified soft tissue dis orders [facility] 2025-07-23 14:27 Hypoglycemia, unspecified [facility] 2025-07-23 14:27 Hypo-osmolality and [facility]atremi a [facility]25-[facility]23 14:27 Hyperkalemia [facility] 2025-07-23 14:27 Major depressive disorder, recu rrent, moderate [facility] 2025-07-23 14:27 Other chronic postprocedural pa in [facility] 2025-07-23 14:27 Essential (primary) hypertensio n [facility] 2025-07-23 14:27 Other specified soft tissue dis orders [facility] 2025-07-23 14:27 Hypothermia, subsequent encount er [facility] 2025-07-23 14:27 Encounter for palliative care [facility] 2025-07-23 14:29 [facility] palliative [facility] 2025-07-24 11:01 Hypoglycemia, unspecified [facility] 2025-07-24 11:01 Hyperkalemia [facility] 2025-07-24 11:01 Encephalopathy, unspecified [facility] 2025-07-24 11:01 Essential (primary) hypertensio n [facility] 2025-07-24 11:01 Crohn's disease, unspecified, w ithout complications [facility] 2025-07-24 11:01 Ulcerative colitis, unspecified, without complications [facility] 2025-07-24 11:01 Intestinal malabsorption, unspe cified [facility] 2025-[facility]24 11:01 Unspecified abdominal pain [facility] 2025-07-24 11:01 Disorientation, unspecified [facility] 2025-07-24 11:01 Altered mental status, unspecif ied [facility] 2025-[facility]24 11:01 Weakness [facility] 2025-07-24 11:01 Shock, unspecified [facility] 2025-07-24 11:20 Sepsis, unspecified organism [facility] 2025-07-24 11:20 Hypoglycemia, unspecified [facility] 2025-07-24 11:20 Hyperkalemia [facility] 2025-07-24 11:20 Encephalopathy, unspecified [facility] 2025-07-24 11:20 Essential (primary) hypertensio n [facility] 2025-07-24 11:20 Crohn's disease, unspecified, w ithout complications [facility] 2025-07-24 11:20 Ulcerative colitis, unspecified, without complications [facility] 2025-07-24 11:20 Intestinal malabsorption, unspe cified [facility] 2025-07-24 11:20 Unspecified abdominal pain [facility] 2025-07-24 11:20 Disorientation, unspecified [facility] 2025-07-24 11:20 Altered mental status, unspecif ied [facility] 2025-07-24 11:20 Weakness [facility] 2025-07-24 11:20 Shock, unspecified [facility] 2025-07-25 15:23 Hyperkalemia [facility] 2025-07-25 15:23 Cellulitis of unspecified part of limb [facility] 2025-07-25 15:30 Right lower quadrant pain [facility] 2025-07-30 10:29 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 [facility] 2025-07-30 10:30 Encounter for palliative care [facility] 2025-08-01 08:28 Localized edema [facility] 2025-08-01 09:58 Venous insufficiency (chronic) (peripheral) [facility] 2025-08-01 09:58 Encounter for attention to ileo stomy [facility] 2025-08-01 09:58 Encounter for palliative care [facility] 2025-08-01 10:06 Encounter for attention to ileo stomy [facility] 2025-08-01 10:06 Encounter for palliative care [facility] 2025-08-01 11:13 Hypoglycemia, unspecified [facility] 2025-08-01 11:13 Hypo-osmolality and hyponatremi a [facility] 2025-08-01 11:13 Hyperkalemia [facility] 2025-08-01 11:13 Major depressive disorder, recu rrent, moderate [facility] 2025-08-01 11:13 Other chronic postprocedural pa in [facility] 2025-08-01 11:13 Essential (primary) hypertensio n [facility] 2025-08-01 11:13 Other specified soft tissue dis orders [facility] 2025-08-01 11:13 Hypothermia, subsequent encount er [facility] 2025-08-01 11:13 Encounter for palliative care [facility] 2025-08-06 10:51 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 [facility] 2025-08-11 08:14 Localized edema [facility] 2025-08-13 09:47 Hypoglycemia, unspecified [facility] 2025-08-13 09:47 Hyperkalemia [facility] 2025-08-13 09:47 Major depressive dis order, recurrent severe without psychotic features [facility] 2025-08-13 09:47 Other chronic postprocedural pa in [facility] 2025-08-13 09:47 Functional [facility]pepsia [facility] 2025-08-13 09:47 Parastomal hernia without obstr uction or gangrene [facility] 2025-08-13 09:47 Weakness [facility] 2025-08-13 09:47 Encounter for palliative care [employer] [facility] 2025-08-13 12:58 Hypoglycemia, unspecified [employer] [facility] 2025-08-13 12:58 Hyperkalemia [facility] 2025-08-13 12:58 Major depressive dis order, recurrent severe without psychotic features [facility] 2025-08-13 12:58 Other chronic postprocedural pa in [facility] 2025-08-13 12:58 [facility]pepsia [facility] 2025-08-13 12:58 Parastomal hernia without obstr uction or gangrene [facility] 2025-08-13 12:58 Weakness [facility] 2025-08-13 12:58 Encounter for palliative care [facility] 2025-08-14 11:05 Unspecified intestin al obstruction, unspecified as to partial versus complete obstruction [facility] 2025-08-14 11:18 Unspecified intestin al obstruction, unspecified as to partial versus complete obstruction [facility] 2025-08-14 11:19 Unspecified intestin al obstruction, unspecified as to partial versus complete obstruction [facility] 2025-08-14 12:39 Unspecified intestin al obstruction, unspecified as to partial versus complete obstruction [facility] 2025-08-15 17:07 Hypoglycemia, unspecified [facility] 2025-08-15 17:07 Hypotension, unspecified [employer] 2025-08-15 17:07 Crohn's disease, uns pecified, with other complication [facility] 2025-08-15 17:07 Unspecified intestin al obstruction, unspecified as to partial versus complete obstruction [facility] 2025-08-15 17:07 Epigastric pain [facility] 2025-08-15 17:07 Retention of urine, unspecified [facility] 2025-08-15 17:07 Somnolence [facility] 2025-08-15 17:07 Encounter for attention to ileo stomy [facility] 2025-08-15 17:07 Ileostomy status [facility] 2025-08-16 12:26 Hypoglycemia, unspecified [facility] 2025-08-16 12:26 Hypotension, unspecified [employer] 2025-08-16 12:26 Crohn's disease, uns pecified, with other complication [facility] 2025-08-16 12:26 Unspecified intestin al obstruction, unspecified as to partial versus complete obstruction [facility] 2025-08-16 12:26 Epigastric pain [facility] 2025-08-16 12:26 Retention of urine, unspecified [employer] 2025-08-16 12:26 Somnolence [facility] 2025-08-16 12:26 Encounter for attention to ileo stomy [facility] 2025-08-16 12:26 Ileostomy status [facility] 2025-08-16 12:32 Hypoglycemia, unspecified [email or web address] 2025-08-16 12:32 Hypotension, unspecified [employer] [facility] 2025-08-16 12:32 Crohn's disease, uns pecified, with other complication [employer] 2025-08-16 12:32 Unspecified intestin al obstruction, unspecified as to partial versus complete obstruction [facility] 2025-08-16 12:32 Epigastric pain [employer] 2025-08-16 12:32 Retention of urine, unspecified [facility] 2025-08-16 12:32 Somnolence [employer] 2025-08-16 12:32 Encounter for attention to ileo stomy [employer] 2025-08-16 12:32 Ileostomy status [employer] 2025-08-16 12:42 Hypoglycemia, unspecified [email or web address] 2025-08-16 12:42 Hypotension, unspecified [employer] 2025-08-16 12:42 Crohn's disease, uns pecified, with other complication [employer] 2025-08-16 12:42 Unspecified intestin al obstruction, unspecified as to partial versus complete obstruction [employer] 2025-08-16 12:42 Epigastric pain [employer] 2025-08-16 12:42 Retention of urine, unspecified [facility] 2025-08-16 12:42 Somnolence [employer] 2025-08-16 12:42 Encounter for attention to ileo stomy [facility] 2025-08-16 12:42 Ileostomy status [facility] 2025-08-16 14:59 Hypoglycemia, unspecified [email or web address] 2025-08-16 14:59 Hypotension, unspecified [employer] 2025-08-16 14:59 Crohn's disease, uns pecified, with other complication [employer] 2025-08-16 14:59 Unspecified intestin al obstruction, unspecified as to partial versus complete obstruction [facility] 2025-08-16 14:59 Epigastric pain [facility] 2025-08-16 14:59 Retention of urine, unspecified [facility] 2025-08-16 14:59 Somnolence [facility] 2025-08-16 14:59 Encounter for attention to ileo stomy [facility] 2025-08-16 14:59 Ileostomy status [facility] 2025-08-16 15:00 Hypoglycemia, unspecified [employer] [facility] 2025-08-16 15:00 Hypotension, unspecified [employer] 2025-08-16 15:00 Crohn's disease, uns pecified, with other complication [facility] 2025-08-16 15:00 Unspecified intestin al obstruction, unspecified as to partial versus complete obstruction [facility] 2025-08-16 15:00 Epigastric pain [facility] 2025-08-16 15:00 Retention of urine, unspecified [facility] 2025-08-16 15:00 Somnolence [facility] 2025-08-16 15:00 Encounter for attention to ileo stomy [facility] 2025-08-16 15:00 Ileostomy status [facility] 2025-08-18 09:35 Hypoglycemia, unspecified [facility] 2025-08-18 09:35 Hypotension, unspecified [employer] 2025-08-18 09:35 Crohn's disease, uns pecified, with other complication [facility] 2025-08-18 09:35 Unspecified intestin al obstruction, unspecified as to partial versus complete obstruction [facility] 2025-08-18 09:35 Epigastric pain [facility] 2025-08-18 09:35 Retention of urine, unspecified [employer] 2025-08-18 09:35 Somnolence [facility] 2025-08-18 09:35 Encounter for attention to ileo stomy [employer] 2025-08-18 09:35 Ileostomy status [employer] 2025-08-20 13:11 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 [employer] 2025-08-20 16:31 Pneumonia, unspecified organism [employer] 2025-08-22 06:58 Hypoglycemia, unspecified [facility] 2025-08-22 06:58 Hyperkalemia [facility] 2025-08-22 06:58 Major depressive dis order, recurrent severe without psychotic features [facility] 2025-08-22 06:58 Other chronic postprocedural pa in [facility] 2025-08-22 06:58 [facility]pepsia [facility] 2025-08-22 06:58 Parastomal hernia without obstr uction or gangrene [facility] 2025-08-22 06:58 Irritant contact vik matitis due friction or contact with other specified body fluids [facility] 2025-08-22 06:58 Encounter for palliative care [facility] 2025-08-22 10:54 Pneumonia, unspecified organism [facility] 2025-08-22 10:56 Pneumonia, unspecified organism [facility] 2025-08-22 11:26 Hypoglycemia, unspecified [facility] 2025-08-22 11:26 Hypotension, unspecified [facility] 2025-08-22 11:26 Crohn's disease, uns pecified, with other complication [facility] 2025-08-22 11:26 Unspecified intestin al obstruction, unspecified as to partial versus complete obstruction [facility] 2025-08-22 11:26 Epigastric pain [facility] 2025-08-22 11:26 Nausea with vomiting, unspecifi ed [facility] 2025-08-22 11:26 Retention of urine, unspecified [facility] 2025-08-22 11:26 Somnolence [facility] 2025-08-22 11:26 Encounter for attention to ileo stomy [facility] 2025-08-22 11:26 Ileostomy status [facility] 2025-08-22 11:39 Hypoglycemia, unspecified [id number] 2025-08-22 11:39 Hypotension, unspecified [facility] 2025-08-22 11:39 Crohn's disease, uns pecified, with other complication [facility] 2025-08-22 11:39 Unspecified intestin al obstruction, unspecified as to partial versus complete obstruction [facility] 2025-08-22 11:39 Epigastric pain [facility] 2025-08-22 11:39 Nausea with vomiting, unspecifi ed [facility] 2025-08-22 11:39 Retention of urine, unspecified [facility] 2025-08-22 11:39 Somnolence [facility] 2025-08-22 11:39 Encounter for attention to ileo stomy [facility] 2025-08-22 11:39 Ileostomy status [facility] 2025-08-23 00:02 Pneumonia, unspecified organism [facility] 2025-08-29 10:36 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 [facility] 2025-09-01 08:24 Unspecified abdominal pain [facility] 2025-09-01 08:24 Vomiting, unspecified [facility] 2025-09-01 14:34 Hypoglycemia, unspecified [facility] 2025-09-01 14:34 Hypo-osmolality and hyponatremi a [facility] 2025-09-01 14:34 Encephalopathy, unspecified [facility] 2025-09-01 14:34 Ulcerative colitis, unspecified, without complications [facility] 2025-09-01 14:34 Disorientation, unspecified [facility] 2025-09-02 15:39 Unspecified intestin al obstruction, unspecified as to partial versus complete obstruction [facility] 2025-09-03 16:15 Unspecified abdominal pain [facility] 2025-09-04 09:44 Unspecified abdominal pain [facility] 2025-09-04 09:44 Vomiting, unspecified [facility] 2025-09-04 09:45 Unspecified abdominal pain [facility] 2025-09-04 09:45 Vomiting, unspecified [facility] 2025-09-05 07:15 Hypoglycemia, unspecified [facility] 2025-09-05 07:15 Essential (primary) hypertensio n [facility] 2025-09-05 07:15 Disorientation, unspecified [facility] 2025-09-05 08:20 Hyperkalemia [facility] 2025-09-05 08:20 [facility]innitus, bilateral [facility] 2025-09-05 08:20 Essential (primary) hypertensio n [facility] 2025-09-05 08:20 Other spondylosis with radiculo luis carlos, lumbar region [facility] 2025-09-05 08:20 Acute cystitis without hematuri a [facility] 2025-09-05 08:20 Urinary tract infection, site n ot specified [facility] 2025-09-05 08:20 Chest pain, unspecified [facility] 2025-09-05 08:20 Nausea with vomiting, unspecifi ed [facility] 2025-09-05 08:20 [facility]nolence [facility] 2025-09-05 08:20 Disorientation, unspecified [facility] 2025-09-05 08:20 Altered mental status, unspecif ied [facility] 2025-09-05 08:20 Restlessness and agitation [facility] 2025-09-05 08:20 Headache, unspecified [facility] 2025-09-05 08:20 Weakness [facility] 2025-09-05 08:20 Abrasion of left index finger, initial encounter [facility] 2025-09-05 08:24 Acute cystitis without hematuri a [facility] 2025-09-05 08:24 Nausea with vomiting, unspecifi ed [facility] 2025-09-05 13:51 Encounter for other preprocedur al examination [facility] 2025-09-08 08:37 Decreased white blood cell coun t, unspecified [facility] 2025-09-08 08:37 Hypoglycemia, unspecified [facility] 2025-09-08 08:37 Hyperkalemia [facility] 2025-09-08 08:37 Bradycardia, unspecified [facility] 2025-09-08 08:37 Elevated blood-press ure reading, without diagnosis of hypertension [facility] 2025-09-08 08:37 Altered mental status, unspecif ied [facility] 2025-09-08 08:37 Hypothermia, initial encounter [facility] 2025-09-08 10:43 Acute cystitis without hematuri a [facility] 2025-09-08 10:43 Nausea with vomiting, unspecifi ed [facility] 2025-09-09 16:08 Pneumonia, unspecified organism [facility] 2025-09-10 13:23 [facility] palliative [facility] 2025-09-13 14:25 Hypomagnesemia [facility] 2025-09-13 14:25 Functional dyspepsia [facility] 2025-09-13 14:25 Encounter for other preprocedur al examination [facility] 2025-09-13 14:26 Hypomagnesemia [facility] 2025-09-13 14:26 Functional dyspepsia [facility] 2025-09-13 14:26 Encounter for other preprocedur al examination [facility] 2025-09-14 00:02 Hypomagnesemia [facility] 2025-09-14 00:02 Functional dyspepsia [facility] 2025-09-14 00:02 Encounter [facility] other [facility] 2025-09-14 01:03 [facility]omagnesemia [facility] 2025-09-14 01:03 Functional dyspepsia jas Wade alth 2025-09-14 01:03 Encounter for other preprocedur [facility] examination [facility] 2025-09-14 14:50 Altered mental status, unspecif ied [facility] 2025-09-15 08:02 Encounter for other preprocedur [facility] examination [facility] 2025-09-15 09:59 Hypothyroidism, unspecified [facility] 2025-09-15 09:59 [facility]omagnesemia [facility] 2025-09-15 09:59 Hypo-osmolality and hyponatremi a [facility] 2025-09-15 09:59 Hyperkalemia [facility] 2025-09-15 09:59 Major depressive dis order, recurrent severe without psychotic features [facility] 2025-09-15 09:59 Other toxic encephalopathy [facility] 2025-09-15 09:59 Crohn's disease, uns pecified, with other complication [facility] 2025-09-15 09:59 Altered mental status, unspecif ied [facility] 2025-09-15 09:59 Ileostomy status [facility] 2025-09-15 10:24 Hypothyroidism, unspecified [facility] 2025-09-15 10:24 Hypomagnesemia [facility] 2025-09-15 10:24 Hypo-osmolality and hyponatremi a [facility] 2025-09-15 10:24 Hyperkalemia [facility] 2025-09-15 10:24 Major depressive dis order, recurrent severe without psychotic features [facility] 2025-09-15 10:24 Other toxic encephalopathy [facility] 2025-09-15 10:24 Crohn's disease, uns pecified, with other complication [facility] 2025-09-15 10:24 Altered mental status, unspecif ie[facility] 2025-09-15 10:24 Ileostomy status [facility] 2025-09-15 10:30 Hypothyroidism, unspecified [facility] 2025-09-15 10:30 Hypomagnesemia [facility] 2025-09-15 10:30 Hypo-osmolality and hyponatremi a [facility] 2025-09-15 10:30 Hyperkalemia [facility] 2025-09-15 10:30 Major depressive dis order, recurrent severe without psychotic features [facility] 2025-09-15 10:30 Other toxic encephalopathy [facility] 2025-09-15 10:30 Crohn's disease, uns pecified, with other complication [facility] 2025-09-15 10:30 [facility], [facility]30 Ileostomy status [facility] 2025-09-15 11:13 Hypothyroidism, unspecified [facility] 2025-09-15 11:13 Hypomagnesemia [facility] 2025-09-15 11:13 Hypo-osmolality and [facility]onatremi a [facility]25-[facility]15 11:13 [facility] 11:13 Major depressive dis order, recurrent severe without psychotic [facility] 11:13 Other toxic encephalopathy [facility] 2025-09-15 11:13 Crohn's disease, uns pecified, with other complication [facility] 2025-09-15 11:13 Altered mental status, unspecif ied [facility] 2025-09-15 11:13 Ileostomy status [facility] 2025-09-15 11:28 Hypothyroidism, unspecified [facility] 2025-09-15 11:28 Hypomagnesemia [facility] 2025-09-15 11:28 Hypo-osmolality and hyponatremi a [facility] 2025-09-15 11:28 Hyperkalemia [facility] 2025-09-15 11:28 Major depressive dis order, recurrent severe without psychotic features [facility] 2025-09-15 11:28 Other toxic encephalopathy [facility] 2025-09-15 11:28 Crohn's disease, uns pecified, with other complication [facility] 2025-09-15 11:28 Altered mental status, unspecif [facility] 2025-09-15 11:28 Ileostomy status [facility] 2025-09-15 12:12 Hypothyroidism, unspecified [facility] 2025-09-15 12:12 Hypomagnesemia [facility] 2025-09-15 12:12 Hypo-osmolality and hyponatremi a [facility] 2025-09-15 12:12 Hyperkalemia [facility] 2025-09-15 12:12 Major depressive dis order, recurrent severe without psychotic features [facility] 2025-09-15 12:12 Other toxic encephalopathy [facility] 2025-09-15 12:12 Crohn's disease, uns pecified, with other complication [facility] 2025-09-15 12:12 Altered mental status, unspecif [facility] 2025-09-15 12:12 Ileostomy status [facility] 2025-09-15 13:20 Hypothyroidism, unspecified [facility] 2025-09-15 13:20 [facility]25-09-15 13:20 Hypo-osmolality and [facility]atremi a [facility] 13:20 Hyperkalemia [facility] 2025-09-15 13:20 Major depressive dis order, recurrent severe without psychotic features [facility] 2025-09-15 13:20 Other toxic encephalopathy [facility] 2025-09-15 13:20 Crohn's disease, uns pecified, with other complication [facility] 2025-09-15 13:20 Altered mental status, unspecif ied [facility] 2025-09-15 13:20 Ileostomy status [facility] 2025-09-15 16:53 Pneumonia, unspecified organism [facility] 2025-09-16 06:28 Hypothyroidism, unspecified [facility] 2025-09-16 06:28 Hypomagnesemia [facility] 2025-09-16 06:28 Hypo-osmolality and hyponatremi a [facility] 2025-09-16 06:28 Hyperkalemia [facility] 2025-09-16 06:28 Major depressive dis order, recurrent severe without psychotic features [facility] 2025-09-16 06:28 Other toxic encephalopathy [facility] 2025-09-16 06:28 Crohn's disease, uns pecified, with other complication [facility] 2025-09-16 06:28 Nausea with vomiting, unspecifi ed [facility] 2025-09-16 06:28 Other abnormalities of gait and mobility [facility] 2025-09-16 06:28 Disorientation, unspecified i [facility] 2025-09-16 06:28 Altered mental status, unspecif ied [facility] 2025-09-16 06:28 Ileostomy status [facility] 2025-09-17 08:46 Lymphocytopenia [facility] 2025-09-17 08:46 Hypomagnesemia [facility] 2025-09-17 08:46 Altered mental status, unspecif ied [facility] 2025-09-17 13:55 Lymphocytopenia [facility] 2025-09-17 13:55 Hypomagnesemia [facility] 2025-09-17 13:55 Altered mental status, unspecif ied [facility] 2025-09-17 13:58 Lymphocytopenia [facility] 2025-09-17 13:58 [facility]emia [facility]25-09-[facility] 13:58 Altered mental status, unspecif ied [facility] 2025-09-17 14:04 Pneumonia, unspecified organism [facility] 2025-09-17 14:07 Pneumonia, unspecified organism [facility] 2025-09-17 14:09 Pneumonia, unspecified organism [facility] 2025-09-17 14:10 Pneumonia, unspecified organism [facility] 2025-09-17 14:13 Pneumonia, unspecified organism [facility] 2025-09-18 00:04 Lymphocytopenia [facility] 2025-09-18 00:04 Hypomagnesemia [facility] 2025-09-18 00:04 Altered mental status, unspecif ied [facility] 2025-09-19 08:39 Major depressive dis order, recurrent severe without psychotic features [facility] 2025-[facility]-19 08:39 Other chronic postprocedural pa in [facility] 2025-09-19 08:39 Essential (primary) hypertensio n [facility] 2025-09-19 08:39 Parastomal hernia without obstr uction or gangrene [facility] 2025-09-19 08:39 Altered mental status, unspecif ied [facility] 2025-09-19 08:39 [facility]25-[facility] 08:39 Other senior care (current) drug therapy [facility] 2025-09-19 10:52 Pneumonia, unspecified organism [facility] 2025-09-20 00:02 Pneumonia, unspecified organism [facility] 2025-09-22 09:38 Spinal stenosis, lum bar region with neurogenic claudication [facility] 2025-09-23 09:00 Pneumonia, unspecified organism [facility] 2025-09-24 00:05 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 [facility] 2025-09-24 09:41 Pneumonia, unspecified organism [facility] 2025-09-24 09:42 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 [facility] 2025-09-24 11:01 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 [facility] 2025-09-26 15:02 Other disorders of e lectrolyte and fluid balance, not elsewhere classified [facility] 2025-09-26 15:29 Other disorders of e lectrolyte and fluid balance, not elsewhere classified [facility] 2025-09-26 15:56 Other disorders of e lectrolyte and fluid balance, not elsewhere classified [facility] 2025-09-26 16:08 Other disorders of e lectrolyte and fluid balance, not elsewhere classified [facility] 2025-09-27 14:29 Hypothyroidism, unspecified [facility] 2025-09-27 14:29 Hypomagnesemia [facility] 2025-09-27 14:29 Hypo-osmolality and hyponatremi a [facility] 2025-09-27 14:29 Hyperkalemia [facility] 2025-09-27 14:29 Other disorders of e lectrolyte and fluid balance, not elsewhere classified [facility] 2025-09-27 14:29 Major depressive dis order, recurrent severe without psychotic features [facility] 2025-09-27 14:29 Other toxic encephalopathy [facility] 2025-09-27 14:29 Crohn's disease, uns pecified, with other complication [facility] 2025-09-27 14:29 Ileostomy status [facility] 2025-09-27 14:40 Hypothyroidism, unspecified [facility] 2025-09-27 14:40 Hypomagnesemia [facility] 2025-09-27 14:40 Hypo-osmolality and hyponatremi a [facility] 2025-09-27 14:40 Hyperkalemia [facility] 2025-09-27 14:40 Other disorders of e lectrolyte and fluid balance, not elsewhere classified [facility] 2025-09-27 14:40 Major depressive dis order, recurrent severe without psychotic features [facility] 2025-09-27 14:40 Other toxic encephalopathy [facility] 2025-09-27 14:40 Crohn's disease, uns pecified, with other complication [facility] 2025-09-27 14:40 Ileostomy status [facility] 2025-09-27 16:02 Hypothyroidism, unspecified [facility] 2025-09-27 16:02 Hypomagnesemia [facility] 2025-09-27 16:02 Hypo-osmolality and hyponatremi a [facility] 2025-09-27 16:02 Hyperkalemia [facility] 2025-09-27 16:02 Other disorders of e lectrolyte and fluid balance, not elsewhere classified [facility] 2025-09-27 16:02 Major depressive dis order, recurrent severe without psychotic features [facility] 2025-09-27 16:02 Other toxic encephalopathy [facility] 2025-09-27 16:02 Crohn's disease, uns pecified, with other complication [facility] 2025-09-27 16:02 Ileostomy status [facility] 2025-09-27 16:14 Hypothyroidism, unspecified [facility] 2025-09-27 16:14 Hypomagnesemia [facility] 2025-09-27 16:14 Hypo-osmolality and hyponatremi a [facility] 2025-09-27 16:14 Hyperkalemia [facility] 2025-09-27 16:14 Other disorders of e lectrolyte and fluid balance, not elsewhere classified [facility] 2025-09-27 16:14 Major depressive dis order, recurrent severe without psychotic features [facility] 2025-09-27 16:14 Other toxic encephalopathy [facility] 2025-09-27 16:14 Crohn's disease, uns pecified, with other complication [facility] 2025-09-27 16:14 Ileostomy status [facility] 2025-09-27 16:38 Hypothyroidism, unspecified [facility] 2025-09-27 16:38 Hypomagnesemia [facility] 2025-09-27 16:38 Hypo-osmolality and hyponatremi a [facility] 2025-09-27 16:38 Hyperkalemia [facility] 2025-09-27 16:38 Other disorders of e lectrolyte and fluid balance, not elsewhere classified [facility] 2025-09-27 16:38 Major depressive dis order, recurrent severe without psychotic features [facility] 2025-09-27 16:38 Other toxic encephalopathy [facility] 2025-09-27 16:38 Crohn's disease, uns pecified, with other complication [facility] 2025-09-27 16:38 Ileostomy status [facility] 2025-09-27 16:39 Hypothyroidism, unspecified [facility] 2025-09-27 16:39 Hypomagnesemia [facility] 2025-09-27 16:39 Hypo-osmolality and hyponatremi a [facility] 2025-09-27 16:39 Hyperkalemia [facility] 2025-09-27 16:39 Other disorders of e lectrolyte and fluid balance, not elsewhere classified [facility] 2025-09-27 16:39 Major depressive dis order, recurrent severe without psychotic features [facility] 2025-09-27 16:39 Other toxic encephalopathy [facility] 2025-09-27 16:39 Crohn's disease, uns pecified, with other complication [facility] 2025-09-27 16:39 Ileostomy status [facility] 2025-09-29 08:59 Hypothyroidism, unspecified [facility] 2025-09-29 08:59 Hypomagnesemia [facility] 2025-09-29 08:59 Hypo-osmolality and hyponatremi a [facility] 2025-09-29 08:59 Hyperkalemia [facility] 2025-09-29 08:59 Other disorders of e lectrolyte and fluid balance, not elsewhere classified [facility] 2025-09-29 08:59 Major depressive dis order, recurrent severe without psychotic features [facility] 2025-09-29 08:59 Other toxic encephalopathy [facility] 2025-09-29 08:59 Crohn's disease, uns pecified, with other complication [facility] 2025-09-29 08:59 Ileostomy status [facility] 2025-09-29 11:02 Hypomagnesemia [facility] 2025-09-29 11:02 Hyperkalemia [facility] 2025-09-29 11:02 [facility] 11:08 Slowness and poor responsivenes s [facility] 2025-09-29 11:08 Weakness [facility] 2025-09-30 11:30 Hypothyroidism, unspecified [facility] 2025-09-30 11:30 Hypomagnesemia [facility] 2025-09-30 11:30 Hypo-osmolality and [facility]onatremi a [facility]30 11:30 Hyperkalemia [facility] 2025-09-30 11:30 Other disorders of e lectrolyte and fluid balance, not elsewhere classified [facility] 2025-09-30 11:30 Major depressive dis order, recurrent severe without psychotic features [facility]25-[facility]-30 11:30 Other toxic encephalopathy [facility] 2025-09-30 11:30 Crohn's disease, uns pecified, with other complication [facility] 2025-09-30 11:30 Altered mental status, unspecif ied [facility] 2025-09-30 11:30 Weakness [facility] 2025-09-30 11:30 Ileostomy status [facility] 2025-09-30 11:58 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 CREATININE 2025-07-22 13:32 [employer] [facility] 0.6 mg/dl As of April 2023 testing method has changed, this may include reference ranges. ALBUMIN/GLOBULIN RATIO 2025-07-22 13:32 [facility] 1.2 (missing) (missing) CALCIUM 2025-07-22 13:32 [employer] [facility] 10.4 mg/dl As of April 2023 testing method has changed, this may include reference ranges. GFR - MDRD 2025-07-22 13:32 [employer] 100 (missing) The IDMS-traceable MDRD Study Equation [...] last updated December 2011. CHLORIDE 2025-07-22 13:32 [facility] 103 mmol/l As of April 2023 testing method has changed, this may include reference ranges. SODIUM 2025-07-22 13:32 [facility] 133 mmol/l Unknown AST ASPARTATE AMINOTRANSFERASE 2025-07-22 13:32 [facility] 20 iu/l As of April 2023 testing method has changed, this may include reference ranges. BUN - BLOOD UREA NITROGEN 2025-07-22 13:32 [facility] 21 mg/dl As of April 2023 testing method has changed, this may include reference ranges. ALT ALANINE AMINOTRANSFERASE 2025-07-22 13:32 [facility] 27 iu/l As of April 2023 testing method has changed, this may include reference ranges. CARBON DIOXIDE - CO2 2025-07-22 13:32 [facility] 27 mmol/l As of April 2023 testing method has changed, this may include reference ranges. ANION GAP 2025-07-22 13:32 [facility] 3.0 (missing) (missing) GLOBULIN 2025-07-22 13:32 [facility] 3.4 g/dl (missing) ALBUMIN 2025-07-22 13:32 [facility] 4.1 g/dl As of April 2023 testing method has changed, this may include reference ranges. POTASSIUM 2025-07-22 13:32 [facility] 4.6 mmol/l As of April 2023 testing method has changed, this may include reference ranges. GLUCOSE 2025-07-22 13:32 [facility] 65 mg/dl As of April 2023 testing method has changed, this may include reference ranges. TOTAL PROTEIN 2025-07-22 13:32 [facility] 7.5 g/dl As of April 2023 testing method has changed, this may include reference ranges. ALKALINE PHOSPHATASE 2025-07-22 13:32 [facility] 97 iu/l As of April 2023 testing method has changed, this may include reference ranges. Result panel 2 CRP - C-REACTIVE PROTEIN 2025-07-31 13:42 [facility] 1.0 mg/dl As of Apr testing method has changed, this may include reference ranges. ESR- ERYTHROCYTE SEDIMENT RATE 2025-07-31 13:42 [facility] 40 mm/hr (missing ) Result panel 3 BILIRUBIN,TOTAL 2025-08-04 10:50 [facility] 0.3 mg/dl As of April 2023 testing method has changed, this may include reference ranges. CREATININE 2025-08-04 10:50 [facility] 0.7 mg/dl As of April 2023 testing method has changed, this may include reference ranges. ALBUMIN/GLOBULIN RATIO 2025-08-04 10:50 [facility] 1.2 (missing) (missing) CALCIUM 2025-08-04 10:50 [facility] 10.5 mg/dl As of April 2023 testing method has changed, this may include reference ranges. CHLORIDE 2025-08-04 10:50 [facility] 109 mmol/l As of April 2023 testing method has changed, this may include reference ranges. SODIUM 2025-08-04 10:50 [facility] 137 mmol/l Unknown BUN - BLOOD UREA NITROGEN 2025-08-04 10:50 [facility] 18 mg/dl As of April 2023 testing method has changed, this may include reference ranges. AST ASPARTATE AMINOTRANSFERASE 2025-08-04 10:50 [facility] 23 iu/l As of April 2023 testing method has changed, this may include reference ranges. CARBON DIOXIDE - CO2 2025-08-04 10:50 [facility] 24 mmol/l As of April 2023 testing method has changed, this may include reference ranges. ALT ALANINE AMINOTRANSFERASE 2025-08-04 10:50 [facility] 25 iu/l As of April 2023 testing method has changed, this may include reference ranges. GLOBULIN 2025-08-04 10:50 [facility] 3.4 g/dl (missing) ANION GAP 2025-08-04 10:50 [facility] 4.0 (missing) (missing) ALBUMIN 2025-08-04 10:50 [facility] 4.0 g/dl As of April 2023 testing method has changed, this may include reference ranges. POTASSIUM 2025-08-04 10:50 [facility] 5.0 mmol/l As of April 2023 testing method has changed, this may include reference ranges. TOTAL PROTEIN 2025-08-04 10:50 [facility] 7.4 g/dl As of April 2023 testing method has changed, this may include reference ranges. GLUCOSE 2025-08-04 10:50 [facility] 70 mg/dl As of April 2023 testing method has changed, this may include reference ranges. GFR - MDRD 2025-08-04 10:50 [facility] 84 (missing) The IDMS-traceable MDRD Study Equation [...] updated December 2011. ALKALINE PHOSPHATASE 2025-08-04 10:50 [facility] 98 iu/l As of April 2023 testing method has changed, this may include reference ranges. Result panel 4 NUCLEATED RED BLOOD CELLS AUTO 2025-08-14 03:41 [facility] 0.0 /100wbc (missing) BASOPHILS # (AUTO) 2025-08-14 03:41 [facility] 0.0 10 3/ul (missing) NRBC ABSOLUTE COUNT (AUTO) 2025-08-14 03:41 [facility] 0.00 x10 3/ul (missing) EOSINOPHILS # (AUTO) 2025-08-14 03:41 [facility] 0.1 10 3/ul (missing) MONOCYTES # (AUTO) 2025-08-14 03:41 [facility] 0.3 10 3/ul (missing) BILIRUBIN,TOTAL 2025-08-14 03:41 [facility] 0.3 mg/dl As of April 2023 testing method has changed, this may include reference ranges. LYMPHOCYTES # (AUTO) 2025-08-14 03:41 [facility] 0.4 10 3/ul (missing) CREATININE 2025-08-14 03:41 [facility] 0.5 mg/dl As of April 2023 testing method has changed, this may include reference ranges. ALBUMIN/GLOBULIN RATIO 2025-08-14 03:41 [facility] 1.3 (missing) (missing) CALCIUM 2025-08-14 03:41 [facility] 10.0 mg/dl As of April 2023 testing method has changed, this may include reference ranges. HGB - HEMOGLOBIN 2025-08-14 03:41 [facility] 10.1 g/dl (missing) CHLORIDE 2025-08-14 03:41 [facility] 103 mmol/l As of April 2023 testing method has changed, this may include reference ranges. GFR - MDRD 2025-08-14 03:41 [facility] 124 (missing) The IDMS-traceable MDRD Study Equation [...] 2011. RED CELL DISTRIBUTION WIDTH 2025-08-14 03:41 [facility] 13.3 % (missing) SODIUM 2025-08-14 03:41 [facility] 133 mmol/l (missing) PLT - PLATELET COUNT 2025-08-14 03:41 [facility] 152 10 3/ul (missing) BUN - BLOOD UREA NITROGEN 2025-08-14 03:41 [facility] 17 mg/dl As of April 2023 testing method has changed, this may include reference ranges. AST ASPARTATE AMINOTRANSFERASE 2025-08-14 03:41 [facility] 19 iu/l As of April 2023 testing method has changed, this may include reference ranges. GLOBULIN 2025-08-14 03:41 [facility] 2.9 g/dl (missing) ALT ALANINE AMINOTRANSFERASE 2025-08-14 03:41 [facility] 21 iu/l As of April 2023 testing method has changed, this may include reference ranges. CARBON DIOXIDE - CO2 2025-08-14 03:41 [facility] 25 mmol/l As of April 2023 testing method has changed, this may include reference ranges. RED BLOOD COUNT 2025-08-14 03:41 [facility] 3.35 10 6/ul (missing) ALBUMIN 2025-08-14 03:41 [facility] 3.9 g/dl As of April 2023 testing method has changed, this may include reference ranges. MEAN CORPUSCULAR HEMOGLOBIN 2025-08-14 03:41 [facility] 30.1 pg (missing) HCT - HEMATOCRIT 2025-08-14 03:41 [facility] 30.6 % (missing) MEAN CORPUSCULAR HGB CONC 2025-08-14 03:41 [facility] 33.0 g/dl (missing) LIPASE 2025-08-14 03:41 [facility] 34 u/l As of April 2023 testing method has changed, this may include reference ranges. NEUTROPHILS # (AUTO) 2025-08-14 03:41 [facility] 4.2 10 3/ul (missing) POTASSIUM 2025-08-14 03:41 [facility] 4.3 mmol/l As of April 2023 testing method has changed, this may include reference ranges. ANION GAP 2025-08-14 03:41 [facility] 5.0 (missing) (missing) WHITE BLOOD COUNT 2025-08-14 03:41 [facility] 5.0 x10 3/ul (missing) TOTAL PROTEIN 2025-08-14 03:41 [facility] 6.8 g/dl As of April 2023 testing method has changed, this may include reference ranges. GLUCOSE 2025-08-14 03:41 [facility] 73 mg/dl As of April 2023 testing method has changed, this may include reference ranges. ALKALINE PHOSPHATASE 2025-08-14 03:41 [facility] 88 iu/l As of April 2023 testing method has changed, this may include reference ranges. MEAN PLATELET VOLUME 2025-08-14 03:41 [facility] 9.4 fl (missing) MEAN CORPUSCULAR VOLUME 2025-08-14 03:41 [facility] 91.3 fl (missing) Result panel 5 WBC,URINE 2025-08-14 05:23 [facility] 0-3 /hpf (missing) RBC,URINE 2025-08-14 05:23 [facility] 0-5 /hpf (missing) UROBILINOGEN,URI NE 2025-08-14: [facility] 0.2 (NORMAL) e.u./dl (missing) SPECIFIC GRAVITY,URINE 2025-08-14: [facility] 1.010 (missing ) (missing) PH,URINE 2025-08-14: [facility] 6.0 ph (missing) CLARITY,URINE 2025-08-14:23 [facility] CLEAR (missing ) (missing) CUL, URINE 2025-08-14:23 [facility] CXPCULTURE IN PROGRESS. RESULTS TO FOLLOW. (missing ) (missing) SQUAMOUS EPITHELIAL CELL,UR 2025-08-14:23 [facility] FEW Squamous (missing ) (missing) UR CULTURE IF IND 2025-08-14: [facility] INDICATED (missing ) (missing) URINE MICROSCOPIC INDICATED? 2025-08-14:23 [facility] INDICATED (missing ) (missing) NITRITE,URINE 2025-08-14: [facility] NEGATIVE (missing ) (missing) OCCULT BLOOD,URINE 2025-08-14:23 [facility] NEGATIVE (missing ) (missing) BILIRUBIN,URINE 2025-08-14:23 [facility] NEGATIVE (missing ) Bilirubin can be influenced by color interference. Please correlate positive results with clinical presentation GLUCOSE, URINE (UA) 2025-08-14:23 [facility] NEGATIVE mg/dl (missing) KETONES,URINE (UA) 2025-08-14:23 [facility] NEGATIVE mg/dl (missing) PROTEIN,URINE 2025-08-14 05:23 [facility] NEGATIVE mg/dl (missing) CUL, URINE 2025-08-14 05:23 [facility] [id number] COLONIES/ML Polymicrobial growth including (missing ) (missing) CUL, URINE 2025-08-14 05:23 [facility] [id number] . (missing ) (missing) CUL, URINE 2025-08-14 05:23 [facility] [id number] pathogens. This is suggestive of skin or other (missing ) (missing) BACTERIA,URINE 2025-08-14 05:23 [facility] Rare /hpf (missing) LEUKOCYTE ESTERASE, URINE 2025-08-14: [facility] SMALL (missing ) (missing) COLOR,URINE 2025-08-14:23 [facility] YELLOW (missing ) URINE CLEAN CATCH Result panel 6 GLUCOSE, WHOLE BLOOD 2025-08-14 16:37 [facility] 107 (missing) RN notified. Result panel 7 GLUCOSE, WHOLE BLOOD 2025-08-14 21:04 [facility] 110 (missing) (missing) Result panel 8 CREATININE 2025-08-15 05: [facility] 0.7 mg/dl As of April 2023 testing method has changed, this may include reference ranges. CHLORIDE 2025-08-15 05: [facility] 105 mmol/l As of April 2023 testing method has changed, this may include reference ranges. BUN - BLOOD UREA NITROGEN 2025-08-15: [facility] 11 mg/dl As of Apr testing method has changed, this may include reference ranges. RED CELL DISTRIBUTION WIDTH 2025-08-15 05: [facility] 13.9 % (mi ssing) SODIUM 2025-08-15: [facility] 135 mmol/l (missing) PLT - PLATELET COUNT 2025-08-15: [facility] 158 10 3/ul (missing) CARBON DIOXIDE - CO2 2025-08-15: [facility] 24 mmol/l As of April 2023 testing method has changed, this may include reference ranges. HCT - HEMATOCRIT 2025-08-15 05:28 [facility] 29.0 % (missing) RED BLOOD COUNT 2025-08-15 05:28 [facility] 3.17 10 6/ul (missing) POTASSIUM 2025-08-15 05: [facility] 3.8 mmol/l As of April 2023 testing method has changed, this may include reference ranges. MEAN CORPUSCULAR HEMOGLOBIN 2025-08-15 05: [facility] 30.3 pg (missing) MEAN CORPUSCULAR HGB CONC 2025-08-15 05:28 [facility] 33.1 g/dl (missing) WHITE BLOOD COUNT 2025-08-15 05: [facility] 5.7 x10 3/ul (missing) ANION GAP 2025-08-15 05:28 [facility] 6.0 (missing ) (missing) GLUCOSE 2025-08-15: [facility] 79 mg/dl As of April 2023 testing method has changed, this may include reference ranges. CALCIUM 2025-08-15 05:28 [facility] 8.6 mg/dl As of April 2023 testing method has changed, this may include reference ranges. GFR - MDRD 2025-08-15 05: [facility] 84 (in g) The IDMS-traceable MDRD Study [...] December 2011. HGB - HEMOGLOBIN 2025-08-15 05:28 [facility] 9.6 g /dl (missing) MEAN PLATELET VOLUME 2025-08-15 05:28 [facility] 9.7 fl (missing) MEAN CORPUSCULAR VOLUME 2025-08-15 05:28 [facility] 91.5 fl (missing) Result panel 9 GLUCOSE, WHOLE BLOOD 2025-08-15 07:59 [facility] 77 (missing) RN notified. Result panel 10 GLUCOSE, WHOLE BLOOD 2025-08-15 09:00 [facility] 81 (missing) (missing) Result panel 11 GLUCOSE, WHOLE BLOOD 2025-08-15 12:05 [facility] 77 (missing) RN notified. Result panel 12 CREATININE 2025-08-15 16:29 [facility] 0.9 mg/dl As of April 2023 testing method has changed, this may include reference ranges. LACTIC ACID, VENOUS 2025-08-15 16:29 [facility] 1.6 mmol/l N As of April 2023 testing method has changed, this may include reference ranges. CHLORIDE 2025-08-15 16:29 [facility] 106 mmol/l As of April 2023 testing method has changed, this may include reference ranges. SODIUM 2025-08-15 16:29 [facility] 134 mmol/l (missing) BUN - BLOOD UREA NITROGEN 2025-08-15 16:29 [facility] 17 mg/dl As of Apr testing method has changed, this may include reference ranges. CARBON DIOXIDE - CO2 2025-08-15 16:29 [facility] 24 mmol/l As of Apr testing method has changed, this may include reference ranges. POTASSIUM 2025-08-15 16:29 [facility] 3.7 mmol/l As of April 2023 testing method has changed, this may include reference ranges. ANION GAP 2025-08-15 16:29 [facility] 4.0 (missing ) (missing) GFR - MDRD 2025-08-15 16:29 [facility] 63 (missin g) The IDMS-traceable MDRD Study [...] last updated December 2011. CALCIUM 2025-08-15 16:29 [facility] 9.2 mg/dl As of April 2023 testing method has changed, this may include reference ranges. GLUCOSE 2025-08-15 16:29 [facility] 97 mg/dl As of April 2023 testing method has changed, this may include reference ranges. Result panel 13 GLUCOSE, WHOLE BLOOD 2025-08-15 16:33 [facility] 91 (missing) RN notified. Result panel 14 GLUCOSE, WHOLE BLOOD 2025-08-15 20:33 [facility] 89 (missing) RN notified. Result panel 15 CREATININE 2025-08-16 05:54 [facility] 0.7 mg/dl As of April 2023 testing method has changed, this may include reference ranges. CALCIUM 2025-08-16 05:54 [facility] 10.2 mg/dl As of April 2023 testing method has changed, this may include reference ranges. CHLORIDE 2025-08-16 05:54 [facility] 106 mmol/l As of April 2023 testing method has changed, this may include reference ranges. SODIUM 2025-08-16 05:54 [facility] 137 mmol/l (missing) BUN - BLOOD UREA NITROGEN 2025-08-16 05:54 [facility] 18 mg/dl As of Apr testing method has changed, this may include reference ranges. CARBON DIOXIDE - CO2 2025-08-16 05:54 [facility] 27 mmol/l As of Apr testing method has changed, this may include reference ranges. POTASSIUM 2025-08-16 05:54 [facility] 3.8 mmol/l As of April 2023 testing method has changed, this may include reference ranges. ANION GAP 2025-08-16 05:54 [facility] 4.0 (missing ) (missing) THYROID STIMULATING HORMONE 2025-08-16 05:54 [facility] 4.75 uiu/ml (missing) GLUCOSE 2025-08-16 05:54 [facility] 78 mg/dl As of April 2023 testing method has changed, this may include reference ranges. GFR - MDRD 2025-08-16 05:54 [facility] 84 (missin g) The IDMS-traceable MDRD Study [...] caring for patients older than 70. References: http://www.nkdep.[facility].gov/lab-evaluatio n/gfr/creatinine-st and ardization, last updated December 2011. Result panel 16 GLUCOSE, WHOLE BLOOD 2025-08-16 08:08 [facility] 70 (missing) RN notified. Result panel 17 GLUCOSE, WHOLE BLOOD 2025-08-16 11:17 [facility] 88 (missing) (missing) Result panel 18 BILIRUBIN,TOTAL 2025-08-28 10:57 [facility] 0.2 mg/dl As of April 2023 testing method has changed, this may include reference ranges. CREATININE 2025-08-28 10:57 [facility] 0.5 mg/dl As of April 2023 testing method has changed, this may include reference ranges. ALBUMIN/GLOBULIN RATIO 2025-08-28 10:57 [facility] 1.0 (missing) (missing) CALCIUM 2025-08-28 10:57 [facility] 10.5 mg/dl As of April 2023 testing method has changed, this may include reference ranges. CHLORIDE 2025-08-28 10:57 [facility] 106 mmol/l As of April 2023 testing method has changed, this may include reference ranges. GFR - MDRD 2025-08-28 10:57 [facility] 124 (missing) The IDMS-traceable MDRD Study Equation [...] last updated December 2011. SODIUM 2025-08-28 10:57 [facility] 136 mmol/l Unknown AST ASPARTATE AMINOTRANSFERASE 2025-08-28 10:57 [facility] 18 iu/l As of April 2023 testing method has changed, this may include reference ranges. BUN - BLOOD UREA NITROGEN 2025-08-28 10:57 [facility] 21 mg/dl As of April 2023 testing method has changed, this may include reference ranges. ALT ALANINE AMINOTRANSFERASE 2025-08-28 10:57 [facility] 22 iu/l As of April 2023 testing method has changed, this may include reference ranges. CARBON DIOXIDE - CO2 2025-08-28 10:57 [facility] 25 mmol/l As of April 2023 testing method has changed, this may include reference ranges. GLOBULIN 2025-08-28 10:57 [facility] 3.7 g/dl (missing) ALBUMIN 2025-08-28 10:57 [facility] 3.7 g/dl As of April 2023 testing method has changed, this may include reference ranges. POTASSIUM 2025-08-28 10:57 [facility] 4.6 mmol/l As of April 2023 testing method has changed, this may include reference ranges. ANION GAP 2025-08-28 10:57 [facility] 5.0 (missing) (missing) TOTAL PROTEIN 2025-08-28 10:57 [facility] 7.4 g/dl As of April 2023 testing method has changed, this may include reference ranges. GLUCOSE 2025-08-28 10:57 [facility] 82 mg/dl As of April 2023 testing method has changed, this may include reference ranges. ALKALINE PHOSPHATASE 2025-08-28 10:57 [facility] 97 iu/l As of April 2023 testing method has changed, this may include reference ranges. Result panel 19 GLUCOSE, WHOLE BLOOD 2025-08-28 23:26 [facility] 84 (missing) (missing) Result panel 20 NUCLEATED RED BLOOD CELLS AUTO 2025-08-28 23:53 [facility] 0.0 /100wbc (missing) BASOPHILS # (AUTO) 2025-08-28 23:53 [facility] 0.0 10 3/ul (missing) NRBC ABSOLUTE COUNT (AUTO) 2025-08-28 23:53 [facility] 0.00 x10 3/ul (missing) EOSINOPHILS # (AUTO) 2025-08-28 23:53 [facility] 0.1 10 3/ul (missing) MONOCYTES # (AUTO) 2025-08-28 23:53 [facility] 0.2 10 3/ul (missing) BILIRUBIN,TOTAL 2025-08-28 23:53 [facility] 0.2 mg/dl As of April 2023 testing method has changed, this may include reference ranges. LYMPHOCYTES # (AUTO) 2025-08-28 23:53 [facility] 0.4 10 3/ul (missing) CREATININE 2025-08-28 23:53 [facility] 0.5 mg/dl As of April 2023 testing method has changed, this may include reference ranges. ALBUMIN/GLOBULIN RATIO 2025-08-28 23:53 [facility] 1.1 (missing) (missing) CALCIUM 2025-08-28 23:53 [facility] 10.3 mg/dl As of April 2023 testing method has changed, this may include reference ranges. CHLORIDE 2025-08-28 23:53 [facility] 103 mmol/l As of April 2023 testing method has changed, this may include reference ranges. GFR - MDRD 2025-08-28 23:53 [facility] 124 (missing) The IDMS-traceable MDRD Study Equation [...] 2011. RED CELL DISTRIBUTION WIDTH 2025-08-28 23:53 [facility] 13.8 % (missing) SODIUM 2025-08-28 23:53 [facility] 132 mmol/l (missing) LIPASE 2025-08-28 23:53 [facility] 15 u/l As of April 2023 testing method has changed, this may include reference ranges. AST ASPARTATE AMINOTRANSFERASE 2025-08-28 23:53 [facility] 16 iu/l As of April 2023 testing method has changed, this may include reference ranges. ALT ALANINE AMINOTRANSFERASE 2025-08-28 23:53 [facility] 20 iu/l As of April 2023 testing method has changed, this may include reference ranges. BUN - BLOOD UREA NITROGEN 2025-08-28 23:53 [facility] 20 mg/dl As of April 2023 testing method has changed, this may include reference ranges. CARBON DIOXIDE - CO2 2025-08-28 23:53 [facility] 23 mmol/l As of April 2023 testing method has changed, this may include reference ranges. PLT - PLATELET COUNT 2025-08-28 23:53 [facility] 255 10 3/ul (missing) RED BLOOD COUNT 2025-08-28 23:53 [facility] 3.19 10 6/ul (missing) GLOBULIN 2025-08-28 23:53 [facility] 3.2 g/dl (missing) ALBUMIN 2025-08-28 23:53 [facility] 3.6 g/dl As of April 2023 testing method has changed, this may include reference ranges. HCT - HEMATOCRIT 2025-08-28 23:53 [facility] 30.2 % (missing) MEAN CORPUSCULAR HEMOGLOBIN 2025-08-28 23:53 [facility] 30.7 pg (missing) MEAN CORPUSCULAR HGB CONC 2025-08-28 23:53 [facility] 32.5 g/dl (missing) NEUTROPHILS # (AUTO) 2025-08-28 23:53 [facility] 4.2 10 3/ul (missing) POTASSIUM 2025-08-28 23:53 [facility] 4.3 mmol/l As of April 2023 testing method has changed, this may include reference ranges. WHITE BLOOD COUNT 2025-08-28 23:53 [facility] 4.9 x10 3/ul (missing) ANION GAP 2025-08-28 23:53 [facility] 6.0 (missing) (missing) TOTAL PROTEIN 2025-08-28 23:53 [facility] 6.8 g/dl As of April 2023 testing method has changed, this may include reference ranges. MEAN PLATELET VOLUME 2025-08-28 23:53 [facility] 8.9 fl (missing) ALKALINE PHOSPHATASE 2025-08-28 23:53 [facility] 85 iu/l As of April 2023 testing method has changed, this may include reference ranges. GLUCOSE 2025-08-28 23:53 [facility] 89 mg/dl As of April 2023 testing method has changed, this may include reference ranges. HGB - HEMOGLOBIN 2025-08-28 23:53 [facility] 9.8 g/dl (missing) MEAN CORPUSCULAR VOLUME 2025-08-28 23:53 [facility] 94.7 fl (missing) Result panel 21 NUCLEATED RED BLOOD CELLS AUTO 2025-08-29 10:25 [facility] 0.0 /100wbc (missing) EOSINOPHILS # (AUTO) 2025-08-29 10:25 [facility] 0.0 10 3/ul (missing) NRBC ABSOLUTE COUNT (AUTO) 2025-08-29 10:25 [facility] 0.00 x10 3/ul (missing) BASOPHILS # (AUTO) 2025-08-29 10:25 [facility] 0.1 10 3/ul (missing) BILIRUBIN,TOTAL 2025-08-29 10:25 [facility] 0.2 mg/dl As of April 2023 testing method has changed, this may include reference ranges. LYMPHOCYTES # (AUTO) 2025-08-29 10:25 [facility] 0.3 10 3/ul (missing) MONOCYTES # (AUTO) 2025-08-29 10:25 [facility] 0.4 10 3/ul (missing) CREATININE 2025-08-29 10:25 [facility] 0.5 mg/dl As of April 2023 testing method has changed, this may include reference ranges. ALBUMIN/GLOBULIN RATIO 2025-08-29 10:25 [facility] 1.0 (missing) (missing) HGB - HEMOGLOBIN 2025-08-29 10:25 [facility] 10.0 g/dl (missing) CHLORIDE 2025-08-29 10:25 [facility] 107 mmol/l As of April 2023 testing method has changed, this may include reference ranges. GFR - MDRD 2025-08-29 10:25 [facility] 124 (missing) The IDMS-traceable MDRD Study Equation [...] 2011. RED CELL DISTRIBUTION WIDTH 2025-08-29 10:25 [facility] 13.9 % (missing) SODIUM 2025-08-29 10:25 [facility] 136 mmol/l (missing) NEUTROPHILS # (AUTO) 2025-08-29 10:25 [facility] 14.1 10 3/ul (missing) AST ASPARTATE AMINOTRANSFERASE 2025-08-29 10:25 [facility] 15 iu/l As of April 2023 testing method has changed, this may include reference ranges. WHITE BLOOD COUNT 2025-08-29 10:25 [facility] 15.1 x10 3/ul (missing) BUN - BLOOD UREA NITROGEN 2025-08-29 10:25 [facility] 19 mg/dl As of April 2023 testing method has changed, this may include reference ranges. ALT ALANINE AMINOTRANSFERASE 2025-08-29 10:25 [facility] 20 iu/l As of April 2023 testing method has changed, this may include reference ranges. CARBON DIOXIDE - CO2 2025-08-29 10:25 [facility] 24 mmol/l As of April 2023 testing method has changed, this may include reference ranges. PLT - PLATELET COUNT 2025-08-29 10:25 [facility] 253 10 3/ul (missing) LIPASE 2025-08-29 10:25 [facility] 27 u/l As of April 2023 testing method has changed, this may include reference ranges. MEAN CORPUSCULAR HEMOGLOBIN 2025-08-29 10:25 [facility] 29.8 pg (missing) GLOBULIN 2025-08-29 10:25 [facility] 3.3 g/dl (missing) RED BLOOD COUNT 2025-08-29 10:25 [facility] 3.36 10 6/ul (missing) ALBUMIN 2025-08-29 10:25 [facility] 3.4 g/dl As of April 2023 testing method has changed, this may include reference ranges. POTASSIUM 2025-08-29 10:25 [facility] 3.8 mmol/l As of April 2023 testing method has changed, this may include reference ranges. MEAN CORPUSCULAR HGB CONC 2025-08-29 10:25 [facility] 31.5 g/dl (missing) HCT - HEMATOCRIT 2025-08-29 10:25 [facility] 31.7 % (missing) ANION GAP 2025-08-29 10:25 [facility] 5.0 (missing) (missing) TOTAL PROTEIN 2025-08-29 10:25 [facility] 6.7 g/dl As of April 2023 testing method has changed, this may include reference ranges. MEAN PLATELET VOLUME 2025-08-29 10:25 [facility] 8.7 fl (missing) CALCIUM 2025-08-29 10:25 [facility] 9.8 mg/dl As of April 2023 testing method has changed, this may include reference ranges. ALKALINE PHOSPHATASE 2025-08-29 10:25 [facility] 91 iu/l As of April 2023 testing method has changed, this may include reference ranges. MEAN CORPUSCULAR VOLUME 2025-08-29 10:25 [facility] 94.3 fl (missing) GLUCOSE 2025-08-29 10:25 [facility] 99 mg/dl As of April 2023 testing method has changed, this may include reference ranges. Result panel 22 UROBILINOGEN,URINE 2025-08-29 14:30 [facility] 0.2 (NORMAL) e.u./dl (missing) SPECIFIC GRAVITY,URINE 2025-08-29 14:30 [facility] 1.010 (missing) (missing) PH,URINE 2025-08-29 14:30 [facility] YELLOW (missing) URINE RANDOM Result panel 23 NUCLEATED RED BLOOD CELLS AUTO 2025-09-13 14:46 [...] (missing) FREE T4 (FREE THYROXINE) 2025-09-13 14:46 [facility] 0.71 ng/dl Biotin at >10 ng/mL concentration may cause significant interference. MAGNESIUM 2025-09-13 14:46 [facility] 1.3 mg/dl As of April 2023 testing method has changed, this may include reference ranges. NEUTROPHILS # (AUTO) 2025-09-13 14:46 [facility] 1.6 10 3/ul (missing) MEAN PLATELET VOLUME 2025-09-13 14:46 [facility] 10.1 fl (missing) HGB - HEMOGLOBIN 2025-09-13 14:46 [facility] 10.1 g/dl (missing) PLT - PLATELET COUNT 2025-09-13 14:46 [facility] 131 10 3/ul (missing) IRON 2025-09-13 14:46 [facility] 139 ug/dl As of April 2023 testing method has changed, this may include reference ranges. RED CELL DISTRIBUTION WIDTH 2025-09-13 14:46 [facility] 14.7 % (missing) WHITE BLOOD COUNT 2025-09-13 14:46 [facility] 2.4 x10 3/ul (missing) FERRITIN 2025-09-13 14:46 [facility] 202.9 ng/ml (missing) TRANSFERRIN 2025-09-13 14:46 [facility] 233 mg/dl As of April 2023 testing method has changed, this may include reference ranges. MEAN CORPUSCULAR HEMOGLOBIN 2025-09-13 14:46 [facility] 29.4 pg (missing) RED BLOOD COUNT 2025-09-13 14:46 [facility] 3.44 10 6/ul (missing) MEAN CORPUSCULAR HGB CONC 2025-09-13 14:46 [facility] 31.0 g/dl (missing) HCT - HEMATOCRIT 2025-09-13 14:46 [facility] 32.6 % (missing) TOTAL IRON BINDING CAPACITY 2025-09-13 14:46 [facility] 326 ug/dl (missing) % IRON SATURATION 2025-09-13 14:46 [facility] 43 % (missing) THYROID STIMULATING HORMONE 2025-09-13 14:46 [facility] 7.69 uiu/ml (missing) MEAN CORPUSCULAR VOLUME 2025-09-13 14:46 [facility] 94.8 fl (missing) SLIDE REVIEW? 2025-09-13 14:46 [facility] Indicated (missing) (missing) PLATELET ESTIMATE, MANUAL 2025-09-13 14:46 [facility] NORMAL ([id number]) (missing) (missing) PLATELET MORPHOLOGY 2025-09-13 14:46 [facility] NORMAL APPEARANCE (missing) (missing) RBC MORPHOLOGY (MULTIPLE) 2025-09-13 14:46 [facility] NORMAL APPEARANCE (missing) (missing) WBC MORPHOLOGY (MULTIPLE) 2025-09-13 14:46 [facility] NORMAL APPEARANCE (missing) (missing) Result panel 24 GLUCOSE, WHOLE BLOOD 2025-09-14 01:01 [facility] 77 (missing) (missing) Result panel 25 NUCLEATED RED BLOOD CELLS AUTO 2025-09-14 02:46 [facility] 0.0 /100wbc (missing) BASOPHILS # (AUTO) 2025-09-14 02:46 [facility] 0.0 10 3/ul (missing) NRBC ABSOLUTE COUNT (AUTO) 2025-09-14 02:46 [facility] 0.00 x10 3/ul (missing) EOSINOPHILS # (AUTO) 2025-09-14 02:46 [facility] 0.1 10 3/ul (missing) MONOCYTES # (AUTO) 2025-09-14 02:46 [facility] 0.1 10 3/ul (missing) BILIRUBIN,TOTAL 2025-09-14 02:46 [facility] 0.2 mg/dl As of April 2023 testing method has changed, this may include reference ranges. LYMPHOCYTES # (AUTO) 2025-09-14 02:46 [facility] 0.4 10 3/ul (missing) CREATININE 2025-09-14 02:46 [facility] 0.6 mg/dl As of April 2023 testing method has changed, this may include reference ranges. ALBUMIN/GLOBULIN RATIO 2025-09-14 02:46 [facility] 1.2 (missing) (missing) CALCIUM 2025-09-14 02:46 [facility] 10.0 mg/dl As of April 2023 testing method has changed, this may include reference ranges. GFR - MDRD 2025-09-14 02:46 [facility] 100 (missing) The IDMS-traceable MDRD Study Equation [...] last updated December 2011. CHLORIDE 2025-09-14 02:46 [facility] 111 mmol/l As of April 2023 testing method has changed, this may include reference ranges. LIPASE 2025-09-14 02:46 [facility] 118 u/l As of April 2023 testing method has changed, this may include reference ranges. PLT - PLATELET COUNT 2025-09-14 02:46 [facility] 123 10 3/ul (missing) SODIUM 2025-09-14 02:46 [facility] 136 mmol/l (missing) RED CELL DISTRIBUTION WIDTH 2025-09-14 02:46 [facility] 14.6 % (missing) GLUCOSE 2025-09-14 02:46 [facility] 145 mg/dl As of April 2023 testing method has changed, this may include reference ranges. CARBON DIOXIDE - CO2 2025-09-14 02:46 [facility] 19 mmol/l As of April 2023 testing method has changed, this may include reference ranges. ALT ALANINE AMINOTRANSFERASE 2025-09-14 02:46 [facility] 21 iu/l As of April 2023 testing method has changed, this may include reference ranges. BUN - BLOOD UREA NITROGEN 2025-09-14 02:46 [facility] 22 mg/dl As of April 2023 testing method has changed, this may include reference ranges. AST ASPARTATE AMINOTRANSFERASE 2025-09-14 02:46 [facility] 24 iu/l As of April 2023 testing method has changed, this may include reference ranges. RED BLOOD COUNT 2025-09-14 02:46 [facility] 3.26 10 6/ul (missing) GLOBULIN 2025-09-14 02:46 [facility] 3.3 g/dl (missing) ALBUMIN 2025-09-14 02:46 [facility] 3.8 g/dl As of April 2023 testing method has changed, this may include reference ranges. HCT - HEMATOCRIT 2025-09-14 02:46 [facility] 30.2 % (missing) MEAN CORPUSCULAR HEMOGLOBIN 2025-09-14 02:46 [facility] 30.4 pg (missing) MEAN CORPUSCULAR HGB CONC 2025-09-14 02:46 [facility] 32.8 g/dl (missing) NEUTROPHILS # (AUTO) 2025-09-14 02:46 [facility] 4.0 10 3/ul (missing) WHITE BLOOD COUNT 2025-09-14 02:46 [facility] 4.6 x10 3/ul (missing) POTASSIUM 2025-09-14 02:46 [facility] 5.6 mmol/l As of April 2023 testing method has changed, this may include reference ranges. ANION GAP 2025-09-14 02:46 [facility] 6.0 (missing) (missing) TOTAL PROTEIN 2025-09-14 02:46 [facility] 7.1 g/dl As of April 2023 testing method has changed, this may include reference ranges. ALKALINE PHOSPHATASE 2025-09-14 02:46 [employer] 85 iu/l As of April 2023 testing method has changed, this may include reference ranges. MEAN PLATELET VOLUME 2025-09-14 02:46 [employer] 9.3 fl (missing) HGB - HEMOGLOBIN 2025-09-14 02:46 [facility] 9.9 g/dl (missing) MEAN CORPUSCULAR VOLUME 2025-09-14 02:46 [facility] 92.6 fl (missing) Result panel 26 POTASSIUM 2025-09-14 03:41 [facility] 5.4 mmol/l As of April 2023 testing method has changed, this may include reference ranges. Result panel 27 UROBILINOGEN,URINE 2025-09-14 07:32 [facility] 0.2 (NORMAL) e.u./dl (missing) SPECIFIC GRAVITY,URINE 2025-09-14 07[facility] ([facility]) (missing) PH,URINE 2025-09-14 07: [facility] 6.0 ph (missing) CLARITY,URINE 2025-09-14 07:32 [facility] CLEAR (missing) (missing) MUDS CUTOFF CONCENTRATIONS 2025-09-14: [facility] CUTOFF CONC BELOW: (missing) [facility] uses the PROFILE-V [employer] Drugs of Abuse Test System. It detects [...] BUP Buprenorphine (Buprenorphine) 10 ng/mL THC Cannabinoids (99-[id number]-carboxy- 9-THC) 50 ng/mL TCA Tricyclic Antidepressants (Desipramine) 300 ng/mL All drug screen results are unconfirmed. Results are to be used for medical (i.e. treatment) purposes only. Unconfirmed screening results must not be used for non-medical purposes (e.g., employment testing, legal testing). AMPHETAMINE SCREEN,URINE 2025-09-14 07:32 [employer] NEGATIVE (missing) (missing) BARBITURATE SCREEN,UR 2025-09-14 07:32 [facility]) (missing) BENZODIAZEPINES SCREEN, URINE 2025-09-14 07:32 [facility] NE[facility]IVE (missing) (missing) BUPRENORPHINE SCREEN, URINE 2025-09-14 07:32 [facility] NEGATIVE (missing) (missing) COCAINE SCREEN URINE 2025-09-14 07:32 [facility] NE[facility]IVE (missing) (missing) LEUKOCYTE ESTERASE, URINE 2025-09-14 07:32 [facility] NEGATIVE (missing) (missing) METHADONE SCREEN, URINE 2025-09-14 07:32 [facility] NEGATIVE (missing) (missing) METHAMPHETAMINES SCREEN, URINE 2025-09-14 [...] (missing) (missing) URINE MICROSCOPIC INDICATED? 2025-09-14 07:32 [facility] NOT INDICATED (missing) (missing) OPIATE SCREEN, URINE 2025-09-14 07:32 [facility] POSITIVE (missing) (missing) COLOR,URINE 2025-09-14 07:32 [facility] STRAW (missing) URINE CLEAN CATCH Result panel 28 FENTANYL SCREEN, URINE 2025-09-14 17:40 [facility] Negative (missing) [facility] uses L ZI Fentanyl (Q) Enzyme Immunoassay. [...] for non-medical or legal purposes. Result panel 29 ETOH - ETHANOL 2025-09-14 18:02 [facility] < 10.0 mg/dl Blood Alcohol Levels Level [...] ranges. TROPONIN I HIGH SENSITIVITY 2025-09-14 18:02 [facility] 4.5 ng/l A HIGH SENSITIVITY TROPONIN result of >= 14.9 ng/L for females is considered POSITIVE. A HIGH SENSITIVITY TROPONIN result of >= 19.8 ng/L for males is considered POSITIVE. A HIGH SENSITIVITY TROPONIN result of >= 17.9 ng/L for unspecified is considered POSITIVE. Result panel 30 RENIN ACTIVITY PLASMA 2025-09-15 05:53 [facility] <0.167 ng/ml/hr This test was developed and its performance characteristics determined by [facility]. It has not been cleared or approved by the Food and Drug Administration. Reference Range: 0.167 - 5.380 ALDOSTERONE 2025-09-15 05:53 [facility] <1.0 ng/dl This test was developed and its performance characteristics determined by [facility]. It has not been cleared or approved by the Food and Drug Administration. Reference Range: Adults: < 31 BASOPHILS # (AUTO) 2025-09-15 05:53 [facility] 0.0 10 3/ul (missing) NRBC ABSOLUTE COUNT (AUTO) 2025-09-15 05:53 [facility] 0.02 x10 3/ul (missing) EOSINOPHILS # (AUTO) 2025-09-15 05:53 [facility] 0.1 10 3/ul (missing) MONOCYTES # (AUTO) 2025-09-15 05:53 [facility] 0.2 10 3/ul (missing) LYMPHOCYTES # (AUTO) 2025-09-15 05:53 [facility] 0.4 10 3/ul (missing) NUCLEATED RED BLOOD CELLS AUTO 2025-09-15 05:53 [facility] 0.7 /100wbc (missing) CREATININE 2025-09-15 05:53 [facility] 0.7 mg/dl As of April 2023 testing method has changed, this may include reference ranges. MAGNESIUM 2025-09-15 05:53 [facility] 1.4 mg/dl As of April 2023 testing method has changed, this may include reference ranges. MEAN PLATELET VOLUME 2025-09-15 05:53 [facility] 10.3 fl (missing) ADRENOCORTICOTROPIC HORMONE 2025-09-15 05:53 [facility] 10.5 pg/ml ACTH reference interval for samples collected between 7 and 10 AM. Performed at: [address], [address], [place], [place] [id number] Medical Collections Representative: Vance Garrett MD, Phone: [phone] CHLORIDE 2025-09-15 05:53 [facility] 116 mmol/l As of April 2023 testing method has changed, this may include reference ranges. PLT - PLATELET COUNT 2025-09-15 05:53 [facility] 120 10 3/ul (missing) RED CELL DISTRIBUTION WIDTH 2025-09-15 05:53 [facility] 14.9 % (missing) SODIUM 2025-09-15 05:53 [facility] 142 mmol/l (missing) BUN - BLOOD UREA NITROGEN 2025-09-15 05:53 [facility] 18 mg/dl As of April 2023 testing method has changed, this may include reference ranges. ANION GAP 2025-09-15 05:53 [facility] 2.0 (missing) (missing) NEUTROPHILS # (AUTO) 2025-09-15 05:53 [facility] 2.1 10 3/ul (missing) WHITE BLOOD COUNT 2025-09-15 05:53 [facility] 2.7 x10 3/ul (missing) CARBON DIOXIDE - CO2 2025-09-15 05:53 [facility] 24 mmol/l As of April 2023 testing method has changed, this may include reference ranges. HCT - HEMATOCRIT 2025-09-15 05:53 [facility] 28.4 % (missing) MEAN CORPUSCULAR HEMOGLOBIN 2025-09-15 05:53 [facility] 29.7 pg (missing) RED BLOOD COUNT 2025-09-15 05:53 [facility] 3.03 10 6/ul (missing) PHOSPHORUS 2025-09-15 05:53 [facility] 3.1 mg/dl As of April 2023 testing method has changed, this may include reference ranges. MEAN CORPUSCULAR HGB CONC 2025-09-15 05:53 [facility] 31.7 g/dl (missing) POTASSIUM 2025-09-15 05:53 [facility] 5.3 mmol/l As of April 2023 testing method has changed, this may include reference ranges. CORTISOL 2025-09-15 05:53 [employer] 7.3 ug/dl CORTISOL REFERENCE RANGES DETERMINED BY TIME OF SPECIMEN COLLECTION: 8AM 5.0-23.0 ug/dL 4PM 3.0-16.0 ug/dL AFTER 8PM <50% OF 8AM VALUE GLUCOSE 2025-09-15 05:53 [facility] 72 mg/dl As of April 2023 testing method has changed, this may include reference ranges. GFR - MDRD 2025-09-15 05:53 [facility] 84 (missing) The IDMS-traceable MDRD Study Equation [...] ation/gfr/creatin ine-stand ardization, last updated December 2011. HGB - HEMOGLOBIN 2025-09-15 05:53 [facility] 9.0 g/dl (missing) CALCIUM 2025-09-15 05:53 [facility] 9.2 mg/dl As of April 2023 testing method has changed, this may include reference ranges. MEAN CORPUSCULAR VOLUME 2025-09-15 05:53 [facility] 93.7 fl (missing) ALDOSTERONE/RENIN RATIO 2025-09-15 05:53 [facility] Comment (missing) Unable to calculate Units: ng/dL per ng/mL/hr Adults: 0.0 - 30.0 Performed at: [facility] [address] [place] [id number] Medical Collections Representative: Michelle Hines MD, Phone: [phone] PLATELET ESTIMATE, MANUAL 2025-09-15 05:53 [facility] DECREASED (<130,000) (missing) (missing) SLIDE REVIEW? 2025-09-15 05:53 [facility] Indicated (missing) (missing) PLATELET MORPHOLOGY 2025-09-15 05:53 [facility] NORMAL APPEARANCE (missing) (missing) RBC MORPHOLOGY (MULTIPLE) 2025-09-15 05:53 [facility] NORMAL APPEARANCE (missing) (missing) WBC MORPHOLOGY (MULTIPLE) 2025-09-15 05:53 [facility] NORMAL APPEARANCE (missing) (missing) Result panel 31 CORTISOL RESPONSE TO ACTH 2025-09-15 08:11 [facility] (missing) (missing) BASE 5.7 ug/dL Collection Time:0808 30MIN 17.2 ug/dL Collection Time:0848 60MIN 18.3 ug/dL Collection Time:0918 CORTISOL REFERENCE RANGES DETERMINED BY TIME OF SPECIMEN COLLECTION: 8AM 5.0-23.0 ug/dL 4PM 3.0-16.0 ug/dL AFTER 8PM <50% OF 8AM VALUE Result panel 32 NUCLEATED RED BLOOD CELLS AUTO 2025-09-17 14:22 [facility] 0.0 /100wbc (missing) BASOPHILS # (AUTO) 2025-09-17 14:22 [facility] 0.0 10 3/ul (missing) NRBC ABSOLUTE COUNT (AUTO) 2025-09-17 14:22 [facility] 0.00 x10 3/ul (missing) EOSINOPHILS # (AUTO) 2025-09-17 14:22 [facility] 0.1 10 3/ul (missing) MONOCYTES # (AUTO) 2025-09-17 14:22 [facility] 0.2 10 3/ul (missing) LYMPHOCYTES # (AUTO) 2025-09-17 14:22 [facility] 0.4 10 3/ul (missing) FREE T4 (FREE THYROXINE) 2025-09-17 14:22 [facility] 0.62 ng/dl Biotin at >10 ng/mL concentration may cause significant interference. MAGNESIUM 2025-09-17 14:22 [facility] 1.4 mg/dl As of April 2023 testing method has changed, this may include reference ranges. HGB - HEMOGLOBIN 2025-09-17 14:22 [facility] 10.0 g /dl (missing) PLT - PLATELET COUNT 2025-09-17 14:22 [facility] 116 10 3/ul (missing) RED CELL DISTRIBUTION WIDTH 2025-09-17 14:22 [facility] 14.6 % (mi ssing) NEUTROPHILS # (AUTO) 2025-09-17 14:22 [facility] 3.0 10 3/ul (missing) RED BLOOD COUNT 2025-09-17 14:22 [facility] 3.28 10 6/ul (missing) WHITE BLOOD COUNT 2025-09-17 14:22 [facility] 3.7 x10 3/ul (missing) MEAN CORPUSCULAR HEMOGLOBIN 2025-09-17 14:22 [facility] 30.5 pg (missing) HCT - HEMATOCRIT 2025-09-17 14:22 [facility] 30.9 % (missing) MEAN CORPUSCULAR HGB CONC 2025-09-17 14:22 [facility] 32.4 g/dl (missing) AMMONIA 2025-09-17 14:22 [facility] 53.4 umol/l As of April 2023 testing method has changed, this may include reference ranges. THYROID STIMULATING HORMONE 2025-09-17 14:22 [facility] 6.30 uiu/ml (missing) MEAN PLATELET VOLUME 2025-09-17 14:22 [facility] 9.5 fl (missing) MEAN CORPUSCULAR VOLUME 2025-09-17 14:22 [facility] 94.2 fl (missing) Result panel 33 BILIRUBIN,TOTAL 2025-09-23 15:11 [facility] 0.2 mg/dl As of April 2023 testing method has changed, this may include reference ranges. CREATININE 2025-09-23 15:11 [facility] 0.6 mg/dl As of April 2023 testing method has changed, this may include reference ranges. ALBUMIN/GLOBULIN RATIO 2025-09-23 15:11 [facility] 1.3 (missing) (missing) MAGNESIUM 2025-09-23 15:11 [facility] 1.3 mg/dl As of April 2023 testing method has changed, this may include reference ranges. CALCIUM 2025-09-23 15:11 [facility] 10.3 mg/dl As of April 2023 testing method has changed, this may include reference ranges. GFR - MDRD 2025-09-23 15:11 [facility] 100 (missing) The IDMS-traceable MDRD Study Equation [...] last updated December 2011. CHLORIDE 2025-09-23 15:11 [facility] 115 mmol/l As of April 2023 testing method has changed, this may include reference ranges. SODIUM 2025-09-23 15:11 [facility] 137 mmol/l Unknown CARBON DIOXIDE - CO2 2025-09-23 15:11 [facility] 19 mmol/l As of April 2023 testing method has changed, this may include reference ranges. BUN - BLOOD UREA NITROGEN 2025-09-23 15:11 [facility] 23 mg/dl As of April 2023 testing method has changed, this may include reference ranges. AST ASPARTATE AMINOTRANSFERASE 2025-09-23 15:11 [facility] 26 iu/l As of April 2023 testing method has changed, this may include reference ranges. ANION GAP 2025-09-23 15:11 [facility] 3.0 (missing) (missing) GLOBULIN 2025-09-23 15:11 [facility] 3.1 g/dl (missing) ALT ALANINE AMINOTRANSFERASE 2025-09-23 15:11 [facility] 38 iu/l As of April 2023 testing method has changed, this may include reference ranges. ALBUMIN 2025-09-23 15:11 [facility] 4.1 g/dl As of April 2023 testing method has changed, this may include reference ranges. POTASSIUM 2025-09-23 15:11 [facility] 5.8 mmol/l As of April 2023 testing method has changed, this may include reference ranges. TOTAL PROTEIN 2025-09-23 15:11 [facility] 7.2 g/dl As of April 2023 testing method has changed, this may include reference ranges. ALKALINE PHOSPHATASE 2025-09-23 15:11 [facility] 79 iu/l As of April 2023 testing method has changed, this may include reference ranges. GLUCOSE 2025-09-23 15:11 [facility] 85 mg/dl As of April 2023 testing method has changed, this may include reference ranges. Result panel 34 NUCLEATED RED BLOOD CELLS AUTO 2025-09-24 12:00 [facility] 0.0 /100wbc (missing) BASOPHILS # (AUTO) 2025-09-24 12:00 [facility] 0.0 10 3/ul (missing) NRBC ABSOLUTE COUNT (AUTO) 2025-09-24 12:00 [facility] 0.00 x10 3/ul (missing) EOSINOPHILS # (AUTO) 2025-09-24 12:00 [facility] 0.1 10 3/ul (missing) BILIRUBIN,TOTAL 2025-09-24 12:00 [facility] 0.2 mg/dl As of April 2023 testing method has changed, this may include reference ranges. MONOCYTES # (AUTO) 2025-09-24 12:00 [facility] 0.3 10 3/ul (missing) LYMPHOCYTES # (AUTO) 2025-09-24 12:00 [facility] 0.4 10 3/ul (missing) CREATININE 2025-09-24 12:00 [facility] 0.6 mg/dl As of April 2023 testing method has changed, this may include reference ranges. ALBUMIN/GLOBULIN RATIO 2025-09-24 12:00 [facility] 1.2 (missing) (missing) MAGNESIUM 2025-09-24 12:00 [facility] 1.3 mg/dl As of April 2023 testing method has changed, this may include reference ranges. GFR - MDRD 2025-09-24 12:00 [facility] 100 (missing) The IDMS-traceable MDRD Study Equation [...] December 2011. MEAN PLATELET VOLUME 2025-09-24 12:00 [facility] 11.1 fl (missing) CHLORIDE 2025-09-24 12:00 [facility] 120 mmol/l Critical result CL 120 mmol/L called to and read back by URBAN Hastings RN/ED at 24-Sep-2025 13:08 by Halie. As of April 2023 testing method has changed, this may include reference ranges. PLT - PLATELET COUNT 2025-09-24 12:00 [facility] 124 10 3/ul (missing) RED CELL DISTRIBUTION WIDTH 2025-09-24 12:00 [facility] 14.7 % (missing) SODIUM 2025-09-24 12:00 [facility] 143 mmol/l (missing) NEUTROPHILS # (AUTO) 2025-09-24 12:00 [facility] 2.4 10 3/ul (missing) RED BLOOD COUNT 2025-09-24 12:00 [facility] 2.94 10 6/ul (missing) CARBON DIOXIDE - CO2 2025-09-24 12:00 [facility] 20 mmol/l As of April 2023 testing method has changed, this may include reference ranges. AST ASPARTATE AMINOTRANSFERASE 2025-09-24 12:00 [facility] 22 iu/l As of April 2023 testing method has changed, this may include reference ranges. BUN - BLOOD UREA NITROGEN 2025-09-24 12:00 [facility] 22 mg/dl As of April 2023 testing method has changed, this may include reference ranges. HCT - HEMATOCRIT 2025-09-24 12:00 [facility] 27.9 % (missing) ANION GAP 2025-09-24 12:00 [facility] 3.0 (missing) (missing) GLOBULIN 2025-09-24 12:00 [facility] 3.0 g/dl (missing) WHITE BLOOD COUNT 2025-09-24 12:00 [facility] 3.2 x10 3/ul (missing) ALBUMIN 2025-09-24 12:00 [facility] 3.6 g/dl As of April 2023 testing method has changed, this may include reference ranges. MEAN CORPUSCULAR HEMOGLOBIN 2025-09-24 12:00 [facility] 30.6 pg (missing) MEAN CORPUSCULAR HGB CONC 2025-09-24 12:00 [facility] 32.3 g/dl (missing) ALT ALANINE AMINOTRANSFERASE 2025-09-24 12:00 [facility] 33 iu/l As of April 2023 testing method has changed, this may include reference ranges. POTASSIUM 2025-09-24 12:00 [facility] 5.6 mmol/l As of April 2023 testing method has changed, this may include reference ranges. TOTAL PROTEIN 2025-09-24 12:00 [facility] 6.6 g/dl As of April 2023 testing method has changed, this may include reference ranges. GLUCOSE 2025-09-24 12:00 [facility] 76 mg/dl As of April 2023 testing method has changed, this may include reference ranges. ALKALINE PHOSPHATASE 2025-09-24 12:00 [facility] 80 iu/l As of April 2023 testing method has changed, this may include reference ranges. HGB - HEMOGLOBIN 2025-09-24 12:00 [facility] 9.0 g/dl (missing) CALCIUM 2025-09-24 12:00 [facility] 9.7 mg/dl As of April 2023 testing method has changed, this may include reference ranges. MEAN CORPUSCULAR VOLUME 2025-09-24 12:00 [facility] 94.9 fl (missing) Result panel 35 GLUCOSE, WHOLE BLOOD 2025-09-25 01:45 [facility] 88 (missing) (missing) Result panel 36 ABNORMAL LYMPHS % (MANUAL) 2025-09-25 02:11 [facility] 0 % (missing) EOSINOPHILS # (MANUAL) 2025-09-25 02:11 [facility] 0.0 10 3/ul (missing) BASOPHILS # (AUTO) 2025-09-25 02:11 [facility] 0.0 10 3/ul (missing) NRBC ABSOLUTE COUNT (AUTO) 2025-09-25 02:11 [facility] 0.02 x10 3/ul (missing) BASOPHILS # (MANUAL) 2025-09-25 02:11 [facility] 0.1 10 3/ul (missing) EOSINOPHILS # (AUTO) 2025-09-25 02:11 [facility] 0.1 10 3/ul (missing) MONOCYTES # (MANUAL) 2025-09-25 02:11 [facility] 0.2 10 3/ul (missing) BILIRUBIN,TOTAL 2025-09-25 02:11 [facility] 0.2 mg/dl As of April 2023 testing method has changed, this may include reference ranges. MONOCYTES # (AUTO) 2025-09-25 02:11 [facility] 0.3 10 3/ul (missing) LYMPHOCYTES # (MANUAL) 2025-09-25 02:11 [facility] 0.3 10 3/ul (missing) LYMPHOCYTES # (AUTO) 2025-09-25 02:11 [facility] 0.4 10 3/ul (missing) CREATININE 2025-09-25 02:11 [facility] 0.6 mg/dl As of April 2023 testing method has changed, this may include reference ranges. NUCLEATED RED BLOOD CELLS AUTO 2025-09-25 02:11 [facility] 0.8 /100wb c (missing) NUCLEATED RBC (MANUAL) 2025-09-25 02:11 [facility] 1 % (missing) WBC MORPHOLOGY (MULTIPLE) 2025-09-25 02:11 [facility] 1+ TOXIC G (cinthya ng) (missing) MAGNESIUM 2025-09-25 02:11 [facility] 1.2 mg/dl As of April 2023 testing method has changed, this may include reference ranges. ALBUMIN/GLOBULIN RATIO 2025-09-25 02:11 [facility] 1.4 (cinthya ng) (missing) NEUTROPHILS # (AUTO) 2025-09-25 02:11 [facility] 1.7 10 3/ul (missing) NEUTROPHILS # (MANUAL) 2025-09-25 02:11 [facility] 1.9 10 3/ul (missing) CALCIUM 2025-09-25 02:11 [facility] 10.0 mg/dl As of April 2023 testing method has changed, this may include reference ranges. MEAN PLATELET VOLUME 2025-09-25 02:11 [facility] 10.4 fl (missing) TOTAL CELLS COUNTED 2025-09-25 02:11 [facility] 100 (cinthya ng) (missing) GFR - MDRD 2025-09-25 02:11 [facility] 100 (cinthya ng) The IDMS-traceable MDRD Study Equation has been [...] last updated December 2011. GLUCOSE 2025-09-25 02:11 [facility] 106 mg/dl As of April 2023 testing method has changed, this may include reference ranges. PLT - PLATELET COUNT 2025-09-25 02:11 [facility] 119 10 3/ul (missing) CHLORIDE 2025-09-25 02:11 [facility] 120 mmol/l Critical result CL 120 mmol/L called to and read back by GERALD Sepulveda ED RN at 25-Sep-2025 02:43 by trung. As of April 2023 testing method has changed, this may include reference ranges. RED CELL DISTRIBUTION WIDTH 2025-09-25 02:11 [facility] 14.9 % (missing) SODIUM 2025-09-25 02:11 [facility] 144 mmol/l (missing) AST ASPARTATE AMINOTRANSFERASE 2025-09-25 02:11 [facility] 19 iu/l As of April 2023 testing method has changed, this may include reference ranges. METAMYELOCYTES % (MANUAL) 2025-09-25 02:11 [facility] 2 % (missing) WHITE BLOOD COUNT 2025-09-25 02:11 [facility] 2.5 x10 3/ul (missing) GLOBULIN 2025-09-25 02:11 [facility] 2.7 g/dl (missing) CARBON DIOXIDE - CO2 2025-09-25 02:11 [facility] 21 mmol/l As of April 2023 testing method has changed, this may include reference ranges. BUN - BLOOD UREA NITROGEN 2025-09-25 02:11 [facility] 24 mg/dl As of April 2023 testing method has changed, this may include reference ranges. ANION GAP 2025-09-25 02:11 [facility] 3.0 (cinthya ng) (missing) RED BLOOD COUNT 2025-09-25 02:11 [facility] 3.20 10 6/ul (missing) ALBUMIN 2025-09-25 02:11 [facility] 3.7 g/dl As of April 2023 testing method has changed, this may include reference ranges. MEAN CORPUSCULAR HEMOGLOBIN 2025-09-25 02:11 [facility] 30.3 pg (missing) HCT - HEMATOCRIT 2025-09-25 02:11 [facility] 30.4 % (missing) MEAN CORPUSCULAR HGB CONC 2025-09-25 02:11 [facility] 31.9 g/dl (missing) ALT ALANINE AMINOTRANSFERASE 2025-09-25 02:11 [facility] 32 iu/l As of April 2023 testing method has changed, this may include reference ranges. BAND NEUTROPHILS % (MANUAL) 2025-09-25 02:11 [facility] 4 % (missing) POTASSIUM 2025-09-25 02:11 [facility] 5.6 mmol/l As of April 2023 testing method has changed, this may include reference ranges. TOTAL PROTEIN 2025-09-25 02:11 [facility] 6.4 g/dl As of April 2023 testing method has changed, this may include reference ranges. LIPASE 2025-09-25 02:11 [facility] 67 u/l As of April 2023 testing method has changed, this may include reference ranges. ALKALINE PHOSPHATASE 2025-09-25 02:11 [facility] 70 iu/l As of April 2023 testing method has changed, this may include reference ranges. HGB - HEMOGLOBIN 2025-09-25 02:11 [facility] 9.7 g/dl (missing) MEAN CORPUSCULAR VOLUME 2025-09-25 02:11 [facility] 95.0 fl (missing) PLATELET ESTIMATE, MANUAL 2025-09-25 02:11 [facility] DECREASED (<130,000) (cinthya ng) (missing) DIFFERENTIAL COMMENT 2025-09-25 02:11 [facility] MANUAL DIFFERENTIAL (cinthya ng) (missing) PLATELET MORPHOLOGY 2025-09-25 02:11 [facility] NORMAL APPEARANCE (cinthya ng) (missing) RBC MORPHOLOGY (MULTIPLE) 2025-09-25 02:11 [facility] NORMAL APPEARANCE (cinthya ng) (missing) Result panel 37 GLUCOSE, WHOLE BLOOD 2025-09-25 02:17 [facility] 107 (missing) (missing) Result panel 38 GLUCOSE, WHOLE BLOOD 2025-09-25 03:30 [facility] 89 (missing) (missing) Result panel 39 GLUCOSE, WHOLE BLOOD 2025-09-26 07:20 [facility] 81 (missing) (missing) Result panel 40 BASOPHILS # (AUTO) 2025-09-26 08:47 [facility] 0.0 10 3/ul (missing) NRBC ABSOLUTE COUNT (AUTO) 2025-09-26 08:47 [facility] 0.02 x10 3/ul (missing) EOSINOPHILS # (AUTO) 2025-09-26 08:47 [facility] 0.1 10 3/ul (missing) BILIRUBIN,TOTAL 2025-09-26 08:47 [facility] 0.2 mg/dl As of April 2023 testing method has changed, this may include reference ranges. MONOCYTES # (AUTO) 2025-09-26 08:47 [facility] 0.3 10 3/ul (missing) NUCLEATED RED BLOOD CELLS AUTO 2025-09-26 08:47 [facility] 0.4 /100wbc (missing) LYMPHOCYTES # (AUTO) 2025-09-26 08:47 [facility] 0.5 10 3/ul (missing) FREE T4 (FREE THYROXINE) 2025-09-26 08:47 [facility] 0.56 ng/dl Biotin at >10 ng/mL concentration may cause significant interference. CREATININE 2025-09-26 08:47 [facility] 0.6 mg/dl As of April 2023 testing method has changed, this may include reference ranges. ALBUMIN/GLOBULIN RATIO 2025-09-26 08:47 [employer] 1.2 (missing) (missing) MAGNESIUM 2025-09-26 08:47 [facility] 1.4 mg/dl As of April 2023 testing method has changed, this may include reference ranges. THYROID STIMULATING HORMONE 2025-09-26 08:47 [facility] 10.20 uiu/ml (missing) HGB - HEMOGLOBIN 2025-09-26 08:47 [facility] 10.6 g/dl (missing) CALCIUM 2025-09-26 08:47 [facility] 10.6 mg/dl As of April 2023 testing method has changed, this may include reference ranges. MEAN PLATELET VOLUME 2025-09-26 08:47 [facility] 10.8 fl (missing) GFR - MDRD 2025-09-26 08:47 [facility] 100 (missing) The IDMS-traceable MDRD Study Equation [...] ion/gfr/creatinine -stand ardization, last updated December 2011. CHLORIDE 2025-09-26 08:47 [facility] 113 mmol/l As of April 2023 testing method has changed, this may include reference ranges. PLT - PLATELET COUNT 2025-09-26 08:47 [facility] 128 10 3/ul (missing) SODIUM 2025-09-26 08:47 [facility] 142 mmol/l (missing) RED CELL DISTRIBUTION WIDTH 2025-09-26 08:47 [facility] 15.2 % (missing) AST ASPARTATE AMINOTRANSFERASE 2025-09-26 08:47 [facility] 21 iu/l As of April 2023 testing method has changed, this may include reference ranges. BUN - BLOOD UREA NITROGEN 2025-09-26 08:47 [facility] 23 mg/dl As of April 2023 testing method has changed, this may include reference ranges. CARBON DIOXIDE - CO2 2025-09-26 08:47 [facility] 24 mmol/l As of April 2023 testing method has changed, this may include reference ranges. MEAN CORPUSCULAR HEMOGLOBIN 2025-09-26 08:47 [facility] 29.9 pg (missing) PHOSPHORUS 2025-09-26 08:47 [facility] 3.1 mg/dl As of April 2023 testing method has changed, this may include reference ranges. GLOBULIN 2025-09-26 08:47 [facility] 3.5 g/dl (missing) RED BLOOD COUNT 2025-09-26 08:47 [facility] 3.55 10 6/ul (missing) MEAN CORPUSCULAR HGB CONC 2025-09-26 08:47 [facility] 31.9 g/dl (missing) ALT ALANINE AMINOTRANSFERASE 2025-09-26 08:47 [facility] 33 iu/l As of April 2023 testing method has changed, this may include reference ranges. HCT - HEMATOCRIT 2025-09-26 08:47 [facility] 33.2 % (missing) NEUTROPHILS # (AUTO) 2025-09-26 08:47 [facility] 4.0 10 3/ul (missing) ALBUMIN 2025-09-26 08:47 [facility] 4.1 g/dl As of April 2023 testing method has changed, this may include reference ranges. WHITE BLOOD COUNT 2025-09-26 08:47 [facility] 4.9 x10 3/ul (missing) ANION GAP 2025-09-26 08:47 [facility] 5.0 (missing) (missing) POTASSIUM 2025-09-26 08:47 [facility] 6.0 mmol/l Critical result K 6.0 mmol/L called to and read back by nataliia henry/rn/ed at 26-Sep-2025 09:11 by silviano. As of April 2023 testing method has changed, this may include reference ranges. TOTAL PROTEIN 2025-09-26 08:47 [facility] 7.6 g/dl As of April 2023 testing method has changed, this may include reference ranges. GLUCOSE 2025-09-26 08:47 [facility] 79 mg/dl As of April 2023 testing method has changed, this may include reference ranges. LIPASE 2025-09-26 08:47 [facility] 86 u/l As of April 2023 testing method has changed, this may include reference ranges. ALKALINE PHOSPHATASE 2025-09-26 08:47 [facility] 87 iu/l As of April 2023 testing method has changed, this may include reference ranges. MEAN CORPUSCULAR VOLUME 2025-09-26 08:47 [facility] 93.5 fl (missing) Result panel 41 WBC,URINE 2025-09-26 14:01 [facility] 0-3 /hpf (missing) RBC,URINE 2025-09-26 14:01 [facility] 0-5 /hpf (missing) UROBILINOGEN,URINE 2025-09-26 14:01 [facility] 0.2 (NORMAL) e.u./dl (missing) SPECIFIC GRAVITY,URINE 2025-09-26 14: [facility] 1.020 (missing ) (missing) SODIUM, URINE 2025-09-26 14: [facility] 135.1 mmol/l As of April 2023 testing method has changed, this may include reference ranges. CREATININE,URINE 2025-09-26: [facility] [facility] 30.8 mg/dl As of April 2023 testing method has changed, this may include reference ranges. POTASSIUM,URINE 2025-09-26 14: [facility] 33.0 mmol/l As of April 2023 testing method has changed, this may include reference ranges. PH,URINE 2025-09-26: [facility] 6.0 ph (missing) CLARITY,URINE 2025-09-26: [facility] CLEAR (missing ) (missing) MUDS CUTOFF CONCENTRATIONS 2025-09-26: [facility] CUTOFF CONC BELOW: (missing ) [facility] uses the PROFILE-V [employer] Drugs of Abuse Test System. It detects drug classes at the following cutoff concentrations: AMP Amphetamine (d-Amphetamine) 500 ng/mL BAR Barbiturates (Butalbital) 200 ng/mL BZO Benzodiazepines (Nordiazepam) 150 ng/mL BUP Buprenorphine (Buprenorphine) 10 ng/mL PAO Cocaine (Benzoylecgonine) 150 ng/mL MAMP Methamphetamine (d-Methamphetamine) 500 ng/mL MTD Methadone (Methadone) 200 ng/mL OPI Opiates (Morphine) 100 ng/mL OXY Oxycodone (Oxycodone) 100 ng/mL PCP Phencyclidine (Phencyclidine) 25 ng/mL BUP Buprenorphine (Buprenorphine) 10 ng/mL THC Cannabinoids (58-exw-4-carboxy-9 -THC) 50 ng/mL TCA Tricyclic Antidepressants (Desipramine) 300 ng/mL All drug screen results are unconfirmed. Results are to be used for medical (i.e. treatment) purposes only. Unconfirmed screening results must not be used for non-medical purposes (e.g., employment testing, legal testing). COLOR,URINE 2025-09-26: [facility] LIGHT YELLOW (missing ) URINE RANDOM AMPHETAMINE SCREEN,URINE 2025-09-26 14:01 [facility] NEGATIVE (missing ) (missing) BARBITURATE SCREEN,UR 2025-09-26 14:01 [facility] NEGATIVE (missing ) (missing) BENZODIAZEPINES SCREEN, URINE 2025-09-26 14:01 [facility] NEGATIVE (missing ) (missing) BUPRENORPHINE SCREEN, URINE 2025-09-26 14: [facility] NEGATIVE (missing ) (missing) COCAINE SCREEN URINE 2025-09-26 14:01 [facility] NEGATIVE (missing ) (missing) LEUKOCYTE ESTERASE, URINE 2025-09-26 14: [facility] NEGATIVE (missing ) (missing) METHADONE SCREEN, URINE 2025-09-26 14: [facility] NEGATIVE (missing ) (missing) METHAMPHETAMINES SCREEN, URINE 2025-09-26 14:01 [facility] NEGATIVE (missing ) (missing) NITRITE,URINE 2025-09-26 14: [facility] NEGATIVE (missing ) (missing) OCCULT BLOOD,URINE 2025-09-26 14:01 [facility] NEGATIVE (missing ) (missing) OXYCODONE SCREEN, URINE 2025-09-26 14:01 [facility] NEGATIVE (missing ) (missing) PHENCYCLIDINE SCREEN, URINE 2025-09-26 14:01 [facility] NEGATIVE (missing ) (missing) THC CANNABINOID SCREEN, URINE 2025-09-26 14:01 [facility] NEGATIVE (missing ) (missing) TRICYCLIC ANTIDEPRESSANT,URINE 2025-09-26 14:01 [facility] NEGATIVE (missing ) (missing) BILIRUBIN,URINE 2025-09-26 14:01 [facility] NEGATIVE (missing ) Bilirubin can be influenced by color interference. Please correlate positive results with clinical presentation GLUCOSE, URINE (UA) 2025-09-26 14: [facility] NEGATIVE mg/dl (missing) KETONES,URINE (UA) 2025-09-26 14:01 [facility] NEGATIVE mg/dl (missing) PROTEIN,URINE 2025-09-26 14:01 [facility] NEGATIVE mg/dl (missing) UR CULTURE IF IND 2025-09-26 14:01 [facility] NOT INDICATED (missing ) (missing) FENTANYL SCREEN, URINE 2025-09-26 14:01 [facility] Negative (missing ) [employer] uses LZI Fentanyl (Q) Enzyme Immunoassay. RESULT INTERPRETATION: This [...] be used for non-medical or legal purposes. OPIATE SCREEN, URINE 2025-09-26 14:01 [facility] POSITIVE (missing ) (missing) SQUAMOUS EPITHELIAL CELL,UR 2025-09-26 14:01 [facility] RARE Squamous (missing ) (missing) BACTERIA,URINE 2025-09-26 14:01 [facility] Rare /hpf (missing) Result panel 42 GLUCOSE, WHOLE BLOOD 2025-09-26 14:02 [facility] 70 (missing) (missing) Result panel 43 CREATININE 2025-09-26 14:55 [facility] 0.5 mg/dl As of April 2023 testing method has changed, this may include reference ranges. CHLORIDE 2025-09-26 14:55 [facility] 118 mmol/l As of April 2023 testing method has changed, this may include reference ranges. GFR - MDRD 2025-09-26 14:55 [facility] 124 (in g) The IDMS-traceable MDRD Study Equation [...] .gov/lab-evaluation/ gfr/creatinine-stand ardization, last updated December 2011. SODIUM 2025-09-26 14:55 [facility] 143 mmol/l DRAWN FROM IV BUN - BLOOD UREA NITROGEN 2025-09-26 14:55 [facility] 19 mg/dl As of Apr testing method has changed, this may include reference ranges. ANION GAP 2025-09-26 14:55 [facility] 2.0 (missing ) (missing) MAGNESIUM 2025-09-26 14:55 [facility] 2.1 mg/dl DRAWN FROM IV As of April 2023 testing method has changed, this may include reference ranges. CARBON DIOXIDE - CO2 2025-09-26 14:55 [facility] 23 mmol/l As of Apr testing method has changed, this may include reference ranges. POTASSIUM 2025-09-26 14:55 [facility] 5.4 mmol/l As of April 2023 testing method has changed, this may include reference ranges. GLUCOSE 2025-09-26 14:55 [facility] 78 mg/dl As of April 2023 testing method has changed, this may include reference ranges. CALCIUM 2025-09-26 14:55 [facility] 9.2 mg/dl As of April 2023 testing method has changed, this may include reference ranges. Result panel 44 ANION GAP 2025-09-27 05:13 [facility] 0.0 (missing) (missing) NUCLEATED RED BLOOD CELLS AUTO 2025-09-27 05:13 [facility] 0.0 /100wbc (missing) BASOPHILS # (AUTO) 2025-09-27 05:13 [facility] 0.0 10 3/ul (missing) NRBC ABSOLUTE COUNT (AUTO) 2025-09-27 05:13 [facility] 0.00 x10 3/ul (missing) EOSINOPHILS # (AUTO) 2025-09-27 05:13 [facility] 0.1 10 3/ul (missing) BILIRUBIN,TOTAL 2025-09-27 05:13 [facility] 0.2 mg/dl As of April 2023 testing method has changed, this may include reference ranges. MONOCYTES # (AUTO) 2025-09-27 05:13 [facility] 0.3 10 3/ul (missing) LYMPHOCYTES # (AUTO) 2025-09-27 05:13 [facility] 0.4 10 3/ul (missing) CREATININE 2025-09-27 05:13 [facility] 0.5 mg/dl As of April 2023 testing method has changed, this may include reference ranges. ALBUMIN/GLOBULIN RATIO 2025-09-27 05:13 [facility] 1.3 (missing) (missing) MAGNESIUM 2025-09-27 05:13 [facility] 1.8 mg/dl As of April 2023 testing method has changed, this may include reference ranges. MEAN PLATELET VOLUME 2025-09-27 05:13 [facility] 10.4 fl (missing) CHLORIDE 2025-09-27 05:13 [facility] 116 mmol/l As of April 2023 testing method has changed, this may include reference ranges. GFR - MDRD 2025-09-27 05:13 [facility] 124 (missing) The IDMS-traceable MDRD Study Equation [...] ine-stand ardization, last updated December 2011. SODIUM 2025-09-27 05:13 [facility] 138 mmol/l (missing) RED CELL DISTRIBUTION WIDTH 2025-09-27 05:13 [facility] 15.1 % (missing) BUN - BLOOD UREA NITROGEN 2025-09-27 05:13 [facility] 16 mg/dl As of April 2023 testing method has changed, this may include reference ranges. AST ASPARTATE AMINOTRANSFERASE 2025-09-27 05:13 [facility] 18 iu/l As of April 2023 testing method has changed, this may include reference ranges. NEUTROPHILS # (AUTO) 2025-09-27 05:13 [facility] 2.3 10 3/ul (missing) GLOBULIN 2025-09-27 05:13 [facility] 2.4 g/dl (missing) RED BLOOD COUNT 2025-09-27 05:13 [facility] 2.88 10 6/ul (missing) CARBON DIOXIDE - CO2 2025-09-27 05:13 [facility] 22 mmol/l As of April 2023 testing method has changed, this may include reference ranges. ALT ALANINE AMINOTRANSFERASE 2025-09-27 05:13 [facility] 26 iu/l As of April 2023 testing method has changed, this may include reference ranges. HCT - HEMATOCRIT 2025-09-27 05:13 [facility] 27.7 % (missing) MEAN CORPUSCULAR HEMOGLOBIN 2025-09-27 05:13 [facility] 29.9 pg (missing) WHITE BLOOD COUNT 2025-09-27 05:13 [facility] 3.1 x10 3/ul (missing) ALBUMIN 2025-09-27 05:13 [facility] 3.2 g/dl As of April 2023 testing method has changed, this may include reference ranges. MEAN CORPUSCULAR HGB CONC 2025-09-27 05:13 [facility] 31.0 g/dl (missing) TOTAL PROTEIN 2025-09-27 05:13 [facility] 5.6 g/dl As of April 2023 testing method has changed, this may include reference ranges. POTASSIUM 2025-09-27 05:13 [facility] 5.6 mmol/l As of April 2023 testing method has changed, this may include reference ranges. GLUCOSE 2025-09-27 05:13 [facility] 68 mg/dl As of April 2023 testing method has changed, this may include reference ranges. ALKALINE PHOSPHATASE 2025-09-27 05:13 [facility] 73 iu/l As of April 2023 testing method has changed, this may include reference ranges. HGB - HEMOGLOBIN 2025-09-27 05:13 [facility] 8.6 g/dl (missing) CALCIUM 2025-09-27 05:13 [facility] 9.1 mg/dl As of April 2023 testing method has changed, this may include reference ranges. MEAN CORPUSCULAR VOLUME 2025-09-27 05:13 [facility] 96.2 fl (missing) PLT - PLATELET COUNT 2025-09-27 05:13 [facility] 99 10 3/ul (missing) Result panel 45 BILIRUBIN,TOTAL 2025-09-29 14:37 [facility] 0.2 mg /dl As of April 2023 testing method has changed, this may include reference ranges. CREATININE 2025-09-29 14:37 [facility] 0.5 mg/dl As of April 2023 testing method has changed, this may include reference ranges. ALBUMIN/GLOBULIN RATIO 2025-09-29 14:37 [facility] 1.3 (missing) (missing) MAGNESIUM 2025-09-29 14:37 [facility] 1.3 mg/dl As of April 2023 testing method has changed, this may include reference ranges. CHLORIDE 2025-09-29 14:37 [facility] 112 mmol/l As of April 2023 testing method has changed, this may include reference ranges. GFR - MDRD 2025-09-29 14:37 [facility] 124 (missin g) The IDMS-traceable MDRD Study Equation [...] ine-stand ardization, last updated December 2011. SODIUM 2025-09-29 14:37 [facility] 139 mmol/l Unknown BUN - BLOOD UREA NITROGEN 2025-09-29 14:37 [facility] 20 mg/dl As of Apr testing method has changed, this may include reference ranges. CARBON DIOXIDE - CO2 2025-09-29 14:37 [facility] 21 mmol/l As of April 2023 testing method has changed, this may include reference ranges. AST ASPARTATE AMINOTRANSFERASE 2025-09-29 14:37 [facility] 26 iu/l As of April 2023 testing method has changed, this may include reference ranges. GLOBULIN 2025-09-29 14:37 [facility] 3.0 g/dl (missing) ALBUMIN 2025-09-29 14:37 [facility] 3.9 g/dl As of April 2023 testing method has changed, this may include reference ranges. ALT ALANINE AMINOTRANSFERASE 2025-09-29 14:37 [facility] 34 iu/l As of April 2023 testing method has changed, this may include reference ranges. POTASSIUM 2025-09-29 14:37 [facility] 5.2 mmol/l As of April 2023 testing method has changed, this may include reference ranges. ANION GAP 2025-09-29 14:37 [facility] 6.0 (missing ) (missing) TOTAL PROTEIN 2025-09-29 14:37 [facility] 6.9 g/dl As of April 2023 testing method has changed, this may include reference ranges. GLUCOSE 2025-09-29 14:37 [facility] 72 mg/dl As of April 2023 testing method has changed, this may include reference ranges. ALKALINE PHOSPHATASE 2025-09-29 14:37 [facility] 89 iu/l As of April 2023 testing method has changed, this may include reference ranges. CALCIUM 2025-09-29 14:37 [facility] 9.9 mg/dl As of April 2023 testing method has changed, this may include reference ranges. Social History date description facility
--- NOTE | 2025-10-01 23:07 | ED Physician Documentation ---
PD HPI ABD PAIN Stated complaint Stated Complaint: STOMACH PX Chief complaint Chief Complaint: Abd Pain History obtained from History obtained from: Patient Additional information Additional information: 65yF with pmh crohns disease s/p proctocolectomy and ileostomy at age of 13 with subsequent 2022 parastomal hernia repair p/w diffuse abdominal pain, with sensation that "ileostomy is blocked again". patient was seen 4 days ago and placed in observation for somnolence 2/2 surreptitious opiate use. denies fever, n/v/d. Meds/Allgy Home Medications Ambulatory Orders Medication Instructions Recorded Confirmed amlodipine 5 mg tablet 5 mg PO DAILY 06/24/2410/02 thiamine mononitrate (vit B1) 100 100 mg PO DAILY 12/2810/02/25 mg tablet food supplemt, lactose-reduced 1 ea PO QID PRN low blo od sugar 03/06/25 09/27/25 (Ensure oral liquid) #237 mL glucose 2 gram chewable tablet 6 g (3 x 2 gram) PO QID PRN low 03/06/25 10/02/25 blood sugar #100 tabs doxazosin 1 mg tablet (Cardura) 1 mg PO QPM 03/14/25 1 12/03/24 hydrocodone 5 mg-acetaminophen 325 0.5 - 1 tab PO BID PRN severe pain 03/14/25 10/02/25 mg tablet #20 tabs pantoprazole 40 mg tablet,delayed 40 mg PO QDAC #30 ta bs 05/05/25 10/02/25 release acetaminophen 500 mg tablet 500 - 1,000 mg PO BID PRN pain 05/13/25 10/02/25 cholecalciferol (vitamin D3) 25 50 mcg PO DAILY 10/02/25 mcg (1,000 unit) capsule (Vitamin D3) blood sugar diagnostic (FreeStyle #50 ea 07/09/2502/21 Precision Yoni Strips) blood-glucose sensor (FreeStyle #2 ea 08/12/25 5 Beba 2 Plus Sensor device) sertraline 50 mg tablet 50 mg PO DAILY 08/12/2502/21 mupirocin 2 % topical ointment 1 applic topical BID 09/27/25 (Centany) nystatin 100,000 unit/gram topical 1 applic topical BI D 09/14/25 09/27/25 cream sodium zirconium cyclosilicate 10 10 g PO DAILY 10/02/25 gram oral powder packet (Lokelma) zinc oxide-cod liver oil 40 % 1 applic topical DAILY 1 11/14/24 10/02/25 topical paste (Desitin) levothyroxine 75 mcg tablet 37.5 mcg (1/2 x 75 mcg) PO QDAC 09/27/25 10/02/25 #30 tabs magnesium oxide 400 mg (241.3 mg 500 mg (1.25 x 400 mg (241.3 mg 09/27/25 10/02/25 magnesium) tablet magnesium)) PO BID #60 tabs sodium chloride 1,000 mg soluble 1,000 mg PO TID 09/2710/02/25 tablet Allergies Allergies Allergy/AdvReac Type Severity Reaction Status Date / Time Penicillins Allergy Anaphylaxis Verified 10/02/25 00:47 vancomycin Allergy Rash Verified 10/02/25 00:47 ciprofloxacin (From Cipro) AdvReac Intermediate Dizziness Verified 10/02/25 00:47 methocarbamol AdvReac Dizziness Verified 10/02/25 00:47 PFSH Active Problems All Active Problems (Updated 10/02/25 @ 02:16 by Katie Roca MD) Complete obstruction of small intestine (Acute) Crohn's disease (Acute) Hypomagnesemia (Acute) Abnormal laboratory test (Acute) Medication management (Acute) Altered mental status (Acute) Hypertension (Chronic) Hypothyroid (Chronic) Leukocytosis (Acute) Constipation (Chronic) Somnolence (Acute) Crohn disease (Chronic) Abdominal pain (Acute) Contact dermatitis (Acute) Contact dermatitis due to feces (Acute) Grief (Acute) Ileostomy in place (Acute) Encounter for attention to ileostomy (Acute) Delayed gastric emptying (Acute) Hypomagnesemia (Acute) Flashbacks (Acute) Allergic conjunctivitis (Acute) Panic attack (Acute) Hyperkalemia (Acute) Hypothermia (Acute) Chronic pain (Acute) Depression (Acute) Parastomal hernia (Acute) Swelling of right lower extremity (Acute) Malabsorption (Acute) Weakness (Acute) Medical History Medical History (Updated 10/02/25 @ 02:16 by Katie Roca MD) History of lung abscess Urinary retention Insomnia Problem List clean-up per request of Phys. SHERYL Lehman Cellulitis of right leg Leukopenia Thrombocytopenia Chronic hyperkalemia History of seizure related to alcohol withdrawal Crohn disease Alcohol dependence in remission UTI (urinary tract infection) Surgical History Surgical History H/O colectomy with end ileostomy at age 13 Hx of neck surgery for an epidural abscess Hx of hernia repair parastomal Family History Family History (Updated 08/14/25 @ 12:20 by Adan Deng RN) Mother Dementia Cancer Sister Cancer Social History Social History Smoking Status: Smoker with current status unk Second hand tobacco smoke exposure: No Do you dip or chew tobacco?: No Do you vape?: No Patient requests smoking cessation consult: No Initiate information on smoking cessation: No Living arrangement: At home Living Condition: With spouse/s.o. 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 Service: No POLST Patient has POLST: Yes POLST CPR Status: Attempt Resuscitation (CPR) Level of Medical Intervention: Full Treatment Exam Exam Vital Signs: Vital Signs x48h Temp Pulse Resp BP Pulse Ox 10/02/25 01:00 52 L 20 155/94 H 97 10/01/25 23:56 52 L 20 97 10/01/25 21:56 53 L 20 96 10/01/25 21:47 36.4 C L 63 25 H 118/99 H 98 Constitutional cachectic appearing, small body habitus HENMT normocephalic, head/scalp atraumatic and oropharynx normal Eyes PERRL and EOMs intact bilaterally Neck/C-Spine visual inspection normal Chest inspection of chest normal Respiratory breath sounds equal bilaterally, normal respiratory effort and clear to auscultation bilaterally Cardiovascular normal heart rate noted and regular rhythm noted Gastrointestinal diffuse discomfort to palpation. ileostomy in place Back/Pelvis spine normal to inspection Extremities normal to inspection Psychiatry oriented x3 Skin skin color normal Results Vitals Vitals: Vital Signs - 24 hr 10/01/25 21:47 10/01/25 21:56 10/01/25 23:25 Temperature 36.4 C L Temperature Source Skin Pulse Rate 63 53 L Respiratory Rate 25 H 20 Blood Pressure 118/99 H O2 Saturation 98 96 O2 Source Room air Room air Pain Intensity 9 2 8 10/01/25 23:56 10/02/25 01:00 Temperature Temperature Source Pulse Rate 52 L 52 L Respiratory Rate 20 20 Blood Pressure 155/94 H O2 Saturation 97 97 O2 Source Room air Room air Pain Intensity 2 0 Oxygen O2 Source Room air Labs Labs: Laboratory Tests 10/02/25 00:36 WBC 5.1 RBC 3.25 L Hgb 9.8 L Hct 29.9 L MCV 92.0 MCH 30.2 MCHC 32.8 RDW 14.9 Plt Count 144 MPV 10.4 Neut # (Auto) 4.3 Lymph # (Auto) 0.4 L Warren # (Auto) 0.3 Eos # (Auto) 0.0 Baso # (Auto) 0.0 Absolute Nucleated RBC 0.02 Nucleated RBC % 0.4 Sodium 141 Potassium 5.1 H Chloride 113 H Carbon Dioxide 23 Anion Gap 5.0 L BUN 22 H Creatinine 0.5 L Estimated GFR (MDRD) 124 Glucose 81 Calcium 9.9 Magnesium 1.3 L Total Bilirubin 0.2 AST 20 ALT 31 Alkaline Phosphatase 83 Total Protein 7.0 Albumin 3.7 Globulin 3.3 Albumin/Globulin Ratio 1.1 Lipase 25 PD Medical Decision Making ED course ED course: 65yF p/w abdominal pain, with history of ileostomy blockage 2/2 parastomal hernia s/p repair in 2022. plan to evaluate by ct with po and iv contrast. Imaging shows dilated loops of small bowel. d/w Dr. Stapleton, key person for surgery who recommends admission to medicine with surgery consulting in . Discharge Plan Discharge Patient Disposition: 66 [facility] DC/Xfer Condition: Fair Clinical Impression: Complete obstruction of small intestine Abdominal pain Qualifiers: Abdominal location: epigastric Qualified Code(s): R10.13 - Epigastric pain Prescriptions: No Action amlodipine 5 MG tablet 5 mg PO DAILY Patient Comments: take 1 tablet by mouth once daily thiamine mononitrate (vit B1) 100 mg tablet 100 mg PO DAILY cholecalciferol (vitamin D3) [Vitamin D3] 25 mcg (1,000 unit) capsule 50 mcg PO DAILY pantoprazole 40 mg Tablet,Delayed Release (Dr/Ec) 40 mg PO QDAC Qty: 30 0RF acetaminophen 500 mg tablet 500 - 1,000 mg PO BID PRN (Reason: pain) Desitin 40 % paste 1 applic topical DAILY Lokelma 10 gram powder in packet 10 g PO DAILY mupirocin [Centany] 2 % ointment 1 applic topical BID nystatin 100,000 unit/gram cream 1 applic topical BID sodium chloride 1,000 mg tablet,soluble 1,000 mg PO TID levothyroxine 75 mcg Tablet 37.5 mcg PO QDAC Qty: 30 0RF magnesium oxide 400 mg (241.3 mg magnesium) Tablet 500 mg PO BID Qty: 60 0RF Ensure Liquid 1 ea PO QID PRN (Reason: low blood sugar) Qty: 237 0RF glucose 2 gram tablet,chewable 6 g PO QID PRN (Reason: low blood sugar) Qty: 100 0RF doxazosin [Cardura] 1 mg tablet 1 mg PO QPM hydrocodone-acetaminophen 5-325 mg tablet 0.5 - 1 tab PO BID PRN (Reason: severe pain ) Qty: 20 0RF (DME) FreeStyle Precision Yoni Strips Strip See Rx Instructions .Route Qty: 50 5RF Rx Instructions: Use as directed with Beba 2 meter to monitor blood sugar up to three times daily sertraline 50 mg tablet 50 mg PO DAILY (DME) FreeStyle Beba 2 Plus Sensor Device See Rx Instructions .Route Qty: 2 5RF Rx Instructions: As directed to monitor blood sugar. Replace every 14 days. Print Language: Kiswahili
[2025-10-01] MEDS: HYDROmorphone 0.5 MG/0.5 ML SYRINGE IM STA (23:25)
--- NOTE | 2025-10-02 00:22 | ANESTHESIA PROCEDURE NOTE ---
Anesth Central Line Template Central Line Procedure Date: 11/01/25 Central Line Preparation: Consent Obtained, Time out completed, Ultrasound used and Sterile prep and drape Central line location: Right IJ Central line type: Triple lumen Central line catheter tip site resides: Superior vena cava (SVC) Central line aftercare: Chlorhexidine disc placed, Secured, Placement confirmed, No pneumothorax, No complications, Bundle checklist complete and Pt tolerated well
[2025-10-02] MEDS: SODIUM CHLORIDE 0.9% 1,000 ML IV ONE ×2 (00:23→05:22)
[2025-10-02 00:45] LABS: HCT - HEMATOCRIT 29.9 % (37.0-47.0); HGB - HEMOGLOBIN 9.8 g/dL (12.0-16.0); MEAN PLATELET VOLUME 10.4 fL (7.9-10.8); NRBC ABSOLUTE COUNT (AUTO) 0.02 x10^3/uL; NUCLEATED RED BLOOD CELLS AUTO 0.4 /100WBC; PLT - PLATELET COUNT 144 10^3/uL (130-450); RED CELL DISTRIBUTION WIDTH 14.9 % (12.0-15.0)
--- NOTE | 2025-10-02 00:50 | XRAY Report ---
PROCEDURE: XR Chest for Line Placement INDICATIONS: TLC TECHNIQUE: AP view of the chest. COMPARISON: chest radiograph 09/19/2025 FINDINGS: Surgical changes and devices: Interval placement of right internal jugular venous catheter with with tip terminating in the area of the distal/lower right atrium. No PICC line is visualized. Cervical fixation hardware. Lungs and pleura: No pleural effusions or pneumothorax. Mild diffuse interstitial prominence, similar to prior. Mediastinum: Mediastinal contours appear normal. Heart size is normal. Bones and chest wall: No suspicious bony lesions. Overlying soft tissues appear unremarkable. IMPRESSION: Interval placement of right internal jugular venous catheter with with tip terminating in the area of the distal/lower right atrium. No PICC line is visualized. Mild diffuse interstitial prominence, similar to prior. Reviewed by: Donell Blue MD on 10/02/2025 12:46 AM PST Approved by: Donell Blue MD on 10/02/2025 12:46 AM PST Station ID: [id number]
[2025-10-02 01:04] LABS: ALT ALANINE AMINOTRANSFERASE 31.0 IU/L (10-60); AST ASPARTATE AMINOTRANSFERASE 20.0 IU/L (10-42); BUN - BLOOD UREA NITROGEN 22.0 mg/dL (6-20); CARBON DIOXIDE - CO2 23.0 mmol/L (21-32); CREATININE 0.5 mg/dL (0.6-1.3); GFR - MDRD 124.0 (>89)
[2025-10-02] MEDS ORDERED: DIATRIZOATE MEGLU/DIATRIZO SOD 30 ML BOTTLE ONE (01:21)
--- NOTE | 2025-10-02 01:36 | CT Report ---
PROCEDURE: CT Abdomen/Pelvis W INDICATIONS: PO AND IV CONTRAST CONTRAST: 100cc [id number] TECHNIQUE: After the administration of intravenous contrast, a CT scan of the abdomen and pelvis was performed. Images were recorded and evaluated at appropriate window settings. Reformats: coronal and sagittal. For radiation dose reduction, the following was used: automated exposure control, adjustment of mA and/or kV according to patient size. COMPARISON: CT abdomen pelvis 09/14/2025 FINDINGS: Image quality: Diagnostic. Lower chest: Similar bibasilar tree-in-bud nodularity involving the right middle lobe, right and left lower lobes, and lingula. Small hiatal hernia. Liver: No solid mass. Gallbladder: No radiopaque stones or wall thickening. Biliary tree: No intrahepatic or extrahepatic dilation, accounting for age. Spleen: No splenomegaly. Pancreas: No pancreatic ductal dilation. Severe fatty atrophy. Adrenals: No adrenal nodule. Kidneys and ureters: No hydronephrosis. No renal cystic lesion which requires follow up. No solid mass. Stomach, bowel and peritoneum: Multiple dilated loops of small bowel proximal to the right lower quadrant ileostomy, measuring up to 3.3 cm in diameter. Similar mild narrowing of the bowel at the ileostomy site, however with fluid-filled appearance bowel distally entering the ileostomy bag. Similar wall thickening of bowel within the parastomal hernia. Small volume free fluid in the lower abdomen adjacent to dilated small bowel loops. Lymph nodes: No central or retroperitoneal adenopathy. Vessels: No infrarenal aortic aneurysm. Patent portal vein. PELVIS Reproductive organs: Unremarkable. Bladder: Distended bladder. Pelvic lymph nodes: No pelvic adenopathy by size criteria. Bones: No aggressive osseous abnormality. Other: No significant ventral or inguinal hernia. IMPRESSION: Multiple dilated loops of small bowel proximal to the right lower quadrant ostomy site. Correlate with ostomy output for evidence of obstruction. Unchanged bowel wall thickening within the parastomal hernia. Similar bilateral lower lung zone tree-in-bud opacities, suggestive of airway spread of infection/inflammation. Similar distended urinary bladder. Correlate with patient's ability to void. Reviewed by: Donell Blue MD on 10/02/2025 1:33 AM PST Approved by: Donell Blue MD on 10/02/2025 1:33 AM PST Station ID: [id number]
[2025-10-02 02:56] LABS: GLUCOSE, URINE (UA) NEGATIVE (NEGATIVE); KETONES,URINE (UA) NEGATIVE (NEGATIVE); OCCULT BLOOD,URINE NEGATIVE (NEGATIVE)
--- NOTE | 2025-10-02 03:00 | HISTORY & PHYSICAL EXAMINATION ---
Chief Complaint Chief Complaint Chief Complaint: abdominal pain History of Present Illness History of Present Illness HPI Comment/Other: 65yoF h/o chron's disease, ileostomy and recurrent SBO presented for evaluation of severe abdominal pain. Pain was generalized and start a few hours prior to arrival. She has usually has consistent output from her ileostomy but today output had decreased. CT imaging shows evidence of a SBO. Case was discussed with surgery, and admission for observation was recommended. while in the ED, she had increased output from her osteomy and her abdominal pain resolved. She was also noted to have hypomagnesemia 1.3, hyperkalemia 5. 1 no acute ekg changes. This visit was performed using telehealth tools, including phone and live-video. patient provided verbal consent to complete this telemedicine encounter. During the time my interview and evaluation, the patient was located at [facility] in the [facility], I was located in [place]. Meds/Allgy Home Medications Ambulatory Orders Medication Instructions Recorded Confirmed amlodipine 5 mg tablet 5 mg PO DAILY 06/24/2410/02 thiamine mononitrate (vit B1) 100 100 mg PO DAILY 12/2810/02/25 mg tablet food supplemt, lactose-reduced 1 ea PO QID PRN low blo od sugar 03/06/25 09/27/25 (Ensure oral liquid) #237 mL glucose 2 gram chewable tablet 6 g (3 x 2 gram) PO QID PRN low 03/06/25 10/02/25 blood sugar #100 tabs doxazosin 1 mg tablet (Cardura) 1 mg PO QPM 03/14/25 1 12/03/24 hydrocodone 5 mg-acetaminophen 325 0.5 - 1 tab PO BID PRN severe pain 03/14/25 10/02/25 mg tablet #20 tabs pantoprazole 40 mg tablet,delayed 40 mg PO QDAC #30 ta bs 05/05/25 10/02/25 release acetaminophen 500 mg tablet 500 - 1,000 mg PO BID PRN pain 05/13/25 10/02/25 cholecalciferol (vitamin D3) 25 50 mcg PO DAILY 10/02/25 mcg (1,000 unit) capsule (Vitamin D3) blood sugar diagnostic (FreeStyle #50 ea 07/09/2502/21 Precision Yoni Strips) blood-glucose sensor (FreeStyle #2 ea 08/12/25 5 Beba 2 Plus Sensor device) sertraline 50 mg tablet 50 mg PO DAILY 08/12/2502/21 mupirocin 2 % topical ointment 1 applic topical BID 09/27/25 (Centany) nystatin 100,000 unit/gram topical 1 applic topical BI D 09/14/25 09/27/25 cream sodium zirconium cyclosilicate 10 10 g PO DAILY 10/02/25 gram oral powder packet (Lokelma) zinc oxide-cod liver oil 40 % 1 applic topical DAILY 1 11/14/24 10/02/25 topical paste (Desitin) levothyroxine 75 mcg tablet 37.5 mcg (1/2 x 75 mcg) PO QDAC 09/27/25 10/02/25 #30 tabs magnesium oxide 400 mg (241.3 mg 500 mg (1.25 x 400 mg (241.3 mg 09/27/25 10/02/25 magnesium) tablet magnesium)) PO BID #60 tabs sodium chloride 1,000 mg soluble 1,000 mg PO TID 09/2710/02/25 tablet Allergies Allergies Allergy/AdvReac Type Severity Reaction Status Date / Time Penicillins Allergy Anaphylaxis Verified 10/02/25 00:47 vancomycin Allergy Rash Verified 10/02/25 00:47 ciprofloxacin (From Cipro) AdvReac Intermediate Dizziness Verified 10/02/25 00:47 methocarbamol AdvReac Dizziness Verified 10/02/25 00:47 PFSH Active Problems All Active Problems (Updated 10/02/25 @ 02:16 by Katie Roca MD) Complete obstruction of small intestine (Acute) Crohn's disease (Acute) Hypomagnesemia (Acute) Abnormal laboratory test (Acute) Medication management (Acute) Altered mental status (Acute) Hypertension (Chronic) Hypothyroid (Chronic) Leukocytosis (Acute) Constipation (Chronic) Somnolence (Acute) Crohn disease (Chronic) Abdominal pain (Acute) Contact dermatitis (Acute) Contact dermatitis due to feces (Acute) Grief (Acute) Ileostomy in place (Acute) Encounter for attention to ileostomy (Acute) Delayed gastric emptying (Acute) Hypomagnesemia (Acute) Flashbacks (Acute) Allergic conjunctivitis (Acute) Panic attack (Acute) Hyperkalemia (Acute) Hypothermia (Acute) Chronic pain (Acute) Depression (Acute) Parastomal hernia (Acute) Swelling of right lower extremity (Acute) Malabsorption (Acute) Weakness (Acute) Medical History Medical History (Updated 10/02/25 @ 02:16 by Katie Roca MD) History of lung abscess Urinary retention Insomnia Problem List clean-up per request of Phys. EHR Cmte Cellulitis of right leg Leukopenia Thrombocytopenia Chronic hyperkalemia History of seizure related to alcohol withdrawal Crohn disease Alcohol dependence in remission UTI (urinary tract infection) Surgical History Surgical History H/O colectomy with end ileostomy at age 13 Hx of neck surgery for an epidural abscess Hx of hernia repair parastomal Family History Family History (Updated 08/14/25 @ 12:20 by Adan Deng, JOSE) Mother Dementia Cancer Sister Cancer Social History Social History Smoking Status: Smoker with current status unk Second hand tobacco smoke exposure: No Do you dip or chew tobacco?: No Do you vape?: No Patient requests smoking cessation consult: No Initiate information on smoking cessation: No Living arrangement: At home Living Condition: With spouse/s.o. 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 Constitutional normal general appearance and no apparent distress Cardiovascular normal heart rate noted Gastrointestinal tender to palpation and nondistended Conclusion/Plan Problem List (1) Complete obstruction of small intestine: Plan: CT abdomen and pelvis reviewed: showing dilated bowel consistent with SBO -pain improved s/p increase ileostomy output. reported back to baseline -maintain npo, advance diet as tolerated -repeat imaging may be warranted to ensure resolution, KUB, prior to discharge -surgery aware, will consult if pain returns and SBO not resovled (2) Hypomagnesemia: Plan: replace, goal 2.0 Plan Patient will be admitted to the hospitalist service under outpatient-observation status. less than 2 midnights expected for management. Lab Results Lab results reviewed: Yes 10/02/25 00:36 10/02/25 00:36 Diagnostic Imaging Results Diagnostic Imaging Results: positive Final report reviewed EKG Results EKG Interpreted Independently: Yes Core Measures Anticipated LOS I expect patient to be DC'd or transferred within 96 hours.: Yes DVT/VTE - Prophylaxis VTE/DVT Device ordered at admit?: Yes
[2025-10-02] MEDS ORDERED: MORPHINE 2 MG/ML CARPUJECT IVP PRN (03:48)
[2025-10-02] MEDS ORDERED: ONDANSETRON 4 MG/2 ML VIAL IVP PRN (03:48)
[2025-10-02] MEDS ORDERED: SODIUM CHLORIDE FLUSH 0.9% 10 ML SYRINGE IVP PRN (03:48)
[2025-10-02] MEDS ORDERED: CALCIUM GLUC 1,000MG/50ML-NACL 1,000 MG/50 ML BAG IV ONE (05:02)
[2025-10-02] MEDS ORDERED: HYDROmorphone 0.5 MG/0.5 ML SYRINGE IVP PRN (05:02)
[2025-10-02] MEDS: SODIUM CHLORIDE FLUSH 0.9% 10 ML SYRINGE IVP SCH (05:16)
[2025-10-02] MEDS: SODIUM BICARBONATE ABBOJECT 50 MEQ/50 ML SYRINGE IVP ONE (05:19)
[2025-10-02] MEDS: SODIUM CHLORIDE 0.9% 500 ML IV ONE (05:22)
[2025-10-02] MEDS: MAGNESIUM SULFATE 2 GRAM 2 GM/50 ML BAG IV ONE ×2 (05:22→05:25)
[2025-10-02] MEDS: SODIUM CHLORIDE 0.9% 1,000 ML IV SCH (05:23)
[2025-10-02] MEDS: HYDROmorphone 0.5 MG/0.5 ML SYRINGE IVP STA ×2 (05:27→07:57)
[2025-10-02 07:39] LABS: BUN - BLOOD UREA NITROGEN 18.0 mg/dL (6-20); CARBON DIOXIDE - CO2 27.0 mmol/L (21-32); CREATININE 0.5 mg/dL (0.6-1.3); GFR - MDRD 124.0 (>89)
[2025-10-02] MEDS: CALCIUM GLUC 1,000MG/50ML-NACL 1,000 MG/50 ML BAG IV STA (07:57)
[2025-10-02] MEDS: SODIUM BICARBONATE ABBOJECT 50 MEQ/50 ML SYRINGE IVP STA (07:58)
--- NOTE | 2025-10-02 09:33 | CT Report ---
PROCEDURE: CT Abdomen/Pelvis W INDICATIONS: abdominal pain CONTRAST: 100cc [id number] TECHNIQUE: After the administration of intravenous contrast, a CT scan of the abdomen and pelvis was performed. Images were recorded and evaluated at appropriate window settings. Reformats: coronal and sagittal. For radiation dose reduction, the following was used: automated exposure control, adjustment of mA and/or kV according to patient size. COMPARISON: CT abdomen/pelvis 10/02/2025 at approximately 1:00 a.m., and 09/14/2025 FINDINGS: Image quality: Diagnostic. Lower chest: Patchy nodular bibasilar groundglass attenuation is suspicious for an infectious or inflammatory process. Liver: No solid mass. Gallbladder: No radiopaque stones or wall thickening. Biliary tree: No intrahepatic or extrahepatic dilation, accounting for age. Spleen: No splenomegaly. Pancreas: No pancreatic ductal dilation. Moderate fatty atrophy of the pancreas Adrenals: No adrenal nodule. Kidneys and ureters: No hydronephrosis. No renal cystic lesion which requires follow up. No solid mass. Contrast is seen in the renal collecting systems related to the recent prior contrast load. Stomach, bowel and peritoneum: Mildly dilated stomach and small bowel. A few nondilated loops of small bowel are seen in the central abdomen. No single focal transition point is present. Oral contrast material extends to the proximal ileum. Right abdominal ileostomy is again seen with bowel containing parastomal hernia. Trace free fluid in the pelvis. No pneumoperitoneum. Lymph nodes: No central or retroperitoneal adenopathy. Vessels: No infrarenal aortic aneurysm. Patent portal vein. PELVIS Reproductive organs: Unremarkable. Bladder: Mildly distended urinary bladder is filled with contrast material. Pelvic lymph nodes: No pelvic adenopathy by size criteria. Bones: No aggressive osseous abnormality. Degenerative changes are seen in the included spine. Other: No significant ventral or inguinal hernia. IMPRESSION: 1. Dilated loops of small bowel and stomach extending to the level of the right lower quadrant ileostomy with a few nondilated bowel loops in the central abdomen. Oral contrast material extends to the mid small bowel. Findings are most compatible with partial small bowel obstruction. Stable right parastomal hernia. 2. Patchy nodular right lower lobe opacities are most likely infectious or inflammatory in etiology. There is no significant discrepancy when compared with the preliminary overnight report. Reviewed by: Keyshawn Garcia MD on 10/02/2025 9:29 AM PST Approved by: Keyshawn Garcia MD on 10/02/2025 9:29 AM PST Station ID: [id number]
--- NOTE | 2025-10-02 11:22 | PHARMACY PROGRESS NOTE ---
Best Possible Medication History Admit Date and Time: 10/02/25 0242 Home Medications Medication Instructions Recorded Confirmed Type amlodipine 5 mg tablet 5 mg PO DAILY 06/24/2410/02 History thiamine mononitrate (vit B1) 100 100 mg PO DAILY 12/2810/02/25 History mg tablet food supplemt, lactose-reduced 1 ea PO QID PRN low blo od sugar 03/06/25 10/02/25 Rx (Ensure oral liquid) #237 mL doxazosin 1 mg tablet (Cardura) 1 mg PO QPM 03/14/25 1 12/03/24 History pantoprazole 40 mg tablet,delayed 40 mg PO QDAC #30 ta bs 05/05/25 10/02/25 Rx release acetaminophen 500 mg tablet 1,000 mg PO BID PRN pain 0 05/13/25 10/02/25 History cholecalciferol (vitamin D3) 25 25 mcg PO DAILY 10/02/25 History mcg (1,000 unit) capsule (Vitamin D3) blood sugar diagnostic (FreeStyle #50 ea 07/09/2502/21 Rx Precision Yoni Strips) blood-glucose sensor (FreeStyle #2 ea 08/12/25 5 Rx Beba 2 Plus Sensor device) sertraline 50 mg tablet 50 mg PO DAILY 08/12/2502/21 History mupirocin 2 % topical ointment 1 applic topical BID 10/02/25 History (Centany) nystatin 100,000 unit/gram topical 1 applic topical BI D 09/14/25 10/02/25 History cream sodium zirconium cyclosilicate 10 10 g PO BID 09/14/25 10/02/25 History gram oral powder packet (Lokelma) zinc oxide-cod liver oil 40 % 1 applic topical BID 10/02/25 History topical paste (Desitin) levothyroxine 75 mcg tablet 37.5 mcg (1/2 x 75 mcg) PO QDAC 09/27/25 10/02/25 Rx #30 tabs sodium chloride 1,000 mg soluble 1,000 mg PO TID 09/2710/02/25 History tablet glucose 4 gram chewable tablet 4 g PO QID PRN low bloo d sugar 10/02/25 10/02/25 History (Dex4 Glucose) hydrocodone 5 mg-acetaminophen 325 1 tab PO Q6H PRN se chad pain 10/02/25 10/02/25 History mg tablet magnesium oxide 400 mg (241.3 mg 400 mg PO TID 5 10/02/25 History magnesium) tablet Processed by: Pharmacy Medications reviewed in ED?: No Medication History completed: Yes Patient Interview: Completed Secondary Source(s): Spouse/Significant other, Pharmacy records, Insurance re cords and Previous admit records [facility] Statement: As the person ultimately responsible for medication therapy, providers are able to order a medication from an existing home medication list in [facility] via the "Reconcile Routine" prior to Confirmation of that medication by product support rep. Such practice is discouraged except when the physician, in their clinical judgment, deems that a medical need exists for a medication without regard to previous use.
[2025-10-02] MEDS ORDERED: oxyCODONE 5 MG TABLET PO PRN (14:43)
--- NOTE | 2025-10-02 14:45 | Discharge Summary ---
Discharge Summary Admit Date: 10/02/25 Discharge Date: 10/02/25 Discharging Provider: Beto Price Primary Care Provider: Wendy Petit Code Status: Attempt Resuscitation DIAGNOSES Discharge Diagnoses with Status of Each Condition: Small bowel obstructionresolved overnight, has follow-up with general surgery HPI History of Present Illness: 65yoF h/o chron's disease, ileostomy and recurrent SBO presented for evaluation of severe abdominal pain. Pain was generalized and start a few hours prior to arrival. She has usually has consistent output from her ileostomy but today output had decreased. CT imaging shows evidence of a SBO. Case was discussed with surgery, and admission for observation was recommended. while in the ED, she had increased output from her osteomy and her abdominal pain resolved. She was also noted to have hypomagnesemia 1.3, hyperkalemia 5. 1 no acute ekg changes. HOSPITAL COURSE Hospital Course: Patient was made n.p.o. and placed in observation. She received multiple doses of IV magnesium, and 1 dose of IV bicarb for hyperkalemia. She has had multiple bowel movements today, and has ready to go home. She reports some ongoing abdominal pain, so I gave her a dose of Maalox. Her reports to me that surgical intervention for her recurrent SBO's is delayed, he thinks that is because of her chronically low magnesium. I have reached out to the office of her general surgeon, Quita Arzola. I am trying to get details about what it is is holding up her surgery. She is already established with palliative care, and has very capable outpatient support. She is being discharged home to follow-up with palliative and with PCP ALLERGIES Allergies Allergy/AdvReac Type Severity Reaction Status Date / Time Penicillins Allergy Anaphylaxis Verified 10/02/25 00:47 vancomycin Allergy Rash Verified 10/02/25 00:47 ciprofloxacin (From Cipro) AdvReac Intermediate Dizziness Verified 10/02/25 00:47 methocarbamol AdvReac Dizziness Verified 10/02/25 00:47 MEDICATIONS Ambulatory Orders Medication Instructions Recorded Confirmed amlodipine 5 mg tablet 5 mg PO DAILY 06/24/2410/02 thiamine mononitrate (vit B1) 100 100 mg PO DAILY 12/2810/02/25 mg tablet food supplemt, lactose-reduced 1 ea PO QID PRN low blo od sugar 03/06/25 10/02/25 (Ensure oral liquid) #237 mL doxazosin 1 mg tablet (Cardura) 1 mg PO QPM 03/14/25 1 12/03/24 pantoprazole 40 mg tablet,delayed 40 mg PO QDAC #30 ta bs 05/05/25 10/02/25 release acetaminophen 500 mg tablet 1,000 mg PO BID PRN pain 0 05/13/25 10/02/25 cholecalciferol (vitamin D3) 25 25 mcg PO DAILY 10/02/25 mcg (1,000 unit) capsule (Vitamin D3) blood sugar diagnostic (FreeStyle #50 ea 07/09/2502/21 Precision Yoni Strips) blood-glucose sensor (FreeStyle #2 ea 08/12/25 5 Beba 2 Plus Sensor device) sertraline 50 mg tablet 50 mg PO DAILY 08/12/2502/21 mupirocin 2 % topical ointment 1 applic topical BID 10/02/25 (Centany) nystatin 100,000 unit/gram topical 1 applic topical BI D 09/14/25 10/02/25 cream sodium zirconium cyclosilicate 10 10 g PO BID 09/14/25 10/02/25 gram oral powder packet (Lokelma) zinc oxide-cod liver oil 40 % 1 applic topical BID 10/02/25 topical paste (Desitin) levothyroxine 75 mcg tablet 37.5 mcg (1/2 x 75 mcg) PO QDAC 09/27/25 10/02/25 #30 tabs sodium chloride 1,000 mg soluble 1,000 mg PO TID 09/2710/02/25 tablet glucose 4 gram chewable tablet 4 g PO QID PRN low bloo d sugar 10/02/25 10/02/25 (Dex4 Glucose) hydrocodone 5 mg-acetaminophen 325 1 tab PO Q6H PRN se chad pain 10/02/25 10/02/25 mg tablet magnesium oxide 400 mg (241.3 mg 400 mg PO TID 5 10/02/25 magnesium) tablet PHYSICAL EXAM AT DISCHARGE General Appearance: positive No acute distress and Alert ENT: positive ENT inspection nml Neck: positive Nml inspection Respiratory: positive Chest non-tender and No respiratory distress Cardiovascular: positive Regular rate & rhythm Peripheral Pulses: positive 2+ Abdomen: negative Non-tender Skin: positive Color nml Extremities: positive Non-tender Neurologic/Psychiatric: positive Oriented x3 LABS 10/02/25 00:36 10/02/25 06:05 FOLLOW UP Follow Up: With PCP, palliative, general surgery TIME SPENT Time Spent in Discharge (Minutes): 38 Discharge Plan Discharge Patient Disposition: Home, Self Care Condition: Fair Prescriptions: Continued amlodipine 5 MG tablet 5 mg PO DAILY Patient Comments: take 1 tablet by mouth once daily thiamine mononitrate (vit B1) 100 mg tablet 100 mg PO DAILY cholecalciferol (vitamin D3) [Vitamin D3] 25 mcg (1,000 unit) capsule 25 mcg PO DAILY pantoprazole 40 mg Tablet,Delayed Release (Dr/Ec) 40 mg PO QDAC Qty: 30 0RF acetaminophen 500 mg tablet 1,000 mg PO BID PRN (Reason: pain) Desitin 40 % paste 1 applic topical BID Lokelma 10 gram powder in packet 10 g PO BID mupirocin [Centany] 2 % ointment 1 applic topical BID nystatin 100,000 unit/gram cream 1 applic topical BID sodium chloride 1,000 mg tablet,soluble 1,000 mg PO TID levothyroxine 75 mcg Tablet 37.5 mcg PO QDAC Qty: 30 0RF glucose [Dex4 Glucose] 4 gram tablet,chewable 4 g PO QID PRN (Reason: low blood sugar) Rx Instructions: until symptoms of low blood sugar are controlled hydrocodone-acetaminophen 5-325 mg tablet 1 tab PO Q6H PRN (Reason: severe pain ) magnesium oxide 400 mg (241.3 mg magnesium) Tablet 400 mg PO TID Ensure Liquid 1 ea PO QID PRN (Reason: low blood sugar) Qty: 237 0RF doxazosin [Cardura] 1 mg tablet 1 mg PO QPM (DME) FreeStyle Precision Yoni Strips Strip See Rx Instructions .Route Qty: 50 5RF Rx Instructions: Use as directed with Beba 2 meter to monitor blood sugar up to three times daily sertraline 50 mg tablet 50 mg PO DAILY (DME) FreeStyle Beba 2 Plus Sensor Device See Rx Instructions .Route Qty: 2 5RF Rx Instructions: As directed to monitor blood sugar. Replace every 14 days. Diet: Regular Health Concerns: You came into the hospital with an intestinal obstruction. You are watched overnight and the obstruction has cleared. You are noted to have a low magnesium level, and your reported that your surgeon would like this corrected before you can proceed with operation. I have discussed your case with your palliative care provider, and I believe that you will need to become established with our medical ambulatory clinic for regular IV magnesium infusions. I am reaching out to your surgeon to seek clarification on what she would like for your magnesium. I would like for you to follow-up with your primary care as well as with your palliative care provider for ongoing management Print Language: Albanian Patient Instructions: Hypomagnesemia Dc, Obstruction Intestinal Stand Alone Forms: PCP List Follow-up Care: WENDY PETIT ARNP [Primary Care Provider, Nurse Practitioner] Vitals documented within 30 minutes of discharge?: Yes
[2025-10-02 15:01] LABS: BUN - BLOOD UREA NITROGEN 13.0 mg/dL (6-20); CARBON DIOXIDE - CO2 26.0 mmol/L (21-32); CREATININE 0.5 mg/dL (0.6-1.3); GFR - MDRD 124.0 (>89)
[2025-10-02] MEDS: MAG HYDROX/AL HYDROX/SIMETH 30 ML UDC PO PRN (15:58)
[2025-10-02] MEDS: ACETAMINOPHEN 325 MG TABLET PO PRN (15:58)
--- NOTE | 2025-10-02 18:58 | CONSULTATION NOTE ---
Chief Complaint Chief Complaint Chief Complaint: Parastomal hernia History of Present Illness History Obtained From History obtained from: Patient and in their Med/Surg room History of Present Illness HPI Comment/Other: 65 yo F w/ pmh of Crohns disease s/p ileostomy and recurrent SBO who presented to the ED on 10/02 for evaluation of severe abdominal pain and decreased ostomy output. Her pain was generalized and started a few hours prior to arrival in the ED. She typically had consistent output from her ileostomy but noted prior to arrival that the output had decreased. She has had multiple similar episodes in the past and was admitted for SBO which usually resolved with her oral contrast given for CT. She is established with a surgeon in [place], Dr. Quita Gore, and was planned for robotic assisted parastomal hernia repair vs. re-siting of the ostomy last Monday but was unable to get the surgery because she was admitted at for altered mental status. She since recovered and was rescheduled for October. Her CT imaging in the ED showed evidence of SBO. She was admitted to medicine but while in the ED she had increased output from her ostomy and her abdominal pain resolved. During the day today she developed abdominal pain again and decreased ostomy output and there was noted to be engorgement around the ostomy concerning for incarceration of her parastomal hernia. Surgery was called for evaluation. During my exam I was able to reduce the hernia and she was noted to have gas and liquid stool in the bag. She denies any current nausea, vomiting, chest pain, SOB, fevers or chills. She states the pain at her ostomy is now improved but the crampy feeling in her abdomen is still present. [facility] Active Problems All Active Problems (Updated 10/02/25 @ 02:16 by Katie Roca MD) Complete obstruction of small intestine (Acute) Crohn's disease (Acute) Hypomagnesemia (Acute) Abnormal laboratory test (Acute) Medication management (Acute) Altered mental status (Acute) Hypertension (Chronic) Hypothyroid (Chronic) Leukocytosis (Acute) Constipation (Chronic) Somnolence (Acute) Crohn disease (Chronic) Abdominal pain (Acute) Contact dermatitis (Acute) Contact dermatitis due to feces (Acute) Grief (Acute) Ileostomy in place (Acute) Encounter for attention to ileostomy (Acute) Delayed gastric emptying (Acute) Hypomagnesemia (Acute) Flashbacks (Acute) Allergic conjunctivitis (Acute) Panic attack (Acute) Hyperkalemia (Acute) Hypothermia (Acute) Chronic pain (Acute) Depression (Acute) Parastomal hernia (Acute) Swelling of right lower extremity (Acute) Malabsorption (Acute) Weakness (Acute) Medical History Medical History (Updated 10/02/25 @ 02:16 by Katie Roca MD) History of lung abscess Urinary retention Insomnia Problem List clean-up per request of Phys. EHR Cmte Cellulitis of right leg Leukopenia Thrombocytopenia Chronic hyperkalemia History of seizure related to alcohol withdrawal Crohn disease Alcohol dependence in remission UTI (urinary tract infection) Surgical History Surgical History H/O colectomy with end ileostomy at age 13 Hx of neck surgery for an epidural abscess Hx of hernia repair parastomal Family History Family History (Updated 08/14/25 @ 12:20 by Adan Deng RN) Mother Dementia Cancer Sister Cancer Social History Social History Smoking Status: Smoker with current status unk Second hand tobacco smoke exposure: No Do you dip or chew tobacco?: No Do you vape?: No Patient requests smoking cessation consult: No Initiate information on smoking cessation: No Living arrangement: At home Living Condition: With spouse/s.o. 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 Service: No POLST Patient has POLST: Yes POLST CPR Status: Attempt Resuscitation (CPR) Level of Medical Intervention: Full Treatment Meds/Allgy Home Medications Ambulatory Orders Medication Instructions Recorded Confirmed amlodipine 5 mg tablet 5 mg PO DAILY 06/24/2410/02 thiamine mononitrate (vit B1) 100 100 mg PO DAILY 12/2810/02/25 mg tablet food supplemt, lactose-reduced 1 ea PO QID PRN low blo od sugar 03/06/25 10/02/25 (Ensure oral liquid) #237 mL doxazosin 1 mg tablet (Cardura) 1 mg PO QPM 03/14/25 1 12/03/24 pantoprazole 40 mg tablet,delayed 40 mg PO QDAC #30 ta bs 05/05/25 10/02/25 release acetaminophen 500 mg tablet 1,000 mg PO BID PRN pain 0 05/13/25 10/02/25 cholecalciferol (vitamin D3) 25 25 mcg PO DAILY 10/02/25 mcg (1,000 unit) capsule (Vitamin D3) blood sugar diagnostic (FreeStyle #50 ea 07/09/2502/21 Precision Yoni Strips) blood-glucose sensor (FreeStyle #2 ea 08/12/25 5 Beba 2 Plus Sensor device) sertraline 50 mg tablet 50 mg PO DAILY 08/12/2502/21 mupirocin 2 % topical ointment 1 applic topical BID 10/02/25 (Centany) nystatin 100,000 unit/gram topical 1 applic topical BI D 09/14/25 10/02/25 cream sodium zirconium cyclosilicate 10 10 g PO BID 09/14/25 10/02/25 gram oral powder packet (Lokelma) zinc oxide-cod liver oil 40 % 1 applic topical BID 10/02/25 topical paste (Desitin) levothyroxine 75 mcg tablet 37.5 mcg (1/2 x 75 mcg) PO QDAC 09/27/25 10/02/25 #30 tabs sodium chloride 1,000 mg soluble 1,000 mg PO TID 09/2710/02/25 tablet glucose 4 gram chewable tablet 4 g PO QID PRN low bloo d sugar 10/02/25 10/02/25 (Dex4 Glucose) hydrocodone 5 mg-acetaminophen 325 1 tab PO Q6H PRN se chad pain 10/02/25 10/02/25 mg tablet magnesium oxide 400 mg (241.3 mg 400 mg PO TID 5 10/02/25 magnesium) tablet Allergies Allergies Allergy/AdvReac Type Severity Reaction Status Date / Time Penicillins Allergy Anaphylaxis Verified 10/02/25 00:47 vancomycin Allergy Rash Verified 10/02/25 00:47 ciprofloxacin (From Cipro) AdvReac Intermediate Dizziness Verified 10/02/25 00:47 methocarbamol AdvReac Dizziness Verified 10/02/25 00:47 Results Lab Results Lab results reviewed: Yes 10/02/25 00:36 10/02/25 14:10 Other Lab Results: Lab Results x24hrs 10/02/25 10/02/25 10/02/25 Range/Units 14:10 11:55 11:03 WBC (4.8-10.8) x10^3/uL RBC (4.20-5.40) 10^6/uL Hgb (12.0-16.0) g/dL Hct (37.0-47.0) % MCV (81.0-99.0) fL MCH (27.0-31.0) pg MCHC (32.0-36.0) g/dL RDW (12.0-15.0) % Plt Count (130-450) 10^3/uL MPV (7.9-10.8) fL Neut # (Auto) (1.5-6.6) 10^3/uL Lymph # (Auto) (1.5-3.5) 10^3/uL Crenshaw # (Auto) (0.0-1.0) 10^3/uL Eos # (Auto) (0.0-0.7) 10^3/uL Baso # (Auto) (0.0-0.1) 10^3/uL Absolute Nucleated RBC x10^3/uL Nucleated RBC % /100WBC Sodium 138 (135-145) mmol/L Potassium 4.8 H (3.5-4.5) mmol/L Chloride 111 (101-111) mmol/L Carbon Dioxide 26 (21-32) mmol/L Anion Gap 1.0 L (6-13) BUN 13 (6-20) mg/dL Creatinine 0.5 L (0.6-1.3) mg/dL Estimated GFR (MDRD) 124 (>89) Glucose 71 L (74-104) mg/dL POC Whole Bld Glucose 97 59 (70-100) mg/dL Calcium 9.1 (8.5-10.3) mg/dL Magnesium 1.9 (1.7-2.3) mg/dL Total Bilirubin (0.2-1.0) mg/dL AST (10-42) IU/L ALT (10-60) IU/L Alkaline Phosphatase (42-121) IU/L Total Protein (6.4-8.9) g/dL Albumin (3.2-5.5) g/dL Globulin (2.1-4.2) g/dL Albumin/Globulin Ratio (1.0-2.2) Lipase (11-82) U/L Urine Color Urine Clarity (CLEAR) Urine pH (5.0-7.5) PH Ur Specific Cliff (1.002-1.030) Urine Protein (NEGATIVE) mg/dL Urine Glucose (UA) (NEGATIVE) mg/dL Urine Ketones (NEGATIVE) mg/dL Urine Occult Blood (NEGATIVE) Urine Nitrite (NEGATIVE) Urine Bilirubin (NEGATIVE) Urine Urobilinogen (NORMAL) E.U./dL Ur Leukocyte Esterase (NEGATIVE) Ur Microscopic Review Urine Culture Comments 10/02/25 10/02/25 10/02/25 Range/Units 06:05 02:45 00:36 WBC 5.1 (4.8-10.8) x10^3/uL RBC 3.25 L (4.20-5.40) 10^6/uL Hgb 9.8 L (12.0-16.0) g/dL Hct 29.9 L (37.0-47.0) % MCV 92.0 (81.0-99.0) fL MCH 30.2 (27.0-31.0) pg MCHC 32.8 (32.0-36.0) g/dL RDW 14.9 (12.0-15.0) % Plt Count 144 (130-450) 10^3/uL MPV 10.4 (7.9-10.8) fL Neut # (Auto) 4.3 (1.5-6.6) 10^3/uL Lymph # (Auto) 0.4 L (1.5-3.5) 10^3/uL Crenshaw # (Auto) 0.3 (0.0-1.0) 10^3/uL Eos # (Auto) 0.0 (0.0-0.7) 10^3/uL Baso # (Auto) 0.0 (0.0-0.1) 10^3/uL Absolute Nucleated RBC 0.02 x10^3/uL Nucleated RBC % 0.4 /100WBC Sodium 137 141 (135-145) mmol/L Potassium 4.8 H 5.1 H (3.5-4.5) mmol/L Chloride 108 113 H (101-111) mmol/L Carbon Dioxide 27 23 (21-32) mmol/L Anion Gap 2.0 L 5.0 L (6-13) BUN 18 22 H (6-20) mg/dL Creatinine 0.5 L 0.5 L (0.6-1.3) mg/dL Estimated GFR (MDRD) 124 124 (>89) Glucose 74 81 (74-104) mg/dL POC Whole Bld Glucose (70-100) mg/dL Calcium 9.0 9.9 (8.5-10.3) mg/dL Magnesium 1.3 L (1.7-2.3) mg/dL Total Bilirubin 0.2 (0.2-1.0) mg/dL AST 20 (10-42) IU/L ALT 31 (10-60) IU/L Alkaline Phosphatase 83 (42-121) IU/L Total Protein 7.0 (6.4-8.9) g/dL Albumin 3.7 (3.2-5.5) g/dL Globulin 3.3 (2.1-4.2) g/dL Albumin/Globulin Ratio 1.1 (1.0-2.2) Lipase 25 (11-82) U/L Urine Color YELLOW Urine Clarity CLEAR (CLEAR) Urine pH 6.0 (5.0-7.5) PH Ur Specific Cliff 1.015 (1.002-1.030) Urine Protein NEGATIVE (NEGATIVE) mg/dL Urine Glucose (UA) NEGATIVE (NEGATIVE) mg/dL Urine Ketones NEGATIVE (NEGATIVE) mg/dL Urine Occult Blood NEGATIVE (NEGATIVE) Urine Nitrite NEGATIVE (NEGATIVE) Urine Bilirubin NEGATIVE (NEGATIVE) Urine Urobilinogen 0.2 (NORMAL) (NORMAL) E.U./dL Ur Leukocyte Esterase NEGATIVE (NEGATIVE) Ur Microscopic Review NOT INDICATED Urine Culture Comments NOT INDICATED Review of Systems Status of ROS: 10 or more systems reviewed and unremarkable except as noted in history and below Exam Exam Vital Signs: Vital Signs x48h Temp Pulse Resp BP Pulse Ox 10/02/25 16:43 36.3 C L 53 L 16 177/97 H 98 12/04/25 16:43 36.3 C L 53 L 16 177/97 H 98 10/02/25 13:00 36.4 C L 50 L 18 168/90 H 99 Constitutional normal general appearance and no apparent distress HENMT normocephalic and head/scalp atraumatic Eyes conjunctivae normal and no scleral icterus Neck/C-Spine visual inspection normal Respiratory normal respiratory effort Cardiovascular normal heart rate noted and regular rhythm noted Gastrointestinal R sided ileostomy noted with surrounding bulge and feeling of hernia incarceration, during the exam the hernia was reduced after which the abdomen was noted to be soft. Non tender to palpation after reduction with gas and stool noted in her ostomy bag. Extremities normal to inspection Neurology no movement abnormality noted Psychiatry cooperative and affect normal Skin skin color normal Conclusion/Plan Problem List (1) Complete obstruction of small intestine: (2) Hypomagnesemia: (3) Parastomal hernia: Qualifiers: Obstruction and gangrene presence: without obstruction or gangrene Q ualified Code(s): K43.5 - Parastomal hernia without obstruction or gangrene Plan 65 yo F w/ pmh of Crohns disease s/p ileostomy and recurrent SBO who presented to the ED on 10/02 for evaluation of severe abdominal pain and decreased ostomy output. Her CT imaging in the ED showed evidence of SBO and she was admitted to medicine but while in the ED she had increased output from her ostomy and her abdominal pain resolved. She then had recurrence of her symptoms today after which surgery was called. Hernia was reduced during her exam after which her symptoms improved. - Agree with gastrograffin challenge - If continued improvement with output then no further intervention indicated - Recommend she follow up with her surgeon at [place] for repair - Discussed with the patient and family at bedside - Discussed with primary team Lab Results Lab results reviewed: Yes 10/02/25 00:36 10/02/25 14:10
[2025-10-02] MEDS ORDERED: DIATR MEGLU/DIATRIZOATE SODIUM 120 ML BOTTLE ONE (20:13)
[2025-10-02] MEDS: DIATR MEGLU/DIATRIZOATE SODIUM 120 ML BOTTLE PO ONE (20:20)
[2025-10-02 20:54] VITALS: BP 136/79; TEMP 97.2; O2SAT 96
--- OUTSIDE RECORDS SUMMARY | 2025-10-05 02:59 | EXTERNAL MEDICAL SUMMARY RPT | Encounter Summary ---
Author Organization [facility] Address [address] [place] [id number] Care Team Providers Care Terrazzo Worker Name Role Phone Amy Yancey Unavailable [phone] Reason for Referral * Radiology (Routine) - Closed Specialty Diagnoses / Procedures Referred By Ambrose carter Referred To Contact Radiology Diagnoses Parastomal hernia without obstruction or gangrene Procedures REF RADIOLOGY CT ABD & PELVIS W/O CONTRST 1+ BODY REGNS CT ABD & PELVIS W/CONTRAST Amy Yancey ARNP [facility] [address] [place] [address] Phone: tel: fax: [facility] [address] [place] [address] Phone: tel: Referral ID Status Reason Start Date Expiration Date V isits Requested Visits Authorized [id number] Closed Itemized Services 12/01/2021 05/31/2022 4 4 Encounter Details Date Type Department Care Team (Late st Contact Info) Description 11/30/2021 Community Orders Non [facility] Provider Amy Yancey ARNP [facility] [address] [place] [address] Parastomal hernia without obstruction or gangrene (Primary Dx) Social History Tobacco Use Types Packs/Day Years Used Date Smoking Tobacco: Never Assessed Comments Unknown Sex and Gender Information Value Date Recorded Sex Assigned at Not on file Legal Sex Female 6:53 AM PST Gender Identity Not on file Sexual Orientation Not on file documented as of this encounter Plan of Treatment Not on file documented as of this encounter Visit Diagnoses Diagnosis Parastomal hernia without obstruction or gangrene- Primary Hernia of unspecified site of abdominal cavity without mention of obstruction or gangrene documented in this encounter Care Teams Terrazzo Worker Relationship Specialty Start Date End Date Amy Yancey ARNP [address] [id number] Family Medicine 04/13/20 documented as of this encounter
--- OUTSIDE RECORDS SUMMARY | 2025-10-05 02:59 | EXTERNAL MEDICAL SUMMARY RPT ---
Author Organization [facility] Care Team Providers Care Surgery Scheduling Coordinator Name Role Phone RAMONE NAVARRO Unavailable Unavailable JACQUELYN MUÑOZ Unavailable Unavailable LITO KOO Unavailable Unavailable LETICIA PATINO Unavailable Unavaila WILLIAM Cho Unavailable Unavailable Allergies and adverse reactions Code CodeSystem Substance Reaction Severity StartDate Concern Status 2551 RXNORM Ciprofloxacin Unknown 10/25/2023 active 6545 RXNORM Methocarbamol Unknown 10/25/2023 active Sulfamethoxazole /Trimetho prim Unknown 10/25/2023 active 32334 RXNORM Vancomycin Unknown 10/25/2023 active Care Team Name Role Address Phone Organization Dates WILLIAM GRACIA PCP [address], [place], [address], [place] (Office): : [facility] 10/26/2023 - 12/09/2023 RAMONE NAVARRO [address] , [place], [address], [facility] (Office): : [facility] 10/26/2023 - 12/09/2023 JACQUELYN MUÑOZ [address] , [place], [address], [facility] (Office): : [facility] 10/26/2023 - 12/09/2023 LITO KOO [address] , [place], [address], [facility] (Office): : [facility] 10/26/2023 - 12/09/2023 LETICIA PATINO [address] [place] [address], [address], [facility] (Office): [facility] 10/26/2023 - 12/09/2023 Immunizations Immunization Status Vaccine Details Vaccine Code CodeSystem Date Notes Influenza completed Influenza, high-dose, split virus, quadrivalent, injectable, preservative free lotNumber: [id number] expiry: 04/28/2024 Mfg: Flucelvax Quadrivalent Given 0.5 ml Right Deltoid intramuscularly 197 CVX created date: 3 consent date: 3 administe red date: 3 Rosette Leone TB 2 Step Mantoux Skin Test completed tuberculin skin test; unspecified formulation lotNumber: [id number] expiry: 09/29/2026 Mfg: Sanofi PastAeur Limitedited Given 0.1 ml Left Forearm intradermally Step 2 of Multi-step with next step required 98 CVX created date: 4 consent date: 4 administe red date: 4 administer by Sinan Almeida LPN TB 2 Step Mantoux Skin Test completed tuberculin skin test; unspecified formulation lotNumber: [id number] expiry: 09/29/2026 Mfg: [employer] Pasteur Limited Given 0.1 ml Right Forearm subcutaneously Step 1 of Multi-step with next step required 98 CVX created date: 3 consent date: 3 administe red date: 3 SARS-COV-2 (COVID-19) completed SARS-COV-2 (COVID-19) vaccine, mRNA, spike protein, LNP, preservative free, 100 mcg/0.5mL dose or 50 mcg/0.25mL dose Mfg: Moderna Given 0.5 ml intramuscularly Step 2 of Multi-step with next step required 207 CVX created date: 4 administe red date: 1 SARS-COV-2 (COVID-19) completed SARS-COV-2 (COVID-19) vaccine, mRNA, spike protein, LNP, preservative free, 100 mcg/0.5mL dose or 50 mcg/0.25mL dose Mfg: Moderna Given 0.5 ml intramuscularly Step 1 of Multi-step with next step required 207 CVX created date: 4 administe red date: 1 SARS-COV-2 (COVID-19) BOOSTER completed SARS-COV-2 (COVID-19) vaccine, mRNA, spike protein, LNP, preservative free, 100 mcg/0.5mL dose or 50 mcg/0.25mL dose Mfg: moderna booster Given 0.5 ml intramuscularly 207 CVX created date: 4 administe red date: 1 Medications Section Medication Name Status Code CodeSystem Dose Route Frequency Admin Type Sig Text Start Date End Date Indication Loperamide HCl Oral Capsule 2 MG active 31052 6 RXNORM 1 capsu le Oral as needed PRN Give 1 capsu le by mouth every 8 hours as neede d for diarr hea 2022 - diarrhea Acetaminoph en Oral Tablet 500 MG active 96016 0 RXNORM 2 table t Oral every 8 hours Routin e Give 2 table t by mouth every 8 hours for pain relat ed to [facility] OTHER ORTHO PEDIC AFTER CARE (Z47. 89) Not to excee d 3 gm of total aceta minop hen from [facility] es in 24 hours 2022 - pain Nystatin External Cream 156606 UNIT/GM active 12095 6 RXNORM n/a n/a Topica l two times a day Routin e Apply to [facility] [place] [facility] ally two times a day for preve nt funga l infec tion 2022 - prevent fungal infection Ondansetron Oral Tablet Disintegrat ing 4 MG active 04442 4 RXNORM 1 table t Oral as needed PRN Give 1 table t by mouth every 6 hours as neede d for n/v 2022 - n/v Lidocaine External Patch 4 % active 79574 94 RXNORM n/a n/a Topica l every 12 hours Routin e Apply to [facility] [place] topic ally every 12 hours for pain relat ed to [facility] NTER FOR OTHER ORTHO PEDIC AFTER CARE (Z47. 89) and remov e per sched ule 2022 - pain Thiamine HCl Oral Tablet 100 MG active 27953 3 RXNORM 1 table t Oral one time a day Routin e Give 1 table t by mouth one time a day relat ed to ALCOH OL USE, UNSPE CIFIE D, UNCOM PLICA SOLANGE (F10. 90);T HIAMI NE DEFIC IENCY , UNSPE CIFIE D (E51. 9) 2022 - - Melatonin Oral Tablet 3 MG active 77888 3 RXNORM 1 table t Oral at bedtime Routin e Give 1 table t by mouth at bedti me relat ed to INSOM MARIO, UNSPE CIFIE D (G47. 00) 2022 - - Senna Oral Tablet 8.6 MG active 1 table t Oral as needed PRN Give 1 table t by mouth every 12 hours as neede d for const ip 2022 - constip Gabapentin Oral Capsule 300 MG active 32210 1 RXNORM 1 capsu le Oral at bedtime Routin e Give 1 capsu le by mouth at bedti me for Neuro luis carlos 2023 - Neuropathy Losartan Potassium Oral Tablet 25 MG active 71418 5 RXNORM 2 table t Oral two times a day Routin e Give 2 table t by mouth two times a day for HOLD for SBP <100 relat ed to [facility] (PRIM ANA) HYPER TENSI ON (I10) 2023 - HOLD for SBP <100 Ferrous Sulfate Oral Tablet 325 (65 Fe) MG active 48706 5 RXNORM 1 table t Oral at bedtime Routin e Give 1 table t by mouth at bedti me relat ed to ANEMI A, UNSPE CIFIE D (D64. 9) Start AFTER guaia c x 3 are COMPL ETED 2023 - - Vitamin C Tablet active 1 unit Oral at bedtime Routin e Give 1 unit by mouth at bedti me for anemi a provi de w/iro n to incre ase absor ption 2023 - anemia Lactobacill us Oral Capsule active 55839 RXNORM 1 unit Oral two times a day Routin e Give 1 unit by mouth two times a day for Suppl ement , on IV Abx 2023 - Supplement, on IV Abx amLODIPine Besylate Oral Tablet 5 MG active 1 RXNORM 5 mg Oral two times a day Routin e Give 5 mg by mouth two times a day for HTN HOLD for SBP <100 2023 - HTN Cephalexin Oral Tablet 500 MG active 4 RXNORM 500 mg Oral every 6 hours Routin e Give 500 mg by mouth every 6 hours for MSSA bacte remia 2023 - MSSA bacteremia hydrALAZINE HCl Oral Tablet 10 MG active 26242 9 RXNORM 1 table t Oral two times a day Routin e Give 1 table t by mouth two times a day relat ed to [facility] (PRIM ANA) HYPER TENSI ON (I10) HOLD for SBP <100 2023 - - Mental Status Section Date Assessment Total Score Description 12/09/2023 BIMS 15 cognitively int act CAM 0 No delirium ind icated PHQ-9 10 moderate depres elva 10/29/2023 BIMS 15 cognitively int act CAM 0 No delirium ind icated PHQ-9 06 mild depression Insurance Providers Coverage Status Coverage Type Relationship to Subscriber Member Identifier Subscriber Identifier Group Identifier Payer Identifier and Other information 2023 Code: 51 Code System OID:[id number]. 5 Code System Name: Source of Payment Typology (PHDSC) Display: Managed Care (Private) Translation: Code: HM Code System: OID:[id number] .[id number]. 1336 Code System Name: Insurance Type Code ([id number]) Display Name: Health Maintenance Organization (HMO) Plan Code: SELF Code System Name: HL7 RoleCode Code System OID:[id number] Display Name: Juan Miguel [id number] Root: [id number] Payer Name: [facility] Address: [place] [address] City: [place] State: [place] Country: [facility] 2023 Code: 349 Code System OID:[id number] .[id number]. 5 Code System Name: Source of Payment Typology (PHDSC) Display: Other Translation: Code: C1 Code System: OID:[id number] .[id number]. 1336 Code System Name: Insurance Type Code ([id number]) Display Name: Commercial Insurance Code: SELF Code System Name: HL7 RoleCode Code System OID:[id number] Display Name: Juan Miguel [id number] Root: [id number] Payer Name: [facility] Address: [place] [address] City: [place] State: [place] Country: [facility] Problems Problem # Description Date of onset Resolved Date Code CodeSystem Concern Status 1 ABNORMAL RESULTS OF THYROID FUNCTION STUDIES 10/25/[address] active 2 ACUTE KIDNEY FAILURE, UNSPECIFIED 10/25/[address] active 3 ACUTE RESPIRATORY FAILURE, UNSPECIFIED WHETHER WITH HYPOXIA OR HYPERCAPNIA 10/25/[address] active 4 ALCOHOL USE, UNSPECIFIED, UNCOMPLICATED 10/25/[address] active 5 ANEMIA, UNSPECIFIED 10/25/[address] active 6 BACTEREMIA 10/25/[address] active 7 BRADYCARDIA, UNSPECIFIED 10/25/[address] active 8 CONSTIPATION, UNSPECIFIED 10/25/[address] active 9 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 10/25/[address] active 10 DELIRIUM DUE TO KNOWN PHYSIOLOGICAL CONDITION 10/25/[address] active 11 DYSPHAGIA, UNSPECIFIED 10/25/[address] active 12 ELEVATED BLOOD-PRESSURE READING, WITHOUT DIAGNOSIS OF HYPERTENSION 10/25/2010/25/[address] completed 13 ENCOUNTER FOR ATTENTION TO ILEOSTOMY 10/25/[address] active 14 ENCOUNTER FOR OTHER ORTHOPEDIC AFTERCARE 10/25/[address] active 15 ESSENTIAL (PRIMARY) HYPERTENSION 10/25/[address] active 16 EXTRADURAL AND SUBDURAL ABSCESS, UNSPECIFIED 10/25/[address] active 17 GENERALIZED SKIN ERUPTION DUE TO DRUGS AND MEDICAMENTS TAKEN INTERNALLY 10/25/[address] active 18 HYPEROSMOLALITY AND HYPERNATREMIA 10/25/[address] active 19 HYPOGLYCEMIA, UNSPECIFIED 10/25/[address] active 20 HYPOTENSION, UNSPECIFIED 10/25/[address] active 21 HYPOTHERMIA, SUBSEQUENT ENCOUNTER 10/25/[address] active 22 INSOMNIA, UNSPECIFIED 10/25/[address] active 23 INTRASPINAL ABSCESS AND GRANULOMA 10/25/20 23 10/25/[address] completed 24 IRRITABLE BOWEL SYNDROME, UNSPECIFIED 10/25/[address] active 25 METHICILLIN SUSCEPTIBLE STAPHYLOCOCCUS AUREUS INFECTION THE CAUSE OF DISEASES CLASSIFIED ELSEWHERE 10/25/[address] active 26 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[place], CERVICAL REGION 10/25/20732267356 SNOMED CT active 27 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[place], THORACIC REGION 10/25/20643848710 SNOMED CT active 28 OTHER CHRONIC PAIN 10/25/[address] active 29 OTHER INTERVERTEBRAL DISC DEGENERATION, LUMBAR REGION 10/25/[address] active 30 OTHER SPECIFIED DISORDERS OF MIDDLE EAR AND MASTOID, BILATERAL 10/25/[address] active 31 RESTLESSNESS AND AGITATION 10/25/[address] active 32 SEPSIS DUE TO METHICILLIN SUSCEPTIBLE STAPHYLOCOCCUS AUREUS 10/25/[address] active 33 SEVERE SEPSIS WITH SEPTIC SHOCK 10/25/[address] active 34 THIAMINE DEFICIENCY, UNSPECIFIED 10/25/[address] active 35 THROMBOCYTOPENIA, UNSPECIFIED 10/25/[address] active 36 UNSPECIFIED HEARING LOSS, BILATERAL 10/25/[address] active 37 UNSPECIFIED PROTEIN-CALORIE MALNUTRITION 10/25/[address] active 38 WERNICKE'S ENCEPHALOPATHY 10/25/[address] active Reason for Referral No Reasons for Referral Entered Social History Social History Observation Description Start Date End Date Code Code System Current Smoking Status Tobacco smoking consumption unknown 147905214 SNOMED CT Sex Assigned At Female 1960 59337-8 [facility] Gender Identity Sexual Orientation Vital Signs Code Code System Vitals Name Values and Units Timing Information 9279-1 [facility] Respiratory Rate Value=19.0 Units=/m in 12/09/2023 8462-4 [facility] Blood Pressure-Diastolic Value=72 Un its=mmHg 12/09/2023 8480-6 [facility] Blood Pressure-Systolic Mpllt=452 Un its=mmHg 12/09/2023 8310-5 [facility] Body Temperature Value=97.3 Units= F 12/09/2023 8867-4 [facility] Heart rate Value=56.0 Units=/min 07/2024 91731-8 [facility] O2 % BldC Oximetry Value=99.0 Units= % 12/09/2023 16212-2 [facility] Pain Level Value=2.0 12/09/2023 86573-2 [facility] Weight Value=93.2 Units=Lbs 0 06/2024 8302-2 [facility] Height Value=58.0 Units=Inches 10/26/2023
--- OUTSIDE RECORDS SUMMARY | 2025-10-05 02:59 | EXTERNAL MEDICAL SUMMARY RPT | Clinical Summary ---
Author Organization [facility] Address [address] [place] [address] Care Team Providers Care Grinder Set Up Operator Gear Tool Name Role Phone Unavailable Primary Care Provider Unavailabl e Social History Tobacco Use Types Packs/Day Years Used Date Smoking Tobacco: Never Assessed Comments Unknown Sex and Gender Information Value Date Recorded Sex Assigned at Not on file Legal Sex Female 8:24 AM PDT Gender Identity Not on file Sexual Orientation Not on file Plan of Treatment Health Maintenance Due Date Last Done Comments Hepatitis C Screening 1960 Depression Screening (PHQ-2) 1972 HIV Screening 01/13/1975 Cervical Cancer Screening 01/13/1985 HPV Self Collect 01/13/1985 HPV 01/13/1985 Pap 01/13/1985 Breast Cancer Screening [address] CT Colonography 01/13/2005 Colonoscopy 01/13/2005 Colorectal Cancer Screening 01/13/2005 FIT-DNA 01/13/2005 FOBT/FIT 01/13/2005 Sigmoidoscopy 01/13/2005 Pneumococcal Vaccine: 50+ Years (1 of 1 - PCV) 01/13/2010 Zoster Vaccine (1 of 2) 01/13/2010 Osteoporosis Screening 01/13/2025 COVID-19 Vaccine (4 - 2024-2 6 season) 2025 09/03/2021, 02/20/2021, 01/23/2021 Influenza Vaccine (#1) 2025 3, 08/04/2020 Lipid Disorders Screening 12/03/2029 12/03/2024 DTaP, Tdap and Td Vaccines ( 2 - Td or Tdap) 04/08/2032 04/08/2022 RSV Vaccine (1 - 1-dose 75+ series) 01/13/2035 HPV Vaccine Aged Out No longer eligi ble based on patient's age to complete this topic Hepatitis A Vaccine Aged Out No longe r eligible based on patient's age to complete this topic Meningococcal B Vaccine Aged Out No l onger eligible based on patient's age to complete this topic
--- OUTSIDE RECORDS SUMMARY | 2025-10-05 02:59 | EXTERNAL MEDICAL SUMMARY RPT | Encounter Summary ---
Author Organization [facility] Address [address] [place] [address] Care Team Providers Care Tenter Name Role Phone Amy Yancey Unavailable [phone] Reason for Referral * Outpatient Service (Routine) - Closed Specialty Diagnoses / Procedures Referred By Ambrose carter Referred To Contact General Surgery Diagnoses Colostomy in place Parastomal hernia without obstruction or gangrene Procedures REF GENERAL SURGERY - EXTERNAL OFFICE VISIT E&M EST PT, MODERATE MDM, 30-39 MINS Scott Sweeney Phone: tel: fax: [facility] [address] [place] [address] Referral ID Status Reason Start Date Expiration Date V isits Requested Visits Authorized [id number] Closed Evaluate and Treat-Surgery if Indicated 12/30/2022 06/28/2023 3 3 * Home Health Services (Routine) - Closed Specialty Diagnoses / Procedures Referred By Ambrose carter Referred To Contact Home Health Services Diagnoses Colostomy in place Procedures REF HOME [facility] OTHER THERAPY SERV Scott Sweeney Phone: tel: fax: Shey Santillan [facility] [address] [place] [address] Referral ID Status Reason Start Date Expiration Date V isits Requested Visits Authorized [id number] Closed Itemized Services 12/30/2022 02/28/2023 1 1 Encounter Details Date Type Department Care Team (Late st Contact Info) Description 12/30/2022 Orders Only Care Management [address] [place] [address] Katie Duong RN [address] [place] [address] (Primary Dx); Parastomal hernia without obstruction or gangrene Social History Tobacco Use Types Packs/Day Years Used Date Smoking Tobacco: Never Assessed Comments Unknown Sex and Gender Information Value Date Recorded Sex Assigned at Not on file Legal Sex Female 6:53 AM PST Gender Identity Not on file Sexual Orientation Not on file documented as of this encounter Plan of Treatment Not on file documented as of this encounter Visit Diagnoses Diagnosis Colostomy in place- Primary Colostomy status Parastomal hernia without obstruction or gangrene Hernia of unspecified site of abdominal cavity without mention of obstruction or gangrene documented in this encounter Care Teams Tenter Relationship Specialty Start Date End Date Amy Yancey ARNP [facility] [address] [place] [phone] Family Medicine 04/13/20 documented as of this encounter
--- OUTSIDE RECORDS SUMMARY | 2025-10-05 02:59 | EXTERNAL MEDICAL SUMMARY RPT | Encounter Summary ---
Author Organization [facility] Address [address] [place] [address] Care Team Providers Care Retail Advertising Account Executive Name Role Phone Amy Yancey Unavailable [phone] Encounter Details Date Type Department Care Team (Late st Contact Info) Description 02/19/2025 Community Orders Non [facility] Provider Zeynep Terrazas [address] [address] Social History Tobacco Use Types Packs/Day Years Used Date Smoking Tobacco: Never Assessed Comments Unknown Sex and Gender Information Value Date Recorded Sex Assigned at Not on file Legal Sex Female 6:53 AM PST Gender Identity Not on file Sexual Orientation Not on file documented as of this encounter Plan of Treatment Not on file documented as of this encounter Visit Diagnoses Not on filedocumented in this encounter Care Teams Retail Advertising Account Executive Relationship Specialty Start Date End Date Amy Yancey[place]OKASTA [place] [address] [place] [address] Family Medicine 04/13/20 documented as of this encounter
--- OUTSIDE RECORDS SUMMARY | 2025-10-05 02:59 | EXTERNAL MEDICAL SUMMARY RPT | Encounter Summary ---
Author Organization [facility] Address [address] [facility] [place] [address] Care Team Providers Care Charge Entry Name Role Phone Amy Yancey BOAT MOTOR MECHANIC Unavailable [phone] Encounter Details Date Type Department Care Team (Late st Contact Info) Description 09/25/2023 Orders Only [facility] Neurosurgery [address] [place] [address] Wilson Tsang MD [address] [place] [phone] Osteomyelitis of cervical spine (Primary Dx) Social History Tobacco Use Types [...] as of this encounter Visit Diagnoses Diagnosis Osteomyelitis of cervical spine- Primary Unspecified osteomyelitis, other specified site documented in this encounter Care Teams Charge Entry Relationship Specialty Start Date End Date [facility] [address] [place] [address] Family Medicine 04/13/20 documented as of this encounter
--- OUTSIDE RECORDS SUMMARY | 2025-10-05 02:59 | EXTERNAL MEDICAL SUMMARY RPT | Clinical Summary ---
Author Organization [facility] Address [address] [place] [address] Phone Care Team Providers Care Haul Driver Name Role Phone Amy Yancey CLIENT SERVICE EXECUTIVE Primary Care Provider [phone] Allergies Active Allergy Reactions Criticality Noted Date Comments Ciprofloxacin nausea High 07/11/2020 Gabapentin Other (see comments) 12/10/2024 sedation Losartan Other (see comments) 12/10/2024 Other Reaction(s): Not available RTA4 per outpatient nephrology losartan Methocarbamol Hallucinations,Ot her (see comments) High 10/22/2023 Could be methocarbamol related in the setting of acute illness (spinal abscess, prolonged hospitalization) and Wernicke's. Resolved after stop of methocarbamol and thiamine. Pt does not want to try it again. Could be med related in the setting of acute illness (spinal abscess, prolonged hospitalization) and Wernicke's. Resolved after stop of methocarbamol and thiamine. Pt does not want to try it again. Penicillins Anaphylaxis High 07/11/2020 Shortness of breath and swelling of joints Sulfamethoxazole nausea,Photosensi tivity High 02/14/2022 Sulfamethoxazole-Trimet hoprim nausea,Other (see comments),Photose nsitivity Low 07/11/2020 photosensitivity Vancomycin Anaphylaxis,Rash High 08/26/2023 Extensive rash and severe thrombocytopenia Extensive rash and severe thrombocytopenia Medications acetaminophen (TYLENOL) 500 MG tablet Take 2 tablets by mouth every 8 hours 3 Active amLODIPine (NORVASC) 5 MG tablet Take 1 tablet by mouth 1 (one) time each day 4 Active citalopram (CeleXA) 10 MG tablet Take 10 mg by mouth 1 (one) time each day Active Multiple Vitamins-Minerals (Emergen-C Vitamin C) pack 4 Active sodium chloride 1 g tablet Take 2 g by mouth in the morning and 2 g before bedtime. 4 Active Sodium Zirconium Cyclosilicate (Lokelma) 10 g pack 5 Active traMADol (ULTRAM) 50 MG tablet Take 50 mg by mouth every 8 (eight) hours if needed 4 Active cefuroxime (CEFTIN) 500 MG tablet take 1 tablet by mouth twice a day for 7 days 5 Active cephalexin (KEFLEX) 500 MG capsule take 1 capsule by mouth four times a day for 5 days 5 Active levothyroxine (SYNTHROID) 25 MCG tablet Active doxazosin (CARDURA) 2 MG tablet Take 1 tablet (2 mg total) by mouth every night 30 tablet 5 5 Active Active Problems Problem Noted Date Diagnosed Date Ileostomy present 11/05/2024 Hearing loss 11/05/2024 Hyperkalemia 08/19/2024 Impaired mobility 05/18/2024 Crohn's disease 05/15/2024 Hyponatremia 05/15/2024 Hypophosphatemia 05/15/2024 Hypomagnesemia 05/15/2024 Hypokalemia 05/15/2024 Bilateral hearing loss 10/25/2023 Hyperosmolality and or hypernatremia 10/25/2023 Hypernatremia 08/30/2023 Thrombocytopenia 08/27/2023 Alcohol dependence 07/03/2023 Anemia 07/11/2020 Crohn's disease of both smal l and large intestine without complication 07/11/2020 Immunizations Immunization Administration Dates Next Due Influenza, Injectable, Quadr ivalent, Preservative Free 08/04/2020 Influenza, Quadrivalent 10/28/2023 Moderna Sars-cov-2 Vaccination 09/03/2021,2020,01/23/2021 Tdap 04/08/2022 Social History Tobacco Use Types Packs/Day Years Used Date Smoking Tobacco: Never Smokeless Tobacco: Never Tobacco Cessation:Counseling Given: Not Answered Alcohol Use Standard Drinks/Week Comments Never 0 (1 standard drink = 0.6 oz pur e alcohol) Comments Unknown Sex and Gender Information Value Date Recorded Sex Assigned at Not on file Legal Sex Female 10:02 AM MST Gender Identity Not on file Sexual Orientation Not on file Last Filed Vital Signs Vital Sign Reading Time Taken Comments Blood Pressure 155/89 03/06/2025 11:51 AM PDT Pulse 54 03/06/2025 11:51 AM PDT Temperature - - Respiratory Rate - - Oxygen Saturation - - Inhaled Oxygen Concentration - - Weight 42 kg (92 lb 8 oz) 03/06/2025 11:51 AM PD T Height 147.3 cm (4' 10") 03/06/2025 11:51 AM PDT Body Mass Index 19.33 03/06/2025 11:51 AM PDT Plan of Treatment Health Maintenance Due Date Last Done Comments Pneumococcal PPSV23/PCV13 65 + Years / High and Highest Risk (1 of 5 - PCV) 01/13/1979 COVID-19 Vaccine (2024- season) 2025 09/03/2021, 02/20/2021, 01/23/2021 Influenza Vaccine (#1) 2025 08/04/2020 Insurance MEDICARE [place] [id number] Care Teams Haul Driver Relationship Specialty Start Date End Date Amy Yancey NP [address] [place] [address] PCP - General Internal Medicine 11/04/24
--- OUTSIDE RECORDS SUMMARY | 2025-10-05 02:59 | EXTERNAL MEDICAL SUMMARY RPT | Encounter Summary ---
Author Organization [facility] Address [address] [place] [address] Care Team Providers Care Gristmiller Name Role Phone Amy Yancey Unavailable [phone] Reason for Referral * Outpatient Service (Routine) - Authorized Specialty Diagnoses / Procedures Referred By Ambrose carter Referred To Contact General Surgery Diagnoses Parastomal hernia without obstruction or gangrene Procedures REF GENERAL SURGERY - EXTERNAL RPR PARASTOMAL HRNA 1ST/RECR [id number]/STRANGULATED Scott Sweeney Phone: tel: fax: [facility] [address] [place] [address] Referral ID Status Reason Start Date Expiration Date Visits Requested Visits Authorized [id number] Authorized Procedure Only 11/18/2022 11/18/2023 1 1 Encounter Details Date Type Department Care Team (Late st Contact Info) Description 11/18/2022 Community Orders Non [facility] Provider Scott Sweeney [address] [place], [place] [id number] Parastomal hernia without obstruction or gangrene (Primary [...] gangrene documented in this encounter Care Teams Gristmiller Relationship Specialty Start Date End Date Amy Yancey ARNP [address] [phone] Family Medicine 04/13/20 documented as of this encounter
--- OUTSIDE RECORDS SUMMARY | 2025-10-05 02:59 | EXTERNAL MEDICAL SUMMARY RPT | Encounter Summary ---
Author Organization [facility] Address [address] [place] [address] Care Team Providers Care Supervisor [place] Name Role Phone Amy Yancey Unavailable [phone] Encounter Details Date Type Department Care Team (Late st Contact Info) Description 02/12/2025 Community Orders Non [facility] Provider Jennifer [place] [facility] [address] [place], [place] [id number] Social History Tobacco Use Types Packs/Day Years [...] on filedocumented in this encounter Care Teams Supervisor [place] Relationship Specialty Start Date End Date Amy Yancey ARNP [address] [address] Family Medicine 04/13/20 documented as of this encounter
--- OUTSIDE RECORDS SUMMARY | 2025-10-05 02:59 | EXTERNAL MEDICAL SUMMARY RPT ---
Author Organization [facility] Address [address] [place] [address] Care Team Providers Care State Appellate Clerk Name Role Phone Amy Yancey Unavailable [phone] Complex Case Management Status:Waiting for Initial Call (Active) Start date:09/26/2025 Enrollment date:09/26/2025 Enrollment reason:Identified using hospital discharge data Overview Pt identified as a high ED utilizer w/ 7 ED/UC visits in the last 6 months. Pt is a 71 yr old who presented to the [facility] for unknown reasons at this time. Clinical information is limited. Pt also doesn't have an identified PCP. Cm for care management and high utilization. Pt IS On Registry Case Team Name Relationship Phone Judy Calles RN(Responsible Staff) Continued Care and Services Coordination
--- OUTSIDE RECORDS SUMMARY | 2025-10-05 02:59 | EXTERNAL MEDICAL SUMMARY RPT | Clinical Summary ---
Author Organization [facility] Address [address] [place] [address] Care Team Providers Care Equipment Tech Name Role Phone Wendy Guerrier YOKASTA Primary Care Provider [phone] Bubba Diaz MD Unavailable [phone] Quita Arzola MD Unavailable [phone] Allergies Active Allergy Reactions Criticality Noted Date Comments Ciprofloxacin High 02/14/2022 Gabapentin 12/10/2024 Other Reaction(s): Other (See Comments) sedation Losartan 12/10/2024 Other Reaction(s): Other (See Comments) Other Reaction(s): Not available RTA4 per outpatient nephrology losartan RTA4 per outpatient nephrology Methocarbamol Hallucinations High 10/22/2023 Other Reaction(s): Hallucinations, Other (see comments) Could be methocarbamol related in the setting [...] want to try it again. Could be methocarbamol related in the setting of acute illness (spinal abscess, prolonged hospitalization) and Wernicke's. Resolved after stop of methocarbamol and thiamine. Pt does not want to try it again. Could be med related in the setting of acute illness (spinal abscess, prolonged hospitalization) and Wernicke's. Resolved after stop of methocarbamol and thiamine. Pt does not want to try it again. Penicillin G High 02/14/2022 Sulfamethoxazole High 02/14/2022 Vancomycin Anaphylaxis,Rash High 08/26/2023 Extensive rash and severe thrombocytopenia Extensive rash and severe thrombocytopenia Extensive rash and severe thrombocytopenia Medications acetaminophen (TYLENOL) 325 MG Tab Take 1 Tablet by mouth every 4 hours as needed. Active amLODIPine (NORVASC) 5 MG Tab Take 1 Tablet by mouth once daily. 4 Active cetirizine (ZYRTEC) 10 MG Tab Take 1 Tablet by mouth once daily as needed. 5 Active cholecalciferol (VITAMIN D3) 25 MCG (1000 UNITS) Tab Take 1 Tablet by mouth once daily. Active doxazosin (CARDURA) 1 MG Tab Take 1 Tablet by mouth once daily. Active hydrocodone-acetam inophen (NORCO) 5-325 mg Tab Take 1 Tablet by mouth every 6 hours as needed. Active hydrOXYzine pamoate (VISTARIL) 25 MG Caps Take 1 Capsule by mouth three times a day as needed. Active leVOTHYroxine (SYNTHROID) 25 MCG Tab Take 1 Tablet by mouth once daily. 5 Active Multiple Vitamins-Minerals (EMERGEN-C VITAMIN C) Pack 4 Active pantoprazole (PROTONIX) 40 MG Tab EC Take 1 Tablet by mouth once daily. 5 Active sertraline (ZOLOFT) 25 mg Tab Take 1 Tablet by mouth once daily. 5 Active sodium zirconium cyclosilicate (LOKELMA) 10 g Pack Take 10 g by mouth twice daily. 5 Active Active Problems Problem Noted Date Diagnosed Date Essential hypertension 10/25/2023 Parastomal hernia 12/13/2022 Acquired absence of other sp ecified parts of digestive tract 02/15/2022 Crohn's disease of small intestine 02/15/2022 Encounters Date Type Department Care Team Description 08/05/2025 3:00 PM PDT Ancillary Procedure [facility] MRI [address] [place] [id number] from Last 3 Months Immunizations Immunization Administration Dates Next Due COVID-19 MRNA (MODERNA) 100 MCG/0.5 ML ,02/20/2021,01/23/2021 INFLUENZA IM HIGH DOSE IIV4 10/28/2023 INFLUENZA IM PF 6 MOS+ IIV4 08/04/2020 Tdap (Adacel, Boostrix) 04/08/2022 Family History Medical History Relation Name Comments Crohn's disease Brother Breast Cancer Mother Crohn's disease Sister Colon Cancer No FHX Relation Name Status Comments Brother Alive Mother Sister Alive Social History Tobacco Use Types Packs/Day Years Used Date Smoking Tobacco: Never Passive Smoke Exposure: Never Smokeless Tobacco: Never Tobacco Cessation:Counseling Given: Not Answered Alcohol Use Standard Drinks/Week Comments Yes 0 (1 standard drink = 0.6 oz pur e alcohol) occasional Comments Unknown Sex and Gender Information Value Date Recorded Sex Assigned at Female 11/23/2023 5:27 PM PST Legal Sex Female 5:27 PM PST Gender Identity Not on file Sexual Orientation Not on file Last Filed Vital Signs Vital Sign Reading Time Taken Comments Blood Pressure 108/60 06/27/2025 9:46 AM PDT Pulse 61 06/27/2025 9:46 AM PDT Temperature - - Respiratory Rate - - Oxygen Saturation 99% 06/27/2025 9:46 AM PDT Inhaled Oxygen Concentration - - Weight 42.6 kg (94 lb) 06/27/2025 9:46 AM PDT Height 142.2 cm (4' 8") 06/27/2025 9:46 AM PDT Body Mass Index 21.07 06/27/2025 9:46 AM PDT Plan of Treatment Health Maintenance Due Date Last Done Comments Breast Cancer Screening (Mammogram) 1960 CT Colonography 1960 FIT Yearly 1960 FIT-DNA 1960 FOBT 1960 Sigmoidoscopy 1960 Depression Screening 1960 [facility] SCRN: HIV-UNIVERSAL SCRN 01/13/1975 Pap Smear 01/13/1981 Cervical Cancer Screening 01/13/1990 Colon Cancer Screening 01/13/1990 Colonoscopy 01/13/1990 HPV + Pap Cotesting 01/13/1990 SCRN: FOR HYPERLIPIDEMIA (ADULT) 2000 IMM: Pneumococcal Vaccine (1 of 1 - PCV) 01/13/2010 IMM: SHINGRIX (1 of 2) 01/13/2010 Advance Care Planning 10/30/2024 SCRN: FOR OSTEOPOROSIS (AGE 65-85 YEARS) 01/13/2025 Screen for Fall Risk (>65Y) 01/13/2025 Medicare Initial Physical (IPPE) [id number] 04/29/2025 IMM: COVID-19 ( - season) 2025 09/03/2021, 02/20/2021, 01/23/2021 IMM: INFLUENZA (AGE > 6 MONTHS) (#1) 06/30/2025 10/28/2023, 08/04/2020 IMM: DTAP/TDAP/TD (2 - Td or Tdap) 04/08/2032 04/08/2022 IMM: RSV ( patients and Patients AGE > 60 YEARS OLD) (1 - 1-dose 75+ series) 01/13/2035 SCRN: FOR HEPATITIS C ROUTIN E (18-79 Years) Completed 08/29/2023 IMM: HEPATITIS A Aged Out No longer e ligible based on patient's age to complete this topic IMM: HEPATITIS B Aged Out No longer e ligible based on patient's age to complete this topic IMM: MENINGOCOCCAL ACWY Aged Out No l onger eligible based on patient's age to complete this topic IMM: RSV (AGE < 20 MONTHS) Aged Out N o longer eligible based on patient's age to complete this topic Procedures Procedure Name Priority Date/Time Associated Diagnosis Comments O MRI ENTEROGRAPHY W/O CONTRAST Routine 08/05/2025 10:18 PM PDT Crohn's disease of small intestine without complication (Multi-HCC) from Last 3 Months Results * MRI Enterography Without Contrast (08/05/2025 10:18 PM PDT) Anatomical Region Laterality Modality Abdomen Magnetic Resonan ce Impressions 08/07/2025 3:15 PM PDT IMPRESSION: No imaging signs of active inflammation. Colectomy with right lower quadrant ileostomy. Parastomal hernia containing a longer than expected ileum, stable from prior. Stable 1.7 cm T2 intermediate lesion without suspicious imaging features. Reviewed by: Tommy Diaz MD on 08/07/2025 2:15 PM AKWARREN Approved by: Tommy Diaz MD on 08/07/2025 2:15 PM AKDT Station ID: [id number] Narrative 08/07/2025 3:15 PM PDT PROCEDURE: MRI ENTEROGRAPHY W/&W/O CONTRAST INDICATIONS: Crohn's ileitis. TECHNIQUE: Multiphasic, multisequence MRI of the abdomen and pelvis was performed, without intravenous contrast. COMPARISON: MR 03/03/2025, CT 06/06/2025 FINDINGS: Image quality: Excellent. Bowel Loops: Colectomy with right lower quadrant ileostomy. No imaging evidence of active inflammatory bowel disease. OTHER Lung bases and heart: Unremarkable. Liver: Stable 1.7 cm segment 7 T2 intermediate lesion. Gallbladder: No stones or wall thickening. Biliary tree: No intrahepatic or extrahepatic dilation. No evidence of PSC. Spleen: No splenomegaly. Pancreas: No pancreatic ductal dilation. Adrenals: No adrenal nodule. Kidneys and ureters: No hydronephrosis. No renal cystic lesion which requires follow up. No solid mass. Lymph nodes: No central or retroperitoneal adenopathy. Vessels: No infrarenal aortic aneurysm. Pelvic Organs: Unremarkable. Bones: No evidence of sacroiliitis. No femoral head avascular necrosis. Other: Parastomal hernia containing a longer than expected ileum. Bubba Diaz MD MRI Edited Result - Final from Last 3 Months Insurance [employer] [place] Care Teams Equipment Tech Relationship Specialty Start Date End Date Wendy Guerrier ARNP [address] [facility] [address] [place] [address] PCP - General Family Medicine 05/19/25 Bubba Diaz MD [address] [place] [address] Gastroenterology 06/27/25 Quita Arzola MD [address] [facility] [place] [address] General Surgery 06/27/25
--- OUTSIDE RECORDS SUMMARY | 2025-10-05 02:59 | EXTERNAL MEDICAL SUMMARY RPT | Encounter Summary ---
Author Organization [facility] Address [address] [place] [address] Care Team Providers Care Airset Caster Name Role Phone Amy Yancey Unavailable [phone] Reason for Referral * Radiology (Urgent) - Authorized Specialty Diagnoses / Procedures Referred By Ambrose carter Referred To Contact Radiology Diagnoses Abnormal level of hormones in specimens from ot org/tiss Procedures REF RADIOLOGY MRI ABDOMEN MRI ABD W/O/W/CONTR & FURTHER SEQUENCES MRI ABDOMEN Jennifer Adams [facility] [address] [place] [address] Phone: tel: fax: [facility] [address] [address] [place] [address] Referral ID Status Reason Start Date Expiration Date Visits Requested Visits Authorized [id number] Authorized Itemized Services 01/15/2025 07/18/2025 4 4 Encounter Details Date Type Department Care Team (Late st Contact Info) Description 01/15/2025 Community Orders Non [facility] Provider Jennifer Adams [facility] [address] [place] [address] Abnormal level of hormones in specimens from ot org/tiss (Primary Dx) Social History Tobacco Use Types [...] as of this encounter Visit Diagnoses Diagnosis 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- Primary documented in this encounter Care Teams Airset Caster Relationship Specialty Start Date End Date Amy Yancey ARNP [facility] [address] [place] [address] Family Medicine 04/13/20 documented as of this encounter
--- OUTSIDE RECORDS SUMMARY | 2025-10-05 02:59 | EXTERNAL MEDICAL SUMMARY RPT | Clinical Summary ---
Author Organization [facility] Address [address] [place] [address] Care Team Providers Care Sql Report Writer Name Role Phone Amy Yancey Unavailable [phone] Source Comments NOTE: The information displayed by Care Everywhere is extracted from the complete medical record and may not identify all current or past patient conditions.[facility] Allergies Active Allergy Reactions Criticality Noted Date Comments Sulfamethoxazole-Trime thoprim Nausea 10/22/2023 photosensitivity Ciprofloxacin Nausea High 10/22/2023 Methocarbamol Hallucinations High 10/22/2023 Could be methocarbamol related in the setting of acute illness (spinal abscess, prolonged hospitalization) and Wernicke's. Resolved after stop of methocarbamol and thiamine. Pt does not want to try it again. Sulfamethoxazole Nausea,Photosensitiv ity High 02/12/2025 Vancomycin Rash High 10/22/2023 Extensive rash and severe thrombocytopenia Medications LOKELMA 10 gram oral powder packet Dissolve 1 packet (10 g) into specified amount of liquid & drink 2 times daily 180 packet 3 03/06/2025 2:19 PM PDT Active Active Problems No known active problems Encounters Date Type Department Care Team Description 09/26/2025 Notes Encounter (No LOS) Care Management [address] [address] Maureen Hernandez LPN Diagnosis deferred (Primary Dx) 09/26/[address] [address] Ritchie Barth MD Care/Case Management from Last 3 Months Immunizations Immunization Administration Dates Next Due *STANDARD DOSE SYRINGE* (FluLAVAL,FluZONE,FluARIX or AFLURIA) (6+ mos) QUAD 08/04/2020 Influenza Vaccine, Quadrival ent, Adjuvanted (FLUAD QUAD) 10/28/2023 Moderna SARS-CoV-2 Vaccinati on (12 + y/o)(CURATOR HERBARIUM) 09/03/2021,02/20/2021,01/23/2021 Tdap (Tetanus, Diphtheria, a cellular Pertussis) 04/08/2022 Social History Tobacco Use Types Packs/Day Years Used Date Smoking Tobacco: Never Assessed Comments Unknown Sex and Gender Information Value Date Recorded Sex Assigned at Not on file Legal Sex Female 6:53 AM PST Gender Identity Not on file Sexual Orientation Not on file Last Filed Vital Signs Vital Sign Reading Time Taken Comments Blood Pressure 155/89 09/25/2025 8:23 AM PST Pulse 54 09/25/2025 8:23 AM PST Temperature - - Respiratory Rate - - Oxygen Saturation - - Inhaled Oxygen Concentration - - Weight - - Height - - Body Mass Index - - Plan of Treatment Health Maintenance Due Date Last Done Comments Personal Assessment of Total Health (PATH) 1960 Adult HIV Screen (1-time) 01/13/1975 Hep C Screening (1-time) 01/13/1978 Breast Cancer Screening: Mammogram 2000 Vaccine: Pneumococcal (1 of 1 - PCV) 01/13/2010 Vaccine: Shingles (1 of 2) 01/13/2010 FLU VACCINE (#1) 06/30/2025 10/28/2023, 08/04/2020 Vaccine: COVID-19 ( - season) 2025 09/03/2021, 02/20/2021, 01/23/2021 Blood Pressure Check 09/26/2025 09/25/2025 Vaccine: FGuK-Vmos-Qw (2 - T d or Tdap) 04/08/2032 04/08/2022 Vaccine: RSV (1 - 1-dose 75+ series) 01/13/2035 Insurance [facility] [employer] [facility] [employer] Advance Directives For more information, please contact: [phone] Documents on File Type Date Recorded Patient Motorcyles Final Inspector Expl anation Durable Power of [employer] Principal Care Teams Sql Report Writer Relationship Specialty Start Date End Date Amy Yancey ARNP [facility] [address] [place] [address] Family Medicine 04/13/20
--- OUTSIDE RECORDS SUMMARY | 2025-10-05 02:59 | EXTERNAL MEDICAL SUMMARY RPT | Continuity of Care Document ---
Author Organization [facility] MAIN OFFICE Address [address] [place] [address] Care Team Providers Care Occupational Rehabilitation Aide Name Role Phone GORDY NORRIS Primary Care Provider NAKIA Drake Boiler Tube Blower Unavailable Assessment Encounter Date Assessment Date Assessment LastModified by Organization Details LastModified Time 10/03/2025 10/03/2025 Assessment Stella presents with persistent nausea, vomiting, watery stools, and dehydration following recent hospital discharge <24 hours ago for recurrent small bowel obstruction. Note a 3 lb weight loss since last visit on 09/30/2025. Ongoing abdominal pain, cramping, vomiting and firmness concerning for recurrent obstruction. Differential includes gastroparesis, recurrent SBO, Crohn's flare, medication reaction, gastroenteritis . Not available 10/04/2025 11:31:49 Plan of Treatment Reminders Order Date Submit Date Provider Last Modified By Organization Details Last Modified Time Details Appointments ESTABLISH ED PATIENT 30 2024 01:00P M Gordy Norris NP Not available Not available Not available Lab None recorded. Referral None recorded. Procedures None recorded. Surgeries None recorded. Imaging None recorded. Medication Orders pantopraz ole 20 mg tablet,de layed release 2024 025 Not available 10/04/2025 11:31:27 Patient TargetsNo targets recorded. Patient Instructions Encounter Date Encounter Id Patient Instructions Last Modified By Organization Details Last Modified Time 10/03/2025 [id number] Pt and spouse salomno ve no access to the portal; please print and provide to pt and spouse. MAGNESIUM PLAN - Stop taking your oral magnesium: as you are not absorbing it and it may be contributing to your diarrhea - Decrease your pantoprazole to 20mg once daily (10/31 tablet) - You will start weekly magnesium infusions at the [facility] - You will need to go to the lab at the hospital 1 hour before your infusion time to have your magnesium level drawn. Your dose is based on your magnesium level. - Your first session is set for October 09 - The [facility] clinic will be calling to let you know what time your session is - Amy Yancey and I have discussed the need for you to have assisted IV access like a PICC SURGICAL PLAN - I spoke to Dr Arzola at [place] on 10/02/25 - She believes it would be best for you to be seen by the [facility]. She talked to surgeon Osman Stauffer from on 10/02/25 and he has agreed to consult; Dr Arzola said she was placing the referral to Dr Stauffer. - I sent Dr Stauffer your recent visit, ER and lab results - The phone number for the [facility] is [phone] or [phone] - Still need to reschedule follow up with Dr Diaz an ileoscopy to determine if part of your obstruction is related to a Crohn's flare - Please call [facility] on Monday To-Do - Continue minced, moist diet; avoid bulky soft foods like bread and pancakes for now - Ask [employer]vent[employer] for more support - Ask [employer] to teach Rashad how to answer Stella's phone and make a phone call from it - Please check your voicemails regularly as you may have messages from the surgery center, endocrinology, nephrology and gastroenterology. I've requested follow-up from all these specialties. - 911 for loss of consciousness, difficulty breathing, unable to eat or drink Not available 10/04/2025 11:26:07 Discussed the us e of audio recording for clinical note academic department chair via AI-assisted, HIPAA-compliant software with the patient, who gave verbal consent to proceed. 55 minutes was spent on the date of encounter. Reviewed pertinent history and previous diagnostics, performed medically appropriate examination and evaluation, provided counseling and education to patient and spouse, called and gave handoff to ED provider and updated Palliative Care CUSTOMER SERVICE OPERATOR, documented clinical information in the electronic health record, independently interpreted results and communicated results to the patient and spouse. This is excluding activities performed by clinical staff. Coded for complexity Not available 10/04/2025 11:20:03 Reason for Referral None Reported. Results Created Date Observation Date Name Description Value Unit Range Abnormal Flag Note LastModifiedBy Organization Detail LastModifiedTime 09/14/2009/14/2025 CT, head, w/o contr ast No observ ation record ed. [address] [facility] [address] [place], [address], 09/14/2025 13:14:59 09/14/2009/14/2025 CT, abdom en + pelvi s, w/ contr ast No observ ation record ed. [address] [facility] [address] [place], [address], 09/14/2025 13:20:40 09/21/20 25 09/19/2025 XR, chest , 2 view No observ ation record ed. [address] [facility] [address] [place], [address], 09/22/2025 10:30:11 09/26/2009/26/2025 CT, head, w/o contr ast No observ ation record ed. [address] [facility] [address] [place], [address], 09/28/2025 16:04:45 10/02/2010/02/2025 XR, chest , 2 view No observ ation record ed. [address] [facility] [address] [place], [address], 10/02/2025 12:23:16 10/02/2010/02/2025 CT, abdom en + pelvi s, w/ contr ast No observ ation record ed. [address] [facility] [address] [place], [address], 10/02/2025 11:17:11 Result Notes None recorded. Problems Name Problem SNOMED Code Status Onset Date Resolution Date Notes Provider Name and Address Organization Details Recorded Time Atrophic vaginiti s 63889508 Completed 08/15/2023 YOKASTA Washington [address] [place], [address], [facility] 3 12:48:22 Crohn's disease 92277022 Active [place], [address], [facility] 3 12:48:25 Ileostom y present 232771702 [place], [address], 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 3 12:50:58 Dyspnea 000991630 Completed 201908/15/2023 YOKASTA Washington [address] [place], [address], [facility] 3 12:48:52 Parastom al hernia 823681893 Completed 202110/30/2024 Surgery in December 2022 Amy Yancey NP, S [address] [place], [address], [facility] 5 09:46:32 Alcohol dependen ce 34760094 Active 2022 Amy Yancey NP, S [address] [place], [address], [facility] 3 08:43:04 History of seizure due to alcohol withdraw al 81529456794 4103 Active 2022 Witness tonic clonic sz in ED 06/2023 Amy Yancey NP, S [address] [place], [address], [facility] 3 08:43:45 Nodule of skin of foot 411790453 Completed 202210/30/2024 Amy Yancey NP, S [address] [place], [address], [facility] 5 09:46:38 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 692263034 [facility] 13:54:25 Dependen t edema 374437368 Completed 202310/30/2024 Amy Yancey NP, S [address] [place], [address], [facility] 5 09:46:25 [facility] l hyperten elva 81901175 [facility] 4 19:25:02 Hyponatr emia 83514956 Active 2023 Amy Yancey NP, S [address] [place], [address], [facility] 5 09:46:14 Hyperkal emia 82218331 Active 2023 Amy Yancey NP, S [address] [place], [address], [facility] 5 09:46:20 Cellulit is of right lower limb 57076711060 468069 Active 2024 YOKASTA Washington [address] [place], [address], [facility] 5 16:40:46 Sepsis 32196077 Completed 202401/30/2025 YOKASTA Washington [address] [place], [address], [facility] 5 17:02:30 Hypovole kiya shock 87818561 Active 2024 YOKASTA Washington [address] [place], [address], [facility] 17:02:33 Notes:Some problems listed i n Documents: #[id number], #[id number] could not be added to this patient's chart. Please review these documents and add these problems to the patient's chart manually as needed. Problem Notes None recorded. Procedures Surgical History Date Name Laterality Status Provider Name and Address Organization Details Recorded Time 12/27/19 23 repair of parastomal hernia completed Amy Yancey NP, S [address] [place] [address], [phone], [facility] 12/31/2022 08:40:56 10/14/20 22 endoscopy of ileum completed Amy Yancey NP, S [address] [place] [address], [address], [facility] 10/24/2022 11:49:50 01/04/20 22 endoscopy of ileum completed Amy Yancey NP, S [address] [place] [address], [address], [facility] 01/04/2022 13:21:16 07/11/20 20 video assisted thoracoscopy completed Amy Yancey NP, S [address] [place] [address], [address], [facility] 08/04/2020 17:25:19 06/30/20 20 limited thoracotomy completed Amy Yancey NP, S [address] [place] [address], [address], [facility] 12/21/2021 17:53:24 decompression of spinal cord completed Amy Yancey NP, S [address] [place] [address], [address], [facility] 10/16/2023 08:39:41 Imaging Results None recorded. Procedure Notes None recorded. Medical Equipment None Reported. Allergies Allergen ID Allergen Name Allergen Category Reaction Reaction Severity Criticality Documentation Date Start Date Code Code System Note Provider Name and Address Organization Details Recorded Time 12998 sulfameth oxazole medicatio n nausea photosens itivity mild mild low 08/15/20232021 20556 RxNorm sammieshady .ok to take but signi fican t side effec ts Autumn Jasmin , [employer] [address] [place], [address], [facility] 3 12:57:30 85205 losartan medicatio n Not available Not available Not available 12/18/2024 42224 RxNorm Contr aindi cated d/t RTA4 GORDY HILLIARDBO, [facility] [address] [place], [address], [facility] 5 16:08:54 71553 methocarb miguel angel medicatio n hallucina tions Not available low 12/18/2024 6845 RxNorm GORDY HILLIARDBO, [employer] [address] [place], [address], [facility] 5 16:09:48 80329 vancomyci n medicatio n anaphylax is Not available high 12/18/20242022 83961 RxNorm GORDY HILLIARDDIANA [employer] [address] [place], [address], [facility] 5 16:10:17 23270 gabapenti n medicatio n other Not available Not available 09/14/20252024 40049 RxNorm sedat ion Not Available [facility] - External Data Service - prod 5 13:16:21 27367 sulfameth oxazole / trimethop rim medicatio n nausea photosens itivity Not available Not available low 09/14/20252019 53962 RxNorm Not Available [facility] - External Data Service - prod 5 13:16:21 18727 penicilli n G Not available Not available Not available high 09/14/20252021 7980 RxNorm Not Available [facility]la - External Data Service - prod 5 13:26:20 4783 Product containin g penicilli n (product) medicatio n anaphylax is severe Not available 04/08/2020 18838 8001 SNOMED Ruchi Luper [facility] 0 16:35:49 4784 Bactrim medicatio n Not available Not available Not available 04/08/2020 14874 9 RxNorm Ruchi Phillips [facility] 0 16:36:15 4785 ciproflox acin medicatio n dizziness nausea palpitati ons Not available mild Not available high 04/08/20202024 2551 RxNorm two separ ate react ions: 0, 5 GORDY JR, [facility] [address] [place], [address], [facility] 5 14:52:35 Medications Name Sig Start Date Stop Date Status Note LastModified by Organization Details LastModified Time losartan 50 mg tablet Take 0.5 tablets every day by oral route. 10/15 completed Not Available Not Available Not Available furosemid e 40 mg tablet take 1 tablet by mouth once daily 06/13 completed Not Available Not Available Not Available Miralax 17 gram/dose oral powder Take 1/2 to 1 capful once daily for consiste nt ostomy output 2024 active Not Available Not Available Not Avai lable methocarb miguel angel 500 mg tablet take 1 tablet by mouth three times a day NEEDED FOR PAIN and muscle spasm 05/29 completed Not Available Not Available Not Available terbinafi ne HCl 1 % topical cream Apply between the toes and to surround ing affected areas of feet once daily by topical route until symptoms resolve 2024 active Not Available Not Available Not Avai lable hydralazi ne 10 mg tablet take 1 tablet by mouth twice a day 05/29 completed Not Available Not Available Not Available prednison e 10 mg tablet take 6 tablets by mouth once daily for 4 days then 4 tablets coleen... (REFER TO PRESCRIP TION NOTES). 01/27 completed Not Available Not Available Not Available doxycycli ne hyclate 100 mg capsule take 1 capsule by mouth twice a day for 5 days 08/01 completed Not Available Not Available Not Available cefuroxim e axetil 250 mg tablet take 1 tablet by mouth twice a day 06/02 completed Not Available Not Available Not Available lidocaine 4 % topical patch Apply to skin for 12 hours then remove for 12 hours. 01/17 completed Not Available Not Available Not Available clindamyc in HCl 300 mg capsule take 1 capsule by mouth three times a day for 7 days 03/07 completed Not Available Not Available Not Available Vitamin C 500 mg tablet Take 1 tablet every day by oral route. 01/17 completed Not Available Not Available Not Available loperamid e 2 mg capsule take 1 capsule by mouth three times a day if needed for diarrhea 05/29 completed Not Available Not Available Not Available cetirizin e 10 mg tablet Take 1 tablet every day by oral route as needed for 30 days. 09/16 completed Not Available Not Available Not Available doxazosin 1 mg tablet take 1 tablet by mouth at bedtime 2024 active Not Available Not Available Not Avai lable azithromy vj 250 mg tablet TAKE 2 TABLETS BY MOUTH TODAY, THEN TAKE 1 TABLET DAILY FOR 4 DAYS DIRECTED 09/16 completed Not Available Not Available Not Available ofloxacin 0.3 % eye drops instill 1 drop INTO AFFECTED EYE(S) four times a day for 7 days 07/04 completed Not Available Not Available Not Available citalopra m 10 mg tablet Take 1 tablet every day by oral route. 12/20 completed Did not start taking Not Available Not Available Not Available hydrocodo ne 5 mg-acetam inophen 325 mg tablet Take 1 tablet every 6 hours by oral route as needed for 30 days. 2024 active Not Available Not Available Not Avai lable prednison e 20 mg tablet take 2 tablets by mouth once daily with food 07/04 completed Not Available Not Available Not Available metronida zole 250 mg tablet take 1 tablet by mouth three times a day 07/21 completed Not Available Not Available Not Available moxifloxa vj 400 mg tablet TAKE 1 TABLET BY MOUTH EVERY DAY FOR 7 DAYS 09/16 completed Not Available Not Available Not Available clindamyc in HCl 150 mg capsule take 1 capsule by mouth three times a day for 7 days 03/07 completed Not Available Not Available Not Available thiamine HCl (vitamin B1) 100 mg tablet Take 1 tablet every day by oral route for 90 days. 2024 active Not Available Not Available Not Avai lable metronida zole 500 mg tablet take 1 tablet by mouth every 8 hours for 7 days 06/02 completed Not Available Not Available Not Available azathiopr ine 50 mg tablet take 2 tablets by mouth once daily 07/21 completed Not Available Not Available Not Available melatonin 3 mg tablet Take 1 tablet every day by oral route as needed. 01/17 completed Not Available Not Available Not Available amlodipin e 5 mg tablet Take 1 tablet every day by oral route for 90 days, for BLOOD PRESSURE CONTROL. 2024 active Not Available Not Available Not Avai lable bacitraci n zinc 500 unit/gram topical ointment apply to affected area twice a day 07/04 completed Not Available Not Available Not Available ciproflox acin 500 mg tablet take 1 tablet by mouth twice a day 10/28 completed Not Available Not Available Not Available sulfameth oxazole 800 mg-trimet hoprim 160 mg tablet take 1 tablet by mouth twice a day 07/22 completed Not Available Not Available Not Available tramadol 50 mg tablet take 1 tablet by mouth once daily NEEDED FOR SEVERE PAIN 03/14 completed Not Available Not Available Not Available acetamino phen 500 mg tablet Take 2 tablets every 6 hours by oral route as needed. active 2-3 TIMES DAILY Not Available Not Available Not Available spironola ctone 25 mg tablet take 1 tablet by mouth once daily 07/04 completed Not Available Not Available Not Available carvedilo l 3.125 mg tablet take 1 tablet by mouth every morning for HEART RATE CONTROL 03/07 completed Not Available Not Available Not Available ondansetr on 8 mg disintegr ating tablet Place 1 tablet 3 times a day by translin gual route as needed. 11/22 completed Not Available Not Available Not Available levothyro xine 25 mcg tablet take 1 tablet by mouth every morning ON AN EMPTY STOMACH 09/30 completed Not Available Not Available Not Available pantopraz ole 20 mg tablet,de layed release Take 2 tablets every day by oral route. 2024 active Not Available Not Available Not Avai lable Aleve 220 mg tablet Take 2 tablets every 12 hours by oral route. 06/06 completed Not Available Not Available Not Available magnesium oxide 400 mg (241.3 mg magnesium ) tablet Take 1 tablet 3 times a day by oral route for 90 days. 10/01 completed Not Available Not Available Not Available benzonata te 100 mg capsule take 1 capsule by mouth three times a day if needed 01/27 completed Not Available Not Available Not Available Cartia XT 120 mg capsule,e xtended release TAKE 1 CAPSULE BY MOUTH ONCE DAILY active Not Available Not Available No t Available cephalexi n 500 mg capsule take 1 capsule by mouth four times a day for 5 days 01/30 completed Not Available Not Available Not Available pantopraz ole 40 mg tablet,de layed release take 1 tablet by mouth once daily active Not Available Not Available No t Available erythromy vj 5 mg/gram (0.5 %) eye ointment APPLY 1 CM RIBBON INTO THE LOWER CONJUNCT IVAL SAC(S) IN THE AFFEC... (REFER TO PRESCRIP TION NOTES). 08/01 completed Not Available Not Available Not Available nystatin 100,000 unit/gram topical cream APPLY TOPICALL Y TWICE A DAY active Not Available Not Available No t Available polymyxin B sulfate 10,000 unit-trim ethoprim 1 mg/mL eye drops 10/28 completed Not Available Not Available Not Available hydrocort isone 100 mg/60 mL enema 60 mL via stoma twice daily for 2 weeks 07/21 completed Not Available Not Available Not Available glucose 4 gram chewable tablet Take 3 tablets by mouth for blood glucose <70 2024 active Not Available Not Available Not Avai lable ibuprofen 200 mg tablet Take 2 tablets 4 times a day by oral route as needed. 06/06 completed Not Available Not Available Not Available magnesium 500 mg (as magnesium oxide) tablet Take 1 tablet twice a day by oral route for 90 days. 10/03 completed Not Available Not Available Not Available gabapenti n 300 mg capsule take 1 capsule by mouth at bedtime 10/28 completed Not Available Not Available Not Available sertralin e 25 mg tablet TAKE 1 TABLET BY MOUTH AT BEDTIME FOR 7 DAYS THEN INCREASE TO 2 TABLETS IF TOLERATI NG active Not Available Not Available No t Available mupirocin 2 % topical ointment apply to affected area twice a day active Not Available Not Available No t Available gabapenti n 100 mg capsule take 1 capsule by mouth three times a day as directed 10/28 completed Not Available Not Available Not Available ergocalci ferol (vitamin D2) 1,250 mcg (50,000 unit) capsule take 1 capsule by mouth once daily 08/15 completed Not Available Not Available Not Available lorazepam 1 mg tablet take 1 tablet by mouth once daily if needed 08/15 completed for ETOH withdraw al Not Available Not Available Not Available cefuroxim e axetil 500 mg tablet TAKE 1 TABLET BY MOUTH TWICE A DAY FOR 7 DAYS 09/16 completed Not Available Not Available Not Available albuterol sulfate HFA 90 mcg/actua tion aerosol inhaler INHALE 2 PUFFS BY MOUTH EVERY 4 HOURS WHILE AWAKE. OKAY TO USE AD... (REFER TO PRESCRIP TION NOTES). 08/01 completed Not Available Not Available Not Available ketoconaz ole 2 % topical cream APPLY TO AFFECTED AREA TWICE A DAY 07/25 completed Not Available Not Available Not Available ondansetr on 4 mg disintegr ating tablet dissolve 1 tablet ON TONGUE every 6 hours if needed for nausea OR vomiting 05/29 completed Not Available Not Available Not Available losartan 100 mg tablet Take 1 tablet every day by oral route. 08/21 completed Not Available Not Available Not Available sertralin e 50 mg tablet TAKE 1 TABLET BY MOUTH EVERY DAY active Not Available Not Available No t Available Cipro 500 mg/5 mL oral suspensio n take 2 & 1/2 MILLILIT ERS by mouth every 12 hours for 5 days 08/01 completed Not Available Not Available Not Available dicyclomi ne 10 mg capsule TAKE 1 CAPSULE BY MOUTH FOUR TIMES DAILY NEEDED FOR ABDOMINA L PAIN 09/16 completed 1 week course Not Available Not Available Not Available magnesium 250 mg (as magnesium oxide) tablet Take 1 tablet twice a day by oral route as directed . 01/30 completed NATURE MADE Not Available Not Available Not Available oxycodone 5 mg tablet take 1/2 to 1 tablet by mouth every 6 hours if needed for pain 07/21 completed Not Available Not Available Not Available hydroxyzi ne pamoate 25 mg capsule take 1 capsule by mouth three times a day if needed for anxiety / PANIC 09/16 completed Not Available Not Available Not Available neomycin- polymyxin -hydrocor t 3.5 mg-10,000 unit/mL-1 % ear drops,j luis p instill 5 drops INTO AFFECTED EAR(S) four times a day for 1 week 01/27 completed Not Available Not Available Not Available Vitamin B1 (Thiamine ) 100 mg tablet Take 1 tablet every day by oral route. 04/11 completed Not Available Not Available Not Available Vitamin D3 25 mcg (1,000 unit) capsule Take 1 capsule every day by oral route for 90 days. 2024 active Not Available Not Available Not Avai lable cyclobenz aprine 5 mg tablet take 1 tablet by mouth three times a day 01/27 completed Not Available Not Available Not Available escitalop gisele 5 mg tablet take 1 tablet by mouth once daily 12/13 completed Not Available Not Available Not Available mirtazapi ne 7.5 mg tablet take 0.5 tablet by mouth at bedtime 05/11 completed Not Available Not Available Not Available nitrofura ntoin monohydra te/macroc rystals 100 mg capsule Take 1 capsule every 12 hours by oral route for 5 days. 10/28 completed Not Available Not Available Not Available chlorhexi dine gluconate 0.12 % mouthwash apply 1 millilit er WITH SYRINGE three times a day 01/27 completed Not Available Not Available Not Available losartan 100 mg-hydroc hlorothia zide 12.5 mg tablet take 1 tablet by mouth once daily 06/06 completed Not Available Not Available Not Available Aleve 1 TABLET PO BID 04/11 completed Not Available Not Available Not Available sodium chloride 1 g tablet - Take one tablet by nouth 3 times daily for 90 days 06/02 completed Not Available Not Available Not Available Vitamin D3 25 mcg (1000 units)Ta ke one tablet by mouth daily 04/11 completed Not Available Not Available Not Available multivita min active Not Available Not Available Not Available sodium chloride 1,000 mg soluble tablet Take 1 tablet twice a day by miscell. route for 90 days. 2024 active Not Available Not Available Not Avai lable Glutose-1 5 40 % oral gel Take one 15g tube as a single dose for low blood sugar; may repeat in 15 minutes if blood sugar remains less than 70. Once glucose returns to normal, a meal or snack should be consumed to prevent recurren ce of low blood sugar 2024 active Not Available Not Available Not Avai lable FeroSul 325 mg (65 mg iron) tablet take 1 tablet by mouth once daily with VITAMIN C TABLET 08/22 completed Not Available Not Available Not Available Stelara q 8 weeks 07/21 completed Not Available Not Available Not Available Desitin 40 % topical paste Apply to irritate d periosto mal skin twice a day 2024 active Not Available Not Available Not Avai lable copper 2 mg capsule - Take 4 capsules by mouth daily for one week, then 3 caps daily for one week, then 2 caps daily for one week, then 1 cap for one week then stop 01/30 completed Not Available Not Available Not Available Contour Next Test Strips Use to test blood sugar up to 4 times a day as needed 01/03 completed Not Available Not Available Not Available TRUEplus Lancets 33 gauge USE DIRECTED . active Not Available Not Available No t Available Ensure Active High Protein 1-2 per day active Not Available Not Available No t Available Emergen-C 1,000 mg oral effervesc ent powder pack Take 1 packet every day by oral route. 01/15 completed Not Available Not Available Not Available Veltassa 8.4 gram oral powder packet Take 1 packet every day by oral route for 30 days. 11/13 completed Not Available Not Available Not Available Allergy Relief (fluticas one) 50 mcg/actua tion nasal spray,j luis pension Apply 1 spray once daily to affected peristom al skin and let dry. Apply barrier cream afterwar ds 2024 active Not Available Not Available Not Avai lable Inflectra q 8 weeks 12/15 completed Not Available Not Available Not Available Phospho-T rin Neutral 250 mg tablet take 1 tablet by mouth twice a day after BREAKFAS T AND DINNER 07/04 completed Not Available Not Available Not Available Icy Hot Patch (lidocain e-menthol ) 4 %-1 % topical PRN FOR LOWER BACK 01/30 completed Not Available Not Available Not Available Lokelma 10 gram oral powder packet PLEASE SEE ATTACHED FOR DETAILED DIRECTIO NS active Not Available Not Available No t Available FreeStyle Beba 2 Sensor kit apply 1 SENSOR to back OF UPPER ARM REMOVE AND REPLACE every 14 days use active Not Available Not Available No t Available FreeStyle Beba 2 [place] USE CONTINUO USLY TO MONITOR BLOOD SUGARS DAILY active Not Available Not Available No t Available levothyro xine 37.5 mcg capsule Take 1 capsule every day by oral route for 90 days. 2024 active Not Available Not Available Not Avai lable tramadol 25 mg tablet Take 1-2 tablets every 4-6 hours as needed for breakthr ough sciatic pain 05/09 completed Not Available Not Available Not Available FreeStyle Beba 2 Plus Sensor device USE DIRECTED . ALTERNAT E LOCATION S EVERY 2 WEEKS. active Not Available Not Available No t Available Vitals Date Recorded Body height Heart rate Oxygen saturation Body temperature Body mass index (BMI) Body weight Systolic And Diastolic Provider Name and Address Organization Details Last Updated DateTime 5 143.51 cm 71 /min 97 % 98.4 [degF] 19.5 kg/m2 12756.2 8 g 98/65 mm[Hg] Quita Cazares [facility] 5 16:00:10 Social History Question Answer Notes LastModified by [employer] Details LastModified Time Tobacco Smoking Status Never Smoker Ruchi Phillips [facility] 04/08/2020 16:42:26 What Is Your Level Of Caffeine Consumption? Moderate Information not available 04/08/2020 How Many Children Do You Have? 2 Information not available 04/08/2020 Sex: Unknown Functional Status Question Answer Note LastModified by [employer] Details LastModified Time What is your level of alcohol consumption? Moderate 2 months sober - her and [place] Information not available 08/15/2023 Are you currently employed? 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 Moderate Information not available 04/08/2020 Mental Status None recorded. Family History Nothing Reported Notes:Mother: Breast cancer, dementia Father: age 88, health status unknown Brother: Crohn's disease Sister: Dalia healthy Sister: Lotus healthy Medical History No medical history recorded. Gynecological HistoryNo gynecological history recorded. Obstetrics History GPAL:G 0 P 0 0 0 0 Immunizations Vaccine Type Date Status Note Provider Nam e and Address Organization Details Recorded Time Influenza, split virus, quadrivalent, PF 08/04/2020 completed YOKASTA [place] [address] [place], [address], [facility] 08/15/2023 12:57:56 Past Encounters Encounter ID Performer Location Encounter Start Date Encounter Closed Date Diagnosis/Indication Diagnosis SNOMED-CT Code Diagnosis ICD10 Code Diagnosis IMO Codes Diagnosis Note [id number] YOKASTA SAUCEDA [facility] [address] [place] [address] 09/05/2025 15:53:40 09/10/2025 16:24:48 Preoperative procedure 087514450 Z01.818 [id number] - completed preadmit visit with [facility] recently- was supposed to get labs and CXR but left without completing - ordered today to be done through [facility], cc'd to Colorectal surgery- pt called to notify surgeon's office of this new plan Partial ob struction of intestine 5350930908 5438870 K56.600 [id number] - intermitte nt obstructio n, now s/p several ED visits for symptoms- CT 08/28/24: Consolidat ion and tree-in-bu d pattern in lower lungs, dilated loops of terminal ileumand wall thickening within parastomal hernia- Previously scheduled ileoscopy with Dr Diaz was cancelled since pt had pain, N/V at the time, needsto be reschedule d- Continue daily MiraLAX and dicyclomin e for cramping- Discussed potential for dicyclomin e to cause somnolence in conjunctio n with other meds- Discussed importance of consistent MiraLAX use to prevent recurrent obstructio n.- preop labs and CXR as above- Continue current regimen until surgery, scheduled for 09/29 for robotic parastomal hernia repair Community acquired pneumonia 999441452 J18.9 [id number] - completed recent antbx course, stable and well appearing today- 08/28 CT showed tree and bud formations to bilateral lower lungs- monitor carefully, at risk for aspiration PNA if obstructed - Discussed deep breathing exercises and chest percussion to help clear secretions .- Follow-up: Review chest X-ray results when available. [id number] GORDY NORRIS, [facility] [address] [place] [phone] 09/16/2025 12:46:24 09/18/2025 12:03:59 Hypomagnesemia 175207551 E83.42 9931 - Mg 1.3 at admit- continue magnesium oxide 400mg BID once daily- check mg with next routine labs Lymphocytopenia 31615274 D72.810 13619 - WBC 4.6L, lymphocyte s 0.4L in ED- recall she did present with lymphopeni a when septic earlier in 2024- recheck Altered mental status 41 3905640 R41.82 [id number] - cause not yet determined , most c/w anticholin ergic effects of medication s- still not at baseline today- concurrent with leukopenia , hypomagnes emia, subclinica l hypothyroi dism, isolated lipase elevationi n ED- no UTI; neg UA- no acute intracrani al process - normal CT head, no MRI done- no acute GI process or re-obstruc tion of ileostomy - normal CT abd/pelvis w contrast pass through- completed review of all medication s today; three anticholin ergics on med list: cetirizine ,dicyclomi ne, hydroxyzin e --> all discontinu ed today- dicyclomin e was only a 1 week course, completed 08/23/25; unclear if every took hydroxyzin e at all;also unclear if taking cetirizine daily- recent course of triple oral antbx tx completed at end of July (moxifloxa vj, cefuroxime ,azithromy vj) for PNA- query gut dysbiosis post-antbx and/or hyperammon emia: no ammonia level in ED notes- consolidat ion still seen in lungs on CXR though improved from prior per ED note, always concerning for sepsis-rel ated mental status changes (note she was previously leukopenic when fully septicearl ier this year)- Rashad will bring list by of all the meds she has taken in the last 2 weeks- Return and emergent precaution s reviewed- Consider repeat MRI head if no improvemen t- Follow up in 09/23 Renal tubu lar acidosis 5145997 N25.89 72800 - cause of electrolyt e imbalances as above History of pneumonia 161 209278 Z87.01 [id number] - completed three antbx courses in July for PNA: moxifloxac in, cefuroxime and azithro- I called pharmacy to confirm she filled these- recent CXR shows partial resolution from prior imaging- I called [facility] team and our plan is that I will see Stella on the and call them with anupdate on her PNA and general status for surgery.- repeat CXR between MondaySep 19 and MondaySep 22 [id number] YOKASTA SAUCEDA [facility] [address] [place] [phone] 09/23/2025 16:33:56 09/29/2025 09:59:56 Hypoglycemia 621200145 E16.2 28782 - Reported AM glucose 40 this morning- Urgent need for glucose monitoring - Called pharmacy today to arrange immediate purchase of CGM sensors ($75) regardless ofinsuranc e coverage. Pharmacist confirms active RX and these are in stock, they are preparing now.- Unable to get CGM covered due to lack of DM diagnosis- Continue bedtime snacks and glucose monitoring - atrophic pancreas noted on scans at - likely reflective of low reserve, metabolic dysregulat ion with chronic low intake- Recommend alarm/time r use for caregiver to allow rest while maintainin g safety checks- Labs today- Discussed severe risk of hypoglycem ia (glucose of 40), emergent precaution s- Continue current management with glucose tablets/gu mmies for low readings.- Saw endocrinol Damon kimbrough at [facility] on 06/04/25 - they do not think low BG meet clinicalhy poglycemia criteria since reported by CGM- Has had documented lows while inpt and as criteria for ED admission and treatment in past.- Previous CGM was consistent with our glucometer today in clinic within 8 points- Monitor and follow up in 1 week if not at [facility] for procedure Chronic pain 56597362 G8 9.29 296057 - Continue current hydrocodon e regimen as needed for pain- Unstable gait due to back pain, she is avoiding pain meds- Can try reducing dose by 1/2 as may be contributi ng to confusion- co-followe d by [facility]iative [facility] Operative procedure planned [id number] Z78.9 [id number] - Will communicat e with surgical team about patient's current status- Stella's preference is to proceed with surgery- Benefits of proceeding with surgery in my opinion outweigh risks of postponeme nt (risk ofrecurren t obstructio n)- Labs today, will export to [facility] Caregiver role strain 12 3746448 Z63.6 1464596 - Acknowledg ed 's significan t stress and sleep deprivatio n- Discussed importance of sleep and how this impacts anxiety levels- CGM should help reduce overnight monitoring burden to a degree- Consider respite care options post-surge ry History of pneumonia 161 576098 Z87.01 [id number] - completed three antbx courses in July for PNA: moxifloxac in, cefuroxime and azithro- I confirmed with pharmacy that all three were filled- CXR 09/19/2025 "no acute cardiopulm onary process"- I called [facility] team to leave a message, exported notes and labs Hypomagnesemia 527279373 E83.42 9931 - Mg 1.3 at admit, again on recheck 09/23- increase magnesium oxide 400mg to TID dosing- Rashad notified about low Mg and to increase dosing- could change to SlowMg for extended release may be preferable and less likely to result in diarrheaho wever she also has hyperchlor emia Altered mental status 41 6584422 R41.82 [id number] - cause not yet determined , most c/w anticholin ergic effects of medication s- improved cognition today, speech pattern back to normal- concurrent with leukopenia , hypomagnes emia, subclinica l hypothyroi dism, isolated lipase elevationi n ED- no UTI; neg UA- no acute intracrani al process - normal CT head, no MRI done- no acute GI process or re-obstruc tion of ileostomy - normal CT abd/pelvis w contrast pass through- completed review of all medication s today; three anticholin ergics on med list: cetirizine ,dicyclomi ne, hydroxyzin e --> all discontinu ed today- dicyclomin e was only a 1 week course, completed 08/23/25; unclear if every took hydroxyzin e at all;also unclear if taking cetirizine daily- recent course of triple oral antbx tx completed at end of July (moxifloxa vj, cefuroxime ,azithromy vj) for PNA- query gut dysbiosis post-antbx and/or hyperammon emia: no ammonia level in ED notes- consolidat ion still seen in lungs on CXR though improved from prior per ED note, always concerning for sepsis-rel ated mental status changes (note she was previously leukopenic when fully septicearl ier this year)- Rashad will bring list by of all the meds she has taken in the last 2 weeks- Return and emergent precaution s reviewed- Consider repeat MRI head if no improvemen t Weight decreased 9441134 01 R63.4 098657 - 2 lb loss since visit on 09/16/2025 - suspect food restrictio n with multiple electrolyt e abnormalit ies Chronic hyperkalemia 407 02976 E87.5 9813 - trend of increasing K+, likely related to fluid and PO intake restrictio n- Continue Lokelma 10mg BID- For potassium level >5.5, administer 1 additional 10mg dose of Lokelma- Stay off naproxen, ibuprofen, ELINA/ARBS- Continue serial CMPs Q3D, or Qweek when stable- Doretha [facility] completed per Palliative Care in June; [facility] requested new PA, sent verificati on ofCign[employer] coverage by fax per [place]- Continue to work with pharmacy to resolve medication access issues- Discussed importance of consistent medication administra tion- Follow up 1 week Subclinica l hypothyroidism 67636987 E03.8 48657 - levothyrox ine refilled- last T4 very low normal- consider increasing levothyrox ine though TSH is <12 after next check Renal tubu lar acidosis 9116712 N25.89 94259 - contributo r to electrolyt e imbalances as above- seen by [facility] 02/2025, unclear follow up- continue electrolyt e supplement ation Mg, K, Na- avoid ARBs/ACEis /MRAs [id number] GORDY NORRIS, [facility] [address] [place] [phone] 09/30/2025 15:56:14 10/02/2025 13:16:07 Hypomagnesemia 151837704 E83.42 9931 - Mg 1.2 to 1.4, most recently 1.3 on 09/29 despite increasing oral supplement ation- Possible causes:--> most likely daily Miralax use for prevention of SBO which may be reducing absorption ofsuppleme ntal magnesium, will discuss with Dr Arzola--> is taking PPI tx--> metabolic acidosis from RTA in setting of chronic malnutriti on though interestin gly her acidosisha s improved in the last while--> unlikely hypercalce alexandr as calcium has been normal to upper limits of normal--> refeeding syndrome-- > not taking other meds that promote Mg excretion- -> not hyperthyro id--> unlikely hyperaldos teronism, last checked in Nov 2024--> does not have DM1 or DM2 though does have atrophic pancreas - continue magnesium 500mg BID- could change to SlowMg for extended release may be preferable and less likely to result in diarrheaho wever contains Cl and her Cl has been elevated for some time Parastomal hernia 123471 007 K43.5 5816134 - stable, no recurrence s of pain/NV/ob struction- two previous admissions for abd pain consistent w/ trapped looped bowel withinlarg e parastomal hernia +/- delayed gastric emptying- Surgery originally scheduled for 09/29, cancelled for unclear reasons- Education on process and timeline, will let Rashad and Stella know when I talk to Dr Arzola- continues Miralax for prevention of recurrent SBO, likely culprit of low Mg- continues pantoprazo le per GI/surgery , consider dc'ing after discussion g- Moist minced diet, continue- I discussed with Stella that I wonder if she is restrictin g food and liquid intake as a way to manage her leaking ostomy. Rashad feels this pattern has emerged again. Our new goal is to focus on optimal nutrition and hydration as a bridge to surgery. Subclinica l hypothyroidism 69667046 E03.8 - TSH 7.69H to 10.2; T4 0.71 to undetectab le at ED- increase levothyrox ine to 37.5mcg PO QD AC- Rashad confirms he has been giving her levothyrox ine daily per usual- check TSH/T4 in 4-6 weeks Renal tubu lar acidosis 8195844 N25.89 89117 - contributo r to electrolyt e imbalances as above- seen by [facility] 02/2025, unclear follow up- message sent with this note to request scheduled follow-up- Rashad also given number for nephrology to call to schedule- continue electrolyt e supplement ation Mg, K; hospital told Rashad to stop Na replacemen t- typically she has hyponatrem ia, most recent hospital admission she had slightly elevated Na- confirmed she is still avoiding NSAIDS/ no ARBs/ACEis /MRAs Labile sys temic arterial hypertension [id number] 7455932 R09.89 8504723 - BP WNL today- Continue amlodipine 5mg, doxazosin 1mg at current doses- monitor Hypoglycemia 186045244 E 16.2 93745 - Reported AM glucose of 40 on 09/23/25 per fingerstic k- Stella started using CGM again; mostly correlatin g with glucometer - Continue bedtime snacks and glucose monitoring - atrophic pancreas noted on scans at , would appreciate insight from dionisio kimbrough- likely reflective of low reserve, metabolic dysregulat ion with chronic low intake- Discussed severe risk of hypoglycem ia (glucose of 40), emergent precaution s- Continue current management with glucose tablets/gu mmies for low readings.- Saw Damon wing at [facility] on 06/04/25 - they do not think low BG meet clinicalhy poglycemia criteria since reported by CGM- Exported copy of this visit note to Dionisio kimbrough in light of hypomagnes emia and recurrenth ypoglycemi a, request follow up, Rashad also given number to call to schedule- Has had documented lows while inpt and as criteria for ED admission and treatment in past.- Previous CGM was consistent with our glucometer today in clinic within 8 points- Monitor and follow up in 1 week History of alcohol use disorder 1487022644 F10.11 735447 - Abstinent from alcohol since 2022- check thiamine with next labs, currently replacing [id number] GORDY JR, [employer] [facility] [address] [place] [address] 10/03/2025 15:52:46 10/04/2025 11:35:12 Small bowel obstruction 628704485 K56.609 59619 - discharged from 10/02/25 following recurrent small bowel obstructio n- presents for TCM today with N/V and water output from ostomy, cramping pain and tenderdist ended hernia- concerning for gastropare sis vs recurrent SBO vs gastroente ritis- advised pt go to [facility] or [facility] to be closer to surgeons given risk of reoccurrin gobstructi on, disorienta tion and dehydratio n; Rashad declines, will go to ED- I called ED and gave handoff to Radhika, ED Provider; she called back a few minutes laterto advise that they were on surgical divert and pt should go to [facility] .- I called Rashad at their home number and Stella's cell phone and left messages. Rashad does not use [employer] phone and does not know how to answer Stella's phone.- Surgical plan as follows as of 10/02/25:-- > Dr Arzola spoke to Dr Stauffer at [facility] who said he would accept Stella as a pt--> Dr Arzola said she would refer Stella to Dr Stauffer--> I exported recent notes to Dr Stauffer Hypomagnesemia 301366723 E83.42 9931 - Mg 1.2 to 1.4, most recently 1.3 on 09/29 despite increasing oral supplement ation- stop oral magnesium replacemen t due to lack of absorption and poss contributo r to diarrhea- change pantoprazo le to 20mg from 40mg- Replacemen t plan:--> Stop PO magnesium replacemen t as not absorbing and may be contributi ng to diarrhea-- > Start once weekly IV MgSO4 infusions at [facility], orders entered by BARBARA Yancey, Palliative Care--> Pt will need to get Mg level drawn 1 hour prior to infusion time at [facility]- did not have time to review this plan due to need for pt to return to ED- could consider change to SlowMg for extended release may be preferable and less likely to result indiarrhea Weight decreased 8199892 01 R63.4 94296 - 3 lb loss since 10/01/25, compounded by recent N/V/water stools- suspect food restrictio n with multiple electrolyt e abnormalit ies Nausea and vomiting 1692 1999 R11.2 [id number] - hypotensiv e, appears dehydrated , mildly disoriente d to plan of care- ostomy with clear watery output- concerning for gastropare sis vs recurrent SBO vs gastroente ritis- not a candidate for typical outpt oral rehydratio n due to hyperkalem ia, hyperchlor emia andhypomag - advised pt go to [facility] or [facility] to be closer to surgeons given risk of reoccurrin gobstructi on, disorienta tion and dehydratio n; Rashad declines, will go to ED- I called ED and spoke to Radhika, ED Provider and gave handoff; she called back a few minutes laterto advise that they were on surgical divert and pt should go to [facility] .- I called Rashad at their home number and her cell phone and left messages. Emotional stress 5868882 09 R45.7 [id number] - Provided support and counseling regarding emotional distress and financial concerns- Encouraged Rashad to call [employer] and ask for specific support- Would be helpful for Rashad to learn to use Stella's phone so he can be contacted when in transit- Return to clinic or contact provider if symptoms worsen or new concerns arise- Discussed the possibilit y Stella may need care home care in order to provide respite for Rashad andconsist ency for Stella Crohn's disease 03692671 K50.912 [id number] - Query flaring, causing SBOs- Last saw alison Diaz on 06/27/25, ileoscopy scheduled but not completed as cancelled as Stella was in the hospital- not yet reschedule d, no recent f/u due to recent instabilit y- recurrent SBO may reflect Crohn's flare; per CUSTOMER SERVICE OPERATOR Naye this was prior pattern before her last surgery- ostomy output today is mostly water- visit note exported to Dr Diaz along with recent ED notes and imaging Alcohol dependence 96090 003 F10.20 2896197 - abstinent from alcohol since 2023 Goals Section Goal Description Progress Status Start Date LastModified by Organization Details LastModified Time Hyperten elva Time of diagnosis: 06/16/2024 t medications: amLODIPine 5 mg tablet, take 1 tablet by mouth once daily and Cartia XT 120 mg capsule extended release, take 1 capsule by mouth once dailyCurrent interventions: Take daily readings at homeSpecialist consultations: noneControlled/ uncontrolled: TBD None active 2023 Amy Covarrubias Information not available 10/25/2024 15:36:48 Crohn's Disease Time of diagnosis: 09/12/2024 nt medications: acetaminophen 500 mg tablet Take 2 tablets every 6 hours by oral route as needed.2-3 TIMES DAILY Aleve This medication cannot be associated with an active order type and can no longer be accelerated1 TABLET PO BIDgabapentin 100 mg capsule take 1 capsule by mouth three times a day as directed gabapentin 300 mg capsule take 1 capsule by mouth at bedtime Icy Hot Patch (lidocaine-ment hol) 4 %-1 % topical PRN FOR LOWER BACKCurrent interventions: Eat healthy mealsSpecialist consultations: noneControlled/ uncontrolled: TBD None active 2023 Amy Covarrubias Information not available 10/25/2024 16:13:31 Hyponatr emia Time of diagnosis: 07/22/2024 t medications: Magnesium 250 mg (as magnesium oxide) tablet, Take 1 tablet twice a day by oral route as directed, sodium chloride 1,000 mg soluble tablet, Take 2 tablets twice a day by miscell. route for 30 days., Current interventions: Eat a healthy dietSpecialist consultations: noneControlled/ uncontrolled: TBD None active 2024 Amy Covarrubias Information not available 10/30/2024 18:23:42 Hyperkal emia Interventions: Adhere to medication complianceMedic ations: Lokelma 10 gram oral powder packet Take 1 packet every day by oral route. None active 2024 Amy Covarrubias Information not available 12/03/2024 15:58:42 HTN Medications: amLODIPine 5 mg tablet, take 1 tablet by mouth once daily and Cartia XT 120 mg capsule extended release, take 1 capsule by mouth once daily Interventions: eat foods specifically for the diagnosis None active 2024 Amy Covarrubias Information not available 12/24/2024 15:57:08 Hyperkal emia Interventions: eat foods specifically for this diagnosis Medications: Lokelma 10 gram oral powder packet Take 1 packet every day by oral route. None active 2024 Amy Covarrubias Information not available 12/28/2024 22:54:17 Adhere to Medicati on Regimen Follows medication regimen as per care team recommendations . Encourage compliance and adherence to daily routine. no-change on-hold 2023 Amy Covarrubias Information not available 10/25/2024 15:29:30 Adheres to Diet "Follows prescribed or recommended diet: Dietary Approaches to Stop Hypertension (DASH) Diet. The DASH diet is easy to follow, delicious and varied. It has been proven to help lower your blood pressure. DASH Diet Resource: https://www.[employer]/nut rition/dash- t#benefits and https://www.nhl bi.nih.gov/educ ation/dash-eati ng-planFoods can help lower your high blood pressure. Eating skinless poultry and fish/seafood, whole grains, fruits, and vegetables. You can also try foods that are high in fiber, like oatmeal and beans, and unsaturated fats, like avocados, olive oil, and nuts.Avoid or limit foods that are high in saturated fat, red meat, sodium (salt) items with added sugar such as sugar-sweetened beverages. " no-change on-hold 2023 Amy Covarrubias Information not available 10/25/2024 15:29:33 Adhere to Exercise Follows a regular exercise regimen or instructed exercise plan as per care team recommendation( s). Instructions: Work up to 30 minutes of exercise 5 days per week. improving on-hold 2023 Amy Covarrubias Information not available 10/25/2024 15:29:36 Diet Adherenc e Follows prescribed or recommended diet None active 2024 Amy Covarrubias Information not available 01/29/2025 17:09:14 Blood Pressure Maintains blood pressure goal as defined by care team None active 2024 Amy Covarrubias Information not available 01/29/2025 17:09:14 Exercise Regularl y Follows a regular exercise regimen or instructed exercise plan as per care team recommendation( s) None active 2024 Amy Covarrubias Information not available 01/29/2025 17:09:14 Knowledg e of Disease or Conditio n Demonstrates understanding of disease(s) or condition(s) None active 2024 Amy Covarrubias Information not available 01/29/2025 17:16:11 Weight Oralia jean Exhibits stable weight with normal fluctuation None active 2024 Amy Covarrubias Information not available 01/29/2025 17:16:11 Diagnost ic Testing Completes diagnostic testing as per care team recommendation( s) None active 2024 Amy Covarrubias Information not available 01/29/2025 17:16:12 Medicati on Regimen Follows medication regimen as per care team recommendation( s) None active 2024 Amy Covarrubias Information not available 01/29/2025 17:16:12 Stress Manageme nt Reports effective management of stress None active 2024 Amy Covarrubias Information not available 01/29/2025 17:16:12 Quality of Life Reports satisfaction with quality of life None active 2024 Amy Covarrubias Information not available 01/29/2025 17:16:12 Follow-u p Appointm ent(s) Attends referral and/or follow-up appointment(s) as per care team recommendation( s) None active 2024 Amy Covarrubias Information not available 01/29/2025 17:16:12 Activiti es of Daily Living Performs activities of daily living independently or with minimal assistance None active 2024 Amy Covarrubias Information not available 01/29/2025 17:16:12 Diet Adherenc e Follows prescribed or recommended diet None active 2024 Amy Covarrubias Information not available 01/29/2025 17:16:12 Exercise Regularl y Follows a regular exercise regimen or instructed exercise plan as per care team recommendation( s) None active 2024 Amy Covarrubias Information not available 01/29/2025 17:16:12 Health Concerns Section Related Observation LastModified by Organization Detai ls LastModified Time None Recorded Concern Status LastModified by Organization Details LastModified Time Hearing loss Active Amy Covarrubias Not Available 10/2024 17:42:34 Essential hypertension Active Amy Covarrubias Not Available 12/24/2024 15:5 7:08 Alcohol dependence Active Rosey [place] Not Availab le 07/11/2024 21:26:46 Crohn's disease Active Amy Covarrubias Not Available 10/25/2024 16:13:31 Hyperkalemia Active Amy Covarrubias Not Available 10/2024 22:54:17 Parastomal hernia Active Amy Covarrubias Not Availabl e 10/25/2024 15:12:00 Dependent edema Active Amy Covarrubias Not Available 10/25/2024 15:12:08 Alkaline phosphatase above reference range Active Amy Covarrubias Not Available 15:12:16 Nodule of skin of foot Active Amy Covarrubias Not Available 10/25/2024 15:1 2:25 Ileostomy present Active Amy Covarrubias Not Availabl e 10/25/2024 15:09:08 History of seizure due to alcohol withdrawal Active Amy Covarrubias Not Available 10/25/2024 15:0 9:30 Menopausal syndrome Active Amy Covarrubias Not Availa ble 10/25/2024 15:11:40 Hyponatremia Active Amy Covarrubias Not Available 10/2024 18:23:42 Payers Encounter Date Sequence Insurance Name Policy Number Policy Jade Covered Member ID Jade Member ID Guarantor Name 10/03/2025 1 MEDICARE [place]: [place] Ana M Wynn [id number] Ana M Wynn 10/03/2025 2 [facility] [id number] Ana M Wynn [id number] Ana M Wynn Notes Date Note Type Note Provider Name and Address Organization Details Recorded Time 10/03/2025 text/html ROS as noted in the HPI Stella, 65, presents for TCM after hospital admission.Today she presents with nausea, vomiting, dehydration, and abdominal symptoms after recent hospital discharge. Hospital Course:12-3 to 12-4admit for abdominal pain, confirmed to be recurrent SBOGenSurg consulted, SBO cleared manuallyMg 1.3, given IV Mg replacement, unknown dose or frequency 1. Nausea and vomiting- started after being discharged from the hospital- Vomited throughout the night about six times- Rashad says she was given a dose of "something to clear her out" when she was discharged because she was having cramping- Not sure what this medicine was, says it was purple- She wonders if this is what made her feel sick- Focused ROS: No fever, no chills, no cough, no sore throat, no chest pain, no shortness ofbreath 2. Dehydration and inability to eat/drink- due to vomiting has not really had anything to eat or drink- only able to tolerate small sips of water- only had pudding today, small amount- Focused ROS: No dizziness, no syncope, no palpitations, no confusion 3. Emotional distress and psychosocial concerns- Frustration with delayed surgery and missed appointments, multiple ER visits- Emotional distress, feeling upset and groggy- Financial concerns due to frequent hospitalizations and accumulating medical bills- Rashad is visibly upset and stressed, "is worried about going back to hospital because he is so mad they discharged her" GORDY NORRIS, [facility] [address] [place], [address], [facility] 10/04/2025 11:35:11 OBGyn Episode No OBEpisode recorded.
--- OUTSIDE RECORDS SUMMARY | 2025-10-05 02:59 | EXTERNAL MEDICAL SUMMARY RPT | Encounter Summary ---
Author Organization [facility] Address [address] [place] [address] Care Team Providers Care Extension Service Specialist In Charge Name Role Phone Amy Yancey Unavailable [phone] Reason for Referral * Outpatient Service (Routine) - Authorized Specialty Diagnoses / Procedures Referred By Ambrose carter Referred To Contact Wound Care Diagnoses Presence of colostomy Parastomal hernia without obstruction or gangrene Procedures REF WOUND CARE - EXTERNAL DEBRIDEMENT, OPEN WOUND, ASSESSMENT, ONGOING CARE, PER SESSION, FIRST 20 SQ CM OR LESS Sabrina Atkins [facility] [address] [place] [address] Phone: tel: fax: [facility] [address] [place] [address] Phone: tel: Referral ID Status Reason Start Date Expiration Date Visits Requested Visits Authorized [id number] Authorized Itemized Services 05/05/2025 05/05/2026 999 [id number] Encounter Details Date Type Department Care Team (Late st Contact Info) Description 05/05/2025 Community Orders Non [facility] Provider Sabrina Atkins [facility] [address] [place] [address] Presence of colostomy (Primary Dx); Parastomal hernia without obstruction or [...] as of this encounter Visit Diagnoses Diagnosis Presence of colostomy- Primary Parastomal hernia without obstruction or gangrene Hernia of unspecified site of abdominal cavity without mention of obstruction or gangrene documented in this encounter Care Teams Extension Service Specialist In Charge Relationship Specialty Start Date End Date Amy Yancey ARNP [address] [address] Family Medicine 04/13/20 documented as of this encounter
--- OUTSIDE RECORDS SUMMARY | 2025-10-05 02:59 | EXTERNAL MEDICAL SUMMARY RPT | Encounter Summary ---
Author Organization [facility] Address [address] [place] [address] Care Team Providers Care Manager Solution Name Role Phone Amy Yancey Unavailable [phone] Reason for Referral * Outpatient Service (Routine) - Authorized Specialty Diagnoses / Procedures Referred By Ambrose carter Referred To Contact General Surgery Diagnoses Parastomal hernia without obstruction or gangrene Procedures REF GENERAL SURGERY - EXTERNAL OFFICE/OUTPATIENT ESTABLISHED MOD MDM 30 MIN [facility] [address] [place] [address] [address], [facility] [address] [address] [place] [address] Referral ID Status Reason Start Date Expiration Date Visits Requested Visits Authorized [id number] Authorized Evaluate and Treat-Surgery if Indicated 05/05/2025 05/05/2026 6 6 Encounter Details Date Type Department Care Team (Late st Contact Info) Description 05/05/2025 Community Orders Non [facility] Provider Jana Bernal [facility] [place] [address] [place] [address] Parastomal hernia without obstruction or gangrene (Primary [...] gangrene documented in this encounter Care Teams Manager Solution Relationship Specialty Start Date End Date Amy Yancey ARNP [address] [id number] Family Medicine 04/13/20 documented as of this encounter
--- OUTSIDE RECORDS SUMMARY | 2025-10-05 03:00 | EXTERNAL MEDICAL SUMMARY RPT | Encounter Summary ---
Author Organization [facility] Address [address] [place] [address] Care Team Providers Care Display Designer Name Role Phone Amy Yancey DAIRY BACTERIOLOGIST Unavailable [phone] Encounter Details Date Type Department Care Team (Late st Contact Info) Description 11/07/2023 [facility] Telephone Encounter [facility] Neurosurgery [address] [place] [phone] Unspecified Social History Tobacco Use Types Packs/Day Years Used Date Smoking Tobacco: Never Assessed Comments Unknown Sex and Gender Information Value Date Recorded Sex Assigned at Not on file Legal Sex Female 6:53 AM PST Gender Identity Not on file Sexual Orientation Not on file documented as of this encounter Miscellaneous Notes * Telephone Encounter - Alla Mckinney - 11/07/2023 10:42 AM PST Caller is requesting a call back from a nurse. Patient Name: Ana M Wynn Caller: [facility] Comments: Requesting notes to be faxed over to facility : , (Number) Ok to leave a detailed message: Yes Thank you, Alla Mckinney documented in this encounter Plan of Treatment Not on file documented as of this encounter Visit Diagnoses Not on filedocumented in this encounter Care Teams Display Designer Relationship Specialty Start Date End Date [facility] [address] [place] [address] Family Medicine 04/13/20 documented as of this encounter
--- OUTSIDE RECORDS SUMMARY | 2025-10-05 03:00 | EXTERNAL MEDICAL SUMMARY RPT | Encounter Summary ---
Author Organization [facility] Address [address] [place] [address] Phone Care Team Providers Care Stockbroker Name Role Phone Diamante YanceyMarii Primary Care Provider [phone] Reason for Visit * Surgery (Routine) - Closed Specialty Diagnoses / Procedures Referred By Ambrose t Referred To Contact Diagnoses Parastomal hernia without obstruction or gangrene incarcerated parastomal hernia Parastomal hernia without obstruction or gangrene [K43.5] Procedures RPR PARASTOMAL HRNA NCRC8/STRANGULATED HERNIA INCISIONAL LAPAROSCOPIC REPAIR Scott Sweeney MD [address] [facility] [address] [place] [address] Phone: tel: fax: [facility] [address] [address] fax: Referral ID Status Reason Start Date Expiration Date Visits Re quested Visits Authorized [id number] Closed 11/18/2022 11/18/2023 1 1 Encounter Details Date Type Department Care Team (Latest Contact Info) Description 12/27/2022 12:30 PM [facility] Hospital Encounter [facility] [address] [place] [address] Parastomal hernia without obstruction or gangrene Social History Tobacco Use Types Packs/Day Years Used Date Smoking Tobacco: Never Smokeless Tobacco: Never Alcohol Use Standard Drinks/Week Comments Not Currently 0 (1 standard drink = 0.6 oz pur e alcohol) occ Comments Unknown Sex and Gender Information Value Date Recorded Sex Assigned at Not on file Legal Sex Female 1:38 PM PDT Gender Identity Not on file Sexual Orientation Not on file documented as of this encounter Plan of Treatment Not on file documented as of this encounter Visit Diagnoses Not on filedocumented in this encounter Care Teams Stockbroker Relationship Specialty Start Date End Date Diamante Yancey [address] [place] [address] PCP - General 04/13/20 03/16/25 documented as of this encounter
--- OUTSIDE RECORDS SUMMARY | 2025-10-05 03:00 | EXTERNAL MEDICAL SUMMARY RPT | Clinical Summary ---
Author Organization [facility] Address [address] [place] [address] Phone Care Team Providers Care Crabbing Machine Operator Name Role Phone Wendy Petit Primary Care Provider [phone] Radhika Jose MD Unavailable [phone] Allergies Active Allergy Reactions Criticality Noted Date Comments Ciprofloxacin Nausea Only Low 07/11/2020 Penicillins Anaphylaxis High 07/11/2020 Shortness of breath and swelling of joints Sulfamethoxazole-Trimethopri m Nausea Only Low 07/11/2020 Medications azithromycin 250 MG tablet take 2 tablets by mouth on day 1 then 1 tablet by mouth once daily for 4 days 10/24/20 22 Active dicyclomine 10 MG capsule dicyclomine 10 mg capsule take 1 capsule every 6 to 8 hours if needed 08/24/20 22 Active amLODIPine (Norvasc) 5 MG tab Take 1 tablet by mouth daily. 11/29/19 24 Active levothyroxine (Synthroid) 25 MCG tab Take 25 mcg by mouth daily. 02/26/20 25 Active Sodium Zirconium Cyclosilicate (LOKELMA) 10 g packet Take 1 gram by mouth 2 times daily. 10/30/19 25 Active sodium chloride 1 g tablet Take 1 tablet by mouth 2 times daily. Active Thiamine HCl (VITAMIN B-1) 250 MG tablet Take 1 tablet by mouth daily. Active carvedilol (Coreg) 3.125 MG tablet Take 1 tablet by mouth every morning. 02/05/20 25 Active Cholecalciferol (VITAMIN D3) 25 MCG (1000 UT) tablet Take 1 tablet by mouth daily. Active Magnesium 250 MG tablet Take 1 tablet by mouth daily. Active magnesium oxide 400 MG tablet Take 1 tablet by mouth daily. Active acetaminophen (Tylenol) 500 MG tablet Take 2 tablets by mouth every 8 hours. 10/25/20 Active albuterol HFA (Proventil, Ventolin, ProAir) 90 MCG/ACT inhaler Take 2 puffs by inhalation every 4 to 6 hours as needed. Active cetirizine 10 MG tablet Take 1 tablet by mouth every day as needed. 03/21/20 Active Nutritional Supplements (ENSURE ACTIVE HIGH PROTEIN PO) Take 1-2 Bottles by mouth daily. Active Fluticasone Propionate 50 MCG/ACT nasal suspension Inhale 2 sprays into each nostril daily. 03/21/20 25 Active Continuous Glucose Management Department Chair (FREESTYLE SHIVAM 2 READER) device USE CONTINUOUSLY TO MONITOR BLOOD SUGARS DAILY Active Continuous Glucose Sensor (FREESTYLE SHIVAM 2 SENSOR) miscellaneous 1 each by intradermal route every 14 days. 05/28/20 Active glucose 4 g chewable tablet Chew and swallow 4 g daily. 4 GRAM CHEWABLE TABLET 04/08/20 25 Active glucose (GLUCOSE 15) 40 % gel Take 15 g by mouth as needed. Take one 15 g tube as a single dose for low blood sugar; may repeat in 15 minutes if blood sugar remains less than 70. Once glucose returns to normal, a meal or snack should be consumed to prevent recurrence of low blood sugar. 01/02/20 25 Active HYDROcodone-aceta minophen 5-325 MG tablet tab Take 1 tablet by mouth every 6 hours as needed. Active hydrOXYzine Pamoate 25 MG capsule take 1 capsule by mouth three times a day if needed for anxiety / PANIC Active Sodium Zirconium Cyclosilicate (LOKELMA) 5 g packet Take 1 packet by mouth. 03/03/20 25 Active Active Problems Problem Noted Date Diagnosed Date Menopausal syndrome 06/04/2025 Moderate protein-calorie malnutrition 12/02/2024 Ileostomy present 11/05/2024 Constipation 10/25/2023 Wernicke encephalopathy 10/25/2023 Essential hypertension 10/25/2023 Hypoglycemia 10/25/2023 Alcohol dependence 07/03/2023 Acquired absence of other sp ecified parts of digestive tract 02/15/2022 Crohn's disease of both smal l and large intestine without complication 07/11/2020 Social History Tobacco Use Types Packs/Day Years Used Date Smoking Tobacco: Never Smokeless Tobacco: Never Tobacco Cessation:Counseling Given: Not Answered Alcohol Use Standard Drinks/Week Comments Not Currently 0 (1 standard drink = 0.6 oz pur e alcohol) occ Comments Unknown Sex and Gender Information Value Date Recorded Sex Assigned at Not on file Legal Sex Female 1:38 PM PDT Gender Identity Not on file Sexual Orientation Not on file Last Filed Vital Signs Vital Sign Reading Time Taken Comments Blood Pressure 161/100 06/04/2025 12:46 PM PDT Pulse 69 06/04/2025 12:46 PM PDT Temperature - - Respiratory Rate 16 11/04/2024 2:46 PM PST Oxygen Saturation - - Inhaled Oxygen Concentration - - Weight 43.1 kg (95 lb) 06/04/2025 12:46 PM PDT Height 147.3 cm (4' 10") 06/04/2025 12:46 PM PDT Body Mass Index 19.86 06/04/2025 12:46 PM PDT Plan of Treatment Health Maintenance Due Date Last Done Comments Mammogram 1960 Hepatitis C Screening 01/13/1978 Pneumococcal Vaccine age 50+ (1 of 2 - PCV) 01/13/1979 CT Colonography 01/13/2005 Colonoscopy 01/13/2005 Colorectal Cancer Screening 01/13/2005 FIT (Fecal Blood Test) 01/13/2005 FIT-DNA (Cologuard) 01/13/2005 Flex Sigmoidoscopy 01/13/2005 Zoster Vaccine (1 of 2) 01/13/2010 Annual Dementia Screening 01/13/2025 Bone Density Scan Screening 01/13/2025 Depression Screening 01/13/2025 Fall Risk Assessment 01/13/2025 Vision Screening (Medicare Part B) 03/30/2025 COVID-19 Vaccine (2024- season) 2025 09/03/2021, 02/20/2021, 01/23/2021 Influenza Vaccine (#1) 2025 10/28/2023, 2019 Lipid Panel 12/03/2029 12/03/2024, 12/03/2024 DTaP/Td/Tdap Vaccines (2 - Td or Tdap) 04/08/2032 04/08/2022 RSV Vaccine (1 - 1-dose 75+ series) 01/13/2035 HIV Screening Completed 01/02/2022, 06/30, 07/13/2020, Additional history exists HPV Vaccines Aged Out No longer eligi ble based on patient's age to complete this topic Hepatitis B Vaccines Aged Out No long er eligible based on patient's age to complete this topic Insurance [facility] [place] [address] MEDICARE Care Teams Crabbing Machine Operator Relationship Specialty Start Date End Date Wendy Petit [address] [place] [phone] PCP - General Internal Medicine 03/17/25 Radhika Jose MD [address] [address] Endocrinology 06/04/25
--- OUTSIDE RECORDS SUMMARY | 2025-10-05 03:00 | EXTERNAL MEDICAL SUMMARY RPT | Data Portability ---
Author Organization [facility] MAIN OFFICE Address [address] [place] [address] Care Team Providers Care Grocery Department Manager Name Role Phone WENDY NORRIS Primary Care Provider NAKIA Drake Operations Support Manager Unavailable Assessment Encounter Date Assessment Date Assessment LastModified by Organization Details LastModified Time 09/05/2025 09/05/2025 [age]-year-old female with history of partial bowel obstruction, recent pneumonia, and hyperkalemia, presenting for follow-up prior to scheduled colorectal surgery. Not available 09/05/2025 17:05:21 09/16/2025 09/16/2025 [age]-year-old female with history of Crohn's disease presenting for follow-up after hospitalization for acute confusion. Mental status improved but not at baseline. Differential includes delayed medication clearance, medication interaction; less likely neurodegenerative process given acute onset and partial improvement. Not available 09/17/2025 13:39:43 09/23/2025 09/23/2025 Assessment: Stella presents for follow up with recurrence non-diabetic hypoglycemia, hypomagnesemia, pain management, and medication confusion. Patient has upcoming abdominal surgery with several risk factors including hypoglycemia, chronic electrolyte abnormalities, recent altered mental status changes and mobility issues. Addendum: MA notified Rashad of low Mg and plan to increase. He stated that she is weak and less alert today so they are going to the ER. Not available 09/24/2025 13:07:50 09/30/2025 09/30/2025 Today Stella prese nts with persistent pattern of hypomagnesemia, subclinical hypothyroidism that has now become overt hypothyroidism, recent episodes of altered mental status and hypoglycemia (not always concurrently). 3 recent ED visits for weakness, low Mg and sleepiness. I think daily Miralax for prevention of recurrent SBO is most likely contributing to dehydration and low Mg absorption in setting of restricted PO intake and chronic malnutrition. I suspect - and we discussed - that she has been restricting PO intake to decrease the amount of leakage from her ostomy device. Surgical repair of parastomal hernia was canceled for unclear reasons. Not available 10/01/2025 12:41:43 10/03/2025 10/03/2025 Assessment Stella presents with persistent nausea, vomiting, watery stools, and dehydration following recent hospital discharge <24 hours ago for recurrent small bowel obstruction. Note a 3 lb weight loss since last visit on 09/30/2025. Ongoing abdominal pain, cramping, vomiting and firmness concerning for recurrent obstruction. Differential includes gastroparesis, recurrent SBO, Crohn's flare, medication reaction, gastroenteritis. Not available 10/04/2025 11:31:49 Plan of Treatment Reminders Order Date Submit Date Provider Last Modified By Organization Details Last Modified Time Details Appointments [facility] PATIENT 30 2024 01:00P Chava Norris NP Not available Not available Not available Lab TSH + free T4, serum 2024 025 [facility] (Lab), [address] [place] [address], [id number], 10/01/2025 12:20:10 magnesiu m, serum or plasma 2024 025 [facility] (Lab), [address] [place] [address], [id number], 09/30/2025 16:35:22 magnesiu m, serum or plasma - This is an add-on order for labs drawn 09/29/25, thanks so much! 2024 025 [facility] (Lab), [address] [place] [address], [id number], 09/30/2025 18:10:34 vitamin B1 (thiamin e), blood 2024 025 [facility] (Lab), [address] [place] [address], [id number], 10/01/2025 12:45:26 magnesiu m, serum or plasma - Add on thanks 2024 025 [facility] (Lab), [address] [place] [address], [id number], 09/24/2025 12:27:41 magnesiu m, serum or plasma 2024 025 [facility] (Lab), [address] [place] [address], [id number], 09/17/2025 01:32:06 CBC w/ auto diff 2024 025 [facility] (Lab), [address] [place] [address], [id number], 09/17/2025 17:43:30 ammonia, blood 2024 025 [facility] (Lab), [address] [place] [address], [id number], 09/17/2025 23:18:47 TSH, serum, reflex free T4 2024 025 [facility] (Lab), [address] [place] [address], [id number], 09/18/2025 13:03:47 CBC w/ auto diff 2024 025 [facility] (Lab), [address] [place] [address], [id number], 09/26/2025 11:19:58 iron + TIBC + ferritin , serum 2024 025 [facility] (Lab), [address] [place] [address], [id number], 09/05/2025 16:23:21 magnesiu m, serum or plasma 2024 [facility] (Lab), [address] [place] [address], [id number], 09/05/2025 16:23:21 TSH, serum, reflex free T4 2024 [facility] (Lab), [address] [place] [address], [id number], 09/05/2025 16:23:21 Referral None recorded . Procedures None recorded . Surgeries None recorded . Imaging XR, chest, [address] [facility], [address] [place] [address], [id number], 09/18/2025 17:03:42 XR, chest, 2 view 2024 [facility], [address] [place] [address], [id number], 09/10/2025 16:24:48 Medication Orders pantopra zole 20 mg tablet,d elayed release 2024 Not available 10/04/2025 11:31:27 levothyr oxine 37.5 mcg capsule 2024 [facility]/Pharmacy #[id number] - Formerly [facility] #[id number], [address], [place], [phone], 09/30/2025 16:31:56 magnesiu m 500 mg (as magnesiu m oxide) tablet 2024 [facility]/Pharmacy #[id number] - Formerly [facility] #[id number], [address], [place], [phone], 10/03/2025 15:18:11 doxazosi n 1 mg tablet 2024 025 [id number], [address] [place], [place], [phone], 09/30/2025 16:49:23 amlodipi ne 5 mg tablet 2024 025 [id number] - [id number], [address], [place], [phone], 09/30/2025 16:49:22 magnesiu m oxide 400 mg (241.3 mg magnesiu m) tablet 2024 025 [id number] - [facility][id number], [address], [place], [phone], 10/01/2025 12:21:18 Patient TargetsNo targets recorded. Patient Instructions Encounter Date Encounter Id Patient Instructions Last Modified By Organization Details Last Modified Time 09/05/2025 [id number] T dian we discussed your upcoming colorectal surgery and recent hospital visits. - Continue taking MiraLAX daily to prevent bowel obstruction - Continue taking dicyclomine as needed for abdominal cramping; this medication can cause drowsiness - Complete your pre-operative testing at [facility] in [place] - The following tests have been ordered: chest X-ray, CBC, ferritin, iron, transferrin, magnesium, TSH - Complete testing within the next week - Continue your current medications including Lokelma - Try deep breathing exercises and gentle chest percussion to help clear your lungs - Avoid driving at night due to visibility concerns - Return to the emergency department if you experience sudden onset of nausea, vomiting, or inability to pass stool Not available 09/05/2025 17:06:49 D iscussed the use of audio recording for clinical note crime scene photographer via AI-assisted, HIPAA-compliant software with the patient, who gave verbal consent to proceed. 47 minutes was spent on the date of encounter reviewing pertinent history and previous diagnostics, performing medically appropriate examination and evaluation, ordering diagnostic tests, providing counseling and education to patient and caregiver, communicating with other health manager respiratory care, and independently interpreting results. This is excluding activities performed by clinical staff. Not available 09/05/2025 17:05:27 09/16/2025 [id number] Discussed the us e of audio recording for clinical note crime scene photographer via AI-assisted, HIPAA-compliant software with the patient, who gave verbal consent to proceed. 45 minutes was spent on the date of encounter reviewing pertinent history and previous diagnostics, performing medically appropriate examination and evaluation, ordering diagnostic tests and/or medications, providing counseling and education to patient and spouse, and documenting clinical information in the electronic health record. This is excluding activities performed by clinical staff. Not available 09/17/2025 13:36:45 09/23/2025 [id number] Discussed the us e of audio recording for clinical note crime scene photographer via AI-assisted, HIPAA-compliant software with the patient, who gave verbal consent to proceed. 38 minutes spent on the date of encounter: - reviewing pertinent history and previous diagnostics - performing medically appropriate examination and evaluation - ordering diagnostic tests and/or medications - providing counseling and education to patient and spouse - communicating with other health care professions - documenting clinical information in the electronic health record - independently interpreting results and communicating results to the patient This is excluding activities performed by clinical staff. Not available 09/28/2025 16:18:08 09/30/2025 [id number] Bryan biggs we discussed your recent hospitalizations and ongoing health issues. - Continue taking magnesium supplements twice daily (500mg morning and night) - New prescriptions sent for thyroid medication (increased dose of 37.5mcg) and blood pressure medication - Take thyroid medication on empty stomach, 1 hour before other medications as you have been doing - When you get a low value on your CGM, please check with your glucometer and write these numbers down - Eat nourishing comforting minced moist food - It's OK to take your hydrocodone as prescribed for pain - Focus on drinking enough fluids and maintaining nutrition - I will contact your kidney doctor, hormone doctor, palliative care and surgical team to coordinate your care - Lab orders placed for ongoing monitoring of your magnesium levels with your other labs every 3 days Not available 10/01/2025 12:41:09 D iscussed the use of audio recording for clinical note crime scene photographer via AI-assisted, HIPAA-compliant software with the patient, who gave verbal consent to proceed. 55 minutes was spent on the date of encounter reviewing pertinent history and previous diagnostics, performing medically appropriate evaluation, ordering diagnostic tests and medications, providing counseling and education to patient and caregiver, referring and communicating with other health manager respiratory care including palliative care, perioperative services and colorectal surgery, documenting clinical information in the electronic health record, and independently interpreting results. This is excluding activities performed by clinical staff. Coded [id number] for chronic complexity and coordination Not available 10/01/2025 12:28:40 10/03/2025 [id number] Pt and spouse salomon ve no access to the portal; please print and provide to pt and spouse. MAGNESIUM PLAN - Stop taking your oral magnesium: as you are not absorbing it and it may be contributing to your diarrhea - Decrease your pantoprazole to 20mg once daily (1/2 tablet) - You will start weekly magnesium infusions at the [facility] - You will need to go to the lab at the hospital 1 hour before your infusion time to have your magnesium level drawn. Your dose is based on your magnesium level. - Your first session is set for October 09 - The [facility] will be calling to let you know what time your session is - Amy Yancey and I have discussed the need for you to have equipment operator intermodal yard IV access like a PICC SURGICAL PLAN - I spoke to Dr Arzola at [facility] on 10/02/25 - She believes it would be best for you to be seen by the [facility]. She talked to surgeon Osman Stauffer from on 10/02/25 and he has agreed to consult; Dr Arzola said she was placing the referral to Dr Stauffer. - I sent Dr Stauffer your recent visit, ER and lab results - The phone number for the [facility] is [phone] or [phone] - Still need to reschedule follow up with Dr Diaz an ileoscopy to determine if part of your obstruction is related to a Crohn's flare - Please call [facility] on Monday To-Do - Continue [...] e of audio recording for clinical note crime scene photographer via AI-assisted, HIPAA-compliant software with the patient, who gave verbal consent to proceed. 55 minutes was spent on the date of encounter. Reviewed pertinent history and previous diagnostics, performed medically appropriate examination and evaluation, provided counseling and education to patient and spouse, called and gave handoff to ED provider and updated Palliative Care YOUTH COUNSELOR, documented clinical information in the electronic health record, independently interpreted results and communicated results to the patient and spouse. This is excluding activities performed by clinical staff. Coded for complexity Not available 10/04/2025 11:20:03 Reason for Referral None Reported. Results Created Date Observation Date Name Description Value Unit Range Abnormal Flag Note LastModifiedBy Organization Detail LastModifiedTime 08/20/2008/21/2025 CMP14 +EGFR glucose 54 mg/dL 70-99 below low normal Not Available [facility] ([facility]) [address] [place], [address], 08/21/2025 09:09:05 08/20/2008/21/2025 CMP14 +EGFR BUN 12 mg/dL 8-27 normal Not Available [facility] ([facility]) [address] [place], [address], 08/21/2025 09:09:05 08/20/2008/21/2025 CMP14 +EGFR creatinine 0.54 mg/dL 0.57-1 .00 below low normal Not Available [facility] ([facility]) [address] [place], [address], 08/21/2025 09:09:05 08/20/2008/21/2025 CMP14 +EGFR eGFR 102 mL/mi n/1.7 3 >59 normal Not Available [facility] ([facility]) [address] [place], [address], 08/21/2025 09:09:05 08/20/2008/21/2025 CMP14 +EGFR BUN/creatini ne ratio 22 12-28 normal Not Available [facility] ([facility]) [address] [place], [address], 08/21/2025 09:09:05 08/20/2008/21/2025 CMP14 +EGFR sodium 137 mmol/ L 134-14 4 normal Not Available [facility] ([facility]) [address] [place], [address], 08/21/2025 09:09:05 08/20/2008/21/2025 CMP14 +EGFR potassium 3.8 mmol/ L 3.5-5. 2 normal Not Available [facility] ([facility]) [address] [place], [address], 08/21/2025 09:09:05 08/20/2008/21/2025 CMP14 +EGFR chloride 102 mmol/ L 96-106 normal Not Available [facility] ([facility]) [address] [place], [address], 08/21/2025 09:09:05 08/20/2008/21/2025 CMP14 +EGFR carbon dioxide, total 20 mmol/ L 20-29 normal Not Available [facility] ([facility]) [address] [place], [address], 08/21/2025 09:09:05 08/20/2008/21/2025 CMP14 +EGFR calcium 9.2 mg/dL 8.7-10 .3 normal Not Available [facility] ([facility]) [address] [place], [address], 08/21/2025 09:09:05 08/20/2008/21/2025 CMP14 +EGFR protein, total 6.3 g/dL 6.0-8. 5 normal Not Available [facility] ([facility]) [address], [place], [address], 08/21/2025 09:09:05 08/20/2008/21/2025 CMP14 +EGFR albumin 3.5 g/dL 3.9-4. 9 below low normal Not Available [facility] ([facility]) [address], [place], [address], 08/21/2025 09:09:05 08/20/2008/21/2025 CMP14 +EGFR globulin, total 2.8 g/dL 1.5-4. 5 Not Available [facility] ([facility]) [address] [place], [address], 08/21/2025 09:09:05 08/20/2008/21/2025 CMP14 +EGFR bilirubin, total <0.2 mg/dL 0.0-1. 2 Not Available [facility] ([facility]) [address], [place], [address], 08/21/2025 09:09:05 08/20/2008/21/2025 CMP14 +EGFR alkaline phosphatase 95 IU/L 49-135 normal Not Available [facility] ([facility]) [address] [place], [address], 08/21/2025 09:09:05 08/20/2008/21/2025 CMP14 +EGFR AST (SGOT) 8 IU/L 0-40 normal Not Available [facility] ([facility]) [address] [place], [address], 08/21/2025 09:09:05 08/20/2008/21/2025 CMP14 +EGFR ALT (SGPT) 16 IU/L 0-32 normal Not Available [facility] ([facility]) [address] [place], [address], 08/21/2025 09:09:05 08/20/2008/21/2025 CBC WITH DIFFE RENTI AL/PL ATELE T WBC 4.3 x10e3 /uL 3.4-10 .8 normal Not Available [facility] ([facility]) [address] [place], [address], 08/21/2025 09:09:06 08/20/2008/21/2025 CBC WITH DIFFE RENTI AL/PL ATELE T RBC 2.91 x10e6 /uL 3.77-5 .28 below low normal Polyc hroma kannan prese nt Rare nucle ated RBC seen. Not Available [facility] ([facility]) [address] [place], [address], 08/21/2025 09:09:06 08/20/2008/21/2025 CBC WITH DIFFE RENTI AL/PL ATELE T hemoglobin 9.0 g/dL 11.1-1 5.9 below low normal Not Available [facility] ([facility]) [address] [place], [address], 08/21/2025 09:09:06 08/20/2008/21/2025 CBC WITH DIFFE RENTI AL/PL ATELE T hematocrit 26.8 % 34.0-4 6.6 below low normal Not Available [facility] ([facility]) [address] [place], [address], 08/21/2025 09:09:06 08/20/2008/21/2025 CBC WITH DIFFE RENTI AL/PL ATELE T MCV 92 fL 79-97 normal Not Available [facility] ([facility]) [address] [place], [address], 08/21/2025 09:09:06 08/20/2008/21/2025 CBC WITH DIFFE RENTI AL/PL ATELE T MCH 30.9 pg 26.6-3 3.0 normal Not Available [facility] ([facility]) [address] [place], [address], 08/21/2025 09:09:06 08/20/2008/21/2025 CBC WITH DIFFE RENTI AL/PL ATELE T MCHC 33.6 g/dL 31.5-3 5.7 normal Not Available [facility] ([facility]) [address], [place], [address], 08/21/2025 09:09:06 08/20/2008/21/2025 CBC WITH DIFFE RENTI AL/PL ATELE T RDW 13.4 % 11.7-1 5.4 Not Available [facility] ([facility]) [address], [place], [address], 08/21/2025 09:09:06 08/20/2008/21/2025 CBC WITH DIFFE RENTI AL/PL ATELE T platelets 238 x10e3 /uL 150-45 0 normal Not Available [facility] ([facility]) [address], [place], [address], 08/21/2025 09:09:06 08/20/2008/21/2025 CBC WITH DIFFE RENTI AL/PL ATELE T neutrophils 56 % not estab. normal Not Available [facility] ([facility]) [address], [place], [address], 08/21/2025 09:09:06 08/20/2008/21/2025 CBC WITH DIFFE RENTI AL/PL ATELE T lymphs 23 % not estab. normal Not Available [facility] ([facility]) [address], [place], [address], 08/21/2025 09:09:06 08/20/2008/21/2025 CBC WITH DIFFE RENTI AL/PL ATELE T monocytes 10 % not estab. normal Not Available [facility] ([facility]) [address], [place], [address], 08/21/2025 09:09:06 08/20/20 25 08/21/2025 CBC WITH DIFFE RENTI AL/PL ATELE T eos 3 % not estab. normal Not Available [facility] ([facility]) [address], [place], [address], 08/21/2025 09:09:06 08/20/20 25 08/21/2025 CBC WITH DIFFE RENTI AL/PL ATELE T basos 0 % not estab. normal Not Available [facility] ([facility]) [address], [place], [address], 08/21/2025 09:09:06 08/20/2008/21/2025 CBC WITH DIFFE RENTI AL/PL ATELE T immature cells Note Not Available [facility] ([facility]) [address], [place], [address], 08/21/2025 09:09:06 08/20/2008/21/2025 CBC WITH DIFFE RENTI AL/PL ATELE T bands YOUTH COUNSELOR Not Available [facility] ([facility]) [address], [place], [address], 08/21/2025 09:09:06 08/20/20 25 08/21/2025 CBC WITH DIFFE RENTI AL/PL ATELE T metamyelocyt es 3 % 0 - 0 above high normal Not Available [facility] ([facility]) [address], [place], [address], 08/21/2025 09:09:06 08/20/20 25 08/21/2025 CBC WITH DIFFE RENTI AL/PL ATELE T myelocytes 5 % 0 - 0 above high normal Not Available [facility] ([facility]) [address], [place], [address], 08/21/2025 09:09:06 08/20/20 25 08/21/2025 CBC WITH DIFFE RENTI AL/PL ATELE T promyelocyte s YOUTH COUNSELOR Not Available [facility] ([facility]) [address], [place], [address], 08/21/2025 09:09:06 08/20/2008/21/2025 CBC WITH DIFFE RENTI AL/PL ATELE T blasts/blast like cells YOUTH COUNSELOR Not Available [facility] ([facility]) [address], [place], [address], 08/21/2025 09:09:06 08/20/2008/21/2025 CBC WITH DIFFE RENTI AL/PL ATELE T megakaryocyt es YOUTH COUNSELOR Not Available [facility] ([facility]) [address], [place], [address], 08/21/2025 09:09:06 08/20/2008/21/2025 CBC WITH DIFFE RENTI AL/PL ATELE T other, lineage uncertain YOUTH COUNSELOR Not Available [facility] ([facility]) [address], [place], [address], 08/21/2025 09:09:06 08/20/2008/21/2025 CBC WITH DIFFE RENTI AL/PL ATELE T neutrophils (absolute) 2.4 x10e3 /uL 1.4-7. 0 normal Not Available [facility] ([facility]) [address], [place], [address], 08/21/2025 09:09:06 08/20/2008/21/2025 CBC WITH DIFFE RENTI AL/PL ATELE T lymphs (absolute) 1.0 x10e3 /uL 0.7-3. 1 normal Not Available [facility] ([facility]) [address], [place], [address], 08/21/2025 09:09:06 08/20/20 25 08/21/2025 CBC WITH DIFFE RENTI AL/PL ATELE T monocytes(ab solute) 0.4 x10e3 /uL 0.1-0. 9 normal Not Available [facility] ([facility]) [address], [place], [address], 08/21/2025 09:09:06 08/20/2008/21/2025 CBC WITH DIFFE RENTI AL/PL ATELE T eos (absolute) 0.1 x10e3 /uL 0.0-0. 4 normal Not Available [facility] ([facility]) [address], [place], [address], 08/21/2025 09:09:06 08/20/2008/21/2025 CBC WITH DIFFE RENTI AL/PL ATELE T baso (absolute) 0.0 x10e3 /uL 0.0-0. 2 normal Not Available [facility] ([facility]) [address], [place], [address], 08/21/2025 09:09:06 08/20/2008/21/2025 CBC WITH DIFFE RENTI AL/PL ATELE T immature granulocytes YOUTH COUNSELOR Not Available [facility] ([facility]) [address], [place], [address], 08/21/2025 09:09:06 08/20/2008/21/2025 CBC WITH DIFFE RENTI AL/PL ATELE T immature grans (abs) YOUTH COUNSELOR Not Available [facility] ([facility]) [address], [place], [address], 08/21/2025 09:09:06 08/20/2008/21/2025 CBC WITH DIFFE RENTI AL/PL ATELE T NRBC 1 % 0 - 0 above high normal Not Available [facility] ([facility]) [address], [place], [address], 08/21/2025 09:09:06 08/20/2008/21/2025 CBC WITH DIFFE RENTI AL/PL ATELE T hematology comments: Note: CBC met refle x crite lis for revie w of perip heral smear by medic al labor atory profe santi don. Alisia ballarde renti al was perfo rmed. Not Available [facility] ([facility]) [address], [place], [address], 08/21/2025 09:09:06 08/20/2008/21/2025 ESR-W ES+CR P erythrocyte sedimentatio n rate 103 mm/HR 0-40 above high normal Not Available [facility] ([facility]) [address], [place], [address], 08/26/2025 12:08:49 08/20/2008/21/2025 ESR-W ES+CR P C-reactive protein, quant 43 mg/L 0-10 above high normal Not Available [facility] ([facility]) [address], [place], [address], 08/26/2025 12:08:49 08/20/2008/26/2025 BLOOD CULTU RE, GILDARDOI NE blood culture, routine Final report Not Available [facility] ([facility]) [address], [place], [address], 08/26/2025 12:08:50 08/20/2008/26/2025 BLOOD CULTU RE ROUTI NE result 1 COMMEN T No aerob ic or anaer obic growt h in five days. Not Available [facility] ([facility]) [address], [place], [address], 08/26/2025 12:08:50 08/06/2008/06/2025 US, devora x, loreto s, lower extre mity, salazar teral No observ ation record ed. [email or web address] [facility] [address], [place], [address], 08/13/2025 12:15:08 08/07/2008/07/2025 MR, enter ogram , w/wo contr ast No observ ation record ed. [address] [facility] [address], [place], [address], 08/10/2025 18:41:20 08/14/2008/14/2025 CT, abdom en + pelvi s, w/ contr ast No observ ation record ed. [address] [facility] [address] [place], [address], 08/14/2025 12:46:45 08/14/2008/14/2025 XR, chest , 2 view No observ ation record ed. [address] [facility] [address] [place], [address], 08/14/2025 21:16:01 08/25/2008/22/2025 XR, chest , 2 view No observ ation record ed. [address] [facility] [address] [place], [address], 08/25/2025 11:19:47 08/29/2008/28/2025 CT, abdom en + pelvi s, w/ contr ast No observ ation record ed. [address] [facility] [address] [place], [address], 08/29/2025 10:06:50 09/14/2009/14/2025 CT, head, w/o contr ast No observ ation record ed. [address] [facility] [address] [place], [address], 09/14/2025 13:14:59 09/14/2009/14/2025 CT, abdom en + pelvi s, w/ contr ast No observ ation record ed. [address] [facility] [address] [place], [address], 09/14/2025 13:20:40 09/21/20 25 09/19/2025 XR, chest , 2 view No observ ation record ed. [address] [facility] [address] [place], [address], 09/22/2025 10:30:11 09/26/20 25 09/26/2025 CT, head, w/o contr ast No observ ation record ed. [address] [facility] [address] [place], [address], 09/28/2025 16:04:45 10/02/2010/02/2025 XR, chest , 2 view No observ ation record ed. [address] [facility] [address] [place], [address], 10/02/2025 12:23:16 10/02/2010/02/2025 CT, abdom en + pelvi s, w/ contr ast No observ ation record ed. [address] [facility] [address] [place], [address], 10/02/2025 11:17:11 Result Notes None recorded. 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 [facility] [place] 13:54:05 Hearing loss 15125879 Active YOKASTA Washington [address] [place], [address], [facility] 3 12:50:58 Dyspnea 164009978 Completed 201908/15/2023 YOKASTA Washington [address] [place], [address], [facility] 3 12:48:52 Parastom al hernia 613797520 Completed 202110/30/2024 Surgery in December 2022 Amy Yancey NP, S [address] [place] [address], [address], [facility] 5 09:46:32 Alcohol dependen ce 19404321 Active 2022 Amy Yancey NP, S [address] [place] [address], [address], [facility] 3 08:43:04 History of seizure due to alcohol withdraw al 09196268165 4103 Active 2022 Witness tonic clonic sz in ED 06/2023 Amy Yancey NP, S [address] [place], [address], [facility] 3 08:43:45 Nodule of skin of foot 884771950 Completed 202210/30/2024 Amy Yancey NP, S [address] [place], [address], [facility] 5 09:46:38 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 802074902 Active 2023 [facility] [place] 13:54:25 Dependen t edema 033922990 Completed 202310/30/2024 Amy Yancey NP, S [address] [place] [address], [address], [facility] 09:46:25 Essentia l hyperten elva 79468960 Active 2023 [facility] [place] [facility] 19:25:02 Hyponatr emia 54709395 Active 2023 Amy Yancey NP, S [address] [place], [address], [facility] 09:46:14 Hyperkal emia 51962522 Active 2023 Amy Yancey NP, S [address] [place], [address], [facility] 09:46:20 Cellulit is of right lower limb 46562166652 978188 Active 2024 YOKASTA Washington [address] [place], [address], [facility] 16:40:46 Sepsis 98908402 Completed 202401/30/2025 YOKASTA Washington [address] [place], [address], [facility] 17:02:30 Hypovole kiya shock 49983123 Active 2024 YOKASTA Washington [address] [place], [address], [facility] 17:02:33 Notes:Some problems listed i n Documents: #[id number], #[id number] could not be added to this patient's chart. Please review these documents and add these problems to the patient's chart manually as needed. Problem Notes None recorded. Procedures Surgical History Date Name Laterality Status Provider Name and Address Organization Details Recorded Time 12/27/19 23 repair of parastomal hernia completed Amy Yancey NP, S [address], [address], [facility] 12/31/2022 08:40:56 10/14/20 22 endoscopy of ileum completed Amy Yancey NP, Mihir [address] [place], [address], [facility] 10/24/2022 11:49:50 01/04/20 22 endoscopy of ileum completed Amy Yancye NP, Mihir [address] [place] [address], [address], [facility] 01/04/2022 13:21:16 07/11/20 20 video assisted thoracoscopy completed Amy Yancey NP, Mihir [address] [place] [address], [address], [facility] 08/04/2020 17:25:19 06/30/20 20 limited thoracotomy completed Amy Yancey NP, [place], [address], [facility] 12/21/2021 17:53:24 decompression of spinal cord completed Amy Yancey NP, Mihir [address] [place] [address], [address], [facility] 10/16/2023 08:39:41 Imaging Results None recorded. Procedure Notes None recorded. Medical Equipment None Reported. Allergies Allergen ID Allergen Name Allergen Category Reaction Reaction Severity Criticality Documentation Date Start Date Code Code System Note Provider Name and Address Organization Details Recorded Time 35367 sulfameth oxazole medicatio n nausea photosens itivity mild mild low 08/15/20232021 31668 RxNorm shaky .ok to take but signi fican t side effec ts YOKASTA Washington [address] [place], [address], [facility] 3 12:57:30 01875 losartan medicatio n Not available Not available Not available 12/18/2024 34033 RxNorm Contr aindi cated d/t RTA4 YOKASTA SAUCEDA [address] [place] [address], [address], [facility] 5 16:08:54 00553 methocarb miguel angel medicatio n hallucina tions Not available low 12/18/2024 6845 RxNorm YOKASTA SAUCEDA [address] [place] [address], [address], [facility] 5 16:09:48 24237 vancomyci n medicatio n anaphylax is Not available high 12/18/20242022 08091 RxNorm WENDY NORRISYOKASTA [address] [place], [address], [facility] 5 16:10:17 86616 gabapenti n medicatio n other Not available Not available 09/14/20252024 45882 RxNorm sedat ion Not Available myla - [employer] - prod 5 13:16:21 35721 sulfameth oxazole / trimethop rim medicatio n nausea photosens itivity Not available Not available low 09/14/20252019 63463 RxNorm Not Available [employer]la - [employer] - prod 5 13:16:21 71178 penicilli n G Not available Not available Not available high 09/14/20252021 7980 RxNorm Not Available [employer] - prod 5 13:26:20 4783 Product containin g penicilli n (product) medicatio n anaphylax is severe Not available 04/08/2020 08520 8001 SNOMED Ruchi Phillips [facility] 0 16:35:49 4784 Bactrim medicatio n Not available Not available Not available 04/08/2020 94506 9 RxNorm [facility] [place] [facility] 16:36:15 4785 ciproflox acin medicatio n dizziness nausea palpitati ons Not available mild Not available high 04/08/20202024 2551 RxNorm two separ ate react ions: 0, 5 WENDY HILLIARDYOKASTA ORTIZ [address] [place], [address], [facility] 5 14:52:35 Medications Name Sig Start Date [...] Available No t Available FreeStyle Beba 2 Twain USE CONTINUO USLY TO MONITOR BLOOD SUGARS [...] t Available Vitals Date Recorded Body height Body mass index (BMI) Body weight Body temperature Heart rate Oxygen saturation Systolic And Diastolic Provider Name and Address Organization Details Last Updated DateTime 5 144.78 cm 20.6 kg/m2 21768.9 9 g 96.6 [degF] 59 /min 96 % 138/64 mm[Hg] Alma [facility] 5 16:01:27 Date Recorded Body height Body mass index (BMI) Body weight Body temperature Heart rate Oxygen saturation Systolic And Diastolic Provider Name and Address Organization Details Last Updated DateTime 5 143.51 cm 20.9 kg/m2 24719.2 8 g 97.7 [degF] 67 /min 94 % 140/88 mm[Hg] Sunitha [facility] 5 12:56:21 Date Recorded Body height Body mass index (BMI) Body weight Body temperature Heart rate Oxygen saturation Systolic And Diastolic Provider Name and Address Organization Details Last Updated DateTime 5 143.51 cm 20.6 kg/m2 34271.2 5 g 96.8 [degF] 48 /min 97 % 161/92 mm[Hg] Sunitha [facility] 5 16:40:39 Date Recorded Body height Body mass index (BMI) Body weight Oxygen saturation Body temperature Heart rate Systolic And Diastolic Provider Name and Address Organization Details Last Updated DateTime 5 143.51 cm 20.5 kg/m2 22946.0 9 g 99 % 97.4 [degF] 50 /min 120/64 mm[Hg] [facility] 16:05:52 Date Recorded Body height Heart rate Oxygen saturation Body temperature Body mass index (BMI) Body weight Systolic And Diastolic Provider Name and Address Organization Details Last Updated DateTime 5 143.51 cm 71 /min 97 % 98.4 [degF] 19.5 kg/m2 08147.2 8 g 98/65 mm[Hg] [facility] 16:00:10 Social History Question Answer Notes LastModified by Organizat ion Details LastModified Time Tobacco Smoking Status Never Smoker Ruchi [facility] 04/08/2020 16:42:26 What Is Your Level Of Caffeine Consumption? Moderate Information not available 04/08/2020 How Many Children Do You Have? 2 Information not available 04/08/2020 Sex: Unknown Functional Status Question Answer Note LastModified by Organizat ion Details LastModified Time What is your level [...] virus, quadrivalent, PF 08/04/2020 completed YOKASTA Washington [address] [place], [address], [facility] 08/15/2023 12:57:56 Past Encounters Encounter ID Performer Location Encounter Start Date Encounter Closed Date Diagnosis/Indication Diagnosis SNOMED-CT Code Diagnosis ICD10 Code Diagnosis IMO Codes Diagnosis Note [id number] Amy Yancey NP, S [facility] [address] [place] [address] 04/08/2020 19:04:40 04/11/2020 12:02:29 Crohn's disease 22880240 K50.90 Overall stable. No meds. She will f/u if any worsening symptoms. Ileostomy present 180039 002 Z93.2 Digital mu cous cyst of left hand 5463621750 360195 M67.442 With verbal consent area prepped with betadine and a 16 gauge needle inserted into the cyst using sterile technique. No fluid expressed. Needle removed and with squeezing a small amount of gelatinous yellow material expressed from puncture site. Bandaid placed over site. Will refer for surgical consult. Monitor for any concerns for infection and f/u PRN. [id number] Inez Bello NP [facility] [address] [place] [address] 07/07/2020 11:43:14 07/08/2020 21:39:08 Nausea 616092149 R11.0 Rx Ondansetro n so pt can tolerate Azithromyc in. Dyspnea 756773732 R06.00 Ddx includes flu, COVID, PNA. Given length of sxs, positive flu test would not alter tx. Will test for COVID - this YOUTH COUNSELOR observed pt perform anterior nare self-swab. Isolation and OTC care discussed. Rx Albuterol Inhaler to use prn, rx Ondansetro n for abx associated nausea. [id number] ASHLEIGH GÓMEZ PA-C [facility] [address] [place] [address] 07/09/2020 13:35:12 07/13/2020 10:23:41 Dysfunction of bilateral eustachian tubes 4090153798 671886 H69.93 Advised use of nasal saline spray and daily antihistam ine. Advise use of pseudophed rine for symptomati c fullness of ears, however noted it is for symptomati c use not cure. Discussed RTC precaution s. Dyspnea 137084522 R06.00 Completed azithromyc in course for pneumonia. Improving. Using albuterol sparingly. Discussed RTC precaution s. [id number] ASHLEIGH GÓMEZ PA-C [facility] [address] [place] [address] 07/10/2020 17:03:55 07/13/2020 10:29:22 Dyspnea 746796870 R06.00 Concern for worsening of pneumonia. Will order chest xray. Will consider doxycyclin e 100 mg BID x 5 day if shows signs of persistent pneumonia. Discussed RTC/ER precaution s. Chest Xray showed cavitary mass or pneumonia right anterior lung. Patient advised to go to ER due to need for IV antibiotic s. Patient had stopped by clinic on the way to ER and vital signs were obtained. [id number] Amy Yancey NP, S [facility] [address] [place] [address] 11/22/2021 16:14:15 11/23/2021 11:29:23 Ileostomy malfunction 828306749 K94.13 Possible infection - will trial tmp-smx x 7 days. Believes prior SE was GI irritation .Suspect parastomal hernia - check CT.Doesn't have insurance again until Nov 30.Will wait to send ostomy nurse and surgical referral until after Nov 30. Parastomal hernia 749375 007 K43.5 Crohn's disease 39435666 K50.90 Overall stable. No meds. She will f/u if any worsening symptoms. [id number] ASHLEIGH GÓMEZ PA-C [facility] [address] [place] [address] 02/22/2022 10:09:03 02/25/2022 17:54:09 Cough 88564842 R05.9 Cough due to viral illness. Will test for COVID-19. Mild wheezing throughout lung wright, will prescribe albuterol 2 puffs q 4-6 hours PRN. Will provide benzonatat e 100 mg TID PRN for cough, however primarily for use at bedtime to sleep. Due to history of cavitary pneumonia in 2019, will obtain chest xray to r/o pneumonia particular ly in setting of O2 stat mildly low today. Discussed RTC/ER precaution s. [id number] Amy Yancey YOUTH COUNSELOR, S [facility] [address] [place] [address] 03/02/2022 19:23:33 03/04/2022 09:41:43 Acute bronchitis 42912304 J20.9 3 weeks of cough with slow improvemen t. Covid negative. CXR without acute findings. Awaiting start of monoclonal ab treatment. History of cavitary pneumonia. Given this history, elected to treat for possible bacteria bronchitis vs slowly resolving viral bronchitis . She will report back on her response and f/u if not improving. Elevated blood-pressure reading without diagnosis of hypertension 053659417 R03.0 Noted today. Typically has normal BPs. Consider stress or reaction to Dayquil she has been taking. She will have multiple follow up visits with specialist s in near future and BP will be checked and I encouraged her to see me back if BP remains elevated. Crohn's disease 66264533 K50.90 [facility] ed for flare in December. No meds at this time, but planning to start monoclonal ab.I did fax a copy of recent labs in our record to her GI Dr. Diaz to help facilitate next steps in Crohn's management . Parastomal hernia 002707 007 K43.5 Working with surgery on correction but needs to get Crohn's controlled first - see above. [id number] Amy Yancey NP, S [facility] [address] [place] [address] 03/07/2022 13:29:27 03/22/2022 12:14:44 [facility]'s [facility] 63932717 K50.90 [facility] No meds at this time, but planning to start monoclonal ab. Working with GI Dr. Diaz at [facility]. Does report increased symptoms after taking abx, now improving. She was given an Rx for prednisone to start in case of worsening symptoms. Advised to call back if she starts for tapering instructio ns. Acute bronchitis 0648722 2 J20.9 3 weeks of cough with slow improvemen t. Covid negative. CXR without acute findings. Awaiting start of monoclonal ab treatment. History of cavitary pneumonia. Did not tolerate azithromyc in after 2 days so stopped - no feeling better. [id number] Amy Yancey NP, S [facility] [address] [place] [address] 05/04/2022 17:18:24 05/11/2022 20:05:00 Tenosynovitis of left radial styloid 5895707561 6071830 M65.4 Check x-ray.Plac ed in thumb spica splint.Ice .Consider OT referral if not improving with splinting. Crohn's disease 24015183 K50.90 Hospitaliz ed for flare in December. No meds at this time, but planning to start monoclonal ab. Working with GI Dr. Diaz at [facility]. [id number] Amy Yancey NP, S [facility] [address] [place] [address] 07/27/2022 10:22:54 08/03/2022 14:16:11 Ileostomy present 249261132 Z93.2 Order for ileostomy supplies sent. Chronic insomnia 4789224 04 F51.04 intermitte nt x years. Doesn't feel depressed, no anhedonia. Not interested in medication . Crohn's disease 47729670 K50.90 Recently started infliximab . No significan t improvemen t yet. Saw GI last week who added azathiopri ne Parastomal hernia 954712 007 K43.5 Working with surgery on correction but needs to get Crohn's controlled first. Plan for repeat ileoscopy in August. [id number] Amy Yancey NP, S [facility] [address] [place] [address] 01/27/2023 16:53:40 01/31/2023 00:38:43 Crohn's disease 45055290 K50.90 Suspect abdominal pain is related to flare.Cons ulted with her GI Dr. Diaz while patient in clinic. His recommenda tions:Dr. Diaz wans you to resume your infliximab infusions - they will call you to help with this.Use the hydrocorti sone enemas twice a day for 2 weeks.Resu me the azathiopri ne 50 mg - 2 tablets daily.Use oxycodone as needed for pain. Left lower quadrant pain 797885592 R10.32 See above. [id number] Amy Yancey NP, S [facility] [address] [place] [address] 07/21/2023 16:03:27 07/22/2023 19:05:02 Alcohol dependence 09043315 F10.20 Suggested "Quit Like a Woman: The Radical Choice to Not Drink in a Culture Obsessed with Alcohol" by Meghana Patel. [employer] [facility] [employer] offers online group meetings and support.ht [email or web address] [email or web address]/ Discussed AA - she was more interestin g in online options. Crohn's disease 14415915 K50.90 Infliximab infusion tomorrow.F ollow up with GI MD for management plan on frequency of infliximab infusions. Mixed anxi ety and depressive disorder 588035449 F41.8 Therapeuti c listening. Talk therapy - group or solo - may be very helpful. Will discuss [facility]. We'll try some sertraline and see how you do. You can stop it if you think it is causing problems. Follow up with me in about 4-6 weeks Discussed current lorazepam use and encouraged to only take if all other anxiety strategies fail - discussed increased risk for dependence in setting of recent alcohol abuse patterns. History of seizure due to alcohol withdrawal 0965966012 75382 Z86.69 Discussed importance of medication with fernandomeryl wyman if she were to resume drinking and then quit again and to schedule visit in clinic for medication support to prevent another sz. Vitamin D deficiency 347 08600 E55.9 15 during recent hospitaliz ation 07/22. Vit D2 50,000 given as daily dose x 30 days. Given this unusual dosing advised to stop Vit D at this time and recheck at next follow up. Thiamine deficiency 3993 89177 E51.9 Per discharge info. Advised to start B1 100 mg per day. Hypomagnesemia 359542254 E83.42 I'm hesitant to have her take mag given current crohns' symptoms - will plan to recheck labs at follow up. [id number] YOKASTA Washington [facility] [address] [place] [address] 08/15/2023 12:24:44 08/17/2023 00:03:33 Nodule of skin of foot 973386770 R22.41 Nodule noted to dorsal surface of right foot. DDx: bone spur, ganglion cyst, sebaceous cyst. Ordered 3 view XR of foot - if negative, then plan to obtain US of foot. Call with results. [id number] SARAY PEDRAZA NP [facility] [address] [place] [address] 12/13/2023 15:59:37 12/14/2023 19:03:07 Essential hypertension 08192944 I10 Reviewed course of Rehab stay and notes. Reconciled all medication s. Provided refills of losartan, hydralazin e and amlodipine . Consider CCM. Anemia 863303838 D64.9 Reviewed course of Rehab stay and notes. Reconciled all medication s. Refilled iron and provided labs to recheck CBC and iron panel in 3 months. Epidural abscess 4488555 8 G06.2 Reviewed course of Rehab stay and notes. Reconciled all medication s. Patient to contact neurology and infectious disease to determine when to take off C-collar and stop cephalexin . Osteomyelitis 40987810 M 86.9 Reviewed course of Rehab stay and notes. Reconciled all medication s. Patient to contact neurology and infectious disease to determine when to take off C-collar and stop cephalexin . [id number] ELZA LOPEZ [facility] [address] [place] [address] 12/21/2023 19:26:08 12/22/2023 15:03:59 Hyponatremia 09586595 E87.1 ER F/u with overnight admission for hydration and monitoring .Na +122 in ER and 139 at SC. Reports doing much better. is encouragin g fluids/gat orade. Had f/u with HH tomorrow from previous health issues over the past year. [id number] Amy Yancey, BARBARA, S [facility] [address] [place] [address] 01/18/2024 15:54:45 01/23/2024 19:22:43 History of sepsis 6361955785 02047 Z86.19 Call Infectious disease, Dr. Calles's office, to discuss continuing cephalexin and get an appointmen t set up to help coordinate care with Dr. Diaz about crohn's management .206326-3 000 Anemia 122810980 D64.9 Taking iron- check labs. Essential hypertension 60204303 I10 Continue current medication s pending repeat sodium levels. Consider stopping hctz. BP well controlled in clinic today. Hyponatremia 93264111 E8 7.1 Recheck labs. Crohn's disease 11390043 K50.90 Follow up with GI MD after meeting with infectious disease for management plan on Crohn's. Neck pain 87813521 M54.2 Continue gabapentin HS, PRN APAP and lidocaine patches. Rx for tramadol for occasional use on days with more severe pain. Continues home health PT. She will let me know when referral to outpatient PT needed. Ileostomy present 954713 002 Z93.2 Ostomy wound care referral sent to [facility] [id number] WENDY NORRIS [facility] [address] [place] [address] 04/23/2024 12:16:27 04/25/2024 18:38:53 Left side sciatica 8862956923 06398 M54.32 + CHERYL, + straight leg raise on LLEPain radiates from buttock through back of L thigh.Fair ly active considerin g significan t illness in 2022; discussed finding a happy medium to avoid being overly sedentary vs overdoing it.Will implement gabapentin 100mg TID for now; continue night time 300mg dose.Advis ed to continue to try consistent dosing of NSAIDs on a schedule in addition to gabapentin TID,good hydration, heat, positionin g with pillows, gentle ambulation , avoidance of lying on soft surfaces.O k to use tramadol for breakthrou gh pain once NSAID regimen establishe d; no refill needed.Rev iewed s/s requiring emergent care.. [id number] WENDY NORRIS [facility] [address] [place] [address] 05/03/2024 18:59:29 05/09/2024 19:13:01 Lumbar radiculopathy [id number] M54.16 Longstandi ng intermitte nt sciatic pain.Napro xen tx did not relieve since last visit; stop naproxen.S tart ibuprofen 400-600mg Q4-6H; stay on schedule for 48 hours.Refi ll tramadol at 50mg, 1 tab BID for breakthrou gh pain as needed, not to exceed 100mg/day. New PT referral placed; [facility] does not take their insurance. Lumbar x-rays to establish baseline; will request advanced imaging from [facility].Refer to physical medicine, tried cortisone injection many years ago with good outcome. Stress and adjustment reaction [id number] F43.9 Recovering from major illness and prolonged hospitaliz ation.Disc ussed feelings of sadness, limitation and loss of independen ce.Prefers to avoid SSRI therapy at this time, did find it helpful last year.Start talk therapy.In crease time outdoors when possible.F ollow up as needed if symptoms intensify. [id number] SARAY PDERAZA NP [facility] [address] [place] [phone] 05/29/2024 15:51:21 06/05/2024 20:28:25 Hyponatremia 73131683 E87.1 Reviewed course of hospital stay labs and diagnostic s. Reconciled medication s. Will restart lorsartan/ HCTZ 100/12.5 mg QD as pressure is again elevated. Patient to record daily BP and f/u with PCP next week. Provided orders for labs to recheck electrolyt es and CBC in one month. Provided referral to nutritioni st as patient feels comfortabl e discussing current condition and concerns for management to avoid hospitaliz ations. Discussed ongoing pain management for chronic sciatica made worse with hospital stay. Advised to stop IBF and take naproxen twice daily and tylenol TID PRN. Will follow up with PCP in one week to discuss continued prescripti on for tramadol if indicated. Hypomagnesemia 946240789 E83.42 Reviewed course of hospital stay labs and diagnostic s. Reconciled medication s. Will restart lorsartan/ HCTZ 100/12.5 mg QD as pressure is again elevated. Patient to record daily BP and f/u with PCP next week. Provided orders for labs to recheck electrolyt es and CBC in one month. Provided referral to nutritioni st as patient feels comfortabl e discussing current condition and concerns for management to avoid hospitaliz ations. Discussed ongoing pain management for chronic sciatica made worse with hospital stay. Advised to stop IBF and take naproxen twice daily and tylenol TID PRN. Will follow up with PCP in one week to discuss continued prescripti on for tramadol if indicated. Hypokalemia 24501921 E87 .6 Reviewed course of hospital stay labs and diagnostic s. Reconciled medication s. Will restart lorsartan/ HCTZ 100/12.5 mg QD as pressure is again elevated. Patient to record daily BP and f/u with PCP next week. Provided orders for labs to recheck electrolyt es and CBC in one month. Provided referral to nutritioni st as patient feels comfortabl e discussing current condition and concerns for management to avoid hospitaliz ations. Discussed ongoing pain management for chronic sciatica made worse with hospital stay. Advised to stop IBF and take naproxen twice daily and tylenol TID PRN. Will follow up with PCP in one week to discuss continued prescripti on for tramadol if indicated. Anemia 619267802 D64.9 Reviewed course of hospital stay labs and diagnostic s. Reconciled medication s. Will restart lorsartan/ HCTZ 100/12.5 mg QD as pressure is again elevated. Patient to record daily BP and f/u with PCP next week. Provided orders for labs to recheck electrolyt es and CBC in one month. Provided referral to nutritioni st as patient feels comfortabl e discussing current condition and concerns for management to avoid hospitaliz ations. Discussed ongoing pain management for chronic sciatica made worse with hospital stay. Advised to stop IBF and take naproxen twice daily and tylenol TID PRN. Will follow up with PCP in one week to discuss continued prescripti on for tramadol if indicated. Essential hypertension 73484193 I10 Reviewed course of hospital stay labs and diagnostic s. Reconciled medication s. Will restart lorsartan/ HCTZ 100/12.5 mg QD as pressure is again elevated. Patient to record daily BP and f/u with PCP next week. Provided orders for labs to recheck electrolyt es and CBC in one month. Provided referral to nutritioni st as patient feels comfortabl e discussing current condition and concerns for management to avoid hospitaliz ations. Discussed ongoing pain management for chronic sciatica made worse with hospital stay. Advised to stop IBF and take naproxen twice daily and tylenol TID PRN. Will follow up with PCP in one week to discuss continued prescripti on for tramadol if indicated. Difficulty eating 727065 000 R63.30 Reviewed course of hospital stay labs and diagnostic s. Reconciled medication s. Will restart lorsartan/ HCTZ 100/12.5 mg QD as pressure is again elevated. Patient to record daily BP and f/u with PCP next week. Provided orders for labs to recheck electrolyt es and CBC in one month. Provided referral to nutritioni st as patient feels comfortabl e discussing current condition and concerns for management to avoid hospitaliz ations. Discussed ongoing pain management for chronic sciatica made worse with hospital stay. Advised to stop IBF and take naproxen twice daily and tylenol TID PRN. Will follow up with PCP in one week to discuss continued prescripti on for tramadol if indicated. Hyponatrem ic encephalopathy 584896952 G93.41 [id number] Amy Yancey, BARBARA, S [facility] [address] [place] [address] 06/06/2024 15:35:29 06/13/2024 22:26:49 Anemia 324907205 D64.9 Taking iron:H/h 8/4/24: 8.5/27.1B- 12/iron levels normal in December. ?Anemia of chronic disease.Ch gali labs again next week Essential hypertension 03843060 I10 Stay off the losartan with hydrochlor othiazide due to low sodium,Sta rt plain losartan for blood pressure.C heck labs next week.If swelling remains significan t we can consider spironolac tone. Hyponatremia 46535550 E8 7.1 Recheck labs next week.No need to fast.The lab is open 7:30-2:30 Monday through Monday. No appointmen t needed. The lab is closed 09-29 for lunch. Crohn's disease 18238690 K50.90 some increased symptoms lately. Check labs.Veronica sheth schedule a follow up with Dr. Diaz to get look at Crohn's management options. Ileostomy present 932220 002 Z93.2 Lumbar spondylosis 19415 0009 M47.896 L lumbar radiculopa thy with spondylosi s on XR x 6 weeks, no improvemen t with conservati ve treatment. Check lumbar MRI.Trial course of prednisone for 1 week to help with pain. Stop Naproxen (Alevel) when you start prednisone . Ok to take other medication s with prednisone , limit use of tramadol in case that it worsening some of your other symptoms.[facility] home health PT/OT/nurs ing. Left side sciatica 15459 50799 49716 M54.32 Dependent edema 70383405 4 R60.0 Reviewed findings from ER visit - no significan t concerns though NA was slightly low at 131 though this was back on hctz.Compr ession and elevation. If swelling remains significan t we can consider spironolac tone. Insomnia 270582368 G47.0 0 Work on getting your sleep schedule back on track.Avoi d napping. Sleep Hygiene Recommenda tions1. Have a regular sleep schedule. Go to bed and get up at the same time every day, even on days off. By doing this, you will reinforce your own sleep-wake cycles and allow yourself to get better sleep during your sleep times, and be more alert during the times you want to be awake.2. Create at bedtime ritual. Do the same thing every night to tell your body that is time to go to sleep. Engage in relaxing activities such as listening to soothing music, taking a warm bath or shower, reading or listening to a calming book, etc. Place yourself in an environmen t with dim light, and avoid direct light in your eyes.Avoid using your TV, computer screen, tablets, or even your cell phone. Also, avoid stimulatin g activities and direct light (especiall y screen) if you wake up in the middle of the night.3. Make yourself comfortabl e. Make sure your room fits your own sleeping needs. These may mean making your room cool, dark and quiet. Find a comfortabl e mattress and pillow. 65 degrees has been shown to be the most ideal room temperatur e for sleeping for most people.4. Manage stress. Your stress during the day will spill over at night. Consider healthy ways to manage stress such as getting organized, setting priorities , and delegating tasks. Sometimes creating a w orry list can help, by writing down what is in your mind and set it aside for tomorrow.5 . Avoid heavy meals or going to bed hungry. Limit how much you drink before going to sleep. Watch what you eat and drink before bedtime. Alcohol may make you feel sleepy but often disrupts your sleep later in the night. Avoid any caffeinate d beverages at least 6 hours before bedtime.6. Avoid heavy exercise at least 3 hours before bedtime. Regular physical activity, can promote better sleep, but try to do it earlier in the day7. Avoid daytime naps. Sleeping through the day can interfere with her sleep at night. If you choose to nap during the day limit yourself to less than 20 or 30 minutes of nap time earlier in the afternoon8 . Do not go to bed unless you are sleepy and during your usual sleep time. If you do not fall asleep within 30 minutes get out of bed and engage in a relaxing activity without being exposed to bright light. Do not use the bed for anything other than sleep or sexual activity Anxiety 18652048 F41.9 Likely PTSD from prolonged hospitaliz ation, near .She is interested in "talking to someone."S he is working with a caregivers homecare through her insurance whose recent note indicated a list of therapist was sent to her email. I encouraged Bailey to locate this list and work on getting scheduled. [id number] Amy Yancey NP, S [facility] [address] [place] [phone] 06/12/2024 12:21:56 06/13/2024 22:53:41 Essential hypertension 83266519 I10 Stay off the losartan with hydrochlor othiazide due to low sodium.Con tinue 100 mg losartan.A dd spironolac tone 25 in morning for edema and blood pressure control. Once you get the spironolac tone you can stop the furosemide .Labs again in 1 week.Follo w up in 2-3 weeks. Hyponatremia 58535248 E8 7.1 Has increased intestinal loss d/t ostomy status, possible crohn's flare.Rech gali labs again in 1 week.Drink to your thirst level (don't feel like you have to be pushing water which can cause low sodium)No need to use low-salt foods or no-salt substitute s. Use salt shaker to taste when eating. Lumbar spondylosis 99949 0009 M47.896 L lumbar radiculopa thy with spondylosi s on x-ray x 6 weeks, no improvemen t with conservati ve treatment. Check lumbar MRI. Ordered last visit but denied and appeal needed.Cou rse of prednisone was helpful - she completes it tomorrow.R jackie will help determine indication for referral for physiatry for possible SANDRA/inject ion based interventi on or neurosurge ry if indicated. Continue home health PT/OT/nurs ing. Left side sciatica 52164 58213 28978 M54.32 Dependent edema 13042561 4 R60.0 Improved.A dd spironolac tone for BP and swelling control.Re check labs in 1 week. Anxiety 64700451 F41.9 Likely PTSD from prolonged hospitaliz ations/kassi r .She will start with therapist in [place] later this month. [id number] SARAY PEDRAZA NP [facility] [address] [place] [phone] 06/13/2024 17:51:49 06/24/2024 18:42:54 Dependent edema 339331908 R60.0 Appears to have resolved at this time. Had SEs from furosemide most likely secondary to diuresis. Will discontinu e. Essential hypertension 11957404 I10 Reviewed condition and medication s. Will discontinu e furosemide . Provided prescripti on for spironolac tone 25 mg QD. Discussed actions, indication s, usage, SEs and contraindi cations of medication . BP appears to be very near goal. Patient will follow up for labs ordered at prior visit in one week and to see PCP early June. [id number] YOKASTA ROMERO [facility] [address] [place] [phone] 06/18/2024 11:04:01 06/29/2024 22:31:11 Essential hypertension 54380363 I10 Recent ER visit for 200/100. Taking losartan 100mg/day (max dose), spironolac tone 25 mg (for BP and LE edema, can increase up to 50mg/day). Stopped HCTZ dt low sodium. Stopped amlodipine dt LE edema. Hydralazin e stopped, SE? Furosemide stopped?Pl an: Per discussion with YOKASTA Scott, add 5mg amlodipine . Keep BP log.Educat ed on signs to go to ER.Please make appointmen t for eye doctor for blurry vision left worse that right. Conjunctivitis 6677733 H 10.9 x 2 weeks.Use warm compress twice daily to clean eyes.Plan: eye drops three times a day. Blurring o f visual image 990656390 H53.8 Pt attributes blurring to BP medication . L > R. Denies pain, halo, holes in vision. Has not had recent eye exam. Concern for HTN related eye changes, glaucoma.P vamshi: eye examMonito r for increasing changes in vision. [id number] Amy Yancey NP, S [facility] [address] [place] [phone] 07/04/2024 15:55:00 07/10/2024 19:05:03 Hyponatremia 48571437 E87.1 I10 Completed potassium phos/sodiu m phos tabs (5 days)Labs today at [facility].The n once weekly starting next Monday at our lab here.3 meals per day plus 1-2 Ensure.Flu ids when thirsty.Co ntinue on salt pills. Crohn's disease 64128892 K50.[address] Diaz not contracted with new insurance. Needs referral to new provider. New referral routed to [facility] in [place]. Anemia 524679970 D64.[address] ct anemia of chronic disease.re check iron levels, consider stopping iron pending results. Essential hypertension 78731151 I10 Continue 100 mg losartan and 5 mg amlodipine Continue home BP readings which have been looking good.BP goal is less than 140/90. Lumbar spondylosis 01687 0009 M47.896 Call [facility] diagnostic imaging to schedule the MRI. Anxiety 73080400 F41.9 Likely PTSD from prolonged hospitaliz ations/kassi r .She has a name of a therapist in [place]. Encouraged to get reschedule d and call insurance to check on coverage. Dependent edema 93634478 4 R60.0 Improved.A dd spironolac tone for BP and swelling control.Re check labs in 1 week. Physical deconditioning 4944057411 9102 R68.89 Continue HH PT. Will transition to outpatient PT pending recovery. Referral for outpatient PT placed to [facility] PT in [place] [phone]. At [facility] risk for falls 218329296 Z91.81 Continue HH PT. Will transition to outpatient PT pending recovery. [id number] YOKASTA ROMERO [facility] [address] [place] [phone] 07/22/2024 18:08:14 08/01/2024 11:51:05 Paronychia of finger 115510120 L03.019 Seen at [facility] 07/19 for finger infection. Was given Bactrim at [facility], allergic and had stomach upset, diarrhea. Was told by Brenda Yancey to stop Bactrim on Monday. Plan: Doxycyclin e 100mg BID x 5 days since already took 2 days Bactrim. 1. Home Care:- Soak the affected finger or toe in warm, soapy water for 20 minutes, 2-3 times a day.- Apply an over-the-c ounter antibiotic ointment if there is no drainage.- Keep the area clean and covered with a bandage if necessary. 2. When to Seek Medical Attention: - If symptoms worsen or do not improve after a few days of home treatment. - If there is significan t swelling, redness, or fever.- If there is a large amount of pus or drainage. 3. Medical Treatment: - A healthcare provider may need to drain any abscess if present. Hyponatremia 40081873 E8 7.1 Current level 124. Taking sodium tabs as prescribed . Reminded to get labs drawn Wed. Discussed with Brenda Yancey PCP, thinks low sodium may have been dt Bactrim. Bactrim was DC'd. Chronic low back pain 27 1028486 M54.50 Was managed with Gabapentin . Stopped for a few days with low sodium. Told ok to restart Gabapentin . Discussed plan with Brenda Yancey PCP and she ok'ed plan to restart gabapentin , thinks low sodium may have been dt Bactrim. [id number] Amy Yancey, BARBARA, S [facility] [address] [place] [phone] 08/01/2024 12:56:41 08/01/2024 15:48:33 Impairment of balance 482598829 R26.89 Has referral to start outpatient PT to [facility] - is on wait list. Left side sciatica 07341 26119 78867 M54.32 Improved.Griselda stewart on referral to [facility] - PHYSIATRY: , Chronic low back pain 27 2776417 M54.50 Taking gabapentin and occasional tramadol. Hyponatremia 25862469 E8 7.1 I10 Labs with normal sodium yesterday. Continue the sodium tablets twice daily.Cont inue to moderate fluid intake, off diuretics. Continue with labs every 1-2 weeks. Crohn's disease 67501435 K50.90 Scheduled with GI at [facility] Dr. Winter Nov 04 Anemia 760377042 D64.9 Stable on recent labs. Continue to monitor q 2-3 months. Essential hypertension 34362496 I10 Continue 100 mg losartan and 5 mg amlodipine Continue home BP readings.B P goal is less than 140/90. Lumbar spondylosis 26251 0009 M47.896 Call [facility] diagnostic imaging to schedule the MRI. Anxiety 38321313 F41.9 Likely PTSD from prolonged hospitaliz ations/kassi r .She started with therapist and already discharged ?? Dependent edema 78384424 4 R60.0 Improved.A dd spironolac tone for BP and swelling control.Re check labs in 1 week. Physical deconditioning 5386366353 9102 R68.89 Start outpatient PT. At [facility] risk for falls 587038239 Z91.81 Continue PT. Will transition to outpatient PT pending recovery. Chronic paronychia 4008 L03.90 Finger - improved.P ick up an antifugnal cream (Athlete's foot cream) and apply twice daily to the area for 1-2 weeks. Hyperkalemia 27492847 E8 7.5 Recheck labs today.Samp azul from yesterday hemolyzed. [id number] Amy Yancey, BARBARA, S [facility] [address] [place] [phone] 09/12/2024 13:11:43 09/12/2024 16:23:51 Impairment of balance 313401967 R26.89 Has referral to start outpatient PT to [facility] - is on wait list.Reque sting reroute of referral to [facility] PT. Left side sciatica 01237 89409 20597 M54.32 Improved but not resolved.Griselda stewart on referral to [facility] - PHYSIATRY: . Chronic low back pain 27 1724700 M54.50 Taking gabapentin and occasional tramadol.Griselda stewart on referral to [facility] - PHYSIATRY: . Hyponatremia 93220519 E8 7.1 I10 Continue the sodium tablets twice daily.Cont inue with moderate fluid intake, off diuretics. Continue with labs every 1-2 weeks. Crohn's disease 93131292 K50.90 Scheduled with GI at [facility] Dr. Moy Sylvester 6th Essential hypertension 51452076 I10 Stop losartan due to ongoing elevated potassium levels.We' ll have you double the amlodipine - up to 10 mg - take 2 tablets at the same time. Monitor for edema.Cont inue to check BP at home twice per day. Bring your home blood pressure and your blood pressure to your follow up visit.Labs today and again in 1 week ()Mihir Nguyen back on Monday for blood pressure check. Lumbar spondylosis 13971 0009 M47.896 Check on referral to [facility] - PHYSIATRY: . Physical deconditioning 7319907424 9102 R68.89 Start outpatient PT. At [facility] risk for falls 382407567 Z91.81 Start outpatient PT. Hyperkalemia 21010749 E8 7.5 Stop losartan due to ongoing elevated potassium levels.We' ll have you double the amlodipine - up to 10 mg - take 2 tablets at the same time. Monitor for edema.Cont inue to check BP at home twice per day. Bring your home blood pressure and your blood pressure to your follow up visit.Labs today and again in 1 week ()Mihir Nguyen back on Monday for blood pressure check. I have also sent a referral to nephrology at [facility] in [place] to get their opinion on your sensitive kidneys. Candidal intertrigo 2661 10962 B37.2 Perineum - recheck at follow up. Neoplasm o f uncertain behavior of skin 50303677 D48.5 Right knee - recheck at follow up visit in 1 month. Wart? Consider biopsy. [id number] YOKASTA SAUCEDA [facility] [address] [place] [phone] 09/20/2024 13:16:32 09/25/2024 14:21:05 Hyperkalemia 92734564 E87.5 Your potassium has come down to 5.3Stay off the losartanLa bs again in 1 week (next )Y ou have an appointmen t with nephrology in October Hyponatremia 74963653 E8 7.1 I10 Continue the sodium tablets twice daily.Cont inue with moderate fluid intake, off diuretics. Continue with labs every 1-2 weeks. Essential hypertension 50572354 I10 Your blood pressure today is still above goal of 140/90.You did not tolerate 10mg of amlodipine due to leg swelling and how it made you feel.I've ordered a new blood pressure medication called diltiazem. I'd like you tocontinue amlodipine 5mguntil you fern picker the new med, then stop amlodipine .Start diltiazem 120mg once daily.We will reassess your blood pressure next week.Cristino nue to check BP at home twice per day. Bring your home blood pressure and your blood pressure to your follow up visit.I am going to discuss clonidine as a second blood pressure medication option with [place] - we will let you know if a new order is placed.Fol low up in 1 weeks after your next set of labs. Blepharitis 99407591 H01 .009 Apply warm compress to eyes every night for 10 minutes, followed by eyelid massage.Da rosina lid scrubs with baby shampoo can also help.Prese rvative-fr ee eye drops can be used as often as needed. Bilateral hearing loss 80069307 H91.93 Saline spray and saline rinse daily to encourage drainage of eustachian tubes.Flut icasone twice daily for 2 weeks to encourage decompress ion. Lumbar radiculopathy 128 044764 M54.16 Chronic, stable.Req uests reroute of referral to PT- done 09/12.Advi sed to call to schedule. [id number] AGUSTIN JOSEPH, [facility] [address] [place] [phone] 10/15/2024 19:01:41 10/16/2024 17:53:44 Fatigue 78220813 R53.83 pale, sx anemia.Delaney ck CBC, TSH, B12. Intermitte nt confusion 791113915 R41.0 Likely multifacto rial: UTI, possible dehydratio n, emotional stress- UA positive for infection- Plan:* Initiate oral antibiotic s x 5 days* Follow-up Monday if not improving* Additional labs to evaluate for anemia Acute urin mackenzie tract infection 636330057 N39.0 Acute UTI, uncomplica tedNo fever or chills, No CVAT, no UTI within last year.Exam findings and treatment options discussed. Urine dipstick:+ Leuks, + Nitrates.L abs: urine sent for culture.St art empiric abx.2- Nitrofuran toin 100 mg by mouth twice a day x 5 days. Take with food. Increase hydration. OTC NSAIDs/Tyl enol prn fever or pain.Retur n to clinic for worsening symptoms, failure to improve, and as needed. Essential hypertension 41732583 I10 - Currently on amlodipine - Has not started prescribed diltiazem- Plan:* Continue current regimen* Defer medication changes until stable Eating disorder 21309192 F50.9 long standing per patient, thinks she probably has anorexia, struggles to eat regular meals for fear of gaining weight. very concerned. Struggling to keep electrolyt es managed.- Currently taking nutritiona l supplement s BID- Plan:* Follow-up with Wendy after holidays* Consider nutritioni st referral [id number] Amy Yancey, BARBARA, S [facility] [address] [place] [phone] 10/28/2024 15:54:48 10/29/2024 14:45:32 Altered mental status 709762458 R41.82 Improved since stopping gabapentin . Likely exacerbate d by reduced kidney function, low glucose. Come for labs in 1 week. Keep follow up with Wendy on Nov 05. Anemia 922325060 D64.9 Worsened at time of discharge with CBC h/h 8.2/25.3, plt 123.Prior labs 10/15/: h/h 10.0/30.1 which was stable. B-12 level 10/15 elevated at 1326. Iron studies last checked 07/23 were normal. Thrombocyt openic disorder [id number] D69.6 Mild. Recheck pending. Chronic hyperkalemia 407 22445 E87.5 Pending nephrology consult Nov 18.Hospi oneil ordered lokelma but has not started it yet. Uremia [id number] N19 Noted on discharge paperwork. Not noted how high creatinine was in hospital records and I don't have copy of ER notes. However, 10/15 labs with creatinine 1.17. Labs at time of discharge with creatinine 0.7 which is baseline. Hyponatremia 76371489 E8 7.1 I10 Continue the sodium tablets twice daily.Cont inue with moderate fluid intake, off diuretics. Continue with labs every 1-2 weeks pending nephrology consult in later October. Hospital started citalopram . Needs close monitoring for worsened hyponatrem ia. Ileostomy present 342494 002 Z93.2 Reports normal output Discussed nutrition - encouraged focus on protein and healthy fats in diet. Discussed that Nutrition supplement s are meant to be used between meals not as a meal replacemen t. Crohn's disease 36805321 K50.90 Scheduled with GI at [facility] [address]. Winter Nov 04 Essential hypertension 83038838 I10 Continue to monitor blood pressure regularly. Hold off on starting the carvedilol at this time.If your blood pressure, is consistent ly above 140/90 at home in another week, plan to start the carvedilol . Candidal intertrigo 2661 99931 B37.2 Perineum - resumed regular use of nystatin cream twice daily for 2-3 weeks. Rashad to help apply. Recurrent major depression 50615252 F33.9 Hospital started citalopram . Needs close monitoring for worsened hyponatrem ia. [id number] WENDY NORRIS [facility] MAIN OFFICE [address] [place] [address] [phone] 11/05/2024 17:12:51 11/11/2024 18:03:28 Hyponatremia 32790369 E87.1 I10 Continue the sodium tablets twice daily.Cont inue with moderate fluid intake, off diuretics. Continue with labs as discussed Chronic hyperkalemia 407 30126 E87.5 - K 6.2 on 11/04/24, concern for increase since then; sinus bradycardi a (47), peaked T waves in V3- Discussed serious risks of prolonged hyperkalem ia including fatal arrhythmia s, cardiac arrest- On day of visit, plan was to go straight to [facility] to start Lokelma CASSIDY, then check labs on Wed AM- I then called [facility] later on the evening of 11/05 and learned she was not able to pick this up since it requires a PA- Since unable to lower potassium overnight, called [facility] and advised them to go to the ER- Called ED and gave handoff to physician Altered mental status 41 6564298 R41.82 Improved since stopping gabapentin .Likely exacerbate d by reduced kidney function, low glucose.Sp eech slow, query depression vs altered LOC vs chronic malnutriti onReferred to ER as above Essential hypertension 72478371 I10 130/80 in clinic todayHold off on starting the diltiazem at this time. Anemia 772665942 D64.9 Labs on 11/04:Platel ets improved, now 346Hgb 9/Hct 26.8B-12 level on 10/15 elevated at 1326.Iron studies last checked 07/23 were normal. Thrombocyt openic disorder 156558632 D69.6 Mild. Recheck pending. Uremia 57716896 N19 Noted on discharge paperwork. Not noted how high creatinine was in hospital records and I don't have copy of ER notes. However, 10/15 labs with creatinine 1.17. Labs at time of discharge with creatinine 0.7 which is baseline. Ileostomy present 885026 002 Z93.2 Reports normal outputDisc ussed nutrition - encouraged focus on protein and healthy fats in diet.Discu ssed that nutrition supplement s are meant to be used between meals not as a meal replacemen t. Crohn's disease 20230427 K50.90 Saw MD Winter on 11/04No mention in notes of potential for Crohn's to be implicated in electrolyt e imbalances , will attempt a peer to peer to discuss. Recurrent major depression 64185463 F33.9 Hospital initiated citalopram .Has not yet started or picked this up - plans to do so on 11/05Needs close monitoring for potential to worsen hyponatrem ia. Sinus bradycardia 333288 05 R00.1 HR 47Peaked t waves in P9Trlcoxrx d QTcMeets criteria for hyperkalem ic emergency protocol since unable to lower K on day of visit --> referred to EDPossible bradycardi a is related to low body weight/AN Underweight 157464031 R6 3.6 16 pound weight loss since 4BMI 19.3, down from 22.7Discus sed habits and feelings around food; defer in depth conversati on to future visit.Uncl ear if anorexia nervosa or self-negle ct related to depression , disability [id number] YOKASTA SAUCEDA [facility] MAIN OFFICE [address] [place] [address] [phone] 11/29/2024 16:16:29 12/02/2024 14:36:18 Hyponatremia 18713949 E87.1 I10 - Na 120s in ED this week, now exhibiting s/s metabolic encephalop athy- Advised to go to ER- Denies polydipsia , oliguria;- query cerebral salt wasting w hx encephalit is, sodium loss in stool- Risk for seizures, cerebral edema due to electrolyt e abnormalit ies- Continue sodium tablets as prescribed Anorexia nervosa 3319538 8 F50.00 - Chronic weight loss, hypoglycem ia, hyperkalem ia- Unclear if cause of electrolyt e anomalies or exacerbati ng- Untreated to date- Would benefit from inpatient treatment when stable Hypoglycemia 795969988 E 16.2 - Calorie restrictin g Altered mental status 41 4746924 R41.82 - Recurrent episode, concerning for cerebral edema/hypo natremic encephalop athy- Hypoglycem ia, hyponatrem ia, fluid shifts, calorie restrictio n, altered kidney function contributi ng- Advised to go to ER; spouse and pt verbalize understand ing- Reviewed risk of delayed care including: seizures, coma, arrhythmia , cardiac arrest- Handoff given to 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 - TSH 10.4, T4 1.14 in September [id number] YOKASTA SAUCEDA [facility] MAIN OFFICE [address] [place] [address] [phone] 12/20/2024 15:48:48 12/23/2024 16:58:52 Renal tubular acidosis 7539454 N25.89 - Recurrent electrolyt e imbalances - 12/17: potassium 5.7, BUN/Cr 75, CO2 16- CMP today, cystatin c- Continue serial labs q3H- Continue sodium replacemen t 1gm TID- Initiate Lokelma on Monday Chronic hyperkalemia 407 87567 E87.5 - K 5.7 on 12/17/24, 4 days post-disch arge- Kayexelate is NOT indicated for chronic use and is contraindi cated in Crohn's patients due to risk for intestinal ischemia/n ecrosis- Lokelma not yet started; PA approved but deductible $800- Called [facility] pharmacist who ordered Lokelma, it should be ready on Monday- Rashad says he will pick this up, understand s the cost Chronic hyponatremia 503 41863 E87.1 - continue NaCl 1g TID daily- serial labs q3d Hospital i npatient stay within past 30 days [id number] 106 Z76.89 - Sent to [facility] ER for AMS, aphasia in clinic- s/p poss sz activity with resp arrest followed by PEA arrest secondary to hypoxia, CPR x 10mins with- s/p mass transfusio n protocol on admission to [facility] Neuro ICU, required inotropes, initialcar diomyopath y likely secondary to shock, further EEG neg for sz activity- Inpt consults with palliative care, psychiatry , cardiology , neurology, human resource manager, SW, PT, OT At [facility] ed risk of emergency hospital admission [id number] Z91.89 - LACE score: 14 (high), HOSPITAL score: 8 (high)- Establishe d pattern of electrolyt e disturbanc es and altered mental status resulting in repeat ED and hospital admissions over the last year- Most recent hospitaliz ation with in-hospita l cardiac arrest, ICU stay- Discharged from [facility] with labs WNL; 3 days post-disch arge labs are again deranged- I suspect unhealthy patterns around nutrition are exacerbati ng renal tubular acidosis, Crohn's; until these are addressed, and proper medication s can be accessed to manage potassium, readmissio n is highly likely- Palliative care consulted with Rashad and Bailey at [facility]- Both are receptive to referral to local [facility] service to continue conversati on- referral placed Prerenal azotemia 920815 001 N25.9 - BUN/Cr 41 pre hospitaliz ation, now 75 post hospitaliz ation- dehydratio n, poor PO intake, catabolism in the home setting Wernicke's disease 04333 002 E51.2 - continue thiamine 100mg once daily- continue copper 8mg once daily for week 1, then 6mg once daily in week 2, then 4mg once daily in week 3, 2mg once daily for week 4 then stop Crohn's disease 46209646 K50.90 - Last saw MD Winter on 11/04, describes as in clinical remission- No mention in notes of potential for Crohn's to be implicated in electrolyt e imbalances , I sent an update to alison garcia when Bailey was admitted- stable ostomy output 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 [id number] 07383 T88.8XXA - + sleep disturbanc es, anxiety, re-experie ncing, intrusive images, emotional lability- I suspect she is not taking mirtazapin e because she knows it increases appetite- Reviewed use of mirtazipin e for both sleep, mood and appetite- Offered option to initiate a different medication for mood support; defers for now- Refer to outpatient behavioral health- Consider EMDR therapy for trauma processing - Follow up in 2 weeks to assess response Advance care planning 71 6915965 Z71.89 - Discussed purpose of POLST form- Given new POLST to take home and review- LACE score: 14 (high), HOSPITAL score: 8 (high)- Establishe d pattern of electrolyt e disturbanc es and altered mental status resulting in repeat ED and hospital admissions over the last year- Most recent hospitaliz ation with in-hospita l cardiac arrest, ICU stay- Discharged from [facility] with labs WNL; 3 days post-disch arge labs are again deranged- I suspect unhealthy patterns around nutrition are exacerbati ng renal tubular acidosis, Crohn's; until these are addressed, and proper medication s can be accessed to manage potassium, readmissio n is highly likely- Palliative care consulted with Rashad and Bailey at [facility]- Both are receptive to referral to local [facility] service to continue conversati on- referral placed Difficulty eating 894796 000 R63.30 - Psychiatry consulted at [facility], did not endorse an ED diagnosis- Hx and patterns described in our visits are very consistent with anorexia nervosa though there could be considerat ion of ARFID as there are maladaptiv e behaviors with respect to management of her ostomy, Crohn's triggers. 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 Can discuss further with palliative care.- Will try to obtain sample of Vee24 Physical deconditioning [id number] 9102 R68.89 - Post-arres t and post-ICU stay acute deconditio pascale overlying roughly 1.5 year pattern of declining mobiilty, weight loss, loss of muscle bulk- Shey and Signature declined referral from CW at [facility]- Refer to local PT for reconditio pascale [id number] YOKASTA SAUCEDA [facility] MAIN OFFICE [address] [place] [phone] 01/03/2025 16:58:53 01/06/2025 14:11:27 Hospital inpatient stay within past 30 days [id number] 106 Z76.89 - [facility] ER 11/29/24 for AMS, aphasia in clinic; [facility] NeuroICU, dc'd on 12/13- s/p poss sz activity with resp arrest followed by PEA arrest secondary to hypoxia, CPR x 10mins with- s/p mass transfusio n protocol on admission to [facility] Neuro ICU, required inotropes, initialcar diomyopath y likely secondary to shock, further EEG neg for sz activity- Inpt consults with palliative care, psychiatry , cardiology , neurology, human resource manager, SW, PT, OT At [facility] ed risk of emergency hospital admission [id number] Z91.89 - LACE score: 14 (high), HOSPITAL score: 8 (high)- Establishe d pattern of electrolyt e disturbanc es and altered mental status resulting in repeat ED and hospital admissions over the last year- Most recent hospitaliz ation with in-hospita l cardiac arrest, ICU stay- Discharged from [facility] on 12/14 with labs WNL; 3 days post-disch arge labs again deranged- Now with two ED admissions since for hypoglycem ia- I suspect unhealthy patterns around nutrition are exacerbati ng renal tubular acidosis, Crohn's; until these are addressed, and proper medication s can be accessed to manage potassium, readmissio n is highly likely- Referred to palliative care at 12/20 clinic visit Renal tubu lar acidosis 2732444 N25.89 - Recurrent electrolyt e imbalances - Cystatin C 1.32, estimated GFR by CKD-EPI Cystatin C is 49- Continue serial labs q3D- Continue sodium replacemen t 1gm TID- Continue lokelma once daily Post inten sive care unit syndrome [id number] 78140 T88.8XXA - + sleep disturbanc es, anxiety, re-experie ncing, intrusive images, emotional lability- I suspect she is not taking mirtazapin e because she knows it increases appetite- Reviewed use of mirtazipin e for both sleep, mood and appetite- Met with [facility] this week, has upcoming appt on 01/13, found it therapeuti c- Referred to Behavioral Health at 12/20 visit- Consider EMDR therapy for trauma processing - Follow up in 1 week Crohn's disease 48208115 K50.90 - Last saw gastroente rology on 11/04, described as in clinical remission- stable ostomy output Chronic hyperkalemia 407 04844 E87.5 - K 6.4 from 12/29 to 12/31; down to 5.5 on 01/02.- Recurrent due to RTA and restricted oral intake, possible other endocrine mechanisms at play with Crohn's and hypoglycem ic pattern this week; not likely adrenal insufficie ncy w normal AM cortisol- Continue Lokelma once daily- Continue serial labs Q3D Chronic hyponatremia 503 43641 E87.1 - Na stable since discharge from [facility]- If hyponatrem ia recurs while on replacemen t tx, consider SIADH via Crohn's mechanism- continue NaCl 1g TID daily- serial labs q3d Wernicke's disease 68186 002 E51.2 - continue thiamine 100mg once daily- continue copper 8mg once daily for week 1, then 6mg once daily in week 2, then 4mg once daily in week 3, 2mg once daily for week 4 then stop Difficulty eating 185904 000 R63.30 - improved intake this week, taking Ensure high protein twice a day plus meals- Rashad is keeping a food, blood pressure and blood sugar log- Will discuss GT further with palliative care. Subclinica l hypothyroidism 66756899 E02 - TSH 9.9, T4 1.14 on 01/02/25- Theoretica lly could be contributi ng to SIADH, hypoglycem ic episodes- Initiate levothyrox ine 25mcg once daily- Check TSH and T4 in 6 weeks Increased frequency of urination 625228195 R35.0 - Increased hydration this week w juice, water- no gluc on UA, normal SG Essential hypertension 08215678 I10 - 190/90, 175/90 on recheck in clinic today- Longstandi ng hypertensi on but after last hospitaliz ation was dc'd off amlodipine due to normal BP- Current numbers most likely reflect need to resume prior regimen- Continue carvedilol 3.125mg BID- Restart amlodipine 5 mg once daily- Check BP one hour after first dose of amlodipine - Call if systolic > 180 or diastolic > 100 sustained- Consider hydralazin e PRN at next visit if BP elevated after restarting amlodipine - Reviewed s/s reflecting need for 911 in hypertensi ve emergency Hypoglycemia 193871157 E 16.2 - Seen at ED 12/29, treated for hypoglycem ia and hyperkalem ia- BG 40 to 60, recurring- Insulin and c-peptide levels elevated - consider hyperinsul inemia- Unclear etiology: low/restri cted PO intake definitely contribute s but metabolic and endocrine etiologies possible, eg insulinoma - Blood sugars on upward trend this week with dietary modificati ons- Continue home glucose monitoring - Ordered glucose gel for hypoglyemi c episodes with glucose <70- Ordered continuous glucose monitoring kit with reader (no smartphone )- Encouraged eating protein with carbohydra roxie for better glucose control- Will refer to endocrinol ogy and obtain imaging of pancreas to r/o insulinoma if persistent fluctuatio ns in blood glucose over next week- Follow up in 1 week Liver enzy mes level above reference range 561749566 R74.01 - Alk phos 218, AST 43, ALT 40 all down-trend ing in past week- C/w pattern of resolving cholestati c injury, possibly medication -induced vs cholangiti s- Continue to trend [id number] YOKASTA SAUCEDA [facility] MAIN OFFICE [address] [place] [address] [phone] 01/10/2025 17:02:09 01/13/2025 13:29:51 Expressive dysphasia 713236709 F80.1 - mild but notable at today's visit compared to 01/03- volume of speech loud- no current s/s delirium Essential hypertension 64264355 I10 - 170s/90s in clinic today- cortisol 19.9, slightly elevated during AM draw- Continue carvedilol 3.125mg BID though concerning as HR 49 today; this could also reflect reflexive bradycardi a- Options are somewhat limited for manage BP with other meds due to chronic hyperkalem ia though diltiazem or eplerenone are other options- It seems her hypertensi on may be mediated by an endocrine/ renal process - referred to [facility] on 01/08, has upcoming visit with nephrology - Considered hydralazin e for spot-treat ment however the complexity of Bailey's care is requiring a lot of Rashad- Reviewed s/s reflecting need for 911 in hypertensi ve emergency, seek treatment if BP sustained systolic > 180 or diastolic > 100, reviewed s/s stroke Insulin le neri above reference range 307921853 R89.1 - insulin 27.8, proinsulin also elevated at 13.8- with hypoglycem ic episodes, suggestive of hyperinsul inemia- referred to [facility] on 01/08- US pancreas to evaluate for insulinoma Hypoglycemia 112014856 E 16.2 - insulin and proinsulin levels elevated- low/restri cted PO intake definitely contribute s but metabolic and endocrine etiologies possible, eg insulinoma - Blood sugars on upward trend this week with improved PO intake, spouse keeping food log- CGM in place, Rashad aware of how to use reader- Has glucose gel for hypoglyemi c episodes with glucose <70- Ordered continuous glucose monitoring kit with reader (no smartphone )- Encouraged eating protein with carbohydra roxie for better stability- Avoid vitamin C when possible as it may interfere with CGM readings- Referred to endocrinol luis e 01/08 Impaired cognition 79261 6002 R41.89 - Recurrent episodes, 7 ED admits for confusion in the last 2 months- Now concerning for non-revers ible cognitive decline- Most recently these episodes occur with new onset hypoglycem ia- Previously , AMS consistent with episodes of hyponatrem ia, hyperkalem ia- Two prolonged hospitaliz ations with intubation in the last 2 years (09/2023 at [place] and 11/29/24 [facility]), 1 episode of CPR x 10 mins, and recurrent ED visits for acute metabolic encephalop athy- Referred to Palliative Care in November; referred to endocrinol luis e 01/08/25- Stat referral to neurology being placed to evaluate for AMS vs non-revers ible cognitive decline- Continue sodium tablets three times daily- Caregiver to monitor mental status closely [id number] YOKASTA SAUCEDA [facility] MAIN OFFICE [address] [place] [phone] 01/13/2025 15:32:41 2025 15:18:13 Expressive dysphasia 645020709 F80.1 - improved from that observed on 01/10 visit- volume of speech loud- no current s/s delirium Essential hypertension 51601953 I10 - 140/90s to 170s/80s in clinic today w both child and adult cuffs- cortisol 19.9, slightly elevated during AM draw- Continue carvedilol 3.125mg BID though concerning as HR 49 today; this could also reflect reflexive bradycardi a w hypertensi on- Options are somewhat limited for manage BP with other meds due to chronic hyperkalem ia though diltiazem or eplerenone are other options- It seems her hypertensi on may be mediated by an endocrine/ renal process - referred to [facility] on 01/08, has upcoming visit with nephrology - Considered hydralazin e for spot-treat ment however the complexity of Bailey's care is requiring a lot of Rashad and rebound hypertensi on is a concern- Reviewed s/s reflecting need for 911 in hypertensi ve emergency, seek treatment if BP sustained systolic > 180 or diastolic > 100, reviewed s/s stroke Insulin le neri above reference range 168193542 R89.1 - insulin 27.8, proinsulin also elevated at 13.8- with hypoglycem ic episodes, suggestive of hyperinsul inemia- referred to endo on 01/08- pancreas to evaluate for insulinoma Hypoglycemia 270738545 E 16.2 - CGM reading 69 during visit today; after snack, tasha to 85, then dropped to 68 within 15 minutes.- insulin and proinsulin levels elevated on recent labs- low/restri cted PO intake definitely contribute s but metabolic and endocrine etiologies possible, eg insulinoma - Blood sugars on upward trend this week with improved PO intake, spouse keeping food log- CGM in place, Rashad aware of how to use reader- Encouraged eating protein with carbohydra roxie for better stability- Avoid vitamin C when possible as it may interfere with CGM readings- Referred to endocrinol ogy 01/08- pancreas pending Impaired cognition 0816063 9142 R41.89 - Recurrent episodes, 7 ED admits for confusion in the last 2 months- Now concerning for non-revers ible cognitive decline- Most recently these episodes occur with new onset hypoglycem ia- Previously , AMS consistent with episodes of hyponatrem ia, hyperkalem ia- Two prolonged hospitaliz ations with intubation in the last 2 years (09/2023 at [place] and 11/29/24 [facility]), 1 episode of CPR x 10 mins, and recurrent ED visits for acute metabolic encephalop athy- Referred to Palliative Care in November; referred to endocrinol [place] 01/08/25- Stat referral to neurology previously placed to evaluate for AMS vs non-revers ible cognitive decline- Continue sodium tablets three times daily- Caregiver to monitor mental status closely Hernia of anterior abdominal wall 281120810 K43.9 - stable, no s/s incarcerat ion- site of prior hernia- defer surgical referral today as managing multiple speciality consults- obtain US abdominal wall- Reviewed s/s incarcerat ion, obstructio n Liver enzy mes level above reference range 290728103 R74.01 - Alk phos 218, AST 43, ALT 40 all down-trend ing in past week- C/w pattern of resolving cholestati c injury, possibly medication -induced vs cholangiti s- Continue to trend CMP Q3D- US liver [id number] YOKASTA SAUCEDA [facility] MAIN OFFICE [address] [place] [phone] 01/20/2025 16:26:26 01/21/2025 19:24:17 Vomiting 584862240 R11.10 Pt presented for visit but due to altered mental status, vomiting and diarrhea, EMS was called for transfer to the ER. Differenti al includes metabolic encephalop athy, viral gastroente ritis, bowel obstructio n (less likely), electrolyt e imbalance (primary or secondary to n/v). Handoff given to EMS at 14:12. Diarrhea 87763822 R19.7 Pt presented for visit but due to altered mental status, vomiting and diarrhea, EMS was called for transfer to the ER. Differenti al includes metabolic encephalop athy, viral gastroente ritis, bowel obstructio n, electrolyt e imbalance (primary or secondary to n/v). Handoff given to EMS at 14:12. Altered mental status 41 9210838 R41.82 - Aphasia pronounced , lethargic; concerning for cerebral edema/hypo natremic encephalop athy- Hypoglycem ia, hyponatrem ia, fluid shifts, calorie restrictio n, altered kidney function at baseline; may be compounded by viral gastroente ritis or symptoms may reflect neurologic source of vomiting.- Sent to ER via EMS [id number] YOKASTA [place] [facility] MAIN OFFICE [address] [place] [address] 01/30/2025 15:54:31 01/31/2025 13:19:52 Essential hypertension [id number] I10 Carvedilol 3.125 mg twice a day was discontinu ed after hypovolemi a and bradycardi a from dehydratio n after norovirus. Blood pressure has returned to an elevated state at home without medication (170s/100s ). HR in 60s today in clinic. Plan:- Take carvedilol 3.125 mg once daily + amlodipine 5 mg daily.- Continue monitoring blood pressure and heart rate at home. Aim for blood pressure less than 140/90 mmHg and heart rate between 60 and 100 beats per minute.- Follow up in approx 1-2 weeks. Cellulitis of right lower limb [id number] L03.115 Cellulitis on the right irce, currently being treated with antibiotic s (cefuroxim e 500 mg twice a day x7 days given by walk-in clinic on Monday01/28/25). Walk-in clinic discontinu ed the Keflex that was prescribed by the hospital prior to discharge. Mild improvemen t per patient with this current antibiotic . Plan:- Continue with cefuroxime 500 mg twice a day as ordered.- Monitor for improvemen t and report any adverse effects. If worsening of symptoms, please seek care sooner than scheduled follow up.- Elevate the foot regularly to help reduce swelling. Desire to avoid diuretics unless necessary, to prevent complicati ons with blood pressure and potassium levels. Hyperkalemia 01852624 E8 7.5 Potassium level fluctuatio ns, requiring careful monitoring and management . Hypokalemi a noted in hospital stay, however this could be due to being given two packets per day in hospital. lab values showed stabilized potassium (K at 5.1) with one packet daily of Lokelma 10 mg. Plan:- Recommend continuati on of this medication and continue PCP's plan.- Provided a one month refill of this medication as you only have one packet left.- Follow up to be discussed in 1-2 weeks. Hypovolemic shock 562018 09 R57.1 Patient presented for follow up from hospitaliz ation after shock from dehydratio n due to norovirus. Patient was adequately hydrated with IV fluids and was given electrolyt e replacemen t as appropriat e. Patient reports continued stabilizat ion of bowel movements and hydration status. Return to baseline mentation. No longer experienci ng hypotensio n or severe bradycardi a. [id number] YOKASTA SAUCEDA [facility] MAIN OFFICE [address] [place] [phone] 02/11/2025 16:36:43 02/12/2025 14:28:34 Hyponatremia 21468564 E87.1 I10 - Na stable since maintainin g sodium replacemen t- Continue sodium tablets as prescribed , 1gm TID, refilled Chronic hyperkalemia 407 52181 E87.5 - Persistent , K+ on 02/10 5.9- RTA- Continue daily Lokelma 10mg- Reordered per advice of [place] pharmacist so PA can be initiated- Rashad needs to call [employer] Services [phone] to make sure Medicareis added to his [place] - staff to call him Hypoglycemia [id number] E 16.2 - Better control but still with very low AM BG readings- insulin and proinsulin levels elevated on recent labs- advised to call Endocrinol luis e to schedule - referred on 01/08/25- low/restri cted PO intake definitely contributi ng but metabolic and endocrine etiologies possible, eg insulinoma - Spouse ensuring adequate PO intake and providing glucose rescue when needed- Continues to wear CGM- Encouraged eating protein with carbohydra roxie for better stability- Avoid vitamin C when possible as it may interfere with CGM readings - multivitam in held- US pancreas had to be reschedule d due to hospitaliz ation Essential hypertension 55362974 I10 - 140/80s in clinic, at home higher readings up to 180/90.- Rashad is going to order a pediatric cuff- Continue carvedilol 3.125mg BID though wonder if masking hypoglycem ia symptoms- Options are somewhat limited for manage BP with other meds due to chronic hyperkalem ia; diltiazem is still an option- nephrology agrees to avoid ARB/ELINA, MRAs, and diuretics- It seems her hypertensi on may be mediated by an endocrine/ renal process - referred to Endo on 01/08 Hyperchloremia 25076050 E87.8 - chronic, secondary to renal tubular acidosis Cellulitis of right lower limb [id number] 8755627 L03.115 - likely smoldering cellulitis ; no fluctuance or bulging- consider DVT since symptoms began at end of hospitaliz ation for hypovolemi c shock- Wells score 4- US Doppler RLE ordered- HX MSSA sepsis, multiple allergies to antibiotic s incl penicillin s, bactrim, fluoroquin olones, vanco- Competed cefuroxime course - this provided some MSSA and strep pyogenes coverage but no MRSA- start clindamyci n for MRSA and anerobic coverage; if no improvemen t can then add doxycyclin e- called Rashad at 09:10 to relay plan, verbalizes understand ing Liver enzy mes level above reference range 243234844 R74.01 - Alk phos, AST and ALT all elevated on last labs- C/w pattern of resolving cholestati c injury, possibly medication -induced vs cholangiti s- Continue to trend CMP Q3D- US liver pending [id number] WENDY NORR[facility] MAIN OFFICE [address] [place] [phone] 02/14/2025 15:54:57 02/14/2025 19:12:54 Cellulitis of right lower limb [id number] L03.115 - likely smoldering cellulitis ; no fluctuance or bulging- US negative for abscess or clot- HX MSSA sepsis, multiple allergies to antibiotic s incl penicillin s, bactrim, fluoroquin olones, vanco- Competed cefuroxime course - this provided some MSSA and strep pyogenes coverage but no MRSA- started clindamyci n yesterday but has not received full dose; advised to go to pharmacy and fern picker 150mg capsules for MRSA and anerobic coverage; if no improvemen t can then add doxycyclin e Insulin le neri above reference range 831900811 R89.1 - insulin 27.8, proinsulin also elevated at 13.8- with hypoglycem ic episodes, suggestive of hyperinsul inemia- referred to endo on 01/08, needs to schedule- not a candidate for US pancreas due to need for fasting- MRI abdomen w and w/o contrast ordered previously to evaluate for insulinoma , needs to schedule 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 [id number] T88.8XXA - + sleep disturbanc es, anxiety, re-experie ncing, intrusive images, emotional lability- went to therapy once but not again though liked the therapist- encouraged to continue therapy Hypoglycemia 569341180 E 16.2 - Better control but still with very low AM BG readings- insulin and proinsulin levels elevated on recent labs- advised to call Endocrinol [place] to schedule - referred on 01/08/25- Spouse ensuring adequate PO intake and providing glucose rescue when needed- Continues to wear CGM- Encouraged eating protein with carbohydra roxie for better stability- Avoid vitamin C when possible as it may interfere with CGM readings - multivitam in held Chronic hyperkalemia 407 31562 E87.5 - Persistent , K+ 6 on 02/13 due to renal tubular acidosis- Administer one time dose lokelma 10mg in addition to regular PM dose, Rashad verbalizes understand ing- Continue daily Lokelma 10mg- I was unaware Bailey was taking naproxen BID - this may be contributi ng to increased potassium, advised to trial off or down to once a day- Reordered per advice of [place] pharmacist so PA can be initiated- Rashad needs to call [employer] Member Services to make sure Medicareis added to his [place] - staff to call him [id number] YOKASTA SAUCEDA [facility] MAIN OFFICE [address] [place] [phone] 02/25/2025 15:50:17 02/27/2025 16:00:53 Cellulitis of right lower limb [id number] L03.115 - improved- area concerning for fluctuance , monitor- US neg for DVT on 02/13- HX MSSA sepsis, multiple allergies to antibiotic s incl penicillin s, bactrim, fluoroquin olones, vanco- Antbx to date: keflex (not completed) --> cefuroxime --> clindamyci n (not completed) --> IV cefepime- Follow up in 1 week- Check CBC to assess WBC Sepsis 17918660 A41.9 - resolved- blood cultures from negative to date- high risk presentati on: leukopenic , hypothermi c secondary to disabled immune response- monitor closely, high risk for recurrence - follow up in 1 week Hypoglycemia 192315513 E 16.2 - Better control, AM readings 60s instead of 40s- FreeStyle Beba 3 ordered by palliative care for improved notificati on of low events- insulin and proinsulin levels elevated on recent labs- still not scheduled with Endocrinol luis e (referred on 01/08/25)- referral rerouted today as STAT to Endocrinol [place]- Spouse doing a great job maintainin g adequate PO intake and providing glucose rescue when needed- Continue CGM- Avoid vitamin C when possible as it may interfere with CGM readings - multivitam in held Chronic hyperkalemia 407 30883 E87.5 - K+ 5.6 post discharge- Persistent , secondary to renal tubular acidosis, low PO intake/deh ydration/C rohn's- Continue Lokelma 10mg BID- Stay off naproxen- Reordered Lokelma on 02/11 per advice of [place] pharmacist so PA can be initiated- Rashad needs to call Medicare Member Services to make sure Medicareis added to his [place] Chronic hyponatremia 503 [id number] E87.1 - Na stable since discharge from [facility] on TID replacemen t- Continue NaCl 1gm TID- serial labs q3d At [facility] risk of emergency hospital admission [id number] Z91.89 - LACE score: 14 (high), HOSPITAL score: 8 (high)- Establishe d pattern of electrolyt e disturbanc es and altered mental status resulting in repeat ED and hospital admissions over the last year- cardiac arrest x 1, sepsis x 1, hypovolemi c shock x 1 in 2024- Renal tubular acidosis, Crohn's, disordered eating and poorly understood hypoglycem ic events contributi ng- Palliative care following [facility] hypothyroidism 60106946 E02 - TSH 9.9, T4 1.14 on 01/02/25- Theoretica lly could be contributi ng to SIADH, hypoglycem ic episodes- Initiate levothyrox ine 25mcg once daily- Check TSH with next CMP Essential hypertension 52142385 I10 - 140/80s in clinic, at home higher readings up to 180/90.- Continue to use pediatric cuff at home for BP- Continue amlodipine 5mg- Continue carvedilol 3.125mg BID; potentiall y masking hypoglycem ia symptoms- Options are somewhat limited for manage BP with other meds due to chronic hyperkalem ia; diltiazem is still an option- Continue to avoid ARB/ELINA, MRAs, NSAIDs and diuretics- Endocrinol ogy evaluation pending [id number] YOKASTA SAUCEDA [facility] MA[facility] OFFICE [address] [place] [phone] 03/07/2025 12:01:21 03/10/2025 15:34:49 Hypothermia not associated with low environmental temperature 5852389953 18470 R68.0 8512795 - Continue temperatur e monitoring with reliable thermomete r- Implement warming measures at home heating pad, warm fluids- emphasized value of wearing a hat for warmth at home- Pending endocrinol ogy consultati on at - CBC ordered today to evaluate WBC count- Return if mental status changes or severe symptoms develop Bradycardia 42043100 R00 .1 69209 - bradycardi c in 40s during ED admission while hypothermi c- consider secondary effect from elevated potassium and beta di- carvedilol discontinu ed- discussed impact on HR of blood sugar, temperatur e Labile sys temic arterial hypertension 9037876813 3255612 R09.89 1581828 - persistent 160-190s/9 0-110s- continue amlodipine 5mg- start doxazosin 1mg once daily at bedtime; for first dose take 0.5mg, then increase to 1mg once nightly.- discussed possible side effects of orthostati c hypotensio n- encouraged only twice a day BP monitoring - follow up in 1 week Chronic hyperkalemia 407 58401 E87.5 9813 - Persistent , secondary to renal tubular acidosis, low PO intake/[employer] hn's- Continue Lokelma 10mg BID- Stay off naproxen, ibuprofen- Lokelma approved through [employer] but Rashad has changed insurance again - asked him to call new insurance to see if a PA is needed Leukopenia [id number] D72. 819 [id number] - no records of recent visit in [place]- 02/17 visit presented with leukopenia and sepsis picture- check CBC Lymphadenitis 13607864 I 88.9 80512 - Improving- Continue compressio n stockings- May use Vaseline/A quaphor for skin care- Continue monitoring for signs of infection Cared for by partner [phone] [id number] Z74.9 [id number] - encouraged small trips for Rashad where Stella can be at home- increase amount of time, over time- explored sources of anxiety for both with constant caregiving and receiving- Palliative following At [facility] ed risk of emergency hospital admission [id number] Z91.89 [id number] - LACE score: 14 (high), HOSPITAL score: 8 (high)- Establishe d pattern of electrolyt e disturbanc es and altered mental status resulting in repeat ED and hospital admissions over the last year- cardiac arrest x 1, sepsis x 1, hypovolemi c shock x 1 in 2024- Renal tubular acidosis, Crohn's, disordered eating and poorly understood hypoglycem ic events contributi ng- Palliative care following Hypoglycemia 633353912 E 16.2 15443 - Better control, AM readings 60s instead of 40s- FreeStyle Beba 3 ordered by palliative care for improved notificati on of low events- insulin and proinsulin levels elevated on recent labs- still not scheduled with Endocrinol ogy (referred on 01/08/25)- needs to schedule with Endocrinol ogy- Spouse doing a great job maintainin g adequate PO intake and providing glucose rescue when needed- Continue CGM- Avoiding vitamin C when possible as it may interfere with CGM readings - multivitam in held [id number] YOKASTA SAUCEDA [facility] MAIN OFFICE [address] [place] [phone] 03/14/2025 15:56:35 03/18/2025 15:03:50 Hypothermia not associated with low environmental temperature 8813771215 49388 R68.0 3673191 - Temp measurable today in clinic, this is an improvemen t- Continue current warming measures- Monitor temperatur e regularly- Return to ED if mental status changes or severe hypothermi a develops Bradycardia 40158712 R00 .1 87688 - HR still low but improved: home median HR in 50-60s off beta di- Hypothermi a, hyperkalem ia still may contribute Labile sys temic arterial hypertension 8513496269 9283764 R09.89 1365244 - BP improved, mean 140-170s down from 160-180s SBP- Continue amlodipine 5mg, doxazosin 1mg at current doses- Continue home BP monitoring - Continue serial CMPs Chronic hyperkalemia 407 97455 E87.5 9813 - Persistent , K+ up to 6.2 earlier this week then improved to 5.1 on next CMP- Continue Lokelma 10mg BID- Order modified to include: For potassium level >5.5, administer 1 additional 10mg dose of Lokelma- Discussed with Rashad- Stay off naproxen, ibuprofen- Has good supply of Lokelma at present- Continue serial CMPs Leukopenia 98410979 D72. 819 [id number] - 02/17 visit presented with leukopenia and sepsis picture- resolved on CBC from 03/07- likely reflective of low reserves and chronic illness- repeat CBC in 1 month Lymphadenitis 92007530 I 88.9 95969 - Improving- Continue compressio n stockings- May use Vaseline/A quaphor for skin care- Continue monitoring for signs of infection Cared for by partner [phone] Z74.9 [id number] - Rashad and Stella had spent some time apart this week and it went well for both- increase amount of time, over time- explored sources of anxiety for both with constant caregiving and receiving- Palliative following At [facility] ed risk of emergency hospital admission 095199983 Z91.89 [id number] - LACE score: 14 (high), HOSPITAL score: 8 (high)- Establishe d pattern of electrolyt e disturbanc es and altered mental status resulting in repeat ED and hospital admissions over the last year- cardiac arrest x 1, sepsis x 1, hypovolemi c shock x 1 in 2024- Renal tubular acidosis, Crohn's, disordered eating and poorly understood hypoglycem ic events contributi ng- Palliative care following Hypoglycemia 039209963 E 16.2 79242 - Better control, AM readings 60s instead of 40s- FreeStyle Beba 3 form and CMN submitted 03/14- insulin and proinsulin levels elevated on recent labs- new referral to [facility]- Continue maintainin g adequate PO intake and providing glucose rescue when needed- Continue CGM- Continue avoiding vitamin C 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 89539036 - Referral to PT/OT for evaluation and treatment- Will transition from tramadol to hydrocodon e- Start hydrocodon e 5mg - acetaminop hen 325 mg Q6H PRN- Discussed caution with recent lightheade dness, increased risk for falls- Has discussed with palliative previously - Continue current non-pharma cological measures Parastomal hernia 227075 007 K43.5 2756690 - Stable but enlarged from prior evaluation - Referral to general surgery at [facility] for evaluation - Discuss conservati ve management options such as bracing, wraps- Stella is aware she is not a strong surgical candidate at this time and our priority is general stability Osteoarthr itis of joint of bilateral hands [id number] 17542 M19.041 M19.042 34254434 - chronic, bilateral- refer to hand OT [id number] YOKASTA SAUCEDA [facility] OFFICE [address] [place] [address] 03/21/2025 16:56:28 03/25/2025 14:18:11 Hypothermia not associated with low environmental temperature 1918199282 99930 R68.0 7548647 - Temp measurable today in clinic, this is an improvemen t- Continue current warming measures, wearing hats- Very sensitive to ambient temperatur es- Suspect central thermal dysregulat ion- Return to ED if mental status changes or severe hypothermi a develops Bradycardia 30487824 R00 .1 47773 - Home median HR in 50-60s off beta di Labile sys temic arterial hypertension 1154616980 0723354 R09.89 4346746 - BP improved, mean 140-170s down from 160-180s SBP- Continue amlodipine 5mg, doxazosin 1mg at current doses- Continue home BP monitoring - Continue serial CMPs- Likely need to increased doxazosin at next visit, Rashad to bring BP log Chronic hyperkalemia 407 36933 E87.5 9813 - K+ today 5.9; to take additional dose of Lokelma today, discussed in visit- Has needed 2 additional doses this week- Unclear if decreased PO intake or fluid intake or if because oversight on intake has been somewhat reduced with increased independen ce from one another- Continue Lokelma 10mg BID- For potassium level >5.5, administer 1 additional 10mg dose of Lokelma- Stay off naproxen, ibuprofen- Has good supply of Lokelma at present- Continue serial CMPs Leukopenia 91850338 D72. 819 [id number] - 02/17 visit presented with leukopenia and sepsis picture- resolved on CBC from 03/07- likely reflective of low reserves and chronic illness- repeat CBC in 1 month Lymphadenitis 61586174 I 88.9 29082 - Stable- Continue compressio n stockings- May use Vaseline/A quaphor for skin care- Continue monitoring for signs of infection Cared for by partner [phone] [id number] Z74.9 [id number] - Rashad and Stella had spent some time apart this week and it went well for both- increase amount of time, over time- explored sources of anxiety for both with constant caregiving and receiving- Palliative following At [facility] ed risk of emergency hospital admission 956891943 Z91.89 1581241580 - LACE score: 14 (high), HOSPITAL score: 8 (high)- Establishe d pattern of electrolyt e disturbanc es and altered mental status resulting in repeat ED and hospital admissions over the last year- cardiac arrest x 1, sepsis x 1, hypovolemi c shock x 1 in 2024- Renal tubular acidosis, Crohn's, disordered eating and poorly understood hypoglycem ic events contributi ng- Palliative care following Hypoglycemia 429695478 E 16.2 50324 - Better control, AM readings 60s instead of 40s- FreeStyle Beba 3 form and CMN submitted 03/14 - [facility] told them this was discontinu ed per manufactur er (Plus should still be available) - insulin and proinsulin levels elevated on recent labs- referred to [facility], still not scheduled- Continue maintainin g adequate PO intake and providing glucose rescue when needed- Having difficulti es obtaining refills of Beba 2 at [facility] due to supply issues- Plan to do BID blood sugar checks with glucometer until Monday when [facility] will have more in stock- Continue avoiding vitamin C 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 47496041 - Referred to PT/OT for evaluation and treatment at last visit- Continue hydrocodon e 5mg PRN- Discussed caution with recent lightheade dness, increased risk for falls- Continue current non-pharma cological measures Parastomal hernia 917294 007 K43.5 1689827 - Stable but enlarged from prior evaluation - Referred to general surgery at [facility] for evaluation , is scheduled- Discuss conservati ve management options such as bracing, wraps- Stella is aware she is not a strong surgical candidate at this time and our priority is general stability Allergic conjunctivitis 231664626 J30.2 H10.10 J30.89 2245534 - Start OTC antihistam ine (non-sedat ing), cetirizine or fexofenadi ne- Start Flonase nasal spray daily at bedtime for 2 weeks- Education provided regarding expected timeline for improvemen t [id number] YOKASTA SAUCEDA [facility] OFFICE [address] [place] [phone] 03/28/2025 12:56:32 03/29/2025 15:02:53 Hypothermia not associated with low environmental temperature 8362958862 91513 R68.0 2923869 - Temp measurable today in clinic, this is an improvemen t- Continue current warming measures, wearing hats- Very sensitive to ambient temperatur es- Suspect central thermal dysregulat ion- Return to ED if mental status changes or severe hypothermi a develops Bradycardia 56993140 R00 .1 34889 - Home median HR in 50-60s off beta di Labile sys temic arterial hypertension 6836080996 3402535 R09.89 5743534 - BP improved, mean SBP 140-170s down from 160-180s SBP but still labile- Suspect mechanism is centrally mediated- Continue amlodipine 5mg, doxazosin 1mg at current doses- Continue home BP monitoring - Ideally would increase doxazosin but this could result in hypotensio n with her normal readings- Await endocrinol ogy consultati on (scheduled for May) Chronic hyperkalemia 407 59967 E87.5 9813 - K+ 5.3 on 03/26- No additional doses of Lokelma this week- Continue Lokelma 10mg BID- For potassium level >5.5, administer 1 additional 10mg dose of Lokelma- Stay off naproxen, ibuprofen- Has good supply of Lokelma at present- Continue serial CMPs Q3 days Lymphadenitis 02829029 I 88.9 60602 - Stable- Continue compressio n stockings- May use Vaseline/A quaphor for skin care- Continue monitoring for signs of infection At [facility] ed risk of emergency hospital admission 545946755 Z91.89 8229255409 - LACE score: 14 (high), HOSPITAL score: 8 (high)- Establishe d pattern of electrolyt e disturbanc es and altered mental status resulting in repeat ED and hospital admissions over the last year- cardiac arrest x 1, sepsis x 1, hypovolemi c shock x 1 in 2024- Renal tubular acidosis, Crohn's, disordered eating and poorly understood hypoglycem ic events contributi ng- Palliative care following Hypoglycemia 622468732 E 16.2 21701 - Better control but still with AM readings in the 50s despite snack before bedtime- insulin and proinsulin levels elevated on recent labs- scheduled with endocrinol luis e in May; also on cancellati on list- Continue maintainin g adequate PO intake and providing glucose rescue when needed- Continue use of CGM- Continue avoiding vitamin C Parastomal hernia 538272 007 K43.5 4376166 - Stable but enlarged from prior evaluation - Referred to general surgery at [facility] for evaluation , is scheduled- Discuss conservati ve management options such as bracing, wraps- Stella is aware she is not a strong surgical candidate at this time and our priority is general stability Allergic conjunctivitis [id number] J30.2 H10.10 J30.89 6152313 - Continue warm compresses to eye BID- Start OTC antihistam ine (non-sedat ing), cetirizine or fexofenadi ne- Start Flonase nasal spray daily at bedtime for 2 weeks- Education provided regarding expected timeline for improvemen t Bilateral chronic serous otitis [id number] H65.23 257487 - Start OTC antihistam ine (non-sedat ing), cetirizine or fexofenadi ne once daily for 2 weeks- Start Flonase nasal spray daily at bedtime for 2 weeks- Education provided regarding expected timeline for improvemen t Mixed anxi ety and depressive 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 F32.A 405511 - encouraged to take mirtazapin e consistent ly- consider sertraline in lieu; lowest risk for long QT and hyperkalem ia of the SSRIs, may be helpful for evening anxiety surges before bed- will schedule with therapist- discuss with BARBARA Yancey [id number] YOKASTA SAUCEDA [facility] OFF[facility] [address] [place] [address] 04/11/2025 16:59:48 04/12/2025 16:43:21 Crohn's disease 50246775 K50.919 610661246 - Last saw gastroente rology on 11/04, described as in clinical remission- ostomy output now occasional ly diarrhea- would like to be reconnecte d to prior- Will place referral to Dr. Diaz at [facility] for gastroente rology follow-up- Discussed possibilit y that current diarrhea could be early Crohn's flare vs. medication side effect vs. viral gastroente ritis- Monitor symptoms and report worsening Bilateral acute conjunctivitis [id number] H10.33 94455450 - persistent x 2 weeks- prescribe erythromyc in ophthalmic ointment TID for possible bacterial conjunctiv itis- continue warm compresses BID- If no improvemen t with antibiotic treatment, consider antihistam ine eye drops (olopatadi ne/Pataday ) Parastomal hernia 078497 007 K43.5 0726448 - large, stable- upcoming surgical consultati on on the of this month- Discussed possibilit y of wound care/ostom y nurse consultati on at [facility] for appliance management strategies , defers for now- Stella is aware she is not a strong surgical candidate at this time and our priority is general stability Bradycardia 14426172 R00 .1 99451 - Pulse readings in 40s-60s, per partner- stable potassium- Discussed possible causes including chronic malnutriti on history, and lower core body temperatur e- Will continue to monitor Chronic pain 88566624 G8 9.29 222792 - Continue current hydrocodon e regimen as needed for pain- Discussed difference between dependence and addiction- Reassuranc e that using prescribed pain medication appropriat aminta for legitimate pain is reasonable and safe- Encouraged consistent dosing for 3 days to evaluate effect Stress 80966049 F43.9 4572922 - Acknowledg ed stress related to daughter's financial situation and requests for money- Validated patient's feelings of guilt and concern- Encouraged resuming therapy with Mile for additional support Finding of increased risk level 9053217395 Z91.89 2480250 [id number] WENDY NORRIS [facility] MAIN OFFICE [address] [place] [address] 04/18/2025 15:59:06 04/21/2025 12:46:30 Hypoglycemia 205839512 E16.2 75634 - Continue GCM. Recent labs show slightly elevated potassium. - Continue current management with glucose tablets/gu mmies for low readings.- Still not scheduled with endocrinol ogy - gave Rashad number to call, emphasized importance .- Reviewed importance of regular glucose monitoring and treatment of lows.- Follow-up: After endocrinol ogy evaluation . Crohn's di sease of large bowel 2760655 K50.672 3690751 - Recommend ostomy belt/abdom inal binder with opening for ostomy ($24 on Proxeon).- Gen surg is referring to specialist for possible hernia repair evaluation .- Discussed management options and limitation s of surgical interventi on.- Referred back to Dr Diaz at [facility] for ongoing surveillan ce; has not yet scheduled, given number again Tinea pedis 4569997 B35. 3 75332361 - Clinical diagnosis of tinea pedis.- Trial terbinafin e 1% between toes once daily for 1 week- Recommend open-toed sandals or slippers at home to allow feet to breathe.- Discussed importance of keeping feet dry and allowing air circulatio n.- At next visit if not improved. Lymphedema of limb 99890 0002 I89.0 2496260 Generalize d anxiety disorder 66355727 F41.1 001161 - discussed option to start low dose sertraline for management - prefers not to add more medication s- encouraged to schedule with therapist for ongoing care- continues to follow with YOUTH COUNSELOR Naye [id number] WENDY NORRIS [facility] OFFICE [address] [place] [address] 05/09/2025 15:54:31 05/12/2025 18:47:25 Post-discharge follow-up [id number] Z09 957902 - admitted 04/21 to 05/05/25- discharged after hospitaliz ation for aspiration pneumonia with sepsis and delayed gastric emptying. CT showed distended stomach with food contents and thickening of small intestine/ lower esophagus. Differenti al for the gastric outlet obstructio n includes gastropare sis, mechanical obstructio n secondary to parastomal hernia, or Crohn's flare. Also managing chronic hypoglycem ia with suspected pancreatic atrophy, chronic electrolyt e abnormalit ies, chronic pain, and depression /anxiety. Sepsis 31686889 A41.9 1550959244 - required levophed, levofloxac in, azithro and cefepime, 1 unit PRBC now resolved- blood and urine cultures from NTD; viral panel negative- monitor closely, high risk for recurrence - follow up in 1 week Delayed ga stric emptying 207684193 K30 365397 - likely transient bowel obstructio n that passed with gastrograf in administra tion- large mass of undigested contents in stomach on day of admission but no nausea preceding- likely related to aspiration PNA- continue pantoprazo le 40mg once daily- follow up with Wilian BENAVIDEZ (referred by ) Hypoglycemia 738948784 E 16.2 76039 - atrophic pancreas noted on scans at - high risk for recurrence of low events on soft, minced diet and potential decreased PO intake- Continue CGM.- Continue current management with glucose tablets/gu mmies for low readings.- Referred to endocrinlaura kimbrough December 2024, may be scheduled for June 05 I've discussed the rationale and urgency of this to Rashad and Stella at many visits. They have been given the phone number to call several times. Rashad will call [facility] kimbrough to verify date- Discharge summary from recent hospitaliz ation sent to [facility] Hypomagnesemia 777282052 E83.42 9931 - resolved- continue magnesium oxide 400mg BID once daily Pneumonia 344449445 J18. 9 [id number] - RML, without respirator y failure, resolved- mechanism likely aspiration given large bolus of undigested food in stomach- treated with levofloxac in in ED, then parenteral azithromyc in and cefepime for 7 days- no viral or bacterial pathogen identified to date- no further imaging needed at this time.- continue minced soft diet until seen by GI- advised sleeping with head elevated (two pillows) to prevent recurrent aspiration .- continue pantoprazo le as above Parastomal hernia 196251 007 K43.5 3544819 - large- Seen by Gen Surg on April 18 for consult; evaluated while inpatient- Stella is aware she is not a strong surgical candidate at this time and our priority is general stability- Referred to Quita Arzola, colorectal surgeon by Gen Surg- Referred to REEMA Lewis, by Chronic hyponatremia 503 85586 E87.1 9775 - Na stable since discharge on TID replacemen t- Continue NaCl 1gm TID- continue serial labs q3d Chronic anemia 526024856 D64.9 721111 - Hgb 8.7 to 7, received 1 unit PRBC while inpatient. - anemia of chronic disease- check CBC and iron studies one time Crohn's di sease of large bowel 1485429 K50.082 9374592 - Some thickening of distal esophagus and general edema of small bowel on CT, unclear if recurrent Crohn's- seen by Gen Surg for consultati on on 04/18 prior to this episode- referred to Quita Arzola, colorectal surgeon at that time- referred to REEMA Lewis at discharge from this hospitaliz ation- given numbers to call to schedule for evaluation Chronic anxiety 76290447 9 F41.9 305135 - prolonged discussion over several visits- start sertraline 25mg once daily at bedtime for one week, then increase to 50mg daily if tolerated. - lowest risk of long QT of SSRI group- stop mirtazipin e- discussed mechanism of action, expected timeline for effect (6-8 weeks), and that medication willnot change personalit y but may help with coping and reduce anxiety.- partner is very supportive of treatment- encouraged to schedule with therapist, partner reminds pt daily- visit note exported to palliative care provider- follow up in 1 week Chronic depression 78764 0009 F32.A 473849 - prolonged discussion over several visits- start sertraline 25mg once daily at bedtime for one week, then increase to 50mg daily if tolerated. - lowest risk of long QT of SSRI group- stop mirtazipin e- discussed mechanism of action, expected timeline for effect (6-8 weeks), and that medication will not change personalit y but may help with coping and reduce anxiety.- partner is very supportive of treatment- encouraged to schedule with therapist, partner reminds pt daily- visit note exported to palliative care provider- follow up in 1 week Lumbar radiculopathy 128 723245 M54.16 98592 - well-manag ed- continue hydrocodon e 5 PRN, is utilizing now- reassuranc e given of appropriat e use of pain medication for chronic pain. [id number] WENDY NORRIS [facility] OFFICE [address] [place] [address] 05/13/2025 16:59:45 05/15/2025 12:16:41 Pneumonia 126327170 J18.9 3373990971 - reason for recent hospitaliz ation and sepsis- tpday with persistent wheezing, diminished air entry and rhonchi to RM and RLL- previously treated with levofloxac in in ED, then parenteral azithromyc in and cefepime for 7days- no viral or bacterial pathogen identified to date- repeat X-ray today, ordered by YOUTH COUNSELOR Naye with Palliative who saw her earlier today- continue minced soft diet until seen by GI- continue sleeping with head elevated to prevent recurrent aspiration .- continue pantoprazo le as above- start albuterol 2 puffs Q4H and PRN to improve pulmonary toilet- advised deep breathing and coughing using pillow to brace stoma Sinus bradycardia 103498 05 R00.1 3919 - 12 lead EKG: HR 41, sinus, BP low normal in clinic, alert, conversant - Prolonged QT similar to prior EKGs, no AV or BB block- Asymptomat ic, BG WNL- CMP WNL on 05/12/25, no hyperkalem ia for several weeks- Consider low HR related to low core temperatur e dysregulat ion vs chronic malnutriti on- Not on beta blockers- Albuterol for PNA should transientl y increase HR Delayed ga stric emptying 212437217 K30 963875 - continuing with at least 60% soft, pureed, or minced diet- discussed importance of gradual transition to regular foods and thorough chewing considerin g the last time she had severe stomach distension she did not have nausea as a protective response- continue pantoprazo le- continue sleeping with head elevated above stomach- monitor [id number] WENDY NORRIS [facility] OFF[facility] [address] [place] [address] 05/26/2025 16:51:18 05/27/2025 15:57:33 Hypoglycemia 088172152 E16.2 29827 - atrophic pancreas noted on scans at - high risk for recurrence of low events on soft, minced diet and potential decreased PO intake- Continue CGM, refilled- Continue current management with glucose tablets/gu mmies for low readings.- Referred to endocrinol luis e December 2024, scheduled for May- Blood sugars well-contr olled with current regimen- Follow up in 1-2 weeks Parastomal hernia 645804 007 K43.5 3713070 - large- Seen by Gen Surg on April 18 for consult; evaluated while inpatient- Stella is aware she is not a strong surgical candidate at this time and our priority is general stability- Has appointmen t with Quita Arzola, colorectal surgeon by Gen Surg- Referred to Kale Cedeno, GI, by Delayed ga stric emptying 913197005 K30 215607 - continue with at least 60% soft, pureed, or minced diet- discussed importance of gradual transition to regular foods and thorough chewing considerin g the last time she had severe stomach distension she did not have nausea as a protective response- continue pantoprazo le- continue sleeping with head elevated above stomach- monitor Right midd le zone pneumonia 754457172 J18.9 80987419 - resolved after moxifloxac in course- Encouraged continued gradual increase in activity as tolerated- No further antibiotic s needed at this time- Monitor for any return of respirator y symptoms Bereavement 43266031 Z63 .4 31058 - Patient coping well with recent loss- Encouraged continued expression of feelings- Will continue to monitor mood and coping at follow-up visits [id number] YOKASTA SAUCEDA [facility] [address] [place] [address] 06/02/2025 16:50:19 06/03/2025 15:47:40 Right middle zone pneumonia 229886248 J18.9 16940856 - resolved after moxifloxac in course- Encouraged continued gradual increase in activity as tolerated, deep breathing and coughing- Follow up chest X-ray to confirm resolution - Pt to follow up with home PT service regarding missed visits- Follow up in one week to monitor recovery Delayed ga stric emptying 172494503 K30 403355 - no s/s recurrence - continue with at least 60% soft, pureed, or minced diet- CXR today to evaluate gastric silhouette - continue pantoprazo le- continue sleeping with head elevated above stomach- monitor Hypomagnesemia 539838175 R79.0 93224306 - continue magnesium oxide 400mg BID once daily- check mg with next routine labs Management of drug regimen 203259892 Z79.062 5853144 - Reviewed all current medication s and their indication s, annotated list for Rashad- Sertraline not started yet, but available if needed- Discussed medication organizati on strategies Preventive procedure 169 739461 Z00.00 191174 - Recommende d pneumococc al vaccine (PCV21)- Recommende d RSV vaccine- Discussed importance of upcoming COVID and flu vaccines in fall- Discussed tetanus vaccinatio n status Labile sys temic arterial hypertension 2659200257 1215094 R09.89 7743936 - BP elevated today, has not been taking doxazosin consistent ly per Rashad as was not sure what it was for- Suspect mechanism is centrally mediated- Continue amlodipine 5mg, doxazosin 1mg at current doses- Continue home BP monitoring - Ideally would increase doxazosin but this could result in hypotensio n with her normal readings- Await endocrinol ogy consultati on (scheduled for May) Hypoglycemia 821919409 E 16.2 60842 - atrophic pancreas noted on scans at - Continue CGM- Continue current management with glucose tablets/gu mmies for low readings.- Endocrinol ogy visit upcoming- Blood sugars well-contr olled with current regimen- Follow up in 1-2 weeks [id number] YOKASTA SAUCEDA [facility] OFFICE [address] [place] [address] 06/09/2025 12:51:04 06/12/2025 13:50:02 Delayed gastric emptying 359814782 K30 904332 - delay emptying vs lower outlet obstructio n- if the former, query role of low dose hydrocodon e?- continue moist/minc ed/pureed diet until Weds visit with surgeon- continue pantoprazo le- continue sleeping with head elevated above stomach- monitor Right uppe r quadrant pain 034798988 R10.11 125792 - severe over weekend, resolved with Miralax- maintain moist/minc ed diet until visit with surgeon on [place]- continue Miralax 1/2 to 1 capful once daily- reviewed return and emergent precaution s, s/s strangulat ion vs incarcerat ion Parastomal hernia 600495 007 K43.5 8932233 - prior admission and this weekend's abd pain consistent w/ intermitte nt bowel obstructio n/incarcer ation secondary to large parastomal hernia- symptoms relieved by Miralax, continue- Seen by Gen Surg on April 18 for consult; evaluated while inpatient- Sees Quita Arzola, colorectal surgeon by Gen Surg on MonJun 11- Gastroente rologist is Cortez Diaz at [facility] Hypoglycemia 426104993 E 16.2 22999 - atrophic pancreas noted on scans at - Continue CGM- Continue current management with glucose tablets/gu mmies for low readings.- Saw endocrinol ogy - no note in [place] yet- Blood sugars well-contr olled with current regimen- Follow up in 1 week 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 008091988 L24.B0 7428591493 - continue daily use of barrier ointment- ketoconazo le daily prior to applicatio n fo barrier ointment [id number] YOKASTA SAUCEDA [facility] [address] [place] [phone] 06/16/2025 14:15:23 06/23/2025 15:00:46 Leukocytes in urine 848376586 R82.998 028748 - UA in ER 03/08/25 positive, polymicrob ial growth c/w skin contaminan t- treated with ciprofloxa Stella zabala had severe reaction after 1 dose- med is already listed in allergy list, details from most recent episode has been added- we will sent another UA today to try to confirm organism Delayed ga stric emptying 467883469 K30 241988 - last symptomati c episode 06/08/25- delayed emptying +/- intermitte nt outlet obstructio n- left message with Dr Arzola for clarificat ion on Miralax usage; also exported neurology and endonotes- continue moist/minc ed/pureed diet- continue pantoprazo le- continue sleeping with head elevated above stomach- monitor Imbalance of constituents of food intake 889341510 E63.8 09471766 - Ask if Home Health SW can try to access [employer] Hypoglycemia 528119821 E 16.2 54637 - atrophic pancreas noted on scans at - Continue CGM, refilled- Continue current management with glucose tablets/gu mmies for low readings.- Saw endocrinol Damon kimbrough at [facility] on 06/04/25 - they do not think low BG meet clinical hypoglycem ia criteria since reported by CGM not whole blood measuremen t; encouraged pt to check with fingerstic k- Has had documented lows while inpt and as criteria for ED admission and treatment in past.- Blood sugars stable with current regimen- Monitor and follow up in 1 week Parastomal hernia 952806 007 K43.5 0580906 - two previous admissions for abd pain consistent w/ trapped looped bowel withinlarg e parastomal hernia +/- delayed gastric emptying- symptoms relieved by Miralax, continue - message sent to Dariusz to verify appropriat eness ofMiralax- Seen by Quita Arzola on 06/13, plan for robotic re-siting of ostomy in future after preop eval- Gastroente rologist is Cortez Diaz at [facility]- follow up in 1 week Grief finding 888595701 F43.21 62739 - recent loss of sister to brain cancer- now starting to process emotionall y- Stella says she will talk to Amy Yancey tomorrow about other therapy options locally that Medicare will cover [id number] YOKASTA SAUCEDA [facility] [address] [place] [address] 06/24/2025 12:52:59 06/27/2025 15:23:29 Chronic hyperkalemia 54334590 E87.5 9813 - K+ 5.6 on 06/23, extra dose of Lokelma today- Continue Lokelma 10mg BID- For potassium level >5.5, administer 1 additional 10mg dose of Lokelma- Stay off naproxen, ibuprofen, ARBS- Continue serial CMPs Q3 days- encouraged to call [facility] and ask about their supply, had been previously refilled for the year Parastomal hernia 963602 007 K43.5 5596585 - two previous admissions for abd pain consistent w/ trapped looped bowel withinlarg e parastomal hernia +/- delayed gastric emptying- symptoms relieved by Miralax, continue - message sent to Dariusz to verify appropriat eness ofMiralax- Seen by Quita Arzola on 06/13, plan for robotic re-siting of ostomy in future after preop eval- Left message for Dr Arzola to clarify about preop eval plan- Gastroente rologist is Cortez Diaz at [facility]- follow up in 1 week Anxiety 45558281 F41.9 70593 - started sertraline 25mg- will increase to 50mg, feels improvemen t already- will schedule with therapist- referred to Behavioral Health by YOUTH COUNSELOR Naye, given phone number Hypoglycemia 677206019 E 16.2 15100 - atrophic pancreas noted on scans at - likely reflective of low reserve, metabolic dysregulat ion with chronic low intake- Continue CGM, refilled- Continue current management with glucose tablets/gu mmies for low readings.- Saw endocrinol Damon kimbrough at [facility] on 06/04/25 - they do not think low BG meet clinicalhy poglycemia criteria since reported by CGM- Has had documented lows while inpt and as criteria for ED admission and treatment in past.- Blood sugars mostly stable with current eating regimen- CGM is consistent with our glucometer today in clinic, not consistent with the borrowed unit Jennifer t- encouraged to get a new one from [facility]; RPM unit may be to [employer] [employer]- Monitor and follow up in 1 week [id number] YOKASTA SAUCEDA [facility] [address] [place] [phone] 07/11/2025 16:54:07 07/14/2025 14:14:30 Chronic hyperkalemia 39106531 E87.5 9813 - K+ stable on recent CMP- Continue Lokelma 10mg BID, prescripti on coverage for the year obtained per Palliative Care provider- For potassium level >5.5, administer 1 additional 10mg dose of Lokelma- Stay off naproxen, ibuprofen, ELINA/ARBS- Continue serial CMPs week when stable Hypoglycemia 817674734 E 16.2 65222 - atrophic pancreas noted on scans at - likely reflective of low reserve, metabolic dysregulat ion with chronic low intake- Continue CGM, refilled- Continue current management with glucose tablets/gu mmies for low readings.- Saw endocrinol Damon kimbrough at [facility] on 06/04/25 - they do not think low BG meet clinicalhy poglycemia criteria since reported by CGM- Has had documented lows while inpt and as criteria for ED admission and treatment in past.- Blood sugars mostly stable with current eating regimen- CGM is consistent with our glucometer today in clinic, not consistent with the borrowed unit Jennifer t- encouraged to get a new one from [employer]; RPM unit may be to [employer] for them to connect [employer]- Monitor and follow up in 2 weeks Parastomal hernia 905680 007 K43.5 2762707 - stable, no recurrence s- two previous admissions for abd pain consistent w/ trapped looped bowel withinlarg e parastomal hernia +/- delayed gastric emptying- Seen by Quita Arzola on 06/13,- Upcoming MRI (08/05/25), endoscopy (08/21/25) , and pre-op clinic (09/01/25)- Need to clarify if cardiac workup required by surgical team- On waiting list for earlier surgery date- Education on process and timeline- Follow up as scheduled or sooner if concerns Anxiety 71960873 F41.9 74841 - continue sertraline 50mg, noted improvemen t in mood- still to schedule with therapist- discussed ways to avoid "sweating the small stuff" now that the big stuff is well-manag ed- referred to Behavioral Health by BARBARA Yancey, given phone number Labile sys temic arterial hypertension [phone] 9781218 R09.89 1108754 - BP WNL today- Continue amlodipine 5mg, doxazosin 1mg at current doses- monitor Candidiasis 65706187 B37 .9 16635 - large inflamed area to midline abdomen adjacent to ostomy appliance- nystatin not improving- switch to ketoconazo le topical cream BID, followed by Aquaphor or Vaseline or Desitin- allow skin to breathe every day- avoid adhesives when able- cutting duoderm to avoid this region- monitor and follow up in 2 weeks- culture if no improvemen t at follow up Edema of l ower extremity 493551896 R60.0 10789 - RLE persistent edema- likely venous insufficie ncy, chronic inflammati on (prior trauma to this rice) plus amlodipine - DVT r/o in January- Encouraged to find comfortabl e compressio n socks, not stockings- consider repeat US if no improvemen t with compressio n [id number] YOKASTA SAUCEDA [facility] [address] [place] [address] 07/25/2025 16:48:01 07/29/2025 13:34:56 Chronic hyperkalemia [id number] E87.5 9813 - K+ 4.6 on recent CMP- Continue Lokelma 10mg BID, prescripti on coverage for the year obtained per Palliative Care provider- For potassium level >5.5, administer 1 additional 10mg dose of Lokelma- Stay off naproxen, ibuprofen, ELINA/ARBS- Continue serial CMPs Qweek when stable- Lokelma refilled due to [facility] technical issue Hypoglycemia [id number] E 16.2 51425 - atrophic pancreas noted on scans at - likely reflective of low reserve, metabolic dysregulat ion with chronic low intake- Continue CGM, refilled- Continue current management with glucose tablets/gu mmies for low readings.- Saw endocrinol Damon kimbrough at [facility] on 06/04/25 - they do not think low BG meet clinicalhy poglycemia criteria since reported by CGM- Has had documented lows while inpt and as criteria for ED admission and treatment in past.- Blood sugars mostly stable with current eating regimen- CGM is consistent with our glucometer today in clinic- new glucometer ordered to correlate with CGM- Monitor and follow up in 2 weeks Parastomal hernia 477972 007 K43.5 5386555 - stable, no recurrence s- two previous admissions for abd pain consistent w/ trapped looped bowel withinlarg e parastomal hernia +/- delayed gastric emptying- Upcoming MRI (08/05/25), endoscopy (08/21/25) , and pre-op clinic (09/01/25)- On waiting list for earlier surgery date- Education on process and timeline- Follow up as scheduled or sooner if concerns Anxiety [id number] F41.9 56827 - continue sertraline 50mg, noted improvemen t in mood- still to schedule with therapist- referred to Behavioral Health by BARBARA Yancey, given phone number Labile sys temic arterial hypertension [phone] [id number] R09.89 1156074 - BP WNL today- Continue amlodipine 5mg, doxazosin 1mg at current doses- monitor Edema of l ower extremity [id number] R60.0 97698 - RLE persistent edema, exacerbate d w recent twist of ankle- Repeat lower extremity ultrasound to rule out DVT (prior DVT r/o in January)- Continue use of compressio n stockings as tolerated- Added inflammato ry markers (CRP, ESR) to next lab order- if DVT neg, most likely venous insufficie ncy, chronic inflammati on (prior trauma to this rice) plusamlodi pine or smoldering osteomyeli tis?- Follow up in 1 week 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 77717715 - large inflamed area left of ostomy device towards midline abdomen c/w peristomal dermatitis - no s/s candidal infection or bacterial cellulitis today, at risk for both- pt seen by wound clinic to try to reposition ostomy device without success- stop nystatin, ketoconazo le - trials without improvemen t- Start trial of 1 puff fluticason e nasal spray to affected skin, let dry- then follow with desitin zinc barrier cream- continue visits to Wound Care Clinic, will request notes- monitor and follow up in 1 week Chronic hyponatremia 503 65865 E87.1 9775 - Na 133 on recent CMP- Continue NaCl 1gm TID- continue serial labs q3d [id number] YOKASTA SAUCEDA [facility] [address] [place] [phone] 08/01/2025 15:40:38 08/18/2025 18:28:16 Chronic hyperkalemia 17186401 E87.5 9813 - K+ 4.6 on recent CMP- Continue Lokelma 10mg BID, prescripti on coverage for the year obtained per Palliative Care provider- For potassium level >5.5, administer 1 additional 10mg dose of Lokelma- Stay off naproxen, ibuprofen, ELINA/ARBS- Continue serial CMPs Qweek when stable- Lokelma refilled but pt had to pay at [facility]- Labs pending Hypoglycemia 964207455 E 16.2 87669 - atrophic pancreas noted on scans at - likely reflective of low reserve, metabolic dysregulat ion with chronic low intake- Continue CGM, refilled- Continue current management with glucose tablets/gu mmies for low readings.- Saw endocrinol Damon kimbrough at [facility] on 06/04/25 - they do not think low BG meet clinicalhy poglycemia criteria since reported by CGM- Has had documented lows while inpt and as criteria for ED admission and treatment in past.- Blood sugars mostly stable with current eating regimen- CGM is consistent with our glucometer today in clinic- new glucometer ordered to correlate with CGM- Monitor and follow up in 2 weeks Parastomal hernia 054865 007 K43.5 5151509 - stable, no recurrence s- two previous admissions for abd pain consistent w/ trapped looped bowel withinlarg e parastomal hernia +/- delayed gastric emptying- Upcoming MRI (08/05/25), endoscopy (08/21/25) , and pre-op clinic (09/01/25)- On waiting list for earlier surgery date- Education on process and timeline- Follow up as scheduled or sooner if concerns Anxiety 64581678 F41.9 14688 - continue sertraline 50mg, noted improvemen t in mood- still to schedule with therapist- referred to Behavioral Health by BARBARA Yancey, given phone number Chronic ir ritant contact dermatitis [phone] L24.9 86090388 - much improved from last week- Continue 1 puff fluticason e nasal spray to affected skin, let dry- then follow with desitin zinc barrier cream- continue visits to Wound Care Clinic- monitor and follow up in 1 week Edema of l ower extremity 658821025 R60.0 56121 - RLE persistent edema, exacerbate d w recent twist of ankle- Repeat lower extremity ultrasound to rule out DVT - not yet done- Continue use of compressio n stockings as tolerated- ESR and CRP WNL- if DVT neg, most likely venous insufficie ncy, chronic inflammati on (prior trauma to this rice) plusamlodi pine or smoldering osteomyeli tis?- Follow up in 1 week Chronic hyponatremia 503 93785 E87.1 9775 - Na 133 on recent CMP- Continue NaCl 1gm TID- Labs pending [id number] YOKASTA SAUCEDA [facility] [address] [place] [address] 08/08/2025 15:57:38 08/19/2025 12:50:03 Chronic hyperkalemia 68009297 E87.5 9813 - K+ 5 four days ago, labs drawn yesterday, still not resulted in Myla- Unable to get Lokelma, has missed only 1 dose per Rashad- Approved through [employer] with CMM: [id number] Pt Continue Lokelma 10mg BID- For potassium level >5.5, administer 1 additional 10mg dose of Lokelma- Stay off naproxen, ibuprofen, ELINA/ARBS- Continue serial CMPs Q3D, or Qweek when stable- Refugioma PA completed per Palliative Care in June; [facility] requested new PA, sent verificati on ofCigna coverage by fax per MA- Continue to work with pharmacy to resolve medication access issues- Discussed importance of consistent medication administra tion- Follow up 1 week Hypoglycemia 688685722 E 16.2 38670 - atrophic pancreas noted on scans at - likely reflective of low reserve, metabolic dysregulat ion with chronic low intake- Continue CGM, refilled- Continue current management with glucose tablets/gu mmies for low readings.- Saw endocrinol Damon kimbrough at [facility] on 06/04/25 - they do not think low BG meet clinicalhy poglycemia criteria since reported by CGM- Has had documented lows while inpt and as criteria for ED admission and treatment in past.- Blood sugars mostly stable with current eating regimen- CGM is consistent with our glucometer today in clinic- new glucometer ordered to correlate with CGM - pharmacy is not covering this- Monitor and follow up in 1 week Chronic hyponatremia 503 51190 E87.1 9775 - stable on recent CMP 08/04/2025, more recent labs pending- clarified dosing plan with Evangelina, that it should be TID- Continue NaCl 1gm TID- Follow up 1 week Chronic ir ritant contact dermatitis 084097460 L24.9 68206592 - resolving- Continue 1 puff fluticason e nasal spray to affected skin, let dry- then follow with desitin zinc barrier cream- continue visits to Wound Care Clinic- monitor and follow up in 1 week Edema of l ower extremity 422454303 R60.0 56270 - RLE persistent edema, exacerbate d w recent twist of ankle- Repeat lower extremity ultrasound negative for DVT- Continue use of compressio n stockings as tolerated- ESR 40, CRP 1, both uptrending - Ddx: most likely venous insufficie ncy, chronic inflammati on (prior trauma to this rice) plusamlodi pine or smoldering osteomyeli tis?- Repeat CRP and ESR in 1 week with blood cultures- Follow up in 1 week Renal tubu lar acidosis 2935929 N25.89 92165 - cause of electrolyt e imbalances as above Preventive procedure 169 161654 Z00.00 287967 - Due for COVID, influenza, pneumococc al, RSV, shingles vaccines- All delayed due to 3 years of acute illness and instabilit y- Recommende d spacing out vaccines due to patient's history of immunosupp ression- Provided list of recommende d vaccines- Discussed local pharmacy options for vaccine administra tion- Consider scheduling annual wellness visit in near future [id number] AGUSTIN JOSEPH EXPERT WITNESS [facility] [address] [place] [phone] 08/20/2025 12:51:51 08/21/2025 14:06:48 Community acquired pneumonia 464980772 J18.9 [id number] Community- acquired pneumonia, right lower lobe Based on clinical exam findings of right-side d crackles and previous chest x-ray showing right consolidat ion Symptoms consistent with pneumonia including SOB, dry cough, and respirator y discomfort no signs of sepsis Plan:- Antibiotic therapy with cefuroxime and azithromyc in - dt PCN allergy, cipro allergy making other FQs possibly problemati c, previously tolerated both of these abx in the last few years- Follow-up chest x-ray ordered to assess progressio n since 08/14 imagingMon itor for worsening SOB, ALOC and got to ED immediatel y if concerned Hyperkalemia 97481999 E8 7.5 Variable K+, close monitoring . Takes Lokelma as directed, ongoing difficulty obtaining from pharmacy.Griselda stewart CMP today Ileostomy present 460627 002 Z93.2 Recent hospitaliz ation follow-up needed for ostomy problems Discharged 4 days ago Has upcoming follow-up with surgeon tomorrow -- Recommend contacting GI specialist regarding scheduled ileoscopy tomorrow given active infection- Consider rescheduli ng procedure after completing antibiotic course Plan: Continue post-disch arge care plan - has TCM 08/29Discu ssed pt case with PCP and ordered additional labs, no other changes to plan of care. [id number] [facility] [address] [place] [phone] 09/05/2025 15:53:40 09/10/2025 16:24:48 Preoperative procedure 781987584 Z01.818 593290 - completed preadmit visit with [facility] recently- was supposed to get labs and CXR but left without completing - ordered today to be done through [facility], cc'd to Colorectal surgery- pt called to notify surgeon's office of this new plan Partial ob struction of intestine [id number] 8278672 K56.600 [id number] - intermitte nt obstructio n, now s/p [...] robotic parastomal hernia repair Community acquired pneumonia 252006761 J18.9 1232662553 - completed recent antbx course, stable and well appearing today- 08/28 CT showed tree and bud formations to bilateral lower lungs- monitor carefully, at risk for aspiration PNA if obstructed - Discussed deep breathing exercises and chest percussion to help clear secretions .- Follow-up: Review chest X-ray results when available. [id number] W[facility] NORRIS [facility] [address] [place] [address] 09/16/2025 12:46:24 09/18/2025 12:03:59 Hypomagnesemia 102646384 E83.42 9931 - Mg 1.3 at admit- continue magnesium oxide 400mg BID once daily- check mg with next routine labs Lymphocytopenia 58219957 D72.810 91908 - WBC 4.6L, lymphocyte s 0.4L in ED- recall she did present with lymphopeni a when septic earlier in 2024- recheck Altered mental status 41 3468697 R41.82 195274781 - cause not yet determined , most [...] up in 09/23 Renal tubu lar acidosis 0995161 N25.89 63103 - cause of electrolyt e imbalances as above History of pneumonia 161 536875 Z87.01 6718830051 - completed three antbx courses in July for PNA: moxifloxac in, cefuroxime and azithro- I called pharmacy to confirm she filled these- recent CXR shows partial resolution from prior imaging- I called [facility] team and our plan is that I will see Stella on the and call them with anupdate on her PNA and general status for surgery.- repeat CXR between MondaySep 19 and MondaySep 22 [id number] WEND[facility] JRYOKASTA ORTIZ [facility] [address] [place] [phone] 09/23/2025 16:33:56 09/29/2025 09:59:56 Hypoglycemia 937793369 E16.2 24963 - Reported AM glucose 40 this morning- [...] low readings.- Saw endocrinol Damon kimbrough at [facility] on 06/04/25 - they do not think low BG meet clinicalhy poglycemia criteria since reported by CGM- Has had documented lows while inpt and as criteria for ED admission and treatment in past.- Previous CGM was consistent with our glucometer today in clinic within 8 points- Monitor and follow up in 1 week if not at [facility] for procedure Chronic pain 86790691 G8 9.29 203108 - Continue current hydrocodon e regimen as needed for pain- Unstable gait due to back pain, she is avoiding pain meds- Can try reducing dose by 1/2 as may be contributi ng to confusion- co-followe d by Palliative Care Operative procedure planned 787026741 Z78.9 93549645 - Will communicat e with surgical team about patient's current status- Stella's preference is to proceed with surgery- Benefits of proceeding with surgery in my opinion outweigh risks of postponeme nt (risk ofrecurren t obstructio n)- Labs today, will export to [facility] Caregiver role strain 12 7326122 Z63.6 8896695 - Acknowledg ed 's significan t stress and sleep deprivatio n- Discussed importance of sleep and how this impacts anxiety levels- CGM should help reduce overnight monitoring burden to a degree- Consider respite care options post-surge ry History of pneumonia 161 253912 Z87.01 9304436938 - completed three antbx courses in July for PNA: moxifloxac in, cefuroxime and azithro- I confirmed with pharmacy that all three were filled- CXR 09/19/2025 "no acute cardiopulm onary process"- I called [facility] team to leave a message, exported notes and labs Hypomagnesemia 124630769 E83.42 9931 - Mg 1.3 at admit, again on recheck 09/23- increase magnesium oxide 400mg to TID dosing- Rashad notified about low Mg and to increase dosing- could change to SlowMg for extended release may be preferable and less likely to result in diarrheaho wever she also has hyperchlor emia Altered mental status 41 3312123 R41.82 978235383 - cause not yet determined , most [...] head if no improvemen t Weight decreased 1151268 01 R63.4 626912 - 2 lb loss since visit on 09/16/2025 - suspect food restrictio n with multiple electrolyt e abnormalit ies Chronic hyperkalemia 407 19694 E87.5 9813 - trend of increasing K+, likely related to fluid and PO intake restrictio n- Continue Lokelma 10mg BID- For potassium level >5.5, administer 1 additional 10mg dose of Lokelma- Stay off naproxen, ibuprofen, ELINA/ARBS- Continue serial CMPs Q3D, or Qweek when stable- Doretha PA completed per Palliative Care in June; [facility] requested new [facility], sent verificati on ofCign[employer] coverage by fax per MA- Continue to work with pharmacy to resolve medication access issues- Discussed importance of consistent medication administra tion- Follow up 1 week Subclinica l hypothyroidism 54173538 E03.8 20413 - levothyrox ine refilled- last T4 very low normal- consider increasing levothyrox ine though TSH is <12 after next check Renal tubu lar acidosis 2266562 N25.89 00831 - contributo r to electrolyt e imbalances as above- seen by [facility] 02/2025, unclear follow up- continue electrolyt e supplement ation Mg, K, Na- avoid ARBs/ACEis /MRAs [id number] YOKASTA SAUCEDA [facility] [address] [place] [phone] 09/30/2025 15:56:14 10/02/2025 13:16:07 Hypomagnesemia 556126331 E83.42 9931 - Mg 1.2 to 1.4, [...] been elevated for some time Parastomal hernia 623663 007 K43.5 5525637 - stable, no recurrence s of pain/NV/ob [...] a bridge to surgery. Subclinica l hypothyroidism 81312209 E03.8 - TSH 7.69H to 10.2; T4 0.71 to undetectab le at ED- increase levothyrox ine to 37.5mcg PO QD AC- Rashad confirms he has been giving her levothyrox ine daily per usual- check TSH/T4 in 4-6 weeks Renal tubu lar acidosis 8842369 N25.89 16322 - contributo r to electrolyt e imbalances as above- seen by [facility] 02/2025, unclear follow up- message sent with [...] ARBs/ACEis /MRAs Labile sys temic arterial hypertension [id number] 0848466 R09.89 9990034 - BP WNL today- Continue amlodipine 5mg, doxazosin 1mg at current doses- monitor Hypoglycemia 112541649 E 16.2 88947 - Reported AM glucose of 40 on 09/23/25 per fingerstic k- Stella started using CGM again; mostly correlatin g with glucometer - Continue bedtime snacks and glucose monitoring - atrophic pancreas noted on scans at , would appreciate insight from endocrinlaura kimbrough- likely reflective of low reserve, metabolic dysregulat ion with chronic low intake- Discussed severe risk of hypoglycem ia (glucose of 40), emergent precaution s- Continue current management with glucose tablets/gu mmies for low readings.- [facility] endocr[facility]amon cote [facility] on 06/04[facility] - they do not think low BG meet clinicalhy poglycemia criteria since reported by CGM- Exported copy of this visit note to Juwan kimbrough in light of hypomagnes emia and recurrenth ypoglycemi a, request follow up, Rashad also given number to call to schedule- Has had documented lows while inpt and as criteria for ED admission and treatment in past.- Previous CGM was consistent with our glucometer today in clinic within 8 points- Monitor and follow up in 1 week History of alcohol use disorder 4042188511 F10.11 236704 - Abstinent from alcohol since 2022- check thiamine with next labs, currently replacing [id number] YOKASTA SAUCEDA [facility] [address] [place] [phone] 10/03/2025 15:52:46 10/04/2025 11:35:12 Small bowel obstruction 986871375 K56.609 30593 - discharged from 10/02/25 following recurrent small bowel obstructio n- presents for TCM today with N/V and water output from ostomy, cramping pain and tenderdist ended hernia- concerning for gastropare sis vs recurrent SBO vs gastroente ritis- advised pt go to [facility] ED or [facility] to be closer to surgeons given risk of reoccurrin gobstructi on, disorienta tion and dehydratio n; Rashad declines, will go to ED- I called ED and gave handoff to Radhika, ED Provider; she called back a few minutes laterto advise that they were on surgical divert and pt should go to [facility] .- I called Rashad at their home number and Stella's cell phone and left messages. Rashad does not use [employer] phone and does not know how to answer Stella's phone.- Surgical plan as follows as of 10/02/25:-- > Dr Arzola spoke to Dr Stauffer at [facility] who said he would accept Stella as a pt--> Dr Arzola said she would refer Stella to Dr Stauffer--> I exported recent notes to Dr Stauffer Hypomagnesemia 499140601 E83.42 9931 - Mg 1.2 to 1.4, [...] MgSO4 infusions at [facility], orders entered by YOUTH COUNSELOR Naye, Palliative Care--> Pt will need to get Mg level drawn 1 hour prior to infusion time at [facility]- did not have time to review this plan due to need for pt to return to ED- could consider change to SlowMg for extended release may be preferable and less likely to result indiarrhea Weight decreased 9815747 01 R63.4 59293 - 3 lb loss since 10/01/25, compounded by recent N/V/water stools- suspect food restrictio n with multiple electrolyt e abnormalit ies Nausea and vomiting 1692 1999 R11.2 6927914434 - hypotensiv e, appears dehydrated , mildly disoriente d to plan of care- ostomy with clear watery output- concerning for gastropare sis vs recurrent SBO vs gastroente ritis- not a candidate for typical outpt oral rehydratio n due to hyperkalem ia, hyperchlor emia andhypomag - advised pt go to [facility] ED or [facility] to be closer to surgeons given risk of reoccurrin gobstructi on, disorienta tion and dehydratio n; Rashad declines, will go to ED- I called ED and spoke to Radhika, ED Provider and gave handoff; she called back a few minutes laterto advise that they were on surgical divert and pt should go to [facility] .- I called Rashad at their home number and her cell phone and left messages. Emotional stress 8517275 09 R45.7 13265240 - Provided support and counseling regarding emotional distress and financial concerns- Encouraged Rashad to call [employer] and ask for specific support- Would be helpful for Rashad to learn to use Stella's phone so he can be contacted when in transit- Return to clinic or contact provider if symptoms worsen or new concerns arise- Discussed the possibilit y Stella may need [facility] care in order to provide respite for Rashad andconsist ency for Stella Crohn's disease 23971554 K50.912 [id number] - Query flaring, causing SBOs- Last saw gastroente rology Dr Diaz on 06/27/25, ileoscopy scheduled but not completed as cancelled as Stella was in the hospital- not yet reschedule d, no recent f/u due to recent instabilit y- recurrent SBO may reflect Crohn's flare; per YOUTH COUNSELOR Naye this was prior pattern before her last surgery- ostomy output today is mostly water- visit note exported to Dr Diaz along with recent ED notes and imaging Alcohol dependence 56337 003 F10.20 4426289 - abstinent from alcohol since 2022 Goals Section Goal Description Progress Status Start Date LastModified by Organization Details LastModified Time Hyperten elva Time of diagnosis: 4Curren t medications: amLODIPine 5 mg tablet, take 1 tablet by mouth once daily and Cartia XT 120 mg capsule extended release, take 1 capsule by mouth once dailyCurrent interventions: Take daily readings at homeSpecialist consultations: noneControlled/ uncontrolled: TBD None active 2023 Amy Covarrubias Information not available 10/25/2024 15:36:48 Crohn's Disease Time of diagnosis: 4Curre nt medications: acetaminophen 500 mg tablet Take [...] 10/25/2024 16:13:31 Hyponatr emia Time of diagnosis: 07/22/2024urren t medications: Magnesium 250 mg (as magnesium [...] lower your blood pressure. DASH Diet Resource: https://www.Redu.us/nut rition/dash- t#benefits and https://www.nhl bi.nih.gov/educ ation/dash-eati ng-planFoods [...] Covarrubias Information not available 01/29/2025 17:16:11 Weight Maintena nce Exhibits stable weight with normal fluctuation None active 2024 Amy Covarrubias Information not available 01/29/2025 17:16:11 Diagnost ic Testing Completes diagnostic testing as per care team recommendation( s) None active 2024 Fauziagin Satish Information not available 01/29/2025 17:16:12 Medicati on Regimen Follows medication regimen as per care team recommendation( s) None active 2024 Silvervictoriano Satish Information not available 01/29/2025 17:16:12 Stress Manageme nt Reports effective management of stress None active 2024 Amy Covarrubias Information not available 01/29/2025 17:16:12 Quality of Life Reports satisfaction with quality of life None active 2024 Silvervictoriano Satish Information not available 01/29/2025 17:16:12 Follow-u p Appointm ent(s) Attends referral and/or follow-up appointment(s) as per care team recommendation( s) None active 2024 Silvervictoriano Satish Information not available 01/29/2025 17:16:12 Activiti es [...] Available 12/24/2024 15:5 7:08 Alcohol dependence Active [place] Not Availab le 07/11/2024 21:26:46 Crohn's [...] Active Amy Covarrubias Not Available 10/2024 18:23:42 Advance Directives Directive None Recorded Payers Insurance Date Sequence Insurance Name Policy Number Policy Jade Covered Member ID Jade Member ID Guarantor Name 08/22/2025 1 [facility] ([facility]) [id number] Ana M Tresa Wynn [id number] Ana M Wesleynner 08/22/2025 2 [facility] MEDIC[facility] SUPPLEMENT PLAN [id number] Ana Madria Wynn [id number] Ana M Kingsley 03/07/2025 1 [facility] [id number] Ana M Wynn [id number] Ana M Wynn 07/11/2025 2 [facility] (PPO) [id number] Ana M Wynn [id number] Ana M Kingsley 09/30/2025 1 [place] [facility] Ana M Wynn [id number] Ana M Kingsley 09/29/2025 2 [facility] (PPO) [id number] Ana M Wynn [id number] Ana M Wynn Notes Date Note Type Note Provider Name and Address Organization Details Recorded Time 09/05/2025 text/html ROS as noted in the HPI Ana M Wynn is a 65-year-old female presenting for follow-up after recent ED visits for partial bowel obstruction and pneumonia, with upcoming colorectal surgery. ED Course:08/28/25 CT abd and pelvis: Consolidation and tree-in-bud pattern in lower lungs, dilated loops of terminal ileum and wall thickening within parastomal hernia 08/29/25:1st visit: s/s possible re-obstruction, offered NGT and admission, preferred to go home and take [id number] visit: N/V, ileostomy output has picked up, symptoms likely secondary to constipation, WBC elevated 1. Partial Bowel Obstruction- Recently visited ED twice for symptoms of partial obstruction- First visit on with queasiness and early obstruction symptoms; declined admission and NG tube- Second visit required ambulance transport when symptoms worsened with prolonged nausea over toilet- Had previously been inconsistent with daily MiraLAX but now taking it regularly- taking dicyclomine for abdominal cramping with good effect- current abdominal symptoms are improved- Saw dietitian at hospital who reviewed nutrition with Stella; patient consuming 3-4 high-protein Ensure drinks dailyFocused ROS: No current nausea, vomiting, or constipation. No abdominal distention or severe pain. 2. Pneumonia- Recently completed course of moxifloxacin for pneumonia- CT on 08/28 showed bilateral lower lobe findings consistent with pneumonia- Reports left chest wall pain that patient attributes to using cane and weather changes- Believes pain is muscular in nature from leaning on cane during walksFocused ROS: No fever, no productive cough currently. No shortness of breath or wheezing. 3. Hyperkalemia- History of chronic hyperkalemia requiring Lokelma- Recent labs on 08/29 showed potassium at 3.6 (normal)- Rashad wonders why she doesn't need Lokelma when she is in the hospital- Patient notes that during recent hospital visits, Lokelma was not administered- Prior labs on 08/04 showed elevated potassium requiring extra dose of medicationFocused ROS: No muscle weakness, palpitations, or irregular heartbeat. 4. Pre-operative Planning- Scheduled for robotic colorectal surgery in approximately one month- Currently on cancellation list but unlikely to be moved up- Needs pre-operative labs and chest X-ray, was supposed to get these done during preadmit visit but forgot- Wants to see if we can have these done at [facility] [place]: No new symptoms affecting surgical planning. WENDY NORRIS, [employer] [address] [place], [address], [facility] [place]/05/[place]25 17:07:07 09/16/2025 text/html ROS as noted in the HPI Stella, 65-year-old female, presents for follow-up after recent hospitalization for acute onset of confusion and behavior change. Hospital course: - Admit 09/13 to ED for altered mental status- Leukopenia- Subclinical hypothyroidism- Low Mg- CT head neg for bleed and CT abd/pelv neg for bowel obstruction 1. Acute Confusion Episode- hospitalized for confusion and disorientation- reports patient was "seriously confused"- was walking around house naked, unusual for her- Rearranged items in kitchen, placed things in unusual locations- Still experiencing word-finding difficulties (aphasia)- Last night had episode of repetitive behavior - getting up multiple times, walking around house- No apparent distress during nighttime episodes- reports she's "better in the morning than at night which really worries me"Focused ROS: No hallucinations, no distress during episodes, reports strange dreams but "nothing horrible", restless legs at night, no fever 2. Medication Review- Spouse wonders if she is possibly missing doses of medications- Spouse has started doing her medication administration again- Hospital considered possible medication interactions as a cause- Hydroxyzine used only occasionally - pt and spouse do not recall if she has ever taken it- Dicyclomine recently added for stomach cramping, only a week's worth ordered in July- Recently finished antibiotics for pneumonia - may have been taking 3 at the same timeFocused ROS: No recent medication changes except dicyclomine addition 3. Recent Pneumonia- Completed course of antibiotics - moxifloxacin, cefuroxime and azithromycin in Jul- reports "she's been doing good that way"Focused ROS: No cough, no fever, no chest pain YOKASTA SAUCEDA [address] [place], [address], [facility] [place] 09/17/2025 13:40:29 09/23/2025 text/html Stella, 65, presents for follow up on complex chronic conditions. Last visit 09/16/2025:- ED visit for altered mental status- unclear reason- anticholinergics removed from meds 1. Hypoglycemia- reports blood sugar was 40 yesterday morning- Was able to raise it to 180 within 30 minutes with glucose gummies and breakfast- she is taking bedtime snacks with protein to help manage overnight glucose levels- Has not been able to get CGM- Rashad is very frustrated with pharmacy 2. Mobility/Pain Issues- increased pain and difficulty walking- this is because she is not taking her hydrocodone taking pain medication (hydrocodone) due to confusion about pre-surgical restrictions and worries about her cognition- Reports feeling "stiff" and "hurting" during ambulation- Describes feeling "cold" and "out of sorts"Focused ROS: No dizziness or vertigo, no falls reported 3. Pre-surgical Clearance- Scheduled with Dr Arzola for surgery on 09/29- Had x-ray the other day- When asked how she feels about upcoming surgery, Stella smiles broadly and says she is excited- She then asks if I think she could - No abdominal pain this weekFocused ROS: No fever, no new respiratory symptoms, lungs improved from 1.5 weeks ago 4. Evening behavior changes- reports patient "got into medicines" last night but didn't take any- Patient doesn't recall this episode- Confusion about which medications to avoid before surgery (NSAIDs vs. hydrocodone)Focused ROS: No reported changes in mental status during day, no hallucinations WENDY JR, [facility] [address] [place], [address], [facility] [place] 09/28/2025 16:19:11 09/30/2025 text/html J en, 65, presents with complex medical history for follow-up after multiple recent hospitalizations for altered mental status and hypomagnesemia. 1. Weak and magnesium low- Three recent ED visits/hospitalization s- First visit: attempted IV placement unsuccessful, sent home- Returned next morning, received IV fluids, sugar, and other treatments- Head scan normal, all tests reportedly normal- Increased magnesium to 1000mg twice a day- Improved after receiving IV fluidsFocused ROS: No fever, no acute pain, no respiratory distress 3. Hypoglycemia- Rashad is frustrated by her CGM- Glucose readings previously showed 28-30 point differences between devices but today they are very similar, doesn't know which number to trustFocused ROS: No severe hypoglycemic episodes 4. Medication Changes- Rashad would like me to look at meds and make sure they have enough at the pharmacy in refills- Questions about hydrocodone use - has been avoiding due to concerns about mental status- Hospital mentioned thyroidFocused ROS: No medication side effects reported, no allergic reactions 5. Surgical planning- Was supposed to have surgery on 09/29- [facility] canceled, Rashad says "They cancelled because they didn't get the x-ray results"- They found out by calling [facility], Rashad says no one called them- Surgical consultation now potentially delayed until November- Patient disappointed but coping with delayFocused ROS: no obstruction symptoms YOKSATA SAUCEDA [address] [place], [address], [facility] [place] 10/01/2025 12:42:21 10/03/2025 text/html ROS as noted in the HPI Stella, Ruthann, presents for TCM after hospital admission.Today she [...] he is so mad they discharged her" YOKASTA SAUCEDA [address] [place], [address], [facility] [place] 10/04/2025 11:35:11 OBGyn Episode No OBEpisode recorded.
--- OUTSIDE RECORDS SUMMARY | 2025-10-05 03:00 | EXTERNAL MEDICAL SUMMARY RPT | Encounter Summary ---
Author Organization [facility] Address [address] [place] [address] Care Team Providers Care Agriculture Intern Name Role Phone Amy Yancey MEDICAL SERVICES COORDINATOR Unavailable [phone] Reason for Referral * Outpatient Service (Urgent) - Closed Specialty Diagnoses / Procedures Referred By Ambrose t Referred To Contact Audiology Diagnoses Other specified hearing loss of both ears Procedures REF AUDIOLOGY - INTERNAL Desi Pantoja MD [address] [place] [address] Phone: tel: fax: [facility] [address] [place] [phone] Phone: tel: fax: Referral ID Status Reason Start Date Expiration Date V isits Requested Visits Authorized [id number] Closed Evaluate and Treat-Surgery if Indicated 10/19/2023 04/16/2024 1 1 Encounter Details Date Type Department Care Team (Late st Contact Info) Description 10/19/2023 Orders Only [facility] Otolaryngology (Ear, Nose and Throat) [address] [place] [address] Desi Pantoja MD [address] [place] [address] Other specified hearing loss of both ears (Primary Dx) Social History Tobacco Use Types [...] as of this encounter Visit Diagnoses Diagnosis Other specified hearing loss of both ears- Primary documented in this encounter Care Teams Agriculture Intern Relationship Specialty Start Date End Date Amy Yancey ARNP [address] [phone] Family Medicine 04/13/20 documented as of this encounter
--- OUTSIDE RECORDS SUMMARY | 2025-10-05 03:00 | EXTERNAL MEDICAL SUMMARY RPT | Encounter Summary ---
Author Organization [facility] Address [address] [place] [address] Phone Care Team Providers Care Mixed Livestock Farmer Name Role Phone Wendy Petit Primary Care Provider [phone] Radhika Jose MD Unavailable [phone] Reason for Visit * Reason Onset Date Comments Scheduling 06/12/2025 Diabetes & Nutri tion Education Referral Encounter Details Date Type Department Care Team (Late st Contact Info) Description 06/12/2025 Telephone [facility] [address] [place] [address] Doc, No Scheduling (Diabetes & Nutrition Education Referral/) Social History Tobacco Use Types Packs/Day Years [...] encounter Miscellaneous Notes * Telephone Encounter - Nancy Campos - 06/12/2025 10:29 AM PDT Thank you for referring Ana M Wynn to [facility] Ed Referral received from: Radhika Jose MD Unable to Contact: We have made several attempts to reach patient to schedule, but have been unableto reach patient via phone (and [employer] if active). A letter has been sent to patient as a final outreach. The referral is now marked as "Unable to Contact" and no further attempts will be made. However, patient can still contact the department to schedule with current referral. Thank you. documented in this encounter Plan of Treatment Not on file documented as of this encounter Visit Diagnoses Not on filedocumented in this encounter Care Teams Mixed Livestock Farmer Relationship Specialty Start Date End Date Wendy Petit [address] [place] [phone] PCP - General Internal Medicine 03/17/25 Radhika Jose MD [address] [place] [address] Endocrinology 06/04/25 documented as of this encounter
--- OUTSIDE RECORDS SUMMARY | 2025-10-05 03:00 | EXTERNAL MEDICAL SUMMARY RPT | Encounter Summary ---
Author Organization [facility] Address [address] [place] [address] Phone Care Team Providers Care Reference Assistant Name Role Phone Diamante Yancey Primary Care Provider [phone] Wendy Petit Primary Care Provider [phone] Radhika Jose MD Unavailable [phone] Reason for Visit * Reason Onset Date Comments Scheduling 07/26/2024 Encounter Details Date Type Department Care Team (Late st Contact Info) Description 07/26/2024 Telephone [facility] [address] [place] [address] Pcp, Non Established Scheduling Social History Tobacco Use Types Packs/Day Years Used Date Smoking Tobacco: Never Smokeless Tobacco: Never Alcohol Use Standard Drinks/Week Comments Yes 0 (1 standard drink = 0.6 oz pur e alcohol) occ Comments Unknown Sex and Gender Information Value Date Recorded Sex Assigned at Not on file Legal Sex Female 1:38 PM PDT Gender Identity Not on file Sexual Orientation Not on file documented as of this encounter Miscellaneous Notes * Telephone Encounter - Sendy Zamudio - 08/06/2024 11:28 AM PDT Records [place] [facility] [place] includes: Office visit notes; labs; pathology; imaging; consult note; procedure report; Dates of Service: 02/15/22; 07/22/22; 10/12/22; 10/16/22; 12/13/22; 01/01/22; 01/02/22; Records sent to Scanning via [employer], and can also be found in the Incoming Records folder. GI MA: Postpone TE x 1 week. Once available in [facility], please forward to Adrian Winter MD to review. Patient will be establishing care with her 11/04/24. * Telephone Encounter - Sola Benitez MA - 08/02/2024 11:01 AM PDT Called [facility] and noticed the records are in [employer]ax. GI SELWYN: Once sent to [facility], please follow up and route to Dr. Winter once records are in chart. * Telephone Encounter - Sola Benitez MA - 07/31/2024 8:56 AM PDT Spoke with [facility] Medical Records department. He will be sending records over today. REEMA SAMANO: Please follow up on records. * Telephone Encounter - Sola Benitez MA - 07/29/2024 4:28 PM PDT Records request faxed to [facility] GI REEMA SAMANO: Please follow up on records. * Telephone Encounter - Adrian Winter MD - 07/29/2024 11:57 AM PDT Please obtain her medical records for her Crohn's disease to determine the urgency. Thanks! * Telephone Encounter - Sola Benitez MA - 07/29/2024 10:46 AM PDT Adrian Winter MD: Patient is scheduled for next available appointment with you. No sooner appointments available at this time. Please advise: OK to keep appointment as scheduled? Do you want to add patient onto your schedule? If so, where? Do you want to refer patient to [facility] GI?. Future Appointments Provider Department Center 11/04/2024 3:00 PM Adrian Winter MD [facility] * Telephone Encounter - Jana Frederick - 07/26/2024 4:29 PM PDT Patient called to schedule from referral Crohn's disease, unspecified, without complications. She has been scheduled for the first available provider appointment which is with Dr. Winter on 11/04/24. Patient states she is in the middle of crohn's flare up and would like to know if she can be seen any sooner. She did have an appointment scheduled with Dr. Nguyen for yesterday 07/25, however patient states she was unaware she ever had an appointment scheduled. Please advise if patient can be seen sooner. [phone] [facility] - Yes, please. Thank you. Future Appointments Provider Department Center 11/04/2024 3:00 PM Adrian Winter MD [facility] documented in this encounter Plan of Treatment Not on file documented as of this encounter Visit Diagnoses Not on filedocumented in this encounter Care Teams Reference Assistant Relationship Specialty Start Date End Date Diamante Yancey [address] [place] [address] PCP - General 04/13/20 03/16/25 Wendy Petit [address] [facility] [place] [address] PCP - General Internal Medicine 03/17/25 Radhika Jose MD [address] [place] [address] Endocrinology 06/04/25 documented as of this encounter
--- OUTSIDE RECORDS SUMMARY | 2025-10-05 03:01 | EXTERNAL MEDICAL SUMMARY RPT | Encounter Summary ---
Author Organization [facility] Address [address] [place] [address] Care Team Providers Care Physicians Assistant Name Role Phone Amy Yancey Unavailable [phone] Reason for Referral * Outpatient Service (Routine) - Authorized Specialty Diagnoses / Procedures Referred By Ambrose carter Referred To Contact Endocrinology Diagnoses Hypoglycemia, unspecified Procedures REF ENDOCRINOLOGY - EXTERNAL OFFICE/OUTPATIENT ESTABLISHED MOD MDM 30 MIN Jennifer Adams [facility] [address] [place] [address] Phone: tel: fax: Endocrinology, [facility] Referral ID Status Reason Start Date Expiration Date Visits Requested Visits Authorized [id number] Authorized Evaluate and Treat-Surgery if Indicated 01/08/2025 01/08/2026 6 6 Encounter Details Date Type Department Care Team (Late st Contact Info) Description 01/08/2025 Community Orders Non [facility] Provider Jennifer Adams [facility] [address] [place] [address] Hypoglycemia, unspecified (Primary Dx) Social History Tobacco Use Types [...] as of this encounter Visit Diagnoses Diagnosis Hypoglycemia, unspecified- Primary documented in this encounter Care Teams Physicians Assistant Relationship Specialty Start Date End Date Amy Yancey ARNP [facility] [address] [place] [address] Family Medicine 04/13/20 documented as of this encounter
--- OUTSIDE RECORDS SUMMARY | 2025-10-05 03:01 | EXTERNAL MEDICAL SUMMARY RPT | Encounter Summary ---
Author Organization [facility] Address [address] [place] [address] Phone Care Team Providers Care Technician Anatomic Pathology Name Role Phone Diamante YanceyMarii Primary Care Provider [phone] Wendy Petit Primary Care Provider [phone] Radhika Jose MD Unavailable [phone] Reason for Visit * Reason Onset Date Comments Request For Records 11/17/2022 Encounter Details Date Type Department Care Team (Late st Contact Info) Description 11/17/2022 Telephone [facility] [address], [address] [place] [address] Scott Sweeney MD [address] [place], [place] [phone] Request For Records Social History Tobacco Use Types Packs/Day Years [...] encounter Miscellaneous Notes * Telephone Encounter - Aurora Conrad MA - 11/17/2022 3:56 PM PST Aurora Conrad CMA / [facility] General Surgery. Called to [facility] Medical Records to request - Patient's Crohn's treatment - Ileoscopy Report ( done 2 months ago) - Notes - List of current medications. They will be faxing records today. Please keep an eye on the fax machine. Thank you! documented in this encounter Plan of Treatment Not on file documented as of this encounter Visit Diagnoses Not on filedocumented in this encounter Care Teams Technician Anatomic Pathology Relationship Specialty Start Date End Date NayeDiamanteMarii [address] [place] [address] PCP - General 04/13/20 03/16/25 Wendy Petit [address] [place] [phone] PCP - General Internal Medicine 03/17/25 Radhika Jose MD [address] [place] [address] Endocrinology 06/04/25 documented as of this encounter
--- OUTSIDE RECORDS SUMMARY | 2025-10-05 03:01 | EXTERNAL MEDICAL SUMMARY RPT | Encounter Summary ---
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 Procedures REF RADIOLOGY MYLOGRAPHY POSTERIOR FOSSA COMPLETE ECHOGRAPHY ABDOMEN BSCAN ECHOGRAPHY ABDOMEN LIMITED [facility] [address] [place] [address] Phone: tel: fax: [facility] [address] [address] [place] [address] Referral ID Status Reason Start Date Expiration Date Visits Requested Visits Authorized [id number] Authorized Itemized Services 01/13/2025 07/16/2025 4 4 * Outpatient Service (Routine) - Authorized Specialty Diagnoses / Procedures Referred By Ambrose carter Referred To Contact Neurology Diagnoses Impaired cognition Procedures REF NEUROLOGY - EXTERNAL OFFICE/OUTPATIENT ESTABLISHED MOD MDM 30 MIN [facility] [address] [place] [address] Phone: tel: fax: [facility] [address] [place] [address] Referral ID Status Reason Start Date Expiration Date Visits Requested Visits Authorized [id number] Authorized Evaluate and Treat-Surgery if Indicated 01/13/2025 01/13/2026 6 6 Encounter Details Date Type Department Care Team (Late st Contact Info) Description 01/13/2025 Community Orders Non [facility] Provider Jennifer Adams [facility] [address] [place] [address] Impaired cognition (Primary Dx); 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 Social History Tobacco Use Types Packs/Day Years Used Date Smoking Tobacco: Never Assessed Comments Unknown Sex and Gender Information Value Date Recorded Sex Assigned at Not on file Legal Sex Female 6:53 AM PST Gender Identity Not on file Sexual Orientation Not on file documented as of this encounter Plan of Treatment Not on file documented as of this encounter Visit Diagnoses Diagnosis Impaired cognition- Primary 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
--- OUTSIDE RECORDS SUMMARY | 2025-10-05 03:01 | EXTERNAL MEDICAL SUMMARY RPT ---
Author Organization [facility] Care Team Providers Care Jet Inspector Name Role Phone RAMONE NAVARRO Unavailable Unavailable JACQUELYN MUÑOZ Unavailable Unavailable LITO KOO Unavailable Unavailable LETICIA PATINO Unavailable Unavaila WILLIAM Cho Unavailable Unavailable Allergies and adverse reactions Code CodeSystem Substance Reaction Severity StartDate Concern Status 2551 RXNORM Ciprofloxacin Unknown 10/25/2023 active 8145 RXNORM Methocarbamol Unknown 10/25/2023 active Sulfamethoxazole /Trimetho prim Unknown 10/25/2023 active 83274 RXNORM Vancomycin Unknown 10/25/2023 active Care Team Name Role Address Phone Organization Dates WILLIAM GRACIA PCP [address], [place], [address], [place] (Office): : [employer] [facility] 10/26/2023 - 12/09/2023 RAMONE NAVARRO [address] , [place], [address], [facility] (Office): : [facility] 10/26/2023 - 12/09/2023 JACQUELYN MUÑOZ [address] , [place], [address], [facility] (Office): : [facility] 10/26/2023 - 12/09/2023 LITO KOO [address] , [place], [address], [facility] (Office): : [facility] 10/26/2023 - 12/09/2023 LETICIA PATINO [address] [place] [address], [address], [facility] (Office): [facility] 10/26/2023 - 12/09/2023 Immunizations Immunization Status Vaccine Details Vaccine Code CodeSystem Date Notes Influenza completed Influenza, high-dose, split virus, quadrivalent, injectable, preservative free lotNumber: [id number] expiry: 04/28/2024 Mfg: Flucelvax Quadrivalent Given 0.5 ml Right Deltoid intramuscularly 197 CVX created date: 3 consent date: 3 administe red date: 3 Rosette Leone TB 2 Step Mantoux Skin Test completed tuberculin skin test; unspecified formulation lotNumber: [id number] expiry: 09/29/2026 Mfg: Sanofi PastAeur Limitedited Given 0.1 ml Left Forearm intradermally Step 2 of Multi-step with next step required 98 CVX created date: 4 consent date: 4 administe red date: 4 administer by Sinan Almeida LPN TB 2 Step Mantoux Skin Test completed tuberculin skin test; unspecified formulation lotNumber: [id number] expiry: 09/29/2026 Mfg: appirisofi Pasteur Limited Given 0.1 ml Right Forearm [...] Loperamide HCl Oral Capsule 2 MG active 14844 6 RXNORM 1 capsu le Oral as needed PRN Give 1 capsu le by mouth every 8 hours as neede d for diarr hea 2022 - diarrhea Acetaminoph en Oral Tablet 500 MG active 73998 0 RXNORM 2 table t Oral every 8 hours Routin e Give 2 table t by mouth every 8 hours for pain relat ed to [facility] AFTER CARE (Z47. 89) Not to excee d 3 gm of total aceta [facility] 2022 - pain Nystatin External Cream 575519 UNIT/GM active 52104 6 RXNORM n/a n/a Topica l two times a day Routin e Apply to [facility] [place] [facility] two times a day for preve nt funga l infec tion 2022 - prevent fungal infection Ondansetron Oral Tablet Disintegrat ing 4 MG active 46929 4 RXNORM 1 table t Oral as needed PRN Give 1 table t by mouth every 6 hours as neede d for n/v 2022 - n/v Lidocaine External Patch 4 % active 84939 94 RXNORM n/a n/a Topica l every 12 hours Routin e Apply to [facility] [place] [facility] every 12 hours for pain relat ed to [facility] OTHER [facility]IC AFTER CARE (Z47. 89) and remov e per sched ule 2022 - pain Thiamine HCl Oral Tablet 100 MG active 37354 3 RXNORM 1 table t Oral one time a day Routin e Give 1 table t by mouth one time a day relat ed to ALCOH OL USE, UNSPE CIFIE D, UNCOM PLICA SOLANGE (F10. 90);T HIAMI NE DEFIC IENCY , UNSPE CIFIE D (E51. 9) 2022 - - Melatonin Oral Tablet 3 MG active 89852 3 RXNORM 1 table t Oral at [...] constip Gabapentin Oral Capsule 300 MG active 89034 1 RXNORM 1 capsu le Oral at bedtime Routin e Give 1 capsu le by mouth at bedti me for Neuro luis carlos 2023 - Neuropathy Losartan Potassium Oral Tablet 25 MG active 28896 5 RXNORM 2 table t Oral two times a day Routin e Give 2 table t by mouth two times a day for HOLD for SBP <100 relat ed to [facility] (PRIM ANA) HYPER TENSI ON (I10) 2023 - HOLD for SBP <100 Ferrous Sulfate Oral Tablet 325 (65 Fe) MG active 32395 5 RXNORM 1 table t Oral at [...] - anemia Lactobacill us Oral Capsule active 89202 RXNORM 1 unit Oral two times a [...] hydrALAZINE HCl Oral Tablet 10 MG active 37107 9 RXNORM 1 table t Oral two [...] information 2023 Code: 51 Code System OID:[id number] .060335.3.221. 5 Code System Name: Source of Payment Typology (PHDSC) Display: Managed Care (Private) Translation: Code: HM Code System: OID:2.16.840.1 .018787.6.255. 1336 Code System Name: Insurance Type Code ([id number]) Display Name: Health Maintenance Organization (HMO) Plan Code: SELF Code System Name: HL7 RoleCode Code System OID:2.16.840.1 .723538.5.111 Display Name: Juan Miguel [id number] Root: [id number] 1b5 Payer Name: [facility] Address: [place] [address] City: [place] State: [place] Country: [facility] 2023 Code: 349 Code System OID:2.16.840.1 .484395.3.221. 5 Code System Name: Source of Payment Typology (PHDSC) Display: Other Translation: Code: C1 Code System: OID:2.16.840.1 .201438.6.255. 1336 Code System Name: Insurance Type Code ([id number]) Display Name: Commercial Insurance Code: SELF Code System Name: HL7 RoleCode Code System OID:2.16.840.1 .912215.5.111 Display Name: Juan Miguel [id number] Root: [id number] 1b5 Payer Name: [facility] Address: [place] [address] City: [place] State: [place] Country: [facility] Problems Problem # Description Date of onset Resolved Date Code CodeSystem Concern Status 1 ABNORMAL RESULTS OF THYROID FUNCTION STUDIES 10/25/[address] active 2 ACUTE KIDNEY FAILURE, UNSPECIFIED 10/25/[address] active 3 ACUTE RESPIRATORY FAILURE, UNSPECIFIED WHETHER WITH HYPOXIA OR HYPERCAPNIA 10/25/[address] active 4 ALCOHOL USE, UNSPECIFIED, UNCOMPLICATED 10/25/[address] active 5 ANEMIA, UNSPECIFIED 10/25/[address] active 6 BACTEREMIA 10/25/[address] active 7 BRADYCARDIA, UNSPECIFIED 10/25/[address] active 8 CONSTIPATION, UNSPECIFIED 10/25/[address] active 9 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 10/25/[address] active 10 DELIRIUM DUE TO KNOWN PHYSIOLOGICAL CONDITION 10/25/[address] active 11 DYSPHAGIA, UNSPECIFIED 10/25/[address] active 12 ELEVATED BLOOD-PRESSURE READING, WITHOUT DIAGNOSIS OF HYPERTENSION 10/25/2010/25/[address] completed 13 ENCOUNTER FOR ATTENTION TO ILEOSTOMY 10/25/[address] active 14 ENCOUNTER FOR OTHER ORTHOPEDIC AFTERCARE 10/25/[address] active 15 ESSENTIAL (PRIMARY) HYPERTENSION 10/25/[address] active 16 EXTRADURAL AND SUBDURAL ABSCESS, UNSPECIFIED 10/25/[address] active 17 GENERALIZED SKIN ERUPTION DUE TO DRUGS AND MEDICAMENTS TAKEN INTERNALLY 10/25/[address] active 18 HYPEROSMOLALITY AND HYPERNATREMIA 10/25/[address] active 19 HYPOGLYCEMIA, UNSPECIFIED 10/25/[address] active 20 HYPOTENSION, UNSPECIFIED 10/25/[address] active 21 HYPOTHERMIA, SUBSEQUENT ENCOUNTER 10/25/[address] active 22 INSOMNIA, UNSPECIFIED 10/25/[address] active 23 INTRASPINAL ABSCESS AND GRANULOMA 10/25/20 23 10/25/[address] completed 24 IRRITABLE BOWEL SYNDROME, UNSPECIFIED 10/25/[address] active 25 METHICILLIN SUSCEPTIBLE STAPHYLOCOCCUS AUREUS INFECTION THE CAUSE OF DISEASES CLASSIFIED ELSEWHERE 10/25/[address] active 26 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[place], CERVICAL REGION 10/25/20283334009 SNOMED CT active 27 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[place], THORACIC REGION 10/25/20610942065 SNOMED CT active 28 OTHER CHRONIC PAIN 10/25/[address] active 29 OTHER INTERVERTEBRAL DISC DEGENERATION, LUMBAR REGION 10/25/[address] active 30 OTHER SPECIFIED DISORDERS OF MIDDLE EAR AND MASTOID, BILATERAL 10/25/[address] active 31 RESTLESSNESS AND AGITATION 10/25/[address] active 32 SEPSIS DUE TO METHICILLIN SUSCEPTIBLE STAPHYLOCOCCUS AUREUS 10/25/[address] active 33 SEVERE SEPSIS WITH SEPTIC SHOCK 10/25/[address] active 34 THIAMINE DEFICIENCY, UNSPECIFIED 10/25/[address] active 35 THROMBOCYTOPENIA, UNSPECIFIED 10/25/[address] active 36 UNSPECIFIED HEARING LOSS, BILATERAL 10/25/[address] active 37 UNSPECIFIED PROTEIN-CALORIE MALNUTRITION 10/25/[address] active 38 WERNICKE'S ENCEPHALOPATHY 10/25/[address] active Reason for Referral No Reasons for Referral Entered Social History Social History Observation Description Start Date End Date Code Code System Current Smoking Status Tobacco smoking consumption unknown 588702598 SNOMED CT Sex Assigned At Female 1960 04876-[address] [facility] Gender Identity Sexual Orientation Vital Signs Code Code System Vitals Name Values and Units Timing Information 9279-[address] [facility] Respiratory Rate Value=19.0 Units=/m in 12/09/2023 8462-[address] [facility] Blood Pressure-Diastolic Value=72 Un its=mmHg 12/09/2023 8480-[address] [facility] Blood Pressure-Systolic Ejaox=059 Un its=mmHg 12/09/2023 8310-[address] [facility] Body Temperature Value=97.3 Units= F 12/09/2023 8867-[address] [facility] Heart rate Value=56.0 Units=/min 07/2024 51510-[address] [facility] O2 % BldC Oximetry Value=99.0 Units= % 12/09/2023 53943-[address] [facility] Pain Level Value=2.0 12/09/2023 [facility]809[facility]5 [facility] Weight Value=93.2 Units=Lbs 0 06/2024 8302-[address] [facility] Height Value=58.0 Units=Inches 10/26/2023
--- OUTSIDE RECORDS SUMMARY | 2025-10-05 03:01 | EXTERNAL MEDICAL SUMMARY RPT | Encounter Summary ---
Author Organization [facility] Address [address] [place] [address] Phone Care Team Providers Care Heel Attacher Wood Name Role Phone Diamante YanceyMarii Primary Care Provider [phone] Wendy Petit Primary Care Provider [phone] Radhika Jose MD Unavailable [phone] Reason for Visit * Reason Onset Date Comments Surgery 11/30/2022 Encounter Details Date Type Department Care Team (Late st Contact Info) Description 11/30/2022 Telephone [facility] [address], [address] [place], [place] [id number] Scott Sweeney MD [address] [place], [place] [id number] Surgery Social History Tobacco Use Types Packs/Day Years [...] encounter Miscellaneous Notes * Telephone Encounter - Niki Galeana - 11/30/2022 11:35 AM PST Spoke with patient and scheduled surgery for 12/27/22. All preoperative instructions were reviewed and patient expressed understanding. Packet mailed. Closing TE. 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 Elective surgery: yes 11/30/22 11/30/22 2HR, PMG-PA ASSIST, COVID TEST ON 12/23/22 AT 11:30 AM. NIKI 11/23/2022 6:19 AM Carlos Morgan [phone] - Note DOS: TBD; Please check if the service has been scheduled and update referral accordingly. ACCESS PPO Coverage verified: Yes Does this plan require an insurance approved referral for OV to be seen at [facility]? No Patient class: Inpatient hospital (code 21) Pre-auth request for: CPT 88467 Case/Reference #: [id number] 11/23/22 Follow up type: Website KP: Request is Authorized: Auth #[id number] valid [id number] to [id number] documented in this encounter Plan of Treatment Not on file documented as of this encounter Results * ECG EPIC ORDER (12/14/2022 1:38 PM PST) Narrative [facility] - 12/14/2022 1:38 PM PST Result approved by Brennon Juarez MD on 12/14/22 us Valdemar Solano MD ECG ORDERABLES [place] [address] * (ABNORMAL) BASIC METABOLIC PANEL (12/14/2022 12:26 PM PST) Glucose 127(H) 65 - 99 mg/dL [facility] BUN 16 8 - 23 mg/dL [facility] Creatinine 0.52 0.44 - 1.03 mg/dL [facility] Sodium 136 135 - 148 mEq/L [facility] Potassium 3.6 3.5 - 5.3 mEq/L [facility] Chloride 108 98 - 111 mEq/L [facility] CO2 19(L) 22 - 33 mEq/L [facility] Calcium 9.1 8.5 - 10.3 mg/dL [facility] GFR >60 >=60 mL/min /1.73m Squared [facility] Comment: The calculated GFR result is based on the MDRD equation which is not directly comparable to the creatinine clearance estimation from other equations (such as the Cockcroft-Gault). For Americans, multiply the calculated GFR by 1.21. 12/14/2022 12:2 6 PM PST 12/14/2022 3:16 PM PST [facility] - 12/14/2022 5:15 PM PST Pre-Op Non-fasting patient Valdemar Solano MD CHEMISTRY ORDERABLES nal Result THE [address] [address] * (ABNORMAL) CBC WITH PLATELET AND DIFFERENTIAL (12/14/2022 12:26 PM PST) WBC 4.1(L) 4.5 - 10.0 K/uL [facility] RBC 3.76 3.70 - 5.10 M/uL [facility] Hgb 12.7 11.3 - 15.5 g/dL [facility] Hct 36.7 35.0 - 46.0 % [facility] MCV 97.7 80.0 - 100.0 fL [facility] MCH 33.7(H) 27.0 - 32.5 pg [facility] MCHC 34.5 32.0 - 36.0 g/dL [facility] Platelet Count 263 150 - 450 K/uL [facility] RDW 14.2 10.5 - 16.0 % [facility] Neutrophils 66 % [facility] Lymphocytes 23 % THE [facility] E[facility] Monocytes 8 % [facility] Eosinophil 2 % THE [facility] Basophil 1 % THE [facility] Absolute Neutrophils 2.7 1.5 - 7.5 K/uL [facility] Absolute Lymphocytes 0.9(L) 1.0 - 3.9 K/uL [facility] Absolute Monocytes 0.3 0.0 - 0.9 K/uL [facility] Absolute Eosinophils 0.1 0.0 - 0.5 K/uL [facility] Absolute Basophils 0.0 0.0 - 0.2 K/uL [facility] 12/14/2022 12:2 6 PM PST 12/14/2022 1:01 PM PST Narrative [facility] - 12/14/2022 5:15 PM PST Pre-Op Non-fasting patient us Valdemar Solano MD HEMATOLOGY ORDERABLES F inal Result [facility] [address] [place] [address] documented in this encounter Visit Diagnoses Diagnosis Parastomal hernia without obstruction or gangrene- Primary Hernia of unspecified site of abdominal cavity without mention of obstruction or gangrene Parastomal hernia without obstruction or gangrene Hernia of unspecified site of abdominal cavity without mention of obstruction or gangrene documented in this encounter Care Teams Heel Attacher Wood Relationship Specialty Start Date End Date Diamante Yancey [address] [place] [phone] PCP - General 04/13/20 03/16/25 Wendy Petit [address] [place] [address] PCP - General Internal Medicine 03/17/25 [place] [address] [place] [id number] Endocrinology 06/04/25 documented as of this encounter
--- OUTSIDE RECORDS SUMMARY | 2025-10-05 03:01 | EXTERNAL MEDICAL SUMMARY RPT | Encounter Summary ---
Author Organization [facility] Address [address] [place] [address] Phone Care Team Providers Care Flow Worker Name Role Phone [place]Wendy pelayo Primary Care Provider [phone] Radhika Jose MD Unavailable [phone] Encounter Details Date Type Department Care Team (Latest Contact Info) Description 06/05/2025 SCAN Clinical Documentation [facility] Provider, Generic 1 scan: MEDICATION LIST Social History Tobacco Use Types Packs/Day Years [...] on filedocumented in this encounter Care Teams Flow Worker Relationship Specialty Start Date End Date Wendy Petit [address] [place] [phone] PCP - General Internal Medicine 03/17/25 Radhika Jose MD [address] [address] Endocrinology 06/04/25 documented as of this encounter
== END 2025-10-02 20:53 | disposition home or self-care (01) ==
LOC: MS3 21:45 → ED 21:45 → MS3 10-02 03:27
PROVIDERS: ADMIT Hospitalist; ATTEND Hospitalist
DX: E03.9 Hypothyroidism, unspecified; E83.42 Hypomagnesemia; Z79.890 Hormone replacement therapy; K94.19 Other complications of enterostomy; Z79.899 Other long term (current) drug therapy; K50.90 Crohn's disease, unspecified, without complications; K56.601 Complete intestinal obstruction, unspecified as to cause